=== PATIENT | female | born 1955 | race Caucasian/White ===

== ENCOUNTER 2021-06-18 16:42 | Emergency (ER) | payer OTHER, SELFPAY ==
[2021-06-18] VITALS (9 sets, daily range): BP systolic 155–164; BP diastolic 77–87; PULSE 72–147; RESP 16–24; TEMP 36.7; O2SAT 92–100
--- NOTE | ~2021-06-18 | CT_ITS ---
EXAMINATION: CTA chest PE protocol EXAM DATE: 06/18/2021 18:23 INDICATION: SOB, elevated dimer, covid patient under investigation. TECHNIQUE: Spiral CTA of the chest (pulmonary arteries) was performed with 100 cc Omnipaque 350 intr avenous contrast injection. Images were acquired during the pulmonary arterial phase. Coronal maxi mum intensity projection 3D-reconstructions were created by the technologist on dedicated workstation . Axial, coronal and sagittal reformatted images were reviewed. The dose-length product (DLP) for t his examination was 351.81 mGy-cm. The exposure was tailored according to patient size (auto mA exp osure control), and iterative reconstruction (ASIR) was used as additional dose reduction technique. There is no prior study for comparison. FINDINGS: Pulmonary arteries are well opacified and without intraluminal filling defects. No thora cic aortic dissection. There are sternotomy wires. There is anterior mediastinal fluid density region , some adjacent surgical clips. Probably chronic postoperative seroma. There is 5 mm left lower lobe nodule, image 66. There are no pleural or pericardial effusions. Tracheobronchial tree is patent. There is no mediastinal, hilar or axillary lymphadenopathy. There is no pneumothorax. Heart norm al in size. There is mild coronary arterial calcification, arterial sclerosis. There are cholecyst ectomy clips. There is thoracic spondylosis without osteoblastic or osteolytic lesions identified. IMPRESSION: 1. Left lower lobe 5 mm nodule; consider 6-12 month follow-up chest CT. 2. No pulmonary emboli or acute findings. Reviewed, dictated and finalized at location A. ICULTURIST
--- NOTE | ~2021-06-18 | XR_ITS ---
EXAMINATION: XR lumbar spine 2-3V EXAM DATE: 06/18/2021 18:34 INDICATION: Pulled Muscle In Back Thurs, Pain When Moving/Laying Back . TECHNIQUE: Lumber spine frontal, lateral, lateral L5-S1 projections for interpretation. There is no prior study for comparison. FINDINGS: There is L1 mild acute compression fracture at the superior endplate. Mild lumbar disc dise ase and up to moderate facet arthropathy. Contrast within the collecting system. There are cholecyste ctomy clips. IMPRESSION: 1. Mild acute compression fracture L1. 2. Mild disc disease, moderate arthropathy. Reviewed, dictated and finalized at location A. ANICAL PRODUCT ENGINEER
--- NOTE | ~2021-06-18 | XR_ITS ---
EXAMINATION: XR chest 1V portable EXAM DATE: 06/18/2021 17:34 INDICATION: Pt Has A Hard Time Breathing, exposed To COVID +. TECHNIQUE: Portable AP frontal chest x-ray was obtained. There is no prior study for comparison. FINDINGS: Pacemaker/AICD device. Sternotomy wires. No confluent consolidation, pneumothorax or pleura l effusion suspected. The cardiomediastinal silhouette is prominent but magnified on this AP techniqu e. IMPRESSION: No acute cardiopulmonary findings. Follow-up can be obtained if symptoms persist. Reviewed, dictated and finalized at location A. MENTAL METAL ERECTOR APPRENTICE IMPRESSION: No acute cardiopulmonary findings. Follow-up can be obtained if sym ptoms persist.
--- NOTE | 2021-06-18 16:55 | ECG_ITS ---
Measurements Intervals [place] Rate: 72 P: 48 MD: 139 QRS: -13 QRSD: 134 T: 115 QT: 458 QTc: 502 Interpretive Statements ATRIAL SENSE- ELECTRONIC VENTRICULAR PACEMAKER BASELINE ARTIFACT- II, III, AVR, AVF, V1, V3-V6 NO FURTHER INTERPRETATION IS POSSIBLE ATYPICAL ECG Electronically Signed On 06-18-2021 17:05:44 NEIGHBORHOOD WORKER by Stoney Ziegler D.O.
[2021-06-18 17:37] LABS: Basophils Absolute Auto 0.1 K/mm3 (0.0-0.1); Basophils Percent Auto 0.9 % (0.2-1.2); Eosinophils Absolute Auto 0.1 K/mm3 (0-0.3); Eosinophils Percent Auto 2.6 % (0-4.4); Hematocrit 32.2 % (37.0-47.0); Hemoglobin 10.2 g/dL (12.0-15.0); Immature Granulocyte Absolute 0.02 K/mm3 (0.00-0.031); Immature Granulocyte Percent A 0.4 % (0-0.5); Lymphocytes Absolute Auto 1.27 K/mm3 (0.9-3.2); Lymphocytes Percent Auto 23.3 % (18.3-44.2); Mean Corpuscular HGB Conc 31.7 g/dl (32-36); Mean Corpuscular Hemoglobin 27.3 pg (26-34); Mean Corpuscular Volume 86.1 fl (80-100); Mean Platelet Volume 11.1 fl (7.4-10.4); Monocytes Absolute Auto 0.5 K/mm3 (0.1-0.6); Neutrophils Absolute Auto 3.5 K/mm3 (1.3-6.7); Neutrophils Percent Auto 63.8 % (45.5-73.1); Platelet Count Result 207 k/mm3 (150-375); Red Blood Count 3.74 M/mm3 (4.2-5.4); Red Cell Distribution Width 14.8 % (11.5-14.5); White Blood Count 5.5 K/mm3 (4.5-10.0)
--- NOTE | 2021-06-18 17:39 | ED.SOB ---
HPI - SOB/Dyspnea General Chief Complaint: Shortness of Breath/Dyspnea Stated Complaint: wheezing and back pain Time Seen by Provider: 06/18/21 16:54 Source: patient Mode of arrival: ambulatory Limitations: no limitations History of Present Illness HPI Narrative: This is a 66-year-old female that presents to the emergency department for cold symptoms present over the last couple of days. Reports fever, cough and congestion. Reports her son recently tested positive for Covid. She is Covid vaccinated. Also reports she has been feeling short of breath and wheezing. Reports low back pain ongoing over the last week. No known recent trauma. Reports it started after lifting something. Worse with movement and relieved with rest. She has been taking Tylenol with some relief. Denies fever, chest pain, lower extremity edema, numbness, or weakness. Related Data Allergies Allergy/AdvReac Type Severity Reaction Status Date / Time acetaminophen [From Vicodin] Allergy Itching Verified 06/18/21 17:11 hydrocodone [From Vicodin] Allergy Itching Verified 06/18/21 17:11 atropine AdvReac Dizziness Verified 06/18/21 17:11 Sulfa (Sulfonamide AdvReac Vomiting Verified 06/18/21 17:11 Antibiotics) Review of Systems Review of Systems: CONSTITUTIONAL: Denies fever CARDIOVASCULAR: Denies chest pain, or edema. RESPIRATORY: Reports cough and dyspnea. MUSCULOSKELETAL: Reports back pain, joint pain, and myalgia. NEUROLOGIC: Denies numbness, or weakness. All systems reviewed & are unremarkable except as noted in HPI and below PMFSH Past Medical History Medical History (Updated 06/18/21 @ 20:44 by Abigail Hernandez PA-C) History of cardiac pacemaker Social History Social History (Updated 06/18/21 @ 20:34 by Abigail Hernandez PA-C) Smoking status: Current every day smoker Exam Narrative: GENERAL: Well-appearing, well-nourished, and in no acute distress. HEAD: Normocephalic, atraumatic. EYES: EOMI. ENT: Nares clear, no rhinorrhea or epistaxis. Mucous membranes moist. Oropharynx without tonsillar hypertrophy exudate or other lesions. Bilateral TMs pearly lieberman non-bulging NECK: Supple. No adenopathy or masses. CHEST: Clear to auscultation. No respiratory distress. No wheezes rales or rhonchi HEART: Regular rate and rhythm. No murmur heard. Normal peripheral pulses. EXTREMITIES: Normal range of motion. No edema. Strength equal in bilateral lower extremities (5/5) SKIN: Warm, dry, no rash. NEURO: No focal deficits. Alert and oriented x3. PSYCH: Normal mood and affect Course Vital Signs Vital signs: Vital Signs Temperature 98.1 F 06/18/21 16:48 Pulse Rate 72 06/18/21 16:48 Respiratory Rate 16 06/18/21 16:48 Blood Pressure 155/87 H 06/18/21 16:48 Pulse Oximetry 100 06/18/21 16:48 Temperature 98.1 F 06/18/21 16:48 Pulse Rate 105 H 06/18/21 19:47 Respiratory Rate 24 H 06/18/21 20:01 Blood Pressure 160/84 H 06/18/21 19:31 Pulse Oximetry 96 06/18/21 20:01 MDM - SOB/Dyspnea MDM Narrative Medical decision making narrative: This is a 66-year-old female that presents to the emergency department for cold symptoms present over the last couple of days. Also reporting low back pain. No recent trauma. She is neurovascularly intact. She is afebrile and nontoxic-appearing. Vitals are stable. Oxygen saturation is remained normal on room air. CBC shows normocytic anemia with hemoglobin of 10.2. Metabolic panel without concerning findings. Influenza screen was negative. SARS-CoV-2 was sent. D-dimer was elevated, so CTA of the chest was obtained. This was without evidence of PE or acute cardiopulmonary abnormality. Does show a 5 mm left lower lobe nodule. Recommend 6 to 12-month follow-up with CT chest. Lumbar spine x-ray shows a mild acute compression fracture of L1. Patient was updated on case findings. She was instructed on continued care of viral infection. Will be given pain management for follow-up of c
[2021-06-18] MEDS: ALBUTEROL SULFATE (*SP) AEROSOL 1 PUFF 2 PUFF INHALATION (17:44)
[2021-06-18 17:48] LABS: INR 1.2; Prothrombin Time 14.6 Seconds (11.1-14.7)
[2021-06-18 17:50] LABS: Lactic Acid Reflex 0.9 mmol/L (0.7-2.1)
[2021-06-18 17:51] LABS: D Dimer 0.82 ug/mL (<0.48)
[2021-06-18 17:53] LABS: Alanine Aminotransferase 35 U/L (4-35); Albumin Level 4.1 g/dL (3.5-5.1); Alkaline Phosphatase 112 U/L (38-126); Anion Gap 11 mmol/L (8-16); Aspartate Amino Transferase 32 U/L (14-36); Bilirubin,Total 0.2 mg/dL (0.2-1.3); Blood Urea Nitrogen 11 mg/dL (7-17); CRP 2.6 mg/dL (<1.0); Calcium 9.1 mg/dL (8.4-10.2); Carbon Dioxide 21 mmol/L (22-30); Chloride 106 mmol/L (98-107); Estimated CRCL calculation 57 ml/min; Estimated Glomerular Filt Rate > 60; Glucose 103 mg/dL (65-110); Lactate Dehydrogenase 579 U/L (313-618); Potassium 3.7 mmol/L (3.4-5.0); Sodium 138 mmol/L (137-145)
[2021-06-18] MEDS: CYCLOBENZAPRINE HCL 10 MG TABLET PO (18:49)
--- NOTE | 2021-06-18 19:11 | PC.NURSE ---
Report to MARIA DE JESUS Fried, to continue care.
--- NOTE | 2021-06-18 20:22 | PC.NURSE ---
per Abigail RESENDIZ pts heart rate of 147 that was charted prior to my shift was inaccurate.
[2021-06-18] MEDS: HYDROcodone/acetaminophen (*CRX) 5-325 MG TABLET 1 TAB PO (20:59)
[2021-06-20 14:20] LABS: SARS-CoV-2 RNA PCR Positive
== END 2021-06-18 21:27 | disposition home or self-care (01) ==
PROVIDERS: Physician Assistant; Emergency Provider Emergency Medicine
DX: U07.1 COVID-19 (principal); S32.010A Wedge compression fracture of first lumbar vertebra, initial encounter for closed fracture; R91.1 Solitary pulmonary nodule; Z95.0 Presence of cardiac pacemaker; X50.0XXA Overexertion from strenuous movement or load, initial encounter
CPT/HCPCS: 36415; 71045; 71275; 72100; 80053; 82728; 83605; 83615; 85025; 85380; 85610; 85730; 86140; 87804; 93005; 99284; A9270; C9803; Q9967; U0003; U0005

== ENCOUNTER → 2021-07-07 13:18 | Outpatient (CLI) | payer OTHER, SELFPAY ==
--- NOTE | ~2021-07-07 | CT_ITS ---
EXAMINATION: CT lumbar spine wo narayan EXAM DATE: 07/07/2021 13:36 INDICATION: Closed fracture of first lumbar vertebra, other low back pain. TECHNIQUE: Spiral CT lumbar spine was performed without contrast. Axial, coronal and sagittal images of the lumbar spine were reviewed. The dose-length product (DLP) for this examination was 817.10 mGy- cm. The exposure was tailored according to patient size (auto mA exposure control), and iterative re construction (ASIR) was used as additional dose reduction technique. There is no prior study for cherie richards. FINDINGS: There is mild to moderate burst fracture of the L1 vertebral body at the superior endplate, appears to have lost a few more millimeters of height anteriorly compared to previous exam, and evid ence of posterior cortex involvement, but only about 2 mm of retropulsion along the right side. There is sclerosis of the fracture site indicating some reparative response. No other fractures identified . The vertebral bodies are aligned in the AP dimension. Moderate lumbar facet arthropathy at L4-5 and L5-S1, mild at the upper lumbar levels. L5-S1 has moderate bilateral neural foraminal stenosis, no m ore than mild stenosis at the other lumbar levels and the central canal. Mild disc bulges. Sacrum is intact. IMPRESSION: 1. Mild progression in mild to moderate loss of L1 vertebral body height anteriorly, and minimal retr opulsion making this burst type fracture. Development of mild sclerosis, some reparative healing resp onse. 2. L5-S1 moderate bilateral neural foraminal stenosis. Reviewed, dictated and finalized at location A. ICAL RESOURCE MANAGER IMPRESSION: 1. Mild progression in mild to moderate loss of L1 vertebral body height anteri lawrence, and minimal retropulsion making this burst type fracture. Development of mild sclerosis, some reparative healing response. 2. L5-S1 moderate bilateral neural foraminal stenosis.
== END ==
PROVIDERS: Visit Provider Nurse Practitioner Family
DX: S32.019A Unspecified fracture of first lumbar vertebra, initial encounter for closed fracture (principal); X58.XXXA Exposure to other specified factors, initial encounter
CPT/HCPCS: 72131

== ENCOUNTER 2021-09-14 00:17 | Day surgery (SDC) | payer OTHER, SELFPAY ==
[2021-09-13 14:03] VITALS: BMI 28.4
[2021-09-14 07:35] VITALS: BP 149/72; PULSE 60; RESP 16; TEMP 36.4; O2SAT 97; BMI 29.0
--- NOTE | 2021-09-14 08:37 | WPDANESEPPF ---
Anes - Initial Pre Proc Eval Procedure: Operation Date: 09/14/21 08:30 Proposed Procedures p Trans Esophageal Echo - Vic Sal MD Date/Time: 09/14/21 08:37 Surgeon: Vic Sal MD Pre Op Diagnosis: severe prosthetic av stenosis Patient Data Age: 66 Gender: F Height: 1.57 m Weight: 71.9 kg Last Vital Signs Temp 36.4 C L 09/14/21 07:35 Pulse 60 09/14/21 07:35 Resp 16 09/14/21 07:35 BP 149/72 H 09/14/21 07:35 Pulse Ox 97 09/14/21 07:35 Allergies Allergy/AdvReac Type Severity Reaction Status Date / Time hydrocodone [From Vicodin] Allergy Itching Verified 09/14/21 07:25 atropine AdvReac Dizziness Verified 09/14/21 07:25 Sulfa (Sulfonamide AdvReac Vomiting Verified 09/14/21 07:25 Antibiotics) Home Medications Medication Instructions Recorded Confirmed Type apixaban [Eliquis] 5 mg PO DAILY 09/13/21 09/14/21 History carvedilol 12.5 mg PO DAILY 09/13/21 09/14/21 History cyclobenzaprine 10 mg PO PRN PRN 09/13/21 09/13/21 History fluticasone propionate [Flonase] 50 mcg INTRANASAL DAILY 09/13/21 09/14/21 History furosemide 20 mg PO DAILY 09/13/21 09/14/21 History lisinopril 5 mg PO DAILY 09/13/21 09/14/21 History pantoprazole 40 mg PO DAILY 09/13/21 09/14/21 History rosuvastatin 40 mg PO DAILY 09/13/21 09/14/21 History fluoxetine 30 mg PO DAILY 09/14/21 09/14/21 History Patient hx anesthesia problems: none Family hx anesthesia problems: none Results Review: All pre-operative results and documents have been reviewed as part of the pre-operative evaluation. COUNTS INCLUDE 234 BEDS AT THE [facility] Past Medical History Medical History (Updated 09/14/21 @ 08:40 by Star Stone MD) Atrial fibrillation Cardiomyopathy History of cardiac pacemaker HTN (hypertension) Hyperlipidemia Overweight (BMI 25.0-29.9) Pacemaker Surgical History Surgical History (Updated 09/14/21 @ 08:40 by Star Stone MD) AICD (automatic cardioverter/defibrillator) present S/P AVR (aortic valve replacement) Social History Social History (Updated 06/18/21 @ 20:34 by Abigail Hernandez PA-C) Smoking status: Current every day smoker Anes - Eval Final PreProcedure Day of Procedure 09/14/21 08:37 Patient weight: overweight Heart: regular rate and rhythm Lungs: clear to auscultation and normal air movement Airway: Mallampati scale class II Neurological: alert and oriented Last oral intake: >/= 8 hours ASA classification: IV Emergent: no Anesthetic plan: proceed Anesthesia type and monitoring: general GIVS Results Review: All pre-operative results and documents have been reviewed as part of the pre-operative evaluation. Informed Consent: The patient's anesthetic plan and its attendant risks and benefits were discussed with the patient/family/POA. Questions were solicited and answers provided to the satisfaction of the patient/family/POA.
--- NOTE | 2021-09-14 09:09 | SUR.OPER ---
bubble study performed during NEVAEH
--- NOTE | 2021-09-14 09:16 | SUR.OPER ---
NEVAEH probe out at [id number], procedure continued with surface echocardiogram. Anesthesia remains at bedside providing monitoring and assistance with respirations.
[2021-09-14 09:32] VITALS: BP 105/51; PULSE 74; RESP 18; O2SAT 98
[2021-09-14 09:42] VITALS: BP 92/43; PULSE 90; RESP 14; O2SAT 96
--- NOTE | 2021-09-14 09:46 | WPDHPUPDATE1 ---
History and Physical Update Update Date/Time: 09/14/21 08:30 History and Physical has been reviewed, including an updated exam of the patient. There are NO changes in the patient's condition. Risks, benefits, and alternatives have been discussed and questions answered. Patient agrees to proceed with procedure.
--- NOTE | 2021-09-14 09:47 | WPDTEECHO ---
NEVAEH TransEsophageal Echocardiogram Date of procedure: 09/14/21 Procedure Type: Transesophageal echocardiogram Diagnosis: Shortness of breath, prosthetic aortic valve stenosis Indications: Shortness of breath, prosthetic aortic valve stenosis Image Quality: Acceptable Findings: Brief history present illness: Patient is a pleasant 66-year-old female with a past medical history significant for bicuspid aortic valve stenosis status post 21 mm Inspiris Resilia bioprosthetic aortic valve in 2019, LBBB, nonischemic cardiomyopathy status post biventricular pacemaker, history of tobacco abuse, hypertension, hyperlipidemia who recently established care with complaints of shortness of breath found to have an abnormal murmur on exam for which a 2D echocardiogram was obtained. Abnormal velocities were appreciated with 4.9 m/sec mean gradient 54 mm Hg calculated valve area 0.8 centimeters squared. Upon return to the office she complained of worsening shortness of breath, fatigue decreased activity tolerance for which she was referred for transesophageal echocardiogram for further evaluation. Procedure in detail: After verbal and written informed consent was obtained the patient risks, benefits, and alternatives explained in detail the patient agreed to proceed with the plan of care as outlined above. The patient was evaluated at bedside in the gastroenterology procedure room. The posterior oropharynx, neck, and jaw angle all within normal limits on examination. Lungs were clear to auscultation. See pre-sedation note for further details The patient was then placed in the appropriate 30 to 45 degree angle supine position at a slight left lateral decubitus position. Patient was monitored throughout the study with telemetry, oxygen saturation, end-tidal CO2 monitoring, blood pressure, heart rate, and respirations. The posterior hypopharynx was then locally anesthetized using a single administration of Hurricaine spray. After the oral bite block placed and adequate sedation administered by Anesthesiology, the transesophageal echocardiogram probe was advanced through the oral bite block into the posterior hypopharynx and into the esophagus easily and without complication. Multiple, multiplanar echocardiographic images were obtained in multiple standard re- projections. Pulsed wave, continuous-wave, and color-flow Doppler were utilized in conjunction with this study. At the conclusion of the study, the transesophageal echocardiogram probe was removed easily and without complication. Patient was in ventricular paced rhythm with intermittent AV paced. Please see Anesthesiology documentation for further details. Moderate Sedation/Anesthesia administration: Patient reports no prior problems with sedation/anesthesia. Please see Anesthesiology documentation for details and protocols. There were no other issues or complications and patient tolerated the procedure well. See post-anesthesia documentation. FINDINGS: LEFT VENTRICLE: Size was within normal limits without significant wall motion abnormalities. Hyperdynamic LV systolic function with visually estimated ejection fraction of 75%. Mild to moderate concentric left ventricular hypertrophy. RIGHT VENTRICLE: Size and systolic function within normal limits. Linear artifact in right ventricle consistent with pacemaker lead. LEFT ATRIUM: Mild enlargement. RIGHT ATRIUM: Normal size. Linear artifact consistent with pacemaker lead. Remnant eustachian valve noted, normal variant. INTERATRIAL SEPTUM: Interatrial septum is anatomically normal without evidence of shunt with color-flow Doppler nor with injection of agitated saline with and without Valsalva. Late crossing of bubbles consistent with extracardiac shunt. MITRAL VALVE: Mitral valve is anatomically normal with preserved leaflet excursion, mild thickening, [id number] mitral annular calcification, and moderate regurgitation. AORTIC VALVE: Bioprosthetic va
[2021-09-14 09:52] VITALS: BP 105/52; PULSE 90; RESP 16; O2SAT 98
[2021-09-14 10:02] VITALS: BP 134/66; PULSE 60; RESP 19; O2SAT 96
[2021-09-14 10:12] VITALS: BP 135/76; PULSE 60; RESP 20; O2SAT 96
== END 2021-09-14 11:12 | disposition home or self-care (01) ==
PROVIDERS: Visit Provider Internal Medicine Cardiovascular Disease
PROC: (CPT 93312; principal; 2021-09-14 08:30)
DX: I35.0 Nonrheumatic aortic (valve) stenosis (principal); R06.02 Shortness of breath; I34.0 Nonrheumatic mitral (valve) insufficiency; I36.1 Nonrheumatic tricuspid (valve) insufficiency; I48.0 Paroxysmal atrial fibrillation; I27.20 Pulmonary hypertension, unspecified; E78.2 Mixed hyperlipidemia; I25.10 Atherosclerotic heart disease of native coronary artery without angina pectoris; I11.0 Hypertensive heart disease with heart failure; I50.20 Unspecified systolic (congestive) heart failure; Z95.0 Presence of cardiac pacemaker; Z95.2 Presence of prosthetic heart valve; Z79.01 Long term (current) use of anticoagulants; F17.210 Nicotine dependence, cigarettes, uncomplicated
CPT/HCPCS: 93312; 93320; 93325; J2704

== ENCOUNTER 2022-01-18 13:27 | Inpatient (IN) | payer MEDICARE, OTHER, SELFPAY ==
--- NOTE | ~2022-01-18 | CT_ITS ---
EXAMINATION: CT abdomen pelvis wo con DATE: 01/24/2022 08:23 INDICATION: Nausea and vomiting. TECHNIQUE: Computed tomography (CT) of the abdomen and pelvis was performed without intravenous contr ast. Automated exposure control and iterative reconstruction technique were employed. The dose-length product was 505.47 mGy-cm. COMPARISON: Chest CT 06/18/2021 FINDINGS: There is mild emphysema. There are trace right and small left pleural effusions. There is d ependent atelectasis bilaterally. The heart size is normal. There are pacer wires in right atrium, ri ght ventricle, and coronary sinus. There is a small pericardial effusion. There are changes of median sternotomy. The liver is normal. There are changes of cholecystectomy. There is a gastrostomy tube i n expected position. The spleen, pancreas, adrenal glands, and kidneys are normal. There is no urolit hiasis. No dilated loops of bowel. There is diverticulosis of the colon without evidence of diverticu litis. The appendix is normal. There are no pathologically enlarged lymph nodes. There is trace pelvi c ascites. There is a 7.3 x 5.8 cm hematoma superficial to left common femoral artery. There is a sma ll hematoma superficial to right common femoral artery. There is a 12 mm subcutaneous mass in left an terior abdomen, likely an injection site. There is a chronic burst fracture of L1 with changes of carline tebroplasty. IMPRESSION: 1. Small left pleural effusion. 2. Small pericardial effusion. 3. Hematomas superficial to the common femoral arteries, left larger than right. Reviewed, dictated and finalized at location A. IMPRESSION: 1. Small left pleural effusion. 2. Small pericardial effusion. 3. Hematomas superficial to the common femoral arteries, left larger than right .
[2022-01-18 13:30] VITALS: BP 160/91; PULSE 85; RESP 18; TEMP 36.6; O2SAT 97
--- NOTE | 2022-01-18 13:30 | ADMGEN ---
This patient, Kendal Junior, was admitted to 2nd Floor Room 207-2. Patient/family oriented to hospital policies and general routines including ID bracelet, bed and alarms, visiting hours, pain management, procedures, bathroom and other care routines, personal items, smoking policy, room service/diet, and visiting hours. Information on how to activate the Rapid Response Team has been discussed. Patient/Family are encouraged to report perceived risks to care and to ask questions if they do not understand what they are told or what they should do.
[2022-01-18 14:33] VITALS: BMI 28.6
--- NOTE | 2022-01-18 15:13 | ECG_ITS ---
Measurements Intervals [place] Rate: 85 P: 150 ME: 204 QRS: -25 QRSD: 114 T: 128 QT: 397 QTc: 473 Interpretive Statements ELECTRONIC ATRIAL PACEMAKER ELECTRONIC VENTRICULAR PACEMAKER BASELINE ARTIFACT- I, II, NO FURTHER INTERPRETATION IS POSSIBLE ATYPICAL ECG Electronically Signed On 01-18-2022 19:49:22 CDT by Stoney Ziegler D.O.
--- NOTE | 2022-01-18 17:24 | PC.NURSE ---
Pt arrived from transferring facility with two IV's. One in left hand dated 12/19 and one in left wrist dated 12/17. Both were removed at admission.
[2022-01-18] MEDS: SENNOSIDES 8.6 MG TABLET PO (17:37)
[2022-01-18] MEDS: WARFARIN (*PBKC) 2.5 MG TABLET PO (17:38)
[2022-01-18 20:46] VITALS: PULSE 78
[2022-01-18] MEDS: carvediloL 3.125 MG TABLET PO (20:46)
[2022-01-18] MEDS: traZODone HCL 50 MG TABLET PO (20:46)
[2022-01-18] MEDS: guaiFENesin 12 HR 600 MG TABCR PO (20:47)
[2022-01-18] MEDS: MIRTAZAPINE 7.5 MG TABLET PO (20:47)
[2022-01-18 23:37] VITALS: BP 141/65; PULSE 84; RESP 16; TEMP 36.7; O2SAT 98
[2022-01-19] VITALS (7 sets, daily range): BP systolic 151–165; BP diastolic 78–84; PULSE 85–86; RESP 16; TEMP 36.6–37; O2SAT 96–99
[2022-01-19 05:10] LABS: Hematocrit 31.3 % (35.0-42.0); Hemoglobin 9.7 g/dL (11.7-13.8); Mean Corpuscular Hemoglobin 30.9 pg (27.0-31.0); Mean Corpuscular Volume 99.7 fL (78.0-102.0); Mean Platelet Volume 9.7 fl (9.2-11.8); Platelet Count Result 208 K/mm3 (150-420); Red Blood Count 3.14 M/mm3 (4.20-5.40); Red Cell Distribution Width 15.7 % (11.6-14.4); White Blood Count 5.9 K/mm3 (4.8-10.8)
[2022-01-19 05:23] LABS: INR 2.1; Prothrombin Time 21.3 Seconds (9.50-12.10)
[2022-01-19 05:46] LABS: Alanine Aminotransferase 24 U/L (14-59); Albumin Level 2.6 g/dL (3.4-5.0); Alkaline Phosphatase 91 U/L (46-116); Anion Gap 4 mmol/L (8-16); Aspartate Amino Transferase 14 U/L (15-37); Bilirubin,Total 0.3 mg/dL (0.00-1.00); Blood Urea Nitrogen 10 mg/dL (7-18); Calcium 8.9 mg/dL (8.5-10.1); Carbon Dioxide 33 mmol/L (21-32); Chloride 104 mmol/L (98-108); Estimated CRCL calculation 67 ml/min; Estimated Glomerular Filt Rate > 60; Glucose 82 mg/dL (70-99); Magnesium 1.9 mg/dL (1.8-2.4); Osmolality Calculated 290 mOsm/kg (285-295); Potassium 3.8 mmol/L (3.5-5.1); Sodium 141 mmol/L (136-145); Total Protein 6.5 g/dL (6.4-8.2)
[2022-01-19] MEDS: SERTRALINE HCL 50 MG TABLET 100 MG PO (08:24)
[2022-01-19] MEDS: SENNOSIDES 8.6 MG TABLET PO ×2 (08:25→17:09)
[2022-01-19] MEDS: AMIODARONE HCL 200 MG TABLET PO (08:25)
[2022-01-19] MEDS: PANTOPRAZOLE 40 MG TABLET PO (08:26)
[2022-01-19] MEDS: SPIRONOLACTONE 25 MG TABLET PO (08:26)
[2022-01-19] MEDS: carvediloL 3.125 MG TABLET PO (08:27)
[2022-01-19] MEDS: guaiFENesin 12 HR 600 MG TABCR PO ×2 (08:27→21:25)
--- NOTE | 2022-01-19 09:59 | PM.IMHP ---
H&P: HPI History of Present Illness Date/Time: 01/19/22 09:59 Chief Complaint: Rehab Narrative: This is a 67-year-old female that presented to [facility] for surgical evaluation of aortic stenosis. Patient has a past medical history of previous aortic valve replacement done in 2019,, A. fib, left bundle block branch, dyslipidemia, and tobacco abuse. Dr. Moore completed a redo sternotomy, mechanical composite root replacement w/ IABP insertion. Patient was later intubated and placed on vasopressors. Afterwards she had V. fib arrest which required 3 defibrillations. A bedside NEVAEH demonstrated severe right ventricle dysfunction. At that time she was taken to the cardiac cath she was cannulated on VA ECMO in the Editorial Project Manager. PCI was unsuccessful. She was then taken back to the OR for CABG x1, SVG to RCA. Postoperative she developed complications by hemorrhagic shock requiring multiple transfusion and chest washouts. She also developed severe mitral regurgitation postoperatively VA ECMO was converted toR-ECMO. Most recent NEVAEH on 12/11/2021 demonstrated normal biventricular systolic function with grade 3/4 diastolic dysfunction. She was also treated for Moraxella pneumonia with a 14-day course of Rocephin which was completed on 12/16/2021 she also underwent a washout in the right groin due to fluid collection on 12/12/2021.. During her hospital stay patient was pegged and trached. Her trach site has closed off she continues to have the PEG which is not being used. Labs from the outside hospital WBC 7.4 hemoglobin 9.8, hematocrit 31.1, platelets 219, INR 2.4, sodium 137, potassium 4.1, BUN 10, creatinine 0.56, glucose 100 [facility] Past Medical History Medical History (Updated 01/19/22 @ 10:39 by DEBBI North-C) Atrial fibrillation Cardiomyopathy History of cardiac pacemaker HTN (hypertension) Hyperlipidemia Overweight (BMI 25.0-29.9) Pacemaker Surgical History Surgical History (Updated 09/14/21 @ 08:40 by Star Stone MD) AICD (automatic cardioverter/defibrillator) present S/P AVR (aortic valve replacement) Social History Social History (Updated 06/18/21 @ 20:34 by Abigail Hernandez PA-C) Smoking status: Former smoker Alcohol intake: current Substance use: current Substance use type: marijuana Spiritual care concerns: No Meds Home Medications and Allergies Home Medications Medication Instructions Recorded Confirmed Type pantoprazole 40 mg tablet,delayed 40 mg PO DAILY 09/13/21 01/18/22 History release acetaminophen 325 mg tablet 650 mg Q6-8H PRN Pain, Mild 01/18/22 01/18/22 History amiodarone 200 mg tablet 200 mg PO DAILY 01/18/22 01/18/22 History benzonatate 100 mg capsule 100 mg PO TID PRN Cough 01/18/22 01/18/22 History calcium carbonate 500 mg calcium 500 mg PO TID PRN Heartburn 01/18/22 01/18/22 History (1,250 mg) chewable tablet carvedilol 3.125 mg tablet (Coreg) 3.125 mg PO Q12H 01/18/22 01/18/22 History guaifenesin 600 mg tablet, 600 mg PO Q12H 01/18/22 01/18/22 History extended release 12 hr hydroxyzine HCl 50 mg tablet 50 mg PO TID PRN Anxiety 01/18/22 01/18/22 History mirtazapine 7.5 mg tablet 7.5 mg PO HS 01/18/22 01/18/22 History ondansetron 4 mg disintegrating 4 mg PO Q6H PRN Nausea 01/18/22 01/18/22 History tablet oxycodone 5 mg tablet 5 mg PO Q6H PRN Pain (Scale Score 01/18/22 01/18/22 History 4-6) sennosides 8.6 mg tablet (Senokot) 8.6 mg QAM AND QHS 01/18/22 01/18/22 History sertraline 100 mg tablet 100 mg PO DAILY 01/18/22 01/18/22 History spironolactone 25 mg tablet 25 mg PO DAILY 01/18/22 01/18/22 History (Aldactone) warfarin 2.5 mg tablet 2.5 mg PO DAILY 01/18/22 01/18/22 History Allergies Allergy/AdvReac Type Severity Reaction Status Date / Time atorvastatin Allergy Unknown Verified 01/18/22 15:13 hydrocodone [From Vicodin] Allergy Itching Verified 09/14/21 07:25 atropine AdvReac Dizziness Verified 09/14/21 07:25 Sulfa (Sulfonamide AdvReac Vo
[2022-01-19] MEDS: WARFARIN (*PBKC) 2.5 MG TABLET PO (17:08)
[2022-01-19] MEDS: ACETAMINOPHEN 500 MG TABLET 1000 MG PO (19:24)
[2022-01-19] MEDS: MIRTAZAPINE 7.5 MG TABLET PO (21:25)
[2022-01-19] MEDS: carvediloL 6.25 MG TABLET PO (21:26)
[2022-01-19] MEDS: traZODone HCL 50 MG TABLET PO (21:31)
--- NOTE | 2022-01-19 22:23 | PC.NURSE ---
Wound care orders indicated dressing changes are to be completed every day. Dates on dressing indicated that last dressing change was completed on the . Wounds included peg tube sight, bilateral groin, and right upper thigh. Peg tube sight had small amount of drainage, was cleaned, and dressing change completed. Groin wound on right side appeared to be mostly healed, and a telfa pad was placed and taped in place over this site. Groin wound on left side had a small pinpoint area in the center of the wound covered with white eschar. A wet to dry dressing was placed over that area, covered by a 2X2 dry gauze pad, with a telfa pad over that, and a tegaderm dressing placed over the whole thing. The area around the wound was very hard. The right thigh wound was healed. A telfa pad was taped in place over the area, for protection.
[2022-01-20] VITALS (7 sets, daily range): BP systolic 136–154; BP diastolic 72–86; PULSE 85–86; RESP 16–18; TEMP 36.4–37.1; O2SAT 98–99
[2022-01-20 05:39] LABS: INR 1.9; Prothrombin Time 19.3 Seconds (9.50-12.10)
--- NOTE | 2022-01-20 07:26 | PM.EVENT ---
Event Note Event Note Event Note: Patient INR 1.2. Gave an additional dose of 2.5 one-time we will monitor INR. Will not increase warfarin at this time patient was supratherapeutic at previous hospital. Patient recently admitted to our swing bed. Possible cause could be due to missed dose.
[2022-01-20] MEDS: WARFARIN (*PBKC) 2.5 MG TABLET PO ×2 (08:03→16:51)
[2022-01-20] MEDS: SPIRONOLACTONE 25 MG TABLET PO (08:04)
[2022-01-20] MEDS: SENNOSIDES 8.6 MG TABLET PO ×2 (08:04→16:51)
[2022-01-20] MEDS: SERTRALINE HCL 50 MG TABLET 100 MG PO (08:04)
[2022-01-20] MEDS: PANTOPRAZOLE 40 MG TABLET PO (08:04)
[2022-01-20] MEDS: guaiFENesin 12 HR 600 MG TABCR PO ×2 (08:05→20:38)
[2022-01-20] MEDS: AMIODARONE HCL 200 MG TABLET PO (08:05)
[2022-01-20] MEDS: carvediloL 6.25 MG TABLET PO ×2 (08:05→20:33)
--- NOTE | 2022-01-20 10:22 | PC.NURSE ---
Hospitalist contacted regarding passenger conductor recommendation
[2022-01-20] MEDS: MIRTAZAPINE 7.5 MG TABLET PO (20:38)
[2022-01-21 05:21] LABS: INR 1.7; Prothrombin Time 17.7 Seconds (9.50-12.10)
[2022-01-21 06:35] VITALS: O2SAT 98
[2022-01-21 08:00] VITALS: BP 147/68; PULSE 87; RESP 24; TEMP 36.2; O2SAT 98
[2022-01-21] MEDS: SERTRALINE HCL 50 MG TABLET 100 MG PO (08:54)
[2022-01-21 08:55] VITALS: PULSE 87
[2022-01-21] MEDS: AMIODARONE HCL 200 MG TABLET PO (08:55)
[2022-01-21] MEDS: SPIRONOLACTONE 25 MG TABLET PO (08:55)
[2022-01-21] MEDS: carvediloL 6.25 MG TABLET PO ×2 (08:55→21:07)
[2022-01-21] MEDS: SENNOSIDES 8.6 MG TABLET PO (08:55)
[2022-01-21] MEDS: PANTOPRAZOLE 40 MG TABLET PO (08:55)
[2022-01-21] MEDS: guaiFENesin 12 HR 600 MG TABCR PO ×2 (08:55→21:07)
[2022-01-21 16:00] VITALS: BP 145/64; PULSE 88; RESP 18; TEMP 36.6; O2SAT 96
--- NOTE | 2022-01-21 18:07 | PC.NURSE ---
[id number] Grey, PICKLING SOLUTION MAKER/Hospitalist, notified that patient has had emisis. New order received.
[2022-01-21] MEDS: WARFARIN (*PBKC) 5 MG TABLET PO (18:19)
[2022-01-21 20:00] VITALS: O2SAT 98
[2022-01-21] MEDS: MIRTAZAPINE 7.5 MG TABLET PO (21:07)
[2022-01-21 23:29] VITALS: BP 129/77; PULSE 86; RESP 16; TEMP 36.4; O2SAT 99
[2022-01-22] VITALS (8 sets, daily range): BP systolic 138–143; BP diastolic 70–74; PULSE 82–87; RESP 18–20; TEMP 36.4; O2SAT 94–97
[2022-01-22 05:19] LABS: INR 1.8; Prothrombin Time 18.8 Seconds (9.50-12.10)
[2022-01-22] MEDS: guaiFENesin 12 HR 600 MG TABCR PO ×2 (09:15→21:08)
[2022-01-22] MEDS: AMIODARONE HCL 200 MG TABLET PO (09:15)
[2022-01-22] MEDS: SPIRONOLACTONE 25 MG TABLET PO (09:15)
[2022-01-22] MEDS: PANTOPRAZOLE 40 MG TABLET PO (09:15)
[2022-01-22] MEDS: SERTRALINE HCL 50 MG TABLET 100 MG PO (09:16)
[2022-01-22] MEDS: carvediloL 6.25 MG TABLET PO ×2 (09:16→21:08)
[2022-01-22] MEDS: SENNOSIDES 8.6 MG TABLET PO (17:35)
[2022-01-22] MEDS: WARFARIN (*PBKC) 5 MG TABLET PO (17:35)
[2022-01-22] MEDS: MIRTAZAPINE 7.5 MG TABLET PO (21:08)
[2022-01-22] MEDS: traZODone HCL 50 MG TABLET PO (22:10)
[2022-01-23] VITALS (9 sets, daily range): BP systolic 129–150; BP diastolic 70–90; PULSE 80–88; RESP 16–18; TEMP 36.1–36.4; O2SAT 93–100
[2022-01-23 06:03] LABS: INR 1.9; Prothrombin Time 19.8 Seconds (9.50-12.10)
--- NOTE | 2022-01-23 08:36 | PM.EVENT ---
Event Note Event Note Event Note: Patient concerned about lower extremity swelling bilaterally. Will start Lasix 40 mg daily. Instructed patient to elevate legs while in a chair and also at nighttime. Also will monitor patient's renal function which is within normal limits now.
[2022-01-23 08:38] LABS: Hematocrit 32.4 % (35.0-42.0); Hemoglobin 10.1 g/dL (11.7-13.8); Mean Corpuscular HGB Conc 31.2 g/dL (32.0-36.0); Mean Corpuscular Hemoglobin 31.1 pg (27.0-31.0); Mean Corpuscular Volume 99.7 fL (78.0-102.0); Mean Platelet Volume 10.4 fl (9.2-11.8); Platelet Count Result 200 K/mm3 (150-420); Red Blood Count 3.25 M/mm3 (4.20-5.40); Red Cell Distribution Width 15.4 % (11.6-14.4); White Blood Count 5.3 K/mm3 (4.8-10.8)
[2022-01-23] MEDS: carvediloL 6.25 MG TABLET PO ×2 (08:45→21:14)
[2022-01-23] MEDS: PANTOPRAZOLE 40 MG TABLET PO (08:46)
[2022-01-23] MEDS: AMIODARONE HCL 200 MG TABLET PO (08:46)
[2022-01-23] MEDS: guaiFENesin 12 HR 600 MG TABCR PO ×2 (08:46→21:14)
[2022-01-23] MEDS: ACETAMINOPHEN 500 MG TABLET 1000 MG PO (08:46)
[2022-01-23] MEDS: SPIRONOLACTONE 25 MG TABLET PO (08:46)
[2022-01-23] MEDS: SERTRALINE HCL 50 MG TABLET 100 MG PO (08:46)
[2022-01-23 08:49] LABS: Alanine Aminotransferase 20 U/L (14-59); Albumin Level 2.6 g/dL (3.4-5.0); Alkaline Phosphatase 80 U/L (46-116); Anion Gap 5 mmol/L (8-16); Aspartate Amino Transferase 13 U/L (15-37); Bilirubin,Total 0.3 mg/dL (0.00-1.00); Blood Urea Nitrogen 12 mg/dL (7-18); Calcium 8.8 mg/dL (8.5-10.1); Carbon Dioxide 30 mmol/L (21-32); Chloride 103 mmol/L (98-108); Estimated CRCL calculation 68 ml/min; Estimated Glomerular Filt Rate > 60; Glucose 88 mg/dL (70-99); Osmolality Calculated 284 mOsm/kg (285-295); Potassium 3.7 mmol/L (3.5-5.1); Sodium 138 mmol/L (136-145); Total Protein 6.4 g/dL (6.4-8.2)
[2022-01-23] MEDS: WARFARIN (*PBKC) 5 MG TABLET PO ×2 (08:50→16:44)
[2022-01-23] MEDS: FUROSEMIDE 40 MG TABLET PO (09:17)
[2022-01-23] MEDS: SENNOSIDES 8.6 MG TABLET PO ×2 (09:17→16:46)
[2022-01-23] MEDS: POTASSIUM CHLORIDE 10 MEQ TABLET PO (09:17)
[2022-01-23] MEDS: ONDANSETRON HCL ODT 4 MG TABLET PO (16:05)
[2022-01-23] MEDS: traZODone HCL 50 MG TABLET PO (21:14)
[2022-01-23] MEDS: MIRTAZAPINE 7.5 MG TABLET PO (21:14)
[2022-01-24 05:52] VITALS: O2SAT 91
[2022-01-24 06:23] LABS: INR 2.9; Prothrombin Time 29.3 Seconds (9.50-12.10)
[2022-01-24 06:26] LABS: Alanine Aminotransferase 20 U/L (14-59); Albumin Level 2.5 g/dL (3.4-5.0); Alkaline Phosphatase 81 U/L (46-116); Anion Gap 4 mmol/L (8-16); Aspartate Amino Transferase 11 U/L (15-37); Bilirubin,Total 0.2 mg/dL (0.00-1.00); Blood Urea Nitrogen 13 mg/dL (7-18); Calcium 8.8 mg/dL (8.5-10.1); Carbon Dioxide 32 mmol/L (21-32); Chloride 106 mmol/L (98-108); Estimated CRCL calculation 72 ml/min; Estimated Glomerular Filt Rate > 60; Glucose 91 mg/dL (70-99); Osmolality Calculated 294 mOsm/kg (285-295); Potassium 3.7 mmol/L (3.5-5.1); Sodium 142 mmol/L (136-145); Total Protein 6.1 g/dL (6.4-8.2)
[2022-01-24] MEDS: ONDANSETRON HCL ODT 4 MG TABLET PO ×2 (06:31→11:49)
--- NOTE | 2022-01-24 06:49 | P.PNCROSS_ITS ---
Event Note Event Note Event Note: Patient INR currently 2.9 yesterday 1.9. Will closely monitor to make sure pat ient is not supratherapeutic as she was in the previous hospital.
--- NOTE | 2022-01-24 06:49 | PM.EVENT ---
Event Note Event Note Event Note: Patient INR currently 2.9 yesterday 1.9. Will closely monitor to make sure patient is not supratherapeutic as she was in the previous hospital.
--- NOTE | 2022-01-24 06:52 | PM.EVENT ---
Event Note Event Note Event Note: Patient bilateral lower extremities have decreased with the use of Lasix and ROMERO hose. We will continue to monitor
--- NOTE | 2022-01-24 07:19 | PM.EVENT ---
Event Note Event Note Event Note: Received report that patient has had nausea and vomiting yesterday she was given Zofran along with Pepcid. Today she is still experiencing nausea we will order a COVID test and start Reglan.
[2022-01-24 07:57] VITALS: BP 127/82; PULSE 86; RESP 16; TEMP 36.1; O2SAT 99
[2022-01-24 08:11] LABS: SARS-CoV-2 RNA PCR Negative (Negative)
[2022-01-24] MEDS: SENNOSIDES 8.6 MG TABLET PO ×2 (08:25→16:42)
[2022-01-24] MEDS: FUROSEMIDE 40 MG TABLET PO (08:26)
[2022-01-24] MEDS: SERTRALINE HCL 50 MG TABLET 100 MG PO (08:26)
[2022-01-24] MEDS: POTASSIUM CHLORIDE 10 MEQ TABLET PO (08:26)
[2022-01-24 08:56] VITALS: PULSE 86
[2022-01-24] MEDS: guaiFENesin 12 HR 600 MG TABCR PO ×2 (08:56→20:52)
[2022-01-24] MEDS: AMIODARONE HCL 200 MG TABLET PO (08:56)
[2022-01-24] MEDS: SPIRONOLACTONE 25 MG TABLET PO (08:56)
[2022-01-24] MEDS: carvediloL 6.25 MG TABLET PO ×2 (08:56→20:51)
[2022-01-24] MEDS: PANTOPRAZOLE 40 MG TABLET PO (08:57)
[2022-01-24] MEDS: METOCLOPRAMIDE HCL 2.5 MG TABLET PO ×3 (11:49→20:46)
--- NOTE | 2022-01-24 14:03 | PC.NURSE ---
OT in to work with patient
[2022-01-24 16:00] VITALS: BP 147/78; PULSE 85; RESP 16; TEMP 36.5; O2SAT 99
[2022-01-24] MEDS: MIRTAZAPINE 7.5 MG TABLET PO (20:46)
[2022-01-24 20:51] VITALS: PULSE 86
[2022-01-25] VITALS (8 sets, daily range): BP systolic 119–140; BP diastolic 68–90; PULSE 85–90; RESP 16–20; TEMP 36–36.8; O2SAT 91–99
[2022-01-25] MEDS: METOCLOPRAMIDE HCL 2.5 MG TABLET PO ×4 (06:01→20:55)
[2022-01-25 06:16] LABS: Prothrombin Time 30.3 Seconds (9.50-12.10)
[2022-01-25 06:18] LABS: Alanine Aminotransferase 18 U/L (14-59); Albumin Level 2.6 g/dL (3.4-5.0); Alkaline Phosphatase 79 U/L (46-116); Anion Gap 7 mmol/L (8-16); Aspartate Amino Transferase 15 U/L (15-37); Bilirubin,Total 0.2 mg/dL (0.00-1.00); Blood Urea Nitrogen 12 mg/dL (7-18); Calcium 8.9 mg/dL (8.5-10.1); Carbon Dioxide 31 mmol/L (21-32); Chloride 104 mmol/L (98-108); Estimated CRCL calculation 62 ml/min; Estimated Glomerular Filt Rate > 60; Glucose 93 mg/dL (70-99); Osmolality Calculated 293 mOsm/kg (285-295); Potassium 3.9 mmol/L (3.5-5.1); Sodium 142 mmol/L (136-145); Total Protein 6.2 g/dL (6.4-8.2)
[2022-01-25] MEDS: ONDANSETRON HCL ODT 4 MG TABLET PO (06:32)
[2022-01-25] MEDS: POTASSIUM CHLORIDE 10 MEQ TABLET PO (08:01)
[2022-01-25] MEDS: guaiFENesin 12 HR 600 MG TABCR PO ×2 (08:01→20:53)
[2022-01-25] MEDS: carvediloL 6.25 MG TABLET PO ×2 (08:36→20:52)
[2022-01-25] MEDS: SERTRALINE HCL 50 MG TABLET 100 MG PO (08:36)
[2022-01-25] MEDS: PANTOPRAZOLE 40 MG TABLET PO (08:36)
[2022-01-25] MEDS: AMIODARONE HCL 200 MG TABLET PO (08:36)
[2022-01-25] MEDS: SPIRONOLACTONE 25 MG TABLET PO (08:37)
[2022-01-25] MEDS: FUROSEMIDE 40 MG TABLET PO (08:38)
--- NOTE | 2022-01-25 09:45 | PM.EVENT ---
Event Note Event Note Event Note: Changed Lasix from 40 mg to 20 mg oral daily. Patient INr went up to 3.0 we will continue to hold coumadin and recheck levels in the am
[2022-01-25] MEDS: FLUTICASONE PROPIONATE 0.05% NA SPR 16 GM BTL (*BKC) 2 SPRAY NASAL (11:55)
[2022-01-25] MEDS: LORATADINE 10 MG TABLET PO (11:56)
[2022-01-25] MEDS: SENNOSIDES 8.6 MG TABLET PO (16:23)
--- NOTE | 2022-01-25 18:30 | PC.NURSE ---
area on right medial thigh healed
[2022-01-25] MEDS: traZODone HCL 50 MG TABLET PO (20:53)
[2022-01-25] MEDS: MIRTAZAPINE 7.5 MG TABLET PO (20:53)
[2022-01-26] VITALS (7 sets, daily range): BP systolic 136–143; BP diastolic 65–78; PULSE 82–86; RESP 16–18; TEMP 36.7–36.8; O2SAT 97–99
[2022-01-26 05:36] LABS: INR 1.8; Prothrombin Time 18.9 Seconds (9.50-12.10)
[2022-01-26 05:39] LABS: Alanine Aminotransferase 19 U/L (14-59); Albumin Level 2.6 g/dL (3.4-5.0); Alkaline Phosphatase 79 U/L (46-116); Anion Gap 4 mmol/L (8-16); Aspartate Amino Transferase 11 U/L (15-37); Bilirubin,Total 0.3 mg/dL (0.00-1.00); Blood Urea Nitrogen 14 mg/dL (7-18); Calcium 8.7 mg/dL (8.5-10.1); Carbon Dioxide 33 mmol/L (21-32); Chloride 103 mmol/L (98-108); Estimated CRCL calculation 58 ml/min; Estimated Glomerular Filt Rate > 60; Glucose 92 mg/dL (70-99); Osmolality Calculated 290 mOsm/kg (285-295); Potassium 3.8 mmol/L (3.5-5.1); Sodium 140 mmol/L (136-145); Total Protein 6.2 g/dL (6.4-8.2)
[2022-01-26] MEDS: METOCLOPRAMIDE HCL 2.5 MG TABLET PO ×4 (06:07→20:47)
[2022-01-26] MEDS: ONDANSETRON HCL ODT 4 MG TABLET PO (06:07)
[2022-01-26] MEDS: POTASSIUM CHLORIDE 10 MEQ TABLET PO (08:15)
[2022-01-26] MEDS: FLUTICASONE PROPIONATE 0.05% NA SPR 16 GM BTL (*BKC) 2 SPRAY NASAL (09:21)
[2022-01-26] MEDS: guaiFENesin 12 HR 600 MG TABCR PO ×2 (09:22→20:47)
[2022-01-26] MEDS: SERTRALINE HCL 50 MG TABLET 100 MG PO (09:22)
[2022-01-26] MEDS: LORATADINE 10 MG TABLET PO (09:22)
[2022-01-26] MEDS: FUROSEMIDE 20 MG TABLET PO (09:22)
[2022-01-26] MEDS: SENNOSIDES 8.6 MG TABLET PO ×2 (09:22→16:33)
[2022-01-26] MEDS: SPIRONOLACTONE 25 MG TABLET PO (09:23)
[2022-01-26] MEDS: PANTOPRAZOLE 40 MG TABLET PO (09:23)
[2022-01-26] MEDS: AMIODARONE HCL 200 MG TABLET PO (09:23)
[2022-01-26] MEDS: carvediloL 6.25 MG TABLET PO ×2 (09:23→20:46)
--- NOTE | 2022-01-26 10:00 | PM.EVENT ---
Event Note Event Note Event Note: Patient INR today is 1.8 I will restart her on Coumadin 5 mg and daily protime and INR
[2022-01-26] MEDS: WARFARIN (*PBKC) 5 MG TABLET PO (16:33)
[2022-01-26] MEDS: traZODone HCL 50 MG TABLET PO (20:46)
[2022-01-26] MEDS: ACETAMINOPHEN 500 MG TABLET 1000 MG PO (20:48)
[2022-01-26] MEDS: MIRTAZAPINE 7.5 MG TABLET PO (20:50)
[2022-01-27] VITALS (8 sets, daily range): BP systolic 132; BP diastolic 73; PULSE 68–85; RESP 16–17; TEMP 36.4–36.6; O2SAT 96–100
[2022-01-27 05:31] LABS: INR 1.5; Prothrombin Time 15.6 Seconds (9.50-12.10)
[2022-01-27] MEDS: METOCLOPRAMIDE HCL 2.5 MG TABLET PO ×4 (06:09→21:23)
[2022-01-27] MEDS: ACETAMINOPHEN 500 MG TABLET 1000 MG PO (08:01)
[2022-01-27] MEDS: POTASSIUM CHLORIDE 10 MEQ TABLET PO (08:20)
[2022-01-27] MEDS: SERTRALINE HCL 50 MG TABLET 100 MG PO (09:15)
[2022-01-27] MEDS: LORATADINE 10 MG TABLET PO (09:16)
[2022-01-27] MEDS: SENNOSIDES 8.6 MG TABLET PO ×2 (09:16→16:34)
[2022-01-27] MEDS: PANTOPRAZOLE 40 MG TABLET PO (09:16)
[2022-01-27] MEDS: carvediloL 6.25 MG TABLET PO ×2 (09:17→21:23)
[2022-01-27] MEDS: guaiFENesin 12 HR 600 MG TABCR PO ×2 (09:18→21:23)
[2022-01-27] MEDS: AMIODARONE HCL 200 MG TABLET PO (09:18)
[2022-01-27] MEDS: FUROSEMIDE 20 MG TABLET PO (09:18)
[2022-01-27] MEDS: SPIRONOLACTONE 25 MG TABLET PO (09:18)
[2022-01-27] MEDS: FLUTICASONE PROPIONATE 0.05% NA SPR 16 GM BTL (*BKC) 2 SPRAY NASAL (09:24)
[2022-01-27] MEDS: ONDANSETRON HCL ODT 4 MG TABLET PO (14:41)
[2022-01-27] MEDS: WARFARIN (*PBKC) 5 MG TABLET PO (16:34)
[2022-01-27] MEDS: MIRTAZAPINE 7.5 MG TABLET PO (21:23)
[2022-01-27] MEDS: traZODone HCL 50 MG TABLET PO (21:24)
[2022-01-28] VITALS (10 sets, daily range): BP systolic 102–132; BP diastolic 56–71; PULSE 85–88; RESP 16–18; TEMP 35.5–36.9; O2SAT 98–100
[2022-01-28] MEDS: METOCLOPRAMIDE HCL 2.5 MG TABLET PO ×4 (06:04→20:32)
[2022-01-28 07:17] LABS: INR 1.7; Prothrombin Time 17.5 Seconds (9.50-12.10)
[2022-01-28] MEDS: FUROSEMIDE 20 MG TABLET PO (08:53)
[2022-01-28] MEDS: PANTOPRAZOLE 40 MG TABLET PO (08:53)
[2022-01-28] MEDS: carvediloL 6.25 MG TABLET PO ×2 (08:54→20:32)
[2022-01-28] MEDS: POTASSIUM CHLORIDE 10 MEQ TABLET PO (08:54)
[2022-01-28] MEDS: AMIODARONE HCL 200 MG TABLET PO (08:55)
[2022-01-28] MEDS: FLUTICASONE PROPIONATE 0.05% NA SPR 16 GM BTL (*BKC) 2 SPRAY NASAL (08:55)
[2022-01-28] MEDS: SPIRONOLACTONE 25 MG TABLET PO (08:56)
[2022-01-28] MEDS: SERTRALINE HCL 50 MG TABLET 100 MG PO (08:56)
[2022-01-28] MEDS: LORATADINE 10 MG TABLET PO (08:56)
[2022-01-28] MEDS: guaiFENesin 12 HR 600 MG TABCR PO ×2 (08:57→20:32)
--- NOTE | 2022-01-28 09:15 | PM.EVENT ---
Event Note Event Note Event Note: 1.7 INR I will give a additional dosage of 2mg which will equal in total 7 mg today. we will continue to monitor daily INR levels.
[2022-01-28] MEDS: WARFARIN (*PBKC) 2 MG TABLET PO (10:04)
[2022-01-28] MEDS: WARFARIN (*PBKC) 5 MG TABLET PO (16:19)
[2022-01-28] MEDS: traZODone HCL 50 MG TABLET PO (20:31)
[2022-01-28] MEDS: MIRTAZAPINE 7.5 MG TABLET PO (20:31)
[2022-01-29] VITALS (7 sets, daily range): BP systolic 111–140; BP diastolic 66–69; PULSE 66–86; RESP 16–18; TEMP 36.3–36.8; O2SAT 97–99
[2022-01-29] MEDS: METOCLOPRAMIDE HCL 2.5 MG TABLET PO ×4 (06:11→20:35)
[2022-01-29 08:30] LABS: INR 1.9; Prothrombin Time 19.3 Seconds (9.50-12.10)
[2022-01-29] MEDS: POTASSIUM CHLORIDE 10 MEQ TABLET PO (08:45)
[2022-01-29] MEDS: AMIODARONE HCL 200 MG TABLET PO (08:45)
[2022-01-29] MEDS: carvediloL 6.25 MG TABLET PO ×2 (08:46→20:35)
[2022-01-29] MEDS: FLUTICASONE PROPIONATE 0.05% NA SPR 16 GM BTL (*BKC) 2 SPRAY NASAL (08:46)
[2022-01-29] MEDS: FUROSEMIDE 20 MG TABLET PO (08:46)
[2022-01-29] MEDS: LORATADINE 10 MG TABLET PO (08:47)
[2022-01-29] MEDS: guaiFENesin 12 HR 600 MG TABCR PO ×2 (08:47→20:35)
[2022-01-29] MEDS: PANTOPRAZOLE 40 MG TABLET PO (08:47)
[2022-01-29] MEDS: SPIRONOLACTONE 25 MG TABLET PO (08:48)
[2022-01-29] MEDS: SERTRALINE HCL 50 MG TABLET 100 MG PO (08:48)
--- NOTE | 2022-01-29 10:19 | P.PNCROSS_ITS ---
Event Note Event Note Event Note: WE will continue with 5mg of coumadin today patient INr 1.9 we will repeat joe rrbetsy
[2022-01-29] MEDS: WARFARIN (*PBKC) 5 MG TABLET PO (16:40)
[2022-01-29] MEDS: traZODone HCL 50 MG TABLET PO (20:34)
[2022-01-29] MEDS: MIRTAZAPINE 7.5 MG TABLET PO (20:35)
[2022-01-30] VITALS (7 sets, daily range): BP systolic 129–138; BP diastolic 63; PULSE 68–86; RESP 16; TEMP 36.2–36.6; O2SAT 88–99
[2022-01-30 05:52] LABS: INR 1.8
[2022-01-30] MEDS: METOCLOPRAMIDE HCL 2.5 MG TABLET PO ×4 (06:36→20:25)
[2022-01-30] MEDS: SPIRONOLACTONE 25 MG TABLET PO (08:48)
[2022-01-30] MEDS: PANTOPRAZOLE 40 MG TABLET PO (08:48)
[2022-01-30] MEDS: SENNOSIDES 8.6 MG TABLET PO ×2 (08:48→17:37)
[2022-01-30] MEDS: SERTRALINE HCL 50 MG TABLET 100 MG PO (08:48)
[2022-01-30] MEDS: FUROSEMIDE 20 MG TABLET PO (08:48)
[2022-01-30] MEDS: guaiFENesin 12 HR 600 MG TABCR PO ×2 (08:48→20:24)
[2022-01-30] MEDS: AMIODARONE HCL 200 MG TABLET PO (08:49)
[2022-01-30] MEDS: carvediloL 6.25 MG TABLET PO ×2 (08:49→20:23)
[2022-01-30] MEDS: POTASSIUM CHLORIDE 10 MEQ TABLET PO (08:49)
[2022-01-30] MEDS: FLUTICASONE PROPIONATE 0.05% NA SPR 16 GM BTL (*BKC) 2 SPRAY NASAL (08:49)
[2022-01-30] MEDS: LORATADINE 10 MG TABLET PO (08:49)
--- NOTE | 2022-01-30 09:50 | PC.NURSE ---
Patient had small emesis, states it is from mucus. Emesis 75ml.
--- NOTE | 2022-01-30 11:41 | PM.EVENT ---
Event Note Event Note Event Note: Patient INR remain suboptimal I will give a additional dose on 10 mg of coumadin and follow INr in the am
[2022-01-30] MEDS: WARFARIN (*PBKC) 5 MG TABLET PO ×2 (17:37→17:42)
[2022-01-30] MEDS: MIRTAZAPINE 7.5 MG TABLET PO (20:23)
[2022-01-31] VITALS (8 sets, daily range): BP systolic 117–140; BP diastolic 68–73; PULSE 80–87; RESP 14–18; TEMP 35.9–37.1; O2SAT 97–98
[2022-01-31 05:42] LABS: INR 1.9; Prothrombin Time 19.3 Seconds (9.50-12.10)
[2022-01-31] MEDS: METOCLOPRAMIDE HCL 2.5 MG TABLET PO ×4 (06:31→21:00)
[2022-01-31] MEDS: FLUTICASONE PROPIONATE 0.05% NA SPR 16 GM BTL (*BKC) 2 SPRAY NASAL (09:08)
[2022-01-31] MEDS: guaiFENesin 12 HR 600 MG TABCR PO ×2 (09:09→20:59)
[2022-01-31] MEDS: SENNOSIDES 8.6 MG TABLET PO ×2 (09:09→16:40)
[2022-01-31] MEDS: PANTOPRAZOLE 40 MG TABLET PO (09:10)
[2022-01-31] MEDS: carvediloL 6.25 MG TABLET PO ×2 (09:10→20:59)
[2022-01-31] MEDS: SERTRALINE HCL 50 MG TABLET 100 MG PO (09:10)
[2022-01-31] MEDS: LORATADINE 10 MG TABLET PO (09:10)
[2022-01-31] MEDS: AMIODARONE HCL 200 MG TABLET PO (09:10)
[2022-01-31] MEDS: POTASSIUM CHLORIDE 10 MEQ TABLET PO (09:10)
[2022-01-31] MEDS: SPIRONOLACTONE 25 MG TABLET PO (09:10)
[2022-01-31] MEDS: FUROSEMIDE 20 MG TABLET PO (09:10)
[2022-01-31] MEDS: WARFARIN (*PBKC) 5 MG TABLET PO (16:40)
[2022-01-31] MEDS: MIRTAZAPINE 7.5 MG TABLET PO (20:59)
[2022-01-31] MEDS: traZODone HCL 50 MG TABLET PO (21:00)
[2022-02-01] VITALS (10 sets, daily range): BP systolic 136–151; BP diastolic 72–76; PULSE 82–92; RESP 18–19; TEMP 36.2–36.7; O2SAT 93–98
[2022-02-01] MEDS: METOCLOPRAMIDE HCL 2.5 MG TABLET PO ×4 (06:20→20:31)
--- NOTE | 2022-02-01 08:22 | WPDPN ---
Progress Note: A&P Assessment and Plan (1) S/P AVR (aortic valve replacement): Code(s): Z95.2 - Presence of prosthetic heart valve Status: Acute Assessment and Plan: Aortic stenosis History of aortic valve replacement done in December 2018 in [place] Redo? bioprosthetic valve Received transfusion and chest washout (2) HTN (hypertension): Code(s): I10 - Essential (primary) hypertension Status: Acute Assessment and Plan: stable Coreg 6.25, heart rate in the 90 s closely monitor and adjust medication as needed Vital signs as ordered Continue spironolactone (3) Hyperlipidemia: Code(s): E78.5 - Hyperlipidemia, unspecified Status: Acute (4) Atrial fibrillation: Code(s): I48.91 - Unspecified atrial fibrillation Status: Acute Assessment and Plan: EKG paced with a heart rate of 85 on admission (5) Weakness: Code(s): R53.1 - Weakness Status: Acute Assessment and Plan: ? ?Patient will be? ability to perform required activities of daily living. ? Provide appropriate nutrition for healing and strength. ? ?Use appropriate to prevent falls. ? Continue physical therapy/occupational therapy. (6) AICD (automatic cardioverter/defibrillator) present: Code(s): Z95.810 - Presence of automatic (implantable) cardiac defibrillator Status: Acute Subjective Date/time seen: 02/01/22 08:22 Interval history: Patient has no complaints today. Patient notes that she is eating sleeping well and she rates her pain at a 0. She also notes that physical/occupational therapy is going well. In her lower extremities swelling has much improved. The patient denies SOB, CP, palpitation, extremity numbness, lightheadedness, dizziness, constipation, diarrhea, chills, or fever. Review of Systems Review of Systems: A 14 organ system Review of Systems was performed and pertinent positives included in the HPI, otherwise remaining ROS is negative. Exam Narrative: GENERAL: This is a well-nourished, well-developed patient, in no apparent distress. HEAD: normocephalic, atraumatic. EYES: PERRL. Sclera clear/white. Vision is grossly intact. EARS: External ears normal, auditory canals clear and without drainage, TMs normal without perforation. Hearing grossly intact. NOSE: External nose normal with no obvious nasal discharge, nares without redness, no rhinorrhea. THROAT: Mucous membranes moist, posterior pharynx clear. NECK: Neck supple, non-tender without lymphadenopathy, masses or thyromegaly. CARDIOVASCULAR: Regular rate and rhythm without murmurs, gallops, or rubs. RESPIRATORY: Clear to auscultation. Breath sounds equal bilaterally. No wheezes, rales, or rhonchi. GASTROINTESTINAL: Abdomen soft, non-tender, nondistended. Bowel sounds are active. No hepato-splenomegaly, or palpable masses. No guarding. SKIN: Bilateral surgical incisions to groin area, surgical site to left thigh. NEURO: awake, alert, and oriented to person, place and time. There were no obvious focal neurologic abnormalities. Steady gait EXTREMITIES: Normal range of motion. No edema. No calf tenderness. Negative Homans sign bilaterally. BACK: Nontender without deformity or crepitance. No flank tenderness. Objective Data Vital Signs Vital Signs: Vital Signs - 24 hr 01/31/22 09:10 01/31/22 09:10 01/31/22 08:45 Temperature Pulse Rate 86 86 Respiratory Rate Blood Pressure Pulse Oximetry 97 Oxygen Delivery Nasal Cannula Oxygen Flow Rate 1 01/31/22 16:30 01/31/22 19:48 01/31/22 20:59 Temperature 98.8 F Pulse Rate 87 80 Respiratory Rate 16 Blood Pressure 127/69 Pulse Oximetry 98 98 Oxygen Delivery Nasal Cannula Nasal Cannula Oxygen Flow Rate 1 1 01/31/22 23:50 Temperature 97.8 F Pulse Rate 86 Respiratory Rate 18 Blood Pressure 139/73 Pulse Oximetry 98 Oxygen Delivery Nasal Cannula Oxygen Flow Rate 1 Intake/Output Intake/Output: In
[2022-02-01] MEDS: SENNOSIDES 8.6 MG TABLET PO ×2 (08:32→16:37)
[2022-02-01] MEDS: AMIODARONE HCL 200 MG TABLET PO (08:32)
[2022-02-01] MEDS: FLUTICASONE PROPIONATE 0.05% NA SPR 16 GM BTL (*BKC) 2 SPRAY NASAL (08:32)
[2022-02-01] MEDS: guaiFENesin 12 HR 600 MG TABCR PO ×2 (08:32→20:31)
[2022-02-01] MEDS: PANTOPRAZOLE 40 MG TABLET PO (08:33)
[2022-02-01] MEDS: FUROSEMIDE 20 MG TABLET PO (08:33)
[2022-02-01] MEDS: SERTRALINE HCL 50 MG TABLET 100 MG PO (08:33)
[2022-02-01] MEDS: LORATADINE 10 MG TABLET PO (08:33)
[2022-02-01] MEDS: POTASSIUM CHLORIDE 10 MEQ TABLET PO (08:33)
[2022-02-01] MEDS: SPIRONOLACTONE 25 MG TABLET PO (08:33)
[2022-02-01] MEDS: carvediloL 6.25 MG TABLET PO ×2 (08:33→20:31)
[2022-02-01 10:34] LABS: INR 2.5; Prothrombin Time 25.6 Seconds (9.50-12.10)
[2022-02-01] MEDS: WARFARIN (*PBKC) 5 MG TABLET PO (16:37)
[2022-02-01] MEDS: traZODone HCL 50 MG TABLET PO (20:31)
[2022-02-01] MEDS: MIRTAZAPINE 7.5 MG TABLET PO (20:31)
[2022-02-02 05:23] LABS: INR 2.2
[2022-02-02] MEDS: METOCLOPRAMIDE HCL 2.5 MG TABLET PO ×4 (05:47→20:36)
[2022-02-02 06:52] VITALS: O2SAT 94
[2022-02-02 08:00] VITALS: BP 128/74; PULSE 74; RESP 22; TEMP 36.8; O2SAT 94
[2022-02-02] MEDS: ONDANSETRON HCL ODT 4 MG TABLET PO (08:33)
[2022-02-02 08:36] VITALS: PULSE 74
[2022-02-02] MEDS: SERTRALINE HCL 50 MG TABLET 100 MG PO (08:36)
[2022-02-02] MEDS: carvediloL 6.25 MG TABLET PO ×2 (08:36→20:31)
[2022-02-02] MEDS: SENNOSIDES 8.6 MG TABLET PO (08:36)
[2022-02-02 08:37] VITALS: PULSE 74
[2022-02-02] MEDS: PANTOPRAZOLE 40 MG TABLET PO (08:37)
[2022-02-02] MEDS: AMIODARONE HCL 200 MG TABLET PO (08:37)
[2022-02-02] MEDS: POTASSIUM CHLORIDE 10 MEQ TABLET PO (08:37)
[2022-02-02] MEDS: SPIRONOLACTONE 25 MG TABLET PO (08:37)
[2022-02-02] MEDS: LORATADINE 10 MG TABLET PO (08:37)
[2022-02-02] MEDS: guaiFENesin 12 HR 600 MG TABCR PO ×2 (08:37→20:31)
[2022-02-02] MEDS: FUROSEMIDE 20 MG TABLET PO (08:38)
[2022-02-02] MEDS: FLUTICASONE PROPIONATE 0.05% NA SPR 16 GM BTL (*BKC) 2 SPRAY NASAL (08:38)
--- NOTE | 2022-02-02 10:16 | PC.NURSE ---
emesis after breakfast. phlegmy with undigested food. prn zofran given. emergency worker aware and at this time has no further c/o.
[2022-02-02 16:00] VITALS: BP 128/70; PULSE 84; RESP 19; TEMP 36.8; O2SAT 93
[2022-02-02] MEDS: WARFARIN (*PBKC) 5 MG TABLET PO (16:55)
[2022-02-02 20:31] VITALS: PULSE 85
[2022-02-02] MEDS: MIRTAZAPINE 7.5 MG TABLET PO (20:36)
[2022-02-03] VITALS: BP 127/72; PULSE 85; RESP 20; TEMP 36.4; O2SAT 94
[2022-02-03 06:00] LABS: INR 2.2
[2022-02-03] MEDS: METOCLOPRAMIDE HCL 2.5 MG TABLET PO ×4 (06:08→20:18)
[2022-02-03 08:00] VITALS: BP 124/74; PULSE 84; RESP 18; TEMP 36.6; O2SAT 90
[2022-02-03] MEDS: PANTOPRAZOLE 40 MG TABLET PO (08:50)
[2022-02-03] MEDS: FLUTICASONE PROPIONATE 0.05% NA SPR 16 GM BTL (*BKC) 2 SPRAY NASAL (08:50)
[2022-02-03 08:51] VITALS: PULSE 82
[2022-02-03] MEDS: guaiFENesin 12 HR 600 MG TABCR PO ×2 (08:51→20:19)
[2022-02-03] MEDS: AMIODARONE HCL 200 MG TABLET PO (08:51)
[2022-02-03 08:52] VITALS: PULSE 82
[2022-02-03] MEDS: carvediloL 6.25 MG TABLET PO ×2 (08:52→20:19)
[2022-02-03] MEDS: POTASSIUM CHLORIDE 10 MEQ TABLET PO (08:52)
[2022-02-03] MEDS: LORATADINE 10 MG TABLET PO (08:52)
[2022-02-03] MEDS: SERTRALINE HCL 50 MG TABLET 100 MG PO (08:52)
[2022-02-03] MEDS: FUROSEMIDE 20 MG TABLET PO (08:53)
[2022-02-03] MEDS: SPIRONOLACTONE 25 MG TABLET PO (11:08)
[2022-02-03 16:00] VITALS: BP 128/68; PULSE 86; RESP 18; TEMP 36.5; O2SAT 96
[2022-02-03] MEDS: WARFARIN (*PBKC) 5 MG TABLET PO (16:37)
--- NOTE | 2022-02-03 16:45 | PC.NURSE ---
Patient and personal belongings moved to room 226 to provide quieter environment. Family notified per patient's request.
[2022-02-03 20:19] VITALS: PULSE 85
[2022-02-03] MEDS: MIRTAZAPINE 7.5 MG TABLET PO (20:19)
[2022-02-04] VITALS (7 sets, daily range): BP systolic 122–132; BP diastolic 68–80; PULSE 68–86; RESP 16–20; TEMP 36.1–37.2; O2SAT 92–98
[2022-02-04 05:23] LABS: INR 2.5; Prothrombin Time 25.5 Seconds (9.50-12.10)
[2022-02-04] MEDS: METOCLOPRAMIDE HCL 2.5 MG TABLET PO ×4 (06:06→20:22)
[2022-02-04] MEDS: FLUTICASONE PROPIONATE 0.05% NA SPR 16 GM BTL (*BKC) 2 SPRAY NASAL (08:52)
[2022-02-04] MEDS: SENNOSIDES 8.6 MG TABLET PO ×2 (08:53→16:37)
[2022-02-04] MEDS: guaiFENesin 12 HR 600 MG TABCR PO ×2 (08:53→20:22)
[2022-02-04] MEDS: SPIRONOLACTONE 25 MG TABLET PO (08:53)
[2022-02-04] MEDS: carvediloL 6.25 MG TABLET PO ×2 (08:53→20:21)
[2022-02-04] MEDS: FUROSEMIDE 20 MG TABLET PO (08:54)
[2022-02-04] MEDS: PANTOPRAZOLE 40 MG TABLET PO (08:54)
[2022-02-04] MEDS: LORATADINE 10 MG TABLET PO (08:54)
[2022-02-04] MEDS: AMIODARONE HCL 200 MG TABLET PO (08:54)
[2022-02-04] MEDS: SERTRALINE HCL 50 MG TABLET 100 MG PO (08:54)
[2022-02-04] MEDS: POTASSIUM CHLORIDE 10 MEQ TABLET PO (08:55)
[2022-02-04] MEDS: WARFARIN (*PBKC) 5 MG TABLET PO (16:37)
--- NOTE | 2022-02-04 18:22 | PC.NURSE ---
Pt had run of SVT lasting about one minute. Pt was sleeping at the time. No distress noted. Pt now back to sinus rhythm at 98bpm. George RENDON notified.
[2022-02-04] MEDS: MIRTAZAPINE 7.5 MG TABLET PO (20:21)
[2022-02-04] MEDS: traZODone HCL 50 MG TABLET PO (20:22)
[2022-02-05 05:16] LABS: INR 2.8; Prothrombin Time 28.7 Seconds (9.50-12.10)
[2022-02-05] MEDS: METOCLOPRAMIDE HCL 2.5 MG TABLET PO ×4 (06:28→20:14)
[2022-02-05] MEDS: FLUTICASONE PROPIONATE 0.05% NA SPR 16 GM BTL (*BKC) 2 SPRAY NASAL (08:35)
[2022-02-05] MEDS: SPIRONOLACTONE 25 MG TABLET PO (08:36)
[2022-02-05] MEDS: SERTRALINE HCL 50 MG TABLET 100 MG PO (08:36)
[2022-02-05 08:37] VITALS: PULSE 68; PULSE 70
[2022-02-05] MEDS: PANTOPRAZOLE 40 MG TABLET PO (08:37)
[2022-02-05] MEDS: POTASSIUM CHLORIDE 10 MEQ TABLET PO (08:37)
[2022-02-05] MEDS: guaiFENesin 12 HR 600 MG TABCR PO ×2 (08:37→20:15)
[2022-02-05] MEDS: carvediloL 6.25 MG TABLET PO ×2 (08:37→20:12)
[2022-02-05] MEDS: LORATADINE 10 MG TABLET PO (08:37)
[2022-02-05] MEDS: FUROSEMIDE 20 MG TABLET PO (08:37)
[2022-02-05] MEDS: AMIODARONE HCL 200 MG TABLET PO (08:37)
[2022-02-05] MEDS: SENNOSIDES 8.6 MG TABLET PO ×2 (08:37→16:21)
[2022-02-05 16:00] VITALS: BP 112/75; PULSE 85; RESP 18; TEMP 36.7; O2SAT 95
[2022-02-05] MEDS: WARFARIN (*PBKC) 5 MG TABLET PO (16:21)
[2022-02-05 20:12] VITALS: PULSE 85
[2022-02-05] MEDS: MIRTAZAPINE 7.5 MG TABLET PO (20:13)
[2022-02-05] MEDS: traZODone HCL 50 MG TABLET PO (20:14)
[2022-02-05 23:01] VITALS: BP 122/72; PULSE 85; RESP 17; TEMP 37.1; O2SAT 93
[2022-02-06 05:42] LABS: INR 2.9; Prothrombin Time 28.8 Seconds (9.50-12.10)
[2022-02-06] MEDS: METOCLOPRAMIDE HCL 2.5 MG TABLET PO ×4 (06:38→20:48)
[2022-02-06 07:50] VITALS: BP 112/87; PULSE 86; RESP 16; TEMP 36; O2SAT 94
[2022-02-06] MEDS: FLUTICASONE PROPIONATE 0.05% NA SPR 16 GM BTL (*BKC) 2 SPRAY NASAL (08:02)
[2022-02-06] MEDS: guaiFENesin 12 HR 600 MG TABCR PO ×2 (08:03→20:48)
[2022-02-06] MEDS: POTASSIUM CHLORIDE 10 MEQ TABLET PO (08:03)
[2022-02-06] MEDS: SERTRALINE HCL 50 MG TABLET 100 MG PO (08:03)
[2022-02-06 08:04] VITALS: PULSE 86
[2022-02-06] MEDS: carvediloL 6.25 MG TABLET PO ×2 (08:04→20:48)
[2022-02-06] MEDS: AMIODARONE HCL 200 MG TABLET PO (08:04)
[2022-02-06] MEDS: LORATADINE 10 MG TABLET PO (08:05)
[2022-02-06] MEDS: SPIRONOLACTONE 25 MG TABLET PO (08:05)
[2022-02-06] MEDS: FUROSEMIDE 20 MG TABLET PO (08:05)
[2022-02-06] MEDS: PANTOPRAZOLE 40 MG TABLET PO (08:05)
[2022-02-06] MEDS: ONDANSETRON HCL ODT 4 MG TABLET PO (08:27)
[2022-02-06 16:00] VITALS: BP 122/69; PULSE 85; RESP 16; TEMP 36.4; O2SAT 95
[2022-02-06] MEDS: WARFARIN (*PBKC) 5 MG TABLET PO (16:42)
[2022-02-06] MEDS: SENNOSIDES 8.6 MG TABLET PO (16:42)
[2022-02-06 20:48] VITALS: PULSE 82
[2022-02-06] MEDS: MIRTAZAPINE 7.5 MG TABLET PO (20:48)
[2022-02-06] MEDS: traZODone HCL 50 MG TABLET PO (20:48)
[2022-02-06 23:47] VITALS: BP 128/70; PULSE 84; RESP 18; TEMP 36.7; O2SAT 93
[2022-02-07 05:39] LABS: INR 3.1; Prothrombin Time 30.8 Seconds (9.50-12.10)
[2022-02-07] MEDS: METOCLOPRAMIDE HCL 2.5 MG TABLET PO ×4 (06:00→20:34)
[2022-02-07 08:00] VITALS: BP 120/71; PULSE 85; RESP 16; TEMP 36.6; O2SAT 95
[2022-02-07] MEDS: FLUTICASONE PROPIONATE 0.05% NA SPR 16 GM BTL (*BKC) 2 SPRAY NASAL (08:31)
[2022-02-07 08:32] VITALS: PULSE 85
[2022-02-07] MEDS: SPIRONOLACTONE 25 MG TABLET PO (08:32)
[2022-02-07] MEDS: carvediloL 6.25 MG TABLET PO ×2 (08:32→20:31)
[2022-02-07] MEDS: FUROSEMIDE 20 MG TABLET PO (08:32)
[2022-02-07] MEDS: POTASSIUM CHLORIDE 10 MEQ TABLET PO (08:33)
[2022-02-07] MEDS: guaiFENesin 12 HR 600 MG TABCR PO ×2 (08:33→20:31)
[2022-02-07] MEDS: PANTOPRAZOLE 40 MG TABLET PO (08:33)
[2022-02-07 08:34] VITALS: PULSE 85
[2022-02-07] MEDS: SERTRALINE HCL 50 MG TABLET 100 MG PO (08:34)
[2022-02-07] MEDS: LORATADINE 10 MG TABLET PO (08:34)
[2022-02-07] MEDS: AMIODARONE HCL 200 MG TABLET PO (08:34)
--- NOTE | 2022-02-07 09:13 | PM.EVENT ---
Event Note Event Note Event Note: INR 3.1 warfarin on hold. Checking to see if insurance will pay for Eliquis. Pharmacy recommends warfarin 5 mg on Sunday and Sunday and 2.5 on Wednesdays and Fridays.
--- NOTE | 2022-02-07 12:39 | PC.NURSE ---
Patient drank a dietary supplement shake between meals.
[2022-02-07 15:15] VITALS: BP 115/63; PULSE 76; RESP 16; TEMP 36.3; O2SAT 96
[2022-02-07 16:00] VITALS: BP 133/72; PULSE 16; RESP 85; TEMP 35.6; O2SAT 95
[2022-02-07] MEDS: SENNOSIDES 8.6 MG TABLET PO (16:40)
[2022-02-07 20:31] VITALS: PULSE 86
[2022-02-07] MEDS: traZODone HCL 50 MG TABLET PO (20:31)
[2022-02-07] MEDS: MIRTAZAPINE 7.5 MG TABLET PO (20:31)
[2022-02-08] VITALS: BP 111/69; PULSE 86; RESP 18; TEMP 36.4; O2SAT 96
[2022-02-08 05:43] LABS: INR 2.5; Prothrombin Time 25.1 Seconds (9.50-12.10)
[2022-02-08] MEDS: METOCLOPRAMIDE HCL 2.5 MG TABLET PO ×4 (05:44→20:10)
[2022-02-08 08:00] VITALS: BP 119/79; PULSE 85; RESP 14; TEMP 36.2; O2SAT 97
[2022-02-08] MEDS: FUROSEMIDE 20 MG TABLET PO (08:30)
[2022-02-08] MEDS: LORATADINE 10 MG TABLET PO (08:44)
[2022-02-08] MEDS: SPIRONOLACTONE 25 MG TABLET PO (08:44)
[2022-02-08] MEDS: PANTOPRAZOLE 40 MG TABLET PO (08:44)
[2022-02-08] MEDS: POTASSIUM CHLORIDE 10 MEQ TABLET PO (08:44)
[2022-02-08] MEDS: SERTRALINE HCL 50 MG TABLET 100 MG PO (08:44)
[2022-02-08] MEDS: guaiFENesin 12 HR 600 MG TABCR PO ×2 (08:44→20:10)
[2022-02-08 08:45] VITALS: PULSE 75; PULSE 76
[2022-02-08] MEDS: AMIODARONE HCL 200 MG TABLET PO (08:45)
[2022-02-08] MEDS: carvediloL 6.25 MG TABLET PO ×2 (08:45→20:10)
[2022-02-08] MEDS: FLUTICASONE PROPIONATE 0.05% NA SPR 16 GM BTL (*BKC) 2 SPRAY NASAL (08:45)
[2022-02-08 16:00] VITALS: BP 129/76; PULSE 85; RESP 16; TEMP 36.2; O2SAT 95
[2022-02-08] MEDS: WARFARIN (*PBKC) 5 MG TABLET PO (16:23)
[2022-02-08 20:10] VITALS: PULSE 86
[2022-02-08] MEDS: MIRTAZAPINE 7.5 MG TABLET PO (20:11)
[2022-02-08 23:53] VITALS: BP 128/72; PULSE 86; RESP 18; TEMP 36.4; O2SAT 91
[2022-02-09 05:28] LABS: INR 1.9; Prothrombin Time 19.4 Seconds (9.50-12.10)
[2022-02-09] MEDS: METOCLOPRAMIDE HCL 2.5 MG TABLET PO ×2 (06:15→11:29)
--- NOTE | 2022-02-09 07:02 | PM.DS ---
DS: Admitting Diagnosis Discharge Date 02/09/2022 Admitting Diagnosis Atrial Fib, Weakness Rehab, DS: Discharge Diagnosis Discharge Diagnosis (1) Weakness: Code(s): R53.1 - Weakness Status: Acute Assessment and Plan: ? ?Patient will be? ability to perform required activities of daily living. ? Provide appropriate nutrition for healing and strength. ? ?Use appropriate to prevent falls. ? Continue physical therapy/occupational therapy. (2) HTN (hypertension): Code(s): I10 - Essential (primary) hypertension Status: Acute Assessment and Plan: stable Coreg 6.25, heart rate in the 90 s closely monitor and adjust medication as needed Vital signs as ordered Continue spironolactone (3) Atrial fibrillation: Code(s): I48.91 - Unspecified atrial fibrillation Status: Acute Assessment and Plan: EKG paced with a heart rate of 85 on admission Eliquis she will not go home she will go home on Coumadin at the recommendation of Astronomy Instructor and follow 2.5 mg alternating with 5mg see direction follow up with Cardiology call and schedule appointment Call your Primary care provider and schedule appointment in 5-7 days DS: Summary Hospital Course Reason for hospitalization: htn, Atrial Fib, Weakness Hospital Course: This is a 67-year-old female that has been a swing bed who came from [facility]. Patient has a past medical history of previous aortic valve replacement done in 2019,, A. fib, left bundle block branch, dyslipidemia, and tobacco abuse.? Dr. Moore completed a redo sternotomy, mechanical composite root replacement w/ IABP insertion.? Patient was later intubated and placed on vasopressors.? Afterwards she had V. fib arrest which required 3 defibrillations.? A bedside NEVAEH demonstrated severe right ventricle dysfunction.? At that time she was taken to the cardiac cath she was cannulated on VA ECMO in the [employer].? PCI was unsuccessful.? She was then taken back to the OR for CABG x1, SVG to RCA.? Postoperative she developed complications by hemorrhagic shock requiring multiple transfusion and chest washouts.? She also developed severe mitral regurgitation postoperatively VA ECMO was converted toR-ECMO.? Most recent NEVAEH on 12/11/2021 demonstrated normal biventricular systolic function with grade 3/4 diastolic dysfunction.? She was also treated for Moraxella pneumonia, Mrs Junior required a washout in the right groin due to fluid collection on 12/12/2021. Patient was pegged and trached.? Her trach site has closed off she continues to have the PEG which is not being used.? During her stay with us she is greatly improved and is doing well patient will go home with home health. Per recommendations of mold shifter patient will go home on Coumadin instead of Eliquis with rotating dosage. Patient also will follow up with cardiology and her primary care provider as well as home health will continue to evaluate and draw her labs. Sunday she will have a PT/INR drawn and her primary care provider or mold shifter will determine when the next ones are due. Ms. Lin has been cleared by physical therapy all her goals have been met. She will continue to follow plan of care set by cardiology and her primary care provider. Time Spent with Patient Time attestation: Total time spent providing and/or coordinating discharge services: Exam Narrative: GENERAL: This is a well-nourished, well-developed patient, in no apparent distress. HEAD: normocephalic, atraumatic. EYES: PERRL. Sclera clear/white. Vision is grossly intact. EARS: External ears normal, auditory canals clear and without drainage, TMs normal without perforation. Hearing grossly intact. NOSE: External nose normal with no obvious nasal discharge, nares without redness, no rhinorrhea. THROAT: Mucous membranes moist, posterior pharynx clear. NECK: Neck supple, non-tender without lymphadenopathy, masses or thyromegaly. CARDIOVASCULAR: Regula
[2022-02-09 08:00] VITALS: BP 120/82; PULSE 68; RESP 17; TEMP 36.4; O2SAT 95
[2022-02-09 08:51] VITALS: PULSE 68
[2022-02-09] MEDS: guaiFENesin 12 HR 600 MG TABCR PO (08:51)
[2022-02-09] MEDS: PANTOPRAZOLE 40 MG TABLET PO (08:51)
[2022-02-09] MEDS: carvediloL 6.25 MG TABLET PO (08:51)
[2022-02-09] MEDS: AMIODARONE HCL 200 MG TABLET PO (08:51)
[2022-02-09] MEDS: FUROSEMIDE 20 MG TABLET PO (08:51)
[2022-02-09] MEDS: LORATADINE 10 MG TABLET PO (08:51)
[2022-02-09] MEDS: SENNOSIDES 8.6 MG TABLET PO (08:51)
[2022-02-09] MEDS: SERTRALINE HCL 50 MG TABLET 100 MG PO (08:52)
[2022-02-09] MEDS: FLUTICASONE PROPIONATE 0.05% NA SPR 16 GM BTL (*BKC) 2 SPRAY NASAL (08:52)
[2022-02-09] MEDS: POTASSIUM CHLORIDE 10 MEQ TABLET PO (08:52)
[2022-02-09] MEDS: SPIRONOLACTONE 25 MG TABLET PO (08:52)
--- NOTE | 2022-02-13 14:24 | PC.NURSE ---
Pt states she received and understood her discharge instructions. Pt also states the whole crew was awesome, they restored my charmaine .
== END 2022-02-09 13:00 | disposition home or self-care (01) | DRG 948 ==
PROVIDERS: Nurse Practitioner; Nurse Practitioner Family; Admitting Provider Internal Medicine; PCP Family Medicine; Visit Provider Internal Medicine
DX: R53.1 Weakness (principal); I48.20 Chronic atrial fibrillation, unspecified; I42.9 Cardiomyopathy, unspecified; E78.5 Hyperlipidemia, unspecified; I44.7 Left bundle-branch block, unspecified; R11.2 Nausea with vomiting, unspecified; Z20.822 Contact with and (suspected) exposure to COVID-19; Z87.891 Personal history of nicotine dependence; Z95.810 Presence of automatic (implantable) cardiac defibrillator; Z79.01 Long term (current) use of anticoagulants; Z95.2 Presence of prosthetic heart valve; Z95.1 Presence of aortocoronary bypass graft; Z48.01 Encounter for change or removal of surgical wound dressing
CPT/HCPCS: 36415; 74176; 80053; 83735; 85027; 85610; 93005; 97110; 97116; 97161; 97165; 97530; 97535; A9270; C9803; U0003; U0005

== ENCOUNTER 2022-02-13 12:28 | Outpatient (NON) | payer MEDICARE, SELFPAY ==
[2022-02-13 12:53] LABS: INR 1.9; Prothrombin Time 20.7 Seconds (11.1-14.7)
== END 2022-02-13 12:29 | disposition home or self-care (01) ==
LOC: ANHLAB 12:32
PROVIDERS: PCP Family Medicine; Visit Provider Family Medicine
DX: I48.91 Unspecified atrial fibrillation (principal); I25.10 Atherosclerotic heart disease of native coronary artery without angina pectoris; I11.0 Hypertensive heart disease with heart failure; Z48.812 Encounter for surgical aftercare following surgery on the circulatory system
CPT/HCPCS: 36415; 85610

== ENCOUNTER 2022-02-24 12:58 | Outpatient (NON) | payer MEDICARE, SELFPAY ==
[2022-02-24 13:22] LABS: INR 2.6; Prothrombin Time 27.3 Seconds (11.1-14.7)
== END 2022-02-24 12:59 | disposition home or self-care (01) ==
LOC: ANHLAB 13:03
PROVIDERS: PCP Family Medicine; Visit Provider Family Medicine
DX: I48.91 Unspecified atrial fibrillation (principal); I25.10 Atherosclerotic heart disease of native coronary artery without angina pectoris; I11.0 Hypertensive heart disease with heart failure; Z48.812 Encounter for surgical aftercare following surgery on the circulatory system
CPT/HCPCS: 36415; 85610

== ENCOUNTER 2022-03-10 10:12 | Outpatient (NON) | payer MEDICARE, SELFPAY ==
[2022-03-10 10:31] LABS: INR 2.3; Prothrombin Time 24.6 Seconds (11.1-14.7)
== END 2022-03-10 10:13 | disposition home or self-care (01) ==
LOC: HOME HLTH 10:16
PROVIDERS: PCP Family Medicine; Visit Provider Internal Medicine Cardiovascular Disease
DX: I11.0 Hypertensive heart disease with heart failure (principal); I25.10 Atherosclerotic heart disease of native coronary artery without angina pectoris; I48.91 Unspecified atrial fibrillation; Z48.812 Encounter for surgical aftercare following surgery on the circulatory system
CPT/HCPCS: 85610

== ENCOUNTER 2022-03-16 10:29 | Outpatient (CLI) | payer MEDICARE, SELFPAY ==
[2022-03-16 12:06] LABS: INR 2.3; Prothrombin Time 24.5 Seconds (11.1-14.7)
== END 2022-03-16 10:30 | disposition home or self-care (01) ==
LOC: ANHLAB 10:38
PROVIDERS: PCP Family Medicine; Visit Provider Internal Medicine Cardiovascular Disease
DX: Z79.01 Long term (current) use of anticoagulants (principal); Z95.0 Presence of cardiac pacemaker
CPT/HCPCS: 36415; 85610

== ENCOUNTER 2022-06-07 16:30 | Outpatient (RCR) | payer MEDICARE, OTHER, SELFPAY | END 2022-06-28 17:03 | disposition home or self-care (01) | LOC: ANHCPREHAB 16:30 | PROVIDERS: PCP Family Medicine; Visit Provider Internal Medicine Cardiovascular Disease | DX: Z95.2 Presence of prosthetic heart valve (principal); Z95.1 Presence of aortocoronary bypass graft | CPT/HCPCS: 93798 ==

== ENCOUNTER 2022-07-05 09:13 | Outpatient (RCR) | payer MEDICARE, SELFPAY ==
[2022-04-11 11:08] LABS: INR 1.6; Prothrombin Time 18.2 Seconds (11.1-14.7)
[2022-05-26 11:01] LABS: INR 3.4; Prothrombin Time 33.5 Seconds (11.1-14.7)
[2022-07-05 09:56] LABS: INR 2.1
== END 2022-07-10 23:59 | disposition home or self-care (01) ==
LOC: ANHLAB 09:13
PROVIDERS: PCP Family Medicine; Visit Provider Internal Medicine Cardiovascular Disease
DX: Z51.81 Encounter for therapeutic drug level monitoring (principal); Z95.0 Presence of cardiac pacemaker; Z79.01 Long term (current) use of anticoagulants
CPT/HCPCS: 36415; 85610

== ENCOUNTER 2022-10-05 13:27 | Outpatient (RCR) | payer MEDICARE, OTHER, SELFPAY ==
[2022-07-21 10:28] LABS: INR 2.2; Prothrombin Time 23.2 Seconds (11.1-14.7)
[2022-09-07 10:54] LABS: INR 1.1
[2022-09-14 12:22] LABS: INR 1.3; Prothrombin Time 15.4 Seconds (11.1-14.7)
[2022-09-21 12:00] LABS: INR 1.8; Prothrombin Time 20.3 Seconds (11.1-14.7)
[2022-10-05 14:02] LABS: INR 1.9; Prothrombin Time 21.1 Seconds (11.1-14.7)
== END 2022-10-19 23:59 | disposition home or self-care (01) ==
LOC: ANHLAB 13:27
PROVIDERS: PCP Family Medicine; Visit Provider Internal Medicine Cardiovascular Disease
DX: Z51.81 Encounter for therapeutic drug level monitoring (principal); Z95.0 Presence of cardiac pacemaker; Z79.01 Long term (current) use of anticoagulants
CPT/HCPCS: 36415; 85610

== ENCOUNTER 2023-01-18 11:08 | Outpatient (RCR) | payer MEDICARE, OTHER, SELFPAY ==
[2022-11-09 12:59] LABS: INR 2.4; Prothrombin Time 27.6 Seconds (11.1-14.7)
[2022-12-22 12:42] LABS: INR 2.7; Prothrombin Time 30.5 Seconds (11.1-14.7)
[2023-01-18 12:05] LABS: Prothrombin Time 24.2 Seconds (11.1-14.7)
== END 2023-02-07 23:59 | disposition home or self-care (01) ==
LOC: ANHLAB 11:08
PROVIDERS: PCP Family Medicine; Visit Provider Internal Medicine Cardiovascular Disease
DX: Z51.81 Encounter for therapeutic drug level monitoring (principal); Z95.0 Presence of cardiac pacemaker; Z79.01 Long term (current) use of anticoagulants
CPT/HCPCS: 36415; 85610

== ENCOUNTER 2023-04-23 13:21 | Outpatient (CLI) | payer MEDICARE, OTHER, SELFPAY ==
[2023-04-23 14:34] LABS: Anion Gap 6 mmol/L (8-16); Blood Urea Nitrogen 12 mg/dL (7-17); Calcium 9.8 mg/dL (8.4-10.2); Carbon Dioxide 29 mmol/L (22-30); Chloride 102 mmol/L (98-107); Estimated Glomerular Filt Rate 41; Glucose 88 mg/dL (65-110); Potassium 4.7 mmol/L (3.4-5.0); Sodium 137 mmol/L (137-145)
== END 2023-04-23 13:22 | disposition home or self-care (01) ==
PROVIDERS: PCP Family Medicine; Visit Provider Internal Medicine Cardiovascular Disease
DX: I50.33 Acute on chronic diastolic (congestive) heart failure (principal)
CPT/HCPCS: 36415; 80048

== ENCOUNTER 2023-05-24 13:54 | Outpatient (CLI) | payer MEDICARE, OTHER, SELFPAY ==
--- NOTE | 2023-05-24 17:03 | WPDPFTINT ---
PFT Procedure Performed PFT Procedure Performed Plethysmography (Lung Vol) Diffusing Cap (DLCO) Flow Vol Loop Spirometry w/o Bronchodil PFT Interpretation This is a pulmonary function test with spirometry, plethysmography and diffusing capacity. The test was performed and results interpreted in accordance with the 2019 and 2005 ATS/ERS Task Force guidelines respectively using the Global Lung Function Initiative-2012 reference equations. Patient demonstrated good effort and cooperation. Reproducibility criteria were met. The quality of the spirometry maneuver was Grade A. Findings: Spirometry: The contour the inspiratory and expiratory flow tracing are normal. The FVC is 1.59 L, 58% predicted. The FEV1 is 1.13 L, 52% predicted. The FEV1: FVC ratio 71%. Plethysmography: The total lung capacity is 2.72 L, 58% predicted. The functional residual capacity is 1.52 L, 57% predicted. The residual volume is 1.08 L, 54% predicted. Diffusing capacity: The diffusing capacity unadjusted for hemoglobin and carboxyhemoglobin is 7.0, 35% predicted. The diffusing capacity adjusted for alveolar volume is 3.26, 73% predicted. Impression: There is a moderately severe restrictive ventilatory abnormality. The spirometry is normal without evidence of an obstructive abnormality. The diffusing capacity unadjusted for hemoglobin and carboxyhemoglobin is severely decreased and normalizes when adjusted for alveolar volume. There are no prior studies for comparison
== END 2023-05-24 13:55 | disposition home or self-care (01) ==
PROVIDERS: PCP Family Medicine; Visit Provider Internal Medicine Cardiovascular Disease
DX: R06.02 Shortness of breath (principal); Z87.891 Personal history of nicotine dependence; R94.2 Abnormal results of pulmonary function studies
CPT/HCPCS: 36415; 85610; 94375; 94726; 94729

== ENCOUNTER 2023-05-24 14:02 | Outpatient (RCR) | payer MEDICARE, OTHER, SELFPAY ==
[2023-02-24 11:15] LABS: INR 1.7
[2023-03-10 12:25] LABS: INR 2.1; Prothrombin Time 25.1 Seconds (11.1-14.7)
[2023-04-23 14:36] LABS: INR 1.9; Prothrombin Time 22.8 Seconds (11.1-14.7)
[2023-05-24 14:38] LABS: INR 2.2; Prothrombin Time 25.7 Seconds (11.1-14.7)
== END 2023-05-25 23:59 | disposition home or self-care (01) ==
LOC: ANHLAB 14:02
PROVIDERS: PCP Family Medicine; Visit Provider Internal Medicine Cardiovascular Disease
DX: Z51.81 Encounter for therapeutic drug level monitoring (principal); Z95.0 Presence of cardiac pacemaker; Z79.01 Long term (current) use of anticoagulants
CPT/HCPCS: 36415; 80048; 85610

== ENCOUNTER 2023-08-17 08:05 | Outpatient (CLI) | payer MEDICARE, OTHER, SELFPAY ==
--- NOTE | ~2023-08-17 | XR_ITS ---
Clinical Indication: Emphysema PA and lateral views of the chest: Comparison: 06/18/2021 Findings: There is elevation of left hemidiaphragm with left basilar atelectasis or scarring. Right l alfredo clear.. Cardiomediastinal silhouette is stable, status post median sternotomy with pacemaker dev ice. Bones and soft tissues are unremarkable. Impression: Elevated left hemidiaphragm with left basilar atelectasis or scarring. Prior cardiac surgery with pacemaker device. Reviewed, dictated and finalized at location M. PAD KNOCKOUT WORKER Impression: Elevated left hemidiaphragm with left basilar atelectasis or scarring. Prior cardiac surgery with pacemaker device.
--- NOTE | ~2023-08-17 | NM_ITS ---
EXAMINATION: NM lung vent and perfusion DATE: 08/17/2023 09:43 INDICATION: Emphysema. TECHNIQUE: 25 mCi xenon-133 by inhalation and 5.34 mCi Tc-99m MAA by intravenous route. Scintigraphi c images of the chest were obtained. COMPARISON chest radiograph dated 08/27/2023 FINDINGS: Comminuted for elevation of left hemidiaphragm there is homogeneous radiotracer activity throughout t he lungs initially on the single breath ventilation sequence. There is retention of radiotracer activ ity left lung provided history of emphysema. There is relatively homogeneous perfusion throughout the lungs also account for the elevation the left hemidiaphragm. No discrete ventilation and perfusion mismatch is identified. IMPRESSION: 1. Low probability for pulmonary embolism. 2. Elevation the left hemidiaphragm with some delayed washout left lung consistent with obstructive p ulmonary disease. Reviewed, dictated and finalized at location A. WARE VALIDATION ENGINEER IMPRESSION: 1. Low probability for pulmonary embolism. 2. Elevation the left hemidiaphragm with some delayed washout left lung consist ent with obstructive pulmonary disease.
== END 2023-08-17 08:06 | disposition home or self-care (01) ==
LOC: ANHIMG 08:06
PROVIDERS: PCP Family Medicine; Visit Provider Internal Medicine Pulmonary Disease
DX: J43.9 Emphysema, unspecified (principal)
CPT/HCPCS: 36415; 71046; 78582; 85610; A9540; A9558

== ENCOUNTER 2023-08-23 08:02 | Outpatient (CLI) | payer MEDICARE, OTHER, SELFPAY ==
[2023-08-23 08:28] LABS: Alveolar/Arterial O2 Gradient 19.7 mmHg; Base Excess ABG -4.3 mEq/l (+/-2.0); Carboxyhemoglobin 0.3 % THb (0-2.0); Fractional Inspired Oxygen 21 %; HCO3 ABG 20.8 mEq/l (22.0-26.0); Methemoglobin ABG 0.2 %THb (0-1.5); Oxygen Content ABG 16.5 %vol (16.0-22.0); Oxygen Saturation ABG 95.9 % (95.0-100.0); PCO2 ABG 38.4 mmHg (35.0-45.0); Reduced Hemoglobin 4.5 %THb (0-5.0); Total Hemoglobin 12.3 g/dL (12.0-18.0); pH ABG 7.352 (7.350-7.450)
[2023-08-23 08:33] LABS: Device ROOM AIR; Modified Allen's Test Pass; Site Drawn RIGHT BRACHIAL
--- NOTE | 2023-08-23 14:47 | WPDSIXMINUTE ---
Six Minute Walk Procedure Procedure Performed Pulmonary Stress Test (6 min walk) Six Minute Walk Six Minute Walk: This 6 minute walk test was conducted with the patient breathing ambient air. The pre-walk baseline oxyhemoglobin saturation was 96%. The patient walked 320 m with no stops during testing. During the walk the oxyhemoglobin saturation remained in the range of 92% to 97%. Impression: No evidence of oxyhemoglobin desaturation on this testing.
== END 2023-08-23 08:03 | disposition home or self-care (01) ==
LOC: ANHPFT 08:03
PROVIDERS: PCP Family Medicine; Visit Provider Internal Medicine Pulmonary Disease
DX: J43.9 Emphysema, unspecified (principal)
CPT/HCPCS: 36600; 82375; 82805; 83050; 94618

== ENCOUNTER 2023-08-29 08:23 | Outpatient (CLI) | payer MEDICARE, OTHER, SELFPAY ==
--- NOTE | ~2023-08-29 | XR_ITS ---
EXAMINATION: SNIFF TEST W/O CXR +FLUORO<1HR DATE: 06/07/11 11:13:00 INDICATION: Prior heart surgery. Evaluate diaphragm. TECHNIQUE: Fluoroscopy was utilized for evaluation of diaphragmatic excursion with rapid inspiration. Fluorosco py exposure time 0.2 minutes minutes. 23 fluoroscopic images] COMPARISON: Chest x-ray dated 08/17/2023 FINDINGS: There is paradoxical upward motion of the left diaphragm during inspiration, consistent with phrenic nerve paralysis. The left diaphragm is elevated. Visualized portions of lung are clear. Heart size i s normal. IMPRESSION: 1. Paradoxical motion of the left diaphragm, consistent with phrenic nerve paralysis. Reviewed, dictated and finalized at location A. OYMENT PROGRAM REPRESENTATIVE IMPRESSION: 1. Paradoxical motion of the left diaphragm, consistent with phrenic nerve para lysis.
== END 2023-08-29 08:24 | disposition home or self-care (01) ==
LOC: ANHIMG 08:26
PROVIDERS: PCP Family Medicine; Visit Provider Internal Medicine Pulmonary Disease
DX: R06.09 Other forms of dyspnea (principal); Z95.2 Presence of prosthetic heart valve
CPT/HCPCS: 71046; 76000

== ENCOUNTER 2023-09-14 14:38 | Outpatient (RCR) | payer MEDICARE, OTHER, SELFPAY ==
[2023-07-11 11:58] LABS: INR 2.2
[2023-08-17 09:37] LABS: INR 2.5; Prothrombin Time 29.4 Seconds (11.1-14.7)
[2023-09-14 15:30] LABS: Prothrombin Time 33.7 Seconds (11.1-14.7)
== END 2023-10-09 23:59 | disposition home or self-care (01) ==
LOC: ANHLAB 14:38
PROVIDERS: PCP Family Medicine; Visit Provider Internal Medicine Cardiovascular Disease
DX: Z51.81 Encounter for therapeutic drug level monitoring (principal); Z79.01 Long term (current) use of anticoagulants
CPT/HCPCS: 36415; 85610

== ENCOUNTER 2023-09-26 02:57 | Day surgery (SDC) | payer MEDICARE, OTHER, SELFPAY ==
[2023-09-25 13:53] VITALS: BMI 28.0
[2023-09-26] VITALS (7 sets, daily range): BP systolic 103–127; BP diastolic 54–78; PULSE 68–75; RESP 11–20; TEMP 36.4–36.6; O2SAT 92–100; BMI 28.0
[2023-09-26 10:39] LABS: Basophils Absolute Auto 0.1 K/mm3 (0.0-0.1); Basophils Percent Auto 0.8 % (0.2-1.2); Eosinophils Absolute Auto 0.2 K/mm3 (0-0.3); Eosinophils Percent Auto 2.7 % (0-4.4); Hemoglobin 11.1 g/dL (12.0-15.0); Immature Granulocyte Absolute 0.01 K/mm3 (0.00-0.031); Immature Granulocyte Percent A 0.2 % (0-0.5); Lymphocytes Absolute Auto 1.15 K/mm3 (0.9-3.2); Lymphocytes Percent Auto 18.5 % (18.3-44.2); Mean Corpuscular HGB Conc 31.7 g/dl (32-36); Mean Corpuscular Hemoglobin 29.8 pg (26-34); Mean Corpuscular Volume 93.8 fl (80-100); Mean Platelet Volume 11.2 fl (7.4-10.4); Monocytes Absolute Auto 0.4 K/mm3 (0.1-0.6); Monocytes Percent Auto 6.6 % (2.6-8.5); Neutrophils Absolute Auto 4.4 K/mm3 (1.3-6.7); Neutrophils Percent Auto 71.2 % (45.5-73.1); Platelet Count Result 153 k/mm3 (150-375); Red Blood Count 3.73 M/mm3 (4.2-5.4); Red Cell Distribution Width 13.1 % (11.5-14.5); White Blood Count 6.2 K/mm3 (4.5-10.0)
--- NOTE | 2023-09-26 10:54 | PM.IMHP ---
H&P: HPI History of Present Illness Date/Time: 09/26/23 10:54 Chief Complaint: BiV pacemaker at replacement interval, here for generator change Narrative: Kendal Junior is a 68-year-old female followed by Dr. Sal. She has history of coronary artery disease, persistent AFib, chronic diastolic CHF, CABG, mitral valve repair, aortic valve replacement (On-X mechanical valve) on chronic anticoagulation with warfarin, and history of cardiomyopathy EF was 69% in 2021.. In she has a Biotronik biventricular pacemaker implanted in 2016 which has reached elective replacement interval. She is not pacemaker dependent in the leads are good. She was told to hold her warfarin for 5 days, and she took her last dose on 09/20/2023. INR is 1.1. She is NPO. Review of Systems Constitutional: Constitutional: Denies fever(s) Eyes: Eyes: Reports no additional eye complaints ENT: Denies epistaxis Cardiovascular: Cardiovascular: Denies chest pain, Denies pedal edema, Denies lightheadedness and Denies dyspnea Respiratory: Respiratory: Denies chest congestion and Denies dyspnea Gastrointestinal: Gastrointestinal: Denies abdominal pain and Denies hematochezia Genitourinary: Genitourinary: Reports no additional female genitourinary complaints Musculoskeletal: Musculoskeletal: Reports no additional musculoskeletal complaints Integumentary/Breasts: Skin/Breast: Reports system reviewed and no additional complaints, except as docu Neurologic: Reports system reviewed and no additional complaints, except as documented and Denies behavioral changes Psychiatric: Psychiatric: Denies behavioral changes Comments: Anxious about the procedure [facility] Past Medical History Medical History (Updated 09/26/23 @ 11:21 by Dorothy Agrawal MD) Atrial fibrillation Cardiomyopathy Chronic anticoagulation History of cardiac pacemaker HTN (hypertension) Hyperlipidemia Overweight (BMI 25.0-29.9) Pacemaker Biotronik BiV pacemaker, gen change 09/2023 Surgical History Surgical History (Updated 09/26/23 @ 11:21 by Dorothy Agrawal MD) H/O mechanical aortic valve replacement H/O mitral valve repair S/P AVR (aortic valve replacement) Family History Family History Father High cholesterol Heart disease Heart attack CABG Mother Heart disease Pacemaker Social History Social History Smoking packs per day: 1 Smoking cigarettes per day: 20.0 Years smoked: 40 Smoking pack-years: 40.00 Smoking status: Former smoker Tobacco type: cigarettes Smoking end date: 11/22/21 Alcohol intake: never Substance use: never Substance use type: does not use Living arrangements: with family Spiritual care concerns: No Meds Home Medications and Allergies Home Medications Medication Instructions Recorded Confirmed Type sertraline 100 mg tablet 100 mg PO DAILY #30 tabs 02/09/22 09/26/23 Rx spironolactone 25 mg tablet 25 mg PO DAILY #30 tabs 02/09/22 09/25/23 Rx (Aldactone) trazodone 50 mg tablet 50 mg PO HS 05/26/22 09/25/23 History albuterol sulfate 90 mcg/actuation 1 puff inhalation Q4H PRN 06/13/23 09/25/23 History aerosol inhaler Shortness Of Breath carvedilol 12.5 mg tablet 12.5 mg PO Q12H 06/13/23 09/26/23 History diphenhydramine HCl 50 mg capsule 50 mg PO QHS PRN Insomnia 06/13/23 09/25/23 History ergocalciferol (vitamin D2) 1,250 1,250 mcg PO WEEKLY 06/13/23 09/25/23 History mcg (50,000 unit) capsule famotidine 40 mg tablet 40 mg PO DAILY 06/13/23 09/26/23 History furosemide 20 mg tablet 20 mg PO DAILY 06/13/23 09/25/23 History rosuvastatin 40 mg tablet 40 mg PO DAILY 06/13/23 09/25/23 History warfarin 3 mg tablet 3 mg PO DIRECTED 06/13/23 09/25/23 History Allergies Allergy/AdvReac Type Severity Reaction Status Date / Time atorvastatin Allergy Unknown Verified 09/26/23 10:26 hyd
[2023-09-26 10:59] LABS: INR 1.1; Prothrombin Time 15.3 Seconds (11.1-14.7)
[2023-09-26 11:13] LABS: Anion Gap 7 mmol/L (8-16); Blood Urea Nitrogen 14 mg/dL (7-17); Calcium 9.8 mg/dL (8.4-10.2); Carbon Dioxide 24 mmol/L (22-30); Chloride 108 mmol/L (98-107); Estimated CRCL calculation 29 ml/min; Estimated Glomerular Filt Rate 32; Glucose 103 mg/dL (65-110); Potassium 4.5 mmol/L (3.4-5.0); Sodium 139 mmol/L (137-145)
--- NOTE | 2023-09-26 11:23 | WPDMODSED ---
Moderate Sedation Note-Pt Data Patient Data Diagnosis: Biotronik Bi V pacemaker at [facility] Present Complaint: Kendal Junior is a? 68-year-old female followed by Dr. Sal.? She has history of coronary artery disease, persistent AFib, chronic diastolic CHF, CABG, mitral valve repair, aortic valve replacement (On-X mechanical valve) on chronic anticoagulation with warfarin, and history of cardiomyopathy EF was 69% in 2021..? In she has a Biotronik biventricular pacemaker implanted in 2015 which has reached elective replacement interval.? She is not pacemaker dependent in the leads are good.? She was told to hold her warfarin for 5 days, and she took her last dose on 09/20/2023.? INR is 1.1.? ? She is NPO. Procedure to be performed/Plan: Conscious sedation Generator change Allergies Allergy/AdvReac Type Severity Reaction Status Date / Time atorvastatin Allergy Unknown Verified 09/26/23 10:26 hydrocodone [From Vicodin] Allergy Itching Verified 09/26/23 10:26 atropine AdvReac Dizziness Verified 09/26/23 10:26 Sulfa (Sulfonamide AdvReac Vomiting Verified 09/26/23 10:26 Antibiotics) Home Medications Medication Instructions Recorded Confirmed Type sertraline 100 mg tablet 100 mg PO DAILY #30 tabs 02/09/22 09/26/23 Rx spironolactone 25 mg tablet 25 mg PO DAILY #30 tabs 02/09/22 09/25/23 Rx (Aldactone) trazodone 50 mg tablet 50 mg PO HS 05/26/22 09/25/23 History albuterol sulfate 90 mcg/actuation 1 puff inhalation Q4H PRN 06/13/23 09/25/23 History aerosol inhaler Shortness Of Breath carvedilol 12.5 mg tablet 12.5 mg PO Q12H 06/13/23 09/26/23 History diphenhydramine HCl 50 mg capsule 50 mg PO QHS PRN Insomnia 06/13/23 09/25/23 History ergocalciferol (vitamin D2) 1,250 1,250 mcg PO WEEKLY 06/13/23 09/25/23 History mcg (50,000 unit) capsule famotidine 40 mg tablet 40 mg PO DAILY 06/13/23 09/26/23 History furosemide 20 mg tablet 20 mg PO DAILY 06/13/23 09/25/23 History rosuvastatin 40 mg tablet 40 mg PO DAILY 06/13/23 09/25/23 History warfarin 3 mg tablet 3 mg PO DIRECTED 06/13/23 09/25/23 History Sedation/Anesthesia: No previous sedation/anesthesia problems (including family history). [facility] Past Medical History Medical History (Updated 09/26/23 @ 11:21 by Dorothy Agrawal MD) Atrial fibrillation Cardiomyopathy Chronic anticoagulation History of cardiac pacemaker HTN (hypertension) Hyperlipidemia Overweight (BMI 25.0-29.9) Pacemaker Biotronik BiV pacemaker, gen change 09/2023 Surgical History Surgical History (Updated 09/26/23 @ 11:21 by Dorothy Agrawal MD) H/O mechanical aortic valve replacement H/O mitral valve repair S/P AVR (aortic valve replacement) Family History Family History Father High cholesterol Heart disease Heart attack CABG Mother Heart disease Pacemaker Social History Social History Smoking packs per day: 1 Smoking cigarettes per day: 20.0 Years smoked: 40 Smoking pack-years: 40.00 Smoking status: Former smoker Tobacco type: cigarettes Smoking end date: 11/22/21 Alcohol intake: never Substance use: never Substance use type: does not use Living arrangements: with family Spiritual care concerns: No Mod Sed Physical Exam Physical Exam Pre Procedural Exam: Normal: Appearance, Eyes, Ears, Nose, Neck, Throat, Airway, Lungs, Heart Size, Heart Rate (Falls valve click), Heart Rhythm, Neuro Exam, Abdomen, Extremities and Skin (Skin over pacemaker incision is well healed) Hours since solid foods: 12 (hr) Hours since liquid intake: 12 (hr) Mallampati Classification: class II Internal Medicine - PN: Obj Da Vital Signs Vital Signs: Vital Signs - 24 hr 09/26/23 10:28 Temperature 97.8 F Pulse Rate 68 Respiratory Rate 17 Blood Pressure 126/78 Pulse Oximetry 100 Oxygen Delivery Room Air Labs 09/26/23 10:24
--- NOTE | 2023-09-26 12:44 | PM.OP ---
Procedure Note - Brief Procedure Note - Brief Date of procedure: 09/26/23 [facility] Post-op diagnosis: Other (s/p generator change) Procedure performed: Sedation Biotronik biventricular pacemaker generator change Surgeon: Dorothy Agrawal MD Anesthesia: local ( with conscious sedation) Findings: underlying sinus rhythm Description of procedure: uneventful generator change Complications: No immediate complications Condition: Stable Disposition: Observation
--- NOTE | 2023-09-26 12:45 | W.PM.PROC2 ---
Procedure Note - Detailed Date of Procedure 09/26/23 Pre-op Diagnosis [facility] Post-op Diagnosis Other ( status post generator change) Procedure Performed PROCEDURE: Conscious sedation Generator change Surgeon Dorothy Agrawal MD Anesthesia Local ( with conscious sedation) Indications Kendal Junior is a? 68-year-old female followed by Dr. Sal.? She has history of coronary artery disease, persistent AFib, chronic diastolic CHF, CABG, mitral valve repair, aortic valve replacement (On-X mechanical valve) on chronic anticoagulation with warfarin, and history of cardiomyopathy EF was 69% in 2021..? In she has a Biotronik biventricular pacemaker implanted in 2015 which has reached elective replacement interval.? She is not pacemaker dependent in the leads are good.? She was told to hold her warfarin for 5 days, and she took her last dose on 09/20/2023.? INR is 1.1.? ? She is NPO. Findings not pacemaker dependent Description of Procedure CONSCIOUS SEDATION: Assessment: The patient has no history of anesthesia problems. The oropharynx is clear. The patient was deemed to be a good candidate for conscious sedation. The patient had continuous hemodynamic and oximetric monitoring during the procedure. Start time: 11:57 a.m. Completion time: 12:41 p.m. Total conscious sedation time: 44 minutes Medications: Versed 2 mg, fentanyl 100 mcg IV push Trained observer: Ratna Back RN Outcome: The patient tolerated the procedure well with no complications. PROCEDURE: After informed consent, the patient is brought to the lab analyst and the left prepectoral area was prepped and draped in usual fashion. The patient was given a prophylactic antibiotic intravenously with Ancef 1 g push. After conscious sedation as described above, the area was anesthetized with 1% lidocaine. A skin incision is made with the Plasma Blade and carried down to the pacing capsule which was also incised. Hemostasis is obtained using the Plasma Blade. The lead/s was/were freed from the underlying capsule and inspected and were found to be intact. The pulse generator was delivered from the pocket. The lead/s was/were disconnected from the existing device and reconnected to the new device. A gentle tug could not remove it/them. The device and lead/s was/were interrogated and found to be functioning appropriately. The area was copiously irrigated with antibiotic-containing solution. [facility], thanreplaced in the pocket. The subcutaneous tissues were closed in a two-layer fashion with interrupted 2 0 Vicryl sutures and the skin was closed in a continuous fashion using 4 0 Vicryl. The area was cleansed, an Aquacel dressing applied. The patient tolerated the procedure well with no complications. Estimated blood loss was negligible. THRESHOLD INFORMATION: Atrial lead: Sensing 0.5 mV, impedance 400 Ohms, threshold 1.25 volts at 0.5 milliseconds Right ventricular lead: Sensing greater than 12 mV, impedance 430 Ohms, threshold 0.875 volts at 0.5 milliseconds Left ventricular lead: Impedance 1150 Ohms, threshold 1.0 volts at 0.5 milliseconds PROGRAMMED PARAMETERS: DDDR 70-130 Implants DEVICE INFORMATION: new pulse generator: [employer] Quadra Allure 3562, serial [id number] Existing atrial lead: [employer] model 2088 TC/ 46 cm, serial [id number] implanted 08/16/2015 existing RV lead: [employer] model 2088 TC/ 52cm, serial [id number], implanted 08/16/2015 Existing LV lead: [employer] model 1458Q/86 cm, serial [id number], implanted 08/16/2015 Explanted device: [employer] model 3242, serial [id number] Estimated Blood Loss 5 (cc) Complications No immediate complications Condition Stable Disposition Observation
== END 2023-09-26 14:35 | disposition home or self-care (01) ==
PROVIDERS: PCP Family Medicine; Visit Provider Internal Medicine Cardiovascular Disease
DX: Z45.010 Encounter for checking and testing of cardiac pacemaker pulse generator [battery] (principal); I48.19 Other persistent atrial fibrillation; I25.10 Atherosclerotic heart disease of native coronary artery without angina pectoris; I11.0 Hypertensive heart disease with heart failure; I50.32 Chronic diastolic (congestive) heart failure; I42.9 Cardiomyopathy, unspecified; E78.5 Hyperlipidemia, unspecified; Z95.1 Presence of aortocoronary bypass graft; Z95.2 Presence of prosthetic heart valve; Z79.01 Long term (current) use of anticoagulants; Z79.51 Long term (current) use of inhaled steroids; Z87.891 Personal history of nicotine dependence
CPT/HCPCS: 33229; 36415; 80048; 85025; 85610; C2621; J0690; J2250; J3010; J7040

== ENCOUNTER 2023-10-19 14:40 | Outpatient (CLI) | payer MEDICARE, OTHER, SELFPAY ==
--- NOTE | ~2023-10-19 | CT_ITS ---
EXAMINATION: CT lung screening DATE: 10/19/2023 15:14 INDICATION: Z87.891 - Personal history of nicotine dependence TECHNIQUE: Computed tomography (CT) of the chest was performed without intravenous contrast. Addition al 3D reconstructions utilizing coronal maximum intensity projection (MIP) were performed. Automated exposure control and iterative reconstruction technique were employed. The dose-length product was 12 1.87 mGy-cm. COMPARISON: Chest CT dated 10/18/23 FINDINGS: Mild emphysema. Unchanged elevation of the left hemidiaphragm with horizontal band of discoid atelect asis/scarring in the left lower lobe. Additional discoid atelectasis in the lingula. 12 x 7 mm nodule in additional linear band of discoid atelectasis in the apical segment of the left upper lobe. Mild cardiomegaly. Atherosclerotic coronary artery calcification. Median sternotomy wires and multiple juan gical clips consistent coronary arterial bypass grafting. There is also been prior aortic valve repai r. Dual lead pacemaker seen with leads projecting over the expected locations of the right atrium and right ventricle. Thoracic aorta is normal in caliber. No pathologically enlarged thoracic lymphadeno jose. Cholecystectomy clips the gallbladder fossa. IMPRESSION: 1. Lung RADS 0 (Incomplete) based upon a 12 x 7 mm nodular opacity in the left upper lobe along a fabby ear band of discoid atelectasis/scarring which is a newly identified nodule at baseline be considered category 4A. Per report from the prior outside imaging performed on 10/18/2023 this nodule was presen t on an outside study dated 12/07/2021 which is unavailable for comparison. Recommend correlation with any prior outside imaging. If stability of the nodule since 12/07/2021 could be confirmed, the nodule w ould be considered Lung-RADS category 2: Benign appearance or behavior. Continue annual screening wit h noncontrast low-dose chest CT in 12 months. Reviewed, dictated and finalized at location B. IMPRESSION: 1. Lung RADS 0 (Incomplete) based upon a 12 x 7 mm nodular opacity in the left upper lobe along a linear band of discoid atelectasis/scarring which is a newly identified nodule at baseline be considered category 4A. Per report from the [facility] outside imaging performed on 10/18/2023 this nodule was present on an outsi de study dated 12/07/2021 which is unavailable for comparison. Recommend correlat ion with any prior outside imaging. If stability of the nodule since 12/07/2021 c ould be confirmed, the nodule would be considered Lung-RADS category 2: Benign appearance or behavior. Continue annual screening with noncontrast low-dose loraine st CT in 12 months.
[2023-10-19 15:18] LABS: INR 1.9; Prothrombin Time 22.9 Seconds (11.1-14.7)
== END 2023-10-19 14:41 | disposition home or self-care (01) ==
LOC: ANHIMG 14:42
PROVIDERS: PCP Family Medicine; Visit Provider Internal Medicine Pulmonary Disease
DX: Z12.2 Encounter for screening for malignant neoplasm of respiratory organs (principal); Z87.891 Personal history of nicotine dependence
CPT/HCPCS: 36415; 71271; 85610

== ENCOUNTER 2023-11-12 17:20 | Emergency (ER) | payer MEDICARE, OTHER, SELFPAY ==
--- NOTE | 2023-11-12 17:30 | ECG_ITS ---
SEE SCANNED COPY FOR CONFIRMED REPORT. MTDD
[2023-11-12 17:31] VITALS: BP 121/83; PULSE 94; RESP 20; TEMP 36.6; O2SAT 97
== END 2023-11-12 19:19 | disposition left against medical advice (07) ==
LOC: ANHED 19:00
PROVIDERS: Emergency Provider Emergency Medicine; PCP Family Medicine
DX: R42 Dizziness and giddiness (principal)
CPT/HCPCS: 93005; 99199

== ENCOUNTER 2023-11-23 13:30 | Outpatient (RCR) | payer MEDICARE, OTHER, SELFPAY | END 2023-11-23 23:59 | disposition home or self-care (01) | LOC: ANHCPREHAB 13:30 | PROVIDERS: PCP Family Medicine; Visit Provider Internal Medicine Pulmonary Disease | DX: J44.9 Chronic obstructive pulmonary disease, unspecified (principal) | CPT/HCPCS: 36415; 71271; 85610; 94625 ==

== ENCOUNTER 2023-12-17 10:55 | Outpatient (CLI) | payer MEDICARE, OTHER, SELFPAY ==
[2023-12-17 11:52] LABS: NT Pro B Type Natriuretic Pept 1790 pg/mL (19.9-100)
== END 2023-12-17 10:56 | disposition home or self-care (01) ==
LOC: ANHLAB 10:58
PROVIDERS: PCP Family Medicine; Visit Provider Nurse Practitioner Adult Health
DX: R06.02 Shortness of breath (principal)
CPT/HCPCS: 36415; 83880; 85610

== ENCOUNTER 2024-01-16 14:09 | Outpatient (CLI) | payer MEDICARE, OTHER, SELFPAY ==
--- NOTE | ~2024-01-16 | CT_ITS ---
EXAMINATION: CT diagnostic chest wo con DATE: 01/16/2024 14:27 INDICATION: SOB, S/P MITRAL VALVE REPAIR TECHNIQUE: Computed tomography (CT) of the chest was performed without intravenous contrast. Addition al 3D reconstructions utilizing coronal maximum intensity projection (MIP) were performed. Automated exposure control and iterative reconstruction technique were employed. The dose-length product was 21 9.08 mGy-cm. COMPARISON: 10/19/2023 FINDINGS: Mild emphysema. Chronic elevation of left hemidiaphragm with unchanged compressive atelectasis at the basilar left lower lobe. Additional unchanged discoid atelectasis in the left upper lobe and lingula . No significant interval change in a chronic 11 x 7 mm nodular opacity along the medial aspect of th e head of discoid atelectasis at the left upper lobe which previously measured 12 x [address] dated 07/12/2022. No new pulmonary nodules, pneumonia, pulmonary edema or pleural effusion. Mild cardiomegaly . No pericardial effusion. Postoperative change of prior median sternotomy, coronary artery bypass gr afting and aortic valve repair. Cardiac pacemaker leads with tips at the right atrium and at the apex of the right ventricle. Thoracic aorta is normal in caliber. No pathologically enlarged thoracic lym phadenopathy. Cholecystectomy clips at the gallbladder fossa. Chronic L1 compression fracture with ch nereyda of prior vertebroplasty. IMPRESSION: 1. Chronic elevation of left hemidiaphragm with partial collapse of the basilar segments of the left lower lobe and additional discoid atelectasis at the lingula and left upper lobe. No acute cardiopulm onary disease. 2. Mild cardiomegaly. 3. 11 x 7 mm nodular opacity along a band of discoid atelectasis in the left upper lobe unchanged sin ce 07/12/2022. Recommend continued annual low-dose noncontrast chest CT follow-up. Reviewed, dictated and finalized at location A. IMPRESSION: 1. Chronic elevation of left hemidiaphragm with partial collapse of the basilar segments of the left lower lobe and additional discoid atelectasis at the ling chela and left upper lobe. No acute cardiopulmonary disease. 2. Mild cardiomegaly. 3. 11 x 7 mm nodular opacity along a band of discoid atelectasis in the left up per lobe unchanged since 07/12/2022. Recommend continued annual low-dose noncontr ast chest CT follow-up.
== END 2024-01-16 14:10 | disposition home or self-care (01) ==
LOC: ANHIMG 14:11
PROVIDERS: PCP Family Medicine; Visit Provider Nurse Practitioner Adult Health
DX: R06.02 Shortness of breath (principal); Z95.2 Presence of prosthetic heart valve; I51.7 Cardiomegaly; R91.8 Other nonspecific abnormal finding of lung field
CPT/HCPCS: 71250

== ENCOUNTER 2024-04-04 13:30 | Outpatient (RCR) | payer MEDICARE, OTHER, SELFPAY | END 2024-04-29 08:28 | disposition home or self-care (01) | LOC: ANHCPREHAB 13:30 | PROVIDERS: PCP Family Medicine; Visit Provider Internal Medicine Pulmonary Disease | DX: J43.9 Emphysema, unspecified (principal) | CPT/HCPCS: 94625; G0239 ==

== ENCOUNTER 2024-04-21 11:57 | Outpatient (CLI) | payer MEDICARE, OTHER, SELFPAY ==
--- NOTE | 2024-04-22 12:36 | WPDSIXMINUTE ---
Six Minute Walk Procedure Procedure Performed Pulmonary Stress Test (6 min walk) Six Minute Walk Six Minute Walk: This 6 minute walk test was carried out with the patient breathing ambient air. The baseline pre walk oxyhemoglobin saturation was 96%. The patient walked 305 m with no stops during testing. During the walk the oxyhemoglobin saturation remained in the range of 90% to 94%. Impression: No evidence of oxyhemoglobin desaturation on this testing.
== END 2024-04-21 11:58 | disposition home or self-care (01) ==
LOC: ANHPFT 12:00
PROVIDERS: PCP Family Medicine; Visit Provider Internal Medicine Cardiovascular Disease
DX: J44.9 Chronic obstructive pulmonary disease, unspecified (principal)
CPT/HCPCS: 94618

== ENCOUNTER 2024-09-01 12:40 | Emergency (ER) | payer MEDICARE, OTHER, SELFPAY ==
--- NOTE | ~2024-09-01 | CT_ITS ---
EXAMINATION: CT abdomen pelvis wo con DATE: 09/01/2024 15:13 INDICATION: Left flank pain TECHNIQUE: Computed tomography (CT) of the abdomen and pelvis was performed without intravenous contr ast. Automated exposure control and iterative reconstruction technique were employed. The dose-length product was 460.68 mGy-cm. COMPARISON: 01/24/2022 FINDINGS: Bibasilar atelectasis, more prominent on the left where there is unchanged elevation the left hemidia phragm. Mild emphysema. No pleural effusion. Cardiomegaly. Postoperative change of prior median akhtar otomy and coronary artery bypass grafting. There are also mitral and aortic valve repairs. 3-lead car diac pacemaker with lead tips at the right atrium, right ventricle and in a coronary vein overlying t he lateral wall the left ventricle having traversed the coronary sinus. No pericardial effusion. The previously seen projecting scattered gastrostomy tube is been removed with linear tract of abdomi nal wall scarring along its former course. Cholecystectomy clips the gallbladder fossa. Liver, spleen , pancreas, bilateral adrenal glands and kidneys are normal. Sigmoid diverticula without adjacent fro m trace stranding to suggest diverticulitis. Remainder the bowels including the appendix are normal. Bladder is normal. The uterus is not identified and has likely been surgically resected. No free intr aperitoneal gas or fluid. No pathologically enlarged abdominal or pelvic lymphadenopathy. Chronic L1 compression fracture with change of prior vertebroplasty. IMPRESSION: 1. No urolithiasis or acute intra-abdominal/pelvic process. 2. Mild emphysema with bibasilar atelectasis, more prominent on the left where there is unchanged shady vation the left hemidiaphragm. 3. Cardiomegaly. Reviewed, dictated and finalized at location B. HEALTH NURSE EDUCATOR IMPRESSION: 1. No urolithiasis or acute intra-abdominal/pelvic process. 2. Mild emphysema with bibasilar atelectasis, more prominent on the left where there is unchanged elevation the left hemidiaphragm. 3. Cardiomegaly.
[2024-09-01 12:48] VITALS: BP 114/68; PULSE 89; RESP 16; TEMP 36.6; O2SAT 98
--- OUTSIDE RECORDS SUMMARY | 2024-09-01 14:18 | XMS_ITS | Clinical Summary ---
Author Organization [facility] Address [address] [place] [phone] Care Team Providers Care Microbiology Director Name Role Phone Quirino Berger MD Primary Care Provider Sameer Lewis RN Unavailable [phone] Blake Dee MD Unavailable [phone] Allergies Active Allergy Reactions Criticality Noted Date Comments Atropine Hypotension High 10/26/2011 SEVERE hypotension Hydrocodone-Acetamino phen Itching Medium 09/12/2013 Sulfa (Sulfonamide Antibiotics) Nausea only Low 06/21/2022 Sulfites Nausea And Vomiting High 10/26/2011 Medications diphenhydrAMINE 25 mg capsule Take 2 tablet/capsule (50 mg total) by mouth nightly as needed for sleep Active albuterol HFA (Proventil HFA) 90 mcg/actuation inhalerIndications :Centrilobular emphysema (HCC) Inhale 2 puffs every 4 (four) hours as needed for wheezing or shortness of breath 6.73 each 4 10/24/19 23 025 Active Breztri Aerosphere 160-9-4.8 mcg/actuation inhalerIndications :Bronchospasm Prevention with COPD Inhale 2 puffs 2 (two) times a day 10/25/19 24 Active fluticasone propionate (FLONASE) 50 mcg/actuation nasal spray Administer 2 sprays into each nostril daily 3 each 4 11/13/19 24 Active carvediloL (COREG) 12.5 mg tablet TAKE 1 TABLET BY MOUTH TWICE A DAY WITH FOOD 180 tablet 3 11/23/19 24 Active famotidine (PEPCID) 40 mg tabletIndications: Gastroesophageal reflux disease without esophagitis Take 1 tablet (40 mg total) by mouth daily 90 tablet 2 02/27/20 24 Active traZODone (DESYREL) 50 mg tabletIndications: Insomnia due to medical condition Take 2 tablets (100 mg total) by mouth nightly 180 tablet 1 05/06/20 24 Active dapagliflozin propanediol (Farxiga) 5 mg tabletIndications: Chronic Kidney Disease Take 1 tablet (5 mg total) by mouth daily 30 tablet 3 05/28/20 24 Active rosuvastatin (CRESTOR) 40 mg tabletIndications: Mixed hyperlipidemia Take 1 tablet (40 mg total) by mouth daily 90 tablet 3 06/13/20 24 025 Active aspirin 81 mg enteric coated tabletIndications: S/P CABG x 1 Take 1 tablet (81 mg total) by mouth daily 90 tablet 3 06/13/20 24 025 Active Additional Information Patient not taking.Reported on 08/21/2024 furosemide (LASIX) 20 mg tabletIndications: Chronic heart failure with preserved ejection fraction (CMS/HCC) ([facility]) Take 1 tablet (20 mg total) by mouth daily 90 tablet 3 06/13/20 24 025 Active warfarin (COUMADIN) 3 mg tablet TAKE 1.5 TABS BY MOUTH 4 DAYS A WEEK AND TAKE 1 TABLET 3 DAYS A WEEK OR DIRECTED BY PHYSICIAN 108 tablet 07/07/20 24 Active spironolactone (ALDACTONE) 25 mg tablet TAKE 1 TABLET (25 MG TOTAL) BY MOUTH DAILY. 90 tablet 1 07/17/19 25 Active sertraline (ZOLOFT) 100 mg tablet TAKE 1 TABLET BY MOUTH EVERY DAY 90 tablet 1 07/17/19 25 Active tamsulosin (FLOMAX) 0.4 mg extended release capsuleIndications :Urolithiasis Take 1 capsule (0.4 mg total) by mouth daily 30 capsule 08/21/19 25 Active ondansetron ODT (ZOFRAN-ODT) 4 mg disintegrating tablet Take 1 tablet (4 mg total) by mouth every 8 (eight) hours as needed for nausea or vomiting 20 tablet 08/24/19 25 Active ciprofloxacin (CIPRO) 500 mg tablet Take 1 tablet (500 mg total) by mouth daily 6 tablet 08/25/19 25 Active ciprofloxacin (CIPRO) 500 mg tabletIndications: Urinary Tract/Genitourinar y Infection Take 1 tablet (500 mg total) by mouth daily for 7 days 7 tablet 08/21/19 25 025 Active Problems Problem Noted Date Diagnosed Date Acute on chronic heart failu re with preserved ejection fraction ([facility]/HCC) 05/28/2024 Chronic renal disease, stage IV ([facility]) 2023 Atrial fibrillation ([facility]) 10/23/2023 Abnormal PFTs (pulmonary function tests) 024 Depression, recurrent ([facility]) 05/21/2023 Encounter for Medicare annual wellness exam 05/09 Assessment & Plan (05/28/2024 1:10 PM PATIENT FINANCIAL COUNSELOR): A(n) initial well visit to establish care has been performed today. Kendal Junior is not up to date on screening tests. She is in need of DEXA. She is up to date on needed preventative vaccinations. We discussed healthy lifestyle habits, educational material has been given. Medications reviewed, changes documented as per the medical record and discussed with patient along with risks vs benefits. Specific topics reviewed: drugs, ETOH, and tobacco, importance of regular dental care, importance of regular exercise, importance of varied diet, limit TV, media violence, minimize junk food, and seat belts. Return in 1 year Assessment & Plan (05/21/2023 3:45 PM PATIENT FINANCIAL COUNSELOR): A(n) yearly Medicare Annual Wellness Visit has been performed today. Kendal Junior is not up to date on screening tests. She is in need of Breast cancer screening, Lung cancer screening, and Cholesterol screening. She is not up to date on needed preventative vaccinations; She is in need of Influenza and Covid-19 (booster). We discussed healthy lifestyle habits, educational material has been given. Medications reviewed, changes documented as per the medical record and discussed with patient along with risks vs benefits. Return in 6 months Stage 3a chronic kidney disease 12/24/2022 Assessment & Plan (12/24/2022 11:45 AM CDT): Will decrease furosemide to [id number] dosing given the downward drift on the renal function Replacing pantoprazole with famotidine for the same reason Monitor BP, the amlodipine has bene stopped, carvedilol recently increase Continuing current regimen overall Discussed improving hydration Referral to kidney doctor ordered Nausea and vomiting 07/25/2022 Assessment & Plan (07/25/2022 1:31 PM PATIENT FINANCIAL COUNSELOR): Try stop cannabis HS Also try benadryl HS Report back by phone At risk for amiodarone toxicity with shelter u se 07/21/2022 Insomnia due to medical condition 03/24/2022 Assessment & Plan (03/24/2022 5:17 PM CDT): Cross-taper to trazodone Week 1: remeron 1/2 tab qhs x 2 weeks plus trazodone 1/2 tab qhs x 2 weeks Week 3: trazodone 1 tab qhs and stop remeron Chronic heart failure with p reserved ejection fraction (CMS/HCC) 03/16/2022 S/P CABG x 1 03/16/2022 S/P mitral valve repair 03/03/2022 halfway (current) use of anticoagulants 2021 Aftercare following surgery 03/02/2022 Hospital discharge follow-up 02/22/2022 Assessment & Plan (02/22/2022 8:06 PM CDT): I have reviewed the hospital record, medications, and relevant testing from Kendal Junior's recent admission. Complications and discharge plan have been noted, reviewed. Post-discharge testing has been ordered. Will increase remeron to 15 mg qhs Continuing current regimen otherwise, updated Will look into options for removal of G-button; likely Dr. Gomes or Katerine at [facility] May add meal supplement 1 daily between meals (Boost, Ensure, for example) Correction: doesn't appear defibrillator was placed, still bi-valve pacemaker Mobility impaired 02/22/2022 Assessment & Plan (02/22/2022 8:06 PM CDT): Kendal J Vernon has a mobility limitation that significantly impairs ability to participate in one or more mobility-related activities of daily living (MRADLs) such as toileting, feeding, dressing, grooming, and bathing in customary locations in the home. Patient's mobility limitation cannot be sufficiently resolved by the use of an appropriately fitted cane or walker. Use of a manual wheelchair will significantly improve the patient's ability to participate in MRADLs and the patient will use it on a regular basis in the home. Patient has a caregiver who is available, willing, and able to provide assistance with the wheelchair. Open wound of lateral abdominal wall with compli cation 12/24/2021 Overview (06/21/2022): Last Assessment & Plan: Wound vac Wound care as needed Critical illness myopathy 12/20/2021 Status post mechanical aortic valve replacement 11/22/2021 Assessment & Plan (12/03/2021 7:58 AM CDT): Back on IV UFH Follow PTT and signs of bleeding Age-related osteoporosis wit hout current pathological fracture 09/01/2021 H/O cardiomyopathy 08/08/2021 History of tobacco abuse 08/08/2021 Shortness of breath 08/08/2021 Coronary artery disease invo lving klamath coronary artery of klamath heart without angina pectoris 08/08/2021 Chronic anticoagulation 08/08/2021 Ankle swelling 02/16/2021 Acute urinary tract infection 12/16/2020 Dehydration 12/15/2020 Incomplete emptying of bladder 12/15/2020 Cardiac pacemaker in situ 08/04/2020 Smoker 08/03/2020 Smokers' cough 07/30/2020 Osteoarthritis of right knee 06/11/2019 Overview (08/01/2021): Dr. River at [facility], ortho Dr. Parks ortho 2017 Arthritis of knee 06/10/2019 Anxiety 01/24/2019 Overview (08/01/2021): Buspar she didn't like. Paroxysmal atrial fibrillation (CMS/HCC) 019 Overview (06/21/2022): Last Assessment & Plan: On Eliquis Aortic valve replaced 11/14/2018 Overview (08/01/2021): 12/[address] surgeon at [facility]. Spondylosis of lumbar region without myelopathy or radiculopathy 11/30/2015 Overview (08/01/2021): X-ray 11/2015 Essential hypertension 10/20/2015 Status post biventricular pacemaker 10/20/2015 Overview (10/04/2023): [employer] BIV Pacemaker. Dx; CM, CHF, LBBB, PAF. DOI 09/26/2023- [facility]. Chronic leads 08/16/2015-[place]. [place] remote transfer requested. Device is NOT MRI compatible-confirmed 09/15/21. Dr. Nelly VELÁSQUEZ at [facility]. Aug 2015. Osteopenia 01/29/2015 Overview (08/01/2021): DEXA 01/2015 CHF (congestive heart failure), NYHA class III ( [facility]) 12/25/2012 Overview (08/01/2021): ECHO 05/2014 EF about 40% EF about 65% 2016 [address] Dr. Wahl at [facility]. Last Assessment & Plan: Status: Stable Interim History: No weight gain or any other symptoms. Continue present treatment. Pulmonary HTN 11/18/2012 Overview (08/01/2021): [place] documentation seen on ECHO. Pulmonary nodule, left 11/18/2012 Overview (08/01/2021): Left lower per [place] documentation. S/P cholecystectomy 11/18/2012 S/P hysterectomy with oophorectomy 11/18/2012 Overview (08/01/2021): Per [place]. Chronic pain 12/06/2011 GERD (gastroesophageal reflux disease) 2 Depression 10/26/2011 Overview (08/01/2021): Last Assessment & Plan: Status: Stable Interim History: Mood 5-6. Not suicidal or homicidal. Will adjust med's today. Discussed grieving counseling in detail. Patient will call [facility] and get it. Recheck in 2 weeks. Mixed hyperlipidemia 10/26/2011 Overview (08/01/2021): [place] wants her on Lipitor 40mg qhs Last Assessment & Plan: Status: Stable Interim History: No myalgias. Patient on Lipitor 40 mg qd. Recheck in 3 months labs. Resolved Problems Problem Noted Date Diagnosed Date Resolved Date Other pneumothorax 12/10/2021 2 Assessment & Plan (12/11/2021 8:32 AM CDT): Todays chest x-ray suggests enlarging a right pneumothorax. Defer to CVR. May require replacement of chest tube. 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 Sodium corrected Nonrheumatic mitral valve regurgitation 11/28/2021 12/20/2021 Assessment & Plan (12/14/2021 8:05 AM CDT): MV repair, RVAD / ECMO 5/23 RVAD explant on 12/07 Follow clinically Acute respiratory failure 11/24/2021 Overview (06/21/2022): Last Assessment & Plan: decannulated Wean Down FiO2. Stoma care Assessment & Plan (12/14/2021 8:05 AM CDT): Vent support as needed, but weaning well Off ECMO (oxygenator removed 12/01) Pulmonary hygiene BD's as needed Hemorrhagic shock (CMS/HCC) 11/24/2021 12/14/2021 Assessment & Plan (12/09/2021 8:41 AM CDT): Transfuse as necessary. Support hemoglobin to 7 grams/deciliter. CT/ ICU managing Acute mediastinitis 11/24/2021 12/09/19 Assessment & Plan (11/24/2021 7:17 AM CDT): Abx Await culture data Continue other care Nonrheumatic aortic valve stenosis 11/10/2021 12/20/2021 Overview (11/10/2021): Added automatically from request for surgery [id number] Prosthetic aortic valve stenosis 09/05/2021 12/20/2021 Statin myopathy 08/08/2021 12/20/2021 Systolic murmur 08/08/2021 12/20/2021 Encounter for medical examin teetee to establish care 08/01/2021 12/20/2021 Assessment & Plan (08/03/2021 10:25 AM PATIENT FINANCIAL COUNSELOR): A initial well visit to establish care has been performed today. Kendal Junior is not up to date on screening tests. She is in need of Breast cancer screening, Lung cancer screening, Colon cancer screening, Cholesterol screening and Cervical cancer screening- these have been ordered. She is not up to date on needed preventative vaccinations; She is in need of Influenza, Zoster and Covid-19 (booster). These have been ordered/arranged unless otherwise indicated. BP is controlled Retail Sales Associate appointment next week. Symptom-guerra, controlled Continuing current regimen Baseline labs ordered DEXA ordered Referral to GI for colonoscopy and GERD ordered Mammogram ordered as well I strongly recommend you get the Shingrix vaccine; you may first call your insurance and see if the coverage is there first (as well as where they would prefer you get it done), as it is expensive; alternatively, your pharmacy may be able to look up the coverage for you as well. Insulin resistance 12/18/2014 2 LBBB (left bundle branch block) 11/18/2012 12/20/2021 Overview (08/01/2021): Raz Villegas at [facility] plate driller. Nonrheumatic mitral valve regurgitation 11/18/2012 12/20/2021 Overview (08/01/2021): Emilie at [facility] plate driller. Message from [place] sent at 11/15/2018 4:29 PM [facility] ----- Co Dr. Farnsworth. Just FY regarding my hospital visit, I have an appointment with Dr. Luke rodriguez at [facility] on This Sunday for my TAVR work up. Last Assessment & Plan: Status: Stable Interim History: Positive murmur but no symptoms at present. Continue with present treatment. Biventricular heart failure (CMS/HCC) 11/18/2012 12/20/2021 Assessment & Plan (12/14/2021 8:07 AM CDT): S/p CABG, MVR Encounters Date Type Department Care Team Description 08/24/2024 Results Follow-Up [facility] Primary Care at [address] [phone] Quirino Berger MD 08/22/2024 3:37 PM PATIENT FINANCIAL COUNSELOR - 08/22/2024 11:59 PM PATIENT FINANCIAL COUNSELOR Hospital Encounter [facility] [address] [place] [phone] Left flank pain Discharge Disposition: Discharge to home or self care 08/21/2024 3:58 PM PATIENT FINANCIAL COUNSELOR - 08/21/2024 11:59 PM PATIENT FINANCIAL COUNSELOR Hospital Encounter [address] [address] Left flank pain Discharge Disposition: Discharge to home or self care 08/21/2024 3:30 PM PATIENT FINANCIAL COUNSELOR Office Visit [facility] Primary Care at [address] [phone] Quirino Berger MD Left flank pain (Primary Dx); Encounter for screening mammogram for malignant neoplasm of breast 08/21/2024 Nurse Triage [facility] Primary Care at [address] [phone] Quirino Berger MD 08/15/2024 1:30 PM PATIENT FINANCIAL COUNSELOR Office Visit [facility] at [address] [place] [phone] Blake Dee MD Coronary artery disease involving klamath coronary artery of klamath heart without angina pectoris (Primary Dx); Chronic heart failure with preserved ejection fraction (CMS/HCC) (HCC); Essential hypertension; Mixed hyperlipidemia; Paroxysmal atrial fibrillation (CMS/HCC) (HCC); Chronic anticoagulation 08/14/2024 12:15 PM PATIENT FINANCIAL COUNSELOR Lab [facility] Outpatient Lab at [address] [phone] Mixed hyperlipidemia (Primary Dx) 08/14/2024 12:10 PM PATIENT FINANCIAL COUNSELOR - 08/14/2024 11:59 PM PATIENT FINANCIAL COUNSELOR Hospital Encounter [address] [address] Status post mechanical aortic valve replacement; Paroxysmal atrial fibrillation (CMS/HCC) (HCC); Chronic anticoagulation Discharge Disposition: Discharge to home or self care 08/14/2024 Anticoagulation Visit [facility] [address] [place] [phone] Shraddha Hebert RN termite technician (current) use of anticoagulants (Primary Dx); Atrial fibrillation, unspecified type (HCC) 08/07/2024 Anticoagulation Visit [facility] [address] [place] [phone] Melanie Callejas RN termite technician (current) use of anticoagulants (Primary Dx); Atrial fibrillation, unspecified type (HCC) 08/06/2024 12:00 PM PATIENT FINANCIAL COUNSELOR Lab [facility] Outpatient Lab at [address] [phone] Essential hypertension (Primary Dx) 08/06/2024 11:12 AM PATIENT FINANCIAL COUNSELOR - 08/06/2024 11:59 PM PATIENT FINANCIAL COUNSELOR Hospital Encounter [address] [address] Status post mechanical aortic valve replacement; Paroxysmal atrial fibrillation (CMS/HCC) (HCC); Chronic anticoagulation Discharge Disposition: Discharge to home or self care 07/17/2024 Orders Only [facility] [address] [place] [address] [place] [phone] Blake Dee MD H/O cardiomyopathy (Primary Dx); LBBB (left bundle branch block); Atrial fibrillation, unspecified type (HCC); Chronic heart failure with preserved ejection fraction (CMS/HCC) (HCC); Status post biventricular pacemaker 07/08/2024 7:30 AM PATIENT FINANCIAL COUNSELOR Ancillary Procedure [facility] [address] [place] [address] [place] [phone] Chronic diastolic congestive heart failure, NYHA class 3 (CMS/HCC) (HCC) (Primary Dx); H/O cardiomyopathy; LBBB (left bundle branch block); Atrial fibrillation, unspecified type (HCC); Status post biventricular pacemaker 06/27/2024 Anticoagulation Visit [facility] [address] [place] [phone] Blake Flowers RN termite technician (current) use of anticoagulants (Primary Dx); Atrial fibrillation, unspecified type (HCC) 06/26/2024 1:45 PM PATIENT FINANCIAL COUNSELOR Lab [facility] Outpatient Lab at [address] [phone] Atrial fibrillation (CMS/HCC) (HCC) (Primary Dx) 06/26/2024 11:12 AM PATIENT FINANCIAL COUNSELOR - 06/26/2024 11:59 PM PATIENT FINANCIAL COUNSELOR Hospital Encounter [facility] [address] [place] [address] Status post mechanical aortic valve replacement; Paroxysmal atrial fibrillation (CMS/HCC) (HCC); Chronic anticoagulation Discharge Disposition: Discharge to home or self care 06/13/2024 Telephone [facility] [address] [place] [phone] Blake Dee MD from Last 3 Months Immunizations Immunization Administration Dates Next Due Influenza LAIV (Nasal) 08/01/2021 Influenza, Quadrivalent, Hig h Dose, Preservative Free, Intrr 05/21/2023 Influenza, Quadrivalent, Spl it, Intramuscular 05/09/2020 Influenza, Quadrivalent, Spl it, Preservative Free, Intramuscular 08/01/2021,06/11/2019 Influenza, Trivalent, High D ose, Split, Preservative Free, Intramuscular 04/14/2024 Influenza, Unspecified 05/12/2022,2021(Deferred: Patient Refused),04/26/2021,08/01/2020(Deferre d: Patient Refused) Naked SARS-CoV-2 Monovalent Vaccination (12+ Yrs) TUCKER-READY TO USE 10/19/2021 Tdap 12/16/2014 Surgical History Surgery Date Site/Laterality Comments CHOLECYSTECTOMY 07/09/2017 - 07/08/2018 ANTERIOR CRUCIATE LIGAMENT REPAIR 07/09/2002 - 07/08/2003 Right KYPHOPLASTY 07/09/2021 - 07/08/2022 AORTIC VALVULOPLASTY 07/09/2018 - 07/08/2019 HYSTERECTOMY 07/09/1985 - 07/08/1986 SKIN CANCER EXCISION INSERT / REPLACE / REMOVE PACEMAKER 07/09/2015 - 07/08/2016 original 2013 AORTIC VALVE REPLACEMENT 07/09/2018 - 07/08/2019 21mm Inspiris CARDIAC VALVE REPLACEMENT 2018 Medical History Medical History Date Comments Depression Hypertension Broken heart syndrome Hyperlipidemia 10/26/2011 Formatting of th is note might be different from the original. [place] wants her on Lipitor 40mg qhs Last Assessment & Plan: Status: Stable Interim History: No myalgias. Patient on Lipitor 40 mg qd. Recheck in 3 months labs. LBBB (left bundle branch block) 11/18/2012 Raz Villegas at [facility] plate driller. Paroxysmal atrial fibrillati on ([facility]) ([facility]) 05/27/2019 Last Assessment & Plan: Form atting of this note might be different from the original. On Eliquis Severe mitral regurgitation 11/18/2012 Form atting of this note is different from the original. Emilie at [facility] plate driller. Message from [place] sent at 11/15/2018 4:29 PM [facility] ----- Co Dr. Farnsworth. Just FY regarding my hospital visit, I have an appointment with Dr. Luke rodriguez at [facility] on This Sunday for my TAVR work up. Last Assessment & Plan: Formatting of this note might be different from the mars Systolic heart failure ([facility]) ([facility]) 3 [place] stage III Coreg Lasix and Lisinopril started in hospital in November. Dr. Phan plate driller. Last Assessment & Plan: Status: Stable Interim History: No cp's, sob, PTE or calf pains. No weight gains. Continue with Cardiology. GERD (gastroesophageal reflux disease) 2 Osteopenia 01/29/2015 Formatting of th is note might be different from the original. DEXA 01/2015 Pulmonary HTN ([facility]) 11/18/2012 Formatting o f this note might be different from the original. [place] documentation seen on ECHO. Age-related osteoporosis wit hout current pathological fracture 09/01/2021 Osteoarthritis Osteoporosis Fatigue Shortness of breath Anemia Cancer ([facility]) ([facility]) skin canc er Arthritis Depression Nausea and vomiting 07/25/2022 Heart disease Family History Medical History Relation Name Comments Heart disease Father Saad Heart failure Father Saad Hypertension Father Saad heart surgery Father Saad Heart attack Maternal Grandfather Gramps Alzheimer's disease Maternal Grandmother Eryn Heart disease Mother Betty Heart failure Mother Betty Hypertension Mother Betty No Known Problems Paternal Grandfather No Known Problems Paternal Grandmother Breast cancer Neg Hx Ovarian cancer Neg Hx Thyroid cancer Neg Hx Relation Name Status Comments Father Saad Maternal Grandfather Bryan Maternal Grandmother Eryn Mother Betty Paternal Grandfather Paternal Grandmother Social History Tobacco Use Types Packs/Day Years Used Date Smoking Tobacco: Former Cigarettes 1 974 - 11/22/2021 Smokeless Tobacco: Never Tobacco Cessation:Counseling Given: Not Answered Comments:now down to 5 cigs/day Social Connection and Isolat ion Panel [NHANES] Answer Date Recorded In a typical week, how many times do you talk on the phone with family, friends, or neighbors? More than three times a week 11/28/2021 How often do you get togethe r with friends or relatives? More than three times a week 11/28/2021 How often do you attend chur ch or congregational services? More than 4 times per year 11/28/2021 Do you belong to any clubs o r organizations such as pentecostalism groups, unions, fraternal or athletic groups, or school groups? Yes 11/28/2021 How often do you attend meet ings of the clubs or organizations you belong to? More than 4 times per year 11/28/2021 Are you , , di vorced, , never , or living with a partner? 11/28/2021 AUDIT-C Answer Date Recorded Q1: How often do you have a drink containing alcohol? Never 11/27/2021 Q2: How many drinks containi ng alcohol do you have on a typical day when you are drinking? Patient does not drink Q3: How often do you have si x or more drinks on one occasion? Never 11/27/2021 Overall Financial Resource Strain (CARDIA) Answe r Date Recorded How hard is it for you to pa y for the very basics like food, housing, medical care, and heating? Not very hard 11/28/2021 PHQ-2 Answer Date Recorded PHQ-2 Total Score (If total score is 3 or more points, staff should administer the PHQ-9) 0 08/21/2024 [facility] - Occupational Stress Questionnaire Answer Date Recorded Do you feel stress - tense, restless, nervous, or anxious, or unable to sleep at night because your mind is troubled all the time - these days? Only a little 08/01/2021 Exercise Vital Sign Answer Date Recorde d On average, how many days pe r week do you engage in moderate to strenuous exercise (like a brisk walk)? 3 days 08/01/2021 On average, how many minutes do you engage in exercise at this level? 30 min 08/01/2021 PRAPARE - Transportation Answer Date Re corded In the past 12 months, has l ack of transportation kept you from medical appointments or from getting medications? No 11/07 In the past 12 months, has l ack of transportation kept you from meetings, work, or from getting things needed for daily living? 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 Not on file Not on f ile Not on file Obstetrics History Para Term AB IAB SAB Ectopic Multiple Livin g Live Births 3 2 2 Date Outcome GA Total Labor Labor/2nd/3rd Weight Sex Type Anes PTL Lisa A1 A5 Name Clin Term Term Last Filed Vital Signs Vital Sign Reading Time Taken Comments Blood Pressure 130/80 08/21/2024 3:25 PM PATIENT FINANCIAL COUNSELOR Pulse 77 08/21/2024 3:25 PM PATIENT FINANCIAL COUNSELOR Temperature 36.1 C (96.9 F) 08/21/2024 3:25 PM PATIENT FINANCIAL COUNSELOR Respiratory Rate 18 08/21/2024 3:25 PM PATIENT FINANCIAL COUNSELOR Oxygen Saturation 96% 08/21/2024 3:25 PM PATIENT FINANCIAL COUNSELOR Inhaled Oxygen Concentration - - Weight 63 kg (139 lb) 08/21/2024 3:25 PM PATIENT FINANCIAL COUNSELOR Height 157.5 cm (5' 2 ) 08/21/2024 3:25 PM PATIENT FINANCIAL COUNSELOR Body Mass Index 25.42 08/21/2024 3:25 PM PATIENT FINANCIAL COUNSELOR Plan of Treatment Health Maintenance Due Date Last Done Comments Osteoporosis Screening-Bone Density Scan 08/30/2023 08/30/2021, 01/29/2015, 01/29/2015, Additional history exists Covid-19 Vaccine ( season) 2024 10/19/2021, 10/19/2021 Breast Cancer Screening-Mammogram 07/17/2024 07/17/2023, 08/30/2021, 06/09/2019, Additional history exists Zoster Vaccine (1 of 2) 11/18/2024 Post poned from 2007 (Insurance / Financial) DTaP/Tdap/Td Vaccine (2 - Td or Tdap) 12/16/2024 12/16/2014 Fall Risk Assessment 05/28/2025 05/28/2024, 04/22/2024, 05/21/2023, Additional history exists Well Visit 65+ 05/28/2025 05/28/2024, 05/09, 08/01/2021 Depression Screening 08/21/2025 08/21/2024, 05/28/2024, 04/22/2024, Additional history exists Hepatitis C Screening Completed 08/17/2021 Influenza Vaccine Completed 04/14/2024, , 05/12/2022, Additional history exists Hepatitis B Screening Completed 05/28/2024 Colon Cancer Screening-Colonoscopy Discontinued Pneumococcal vaccine 65+ Discontinued Medical Devices Implanted Type Area Directional Driller Device Identifier Shelf Expiration Date Model / Serial / Lot Photofix Bovine 6x8 Pericardium Pfp 6x8 - [id number] - [id number] Implanted:Qty: 1 on 11/23/2021 by Adal Moore MD at [facility] Graft N/A: Heart [employer]ife Inc 08/20/2023 PFP 6X8 / 000 / [id number] [employer] Sensation Plus 7.5fr 6in 2 Statlock Device Fiber Optic Insertion [id number] - [id number] - [id number] Implanted:Qty: 1 on 11/22/2021 by Adal Moore MD at [facility] Other - see comments Left: Groin [employer] 03/12/2023 0684-00- [id number] / 000 / [id number] Description:IABP Pacemaker- 6 Implanted: 016 by Unknown, Notinfile (Quantity not on file) Pacemaker Chest [employer] [id number] / [id number] / Description:Did not get lead information - office did not schedule MRI exam, device is not conditional for MRI and provider is looking into other options 09/28/21 On-X Intrnl Gelweave Valsalva 22mm 19.4mm 30mm 11cm Mechanical Conduit Sew Onxaap-21 - [id number] - [id number] Implanted:Qty: 1 on 11/22/2021 by Adal Moore MD at [facility] Prosthetic Valve N/A: Aorta On-X Intrnl 04/08/2023 ONXAAP-2 / [id number] / 000 Photofix Bovine 6x8 Pericardium Pfp 6x8 - S000 - [id number] Implanted:Qty: 1 on 11/22/2021 by Adal Moore MD at [facility] N/A: Heart [employer] 08/06/2023 PFP 6X8 / 000 / [id number] Description:Given to sterile field for PRN use on surgical site Photofix Bovine 6x8 Pericardium Pfp 6x8 - [id number] Implanted:Qty: 1 on 11/28/2021 by Adal Moore MD at [facility] N/A: Heart [employer] 08/06/2023 PFP 6X8 / / [id number] Medtronic Inc Simulus 24mm Semirigid Band Annuloplasty 800sc-24 - [id number] - [id number] Implanted:Qty: 1 on 11/28/2021 by Adal Moore MD at [facility] N/A: Heart Medtronic Inc 03/15/2023 800SC-24 / [id number] / Terumo Cardio Vascular Gelweave Od6 Mm L30 Cm Suture Retention Unique Hydrolyzable Abdomen Thorax Straight Graft Cardiovascular Gelatin Polyester Woven [id number] - [id number] - [id number] Implanted:Qty: 1 on 11/28/2021 by Adal Moore MD at [facility] N/A: Chest Ter[employer]o Cardio Vascular 08/08/2024 [id number] / [id number] / [id number] Procedures Procedure Name Priority Date/Time Associated Diagnosis Comments CT ABDOMEN PELVIS WO CONTRAST Schedule SABA, Read Routine (Patient lives out of area) 08/22/2024 3:55 PM PATIENT FINANCIAL COUNSELOR Left flank pain URINE CULTURE Routine 08/21/2024 8:48 PM PATIENT FINANCIAL COUNSELOR Left flank pain POCT URINALYSIS DIPSTICK Routine 08/21/2024 3:52 PM PATIENT FINANCIAL COUNSELOR Left flank pain PROTIME-INR Routine 08/14/2024 12:10 PM PATIENT FINANCIAL COUNSELOR Status post mechanical aortic valve replacement Paroxysmal atrial fibrillation (CMS/HCC) (HCC) Chronic anticoagulation PROTIME-INR Routine 08/06/2024 12:00 PM PATIENT FINANCIAL COUNSELOR Status post mechanical aortic valve replacement Paroxysmal atrial fibrillation (CMS/HCC) (HCC) Chronic anticoagulation DEVICE CHECK - REMOTE Routine 07/17/2024 1:26 PM PATIENT FINANCIAL COUNSELOR H/O cardiomyopathy LBBB (left bundle branch block) Atrial fibrillation, unspecified type (HCC) PROTIME-INR Routine 06/26/2024 1:37 PM PATIENT FINANCIAL COUNSELOR Status post mechanical aortic valve replacement Paroxysmal atrial fibrillation (CMS/HCC) (HCC) Chronic anticoagulation SCREENING MAMMOGRAM BILATERAL W JAMEL Schedule Routine, Read Routine (OP Routine) 07/17/2023 12:59 PM PATIENT FINANCIAL COUNSELOR Encounter for screening mammogram for malignant neoplasm of breast DEXA AXIAL SKELETON BONE DENSITY 1 OR MORE SITES Schedule Routine, Read Routine (OP Routine) 08/30/2021 10:30 AM PATIENT FINANCIAL COUNSELOR Osteopenia of spine HEPATITIS C ANTIBODY Routine 08/17/2021 3:29 PM PATIENT FINANCIAL COUNSELOR Encounter for hepatitis C screening test for low risk patient from Last 3 Months or Most Recently Relevant to Health Maintenance Results * CT Abdomen Pelvis WO Contrast (08/22/2024 3:55 PM PATIENT FINANCIAL COUNSELOR) Anatomical Region Laterality Modality Body N/A Computed Tomogra phy 08/22/2024 4:06 PM PATIENT FINANCIAL COUNSELOR Narrative 08/22/2024 4:18 PM PATIENT FINANCIAL COUNSELOR EXAM DESCRIPTION: CT ABDOMEN PELVIS WO CONTRAST REASON FOR STUDY: Abdominal/flank pain, stone suspected L flank pain, microscopic hematuria, and vomiting x 5 days TECHNIQUE: CT scan of the abdomen and pelvis performed without intravenous and without oral contrast using helical scanning technique. Reconstructed coronal and sagittal MPR images reviewed. All images stored on PACS. Automated exposure control was used as a dose optimization technique for this examination. COMPARISON: CT abdomen pelvis 12/27/2021 FINDINGS: The sensitivity for detection of visceral lesions is diminished without the use of intravenous contrast. LOWER CHEST: There is elevation of the left hemidiaphragm and there is bibasilar subsegmental atelectasis, worse on the left. Prosthetic aortic valve is present. There also partially imaged cardiac pacing leads. Coronary artery calcifications are present. LIVER: Normal size. No identified cystic or solid masses. GALLBLADDER: Surgically absent BILE DUCTS: No intrahepatic or extrahepatic ductal dilatation. SPLEEN: There is borderline splenomegaly. PANCREAS: No identified cystic or solid masses. No significant calcifications. No adjacent inflammation or peripancreatic fluid collections. Pancreatic duct not dilated. ADRENALS: Normal. KIDNEYS/URINARY TRACT: No identified significant cystic or solid masses. No stones. No hydronephrosis or hydroureter. Urinary bladder is unremarkable. GI: Stomach is mostly decompressed. No dilated or thick-walled loops of bowel appreciated. No sign of appendicitis. There is colonic diverticulosis without definite evidence of diverticulitis. PERITONEUM: No ascites or free air. RETROPERITONEUM: No mass or adenopathy. REPRODUCTIVE: Uterus is absent. VASCULATURE: There is a large amount of atherosclerotic plaque in the aorta and iliac vessels without aneurysm. MUSCULOSKELETAL: No significant abnormality. OTHER: There is no suspicious osseous lesion. There is similar appearance of compression fracture of the L1 vertebral body with kyphoplasty change. IMPRESSION: 1. No signs of obstructive uropathy. No acute finding in the abdomen or pelvis. 2. Colonic diverticulosis without evidence of diverticulitis. 3. Chronic findings as above. 4. Borderline splenomegaly. 5. Marked elevation of the left hemidiaphragm. THIS IS AN ELECTRONICALLY VERIFIED FINAL REPORT 08/22/2024 4:18 PM - Electronically signed by Sidney Garcia M.D. AM: AM Report ID: [id number] Reading Location: [id number] Procedure Note Sidney Garcia MD - 08/22/2024 EXAM DESCRIPTION: CT ABDOMEN PELVIS WO CONTRAST REASON FOR STUDY: Abdominal/flank pain, stone suspected L flank pain, microscopic hematuria, and vomiting x 5 days TECHNIQUE: CT scan of the abdomen and pelvis performed without intravenousand without oral contrast using helical scanning technique. Reconstructed coronal and sagittal MPR images reviewed. All images stored on PACS.Automated exposure control was used as a dose optimization technique for this examination. COMPARISON: CT abdomen pelvis 12/27/2021 FINDINGS: The sensitivity for detection of visceral lesions is diminished withoutthe use of intravenous contrast. LOWER CHEST: There is elevation of the left hemidiaphragm and there is bibasilar subsegmental atelectasis, worse on the left. Prosthetic aortic valve is present. There also partially imaged cardiac pacing leads.Coronary artery calcifications are present. LIVER: Normal size. No identified cystic or solid masses. GALLBLADDER: Surgically absent BILE DUCTS: No intrahepatic or extrahepatic ductal dilatation. SPLEEN: There is borderline splenomegaly. PANCREAS: No identified cystic or solid masses. No significant calcifications. No adjacent inflammation or peripancreatic fluidcollections. Pancreatic duct not dilated. ADRENALS: Normal. KIDNEYS/URINARY TRACT: No identified significant cystic or solid masses.No stones. No hydronephrosis or hydroureter. Urinary bladder isunremarkable. GI: Stomach is mostly decompressed. No dilated or thick-walled loops of bowel appreciated. No sign of appendicitis. There is colonicdiverticulosis without definite evidence of diverticulitis. PERITONEUM: No ascites or free air. RETROPERITONEUM: No mass or adenopathy. REPRODUCTIVE: Uterus is absent. VASCULATURE: There is a large amount of atherosclerotic plaque in theaorta and iliac vessels without aneurysm. MUSCULOSKELETAL: No significant abnormality. OTHER: There is no suspicious osseous lesion. There is similarappearance of compression fracture of the L1 vertebral body with kyphoplasty change. IMPRESSION: 1. No signs of obstructive uropathy. No acute finding in the abdomen or pelvis. 2. Colonic diverticulosis without evidence of diverticulitis. 3. Chronic findings as above. 4. Borderline splenomegaly. 5. Marked elevation of the left hemidiaphragm. THIS IS AN ELECTRONICALLY VERIFIED FINAL REPORT 08/22/2024 4:18 PM - Electronically signed by Sidney Garcia M.D. AM: AM Report ID: [id number] Reading Location: [id number] Quirino Berger MD IMG CT PROCEDURES Final Res ult * (ABNORMAL) Urine culture Urine, clean voided (08/21/2024 8:48 PM PATIENT FINANCIAL COUNSELOR) Report Final Report: Greater than or equal to 100,000 colonies/mL of Klebsiella pneumoniae (.) Comment:Testing performed by : [facility], [address] [place]., [address] Organism KLEBSIELLA PNEUMONIAE JULIANA Urine, clean voided 08/21/2024 8:48 PM PATIENT FINANCIAL COUNSELOR 08/21/2024 10:19 PM PATIENT FINANCIAL COUNSELOR Narrative JULIANA - 08/23/2024 3:04 PM PATIENT FINANCIAL COUNSELOR Testing performed by [facility] ([phone]) Organism Antibiotic Method Susceptibility Klebsiella pneumoniae Ampicillin INTERPRETATION Resistant Klebsiella pneumoniae Cefazolin INTERPRETATION Susceptible Klebsiella pneumoniae Nitrofurantoin INTERPRETATION Susceptible Klebsiella pneumoniae Gentamicin INTERPRETATION Susceptible Klebsiella pneumoniae Trimethoprim with Sulfamethoxazole INTERPRETATION Susceptible Klebsiella pneumoniae Meropenem INTERPRETATION Susceptible Klebsiella pneumoniae Cefepime INTERPRETATION Susceptible Klebsiella pneumoniae Ciprofloxacin INTERPRETATION Susceptible Klebsiella pneumoniae Ceftazidime INTERPRETATION Susceptible Klebsiella pneumoniae Ceftriaxone INTERPRETATION Susceptible Klebsiella pneumoniae Piperacillin/Tazobactam INTERPRE TATION Susceptible Klebsiella pneumoniae Cephalexin INTERPRETATION Susceptible Klebsiella pneumoniae Cefuroxime-axetil INTERPRETATION Susceptible Klebsiella pneumoniae Cefdinir INTERPRETATION Susceptible Quirino Berger MD LAB MICROBIOLOGY - GENERAL ORDERABLES Final Result JULIANA [id number] [facility] Department [place] [address] * (ABNORMAL) POCT urinalysis dipstick (08/21/2024 3:52 PM PATIENT FINANCIAL COUNSELOR) Glucose, ur, POC 250.(A) Negative MG/DL Bilirubin, ur, POC Negative Negative, Small, Moderate, Large Ketones, ur, POC Negative Negative Specific Victor, POC 1.025 1.003 - 1.030 Blood, ur, POC Moderate(A) Negative pH, ur, POC 6.0 5.0 - 8.0 Protein, ur, POC 300.(A) Negative Urobilinogen, urine, POC 1.0 0.2 - 1.0 mg/dL Nitrite, ur, POC Positive(A) Negative Leukocytes, ur, POC Small(A) Negative Lot Number [id number] Urine 08/21/2024 3:52 PM PATIENT FINANCIAL COUNSELOR Quirino Berger MD POINT OF CARE TEST ORDERABL ES Final Result * (ABNORMAL) Protime-INR (08/14/2024 12:10 PM PATIENT FINANCIAL COUNSELOR) PT 23.6(H) 9.7 - 13.0 sec INR 2.15(H) 0.90 - 1.20 JULIANA Comment: Interpretive data Oral anticoagulant therapeutic ranges: Venous thromboembolism prophylaxis or treatment: 2.0-3.0 CARDIOLOGY Standard range: 2.0-3.0 High-intensity range: 2.5-3.5 Refer to indication-specific guidelines for appropriate target ranges for prosthetic heart valve replacement. Current interpretive data was last revised on 2019. Blood 08/14/2024 12:1 0 PM PATIENT FINANCIAL COUNSELOR 08/14/2024 3:19 PM PATIENT FINANCIAL COUNSELOR Blake Dee MD LAB BLOOD ORDERABLES Mirtha l Result JULIANA RODRIGUEZ [id number] Department [place] [address] * (ABNORMAL) Protime-INR (08/06/2024 12:00 PM PATIENT FINANCIAL COUNSELOR) PT 15.6(H) 9.7 - 13.0 sec INR 1.43(H) 0.90 - 1.20 JULIANA RODRIGUEZ Comment: Interpretive data Oral anticoagulant therapeutic ranges: Venous thromboembolism prophylaxis or treatment: 2.0-3.0 CARDIOLOGY Standard range: 2.0-3.0 High-intensity range: 2.5-3.5 Refer to indication-specific guidelines for appropriate target ranges for prosthetic heart valve replacement. Current interpretive data was last revised on 2019. Blood 08/06/2024 12:0 0 PM PATIENT FINANCIAL COUNSELOR 08/06/2024 11:28 PM PATIENT FINANCIAL COUNSELOR Blake Dee MD LAB BLOOD ORDERABLES Mirtha aquino Result JULIANA RODRIGUEZ [id number] Department [place] [address] * DEVICE CHECK - REMOTE (07/17/2024 1:26 PM PATIENT FINANCIAL COUNSELOR) Anatomical Region Laterality Modality Other Narrative 08/14/2024 8:46 AM PATIENT FINANCIAL COUNSELOR Castrejon Quadra Allure BIV Pacemaker. Dx; CM, CHF, LBBB, PAF. DOI 09/26/2023-[facility]. Chronic leads 08/16/2015-[place]. [place] remote transfer requested. Device is NOT MRI compatible-confirmed 09/15/21. Dr. Nelly VELÁSQUEZ at [facility]. Aug 2015. Routine DDDR Pacemaker Remote. Transmission attached. Battery status: 2.98 V, 5.7-6.1 years remaining battery life to LETIC[place]. Stable lead impedances, pacing and sensing thresholds. Presenting rhythm: AP/BP AP-85%, BIVP- >99%. 2 AT/AF episodes noted, longest episode was 20 minutes and 46 seconds in duration, IEGM demonstrates AT/AF. AF [place] < 1%. 46 Ventricular high rate episodes detected, IEGM demonstrates NSVT classified as consecutive PVCs by device. Medications: Warfarin, ASA 81 mg, carvedilol 12.5 mg See scanned report. Office pacemaker follow up: Letter sent to patient to call and schedule office check [place] remote f/u 10/07/24. Vitaliy Hogue, RN Blake Dee MD CV [facility] Final Result * (ABNORMAL) Protime-INR (06/26/2024 1:37 PM PATIENT FINANCIAL COUNSELOR) PT 46.9(H) 9.7 - 13.0 sec INR 4.22(H) 0.90 - 1.20 JULIANA RODRIGUEZ Comment: Interpretive data Oral anticoagulant therapeutic ranges: Venous thromboembolism prophylaxis or treatment: 2.0-3.0 CARDIOLOGY Standard range: 2.0-3.0 High-intensity range: 2.5-3.5 Refer to indication-specific guidelines for appropriate target ranges for prosthetic heart valve replacement. Current interpretive data was last revised on 2019. Blood 06/26/2024 1:37 PM PATIENT FINANCIAL COUNSELOR 06/26/2024 10:06 PM PATIENT FINANCIAL COUNSELOR us Blake Dee MD LAB BLOOD ORDERABLES Mirtha l Result JULIANA RODRIGUEZ [id number] Department [place] [address] * SCREENING MAMMOGRAM BILATERAL W JAMEL (07/17/2023 12:59 PM PATIENT FINANCIAL COUNSELOR) Anatomical Region Laterality Modality Breast Bilateral Mammography 07/17/2023 1:17 PM PATIENT FINANCIAL COUNSELOR Impressions 07/17/2023 1:17 PM PATIENT FINANCIAL COUNSELOR There is no mammographic evidence of malignancy. A 1 year screening mammogram is recommended. BI-RADS: 2 - Benign. The patient has been or will be contacted. The patient will be entered into a reminder system with a target due date of 1 year for her next mammogram. Electronically signed by: TREVA FIGUEROA Narrative 07/17/2023 1:17 PM PATIENT FINANCIAL COUNSELOR EXAMINATION: SCREENING MAMMOGRAM BILATERAL W JAMEL ORDERING HEALTHCARE PROVIDER: QUIRINO BERGER HISTORY: Routine screening mammography. COMPARISON: 08/28/2021, 06/09/2000, 01/29/2015. TECHNIQUE: CC and MLO views of both breasts were obtained with digital technique using digital breast tomosynthesis with C view. Computer aided detection was utilized. FINDINGS: DENSITY: The breasts have scattered areas of fibroglandular density. BREASTS: A pacer generator is partially seen in the upper left breast at posterior depth on MLO view. There are benign vascular calcifications in both breasts. There is also an unchanged benign appearing mass in the upper inner right breast at middle depth. There is no new suspicious finding in either breast on mammogram. us Quirino Berger MD IMG MAMMO PROCEDURES Final Result * Dexa Axial Skeleton Bone Density 1 Or 2 Site (08/30/2021 10:30 AM PATIENT FINANCIAL COUNSELOR) Anatomical Region Laterality Modality Body N/A Other 08/30/2021 10:5 2 AM PATIENT FINANCIAL COUNSELOR Narrative 08/30/2021 10:53 AM PATIENT FINANCIAL COUNSELOR EXAM DESCRIPTION: DEXA AXIAL SKELETON BONE DENSITY 1 OR MORE SITES REASON FOR STUDY: 66 y/o year old F with given history of screening. Directional Driller/Model: Follica ([id number]/N [id number]) CLINICAL INFORMATION: Current height: 62 inches Maximum height: 62 inches Weight: 155 pounds Risk factors: None COMPARISON: None available. FINDINGS: AP LUMBAR SPINE L1-L4: Total BMD is 0.782 g/cm2 T-score is -2.7 LEFT HIP: Total BMD is 0.838 g/cm2 T-score is -0.9 Femoral neck BMD is 0.700 g/cm2 T-score is -1.3 IMPRESSION: Osteoporosis. FRAX not reported due to T-score at or below -2.5. REFERENCE: Bone mineral density: Normal (T-score above or = -1.0) Low bone mass (T-score between -1.0 and -2.5) replaces the previously used term osteopenia Osteoporosis (T-score = or below -2.5) Medical evaluation for secondary causes of low bone mineral density may be appropriate. FRAX is a World Health Organization validated fracture risk assessment tool that calculates a person's 10 year probability of a major osteoporosis related fracture and hip fracture. According to the National Osteoporosis Foundation guidelines, postmenopausal women and men age 50 or older with low bone mass and a 10 year probability of a major osteoporosis related fracture = or greater than 20% or a 10 year probability of a hip fracture = or greater than 3% should be considered for treatment. For further information, including treatment recommendations, please refer to the 2013 ISCD Official Positions (http://www.iscd.org) and the NOF's Clinician's Guide to Prevention and Treatment of Osteoporosis (http://www.nof.org/professionals/clinical-guidelines) THIS IS AN ELECTRONICALLY VERIFIED FINAL REPORT 08/30/2021 10:53 AM - Electronically signed by Lisa Vann M.D. TB: TB Report ID: [id number] Reading Location: [facility] Procedure Note Lisa Vann MD - 08/30/2021 EXAM DESCRIPTION: DEXA AXIAL SKELETON BONE DENSITY 1 OR MORE SITES REASON FOR STUDY: 66 y/o year old F with given history ofscreening. Directional Driller/Model: [employer] ([id number]/N [id number]) CLINICAL INFORMATION: Current height: 62 inches Maximum height: 62 inches Weight: 155 pounds Risk factors: None COMPARISON: None available. FINDINGS: AP LUMBAR SPINE L1-L4: Total BMD is 0.782 g/cm2 T-score is -2.7 LEFT HIP: Total BMD is 0.838 g/cm2 T-score is -0.9 Femoral neck BMD is 0.700 g/cm2 T-score is -1.3 IMPRESSION: Osteoporosis. FRAX not reported due to T-score at or below -2.5. REFERENCE: Bone mineral density: Normal (T-score above or = -1.0) Low bone mass (T-score between -1.0 and -2.5) replaces thepreviously used term osteopenia Osteoporosis (T-score = or below -2.5) Medical evaluation for secondary causes of low bone mineral density may be appropriate. FRAX is a World Health Organization validated fracture risk assessmenttool that calculates a person's 10 year probability of a major osteoporosisrelated fracture and hip fracture. According to the National OsteoporosisFoundation guidelines, postmenopausal women and men age 50 or older with low bonemass and a 10 year probability of a major osteoporosis related fracture = or greater than 20% or a 10 year probability of a hip fracture = or greaterthan 3% should be considered for treatment. For further information, including treatment recommendations, please referto the 2013 ISCD Official Positions (http://www.iscd.org) and the NOF's Clinician's Guide to Prevention and Treatment of Osteoporosis (http://www.nof.org/professionals/clinical-guidelines) THIS IS AN ELECTRONICALLY VERIFIED FINAL REPORT 08/30/2021 10:53 AM - Electronically signed by Lisa Vann M.D. TB: TB Report ID: [id number] Reading Location: [facility] Quirino Berger MD IMG DXA PROCEDURES Final Re sult * Hepatitis C antibody (08/17/2021 3:29 PM PATIENT FINANCIAL COUNSELOR) Hep C Ab Nonreactive Nonreactive JULIANA Comment: Interpretive Data Nonreactive: Antibodies to HCV not detected. Does NOT exclude the possibility of recent exposure to HCV. Equivocal: Equivocal for HCV antibodies. Supplemental molecular testing will be automatically performed to determine infection status in accordance with current CDC screening recommendations. Reactive: Positive for HCV antibodies. This may represent current or past HCV infection. Supplemental molecular testing will be automatically performed to determine current infection status in accordance with current CDC screening recommendations. Interpretive data was last revised on 2019. Blood 08/17/2021 3:29 PM PATIENT FINANCIAL COUNSELOR 08/17/2021 3:29 PM PATIENT FINANCIAL COUNSELOR Quirino Berger MD LAB MICROBIOLOGY - GENERAL ORDERABLES Final Result Performing Organization Address City/State/ZIP Co ri Phone Number [facility] [address] [facility] [place] [address] from Last 3 Months or Most Recently Relevant to Health Maintenance Insurance [facility] MEDICARE MEDICARE [place] [address] MEDICARE Advance Directives For more information, please contact: [phone] Documents on File 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 Advance Directives and Livin g Will 11/26/2021 11:49 AM * LIMITED - No CPR (Latest Code Status on File) Date Activated Date Inactivated Comments 12/07/2021 5:09 PM 12/22/2021 1:47 PM * LIMITED - PEDIATRICS Date Activated Date Inactivated Comments 12/07/2021 3:31 PM 12/07/2021 5:09 PM Question Answer Comments Restrictions: No chest compression sNo cardioversion / defibrillation Discussed with the following attending physician: Jorge Luis * Full Code Date Activated Date Inactivated Comments 11/22/2021 11:00 PM 12/07/2021 3:31 PM Care Teams Microbiology Director Relationship Specialty Start Date End Date Quirino Berger MD [address] [place] [address] PCP - General Family Medicine 08/01/21 Sameer Lewis RN [address] [place] [address] [address] [place] [address] Trauma Coordinator 08/24/23 Blake Dee MD [address] [place] [address] Consulting Physician Cardiology 05/28/24
--- OUTSIDE RECORDS SUMMARY | 2024-09-01 14:18 | XMS_ITS | Encounter Summary ---
Author Organization [facility] Healthcare Address [address] [place] [address] Care Team Providers Care Laboratory Equipment Cleaner Name Role Phone Quirino Berger MD Primary Care Provider Vic Sal MD Unavailable Vic Sal MD Unavailable Sameer Lewis RN Unavailable Blake Dee MD Unavailable Encounter Details Date Type Department Care Team (Late st Contact Info) Description 09/14/2023 Orders Only [facility] Health Information Management [address] [place] [address] Scanning, Provider Social History Tobacco Use Types Packs/Day Years Used Date Smoking Tobacco: Former Cigarettes 1 974 - 11/22/2021 Smokeless Tobacco: Never Comments:now down to 5 cigs/ day Social Connection and Isolat ion Panel [NHANES] Answer Date Recorded In a typical week, how many times do you talk on the phone with family, friends, or neighbors? More than three times a week 11/28/2021 How often do you get togethe r with friends or relatives? More than three times a week 11/28/2021 How often do you attend chur or roman catholic services? 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 Not on file Not on f ile Not on file documented as of this encounter Plan of Treatment Not on file documented as of this encounter Procedures Procedure Name Priority Date/Time Associated Diagnosis Comments SCAN - LABS 09/14/2023 documented in this encounter Results * SCAN - LABS (09/14/2023) us Provider Scanning Final Result documented in this encounter Visit Diagnoses Not on filedocumented in this encounter Additional Health Concerns Infection Onset Date Last Indicated Resolved Time COVID: Suspected 11/13/2023 11/13/2023 11/13/2023 1:38 PM CDT documented as of this encounter Care Teams Laboratory Equipment Cleaner Relationship Specialty Start Date End Date Quirino Berger MD [address] [place] [address] PCP - General Family Medicine 08/01/21 Vic Sal MD [address] [place] [address] Consulting Physician Cardiology 08/01/21 05/27/24 Vic Sal MD [address] [place] [address] Referring Physician Cardiology 11/08/21 05/27/24 Sameer Lewis, MARIA DE JESUS [address] [place] [address] [address] [place] [address] Incinerator Operator 08/24/23 Blake Dee MD [address] [facility] [address] [place] [address] Consulting Physician Cardiology 05/28/24 documented as of this encounter
--- OUTSIDE RECORDS SUMMARY | 2024-09-01 14:18 | XMS_ITS | Clinical Summary ---
Author Organization [facility] Address [address] [place] [address] Care Team Providers Care Print Line Inspector Name Role Phone Unavailable Primary Care Provider Unavailabl e Social History Tobacco Use Types Packs/Day Years Used Date Smoking Tobacco: Never Assessed Comments Unknown Sex and Gender Information Value Date Recorded Sex Assigned at Not on file Legal Sex Female 8:43 PM PST Gender Identity Not on file Sexual Orientation Not on file Plan of Treatment Health Maintenance Due Date Last Done Comments Meningococcal B Vaccine Aged Out No l onger eligible based on patient's age to complete this topic
--- OUTSIDE RECORDS SUMMARY | 2024-09-01 14:18 | XMS_ITS | Encounter Summary ---
Author Organization [facility] Healthcare Address [facility] [place] [address] Care Team Providers Care Senior Financial Accountant Name Role Phone Quirino Berger MD Primary Care Provider [phone] Vic Sal MD Unavailable Anupam Cabrera MD Unavailable [phone] Vic Sal MD Unavailable [phone] Sameer Lewis RN Unavailable Blake Dee MD Unavailable Reason for Visit * Reason Onset Date Comments Scheduling Appointments 08/29/2021 Reminder call for DEXA and Mammogram. Encounter Details Date Type Department Care Team (Late st Contact Info) Description 08/29/2021 Telephone [facility] [address] [place] [id number] [address] Scheduling Appointments (Reminder call for DEXA and Mammogram. ) Social History Tobacco Use Types Packs/Day Years Used Date Smoking Tobacco: Every Day Cigarettes 1 51.1 Started: 1971 Smokeless Tobacco: Never Comments:now down to 5 cigs/ day AUDIT-C Answer Date Recorded Q1: How often do you have a drink containing alc ohol? Monthly or less 08/01/2021 Q2: How many drinks containi ng alcohol do you have on a typical day when you are drinking? 1 or 2 08/01/2021 Q3: How often do you have si x or more drinks on one occasion? Never 08/01/2021 PHQ-2 Answer Date Recorded PHQ-2 Total Score (If total score is 3 or more points, staff should administer the PHQ-9) 0 08/01/2021 [facility] - Occupational Stress Questionnaire Answer Date Recorded [...] exercise at this level? 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 Not on f ile Not on file documented as of this encounter Plan of Treatment Not on file documented as of this encounter Visit Diagnoses Not on filedocumented in this encounter Additional Health Concerns Infection Onset Date Last Indicated Resolved Time COVID: Suspected 11/13/2023 11/13/2023 11/13/2023 1:38 PM CDT documented as of this encounter Care Teams Senior Financial Accountant Relationship Specialty Start Date End Date Quirino Berger MD [address] [place] [address] PCP - General Family Medicine 08/01/21 Vic Sal MD [address] [place] [address] Consulting Physician Cardiology 08/01/21 05/27/24 Anupam Cabrera MD [address] [place] [address] Surgeon Anesthesiology 08/01/21 08/21/22 Vic Sal MD [address] [place] [address] Referring Physician Cardiology 11/08/21 05/27/24 Sameer Lewis RN [address] [place] [address] [address] [place] [address] Gear Hobber 08/24/23 Blake Dee MD [address] [facility] [address] [place] [address] Consulting Physician Cardiology 05/28/24 documented as of this encounter
--- OUTSIDE RECORDS SUMMARY | 2024-09-01 14:18 | XMS_ITS | Clinical Summary ---
Author Organization [facility] Facility Address [address] [address] Care Team Providers Care Janitor Head Name Role Phone Quirino Berger MD Primary Care Provider [phone] Medications ergocalciferol 1.25 MG (62436 UT) capsule Take 1 capsule (50,000 Units total) by mouth 1 (one) time per week 12 capsule 1 04/05/2023 Active Social History Tobacco Use Types Packs/Day Years Used Date Smoking Tobacco: Never Assessed Comments Unknown Sex and Gender Information Value Date Recorded Sex Assigned at Not on file Legal Sex Female 2:55 PM EDT Gender Identity Not on file Sexual Orientation Not on file Last Filed Vital Signs Vital Sign Reading Time Taken Comments Blood Pressure 100/58 04/05/2023 4:15 PM CDT Pulse 59 04/05/2023 4:15 PM CDT Temperature 36.1 C (97 F) 04/05/2023 4:15 PM CDT Respiratory Rate 18 04/05/2023 4:15 PM CDT Oxygen Saturation 97% 04/05/2023 4:15 PM CDT Inhaled Oxygen Concentration - - Weight 65.8 kg (145 lb) 04/05/2023 4:15 PM CDT Height - - Body Mass Index - - Plan of Treatment Health Maintenance Due Date Last Done Comments Breast Cancer Screening 1957 Pneumococcal Vaccine: 65+ Years (1 of 2 - PCV) 1963 Colorectal Cancer Screening: Annual FOBT 2006 Colorectal Cancer Screening: Colonoscopy 2006 Colorectal Cancer Screening: Sigmoidoscopy 2006 Influenza Vaccine (#1) 2024 2, 08/01/2021, 04/26/2021, Additional history exists Hepatitis B Vaccine Aged Out No longe r eligible based on patient's age to complete this topic Insurance MEDICARE [facility] Advance Directives Documents on File Type Date Recorded Patient Architectural Wood Model Maker Expl anation Advance Care Planning 03/20/2023 1:50 PM Care Teams Janitor Head Relationship Specialty Start Date End Date Quirino Berger MD [address] [place] [address] PCP - General Family Medicine 12/29/22
--- OUTSIDE RECORDS SUMMARY | 2024-09-01 14:18 | XMS_ITS | Clinical Summary ---
Author Organization [facility] Address [address] [place] [address] Care Team Providers Care Steward Racetrack Name Role Phone Unavailable Primary Care Provider Unavailabl e Allergies Active Allergy Reactions Criticality Noted Date Comments Atorvastatin 12/22/2021 Atropine 12/22/2021 Hydrocodone-Acetaminophen Itching Medium 09/12/2013 Sulfa Antibiotics Rash Medium 01/06/2014 Nausea and vomiting Nausea and vomiting Sulfites 12/22/2021 Medications acetaminophen (TYLENOL) 325 MG tablet Take 2 tablets (650 mg total) by mouth every 6 (six) hours as needed for mild pain. 0 01/18/2022 Active amiodarone (PACERONE) 200 MG tablet 1 tablet (200 mg total) by Enteral route in the morning. 0 01/18/2022 Active benzonatate (TESSALON) 100 MG capsule Take 1 capsule (100 mg total) by mouth as needed in the morning and 1 capsule (100 mg total) as needed at noon and 1 capsule (100 mg total) as needed in the evening for cough. 0 01/18/2022 Active calcium carbonate (OS-KELLI) 1250 (500 Ca) MG chewable tablet Chew 1 tablet (500 mg total) as needed in the morning and 1 tablet (500 mg total) as needed at noon and 1 tablet (500 mg total) as needed in the evening for heartburn. 0 01/18/2022 Active carvedilol (COREG) 3.125 MG tablet 1 tablet (3.125 mg total) by Enteral route in the morning and 1 tablet (3.125 mg total) before bedtime. 0 01/18/2022 Active guaiFENesin (MUCINEX) 600 MG 12 hr tablet Take 1 tablet (600 mg total) by mouth in the morning and 1 tablet (600 mg total) before bedtime. 0 01/18/2022 Active hydrOXYzine (ATARAX) 50 MG tablet Take 1 tablet (50 mg total) by mouth every 8 (eight) hours as needed for anxiety. 0 01/18/2022 Active mirtazapine (REMERON) 7.5 MG tablet Take 1 tablet (7.5 mg total) by mouth nightly. 0 01/18/2022 Active ondansetron (ZOFRAN) 4 MG/2ML injection Infuse 2 mL (4 mg total) into a venous catheter every 6 (six) hours as needed for nausea or vomiting. 0 01/18/2022 Active pantoprazole (PROTONIX) 40 MG EC/DR tablet Take 1 tablet (40 mg total) by mouth Daily at 6am. 0 01/19/2022 Active senna (SENOKOT) 8.6 MG tablet Take 1 tablet (8.6 mg total) by mouth in the morning and 1 tablet (8.6 mg total) before bedtime. 0 01/18/2022 Active sertraline (ZOLOFT) 100 MG tablet Take 1 tablet (100 mg total) by mouth in the morning. 0 01/18/2022 Active spironolactone (ALDACTONE) 25 MG tablet 1 tablet (25 mg total) by PO/Per Tube route in the morning. 0 01/18/2022 Active warfarin 2.5 MG tablet 1 tablet (2.5 mg total) by PO/Per Tube route in the evening. Take as directed per After Visit Summary.. 0 01/18/2022 Active Active Problems Problem Noted Date Diagnosed Date Mitral valve regurgitation 12/24/2021 Assessment & Plan (01/16/2022 8:35 AM CDT): MV repair, RVAD / ECMO 11/28 Aortic valve stenosis 12/24/2021 Assessment & Plan (12/25/2021 10:22 AM CDT): Composite root replacement on 11/22 On Iovenox Transitioning to warfarin Complicated open wound of groin 12/24/2021 Assessment & Plan (12/24/2021 9:22 AM CDT): Wound vac Wound care as needed Acute respiratory failure 12/22/2021 Assessment & Plan (01/10/2022 8:17 AM CDT): decannulated Wean Down FiO2. Stoma care Immunizations Immunization Administration Dates Next Due Influenza, Quadrivalent 08/01/2021 Influenza, Unspecified 04/26/2021 Pfizer SARS-CoV-2 Vaccination 10/19/2021 Tdap 12/16/2014 Social History Tobacco Use Types Packs/Day Years Used Date Smoking Tobacco: Never Comments Unknown Sex and Gender Information Value Date Recorded Sex Assigned at Not on file Legal Sex Female 2:55 PM EDT Gender Identity Not on file Sexual Orientation Not on file Last Filed Vital Signs Vital Sign Reading Time Taken Comments Blood Pressure 157/84 01/18/2022 11:13 AM CDT Pulse 84 01/18/2022 11:13 AM CDT Temperature 37.2 C (99 F) 01/18/2022 11:13 AM CDT Respiratory Rate 18 01/18/2022 11:13 AM CDT Oxygen Saturation 98% 01/18/2022 11:13 AM CDT Inhaled Oxygen Concentration - - Weight 72.1 kg (159 lb) 01/17/2022 3:08 PM CDT Height 157.5 cm (5' 2 ) 12/22/2021 7:39 PM CDT Body Mass Index 29.08 12/22/2021 7:39 PM CDT Plan of Treatment Health Maintenance Due Date Last Done Comments CT Colonography 1957 Colonoscopy 1957 Colorectal Cancer Screening 1957 FIT-DNA (Cologuard) 1957 FIT 1957 FOBT 1957 Sigmoidoscopy 1957 Annual Visit Topic 1958 Hepatitis C Screening 1975 Pneumococcal Vaccine: 65+ Ye ars (1 of 4 - PCV) 2007 DTaP/Tdap/Td Vaccines (2 - T d or Tdap) 01/13/2015 12/16/2014 HIB Vaccines Aged Out No longer eligi ble based on patient's age to complete this topic HPV Vaccines Aged Out No longer eligi ble based on patient's age to complete this topic Hepatitis A Vaccines Aged Out No long er eligible based on patient's age to complete this topic Hepatitis B Vaccines Aged Out No long er eligible based on patient's age to complete this topic IPV Vaccines Aged Out No longer eligi ble based on patient's age to complete this topic Meningococcal Vaccine Aged Out No cassidy kapil eligible based on patient's age to complete this topic Advance Directives * Limited Resuscitation (Latest Code Status on File) Date Activated Date Inactivated Comments 12/22/2021 9:20 PM 01/18/2022 3:32 PM No CPR, No I ntubation. Question Answer Comments Resuscitation Technique: Ventilation wit h Ambu-Bag Intravenous Medications as IndicatedDefibrillation or CardioversionTransvenous or Transthoracic PacemakerExternal Pacemaker I have discussed this order with the patient or his/her surrogate and have received informed consent. Yes * Full Resuscitation Date Activated Date Inactivated Comments 12/22/2021 1:32 PM 12/22/2021 9:20 PM
--- OUTSIDE RECORDS SUMMARY | 2024-09-01 14:18 | XMS_ITS | Patient Health Summary ---
Author Organization [facility] Address [address] [facility] [place] [address] Care Team Providers Care Patient Relations Specialist Name Role Phone Unknown, Provider Primary Care Provider Unavaila ble Note from [facility],non-owned Affiliates and Associated Physician Practices is amultiple site organization consisting of ambulatory clinics and hospital sitesin [place], [place], [place] and [place]. This disclosure is being madepursuant to the Care Everywhere program and may not contain all information available regarding this patient. Last updated 18.[facility] Allergies * Atorvastatin(Other) * Atropine(Other) -High Criticality * Hydrocodone-Acetaminophen(Itching) -Medium Criticality * Sulfa Drugs(Rash) -Medium Criticality Medications * Be aware that medications may not be up to date on this document. Alwaysverify current medications with the patient. * apixaban (ELIQUIS) 5 MG tablet Take by mouth 2 times daily * carvedilol (COREG) 6.25 MG tablet Take 6.25 mg by mouth 2 times daily * FLUoxetine (PROZAC) 20 MG capsule Take 30 mg by mouth once daily * lisinopril (PRINIVIL;ZESTRIL) 5 MG tablet Take 5 mg by mouth once daily * albuterol HFA (PROVENTIL; VENTOLIN; PROAIR) 108 (90 Base) MCG/ACT inhaler (Started 05/28/2021) Inhale 2 (two) puffs by mouth every 6 hours as needed for Wheezing or Cough 1 refill by 05/28/2022 Social History Tobacco Use Types Packs/Day Years Used Date Smoking Tobacco: Every Day Smokeless Tobacco: Never Sex and Gender Information Value Date Recorded Sex Assigned at Not on file Gender Identity Not on file Sexual Orientation Not on file Last Filed Vital Signs Vital Sign Reading Time Taken Comments Blood Pressure 120/80 05/28/2021 10:41 AM BI DEVELOPER Pulse 78 05/28/2021 10:41 AM BI DEVELOPER Temperature 37 C (98.6 F) 05/28/2021 10:41 AM BI DEVELOPER Respiratory Rate 12 05/28/2021 10:41 AM BI DEVELOPER Oxygen Saturation 99% 05/28/2021 10:41 AM BI DEVELOPER Inhaled Oxygen Concentration - - Weight 70.3 kg (155 lb) 05/28/2021 10:41 AM BI DEVELOPER Height 157.5 cm (5' 2 ) 05/28/2021 10:41 AM BI DEVELOPER Body Mass Index 28.35 05/28/2021 10:41 AM BI DEVELOPER Care Teams Patient Relations Specialist Relationship Specialty Start Date End Date Unknown, Provider PCP - General 05/27/21
--- OUTSIDE RECORDS SUMMARY | 2024-09-01 14:18 | XMS_ITS | Referral Summary ---
Author Organization [facility] Address [address] [place] [address] Care Team Providers Care Lot Associate Name Role Phone Quirino Berger MD Primary Care Provider Sameer Lewis RN Unavailable [phone] Blake Dee MD Unavailable Encounters Date Type Department Care Team Description 08/24/2024 Results Follow-Up [facility] Primary Care at [address] [phone] Quirino Berger MD 08/22/2024 3:37 PM DIRECTOR PRODUCT SAFETY - 08/22/2024 11:59 PM DIRECTOR PRODUCT SAFETY Hospital Encounter [facility] [address] [place] [address] Left flank pain Discharge Disposition: Discharge to home or self care 08/21/2024 3:58 PM DIRECTOR PRODUCT SAFETY - 08/21/2024 11:59 PM DIRECTOR PRODUCT SAFETY Hospital Encounter [address] [address] Left flank pain Discharge Disposition: Discharge to home or self care 08/21/2024 3:30 PM DIRECTOR PRODUCT SAFETY Office Visit [facility] Primary Care at [address] [phone] Quirino Berger MD Left flank pain (Primary Dx); Encounter for screening mammogram for malignant neoplasm of breast 08/21/2024 Nurse Triage [facility] Primary Care at [address] [phone] Quirino Berger MD 08/15/2024 1:30 PM DIRECTOR PRODUCT SAFETY Office Visit [facility] Cardiology at [address] [place] [phone] Blake Dee MD Coronary artery disease involving cabazon coronary artery of cabazon heart without angina pectoris (Primary Dx); Chronic heart failure with preserved ejection fraction (CMS/HCC) (HCC); Essential hypertension; Mixed hyperlipidemia; Paroxysmal atrial fibrillation (CMS/HCC) (HCC); Chronic anticoagulation 08/14/2024 Anticoagulation Visit [facility] [address] [place] [address] [address] [place] [phone] Shraddha Hebert RN 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 Outpatient Lab at [address] [phone] Essential hypertension (Primary Dx) 07/17/2024 Orders Only [facility] [address] [place] [address] [place] [phone] Blake Dee MD H/O cardiomyopathy (Primary Dx); LBBB (left bundle branch block); Atrial fibrillation, unspecified type (HCC); Chronic heart failure with preserved ejection fraction (CMS/HCC) (HCC); Status post biventricular pacemaker 07/08/2024 7:30 AM DIRECTOR PRODUCT SAFETY Ancillary Procedure [facility] [address] [place] [address] [place] [phone] Chronic diastolic congestive heart failure, NYHA class 3 (CMS/HCC) (HCC) (Primary Dx); H/O cardiomyopathy; LBBB (left bundle branch block); Atrial fibrillation, unspecified type (HCC); Status post biventricular pacemaker 06/27/2024 Anticoagulation Visit [facility] [address] [place] [address] [address] [place] [phone] Blake Flowers RN shelter (current) use of anticoagulants (Primary Dx); Atrial fibrillation, unspecified type (HCC) 06/26/2024 11:12 AM DIRECTOR PRODUCT SAFETY - 06/26/2024 11:59 PM DIRECTOR PRODUCT SAFETY Hospital Encounter [address] [address] Status post mechanical aortic valve replacement; Paroxysmal atrial fibrillation (CMS/HCC) (HCC); Chronic anticoagulation Discharge Disposition: Discharge to home or self care 06/26/2024 1:45 PM DIRECTOR PRODUCT SAFETY Lab [facility] Outpatient Lab at [address] [phone] Atrial fibrillation (CMS/HCC) (HCC) (Primary Dx) 06/13/2024 Telephone [facility] [address] [place] [address] [address] [place] [phone] Blake Dee MD from Last 3 Months Allergies Active Allergy Reactions Criticality Noted Date [...] heart failure with preserved ejection fraction (CMS/HCC) (HCC) Take 1 tablet (20 mg total) by [...] heart failu re with preserved ejection fraction (CMS/HCC) 05/28/2024 Chronic renal disease, stage IV ([facility]/HCC) 2023 Atrial fibrillation ([facility]/HCC) 10/23/2023 Abnormal PFTs (pulmonary function tests) 024 Depression, recurrent (CMS/HCC) 05/21/2023 Encounter for Medicare annual wellness exam 05/09 Assessment & Plan (05/28/2024 1:10 PM DIRECTOR PRODUCT SAFETY): A(n) initial well visit to establish care [...] year Assessment & Plan (05/21/2023 3:45 PM DIRECTOR PRODUCT SAFETY): A(n) yearly Medicare Annual Wellness Visit has [...] 11:45 AM CDT): Will decrease furosemide to [id number] dosing given the downward drift on the renal function Replacing pantoprazole with famotidine for the same reason Monitor BP, the amlodipine has bene stopped, carvedilol recently increase Continuing current regimen overall Discussed improving hydration Referral to kidney doctor ordered Nausea and vomiting 07/25/2022 Assessment & Plan (07/25/2022 1:31 PM DIRECTOR PRODUCT SAFETY): Try stop cannabis HS Also try benadryl HS Report back by phone At risk for amiodarone toxicity with fpc u se 07/21/2022 Insomnia due to medical [...] 1 03/16/2022 S/P mitral valve repair 03/03/2022 shelter (current) use of anticoagulants 2021 Aftercare following [...] G-button; likely Dr. Gomes or Katerine at [facility] May add meal supplement 1 daily between meals (Boost, Ensure, for example) Correction: doesn't appear defibrillator was placed, still bi-valve pacemaker Mobility impaired 02/22/2022 Assessment & Plan (02/22/2022 8:06 PM CDT): Kendal Junior has a mobility limitation that significantly impairs [...] breath 08/08/2021 Coronary artery disease invo lving cabazon coronary artery of cabazon heart without angina pectoris 08/08/2021 Chronic anticoagulation 08/08/2021 Ankle swelling 02/16/2021 Acute urinary tract infection 12/16/2020 Dehydration 12/15/2020 Incomplete emptying of bladder 12/15/2020 Cardiac pacemaker in situ 08/04/2020 Smoker 08/03/2020 Smokers' cough 07/30/2020 Osteoarthritis of right knee 06/11/2019 Overview (08/01/2021): Dr. River at [facility], ortho Dr. Parks ortho 2017 Arthritis of knee 06/10/2019 Anxiety 01/24/2019 Overview (08/01/2021): Buspar she didn't like. Paroxysmal atrial fibrillation (CMS/HCC) 019 Overview (06/21/2022): Last Assessment & Plan: On Eliquis Aortic valve replaced 11/14/2018 Overview (08/01/2021): 12/[address] surgeon at [facility]. Spondylosis of lumbar region without myelopathy or radiculopathy 11/30/2015 Overview (08/01/2021): X-ray 11/2015 Essential hypertension 10/20/2015 Status post biventricular pacemaker 10/20/2015 Overview (10/04/2023): Castrejon Quadra Allure BIV Pacemaker. Dx; CM, CHF, LBBB, PAF. DOI 09/26/2023- [facility]. Chronic leads 08/16/2015-[place]. [place] remote transfer requested. Device is NOT MRI compatible-confirmed 09/15/21. Dr. Nelly VELÁSQUEZ at [facility]. Aug 2015. Osteopenia 01/29/2015 Overview (08/01/2021): DEXA 01/2015 CHF (congestive heart failure), NYHA class III ( [facility]/HCC) 12/25/2012 Overview (08/01/2021): ECHO 05/2014 EF about 40% EF about 65% 2016 [address] Dr. Wahl at [facility]. Last Assessment & Plan: Status: Stable Interim History: No weight gain or any other symptoms. Continue present treatment. Pulmonary HTN 11/18/2012 Overview (08/01/2021): [place] documentation seen on ECHO. Pulmonary nodule, left 11/18/2012 Overview (08/01/2021): Left lower per [place] documentation. S/P cholecystectomy 11/18/2012 S/P hysterectomy with oophorectomy 11/18/2012 Overview (08/01/2021): Per [place]. Chronic pain 12/06/2011 GERD (gastroesophageal reflux disease) 2 Depression 10/26/2011 Overview (08/01/2021): Last Assessment & Plan: Status: Stable Interim History: Mood 5-6/10. Not suicidal or homicidal. Will adjust med's today. Discussed grieving counseling in detail. Patient will call [facility] and get it. Recheck in 2 weeks. Mixed hyperlipidemia 10/26/2011 Overview (08/01/2021): [place] wants her on Lipitor 40mg qhs Last Assessment & Plan: Status: Stable Interim History: No myalgias. Patient on Lipitor 40 mg qd. Recheck in 3 months labs. Resolved Problems Problem Noted Date Diagnosed Date Resolved Date Other pneumothorax 12/10/2021 Assessment & Plan (12/11/2021 8:32 AM CDT): Todays chest x-ray suggests enlarging a right pneumothorax. Defer to CVR. May require replacement of chest tube. 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 Sodium corrected Nonrheumatic mitral valve regurgitation 11/28/2021 12/20/2021 Assessment & Plan (12/14/2021 8:05 AM CDT): MV repair, RVAD / ECMO 11/28 RVAD explant on 12/07 Follow clinically Acute [...] (11/10/2021): Added automatically from request for surgery [id number] Prosthetic aortic valve stenosis 09/05/2021 12/20/2021 Statin myopathy 08/08/2021 12/20/2021 Systolic murmur 08/08/2021 12/20/2021 Encounter [facility] to establish care 08/01/2021 12/20/2021 Assessment & Plan (08/03/2021 10:25 AM DIRECTOR PRODUCT SAFETY): A initial well visit to establish care [...] ordered/arranged unless otherwise indicated. BP is controlled Serger appointment next week. 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 Message from [employer] sent at 11/15/2018 4:29 PM [facility] ----- Tn Dr. Farnsworth. Just FY regarding my hospital visit, I have an appointment with Dr. Luke rodriguez at [facility] on This Sunday for my TAVR work up. Last Assessment & Plan: Status: Stable Interim History: Positive murmur but no symptoms at present. Continue with present treatment. Biventricular heart failure ([facility]/HCC) 11/18/2012 12/20/2021 Assessment & Plan (12/14/2021 8:07 AM CDT): S/p CABG, MVR Immunizations Immunization Administration Dates Next Due Influenza LAIV (Nasal) 08/01/2021 Influenza, Quadrivalent, Hig h Dose, Preservative Free, Intrr 05/21/2023 Influenza, Quadrivalent, Spl it, Intramuscular 05/09/2020 Influenza, Quadrivalent, Spl it, Preservative Free, Intramuscular 08/01/2021,06/11/2019 Influenza, Trivalent, High D ose, Split, Preservative Free, Intramuscular 04/14/2024 Influenza, Unspecified 05/12/2022,2021(Deferred: Patient Refused),04/26/2021,08/01/2020(Deferre d: Patient Refused) Pfizer SARS-CoV-2 Monovalent Vaccination (12+ Yrs) TUCKER-READY TO USE 10/19/2021 Tdap 12/16/2014 Social History Tobacco Use [...] often do you attend chur ch or mosque services? 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42 08/21/2024 3:25 PM DIRECTOR PRODUCT SAFETY Plan of Treatment Not on file Medical Devices Implanted Type Area Silverware Supervisor Device Identifier Shelf Expiration Date Model / Serial / Lot Photofix Bovine 6x8 Pericardium Pfp 6x8 - S000 - [id number] Implanted:Qty: 1 on 11/23/2021 by Adal Moore MD at [facility] Graft N/A: Heart Cryolife Inc 08/20/2023 PFP 6X8 / 000 / [id number] [employer] [place] [employer] Sensation Plus 7.5fr 6in 2 Statlock Device Fiber Optic Insertion [id number] - S000 - [id number] Implanted:Qty: 1 on 11/22/2021 by Adal Moore MD at [facility] Other - see comments Left: Groin [employer]E [employer] 03/12/2023 0684-00- [id number] / 000 / [id number] Description:IABP Pacemaker- 6 Implanted: 016 by Unknown, Alfredo (Quantity not on file) Pacemaker Chest [facility] [employer] [id number] / [id number] / Description:Did not get lead information - office did not schedule MRI exam, device is not conditional for MRI and provider is looking into other options JL 09/28/21 On-X Intrnl Gelweave Valsalva 22mm 19.4mm 30mm 11cm Mechanical Conduit Sew Onxaap-21 - [id number] - [id number] Implanted:Qty: 1 on 11/22/2021 by Adal Moore MD at [facility] Prosthetic Valve N/A: Aorta On-X Intrnl 04/08/2023 ONXAAP-2 1 / [id number] / 000 Photofix Bovine 6x8 Pericardium Pfp 6x8 - S000 - [id number] Implanted:Qty: 1 on 11/22/2021 by Adal Moore MD at [facility] N/A: Heart [employer]ife Inc 08/06/2023 PFP 6X8 / 000 / [id number] Description:Given to sterile field for PRN use on surgical site Photofix Bovine 6x8 Pericardium Pfp 6x8 - [id number] Implanted:Qty: 1 on 11/28/2021 by Adal Moore MD at [facility] N/A: Heart [employer]ife Inc 08/06/2023 PFP 6X8 / / [id number] Medtronic Inc Simulus 24mm Semirigid Band Annuloplasty 800sc-24 - [id number] - [id number] Implanted:Qty: 1 on 11/28/2021 by Adal Moore MD at [facility] N/A: Heart Medtronic Inc 03/15/2023 800SC-24 / [id number] / Terumo Cardio Vascular Gelweave Od6 Mm L30 Cm Suture Retention Unique Hydrolyzable Abdomen Thorax Straight Graft Cardiovascular Gelatin Polyester Woven [id number] - [id number] - [id number] Implanted:Qty: 1 on 11/28/2021 by Adal Moore MD at [facility] N/A: Chest [employer]umo Cardio Vascular 08/08/2024 [id number] / [id number] / [id number] Procedures Procedure Name Priority Date/Time Associated Diagnosis Comments CT ABDOMEN PELVIS WO CONTRAST Schedule SABA, Read Routine (Patient lives out of area) 08/22/2024 3:55 PM DIRECTOR PRODUCT SAFETY Left flank pain URINE CULTURE Routine 08/21/2024 8:48 PM DIRECTOR PRODUCT SAFETY Left flank pain POCT URINALYSIS DIPSTICK Routine 08/21/2024 3:52 PM DIRECTOR PRODUCT SAFETY Left flank pain PROTIME-INR Routine 08/14/2024 12:10 PM DIRECTOR PRODUCT SAFETY Status post mechanical aortic valve replacement Paroxysmal atrial fibrillation (CMS/HCC) (HCC) Chronic anticoagulation PROTIME-INR Routine 08/06/2024 12:00 PM DIRECTOR PRODUCT SAFETY Status post mechanical aortic valve replacement Paroxysmal atrial fibrillation (CMS/HCC) (HCC) Chronic anticoagulation DEVICE CHECK - REMOTE Routine 07/17/2024 1:26 PM DIRECTOR PRODUCT SAFETY H/O cardiomyopathy LBBB (left bundle branch block) Atrial fibrillation, unspecified type (HCC) PROTIME-INR Routine 06/26/2024 1:37 PM DIRECTOR PRODUCT SAFETY Status post mechanical aortic valve replacement Paroxysmal atrial fibrillation (CMS/HCC) (HCC) Chronic anticoagulation SCREENING MAMMOGRAM BILATERAL W JAMEL Schedule Routine, Read Routine (OP Routine) 07/17/2023 12:59 PM DIRECTOR PRODUCT SAFETY Encounter for screening mammogram for malignant neoplasm of breast DEXA AXIAL SKELETON BONE DENSITY 1 OR MORE SITES Schedule Routine, Read Routine (OP Routine) 08/30/2021 10:30 AM DIRECTOR PRODUCT SAFETY Osteopenia of spine HEPATITIS C ANTIBODY Routine 08/17/2021 3:29 PM DIRECTOR PRODUCT SAFETY Encounter for hepatitis C screening test for low risk patient from Last 3 Months or Most Recently Relevant to Health Maintenance Results * CT Abdomen Pelvis WO Contrast (08/22/2024 3:55 PM DIRECTOR PRODUCT SAFETY) Anatomical Region Laterality Modality Body N/A Computed Tomogra phy 08/22/2024 4:06 PM DIRECTOR PRODUCT SAFETY Narrative 08/22/2024 4:18 PM DIRECTOR PRODUCT SAFETY EXAM DESCRIPTION: CT ABDOMEN PELVIS WO CONTRAST [...] Sidney Garcia M.D. AM: AM Report ID: [id number] Reading Location: [id number] Procedure Note Sidney Garcia MD - 08/22/2024 [...] Sidney Garcia M.D. AM: AM Report ID: [id number] Reading Location: [place] [address] us Quirino Berger MD IM CT PROCEDURES Final Res ult * (ABNORMAL) Urine culture Urine, clean voided (08/21/2024 8:48 PM DIRECTOR PRODUCT SAFETY) Report Final Report: Greater than or equal to 100,000 colonies/mL of Klebsiella pneumoniae (.) Comment:Testing performed by : [facility], [address] [place]., [address] Organism KLEBSIELLA PNEUMONIAE JULIANA Urine, clean voided 08/21/2024 8:48 PM DIRECTOR PRODUCT SAFETY 08/21/2024 10:19 PM DIRECTOR PRODUCT SAFETY Narrative [facility] - 08/23/2024 3:04 PM DIRECTOR PRODUCT SAFETY Testing performed by [facility] ([phone]) Organism Antibiotic Method Susceptibility Klebsiella pneumoniae Ampicillin [...] INTERPRETATION Susceptible Klebsiella pneumoniae Cefdinir INTERPRETATION Susceptible us Quirino Berger MD LAB MICROBIOLOGY - GENERAL ORDERABLES Final Result JULIANA [address] Department [place] [address] * (ABNORMAL) POCT urinalysis dipstick (08/21/2024 3:52 PM DIRECTOR PRODUCT SAFETY) Glucose, ur, POC 250.(A) Negative MG/DL Bilirubin, ur, POC Negative Negative, Small, Moderate, Large Ketones, ur, POC Negative Negative Specific [place], POC 1.025 1.003 - 1.030 Blood, ur, POC Moderate(A) Negative pH, ur, POC 6.0 5.0 - 8.0 Protein, ur, POC 300.(A) Negative Urobilinogen, urine, POC 1.0 0.2 - 1.0 mg/dL Nitrite, ur, POC Positive(A) Negative Leukocytes, ur, POC Small(A) Negative Lot Number [id number] Urine 08/21/2024 3:52 PM DIRECTOR PRODUCT SAFETY Quirino Berger MD POINT OF CARE TEST ORDERABL ES Final Result * (ABNORMAL) Protime-INR (08/14/2024 12:10 PM DIRECTOR PRODUCT SAFETY) PT 23.6(H) 9.7 - 13.0 sec INR 2.15(H) 0.90 - 1.20 JULIANA Comment: Interpretive data Oral anticoagulant therapeutic ranges: Venous thromboembolism prophylaxis or treatment: 2.0-3.0 CARDIOLOGY Standard range: 2.0-3.0 High-intensity range: 2.5-3.5 Refer to indication-specific guidelines for appropriate target ranges for prosthetic heart valve replacement. Current interpretive data was last revised on 2019. Blood 08/14/2024 12:1 0 PM DIRECTOR PRODUCT SAFETY 08/14/2024 3:19 PM DIRECTOR PRODUCT SAFETY Blake Dee MD LAB BLOOD ORDERABLES Mirtha l Result JULIANA [address] [facility] Department [place] [address] * (ABNORMAL) Protime-INR (08/06/2024 12:00 PM DIRECTOR PRODUCT SAFETY) PT 15.6(H) 9.7 - 13.0 sec INR 1.43(H) 0.90 - 1.20 JULIANA Comment: Interpretive data Oral anticoagulant therapeutic ranges: Venous thromboembolism prophylaxis or treatment: 2.0-3.0 CARDIOLOGY Standard range: 2.0-3.0 High-intensity range: 2.5-3.5 Refer to indication-specific guidelines for appropriate target ranges for prosthetic heart valve replacement. Current interpretive data was last revised on 2019. Blood 08/06/2024 12:0 0 PM DIRECTOR PRODUCT SAFETY 08/06/2024 11:28 PM DIRECTOR PRODUCT SAFETY Blake Dee MD LAB BLOOD ORDERABLES Mirtha l Result JULIANA [address] Department [place] [address] * DEVICE CHECK - REMOTE (07/17/2024 1:26 PM DIRECTOR PRODUCT SAFETY) Anatomical Region Laterality Modality Other Narrative 08/14/2024 8:46 AM DIRECTOR PRODUCT SAFETY Castre[employer] Quadra Allure BIV Pacemaker. Dx; CM, CHF, LBBB, PAF. DOI 09/26/2023-[facility]. Chronic leads 08/16/2015-[place]. [place] remote transfer requested. Device is NOT MRI compatible-confirmed 09/15/21. Dr. Nelly VELÁSQUEZ at [facility]. Aug 2015. Routine DDDR Pacemaker Remote. Transmission attached. Battery status: 2.98 V, 5.7-6.1 years remaining battery life to LETICIA. Stable lead impedances, pacing and sensing thresholds. Presenting rhythm: AP/BP AP-85%, BIVP- >99%. 2 AT/AF episodes noted, longest episode was 20 minutes and 46 seconds in duration, IEGM demonstrates AT/AF. AF [place] < 1%. 46 Ventricular high rate episodes detected, IEGM demonstrates NSVT classified as consecutive PVCs by device. Medications: Warfarin, ASA 81 mg, carvedilol 12.5 mg See scanned report. Office pacemaker follow up: Letter sent to patient to call and schedule office check [place] remote f/u 10/07/24. Vitaliy Hogue, RN Blake Dee MD CV [facility] Final Result * (ABNORMAL) Protime-INR (06/26/2024 1:37 PM DIRECTOR PRODUCT SAFETY) PT 46.9(H) 9.7 - 13.0 sec INR 4.22(H) 0.90 - 1.20 JULIANA RODRIGUEZ Comment: Interpretive data Oral anticoagulant therapeutic ranges: Venous thromboembolism prophylaxis or treatment: 2.0-3.0 CARDIOLOGY Standard range: 2.0-3.0 High-intensity range: 2.5-3.5 Refer to indication-specific guidelines for appropriate target ranges for prosthetic heart valve replacement. Current interpretive data was last revised on 2019. Blood 06/26/2024 1:37 PM DIRECTOR PRODUCT SAFETY 06/26/2024 10:06 PM DIRECTOR PRODUCT SAFETY Blake Dee MD LAB BLOOD ORDERABLES Mirtha aquino Result JULIANA RODRIGUEZ [address] [facility] Department [place] [address] * SCREENING MAMMOGRAM BILATERAL W JAMEL (07/17/2023 12:59 PM DIRECTOR PRODUCT SAFETY) Anatomical Region Laterality Modality Breast Bilateral Mammography 07/17/2023 1:17 PM DIRECTOR PRODUCT SAFETY Impressions 07/17/2023 1:17 PM DIRECTOR PRODUCT SAFETY There is no mammographic evidence of malignancy. A 1 year screening mammogram is recommended. BI-RADS: 2 - Benign. The patient has been or will be contacted. The patient will be entered into a reminder system with a target due date of 1 year for her next mammogram. Electronically signed by: TREVA FIGUEROA Narrative 07/17/2023 1:17 PM DIRECTOR PRODUCT SAFETY EXAMINATION: SCREENING MAMMOGRAM BILATERAL W JAMEL ORDERING [...] 1 Or 2 Site (08/30/2021 10:30 AM DIRECTOR PRODUCT SAFETY) Anatomical Region Laterality Modality Body N/A Other 08/30/2021 10:5 2 AM DIRECTOR PRODUCT SAFETY Narrative 08/30/2021 10:53 AM DIRECTOR PRODUCT SAFETY EXAM DESCRIPTION: DEXA AXIAL SKELETON BONE DENSITY 1 OR MORE SITES REASON FOR STUDY: 66 y/o year old F with given history of screening. 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 TB: TB Report ID: [id number] Reading Location: [facility] Procedure Note Lisa Vann MD - 08/30/2021 EXAM DESCRIPTION: DEXA AXIAL SKELETON BONE DENSITY 1 OR MORE SITES REASON FOR STUDY: 66 y/o year old F with given history ofscreening. 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 TB: TB Report ID: [id number] Reading Location: [facility] Quirino Berger MD IMG DXA PROCEDURES Final Re sult * Hepatitis C antibody (08/17/2021 3:29 PM DIRECTOR PRODUCT SAFETY) Hep C Ab Nonreactive Nonreactive JULIANA RODRIGUEZ Comment: Interpretive Data Nonreactive: Antibodies to HCV [...] revised on 2019. Blood 08/17/2021 3:29 PM DIRECTOR PRODUCT SAFETY 08/17/2021 3:29 PM DIRECTOR PRODUCT SAFETY Quirino Berger MD LAB MICROBIOLOGY - GENERAL ORDERABLES Final Result Performing Organization Address City/State/[facility] Co al Phone Number JULIANA [phone] [address] Department [place] [address] from Last 3 Months or Most Recently Relevant to Health Maintenance Insurance [facility] MEDICARE MEDICARE [facility] MEDICARE Advance Directives For more information, please contact: [phone] Documents on File Type Date Recorded Patient 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
--- OUTSIDE RECORDS SUMMARY | 2024-09-01 14:18 | XMS_ITS | Encounter Summary ---
Author Organization [facility] Healthcare Address [address] [place] [address] Care Team Providers Care Physical Chemistry Professor Name Role Phone Quirino Berger MD Primary Care Provider Vic Sal MD Unavailable Vic Sal MD Unavailable Sameer Lewis RN Unavailable Blake Dee MD Unavailable [phone] Encounter Details Date Type Department Care Team (Late st Contact Info) Description 11/06/2023 Orders Only [facility] Information Management [address] [place] [id number] Scanning, Provider Social History Tobacco Use [...] How often do you attend chur or mu-ism services? 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 Not on file Not on f ile Not on file documented as of this encounter Plan of Treatment Not on file documented as of this encounter Procedures Procedure Name Priority Date/Time Associated Diagnosis Comments SCAN - LABS 11/06/2023 documented in this encounter Results * SCAN - LABS (11/06/2023) us Provider Scanning Final Result documented in this encounter Visit Diagnoses Not on filedocumented in this encounter Additional Health Concerns Infection Onset Date Last Indicated Resolved Time COVID: Suspected 11/13/2023 11/13/2023 11/13/2023 1:38 PM CDT documented as of this encounter Care Teams Physical Chemistry Professor Relationship Specialty Start Date End Date Quirino Berger MD [address] [place] [address] PCP - General Family Medicine 08/01/21 Vic Sal MD [address] [place] [address] Consulting Physician Cardiology 08/01/21 05/27/24 Vic Sal MD [address] [place] [address] Referring Physician Cardiology 11/08/21 05/27/24 Sameer Lewis, MARIA DE JESUS [address] [place] [address] [address] [place] [address] Rip/Mould Operator 08/24/23 Blake Dee MD [address] [facility] [address] [place] [address] Consulting Physician Cardiology 05/28/24 documented as of this encounter
--- OUTSIDE RECORDS SUMMARY | 2024-09-01 14:18 | XMS_ITS | Clinical Summary ---
Author Organization [facility] [employer] Address [address] [place] [address] Care Team Providers Care Viscosity Tester Name Role Phone Unknown, Provider Primary Care Provider Unavaila ble Source Comments [facility],non-owned Affiliates and Associated Physician Practices is amultiple site organization consisting of ambulatory clinics and hospital sitesin [place], [place], [place] and [place]. This disclosure is being madepursuant to the Care Everywhere program and may not contain all information available regarding this patient. Last updated 18.[facility] [employer] Allergies Active Allergy Reactions Criticality Noted Date Comments Atorvastatin Other 06/21/2017 Atropine Other High 10/26/2011 SEVERE hypotension Other reaction(s): Decreased Blood Pressure Hydrocodone-Acetaminophen Itching Medium 09/12/2013 Sulfa Drugs Rash Medium 01/06/2014 Nausea and vomiting Medications * Be aware that medications may not be up to date on this document. Alwaysverify current medications with the patient. Medication Sig Dispensed Refills Start Date End Date Status apixaban (ELIQUIS) 5 MG tablet Take by mouth 2 times daily Active carvedilol (COREG) 6.25 MG tablet Take 6.25 mg by mouth 2 times daily Active FLUoxetine (PROZAC) 20 MG capsule Take 30 mg by mouth once daily Active lisinopril (PRINIVIL;ZESTRIL) 5 MG tablet Take 5 mg by mouth once daily Active albuterol HFA (PROVENTIL; VENTOLIN; PROAIR) 108 (90 Base) MCG/ACT inhalerIndications:Acu te bronchitis, unspecified organism Inhale 2 (two) puffs by mouth every 6 hours as needed for Wheezing or Cough 1 g 1 05/28/2021 Active Social History Tobacco Use Types Packs/Day Years Used Date Smoking Tobacco: Every Day Smokeless Tobacco: Never Sex and Gender Information Value Date Recorded Sex Assigned at Not on file Gender Identity Not on file Sexual Orientation Not on file Last Filed Vital Signs Vital Sign Reading Time Taken Comments Blood Pressure 120/80 05/28/2021 10:41 AM MEDICAL OFFICE COORDINATOR Pulse 78 05/28/2021 10:41 AM MEDICAL OFFICE COORDINATOR Temperature 37 C (98.6 F) 05/28/2021 10:41 AM MEDICAL OFFICE COORDINATOR Respiratory Rate 12 05/28/2021 10:41 AM MEDICAL OFFICE COORDINATOR Oxygen Saturation 99% 05/28/2021 10:41 AM MEDICAL OFFICE COORDINATOR Inhaled Oxygen Concentration - - Weight 70.3 kg (155 lb) 05/28/2021 10:41 AM MEDICAL OFFICE COORDINATOR Height 157.5 cm (5' 2 ) 05/28/2021 10:41 AM MEDICAL OFFICE COORDINATOR Body Mass Index 28.35 05/28/2021 10:41 AM MEDICAL OFFICE COORDINATOR Plan of Treatment Health Maintenance Due Date Last Done Comments BONE DENSITY TESTING 1957 COLOGUARD (AGES 45-75) - COL ON CA SCREENING 1957 COLON MONITORING 1957 COLONOSCOPY - COLON CA SCREENING 1957 CT COLONOGRAPHY - COLON CA SCREENING 1957 Colorectal Cancer Screening 1957 FIT - COLON CA SCREENING 1957 FLEX SIG - COLON CA SCREENING 1957 LIPID TESTING 1957 MAMMOGRAM 1957 HEPATITIS C SCREENING 01/07/1975 DTAP/TDAP/TD VACCINES (1 - Tdap) 01/12/1976 PNEUMOCOCCAL VACCINE 50+ (1 of 2 - PCV) 01/12/1976 ZOSTER VACCINE (1 of 2) 2007 SCREENING FOR DIABETES 05/28/2021 COVID-19 VACCINE ( - 2023-2 5 season) 2024 INFLUENZA VACCINE (#1) 2024 DEPRESSION SCREENING 07/09/2024 Respiratory Syncytial Virus (RSV) Vaccine Pt: or over 60 yrs (1 - 1-dose 75+ series) 01/12/2032 HEPATITIS B VACCINE Aged Out No longe r eligible based on patient's age to complete this topic HIB VACCINE Aged Out No longer eligi ble based on patient's age to complete this topic HPV VACCINE Aged Out No longer eligi ble based on patient's age to complete this topic MENINGOCOCCAL (Group B) VACCINE Aged Out No longer eligible based on patient's age to complete this topic MENINGOCOCCAL VACCINE Aged Out No cassidy kapil eligible based on patient's age to complete this topic Care Teams Viscosity Tester Relationship Specialty Start Date End Date Unknown, Provider PCP - General 05/27/21
--- OUTSIDE RECORDS SUMMARY | 2024-09-01 14:18 | XMS_ITS | Encounter Summary ---
Author Organization [facility] Address [address] [place] [address] Care Team Providers Care Construction Trades Contractor Name Role Phone Unavailable Primary Care Provider Unavailabl e Prior Encounters Date Type Department Care Team Description 07/28/2019 Converted 13x Documents [facility] [address] [place] [address] [place] [phone] <No scans attached> 07/28/2019 Converted CPS Chart Documents [facility] [address] [place] [address] [place] [phone] <No scans attached> Plan of Treatment Not on file Procedures Procedure Name Priority Date/Time Associated Diagnosis Comments 31 LIMITED ORAL EVALUATION - PROBLEM FOCUSED Routine 01/05/2020 12:00 AM MST 26 DFL COMPOSITE FILLING Routine 020 12:00 AM MST 27 MF COMPOSITE FILLING Routine 01/05/20 20 12:00 AM MST MISSED APPOINTMENT Routine 08/29/2019 1: 00 AM MST 2 TREATMENT OF ROOT CANAL OBSTRUCTION; NON-SURGICAL ACCESS Routine 08/19/2019 1:00 AM MST LIMITED ORAL EVALUATION - PROBLEM FOCUSED Routine 08/19/2019 1:00 AM MST 2 ENDODONTIC THERAPY, MOLAR TOOTH (EXCLUDING FINAL CHRISTIANITY) Routine 08/19/2019 1:00 AM MST 2 CORE BUILDUP, INCLUDING ANY PINS WHEN REQUIRED Routine 08/19/2019 1:00 AM MST 3 GUIDED TISSUE REGENERATION, NATURAL TEETH - RESORBABLE BARRIER, PER SITE Routine 08/19/2019 1:00 AM MST 3 BONE REPLACEMENT GRAFT FOR RIDGE PRESERVATION - PER SITE Routine 08/19/2019 1:00 AM MST 3 EXTRACTION, ERUPTED TOOTH REQUIRING REMOVAL OF BONE AND/OR SECTIONING OF TOOTH Routine 08/19/2019 1:00 AM MST DENTAL PLAN ENROLL 1 Routine 08/19/2019 1:00 AM MST OFFICE VISIT FOR OBSERVATION (DURING REGULARLY SCHEDULED HOURS) - NO OTHER SERVICES PERFORMED Routine 08/15/2019 1:00 AM MST 3 LIMITED ORAL EVALUATION - PROBLEM FOCUSED Routine 08/06/2019 1:00 AM MST CANCELLED APPOINTMENT Routine 10/15/2018 12:00 AM MST PERIO MAINTENANCE Routine 07/30/2018 1:0 0 AM MST ORAL HYGIENE INSTRUCTIONS Routine 2018 1:00 AM MST MISSED APPOINTMENT Routine 06/11/2018 1: 00 AM MST TREATMENT OF COMPLICATIONS (POST-SURGICAL) - UNUSUAL CIRCUMSTANCES, BY REPORT Routine 05/23/2018 1:00 AM MST TREATMENT OF COMPLICATIONS (POST-SURGICAL) - UNUSUAL CIRCUMSTANCES, BY REPORT Routine 05/16/2018 1:00 AM MST 18 CORE BUILDUP, INCLUDING ANY PINS WHEN REQUIRED Routine 05/14/2018 1:00 AM MST 18 RECEMENT CROWN Routine 05/14/2018 1:0 0 AM MST 20 GUIDED TISSUE REGENERATION, NATURAL TEETH - RESORBABLE BARRIER, PER SITE Routine 05/14/2018 1:00 AM MST 20 BONE REPLACEMENT GRAFT FOR RIDGE PRESERVATION - PER SITE Routine 05/14/2018 1:00 AM MST 20 EXTRACTION, ERUPTED TOOTH REQUIRING REMOVAL OF BONE AND/OR SECTIONING OF TOOTH Routine 05/14/2018 1:00 AM MST NC X-RAY Routine 05/14/2018 1:00 AM MST 18 CROWN Routine 05/14/2018 1:00 AM MST 30 CORE BUILDUP, INCLUDING ANY PINS WHEN REQUIRED Routine 05/02/2018 12:00 AM MST 2 CORE BUILDUP, INCLUDING ANY PINS WHEN REQUIRED Routine 05/02/2018 12:00 AM MST 30 RECEMENT CROWN Routine 05/02/2018 12: 00 AM MST 2 RECEMENT CROWN Routine 05/02/2018 12:0 0 AM MST NC X-RAY Routine 05/02/2018 12:00 AM MST 30 CROWN Routine 05/02/2018 12:00 AM MST 2 CROWN Routine 05/02/2018 12:00 AM [facility] PERIODIC ORAL EVALUATION - ESTABLISHED PATIENT Routine 04/23/2018 12:00 AM MST UR PERIODONTAL SCALING AND ROOT PLANING - FOUR OR MORE TEETH PER QUADRANT Routine 04/23/2018 12:00 AM MST UL PERIODONTAL SCALING AND ROOT PLANING - FOUR OR MORE TEETH PER QUADRANT Routine 04/23/2018 12:00 AM MST LR PERIODONTAL SCALING AND ROOT PLANING - FOUR OR MORE TEETH PER QUADRANT Routine 04/23/2018 12:00 AM MST LL PERIODONTAL SCALING AND ROOT PLANING - FOUR OR MORE TEETH PER QUADRANT Routine 04/23/2018 12:00 AM MST ORAL HYGIENE INSTRUCTIONS Routine 2017 12:00 AM MST LR JASMYNE DECON/QD Routine 04/23/2018 12:00 AM MST LL JASMYNE DECON/QD Routine 04/23/2018 12:00 AM MST UL JASMYNE DECON/QD Routine 04/23/2018 12:00 AM MST UR JASMYNE DECON/QD Routine 04/23/2018 12:00 AM MST UR ANTIBACT IRR/QUAD Routine 04/23/2018 12:00 AM MST UL ANTIBACT IRR/QUAD Routine 04/23/2018 12:00 AM MST LR ANTIBACT IRR/QUAD Routine 04/23/2018 12:00 AM MST LL ANTIBACT IRR/QUAD Routine 04/23/2018 12:00 AM MST TOPICAL APPLICATION OF FLUORIDE VARNISH Routine 04/23/2018 12:00 AM MST LOCAL ANESTHESIA IN CONJUNCTION WITH OPERATIVE OR SURGICAL PROCEDURES Routine 04/23/2018 12:00 AM MST 12 CORE BUILDUP, INCLUDING ANY PINS WHEN REQUIRED Routine 08/28/2017 1:00 AM MST 12 RECEMENT CROWN Routine 08/28/2017 1:0 0 AM [facility] 12 LIMITED ORAL EVALUATION - PROBLEM FOCUSED Routine 08/28/2017 1:00 AM MST NC X-RAY Routine 08/28/2017 1:00 AM MST ADDITIONAL X-RAY Routine 08/28/2017 1:00 AM MST SINGLE X-RAY Routine 08/28/2017 1:00 AM [facility] 12 CROWN Routine 08/28/2017 1:00 AM [facility] 20 TREATMENT OF ROOT CANAL OBSTRUCTION; NON-SURGICAL ACCESS Routine 04/12/2016 12:00 AM MST 19 TREATMENT OF ROOT CANAL OBSTRUCTION; NON-SURGICAL ACCESS Routine 04/12/2016 12:00 AM MST LIMITED ORAL EVALUATION - PROBLEM FOCUSED Routine 04/12/2016 12:00 AM MST 19 ENDODONTIC THERAPY, MOLAR TOOTH (EXCLUDING FINAL CHRISTIANITY) Routine 04/12/2016 12:00 AM MST 20 ENDODONTIC THERAPY, PREMOLAR TOOTH (EXCLUDING FINAL CHRISTIANITY) Routine 04/12/2016 12:00 AM MST 20 CORE BUILDUP, INCLUDING ANY PINS WHEN REQUIRED Routine 04/12/2016 12:00 AM MST 19 CORE BUILDUP, INCLUDING ANY PINS WHEN REQUIRED Routine 04/12/2016 12:00 AM MST 20 RECEMENT CROWN Routine 04/12/2016 12: 00 AM MST 19 RECEMENT CROWN Routine 04/12/2016 12: 00 AM MST 20 CEREC CROWN POST Routine 04/12/2016 1 2:00 AM MST 19 CEREC CROWN POST Routine 04/12/2016 1 2:00 AM MST ADDITIONAL X-RAY Routine 04/12/2016 12:0 0 AM MST SINGLE X-RAY Routine 04/12/2016 12:00 AM MST 20 LIMITED ORAL EVALUATION - PROBLEM FOCUSED Routine 04/11/2016 12:00 AM MST ADDITIONAL X-RAY Routine 04/11/2016 12:0 0 AM MST SINGLE X-RAY Routine 04/11/2016 12:00 AM MST CANCELLED APPOINTMENT Routine 06/14/2015 1:00 AM MST 5 CORE BUILDUP, INCLUDING ANY PINS WHEN REQUIRED Routine 01/28/2015 12:00 AM MST 4 CORE BUILDUP, INCLUDING ANY PINS WHEN REQUIRED Routine 01/28/2015 12:00 AM MST 5 RECEMENT CROWN Routine 01/28/2015 12:0 0 AM MST 4 RECEMENT CROWN Routine 01/28/2015 12:0 0 AM MST 5 CEREC CROWN POST Routine 01/28/2015 12 :00 AM MST 4 CEREC CROWN POST Routine 01/28/2015 12 :00 AM MST ADDITIONAL X-RAY Routine 01/28/2015 12:0 0 AM MST SINGLE X-RAY Routine 01/28/2015 12:00 AM MST SINGLE X-RAY Routine 01/28/2015 12:00 AM MST CANCELLED APPOINTMENT Routine 01/01/2015 12:00 AM MST 15 CORE BUILDUP, INCLUDING ANY PINS WHEN REQUIRED Routine 12/15/2014 12:00 AM MST 15 RECEMENT CROWN Routine 12/15/2014 12: 00 AM MST 15 CEREC CROWN POST Routine 12/15/2014 1 2:00 AM MST ORAL HYGIENE INSTRUCTIONS Routine 2014 12:00 AM MST 1 JASMYNE DECON Routine 12/11/2014 12:00 AM MST TOPICAL APPLICATION OF FLUORIDE VARNISH Routine 12/11/2014 12:00 AM MST PROPHYLAXIS - ADULT Routine 12/11/2014 1 2:00 AM MST 8 PORCELAIN VENEER Routine 12/04/2014 12 :00 AM MST 14 MOD AMALGAM 3 SURFACE Routine 015 12:00 AM MST 12 DO AMALGAM 2 SURFACE Routine 12/05/19 15 12:00 AM MST 2 MO AMALGAM 2 SURFACE Routine 5 12:00 AM MST 20 O AMALGAM 1 SURFACE Routine 5 12:00 AM MST 15 O AMALGAM 1 SURFACE Routine 5 12:00 AM MST 3 ENDODONTIC THERAPY, MOLAR TOOTH (EXCLUDING FINAL CHRISTIANITY) Routine 12/04/2014 12:00 AM MST 31 ENDODONTIC THERAPY, PREMOLAR TOOTH (EXCLUDING FINAL CHRISTIANITY) Routine 12/04/2014 12:00 AM MST 30 ENDODONTIC THERAPY, PREMOLAR TOOTH (EXCLUDING FINAL CHRISTIANITY) Routine 12/04/2014 12:00 AM MST 29 ENDODONTIC THERAPY, PREMOLAR TOOTH (EXCLUDING FINAL CHRISTIANITY) Routine 12/04/2014 12:00 AM MST 28 ENDODONTIC THERAPY, PREMOLAR TOOTH (EXCLUDING FINAL CHRISTIANITY) Routine 12/04/2014 12:00 AM MST 9 IMPLANT CROWN UNIT Routine 12/04/2014 12:00 AM MST 9 IMPLANT Routine 12/04/2014 12:00 AM MST 31 CROWN PFM POST Routine 12/04/2014 12: 00 AM MST 30 CROWN PFM POST Routine 12/04/2014 12: 00 AM MST 29 CROWN PFM POST Routine 12/04/2014 12: 00 AM MST 28 CROWN PFM POST Routine 12/04/2014 12: 00 AM MST 13 CROWN PFM POST Routine 12/04/2014 12: 00 AM MST 3 CROWN PFM POST Routine 12/04/2014 12:0 0 AM MST 19 CROWN PFM POST Routine 12/04/2014 12: 00 AM MST 9 CROWN PFM ANT Routine 12/04/2014 12:00 AM MST COMPREHENSIVE ORAL EVALUATION - NEW OR ESTABLISHED PATIENT Routine 12/04/2014 12:00 AM MST PANORAMIC RADIOGRAPHIC IMAGE Routine 12/04/2014 12:00 AM MST INTRAORAL - COMPREHENSIVE SERIES OF RADIOGRAPHIC IMAGES Routine 12/04/2014 12:00 AM MST INTRAORAL PHOTO Routine 12/04/2014 12:00 AM MST INTRAORAL PHOTO Routine 12/04/2014 12:00 AM MST INTRAORAL PHOTO Routine 12/04/2014 12:00 AM MST INTRAORAL PHOTO Routine 12/04/2014 12:00 AM MST 4 MOD COMPOSITE FILLING Routine 12/05/19 15 12:00 AM MST 18 MO COMPOSITE FILLING Routine 12/05/19 15 12:00 AM MST 5 DO COMPOSITE FILLING Routine 5 12:00 AM [facility] Visit Diagnoses Not on file
--- OUTSIDE RECORDS SUMMARY | 2024-09-01 14:18 | XMS_ITS | Referral Summary ---
Author Organization [facility] [employer] Address [address] [place] [address] Care Team Providers Care Developer Analyst Name Role Phone Unknown, Provider Primary Care Provider Unavaila ble Source Comments [facility],non-owned Affiliates and Associated Physician Practices is amultiple site organization consisting of ambulatory clinics and hospital sitesin [place], [place], [place] and [place]. This disclosure is being madepursuant to the Care Everywhere program and may not contain all information available regarding this patient. Last updated 18.[facility] [employer] Allergies Active Allergy Reactions Criticality Noted Date [...] Comments Blood Pressure 120/80 05/28/2021 10:41 AM [employer] Pulse 78 05/28/2021 10:41 AM [employer] Temperature 37 C (98.6 F) 05/28/2021 10:41 AM [employer] Respiratory Rate 12 05/28/2021 10:41 AM [employer] Oxygen Saturation 99% 05/28/2021 10:41 AM [employer] Inhaled Oxygen Concentration - - Weight 70.3 kg (155 lb) 05/28/2021 10:41 AM [employer] Height 157.5 cm (5' 2 ) 05/28/2021 10:41 AM [employer] Body Mass Index 28.35 05/28/2021 10:41 AM [employer] Plan of Treatment Not on file Care Teams Developer Analyst Relationship Specialty Start Date End Date Unknown, Provider PCP - General 05/27/21
--- NOTE | 2024-09-01 14:40 | ED_ITS ---
HPI - General Adult General Chief complaint: Urogenital-Female <Precious Schafer PA-C - Last Filed: 09/01/24 14:45> Stated complaint: left flank pain <Precious Schafer PA-C - Last Filed: 09/01/24 14:45> Time Seen by Provider: 09/01/24 15:41 <Precious Schafer PA-C - Last Filed: 09/01/24 14:45> Focused HPI: 69-year-old female presents with son at bedside for left flank pain for 3 weeks. Patient states she was diagnosed with pyelonephritis by her PCP 2 weeks ago. She was started on Cipro which she took for 13 days. States she finished Cipro 2 days ago, however symptoms have persisted and worsened over the past week and she was advised to come to the ER for further evaluation. She denies dysuria, hematuria, urinary frequency urgency, abdominal pain, vomiting or fever. Is endorsing some nausea. She did have urine culture for by her PCP that was positive. She has outpatient CT performed at [facility] which showed no acute findings. Denies injury trauma to her back. GENERAL: Well-appearing, well-nourished, and in no acute distress. HEAD: Normocephalic, atraumatic. CHEST: Clear to auscultation. ?No respiratory distress. ABD: Abdomen soft, nontender, no rebound, guarding rigidity. Left-sided CVA tenderness HEART: Regular rate and rhythm.? NEURO: ?Alert and oriented x3. Patient screened in triage and initial orders placed.? ?Additional care and disposition to be based upon?diagnostic testing and treatment. <Precious Schafer PA-C - Last Filed: 09/01/24 14:45> History of Present Illness HPI narrative: I agree of the above HPI <Varinder Rodriguez MD - Last Filed: 09/01/24 18:36> Related Data Home medications: Home Medications ?Medication ?Instructions ?Recorded ?Confirmed ?Last Taken ?Type trazodone 50 mg tablet 50 mg PO HS 05/26/22 11/06/23 09/24/23 History carvedilol 12.5 mg tablet 12.5 mg PO Q12H 06/13/23 11/06/23 09/26/23 History diphenhydramine HCl 50 mg capsule 50 mg PO QHS PRN Insomnia 06/13/23 11/06/23 09/24/23 History famotidine 40 mg tablet 40 mg PO DAILY 06/13/23 11/06/23 09/26/23 History furosemide 20 mg tablet 20 mg PO DAILY 06/13/23 11/06/23 09/24/23 History rosuvastatin 40 mg tablet 40 mg PO DAILY 06/13/23 11/06/23 09/25/23 History warfarin 3 mg tablet 3 mg PO DIRECTED 06/13/23 11/06/23 09/19/23 History <Precious Schafer PA-C - Last Filed: 09/01/24 14:45> Allergies/adverse reactions: Allergies Allergy/AdvReac Type Severity Reaction Status Date / Time atorvastatin Allergy Unknown Verified 05/06/24 11:41 hydrocodone (From Vicodin) Allergy Itching Verified 05/06/24 11:41 atropine AdvReac Dizziness Verified 05/06/24 11:41 Sulfa (Sulfonamide AdvReac Vomiting Verified 05/06/24 11:41 Antibiotics) <Precious Schafer PA-C - Last Filed: 09/01/24 14:45> Review of Systems 2 Review of Systems: All systems reviewed & are unremarkable except as noted in HPI and below <Varinder Rodriguez MD - Last Filed: 09/01/24 18:36> [facility] Past Medical History Medical History: Medical History Atrial fibrillation Cardiomyopathy Chronic anticoagulation History of cardiac pacemaker HTN (hypertension) Hyperlipidemia Overweight (BMI 25.0-29.9) Pacemaker Biotronik BiV pacemaker, gen change 09/2023 <Precious Schafer PA-C - Last Filed: 09/01/24 14:45> Surgical History Surgical History: Surgical History H/O mechanical aortic valve replacement H/O mitral valve repair S/P AVR (aortic valve replacement) <Precious Schafer PA-C - Last Filed: 09/01/24 14:45> Family History Family History: Family History Father High cholesterol Heart disease Heart attack CABG Mother Heart disease Pacemaker <Precious Schafer PA-C - Last Filed: 09/01/24 14:45> Social History Social History: Social History Smoking packs per day: 1 Smoking cigarettes per day: 20.0 Years smoked: 40 Smoking pack-years: 40.00 Smoking status: Former smoker Tobacco type: cigarettes Smoking end date: 11/22/21 Alcohol intake: never Substance use: never Substance use type: does not use Living arrangements: with family Spiritual care concerns: No <Precious Schafer PA-C - Last Filed: 09/01/24 14:45> Exam 2 Narrative: APPEARANCE: Well appearing, no pain, no distress, well-nourished. HEAD: normocephalic, atraumatic. EYES: PERRLA/EOMI, conjunctivae clear. NOSE: Normal no drainage EARS:TMS clear with good light reflex. THROAT: Pharynx clear, no exudate. NECK: Supple. No adenopathy, no masses. RESPIRATORY: Airway patent, respirations nonlabored. Clear to auscultation bilaterally, no rales, rhonchi, wheezing. CARDIOVASCULAR: Regular rate and rhythm without murmurs rubs or gallops. ABDOMINAL: Soft, nontender, nondistended, normal bowel sounds MUSCULOSKELETAL: Paraspinal muscular tenderness to palpation on the left NEURO: Alert. Cranial nerves II through XII intact. Good gait. Good coordination SKIN: Warm, dry. Normal Color <Varinder Rodriguez MD - Last Filed: 09/01/24 18:36> Course Vital Signs Vital signs: Vital Signs Temperature 97.9 F 09/01/24 12:48 Pulse Rate 89 09/01/24 12:48 Respiratory Rate 16 09/01/24 12:48 Blood Pressure 114/68 09/01/24 12:48 Pulse Oximetry 98 09/01/24 12:48 Temperature 97.7 F 09/01/24 17:02 Pulse Rate 75 09/01/24 17:31 Respiratory Rate 18 09/01/24 17:31 Blood Pressure 108/84 09/01/24 17:31 Pulse Oximetry 97 09/01/24 17:31 <Precious Schafer PA-C - Last Filed: 09/01/24 14:45> Vital Signs Temperature 97.9 F 09/01/24 12:48 Pulse Rate 89 09/01/24 12:48 Respiratory Rate 16 09/01/24 12:48 Blood Pressure 114/68 09/01/24 12:48 Pulse Oximetry 98 09/01/24 12:48 Temperature 97.7 F 09/01/24 17:02 Pulse Rate 75 09/01/24 17:31 Respiratory Rate 18 09/01/24 17:31 Blood Pressure 108/84 09/01/24 17:31 Pulse Oximetry 97 09/01/24 17:31 <Varinder Rodriguez MD - Last Filed: 09/01/24 18:36> Medical Decision Making MDM Narrative Medical decision making narrative: 69-year-old female presents emergency department for evaluation for back pain. Patient was recently treated with Cipro for a suspected urinary tract infection. Patient denies any urinary symptoms but is having back pain. Patient is currently afebrile with no leukocytosis and hemoglobin of 9.8. Which is similar to baseline patient does have a creatinine of 1.5 which is also similar to her previous baseline. UA did have 3 5 red blood cells many squamous cells and +3 bacteria but it was nitrite negative and leukocyte esterase negative. Urine culture was ordered. CT scan showed no etiology for the patient's pain. Patient's pain is very reproducible to the paraspinal muscles. Patient will not be started on any antibiotics for infection. Patient will be provided medications for pain control focused at back pain. Patient was informed that a urine culture was ordered and patient was encouraged to have close follow-up with Urology for persistent hematuria. <Varinder Rodriguez MD - Last Filed: 09/01/24 18:36> Differential Diagnosis Differential Diagnosis: Colitis, diverticulitis, UTI, ureteral calculi, muscular back strain having <Varinder Rodriguez MD - Last Filed: 09/01/24 18:36> Vital Signs Vital Signs: Vital Signs Temperature 97.9 F 09/01/24 12:48 Pulse Rate 89 09/01/24 12:48 Respiratory Rate 16 09/01/24 12:48 Blood Pressure 114/68 09/01/24 12:48 Pulse Oximetry 98 09/01/24 12:48 Temperature 97.7 F 09/01/24 17:02 Pulse Rate 75 09/01/24 17:31 Respiratory Rate 18 09/01/24 17:31 Blood Pressure 108/84 09/01/24 17:31 Pulse Oximetry 97 09/01/24 17:31 <Precious Schafer PA-C - Last Filed: 09/01/24 14:45> Vital Signs Temperature 97.9 F 09/01/24 12:48 Pulse Rate 89 09/01/24 12:48 Respiratory Rate 16 09/01/24 12:48 Blood Pressure 114/68 09/01/24 12:48 Pulse Oximetry 98 09/01/24 12:48 Temperature 97.7 F 09/01/24 17:02 Pulse Rate 75 09/01/24 17:31 Respiratory Rate 18 09/01/24 17:31 Blood Pressure 108/84 09/01/24 17:31 Pulse Oximetry 97 09/01/24 17:31 <Varinder Rodriguez MD - Last Filed: 09/01/24 18:36> Lab Data Lab results reviewed: Yes I reviewed the patient's lab results. <Varinder Rodriguez MD - Last Filed: 09/01/24 18:36> Result diagrams: 09/01/24 14:52 09/01/24 14:52 <Precious Schafer PA-C - Last Filed: 09/01/24 14:45> Labs: Lab Results 09/01/24 09/01/24 Range/Units 14:52 15:31 WBC 7.6 (4.5-10.0) K/mm3 RBC 3.62 L (4.2-5.4) M/mm3 Hgb 9.8 L (12.0-15.0) g/dL Hct 32.7 L (37.0-47.0) % MCV 90.3 (80-100) fl MCH 27.1 (26-34) pg MCHC 30.0 L (32-36) g/dl RDW 14.2 (11.5-14.5) % Plt Count 221 (150-375) k/mm3 MPV 10.1 (7.4-10.4) fl Immature Gran % (Auto) 0.3 (0-0.5) % Neut % (Auto) 76.0 H (45.5-73.1) % Lymph % (Auto) 15.5 L (18.3-44.2) % [place] % (Auto) 4.7 (2.6-8.5) % Eos % (Auto) 2.8 (0-4.4) % Baso % (Auto) 0.7 (0.2-1.2) % Lymph # (Auto) 1.18 (0.9-3.2) K/mm3 Hod[place]eman # (Auto) 0.4 (0.1-0.6) K/mm3 Eos # (Auto) 0.2 (0-0.3) K/mm3 Baso # (Auto) 0.1 (0.0-0.1) K/mm3 Abs Immat Gran (auto) 0.02 (0.00-0.031) K/mm3 Absolute Neuts (auto) 5.8 (1.3-6.7) K/mm3 Absolute Nucleated RBC 0.000 (0.0-0.012) K/mm3 Nucleated RBC % 0.0 (0.0-0.2) % Sodium 141 (137-145) mmol/L Potassium 4.6 (3.4-5.0) mmol/L Chloride 102 (98-107) mmol/L Carbon Dioxide 29 (22-30) mmol/L Anion Gap 10 (4-12) mmol/L BUN 17 (7-17) mg/dL Creatinine 1.52 H (0.7-1.0) mg/dL Estim Creat Clear Calc 26 ml/min Estimated GFR 34 L (59 - ) Glucose 92 (65-110) mg/dL Calcium 9.8 (8.4-10.2) mg/dL Total Bilirubin 0.4 (0.2-1.3) mg/dL AST 23 (14-36) U/L ALT 14 (6-35) U/L Alkaline Phosphatase 91 (38-126) U/L Total Protein 8.0 (6.3-8.2) g/dL Albumin 4.2 (3.5-5.1) g/dL Urine Color Yellow (Yellow) Urine Appearance Cloudy H (Clear) Urine pH 6.0 (5.0-9.0) Ur Specific [place] 1.025 (1.001-1.035) Urine Protein 1+ H (Negative) mg/dL Urine Glucose (UA) Negative (Negative) mg/dL Urine Ketones Trace H (Negative) mg/dL Ur Blood (Man) Negative (Negative) Urine Nitrate Negative (Negative) Urine Bilirubin Negative (Negative) Urine Urobilinogen 0.2 (<2.0) mg/dL Leukocyte Esterase Rfl Negative (Negative) YANG/UL Urine RBC 3-5 H (0-2) /hpf Urine WBC 0-5 (0-3) /hpf Ur Squamous Epith Cells Many H (Few) /hpf Urine Bacteria 3+ H /hpf Urine Casts 3-5 <Precious Schafer PA-C - Last Filed: 09/01/24 14:45> Lab Results 09/01/24 09/01/24 Range/Units 14:52 15:31 WBC 7.6 (4.5-10.0) K/mm3 RBC 3.62 L (4.2-5.4) M/mm3 Hgb 9.8 L (12.0-15.0) g/dL Hct 32.7 L (37.0-47.0) % MCV 90.3 (80-100) fl MCH 27.1 (26-34) pg MCHC 30.0 L (32-36) g/dl RDW 14.2 (11.5-14.5) % Plt Count 221 (150-375) k/mm3 MPV 10.1 (7.4-10.4) fl Immature Gran % (Auto) 0.3 (0-0.5) % Neut % (Auto) 76.0 H (45.5-73.1) % Lymph % (Auto) 15.5 L (18.3-44.2) % Hodgeman % (Auto) 4.7 (2.6-8.5) % Eos % (Auto) 2.8 (0-4.4) % Baso % (Auto) 0.7 (0.2-1.2) % Lymph # (Auto) 1.18 (0.9-3.2) K/mm3 [place]eman # (Auto) 0.4 (0.1-0.6) K/mm3 Eos # (Auto) 0.2 (0-0.3) K/mm3 Baso # (Auto) 0.1 (0.0-0.1) K/mm3 Abs Immat Gran (auto) 0.02 (0.00-0.031) K/mm3 Absolute Neuts (auto) 5.8 (1.3-6.7) K/mm3 Absolute Nucleated RBC 0.000 (0.0-0.012) K/mm3 Nucleated RBC % 0.0 (0.0-0.2) % Sodium 141 (137-145) mmol/L Potassium 4.6 (3.4-5.0) mmol/L Chloride 102 (98-107) mmol/L Carbon Dioxide 29 (22-30) mmol/L Anion Gap 10 (4-12) mmol/L BUN 17 (7-17) mg/dL Creatinine 1.52 H (0.7-1.0) mg/dL Estim Creat Clear Calc 26 ml/min Estimated GFR 34 L (59 - ) Glucose 92 (65-110) mg/dL Calcium 9.8 (8.4-10.2) mg/dL Total Bilirubin 0.4 (0.2-1.3) mg/dL AST 23 (14-36) U/L ALT 14 (6-35) U/L Alkaline Phosphatase 91 (38-126) U/L Total Protein 8.0 (6.3-8.2) g/dL Albumin 4.2 (3.5-5.1) g/dL Urine Color Yellow (Yellow) Urine Appearance Cloudy H (Clear) Urine pH 6.0 (5.0-9.0) Ur Specific [place] 1.025 (1.001-1.035) Urine Protein 1+ H (Negative) mg/dL Urine Glucose (UA) Negative (Negative) mg/dL Urine Ketones Trace H (Negative) mg/dL Ur Blood (Man) Negative (Negative) Urine Nitrate Negative (Negative) Urine Bilirubin Negative (Negative) Urine Urobilinogen 0.2 (<2.0) mg/dL Leukocyte Esterase Rfl Negative (Negative) YANG/UL Urine RBC 3-5 H (0-2) /hpf Urine WBC 0-5 (0-3) /hpf Ur Squamous Epith Cells Many H (Few) /hpf Urine Bacteria 3+ H /hpf Urine Casts 3-5 <Varinder Rodriguez MD - Last Filed: 09/01/24 18:36> Imaging Data Radiologist's impression: Impressions Abdomen/Pelvis CT 09/01/24 15:23 IMPRESSION: 1. No urolithiasis or acute intra-abdominal/pelvic process. 2. Mild emphysema with bibasilar atelectasis, more prominent on the left where there is unchanged elevation the left hemidiaphragm. 3. Cardiomegaly. <Varinder Rodriguez MD - Last Filed: 09/01/24 18:36> Discharge Plan Discharge Clinical Impression: Back pain, Hematuria <Precious Schafer PA-C - Last Filed: 09/01/24 14:45> Patient Disposition: Home, Self-Care <Precious Schafer PA-C - Last Filed: 09/01/24 14:45> Condition: Stable <Precious Schafer PA-C - Last Filed: 09/01/24 14:45> Instructions: Antibiotic Form, Hematuria (ED), Back Pain (ED) <Precious Schafer PA-C - Last Filed: 09/01/24 14:45> Additional Instructions: Your urine did have some blood but no significant evidence for infection, urine culture was ordered. CT scan showed no acute abnormalities. Being provided medications for muscular back pain. You need to have close follow-up with Urology for the hematuria. If you have any worsening symptoms please call or return to the emergency department. <Precious Schafer PA-C - Last Filed: 09/01/24 14:45> Patient Language: Hungarian <Precious Schafer PA-C - Last Filed: 09/01/24 14:45> Prescriptions: New oxycodone 5 mg tablet 5 mg PO Q8H PRN (Reason: pain) Qty: 10 0RF cyclobenzaprine 10 mg tablet 10 mg PO BID PRN (Reason: muscle spasm) Qty: 14 0RF No Action spironolactone [Aldactone] 25 mg Tablet 25 mg PO DAILY Qty: 30 0RF sertraline 100 mg Tablet 100 mg PO DAILY Qty: 30 0RF famotidine 40 mg tablet 40 mg PO DAILY furosemide 20 mg tablet 20 mg PO DAILY warfarin 3 mg tablet 3 mg PO DIRECTED Rx Instructions: 3mg Tues+Th; 4.5mg Mon,Wed,Fri,Sat,Sun rosuvastatin 40 mg tablet 40 mg PO DAILY carvedilol 12.5 mg tablet 12.5 mg PO Q12H Rx Instructions: must administer with a meal/food diphenhydramine HCl 50 mg capsule 50 mg PO QHS PRN (Reason: Insomnia) trazodone 50 mg Tablet 50 mg PO HS zckxetkfcq-iroachvq-zcjmpnlfrx 160-9-4.8 mcg/actuation HFA aerosol inhaler 2 inh inhalation BID Qty: 10.7 6RF xowwxmelhn-gaucsuex-fensooejhg 160-9-4.8 mcg/actuation HFA aerosol inhaler 2 inh inhalation BID Qty: 10.7 3RF ycveaalsbt-vjfomogb-rfkapxwywg 160-9-4.8 mcg/actuation HFA aerosol inhaler 2 inh inhalation BID Qty: 10.7 3RF albuterol sulfate 90 mcg/actuation HFA aerosol inhaler 1 puff inhalation Q4H PRN (Reason: Shortness Of Breath) Qty: 8.5 6RF <Precious Schafer PA-C - Last Filed: 09/01/24 14:45> Follow-up/Referrals: Martinez Davis MD [Physician] - Ab,Quirino Chávez MD [Primary Care Provider] - <Precious Schafer PA-C - Last Filed: 09/01/24 14:45>
[2024-09-01 14:59] LABS: Basophils Absolute Auto 0.1 K/mm3 (0.0-0.1); Basophils Percent Auto 0.7 % (0.2-1.2); Eosinophils Absolute Auto 0.2 K/mm3 (0-0.3); Eosinophils Percent Auto 2.8 % (0-4.4); Hematocrit 32.7 % (37.0-47.0); Hemoglobin 9.8 g/dL (12.0-15.0); Immature Granulocyte Absolute 0.02 K/mm3 (0.00-0.031); Immature Granulocyte Percent A 0.3 % (0-0.5); Lymphocytes Absolute Auto 1.18 K/mm3 (0.9-3.2); Lymphocytes Percent Auto 15.5 % (18.3-44.2); Mean Corpuscular Hemoglobin 27.1 pg (26-34); Mean Corpuscular Volume 90.3 fl (80-100); Mean Platelet Volume 10.1 fl (7.4-10.4); Monocytes Absolute Auto 0.4 K/mm3 (0.1-0.6); Monocytes Percent Auto 4.7 % (2.6-8.5); Neutrophils Absolute Auto 5.8 K/mm3 (1.3-6.7); Platelet Count Result 221 k/mm3 (150-375); Red Blood Count 3.62 M/mm3 (4.2-5.4); Red Cell Distribution Width 14.2 % (11.5-14.5); White Blood Count 7.6 K/mm3 (4.5-10.0)
[2024-09-01 15:16] LABS: Alanine Aminotransferase 14 U/L (6-35); Albumin Level 4.2 g/dL (3.5-5.1); Alkaline Phosphatase 91 U/L (38-126); Anion Gap 10 mmol/L (4-12); Aspartate Amino Transferase 23 U/L (14-36); Bilirubin,Total 0.4 mg/dL (0.2-1.3); Blood Urea Nitrogen 17 mg/dL (7-17); Calcium 9.8 mg/dL (8.4-10.2); Carbon Dioxide 29 mmol/L (22-30); Chloride 102 mmol/L (98-107); Estimated CRCL calculation 26 ml/min; Estimated Glomerular Filt Rate 34; Glucose 92 mg/dL (65-110); Potassium 4.6 mmol/L (3.4-5.0); Sodium 141 mmol/L (137-145)
[2024-09-01 15:32] VITALS: BP 107/61; PULSE 70; RESP 20; TEMP 36.6; O2SAT 97
[2024-09-01 16:02] VITALS: BP 106/57; PULSE 72; RESP 18; TEMP 36.5; O2SAT 95
[2024-09-01 16:32] VITALS: BP 103/53; PULSE 74; RESP 20; O2SAT 92
[2024-09-01 16:52] LABS: Add Urine Microscopic? YES; Appearance Urine Cloudy (Clear); Bacteria Urine 3+ /hpf; Bilirubin Urine Negative (Negative); Blood Urine Negative (Negative); Color Urine Yellow (Yellow); Glucose Urine UA Negative (Negative); Ketones Urine Trace mg/dL (Negative); Leukocyte Esterase Ur Negative LEU/UL (Negative); Nitrate Urine Negative (Negative); Protein Urine 1+ mg/dL (Negative); Specific Grav Ur 1.025 (1.001-1.035); Squamous Epithelial Cell Urine Many /hpf (Few); Urobilinogen Urine 0.2 mg/dL (<2.0); WBC Urine 0-5 /hpf (0-3)
[2024-09-01] MEDS: KETOROLAC 15 MG/ML VIAL (*BKC) IV PUSH (17:01)
[2024-09-01] MEDS: CYCLOBENZAPRINE HCL 10 MG TABLET PO (17:01)
[2024-09-01 17:02] VITALS: BP 104/58; PULSE 74; RESP 20; TEMP 36.5; O2SAT 96
[2024-09-01 17:31] VITALS: BP 108/84; PULSE 75; RESP 18; O2SAT 97
--- OUTSIDE RECORDS SUMMARY | 2024-09-01 18:21 | XMS_ITS | Clinical Summary ---
Author Organization [facility] Address [address] [place] [address] Care Team Providers Care Production Weigher Name Role Phone Unavailable Primary Care Provider [...]
--- OUTSIDE RECORDS SUMMARY | 2024-09-01 18:21 | XMS_ITS | Referral Summary ---
Author Organization [facility] [employer] Address [address] [place] [address] Care Team Providers Care Investor Relations Specialist Name Role Phone Unknown, Provider Primary Care Provider Unavaila ble Source Comments [facility],non-owned Affiliates and Associated Physician Practices is amultiple site organization consisting of ambulatory clinics and hospital sitesin [place], [place], [place] and [place]. This disclosure is being madepursuant to the Care Everywhere program and may not contain all information available regarding this patient. Last updated 18.[facility] [employer] Allergies Active Allergy Reactions Criticality Noted Date [...] Comments Blood Pressure 120/80 05/28/2021 10:41 AM BIOLOGY RESEARCH ASSISTANT Pulse 78 05/28/2021 10:41 AM BIOLOGY RESEARCH ASSISTANT Temperature 37 C (98.6 F) 05/28/2021 10:41 AM BIOLOGY RESEARCH ASSISTANT Respiratory Rate 12 05/28/2021 10:41 AM BIOLOGY RESEARCH ASSISTANT Oxygen Saturation 99% 05/28/2021 10:41 AM BIOLOGY RESEARCH ASSISTANT Inhaled Oxygen Concentration - - Weight 70.3 kg (155 lb) 05/28/2021 10:41 AM BIOLOGY RESEARCH ASSISTANT Height 157.5 cm (5' 2 ) 05/28/2021 10:41 AM BIOLOGY RESEARCH ASSISTANT Body Mass Index 28.35 05/28/2021 10:41 AM BIOLOGY RESEARCH ASSISTANT Plan of Treatment Not on file Care Teams Investor Relations Specialist Relationship Specialty Start Date End Date Unknown, Provider PCP - General 05/27/21
--- OUTSIDE RECORDS SUMMARY | 2024-09-01 18:21 | XMS_ITS | Clinical Summary ---
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
--- OUTSIDE RECORDS SUMMARY | 2024-09-01 18:21 | XMS_ITS | Clinical Summary ---
Author Organization [facility] [employer] Address [address] [place] [address] Care Team Providers Care Weatherization Crew Leader Name Role Phone Unknown, Provider Primary Care Provider Unavaila ble Source Comments [facility],non-owned Affiliates and Associated Physician Practices is amultiple site organization consisting of ambulatory clinics and hospital sitesin [place], [place], [place] and [place]. This disclosure is being madepursuant to the Care Everywhere program and may not contain all information available regarding this patient. Last updated 18.[facility] [employer] Allergies Active Allergy Reactions Criticality Noted Date [...] Comments Blood Pressure 120/80 05/28/2021 10:41 AM HANDY WORKER Pulse 78 05/28/2021 10:41 AM HANDY WORKER Temperature 37 C (98.6 F) 05/28/2021 10:41 AM HANDY WORKER Respiratory Rate 12 05/28/2021 10:41 AM HANDY WORKER Oxygen Saturation 99% 05/28/2021 10:41 AM HANDY WORKER Inhaled Oxygen Concentration - - Weight 70.3 kg (155 lb) 05/28/2021 10:41 AM HANDY WORKER Height 157.5 cm (5' 2 ) 05/28/2021 10:41 AM HANDY WORKER Body Mass Index 28.35 05/28/2021 10:41 AM HANDY WORKER Plan of Treatment Health Maintenance Due Date [...] age to complete this topic Care Teams Weatherization Crew Leader Relationship Specialty Start Date End Date Unknown, Provider PCP - General 05/27/21
--- OUTSIDE RECORDS SUMMARY | 2024-09-01 18:21 | XMS_ITS | Encounter Summary ---
Author Organization [facility] [place] [address] [place] [address] Care Team Providers Care Clinical Data Programmer Name Role Phone Unavailable Primary Care Provider Unavailabl e Prior Encounters Date Type Department Care Team Description 07/28/2019 Converted 13x Documents [facility] [address] [place] [phone] <No scans attached> 07/28/2019 Converted CPS Chart Documents [facility] [address] [place] [phone] <No scans attached> Plan of Treatment Not [...] 2 ENDODONTIC THERAPY, MOLAR TOOTH (EXCLUDING FINAL ORTHODOX) Routine 08/19/2019 1:00 AM MST 2 CORE [...] MST 2 CROWN Routine 05/02/2018 12:00 AM [facility] PERIODIC ORAL EVALUATION - ESTABLISHED PATIENT Routine [...] RECEMENT CROWN Routine 08/28/2017 1:0 0 AM [facility] 12 LIMITED ORAL EVALUATION - PROBLEM FOCUSED Routine 08/28/2017 1:00 AM MST NC X-RAY Routine 08/28/2017 1:00 AM MST ADDITIONAL X-RAY Routine 08/28/2017 1:00 AM MST SINGLE X-RAY Routine 08/28/2017 1:00 AM [facility] 12 CROWN Routine 08/28/2017 1:00 AM [facility] 20 TREATMENT OF ROOT CANAL OBSTRUCTION; NON-SURGICAL ACCESS Routine 04/12/2016 12:00 AM MST 19 TREATMENT OF ROOT CANAL OBSTRUCTION; NON-SURGICAL ACCESS Routine 04/12/2016 12:00 AM MST LIMITED ORAL EVALUATION - PROBLEM FOCUSED Routine 04/12/2016 12:00 AM MST 19 ENDODONTIC THERAPY, MOLAR TOOTH (EXCLUDING FINAL ORTHODOX) Routine 04/12/2016 12:00 AM MST 20 ENDODONTIC THERAPY, PREMOLAR TOOTH (EXCLUDING FINAL ORTHODOX) Routine 04/12/2016 12:00 AM MST 20 CORE [...] 3 ENDODONTIC THERAPY, MOLAR TOOTH (EXCLUDING FINAL ORTHODOX) Routine 12/04/2014 12:00 AM MST 31 ENDODONTIC THERAPY, PREMOLAR TOOTH (EXCLUDING FINAL ORTHODOX) Routine 12/04/2014 12:00 AM MST 30 ENDODONTIC THERAPY, PREMOLAR TOOTH (EXCLUDING FINAL ORTHODOX) Routine 12/04/2014 12:00 AM MST 29 ENDODONTIC THERAPY, PREMOLAR TOOTH (EXCLUDING FINAL ORTHODOX) Routine 12/04/2014 12:00 AM MST 28 ENDODONTIC THERAPY, PREMOLAR TOOTH (EXCLUDING FINAL ORTHODOX) Routine 12/04/2014 12:00 AM MST 9 IMPLANT [...] DO COMPOSITE FILLING Routine 5 12:00 AM [facility] Visit Diagnoses Not on file
--- OUTSIDE RECORDS SUMMARY | 2024-09-01 18:21 | XMS_ITS | Clinical Summary ---
Author Organization [facility] [place] [address] [place] [address] Care Team Providers Care Photo Technologist Name Role Phone Unavailable Primary Care Provider [...]
--- OUTSIDE RECORDS SUMMARY | 2024-09-01 18:21 | XMS_ITS | Patient Health Summary ---
Author Organization [facility] Address [address] [place] [address] Care Team Providers Care Residential Life Director Name Role Phone Unknown, Provider Primary Care Provider Unavaila ble Note from [facility],non-owned Affiliates and Associated Physician Practices is amultiple site organization consisting of ambulatory clinics and hospital sitesin [place], [place], [place] and [place]. This disclosure is being madepursuant to the Care Everywhere program and may not contain all information available regarding this patient. Last updated 18.[facility] Allergies * Atorvastatin(Other) * Atropine(Other) -High Criticality [...] Comments Blood Pressure 120/80 05/28/2021 10:41 AM TONE ARTIST APPRENTICE Pulse 78 05/28/2021 10:41 AM TONE ARTIST APPRENTICE Temperature 37 C (98.6 F) 05/28/2021 10:41 AM TONE ARTIST APPRENTICE Respiratory Rate 12 05/28/2021 10:41 AM TONE ARTIST APPRENTICE Oxygen Saturation 99% 05/28/2021 10:41 AM TONE ARTIST APPRENTICE Inhaled Oxygen Concentration - - Weight 70.3 kg (155 lb) 05/28/2021 10:41 AM TONE ARTIST APPRENTICE Height 157.5 cm (5' 2 ) 05/28/2021 10:41 AM TONE ARTIST APPRENTICE Body Mass Index 28.35 05/28/2021 10:41 AM TONE ARTIST APPRENTICE Care Teams Residential Life Director Relationship Specialty Start Date End Date Unknown, Provider PCP - General 05/27/21
== END 2024-09-01 18:03 | disposition home or self-care (01) ==
PROVIDERS: Emergency Provider Emergency Medicine; PCP Family Medicine
DX: M54.9 Dorsalgia, unspecified (principal); R31.9 Hematuria, unspecified; I42.9 Cardiomyopathy, unspecified; I48.91 Unspecified atrial fibrillation; I10 Essential (primary) hypertension; E78.5 Hyperlipidemia, unspecified; E66.3 Overweight; Z68.26 Body mass index [BMI] 26.0-26.9, adult; Z95.2 Presence of prosthetic heart valve; Z95.0 Presence of cardiac pacemaker; Z87.891 Personal history of nicotine dependence; Z79.899 Other long term (current) drug therapy; Z79.01 Long term (current) use of anticoagulants; I51.7 Cardiomegaly; J43.9 Emphysema, unspecified
CPT/HCPCS: 36415; 74176; 80053; 81001; 85025; 87086; 96374; 99284; A9270; J1885

== ENCOUNTER 2024-11-10 12:47 | Outpatient (CLI) | payer MEDICARE, OTHER, SELFPAY ==
--- NOTE | ~2024-11-10 | CT_ITS ---
Noncontrast CT scan of the thoracic spine CLINICAL HISTORY: Back pain TECHNIQUE: Axial noncontrast imaging of the thoracic spine was performed. Sagittal and coronal reform atted images were constructed. Dose reduction technique was used on this scan by utilizing automated exposure control and iterative reconstruction technique. The dose-length product (DLP) was 504.43 mGy -cm. COMPARISON: Abdominopelvic CT dated 09/01/2024 FINDINGS: Stable compression fracture deformity of L1 with vertebroplasty cement. There is new marked erosive change about the T10-T11 disc space, involving the inferior aspect of the T10 vertebral body and superior aspect of the T11 vertebral body. Findings raise the possibility of osteomyelitis/discitis versus acute Schmorl's nodes. Otherwise, the remaining osseous structures appe ar intact. There is multilevel minimal degenerative disc change in the thoracic spine. No definite disc bulge or herniation seen in the thoracic spine. No definite canal stenosis or cord c ompression. Neural foramen appear intact. Impression: Prominent new erosive change centered about the T10-T11 disc space since August 2024. Diagnostic co nsiderations include discitis/osteomyelitis versus acute Schmorl's nodes. Correlate clinically (fever , leukocytosis). Pre and postcontrast MR should be strongly considered to further evaluate. Case discussed with Vesna Russ at the time of this reading. Reviewed, dictated and finalized at [facility]. Impression: Prominent new erosive change centered about the T10-T11 disc space since 2024. Diagnostic considerations include discitis/osteomyelitis versus acute Schmorl's nodes. Correlate clinically (fever, leukocytosis). Pre and postcontra st MR should be strongly considered to further evaluate. Case discussed with Vesna Russ at the time of this reading.
== END 2024-11-10 12:48 | disposition home or self-care (01) ==
LOC: MICIMG 12:48
PROVIDERS: PCP Family Medicine; Visit Provider Nurse Practitioner Family
DX: M48.8X4 Other specified spondylopathies, thoracic region (principal)
CPT/HCPCS: 72128

== ENCOUNTER 2024-11-11 13:24 | Outpatient (CLI) | payer MEDICARE, OTHER, SELFPAY ==
--- OUTSIDE RECORDS SUMMARY | 2024-11-11 13:31 | XMS_ITS | Clinical Summary ---
Author Organization [facility] [place] Address [address] [place] [address] Care Team Providers Care Casting Carrier Name Role Phone Unknown, Provider Primary Care Provider Unavaila ble Source Comments [facility],non-owned Affiliates and Associated Physician Practices is amultiple site organization consisting of ambulatory clinics and hospital sitesin [place], [place], [place] and [place]. This disclosure is being madepursuant to the Care Everywhere program and may not contain all information available regarding this patient. Last updated 18.[facility] [place] Allergies Active Allergy Reactions Criticality Noted Date Comments Atorvastatin Other 06/21/2017 Atropine Other High 10/26/2011 SEVERE hypotension Other reaction(s): Decreased Blood Pressure Hydrocodone-Acetaminophen Itching Medium 09/12/2013 Sulfa Drugs Rash Medium 01/06/2014 Nausea and vomiting Medications * Be aware that medications may not be up to date on this document. Alwaysverify current medications with the patient. apixaban (ELIQUIS) 5 MG tablet Take by mouth 2 times daily Active carvedilol (COREG) 6.25 MG tablet Take 6.25 mg by mouth 2 times daily Active FLUoxetine (PROZAC) 20 MG capsule Take 30 mg by mouth once daily Active lisinopril (PRINIVIL;ZESTRI L) 5 MG tablet Take 5 mg by mouth once daily Active albuterol HFA (PROVENTIL; VENTOLIN; PROAIR) 108 (90 Base) MCG/ACT inhalerIndicatio ns:Acute bronchitis, unspecified organism Inhale 2 (two) puffs by mouth every 6 hours as needed for Wheezing or Cough 1 g 1 1 Active Social History Tobacco Use Types Packs/Day Years Used Date Smoking Tobacco: Every Day Smokeless Tobacco: Never Comments Unknown Sex and Gender Information Value Date Recorded Sex Assigned at Not on file Legal Sex Female 10:20 AM MANAGER RELOCATION Gender Identity Not on file Sexual Orientation Not on file Last Filed Vital Signs Vital Sign Reading Time Taken Comments Blood Pressure 120/80 05/28/2021 10:41 AM MANAGER RELOCATION Pulse 78 05/28/2021 10:41 AM MANAGER RELOCATION Temperature 37 C (98.6 F) 05/28/2021 10:41 AM MANAGER RELOCATION Respiratory Rate 12 05/28/2021 10:41 AM MANAGER RELOCATION Oxygen Saturation 99% 05/28/2021 10:41 AM MANAGER RELOCATION Inhaled Oxygen Concentration - - Weight 70.3 kg (155 lb) 05/28/2021 10:41 AM MANAGER RELOCATION Height 157.5 cm (5' 2 ) 05/28/2021 10:41 AM MANAGER RELOCATION Body Mass Index 28.35 05/28/2021 10:41 AM MANAGER RELOCATION Plan of Treatment Health Maintenance Due Date [...] 2007 SCREENING FOR DIABETES 05/28/2021 COVID-19 VACCINE (1 - 2023-2 5 season) 2024 DEPRESSION SCREENING 07/09/2024 INFLUENZA VACCINE (Season Ended) 2025 Respiratory Syncytial Virus (RSV) Vaccine Pt: or [...] to complete this topic MENINGOCOCCAL (Group B) VACC INE SHARED DECISION-MAKING Aged Out No longer eligibl e based on patient's age to complete this topic MENINGOCOCCAL GROUPS A/C/Y/W VACCINE Aged Out No longer eligible b ased on patient's age to complete [place] [id number] [employer] Care Teams Casting Carrier Relationship Specialty Start Date End Date Unknown, Provider PCP - General 05/27/21
--- OUTSIDE RECORDS SUMMARY | 2024-11-11 13:31 | XMS_ITS | Clinical Summary ---
Author Organization [facility] Address [address] [place] [address] Care Team Providers Care Evaluation Engineer Name Role Phone Unavailable Primary Care Provider [...]
--- OUTSIDE RECORDS SUMMARY | 2024-11-11 13:31 | XMS_ITS | Encounter Summary ---
Author Organization [facility] Address [address] [place] [address] Care Team Providers Care Pulmonologist Name Role Phone Unavailable Primary Care Provider Unavailabl e Prior Encounters Date Type Department Care Team Description 07/28/2019 Converted 13x Documents [facility] [address] [place] [address] [place] [phone] <No scans attached> 07/28/2019 Converted CPS Chart Documents [facility] [address] [place] [address] [place] [phone] <No scans attached> Plan of Treatment Not [...] MST 2 CROWN Routine 05/02/2018 12:00 AM [facility] PERIODIC ORAL EVALUATION - ESTABLISHED PATIENT [...] RECEMENT CROWN Routine 08/28/2017 1:0 0 AM [facility] 12 LIMITED ORAL EVALUATION - PROBLEM FOCUSED Routine 08/28/2017 1:00 AM MST NC X-RAY Routine 08/28/2017 1:00 AM MST ADDITIONAL X-RAY Routine 08/28/2017 1:00 AM MST SINGLE X-RAY Routine 08/28/2017 1:00 AM [facility] 12 CROWN Routine 08/28/2017 1:00 AM [facility] 20 TREATMENT OF ROOT CANAL OBSTRUCTION; [...] DO COMPOSITE FILLING Routine 5 12:00 AM [facility] Visit Diagnoses Not on file
--- OUTSIDE RECORDS SUMMARY | 2024-11-11 13:31 | XMS_ITS | Clinical Summary ---
Author Organization [facility] Address [address] [place] [address] Care Team Providers Care Radar Technician Name Role Phone Unavailable Primary Care Provider [...]
--- OUTSIDE RECORDS SUMMARY | 2024-11-11 13:31 | XMS_ITS | Clinical Summary ---
Author Organization [facility] Address [address] [address] Care Team Providers Care Doubling Machine Operator Name Role Phone Quirino Berger MD Primary Care Provider [phone] Medications ergocalciferol 1.25 MG (25962 UT) capsule Take 1 capsule (50,000 Units [...] Comments Breast Cancer Screening 1957 Pneumococcal Vaccine: 50+ Years (1 of 2 - PCV) 01/12/1976 Colorectal Cancer Screening: Annual FOBT 2006 Colorectal Cancer Screening: Colonoscopy 2006 Colorectal Cancer Screening: Sigmoidoscopy 2006 Influenza Vaccine (Season Ended) 2025 05/12/2022, 08/01/2021, 04/26/2021, Additional history exists Hepatitis B Vaccine Aged Out No longe r eligible based on patient's age to complete this topic Insurance Medicare [facility] Advance Directives Documents on File Type Date Recorded Patient Talent Buyer Expl anation Advance Care Planning 03/20/2023 1:50 PM Care Teams Doubling Machine Operator Relationship Specialty Start Date End Date Quirino Berger MD [address] [place] [address] PCP - General Family Medicine 12/29/22
[2024-11-11 14:30] LABS: Basophils Absolute Auto 0.1 K/mm3 (0.0-0.1); Basophils Percent Auto 0.8 % (0.2-1.2); Eosinophils Absolute Auto 0.1 K/mm3 (0-0.3); Eosinophils Percent Auto 1.9 % (0-4.4); Hematocrit 30.6 % (37.0-47.0); Hemoglobin 9.2 g/dL (12.0-15.0); Immature Granulocyte Absolute 0.02 K/mm3 (0.00-0.031); Immature Granulocyte Percent A 0.3 % (0-0.5); Lymphocytes Absolute Auto 0.91 K/mm3 (0.9-3.2); Lymphocytes Percent Auto 14.2 % (18.3-44.2); Mean Corpuscular HGB Conc 30.1 g/dl (32-36); Mean Corpuscular Hemoglobin 26.8 pg (26-34); Mean Corpuscular Volume 89.2 fl (80-100); Mean Platelet Volume 11.1 fl (7.4-10.4); Monocytes Absolute Auto 0.4 K/mm3 (0.1-0.6); Monocytes Percent Auto 6.5 % (2.6-8.5); Neutrophils Absolute Auto 4.9 K/mm3 (1.3-6.7); Neutrophils Percent Auto 76.3 % (45.5-73.1); Platelet Count Result 217 k/mm3 (150-375); Red Blood Count 3.43 M/mm3 (4.2-5.4); Red Cell Distribution Width 14.5 % (11.5-14.5); White Blood Count 6.4 K/mm3 (4.5-10.0)
[2024-11-11 14:48] LABS: CRP 1.2 mg/dL (<1.0)
[2024-11-11 15:01] LABS: Erythrocyte Sedimentation Rate 107 mm/hr (0-20)
== END 2024-11-11 13:25 | disposition home or self-care (01) ==
PROVIDERS: PCP Family Medicine; Visit Provider Nurse Practitioner Family
DX: Z11.9 Encounter for screening for infectious and parasitic diseases, unspecified (principal); Z79.899 Other long term (current) drug therapy
CPT/HCPCS: 36415; 85025; 85652; 86140

== ENCOUNTER 2024-12-03 20:44 | Inpatient (IN) | payer MEDICARE, OTHER, SELFPAY ==
--- NOTE | ~2024-12-03 | XR_ITS ---
Aorta XR chest 2V Ordering provider: Alessandro Leonard MD History: 69 years Female with . sob . Comparison: August 17, 2023 FINDINGS: MEDIASTINUM: The cardiac silhouette is moderately enlarged. Postoperative changes in the mediastinum. Removal of the left pacemaker in the interval. LUNGS: No pneumothorax. Opacification the left lung base seen suggestive of atelectasis versus pneumo sarah with possible effusion. Elevation of the right hemidiaphragm is highly suggestive. Prominent davion ings in the right lung base. OTHER: No free air under the diaphragm. IMPRESSION: Left basilar atelectasis versus pneumonia with possible Effusion Reviewed, dictated and finalized at location A.
--- NOTE | ~2024-12-03 | CT_ITS ---
Clinical Indication: Dyspnea CT Scan of the Chest with Contrast: Technique: Contiguous sections were acquired throughout the chest after intravenous administration of 100 cc of Omnipaque 350. Dose reduction technique was used on this scan by utilizing automated expos ure control and iterative reconstruction technique. The dose-length product (DLP) was 448.14 mGy-cm. COMPARISON: 01/16/2024 Findings: There is no evidence of any significant mediastinal, hilar or axillary lymphadenopathy. There is no f illing defect in the pulmonary arterial tree to suggest pulmonary embolus. There is no evidence of ao rtic dissection or aneurysm. No pericardial effusion. Small left pleural effusion and minimal right pleural effusion are present. There is left lower lobe atelectatic change. There is probable minimal groundglass pulmonary edema in the lungs. There is disc oid probable scarring or atelectasis at the anterior left upper lobe.. Images through the upper abdomen reveal no abnormalities. There is 4.5 x 2.4 x 4.5 cm hypodense presumed hematoma just superficial to left upper pectoralis hossein or muscle, with small bubble of air within the hematoma (axial image 38 for example). Prior L1 vertebroplasty present. Additional mild compression fracture of T10 present, age-indetermina te, but new since prior exam. Large Schmorl's node present at the superior endplate of T11. Impression: No evidence of pulmonary embolus, aortic dissection, or aortic aneurysm. Small left pleural effusion and minimal right pleural effusion, with left lower lobe atelectasis and probable minimal pulmonary edema. Correlate clinically for left lower lobe pneumonia. 4.5 x 2.4 x 4.5 cm hematoma just superficial to the left pectoralis major muscle with small bubble of air within it. Correlate for recent trauma or procedure in this region. T10 compression fracture is new from prior exam. Large Schmorl's node at the superior plate of T11 an d mild erosive change at the inferior endplate of T10 are also new. These are likely degenerative/rel ated to fracture, however osteomyelitis/discitis is a potential alternative consideration. If this la tter diagnosis is of clinical concern, then MRI with and without contrast recommended for further hilda luation. Reviewed, dictated and finalized at location . Impression: No evidence of pulmonary embolus, aortic dissection, or aortic aneurysm. Small left pleural effusion and minimal right pleural effusion, with left lower lobe atelectasis and probable minimal pulmonary edema. Correlate clinically fo r left lower lobe pneumonia. 4.5 x 2.4 x 4.5 cm hematoma just superficial to the left pectoralis major muscl e with small bubble of air within it. Correlate for recent trauma or procedure in this region. T10 compression fracture is new from prior exam. Large Schmorl's node at the mendez perior plate of T11 and mild erosive change at the inferior endplate of T10 are also new. These are likely degenerative/related to fracture, however osteomyel itis/discitis is a potential alternative consideration. If this latter diagnosi s is of clinical concern, then MRI with and without contrast recommended for fu rther evaluation.
--- NOTE | ~2024-12-03 | US_ITS ---
US abdomen limited INDICATION: Right upper quadrant pain. Transaminitis PROCEDURE: Realtime right upper abdominal ultrasound. COMPARISON: No prior studies for comparison. FINDINGS: The pancreas is normal without focal mass or pancreatic ductal dilation. Liver echotexture is normal without focal mass or intrahepatic biliary dilatation. There is normal directional flow i n the portal vein. Gallbladder is surgically absent Common bile duct measures 10 mm. No sonographic Kearney's sign. Tra ce free fluid in the right upper quadrant. IMPRESSION: 1: Status post cholecystectomy with expected prominence of the common bile duct. If there is concern for obstructing stone or mass in the duct, consider MRCP study. Reviewed, dictated and finalized at location A. IMPRESSION: 1: Status post cholecystectomy with expected prominence of the common bile duct . If there is concern for obstructing stone or mass in the duct, consider MRCP study.
--- NOTE | ~2024-12-03 | XR_ITS ---
XR chest 1V portable 12/06/2024 09:14 Indication: Shortness of breath Procedure: AP portable chest Comparison: 12/03/2024 Findings: Status post median sternotomy for CABG. Cardiomegaly. Mild interstitial edema. Focal consol idation in the left mid and lower lung are present which may represent superimposed pneumonia. Small left pleural effusion. No pneumothorax. PICC line tip in SVC. Impression: 1: Cardiomegaly with mild interstitial edema. 2: Possible superimposed pneumonia left mid and lower thorax. 3: Small left pleural effusion. Reviewed, dictated and finalized at location A. Impression: 1: Cardiomegaly with mild interstitial edema. 2: Possible superimposed pneumonia left mid and lower thorax. 3: Small left pleural effusion.
--- NOTE | ~2024-12-03 | XR_ITS ---
EXAMINATION: XR chest 1V portable DATE: 12/13/2024 13:02 INDICATION: Congestive heart failure TECHNIQUE: frontal view of the chest was obtained. COMPARISON: Chest radiograph dated 12/10/[address] dated 12/04/2024 FINDINGS: Chronic elevation the left hemidiaphragm. Persistent opacities in the left mid to lower lung zone. Ri ght lung remains clear. No pneumothorax or right pleural effusion. Small left pleural effusion cannot be excluded. Cardiomegaly. Median sternotomy wires and mediastinal surgical clips are seen, likely from prior coronary artery bypass grafting. Mitral and aortic valve repairs. Right upper extremity pe ripherally inserted central venous catheter (PICC) tip at the caudal superior vena cava. Upper lumba r vertebroplasty. IMPRESSION: 1. Unchanged elevation of left hemidiaphragm with opacity left mid to lower lung zone consistent with associated atelectasis and/or pneumonia. 2. Cardiomegaly. Reviewed, dictated and finalized at location A. IMPRESSION: 1. Unchanged elevation of left hemidiaphragm with opacity left mid to lower nitin g zone consistent with associated atelectasis and/or pneumonia. 2. Cardiomegaly.
--- NOTE | ~2024-12-03 | XR_ITS ---
XR chest 1V portable 12/10/2024 11:05 Indication: Pneumonia. Pleural effusion. Procedure: AP portable chest Comparison: Comparison to multiple prior studies sequentially, with oldest reviewed study dated 03/2024. Findings: Status post median sternotomy for CABG. Cardiomegaly. Small left effusion. There is mild in terstitial edema. There is consolidation in the left lower lobe. Elevated left diaphragm. PICC line t ip in the SVC. No pneumothorax. Impression: 1: Cardiomegaly with mild interstitial edema. 2: Left basilar airspace consolidation a represent atelectasis and/or superimposed pneumonia. Reviewed, dictated and finalized at location A. Impression: 1: Cardiomegaly with mild interstitial edema. 2: Left basilar airspace consolidation a represent atelectasis and/or superimpo sed pneumonia.
[2024-12-03 20:46] VITALS: BP 131/45; PULSE 68; RESP 18; TEMP 37.2; O2SAT 100
--- OUTSIDE RECORDS SUMMARY | 2024-12-03 20:46 | XMS_ITS | Clinical Summary ---
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
--- OUTSIDE RECORDS SUMMARY | 2024-12-03 20:46 | XMS_ITS | Clinical Summary ---
Author Organization [facility] Address [address] [place] [address] Care Team Providers Care Internet Designer Name Role Phone Unavailable Primary Care Provider [...]
--- OUTSIDE RECORDS SUMMARY | 2024-12-03 20:46 | XMS_ITS | Encounter Summary ---
Author Organization [facility] Address [address] [place] [address] Care Team Providers Care Enrobing Machine Operator Name Role Phone Unavailable Primary Care Provider Unavailabl e Prior Encounters Date Type Department Care Team Description 07/28/2019 Converted 13x Documents [facility] [address] [place] [place] [phone] <No scans attached> 07/28/2019 Converted CPS Chart Documents [facility] [address] [place] [phone] <No scans attached> Plan of Treatment Not [...] 2 ENDODONTIC THERAPY, MOLAR TOOTH (EXCLUDING FINAL YAZDANISM) Routine 08/19/2019 1:00 AM MST 2 CORE [...] MST 2 CROWN Routine 05/02/2018 12:00 AM [facility] PERIODIC ORAL EVALUATION - ESTABLISHED PATIENT Routine [...] RECEMENT CROWN Routine 08/28/2017 1:0 0 AM [facility] 12 LIMITED ORAL EVALUATION - PROBLEM FOCUSED Routine 08/28/2017 1:00 AM MST NC X-RAY Routine 08/28/2017 1:00 AM MST ADDITIONAL X-RAY Routine 08/28/2017 1:00 AM MST SINGLE X-RAY Routine 08/28/2017 1:00 AM [facility] 12 CROWN Routine 08/28/2017 1:00 AM [facility] 20 TREATMENT OF ROOT CANAL OBSTRUCTION; NON-SURGICAL ACCESS Routine 04/12/2016 12:00 AM MST 19 TREATMENT OF ROOT CANAL OBSTRUCTION; NON-SURGICAL ACCESS Routine 04/12/2016 12:00 AM MST LIMITED ORAL EVALUATION - PROBLEM FOCUSED Routine 04/12/2016 12:00 AM MST 19 ENDODONTIC THERAPY, MOLAR TOOTH (EXCLUDING FINAL YAZDANISM) Routine 04/12/2016 12:00 AM MST 20 ENDODONTIC THERAPY, PREMOLAR TOOTH (EXCLUDING FINAL YAZDANISM) Routine 04/12/2016 12:00 AM MST 20 CORE [...] 3 ENDODONTIC THERAPY, MOLAR TOOTH (EXCLUDING FINAL YAZDANISM) Routine 12/04/2014 12:00 AM MST 31 ENDODONTIC THERAPY, PREMOLAR TOOTH (EXCLUDING FINAL YAZDANISM) Routine 12/04/2014 12:00 AM MST 30 ENDODONTIC THERAPY, PREMOLAR TOOTH (EXCLUDING FINAL YAZDANISM) Routine 12/04/2014 12:00 AM MST 29 ENDODONTIC THERAPY, PREMOLAR TOOTH (EXCLUDING FINAL YAZDANISM) Routine 12/04/2014 12:00 AM MST 28 ENDODONTIC THERAPY, PREMOLAR TOOTH (EXCLUDING FINAL YAZDANISM) Routine 12/04/2014 12:00 AM MST 9 IMPLANT [...] DO COMPOSITE FILLING Routine 5 12:00 AM [facility] Visit Diagnoses Not on file
--- OUTSIDE RECORDS SUMMARY | 2024-12-03 20:46 | XMS_ITS | Clinical Summary ---
Author Organization [facility] Address [address] [place] [address] Care Team Providers Care Gripper Attacher Name Role Phone Unavailable Primary Care Provider [...] 3:08 PM CDT Height 157.5 cm (5' 2) 12/22/2021 7:39 PM CDT Body Mass Index 29.08 12/22/2021 7:39 PM CDT Plan of Treatment Health Maintenance Due Date Last Done Comments CT Colonography 1957 Colonoscopy 1957 Colorectal Cancer Screening 1957 FIT-DNA (Cologuard) 1957 FIT 1957 FOBT 1957 Sigmoidoscopy 1957 Annual Visit Topic 1958 Hepatitis C Screening 1975 Mammogram 1997 Pneumococcal Vaccine: 65+ Ye ars (1 of 4 - PCV) 2007 DTaP/Tdap/Td Vaccines (2 - T d or Tdap) 12/16/2024 12/16/2014 HIB Vaccines Aged Out No longer [...] Answer Comments Resuscitation Technique: Ventilation wit h Ambu-BagIntravenous Medications as IndicatedDefibrillation or CardioversionTransvenous or Transthoracic PacemakerExternal Pacemaker I have discussed this order with the patient or his/her surrogate and have received informed consent. Yes * Full Resuscitation Date Activated Date Inactivated Comments 12/22/2021 1:32 PM 12/22/2021 9:20 PM
--- OUTSIDE RECORDS SUMMARY | 2024-12-03 20:46 | XMS_ITS | Clinical Summary ---
Author Organization [facility] Address [address] [place] [address] Care Team Providers Care Liability Claims Manager Name Role Phone Unknown, Provider Primary Care Provider Unavaila ble Source Comments [facility],non-owned Affiliates and Associated Physician Practices is amultiple site organization consisting of ambulatory clinics and hospital sitesin [place], [place], [place] and [place]. This disclosure is being madepursuant to the Care Everywhere program and may not contain all information available regarding this patient. Last updated 18.[facility] Allergies Active Allergy Reactions Criticality Noted Date [...] on file Legal Sex Female 10:20 AM CARD CUTTER HELPER Gender Identity Not on file Sexual Orientation Not on file Last Filed Vital Signs Vital Sign Reading Time Taken Comments Blood Pressure 120/80 05/28/2021 10:41 AM CARD CUTTER HELPER Pulse 78 05/28/2021 10:41 AM CARD CUTTER HELPER Temperature 37 C (98.6 F) 05/28/2021 10:41 AM CARD CUTTER HELPER Respiratory Rate 12 05/28/2021 10:41 AM CARD CUTTER HELPER Oxygen Saturation 99% 05/28/2021 10:41 AM CARD CUTTER HELPER Inhaled Oxygen Concentration - - Weight 70.3 kg (155 lb) 05/28/2021 10:41 AM CARD CUTTER HELPER Height 157.5 cm (5' 2) 05/28/2021 10:41 AM CARD CUTTER HELPER Body Mass Index 28.35 05/28/2021 10:41 AM CARD CUTTER HELPER Plan of Treatment Health Maintenance Due Date [...] patient's age to complete [place] [address] [employer] Care Teams Liability Claims Manager Relationship Specialty Start Date End Date Unknown, Provider PCP - General 05/27/21
[2024-12-03 21:00] VITALS: O2SAT 100
--- NOTE | 2024-12-03 21:08 | ECG_ITS ---
Test Date: 2024-12-03 21:14:01 Measurements Intervals Bivins Rate: 66 P: 0 ND: 0 QRS: -35 QRSD: 130 T: 87 QT: 472 QTc: 495 Interpretive Statements ATRIAL FIBRILLATION INFERIOR MYOCARDIAL INFARCTION , PROBABLY OLD [40+ ms Q WAVE AND/OR ST/T ABNORMALITY IN II/aVF] ANTEROLATERAL MYOCARDIAL INFARCTION , OF INDETERMINATE AGE [40+ ms Q WAVE IN I/aVL/V3-V6] No previous ECG available for comparison Electronically Signed On 12-04-2024 15:20:58 CDT by Lyle Sanchez M.D.
--- NOTE | 2024-12-03 21:24 | PC.NURSE ---
Triage tech attempted to draw pt blood at this time. pt has a PICC line due to being a hard stick and tech was unsuccessful with butterfly. Pt states she is receiving antibiotics through PICC line for her blood infection.
[2024-12-03 23:52] VITALS: BP 127/68; PULSE 60; RESP 13; O2SAT 96; O2SAT 98
[2024-12-04] VITALS (53 sets, daily range): BP systolic 112–157; BP diastolic 54–87; PULSE 53–90; RESP 13–30; TEMP 36.6; O2SAT 86–100
--- OUTSIDE RECORDS SUMMARY | 2024-12-04 | XMS_ITS | Clinical Summary ---
Author Organization [facility] Address [address] [place] [address] Care Team Providers Care Pipe Stem Aligner Name Role Phone Unavailable Primary Care Provider [...]
--- OUTSIDE RECORDS SUMMARY | 2024-12-04 | XMS_ITS | Clinical Summary ---
Author Organization [facility] Facility Address [address] [address] Care Team Providers Care Cso Name Role Phone Quirino Berger MD Primary Care Provider [phone] Medications ergocalciferol 1.25 MG (59111 UT) capsule Take 1 capsule (50,000 Units [...] age to complete this topic Insurance Medicare [facility] Advance Directives Documents on File Type Date Recorded Patient Central Melt Specialist Expl anation Advance Care Planning 03/20/2023 1:50 PM Care Teams Cso Relationship Specialty Start Date End Date Quirino Berger MD [address] [place] [address] PCP - General Family Medicine 12/29/22
--- OUTSIDE RECORDS SUMMARY | 2024-12-04 | XMS_ITS | Encounter Summary ---
Author Organization [facility] Address [address] [place] [address] Care Team Providers Care Attending Ambulatory Care Name Role Phone Unavailable Primary Care Provider Unavailabl e Prior Encounters Date Type Department Care Team Description 07/28/2019 Converted 13x Documents [facility] [address] [place] [place] [phone] <No scans attached> 07/28/2019 Converted CPS Chart Documents [facility] [address] [place] [phone] <No scans attached> Plan of Treatment Not [...] 2 ENDODONTIC THERAPY, MOLAR TOOTH (EXCLUDING FINAL EVANGELICAL) Routine 08/19/2019 1:00 AM MST 2 CORE [...] MST 2 CROWN Routine 05/02/2018 12:00 AM [facility] PERIODIC ORAL EVALUATION - ESTABLISHED PATIENT Routine [...] RECEMENT CROWN Routine 08/28/2017 1:0 0 AM [facility] 12 LIMITED ORAL EVALUATION - PROBLEM FOCUSED Routine 08/28/2017 1:00 AM MST NC X-RAY Routine 08/28/2017 1:00 AM MST ADDITIONAL X-RAY Routine 08/28/2017 1:00 AM MST SINGLE X-RAY Routine 08/28/2017 1:00 AM [facility] 12 CROWN Routine 08/28/2017 1:00 AM [facility] 20 TREATMENT OF ROOT CANAL OBSTRUCTION; NON-SURGICAL ACCESS Routine 04/12/2016 12:00 AM MST 19 TREATMENT OF ROOT CANAL OBSTRUCTION; NON-SURGICAL ACCESS Routine 04/12/2016 12:00 AM MST LIMITED ORAL EVALUATION - PROBLEM FOCUSED Routine 04/12/2016 12:00 AM MST 19 ENDODONTIC THERAPY, MOLAR TOOTH (EXCLUDING FINAL EVANGELICAL) Routine 04/12/2016 12:00 AM MST 20 ENDODONTIC THERAPY, PREMOLAR TOOTH (EXCLUDING FINAL EVANGELICAL) Routine 04/12/2016 12:00 AM MST 20 CORE [...] 3 ENDODONTIC THERAPY, MOLAR TOOTH (EXCLUDING FINAL EVANGELICAL) Routine 12/04/2014 12:00 AM MST 31 ENDODONTIC THERAPY, PREMOLAR TOOTH (EXCLUDING FINAL EVANGELICAL) Routine 12/04/2014 12:00 AM MST 30 ENDODONTIC THERAPY, PREMOLAR TOOTH (EXCLUDING FINAL EVANGELICAL) Routine 12/04/2014 12:00 AM MST 29 ENDODONTIC THERAPY, PREMOLAR TOOTH (EXCLUDING FINAL EVANGELICAL) Routine 12/04/2014 12:00 AM MST 28 ENDODONTIC THERAPY, PREMOLAR TOOTH (EXCLUDING FINAL EVANGELICAL) Routine 12/04/2014 12:00 AM MST 9 IMPLANT [...] DO COMPOSITE FILLING Routine 5 12:00 AM [facility] Visit Diagnoses Not on file
--- OUTSIDE RECORDS SUMMARY | 2024-12-04 | XMS_ITS | Encounter Summary ---
Author Organization [facility] Healthcare Address [address] [place] [address] Care Team Providers Care Loader Magazine Grinder Name Role Phone Quirino Berger MD Primary Care Provider Frantz Lewis RN Unavailable [phone] Blake Dee MD Unavailable Encounter Details Date Type Department Care Team (Late st Contact Info) Description 10/22/2024 Results Follow-Up [facility] Medical Group Nephrology at [address] [place] [address] Sukhwinder Bruner MD [address] [facility] [address] [address] Basic metabolic panel, Haptoglobin, Hemoglobin and hematocrit, Additional followed-up results: 3 Social History Tobacco Use Types Packs/Day Years [...] week 11/28/2021 How often do you attend [facility] or uatsdin services? More than 4 times per year 11/28/2021 Do you belong to any clubs o r organizations such as anglican groups, unions, fraternal or athletic groups, or school groups? Yes 11/28/2021 How often do you attend meet ings of the clubs or organizations you belong to? More than 4 times per year 11/28/2021 Are you , , di vorced, , never , or living with a partner? 11/28/2021 AUDIT-C Answer Date Recorded Q1: How often do you have a drink containing alc ohol? Never 09/15/2024 Average Number of Drinks Not on file 025 Frequency of Binge Drinking Not on file 09/06 Overall Financial Resource Strain (CARDIA) Answe r Date Recorded How hard is it for you to pa y for the very basics like food, housing, medical care, and heating? Not very hard 11/28/2021 PHQ-2 Answer Date Recorded PHQ-2 Total Score (If total score is 3 or more points, staff should administer the PHQ-9) 0 08/21/2024 [facility] - Occupational [...] things needed for daily living? 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 Not on f ile Not on file documented as of this encounter Ordered Prescriptions Prescription Sig Dispense Quantity Refills Last Filled Start Date End Date ferrous sulfate 325 mg (65 mg of elemental iron) tabletIndications: Stage 3b chronic kidney disease (HCC),Anemia in stage 3b chronic kidney disease (HCC) Take 1 tablet (325 mg total) by mouth daily with breakfast 10/23/2024 documented in this encounter Plan of Treatment Not on file documented as of this encounter Results * (ABNORMAL) CBC with auto differential (11/10/2024 2:46 PM CDT) [facility] WBC 5.85 3.80 - 9.90 K/cumm Hgb 9.1(L) 11.9 - 15.5 g/dL [facility] Hct 30.9(L) 35.6 - 45.5 % [facility] Plt 225 150 - 400 K/cumm [facility] MPV 10.9 9.1 - 12.3 fL [facility] RBC 3.41(L) 3.90 - 5.20 M/cumm [facility] MCV 90.6 81.3 - 96.4 fL [facility] MCH 26.7(L) 27.1 - 33.3 pg [facility] MCHC 29.4(L) 32.3 - 35.7 g/dL [facility] RDW CV 14.5 11.1 - 14.9 % [facility] RDW SD 47.8 35.7 - 48.1 fL [facility] NRBC abs 0.00 0.00 - 0.01 K/cumm [facility] Blood 11/10/2024 2:46 PM CDT 11/10/2024 9:09 PM CDT Sukhwinder Bruner MD LAB BLOOD ORDERABLES Final Result JULIANA RODRIGUEZ [address] Department [place] [address] * (ABNORMAL) Iron profile w/ IBC (11/10/2024 2:46 PM CDT) Iron 28(L) 35 - 145 mcg/dl TIBC 300 250 - 400 mcg/dL [facility] Transferrin saturation 9(L) 20 - 50 % [facility] Blood 11/10/2024 2:46 PM CDT 11/10/2024 9:09 PM CDT Sukhwinder Bruner MD LAB BLOOD ORDERABLES Final Result Performing Organization Address City/[facility] Co de Phone Number [facility] [address] [place] [address] * Ferritin (11/10/2024 2:46 PM CDT) Ferritin 113 15 - 150 ng/mL Blood 11/10/2024 2:46 PM CDT 11/10/2024 9:09 PM CDT Sukhwinder Bruner MD LAB BLOOD ORDERABLES Final Result Performing Organization Address [facility] de Phone Number [facility] [address] [place] [address] documented in this encounter Visit Diagnoses Diagnosis Anemia in stage 3b chronic kidney disease (HCC)- Primary Stage 3b chronic kidney disease (HCC) documented in this encounter Care Teams Loader Magazine Grinder Relationship Specialty Start Date End Date Quirino Berger MD [address] [place] [address] PCP - General Family Medicine 08/01/21 Frantz Lewis RN [address] [place] [address] [address] [place] [address] Pediatric Hospitalist 08/24/23 Blake Dee MD [address] [facility] [address] [place] [address] Consulting Physician Cardiology 05/28/24 documented as of this encounter
--- OUTSIDE RECORDS SUMMARY | 2024-12-04 | XMS_ITS | Clinical Summary ---
Author Organization [facility] Address [address] [place] [address] Care Team Providers Care Glass Grinder Name Role Phone Unavailable Primary Care Provider [...]
--- OUTSIDE RECORDS SUMMARY | 2024-12-04 | XMS_ITS | Encounter Summary ---
Author Organization [facility] Healthcare Address [address] [place] [address] Care Team Providers Care Policy Manager Name Role Phone Quirino Berger MD Primary Care Provider Frantz Lewis RN Unavailable [phone] Blake Dee MD Unavailable Encounter Details Date Type Department Care Team (Late st Contact Info) Description 11/11/2024 Results Follow-Up [facility] Medical Group Primary Care at [address] [address] Quirino Berger MD [address] [place] [address] [address] [place] [address] Thyroid Function [place], Vitamin D 25 hydroxy, Lipid panel, Additional followed-up results: 4 Social History Tobacco Use Types Packs/Day Years [...] week 11/28/2021 How often do you attend [facility] or hinduism services? More than 4 times per year 11/28/2021 Do you belong to any clubs o r organizations such as worship groups, unions, fraternal or athletic groups, or [...] points, staff should administer the PHQ-9) 0 11/14/2024 [facility] - [...] PHQ-9 Answer Date Recorded PHQ-9 Total Score 6 11/14/2024 Personal Safety Answer Date Recorded Have you ever been in or are you currently in a harmful physical or emotional relationship or is someone making you feel afraid or unsafe? 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
--- OUTSIDE RECORDS SUMMARY | 2024-12-04 | XMS_ITS | Encounter Summary ---
Author Organization [facility] Healthcare Address [address] [place] [address] Care Team Providers Care Racehorse Trainer Name Role Phone Quirino Berger MD Primary Care Provider Frantz Lewis RN Unavailable [phone] Blake Dee MD Unavailable Encounter Details Date Type Department Care Team (Late st Contact Info) Description 12/03/2024 Documentation [facility] [address] [place] [id number] Abigail Rodriguez arden Social History Tobacco Use Types Packs/Day Years Used Date Smoking Tobacco: Former Cigarettes 1 48.4 1 974 - 11/22/2021 Passive Smoke Exposure: Past Smokeless Tobacco: Never Comments:now down to 5 cigs/ day [facility] Utilities Answer Date Recorded In the past 12 months has [employer], gas, oil, or water [employer] threatened to shut off services in your home? No 11/27/2024 Social Connection and Isolat ion Panel [NHANES] Answer Date Recorded In a typical week, how many times do you talk on the phone with family, friends, or neighbors? More than three times a week 11/27/2024 How often do you get togethe r with friends or relatives? More than three times a week 11/27/2024 How often do you attend [facility] or anglican services? Never 11/27/2024 Do you belong to any clubs o r organizations such as bahai groups, unions, fraternal or athletic groups, or school groups? No 11/27/2024 How often do you attend meet ings of the clubs or organizations you belong to? Never 11/27/2024 Are you , , di vorced, , never , or living with a partner? 11/27/2024 AUDIT-C Answer Date Recorded Q1: How often do you have a drink containing alcohol? Never 11/25/2024 Q2: How many drinks containi ng alcohol do you have on a typical day when you are drinking? Patient does not drink Q3: How often do you have si x or more drinks on one occasion? Never 11/25/2024 Overall Financial Resource Strain (CARDIA) Answe r Date Recorded How hard is it for you to pa y for the very basics like food, housing, medical care, and heating? Not hard at all 11/27/2024 PHQ-2 Answer Date Recorded PHQ-2 Total Score 0 11/27/2024 [facility]at ional [facility] - Occupational Stress Questionnaire Answer [...] exercise at this level? 30 min 08/01/2021 Hunger Vital Sign Answer Date Recorded Within the past 12 months, y ou worried that your food would run out before you got the money to buy more. Never true 11/28/19 25 Within the past 12 months, t he food you bought just didn't last and you didn't have money to get more. Never true 11/27/2024 PRAPARE - Transportation Answer Date Re corded In the past 12 months, has l ack of transportation kept you from medical appointments or from getting medications? No 11/07 In the past 12 months, has l ack of transportation kept you from meetings, work, or from getting things needed for daily living? No 11/27/2024 PHQ-9 Answer Date Recorded PHQ-9 Total Score 6 11/14/2024 Housing Stability Vital Sign Answer Suresh e Recorded In the last 12 months, was t here a time when you were not able to pay the mortgage or rent on time? No 11/27/2024 In the past 12 months, how m any times have you moved where you were living? 0 11/27/2024 At any time in the past 12 m [facility], were you homeless or living in a chcf (including now)? No 11/27/2024 Personal Safety Answer Date Recorded Have you ever been in or are you currently in a harmful physical or emotional relationship or is someone making you feel afraid or unsafe? 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 Infectious Diseases ID OPAT Progress/Monitoring Note General Info General Information OPAT Program: Non HAIR ID Team: Gen ID 4 Responsible ID Provider: Aguila Antibiotic Indication: Bloodstream infection (BSI), Device infection (ie CIED, port, SODA TESTER shunt), Vertebral OM/Epidural abscess Antibiotics start date: 11/25/24 Antibiotics start date reason: Date of pacer removal Firm stop: No Antibiotics anticipated stop date: 01/06/25 Pathogens: enterococcus faecalis Retained Infected Hardware : yes Infected Hardware Details: mechanical heart valve, graft Fax Labs To: [facility] ([phone]) Call For a Change in Clinical Status, Critical/Abnormal Results, or Order Verification: [facility] ([phone]) Imaging Recommended Before Follow-up: No imaging Antimicrobials Antimicrobials Antimicrobials A-L: Ceftriaxone, Ampicillin Antimicrobial Routes Ampicillin Route: Infusion Ceftriaxone Route: Infusion Parenteral Antimicrobials Ampicillin Dose: 2 g Ampicillin Frequency: Every 6 hours Ampicillin Start Date: 11/25/24 Ampicillin More Info: 2g IV q6h for CrCl 10-50 Ceftriaxone Dose: 2 g Ceftriaxone Frequency: Every 12 hours Ceftriaxone Start Date: 11/25/24 Care Coordination Care Coordination OPAT Start Date: 12/02/24 Discharge Location: SNF/Rehab SNF/Rehab Location: [facility] ([phone]) Access: PICC Internal Labs OPAT Internal Labs (Last 10 results in 3 years) Date/Time WBC ANC EOS CBC CREATININE AST ALT VANCOMYCIN SED RATE CRP 12/01/242123 -- -- -- -- 1.70 -- -- -- -- -- 12/01/242123 5.09 -- -- -- -- -- -- -- -- -- 12/01/242123 -- -- -- -- -- 53 40 -- -- -- 11/30/242115 -- -- -- -- 1.59 -- -- -- -- -- 11/29/24 2218 -- -- -- -- 1.63 -- -- -- -- -- 11/29/24 221 5.79 -- -- -- -- -- -- -- -- -- 11/29/24 0925 7.02 -- -- -- -- -- -- -- -- -- 11/29/24 0925 -- -- -- -- 1.61 -- -- -- -- -- 11/28/247 -- -- -- -- 1.52 -- -- -- -- -- 11/27/242030 -- -- -- -- 1.70 -- -- -- -- -- External Labs Monitoring/Events Comments OPAT Comments Patient was discharged yesterday. Labs stable. Time Spent Time Spent Time Spent: 10 Time Spent Role : Pharmacist * Research Note - Abigail Rodriguez RPh - 12/03/2024 11:36 AM CDT . documented in this encounter Plan of Treatment Not on file documented as of this encounter Visit Diagnoses Not on filedocumented in this encounter Care Teams Racehorse Trainer Relationship Specialty Start Date End Date Quirino Berger MD [address] [place] [address] PCP - General Family Medicine 08/01/21 Frantz Lewis RN [address] [place] [address] [address] [place] [address] Education Adviser 08/24/23 Blake Dee MD [address] [facility] [address] [place] [address] Consulting Physician Cardiology 05/28/24 documented as of this encounter
--- OUTSIDE RECORDS SUMMARY | 2024-12-04 | XMS_ITS | Encounter Summary ---
Author Organization [facility] Healthcare Address [address] [place] [address] Care Team Providers Care Building Rental Superintendent Name Role Phone Quirino Berger MD Primary Care Provider [phone] Vic Sal MD Unavailable Anupam Cabrera MD Unavailable [phone] Vic Sal MD Unavailable Frantz Lewis RN Unavailable [phone] Blake Dee MD Unavailable Reason for Visit * Reason Onset Date Comments Scheduling Appointments 08/29/2021 Reminder call for DEXA and Mammogram. Encounter Details Date Type Department Care Team (Late st Contact Info) Description 08/29/2021 Telephone [facility] [address] [place] [address] [address] Scheduling Appointments (Reminder call for DEXA and Mammogram. 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 Not on f ile Not on file documented as of this encounter Plan of Treatment Not on file documented as of this encounter Visit Diagnoses Not on filedocumented in this encounter Additional Health Concerns Infection Onset Date Last Indicated Resolved Time COVID: Suspected 11/13/2023 11/13/2023 11/13/2023 1:38 PM CDT documented as of this encounter Care Teams Building Rental Superintendent Relationship Specialty Start Date End Date Quirino Berger MD [address] [place] [address] PCP - General Family Medicine 08/01/21 Vic Sal MD [address] [place] [address] Consulting Physician Cardiology 08/01/21 05/27/24 Anupam Cabrera MD [address] [place] [address] Surgeon Anesthesiology 08/01/21 08/21/22 Vic Sal MD [address] [place] [address] Referring Physician Cardiology 11/08/21 05/27/24 Frantz Lewis, RN [address] [place] [address] [address] [place] [address] Capacity Manager 08/24/23 Blake Dee MD [address] [facility] [address] [place] [address] Consulting Physician Cardiology 05/28/24 documented as of this encounter
--- OUTSIDE RECORDS SUMMARY | 2024-12-04 | XMS_ITS | Encounter Summary ---
Author Organization [facility] Healthcare Address [address] [place] [address] Care Team Providers Care Order Taker Name Role Phone Quirino Berger MD Primary Care Provider Frantz Lewis RN Unavailable [phone] Blake Dee MD Unavailable Reason for Visit * Reason Onset Date Comments LINDA Questions 11/25/2024 Encounter Details Date Type Department Care Team (Late st Contact Info) Description 11/25/2024 Telephone [facility] Medical Group Primary Care at [address] [address] Quirino Berger MD [address] [place] [address] [address] [place] [address] LINDA Questions Social History Tobacco Use Types Packs/Day Years Used Date Smoking Tobacco: Former Cigarettes 1 48.4 1 974 - 11/22/2021 Passive Smoke Exposure: Past Smokeless Tobacco: Never Comments:now down to 5 cigs/ day [facility] Utilities Answer Date Recorded In the past 12 months has [employer], gas, oil, or water company threatened to shut off services in your [...] week 11/27/2024 How often do you attend chur ch or synagogue services? Never 11/27/2024 Do you belong to any clubs o r organizations such as moravian groups, unions, fraternal or athletic groups, or [...] Date Recorded PHQ-2 Total Score 0 11/27/2024 [facility] - Occupational Stress [...] any time in the past 12 m [facility], were you homeless or living in a halfway (including now)? No 11/27/2024 Personal Safety Answer Date Recorded Have you ever been in or are you currently in a harmful physical or emotional relationship or is someone making you feel afraid or unsafe? 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 Never 11/25/2024 2:39 PM Leeroy Allison, R N Q2: How many drinks containing alcohol do you have on a typical day when you are drinking? Patient does not drink 11/25/2024 2:39 PM Leeroy Allison, RN Q3: How often do you have six or more drinks on one occasion? Never 11/25/2024 2:39 PM Leeroy Allison, R N documented as of this encounter Miscellaneous Notes * Telephone Encounter - Preston Brargt Riddle - 11/25/2024 1:50 PM CDT LINDA Questions (Message from [facility] Has patient been discharged at time of call? No Will patient be transferred to another inpatient facility (e.g. senior living, inpatient rehab, etc.)? No The patient was not discharged at the time of the call. Patient will need to be contacted after discharge to complete remaining questions. Date Admitted: 11/13/24 Tentative Discharge Date: 11/26/24 Facility Admitted To: [facility] Date of LINDA Appointment: 12/02/24 Additional Comments: Patient was treated for bacteremia, will likely be discharged with IV antibiotics. Does message need to be routed? Yes-Action Needed documented in this encounter Plan of Treatment Not on file documented as of this encounter Visit Diagnoses Not on filedocumented in this encounter Care Teams Order Taker Relationship Specialty Start Date End Date Quirino Berger MD [address] [place] [address] PCP - General Family Medicine 08/01/21 Frantz Lewis, MARIA DE JESUS [address] [place] [address] [address] [place] [address] Hris Administrator 08/24/23 Blake Dee MD [address] [facility] [address] [place] [address] Consulting Physician Cardiology 05/28/24 documented as of this encounter
--- OUTSIDE RECORDS SUMMARY | 2024-12-04 | XMS_ITS | Encounter Summary ---
Author Organization [facility] Address [address] [place] [address] Phone Care Team Providers Care Baton Twirler Name Role Phone Quirino Berger MD Primary Care Provider Frantz Lewis RN Unavailable [phone] Blake Dee MD Unavailable Encounter Details Date Type Department Care Team (Late st Contact Info) Description 11/27/2024 Telephone [facility] Cardiology [address] [facility] [address]th [place] [address] [place] [address] Sameer La MD PhD [address] [facility] [address] [place] [address] Social History Tobacco Use Types Packs/Day Years Used Date Smoking Tobacco: Former Cigarettes 1 48.4 1 974 - 11/22/2021 Passive Smoke Exposure: Past Smokeless Tobacco: Never Comments:now down to 5 cigs/ day [facility] Utilities Answer Date Recorded In the past 12 months has [employer], gas, oil, or water company threatened to [...] often do you attend chur ch or hoahaoism services? Never 11/27/2024 Do you belong to any clubs o r organizations such as amish groups, unions, fraternal or athletic groups, or [...] Date Recorded PHQ-2 Total Score 0 11/27/2024 [facility] - [...] any time in the past 12 m [facility], were you homeless or living in a senior living (including now)? No 11/27/2024 Personal Safety Answer Date Recorded Have you ever been in or are you currently in a harmful physical or emotional relationship or is someone making you feel afraid or unsafe? 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 * Telephone Encounter - Kael Jeri Darlin - 11/27/2024 8:03 AM CDT ----- Message from Devin Day MD sent at 11/26/2024 9:42 AM CDT ----- Hi, I am the liquid loader on the inpatient EP service. This patient was seen by Dr. Frantz La as a consult. Would you be able to help schedule a TTE in 3 months followed by a clinic appointment with Dr. La? At this appointment, he will determine if he would like to pursue THREE DIMENSIONAL ART INSTRUCTOR-P reimplantation (removed during this admission due to infection). Thanks! documented in this encounter Plan of Treatment Not on file documented as of this encounter Visit Diagnoses Not on filedocumented in this encounter Care Teams Baton Twirler Relationship Specialty Start Date End Date Quirino Berger MD [address] [place] [address] PCP - General Family Medicine 08/01/21 Frantz Lewis, MARIA DE JESUS [address] [place] [address] [address] [place] [address] Stain Wiper 08/24/23 Blake Dee MD [address] [facility] [address] [place] [address] Consulting Physician Cardiology 05/28/24 documented as of this encounter
--- OUTSIDE RECORDS SUMMARY | 2024-12-04 00:01 | XMS_ITS | Encounter Summary ---
Author Organization [facility] Healthcare Address [address] [place] [address] Care Team Providers Care Apparel Sales Leader Name Role Phone Quirino Berger MD Primary Care Provider [phone] Frantz Lewis RN Unavailable [phone] Blake Dee MD Unavailable Reason for Referral * Consultation (Routine) - Authorized Specialty Diagnoses / Procedures Referred By Contac t Referred To Contact Infectious Diseases Diagnoses Bacteremia due to Enterococcus Cielo Soler NP [address] [place] [address] Phone: tel: fax: [facility] (All Locations) Referral ID Status Reason Start Date Expiration Date Visits Requested Visits Authorized [id number] Authorized Specialty Services Required HAIR IP to OP Coverage Verification Completed 5 12/17/2025 1 1 Question Answer Please select the performing region: [facility] (All Locations) [167] # of visits: 1 Reason for Visit * Reason Comments Back Pain * Auth/Cert (Routine) Specialty Diagnoses / Procedures Referred By Contac t Referred To Contact Diagnoses Chronic midline thoracic back pain Procedures NA Referral ID Status Reason Start Date Expiration Date Visits Re quested Visits Authorized [id number] 1 1 Encounter Details Date Type Department Care Team (Latest Contact Info) Description 11/13/2024 12:47 PM CDT - 12/02/2024 1:42 PM CDT Hospital Encounter [facility] [address] [place] [address] Javier Bryant MD [address] [place] [address] Ranulfo Gentile MD [address] [place] [address] Kandis Spencer MD [address] [place] [address] Baltazar Manzano MD [address] [place] [address] Brittney Martinez MD [address] [place] [address] Chronic midline thoracic back pain (Primary Dx); Bacteremia due to Enterococcus Discharge Disposition: Discharge to SNF Social History Tobacco Use Types Packs/Day Years Used Date Smoking Tobacco: Former Cigarettes 1 48.4 1 974 - 11/22/2021 Passive Smoke Exposure: Past Smokeless Tobacco: Never Tobacco Cessation:Counseling Given: Not Answered Comments:now down to 5 cigs/day [employer] Utilities Answer Date Recorded In the past 12 months has [employer], [employer], or water [email or web address] threatened to shut off services in your [...] 11/27/2024 How often do you attend chur or amish services? Never 11/27/2024 Do you belong to any clubs o r organizations such as evangelical groups, unions, fraternal or athletic groups, or [...] Date Recorded PHQ-2 Total Score 0 11/27/2024 [facility] of Occupat ional [facility] - Occupational Stress Questionnaire Answer Date Recorded [...] any time in the past 12 m onths, were you homeless or living in a senior care (including now)? No 11/27/2024 Personal Safety Answer Date Recorded Have you ever been in or are you currently in a harmful physical or emotional relationship or is someone making you feel afraid or unsafe? 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 Not on file Not on f ile Not on file documented as of this encounter Last Filed Vital Signs Vital Sign Reading Time Taken Comments Blood Pressure 146/96 12/02/2024 7:40 AM CDT Pulse 81 12/02/2024 7:40 AM CDT Temperature 36.7 C (98.1 F) 12/02/2024 7:40 AM CDT Respiratory Rate 16 12/02/2024 7:40 AM CDT Oxygen Saturation 94% 12/02/2024 7:40 AM CDT Inhaled Oxygen Concentration - - Weight 63.1 kg (139 lb 1.8 oz) 11/13/2024 6:45 P M CDT Height 157.5 cm (5' 2) 11/13/2024 6:45 PM CDT Body Mass Index 25.44 11/13/2024 6:45 PM CDT documented in this encounter Functional Status * Audit-C Score Answer Date of Assessment Author 0 11/25/2024 2:39 PM CDT Roderick Patel, RN * Question Answer Date of Assessment Author Q1: How often do you have a drink containing alcohol? Never 11/25/2024 2:39 PM CDT Leeroy Patel, R N Q2: How many drinks containing alcohol do you have on a typical day when you are drinking? Patient does not drink 11/25/2024 2:39 PM CDT Leeroy Patel, RN Q3: How often do you have six or more drinks on one occasion? 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 woman with PMH of CAD s/p 1V CABG (SVG to RCA 2021), AVR (inspiris resilia, 2018), pacemaker ([employer] BiV, 2016), LBBB, pHTN, pAF on warfarin (goal 2-3), mitral regurgitation, CHF, CKD3, HLD, and TUD who presented to ED per request of neurosurgery w/ c/f thoracic diskitis /osteomyelitis. Hospital Course: #Enterococci Bacteremia 1/ BCx returned positive for Enterococci fecaelis within 16 hrs on 11/13/24. Pt did not had any fevers but c/f possible osteomyelitis as described below. ID was consulted, and began Ampicillin and ceftriaxone (11/14-). Patient had x2 negative blood cultures on 11/15 and 11/16, after which daily blood cultures were stopped. - 11/13 TTE for source evaluation was unremarkable, 11/19 NEVAEH notable for tiny mobile linear echodensity on device lead in the right atrium c/f lead-related infective endocarditis. - CT surgery removed pacemaker on 11/25 with no complications, replacement pacemaker not needed per IP. - Patient will continue with IV antibiotics at SNF for 6 weeks (starting day to be counted from theday of pacemaker removal - 11/25 until 01/06). ESR and CRP should be measured 3 and 6 weeks into treatment outpatient, or 12/05 and 12/26. - Antibiotic regimen: Ceftriaxone 2g q 12 for 6 weeks (until 12/26) and Ampicillin 8g/24h (until 12/26) - patient has PICC line on right arm #Thoracic back pain c/f osteomyelitis Pt has had worsening thoracic back pain since Aug 2024, worsening with movement. Most recent CT thoracic spine showed new osteolysis, cortical irregularities, subcortical sclerosis and distention ofthe intervertebral disc at T10-T11, concerning for diskitis of the osteophyte complex. Total spineMRI on 11/17 was compatible with pacemaker, and showed cortical erosion and paraspinal soft tissue edema c/w osteomyelitis. - Biopsy results showed no growth, path report with osteomyelitis and possible degenerative lesions. 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 - ID continued to follow the patient throughout their course, neurosurgery consulted and recommended nonsurgical treatment. - Pain managed with Tylenol and Robaxin scheduled, oxycodone 7.5 mg oral Q4 PRN for breakthrough pain. Lidocaine patch added 11/20 for mild L sided MSK back pain. Gabapentin was added 11/22 and oxy wasupped from 5 to 7.5 as patient's pain worsened, pain was better managed on new regiment. #AVR, MR #pAF on Warfarin at home - Pt switched to heparin ggt from Warfarin for biopsy and pacemaker removal from 11/11 to 11/25. 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 F/u serotonin assay negative - Transitioned to warfarin on 11/26 with INR on discharge 2.09 (coumadin dose 4mg/day, lovenox discontinued on 12/02) - Patient warfarin home dose before admission: 3mg 4 times a week and 1.5 mg three times a week. Required higher dose during this admission due to interaction between warfarin and Ceftriaxone, followed by pharmacy that oriented progressive increase on coumadin dose up to 4mg d/ay (dose she is receiving today) - Recommended INR at arrival and repeat every 3 days due to recent increase in warfarin dose. #HFpEF - Home use of coreg 12.5 BID and spironolactone 25mg/day - At admission due to infection home coreg and lyle were held as patient's blood pressures were low to 90s, and she presented worsening of renal function - On 12/01 coreg was resumed as she presented higher levels of BP - To date spironolactone is on hold due to her creat increase (Baseline around 1.2 to 1.4, 11/21: 1.70) This medicaiton will need to resumed as soon as kidney function improves. #CAD s/p RCA CABG #HLD - Home crestor 40 daily, continue #Mood disorder - Home sertraline 100 daily, trazodone 50 nightly, continue #GERD - Home famotidine, continue #COPD Home regimen: albuterol, breztri, flonase - Flonase, trelegy ellipta - PRN albuterol #Fall on 12/01 Patient had a fall on 12/01 while taking a shower at 9:20. On coumadin 4mg/daily and full dose of lovenox. Presence of hematoma em right forehead.No loss of consciousness, nausea or vomit after event. Patient reports she lost her balance - STAT CT head and total spine - without any acute intracranial findings of changes in her spine - Neurocheck q6 for 24h, patient stable - Repeated CT on 12/01 at 19:33 due to nausea and vomit, with no acute intracranial hemorrhage, large territory infarct, or midline shift. - To note: patient has history of prior episodes of vomit before the fall requiring zofran. - On 12/02: new episode of nausea and vomit, repeated EKG (no changes when compared to baseline after pacemaker removal), patient stable after emesis episode - Discussed with team and patient can be discharged to complete therapy at SNF. Active Issues Requiring Follow-up: - Continue with IV antibiotics at SNF for 6 weeks (starting day to be counted from the day of pacemaker removal - 11/25 until 01/06). ESR and CRP should be measured 3 and 6 weeks into treatment outpatient, or 12/05 and 12/26. Antibiotic regimen: Ceftriaxone 2g q 12 for 6 weeks (until 12/26) and Ampicillin 8g/24h (until 12/26) - Warfarin increased to 4mg on 11/30/24, goal or INR 2-3, needs following up at arrival and every 3days due to recent increase in dose - Resume spironolactone when renal function improves. Test Results Pending at Discharge: Pending Labs Order Current Status CRP (acute phase) In process Erythrocyte sedimentation rate In process Hepatic function panel In process Hepatic function panel In process Hepatic function panel In process Mycobacteriology (AFB) culture and acid-fast stain Tissue Heart In process Mycobacteriology (AFB) culture and acid-fast stain Tissue Heart In process Mycobacteriology (AFB) culture and acid-fast stain Tissue Heart In process Mycobacteriology (AFB) culture and acid-fast stain Tissue Heart In process Mycology (fungal) culture Tissue Heart In process Mycology (fungal) culture Tissue Heart In process Mycology (fungal) culture Tissue Heart In process Protime-INR In process Protime-INR In process Protime-INR In process Protime-INR In process Protime-INR In process Protime-INR In process Protime-INR In process aPTT In process aPTT In process aPTT In process aPTT In process aPTT In process Mycobacteriology (AFB) culture Aspirate Thoracic spine Preliminary result Mycobacteriology (AFB) culture Bone Thoracic spine Preliminary result Mycology (fungal) culture Bone Thoracic spine Preliminary result Mycology (fungal) culture and stain Aspirate Thoracic spine Preliminary result Operative Procedures Performed: Procedure(s): REMOVAL PACEMAKER GENERATOR/LEADS Other Procedures: Intervention radiology for bone biopsy on 11/17 PICC line on right arm on 11/26 Pertinent Test Results: Lab Results Component Value Date WBC 5.09 12/01/2024 HGB 7.8 (L) 12/01/2024 HCT 26.0 (L) 12/01/2024 MCV 89.7 12/01/2024 LABPLAT 176 12/01/2024 Lab Results Component Value Date GLUCOSE 98 12/01/2024 CALCIUM 8.5 12/01/2024 SODIUM 142 12/01/2024 POTASSIUM 4.6 12/01/2024 CO2 24 12/01/2024 CHLORIDE 108 12/01/2024 BUNSER 10 12/01/2024 CREATININE 1.70 (H) 12/01/2024 Lab Results Component Value Date INR 2.09 (H) 12/01/2024 INR 1.54 (H) 11/30/2024 INR 1.39 (H) 11/29/2024 Susceptibility data from last 90 days. Collected Specimen Info Organism Ampicillin Doxycycline High-Level Gentamicin Linezolid Vancomycin 11/13/24 Blood from Peripheral Enterococcus faecalis 11/13/24 Blood from Peripheral Enterococcus faecalis S R S S S CT-scan of the brain and total spine 12/01/24: 1. No acute intracranial hemorrhage, mass effect or midline shift. New age-indeterminate hypodense right basal ganglia lacunar infarct compared to 2021. Favor chronic. MRI can be obtained if there is clinical concern for acute ischemia. 2. No acute cervical spine fracture. Multilevel degenerative disc disease most pronounced at C6-C7, without CT evidence of discitis osteomyelitis. 3. Unchanged endplate centered erosion and sclerosis centered at T10-T11, remaining suspicious for discitis osteomyelitis. No definite epidural extension. No acute thoracic spine fracture. 4. No acute lumbar spine fracture. Mild multilevel degenerative changes throughout the lumbar spine without CT evidence of discitis osteomyelitis. 5. Small left chest wall hematoma at the site of recently explanted cardiac pacemaker. 6. Cardiomegaly with mild pulmonary edema and small bilateral pleural effusions. Ct head 12/01/26 - repeat: 1. No acute intracranial hemorrhage, large territory infarct, or midline shift. 2. Right and left basal ganglia lacunar infarcts, likely chronic, although the right basal ganglia infarct is new from 2021. If clinically indicated, this could be further evaluated with MRI of the brain. Discharge Details Physical Exam at Discharge: Discharge Condition: stable Pulse: 81 Resp: 16 BP: 146/96 Temp: 36.7 ??C (98.1 ??F) Weight: 63.1 kg (139 lb 1.8 oz) Pertinent Exam Findings at Discharge: General: in distress, worried about fall, pain scale 8/10 in head, progressive worsening of pain onback during transport to CT HEENT: Normocephalic, no conjunctival pallor, no scleral icterus. Presence of hematoma in right forehead. Pupils reactive to light and symmetrical. Cardiac: Normal rate; regular rhythm; audible S1 and S2 metallic click on aoritc area , rubs, or gallops; 2+ radial pulses; no LE edema; no JVD nor hepato- jugular reflux. Pulm: clear to auscultation bilaterally; no wheezes, rales, or rhonchi. Surgical site clean, local bruising, no active bleeding GI/Abd: Soft, nontender, non-distended MSK: Normal bulk and tone, no joint effusions or major deformities, chronic pain on spine.Pain in T10-T11 levels worse after fall. Skin: bruises on left side of chest after pacemaker removal, dressing in place, forehead, and rightforearm. Extremities: Warm and well perfused Neuro: AAO x 4, CN II-XII grossly intact, moves all extremities spontaneously. Discharge Disposition: Patient will be discharged to:SNF (skilled care) Code Status at Discharge: FULL Discharge Instructions: Dear Kendal Cisneros, You were hospitalized for back pain, which we thought was due to osteomyelitis, requiring further investigation and found with vegetation in your pacemaker that needed to be removed. You were started on antibiotic therapy with ceftriaxone and ampicillin intravenous infusion that you will need to complete as outpatient for 6 weeks starting date (11/25 until 12/26). New medications: While you were here, we started you on several new medications. Please take the following medications: Ceftriaxone 2g IV TWICE a day for 6 weeks (starting date 11/25 until 12/23) Ampicillin 8g IV every 24 hours for 6 weeks (starting date 11/25 until 12/23) Oxycodone 7.5 mg in case of pain every FOUR hours Robaxin 750mg in case of pain every EIGHT hours Gabapentin 300mg every EIGHT hours for pain Tylenol 1g every SIX hours for pain Changes to old medication: Coreg 12.5 mg BID was on hold due to your infection and risk for lower blood pressures, and was resumed on 12/01 Spironolactone 25mg a day is on hold due to low blood pressures initially and now due to worsening of her renal function, this medication will be resumed as indicated by your PCP and 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 Please follow up with your primary care provider (PCP) within the next two weeks so that they can check in with you and make sure you are still doing well after you are discharged. If you do not have a PCP, we would be happy to see you at the Primary Care Medicine Clinic in the [facility] at the following address: [facility] [address] [place] [address]. [address], [address] [place] [address] The following appointments were made for you to follow up, keep these appointments and reschedule if necessary: Future Appointments Date Time Provider Department Center 12/25/2024 3:20 PM Marisol Quezada, JULIETA ID TABEX 100 HAIR Inf Dis 01/19/2025 11:30 AM Sukhwinder Bruner MD MG NEPH 280 MH Specialty 02/19/2025 11:30 AM Blake Dee MD [facility] CAR 130 MG Decent 03/04/2025 12:30 PM [facility] N ECHO 2 BJN CardDiag [facility] N [place] 03/04/2025 2:15 PM Sameer La MD PhD CAR CAM 8B Cardiology 11/18/2025 2:00 PM [facility] [place] DEVICE CHECK [facility] 102 [facility] Specialty The following patient is being discharged from [facility] or [facility] to [facility] on IV antibiotics. Please see below for recommendations from the Infectious Diseases inpatient consult team regarding management. Routine monitoring labs and dose adjustments are the responsibility of your facility's clinical providers and are NOT being followed by [facility] ID while the patient is receiving antibiotics at your facility. IF PATIENT IS DISCHARGED FROM LTACH, SNF OR REHAB FACILITY TO HOME WITH HOME INFUSION AND HOME HEALTH PRIOR TO THE END OF ANTIBIOTICS, please call [facility] Infectious Diseases Clinic at [phone] at least 48 hours prior to discharge so the OPAT Program can assume responsibility of the patient's antimicrobial care. If the patient's follow-up appointment needs to be rescheduled or there are questions/concerns, please call the [facility] Infectious Diseases Clinic at [phone]. General Information OPAT Program: Non HAIR ID Team: Gen ID 4 Responsible ID Provider: Aguila Antibiotic Indication: Bloodstream infection (BSI), Device infection (ie CIED, port, GRANITE POLISHER MACHINE shunt), Vertebral OM/Epidural abscess Antibiotics start date: 11/25/24 Antibiotics start date reason: Date of pacer removal Firm stop: No Antibiotics anticipated stop date: 01/06/25 Pathogens: enterococcus faecalis Retained Infected Hardware : yes Infected Hardware Details: mechanical heart valve, graft Recommended Clinic Follow-up: (Follow up with Dr. Powell in 3-4 weeks) Imaging Recommended Before Follow-up: No imaging Antimicrobials Antimicrobials A-L: Ceftriaxone, Ampicillin Antimicrobial Routes Ampicillin Route: Infusion Ceftriaxone Route: Infusion Parenteral Antimicrobials Ampicillin Dose: 2 g Ampicillin Frequency: Every 6 hours Ampicillin More Info: 2g IV Q6H for CrCL 10-50 Ceftriaxone Dose: 2 g Ceftriaxone Frequency: Every 12 hours Labs Labs - Weekly Labs: CBC with diff and platelet, CMP Labs - At 3 Weeks and 6 Weeks Labs: ESR/CRP Fax Labs To: [facility] ID [facility] ([phone]) Call For a Change in Clinical Status, Critical/Abnormal Results, or Order Verification: [facility] ([phone]) Other Instructions [facility] Home Infusion will supply IV medication and supplies, if any questions [phone] [facility] will provide shelter. If you are not contacted by your nurse within 24 Hours from your hospital discharge, please call [phone] Discharge Medications: Current Medications TAKE these medications albuterol HFA 90 mcg/actuation inhaler Inhale 2 puffs every 4 (four) hours as needed for wheezing or shortness of breath Commonly known as: Proventil HFA ampicillin (100 mg/mL) injection Infuse 20 mL (2,000 mg total) IV every 6 (six) hours for 5 minutes at 240 mL/hr Commonly known as: OMNIPEN Breztri Aerosphere 160-9-4.8 mcg/actuation inhaler Inhale 2 puffs 2 (two) times a day Generic drug: fmjmzauvip-pjlzspsi-ypzntgduws carvediloL 12.5 mg tablet TAKE 1 TABLET BY MOUTH TWICE A DAY WITH FOOD Commonly known as: COREG cefTRIAXone syringe Infuse 20 mL (2,000 mg total) IV every 12 (twelve) hours for 5 minutes for 69 doses at 240 mL/hr For: Bone/Joint Infection Commonly known as: ROCEPHIN cholecalciferol 2000 unit tablet Take 1 tablet (2,000 Units total) by mouth daily Commonly known as: VITAMIN D-3 famotidine 40 mg tablet Take 1 tablet (40 mg total) by mouth daily Commonly known as: PEPCID ferrous sulfate 325 mg (65 mg of elemental iron) tablet Take 1 tablet (325 mg total) by mouth daily with breakfast fluticasone propionate 50 mcg/actuation nasal spray Administer 2 sprays into each nostril daily Commonly known as: FLONASE gabapentin 300 mg capsule Take 1 capsule (300 mg total) by mouth 3 (three) times a day Commonly known as: NEURONTIN hydrocortisone 1 % cream with perineal applicator APPLY TO AFFECTED AREA TWICE A DAY Commonly known as: ANUSOL-HC hydrOXYzine 10 mg tablet Take 1 tablet (10 mg total) by mouth every 4 (four) hours as needed for anxiety (1st line for anxiety) Commonly known as: ATARAX lidocaine 5 % Place 1 patch on the skin daily for 12 hours Remove & discard patch within 12 hours or as directed by MD. Commonly known as: LIDODERM LORazepam 0.5 mg tablet Take 0.5 tablets (0.25 mg total) by mouth every 6 (six) hours as needed for anxiety (2nd line for anxiety) Commonly known as: ATIVAN methocarbamoL 750 mg tablet Take 1 tablet (750 mg total) by mouth 3 (three) times a day Commonly known as: ROBAXIN ondansetron 4 mg/2 mL injection Infuse 2 mL (4 mg total) IV every 6 (six) hours as needed for nausea or vomiting (if not tolerating PO) for 2 minutes For: Nausea and Vomiting Commonly known as: ZOFRAN ondansetron ODT 4 mg disintegrating tablet Take 1 tablet (4 mg total) by mouth every 8 (eight) hours as needed for nausea or vomiting Commonly known as: ZOFRAN-ODT oxyCODONE 15 mg immediate release tablet Take 0.5 tablets (7.5 mg total) by mouth every 4 (four) hours as needed for pain for up to 5 days For: pain Commonly known as: ROXICODONE polyethylene glycol 17 gram/dose bulk powder Take 17 g by mouth once for 1 dose For: constipation Commonly known as: MIRALAX rosuvastatin 40 mg tablet Take 1 tablet (40 mg total) by mouth daily Commonly known as: CRESTOR sertraline 100 mg tablet TAKE 1 TABLET BY MOUTH EVERY DAY Commonly known as: ZOLOFT traZODone 50 mg tablet TAKE 2 TABLETS BY MOUTH NIGHTLY Commonly known as: DESYREL warfarin 4 mg tablet Take 1 tablet (4 mg total) by mouth daily For: Mechanical Valve Thromboembolism Prophylaxis Commonly known as: COUMADIN Outpatient Follow-Up: Future Appointments Date Time Provider Department Center 12/25/2024 3:20 PM Marisol Quezada NP ID TABEX 100 HAIR Inf Dis 01/19/2025 11:30 AM Sukhwinder Bruner MD MG NEPH 280 MH Specialty 02/19/2025 11:30 AM Blake Dee MD [facility] CAR 130 MG Decent 03/04/2025 12:30 PM BJ N ECHO 2 B[facility]N CardDiag [facility] [place] 03/04/2025 2:15 PM Sameer La MD PhD CAR CAM 8B Cardiology 11/18/2025 2:00 PM [facility] [place] DEVICE CHECK [facility] [address] [facility] Specialty Contact Information for Follow-ups [facility] (All Locations) Next Steps: Follow up Questions: Please select the performing region: [facility] (All Locations) # of visits: 1 Referral Status: All Visits Scheduled documented in this encounter Discharge Instructions * Discharge Instructions* Lia Hernandez MD - 11/17/2024 5:18 PM CDT Dear Ms. Kendal Cisneros, You were hospitalized for back pain, which we thought was due to osteomyelitis, requiring further investigation and found with vegetation in your pacemaker that needed to be removed. You were started on antibiotic therapy with ceftriaxone and ampicillin intravenous infusion that you will need to complete as outpatient for 6 weeks starting date (11/25 until 12/26). New medications: While you were here, we started you on several new medications. Please take the following medications: Ceftriaxone 2g IV TWICE a day for 6 weeks (starting date 11/25 until 12/23) Ampicillin 8g IV every 24 hours for 6 weeks (starting date 11/25 until 12/23) Oxycodone 7.5 mg in case of pain every FOUR hours Robaxin 750mg in case of pain every EIGHT hours Gabapentin 300mg every EIGHT hours for pain Tylenol 1g every SIX hours for pain Changes to old medication: Coreg 12.5 mg BID was on hold due to your infection and risk for lower blood pressures, and was resumed on 12/01 Spironolactone 25mg a day is on hold due to low blood pressures initially and now due to worsening of her renal function, this medication will be resumed as indicated by your PCP and 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 Please follow up with your primary care provider (PCP) within the next two weeks so that they can check in with you and make sure you are still doing well after you are discharged. If you do not have a PCP, we would be happy to see you at the [facility] in the [place] [facility] at the following address: [facility] [address] [place] [address] [address] 2, [address] [place] [address] The following appointments were made for you to follow up, keep these appointments and reschedule if necessary: Future Appointments Date Time Provider Department Center 12/25/2024 3:20 PM Marisol Quezada NP ID TABEX 100 HAIR Inf Dis 01/19/2025 11:30 AM Sukhwinder Bruner MD MG NEPH 280 Specialty 02/19/2025 11:30 AM Blake Dee MD [facility] CAR 130 MG Decent 03/04/2025 12:30 PM [facility] N ECHO 2 BJN CardDiag [facility] N Convent Station 03/04/2025 2:15 PM Sameer La MD PhD CAR CAM 8B Cardiology 11/18/2025 2:00 PM [facility] DEVICE CHECK [facility] Specialty * Discharge Instr - Other Orders* Renita Back, MARIA DE JESUS - 11/17/2024 4:07 PM CDT [facility] Home Infusion will supply IV medication and supplies, if any questions [phone] [facility] will provide shelter. If you are not contacted by your nurse within 24 Hours from your hospital discharge, please call [phone] documented in this encounter Medications at Time of Discharge albuterol HFA (Proventil HFA) 90 mcg/actuation inhalerIndications:C entrilobular emphysema (HCC) Inhale 2 puffs every 4 (four) hours as needed for wheezing or shortness of breath 6.73 each 4 10/23/2022 04/08/20 25 ampicillin (OMNIPEN) (100 mg/mL) injection Infuse 20 mL (2,000 mg total) IV every 6 (six) hours for 5 minutes at 240 mL/hr 12/02/2024 Breztri Aerosphere 160-9-4.8 mcg/actuation inhaler Inhale 2 puffs 2 (two) times a day 10/25/2023 carvediloL (COREG) 12.5 mg tablet TAKE 1 TABLET BY MOUTH TWICE A DAY WITH FOOD 180 tablet 3 11/23/2023 cefTRIAXone (ROCEPHIN) syringeIndications:B one/Joint Infection Infuse 20 mL (2,000 mg total) IV every 12 (twelve) hours for 5 minutes for 69 doses at 240 mL/hr 12/02/2024 01/07/20 25 cholecalciferol (VITAMIN D-3) 2000 unit tablet Take 1 tablet (2,000 Units total) by mouth daily famotidine (PEPCID) 40 mg tabletIndications:Ga stroesophageal reflux disease without esophagitis Take 1 tablet (40 mg total) by mouth daily 90 tablet 2 02/27/2024 ferrous sulfate 325 mg (65 mg of elemental iron) tabletIndications:St age 3b chronic kidney disease (HCC),Anemia in stage 3b chronic kidney disease (HCC) Take 1 tablet (325 mg total) by mouth daily with breakfast 10/23/2024 10/24/19 26 fluticasone propionate (FLONASE) 50 mcg/actuation nasal spray Administer 2 sprays into each nostril daily 3 each 4 11/13/2023 gabapentin (NEURONTIN) 300 mg capsule Take 1 capsule (300 mg total) by mouth 3 (three) times a day 90 capsule 11 12/02/2024 12/03/19 26 hydrocortisone (ANUSOL-HC) 1 % cream with perineal applicator APPLY TO AFFECTED AREA TWICE A DAY 28.4 g 1 11/07/2024 hydrOXYzine (ATARAX) 10 mg tablet Take 1 tablet (10 mg total) by mouth every 4 (four) hours as needed for anxiety (1st line for anxiety) 12/02/2024 lidocaine (LIDODERM) 5 % Place 1 patch on the skin daily for 12 hours Remove & discard patch within 12 hours or as directed by . 12/02/2024 01/02/20 25 LORazepam (ATIVAN) 0.5 mg tablet Take 0.5 tablets (0.25 mg total) by mouth every 6 (six) hours as needed for anxiety (2nd line for anxiety) 12/02/2024 methocarbamoL (ROBAXIN) 750 mg tablet Take 1 tablet (750 mg total) by mouth 3 (three) times a day 12/02/2024 ondansetron (ZOFRAN) 4 mg/2 mL injectionIndications :Nausea and Vomiting Infuse 2 mL (4 mg total) IV every 6 (six) hours as needed for nausea or vomiting (if not tolerating PO) for 2 minutes 12/02/2024 ondansetron ODT (ZOFRAN-ODT) 4 mg disintegrating tablet Take 1 tablet (4 mg total) by mouth every 8 (eight) hours as needed for nausea or vomiting 20 tablet 08/24/2024 oxyCODONE (ROXICODONE) 15 mg immediate release tabletIndications:Pa in Take 0.5 tablets (7.5 mg total) by mouth every 4 (four) hours as needed for pain for up to 5 days 10 tablet 12/02/2024 12/08/19 25 polyethylene glycol (MIRALAX) 17 gram/dose bulk powderIndications:co nstipation Take 17 g by mouth once for 1 dose 12/02/2024 rosuvastatin (CRESTOR) 40 mg tabletIndications:Mi xed hyperlipidemia Take 1 tablet (40 mg total) by mouth daily 90 tablet 3 06/13/2024 06/13/20 25 sertraline (ZOLOFT) 100 mg tablet TAKE 1 TABLET BY MOUTH EVERY DAY 90 tablet 1 07/17/2024 traZODone (DESYREL) 50 mg tabletIndications:In somnia due to medical condition TAKE 2 TABLETS BY MOUTH NIGHTLY 180 tablet 1 10/30/2024 warfarin (COUMADIN) 4 mg tabletIndications:Me chanical Valve Thromboembolism Prophylaxis Take 1 tablet (4 mg total) by mouth daily 12/02/2024 documented as of this encounter Ordered Prescriptions Prescription Sig Dispense Quantity Refills Last Filled Start Date End Date ondansetron (ZOFRAN) 4 mg/2 mL injectionIndications :Nausea and Vomiting Infuse 2 mL (4 mg total) IV every 6 (six) hours as needed for nausea or vomiting (if not tolerating PO) for 2 minutes 12/02/2024 ampicillin (OMNIPEN) (100 mg/mL) injection Infuse 20 mL (2,000 mg total) IV every 6 (six) hours for 5 minutes at 240 mL/hr 12/02/2024 cefTRIAXone (ROCEPHIN) syringeIndications:B one/Joint Infection Infuse 20 mL (2,000 mg total) IV every 12 (twelve) hours for 5 minutes for 69 doses at 240 mL/hr 12/02/2024 01/07/20 25 warfarin (COUMADIN) 4 mg tabletIndications:Me chanical Valve Thromboembolism Prophylaxis Take 1 tablet (4 mg total) by mouth daily 12/02/2024 polyethylene glycol (MIRALAX) 17 gram/dose bulk powderIndications:co nstipation Take 17 g by mouth once for 1 dose 12/02/2024 oxyCODONE (ROXICODONE) 15 mg immediate release tabletIndications:Pa in Take 0.5 tablets (7.5 mg total) by mouth every 4 (four) hours as needed for pain for up to 5 days 10 tablet 12/02/2024 12/08/19 25 methocarbamoL (ROBAXIN) 750 mg tablet Take 1 tablet (750 mg total) by mouth 3 (three) times a day 12/02/2024 LORazepam (ATIVAN) 0.5 mg tablet Take 0.5 tablets (0.25 mg total) by mouth every 6 (six) hours as needed for anxiety (2nd line for anxiety) 12/02/2024 lidocaine (LIDODERM) 5 % Place 1 patch on the skin daily for 12 hours Remove & discard patch within 12 hours or as directed by MD. 12/02/2024 01/02/20 25 hydrOXYzine (ATARAX) 10 mg tablet Take 1 tablet (10 mg total) by mouth every 4 (four) hours as needed for anxiety (1st line for anxiety) 12/02/2024 gabapentin (NEURONTIN) 300 mg capsule Take 1 capsule (300 mg total) by mouth 3 (three) times a day 90 capsule 11 12/02/2024 12/03/19 26 documented in this encounter Discharge Disposition Disposition Code Departure Means Destination Comment s Discharge to SNF Ambulance/EMS documented in this encounter Progress Notes * Tung Avitia RN - 12/02/2024 1:42 PM CDT 12/02/24 1401 Discharge Summary Discharge Disposition correction facility (short term care) Specify Facility [facility] Facility Contact Number [phone] Recommended Discharge Level of Care correction facility (short term care) Actual Discharge Level of Care correction facility (short term care) Does Actual Level of Care Match Care Team Recommendation? Yes Post Acute Care Plan Post Acute Care Needs Identified Yes Home Care Services N/A OP Services N/A DME N/A Post Acute Care Facility N/A Discharge Additional Assistance Does the patient need discharge transport arranged? Yes Type of Transportation Ambulance/EMS Has discharge transport been arranged? Yes Details of Transportation [facility] D/C Transport Anticipated Date 12/02/24 D/C Transport Anticipated Time 1330 Per medical team, patient is medically stable for discharge at this time. Patient has been [facility] [phone]. CM spoke with the patient, admissions, medical team, and RN regarding discharge planning, and all are agreeable to discharge. Post-acute care transfer packet completed and will be sent with the patient. RN provided with report number to nurses station. Room #[phone] provided by facility. CM obtained IMM letter. Mode of transport has been discussed with the patient/family, MD, nursing staff. All are agreeable to plan and understand their responsibilities to ensure the safe transfer. [facility] Trip #[id number]. * Lia Hernandez MD - 12/02/2024 12:41 PM CDT Daily Progress Note Firm Service Name: Kendal Cisneros : 1955 Today's Date: December 02, 2024 Age: 69 y.o. female Admit Date: 11/13/2024 Bed: [id number] LOS: 19 days Subjective Interval History - Patient stable, pain controlled, sleeping well. - Has some nausea after her fall yesterday, repeat CT was normal. - INR 1.66 -> 1.44->1.39-> 1.54 -> 2.09, Cr 1.70 still up from baseline. - Lovenox 60mg q24 discontinued after INR is at goal. - Neurocheck >24h did not show any additional mental status changes. Plan: - Discharged today to SNF to continue antibiotic un til 12/26 - Coumadin is at 4mg/daily, will need follow up at arrival at SNF and every 3 days (higher dose from her baseline prior this admission that was 3mg 4x/week and 1.5mg 3x/week) - Informed son about plan and explained the next steps for her treatment - Should resume spironolactone 25mg daily when renal function more stable. Objective Scheduled Meds PRN Meds Infusions acetaminophen, 1,000 mg, oral, Q6H GLORY ampicillin, 2,000 mg, intravenous, Q6H GLORY carvediloL, 12.5 mg, oral, BID with meals (bkfst, dinner) cefTRIAXone, 2,000 mg, intravenous, Q12H GLORY famotidine, 40 mg, oral, Daily fluticasone propionate, 2 spray, each nostril, Daily hxasrggteot-ugwmtcdos-bcsnopyc, 1 puff, inhalation, Daily gabapentin, 300 mg, oral, TID lidocaine, 1 patch, transdermal, Q24H methocarbamoL, 750 mg, oral, TID rosuvastatin, 40 mg, oral, Daily sertraline, 100 mg, oral, Daily sodium chloride 0.9%, 0.5-20 mL, intra-catheter, Q8H GLORY sodium chloride 0.9%, 10-40 mL, intra-catheter, Q12H GLORY [Held by Provider] spironolactone, 25 mg, oral, Daily traZODone, 100 mg, oral, Nightly warfarin, 4 mg, oral, Daily-1800 albuterol HFA, 2 puff, inhalation, Q4H PRN (RT) sodium chloride 0.9%, 30 mL, intravenous, PRN hydrOXYzine, 10 mg, oral, Q4H PRN LORazepam, 0.25 mg, oral, Q6H PRN ondansetron ODT, 4 mg, oral, Q6H PRN OR ondansetron, 4 mg, intravenous, Q6H PRN oxyCODONE, 7.5 mg, oral, Q4H PRN perflutren lipid (DEFINITY) 1.5 mL in sodium chloride 0.9% 10 mL syringe, 1-10 mL, intravenous, Once in imaging polyethylene glycol, 17 g, oral, Daily PRN prochlorperazine, 5 mg, intravenous, Q6H PRN sodium chloride 0.9%, 0.5-20 mL, intra-catheter, PRN sodium chloride 0.9%, 10-20 mL, intra-catheter, PRN Vitals Most Recent Vitals: T 36.7 ??C (98.1 ??F), HR 81, BP 146/96, RR 16, SpO2 94 %. 24hr Min/Max: Temp Min: 36.6 ??C (97.9 ??F) Max: 36.7 ??C (98.1 ??F) Pulse Min: 68 Max: 81 BP Min: 125/57 Max: 148/72 Resp Min: 16 Max: 18 SpO2 Min: 94 % Max: 97 % Intake/Output Summary (Last 24 hours) at 12/02/2024 1305 Last data filed at 12/02/2024 1005 Gross per 24 hour Intake 120 ml Output -- Net 120 ml Net IO Since Admission: 2,675 mL [12/02/24 1305] Last Weight: 63.1 kg (139 lb 1.8 oz) (11/13/24 184). Admit Weight: 61.2 kg (135 lb). Last BM: Stool Occurrence Amount: Medium (12/02/24 1005) Physical Exam General: Not in distress, appears comfortable, pain scale 2/10 on her forehead HEENT: Normocephalic, no conjunctival pallor, no scleral icterus , hematoma in right forehead, stable when compared to 12/01. Cardiac: Normal rate; regular rhythm; audible S1 and S2 metallic click on aoritc area , rubs, or gallops; 2+ radial pulses; no LE edema; no JVD nor hepato- jugular reflux. Pulm: clear to auscultation bilaterally; no wheezes, rales, or rhonchi. Surgical site clean, local bruising, no active bleeding. Left with no dressing today. GI/Abd: Soft, nontender, non-distended MSK: Normal bulk and tone, no joint effusions or major deformities, chronic pain on spine. Bx site on T10 level without local bruising or hematoma. Bruising in both arms. PICC line on right arm. Skin: bruises on left side of chest after pacemaker removal, dressing in place. Extremities: Warm and well perfused Neuro: AAO x 4, CN II-XII grossly intact, moves all extremities spontaneously Lines, Drains, Airways PICC Double Lumen 11/26/24 Non-tunneled Power #1 Red, #2 Purple, Right Basilic;Upper arm (Active) Labs/Diagnostic Review Na 142 (140) Cl 108 BUN 10 (10) K 4.6 (4.4) CO2 24 (25) Cr 1.70 (1.59) Mg - ( ), G (123) AST 53 ( ) ALT 40 ( ) Alk Phos 105 ( ) Ca 8.5 (8.5) TP 7.0 Alb 3.4 Total Bili: <0.2 ( ) Direct Bili: <0.2 ( ) \ Hgb 7.8 (7.3) / WBC 5.09 (5.79) -------- Plt 176 (162) / MCV 89.7 (89.6)\ INR 2.09 (Labs above are the most recent result obtained in the last 24 hours, followed by the 2nd to last lab in the past 3 days, if applicable. For additional labs/trends, see Epic.) Imaging Review CT Head WO Contrast Result Date: 12/01/2024 1. No acute intracranial hemorrhage, large territory infarct, or midline shift. 2. Right and left basal ganglia lacunar infarcts, likely chronic, although the right basal ganglia infarct is new from 2021. If clinically indicated, this could be further evaluated with MRI of the brain. Dictated by: Diogenes Hayes MD The radiology attending physician has personally reviewed this study, and had reviewed and/or edited this written report and agrees with it. Electronically signed by: Shilo Miller M.D. CT Head Total Spine WO Contrast Result Date: 12/01/2024 1. No acute intracranial hemorrhage, mass effect or midline shift. New age- indeterminate hypodense right basal ganglia lacunar infarct compared to 2021. Favor chronic. MRI can be obtained if there isclinical concern for acute ischemia. 2. No acute cervical spine fracture. Multilevel degenerative disc disease most pronounced at C6-C7, without CT evidence of discitis osteomyelitis. 3. Unchanged endplate centered erosion and sclerosis centered at T10-T11, remaining suspicious for discitis osteomyelitis. No definite epidural extension. No acute thoracic spine fracture. 4. No acute lumbar spine fracture. Mild multilevel degenerative changes throughout the lumbar spine without CT evidence of discitis osteomyelitis. 5. Small left chest wall hematoma at the site of recently explanted cardiac pacemaker. 6. Cardiomegaly with mild pulmonary edema and small bilateral pleural effusions. Dictated by: Wali Adams MD The radiology attending physician has personally reviewed this study, and had revi ewed and/or edited this written report and agrees with it. Electronically signed by: Aiden Macias MD Assessment & Plan Chronic midline thoracic back pain # C/f thoracic discitis / osteomyelitis Chronic back pain since 08/2024. Has had multiple CT scans for workup. Most recent CT thoracic spineshowed c/f discitis osteophyte complex at T10-11, saw NSGY as o/p, told to come to ED for further workup. Endorsing night sweats, 20 lb weight loss, intermittent BUE tingling. No incontinence. No IVDU. Hx of kyphoplasty few years ago to d/t L compression fracture. Hx of OM in foot / leg many years ago iso trauma. ESR/CRP high here. MRI total spine done and MSK IR bx on 11/17 with negative cultures. 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 Transitioned to Lovenox on 11/29 with NEGATIVE MELODY. Warfarin restarted on 11/26 with bridging ongoing. Lovenox d/c on 11/22, IRN at goal 2.09 (goal 2-3) - Pain management with GLORY: tylenol 1g q6, robaxin 750mg q8, gabapentin 300mg TID (added on 11/22),Lidocaine patch; PRN: oxy 7.5mg q4 and dilaudid 0.2 IV q2 to breakthrough pain. 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 faecalis on 11/13. Unclear source. 20lb weight loss over the last few months.Cardiac surgeon that follow patient was contacted (Dr. Adal Moore) and agree with the plan. TTE on 11/14 lVEF 67% no thrombus, mechanical mitral valve w/o dysfunction. NEVAEH completed on 11/19, possible vegetation on pacemaker leads. Consulted CTS and pacemaker removal on 11/25 at 14:50 without complications. 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 HI T Ab positive but MELODY negative, Ruled out HIT. - Heparin (11/11 - 11/25) -> Bival (11/25-) -> Lovenox (11/29-12/02) - Started bridge to coumadin on 11/26, completed on 12/02. Pacemaker infection See above - Removal of pacemaker on 11/25 - Continue antibiotic, followed by ID - Plan discharge considering antibiotic therapy for 6 weeks and suppression for a year - EKG repeated more Fall Patient had a fall on 12/01 while taking a shower at 9:20. On coumadin 4mg/daily and full dose of lovenox. Presence of hematoma em right forehead.No loss of consciousness, nausea or vomit after event. Patient reports she lost her balance - 12/01 CT head and total spine - no acute intracranial processes - Repeat CT at 12/01 night no acute intracranial processes Code status : Full Code Diet : Adult Diet Regular, Restricted; Vitamin K Consistent PT/OT recs : Lia Ye MD PGY1 Anesthesia 12/02/2024 1:05 PM Cosigned by Brittney Martinez MD at 12/02/2024 1:12 PM CDT Associated attestation - Brittney Martinez MD - 12/02/2024 1:12 PM CDT Attending Documentation I have seen and examined the patient on 12/02/24. I agree with the findings and plan of care as documented in the resident's/fellow's note. Brittney Martinez MD * Lia Hernandez MD - 12/01/2024 10:14 AM CDT Daily Progress Note Firm Service Name: Kendal Cisneros : 1955 Today's Date: December 01, 2024 Age: 69 y.o. female Admit Date: 11/13/2024 Bed: [id number] LOS: 18 days Subjective Interval History - Patient stable, pain controlled, sleeping well. - At 9:20 she went to the bathroom to take a shower and felt, hitting her head. Denies loss of consciousness, nausea and vomit before or after event, Patient reports she lost her balance. Physical exam with hematoma in right forehead. Reported increasing back pain after fall. - INR 1.66 -> 1.44->1.39-> 1.54, Cr 1.59 still up from baseline. - On lovenox 60mg q24 for coumadin bridge (4mg/daily) Plan: - CT head and total spine without contrast STAT - Neurocheck q6 - Continue coumadin 4mg - Monitor Renal function - resume coreg 12,5mg BID Objective Scheduled Meds PRN Meds Infusions acetaminophen, 1,000 mg, oral, Q6H GLORY ampicillin, 2,000 mg, intravenous, Q6H GLORY [Held by Provider] carvediloL, 12.5 mg, oral, BID with meals (bkfst, dinner) cefTRIAXone, 2,000 mg, intravenous, Q12H GLORY enoxaparin, 1 mg/kg, subcutaneous, Daily famotidine, 40 mg, oral, Daily fluticasone propionate, 2 spray, each nostril, Daily lztpkzbbntd-sjpuaofjw-akulifmv, 1 puff, inhalation, Daily gabapentin, 300 mg, oral, TID lidocaine, 1 patch, transdermal, Q24H methocarbamoL, 750 mg, oral, TID rosuvastatin, 40 mg, oral, Daily sertraline, 100 mg, oral, Daily sodium chloride 0.9%, 0.5-20 mL, intra-catheter, Q8H GLORY sodium chloride 0.9%, 10-40 mL, intra-catheter, Q12H GLORY [Held by Provider] spironolactone, 25 mg, oral, Daily traZODone, 100 mg, oral, Nightly warfarin, 4 mg, oral, Daily-1800 albuterol HFA, 2 puff, inhalation, Q4H PRN (RT) sodium chloride 0.9%, 30 mL, intravenous, PRN HYDROmorphone, 0.2 mg, intravenous, Q2H PRN hydrOXYzine, 10 mg, oral, Q4H PRN LORazepam, 0.25 mg, oral, Q6H PRN ondansetron ODT, 4 mg, oral, Q6H PRN OR ondansetron, 4 mg, intravenous, Q6H PRN oxyCODONE, 7.5 mg, oral, Q4H PRN perflutren lipid (DEFINITY) 1.5 mL in sodium chloride 0.9% 10 mL syringe, 1-10 mL, intravenous, Once in imaging polyethylene glycol, 17 g, oral, Daily PRN prochlorperazine, 5 mg, intravenous, Q6H PRN sodium chloride 0.9%, 0.5-20 mL, intra-catheter, PRN sodium chloride 0.9%, 10-20 mL, intra-catheter, PRN Vitals Most Recent Vitals: T 36.8 ??C (98.2 ??F), HR 91, BP 157/97, RR 18, SpO2 95 %. 24hr Min/Max: Temp Min: 36.7 ??C (98.1 ??F) Max: 36.8 ??C (98.2 ??F) Pulse Min: 80 Max: 110 BP Min: 131/73 Max: 157/97 Resp Min: 18 Max: 18 SpO2 Min: 95 % Max: 100 % No intake or output data in the 24 hours ending 12/01/24 1024 Net IO Since Admission: 2,555 mL [12/01/24 1024] Last Weight: 63.1 kg (139 lb 1.8 oz) (11/13/24 1845). Admit Weight: 61.2 kg (135 lb). Last BM: Stool Occurrence Amount: Medium (11/26/24 0835) Physical Exam Physical exam before fall: General: Not in distress, appears comfortable, pain scale 0/10 while resting and 3/10 (spine, around T 10 level when moving) HEENT: Normocephalic, no conjunctival pallor, no scleral icterus Cardiac: Normal rate; regular rhythm; audible S1 and S2 metallic click on aoritc area , rubs, or gallops; 2+ radial pulses; no LE edema; no JVD nor hepato- jugular reflux. Pulm: clear to auscultation bilaterally; no wheezes, rales, or rhonchi. Surgical site clean, local bruising, no active bleeding. Left with no dressing today. GI/Abd: Soft, nontender, non-distended MSK: Normal bulk and tone, no joint effusions or major deformities, chronic pain on spine. Bx site on T10 level without local bruising or hematoma. Skin: bruises on left side of chest after pacemaker removal, dressing in place. Extremities: Warm and well perfused Neuro: AAO x 4, CN II-XII grossly intact, moves all extremities spontaneously Physical exam after fall: General: in distress, worried about fall, pain scale 8/10 in head, progressive worsening of pain onback during transport to CT HEENT: Normocephalic, no conjunctival pallor, no scleral icterus. Presence of hematoma in right forehead. Pupils reactive to light and symmetrical. Cardiac: Normal rate; regular rhythm; audible S1 and S2 metallic click on aoritc area , rubs, or gallops; 2+ radial pulses; no LE edema; no JVD nor hepato- jugular reflux. Pulm: clear to auscultation bilaterally; no wheezes, rales, or rhonchi. Surgical site clean, local bruising, no active bleeding GI/Abd: Soft, nontender, non-distended MSK: Normal bulk and tone, no joint effusions or major deformities, chronic pain on spine.Pain in T10-T11 levels worse after fall. Skin: bruises on left side of chest after pacemaker removal, dressing in place, forehead, and rightforearm. Extremities: Warm and well perfused Neuro: AAO x 4, CN II-XII grossly intact, moves all extremities spontaneously. Lines, Drains, Airways PICC Double Lumen 11/26/24 Non-tunneled Power #1 Red, #2 Purple, Right Basilic;Upper arm (Active) Peripheral IV 11/20/24 20 G Anterior;Right Forearm (Active) Labs/Diagnostic Review Na 140 (145) Cl 110 BUN 10 (12) K 4.4 (4.2) CO2 25 (24) Cr 1.59 (1.63) Mg - ( ), G (99) AST - ( ) ALT - ( ) Alk Phos - ( ) Ca 8.5 (8.5) TP - Alb - Total Bili: - ( ) Direct Bili: - ( ) \ Hgb 7.3 (8.2) / WBC 5.79 (7.02) -------- Plt 162 (187) / MCV 89.6 (89.3)\ INR 1.54 (Labs above are the most recent result obtained in the last 24 hours, followed by the 2nd to last lab in the past 3 days, if applicable. For additional labs/trends, see Epic.) Imaging Review No results found. Assessment & Plan Chronic midline thoracic back pain # C/f thoracic discitis / osteomyelitis Chronic back pain since 08/2024. Has had multiple CT scans for workup. Most recent CT thoracic spineshowed c/f discitis osteophyte complex at T10-11, saw NSGY as o/p, told to come to ED for further workup. Endorsing night sweats, 20 lb weight loss, intermittent BUE tingling. No incontinence. No IVDU. Hx of kyphoplasty few years ago to d/t L compression fracture. Hx of OM in foot / leg many years ago iso trauma. ESR/CRP high here. MRI total spine done and MSK IR bx on 11/17 with negative cultures. 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 Transitioned to Lovenox on 11/29 with NEGATIVE MELODY. Warfarin restarted on 11/26 with bridging ongoing. - Pain management with GLORY: tylenol 1g q6, robaxin 750mg q8, gabapentin 300mg TID (added on 11/22),Lidocaine patch; PRN: oxy 7.5mg q4 and dilaudid 0.2 IV q2 to breakthrough pain. 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 faecalis on 11/13. Unclear source. 20lb weight loss over the last few months.Cardiac surgeon that follow patient was contacted (Dr. Adal Moore) and agree with the plan. TTE on 11/14 lVEF 67% no thrombus, mechanical mitral valve w/o dysfunction. NEVAEH completed on 11/19, possible vegetation on pacemaker leads. Consulted CTS and pacemaker removal on 11/25 at 14:50 without complications. 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 - Heparin (11/11 - 11/25) -> Bival (11/25-) -> Lovenox (11/29-) - Started bridge to coumadin on 11/26 Pacemaker infection See above - Removal of pacemaker on 11/25 - Continue antibiotic, followed by ID - Plan discharge considering antibiotic therapy for 6 weeks and suppression for a year Fall Patient had a fall on 12/01 while taking a shower at 9:20. On coumadin 4mg/daily and full dose of lovenox. Presence of hematoma em right forehead.No loss of consciousness, nausea or vomit after event. Patient reports she lost her balance - STAT CT head and total spine - pending reading - Neurocheck q6 Code status : Full Code Diet : Adult Diet Regular, Restricted; Vitamin K Consistent PT/OT recs : Lia Ye MD PGY1 Anesthesia 12/01/2024 10:24 AM Cosigned by Brittney Martinez MD at 12/02/2024 1:12 PM CDT Associated attestation - Brittney Martinez MD - 12/02/2024 1:12 PM CDT Attending Documentation I have seen and examined the patient on 12/01/2024. I agree with the findings and plan of care as documented in the resident's/fellow's note. Pt with fall today and sustained head trauma. Head imaging unremarkable and pt neurologically intact. She was otherwise medically ready for discharge, which can't happen until tomorrow due to the holiday. Brittney Martinez MD * Lia Hernandez MD - 11/30/2024 9:10 AM CDT Daily Progress Note Firm Service Name: Kendal Cisneros : 1955 Today's Date: November 30, 2024 Age: 69 y.o. female Admit Date: 11/13/2024 Bed: [id number] LOS: 17 days Subjective Interval History - Patient stable, pain controlled, sleeping well. - INR 1.66 -> 1.44->1.39 , aPTT persistently subtherapeutic. Cr 1.63 still up from baseline. - On lovenox 60mg q24 for coumadin bridge Plan: - Dc Bival. Start Lovenox 60mg q24h. If CrCl improve to >30, will increase to Lovenox 60 BID. - Increase Warfarin to 4mg daily, potential effect of ceftriaxone on reduction of effect of coumadin - Give 500cc LR bolus to facilitate renal recovery - Anticipate discharge to SNF on 12/02 for continued IV Abx therapy Objective Scheduled Meds PRN Meds Infusions acetaminophen, 1,000 mg, oral, Q6H GLORY ampicillin, 2,000 mg, intravenous, Q6H GLORY [Held by Provider] carvediloL, 12.5 mg, oral, BID with meals (bkfst, dinner) cefTRIAXone, 2,000 mg, intravenous, Q12H GLORY enoxaparin, 1 mg/kg, subcutaneous, Daily famotidine, 40 mg, oral, Daily fluticasone propionate, 2 spray, each nostril, Daily cptgdgoedmo-ayubkemdq-gmmjkove, 1 puff, inhalation, Daily gabapentin, 300 mg, oral, TID lidocaine, 1 patch, transdermal, Q24H methocarbamoL, 750 mg, oral, TID rosuvastatin, 40 mg, oral, Daily sertraline, 100 mg, oral, Daily sodium chloride 0.9%, 0.5-20 mL, intra-catheter, Q8H GLORY sodium chloride 0.9%, 10-40 mL, intra-catheter, Q12H GLORY [Held by Provider] spironolactone, 25 mg, oral, Daily traZODone, 100 mg, oral, Nightly warfarin, 5 mg, oral, Daily-1800 albuterol HFA, 2 puff, inhalation, Q4H PRN (RT) sodium chloride 0.9%, 30 mL, intravenous, PRN HYDROmorphone, 0.2 mg, intravenous, Q2H PRN hydrOXYzine, 10 mg, oral, Q4H PRN LORazepam, 0.25 mg, oral, Q6H PRN ondansetron ODT, 4 mg, oral, Q6H PRN OR ondansetron, 4 mg, intravenous, Q6H PRN oxyCODONE, 7.5 mg, oral, Q4H PRN perflutren lipid (DEFINITY) 1.5 mL in sodium chloride 0.9% 10 mL syringe, 1-10 mL, intravenous, Once in imaging polyethylene glycol, 17 g, oral, Daily PRN prochlorperazine, 5 mg, intravenous, Q6H PRN sodium chloride 0.9%, 0.5-20 mL, intra-catheter, PRN sodium chloride 0.9%, 10-20 mL, intra-catheter, PRN Vitals Most Recent Vitals: T 36.4 ??C (97.5 ??F), HR 88, BP 149/78, RR 17, SpO2 98 %. 24hr Min/Max: Temp Min: 36.4 ??C (97.5 ??F) Max: 36.7 ??C (98.1 ??F) Pulse Min: 66 Max: 88 BP Min: 100/80 Max: 149/78 Resp Min: 16 Max: 17 SpO2 Min: 95 % Max: 98 % Intake/Output Summary (Last 24 hours) at 11/30/2024910 Last data filed at 11/29/2024 2249 Gross per 24 hour Intake 50 ml Output -- Net 50 ml Net IO Since Admission: 2,555 mL [11/30/24 0911] Last Weight: 63.1 kg (139 lb 1.8 oz) (11/13/24 1845). Admit Weight: 61.2 kg (135 lb). Last BM: Stool Occurrence Amount: Medium (11/26/24 0835) Physical Exam General: Not in distress, appears comfortable, pain scale 0/10 while resting and 3/10 (spine, around T 10 level when moving) HEENT: Normocephalic, no conjunctival pallor, no scleral icterus Cardiac: Normal rate; regular rhythm; audible S1 and S2 metallic click on aoritc area , rubs, or gallops; 2+ radial pulses; no LE edema; no JVD nor hepato- jugular reflux. Pulm: clear to auscultation bilaterally; no wheezes, rales, or rhonchi. Surgical site clean, local bruising, no active bleeding. Left with no dressing today. GI/Abd: Soft, nontender, non-distended MSK: Normal bulk and tone, no joint effusions or major deformities, chronic pain on spine. Bx site on T10 level without local bruising or hematoma. Presence of improvement of muscle strain on paravertebral area on T10-T12 levels worse on left side. Skin: bruises on left side of chest after pacemaker removal, dressing in place. Extremities: Warm and well perfused Neuro: AAO x 4, CN II-XII grossly intact, moves all extremities spontaneously Lines, Drains, Airways PICC Double Lumen 11/26/24 Non-tunneled Power #1 Red, #2 Purple, Right Basilic;Upper arm (Active) Peripheral IV 11/20/24 20 G Anterior;Right Forearm (Active) Labs/Diagnostic Review Na 145 (139) Cl 111 BUN 12 (13) K 4.2 (3.7) CO2 24 (25) Cr 1.63 (1.61) Mg - ( ), G (131) AST - ( ) ALT - ( ) Alk Phos - ( ) Ca 8.5 (8.1) TP - Alb - Total Bili: - ( ) Direct Bili: - ( ) \ Hgb 7.3 (8.2) / WBC 5.79 (7.02) -------- Plt 162 (187) / MCV 89.6 (89.3)\ INR 1.39 (Labs above are the most recent result obtained in the last 24 hours, followed by the 2nd to last lab in the past 3 days, if applicable. For additional labs/trends, see Epic.) Imaging Review No results found. Assessment & Plan Chronic midline thoracic back pain # C/f thoracic discitis / osteomyelitis Chronic back pain since 08/2024. Has had multiple CT scans for workup. Most recent CT thoracic spineshowed c/f discitis osteophyte complex at T10-11, saw NSGY as o/p, told to come to ED for further workup. Endorsing night sweats, 20 lb weight loss, intermittent BUE tingling. No incontinence. No IVDU. Hx of kyphoplasty few years ago to d/t L compression fracture. Hx of OM in foot / leg many years ago iso trauma. ESR/CRP high here. MRI total spine done and MSK IR bx on 11/17 with negative cultures. 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 Transitioned to Lovenox on 11/29 with NEGATIVE MELODY. Warfarin restarted on 11/26 with bridging ongoing. - Pain management with GLORY: tylenol 1g q6, robaxin 750mg q8, gabapentin 300mg TID (added on 11/22),Lidocaine patch; PRN: oxy 7.5mg q4 and dilaudid 0.2 IV q2 to breakthrough pain. 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 faecalis on 11/13. Unclear source. 20lb weight loss over the last few months.Cardiac surgeon that follow patient was contacted (Dr. Adal Moore) and agree with the plan. TTE on 11/14 lVEF 67% no thrombus, mechanical mitral valve w/o dysfunction. NEVAEH completed on 11/19, possible vegetation on pacemaker leads. Consulted CTS and pacemaker removal on 11/25 at 14:50 without complications. 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 - Heparin (11/11 - 11/25) -> Bival (11/25-) -> Lovenox (11/29-) - Started bridge to coumadin on 11/26 Pacemaker infection See above - Removal of pacemaker on 11/25 - Continue antibiotic, followed by ID - Plan discharge considering antibiotic therapy for 6 weeks and suppression for a year Code status : Full Code Diet : Adult Diet Regular, Restricted; Vitamin K Consistent PT/OT recs : Lia Ye MD PGY1 Anesthesia 11/30/2024 9:11 AM Cosigned by Baltazar Manzano MD at 11/30/2024 2:52 PM CDT Associated attestation - Baltazar Manzano MD - 11/30/2024 2:52 PM CDT Attending Documentation I have seen and examined the patient on 11/30/24. I agree with the findings and plan of care as documented in the resident's/fellow's note. Supplementary Attestation My total encounter time on this service date was 30 minutes which was spent performing a bjbg-aa-wrry encounter and personally completing the provider-level activities documented in the note. This includes time spent prior to the visit and after the visit in direct care of the patient. This time does not include time spent in any separately reportable services. Baltazar Manzano MD * Ann Bangura MD - 11/29/2024 12:23 PM CDT Daily Progress Note Firm Service Name: Kendal Cisneros : 1955 Today's Date: November 29, 2024 Age: 69 y.o. female Admit Date: 11/13/2024 Bed: [id number] LOS: 16 days Subjective Interval History - HDS, pain controlled. No complaints this am - MELODY negative, ruling out HIT. - INR 1.66 -> 1.44, aPTT persistently subtherapeutic. Cr improving to 1.52 but still up from baseline. Plan: - Dc Bival. Start Lovenox 60mg q24h. If CrCl improve to >30, will increase to Lovenox 60 BID. - Continue Warfarin 3mg daily - Give 500cc LR bolus to facilitate renal recovery - Anticipate discharge to SNF on 12/02 for continued IV Abx therapy Objective Scheduled Meds PRN Meds Infusions acetaminophen, 1,000 mg, oral, Q6H GLORY ampicillin, 2,000 mg, intravenous, Q6H GLORY [Held by Provider] carvediloL, 12.5 mg, oral, BID with meals (bkfst, dinner) cefTRIAXone, 2,000 mg, intravenous, Q12H GLORY enoxaparin, 1 mg/kg, subcutaneous, Daily famotidine, 40 mg, oral, Daily fluticasone propionate, 2 spray, each nostril, Daily klcyhnwrvwg-cocjifqyg-xpcocmta, 1 puff, inhalation, Daily gabapentin, 300 mg, oral, TID lidocaine, 1 patch, transdermal, Q24H methocarbamoL, 750 mg, oral, TID rosuvastatin, 40 mg, oral, Daily sertraline, 100 mg, oral, Daily sodium chloride 0.9%, 0.5-20 mL, intra-catheter, Q8H GLORY sodium chloride 0.9%, 10-40 mL, intra-catheter, Q12H GLORY [Held by Provider] spironolactone, 25 mg, oral, Daily traZODone, 100 mg, oral, Nightly warfarin, 3 mg, oral, Daily-1800 albuterol HFA, 2 puff, inhalation, Q4H PRN (RT) sodium chloride 0.9%, 30 mL, intravenous, PRN HYDROmorphone, 0.2 mg, intravenous, Q2H PRN hydrOXYzine, 10 mg, oral, Q4H PRN LORazepam, 0.25 mg, oral, Q6H PRN ondansetron ODT, 4 mg, oral, Q6H PRN OR ondansetron, 4 mg, intravenous, Q6H PRN oxyCODONE, 7.5 mg, oral, Q4H PRN perflutren lipid (DEFINITY) 1.5 mL in sodium chloride 0.9% 10 mL syringe, 1-10 mL, intravenous, Once in imaging polyethylene glycol, 17 g, oral, Daily PRN prochlorperazine, 5 mg, intravenous, Q6H PRN sodium chloride 0.9%, 0.5-20 mL, intra-catheter, PRN sodium chloride 0.9%, 10-20 mL, intra-catheter, PRN sodium chloride 0.9%, 30 mL/hr, Last Rate: 30 mL/hr (11/25/24 1454) sodium chloride 0.9%, 30 mL/hr Vitals Most Recent Vitals: T 36.6 ??C (97.9 ??F), HR 88, BP 150/72, RR 18, SpO2 97 %. 24hr Min/Max: Temp Min: 36.5 ??C (97.7 ??F) Max: 36.6 ??C (97.9 ??F) Pulse Min: 70 Max: 88 BP Min: 134/74 Max: 150/72 Resp Min: 16 Max: 18 SpO2 Min: 96 % Max: 97 % No intake or output data in the 24 hours ending 11/29/24 1223 Net IO Since Admission: 2,505 mL [11/29/24 1223] Last Weight: 63.1 kg (139 lb 1.8 oz) (11/13/24 184). Admit Weight: 61.2 kg (135 lb). Last BM: Stool Occurrence Amount: Medium (11/26/24 0835) Physical Exam General: Not in distress, appears comfortable, pain scale 7/10 (spine, around T 10 level) HEENT: Normocephalic, no conjunctival pallor, no scleral icterus Cardiac: Normal rate; regular rhythm; audible S1 and S2 metallic click on aoritc area , rubs, or gallops; 2+ radial pulses; no LE edema; no JVD nor hepato- jugular reflux. Pulm: clear to auscultation bilaterally; no wheezes, rales, or rhonchi. Surgical site clean, local bruising, no active bleeding. Left with no dressing today. GI/Abd: Soft, nontender, non-distended MSK: Normal bulk and tone, no joint effusions or major deformities, chronic pain on spine. Bx site on T10 level without local bruising or hematoma. Presence of improvement of muscle strain on paravertebral area on T10-T12 levels worse on left side. Skin: bruises on left side of chest after pacemaker removal, dressing in place. Extremities: Warm and well perfused Neuro: AAO x 4, CN II-XII grossly intact, moves all extremities spontaneously Lines, Drains, Airways PICC Double Lumen 11/26/24 Non-tunneled Power #1 Red, #2 Purple, Right Basilic;Upper arm (Active) Peripheral IV 11/20/24 20 G Anterior;Right Forearm (Active) Labs/Diagnostic Review Na 139 (140) Cl 104 BUN 13 (14) K 3.7 (4.3) CO2 25 (25) Cr 1.61 (1.52) Mg - ( ), G (102) AST - ( ) ALT - ( ) Alk Phos - ( ) Ca 8.1 (8.5) TP - Alb - Total Bili: - ( ) Direct Bili: - ( ) \ Hgb 8.2 (7.8) / WBC 7.02 (6.11) -------- Plt 187 (168) / MCV 89.3 (88.9)\ INR 1.44 (Labs above are the most recent result obtained in the last 24 hours, followed by the 2nd to last lab in the past 3 days, if applicable. For additional labs/trends, see Epic.) Imaging Review No results found. Assessment & Plan Chronic midline thoracic back pain # C/f thoracic discitis / osteomyelitis Chronic back pain since 08/2024. Has had multiple CT scans for workup. Most recent CT thoracic spineshowed c/f discitis osteophyte complex at T10-11, saw NSGY as o/p, told to come to ED for further workup. Endorsing night sweats, 20 lb weight loss, intermittent BUE tingling. No incontinence. No IVDU. Hx of kyphoplasty few years ago to d/t L compression fracture. Hx of OM in foot / leg many years ago iso trauma. ESR/CRP high here. MRI total spine done and MSK IR bx on 11/17 with negative cultures. 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 Transitioned to Lovenox on 11/29 with NEGATIVE MELODY. Warfarin restarted on 11/26 with bridging ongoing. - Pain management with GLORY: tylenol 1g q6, robaxin 750mg q8, gabapentin 300mg TID (added on 11/22),Lidocaine patch; PRN: oxy 7.5mg q4 and dilaudid 0.2 IV q2 to breakthrough pain. - Bone pathology (11/17): positive for possible osteomyelitis or degenerative disease, ID recommended 6 weeks of Cef and Amp and further PO suppressive therapy for a year - Pending SNF placement - anticipate 12/02 - ESR/CRP 3 weeks (12/05) and 6 weeks(12/26) into treatment Bacteremia due to Enterococcus #Vegetation on pacemaker leads 1/2 BCx + E. faecalis on 11/13. Unclear source. 20lb weight loss over the last few months.Cardiac surgeon that follow patient was contacted (Dr. Adal Moore) and agree with the plan. TTE on 11/14 lVEF 67% no thrombus, mechanical mitral valve w/o dysfunction. NEVAEH completed on 11/19, possible vegetation on pacemaker leads. Consulted CTS and pacemaker removal on 11/25 at 14:50 without complications. 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 - Heparin (11/11 - 11/25) -> Bival (11/25-) -> Lovenox (11/29-) - Started bridge to coumadin on 11/26 Pacemaker infection See above - Removal of pacemaker on 11/25 - Continue antibiotic, followed by ID - Plan discharge considering antibiotic therapy for 6 weeks and suppression for a year Code status : Full Code Diet : Adult Diet Regular, Restricted; Vitamin K Consistent PT/OT recs : Ann Bangura MD PhD Internal Medicine PGY-2 11/29/2024 12:38 PM Cosigned by Baltazar Manzano MD at 11/30/2024 7:51 AM CDT Associated attestation - Baltazar Manzano MD - 11/30/2024 7:51 AM CDT Attending Documentation I have seen and examined the patient on 11/29/2024. I agree with the findings and plan of care as documented in the resident's/fellow's note. Supplementary Attestation My total encounter time on this service date was 30 minutes which was spent performing a dtbm-gr-rwly encounter and personally completing the provider-level activities documented in the note. This includes time spent prior to the visit and after the visit in direct care of the patient. This time does not include time spent in any separately reportable services. Baltazar Manzano MD * Lia Hernandez MD - 11/28/2024 10:12 AM CDT Daily Progress Note Firm Service Name: Kendal Cisneros : 1955 Today's Date: November 28, 2024 Age: 69 y.o. female Admit Date: 11/13/2024 Bed: [id number] LOS: 15 days Subjective Interval History - Patient stable, pain controled, surgical site clean. - On coumadin bridge since 11/26 with Bival IV until INR is at goal 2-3 - ID following recommended 6 weeks of ampicillin and ceftriaxone, and antibiotic suppression therapy after that for a year - SNF accepted patient, pending coumadin bridge Plan: - Continue Bival until INR is at goal 2-3 after coumadin was resumed - Pending coumadin bridge to discharge. Objective Scheduled Meds PRN Meds Infusions acetaminophen, 1,000 mg, oral, Q6H GLORY ampicillin, 2,000 mg, intravenous, Q6H GLORY [Held by Provider] carvediloL, 12.5 mg, oral, BID with meals (bkfst, dinner) cefTRIAXone, 2,000 mg, intravenous, Q12H GLORY famotidine, 40 mg, oral, Daily fluticasone propionate, 2 spray, each nostril, Daily akancapmpcg-atgurgxia-bodxkfyp, 1 puff, inhalation, Daily gabapentin, 300 mg, oral, TID lidocaine, 1 patch, transdermal, Q24H methocarbamoL, 750 mg, oral, TID rosuvastatin, 40 mg, oral, Daily sertraline, 100 mg, oral, Daily sodium chloride 0.9%, 0.5-20 mL, intra-catheter, Q8H GLORY sodium chloride 0.9%, 10-40 mL, intra-catheter, Q12H GLORY [Held by Provider] spironolactone, 25 mg, oral, Daily traZODone, 100 mg, oral, Nightly [START ON 12/01/2024] warfarin, 1.5 mg, oral, Once per day on Sunday [START ON 11/29/2024] warfarin, 3 mg, oral, Once per day on Sunday albuterol HFA, 2 puff, inhalation, Q4H PRN (RT) sodium chloride 0.9%, 30 mL, intravenous, PRN HYDROmorphone, 0.2 mg, intravenous, Q2H PRN hydrOXYzine, 10 mg, oral, Q4H PRN LORazepam, 0.25 mg, oral, Q6H PRN ondansetron ODT, 4 mg, oral, Q6H PRN OR ondansetron, 4 mg, intravenous, Q6H PRN oxyCODONE, 7.5 mg, oral, Q4H PRN perflutren lipid (DEFINITY) 1.5 mL in sodium chloride 0.9% 10 mL syringe, 1-10 mL, intravenous, Once in imaging polyethylene glycol, 17 g, oral, Daily PRN prochlorperazine, 5 mg, intravenous, Q6H PRN sodium chloride 0.9%, 0.5-20 mL, intra-catheter, PRN sodium chloride 0.9%, 10-20 mL, intra-catheter, PRN bivalirudin, 0-3 mg/kg/hr, Last Rate: 0.09 mg/kg/hr (11/28/24 0558) sodium chloride 0.9%, 30 mL/hr, Last Rate: 30 mL/hr (11/25/24 1459) sodium chloride 0.9%, 30 mL/hr Vitals Most Recent Vitals: T 36.5 ??C (97.7 ??F), HR 62, BP 127/66, RR 16, SpO2 95 %. 24hr Min/Max: Temp Min: 36.5 ??C (97.7 ??F) Max: 37.5 ??C (99.5 ??F) Pulse Min: 62 Max: 75 BP Min: 127/66 Max: 140/73 Resp Min: 16 Max: 17 SpO2 Min: 94 % Max: 95 % No intake or output data in the 24 hours ending 11/28/24 1017 Net IO Since Admission: 2,505 mL [11/28/24 1017] Last Weight: 63.1 kg (139 lb 1.8 oz) (11/13/24 1845). Admit Weight: 61.2 kg (135 lb). Last BM: Stool Occurrence Amount: Medium (11/26/24 0835) Physical Exam General: Not in distress, appears comfortable, pain scale 7/10 (spine, around T 10 level) HEENT: Normocephalic, no conjunctival pallor, no scleral icterus Cardiac: Normal rate; regular rhythm; audible S1 and S2 metallic click on aoritc area , rubs, or gallops; 2+ radial pulses; no LE edema; no JVD nor hepato- jugular reflux. Pulm: clear to auscultation bilaterally; no wheezes, rales, or rhonchi. Surgical site clean, local bruising, no active bleeding. Left with no dressing today. GI/Abd: Soft, nontender, non-distended MSK: Normal bulk and tone, no joint effusions or major deformities, chronic pain on spine. Bx site on T10 level without local bruising or hematoma. Presence of improvement of muscle strain on paravertebral area on T10-T12 levels worse on left side. Skin: bruises on left side of chest after pacemaker removal, dressing in place. Extremities: Warm and well perfused Neuro: AAO x 4, CN II-XII grossly intact, moves all extremities spontaneously Lines, Drains, Airways PICC Double Lumen 11/26/24 Non-tunneled Power #1 Red, #2 Purple, Right Basilic;Upper arm (Active) Peripheral IV 11/20/24 20 G Anterior;Right Forearm (Active) Labs/Diagnostic Review Na 140 (141) Cl 108 BUN 14 (14) K 4.3 (4.3) CO2 25 (25) Cr 1.70 (1.75) Mg - ( ), G (108) AST - ( ) ALT - ( ) Alk Phos - ( ) Ca 8.5 (8.4) TP - Alb - Total Bili: - ( ) Direct Bili: - ( ) \ Hgb 7.8 (7.7) / WBC 6.11 (6.4) -------- Plt 168 (173) / MCV 88.9 (88)\ INR 1.52 (Labs above are the most recent result obtained in the last 24 hours, followed by the 2nd to last lab in the past 3 days, if applicable. For additional labs/trends, see Epic.) Imaging Review No results found. Assessment & Plan Chronic midline thoracic back pain # C/f thoracic discitis / osteomyelitis Chronic back pain since 08/2024. Has had multiple CT scans for workup. Most recent CT thoracic spineshowed c/f discitis osteophyte complex at T10-11, saw NSGY as o/p, told to come to ED for further workup. Endorsing night sweats, 20 lb weight loss, intermittent BUE tingling. No incontinence. No IVDU. Hx of kyphoplasty few years ago to d/t L compression fracture. Hx of OM in foot / leg many years ago iso trauma. ESR/CRP high here. MRI total spine done and MSK IR bx on 11/17.Pending pathology and final cultures. 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 Discuss bridge to coumadin - Pain management with GLORY: tylenol 1g q6, robaxin 750mg q8, gabapentin 300mg TID (added on 11/22),Lidocaine patch; PRN: oxy 7.5mg q4 and dilaudid 0.2 IV q2 to breakthrough pain. - Bone pathology (11/17): positive for possible osteomyelitis or degenerative disease, ID recommended 6 weeks of Cef and Amp and further suppressive therapy for a year - Pending SNF placement after coumadin bridge is finalized. Bacteremia due to Enterococcus #Vegetation on pacemaker leads 07/10 BCx + E. faecalis on 11/13. Unclear source. 20lb weight loss over the last few months.Cardiac surgeon that follow patient was contacted (Dr. Adal Moore) and agree with the plan. TTE on 11/14 lVEF 67% no thrombus, mechanical mitral valve w/o dysfunction. NEVAEH completed on 11/19, possible vegetation on pacemaker leads. Consulted CTS and pacemaker removal on 11/25 at 14:50 without complications. - Bcx negative on 11/15 and 11/16 - Started Amp (11/14-) and Ceftriaxone (11/14 -) - MSK Bx with IR on 11/17, culture partial negative, Bx: osteomyelitis - Pacemaker removed on 11/25, pending cultures - ID recommended 6 weeks of Cef and Amp and further suppressive therapy for a year - Pending SNF placement after coumadin bridge is finalized. Osteomyelitis of thoracic spine (HCC) See above Pacemaker infection See above - Removal of pacemaker on 11/25 - Continue antibiotic, followed by ID - Plan discharge considering antibiotic therapy for 6 weeks and suppression for a year - Pending SNF placement after coumadin bridge is finalized. HIT (heparin-induced thrombocytopenia) Patinet found with decrease of > 30% in her baseline platelets (204 from admission to 140 last lab) and down trending HB with no apparent bleeding (8.8 from adcmission to 6.6 last lab) - HIT antibodies on 11/15 came back positive - Heparin (11/11 - 11/25) -> Bival started on 11/25 - Started bridge to coumadin on 11/26 - Peding final results Code status : Full Code Diet : Adult Diet Regular, Restricted; Vitamin K Consistent PT/OT recs : Lia Ye MD PGY1 Anesthesia 11/28/2024 10:17 AM Cosigned by Baltazar Manzano MD at 11/28/2024 12:53 PM CDT Associated attestation - Baltazar Manzano MD - 11/28/2024 12:53 PM CDT Attending Documentation I have seen and examined the patient on 11/28/24. I agree with the findings and plan of care as documented in the resident's/fellow's note. Supplementary Attestation My total encounter time on this service date was 30 minutes which was spent performing a [id number] encounter and personally completing the provider-level activities documented in the note. This includes time spent prior to the visit and after the visit in direct care of the patient. This time does not include time spent in any separately reportable services. Baltazar Manzano MD * Lia Hernandez MD - 11/27/2024 8:46 AM CDT Daily Progress Note Firm Service Name: Kendal Cisneros : 1955 Today's Date: November 27, 2024 Age: 69 y.o. female Admit Date: 11/13/2024 Bed: [id number] LOS: 14 days Subjective Interval History - Patient stable, pain controled, surgical site clean and no bleeding. - Started coumadin bridge on 11/26 with Bival IV until INR is at goal 2-3 - ID following recommended 6 weeks of ampicillin and ceftriaxone, and antibiotic suppression therapy after that for a year - health policy manager following for SNF - PICC line placed on 11/26 - Bone pathology compatible with possible osteomyelitis/ bone degenerative disease. Plan: - Continue Bival until INR is at goal 2-3 after coumadin was resumed - Pending cultures after pacemaker removal (11/25) - Discuss SNF Objective Scheduled Meds PRN Meds Infusions acetaminophen, 1,000 mg, oral, Q6H GLORY ampicillin, 2,000 mg, intravenous, Q6H GLORY [Held by Provider] carvediloL, 12.5 mg, oral, BID with meals (bkfst, dinner) cefTRIAXone, 2,000 mg, intravenous, Q12H GLORY famotidine, 40 mg, oral, Daily fluticasone propionate, 2 spray, each nostril, Daily bboxmrdivlk-rgxwkbktw-msmvsfax, 1 puff, inhalation, Daily gabapentin, 300 mg, oral, TID Lactated Ringer's, 500 mL, intravenous, Once lidocaine, 1 patch, transdermal, Q24H lidocaine, 1-2 mL, subcutaneous, Once methocarbamoL, 750 mg, oral, TID rosuvastatin, 40 mg, oral, Daily sertraline, 100 mg, oral, Daily sodium chloride 0.9%, 0.5-20 mL, intra-catheter, Q8H GLORY sodium chloride 0.9%, 10-40 mL, intra-catheter, Q12H GLORY [Held by Provider] spironolactone, 25 mg, oral, Daily traZODone, 100 mg, oral, Nightly warfarin, 1.5 mg, oral, Once per day on Sunday warfarin, 3 mg, oral, Once per day on Sunday albuterol HFA, 2 puff, inhalation, Q4H PRN (RT) sodium chloride 0.9%, 30 mL, intravenous, PRN HYDROmorphone, 0.2 mg, intravenous, Q2H PRN hydrOXYzine, 10 mg, oral, Q4H PRN LORazepam, 0.25 mg, oral, Q6H PRN ondansetron ODT, 4 mg, oral, Q6H PRN OR ondansetron, 4 mg, intravenous, Q6H PRN oxyCODONE, 7.5 mg, oral, Q4H PRN perflutren lipid (DEFINITY) 1.5 mL in sodium chloride 0.9% 10 mL syringe, 1-10 mL, intravenous, Once in imaging polyethylene glycol, 17 g, oral, Daily PRN prochlorperazine, 5 mg, intravenous, Q6H PRN sodium chloride 0.9%, 0.5-20 mL, intra-catheter, PRN sodium chloride 0.9%, 10-20 mL, intra-catheter, PRN bivalirudin, 0-3 mg/kg/hr, Last Rate: 0.08 mg/kg/hr (11/26/24 1717) sodium chloride 0.9%, 30 mL/hr, Last Rate: 30 mL/hr (11/25/24 1459) sodium chloride 0.9%, 30 mL/hr Vitals Most Recent Vitals: T 36.6 ??C (97.9 ??F), HR 76, BP 106/72, RR 18, SpO2 93 %. 24hr Min/Max: Temp Min: 36.6 ??C (97.9 ??F) Max: 37.1 ??C (98.8 ??F) Pulse Min: 72 Max: 76 BP Min: 106/72 Max: 108/66 Resp Min: 18 Max: 18 SpO2 Min: 93 % Max: 94 % Intake/Output Summary (Last 24 hours) at 11/27/2024 08 Last data filed at 11/27/2024 0533 Gross per 24 hour Intake 50 ml Output -- Net 50 ml Net IO Since Admission: 2,505 mL [11/27/24 0847] Last Weight: 63.1 kg (139 lb 1.8 oz) (11/13/24 184). Admit Weight: 61.2 kg (135 lb). Last BM: Stool Occurrence Amount: Medium (11/26/24 0835) Physical Exam General: Not in distress, appears comfortable, pain scale 7/10 (spine, around T 10 level) HEENT: Normocephalic, no conjunctival pallor, no scleral icterus Cardiac: Normal rate; regular rhythm; audible S1 and S2 metallic click on aoritc area , rubs, or gallops; 2+ radial pulses; no LE edema; no JVD nor hepato- jugular reflux. Pulm: clear to auscultation bilaterally; no wheezes, rales, or rhonchi. Surgical site clean, local bruising, no active bleeding. GI/Abd: Soft, nontender, non-distended MSK: Normal bulk and tone, no joint effusions or major deformities, chronic pain on spine. Bx site on T10 level without local bruising or hematoma. Presence of improvement of muscle strain on paravertebral area on T10-T12 levels worse on left side. Skin: bruises on left side of chest after pacemaker removal, dressing in place. Extremities: Warm and well perfused Neuro: AAO x 4, CN II-XII grossly intact, moves all extremities spontaneously Lines, Drains, Airways PICC Double Lumen 11/26/24 Non-tunneled Power #1 Red, #2 Purple, Right Basilic;Upper arm (Active) Peripheral IV 11/20/24 20 G Anterior;Right Forearm (Active) Labs/Diagnostic Review Na 141 (142) Cl 107 BUN 14 (10) K 4.3 (4.3) CO2 25 (23) Cr 1.75 (1.43) Mg 2.0 (2.1), G (70) AST 30 ( ) ALT 16 ( ) Alk Phos 91 ( ) Ca 8.4 (8.6) TP 6.7 Alb 3.3 Total Bili: <0.2 ( ) Direct Bili: <0.2 ( ) \ Hgb 7.7 (8.2) / WBC 6.40 (7.76) -------- Plt 173 (162) / MCV 88.0 (87.8)\ INR 1.65 (Labs above are the most recent result obtained in the last 24 hours, followed by the 2nd to last lab in the past 3 days, if applicable. For additional labs/trends, see Epic.) Imaging Review No results found. Assessment & Plan Chronic midline thoracic back pain # C/f thoracic discitis / osteomyelitis Chronic back pain since 08/2024. Has had multiple CT scans for workup. Most recent CT thoracic spineshowed c/f discitis osteophyte complex at T10-11, saw NSGY as o/p, told to come to ED for further workup. Endorsing night sweats, 20 lb weight loss, intermittent BUE tingling. No incontinence. No IVDU. Hx of kyphoplasty few years ago to d/t L compression fracture. Hx of OM in foot / leg many years ago iso trauma. ESR/CRP high here. MRI total spine done and MSK IR bx on 11/17.Pending pathology and final cultures. 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 Discuss bridge to coumadin - Pain management with GLORY: tylenol 1g q6, robaxin 750mg q8, gabapentin 300mg TID (added on 11/22),Lidocaine patch; PRN: oxy 7.5mg q4 and dilaudid 0.2 IV q2 to breakthrough pain. - Bone pathology (11/17): positive for possible osteomyelitis or degenerative disease, ID recommended 6 weeks of Cef and Amp and further suppressive therapy for a year Bacteremia due to Enterococcus #Vegetation on pacemaker leads / BCx + E. faecalis on 11/13. Unclear source. 20lb weight loss over the last few months.Cardiac surgeon that follow patient was contacted (Dr. Adal Moore) and agree with the plan. TTE on 11/14 lVEF 67% no thrombus, mechanical mitral valve w/o dysfunction. NEVAEH completed on 11/19, possible vegetation on pacemaker leads. Consulted CTS and pacemaker removal on 11/25 at 14:50 without complications. - Bcx negative on 11/15 and 11/16 - Started Amp (11/14-) and Ceftriaxone (11/14 -) - MSK Bx with IR on 11/17, culture partial negative, Bx: osteomyelitis - Pacemaker removed on 11/25, pending cultures - ID recommended 6 weeks of Cef and Amp and further suppressive therapy for a year Pacemaker (Resolved: 11/27/2024) #AVR (inspiris resilia, 2019) #Pacemaker ([employer] 2015) - REMOVED on 11/25 #pAF on Coumadin, now on heparin drip until pacemaker removal #LVEF 67% (11/14/24) Hx severe s/p AVR placement in and replacement of mechanical AV in 2021. Previously on ECMO reuqiring Mitral valve repair. 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, bridge to coumadin started on 11/26 - GDMT: on hold coreg (hypotension) and spironolactone (worsening of kidney function and hypotension) Osteomyelitis of thoracic spine (HCC) See above Pacemaker infection See above - Removal of pacemaker on 11/25 - Continue antibiotic, followed by ID - Plan discharge considering antibiotic therapy for 6 weeks and suppression for a year HIT (heparin-induced thrombocytopenia) Patinet found with decrease of > 30% in her baseline platelets (204 from admission to 140 last lab) and down trending HB with no apparent bleeding (8.8 from adcmission to 6.6 last lab) - HIT antibodies on 11/15 came back positive - Heparin (11/11 - 11/25) -> Bival started on 11/25 - Started bridge to coumadin on 11/26 Code status : Full Code Diet : Adult Diet Regular, Restricted; Vitamin K Consistent PT/OT recs : Lia Ye MD PGY1 Anesthesia 11/27/2024 8:47 AM Cosigned by Baltazar Manzano MD at 11/27/2024 12:58 PM CDT Associated attestation - Baltazar Manzano MD - 11/27/2024 12:58 PM CDT Attending Documentation I have seen and examined the patient on 11/27/24. I agree with the findings and plan of care as documented in the resident's/fellow's note. Supplementary Attestation My total encounter time on this service date was 30 minutes which was spent performing a [id number] encounter and personally completing the provider-level activities documented in the note. This includes time spent prior to the visit and after the visit in direct care of the patient. This time does not include time spent in any separately reportable services. Baltazar Manzano MD * Lia Hernandez MD - 11/26/2024 8:30 AM CDT Daily Progress Note Firm Service Name: Kendal Cisneros : 1955 Today's Date: November 26, 2024 Age: 69 y.o. female Admit Date: 11/13/2024 Bed: [id number] LOS: 13 days Subjective Interval History - Patient had pacemaker removed on 11/25 without complications, report controlled pain in the site of surgery. - Resume diet. - Pending PICC line and bridge to coumadin Plan: - On bival due to suspected HIT - Transition to coumadin after PICC line placement - Consult vascular team for PICC line - Discuss antibiotic through Home infusion and plan discharge as soon as coumadin bridge is completed - Pending cultures after pacemaker removal (11/25) Objective Scheduled Meds PRN Meds Infusions acetaminophen, 1,000 mg, oral, Q6H GLORY ampicillin, 2,000 mg, intravenous, Q6H GLORY [Held by Provider] carvediloL, 12.5 mg, oral, BID with meals (bkfst, dinner) cefTRIAXone, 2,000 mg, intravenous, Q12H GLORY famotidine, 40 mg, oral, Daily fluticasone propionate, 2 spray, each nostril, Daily urcmbztibqr-qhttmwcgx-ithzgefo, 1 puff, inhalation, Daily gabapentin, 300 mg, oral, TID lidocaine, 1 patch, transdermal, Q24H lidocaine, 1-2 mL, subcutaneous, Once methocarbamoL, 750 mg, oral, TID rosuvastatin, 40 mg, oral, Daily sertraline, 100 mg, oral, Daily sodium chloride 0.9%, 0.5-20 mL, intra-catheter, Q8H GLORY sodium chloride 0.9%, 10-40 mL, intra-catheter, Q12H GLORY [Held by Provider] spironolactone, 25 mg, oral, Daily traZODone, 100 mg, oral, Nightly albuterol HFA, 2 puff, inhalation, Q4H PRN (RT) sodium chloride 0.9%, 30 mL, intravenous, PRN heparin, 2,000 Units, intravenous, Q6H PRN OR heparin, 3,000 Units, intravenous, Q6H PRN HYDROmorphone, 0.2 mg, intravenous, Q2H PRN hydrOXYzine, 10 mg, oral, Q4H PRN hydrOXYzine, 25 mg, oral, Once PRN LORazepam, 0.25 mg, oral, Q6H PRN ondansetron ODT, 4 mg, oral, Q6H PRN OR ondansetron, 4 mg, intravenous, Q6H PRN oxyCODONE, 7.5 mg, oral, Q4H PRN perflutren lipid (DEFINITY) 1.5 mL in sodium chloride 0.9% 10 mL syringe, 1-10 mL, intravenous, Once in imaging polyethylene glycol, 17 g, oral, Daily PRN prochlorperazine, 5 mg, intravenous, Q6H PRN sodium chloride 0.9%, 0.5-20 mL, intra-catheter, PRN sodium chloride 0.9%, 10-20 mL, intra-catheter, PRN bivalirudin, 0-3 mg/kg/hr, Last Rate: 0.08 mg/kg/hr (11/26/24 0720) sodium chloride 0.9%, 30 mL/hr, Last Rate: 30 mL/hr (11/25/24 1459) sodium chloride 0.9%, 30 mL/hr Vitals Most Recent Vitals: T 36.5 ??C (97.7 ??F), HR 72, BP 121/70, RR 18, SpO2 93 %. 24hr Min/Max: Temp Min: 36 ??C (96.8 ??F) Max: 37 ??C (98.6 ??F) Pulse Min: 67 Max: 102 BP Min: 108/65 Max: 161/100 Resp Min: 5 Max: 27 SpO2 Min: 87 % Max: 100 % Intake/Output Summary (Last 24 hours) at 11/26/2024 08 Last data filed at 11/26/2024 0415 Gross per 24 hour Intake 1510 ml Output 355 ml Net 1155 ml Net IO Since Admission: 2,455 mL [11/26/24835] Last Weight: 63.1 kg (139 lb 1.8 oz) (11/13/241844). Admit Weight: 61.2 kg (135 lb). Last BM: Stool Occurrence Amount: Medium (11/20/24 0533) Physical Exam General: Not in distress, appears comfortable, pain scale 7/10 (spine, around T 10 level) HEENT: Normocephalic, no conjunctival pallor, no scleral icterus Cardiac: Normal rate; regular rhythm; audible S1 and S2 metallic click on mitral area , rubs, or gallops; 2+ radial pulses; no LE edema; no JVD nor hepato- jugular reflux. Pulm: clear to auscultation bilaterally; no wheezes, rales, or rhonchi. Surgical site with dressing, local bruising and no active bleeding. GI/Abd: Soft, nontender, non-distended MSK: Normal bulk and tone, no joint effusions or major deformities, chronic pain on spine. Bx site on T10 level without local bruising or hematoma. Presence of improvement of muscle strain on paravertebral area on T10-T12 levels worse on left side. Skin: bruises on left side of chest after pacemaker removal, dressing in place. Extremities: Warm and well perfused Neuro: AAO x 4, CN II-XII grossly intact, moves all extremities spontaneously Lines, Drains, Airways Peripheral IV 11/13/24 20 G Left;Posterior Hand (Active) Peripheral IV 11/20/24 20 G Anterior;Right Forearm (Active) Peripheral IV 11/25/24 16 G Right Hand (Active) Labs/Diagnostic Review Na 142 (145) Cl 110 BUN 10 (9) K 4.3 (3.9) CO2 23 (21) Cr 1.43 (1.22) Mg 2.0 (2.1), G (74) AST 30 ( ) ALT 16 ( ) Alk Phos 91 ( ) Ca 8.6 (8) TP 6.7 Alb 3.3 Total Bili: <0.2 ( ) Direct Bili: <0.2 ( ) \ Hgb 8.2 (8.5) / WBC 7.76 (4.03) -------- Plt 162 (136) / MCV 87.8 (86.4)\ INR 1.21 (Labs above are the most recent result obtained in the last 24 hours, followed by the 2nd to last lab in the past 3 days, if applicable. For additional labs/trends, see Epic.) Imaging Review No results found. Assessment & Plan Chronic midline thoracic back pain # C/f thoracic discitis / osteomyelitis Chronic back pain since 08/2024. Has had multiple CT scans for workup. Most recent CT thoracic spineshowed c/f discitis osteophyte complex at T10-11, saw NSGY as o/p, told to come to ED for further workup. Endorsing night sweats, 20 lb weight loss, intermittent BUE tingling. No incontinence. No IVDU. Hx of kyphoplasty few years ago to d/t L compression fracture. Hx of OM in foot / leg many years ago iso trauma. ESR/CRP high here. MRI total spine done and MSK IR bx on 11/17.Pending pathology and final cultures. 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 Discuss bridge to coumadin - Pain management with GLORY: tylenol 1g q6, robaxin 750mg q8, gabapentin 300mg TID (added on 11/22),Lidocaine patch; PRN: oxy 7.5mg q4 and dilaudid 0.2 IV q2 to breakthrough pain. Bacteremia due to Enterococcus #Vegetation on pacemaker leads 1/2 BCx + E. faecalis on 11/13. Unclear source. 20lb weight loss over the last few months. - Bcx negative on 11/15 and pending 11/16 - Started Amp (11/14-) and Ceftriaxone (11/14 -) - TTE on 11/14 lVEF 67% no thrombus, mechanical mitral valve w/o dysfunction - NEVAEH completed on 11/19, possible vegetation on pacemaker leads - MSK Bx with IR on 11/17, pending culture and pathology - ID consult appreciate recs, last blood culture on 11/16. After NEVAEH indicated pacemaker removal - Consulted CTS for pacemaker removal on 11/25 at 14:50 - Cardiac surgeon that follow patient was contacted (Dr. Adal Moore) and agree with the plan - Consult IPAP on 11/21 for pre-op evaluation no additional testing, cleared for procedure - Pacemaker removed on 11/25, pending cultures Pacemaker #AVR (inspiris resilia, 2019) #Pacemaker ([employer] 2015) #pAF on Coumadin, now on heparin drip until pacemaker removal #LVEF 67% (11/14/24) Hx severe s/p AVR placement in and replacement of mechanical AV in 2021. Previously on ECMO reuqiring Mitral valve repair. - Warfarin -> hep gtt in preparation for IR bx on 11/17 - GDMT: on hold coreg (hypotension) and spironolactone (worsening of kidney function and hypotension) Osteomyelitis of thoracic spine (HCC) See above Pacemaker infection See above - Planning pacemaker removal for next week by CTS - Continue antibiotic, followed by ID - Consult vascular team on 11/26 for PICC line - Plan home infusion for antibiotics HIT (heparin-induced thrombocytopenia) Patinet found with decrease of > 30% in her baseline platelets (204 from admission to 140 last lab) and down trending HB with no apparent bleeding (8.8 from adcmission to 6.6 last lab) - HIT antibodies on 11/15 came back positive - Heparin (11/11 - 11/25) -> Bival started on 11/25 - Discuss bridge to coumadin Code status : Full Code Diet : Adult Diet Regular PT/OT recs : Lia Ye MD PGY1 Anesthesia 11/26/2024 8:36 AM Cosigned by Baltazar Manzano MD at 11/26/2024 9:21 PM CDT Associated attestation - Baltazar Manzano MD - 11/26/2024 9:21 PM CDT Attending Documentation I have seen and examined the patient on 11/26/24. I agree with the findings and plan of care as documented in the resident's/fellow's note. Supplementary Attestation Today, I am treating the patient for bacteremia, device infection, vertebral osteomyelitis which isin severe exacerbation, progression, or experiencing treatment side effects as evidenced by need for pacemaker removal, IV antibiotics, as described in the note. Reviewed records from the following unique sources (external institutions or providers from different services): ID c/s 11/26 who recommended ampicillin & ceftriaxone with anticipated stop date of01/06/25. The patient is being intensively monitored for drug toxicity from ceftriaxone and ampicillin by checking CBC, CMP. Baltazar Manzano MD * Lia Hernandez MD - 11/25/2024 10:14 AM CDT Daily Progress Note Firm Service Name: Kendal Cisneros : 1955 Today's Date: November 25, 2024 Age: 69 y.o. female Admit Date: 11/13/2024 Bed: [id number] LOS: 12 days Subjective Interval History - Patient reports no pian today, good sleep and is NPO for procedure this afternoon. - Noticed new drop in Platelets and Hb, last one 6.6, there is a concern for HIT - Patient consented for blood transfusion today, will receive 1 pRBC - HIT antibodies ordered today and came back [positive Plan: - On hepatin gtt that was discontinued today at 10am due to HIT - Surgical team communicated about HIT and asked to d/c heparin this morning, after procedure we will start bival. - Pacemaker removal 11/25 at 14:50 - Continue pain management - Transfuse 1 pRBC this morning, check CBC at 13:00 and ordered to prepared another unit of RBC in case it is needed Objective Scheduled Meds PRN Meds Infusions acetaminophen, 1,000 mg, oral, Q6H GLORY ampicillin, 2,000 mg, intravenous, Q6H GLORY [Held by Provider] carvediloL, 12.5 mg, oral, BID with meals (bkfst, dinner) cefTRIAXone, 2,000 mg, intravenous, Q12H GLORY famotidine, 40 mg, oral, Daily fluticasone propionate, 2 spray, each nostril, Daily qsmhmsfchjb-ggaapzijp-rfgoervu, 1 puff, inhalation, Daily gabapentin, 300 mg, oral, TID lidocaine, 1 patch, transdermal, Q24H methocarbamoL, 750 mg, oral, TID rosuvastatin, 40 mg, oral, Daily sertraline, 100 mg, oral, Daily sodium chloride 0.9%, 0.5-20 mL, intra-catheter, Q8H GLORY [Held by Provider] spironolactone, 25 mg, oral, Daily traZODone, 100 mg, oral, Nightly albuterol HFA, 2 puff, inhalation, Q4H PRN (RT) sodium chloride 0.9%, 30 mL, intravenous, PRN heparin, 2,000 Units, intravenous, Q6H PRN OR heparin, 3,000 Units, intravenous, Q6H PRN HYDROmorphone, 0.2 mg, intravenous, Q2H PRN hydrOXYzine, 10 mg, oral, Q4H PRN LORazepam, 0.25 mg, oral, Q6H PRN ondansetron ODT, 4 mg, oral, Q6H PRN OR ondansetron, 4 mg, intravenous, Q6H PRN oxyCODONE, 7.5 mg, oral, Q4H PRN perflutren lipid (DEFINITY) 1.5 mL in sodium chloride 0.9% 10 mL syringe, 1-10 mL, intravenous, Once in imaging polyethylene glycol, 17 g, oral, Daily PRN prochlorperazine, 5 mg, intravenous, Q6H PRN sodium chloride 0.9%, 0.5-20 mL, intra-catheter, PRN [Held by Provider] heparin, 0-33 Units/kg/hr, Last Rate: Stopped (11/25/24 6155) sodium chloride 0.9%, 30 mL/hr, Last Rate: 30 mL/hr (11/19/24 1216) Vitals Most Recent Vitals: T 36.5 ??C (97.7 ??F), HR 74, BP 144/75, RR 16, SpO2 100 %. 24hr Min/Max: Temp Min: 36.5 ??C (97.7 ??F) Max: 36.6 ??C (97.9 ??F) Pulse Min: 55 Max: 79 BP Min: 91/60 Max: 144/75 Resp Min: 16 Max: 16 SpO2 Min: 96 % Max: 100 % No intake or output data in the 24 hours ending 11/25/24 1014 Net IO Since Admission: 1,300 mL [11/25/24 1014] Last Weight: 63.1 kg (139 lb 1.8 oz) (11/13/24 184). Admit Weight: 61.2 kg (135 lb). Last BM: Stool Occurrence Amount: Medium (11/20/24 0533) Physical Exam General: Not in distress, appears comfortable, pain scale 7/10 (spine, around T 10 level) HEENT: Normocephalic, no conjunctival pallor, no scleral icterus Cardiac: Normal rate; regular rhythm; audible S1 and S2 metallic click on mitral area , rubs, or gallops; 2+ radial pulses; no LE edema; no JVD nor hepato- jugular reflux Pulm: clear to auscultation bilaterally; no wheezes, rales, or rhonchi. Pacemaker on the left side of chest. GI/Abd: Soft, nontender, non-distended MSK: Normal bulk and tone, no joint effusions or major deformities, chronic pain on spine. Bx site on T10 level without local bruising or hematoma. Presence of improvement of muscle strain on paravertebral area on T10-T12 levels worse on left side. Skin: No rash or bruises Extremities: Warm and well perfused Neuro: AAO x 4, CN II-XII grossly intact, moves all extremities spontaneously Lines, Drains, Airways Peripheral IV 11/13/24 20 G Left;Posterior Hand (Active) Peripheral IV 11/20/24 20 G Anterior;Right Forearm (Active) Labs/Diagnostic Review Na 141 (141) Cl 106 BUN 13 (13) K 3.6 (4) CO2 26 (25) Cr 1.38 (1.56) Mg 2.1 (2.2), G (98) AST - ( ) ALT - ( ) Alk Phos - ( ) Ca 8.5 (8.9) TP - Alb - Total Bili: - ( ) Direct Bili: - ( ) \ Hgb 6.6 (7.2) / WBC 4.38 (5.5) -------- Plt 142 (170) / MCV 88.2 (88)\ INR 1.24 (Labs above are the most recent result obtained in the last 24 hours, followed by the 2nd to last lab in the past 3 days, if applicable. For additional labs/trends, see Epic.) Imaging Review No results found. Assessment & Plan Chronic midline thoracic back pain # C/f thoracic discitis / osteomyelitis Chronic back pain since 08/2024. Has had multiple CT scans for workup. Most recent CT thoracic spineshowed c/f discitis osteophyte complex at T10-11, saw NSGY as o/p, told to come to ED for further workup. Endorsing night sweats, 20 lb weight loss, intermittent BUE tingling. No incontinence. No IVDU. Hx of kyphoplasty few years ago to d/t L compression fracture. Hx of OM in foot / leg many years ago iso trauma. ESR/CRP high here. MRI total spine done and MSK IR bx on 11/17.Pending pathology and final cultures. - NSGY signed off on 11/18 as there is no epidural extension or cor compression (MRI report) - Hold warfarin (11/11-) -> heparin gtt for 11/17 IR bx, resumed after - Pain management with GLORY: tylenol 1g q6, robaxin 750mg q8, gabapentin 300mg TID (added on 11/22),Lidocaine patch; PRN: oxy 7.5mg q4 and dilaudid 0.2 IV q2 to breakthrough pain. Bacteremia due to Enterococcus #Vegetation on pacemaker leads 07/10 BCx + E. faecalis on 11/13. Unclear source. 20lb weight loss over the last few months. - Bcx negative on 11/15 and pending 11/16 - Started Amp (11/14-) and Ceftriaxone (11/14 -) - TTE on 11/14 lVEF 67% no thrombus, mechanical mitral valve w/o dysfunction - NEVAEH completed on 11/19, possible vegetation on pacemaker leads - MSK Bx with IR on 11/17, pending culture and pathology - ID consult appreciate recs, last blood culture on 11/16. After NEVAEH indicated pacemaker removal - Consulted CTS for pacemaker removal on 11/25 at 14:50 - Cardiac surgeon that follow patient was contacted (Dr. Adal Moore) and agree with the plan - Consult IPAP on 11/21 for pre-op evaluation no additional testing, cleared for procedure Pacemaker #AVR (inspiris resilia, 2019) #Pacemaker ([employer] 2015) #pAF on Coumadin, now on heparin drip until pacemaker removal #LVEF 67% (11/14/24) Hx severe s/p AVR placement in and replacement of mechanical AV in 2021. Previously on ECMO reuqiring Mitral valve repair. - Warfarin -> hep gtt in preparation for IR bx on 11/17 - GDMT: on hold coreg (hypotension) and spironolactone (worsening of kidney function and hypotension) Osteomyelitis of thoracic spine (HCC) See above Pacemaker infection See above - Planning pacemaker removal for next week by CTS - Continue antibiotic, followed by ID HIT (heparin-induced thrombocytopenia) Patinet found with decrease of > 30% in her baseline platelets (204 from admission to 140 last lab) and down trending HB with no apparent bleeding (8.8 from adcmission to 6.6 last lab) - HIT antibodies on 11/15 came back positive - Contacted surgical team and heparin will be d/c now and after procedure we will start bival. Code status : Full Code Diet : NPO Diet NPO Diet PT/OT recs : Lia Ye MD PGY1 Anesthesia 11/25/2024 10:14 AM Cosigned by Baltazar Manzano MD at 11/25/2024 7:14 PM CDT Associated attestation - Baltazar Manzano MD - 11/25/2024 7:14 PM CDT Attending Documentation I have seen and examined the patient on 11/25/24. I agree with the findings and plan of care as documented in the resident's/fellow's note. Supplementary Attestation Today, I am treating the patient for bacteremia, thoracic discitis and osteomyelitis which is in severe exacerbation, progression, or experiencing treatment side effects as evidenced by need for pacemaker removal, ID consult, IV antibtioics, as described in the note. Reviewed records from the following unique sources (external institutions or providers from different services): CT surgery consult 11/24. The patient is being intensively monitored for drug toxicity from ceftriaxone and ampicillin by checking CBC and BMP. Baltazar Manzano MD * Shelly Molina NP - 11/24/2024 3:27 PM CDT Cardiac Surgery Daily Progress * No surgery found * SUBJECTIVE Chief complaint of back pain. Interval History: Still c/o intermittent back pain. Denies cardiac symptoms. NEVAEH last week with mobile linear echodensity attached to the device lead in the RA, mech AVR with normal motion, no e/o AVveg, mod-severe TR, no e/o TV veg, s/p MV repair with annuloplasty ring-no e/o MV veg, mod MR, normal LV function, dilated RV with normal RV function. From EP note: Device Interrogation Generator: [employer] Quadra Allure MP [id number] ICT CUSTOMER SUPPORT OFFICER-P implanted 09.26.2023 Right atrial lead: [employer] Tendril STS [id number] implanted 08.16.2015; pacing 91% Right ventricular:[employer] Tendril STS [id number]-52 implanted 08.16.2015; pacing >99% Left ventricular: [employer] Quartet [id number] implanted 08.16.2015; pacing >99% Lead impedance, sensing and pacing capture thresholds are stable Battery longevity: 5.4-5.9 years High Rate Episodes: none Underlying rhythm: NSR 60s OBJECTIVE Current Facility-Administered Medications: acetaminophen (TYLENOL) tablet 1,000 mg, 1,000 mg, oral, Q6H [facility], Lia Hernandez MD, 1,000 mg at 11/24/24 1222 albuterol HFA (PROVENTIL HFA,VENTOLIN HFA,PROAIR HFA) 90 mcg/actuation inhaler 2 puff, 2 puff, inhalation, Q4H PRN (RT), Eliane Feng NP ampicillin 2,000 mg/60 mL in sterile water IVPB (premix) 2,000 mg, 2,000 mg, intravenous, Q6H GLORY, Lia Hernandez MD, Last Rate: 120 mL/hr at 11/24/24 1127, 2,000 mg at 11/24/24 1127 Carrier Fluids for Secondary Infusion - 0.9% Sodium Chloride, 30 mL, intravenous, PRN, HollyM. Feng NP [Held by Provider] carvediloL (COREG) tablet 12.5 mg, 12.5 mg, oral, BID with meals (bkfst, dinner), Eliane Feng NP, 12.5 mg at 11/13/24 1711 cefTRIAXone (ROCEPHIN) 2,000 mg/20 mL in sterile water (premix) 2,000 mg, 2,000 mg, intravenous, Q12H GLORY, Kandis Spencer MD, 2,000 mg at 11/24/24 0915 famotidine (PEPCID) tablet 40 mg, 40 mg, oral, Daily, Eliane Feng NP, 40 mg at 11/24/24 0915 fluticasone propionate (FLONASE) 50 mcg/actuation nasal spray 2 spray, 2 spray, each nostril, Daily, Eliane Feng, JULIETA, 2 spray at 11/23/24 0800 ujlbswkowca-rcyughhgf-ayyesfmh (TRELEGY ELLIPTA) 200-62.5-25 mcg inhaler 1 puff, 1 puff, inhalation, Daily, Kandis Spencer MD, 1 puff at 11/21/24 0827 gabapentin (NEURONTIN) capsule 300 mg, 300 mg, oral, TID, Lia Hernandez MD, 300 mg at 11/24/24 0915 heparin 1,000 unit/mL injection 2,000 Units, 2,000 Units, intravenous, Q6H PRN OR heparin 1,000unit/mL injection 3,000 Units, 3,000 Units, intravenous, Q6H PRN, Sher Adams MD heparin in 0.45% sodium chloride 25,000 units/250 mL (100 units/mL) infusion (premix), 0-33 Units/kg/hr, intravenous, Titrated, Layla Nava MD, Last Rate: 10.73 mL/hr at 11/23/24 2210, 17 Units/kg/hr at 11/23/24 2210 HYDROmorphone (DILAUDID) injection 0.2 mg, 0.2 mg, intravenous, Q2H PRN, Lia Hernandez MD hydrOXYzine (ATARAX) tablet 10 mg, 10 mg, oral, Q4H PRN, Ann Bangura MD, 10 mg at 11/24/24 1333 lidocaine (LIDODERM) 5 % patch 1 patch, 1 patch, transdermal, Q24H, Layla Nava MD, 1 patchat 11/23/24 2142 LORazepam (ATIVAN) tablet 0.25 mg, 0.25 mg, oral, Q6H PRN, Ann Bangura MD methocarbamoL (ROBAXIN) tablet 750 mg, 750 mg, oral, TID, Lia Hernandez MD, 750 mg at 11/24/24 0915 ondansetron ODT (ZOFRAN-ODT) disintegrating tablet 4 mg, 4 mg, oral, Q6H PRN, 4 mg at 11/17/24 0607OR ondansetron (ZOFRAN) injection 4 mg, 4 mg, intravenous, Q6H PRN, Lia Hernandez MD, 4 mg at 11/20/24 1122 oxyCODONE (ROXICODONE) tablet 7.5 mg, 7.5 mg, oral, Q4H PRN, Lia Hernandez MD, 7.5 mg at 11/23/24 1926 perflutren lipid (DEFINITY) 1.5 mL in sodium chloride 0.9% 10 mL syringe, 1-10 mL, intravenous, Once in imaging, Kandis Spencer MD polyethylene glycol (MIRALAX) packet 17 g, 17 g, oral, Daily PRN, Eliane Feng, BOX PRINTER prochlorperazine (COMPAZINE) injection 5 mg, 5 mg, intravenous, Q6H PRN, Lia Hernandez MD rosuvastatin (CRESTOR) tablet 40 mg, 40 mg, oral, Daily, Eliane Feng, BOX PRINTER, 40 mg at 11/24/24 0915 sertraline (ZOLOFT) tablet 100 mg, 100 mg, oral, Daily, Eliane Feng, BOX PRINTER, 100 mg at 11/24/24 0915 sodium chloride 0.9% flush 0.5-20 mL, 0.5-20 mL, intra-catheter, Q8H GLORY, Eliane Feng, JULIETA, 10 mL at 11/23/24 2148 sodium chloride 0.9% flush 0.5-20 mL, 0.5-20 mL, intra-catheter, PRN, Eliane Feng, JULIETA sodium chloride 0.9% infusion, 30 mL/hr, intravenous, Continuous, Calvin Benjamin MD, Last Rate: 30 mL/hr at 11/19/24 1216, 30 mL/hr at 11/19/24 1216 [Held by Provider] spironolactone (ALDACTONE) tablet 25 mg, 25 mg, oral, Daily, Eliane Feng NP traZODone (DESYREL) tablet 100 mg, 100 mg, oral, Nightly, Eliane Feng, BOX PRINTER, 100 mg at 11/23/24 2140 Vitals: 24hr Min/Max: Temp Min: 36.4 ??C (97.5 ??F) Max: 36.7 ??C (98.1 ??F) Pulse Min: 89 Max: 90 BP Min: 112/53 Max: 120/56 Resp Min: 16 Max: 16 SpO2 Min: 94 % Max: 96 % Most Recent : Vitals: 11/24/24 0835 BP: 120/56 Pulse: 89 Resp: 16 Temp: 36.4 ??C (97.5 ??F) SpO2: 96% No intake/output data recorded. No intake/output data recorded. Physical Exam: Physical Exam Vitals reviewed. Constitutional: General: She is not in acute distress. Appearance: She is well-developed. HENT: Head: Normocephalic and atraumatic. Nose: Nose normal. Mouth/Throat: Mouth: Mucous membranes are moist. Eyes: Conjunctiva/sclera: Conjunctivae normal. Pupils: Pupils are equal, round, and reactive to light. Cardiovascular: Rate and Rhythm: Normal rate and regular rhythm. Heart sounds: Murmur heard. No friction rub. No gallop. Comments: II/ systolic murmur AV mech click Sternotomy incision well-healed CARLITA chest pacemaker site well-healed. Pulmonary: Effort: Pulmonary effort is normal. Breath sounds: Normal breath sounds. Abdominal: General: Bowel sounds are normal. There is no distension. Palpations: Abdomen is soft. Tenderness: There is no abdominal tenderness. Musculoskeletal: General: No swelling. Normal range of motion. Cervical back: Neck supple. Skin: General: Skin is warm and dry. Neurological: General: No focal deficit present. Mental Status: She is alert and oriented to person, place, and time. Psychiatric: Mood and Affect: Mood normal. Behavior: Behavior normal. Thought Content: Thought content normal. Lab/Radiology/Diagnostic Review: Laboratory review: Lab results in the last 24 hours: Recent Results (from the past 24 hours) Heparin anti factor Xa activity Collection Time: 11/23/24 9:58 PM Result Value Ref Range Anti Factor Xa 0.50 IUnits/mL Basic metabolic panel Collection Time: 11/23/24 9:58 PM Result Value Ref Range Sodium 141 135 - 145 mmol/L Potassium, pl 4.0 3.3 - 4.9 mmol/L Chloride 106 97 - 110 mmol/L CO2 25 22 - 32 mmol/L Anion gap 10 2 - 15 mmol/L BUN 13 6 - 25 mg/dL Creatinine 1.56 (H) 0.60 - 1.10 mg/dL Glucose 98 70 - 199 mg/dL Calcium 8.9 8.5 - 10.3 mg/dL CBC with auto differential Collection Time: 11/23/24 9:58 PM Result Value Ref Range WBC 5.50 3.80 - 9.90 K/cumm Hgb 7.2 (L) 11.9 - 15.5 g/dL Hct 23.5 (L) 35.6 - 45.5 % Plt 170 150 - 400 K/cumm MPV 11.6 9.1 - 12.3 fL RBC 2.67 (L) 3.90 - 5.20 M/cumm MCV 88.0 81.3 - 96.4 fL MCH 27.0 (L) 27.1 - 33.3 pg MCHC 30.6 (L) 32.3 - 35.7 g/dL RDW CV 16.1 (H) 11.1 - 14.9 % RDW SD 50.2 (H) 35.7 - 48.1 fL NRBC abs 0.00 0.00 - 0.01 K/cumm Magnesium Collection Time: 11/23/24 9:58 PM Result Value Ref Range Magnesium 2.2 1.4 - 2.5 mg/dL Differential, auto Collection Time: 11/23/24 9:58 PM Result Value Ref Range Neutrophil abs 3.71 1.50 - 6.50 K/cumm Imm gran abs 0.01 0.00 - 0.10 K/cumm Lymphocyte abs 1.20 0.80 - 3.30 K/cumm Monocyte abs 0.35 0.20 - 0.80 K/cumm Eosinophil abs 0.19 0.00 - 0.50 K/cumm Basophil abs 0.04 0.00 - 0.10 K/cumm Neutrophil pct 67.4 % Imm gran pct 0.2 % Lymphocyte pct 21.8 % Monocyte pct 6.4 % Eosinophil pct 3.5 % Basophil pct 0.7 % aPTT Collection Time: 11/23/24 9:58 PM Result Value Ref Range aPTT 73 (H) 28 - 38 sec Protime-INR Collection Time: 11/23/24 9:58 PM Result Value Ref Range PT 13.5 (H) 9.7 - 13.0 sec INR 1.24 (H) 0.90 - 1.20 eGFR Collection Time: 11/23/24 9:58 PM Result Value Ref Range eGFR 36 (L) >=60 mL/min/1.73 m2 Type and screen Collection Time: 11/24/24 10:53 AM Result Value Ref Range ABO Rh A Positive Man, indirect Negative Check Sample Collection Time: 11/24/24 12:21 PM Result Value Ref Range ABO Rh A Positive ECHO: CONCLUSIONS: 1. Concentric LV remodeling. Normal left ventricular systolic function. The Ejection Fraction (Garsia's) is measured at 67 %. Left ventricular diastolic function is indeterminate due to mitral valve repair or replacement. The average global longitudinal strain is abnormal. The LV global strain is: -14.9 %. No left ventricular thrombus visualized. 2. There are no regional wall motion abnormalities. 3. Right ventricular dilatation. Mild right ventricular hypokinesis. Wire noted in the right heart. 4. Status post mitral valve repair with annuloplasty ring. Mild residual mitral insufficiency. 5. 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 No paravalvular aortic regurgitation. The aortic prosthesis demonstrates normal transvalvular gradient for valve type and size. 6. Mild tricuspid regurgitation with normal estimated pulmonary artery systolic pressure. 7. Normal aortic root and ascending aorta size when indexed to body surface area. 8. No pericardial effusion. NEVAEH: Conclusions: 1. Tiny mobile linear echodensity attach to device lead in the right atrium (DDx includes thrombus vs. vegetation). Cannot rule out lead-related infective endocarditis. 2. Bileaflet tilting disk mechanical prosthetic valve is present in the aortic position. The aortic valve prosthesis appears well seated. The aortic prosthesis demonstrates normal leaflet motion. There is no evidence of aortic valve vegetation. Mild aortic valve regurgitation. No perivalvular regurgitation. No aortic valve stenosis. 3. Moderate to severe tricuspid regurgitation. Mechanism of TR is unclear. There is no evidence of tricuspid valve vegetation. 4. Status post mitral valve repair with annuloplasty ring. No mitral valve vegetations seen. Mitral valve leaflets appear mildly thickened. Moderate mitral regurgitation - eccentric and directed posteriorly jet. No mitral valve vegetations detected. 5. The left ventricle appears normal in size. Left ventricular systolic function appears normal. 6. The right ventricle appears dilated. Right ventricular systolic function appears normal. 7. Normal right atrial size. Device leads seen in the RA. 8. The left atrium is normal in size. Device Interrogation Generator: [employer] Quadra Allure MP [id number] ICT CUSTOMER SUPPORT OFFICER-P implanted 09.26.2023 Right atrial lead: [employer] Tendril STS [id number] implanted 08.16.2015; pacing 91% Right ventricular:[employer] Tendril STS [id number] implanted 08.16.2015; pacing >99% Left ventricular: [employer]rejon Quartet [id number] implanted 08.16.2015; pacing >99% Lead impedance, sensing and pacing capture thresholds are stable Battery longevity: 5.4-5.9 years High Rate Episodes: none Underlying rhythm: NSR 60s CTS operations in 2021: 11/22/21: mechanical composite root replacement (On-X valve 21mm/22mm Gelweave Valsalva graft) via modified Bentall, posterior LVOT/root enlargement with pericardial patch, redo sternotomy, ascending aortic replacement 22mm gelweave, IABP insertion 11/23/21: emergent central VA ECMO 11/23/21: emergent CABG x1 (RSVG graft to prox RCA), RVAD placement 11/23/21: mediastinal exploration for bleeding 11/24/21: extensive mediastinal washout and repacking 11/25/21: mediastinal washout and L VATS 11/28/21: complex MV repair (24mm simulus band), chest closure, temporary RVAD/ECMO, central VA ECMOremoval 12/07/21: localized washout and closure, weaning and removal of RVAD 12/12/21: exploration of R groin and thigh wounds, excisional debridement, washout and wound VAC placement. ASSESSMENT/PLAN #E.faecalis bacteremia #infected pacemaker lead #CAD-h/o CABG, AVR (2018) #h/o redo sternotomy, ascending and mechanical composite root replacement with LVOT patch in 2021 (at [facility]) #AF #PPM 2015 Kendal Cisneros is 69 y.o. White female with history of CAD s/p CABG, AVR 2018 and redo sternotomy, ascending and mechanical composite root replacement with LVOT patch augmentation 2021, PPM 2015, Afib, HTN, CHF with infected PPM lead. -Pacemaker interrogated, patient not dependent -Planning for OR tomorrow for pacemaker extraction. -Per EP, will not need temp perm pacer at time of extraction. -Please hold heparin electronic tech to the OR tomorrow. -NPO at [place] -preop labs: CBC, CMP, type and screen, coags, antithrombin level. -IPAP has seen. Device Interrogation from EP note Generator: [employer] Allure MP [id number] ICT CUSTOMER SUPPORT OFFICER-P implanted 09.26.2023 Right atrial lead: [employer]rejon Tendril STS [id number] implanted 08.16.2015; pacing 91% Right ventricular:[employer] Tendril STS [id number]-52 implanted 08.16.2015; pacing >99% Left ventricular: Castrejon Quartet [id number] implanted 2.8.2016; pacing >99% Lead impedance, sensing and pacing capture thresholds are stable Battery longevity: 5.4-5.9 years High Rate Episodes: none Underlying rhythm: NSR 60s No new Assessment & Plan notes have been filed under this hospital service since the last note was generated. Service: Cardiothoracic Surgery Shelly Molina NP 11/24/2024 Cosigned by Milad Rg MD at 11/28/2024 8:12 AM CDT * Lia Hernandez MD - 11/24/2024 11:16 AM CDT Daily Progress Note Firm Service Name: Kendal Cisneros : 1955 Today's Date: November 24, 2024 Age: 69 y.o. female Admit Date: 11/13/2024 Bed: [id number] LOS: 11 days Subjective Interval History - Patient reports improvement of back pain after association of gabapentin and increase of oxy yesterday - CTS will shedule pacemaker removal on at 14:50. IPAP cleared patient for procedure. - Pending spine Bx pathology - Type and screen today, prepare blood in case needed as patient has Hb 7.2 and is on heparin drip. Plan: - On hepatin gtt until clinically stable and all results are back, and pacemaker removal, aPTT at goal - Pacemaker removal 11/25 at 14:50, ADAPTIVE PHYSICAL EDUCATOR and IPAP cleared patinet - Pain management Objective Scheduled Meds PRN Meds Infusions acetaminophen, 1,000 mg, oral, Q6H GLORY ampicillin, 2,000 mg, intravenous, Q6H GLORY [Held by Provider] carvediloL, 12.5 mg, oral, BID with meals (bkfst, dinner) cefTRIAXone, 2,000 mg, intravenous, Q12H GLORY famotidine, 40 mg, oral, Daily fluticasone propionate, 2 spray, each nostril, Daily srrywmiprew-ozwezvkqc-mgkuulwo, 1 puff, inhalation, Daily gabapentin, 300 mg, oral, TID lidocaine, 1 patch, transdermal, Q24H methocarbamoL, 750 mg, oral, TID rosuvastatin, 40 mg, oral, Daily sertraline, 100 mg, oral, Daily sodium chloride 0.9%, 0.5-20 mL, intra-catheter, Q8H GLORY [Held by Provider] spironolactone, 25 mg, oral, Daily traZODone, 100 mg, oral, Nightly albuterol HFA, 2 puff, inhalation, Q4H PRN (RT) sodium chloride 0.9%, 30 mL, intravenous, PRN heparin, 2,000 Units, intravenous, Q6H PRN OR heparin, 3,000 Units, intravenous, Q6H PRN HYDROmorphone, 0.2 mg, intravenous, Q2H PRN ondansetron ODT, 4 mg, oral, Q6H PRN OR ondansetron, 4 mg, intravenous, Q6H PRN oxyCODONE, 7.5 mg, oral, Q4H PRN perflutren lipid (DEFINITY) 1.5 mL in sodium chloride 0.9% 10 mL syringe, 1-10 mL, intravenous, Once in imaging polyethylene glycol, 17 g, oral, Daily PRN prochlorperazine, 5 mg, intravenous, Q6H PRN sodium chloride 0.9%, 0.5-20 mL, intra-catheter, PRN heparin, 0-33 Units/kg/hr, Last Rate: 17 Units/kg/hr (11/23/24 2210) sodium chloride 0.9%, 30 mL/hr, Last Rate: 30 mL/hr (11/19/24 1216) Vitals Most Recent Vitals: T 36.4 ??C (97.5 ??F), HR 89, BP 120/56, RR 16, SpO2 96 %. 24hr Min/Max: Temp Min: 36.4 ??C (97.5 ??F) Max: 36.7 ??C (98.1 ??F) Pulse Min: 89 Max: 90 BP Min: 112/53 Max: 120/56 Resp Min: 16 Max: 16 SpO2 Min: 94 % Max: 96 % No intake or output data in the 24 hours ending 11/24/24 1116 Net IO Since Admission: 1,300 mL [11/24/24 1116] Last Weight: 63.1 kg (139 lb 1.8 oz) (11/13/24 1845). Admit Weight: 61.2 kg (135 lb). Last BM: Stool Occurrence Amount: Medium (11/20/24 0533) Physical Exam General: Not in distress, appears comfortable, pain scale 7/10 (spine, around T 10 level) HEENT: Normocephalic, no conjunctival pallor, no scleral icterus Cardiac: Normal rate; regular rhythm; audible S1 and S2 metallic click on mitral area , rubs, or gallops; 2+ radial pulses; no LE edema; no JVD nor hepato- jugular reflux Pulm: clear to auscultation bilaterally; no wheezes, rales, or rhonchi. Pacemaker on the left side of chest. GI/Abd: Soft, nontender, non-distended MSK: Normal bulk and tone, no joint effusions or major deformities, chronic pain on spine. Bx site on T10 level without local bruising or hematoma. Presence of improvement of muscle strain on paravertebral area on T10-T12 levels worse on left side. Skin: No rash or bruises Extremities: Warm and well perfused Neuro: AAO x 4, CN II-XII grossly intact, moves all extremities spontaneously Lines, Drains, Airways Peripheral IV 11/13/24 20 G Left;Posterior Hand (Active) Peripheral IV 11/20/24 20 G Anterior;Right Forearm (Active) Labs/Diagnostic Review Na 141 ( ) Cl 106 BUN 13 ( ) K 4.0 ( ) CO2 25 ( ) Cr 1.56 ( ) Mg 2.2 ( ), G ( ) AST - ( ) ALT - ( ) Alk Phos - ( ) Ca 8.9 ( ) TP - Alb - Total Bili: - ( ) Direct Bili: - ( ) \ Hgb 7.2 ( ) / WBC 5.50 ( ) -------- Plt 170 ( ) / MCV 88.0 ( )\ INR 1.24 (Labs above are the most recent result obtained in the last 24 hours, followed by the 2nd to last lab in the past 3 days, if applicable. For additional labs/trends, see Epic.) Imaging Review No results found. Assessment & Plan Chronic midline thoracic back pain # C/f thoracic discitis / osteomyelitis Chronic back pain since 08/2024. Has had multiple CT scans for workup. Most recent CT thoracic spineshowed c/f discitis osteophyte complex at T10-11, saw NSGY as o/p, told to come to ED for further workup. Endorsing night sweats, 20 lb weight loss, intermittent BUE tingling. No incontinence. No IVDU. Hx of kyphoplasty few years ago to d/t L compression fracture. Hx of OM in foot / leg many years ago iso trauma. ESR/CRP high here. MRI total spine done and MSK IR bx on 11/17.Pending pathology and final cultures. - NSGY signed off on 11/18 as there is no epidural extension or cor compression (MRI report) - Hold warfarin (11/11-) -> heparin gtt for 11/17 IR bx, resumed after - Pain management with GLORY: tylenol 1g q6, robaxin 750mg q8, gabapentin 300mg TID (added on 11/22),Lidocaine patch; PRN: oxy 7.5mg q4 and dilaudid 0.2 IV q2 to breakthrough pain. Bacteremia due to Enterococcus #Vegetation on pacemaker leads 07/10 BCx + E. faecalis on 11/13. Unclear source. 20lb weight loss over the last few months. - Bcx negative on 11/15 and pending 11/16 - Started Amp (11/14-) and Ceftriaxone (11/14 -) - TTE on 11/14 lVEF 67% no thrombus, mechanical mitral valve w/o dysfunction - NEVAEH completed on 11/19, possible vegetation on pacemaker leads - MSK Bx with IR on 11/17, pending culture and pathology - ID consult appreciate recs, last blood culture on 11/16. After NEVAEH indicated pacemaker removal - Consulted CTS for pacemaker removal on 11/25 at 14:50 - Cardiac surgeon that follow patient was contacted (Dr. Adal Moore) and agree with the plan - Consult IPAP on 11/21 for pre-op evaluation no additional testing, cleared for procedure Pacemaker #AVR (inspiris resilia, 2019) #Pacemaker ([employer] 2015) #pAF on Coumadin, now on heparin drip until pacemaker removal #LVEF 67% (11/14/24) Hx severe s/p AVR placement in and replacement of mechanical AV in 2021. Previously on ECMO reuqiring Mitral valve repair. - Warfarin -> hep gtt in preparation for IR bx on 11/17 - GDMT: on hold coreg (hypotension) and spironolactone (worsening of kidney function and hypotension) Osteomyelitis of thoracic spine (HCC) See above Pacemaker infection See above - Planning pacemaker removal for next week by CTS - Continue antibiotic, followed by ID Code status : Full Code Diet : Adult Diet Regular PT/OT recs : Lia Ye MD PGY1 Anesthesia 11/24/2024 11:16 AM Cosigned by Baltazar Manzano MD at 11/24/2024 6:35 PM CDT Associated attestation - Baltazar Manzano MD - 11/24/2024 6:35 PM CDT Attending Documentation I have seen and examined the patient on 11/24/24. I agree with the findings and plan of care as documented in the resident's/fellow's note. Supplementary Attestation Today, I am treating the patient for bacteremia, thoracic discitis and osteomyelitis which is in severe exacerbation, progression, or experiencing treatment side effects as evidenced by need for pacemaker removal, ID consult, IV antibiotics, as described in the note. Reviewed records from the following unique sources (external institutions or providers from different services): ID consult 11/24 who recommended to continue current antibiotics. The patient is being intensively monitored for drug toxicity from ceftriaxone and ampicillin by checking CBC and BMP. Baltazar Manzano MD * Lia Hernandez MD - 11/23/2024 7:28 AM CDT Daily Progress Note Firm Service Name: Kendal Cisneros : 1955 Today's Date: November 23, 2024 Age: 69 y.o. female Admit Date: 11/13/2024 Bed: [id number] LOS: 10 days Subjective Interval History - Patient reports improvement of back pain after association of gabapentin and increase of oxy yesterday - CTS will shedule pacemaker removal for next week. IPAP cleared patient for procedure. - Pending spine Bx pathology Plan: - On hepatin gtt until clinically stable and all results are back, and pacemaker removal, aPTT at goal - Waiting for pacemaker removal to be scheduled, ADAPTIVE PHYSICAL EDUCATOR to schedule it, and IPAP cleared patinet - CBC/ BMP on Sunday. INR daily. - Pain management Objective Scheduled Meds PRN Meds Infusions acetaminophen, 1,000 mg, oral, Q6H GLORY ampicillin, 2,000 mg, intravenous, Q6H GLORY [Held by Provider] carvediloL, 12.5 mg, oral, BID with meals (bkfst, dinner) cefTRIAXone, 2,000 mg, intravenous, Q12H GLORY famotidine, 40 mg, oral, Daily fluticasone propionate, 2 spray, each nostril, Daily gbskosnzfes-ntqrabnuh-uanhqrca, 1 puff, inhalation, Daily gabapentin, 300 mg, oral, TID lidocaine, 1 patch, transdermal, Q24H methocarbamoL, 750 mg, oral, TID rosuvastatin, 40 mg, oral, Daily sertraline, 100 mg, oral, Daily sodium chloride 0.9%, 0.5-20 mL, intra-catheter, Q8H GLORY [Held by Provider] spironolactone, 25 mg, oral, Daily traZODone, 100 mg, oral, Nightly albuterol HFA, 2 puff, inhalation, Q4H PRN (RT) sodium chloride 0.9%, 30 mL, intravenous, PRN heparin, 2,000 Units, intravenous, Q6H PRN OR heparin, 3,000 Units, intravenous, Q6H PRN HYDROmorphone, 0.2 mg, intravenous, Q2H PRN ondansetron ODT, 4 mg, oral, Q6H PRN OR ondansetron, 4 mg, intravenous, Q6H PRN oxyCODONE, 7.5 mg, oral, Q4H PRN perflutren lipid (DEFINITY) 1.5 mL in sodium chloride 0.9% 10 mL syringe, 1-10 mL, intravenous, Once in imaging polyethylene glycol, 17 g, oral, Daily PRN prochlorperazine, 5 mg, intravenous, Q6H PRN sodium chloride 0.9%, 0.5-20 mL, intra-catheter, PRN heparin, 0-33 Units/kg/hr, Last Rate: 17 Units/kg/hr (11/22/24 2207) sodium chloride 0.9%, 30 mL/hr, Last Rate: 30 mL/hr (11/19/24 1216) Vitals Most Recent Vitals: T 36.7 ??C (98.1 ??F), HR 76, BP 115/57, RR 18, SpO2 92 %. 24hr Min/Max: Temp Min: 36.7 ??C (98.1 ??F) Max: 36.8 ??C (98.2 ??F) Pulse Min: 76 Max: 87 BP Min: 115/57 Max: 118/59 Resp Min: 18 Max: 18 SpO2 Min: 92 % Max: 93 % No intake or output data in the 24 hours ending 11/23/24 07 Net IO Since Admission: 1,300 mL [11/23/24 0728] Last Weight: 63.1 kg (139 lb 1.8 oz) (11/13/24 1845). Admit Weight: 61.2 kg (135 lb). Last BM: Stool Occurrence Amount: Medium (11/20/24 0533) Physical Exam General: Not in distress, appears comfortable, pain scale 7/10 (spine, around T 10 level) HEENT: Normocephalic, no conjunctival pallor, no scleral icterus Cardiac: Normal rate; regular rhythm; audible S1 and S2 metallic click on mitral area , rubs, or gallops; 2+ radial pulses; no LE edema; no JVD nor hepato- jugular reflux Pulm: clear to auscultation bilaterally; no wheezes, rales, or rhonchi. Pacemaker on the left side of chest. GI/Abd: Soft, nontender, non-distended MSK: Normal bulk and tone, no joint effusions or major deformities, chronic pain on spine. Bx site on T10 level without local bruising or hematoma. Presence of improvement of muscle strain on paravertebral area on T10-T12 levels worse on left side. Skin: No rash or bruises Extremities: Warm and well perfused Neuro: AAO x 4, CN II-XII grossly intact, moves all extremities spontaneously Lines, Drains, Airways Peripheral IV 11/13/24 20 G Left;Posterior Hand (Active) Peripheral IV 11/20/24 20 G Anterior;Right Forearm (Active) Labs/Diagnostic Review Na - ( ) Cl - BUN - ( ) K - ( ) CO2 - ( ) Cr - ( ) Mg - ( ), Glc: - ( ) AST - ( ) ALT - ( ) Alk Phos - ( ) Ca - ( ) TP - Alb - Total Bili: - ( ) Direct Bili: - ( ) \ Hgb - ( ) / WBC - ( ) -------- Plt - ( ) / MCV - ( )\ INR 1.19 (Labs above are the most recent result obtained in the last 24 hours, followed by the 2nd to last lab in the past 3 days, if applicable. For additional labs/trends, see Epic.) Imaging Review No results found. Assessment & Plan Chronic midline thoracic back pain # C/f thoracic discitis / osteomyelitis Chronic back pain since 08/2024. Has had multiple CT scans for workup. Most recent CT thoracic spineshowed c/f discitis osteophyte complex at T10-11, saw NSGY as o/p, told to come to ED for further workup. Endorsing night sweats, 20 lb weight loss, intermittent BUE tingling. No incontinence. No IVDU. Hx of kyphoplasty few years ago to d/t L compression fracture. Hx of OM in foot / leg many years ago iso trauma. ESR/CRP high here. MRI total spine done and MSK IR bx on 11/17.Pending pathology and final cultures. - NSGY signed off on 11/18 as there is no epidural extension or cor compression (MRI report) - Hold warfarin (11/11-) -> heparin gtt for 11/17 IR bx, resumed after - Pain management with GLORY: tylenol 1g q6, robaxin 750mg q8, gabapentin 300mg TID (added on 11/22),Lidocaine patch; PRN: oxy 7.5mg q4 and dilaudid 0.2 IV q2 to breakthrough pain. Bacteremia due to Enterococcus #Vegetation on pacemaker leads 07/10 BCx + E. faecalis on 11/13. Unclear source. 20lb weight loss over the last few months. - Bcx negative on 11/15 and pending 11/16 - Started Amp (11/14-) and Ceftriaxone (11/14 -) - TTE on 11/14 lVEF 67% no thrombus, mechanical mitral valve w/o dysfunction - NEVAEH completed on 11/19, possible vegetation on pacemaker leads - MSK Bx with IR on 11/17, pending culture and pathology - ID consult appreciate recs, last blood culture on 11/16. After NEVAEH indicated pacemaker removal - Consulted CTS for pacemaker removal next week, TBD - Cardiac surgeon that follow patient was contacted (Dr. Adal Moore) and agree with the plan - Consult IPAP on 11/21 for pre-op evaluation no additional testing, cleared for procedure Pacemaker #AVR (inspiris resilia, 2018) #Pacemaker ([employer] 2015) #pAF on Coumadin, now on heparin drip until pacemaker removal #LVEF 67% (11/14/24) Hx severe s/p AVR placement in and replacement of mechanical AV in 2021. Previously on ECMO reuqiring Mitral valve repair. - Warfarin -> hep gtt in preparation for IR bx on 11/17 - GDMT: on hold coreg (hypotension) and spironolactone (worsening of kidney function and hypotension) Osteomyelitis of thoracic spine (HCC) See above Pacemaker infection See above - Planning pacemaker removal for next week by CTS - Continue antibiotic, followed by ID Code status : Full Code Diet : Adult Diet Regular PT/OT recs : Lia Ye MD PGY1 Anesthesia 11/23/2024 7:28 AM Cosigned by Baltazar Manzano MD at 11/23/2024 8:39 PM CDT Associated attestation - Baltazar Manzano MD - 11/23/2024 8:39 PM CDT Attending Documentation I have seen and examined the patient on 11/23/24. I agree with the findings and plan of care as documented in the resident's/fellow's note. Supplementary Attestation My total encounter time on this service date was 25 minutes which was spent performing a iidc-te-oect encounter and personally completing the provider-level activities documented in the note. This includes time spent prior to the visit and after the visit in direct care of the patient. This time does not include time spent in any separately reportable services. Baltazar Manzano MD * Lia Hernandez MD - 11/22/2024 9:47 AM CDT Daily Progress Note Firm Service Name: Kendal Cisneros : 1955 Today's Date: November 22, 2024 Age: 69 y.o. female Admit Date: 11/13/2024 Bed: [id number] LOS: 9 days Subjective Interval History - Patient reports worsening back pain while on any activity, resumed lidocaine patch - Pain management with tylenol 1g q6, robaxin 750mg TID, PRN: oxy 5mg q4, dilaudid 0.2 mg - CTS will schedule pacemaker removal for next week. IPAP cleared patient for procedure. - Final report of Bx culture: negative, pending pathology Plan: - On hepatin gtt until clinically stable and all results are back, and pacemaker removal, aPTT on goal - Waiting for pacemaker removal to be scheduled, ADAPTIVE PHYSICAL EDUCATOR and IPAP following. - CBC/ BMP on Sunday. INR daily. - Included gabapentin 300mg TID and increased dose of oxy to 7.5 q4 PRN Objective Scheduled Meds PRN Meds Infusions acetaminophen, 1,000 mg, oral, Q6H GLORY ampicillin, 2,000 mg, intravenous, Q6H GLORY [Held by Provider] carvediloL, 12.5 mg, oral, BID with meals (bkfst, dinner) cefTRIAXone, 2,000 mg, intravenous, Q12H GLORY famotidine, 40 mg, oral, Daily fluticasone propionate, 2 spray, each nostril, Daily ezujbmzjmga-wouzsbajr-lbejrvyb, 1 puff, inhalation, Daily lidocaine, 1 patch, transdermal, Q24H methocarbamoL, 750 mg, oral, TID rosuvastatin, 40 mg, oral, Daily sertraline, 100 mg, oral, Daily sodium chloride 0.9%, 0.5-20 mL, intra-catheter, Q8H GLORY [Held by Provider] spironolactone, 25 mg, oral, Daily traZODone, 100 mg, oral, Nightly albuterol HFA, 2 puff, inhalation, Q4H PRN (RT) sodium chloride 0.9%, 30 mL, intravenous, PRN heparin, 2,000 Units, intravenous, Q6H PRN OR heparin, 3,000 Units, intravenous, Q6H PRN HYDROmorphone, 0.2 mg, intravenous, Q2H PRN ondansetron ODT, 4 mg, oral, Q6H PRN OR ondansetron, 4 mg, intravenous, Q6H PRN oxyCODONE, 5 mg, oral, Q4H PRN perflutren lipid (DEFINITY) 1.5 mL in sodium chloride 0.9% 10 mL syringe, 1-10 mL, intravenous, Once in imaging polyethylene glycol, 17 g, oral, Daily PRN prochlorperazine, 5 mg, intravenous, Q6H PRN sodium chloride 0.9%, 0.5-20 mL, intra-catheter, PRN heparin, 0-33 Units/kg/hr, Last Rate: 17 Units/kg/hr (11/21/242233) sodium chloride 0.9%, 30 mL/hr, Last Rate: 30 mL/hr (11/19/24 1216) Vitals Most Recent Vitals: T 36.7 ??C (98.1 ??F), HR 68, BP 115/54, RR 18, SpO2 98 %. 24hr Min/Max: Temp Min: 36.6 ??C (97.9 ??F) Max: 36.8 ??C (98.2 ??F) Pulse Min: 68 Max: 76 BP Min: 115/54 Max: 136/67 Resp Min: 16 Max: 18 SpO2 Min: 96 % Max: 98 % No intake or output data in the 24 hours ending 11/22/24 09 Net IO Since Admission: 1,300 mL [11/22/24 09] Last Weight: 63.1 kg (139 lb 1.8 oz) (11/13/24 1845). Admit Weight: 61.2 kg (135 lb). Last BM: Stool Occurrence Amount: Medium (11/20/24 0533) Physical Exam General: Not in distress, appears comfortable, pain scale 7/10 (spine, around T 10 level) HEENT: Normocephalic, no conjunctival pallor, no scleral icterus Cardiac: Normal rate; regular rhythm; audible S1 and S2 metallic click on mitral area , rubs, or gallops; 2+ radial pulses; no LE edema; no JVD nor hepato- jugular reflux Pulm: clear to auscultation bilaterally; no wheezes, rales, or rhonchi. Pacemaker on the left side of chest. GI/Abd: Soft, nontender, non-distended MSK: Normal bulk and tone, no joint effusions or major deformities, chronic pain on spine. Bx site on T10 level without local bruising or hematoma. Presence of muscle strain on paravertebral area on T10-T12 levels worse on left side. Skin: No rash or bruises Extremities: Warm and well perfused Neuro: AAO x 4, CN II-XII grossly intact, moves all extremities spontaneously Lines, Drains, Airways Peripheral IV 11/13/24 20 G Left;Posterior Hand (Active) Peripheral IV 11/20/24 20 G Anterior;Right Forearm (Active) Labs/Diagnostic Review Na 139 ( ) Cl 106 BUN 9 (12) K 3.8 (3.8) CO2 26 (26) Cr 1.31 (1.27) Mg 2.1 (2.3), G (89) AST - ( ) ALT - ( ) Alk Phos - ( ) Ca 8.8 (9.1) TP - Alb - Total Bili: - ( ) Direct Bili: - ( ) \ Hgb 7.5 (7.7) / WBC 4.56 (5.84) -------- Plt 151 (170) / MCV 87.8 (86.5)\ INR 1.24 (Labs above are the most recent result obtained in the last 24 hours, followed by the 2nd to last lab in the past 3 days, if applicable. For additional labs/trends, see Epic.) Imaging Review No results found. Assessment & Plan Chronic midline thoracic back pain # C/f thoracic discitis / osteomyelitis Chronic back pain since 08/2024. Has had multiple CT scans for workup. Most recent CT thoracic spineshowed c/f discitis osteophyte complex at T10-11, saw NSGY as o/p, told to come to ED for further workup. Endorsing night sweats, 20 lb weight loss, intermittent BUE tingling. No incontinence. No IVDU. Hx of kyphoplasty few years ago to d/t L compression fracture. Hx of OM in foot / leg many years ago iso trauma. ESR/CRP high here. MRI total spine done and MSK IR bx on 11/17.Pending pathology and final cultures. - NSGY signed off on 11/18 as there is no epidural extension or cor compression (MRI report) - Hold warfarin (11/11-) -> heparin gtt for 11/17 IR bx, resumed after - Pain management with GLORY: tylenol 1g q6, robaxin 750mg q8, gabapentin 300mg TID (added on 11/22),Lidocaine patch; PRN: oxy 7.5mg q4 and dilaudid 0.2 IV q2 to breakthrough pain. Bacteremia due to Enterococcus #Vegetation on pacemaker leads / BCx + E. faecalis on 11/13. Unclear source. 20lb weight loss over the last few months. - Bcx negative on 11/15 and pending 11/16 - Started Amp (11/14-) and Ceftriaxone (11/14 -) - TTE on 11/14 lVEF 67% no thrombus, mechanical mitral valve w/o dysfunction - NEVAEH completed on 11/19, possible vegetation on pacemaker leads - MSK Bx with IR on 11/17, pending culture and pathology - ID consult appreciate recs, last blood culture on 11/16. After NEVAEH indicated pacemaker removal - Consulted CTS for pacemaker removal next week - Cardiac surgeon that follow patient was contacted (Dr. Adal Moore) and agree with the plan - Consult IPAP on 11/21 for pre-op evaluation no additional testing, cleared for procedure Pacemaker #AVR (inspiris resilia, 2018) #Pacemaker ([employer] 2015) #pAF on Coumadin, now on heparin drip until pacemaker removal #LVEF 67% (11/14/24) Hx severe s/p AVR placement in and replacement of mechanical AV in 2021. Previously on ECMO reuqiring Mitral valve repair. - Warfarin -> hep gtt in preparation for IR bx on 11/17 - GDMT: on hold coreg (hypotension) and spironolactone (worsening of kidney function and hypotension) Osteomyelitis of thoracic spine (HCC) See above Pacemaker infection See above - Planning pacemaker removal for next week by CTS - Continue antibiotic, followed by ID Code status : Full Code Diet : Adult Diet Regular PT/OT recs : Lia Ye MD PGY1 Anesthesia 11/22/2024 9:47 AM Cosigned by Baltazar Manzano MD at 11/23/2024 6:54 AM CDT Associated attestation - Baltazar Manzano MD - 11/23/2024 6:54 AM CDT Attending Documentation I have seen and examined the patient on 11/22/2024. I agree with the findings and plan of care as documented in the resident's/fellow's note. Supplementary Attestation My total encounter time on this service date was 25 minutes which was spent performing a [id number]-[id number] encounter and personally completing the provider-level activities documented in the note. This includes time spent prior to the visit and after the visit in direct care of the patient. This time does not include time spent in any separately reportable services. Baltazar Manzano MD * Shelly Molina NP - 11/21/2024 1:33 PM CDT Cardiac Surgery Daily Progress * No surgery found * SUBJECTIVE Chief complaint of back pain. Interval History: Patient without acute complaints-still with some back pain, lack of appetite. Denies cardiac symptoms. NEVAEH this week with mobile linear echodensity attached to the device lead in the RA, mech AVR with normal motion, no e/o AV veg, mod-severe TR, no e/o TV veg, s/p MV repair with annuloplasty ring-no e/o MV veg, mod MR, normal LV function, dilated RV with normal RV function. From EP note: Device Interrogation Generator: [employer]ure MP [id number] ICT CUSTOMER SUPPORT OFFICER-P implanted 09.26.2023 Right atrial lead: [employer] Tendril STS [id number] implanted 08.16.2015; pacing 91% Right ventricular:[employer] Tendril STS [id number] implanted 08.16.2015; pacing >99% Left ventricular: [employer] Quartet [id number] implanted 08.16.2015; pacing >99% Lead impedance, sensing and pacing capture thresholds are stable Battery longevity: 5.4-5.9 years High Rate Episodes: none Underlying rhythm: NSR 60s OBJECTIVE Current Facility-Administered Medications: acetaminophen (TYLENOL) tablet 1,000 mg, 1,000 mg, oral, Q6H [facility], MD, 1,000 mg at 11/21/24 05 albuterol HFA (PROVENTIL HFA,VENTOLIN HFA,PROAIR HFA) 90 mcg/actuation inhaler 2 puff, 2 puff, inhalation, Q4H PRN (RT), Eliane Feng NP ampicillin 2,000 mg/60 mL in sterile water IVPB (premix) 2,000 mg, 2,000 mg, intravenous, Q6H [facility] HOLDER Roberta, MD, Last Rate: 120 mL/hr at 11/21/2421, 2,000 mg at 11/21/24820 Carrier Fluids for Secondary Infusion - 0.9% Sodium Chloride, 30 mL, intravenous, PRN, HollyM. Feng NP [Held by Provider] carvediloL (COREG) tablet 12.5 mg, 12.5 mg, oral, BID with meals (bkfst, dinner), Eliane Feng NP, 12.5 mg at 11/13/24 171 cefTRIAXone (ROCEPHIN) 2,000 mg/20 mL in sterile water (premix) 2,000 mg, 2,000 mg, intravenous, Q12H [facility] Lyndon K., MD, 2,000 mg at 11/21/24 0821 famotidine (PEPCID) tablet 40 mg, 40 mg, oral, Daily, Eliane Feng NP, 40 mg at 11/21/24 0821 fluticasone propionate (FLONASE) 50 mcg/actuation nasal spray 2 spray, 2 spray, each nostril, Daily, Eliane Feng, BOX PRINTER, 2 spray at 11/21/24 0827 eldufployxc-msbxocypb-nwrbwwrz (TRELEGY ELLIPTA) 200-62.5-25 mcg inhaler 1 puff, 1 puff, inhalation, Daily, Kandis Spencer MD, 1 puff at 11/21/24 0827 heparin 1,000 unit/mL injection 2,000 Units, 2,000 Units, intravenous, Q6H PRN OR heparin 1,000unit/mL injection 3,000 Units, 3,000 Units, intravenous, Q6H PRN, Sher Adams MD heparin in 0.45% sodium chloride 25,000 units/250 mL (100 units/mL) infusion (premix), 0-33 Units/kg/hr, intravenous, Titrated, Layla Nava MD, Last Rate: 10.73 mL/hr at 11/20/24 2308, 17 Units/kg/hr at 11/20/24 2308 HYDROmorphone (DILAUDID) injection 0.2 mg, 0.2 mg, intravenous, Q2H PRN, Lia Hernandez MD methocarbamoL (ROBAXIN) tablet 750 mg, 750 mg, oral, TID, Lia Hernandez MD, 750 mg at 11/21/24 0821 ondansetron ODT (ZOFRAN-ODT) disintegrating tablet 4 mg, 4 mg, oral, Q6H PRN, 4 mg at 11/17/24 0607OR ondansetron (ZOFRAN) injection 4 mg, 4 mg, intravenous, Q6H PRN, Lia Hernandez MD, 4 mg at 11/20/24 1122 oxyCODONE (ROXICODONE) tablet 5 mg, 5 mg, oral, Q4H PRN, Lia Hernandez MD, 5 mg at 11/20/24 2048 perflutren lipid (DEFINITY) 1.5 mL in sodium chloride 0.9% 10 mL syringe, 1-10 mL, intravenous, Once in imaging, Kandis Spencer MD polyethylene glycol (MIRALAX) packet 17 g, 17 g, oral, Daily PRN, Eliane Feng, JULIETA prochlorperazine (COMPAZINE) injection 5 mg, 5 mg, intravenous, Q6H PRN, Lia Hernandez MD rosuvastatin (CRESTOR) tablet 40 mg, 40 mg, oral, Daily, Eliane Feng, BOX PRINTER, 40 mg at 11/21/24 0821 sertraline (ZOLOFT) tablet 100 mg, 100 mg, oral, Daily, Eliane Feng, BOX PRINTER, 100 mg at 11/21/24 0821 sodium chloride 0.9% flush 0.5-20 mL, 0.5-20 mL, intra-catheter, Q8H GLORY, Eliane Feng, JULIETA, 10 mL at 11/21/24 0511 sodium chloride 0.9% flush 0.5-20 mL, 0.5-20 mL, intra-catheter, PRN, Eliane Feng NP sodium chloride 0.9% infusion, 30 mL/hr, intravenous, Continuous, Calvin Benjamin MD, Last Rate: 30 mL/hr at 11/19/24 1216, 30 mL/hr at 11/19/24 1216 [Held by Provider] spironolactone (ALDACTONE) tablet 25 mg, 25 mg, oral, Daily, Eliane Feng NP traZODone (DESYREL) tablet 100 mg, 100 mg, oral, Nightly, Eliane Feng, BOX PRINTER, 100 mg at 11/20/242005 Vitals: 24hr Min/Max: Temp Min: 36.4 ??C (97.5 ??F) Max: 36.8 ??C (98.2 ??F) Pulse Min: 72 Max: 82 BP Min: 109/47 Max: 126/64 Resp Min: 16 Max: 18 SpO2 Min: 94 % Max: 98 % Most Recent : Vitals: 11/21/24 0718 BP: 126/64 Pulse: 72 Resp: 16 Temp: 36.5 ??C (97.7 ??F) SpO2: 94% No intake/output data recorded. No intake/output data recorded. Physical Exam: Physical Exam Vitals reviewed. Constitutional: General: She is not in acute distress. Appearance: She is well-developed. HENT: Head: Normocephalic and atraumatic. Nose: Nose normal. Mouth/Throat: Mouth: Mucous membranes are moist. Eyes: Conjunctiva/sclera: Conjunctivae normal. Pupils: Pupils are equal, round, and reactive to light. Cardiovascular: Rate and Rhythm: Normal rate and regular rhythm. Heart sounds: Murmur heard. No friction rub. No gallop. Comments: II/ systolic murmur Sternotomy incision well-healed CARLITA chest pacemaker site well-healed. Pulmonary: Effort: Pulmonary effort is normal. Breath sounds: Normal breath sounds. Abdominal: General: Bowel sounds are normal. There is no distension. Palpations: Abdomen is soft. Tenderness: There is no abdominal tenderness. Musculoskeletal: General: No swelling. Normal range of motion. Cervical back: Neck supple. Skin: General: Skin is warm and dry. Neurological: General: No focal deficit present. Mental Status: She is alert and oriented to person, place, and time. Psychiatric: Mood and Affect: Mood normal. Behavior: Behavior normal. Thought Content: Thought content normal. Lab/Radiology/Diagnostic Review: Laboratory review: Lab results in the last 24 hours: Recent Results (from the past 24 hours) Magnesium Collection Time: 11/20/24 8:45 PM Result Value Ref Range Magnesium 2.1 1.4 - 2.5 mg/dL CBC with auto differential Collection Time: 11/20/24 8:45 PM Result Value Ref Range WBC 4.56 3.80 - 9.90 K/cumm Hgb 7.5 (L) 11.9 - 15.5 g/dL Hct 24.4 (L) 35.6 - 45.5 % Plt 151 150 - 400 K/cumm MPV 11.1 9.1 - 12.3 fL RBC 2.78 (L) 3.90 - 5.20 M/cumm MCV 87.8 81.3 - 96.4 fL MCH 27.0 (L) 27.1 - 33.3 pg MCHC 30.7 (L) 32.3 - 35.7 g/dL RDW CV 15.5 (H) 11.1 - 14.9 % RDW SD 48.6 (H) 35.7 - 48.1 fL NRBC abs 0.00 0.00 - 0.01 K/cumm Basic metabolic panel Collection Time: 11/20/24 8:45 PM Result Value Ref Range Sodium 139 135 - 145 mmol/L Potassium, pl 3.8 3.3 - 4.9 mmol/L Chloride 106 97 - 110 mmol/L CO2 26 22 - 32 mmol/L Anion gap 7 2 - 15 mmol/L BUN 9 6 - 25 mg/dL Creatinine 1.31 (H) 0.60 - 1.10 mg/dL Glucose 96 70 - 199 mg/dL Calcium 8.8 8.5 - 10.3 mg/dL aPTT Collection Time: 11/20/24 8:45 PM Result Value Ref Range aPTT 76 (H) 28 - 38 sec Differential, auto Collection Time: 11/20/24 8:45 PM Result Value Ref Range Neutrophil abs 2.97 1.50 - 6.50 K/cumm Imm gran abs 0.04 0.00 - 0.10 K/cumm Lymphocyte abs 1.02 0.80 - 3.30 K/cumm Monocyte abs 0.33 0.20 - 0.80 K/cumm Eosinophil abs 0.17 0.00 - 0.50 K/cumm Basophil abs 0.03 0.00 - 0.10 K/cumm Neutrophil pct 65.1 % Imm gran pct 0.9 % Lymphocyte pct 22.4 % Monocyte pct 7.2 % Eosinophil pct 3.7 % Basophil pct 0.7 % Protime-INR Collection Time: 11/20/24 8:45 PM Result Value Ref Range PT 14.0 (H) 9.7 - 13.0 sec INR 1.29 (H) 0.90 - 1.20 eGFR Collection Time: 11/20/24 8:45 PM Result Value Ref Range eGFR 45 (L) >=60 mL/min/1.73 m2 ECHO: CONCLUSIONS: 1. Concentric LV remodeling. Normal left ventricular systolic function. The Ejection Fraction (Garsia's) is measured at 67 %. Left ventricular diastolic function is indeterminate due to mitral valve repair or replacement. The average global longitudinal strain is abnormal. The LV global strain is: -14.9 %. No left ventricular thrombus visualized. 2. There are no regional wall motion abnormalities. 3. Right ventricular dilatation. Mild right ventricular hypokinesis. Wire noted in the right heart. 4. Status post mitral valve repair with annuloplasty ring. Mild residual mitral insufficiency. 5. 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 No paravalvular aortic regurgitation. The aortic prosthesis demonstrates normal transvalvular gradient for valve type and size. 6. Mild tricuspid regurgitation with normal estimated pulmonary artery systolic pressure. 7. Normal aortic root and ascending aorta size when indexed to body surface area. 8. No pericardial effusion. NEVAEH: Conclusions: 1. Tiny mobile linear echodensity attach to device lead in the right atrium (DDx includes thrombus vs. vegetation). Cannot rule out lead-related infective endocarditis. 2. Bileaflet tilting disk mechanical prosthetic valve is present in the aortic position. The aortic valve prosthesis appears well seated. The aortic prosthesis demonstrates normal leaflet motion. There is no evidence of aortic valve vegetation. Mild aortic valve regurgitation. No perivalvular regurgitation. No aortic valve stenosis. 3. Moderate to severe tricuspid regurgitation. Mechanism of TR is unclear. There is no evidence of tricuspid valve vegetation. 4. Status post mitral valve repair with annuloplasty ring. No mitral valve vegetations seen. Mitral valve leaflets appear mildly thickened. Moderate mitral regurgitation - eccentric and directed posteriorly jet. No mitral valve vegetations detected. 5. The left ventricle appears normal in size. Left ventricular systolic function appears normal. 6. The right ventricle appears dilated. Right ventricular systolic function appears normal. 7. Normal right atrial size. Device leads seen in the RA. 8. The left atrium is normal in size. Device Interrogation Generator: Castrejon Quadra Allure MP [id number] ICT CUSTOMER SUPPORT OFFICER-P implanted 09.26.2023 Right atrial lead: Castrejon Tendril STS [id number] implanted 08.16.2015; pacing 91% Right ventricular:Castrejon Tendril STS [id number] implanted 08.16.2015; pacing >99% Left ventricular: Castrejon Quartet [id number] implanted 08.16.2015; pacing >99% Lead impedance, sensing and pacing capture thresholds are stable Battery longevity: 5.4-5.9 years High Rate Episodes: none Underlying rhythm: NSR 60s CTS operations in 2021: 11/22/21: mechanical composite root replacement (On-X valve 21mm/22mm Gelweave Valsalva graft) via modified Bentall, posterior LVOT/root enlargement with pericardial patch, redo sternotomy, ascending aortic replacement 22mm gelweave, IABP insertion 5/18/22: emergent central VA ECMO 11/23/21: emergent CABG x1 (RSVG graft to prox RCA), RVAD placement 11/23/21: mediastinal exploration for bleeding 11/24/21: extensive mediastinal washout and repacking 11/25/21: mediastinal washout and L VATS 11/28/21: complex MV repair (24mm simulus band), chest closure, temporary RVAD/ECMO, central VA ECMOremoval 12/07/21: localized washout and closure, weaning and removal of RVAD 12/12/21: exploration of R groin and thigh wounds, excisional debridement, washout and wound VAC placement. ASSESSMENT/PLAN #E.faecalis bacteremia #infected pacemaker lead #CAD-h/o CABG, AVR (2018) #h/o redo sternotomy, ascending and mechanical composite root replacement with LVOT patch in 2021 (at [facility]) #AF #PPM 2015 Kendal Cisneros is 69 y.o. White female with history of CAD s/p CABG, AVR 2018 and redo sternotomy, ascending and mechanical composite root replacement with LVOT patch augmentation 2021, PPM 2015, Afib, HTN, CHF with infected PPM lead. -Pacemaker interrogated, patient not dependent -Planning for device extraction next week. -IPAP to see No new Assessment & Plan notes have been filed under this hospital service since the last note was generated. Service: Cardiothoracic Surgery Shelly Molina NP 11/21/2024 Cosigned by Milad Rg MD at 11/28/2024 8:12 AM CDT * Lia Hernandez MD - 11/21/2024 7:55 AM CDT Daily Progress Note Firm Service Name: Kendal Cisneros : 1955 Today's Date: November 21, 2024 Age: 69 y.o. female Admit Date: 11/13/2024 Bed: [id number] LOS: 8 days Subjective Interval History - Patient reports improvement of back pain after increase on robaxin to 750mg TID - CTS contacted yesterday for pacemaker removal, will plan for possible Sunday - Final report of BC are negative (11/15 and 11/16) - IPAP evaluation today Plan: - On hepatin gtt until clinically stable and all results are back, and pacemaker removal, aPTT on goal - Waiting for pacemaker removal to be scheduled, ADAPTIVE PHYSICAL EDUCATOR and IPAP following. - CBC/ BMP on Sunday. INR daily. Objective Scheduled Meds PRN Meds Infusions acetaminophen, 1,000 mg, oral, Q6H GLORY ampicillin, 2,000 mg, intravenous, Q6H GLORY [Held by Provider] carvediloL, 12.5 mg, oral, BID with meals (bkfst, dinner) cefTRIAXone, 2,000 mg, intravenous, Q12H GLORY famotidine, 40 mg, oral, Daily fluticasone propionate, 2 spray, each nostril, Daily nngnxlsxfov-jyttubcpn-alegqkgd, 1 puff, inhalation, Daily lidocaine, 1 patch, transdermal, Q24H methocarbamoL, 750 mg, oral, TID rosuvastatin, 40 mg, oral, Daily sertraline, 100 mg, oral, Daily sodium chloride 0.9%, 0.5-20 mL, intra-catheter, Q8H GLORY [Held by Provider] spironolactone, 25 mg, oral, Daily traZODone, 100 mg, oral, Nightly albuterol HFA, 2 puff, inhalation, Q4H PRN (RT) sodium chloride 0.9%, 30 mL, intravenous, PRN heparin, 2,000 Units, intravenous, Q6H PRN OR heparin, 3,000 Units, intravenous, Q6H PRN HYDROmorphone, 0.2 mg, intravenous, Q2H PRN ondansetron ODT, 4 mg, oral, Q6H PRN OR ondansetron, 4 mg, intravenous, Q6H PRN oxyCODONE, 5 mg, oral, Q4H PRN perflutren lipid (DEFINITY) 1.5 mL in sodium chloride 0.9% 10 mL syringe, 1-10 mL, intravenous, Once in imaging polyethylene glycol, 17 g, oral, Daily PRN prochlorperazine, 5 mg, intravenous, Q6H PRN sodium chloride 0.9%, 0.5-20 mL, intra-catheter, PRN heparin, 0-33 Units/kg/hr, Last Rate: 17 Units/kg/hr (11/20/24 2308) sodium chloride 0.9%, 30 mL/hr, Last Rate: 30 mL/hr (11/19/24 1216) Vitals Most Recent Vitals: T 36.5 ??C (97.7 ??F), HR 72, BP 126/64, RR 16, SpO2 94 %. 24hr Min/Max: Temp Min: 36.4 ??C (97.5 ??F) Max: 36.8 ??C (98.2 ??F) Pulse Min: 72 Max: 82 BP Min: 109/47 Max: 126/64 Resp Min: 16 Max: 18 SpO2 Min: 94 % Max: 98 % No intake or output data in the 24 hours ending 11/21/24 0808 Net IO Since Admission: 1,300 mL [11/21/24 0808] Last Weight: 63.1 kg (139 lb 1.8 oz) (11/13/24 1845). Admit Weight: 61.2 kg (135 lb). Last BM: Stool Occurrence Amount: Medium (11/20/24 0533) Physical Exam General: Not in distress, appears comfortable, pain scale 7/10 (spine, around T 10 level) HEENT: Normocephalic, no conjunctival pallor, no scleral icterus Cardiac: Normal rate; regular rhythm; audible S1 and S2 metallic click on mitral area , rubs, or gallops; 2+ radial pulses; no LE edema; no JVD nor hepato- jugular reflux Pulm: clear to auscultation bilaterally; no wheezes, rales, or rhonchi. Pacemaker on the left side of chest. GI/Abd: Soft, nontender, non-distended MSK: Normal bulk and tone, no joint effusions or major deformities, chronic pain on spine. Bx site on T10 level without local bruising or hematoma. Presence of muscle strain on paravertebral area on T10-T12 levels Skin: No rash or bruises Extremities: Warm and well perfused Neuro: AAO x 4, CN II-XII grossly intact, moves all extremities spontaneously Lines, Drains, Airways Peripheral IV 11/13/24 20 G Left;Posterior Hand (Active) Peripheral IV 11/20/24 20 G Anterior;Right Forearm (Active) Labs/Diagnostic Review Na 139 (140) Cl 106 BUN 9 (12) K 3.8 (3.8) CO2 26 (26) Cr 1.31 (1.27) Mg 2.1 (2.3), G (89) AST 34 ( ) ALT 23 ( ) Alk Phos 88 ( ) Ca 8.8 (9.1) TP 7.3 Alb 2.9 Total Bili: <0.2 ( ) Direct Bili: <0.2 ( ) \ Hgb 7.5 (7.7) / WBC 4.56 (5.84) -------- Plt 151 (170) / MCV 87.8 (86.5)\ INR 1.29 (Labs above are the most recent result obtained in the last 24 hours, followed by the 2nd to last lab in the past 3 days, if applicable. For additional labs/trends, see Epic.) Imaging Review No results found. Assessment & Plan Chronic midline thoracic back pain # C/f thoracic discitis / osteomyelitis Chronic back pain since 08/2024. Has had multiple CT scans for workup. Most recent CT thoracic spineshowed c/f discitis osteophyte complex at T10-11, saw NSGY as o/p, told to come to ED for further workup. Endorsing night sweats, 20 lb weight loss, intermittent BUE tingling. No incontinence. No IVDU. Hx of kyphoplasty few years ago to d/t L compression fracture. Hx of OM in foot / leg many years ago iso trauma. ESR/CRP high here. MRI total spine done and MSK IR bx on 11/17.Pending pathology and final cultures. - NSGY signed off on 11/18 as there is no epidural extension or cor compression (MRI report) - Hold warfarin (11/11-) -> heparin gtt for 11/17 IR bx, resumed after - Pain management with GLORY: tylenol 1g q6, robaxin 750mg q8; PRN: oxy 5mg q4 and dilaudid 0.2 IV q2to breakthrough pain. Bacteremia due to Enterococcus #Vegetation on pacemaker leads 1/2 BCx + E. faecalis on 11/13. Unclear source. 20lb weight loss over the last few months. - Bcx negative on 11/15 and pending 11/16 - Started Amp (11/14-) and Ceftriaxone (11/14 -) - TTE on 11/14 lVEF 67% no thrombus, mechanical mitral valve w/o dysfunction - NEVAEH completed on 11/19, possible vegetation on pacemaker leads - MSK Bx with IR on 11/17, pending culture and pathology - ID consult appreciate recs, last blood culture on 11/16. After NEVAEH indicated pacemaker removal - Consult CTS, cardiac surgeon that follow patient was contacted as well (Dr. Adal Moore) - Consult IPAP on 11/21 for pre-op evaluation Pacemaker #AVR (inspiris resilia, 2018) #Pacemaker ([employer] Biv 2015) #pAF on Coumadin, now on heparin drip until pacemaker removal #LVEF 67% (11/14/24) Hx severe s/p AVR placement in and replacement of mechanical AV in 2021. Previously on ECMO reuqiring Mitral valve repair. - Warfarin -> hep gtt in preparation for IR bx on 11/17 - GDMT: on hold coreg (hypotension) and spironolactone (worsening of kidney function and hypotension) Osteomyelitis of thoracic spine (HCC) See above Code status : Full Code Diet : Adult Diet Regular PT/OT recs : Lia Ye MD PGY1 Anesthesia 11/21/2024 8:08 AM Cosigned by Baltazar Manzano MD at 11/22/2024 7:33 AM CDT Associated attestation - Baltazar Manzano MD - 11/22/2024 7:33 AM CDT Attending Documentation I have seen and examined the patient on 11/21/2024. I agree with the findings and plan of care as documented in the resident's/fellow's note. Planning pacemaker removal, earliest Sunday. Biopsy and blood cultures with NGTD. Supplementary Attestation Today, I am treating the patient for osteomyelitis, endocarditis, bacteremia which is in severe exacerbation, progression, or experiencing treatment side effects as evidenced by 11/20 NEVAEH results, need for cardiac surgery consult, need for IV antibiotics, as described in the note. Reviewed records from the following unique sources (external institutions or providers from different services): Cardiac surgery consult note on 11/21, likely removal on Sunday at the earliest. The patient is being intensively monitored for drug toxicity from ampicillin and ceftriaxone by checking CBC and CMP. Baltazar Manzano MD * Cinthya Serrano, RD - 11/20/2024 12:13 PM CDT Nutrition Screen Note Pt. Screened for nutritional assessment secondary to LOS Past Medical History: Diagnosis Date Age-related osteoporosis without current pathological fracture 09/01/2021 Anemia Arthritis Broken heart syndrome Cancer (HCC) skin cancer Depression Depression Fatigue GERD (gastroesophageal reflux disease) 12/06/2011 Heart disease Hyperlipidemia 10/26/2011 Mckenna wants her on Lipitor 40mg qhs Last Assessment & Plan: Status: Stable Interim History: No myalgias. Patient on Lipitor 40 mg qd. Recheck in 3 months labs. Hypertension LBBB (left bundle branch block) 11/18/[address] Villegas at [facility] paper twister tender. Nausea and vomiting 07/25/2022 Osteoarthritis Osteopenia 01/29/2015 DEXA 01/2015 Osteoporosis Paroxysmal atrial fibrillation (HCC) 05/27/2019 Last Assessment & Plan: On Eliquis Pulmonary HTN ([facility]) 11/18/2012 [facility] documentation seen on ECHO. Severe mitral regurgitation 11/18/2012 Emilie at [facility] paper twister tender. Message from daysoft sent at 11/15/2018 4:29 PM [facility] ----- De Dr. Farnsworth. Just FYI regarding my hospital visit, I have an appointment with Dr. Butler???s at [facility] on This Sunday for my TAVR work up. Last Assessment & Plan: Formatting of this note might be different from the mars Shortness of breath Systolic heart failure (HCC) 11/18/2012 [facility] stage III Coreg Lasix and Lisinopril started in hospital in November. Dr. Phan paper twister tender. Last Assessment & Plan: Status: Stable Interim History: No cp's, sob, PTE or calf pains. No weight gains. Continue with Cardiology. Past Surgical History: Procedure Laterality Date ANTERIOR CRUCIATE LIGAMENT REPAIR Right 2003 AORTIC VALVE REPLACEMENT 2019 21mm Inspiris AORTIC VALVULOPLASTY 2019 BIOPSY DEEP BONE N/A 11/17/2024 CARDIAC VALVE REPLACEMENT 2019 CHOLECYSTECTOMY 2018 HYSTERECTOMY 1986 INSERT / REPLACE / REMOVE PACEMAKER 2016 original 2012 KYPHOPLASTY 2021 SKIN CANCER EXCISION Anthropometrics Weight: 63.1 kg (139 lb 1.8 oz) Admission Weight : 63.1 kg Weight Change: 1.86 kg (4.11 lbs) IBW/kg (Calculated) : 49.9 kg Height: 157.5 cm (5' 2) Weight in (lb) to have BMI = 25: 136.4 BMI (Calculated): 25.4 Adult Malnutrition Scoring Tool (MST) Have You Recently Lost Weight Without Trying?: No Have you been eating poorly because of a decreased appetite?: No Malnutrition Screening Tool (MST) Score: 0 Dietary Orders (From admission, onward) Start Ordered 11/19/24 1636 Adult Diet Regular Diet effective now Question: ([facility]) Diet type Answer: Regular 11/19/24 1635 Assessment / Impression: Pt reports that she is eating about 75% of her meals. She denies any nausea, vomiting, diarrhea, or constipation. She has no questions at nutrition at this time. Pt's last BMwas yesterday. Appears per owner manager that the pt had a small episode of emesis this morning.Will continue to monitor. Cinthya Serrano * Lia Hernandez MD - 11/20/2024 8:42 AM CDT Daily Progress Note Firm Service Name: Kendal Cinseros : 1955 Today's Date: November 20, 2024 Age: 69 y.o. female Admit Date: 11/13/2024 Bed: [id number] LOS: 7 days Subjective Interval History - Patient reports increase in back pain last night, started on lidocaine patch, exam this morning compatible with muscle strain. - NEVAEH results with possible vegetation on pacemaker leads, consult cardiothoracic surgery for removal - BC from 11/15 negative - final report. Waiting for culture from 11/16 and pathology from 11/17 Plan: - Increased dose of robaxin to 750mg TID - ID after NEVAEH results indicated removal of pacemaker by CTS - Waiting for BC from 11/16 and pathology 11/17 results - On hepatin gtt until clinically stable and all results are back, and pacemaker removal, aPTT on goal - Discussed with patient next steps after NEVAEH results and ID recommendations. Objective Scheduled Meds PRN Meds Infusions acetaminophen, 1,000 mg, oral, Q6H GLORY ampicillin, 2,000 mg, intravenous, Q6H GLORY [Held by Provider] carvediloL, 12.5 mg, oral, BID with meals (bkfst, dinner) cefTRIAXone, 2,000 mg, intravenous, Q12H GLORY famotidine, 40 mg, oral, Daily fluticasone propionate, 2 spray, each nostril, Daily yarqeextbox-ofdzvpjvw-zugguddm, 1 puff, inhalation, Daily lidocaine, 1 patch, transdermal, Q24H methocarbamoL, 750 mg, oral, TID rosuvastatin, 40 mg, oral, Daily sertraline, 100 mg, oral, Daily sodium chloride 0.9%, 0.5-20 mL, intra-catheter, Q8H GLORY [Held by Provider] spironolactone, 25 mg, oral, Daily traZODone, 100 mg, oral, Nightly albuterol HFA, 2 puff, inhalation, Q4H PRN (RT) sodium chloride 0.9%, 30 mL, intravenous, PRN heparin, 2,000 Units, intravenous, Q6H PRN OR heparin, 3,000 Units, intravenous, Q6H PRN HYDROmorphone, 0.2 mg, intravenous, Q2H PRN ondansetron ODT, 4 mg, oral, Q6H PRN OR ondansetron, 4 mg, intravenous, Q6H PRN oxyCODONE, 5 mg, oral, Q4H PRN perflutren lipid (DEFINITY) 1.5 mL in sodium chloride 0.9% 10 mL syringe, 1-10 mL, intravenous, Once in imaging polyethylene glycol, 17 g, oral, Daily PRN prochlorperazine, 5 mg, intravenous, Q6H PRN sodium chloride 0.9%, 0.5-20 mL, intra-catheter, PRN heparin, 0-33 Units/kg/hr, Last Rate: 17 Units/kg/hr (11/20/24 0003) sodium chloride 0.9%, 30 mL/hr, Last Rate: 30 mL/hr (11/19/24 1216) Vitals Most Recent Vitals: T 36.4 ??C (97.5 ??F), HR 60, BP 128/60, RR 18, SpO2 91 %. 24hr Min/Max: Temp Min: 36.4 ??C (97.5 ??F) Max: 37 ??C (98.6 ??F) Pulse Min: 60 Max: 87 BP Min: 104/51 Max: 152/81 Resp Min: 15 Max: 24 SpO2 Min: 90 % Max: 100 % Intake/Output Summary (Last 24 hours) at 11/20/2024 1357 Last data filed at 11/19/2024 1520 Gross per 24 hour Intake 600 ml Output -- Net 600 ml Net IO Since Admission: 1,300 mL [11/20/24 1357] Last Weight: 63.1 kg (139 lb 1.8 oz) (11/13/24 1845). Admit Weight: 61.2 kg (135 lb). Last BM: Stool Occurrence Amount: Medium (11/20/24 0533) Physical Exam General: Not in distress, appears comfortable, pain scale 7/10 (spine, around T 10 level) HEENT: Normocephalic, no conjunctival pallor, no scleral icterus Cardiac: Normal rate; regular rhythm; audible S1 and S2 metallic click on mitral area , rubs, or gallops; 2+ radial pulses; no LE edema; no JVD nor hepato- jugular reflux Pulm: clear to auscultation bilaterally; no wheezes, rales, or rhonchi. Pacemaker on the left side of chest. GI/Abd: Soft, nontender, non-distended MSK: Normal bulk and tone, no joint effusions or major deformities, chronic pain on spine. Bx site on T10 level without local bruising or hematoma. Presence of muscle strain on paravertebral area on T10-T12 levels Skin: No rash or bruises Extremities: Warm and well perfused Neuro: AAO x 4, CN II-XII grossly intact, moves all extremities spontaneously Lines, Drains, Airways Peripheral IV 11/13/24 20 G Left;Posterior Hand (Active) Peripheral IV 11/14/24 22 G Anterior;Right Hand (Active) Labs/Diagnostic Review Na 140 (139) Cl 105 BUN 12 (14) K 3.8 (3.8) CO2 26 (26) Cr 1.27 (1.4) Mg 2.3 (2.2), G (99) AST 34 ( ) ALT 23 ( ) Alk Phos 88 ( ) Ca 9.1 (9.4) TP 7.3 Alb 2.9 Total Bili: <0.2 ( ) Direct Bili: <0.2 ( ) \ Hgb 7.7 (7.8) / WBC 5.84 (4.71) -------- Plt 170 (166) / MCV 86.5 (86.6)\ INR 1.30 (Labs above are the most recent result obtained in the last 24 hours, followed by the 2nd to last lab in the past 3 days, if applicable. For additional labs/trends, see Epic.) Imaging Review No results found. Assessment & Plan Chronic midline thoracic back pain # C/f thoracic discitis / osteomyelitis Chronic back pain since 08/2024. Has had multiple CT scans for workup. Most recent CT thoracic spineshowed c/f discitis osteophyte complex at T10-11, saw NSGY as o/p, told to come to ED for further workup. Endorsing night sweats, 20 lb weight loss, intermittent BUE tingling. No incontinence. No IVDU. Hx of kyphoplasty few years ago to d/t L compression fracture. Hx of OM in foot / leg many years ago iso trauma. ESR/CRP high here. MRI total spine done and MSK IR bx on 11/17.Pending pathology and final cultures. - NSGY signed off on 11/18 as there is no epidural extension or cor compression (MRI report) - Hold warfarin (11/11-) -> heparin gtt for 11/17 IR bx, resumed after - Pain management with GLORY: tylenol 1g q6, robaxin 750mg q8; PRN: oxy 5mg q4 and dilaudid 0.2 IV q2to breakthrough pain, lidocaine patch Bacteremia due to Enterococcus 1/2 BCx + E. faecalis on 11/13. Unclear source. 20lb weight loss over the last few months. - Bcx negative on 11/15 and pending 11/16 - Started Amp (11/14-) and Ceftriaxone (11/14 -) - TTE on 11/14 lVEF 67% no thrombus, mechanical mitral valve w/o dysfunction - NEVAEH completed on 11/19, possible vegetation on pacemaker leads, - MSK Bx with IR on 11/17, pending culture and pathology - ID consult appreciate recs, last blood culture on 11/16. After NEVAEH indicated pacemaker removal - Consult CTS, cardiac surgeon that follow patient was contacted as well (Dr. Adal Moore) Pacemaker #AVR (inspiris resilia, 2019) #Pacemaker ([employer] Biv 2015) #pAF on Coumadin, now on heparin drip until pacemaker removal #LVEF 67% (11/14/24) Hx severe s/p AVR placement in and replacement of mechanical AV in 2021. Previously on ECMO reuqiring Mitral valve repair. - Warfarin -> hep gtt in preparation for IR bx on 11/17 - GDMT: on hold coreg (hypotension) and spironolactone (worsening of kidney function and hypotension) Osteomyelitis of thoracic spine (HCC) See above Code status : Full Code Diet : Adult Diet Regular PT/OT recs : Lia Ye MD PGY1 Anesthesia 11/20/2024 1:57 PM Cosigned by Baltazar Manzano MD at 11/20/2024 8:41 PM CDT Associated attestation - Baltazar Manzano MD - 11/20/2024 8:41 PM CDT Attending Documentation I have seen and examined the patient on 11/20/24. I agree with the findings and plan of care as documented in the resident's/fellow's note. NEVAEH with possible vegetation, ID recommended removal of pacemaker. Consult cardiac surgery. Continue ceftriaxone and ampicillin. Supplementary Attestation Today, I am treating the patient for endocarditis, osteomyelitis, bacteremia which is in severe exacerbation, progression, or experiencing treatment side effects as evidenced by 11/20 NEVAEH results suspicious for vegetation, need for cardiac surgery consult, as described in the note. Reviewed records from the following unique sources (external institutions or providers from different services): ID c/s 11/20 which recommended to remove pacemaker leads. The patient is being intensively monitored for drug toxicity from ampicillin and ceftriaxone by checking CBC and CMP. Baltazar Manzano MD * Lia Hernandez MD - 11/19/2024 12:26 PM CDT Daily Progress Note Firm Service Name: Kendal Cisneros : 1955 Today's Date: November 19, 2024 Age: 69 y.o. female Admit Date: 11/13/2024 Bed: [id number] LOS: 6 days Subjective Interval History - Patient stable, no complaints today. Pain well controlled - NPO for NEVAEH today in the afternoon - Waiting for culture and pathology from 11/17 Plan: - Pending NEVAEH, later today - Waiting for BC and pathology results - On hepatin gtt until clinically stable and all results are back - Discussed with patient next steps. Objective Scheduled Meds PRN Meds Infusions acetaminophen, 1,000 mg, oral, Q6H GLORY ampicillin, 2,000 mg, intravenous, Q6H GLORY [Held by Provider] carvediloL, 12.5 mg, oral, BID with meals (bkfst, dinner) cefTRIAXone, 2,000 mg, intravenous, Q12H GLORY famotidine, 40 mg, oral, Daily fluticasone propionate, 2 spray, each nostril, Daily swcwkwgdyaf-uecsqicwu-yhapwfxj, 1 puff, inhalation, Daily methocarbamoL, 500 mg, oral, TID rosuvastatin, 40 mg, oral, Daily sertraline, 100 mg, oral, Daily sodium chloride 0.9%, 0.5-20 mL, intra-catheter, Q8H GLORY [Held by Provider] spironolactone, 25 mg, oral, Daily traZODone, 100 mg, oral, Nightly albuterol HFA, 2 puff, inhalation, Q4H PRN (RT) sodium chloride 0.9%, 30 mL, intravenous, PRN heparin, 2,000 Units, intravenous, Q6H PRN OR heparin, 3,000 Units, intravenous, Q6H PRN HYDROmorphone, 0.2 mg, intravenous, Q2H PRN ondansetron ODT, 4 mg, oral, Q6H PRN OR ondansetron, 4 mg, intravenous, Q6H PRN oxyCODONE, 5 mg, oral, Q4H PRN perflutren lipid (DEFINITY) 1.5 mL in sodium chloride 0.9% 10 mL syringe, 1-10 mL, intravenous, Once in imaging polyethylene glycol, 17 g, oral, Daily PRN prochlorperazine, 5 mg, intravenous, Q6H PRN sodium chloride 0.9%, 0.5-20 mL, intra-catheter, PRN heparin, 0-33 Units/kg/hr, Last Rate: 17 Units/kg/hr (11/19/24 0902) sodium chloride 0.9%, 30 mL/hr, Last Rate: 30 mL/hr (11/19/24 1216) Vitals Most Recent Vitals: T 36.8 ??C (98.2 ??F), HR 75, BP 144/68, RR 13, SpO2 98 %. 24hr Min/Max: Temp Min: 36.5 ??C (97.7 ??F) Max: 36.8 ??C (98.2 ??F) Pulse Min: 73 Max: 86 BP Min: 90/68 Max: 144/68 Resp Min: 13 Max: 18 SpO2 Min: 94 % Max: 99 % Intake/Output Summary (Last 24 hours) at 11/19/2024 1227 Last data filed at 11/19/2024 0820 Gross per 24 hour Intake 60 ml Output -- Net 60 ml Net IO Since Admission: 700 mL [11/19/241226] Last Weight: 63.1 kg (139 lb 1.8 oz) (11/13/241844). Admit Weight: 61.2 kg (135 lb). Last BM: Stool Occurrence Amount: Small (11/17/242028) Physical Exam General: Not in distress, appears comfortable HEENT: Normocephalic, no conjunctival pallor, no scleral icterus Cardiac: Normal rate; regular rhythm; audible S1 and S2 metallic click on mitral area , rubs, or gallops; 2+ radial pulses; no LE edema; no JVD nor hepato- jugular reflux Pulm: clear to auscultation bilaterally; no wheezes, rales, or rhonchi. Pacemaker on the left side of chest. GI/Abd: Soft, nontender, non-distended MSK: Normal bulk and tone, no joint effusions or major deformities, chronic pain on spine. Bx site on T10 level without local bruising or hematoma. Skin: No rash or bruises Extremities: Warm and well perfused Neuro: AAO x 4, CN II-XII grossly intact, moves all extremities spontaneously Lines, Drains, Airways Peripheral IV 11/13/24 20 G Left;Posterior Hand (Active) Peripheral IV 11/14/24 22 G Anterior;Right Hand (Active) Labs/Diagnostic Review Na 139 (141) Cl 106 BUN 14 (13) K 3.8 (3.9) CO2 26 (26) Cr 1.40 (1.41) Mg 2.2 (2.4), G (98) AST - ( ) ALT - ( ) Alk Phos - ( ) Ca 9.4 (9.7) TP - Alb - Total Bili: - ( ) Direct Bili: - ( ) \ Hgb 7.8 (8.7) / WBC 4.71 (4.84) -------- Plt 166 (183) / MCV 86.6 (88)\ INR 1.43 (Labs above are the most recent result obtained in the last 24 hours, followed by the 2nd to last lab in the past 3 days, if applicable. For additional labs/trends, see Epic.) Imaging Review MRI Spine Total Complete W WO Contrast Result Date: 11/17/2024 1. Abnormal signal within the T10-T11 vertebral bodies and disc space with cortical erosion and paraspinal soft tissue edema, concerning for osteomyelitis discitis at this level. 2. Redemonstrated J4hwinnzsuc body compression fracture with postoperative changes of augmentation. 3. Nonspecific hyperintense signal within the david, incompletely evaluated. Recommend dedicated brain MRI if clinicallyindicated. 4. Mild to moderate degenerative changes of the cervical, thoracic, and lumbar spine as above. Dictated by: Ariel Babb M.D. The radiology attending physician has personally reviewed this study, and had reviewed and/or edited this written report and agrees with it. Electronically signed by: Jessica Pagan M.D. IR Biopsy Deep Bone Result Date: 11/17/2024 1. T10-T11 bone/disc biopsy under fluoroscopic guidance. The core specimens and aspirate were sent to surgical pathology and microbiology. Electronically signed by: Riley Joya MD Assessment & Plan Chronic midline thoracic back pain # C/f thoracic discitis / osteomyelitis Chronic back pain since 08/2024. Has had multiple CT scans for workup. Most recent CT thoracic spineshowed c/f discitis osteophyte complex at T10-11, saw NSGY as o/p, told to come to ED for further workup. Endorsing night sweats, 20 lb weight loss, intermittent BUE tingling. No incontinence. No IVDU. Hx of kyphoplasty few years ago to d/t L compression fracture. Hx of OM in foot / leg many years ago iso trauma. ESR/CRP high here. Pending MRI total spine and MSK IR bx on 11/17. - NSGY signed off on 11/18 as there is no epidural extension or cor compression (MRI report) - Hold warfarin (11/11-) -> heparin gtt for 11/17 IR bx, resumed after - Pain management with GLORY: tylenol 1g q6, robaxin 50mg q8; PRN: oxy 5mg q4 and dilaudid 0.2 IV q2 to breakthrough pain Bacteremia due to Enterococcus /2 BCx + E. faecalis on 11/13. Unclear source. 20lb weight loss over the last few months. - Bcx NGTD since 11/15 - Start Amp (11/14-) and Ceftriaxone (11/14 -) - TTE on 11/14 lVEF 67% no thrombus, mechanical mitral valve w/o dysfunction - NEVAEH planned for 11/17 to assess indication for PPM lead extraction - MSK Bx with IR on 11/17, pending culture and pathology - ID consult appreciate recs, repeat daily blood cultures until negative for 48h. Pacemaker #AVR (inspiris resilia, 2019) #Pacemaker ([employer] 2015) #pAF on Coumadin #LVEF 67% (11/14/24) Hx severe s/p AVR placement in and replacement of mechanical AV in 2021. Previously on ECMO reuqiring Mitral valve repair. - Warfarin -> hep gtt in preparation for IR bx on 11/17 - GDMT: on hold coreg (hypotension) and spironolactone (worsening of kidney function and hypotension) Osteomyelitis of thoracic spine (HCC) See above Code status : Full Code Diet : NPO Diet PT/OT recs : Lia Ye MD PGY1 Anesthesia 11/19/2024 12:27 PM Cosigned by Baltazar Manzano MD at 11/19/2024 12:44 PM CDT Associated attestation - Baltazar Manzano MD - 11/19/2024 12:44 PM CDT Attending Documentation I have seen and examined the patient on 11/19/24. I agree with the findings and plan of care as documented in the resident's/fellow's note. MRI total spine showed abnormal signal within T10-T11. Biopsy cultures with NGTD. Continue antibiotics. NEVAEH today. Supplementary Attestation Today, I am treating the patient for osteomyelitis which is in severe exacerbation, progression, orexperiencing treatment side effects as evidenced by MRI spine results, as described in the note. Reviewed records from the following unique sources (external institutions or providers from different services): 11/18 ID consult note which recommended to continue current regimen. The patient is being intensively monitored for drug toxicity from ampicillin and ceftriaxone by checking CBC and CMP. Baltazar Manzano MD * Lia Hernandez MD - 11/18/2024 10:44 AM CDT Daily Progress Note Firm Service Name: Kendal Cisneros : 1955 Today's Date: November 18, 2024 Age: 69 y.o. female Admit Date: 11/13/2024 Bed: [id number] LOS: 5 days Subjective Interval History - HDS, AF, no infectious symptoms. Reports improvement of nausea, and discrete [pain no bx site - Bx on 11/17 without complications, no bleeding noted. - BCx NGTD on 11/15 and 11/16 while on Ampicillin/CTX - MRI on 11/17 see reports below - Neurosurgery signed off as there s no signs f cor compression nor epidural extension. Plan: - Pending NEVAEH, possible tomorrow - Waiting for BC and pathology results - On hepatin gtt - discuss resume coumadin after NEVAEH Objective Scheduled Meds PRN Meds Infusions acetaminophen, 1,000 mg, oral, Q6H GLORY ampicillin, 2,000 mg, intravenous, Q6H GLORY [Held by Provider] carvediloL, 12.5 mg, oral, BID with meals (bkfst, dinner) cefTRIAXone, 2,000 mg, intravenous, Q12H GLORY famotidine, 40 mg, oral, Daily fluticasone propionate, 2 spray, each nostril, Daily mneqbcwcosh-hlfnweyff-twhjwnnh, 1 puff, inhalation, Daily methocarbamoL, 500 mg, oral, TID rosuvastatin, 40 mg, oral, Daily sertraline, 100 mg, oral, Daily sodium chloride 0.9%, 0.5-20 mL, intra-catheter, Q8H GLORY [Held by Provider] spironolactone, 25 mg, oral, Daily traZODone, 100 mg, oral, Nightly albuterol HFA, 2 puff, inhalation, Q4H PRN (RT) sodium chloride 0.9%, 30 mL, intravenous, PRN heparin, 2,000 Units, intravenous, Q6H PRN OR heparin, 3,000 Units, intravenous, Q6H PRN HYDROmorphone, 0.2 mg, intravenous, Q2H PRN ondansetron ODT, 4 mg, oral, Q6H PRN OR ondansetron, 4 mg, intravenous, Q6H PRN oxyCODONE, 5 mg, oral, Q4H PRN perflutren lipid (DEFINITY) 1.5 mL in sodium chloride 0.9% 10 mL syringe, 1-10 mL, intravenous, Once in imaging polyethylene glycol, 17 g, oral, Daily PRN prochlorperazine, 5 mg, intravenous, Q6H PRN sodium chloride 0.9%, 0.5-20 mL, intra-catheter, PRN heparin, 0-33 Units/kg/hr, Last Rate: 17 Units/kg/hr (11/18/24 05) Vitals Most Recent Vitals: T 36.6 ??C (97.9 ??F), HR 72, BP 124/57, RR 17, SpO2 96 %. 24hr Min/Max: Temp Min: 36.5 ??C (97.7 ??F) Max: 36.7 ??C (98.1 ??F) Pulse Min: 68 Max: 88 BP Min: 87/61 Max: 143/61 Resp Min: 8 Max: 20 SpO2 Min: 89 % Max: 100 % Intake/Output Summary (Last 24 hours) at 11/18/2024 1049 Last data filed at 11/18/2024 0410 Gross per 24 hour Intake 370 ml Output -- Net 370 ml Net IO Since Admission: 640 mL [11/18/24 1049] Last Weight: 63.1 kg (139 lb 1.8 oz) (11/13/24 184). Admit Weight: 61.2 kg (135 lb). Last BM: Stool Occurrence Amount: Small (11/17/242028) Physical Exam General: Not in distress, appears comfortable HEENT: Normocephalic, no conjunctival pallor, no scleral icterus Cardiac: Normal rate; regular rhythm; audible S1 and S2 metallic click on mitral area , rubs, or gallops; 2+ radial pulses; no LE edema; no JVD nor hepato- jugular reflux Pulm: clear to auscultation bilaterally; no wheezes, rales, or rhonchi. Pacemaker on the left side of chest. GI/Abd: Soft, nontender, non-distended MSK: Normal bulk and tone, no joint effusions or major deformities, chronic pain on spine. Bx site on T10 level without local bruising or hematoma. Skin: No rash or bruises Extremities: Warm and well perfused Neuro: AAO x 4, CN II-XII grossly intact, moves all extremities spontaneously Lines, Drains, Airways Peripheral IV 11/13/24 20 G Left;Posterior Hand (Active) Peripheral IV 11/14/24 22 G Anterior;Right Hand (Active) Labs/Diagnostic Review Na 141 (142) Cl 106 BUN 13 (16) K 3.9 (4) CO2 26 (26) Cr 1.41 (1.4) Mg 2.4 (1.8), G (120) AST - ( ) ALT - ( ) Alk Phos - ( ) Ca 9.7 (9.1) TP - Alb - Total Bili: - ( ) Direct Bili: - ( ) \ Hgb 8.7 (7.4) / WBC 4.84 (5.26) -------- Plt 183 (175) / MCV 88.0 (85.7)\ INR 1.48 (Labs above are the most recent result obtained in the last 24 hours, followed by the 2nd to last lab in the past 3 days, if applicable. For additional labs/trends, see Epic.) Imaging Review MRI Spine Total Complete W WO Contrast Result Date: 11/17/2024 1. Abnormal signal within the T10-T11 vertebral bodies and disc space with cortical erosion and paraspinal soft tissue edema, concerning for osteomyelitis discitis at this level. 2. Redemonstrated M4luffrosbv body compression fracture with postoperative changes of augmentation. 3. Nonspecific hyperintense signal within the david, incompletely evaluated. Recommend dedicated brain MRI if clinicallyindicated. 4. Mild to moderate degenerative changes of the cervical, thoracic, and lumbar spine as above. Dictated by: Ariel Babb M.D. The radiology attending physician has personally reviewed this study, and had reviewed and/or edited this written report and agrees with it. Electronically signed by: Jessica Pagan M.D. IR Biopsy Deep Bone Result Date: 11/17/2024 1. T10-T11 bone/disc biopsy under fluoroscopic guidance. The core specimens and aspirate were sent to surgical pathology and microbiology. Electronically signed by: Riley Joya MD Assessment & Plan Chronic midline thoracic back pain # C/f thoracic discitis / osteomyelitis Chronic back pain since 08/2024. Has had multiple CT scans for workup. Most recent CT thoracic spineshowed c/f discitis osteophyte complex at T10-11, saw NSGY as o/p, told to come to ED for further workup. Endorsing night sweats, 20 lb weight loss, intermittent BUE tingling. No incontinence. No IVDU. Hx of kyphoplasty few years ago to d/t L compression fracture. Hx of OM in foot / leg many years ago iso trauma. ESR/CRP high here. Pending MRI total spine and MSK IR bx on 11/17. - NSGY signed off on 11/18 as there is no epidural extension or cor compression (MRI report) - Hold warfarin (11/11-) -> heparin gtt for 11/17 IR bx, resumed after - Pain management with GLORY: tylenol 1g q6, robaxin 50mg q8; PRN: oxy 5mg q4 and dilaudid 0.2 IV q2 to breakthrough pain Bacteremia due to Enterococcus 1/2 BCx + E. faecalis on 11/13. Unclear source. 20lb weight loss over the last few months. - Bcx NGTD since 11/15 - Start Amp (11/14-) and Ceftriaxone (11/14 -) - TTE on 11/14 lVEF 67% no thrombus, mechanical mitral valve w/o dysfunction - NEVAEH planned for 11/17 to assess indication for PPM lead extraction - MSK Bx with IR on 11/17 - ID consult appreciate recs, repeat daily blood cultures until negative for 48h. Pacemaker #AVR (inspiris resilia, 2019) #Pacemaker ([employer] 2015) #pAF on Coumadin #LVEF 67% (11/14/24) Hx severe s/p AVR placement in and replacement of mechanical AV in 2021. Previously on ECMO reuqiring Mitral valve repair. - Warfarin -> hep gtt in preparation for IR bx on 11/17 - GDMT: on hold coreg (hypotension) and spironolactone (worsening of kidney function and hypotension) Code status : Full Code Diet : Adult Diet Regular PT/OT recs : Lia Ye MD PGY1 Anesthesia 11/18/2024 10:49 AM Cosigned by Baltazar Manzano MD at 11/18/2024 3:17 PM CDT Associated attestation - Baltazar Manzano MD - 11/18/2024 3:17 PM CDT Attending Documentation I have seen and examined the patient on 11/18/24. I agree with the findings and plan of care as documented in the resident's/fellow's note. 11/17/24 MRI total spine showed T10-11 abnormality concerning for osteomyelitis. MSK IR biopsy with NGTD. Blood cultures after 11/13 remain negative. Continue antibiotics. NEVAEH tomorrow morning. Supplementary Attestation Today, I am treating the patient for osteomyelitis which is in severe exacerbation, progression, orexperiencing treatment side effects as evidenced by MRI spine results, as described in the note. Reviewed records from the following unique sources (external institutions or providers from different services): Neurosurgery note from 11/18 in which they did not recommend surgical treatment. The patient is being intensively monitored for drug toxicity from ceftriaxone and ampicillin by checking CBC and CMP. Baltazar Manzano MD * Carmita Grey MD - 11/18/2024 7:13 AM CDT Neurosurgery Sign-Off Note This patient was seen by the Neurosurgery team for T10-11 OM/diskitis without epidural extension orcord compression, which was managed non-operatively with observation. This patient was staffed withDr. Sarabia, who reviewed the patient's history and imaging. No neurosurgical intervention indicated at this time. Recommend conservative management with antibiotics per ID. Follow-up plan The patient does not require outpatient follow-up with our team. If there are further questions or concerns regarding this patient, please page the Neurosurgery call pager at [phone], and request the resident caring for Dr. Sarabia's patients. Carmita Grey MD * Ann Bangura MD - 11/17/2024 1:04 PM CDT Daily Progress Note Firm Service Name: Kendal Cisneros : 1955 Today's Date: November 17, 2024 Age: 69 y.o. female Admit Date: 11/13/2024 Bed: [id number] LOS: 4 days Subjective Interval History - HDS, AF, no infectious symptoms. Still endorses some nausea that improves with eating grahm crackers. - BCx NGTD since 11/15 while on Ampicillin/CTX Plan: - Pending NEVAEH, MRI total spine and IR bx today Objective Scheduled Meds PRN Meds Infusions acetaminophen, 1,000 mg, oral, Q6H GLORY ampicillin, 2,000 mg, intravenous, Q6H GLORY [Held by Provider] carvediloL, 12.5 mg, oral, BID with meals (bkfst, dinner) cefTRIAXone, 2,000 mg, intravenous, Q12H GLORY famotidine, 40 mg, oral, Daily fluticasone propionate, 2 spray, each nostril, Daily mgsgccyqenz-gquxeltug-ajbveqaf, 1 puff, inhalation, Daily methocarbamoL, 500 mg, oral, TID rosuvastatin, 40 mg, oral, Daily sertraline, 100 mg, oral, Daily sodium chloride 0.9%, 0.5-20 mL, intra-catheter, Q8H GLORY [Held by Provider] spironolactone, 25 mg, oral, Daily traZODone, 100 mg, oral, Nightly albuterol HFA, 2 puff, inhalation, Q4H PRN (RT) sodium chloride 0.9%, 30 mL, intravenous, PRN heparin, 2,000 Units, intravenous, Q6H PRN OR heparin, 3,000 Units, intravenous, Q6H PRN HYDROmorphone, 0.2 mg, intravenous, Q2H PRN ondansetron ODT, 4 mg, oral, Q6H PRN OR ondansetron, 4 mg, intravenous, Q6H PRN oxyCODONE, 5 mg, oral, Q4H PRN perflutren lipid (DEFINITY) 1.5 mL in sodium chloride 0.9% 10 mL syringe, 1-10 mL, intravenous, Once in imaging polyethylene glycol, 17 g, oral, Daily PRN prochlorperazine, 5 mg, intravenous, Q6H PRN sodium chloride 0.9%, 0.5-20 mL, intra-catheter, PRN [Held by Provider] heparin, 0-33 Units/kg/hr, Last Rate: Stopped (11/17/24 0957) Vitals Most Recent Vitals: T 36.5 ??C (97.7 ??F), HR 85, BP 143/61, RR 18, SpO2 91 %. 24hr Min/Max: Temp Min: 36.3 ??C (97.3 ??F) Max: 36.6 ??C (97.9 ??F) Pulse Min: 70 Max: 87 BP Min: 87/61 Max: 143/61 Resp Min: 18 Max: 18 SpO2 Min: 89 % Max: 98 % Intake/Output Summary (Last 24 hours) at 11/17/2024 1304 Last data filed at 11/17/2024 0535 Gross per 24 hour Intake 40 ml Output -- Net 40 ml Net IO Since Admission: 270 mL [11/17/24 1304] Last Weight: 63.1 kg (139 lb 1.8 oz) (11/13/24 184). Admit Weight: 61.2 kg (135 lb). Last BM: Stool Occurrence Amount: Small (11/16/241924) Physical Exam General: Not in distress, appears comfortable HEENT: Normocephalic, no conjunctival pallor, no scleral icterus Cardiac: Normal rate; regular rhythm; audible S1 and S2 metallic click on mitral area , rubs, or gallops; 2+ radial pulses; no LE edema; no JVD nor hepato- jugular reflux Pulm: clear to auscultation bilaterally; no wheezes, rales, or rhonchi. Pacemaker on the left side of chest GI/Abd: Soft, nontender, non-distended MSK: Normal bulk and tone, no joint effusions or major deformities, chronic pain on spine Skin: No rash or bruises Extremities: Warm and well perfused Neuro: AAO x 4, CN II-XII grossly intact, moves all extremities spontaneously Lines, Drains, Airways Peripheral IV 11/13/24 20 G Left;Posterior Hand (Active) Peripheral IV 11/14/24 22 G Anterior;Right Hand (Active) Labs/Diagnostic Review Na 142 (137) Cl 107 BUN 16 (14) K 4.0 (3.3) CO2 26 (22) Cr 1.40 (1.2) Mg 1.8 (2.4), G (125) AST - ( ) ALT - ( ) Alk Phos - ( ) Ca 9.1 (7.7) TP - Alb - Total Bili: - ( ) Direct Bili: - ( ) \ Hgb 7.4 (7.1) / WBC 5.26 (4.2) -------- Plt 175 (160) / MCV 85.7 (85.4)\ INR 1.51 (Labs above are the most recent result obtained in the last 24 hours, followed by the 2nd to last lab in the past 3 days, if applicable. For additional labs/trends, see Epic.) Imaging Review No results found. Assessment & Plan Chronic midline thoracic back pain # C/f thoracic discitis / osteomyelitis Chronic back pain since 08/2024. Has had multiple CT scans for workup. Most recent CT thoracic spineshowed c/f discitis osteophyte complex at T10-11, saw NSGY as o/p, told to come to ED for further workup. Endorsing night sweats, 20 lb weight loss, intermittent BUE tingling. No incontinence. No IVDU. Hx of kyphoplasty few years ago to d/t L compression fracture. Hx of OM in foot / leg many years ago iso trauma. ESR/CRP high here. Pending MRI total spine and MSK IR bx on 11/17. - NSGY following - Hold warfarin (11/11-) -> heparin gtt for 11/17 IR bx - Pain management with GLORY: tylenol 1g q6, robaxin 50mg q8; PRN: oxy 5mg q4 and dilaudid 0.2 IV q2 to breakthrough pain Bacteremia due to Enterococcus 1/2 BCx + E. faecalis on 11/13. Unclear source. 20lb weight loss over the last few months. - Bcx NGTD since 11/15 - Start Amp (11/14-) and Ceftriaxone (11/14 -) - TTE on 11/14 lVEF 67% no thrombus, mechanical mitral valve w/o dysfunction - NEVAEH planned for 11/17 to assess indication for PPM lead extraction - MSK Bx with IR on 11/17 - ID consult appreciate recs, repeat daily blood cultures until negative for 48h Pacemaker #AVR (inspiris resilia, 2018) #Pacemaker ([employer] 2015) #pAF on Coumadin #LVEF 67% (11/14/24) Hx severe s/p AVR placement in and replacement of mechanical AV in 2021. Previously on ECMO reuqiring Mitral valve repair. - Warfarin -> hep gtt in preparation for IR bx on 11/17 - GDMT: on hold coreg (hypotension) and spironolactone (worsening of kidney function and hypotension) Code status : Full Code Diet : NPO Diet PT/OT recs : Ann Bangura MD PhD Internal Medicine PGY-2 11/17/2024 1:10 PM Cosigned by Baltazar Manzano MD at 11/17/2024 6:33 PM CDT Associated attestation - Baltazar Manzano MD - 11/17/2024 6:33 PM CDT Attending Documentation Patient was off the floor for the majority of the day for MRI total spine, MSK biopsy, and NEVAEH. I did not personally see or examine the patient. I agree with the findings and plan of care as discussed with the resident/fellow. Supplementary Attestation Baltazar Manzano MD * Lia Hernandez MD - 11/16/2024 7:12 AM CDT Daily Progress Note Firm Service Name: Kendal Cisneros : 1955 Today's Date: November 16, 2024 Age: 69 y.o. female Admit Date: 11/13/2024 Bed: [id number] LOS: 3 days Subjective Interval History - Patient reports improvement of back pain /, pain increases during mobilization, had no difficult to sleep - NEVAEH and Bx with IR scheduled for tomorrow, will be NPO at midnight - Pacemaker interrogated patient not dependent, waiting for MRI to be scheduled - Blood cultures positive for E. Faecalis, waiting of susceptibility test, needs BC daily continue ceftriaxone and ampicillin Plan: - NPO at midnight for for NEVAEH on Sunday and Bx with IR - Waiting for blood cultures susceptibility test, per ID: repeat daily blood cultures until negative for 48h - Pain management Objective Scheduled Meds PRN Meds Infusions acetaminophen, 1,000 mg, oral, Q6H GLORY ampicillin, 2,000 mg, intravenous, Q6H GLORY [Held by Provider] carvediloL, 12.5 mg, oral, BID with meals (bkfst, dinner) cefTRIAXone, 2,000 mg, intravenous, Q12H GLORY famotidine, 40 mg, oral, Daily fluticasone propionate, 2 spray, each nostril, Daily slotbxktvhs-dbrctozvy-oqdexmqx, 1 puff, inhalation, Daily methocarbamoL, 500 mg, oral, TID rosuvastatin, 40 mg, oral, Daily sertraline, 100 mg, oral, Daily sodium chloride 0.9%, 0.5-20 mL, intra-catheter, Q8H GLORY [Held by Provider] spironolactone, 25 mg, oral, Daily traZODone, 100 mg, oral, Nightly albuterol HFA, 2 puff, inhalation, Q4H PRN (RT) sodium chloride 0.9%, 30 mL, intravenous, PRN heparin, 2,000 Units, intravenous, Q6H PRN OR heparin, 3,000 Units, intravenous, Q6H PRN HYDROmorphone, 0.2 mg, intravenous, Q2H PRN ondansetron ODT, 4 mg, oral, Q6H PRN OR ondansetron, 4 mg, intravenous, Q6H PRN oxyCODONE, 5 mg, oral, Q4H PRN perflutren lipid (DEFINITY) 1.5 mL in sodium chloride 0.9% 10 mL syringe, 1-10 mL, intravenous, Once in imaging polyethylene glycol, 17 g, oral, Daily PRN prochlorperazine, 5 mg, intravenous, Q6H PRN sodium chloride 0.9%, 0.5-20 mL, intra-catheter, PRN heparin, 0-33 Units/kg/hr, Last Rate: 15 Units/kg/hr (11/16/24227) Vitals Most Recent Vitals: T 36.4 ??C (97.5 ??F), HR 72, BP 106/52, RR 16, SpO2 94 %. 24hr Min/Max: Temp Min: 36.4 ??C (97.5 ??F) Max: 36.9 ??C (98.4 ??F) Pulse Min: 71 Max: 90 BP Min: 101/57 Max: 118/79 Resp Min: 16 Max: 16 SpO2 Min: 92 % Max: 96 % Intake/Output Summary (Last 24 hours) at 11/16/2024915 Last data filed at 11/15/2024 2321 Gross per 24 hour Intake 210 ml Output -- Net 210 ml Net IO Since Admission: 230 mL [11/16/24915] Last Weight: 63.1 kg (139 lb 1.8 oz) (11/13/241844). Admit Weight: 61.2 kg (135 lb). Last BM: Physical Exam General: Not in distress, appears comfortable HEENT: Normocephalic, no conjunctival pallor, no scleral icterus Cardiac: Normal rate; regular rhythm; audible S1 and S2 metallic click on mitral area , rubs, or gallops; 2+ radial pulses; no LE edema; no JVD nor hepato- jugular reflux Pulm: clear to auscultation bilaterally; no wheezes, rales, or rhonchi. Pacemaker on the left side of chest GI/Abd: Soft, nontender, non-distended MSK: Normal bulk and tone, no joint effusions or major deformities, chronic pain on spine Skin: No rash or bruises Extremities: Warm and well perfused Neuro: AAO x 4, CN II-XII grossly intact, moves all extremities spontaneously Lines, Drains, Airways Peripheral IV 11/13/24 20 G Left;Posterior Hand (Active) Peripheral IV 11/14/24 22 G Anterior;Right Hand (Active) Labs/Diagnostic Review Na 140 (141) Cl 106 BUN 16 (18) K 4.2 (4) CO2 26 (26) Cr 1.38 (1.6) Mg 2.4 (2.3), G (108) AST - ( ) ALT - ( ) Alk Phos - ( ) Ca 9.2 (9.2) TP - Alb - Total Bili: - ( ) Direct Bili: - ( ) \ Hgb 8.6 (7.9) / WBC 4.47 (4.52) -------- Plt 172 (153) / MCV 85.7 (86.1)\ INR 1.49 (Labs above are the most recent result obtained in the last 24 hours, followed by the 2nd to last lab in the past 3 days, if applicable. For additional labs/trends, see Epic.) Imaging Review No results found. Assessment & Plan Chronic midline thoracic back pain # C/f thoracic discitis / osteomyelitis Chronic back pain since 08/2024. Has had multiple CT scans for workup. Most recent CT thoracic spineshowed c/f discitis osteophyte complex at T10-11, saw NSGY as o/p, told to come to ED for further workup. Endorsing night sweats, 20 lb weight loss, intermittent BUE tingling. No incontinence. No IVDU. Hx of kyphoplasty few years ago to d/t L compression fracture. Hx of OM in foot / leg many years ago iso trauma. - NSGY following - ESR/CRPhigh - MRI spine, EP consulted on 11/14, pacemaker interrogation showed non dependence and MRI was contacted, waiting for MRI to be scheduled - [facility] IR c/s for c/o biopsy - HOLD warfarin x 5 day before procedure, possible procedure on Sunday - Hold warfarin (11/11-) -> heparin gtt until procedures are done - Repeated TTE to rule out valvular vegetation/ICD infection, ordered NEVAEH on 11/15 as TTE was unremarkable and patinet has mechanical valve and pacemaker - NEVAEH programed for 11/17 - Pain management with GLORY: tylenol 1g q6, robaxin 50mg q8; PRN: oxy 5mg q4 and dilaudid 0.2 IV q2 to breakthrough pain Bacteremia due to Enterococcus 1/2 BCx + E. faecalis on 11/13. Unclear source. 20lb weight loss over the last few months. - Daily BCx - repeat daily blood cultures until negative for 48h - Start Amp (11/14-) and Ceftriaxone (11/14 -) - TTE on 11/14 lVEF 67% no thrombus, mechanical mitral valve w/o dysfunction - Waiting for NEVAEH - probably on 11/17 - [facility] Bx with IR on 11/17 - ID consult appreciate recs, repeat daily blood cultures until negative for 48h Pacemaker #AVR ([facility], 2019) #pAF on Coumadin #LVEF 67% (11/14/24) Hx severe s/p AVR placement in and replacement of mechanical AV in 2021. Previously on ECMO reuqiring Mitral valve repair. - Warfarin -> hep gtt in preparation for IR bx on Sunday - GDMT: on hold coreg (hypotension) and spironolactone (worsening of kidney function and hypotension) Code status : Full Code Diet : Adult Diet Regular NPO Diet PT/OT recs : Lia Mott MD PGY1 Anesthesia Cosigned by Kandis Spencer MD at 11/16/2024 12:53 PM CDT Associated attestation - Kandis Spencer MD - 11/16/2024 12:53 PM CDT I have seen and examined the patient on 11/16/24. I agree with the findings and plan of care as documented in the resident's/fellow's note. Cont abx. MRI and NEVAEH this week. Today, I am treating the patient for E faecalis bacteremia which is in severe exacerbation, progression, or experiencing treatment side effects as evidenced by concern for endocarditis, PPM lead infection, vertebral osteomyelitis, as described in the note. The patient is being intensively monitored for drug toxicity from ceftriaxone and ampicillin by checking CBC, BMP. * Lia Hernandez MD - 11/15/2024 9:53 AM CDT Daily Progress Note Firm Service Name: Kendal Cisneros : 1955 Today's Date: November 15, 2024 Age: 69 y.o. female Admit Date: 11/13/2024 Bed: [id number] LOS: 2 days Subjective Interval History - Patient reports improvement of back pain 10/16, had no difficult to sleep - ID and IP consulted, appreciate recs, contact cardiology to order NEVAEH today - Pacemaker interrogated patient not dependent, waiting for MRI - Blood cultures positive after 16h for E. Faecalis, strated ceftriaxone and ampicillin Plan: - Waiting for NEVAEH - Waiting for blood cultures - Pain management - Discussed next steps with family. Objective Scheduled Meds PRN Meds Infusions acetaminophen, 1,000 mg, oral, Q6H GLORY ampicillin, 2,000 mg, intravenous, Q6H GLORY [Held by Provider] carvediloL, 12.5 mg, oral, BID with meals (bkfst, dinner) cefTRIAXone, 2,000 mg, intravenous, Q12H GLORY famotidine, 40 mg, oral, Daily fluticasone propionate, 2 spray, each nostril, Daily msuhmbyrnor-zjdhvcyib-pawbhunh, 1 puff, inhalation, Daily methocarbamoL, 500 mg, oral, TID rosuvastatin, 40 mg, oral, Daily sertraline, 100 mg, oral, Daily sodium chloride 0.9%, 0.5-20 mL, intra-catheter, Q8H GLORY [Held by Provider] spironolactone, 25 mg, oral, Daily traZODone, 100 mg, oral, Nightly albuterol HFA, 2 puff, inhalation, Q4H PRN (RT) sodium chloride 0.9%, 30 mL, intravenous, PRN heparin, 2,000 Units, intravenous, Q6H PRN OR heparin, 3,000 Units, intravenous, Q6H PRN HYDROmorphone, 0.2 mg, intravenous, Q2H PRN ondansetron ODT, 4 mg, oral, Q6H PRN OR ondansetron, 4 mg, intravenous, Q6H PRN oxyCODONE, 5 mg, oral, Q4H PRN perflutren lipid (DEFINITY) 1.5 mL in sodium chloride 0.9% 10 mL syringe, 1-10 mL, intravenous, Once in imaging polyethylene glycol, 17 g, oral, Daily PRN sodium chloride 0.9%, 0.5-20 mL, intra-catheter, PRN heparin, 0-33 Units/kg/hr, Last Rate: 15 Units/kg/hr (11/15/24 003) Vitals Most Recent Vitals: T 36.7 ??C (98.1 ??F), HR 78, BP 106/54, RR 16, SpO2 96 %. 24hr Min/Max: Temp Min: 36.5 ??C (97.7 ??F) Max: 36.7 ??C (98.1 ??F) Pulse Min: 72 Max: 78 BP Min: 90/52 Max: 106/54 Resp Min: 16 Max: 18 SpO2 Min: 95 % Max: 96 % Intake/Output Summary (Last 24 hours) at 11/15/2024952 Last data filed at 11/14/20242000 Gross per 24 hour Intake 20 ml Output -- Net 20 ml Net IO Since Admission: 20 mL [11/15/24952] Last Weight: 63.1 kg (139 lb 1.8 oz) (11/13/24 184). Admit Weight: 61.2 kg (135 lb). Last BM: Physical Exam General: Not in distress, appears comfortable HEENT: Normocephalic, no conjunctival pallor, no scleral icterus Cardiac: Normal rate; regular rhythm; audible S1 and S2 metallic click on mitral area , rubs, or gallops; 2+ radial pulses; no LE edema; no JVD nor hepato- jugular reflux Pulm: clear to auscultation bilaterally; no wheezes, rales, or rhonchi. Pacemaker on the left side of chest GI/Abd: Soft, nontender, non-distended MSK: Normal bulk and tone, no joint effusions or major deformities, chronic pain on spine Skin: No rash or bruises Extremities: Warm and well perfused Neuro: AAO x 4, CN II-XII grossly intact, moves all extremities spontaneously Lines, Drains, Airways Peripheral IV 11/13/24 20 G Left;Posterior Hand (Active) Peripheral IV 11/14/24 22 G Anterior;Right Hand (Active) Labs/Diagnostic Review Na 141 (139) Cl 105 BUN 18 (14) K 4.0 (3.9) CO2 26 (29) Cr 1.60 (1.4) Mg 2.3 (2.3), G (98) AST 18 ( ) ALT 10 ( ) Alk Phos 104 ( ) Ca 9.2 (9.6) TP 8.3 Alb 4.0 Total Bili: 0.2 ( ) Direct Bili: - ( ) \ Hgb 7.9 (8.1) / WBC 4.52 (5.87) -------- Plt 153 (192) / MCV 86.1 (85.7)\ INR 2.30 (Labs above are the most recent result obtained in the last 24 hours, followed by the 2nd to last lab in the past 3 days, if applicable. For additional labs/trends, see Epic.) Imaging Review XR Chest PA Lateral 2 Views Result Date: 11/13/2024 Comparison 11/13/2023. Unchanged median sternotomy wires, mitral valve repair, aortic valve, and left pectoral pacemaker device with lead tips terminating over right atrium, coronary vein, and right ventricular apex. Right upper quadrant surgical clips and upper lumbar spine vertebral augmentation also noted. There is persistent moderate elevation of the left hemidiaphragm with associated subsegmental atelectasis. Infiltration of the right hemidiaphragm is also present. No pneumothorax, pleuraleffusion, or focal pneumonic consolidation. Cardiomediastinal contours are unchanged. Compression deformity of the lower thoracic spine is better evaluated on recent outside CT examination, but new fr om CT 10/17/2022. Electronically signed by: Gilmer Loyd M.D. Neuro CT Outside Consult Result Date: 11/13/2024 New osteolysis, cortical irregularities, subcortical sclerosis and distention of the intervertebraldisc at T10-T11 with mild prominent prevertebral soft tissues, concerning of discitis osteophyte complex. MRI evaluation is recommended as clinically indicated. The findings, conclusions and recommendations within this report do not replace the initial findings, conclusions and recommendations made at the facility where the study was performed based upon the imaging and clinical condition at thattime. Comparison with the prior report and clinical history is necessary. The provided images may or may not represent the [place] source data set and thus may contain changes that may lower the accuracy of this second-opinion interpretation. Electronically signed by: Valdemar Mcdowell MD Neuro CT Outside Reference Result Date: 11/13/2024 These images are for Reference purposes only and have not been reviewed by [facility]. There will be no report generated by a [facility]iologist. Assessment & Plan Chronic midline thoracic back pain # C/f thoracic discitis / osteomyelitis Chronic back pain since 08/2024. Has had multiple CT scans for workup. Most recent CT thoracic spineshowed c/f discitis osteophyte complex at T10-11, saw NSGY as o/p, told to come to ED for further workup. Endorsing night sweats, 20 lb weight loss, intermittent BUE tingling. No incontinence. No IVDU. Hx of kyphoplasty few years ago to d/t L compression fracture. Hx of OM in foot / leg many years ago iso trauma. - NSGY following - ESR/CRPhigh - MRI spine, EP consulted on 11/14, pacemaker interrogation showed non dependence and MRI was contacted, waiting for MRI - [facility] IR c/s for c/o biopsy - HOLD warfarin x 5 day before procedure, possible procedure on Sunday - Hold warfarin (11/11-) -> heparin gtt - Repeated TTE to rule out valvular vegetation/ICD infection, ordered NEVAEH on 11/15 as TTE was unremarkable and patinet has mechanical valve lpacemaker - Pain management with GLORY: tylenol 1g q6, robaxin 50mg q8; PRN: oxy 5mg q4 and dilaudid 0.2 IV q2 to breakthrough pain Bacteremia due to Enterococcus 1/2 BCx + Efaecalis (16.0hr) on 11/13. Unclear source. 20lb weight loss over the last few months. - Daily BCx - Start Amp (11/14-) and Ceftriaxone (11/14 -) - TTE on 11/14 lVEF 67% no thrombus, mechanical mitral valve w/o dysfunction - Waiting for NEVAEH - ID consult appreciate recs Pacemaker #AVR ([facility], 2019) #pAF on Coumadin #LVEF 67% (11/14/24) Hx severe s/p AVR placement in and replacement of mechanical AV in 2021. Previously on ECMO reuqiring Mitral valve repair. - Warfarin -> hep gtt in preparation for IR bx on Sunday - GDMT: on hold coreg (hypotension) and spironolactone (worsening of kidney function and hypotension) Code status : Full Code Diet : Adult Diet Regular PT/OT recs : Lia Mott MD PGY1 Anesthesia Cosigned by Kandis Spencer MD at 11/15/2024 6:16 PM CDT Associated attestation - Kandis Spencer MD - 11/15/2024 6:16 PM CDT I have seen and examined the patient on 11/15/24. I agree with the findings and plan of care as documented in the resident's/fellow's note. NAEON. Still with night sweats, but no fevers. Continuing ampicillin+ceftriaxone. ID following. Awaiting MRI spine w/EP (hx PPM). On heparin bridge prior to bone biopsy with [facility] IR (trend INR daily).TTE negative for vegetations; will need a NEVAEH to evaluate for endocarditis in the setting of mechanical valve + pacemaker. Follow repeat blood cultures. She previously expressed significant reluctance to undergo repeat valve surgery. Today, she acknowledges that it may be necessary to preserve her life, but she is still unhappy at the prospect. In the meantime, she is agreeable to undergoing NEVAEH and MRI spine for further diagnostic workup. Today, I am treating the patient for E faecalis bacteremia which is in severe exacerbation, progression, or experiencing treatment side effects as evidenced by concern for endocarditis, possible vertebral osteomyelitis, need for IV antibiotics and consideration of repeat valve surgery and/or pacemaker lead extraction, as described in the note. Reviewed records from the following unique sources (external institutions or providers from different services): ID. The patient is being intensively monitored for drug toxicity from ampicillin and ceftriaxone by checking BMP, CBC. * Lia Hernandez MD - 11/14/2024 9:54 AM CDT Daily Progress Note Firm Service Name: Kendal Cisneros : 1955 Today's Date: November 14, 2024 Age: 69 y.o. female Admit Date: 11/13/2024 Bed: [id number] LOS: 1 days Subjective Interval History - Patient reports back pain 01/15, had no difficult to sleep - NEVAEH this morning - Pacemaker will be interrogated by IP today and evaluated to possible MRI - Blood cultures positive after 16h for E. Faecalis, strated ceftriaxone and ampicillin Plan: - IP following to define parameters for MRI - Waiting for blood cultures - pain management with scheduled tylenol 1g q6 , robaxin 500mg q8, PRN: oxy 5mg q4 and dilaudid 0.2mg q2 Objective Scheduled Meds PRN Meds Infusions acetaminophen, 1,000 mg, oral, Q6H GLORY ampicillin, 2,000 mg, intravenous, Q6H GLORY [Held by Provider] carvediloL, 12.5 mg, oral, BID with meals (bkfst, dinner) cefTRIAXone, 2,000 mg, intravenous, Q24H GLORY famotidine, 40 mg, oral, Daily fluticasone propionate, 2 spray, each nostril, Daily eppdykajxpp-fqeqleatu-spcjraos, 1 puff, inhalation, Daily methocarbamoL, 500 mg, oral, TID rosuvastatin, 40 mg, oral, Daily sertraline, 100 mg, oral, Daily sodium chloride 0.9%, 0.5-20 mL, intra-catheter, Q8H GLORY [Held by Provider] spironolactone, 25 mg, oral, Daily traZODone, 100 mg, oral, Nightly albuterol HFA, 2 puff, inhalation, Q4H PRN (RT) sodium chloride 0.9%, 30 mL, intravenous, PRN heparin, 2,000 Units, intravenous, Q6H PRN OR heparin, 3,000 Units, intravenous, Q6H PRN HYDROmorphone, 0.2 mg, intravenous, Q2H PRN ondansetron ODT, 4 mg, oral, Q6H PRN OR ondansetron, 4 mg, intravenous, Q6H PRN oxyCODONE, 5 mg, oral, Q4H PRN perflutren lipid (DEFINITY) 1.5 mL in sodium chloride 0.9% 10 mL syringe, 1-10 mL, intravenous, Once in imaging polyethylene glycol, 17 g, oral, Daily PRN sodium chloride 0.9%, 0.5-20 mL, intra-catheter, PRN heparin, 0-33 Units/kg/hr, Last Rate: 15 Units/kg/hr (11/14/24 0538) Vitals Most Recent Vitals: T 36.5 ??C (97.7 ??F), HR 102, BP 112/60, RR 16, SpO2 97 %. 24hr Min/Max: Temp Min: 36.5 ??C (97.7 ??F) Max: 37.2 ??C (99 ??F) Pulse Min: 74 Max: 102 BP Min: 102/62 Max: 116/74 Resp Min: 16 Max: 18 SpO2 Min: 96 % Max: 97 % Intake/Output Summary (Last 24 hours) at 11/14/2024 1322 Last data filed at 11/14/2024 1318 Gross per 24 hour Intake 10 ml Output -- Net 10 ml Net IO Since Admission: 10 mL [11/14/24 1322] Last Weight: 63.1 kg (139 lb 1.8 oz) (11/13/24 184). Admit Weight: 61.2 kg (135 lb). Last BM: Physical Exam General: Not in distress, appears comfortable HEENT: Normocephalic, no conjunctival pallor, no scleral icterus Cardiac: Normal rate; regular rhythm; audible S1 and S2 metallic click on mitral area , rubs, or gallops; 2+ radial pulses; no LE edema; no JVD nor hepato- jugular reflux Pulm: clear to auscultation bilaterally; no wheezes, rales, or rhonchi. Pacemaker on the left side of chest GI/Abd: Soft, nontender, non-distended MSK: Normal bulk and tone, no joint effusions or major deformities, chronic pain on spine Skin: No rash or bruises Extremities: Warm and well perfused Neuro: AAO x 4, CN II-XII grossly intact, moves all extremities spontaneously Lines, Drains, Airways Peripheral IV 11/13/24 20 G Left;Posterior Hand (Active) Peripheral IV 11/14/24 22 G Anterior;Right Hand (Active) Labs/Diagnostic Review Na 139 (139) Cl 105 BUN 14 (13) K 3.9 (3.9) CO2 29 (27) Cr 1.40 (1.42) Mg 2.3 ( ), G (93) AST 18 ( ) ALT 10 ( ) Alk Phos 104 ( ) Ca 9.6 (9.5) TP 8.3 Alb 4.0 Total Bili: 0.2 ( ) Direct Bili: - ( ) \ Hgb 8.1 (8.5) / WBC 5.87 (6.04) -------- Plt 192 (184) / MCV 85.7 (84.2)\ INR 2.30 (Labs above are the most recent result obtained in the last 24 hours, followed by the 2nd to last lab in the past 3 days, if applicable. For additional labs/trends, see Epic.) Imaging Review XR Chest PA Lateral 2 Views Result Date: 11/13/2024 Comparison 11/13/2023. Unchanged median sternotomy wires, mitral valve repair, aortic valve, and left pectoral pacemaker device with lead tips terminating over right atrium, coronary vein, and right ventricular apex. Right upper quadrant surgical clips and upper lumbar spine vertebral augmentation also noted. There is persistent moderate elevation of the left hemidiaphragm with associated subsegmental atelectasis. Infiltration of the right hemidiaphragm is also present. No pneumothorax, pleuraleffusion, or focal pneumonic consolidation. Cardiomediastinal contours are unchanged. Compression deformity of the lower thoracic spine is better evaluated on recent outside CT examination, but new fr om CT 10/17/2022. Electronically signed by: Gilmer Loyd M.D. Neuro CT Outside Consult Result Date: 11/13/2024 New osteolysis, cortical irregularities, subcortical sclerosis and distention of the intervertebraldisc at T10-T11 with mild prominent prevertebral soft tissues, concerning of discitis osteophyte complex. MRI evaluation is recommended as clinically indicated. The findings, conclusions and recommendations within this report do not replace the initial findings, conclusions and recommendations made at the facility where the study was performed based upon the imaging and clinical condition at thattime. Comparison with the prior report and clinical history is necessary. The provided images may or may not represent the [place] source data set and thus may contain changes that may lower the accuracy of this second-opinion interpretation. Electronically signed by: Valdemar Mcdowell MD Neuro CT Outside Reference Result Date: 11/13/2024 These images are for Reference purposes only and have not been reviewed by [facility]. There will be no report generated by a [facility]iologist. Assessment & Plan Chronic midline thoracic back pain # C/f thoracic discitis / osteomyelitis Chronic back pain since 08/2024. Has had multiple CT scans for workup. Most recent CT thoracic spineshowed c/f discitis osteophyte complex at T10-11, saw NSGY as o/p, told to come to ED for further workup. Endorsing night sweats, 20 lb weight loss, intermittent BUE tingling. No incontinence. No IVDU. Hx of kyphoplasty few years ago to d/t L compression fracture. Hx of OM in foot / leg many years ago iso trauma. - NSGY following - ESR/CRPhigh - MRI spine, however cardiac device is not compatible. EP consult. For pacemaker interrogation - [facility] IR c/s for c/o biopsy - HOLD warfarin x 5 day before procedure - Hold warfarin (11/11-) -> heparin gtt - Repeat TTE to rule out valvular vegetation/ICD infection - Pain management with GLORY: tylenol 1g q6, robaxin 50mg q8; PRN: oxy 5mg q4 and dilaudid 0.2 IV q2 to breakthrough pain Bacteremia due to Enterococcus 1/2 BCx + Efaecalis (16.0hr) on 11/13. Unclear source. 20lb weight loss over the last few months. - Daily BCx - Start Amp (11/14-) and Ceftriaxone (11/14 -) - TTE on 11/14 lVEF 67% no thrombus, mechanical mitral valve w/o dysfuction - ID consult Pacemaker #AVR ([facility], 2019) #pAF on Coumadin #LVEF 67% (11/14/24) Hx severe s/p AVR placement in and replacement of mechanical AV in 2021. Previously on ECMO reuqiring Mitral valve repair. - Warfarin -> hep gtt in preparation for IR bx - GDMT: on hold coreg (hypotension) and spironolactone (worsening of kidney function and hypotension) Code status : Full Code Diet : Adult Diet Regular PT/OT recs : Lia Mott MD PGY1 Anesthesia Cosigned by Kandis Spencer MD at 11/14/2024 6:00 PM CDT Associated attestation - Kandis Spencer MD - 11/14/2024 6:00 PM CDT I have seen and examined the patient on 11/14/24. I agree with the findings and plan of care as documented in the resident's/fellow's note. Presented to NSGY with back pain, found to have imaging findings concerning for vertebral OM. Bacteremic with E faecalis. Significant cardiac history including mitral valve repair, bioAVR c/b graft failure -> mechanical AVR on warfarin (last dose reportedly 11/11), PPM. Heparin gtt bridge (can do Lovenox too, but already close to therapeutic on heparin). Proceed with ampicillin+ceftriaxone for presumed endocarditis + osteomyelitis. No vegetations on TTE, may need NEVAEH. Follow cultures to assessfor polymicrobial infection. Awaiting MRI (needs EP clearance since she has a pacemaker). May need a bone biopsy - anticoagulation bridge started. Appreciate input from [facility] EP. Appreciate [facility]-IR assistance with bone biopsy when safe from anticoagulation standpoint. Today, I am treating the patient for E faecalis bacteremia which is in severe exacerbation, progression, or experiencing treatment side effects as evidenced by concern for cardiac and osseous involvement, as described in the note. Reviewed records from the following unique sources (external institutions or providers from different services): nsgy. The patient is being intensively monitored for drug toxicity from ampicillin and ceftriaxone by checking CBC, BMP. documented in this encounter H&P Notes * Calvin Benjamin MD - 11/19/2024 12:14 PM CDT I have reviewed the H&P, examined the patient, and endorse the findings as written. Plan of Care : Based on the above findings, I consider Kendal Cisneros to be an acceptable risk for :NEVAEH Cosigned by Palmer Deluca MD at 11/19/2024 12:40 PM CDT Source Note - Sher Adams MD - 11/13/2024 7:05 PM CDT MEDICINE ADMISSION HISTORY & PHYSICAL Patient: Kendal Cisneros, 1955, 11/13/24 Subjective SUBJECTIVE HISTORY OF PRESENT ILLNESS Kendal Cisneros is a 69 y.o. woman with PMH of CAD s/p 1V CABG (SVG to RCA 2021), AVR ([facility], 2019), pacemaker ([employer], 2016), LBBB, pHTN, pAF on warfarin (goal 2-3), mitral regurgitation, CHF, CKD3, HLD, and TUD who presented to ED per request of neurosurgery w/ c/f thoracic diskitis/osteomyelitis. Patient reports having chronic intermittent back pain before acute worsening in pain around mid-back starting August 2024. States the pain initially started on left side of back before migrating across to both sides. Pain characterized as sharp burning pain, exacerbated by movement, does not radiate anteriorly to chest, and does not radiate to groin, legs, or upper extremities. Notes some numbness/tingling in isolated bilateral hands but states it does not radiate up/down arms and denies numbness/tingling in legs. Further notes generalized weakness, progressive SOB, night sweats and 20 lb weight loss over past 2-3 months. Denies saddle anesthesia, urinary incontinence, inability to void, or other urinary changes. No changes in BM. Further denies chest pain, abdominal pain, n/v/d. Was initially evaluated at OSH and PCP, who suspected kidney stone and was treated for possible UTI without resolution in pain. CT AP performed at the time was unremarkable. Further seen by grey roll man (09/15/24 Dr. Bruner) who did not suspect any renal etiology for the pain. Pain continued to worsen over last two months. Patient was seen by neurosurgery Dr. Flower today. Review of OSH thoracic/lumbar CT (11/10/24 from [place]) showed new osteolysis, cortical irregularities, subcortical sclerosis and distention of the intervertebral disc at T10-T11 with mild prominent prevertebral soft tissues, concerning of discitis osteophyte complex. Patient was recommended topresent to [facility] ER for MRI. 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 Also had L1 compression fracture a few years ago treated with kyphoplasty. Patient has pacemaker device, complicating MRI eval. Patient has hx of multiple cardiac surgeries, denies other back surgeries. Denies hx of recent traumas. Former smoker. Denies alcohol, IVDU, or other substance use. In ED, patient afebrile, HDS, satting well on RA. Labs notable for Cr 1.4 (near baseline), WBC 6, Hgb 8.8, plt 204, INR 2.3. Lytes stable. Past Medical History: Diagnosis Date Age-related osteoporosis without current pathological fracture 09/01/2021 Anemia Arthritis Broken heart syndrome Cancer (HCC) skin cancer Depression Depression Fatigue GERD (gastroesophageal reflux disease) 12/06/2011 Heart disease Hyperlipidemia 10/26/2011 M[facility]enna wants her on Lipitor 40mg qhs Last Assessment & Plan: Status: Stable Interim History: No myalgias. Patient on Lipitor 40 mg qd. Recheck in 3 months labs. Hypertension LBBB (left bundle branch block) 11/18/2012 Raz Villegas at [facility] paper twister tender. Nausea and vomiting 07/25/2022 Osteoarthritis Osteopenia 01/29/2015 DEXA 01/2015 Osteoporosis Paroxysmal atrial fibrillation (HCC) 05/27/2019 Last Assessment & Plan: On Eliquis Pulmonary HTN (HCC) 11/18/2012 [facility] documentation seen on ECHO. Severe mitral regurgitation 11/18/2012 Emilie at [facility] paper twister tender. Message from [employer]soft sent at 11/15/2018 4:29 PM [facility] ----- De Dr. Farnsworth. Dieter CHOW regarding my hospital visit, I have an appointment with Dr. Butler???s at [facility] on This Sunday for my TAVR work up. Last Assessment & Plan: Formatting of this [place] be different [place] the [place] Shortness of breath Systolic heart failure (HCC) 11/18/2012 Mckenna stage III Coreg Lasix and Lisinopril started in hospital in November. Dr. Pahn paper twister tender. Last Assessment & Plan: Status: Stable Interim History: No cp's, sob, PTE or calf pains. No weight gains. Continue with Cardiology. Past Surgical History: Procedure Laterality Date ANTERIOR CRUCIATE LIGAMENT REPAIR Right 2003 AORTIC VALVE REPLACEMENT 2019 21mm Inspiris AORTIC VALVULOPLASTY 2019 CARDIAC VALVE REPLACEMENT 2019 CHOLECYSTECTOMY 2018 HYSTERECTOMY 1986 INSERT / REPLACE / REMOVE PACEMAKER 2016 original 2012 KYPHOPLASTY 2021 SKIN CANCER EXCISION Allergies Allergen Reactions Atropine Hypotension SEVERE hypotension Sulfites Nausea And Vomiting Hydrocodone-Acetaminophen Itching Sulfa (Sulfonamide Antibiotics) Nausea only Social History Tobacco Use Smoking status: Former Current packs/day: 0.00 Types: Cigarettes Start date: 1973 Quit date: 11/22/2021 Years since quittin.9 Smokeless tobacco: Never Tobacco comments: now down to 5 cigs/day Substance and Sexual Activity Drug use: Yes Types: Medical marijuana Sexual activity: Not Currently Partners: Male control/protection: Post-menopausal Alcohol Use: Not At Risk (09/15/2024) AUDIT-C Frequency of Alcohol Consumption: Never Average Number of Drinks: Not on file Frequency of Binge Drinking: Not on file Family History Problem Relation Age of Onset Heart disease Mother Heart failure Mother Hypertension Mother Alzheimer's disease Maternal Grandmother 65 No Known Problems Paternal Grandmother Heart disease Father Heart failure Father Hypertension Father Other (heart surgery) Father Heart attack Maternal Grandfather No Known Problems Paternal Grandfather Ovarian cancer Neg Hx Breast cancer Neg Hx Thyroid cancer Neg Hx Home Medications: HOME MEDICATIONS : albuterol HFA (Proventil HFA) 90 mcg/actuation inhaler Breztri Aerosphere 160-9-4.8 mcg/actuation inhaler carvediloL (COREG) 12.5 mg tablet cholecalciferol (VITAMIN D-3) 2000 unit tablet cyclobenzaprine (FLEXERIL) 5 mg tablet famotidine (PEPCID) 40 mg tablet ferrous sulfate 325 mg (65 mg of elemental iron) tablet fluticasone propionate (FLONASE) 50 mcg/actuation nasal spray furosemide (LASIX) 20 mg tablet hydrocortisone (ANUSOL-HC) 1 % cream with perineal applicator ondansetron ODT (ZOFRAN-ODT) 4 mg disintegrating tablet rosuvastatin (CRESTOR) 40 mg tablet sertraline (ZOLOFT) 100 mg tablet spironolactone (ALDACTONE) 25 mg tablet traZODone (DESYREL) 50 mg tablet warfarin (COUMADIN) 3 mg tablet aspirin 81 mg enteric coated tablet diphenhydrAMINE 25 mg capsule tamsulosin (FLOMAX) 0.4 mg extended release capsule Scheduled Medications: Scheduled Medications Medication Dose Route Frequency carvediloL (COREG) tablet 12.5 mg 12.5 mg oral BID with meals (bkfst, dinner) famotidine (PEPCID) tablet 40 mg 40 mg oral Daily fluticasone propionate (FLONASE) 50 mcg/actuation nasal spray 2 spray 2 spray each nostril Daily hbbywiloixv-rscpjggnb-pjqkajzk (TRELEGY ELLIPTA) 200-62.5-25 mcg inhaler 1 puff 1 puff inhalation Daily (RT) rosuvastatin (CRESTOR) tablet 40 mg 40 mg oral Daily sertraline (ZOLOFT) tablet 100 mg 100 mg oral Daily sodium chloride 0.9% flush 0.5-20 mL 0.5-20 mL intra-catheter Q8H GLORY spironolactone (ALDACTONE) tablet 25 mg 25 mg oral Daily traZODone (DESYREL) tablet 100 mg 100 mg oral Nightly Continuous Medications: Current Facility-Administered Medications Medication Dose Route Frequency Last Admin PRN Medications: acetaminophen, 1,000 mg albuterol HFA, 2 puff sodium chloride 0.9%, 30 mL ondansetron ODT, 4 mg OR ondansetron, 4 mg polyethylene glycol, 17 g sodium chloride 0.9%, 0.5-20 mL Review of Systems: Review of Systems per HPI and otherwise all other systems are negative. Objective OBJECTIVE VITALS / I&O Most Recent: Vitals: 11/13/24 1845 BP: 106/46 Pulse: 74 Resp: 16 Temp: 36.6 ??C (97.9 ??F) SpO2: 97% 24hr Min/Max: Temp Min: 36.1 ??C (96.9 ??F) Max: 37.3 ??C (99.2 ??F) Pulse Min: 73 Max: 78 BP Min: 106/46 Max: 117/69 Resp Min: 16 Max: 18 SpO2 Min: 94 % Max: 97 % O2 Therapy for the past 12 hrs: O2 Therapy 11/13/24 1845 None (Room air) 11/13/24 1244 None (Room air) 63.1 kg (139 lb 1.8 oz) Body mass index is 25.44 kg/m??. No intake or output data in the 24 hours ending 11/13/24 190 No intake/output data recorded. No intake/output data recorded. PHYSICAL EXAM Constitutional: Well-developed, well-nourished, in no acute distress HEENT: EOMI, no conjunctival icterus, moist mucous membranes, no oral lesions, normal voice, hearing grossly intact Cardiovascular: Regular rate and rhythm, normal S1/S2, no murmurs/rubs/gallops, no JVD Pulmonary: Clear to auscultation bilaterally, normal work of breathing Abdominal: Soft, non-tender, non-distended, no masses, normal bowel sounds, no guarding or rebound Extremities: Warm, well-perfused, equal pulses, no cyanosis or clubbing, no peripheral edema, briskcapillary refill Skin: Warm and dry, no rashes or lesions noted GI/: no flank pain Neurological: A&Ox4. Spinal tenderness along thoracic spine without radiation to UE/LE. No saddle anesthesia. Numbness/tingling in bilateral hands without radiation. No numbness/tingling in LE. Strength 5/5 in bilateral UE/LE. Psychiatric: Appropriate mood and affect LABS Recent Labs Lab Units 11/13/24 1726 11/13/24 1419 11/10/24 1446 11/10/24 1338 HEMOGLOBIN g/dL 8.5* 8.8* 9.1* 9.0* WBC K/cumm 6.04 6.88 5.85 5.74 PLATELETS K/cumm 184 204 225 227 Recent Labs Lab Units 11/13/24 1419 SODIUM mmol/L 139 POTASSIUM PLASMA mmol/L 3.9 CHLORIDE mmol/L 102 CO2 mmol/L 27 ANIONGAP mmol/L 10 BUN SERUM mg/dL 13 CREATININE mg/dL 1.42* CALCIUM mg/dL 9.5 Recent Labs Lab Units 11/13/24 1419 ALBUMIN g/dL 4.0 ALK PHOS Units/L 104 AST Units/L 18 ALT Units/L 10 BILIRUBIN TOTAL mg/dL 0.2 Recent Labs Lab Units 11/13/24 1726 11/10/24 1446 11/10/24 1342 APTT sec 31 -- -- INR 2.30* 2.22* 2.25* Recent Labs Lab Units 11/10/24 1338 TSH mcIUnit/mL 3.39 Cultures: Lab Results Component Value Date MICROBIOLOGY (.) 08/21/2024 Final Report: Greater than or equal to 100,000 colonies/mL of Klebsiella pneumoniae MICROBIOLOGY Final Report: No growth of pathogens. 03/26/2023 MICROBIOLOGY Final Report: No growth 12/12/2021 MICROBIOLOGY Final Report: No growth 12/07/2021 MICROBIOLOGY Final Report: No growth 12/07/2021 IMAGING XR Chest PA Lateral 2 Views Result Date: 11/13/2024 Comparison 11/13/2023. Unchanged median sternotomy wires, mitral valve repair, aortic valve, and left pectoral pacemaker device with lead tips terminating over right atrium, coronary vein, and right ventricular apex. Right upper quadrant surgical clips and upper lumbar spine vertebral augmentation also noted. There is persistent moderate elevation of the left hemidiaphragm with associated subsegmental atelectasis. Infiltration of the right hemidiaphragm is also present. No pneumothorax, pleuraleffusion, or focal pneumonic consolidation. Cardiomediastinal contours are unchanged. Compression deformity of the lower thoracic spine is better evaluated on recent outside CT examination, but new fr om CT 10/17/2022. Electronically signed by: Gilmer Loyd M.D. Neuro CT Outside Consult Result Date: 11/13/2024 New osteolysis, cortical irregularities, subcortical sclerosis and distention of the intervertebraldisc at T10-T11 with mild prominent prevertebral soft tissues, concerning of discitis osteophyte complex. MRI evaluation is recommended as clinically indicated. The findings, conclusions and recommendations within this report do not replace the initial findings, conclusions and recommendations made at the facility where the study was performed based upon the imaging and clinical condition at thattime. Comparison with the prior report and clinical history is necessary. The provided images may or may not represent the [place] source data set and thus may contain changes that may lower the accuracy of this second-opinion interpretation. Electronically signed by: Valdemar Mcdowell MD Neuro CT Outside Reference Result Date: 11/13/2024 These images are for Reference purposes only and have not been reviewed by [facility]. There will be no report generated by a [facility]iologist. OTHER STUDIES Assessment/Plan ASSESSMENT & PLAN Kendal Cisneros is a 69 y.o. woman with PMH of CAD s/p 1V CABG (SVG to RCA 2021), AVR (inspiris resilia, 2019), pacemaker ([employer] BiV, 2016), LBBB, pHTN, pAF on warfarin (goal 2-3), mitral regurgitation, CHF, CKD3, HLD, and TUD who presented to ED per request of neurosurgery w/ c/f thoracic diskitis/osteomyelitis. #Thoracic back pain #C/f Thoracic discitis/osteomyelitis Patient presents with acute worsening in thoracic back around August 2024. 11/10 CTAP w/ new osteolysis, cortical irregularities, subcortical sclerosis and distention of the intervertebral disc at T10-T11 with mild prominent prevertebral soft tissues, concerning of discitis osteophyte complex. Seen by outpatient neurosurgery (Dr. Flower) who recommended admission for total spine MRI. Patientwith spinal tenderness around thoracic region on exam. Afebrile, HDS. WBC 6. - NSGY consulted, appreciate recs - Consider ID consult or Oncology consult pending labs and biopsy/aspiration results - F/u BCx, ESR, CRP - MRI Total Spine W WO - PPM not MRI compatible per OP paper twister tender - MRI safety team reviewing - 2v CXR completed - EP consult placed (call in AM) - Hold warfarin, start bridge heparin gtt - [facility] IR consulted for biopsy - Given therapeutic INR 2.2 from warfarin, IR states that there needs to be a 5 day hold for biopsy. Need to repeat INR prior to procedure. - Repeat TTE for source eval #Pacemaker ([employer] BiV, 2016) #AVR (inspiris resilia, 2019) #Paroxysmal AF Hx severe aortic stenosis. Bioprosthetic AVR placed in 2018 subsequently stenosed, necessitating replacement with mechanical aortic valve in 2021. Previously on ECMO in ICU at [facility]. Further required mitral valve repair. - Warfarin held as above, started heprin bridge #CAD s/p 1V CABG #HLD - Home crestor 40 daily #HTN - Home coreg, spironolactone #CHF 04/02/24 TTE: EF 65-70%, RVSP 28, moderate TR, diastolic dysfunction, normal LV systolic function. Euvolemic on exam. - Repeat TTE as above #Mood disorder - Home sertraline 100 daily, trazodone 50 nightly #GERD - Home famotidine #COPD Home regimen: albuterol, breztri, flonase - Flonase, trelegy ellipta - PRN albuterol DVT prophylaxis: heparin Diet: Adult Diet Regular Code Status: Full Code Dispo: pending Sher Adams MD Ophthalmology Preliminary PGY1 Internal medicine teams are signed in from 7AM-4:30PM on weekdays or 7AM-8PM electronic tech days. On weekends, the primary team may not be available. Before attempting to contact the provider for this patient, please check who is signed into the chart. After 4:30PM, the cross cover resident OR the night float resident should be contacted for concerns about this patient. Cosigned by Kandis Spencer MD at 11/14/2024 6:03 PM CDT * Sher Adams MD - 11/13/2024 7:05 PM CDT MEDICINE ADMISSION HISTORY & PHYSICAL Patient: Kendal Cisneros, 1955, 11/13/24 Subjective SUBJECTIVE HISTORY OF PRESENT ILLNESS Kendal Cisneros is a 69 y.o. woman with PMH of CAD s/p 1V CABG (SVG to RCA 2021), AVR (inspiris resilia, 2019), pacemaker ([employer] BiV, 2016), LBBB, pHTN, pAF on warfarin (goal 2-3), mitral regurgitation, CHF, CKD3, HLD, and TUD who presented to ED per request of neurosurgery w/ c/f thoracic diskitis/osteomyelitis. Patient reports having chronic intermittent back pain before acute worsening in pain around mid-back starting August 2024. States the pain initially started on left side of back before migrating across to both sides. Pain characterized as sharp burning pain, exacerbated by movement, does not radiate anteriorly to chest, and does not radiate to groin, legs, or upper extremities. Notes some numbness/tingling in isolated bilateral hands but states it does not radiate up/down arms and denies numbness/tingling in legs. Further notes generalized weakness, progressive SOB, night sweats and 20 lb weight loss over past 2-3 months. Denies saddle anesthesia, urinary incontinence, inability to void, or other urinary changes. No changes in BM. Further denies chest pain, abdominal pain, n/v/d. Was initially evaluated at OSH and PCP, who suspected kidney stone and was treated for possible UTI without resolution in pain. CT AP performed at the time was unremarkable. Further seen by grey roll man (09/15/24 Dr. Bruner) who did not suspect any renal etiology for the pain. Pain continued to worsen over last two months. Patient was seen by neurosurgery Dr. Flower today. Review of OSH thoracic/lumbar CT (11/10/24 from [place]) showed new osteolysis, cortical irregularities, subcortical sclerosis and distention of the intervertebral disc at T10-T11 with mild prominent prevertebral soft tissues, concerning of discitis osteophyte complex. Patient was recommended topresent to [facility] ER for MRI. 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 Also had L1 compression fracture a few years ago treated with kyphoplasty. Patient has pacemaker device, complicating MRI eval. Patient has hx of multiple cardiac surgeries, denies other back surgeries. Denies hx of recent traumas. Former smoker. Denies alcohol, IVDU, or other substance use. In ED, patient afebrile, HDS, satting well on RA. Labs notable for Cr 1.4 (near baseline), WBC 6, Hgb 8.8, plt 204, INR 2.3. Lytes stable. Past Medical History: Diagnosis Date Age-related osteoporosis without current pathological fracture 09/01/2021 Anemia Arthritis Broken heart syndrome Cancer (HCC) skin cancer Depression Depression Fatigue GERD (gastroesophageal reflux disease) 12/06/2011 Heart disease Hyperlipidemia 10/26/2011 M[facility]enna wants her on Lipitor 40mg qhs Last Assessment & Plan: Status: Stable Interim History: No myalgias. Patient on Lipitor 40 mg qd. Recheck in 3 months labs. Hypertension LBBB (left bundle branch block) 11/18/[address] Villegas at [facility] paper twister tender. Nausea and vomiting 07/25/2022 Osteoarthritis Osteopenia 01/29/2015 DEXA 01/2015 Osteoporosis Paroxysmal atrial fibrillation ([facility]) 05/27/2019 Last Assessment & Plan: On Eliquis Pulmonary HTN ([facility]) 11/18/2012 [facility] documentation seen on ECHO. Severe mitral regurgitation 11/18/2012 Emilie at [facility] paper twister tender. Message from [employer]soft sent at 11/15/2018 4:29 PM [facility] ----- De Dr. Farnsworth. Just FYI regarding my hospital visit, I have an appointment with Dr. Butler???s at [facility] on This Sunday for my TAVR work up. Last Assessment & Plan: Formatting of this note might be different from the [place] Shortness of breath Systolic heart failure ([facility]) 11/18/2012 Mckenna stage III Coreg Lasix and Lisinopril started in hospital in November. Dr. Phan paper twister tender. Last Assessment & Plan: Status: Stable Interim History: No cp's, sob, PTE or calf pains. No weight gains. Continue with Cardiology. Past Surgical History: Procedure Laterality Date ANTERIOR CRUCIATE LIGAMENT REPAIR Right 2003 AORTIC VALVE REPLACEMENT 2019 21mm Inspiris AORTIC VALVULOPLASTY 2019 CARDIAC VALVE REPLACEMENT 2019 CHOLECYSTECTOMY 2018 HYSTERECTOMY 1986 INSERT / REPLACE / REMOVE PACEMAKER 2016 original 2013 KYPHOPLASTY 2021 SKIN CANCER EXCISION Allergies Allergen Reactions Atropine Hypotension SEVERE hypotension Sulfites Nausea And Vomiting Hydrocodone-Acetaminophen Itching Sulfa (Sulfonamide Antibiotics) Nausea only Social History Tobacco Use Smoking status: Former Current packs/day: 0.00 Types: Cigarettes Start date: 1973 Quit date: 11/22/2021 Years since quittin.9 Smokeless tobacco: Never Tobacco comments: now down to 5 cigs/day Substance and Sexual Activity Drug use: Yes Types: Medical marijuana Sexual activity: Not Currently Partners: Male control/protection: Post-menopausal Alcohol Use: Not At Risk (09/15/2024) AUDIT-C Frequency of Alcohol Consumption: Never Average Number of Drinks: Not on file Frequency of Binge Drinking: Not on file Family History Problem Relation Age of Onset Heart disease Mother Heart failure Mother Hypertension Mother Alzheimer's disease Maternal Grandmother 65 No Known Problems Paternal Grandmother Heart disease Father Heart failure Father Hypertension Father Other (heart surgery) Father Heart attack Maternal Grandfather No Known Problems Paternal Grandfather Ovarian cancer Neg Hx Breast cancer Neg Hx Thyroid cancer Neg Hx Home Medications: HOME MEDICATIONS : albuterol HFA (Proventil HFA) 90 mcg/actuation inhaler Breztri Aerosphere 160-9-4.8 mcg/actuation inhaler carvediloL (COREG) 12.5 mg tablet cholecalciferol (VITAMIN D-3) 2000 unit tablet cyclobenzaprine (FLEXERIL) 5 mg tablet famotidine (PEPCID) 40 mg tablet ferrous sulfate 325 mg (65 mg of elemental iron) tablet fluticasone propionate (FLONASE) 50 mcg/actuation nasal spray furosemide (LASIX) 20 mg tablet hydrocortisone (ANUSOL-HC) 1 % cream with perineal applicator ondansetron ODT (ZOFRAN-ODT) 4 mg disintegrating tablet rosuvastatin (CRESTOR) 40 mg tablet sertraline (ZOLOFT) 100 mg tablet spironolactone (ALDACTONE) 25 mg tablet traZODone (DESYREL) 50 mg tablet warfarin (COUMADIN) 3 mg tablet aspirin 81 mg enteric coated tablet diphenhydrAMINE 25 mg capsule tamsulosin (FLOMAX) 0.4 mg extended release capsule Scheduled Medications: Scheduled Medications Medication Dose Route Frequency carvediloL (COREG) tablet 12.5 mg 12.5 mg oral BID with meals (bkfst, dinner) famotidine (PEPCID) tablet 40 mg 40 mg oral Daily fluticasone propionate (FLONASE) 50 mcg/actuation nasal spray 2 spray 2 spray each nostril Daily dxvzcoverro-ohfngkeun-nxzyspas (TRELEGY ELLIPTA) 200-62.5-25 mcg inhaler 1 puff 1 puff inhalation Daily (RT) rosuvastatin (CRESTOR) tablet 40 mg 40 mg oral Daily sertraline (ZOLOFT) tablet 100 mg 100 mg oral Daily sodium chloride 0.9% flush 0.5-20 mL 0.5-20 mL intra-catheter Q8H GLORY spironolactone (ALDACTONE) tablet 25 mg 25 mg oral Daily traZODone (DESYREL) tablet 100 mg 100 mg oral Nightly Continuous Medications: Current Facility-Administered Medications Medication Dose Route Frequency Last Admin PRN Medications: acetaminophen, 1,000 mg albuterol HFA, 2 puff sodium chloride 0.9%, 30 mL ondansetron ODT, 4 mg OR ondansetron, 4 mg polyethylene glycol, 17 g sodium chloride 0.9%, 0.5-20 mL Review of Systems: Review of Systems per HPI and otherwise all other systems are negative. Objective OBJECTIVE VITALS / I&O Most Recent: Vitals: 11/13/241844 BP: 106/46 Pulse: 74 Resp: 16 Temp: 36.6 ??C (97.9 ??F) SpO2: 97% 24hr Min/Max: Temp Min: 36.1 ??C (96.9 ??F) Max: 37.3 ??C (99.2 ??F) Pulse Min: 73 Max: 78 BP Min: 106/46 Max: 117/69 Resp Min: 16 Max: 18 SpO2 Min: 94 % Max: 97 % O2 Therapy for the past 12 hrs: O2 Therapy 11/13/241844 None (Room air) 11/13/24 1244 None (Room air) 63.1 kg (139 lb 1.8 oz) Body mass index is 25.44 kg/m??. No intake or output data in the 24 hours ending 11/13/241904 No intake/output data recorded. No intake/output data recorded. PHYSICAL EXAM Constitutional: Well-developed, well-nourished, in no acute distress HEENT: EOMI, no conjunctival icterus, moist mucous membranes, no oral lesions, normal voice, hearing grossly intact Cardiovascular: Regular rate and rhythm, normal S1/S2, no murmurs/rubs/gallops, no JVD Pulmonary: Clear to auscultation bilaterally, normal work of breathing Abdominal: Soft, non-tender, non-distended, no masses, normal bowel sounds, no guarding or rebound Extremities: Warm, well-perfused, equal pulses, no cyanosis or clubbing, no peripheral edema, briskcapillary refill Skin: Warm and dry, no rashes or lesions noted GI/: no flank pain Neurological: A&Ox4. Spinal tenderness along thoracic spine without radiation to UE/LE. No saddle anesthesia. Numbness/tingling in bilateral hands without radiation. No numbness/tingling in LE. Strength 5/5 in bilateral UE/LE. Psychiatric: Appropriate mood and affect LABS Recent Labs Lab Units 11/13/24 1726 11/13/24 1419 11/10/24 1446 11/10/24 1338 HEMOGLOBIN g/dL 8.5* 8.8* 9.1* 9.0* WBC K/cumm 6.04 6.88 5.85 5.74 PLATELETS K/cumm 184 204 225 227 Recent Labs Lab Units 11/13/24 1419 SODIUM mmol/L 139 POTASSIUM PLASMA mmol/L 3.9 CHLORIDE mmol/L 102 CO2 mmol/L 27 ANIONGAP mmol/L 10 BUN SERUM mg/dL 13 CREATININE mg/dL 1.42* CALCIUM mg/dL 9.5 Recent Labs Lab Units 11/13/24 1419 ALBUMIN g/dL 4.0 ALK PHOS Units/L 104 AST Units/L 18 ALT Units/L 10 BILIRUBIN TOTAL mg/dL 0.2 Recent Labs Lab Units 11/13/24 1726 11/10/24 1446 11/10/24 1342 APTT sec 31 -- -- INR 2.30* 2.22* 2.25* Recent Labs Lab Units 11/10/24 1338 TSH mcIUnit/mL 3.39 Cultures: Lab Results Component Value Date MICROBIOLOGY (.) 08/21/2024 Final Report: Greater than or equal to 100,000 colonies/mL of Klebsiella pneumoniae MICROBIOLOGY Final Report: No growth of pathogens. 03/26/2023 MICROBIOLOGY Final Report: No growth 12/12/2021 MICROBIOLOGY Final Report: No growth 12/07/2021 MICROBIOLOGY Final Report: No growth 12/07/2021 IMAGING XR Chest PA Lateral 2 Views Result Date: 11/13/2024 Comparison 11/13/2023. Unchanged median sternotomy wires, mitral valve repair, aortic valve, and left pectoral pacemaker device with lead tips terminating over right atrium, coronary vein, and right ventricular apex. Right upper quadrant surgical clips and upper lumbar spine vertebral augmentation also noted. There is persistent moderate elevation of the left hemidiaphragm with associated subsegmental atelectasis. Infiltration of the right hemidiaphragm is also present. No pneumothorax, pleuraleffusion, or focal pneumonic consolidation. Cardiomediastinal contours are unchanged. Compression deformity of the lower thoracic spine is better evaluated on recent outside CT examination, but new fr om CT 10/17/2022. Electronically signed by: Gilmer Loyd M.D. Neuro CT Outside Consult Result Date: 11/13/2024 New osteolysis, cortical irregularities, subcortical sclerosis and distention of the intervertebraldisc at T10-T11 with mild prominent prevertebral soft tissues, concerning of discitis osteophyte complex. MRI evaluation is recommended as clinically indicated. The findings, conclusions and recommendations within this report do not replace the initial findings, conclusions and recommendations made at the facility where the study was performed based upon the imaging and clinical condition at thattime. Comparison with the prior report and clinical history is necessary. The provided images may or may not represent the [place] source data set and thus may contain changes that may lower the accuracy of this second-opinion interpretation. Electronically signed by: Valdemar Mcdowell MD Neuro CT Outside Reference Result Date: 11/13/2024 These images are for Reference purposes only and have not been reviewed by [facility]. There will be no report generated by a [facility]iologist. OTHER STUDIES Assessment/Plan ASSESSMENT & PLAN Kendal Cisneros is a 69 y.o. woman with PMH of CAD s/p 1V CABG (SVG to RCA 2021), AVR (inspPsonars resilia, 2019), pacemaker ([employer] Bi[employer], 2016), LBBB, pHTN, pAF on warfarin (goal 2-3), mitral regurgitation, CHF, CKD3, HLD, and TUD who presented to ED per request of neurosurgery w/ c/f thoracic diskitis/osteomyelitis. #Thoracic back pain #C/f Thoracic discitis/osteomyelitis Patient presents with acute worsening in thoracic back around August 2024. 11/10 CTAP w/ new osteolysis, cortical irregularities, subcortical sclerosis and distention of the intervertebral disc at T10-T11 with mild prominent prevertebral soft tissues, concerning of discitis osteophyte complex. Seen by outpatient neurosurgery (Dr. Flower) who recommended admission for total spine MRI. Patientwith spinal tenderness around thoracic region on exam. Afebrile, HDS. WBC 6. - NSGY consulted, appreciate recs - Consider ID consult or Oncology consult pending labs and biopsy/aspiration results - F/u BCx, ESR, CRP - MRI Total Spine W WO - PPM not MRI compatible per OP paper twister tender - MRI safety team reviewing - 2v CXR completed - EP consult placed (call in AM) - Hold warfarin, start bridge heparin gtt - [facility] IR consulted for biopsy - Given therapeutic INR 2.2 from warfarin, IR states that there needs to be a 5 day hold for biopsy. Need to repeat INR prior to procedure. - Repeat TTE for source eval #Pacemaker ([employer] BiV, 2016) #AVR (inspiris resilia, 2019) #Paroxysmal AF Hx severe aortic stenosis. Bioprosthetic AVR placed in 2018 subsequently stenosed, necessitating replacement with mechanical aortic valve in 2021. Previously on ECMO in ICU at [facility]. Further required mitral valve repair. - Warfarin held as above, started heprin bridge #CAD s/p 1V CABG #HLD - Home crestor 40 daily #HTN - Home coreg, spironolactone #CHF 04/02/24 TTE: EF 65-70%, RVSP 28, moderate TR, diastolic dysfunction, normal LV systolic function. Euvolemic on exam. - Repeat TTE as above #Mood disorder - Home sertraline 100 daily, trazodone 50 nightly #GERD - Home famotidine #COPD Home regimen: albuterol, breztri, flonase - Flonase, trelegy ellipta - PRN albuterol DVT prophylaxis: heparin Diet: Adult Diet Regular Code Status: Full Code Dispo: pending Sher Adams MD Ophthalmology Preliminary PGY1 Internal medicine teams are signed in from 7AM-4:30PM on weekdays or 7AM-8PM electronic tech days. On weekends, the primary team may not be available. Before attempting to contact the provider for this patient, please check who is signed into the chart. After 4:30PM, the cross cover resident OR the night float resident should be contacted for concerns about this patient. Cosigned by Kandis Spencer MD at 11/14/2024 6:03 PM CDT Associated attestation - Kandis Spencer MD - 11/14/2024 6:03 PM CDT I have seen and examined the patient on 11/14/24. I agree with the findings and plan of care as documented in the resident's/fellow's note. Presented to NSGY with back pain, found to have imaging findings concerning for vertebral OM. Bacteremic with E faecalis. Significant cardiac history including mitral valve repair, bioAVR c/b graft failure -> mechanical AVR on warfarin (last dose reportedly 11/11), PPM. Heparin gtt bridge (can do Lovenox too, but already close to therapeutic on heparin). Proceed with ampicillin+ceftriaxone for presumed endocarditis + osteomyelitis. No vegetations on TTE, may need NEVAEH. Follow cultures to assessfor polymicrobial infection. Awaiting MRI (needs EP clearance since she has a pacemaker). May need a bone biopsy - anticoagulation bridge started. Appreciate input from ID, EP. Appreciate [facility]-IR assistance with bone biopsy when safe from anticoagulation standpoint. Today, I am treating the patient for E faecalis bacteremia which is in severe exacerbation, progression, or experiencing treatment side effects as evidenced by concern for cardiac and osseous involvement, as described in the note. Reviewed records from the following unique sources (external institutions or providers from different services): nsgy. The patient is being intensively monitored for drug toxicity from ampicillin and ceftriaxone by checking CBC, BMP. documented in this encounter Procedure Notes * Felicia Smallwood RN - 11/26/2024 4:38 PM CDT Vascular Access Nurse: Procedure Note Summary of treatment provided to patient today is as follows : . Bedside Procedure Time out/Checklist (Last 4 Hours) Pre-Op Checklist Row Name 11/26/24 1628 11/26/24 1609 Patient/Chart Verification Patient ID Verified Verbal - Verbal;Armband - Allergies Verified -- Yes - Arm Bands On ID - ID;Fall;Allergies - Consents Confirmed -- Informed - Pre-op Lab/Test Results Available -- Not applicable - Blood Products Needed -- No - Blood Products Available -- Not applicable - Procedure Verification Correct Patient Yes -MF -- Correct Procedure Yes -MF -- Correct Laterality Yes - -- Correct Site Yes -MF -- Site Marked Not applicable -MF Not applicable - Pre Procedure Bedside Setup (ICU's) Correct Patient Position -- Yes - User Jackson (r) = Recorded By, (t) = Taken By, (c) = Cosigned By Initials Name Kei Malone RN Felicia Smallwood RN Vascular Access Documentation (Last 4 Hours) [facility] Additional Procedures Row Name 11/26/24 1628 PICC Screening Questionnaire Order written on the chart for PICC insertion or placement? Y - Information form/Consent Obtained from POA/ Family N - Are there any location restrictions? N -MF Does the patient have history of DVT or SVC syndrome? N -MF Does the patient currently have blood clots in chest / arms? N - Review of all IV meds/drips completed Yes -MF Patient allergies reviewed? Y - Labs Reviewed if applicable INR;Blood Cultures;Platelet count;Creatinine;GFR - Procedures Line Type PICC double - Time in 1609 - Time out 1654 - Time Calculation (min) 45 min - Vascular Access Procedures PICC line assessment;PICC line placement;PICC dressing change;Education PICC/Midline -MF Patient Response Tolerated (no change in status) -MF [REMOVED] Peripheral IV 11/13/24 20 G Left;Posterior Hand IV Properties Placement Date: 11/13/24 -CL Size (Gauge): 20 G -CL Location Orientation: Left;Posterior -CL Location: Hand -CL Technique: Anatomical landmarks -CL Insertion attempts: 1 -CL Patient Tolerance: Tolerated well -CL Removal Date: 11/26/24 -AH Removal Time: 161 -AH Removal Reason : Removed by patient -AH, Accidental Peripheral IV 11/20/24 20 G Anterior;Right Forearm IV Properties Placement Date: 11/20/24 -DP Placement Time: 2029 -DP Size (Gauge): 20 G -DP LocationOrientation: Anterior;Right -DP Location: Forearm -DP Site Prep: Chlorhexidine -DP Inserted by: Beck PRETTY -DP Insertion attempts: 1 -DP Patient Tolerance: Tolerated well -DP [REMOVED] Peripheral IV 11/25/24 16 G Right Hand IV Properties Placement Date: 11/25/24 -CLA Placement Time: 1935 -CLA, created via procedure documentation Size (Gauge): 16 G -CLA Location Orientation: Right -CLA Location: Hand -CLA Site Prep: Chlorhexidine -CLA Insertion attempts: 1 - CLA Removal Date: 11/26/24 -RM Removal Time: 140 -RM Removal Reason : Not present on admission -RM PICC Double Lumen 11/26/24 Non-tunneled Power #1 Red, #2 Purple, Right Basilic;Upper arm Line Properties Placement Date: 11/26/24 -MF Placement Time: 162 -MF Catheter Time Out Checklist Completed: Yes -MF Hand Hygiene Performed: Yes -MF Site Prep: Alcohol;Chlorhexidine -MF Site Prep Agent has Completely Dried Before Insertion: Yes -MF All 5 Sterile Barriers or Appropriate Barriers Used (Gloves, Gown, Cap, Mask, Large Sterile Drape): Yes -MF Local Anesthetic: Injectable -MF, 2ml of lidocain 1% CVC Type: Non-tunneled -MF Power injectable: Power -MF Lumen # 1: #1 Red, -MF Lumen # 2: #2 Purple, -MF Size (Fr): 4 -MF Orientation: Right -MF Location: Basilic;Upper arm -MF Technique: Modified seldinger;Internal stiffener stylet removed easily;Ultrasound used to locate and cannulate vei n;Standard insertion technique with peel away sheath - Lot #: [id number] - Expiration Date: 10/06/25 -MF Trimmed Length (cm) : 36 cm -MF Line Tip Location : Central -MF Initial Extremity Circumference (cm): 32 cm -MF Circumference Reference Point: 5 -MF Initial External Length Catheter (cm): 1 cm-MF Placement Verification: Blood return;3CG;Ultrasound - Line Secured by : Securement device -MFInserted by: Zach Scott RN - Assisted By: Janessa smallwood RN - Insertion attempts: 1 -MF Patient Tolerance: Tolerated well - Description (optional): DL power PICC - Site Assessment Clean and dry - External Length ryan (cm) 1 cm -MF Extremity Circumference (cm) 32 cm -MF Dressing Type CHG Dressing -MF Dressing Status New;Clean, dry, intact;Occlusive -MF Dressing Change Due 12/03/24 -MF Lumen #1 Status Blood return brisk; end in place;Disinfectant cap in place;Flushes easily;Saline locked - Lumen #2 Status Blood return brisk;Flushes easily;Saline locked;Disinfectant cap in place; end in place - Line Necessity Reason Reviewed With Care Team Receiving high risk meds that could damage tissue if infiltrated (e.g. vasopressors, vesicants, TPN, high destrose concentration, chemotherapy, osmolality therapy) - User Jackson (r) = Recorded By, (t) = Taken By, (c) = Cosigned By Initials Name Kei Malone RN [facility], MARIA DE JESUS Hemphill CLA, Christopher Allen, MD DP [place], [place] Bebe Salomon RN Felicia Smallwood RN Plan: Follow up: Felicia Smallwodo RN * Felicia Smallwood RN - 11/14/2024 11:37 AM CDT Vascular Access Nurse: Procedure Note Summary of treatment provided to patient today is as follows : . Bedside Procedure Time out/Checklist (Last 4 Hours) Pre-Op Checklist Row Name 11/14/24 0900 Patient Preparation Temp 36.5 ??C (97.7 ??F) - User Jackson (r) = Recorded By, (t) = Taken By, (c) = Cosigned By Initials Name Aleta Solis RN Vascular Access Documentation (Last 4 Hours) [facility] Additional Procedures Row Name 11/14/24 1133 11/14/24 1030 Procedures Line Type Peripheral - -- Time in 1130 -MF -- Time out 1140 -MF -- Time Calculation (min) 10 min - -- Vascular Access Procedures Difficult IV start - -- Patient Response Tolerated (no change in status) - -- Peripheral IV 11/13/24 20 G Left;Posterior Hand IV Properties Placement Date: 11/13/24 -CL Size (Gauge): 20 G -CL Location Orientation: Left;Posterior -CL Location: Hand -CL Technique: Anatomical landmarks -CL Insertion attempts: 1 -CL Patient Tolerance: Tolerated well -CL Site Assessment -- Clean and dry - IV Line Status Single -- Infusing - Dressing Type -- Transparent - Dressing Status -- Clean, dry, intact - Dressing Intervention -- Site care - Dressing Change Due -- 11/20/24 - Peripheral IV 11/14/24 22 G Anterior;Right Hand IV Properties Placement Date: 11/14/24 -MF Placement Time: 1135 -MF Length of Catheter: 1 in -MF Size (Gauge): 22 G -MF Location Orientation: Anterior;Right - MF Location: Hand -MF Site Prep: Alcohol;Chlorhexidine - Technique: Anatomical landmarks - Verification: Able to advance catheter;Irrigates easily with normal saline;Able to cannulate vein;Blood Return - Inserted by: Mary Mclean RN - Insertion attempts: 1 -MF Patient Tolerance: Tolerated well - Site Assessment Clean and dry - -- IV Line Status Single Blood return noted;Capped;Capped Disinfectant;Flushes easily;Saline locked - -- Dressing Status New;Clean, dry, intact;Occlusive - -- Dressing Change Due 11/21/24 - -- User Jackson (r) = Recorded By, (t) = Taken By, (c) = Cosigned By Initials Name Aleta Solis, MARIA DE JESUS CL Bebe Mike RN Felicia Smallwood RN Plan: Follow up: Felicia Smallwood RN documented in this encounter Consult Notes * Dru Scott MD - 11/20/2024 5:04 PM CDT Cardiothoracic Surgery Consult Kendal Cisneros 1955 Reason for Consult: PPM vegetation Physician Referring: Baltazar Manzano,* Chief Complaint: Chief Complaint Patient presents with Back Pain HPI: Kendal Cisneros is 69 y.o. White female with history of CAD s/p CABG, AVR 2018 and redo sternotomy, ascending and mechanical composite root replacement with LVOT patch augmentation 2021, PPM 2015,Afib, HTN, CHF admitted for thoracic osteomyelitis. The patient reports pain that worsened in August. Seen by neurosurgery earlier this month and found to have discitis osteophyte complex and was recommended to present for admission. Blood cultures positive for E faecalis. NEVAEH with linear echodensity in right atrium. ID recommending removal of PPM. Past Medical History: Diagnosis Date Age-related osteoporosis without current pathological fracture 09/01/2021 Anemia Arthritis Broken heart syndrome Cancer (HCC) skin cancer Depression Depression Fatigue GERD (gastroesophageal reflux disease) 12/06/2011 Heart disease Hyperlipidemia 10/26/2011 [facility] wants her on Lipitor 40mg qhs Last Assessment & Plan: Status: Stable Interim History: No myalgias. Patient on Lipitor 40 mg qd. Recheck in 3 months labs. Hypertension LBBB (left bundle branch block) 11/18/2012 Raz Villegas at [facility] paper twister tender. Nausea and vomiting 07/25/2022 Osteoarthritis Osteopenia 01/29/2015 DEXA 01/2015 Osteoporosis Paroxysmal atrial fibrillation (HCC) 05/27/2019 Last Assessment & Plan: On Eliquis Pulmonary HTN (HCC) 11/18/2012 [facility] documentation seen on ECHO. Severe mitral regurgitation 11/18/2012 mEilie at [facility] paper twister tender. Message from Mike Haji sent at 11/15/2018 4:29 PM [facility] ----- De Dr. Farnsworth. Just GERALDO regarding my hospital visit, I have an appointment with Dr. Butler???s at [facility] on This Sunday for my TAVR work up. Last Assessment & Plan: Formatting of this note might be different from the [place] Shortness of breath Systolic heart failure (HCC) 11/18/2012 [facility] stage III Coreg Lasix and Lisinopril started in hospital in November. Dr. Phan paper twister tender. Last Assessment & Plan: Status: Stable Interim History: No cp's, sob, PTE or calf pains. No weight gains. Continue with Cardiology. Past Surgical History: Procedure Laterality Date ANTERIOR CRUCIATE LIGAMENT REPAIR Right 2003 AORTIC VALVE REPLACEMENT 2019 21mm Inspiris AORTIC VALVULOPLASTY 2019 BIOPSY DEEP BONE N/A 11/17/2024 CARDIAC VALVE REPLACEMENT 2019 CHOLECYSTECTOMY 2018 HYSTERECTOMY 1986 INSERT / REPLACE / REMOVE PACEMAKER 2016 original 2012 KYPHOPLASTY 2021 SKIN CANCER EXCISION HOME MEDICATIONS : albuterol HFA (Proventil HFA) 90 mcg/actuation inhaler Breztri Aerosphere 160-9-4.8 mcg/actuation inhaler carvediloL (COREG) 12.5 mg tablet cholecalciferol (VITAMIN D-3) 2000 unit tablet cyclobenzaprine (FLEXERIL) 5 mg tablet famotidine (PEPCID) 40 mg tablet ferrous sulfate 325 mg (65 mg of elemental iron) tablet fluticasone propionate (FLONASE) 50 mcg/actuation nasal spray furosemide (LASIX) 20 mg tablet hydrocortisone (ANUSOL-HC) 1 % cream with perineal applicator ondansetron ODT (ZOFRAN-ODT) 4 mg disintegrating tablet rosuvastatin (CRESTOR) 40 mg tablet sertraline (ZOLOFT) 100 mg tablet spironolactone (ALDACTONE) 25 mg tablet traZODone (DESYREL) 50 mg tablet warfarin (COUMADIN) 3 mg tablet Current Facility-Administered Medications: acetaminophen (TYLENOL) tablet 1,000 mg, 1,000 mg, oral, Q6H GLORY, 1,000 mg at 11/20/24 0503 albuterol HFA (PROVENTIL HFA,VENTOLIN HFA,PROAIR HFA) 90 mcg/actuation inhaler 2 puff, 2 puff, inhalation, Q4H PRN (RT) ampicillin 2,000 mg/60 mL in sterile water IVPB (premix) 2,000 mg, 2,000 mg, intravenous, Q6H GLORY, Last Rate: 120 mL/hr at 11/20/24 1023, 2,000 mg at 11/20/24 1023 Carrier Fluids for Secondary Infusion - 0.9% Sodium Chloride, 30 mL, intravenous, PRN [Held by Provider] carvediloL (COREG) tablet 12.5 mg, 12.5 mg, oral, BID with meals (bkfst, dinner), 12.5 mg at 11/13/24 1711 cefTRIAXone (ROCEPHIN) 2,000 mg/20 mL in sterile water (premix) 2,000 mg, 2,000 mg, intravenous, Q12H GLORY, 2,000 mg at 11/20/24 0844 famotidine (PEPCID) tablet 40 mg, 40 mg, oral, Daily, 40 mg at 11/20/24 0844 fluticasone propionate (FLONASE) 50 mcg/actuation nasal spray 2 spray, 2 spray, each nostril, Daily, 2 spray at 11/15/24 0842 avkhbkpbboi-fokqbiphw-jzyhnxgr (TRELEGY ELLIPTA) 200-62.5-25 mcg inhaler 1 puff, 1 puff, inhalation, Daily, 1 puff at 11/19/24 0813 heparin 1,000 unit/mL injection 2,000 Units, 2,000 Units, intravenous, Q6H PRN OR heparin 1,000unit/mL injection 3,000 Units, 3,000 Units, intravenous, Q6H PRN heparin in 0.45% sodium chloride 25,000 units/250 mL (100 units/mL) infusion (premix), 0-33 Units/kg/hr, intravenous, Titrated, Last Rate: 10.73 mL/hr at 11/20/24 0003, 17 Units/kg/hr at 11/20/24 0003 HYDROmorphone (DILAUDID) injection 0.2 mg, 0.2 mg, intravenous, Q2H PRN lidocaine (LIDODERM) 5 % patch 1 patch, 1 patch, transdermal, Q24H, 1 patch at 11/19/241950 methocarbamoL (ROBAXIN) tablet 750 mg, 750 mg, oral, TID, 750 mg at 11/20/24 1023 ondansetron ODT (ZOFRAN-ODT) disintegrating tablet 4 mg, 4 mg, oral, Q6H PRN, 4 mg at 11/17/24 0607OR ondansetron (ZOFRAN) injection 4 mg, 4 mg, intravenous, Q6H PRN, 4 mg at 11/20/24 1122 oxyCODONE (ROXICODONE) tablet 5 mg, 5 mg, oral, Q4H PRN, 5 mg at 11/19/24 2122 perflutren lipid (DEFINITY) 1.5 mL in sodium chloride 0.9% 10 mL syringe, 1-10 mL, intravenous, Once in imaging polyethylene glycol (MIRALAX) packet 17 g, 17 g, oral, Daily PRN prochlorperazine (COMPAZINE) injection 5 mg, 5 mg, intravenous, Q6H PRN rosuvastatin (CRESTOR) tablet 40 mg, 40 mg, oral, Daily, 40 mg at 11/20/24 0843 sertraline (ZOLOFT) tablet 100 mg, 100 mg, oral, Daily, 100 mg at 11/20/24 0844 sodium chloride 0.9% flush 0.5-20 mL, 0.5-20 mL, intra-catheter, Q8H GLORY, 10 mL at 11/18/242015 sodium chloride 0.9% flush 0.5-20 mL, 0.5-20 mL, intra-catheter, PRN sodium chloride 0.9% infusion, 30 mL/hr, intravenous, Continuous, Last Rate: 30 mL/hr at 11/19/24 1216, 30 mL/hr at 11/19/24 1216 [Held by Provider] spironolactone (ALDACTONE) tablet 25 mg, 25 mg, oral, Daily traZODone (DESYREL) tablet 100 mg, 100 mg, oral, Nightly, 100 mg at 11/19/242003 Allergies Allergen Reactions Atropine Hypotension SEVERE hypotension Sulfites Nausea And Vomiting Hydrocodone-Acetaminophen Itching Sulfa (Sulfonamide Antibiotics) Nausea only Family History Problem Relation Age of Onset Heart disease Mother Heart failure Mother Hypertension Mother Alzheimer's disease Maternal Grandmother 65 No Known Problems Paternal Grandmother Heart disease Father Heart failure Father Hypertension Father Other (heart surgery) Father Heart attack Maternal Grandfather No Known Problems Paternal Grandfather Ovarian cancer Neg Hx Breast cancer Neg Hx Thyroid cancer Neg Hx Social History Tobacco Use Smoking status: Former Current packs/day: 0.00 Types: Cigarettes Start date: 1973 Quit date: 11/22/2021 Years since quittin.9 Smokeless tobacco: Never Tobacco comments: now down to 5 cigs/day Substance and Sexual Activity Drug use: Yes Types: Medical marijuana Sexual activity: Not Currently Partners: Male control/protection: Post-menopausal Alcohol Use: Not At Risk (09/15/2024) AUDIT-C Frequency of Alcohol Consumption: Never Average Number of Drinks: Not on file Frequency of Binge Drinking: Not on file Review of Systems - Review of Systems negative except those described in HPI and below: Review of Systems Vital Signs: Vitals: 11/20/24 1443 BP: 110/51 Pulse: 82 Resp: 18 Temp: 36.5 ??C (97.7 ??F) SpO2: 94% Cardiac Rhythm: Normal sinus rhythm, Sinus tachycardia (11/14/24 1710) Body surface area is 1.66 meters squared. I/O last 2 completed shifts: In: 660 [P.O.:660] Out: 0 Physical Exam Labs: Reviewed. Recent Labs Lab Units 11/19/24 2049 WBC K/cumm 5.84 HEMOGLOBIN g/dL 7.7* HEMATOCRIT % 24.9* PLATELETS K/cumm 170 Recent Labs Lab Units 11/19/24 2049 SODIUM mmol/L 140 POTASSIUM PLASMA mmol/L 3.8 CHLORIDE mmol/L 105 CO2 mmol/L 26 ANIONGAP mmol/L 9 GLUCOSE mg/dL 89 BUN SERUM mg/dL 12 CREATININE mg/dL 1.27* CALCIUM mg/dL 9.1 ALBUMIN g/dL 2.9* ALK PHOS Units/L 88 ALT Units/L 23 AST Units/L 34 BILIRUBIN TOTAL mg/dL <0.2 Imaging: Transesophageal Echo (NEVAEH) W Doppler/CF Final Result IR Biopsy Deep Bone Final Result 1. T10-T11 bone/disc biopsy under fluoroscopic guidance. The core specimens and aspirate were sent to surgical pathology and microbiology. Electronically signed by: Riley Joya MD MRI Spine Total Complete W WO Contrast Final Result 1. Abnormal signal within the T10-T11 vertebral bodies and disc space with cortical erosion and paraspinal soft tissue edema, concerning for osteomyelitis discitis at this level. 2. Redemonstrated L1 vertebral body compression fracture with postoperative changes of augmentation. 3. Nonspecific hyperintense signal within the david, incompletely evaluated. Recommend dedicated brain MRI if clinically indicated. 4. Mild to moderate degenerative changes of the cervical, thoracic, and lumbar spine as above. Dictated by: Ariel Babb M.D. The radiology attending physician has personally reviewed this study, and had reviewed and/or edited this written report and agrees with it. Electronically signed by: Jessica Pagan M.D. Transthoracic Echo (TTE) Complete W Doppler/CF Final Result XR Chest PA Lateral 2 Views Final Result Comparison 11/13/2023. Unchanged median sternotomy wires, mitral valve repair, aortic valve, and left pectoral pacemaker device with lead tips terminating over right atrium, coronary vein, and right ventricular apex. Right upper quadrant surgical clips and upper lumbar spine vertebral augmentation also noted. There is persistent moderate elevation of the left hemidiaphragm with associated subsegmental atelectasis. Infiltration of the right hemidiaphragm is also present. No pneumothorax, pleural effusion, or focal pneumonic consolidation. Cardiomediastinal contours are unchanged. Compression deformity of the lower thoracic spine is better evaluated on recent outside CT examination, but new from CT 10/17/2022. Electronically signed by: Gilmer Loyd M.D. Neuro CT Outside Consult Final Result New osteolysis, cortical irregularities, subcortical sclerosis and distention of the intervertebral disc at T10-T11 with mild prominent prevertebral soft tissues, concerning of discitis osteophyte complex. MRI evaluation is recommended as clinically indicated. The findings, conclusions and recommendations within this report do not replace the initial findings, conclusions and recommendations made at the facility where the study was performed based upon the imaging and clinical condition at that time. Comparison with the prior report and clinical history is necessary. The provided images may or may not represent the [place] source data set and thus may contain changes that may lower the accuracy of this second-opinion interpretation. Electronically signed by: Valdemar Mcdowell MD Neuro CT Outside Reference Final Result STS Risk: NA Assessment and Plan: Kendal Cisneros is 69 y.o. White female with history of CAD s/p CABG, AVR 2018 and redo sternotomy, ascending and mechanical composite root replacement with LVOT patch augmentation 2021, PPM 2015, Afib, HTN, CHF with infected PPM lead. -Pacemaker interrogated, patient not dependent -Will plan for device removal in OR, likely Sunday at earliest This patient has been discussed with Dr. Rg, who agrees with the assessment and plan above. Thank you for allowing us to participate in the care of this patient. We will continue to follow. Dru Scott MD Fellow, Cardiothoracic Surgery [facility] [employer] [facility] Cosigned by Milad Rg MD at 11/23/2024 10:57 PM CDT Associated attestation - Milad Rg MD - 11/23/2024 10:57 PM CDT I have seen and examined the patient on 11/20/2024. I agree with the findings and plan of care as documented in the resident's/fellow's note.. * Jennifer Pate MD - 11/14/2024 10:47 AM CDTAssociated Order(s): CONSULT TO GENERAL INFECTIOUS DISEASE Infectious Disease Initial Consult Note Infectious Disease Team: General 4 Contact Information: Please see EPIC Treatment Team listing for up-to-date contact information. Requesting Physician: Kandis Spencer MD Reason for Consult: Diagnostic and treatment recommendations, as well as assistance with follow up care. Subjective Chief Complaint: Lumbar OM and E faecalis BSI HPI: The patient is a 69 y.o. female with PMH of CAD s/p CABG, AVR 2018, PPM 2016, HTN, Afib, mitral regurg, CHF, CKD, HLD, L1 compression fracture s/p kyphoplasty, who presented with concern for thoracicOM. Patient has chronic intermittent mid thoracic back pain that worsened in Aug 2024, associated with generalized weakness, night sweats, weight loss. She is unaware of fevers but has not been taking temp at home. No abdominal pain, GI or urinary symptoms. She was initially evaluated at OSH and PCP who suspected kidney stone. Ucx 08/21 grew Klebsiella pneumoniae and was treated for possible UTI with cipro for 7 days although she never had UTI symptoms and back pain did not improve. CT AP 08/22 was performed which was unremarkable. Given persistent and worsening pain she was then seen by NSGY on 11/13 and review of OSH CT T/L spine wo contrast 11/10 showed new osteolysis, cortical irregularities,subcortical sclerosis and distension of the intervertebral disc at T10-11 with mild prominent prevertebral soft tissues, concerning for discitis osteophyte complex. She was recommended to present to the ED. In the ED she was afebrile and HDS. Labs without leukocytosis, ESR 82 and CRP 17. Bcx on 11/13 growing E faecalis. She was started on ampicillin and ceftriaxone. NSGY consulted and recommended MRI spine and IR biopsy. Pending MRI spine. TTE today showed MV repair with annuloplasty ring, mechanical AV, wire noted in R heart. She denies any issue with PPM since placed, no other retained foreign bodies/hardware besides mechanical valve. Denies pain at other joints or open wounds. She reports she has dental cleanings/procedures every 3 months with last in Jul 25, did take pre procedural amoxicillin. Past Medical History: 09/01/2021: Age-related osteoporosis without current pathological fracture No date: Anemia No date: Arthritis No date: Broken heart syndrome No date: Cancer (HCC) Comment: skin cancer No date: Depression No date: Depression No date: Fatigue 12/06/2011: GERD (gastroesophageal reflux disease) No date: Heart disease 10/26/2011: Hyperlipidemia Comment: Mckenna wants her on Lipitor 40mg qhs Last Assessment & Plan: Status: Stable Interim History: No myalgias. Patient on Lipitor 40 mg qd. Recheck in 3 months labs. No date: Hypertension 11/18/2012: LBBB (left bundle branch block) Comment: Raz Villegas at [facility] paper twister tender. 07/25/2022: Nausea and vomiting No date: Osteoarthritis 01/29/2015: Osteopenia Comment: DEXA 01/2015 No date: Osteoporosis 05/27/2019: Paroxysmal atrial fibrillation (HCC) Comment: Last Assessment & Plan: On Eliquis 11/18/2012: Pulmonary HTN (HCC) Comment: Raz documentation seen on ECHO. 11/18/2012: Severe mitral regurgitation Comment: Emilie at [facility] paper twister tender. Message from [employer]soft sent at 11/15/2018 4:29 PM [facility] ----- Hi Dr. Farnsworth. Just GERALDO regarding my hospital visit, I have an appointment with Dr. Butler???s at [facility] on This Sunday for my TAVR work up. Last Assessment & Plan: Formatting of this note might be different from the mars No date: Shortness of breath 11/18/2012: Systolic heart failure (HCC) Comment: Mckenna stage III Coreg Lasix and Lisinopril started in hospital in November. Dr. Phan paper twister tender. Last Assessment & Plan: Status: Stable Interim History: No cp's, sob, PTE or calf pains. No weight gains. Continue with Cardiology. Past Surgical History: 2003: ANTERIOR CRUCIATE LIGAMENT REPAIR; Right 2019: AORTIC VALVE REPLACEMENT Comment: 21mm Inspiris 2019: AORTIC VALVULOPLASTY 2019: CARDIAC VALVE REPLACEMENT 2018: CHOLECYSTECTOMY 1986: HYSTERECTOMY 2016: INSERT / REPLACE / REMOVE PACEMAKER Comment: original 2012 2021: KYPHOPLASTY No date: SKIN CANCER EXCISION HOME MEDICATIONS : albuterol HFA (Proventil HFA) 90 mcg/actuation inhaler Breztri Aerosphere 160-9-4.8 mcg/actuation inhaler carvediloL (COREG) 12.5 mg tablet cholecalciferol (VITAMIN D-3) 2000 unit tablet cyclobenzaprine (FLEXERIL) 5 mg tablet famotidine (PEPCID) 40 mg tablet ferrous sulfate 325 mg (65 mg of elemental iron) tablet fluticasone propionate (FLONASE) 50 mcg/actuation nasal spray furosemide (LASIX) 20 mg tablet hydrocortisone (ANUSOL-HC) 1 % cream with perineal applicator ondansetron ODT (ZOFRAN-ODT) 4 mg disintegrating tablet rosuvastatin (CRESTOR) 40 mg tablet sertraline (ZOLOFT) 100 mg tablet spironolactone (ALDACTONE) 25 mg tablet traZODone (DESYREL) 50 mg tablet warfarin (COUMADIN) 3 mg tablet Current Facility-Administered Medications Ordered in Epic Medication Dose Route Frequency Provider Last Rate Last Admin acetaminophen (TYLENOL) tablet 1,000 mg 1,000 mg oral Q6H Lia Dunn MD albuterol HFA (PROVENTIL HFA,VENTOLIN HFA,PROAIR HFA) 90 mcg/actuation inhaler 2 puff 2 puff inhalation Q4H PRN (RT) Eliane Feng NP ampicillin 2,000 mg/60 mL in sterile water IVPB (premix) 2,000 mg 2,000 mg intravenous Q6H Lia Dunn MD Carrier Fluids for Secondary Infusion - 0.9% Sodium Chloride 30 mL intravenous PRN Eliane Feng NP [Held by Provider] carvediloL (COREG) tablet 12.5 mg 12.5 mg oral BID with meals (bkfst, dinner) Eliane Feng BOX PRINTER 12.5 mg at 11/13/24 1711 cefTRIAXone (ROCEPHIN) 2,000 mg/20 mL in sterile water (premix) 2,000 mg 2,000 mg intravenous Q24H Lia Dunn MD famotidine (PEPCID) tablet 40 mg 40 mg oral Daily Eliane Feng BOX PRINTER 40 mg at 11/14/24 0933 fluticasone propionate (FLONASE) 50 mcg/actuation nasal spray 2 spray 2 spray each nostril Daily Jung, Eliane M., BOX PRINTER zawpppmhgvf-jubjxfayu-czaiwffq (TRELEGY ELLIPTA) 200-62.5-25 mcg inhaler 1 puff 1 puff inhalation Daily Kandis Spencer MD heparin 1,000 unit/mL injection 2,000 Units 2,000 Units intravenous Q6H PRN Sher Adams MD Or heparin 1,000 unit/mL injection 3,000 Units 3,000 Units intravenous Q6H PRN Sher Adams MD heparin in 0.45% sodium chloride 25,000 units/250 mL (100 units/mL) infusion (premix) 0-33 Units/kg/hr intravenous Titrated Sher Adams MD 9.47 mL/hr at 11/14/24 0538 15 Units/kg/hr at 11/14/24 0538 HYDROmorphone (DILAUDID) injection 0.2 mg 0.2 mg intravenous Q2H PRN Lia Hernandez MD methocarbamoL (ROBAXIN) tablet 500 mg 500 mg oral TID Lia Hernandez MD 500 mg at 11/14/24 0934 ondansetron ODT (ZOFRAN-ODT) disintegrating tablet 4 mg 4 mg oral Q6H PRN Eliane Feng NP Or ondansetron (ZOFRAN) injection 4 mg 4 mg intravenous Q6H PRN Eliane Feng, JULIETA oxyCODONE (ROXICODONE) tablet 5 mg 5 mg oral Q4H PRN Lia Hernandez MD 5 mg at 11/14/24 0934 perflutren lipid (DEFINITY) 1.5 mL in sodium chloride 0.9% 10 mL syringe 1-10 mL intravenous Once in imaging Kandis Spencer MD polyethylene glycol (MIRALAX) packet 17 g 17 g oral Daily PRN Eliane Feng, BOX PRINTER rosuvastatin (CRESTOR) tablet 40 mg 40 mg oral Daily Eliane Feng, BOX PRINTER 40 mg at 11/14/24 0933 sertraline (ZOLOFT) tablet 100 mg 100 mg oral Daily Eliane Feng, BOX PRINTER 100 mg at 11/14/24 0934 sodium chloride 0.9% flush 0.5-20 mL 0.5-20 mL intra-catheter Q8H GLORY Eliane Feng, BOX PRINTER 10 mL at 11/13/242031 sodium chloride 0.9% flush 0.5-20 mL 0.5-20 mL intra-catheter PRN Eliane Feng, JULIETA [Held by Provider] spironolactone (ALDACTONE) tablet 25 mg 25 mg oral Daily Eliane Feng, BOX PRINTER traZODone (DESYREL) tablet 100 mg 100 mg oral Nightly Eliane Feng, BOX PRINTER 100 mg at 11/13/242031 No current Epic-ordered outpatient medications on file. Anti-infectives (From admission, onward) Start Dose/Rate Route Frequency Ordered Stop 11/14/24 1000 cefTRIAXone (ROCEPHIN) 2,000 mg/20 mL in sterile water (premix) 2,000 mg 2,000 mg 240 mL/hr over 5 Minutes intravenous Every 24 hours scheduled 11/14/24 0927 11/14/24 0915 ampicillin 2,000 mg/60 mL in sterile water IVPB (premix) 2,000 mg 2,000 mg 120 mL/hr over 30 Minutes intravenous Every 6 hours scheduled 11/14/24 0910 Active Lines/Ports/Devices: Peripheral IV 11/13/24 20 G Left;Posterior Hand (Active) Number of days: 1 Patient Allergies: Allergies Allergen Reactions Atropine Hypotension SEVERE hypotension Sulfites Nausea And Vomiting Hydrocodone-Acetaminophen Itching Sulfa (Sulfonamide Antibiotics) Nausea only Social History Social History Narrative Not on file reports that she quit smoking about 2 years ago. Her smoking use included cigarettes. She started smoking about 51 years ago. She has never used smokeless tobacco. She reports current drug use. Drug:Medical marijuana. Patient denies consuming alcoholic drinks. Family history reviewed and non-contributory Family History Problem Relation Age of Onset Heart disease Mother Heart failure Mother Hypertension Mother Alzheimer's disease Maternal Grandmother 65 No Known Problems Paternal Grandmother Heart disease Father Heart failure Father Hypertension Father Other (heart surgery) Father Heart attack Maternal Grandfather No Known Problems Paternal Grandfather Ovarian cancer Neg Hx Breast cancer Neg Hx Thyroid cancer Neg Hx Review of Systems: Constitutional: No fevers, chills HEENT: No headache, visual loss or yellow sclerae, no congestion, rhinorrhea or odynophagia. Respiratory: No shortness of breath, cough or sputum. Cardiovascular: No chest pain. Gastrointestinal: No abdominal pain, anorexia, nausea, vomiting or diarrhea. Genitourinary: No dysuria. Musculoskeletal:+back pain. Skin: No rashes or skin lesions. Neurological: No weakness, numbness or tingling. Hematological: No enlarged lymph nodes. All other systems reviewed and are negative. Objective Vitals: 24hr Min/Max: Temp Min: 36.5 ??C (97.7 ??F) Max: 37.3 ??C (99.2 ??F) Pulse Min: 73 Max: 102 BP Min: 102/62 Max: 117/69 Resp Min: 16 Max: 18 SpO2 Min: 94 % Max: 97 % Most Recent : Vitals: 11/14/24 0900 BP: 112/60 Pulse: 102 Resp: 16 Temp: 36.5 ??C (97.7 ??F) SpO2: 97% Vitals: 11/13/24 1845 11/13/24 1933 11/14/24 0338 11/14/24 0900 BP: 106/46 114/67 102/62 112/60 BP Location: Right arm Left arm Left arm Right arm Patient Position: Sitting Lying;HOB 30 degrees Lying;HOB 30 degrees Sitting Pulse: 74 74 74 102 Resp: 16 16 16 16 Temp: 36.6 ??C (97.9 ??F) 36.6 ??C (97.9 ??F) 36.8 ??C (98.2 ??F) 36.5 ??C (97.7 ??F) TempSrc: Oral Oral Oral Oral SpO2: 97% 97% 97% 97% Weight: 63.1 kg (139 lb 1.8 oz) Height: 157.5 cm (5' 2) No intake/output data recorded. Physical Exam: GENERAL: Awake, not in cardiorespiratory distress HEENT: Anicteric sclerae, pink conjunctivae, moist mucosae, no pharyngeal erythema, no neck masses LUNGS: Normal breath sounds, no crackles, no wheezes HEART: + click, no murmurs ABDOMEN: Nondistended, nontender, and soft abdomen EXTREMITY: No edema, no clubbing BACK: Difficulty with movement due to pain, severe tenderness to palpation over mid thoracic spine DERM: No exanthems or enanthems LYMPH: No cervical or inguinal lymphadenopathy NEURO: Oriented to time, place, person; pupils equally reactive to light, cranial nerves intact, nomotor or sensory deficits Lab/Radiology/Diagnostic Review: I reviewed the following laboratory and imaging result(s). Micro: Lab Results Component Value Date MICROBIOLOGY Preliminary Report: Culture results pending. (.) 11/13/2024 MICROBIOLOGY Preliminary Report: Culture results pending. (.) 11/13/2024 MICROBIOLOGY (.) 08/21/2024 Final Report: Greater than or equal to 100,000 colonies/mL of Klebsiella pneumoniae MICROBIOLOGY Final Report: No growth of pathogens. 03/26/2023 MICROBIOLOGY Final Report: No growth 12/12/2021 MICROBIOLOGY Final Report: No growth 12/07/2021 MICROBIOLOGY Final Report: No growth 12/07/2021 MICROBIOLOGY (.) 12/03/2021 Amended Report: Light growth of: Moraxella catarrhalis Beta lactamase Positive Susceptibility not performed on this isolate Very light growth normal jose MICROBIOLOGY Final Report: No growth 12/03/2021 MICROBIOLOGY Final Report: No growth 12/03/2021 MICROBIOLOGY (.) 12/03/2021 Final Report: 50,000 to 100,000 colonies/ml of Yeast Susceptibility not performed on this isolate Urinalysis: Resulted in the Past 12 Months 09/23/24 1313 COLORU Yellow CLARITYU Clear SPECGRAVU 1.026 PHURINE 5.5 PROTURQL Trace GLUCOSEUR Negative KETONESU Negative BLOODUR Negative NITRITEU Negative LEUKESTUR Negative Hematology/Chemistry: CBC: Lab Results Component Value Date WBC 5.87 11/13/2024 HGB 8.1 (L) 11/13/2024 HCT 26.3 (L) 11/13/2024 LABPLAT 192 11/13/2024 NEUTOPHILPCT 76.2 11/13/2024 LYMPHOPCT 14.2 11/13/2024 MONOPCT 7.1 11/13/2024 EOSPCT 1.5 11/13/2024 CMP: Lab Results Component Value Date SODIUM 139 11/13/2024 POTASSIUM 3.9 11/13/2024 CHLORIDE 105 11/13/2024 CO2 29 11/13/2024 ANIONGAP 5 11/13/2024 GLUCOSE 98 11/13/2024 BUNSER 14 11/13/2024 CREATININE 1.40 (H) 11/13/2024 CALCIUM 9.6 11/13/2024 ALBUMIN 4.0 11/13/2024 ALKPHOS 104 11/13/2024 ALT 10 11/13/2024 AST 18 11/13/2024 BILITOT 0.2 11/13/2024 Creatinine:Estimated Creatinine Clearance: 30.8 mL/min (A) (by C-G 65 yr and older- minimum SCr 0.8based on SCr of 1.4 mg/dL (H)). Resulted in the Past 12 Months 11/13/24 2235 11/13/24 1419 11/10/24 1338 CREATININE 1.40* 1.42* 1.24* Inflammatory Markers: Resulted in the Past 12 Months 11/13/242234 SEDRATE 82* CRP 17.0* Screening Results RPR:No results found for: LABRPR GC: No results found for: CTRACHOMATIS, NGONORRHOEAE Hepatitis Serologies: Lab Results Component Value Date HEPBSAG Nonreactive 05/28/2024 HEPBSAB Nonreactive 05/28/2024 HEPBCAB Nonreactive 05/28/2024 HEPCAB Nonreactive 08/17/2021 Virologic Testing: HIV Screen:No results found for: [id number] CD4:No results found for: CD4ABS, CD4PCT Common Virologic Results: No results found for: ZSA0TPZ, CD4ABS, CD4PCT, NUCLEOSRT, NONNUCRTMUT, PROTEASEMUT, INTEGRASEMUT, PPD, TOXOIGG Diagnostics: EKG:No results found for: VR, AR, PRIMSEC, QRSIMSEC, QTIMSEC, QT, PA, RA, TA, DIAG Echo:Results for orders placed in visit on 04/02/24 Transthoracic Echo (TTE) Complete W Doppler/CF Narrative [facility] [address], [place] [address] [address] [facility] [address], [place] [address] P:[phone] P:[phone] Echocardiographic Report Patient Name: KENDAL CISNEROS J : 1955 Study Date: 04/02/2024 11:40:57 AM Gender: F Tech: MICHELLE Location: [place] Ref Provider: ARIE,BEBE Height(Cm): 157 BSA: 1.75 Weight(Kg): 70.3 Heart Rate: 75 BP: 87 / 71 Quality: Good Order Provider: BEBE SARGENT PROCEDURES: Echocardiographic Report: Transthoracic echocardiogram with complete 2D, M-Mode, color Doppler examination and Definity contrast. With Strain Analysis. INDICATIONS: Z98.890 Other specified postprocedural states, Z95.2 Presence of prosthetic heart valve, and R06.02 Shortness of breath. Measurements: 2D/M Mode Doppler Measurement Value Normal Range Measurement Value Normal Range LVIDd 2D 3.44 [ 3.80 - 5.20 ] cm ONEL Vmax 2.22 [ 2.00 - 4.00 ] cm2 LVIDs 2D 2.43 [ 2.20 - 3.50 ] cm AV Mean PG 6 mmHg LVPWd 2D 1.17 [ 0.60 - 0.90 ] cm AV Peak Jenaro 1.79 [ 1.00 - 1.70 ] m/s IVSd 2D 1.13 [ 0.60 - 0.90 ] cm AV Peak PG 13 mmHg LA Volume Index 28 [ 16 - 34 ] cc/m2 AV VTI 30.82 cm LVOT Diam 2.04 [ 1.70 - 2.10 ] cm LVOT Peak Jenaro 1.01 [ 0.70 - 1.10 ] m/s LVOT VTI 19.19 cm MV E Peak Jenaro 1.22 [ 0.60 - 1.30 ] m/s MV A Peak Jenaro 1.31 [ 1.00 - 1.20 ] m/s MVA PHT 2.64 [ 2.00 - 4.00 ] cm2 MV Decel Time 259 [ 104 - 258 ] msec TR Peak Jenaro 2.26 [ 1.00 - 2.80 ] m/s TR Peak PG 20 mmHg Lateral E` 0.07 [ 0.10 - 0.15 ] m/s E` 0.07 m/s E/E` 17 Measurement Value Normal Range Measurement Value Normal Range 2D/M Mode Doppler - FINDINGS: Interpretation Site: Exam was interpreted at [facility]. Left Ventricle: Normal left ventricular size. Definity contrast agent used to visually enhance endocardial wall motion and contractility. Lot Number: [id number]. Mild concentric left ventricular hypertrophy. Normal global left ventricular systolic function. Diastolic dysfunction is present. Increased left heart filling pressures based on elevated E/E`. Ejection fraction is visually estimated at 65-70 %. Right Ventricle: Normal right ventricular size. Normal right ventricular systolic function. Left Atrium: Left atrial size is within upper limits of normal. Right Atrium: The right atrium is normal in size. Atrial Septum: The atrial septum is not well visualized. Mitral Valve: Annular region thickened with prior annuloplasty. Aortic Valve: Aortic valve not well visualized. Peak Velocity of 1.80 m/s. Mean gradient of 6.0 mmHg. Gradients normal for valve type and size. Tricuspid Valve: Normal appearance of the tricuspid valve. Estimated peak RVSP is 28 mmHg. Moderate tricuspid regurgitation. Pulmonic Valve: Pulmonic valve not well visualized. Pericardium: Trivial pericardial effusion. Aorta: Normal aortic root. IVC: Normal size and normal respiratory collapse consistent with normal right atrial pressure (<5 mmHg). CONCLUSIONS: Suboptimal image quality, echo contrast was used. Normal left ventricular size. Mild concentric left ventricular hypertrophy. Normal global left ventricular systolic function. Diastolic dysfunction is present. Increased left heart filling pressures based on elevated E/E`. Ejection fraction about 65-70 %. Normal RV size and systolic function. Pacemaker lead noted in RV/RA. Annular region thickened with prior annuloplasty. No significant residual MR. Aortic valve prosthesis not well visualized. Peak Velocity of 1.80 m/s. Mean gradient of 6.0 mmHg. DVI 0.56. Gradients normal for valve type and size. RVSP 28 mmHg. Moderate tricuspid regurgitation. Electronically Signed By: Eric Rivera MD, [facility] 2024-04-02 15:51:24 CDT Imaging: XR Chest PA Lateral 2 Views Result Date: 11/13/2024 Comparison 11/13/2023. Unchanged median sternotomy wires, mitral valve repair, aortic valve, and left pectoral pacemaker device with lead tips terminating over right atrium, coronary vein, and right ventricular apex. Right upper quadrant surgical clips and upper lumbar spine vertebral augmentation also noted. There is persistent moderate elevation of the left hemidiaphragm with associated subsegmental atelectasis. Infiltration of the right hemidiaphragm is also present. No pneumothorax, pleuraleffusion, or focal pneumonic consolidation. Cardiomediastinal contours are unchanged. Compression deformity of the lower thoracic spine is better evaluated on recent outside CT examination, but new [facility] CT 10/17/2022. Electronically signed by: Gilmer Loyd M.D. Neuro CT Outside Consult Result Date: 11/13/2024 New osteolysis, cortical irregularities, subcortical sclerosis and distention of the intervertebraldisc at T10-T11 with mild prominent prevertebral soft tissues, concerning of discitis osteophyte complex. MRI evaluation is recommended as clinically indicated. The findings, conclusions and recommendations within this report do not replace the initial findings, conclusions and recommendations made at the facility where the study was performed based upon the imaging and clinical condition at thattime. Comparison with the prior report and clinical history is necessary. The provided images may or may not represent the [place] source data set and thus may contain changes that may lower the accuracy of this second-opinion interpretation. Electronically signed by: Valdemar Mcdowell MD Neuro CT Outside Reference Result Date: 11/13/2024 These images are for Reference purposes only and have not been reviewed by [facility]. There will be no report generated by a [facility]iologist. XR Chest PA Lateral 2 Views Result Date: 11/13/2024 Comparison 11/13/2023. Unchanged median sternotomy wires, mitral valve repair, aortic valve, and left pectoral pacemaker device with lead tips terminating over right atrium, coronary vein, and right ventricular apex. Right upper quadrant surgical clips and upper lumbar spine vertebral augmentation also noted. There is persistent moderate elevation of the left hemidiaphragm with associated subsegmental atelectasis. Infiltration of the right hemidiaphragm is also present. No pneumothorax, pleuraleffusion, or focal pneumonic consolidation. Cardiomediastinal contours are unchanged. Compression deformity of the lower thoracic spine is better evaluated on recent outside CT examination, but new fr om CT 10/17/2022. Electronically signed by: Gilmer Loyd M.D. Neuro CT Outside Consult Result Date: 11/13/2024 New osteolysis, cortical irregularities, subcortical sclerosis and distention of the intervertebraldisc at T10-T11 with mild prominent prevertebral soft tissues, concerning of discitis osteophyte complex. MRI evaluation is recommended as clinically indicated. The findings, conclusions and recommendations within this report do not replace the initial findings, conclusions and recommendations made at the facility where the study was performed based upon the imaging and clinical condition at thattime. Comparison with the prior report and clinical history is necessary. The provided images may or may not represent the [place] source data set and thus may contain changes that may lower the accuracy of this second-opinion interpretation. Electronically signed by: Valdemar Mcdowell MD Neuro CT Outside Reference Result Date: 11/13/2024 These images are for Reference purposes only and have not been reviewed by [facility]. There will be no report generated by a [facility]iologist. Assessment/Plan Bacteremia due to Enterococcus Assessment & Plan The patient is a 69 y.o. female with PMH of CAD s/p CABG, AVR 2018, PPM 2015, HTN, Afib, mitral regurg, CHF, CKD, HLD, L1 compression fracture s/p kyphoplasty, who presented with concern for thoracicOM. Patient has chronic intermittent mid thoracic back pain that worsened in Aug 2024, associated with generalized weakness, night sweats, weight loss. No abdominal pain, GI or urinary symptoms. She was initially evaluated at OSH and PCP who suspected kidney stone. Ucx 08/21 grew Klebsiella pneumoniae and was treated for possible UTI with cipro for 7 days without improvement of pain. CT AP 08/22 was performed which was unremarkable. Given persistent and worsening pain she was then seen by NSGY on11/13 and review of OSH CT T/L spine wo contrast 11/10 showed new osteolysis, cortical irregularities,subcortical sclerosis and distension of the intervertebral disc at T10-11 with mild prominent prevertebral soft tissues, concerning for discitis osteophyte complex. She was recommended to present to the ED. In the ED she was afebrile and HDS. Labs without leukocytosis, ESR 82 and CRP 17. Bcx on 11/13 growing E faecalis. She was started on ampicillin and ceftriaxone. NSGY consulted and recommended MRIspine and IR biopsy. Pending MRI spine. TTE 11/13 showed MV repair with annuloplasty ring, mechanicalAV, wire noted in R heart. Patient with E faecalis BSI and concern for metastatic site of infection with possible thoracic spine OM. No evidence of intraabdominal infection due to lack of symptoms and prior negative imaging. Given AVR and PPM there is concern for associated endocarditis and PPM infection that would need to be further evaluated. Recommendations: - continue ampicillin 2g q6h - increase ceftriaxone 2g q12h for synergy - repeat daily blood cultures until negative for 48h - please obtain NEVAEH to further evaluate PPM leads and MVR/AVR - will follow MRI spine results - ID to follow Today, I am treating the patient for bacteremia and spine osteomyelitis which can cause endocarditis, sepsis, in the short-term future in the absence of appropriate treatment, as described in the note., Reviewed notes by medicine, NSGY, EP to determine appropriate plan of care as in the note., Estimated Creatinine Clearance: 30.8 mL/min (A) (by C-G 65 yr and older- minimum SCr 0.8 based on SCr of 1.4 mg/dL (H)). - reviewed; antibiotics recommended above are dosed accordingly., and The patient is being intensively monitored for antimicrobial toxicity from ampicillin and ceftriaxone with the following tests: CBC and CMP. * Emma Crouch, BOX PRINTER - 11/14/2024 9:45 AM CDTAssociated Order(s): IP CONSULT TO ELECTROPHYSIOLOGY Electrophysiology Consult Service Requesting Consult: Medicine Reason for Consult: Possible ppm removal in s/o bacteremia; MRI risk stratification of implanted cardiac device Primary Device Clinician: Dr. Dee History of Present Illness: Kendal Cisneros is a 69 y.o. female with history of CAD s/p 1v CABG 2021, redo mechanical AVR 2021, bioMVR 2021 ICM, HFrecEF s/p biventricular pacemaker, pulmonary HTN, afib on warfarin, CKD, HLD, and tobacco use that presents with acute worsening of back pain since August 2024. She was seen by outpatient neurosurgery. CT imaging with new osteolysis, cortical irregularities, subcortical sclerosis and distention of the intervertebral disc at T10-T11 with mild prominent prevertebral soft tissues, concerning of discitis osteophyte complex. She was advised by NSGY to go to the ED for admission given concern for discitis/osteomyelitis. Blood cultures growing E. Faecalis. MSK IR consulted for bone biopsy. Neurosurgery recommended total spine MRI. Her device is MRI conditional. PMHx: She has a past medical history of Age-related osteoporosis without current pathological fracture (09/01/2021), Anemia, Arthritis, Broken heart syndrome, Cancer (HCC), Depression, Depression, Fatigue, GERD (gastroesophageal reflux disease) (12/06/2011), Heart disease, Hyperlipidemia (10/26/2011), Hypertension, LBBB (left bundle branch block) (11/18/2012), Nausea and vomiting (07/25/2022), Osteoarthritis, Osteopenia (01/29/2015), Osteoporosis, Paroxysmal atrial fibrillation (HCC) (05/27/2019), Pulmonary HTN (HCC) (11/18/2012), Severe mitral regurgitation (11/18/2012), Shortness of breath,and Systolic heart failure (HCC) (11/18/2012). She has no past medical history of Malignant hyperthermia, Motion sickness, or Sleep apnea. PSHx: She has a past surgical history that includes Cholecystectomy (2017); Anterior cruciate ligament repair (Right, 2002); Kyphoplasty (2021); Aortic valvuloplasty (2018); Hysterectomy (1985); Skincancer excision; Insert / replace / remove pacemaker (2015); Aortic valve replacement (2018); and Cardiac valve replacement (2018). PFHx: She family history includes Alzheimer's disease (age of onset: 65) in her maternal grandmother; Heart attack in her maternal grandfather; Heart disease in her father and mother; Heart failure in her father and mother; Hypertension in her father and mother; No Known Problems in her paternal grandfather and paternal grandmother; heart surgery in her father. SH: She reports that she quit smoking about 2 years ago. Her smoking use included cigarettes. She started smoking about 51 years ago. She has never used smokeless tobacco. She reports current drug use. Drug: Medical marijuana. Patient denies consuming alcoholic drinks. Allergies: She is allergic to atropine, sulfites, hydrocodone-acetaminophen, and sulfa (sulfonamideantibiotics). Review of Systems Review of Systems Respiratory: Positive for shortness of breath. Negative for cough. Cardiovascular: Negative for chest pain, palpitations and leg swelling. Gastrointestinal: Positive for nausea. Negative for vomiting. Neurological: Negative for dizziness and loss of consciousness. Psychiatric/Behavioral: + claustrophobia All other systems reviewed and are negative. Physical Examination General: comfortable, NAD Chest: Clear to auscultation bilaterally CV: normal S1 and S2, regular, + click Abd: soft NT, ND, bowel sounds present Extremity: no edema, warm Derm: Lt chest device site well healed Labs Recent Labs Lab Units 11/13/24 2235 11/13/24 1726 11/13/24 1419 11/10/24 1446 11/10/24 1342 11/10/24 1338 WBC K/cumm 5.87 6.04 6.88 5.85 -- 5.74 HEMOGLOBIN g/dL 8.1* 8.5* 8.8* 9.1* -- 9.0* PLATELETS K/cumm 192 184 204 225 -- 227 SODIUM mmol/L 139 -- 139 -- -- 138 POTASSIUM PLASMA mmol/L 3.9 -- 3.9 -- -- 4.3 CHLORIDE mmol/L 105 -- 102 -- -- 101 CO2 mmol/L 29 -- 27 -- -- 27 CREATININE mg/dL 1.40* -- 1.42* -- -- 1.24* GLUCOSE mg/dL 98 -- 93 -- -- 84 AST Units/L -- -- 18 -- -- 25 ALT Units/L -- -- 10 -- -- 7 INR -- 2.30* -- 2.22* 2.25* -- CALCIUM mg/dL 9.6 -- 9.5 -- -- 9.6 Medications Scheduled Meds:acetaminophen, 1,000 mg, oral, Q6H GLORY ampicillin, 2,000 mg, intravenous, Q6H GLORY [Held by Provider] carvediloL, 12.5 mg, oral, BID with meals (bkfst, dinner) cefTRIAXone, 2,000 mg, intravenous, Q24H GLORY famotidine, 40 mg, oral, Daily fluticasone propionate, 2 spray, each nostril, Daily mofsjqstojw-socbpeuna-ladtlgjp, 1 puff, inhalation, Daily methocarbamoL, 500 mg, oral, TID rosuvastatin, 40 mg, oral, Daily sertraline, 100 mg, oral, Daily sodium chloride 0.9%, 0.5-20 mL, intra-catheter, Q8H GLORY [Held by Provider] spironolactone, 25 mg, oral, Daily traZODone, 100 mg, oral, Nightly Continuous Infusions:heparin, 0-33 Units/kg/hr, Last Rate: 15 Units/kg/hr (11/14/24 0538) PRN Meds:. albuterol HFA sodium chloride 0.9% heparin OR heparin HYDROmorphone ondansetron ODT OR ondansetron oxyCODONE perflutren lipid (DEFINITY) 1.5 mL in sodium chloride 0.9% 10 mL syringe polyethylene glycol sodium chloride 0.9% Cardiac Studies Last TTE 04/02/2024 Suboptimal image quality, echo contrast was used. Normal left ventricular size. Mild concentric left ventricular hypertrophy. Normal global left ventricular systolic function. Diastolic dysfunction is present. Increased left heart filling pressures based on elevated E/E`. Ejection fraction about 65-70 %.Normal RV size and systolic function. Pacemaker lead noted in RV/RA. Annular region thickened with prior annuloplasty. No significant residual MR. Aortic valve prosthesis not well visualized. Peak Velocity of 1.80 m/s. Mean gradient of 6.0 mmHg. DVI 0.56. Gradients normal for valve type and size. RVSP 28 mmHg. Moderate tricuspid regurgitation. Device Interrogation Generator: [employer] Quadra Allure MP [id number] ICT CUSTOMER SUPPORT OFFICER-P implanted 09.26.2023 Right atrial lead: Castrejon Tendril STS [id number] implanted 08.16.2015; pacing 91% Right ventricular:[employer] Tendril STS [id number] implanted 08.16.2015; pacing >99% Left ventricular: Castrejon Quartet [id number] implanted 08.16.2015; pacing >99% Lead impedance, sensing and pacing capture thresholds are stable Battery longevity: 5.4-5.9 years High Rate Episodes: none Underlying rhythm: NSR 60s Imaging Results for orders placed during the hospital encounter of 11/13/24 XR Chest PA Lateral 2 Views Narrative EXAMINATION: 2 view chest radiograph Impression Comparison 11/13/2023. Unchanged median sternotomy wires, mitral valve repair, aortic valve, and left pectoral pacemaker device with lead tips terminating over right atrium, coronary vein, and right ventricular apex. Right upper quadrant surgical clips and upper lumbar spine vertebral augmentation also noted. There is persistent moderate elevation of the left hemidiaphragm with associated subsegmental atelectasis. Infiltration of the right hemidiaphragm is also present. No pneumothorax, pleural effusion, or focal pneumonic consolidation. Cardiomediastinal contours are unchanged. Compression deformity of the lower thoracic spine is better evaluated on recent outside CT examination, but new from CT 10/17/2022. Electronically signed by: Gilmer Loyd M.D. Assessment/Plan Ms. Cisneros is a 69y/o F with history of CAD s/p 1v CABG 2021, redo mechanical AVR 2021, bioMVR 2021 ICM, HFrecEF s/p biventricular pacemaker, pulmonary HTN, afib on warfarin, CKD, HLD, and tobacco usethat presents with acute worsening of back pain since August 2024. She was admitted for a total spine MRI, and also found to have E. Faecalis bacteremia. # Bacteremia/PPM extraction -device interrogation performed -not dependent, underlying rhythm NSR 60s -please consult ID for device infection management -if ID recommends extraction, please consult CTS -we will follow for reimplant planning following extraction. # Presence of Implanted Cardiac Device -Device interrogation performed (see interrogation in chart) -CXR performed and reviewed with no evidence of epicardial leads, abandoned leads, damaged leads, or leads with incompatible extenders or adaptors -Leads are > 6 weeks old -Device battery is not at [place] -Device is an MRI conditional system and patient is assessed at STANDARD RISK -Will notify MRI of risk stratification and timing of scan will be determined by the radiology department; EP will be available by phone at [phone]. -pt is claustrophobic and will require premedication prior to MRI Emma Crouch NP on 11/14/2024 at 9:46 AM Emma Crouch MSN, RN, G[employer] PROCESSING PLANT OPERATOR- Nurse Practitioner, [facility] Cosigned by Sameer La MD PhD at 11/15/2024 1:50 PM CDT Associated attestation - Sameer La MD PhD - 11/15/2024 1:50 PM CDT Attending Documentation I personally interviewed and examined the patient on 14 Nov 2024 and reviewed the case with the non-physician provider. I agree with the assessment and plan as outlined in the note. History: 69 year old with CAD, CABG, ICT CUSTOMER SUPPORT OFFICER-P, admitted with back pain. Found to be bacteremic in addition to possibly discitis/osteomyelitis Physical Exam: Vital signs reviewed. No apparent distress. Lungs: clear. Cardiac: Regular rhythm without S3 or murmur. JVP not elevated. Abd: soft, NT. Ext: edema. Data: I have reviewed the pertinent laboratory and imaging test results. Castrejon Device interrogation. Standard risk for MRI Assessment and Plan: Bacteremia Anticipate device extraction will be necessary. Supplementary Attestation Today, I am treating the patient for rhythm device infection which is in severe exacerbation, progression, or experiencing treatment side effects as evidenced by bacteremia, as described in the note. Independently interpreted test device interrogation which shows the Castrejon device is MRI conditional. Most recent creatinine was 1.4 which was used to continue or change medication dosing Discussed the risk/benefit of device extraction procedure/surgery with the patient as described in the note. Sameer La MD PhD 11/15/2024 1:44 PM * Dennys Cummings MD - 11/13/2024 1:54 PM CDTAssociated Order(s): IP CONSULT TO NEUROSURGERY Neurosurgery Consultation Patient: Kendal Cisneros CSN: [id number] : 1955 Admission date: 11/13/2024 Length of stay (days): 0 Consulting: Dr. Sarabia Requesting provider: ED provider Reason for consultation: Concern for T10-T11 osteomyelitis diskitis History of present illness: Patient has a history of CAD status post CABG, status post mitral valve repair, pacemaker placement, prior smoking history, ischemic cardiomyopathy, atrial fibrillation on Coumadin, presents for evaluation of possible T10-11 osteomyelitis diskitis. Patient was recently evaluated by our service [facility]. Briefly, patient reported that she has had a history of mild back pain off and on which suddenly got worse at the end of August or September. She reported pain in the mid part of the thoracic spine without radiation into the upper or lower extremities or anteriorly into the chest. Hurts with any kind of changing positions, relieved somewhat by lying flat but when changing positions while sleeping she will have continued back pain. Pain is 5-6/10 typically, 10/10 at worst. She describes 100% back pain with no leg pain. She has no numbness or tingling in the legs, but will occasionally feel like her bilateral hands are going to sl eep. This has been happening over the course of the last year. She does have some difficulty with gait and balance and has to use a cane when walking up and downstairs. She also states she has a history of osteomyelitis most recently in the left foot. When this pain started, she was evaluated by her primary care physician who suspected she may have a kidney stone, subsequent workup showed the possibility of urinary tract infection, she received antibiotics she believes ciprofloxacin for about 7 days. She does not recall whether or not she was onantibiotics for previous episodes of osteomyelitis. Notably, has a history of a L1 compression fracture status post kyphoplasty with good relief of pain postprocedurally. Given the concern for infection of the thoracic spine in the site where patient complain of tenderness to palpation, a thoracic spine CT was obtained that revealed a new osteolysis, cortical irregularities, subcortical sclerosisand distention of the intervertebral disc at T10-T11, concerning for diskitis of the osteophyte complex. We recommended to the patient to present in ED at [facility] for further workup and management. Review of systems: A full review of systems was completed and was negative unless otherwise stated in the HPI. Past medical/surgical history: Past Medical History: Diagnosis Date Age-related osteoporosis without current pathological fracture 09/01/2021 Anemia Arthritis Broken heart syndrome Cancer (HCC) skin cancer Depression Depression Fatigue GERD (gastroesophageal reflux disease) 12/06/2011 Heart disease Hyperlipidemia 10/26/2011 Raz wants her on Lipitor 40mg qhs Last Assessment & Plan: Status: Stable Interim History: No myalgias. Patient on Lipitor 40 mg qd. Recheck in 3 months labs. Hypertension LBBB (left bundle branch block) 11/18/2012 Raz Villegas at [facility] paper twister tender. Nausea and vomiting 07/25/2022 Osteoarthritis Osteopenia 01/29/2015 DEXA 01/2015 Osteoporosis Paroxysmal atrial fibrillation (HCC) 05/27/2019 Last Assessment & Plan: On Eliquis Pulmonary HTN ([facility]) 11/18/2012 Mckenna documentation seen on ECHO. Severe mitral regurgitation 11/18/2012 Emilie at [facility] paper twister tender. Message from [employer] sent at 11/15/2018 4:29 PM [facility] ----- De Dr. Farnsworth. Dieter CHOW regarding my hospital visit, I have an appointment with Dr. Butler???s at [facility] on This Sunday for my TAVR work up. Last Assessment & Plan: Formatting of this note might be different from the [place] Shortness of breath Systolic heart failure ([facility]) 11/18/2012 Mckenna stage III Coreg Lasix and Lisinopril started in hospital in November. Dr. Phan paper twister tender. Last Assessment & Plan: Status: Stable Interim History: No cp's, sob, PTE or calf pains. No weight gains. Continue with Cardiology. Allergies: Allergies Allergen Reactions Atropine Hypotension SEVERE hypotension Sulfites Nausea And Vomiting Hydrocodone-Acetaminophen Itching Sulfa (Sulfonamide Antibiotics) Nausea only Medications: HOME MEDICATIONS : albuterol HFA (Proventil HFA) 90 mcg/actuation inhaler aspirin 81 mg enteric coated tablet Breztri Aerosphere 160-9-4.8 mcg/actuation inhaler carvediloL (COREG) 12.5 mg tablet cholecalciferol (VITAMIN D-3) 2000 unit tablet cyclobenzaprine (FLEXERIL) 5 mg tablet diphenhydrAMINE 25 mg capsule famotidine (PEPCID) 40 mg tablet ferrous sulfate 325 mg (65 mg of elemental iron) tablet fluticasone propionate (FLONASE) 50 mcg/actuation nasal spray furosemide (LASIX) 20 mg tablet hydrocortisone (ANUSOL-HC) 1 % cream with perineal applicator ondansetron ODT (ZOFRAN-ODT) 4 mg disintegrating tablet rosuvastatin (CRESTOR) 40 mg tablet sertraline (ZOLOFT) 100 mg tablet spironolactone (ALDACTONE) 25 mg tablet tamsulosin (FLOMAX) 0.4 mg extended release capsule traZODone (DESYREL) 50 mg tablet warfarin (COUMADIN) 3 mg tablet Social history: Patient's sales person is David Cisneros, . Family history: Reviewed and noncontributory. Physical Examination: Neuro: Opens eyes spont Oriented x3, Regards, Follows Commands PERRL, EOMI, Face Symmetric, Tongue Midline RUE 11/10 D/B/WE/T/HG/IH LUE 11/10 D/B/WE/T/HG/IH No pronator drift RLE 11/10 IP/Q/HS/TA/EHL/GN LLE 11/10 IP/Q/HS/TA/EHL/GN Sensation intact and symmetric in all extremities to light touch Manzanares's Sign Negative, no ankle clonus Stands without assistance, steady ambulation, able to tandem Tenderness to palpation of the midline mid-T spine Psych: normal mood Constitutional: in acute pain HENT: normocephalic Cardiovascular: normal rate Pulmonary: normal respiratory effort Abdominal: soft Musculoskeletal: normal range of motion Imaging and Labs: Lumbar spine CT wo 11/13/24: New osteolysis, cortical irregularities, subcortical sclerosis and distention of the intervertebral disc at T10-T11 with mild prominent prevertebral soft tissues, concerning of discitis osteophyte complex. Assessment and Plan Kendal Cisneros is a 69 y.o. female who presents with concern for T10-T11 osteomyelitis diskitis. Given clinical presentation, neurological examination findings, we recommend further workup as follows: Total spine spine MRI wwo if pacemaker is MRI compatible MSK consult for biopsy/aspiration for cultures/pathology Consider ID consult or Oncology consult pending labs and biopsy/aspiration results Blood cultures CRP and ESR This plan was discussed with the chief resident and attending electronic tech. For any questions regarding care of this patient, please page Neurosurgery at [phone]. Dennys Galeas MD Neurosurgery Resident, PGY3 Cosigned by Lindsey Sarabia MD at 11/14/2024 6:45 PM CDT Associated attestation - Lindsey Sarabia MD - 11/14/2024 6:45 PM CDT I have seen and examined the patient on 11/14/24. I agree with the findings and plan of care as documented in the resident's/fellow's note.. Pending IR biopsy and MRI but unlikely to be surgical. Lindsey Sarabia MD documented in this encounter Nursing Notes * Colin Noel RN - 12/02/2024 1:42 PM CDT Patient discharge orders placed. Discharge instructions verbally discussed with patient. Patient verbally stated understanding, all questions/concerns addressed. One copy signed and placed in chart, another copy sent with patient. PIV removed.Pt leaving with PICC R upper arm to complete her abx at [facility]). All belongings went through with patient and returned. No home medications to return. Patient sent to [facility] via EMS. Report given to MARIA DE JESUS Dunbar over the phone * Madhuri Acosta RN - 12/01/2024 9:20 AM CDT linn Capellan came into room after patient pulled bathroom emergency cord. Patient found on all 4s attempting to stand. Patient endorses hitting right side of head and left knee on floor. Patient states she did not loose consciousness and that she fell when she was trying to open her soap. Patient able to stand and walked back to bed with Cyndi and MARIA DE JESUS Govea. Provider Karen called and came to bedside. Urgent CT ordered for head and total spine and patient taken to CT scanner with MD Karen Beth and MARIA DE JESUS Dhaliwal. No X ray ordered at time for left leg. Patient able to move leg and does not endorse pain. Say checks q 6 ordered for patient. Patient alert and awake at this time. Bed alarm added to patient's bed and pt understands she will have to wear non- skid socks anytime she is up. * Emma Smallwood RN - 11/28/2024 3:22 PM CDT Assumed care of patient at 1500. Agree with previously charted assessment unless otherwise noted. * Barbi Avitia RN - 11/27/2024 5:59 AM CDT aPTT 52 (therapeutic). No changes made to Bivalrudin rate, per SEP orders. aPTT to be drawn in AM. * Su Almeida RN - 11/26/2024 1:16 PM CDT aPTT 53. No changes made per MAR orders. 2 consecutive therapeutic aPTT's. aPTT to be drawn in AM. * Su Almeida RN - 11/26/2024 10:05 AM CDT aPTT 50, no changes made to hep gtt per MAR orders. * Su Almeida RN - 11/25/2024 8:58 AM CDT aPTT 92, no changes made per MAR orders * Elieser Zafar RN - 11/19/2024 4:00 PM CDT Patient is returning to [id number] by stretcher. Patient is alert and oriented to person, place, time, and situation. Vitals are stable. Patient is able to eat and drink with no complications. Report given to Colin PRETTY and chart was taken by transporter. documented in this encounter ED Notes * Tiffanie Grey MD - 11/13/2024 1:26 PM CDT HPI Chief Complaint Patient presents with Back Pain 69 year old female with PMHx of aortic stenosis s/p TAVR, CHF, a-fib on warfarin, CKD, presenting with mid back pain. This has caused her to have difficulty walking. Seen by NSGY today with concern for osteomyelitis so she was sent her for further imaging and evaluation. Denies fever, numbness, tingling, weakness, bowel/bladder incontinence. History provided by: Patient Patient History: Patient Active Problem List Diagnosis Date Noted Chronic midline thoracic back pain 11/13/2024 Acute on chronic heart failure with preserved ejection fraction (HCC) 05/28/2024 Chronic renal disease, stage IV (HCC) 04/22/2024 Atrial fibrillation (HCC) 10/23/2023 Abnormal PFTs (pulmonary function tests) 07/12/2023 Depression, recurrent 05/21/2023 Encounter for Medicare annual wellness exam 05/21/2023 Stage 3a chronic kidney disease (HCC) 12/24/2022 Nausea and vomiting 07/25/2022 At risk for amiodarone toxicity 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 07/21/2022 Insomnia due to medical condition 03/24/2022 Chronic heart failure with preserved ejection fraction (HCC) 03/16/2022 S/P CABG x 1 03/16/2022 S/P mitral valve repair 03/03/2022 buttermaker (current) use of anticoagulants 03/03/2022 Aftercare following surgery 03/02/2022 Hospital discharge follow-up 02/22/2022 Mobility impaired 02/22/2022 Open wound of lateral abdominal wall with complication 12/24/2021 Critical illness myopathy 12/20/2021 Status post mechanical aortic valve replacement 11/22/2021 Age-related osteoporosis without current pathological fracture 09/01/2021 H/O cardiomyopathy 08/08/2021 History of tobacco abuse 08/08/2021 Shortness of breath 08/08/2021 Coronary artery disease involving [place] coronary artery of [place] heart without angina pectoris 08/08/2021 Chronic anticoagulation 08/08/2021 Ankle swelling 02/16/2021 Acute urinary tract infection 12/16/2020 Dehydration 12/15/2020 Incomplete emptying of bladder 12/15/2020 Cardiac pacemaker in situ 08/04/2020 Smoker 08/03/2020 Smokers' cough (HCC) 07/30/2020 Osteoarthritis of right knee 06/11/2019 Arthritis of knee 06/10/2019 Anxiety 01/24/2019 Paroxysmal atrial fibrillation (HCC) 01/15/2019 Aortic valve replaced 11/14/2018 Spondylosis of lumbar region without myelopathy or radiculopathy 11/30/2015 Essential hypertension 10/20/2015 Status post biventricular pacemaker 10/20/2015 Osteopenia 01/29/2015 CHF (congestive heart failure), NYHA class III ([facility]) 12/25/2012 Pulmonary HTN ([facility]) 11/18/2012 Pulmonary nodule, left 11/18/2012 S/P cholecystectomy 11/18/2012 S/P hysterectomy with oophorectomy 11/18/2012 Chronic pain 12/06/2011 GERD (gastroesophageal reflux disease) 12/06/2011 Depression 10/26/2011 Mixed hyperlipidemia 10/26/2011 Past Medical History: Diagnosis Date Age-related osteoporosis without current pathological fracture 09/01/2021 Anemia Arthritis Broken heart syndrome Cancer ([facility]) skin cancer Depression Depression Fatigue GERD (gastroesophageal reflux disease) 12/06/2011 Heart disease Hyperlipidemia 10/26/2011 M[facility]enna wants her on Lipitor 40mg qhs Last Assessment & Plan: Status: Stable Interim History: No myalgias. Patient on Lipitor 40 mg qd. Recheck in 3 months labs. Hypertension LBBB (left bundle branch block) 11/18/2012 Raz Villegas at [facility] paper twister tender. Nausea and vomiting 07/25/2022 Osteoarthritis Osteopenia 01/29/2015 DEXA 01/2015 Osteoporosis Paroxysmal atrial fibrillation (HCC) 05/27/2019 Last Assessment & Plan: On Eliquis Pulmonary HTN (HCC) 11/18/2012 [facility] documentation seen on ECHO. Severe mitral regurgitation 11/18/2012 Emilie at [facility] paper twister tender. Message from [employer] sent at 11/15/2018 4:29 PM [facility] ----- De Dr. Farnsworth. Just YARITZA regarding my hospital visit, I have an appointment with Dr. Butler???s at [facility] on This Sunday for my TAVR work up. Last Assessment & Plan: Formatting of this note might be different from the [place] Shortness of breath Systolic heart failure (HCC) 11/18/2012 [facility] stage III Coreg Lasix and Lisinopril started in hospital in November. Dr. Phan paper twister tender. Last Assessment & Plan: Status: Stable Interim History: No cp's, sob, PTE or calf pains. No weight gains. Continue with Cardiology. Past Surgical History: Procedure Laterality Date ANTERIOR CRUCIATE LIGAMENT REPAIR Right 2003 AORTIC VALVE REPLACEMENT 2019 21mm Inspiris AORTIC VALVULOPLASTY 2019 CARDIAC VALVE REPLACEMENT 2019 CHOLECYSTECTOMY 2018 HYSTERECTOMY 1986 INSERT / REPLACE / REMOVE PACEMAKER 2016 original 2012 KYPHOPLASTY 2021 SKIN CANCER EXCISION Family History Problem Relation Age of Onset Heart disease Mother Heart failure Mother Hypertension Mother Alzheimer's disease Maternal Grandmother 65 No Known Problems Paternal Grandmother Heart disease Father Heart failure Father Hypertension Father Other (heart surgery) Father Heart attack Maternal Grandfather No Known Problems Paternal Grandfather Ovarian cancer Neg Hx Breast cancer Neg Hx Thyroid cancer Neg Hx Social History Tobacco Use Smoking status: Former Current packs/day: 0.00 Types: Cigarettes Start date: 1973 Quit date: 11/22/2021 Years since quittin.9 Smokeless tobacco: Never Tobacco comments: now down to 5 cigs/day Vaping Use Vaping status: Never Used Substance and Sexual Activity Alcohol use: Not on file Drug use: Yes Types: Medical marijuana Sexual activity: Not Currently Partners: Male control/protection: Post-menopausal Social History Social History Narrative Not on file Review of Systems Review of Systems All other systems reviewed and are negative. Physical Exam ED Triage Vitals Temp Pulse Resp BP SpO2 11/13/24 1244 11/13/24 1244 11/13/24 1244 11/13/24 1244 11/13/24 1244 37.3 ??C (99.2 ??F) 73 18 110/71 94 % Temp src Heart Rate Source Patient Position BP Location FiO2 (%) 11/13/24 1244 11/13/24 1845 11/13/24 1845 11/13/24 1845 -- Oral Pulse Oximetry Sitting Right arm Height Height Method Weight Weight Method 11/13/24 1244 11/13/24 1244 11/13/24 1244 11/13/24 1244 1.575 m (5' 2) Stated 61.2 kg (135 lb) Stated Physical Exam Vitals reviewed. Constitutional: Appearance: Normal appearance. HENT: Head: Normocephalic and atraumatic. Eyes: Extraocular Movements: Extraocular movements intact. Conjunctiva/sclera: Conjunctivae normal. Cardiovascular: Rate and Rhythm: Normal rate and regular rhythm. Heart sounds: Normal heart sounds. Pulmonary: Effort: Pulmonary effort is normal. No respiratory distress. Breath sounds: Normal breath sounds. Abdominal: General: Abdomen is flat. Bowel sounds are normal. There is no distension. Palpations: Abdomen is soft. Tenderness: There is no abdominal tenderness. Musculoskeletal: General: Tenderness (thoracic spine) present. Normal range of motion. Cervical back: Normal range of motion. Skin: General: Skin is warm and dry. Neurological: General: No focal deficit present. Mental Status: She is alert and oriented to person, place, and time. Comments: 5/5 strength in all extremities, sensation intact Psychiatric: Mood and Affect: Mood normal. Behavior: Behavior normal. MDM Medical Decision Making 69 year old female with PMHx of aortic stenosis s/p TAVR, CHF, a-fib on warfarin, CKD, presenting with mid back pain. Seen by NSGY today with concern for osteomyelitis so she was sent her for furtherimaging and evaluation.On exam, pt has TTP of the thoracic spine. No neurologic deficits. Will order MRI and consult NSGY for abx recs. Anticipate admission as pt will need to be evaluated by EP for MRI. DDx: osteomyelitis, fracture, muscle strain Plan: CBC, CMP, blood cultures, NSGY consult Dispo: Admission Amount and/or Complexity of Data Reviewed Labs: ordered. Radiology: ordered. Risk Prescription drug management. Decision regarding hospitalization. Attending Summary of Care ED Course as of 11/13/241917 Time: 11/13 1334 Comment: IMPRESSION: New osteolysis, cortical irregularities, subcortical sclerosis and distention of the intervertebral disc at T10-T11 with mild prominent prevertebral soft tissues, concerning of discitis osteophyte complex. MRI evaluation is recommended as clinically indicated. The findings, conclusions and recommendations within this report do not replace the initial findings, conclusions and recommendations made at the facility where the study was performed based upon the imaging and clinical condition at that time. Comparison with the prior report and clinical history is necessary. The provided images may or may not represent the [place] source data set and thus may contain changes that may lower the accuracy of this second-opinion interpretation. By: Tiffanie Grey MD Time: 11/13 1340 Comment: Consult to NSGY placed By: Tiffanie Grey MD Time: 11/13 1347 Comment: 69yof with h/o AoStenosis p TAVR, Mstenosis p valve replacement, on warfarin for A-fib, sent by NSGY office as was there for T10-11 injury, c/f possible osteo on OSH imaging, sent for MRI ashas pacemaker. Some difficulty walking due to pain but no focal weakness. D/w NSGY. Plan for admission. By: Javier Bryant MD Time: 11/13 1401 Comment: Spoke with NSGY who advises to get MRI of the total spine. Hold off on abx at this time, pending cultures. Admission to medicine By: Tiffanie Grey MD Time: 11/13 1428 Comment: Pt care has been assumed by hospitalist BOX PRINTER Eliane Feng By: Tiffanie Grey MD Chronic midline thoracic back pain Tiffanie Grey MD Resident 11/13/241917 Cosigned by Javier Bryant MD at 11/18/2024 12:38 AM CDT Associated attestation - Javier Bryant MD - 11/18/2024 12:38 AM CDT I evaluated the patient on 11/13/2024 and agree with the history, exam, and plan as documented unlessotherwise noted. * Williams Matthew RN - 11/13/2024 12:40 PM CDT Pt to ED for 5/10 back pain at T10 & T11 x2 months, positional pain increases to 10/10. Came inat request of her neurosurgeon MD Flower with c/f osteo. Neurosurgery requesting MRI of C and T spine w/wo contrast. A&O x4, ambulatory with some difficulty 2/2 pain, VSS. Significant PMHx. documented in this encounter Miscellaneous Notes * Assessment & Plan Note - Lia Hernandez MD - 12/02/2024 1:05 PM CDTAssociated Problem(s): Chronic midline thoracic back pain # C/f thoracic discitis / osteomyelitis Chronic back pain since 08/2024. Has had multiple CT scans for workup. Most recent CT thoracic spineshowed c/f discitis osteophyte complex at T10-11, saw NSGY as o/p, told to come to ED for further workup. Endorsing night sweats, 20 lb weight loss, intermittent BUE tingling. No incontinence. No IVDU. Hx of kyphoplasty few years ago to d/t L compression fracture. Hx of OM in foot / leg many years ago iso trauma. ESR/CRP high here. MRI total spine done and [facility] IR bx on 11/17 with negative cultures. 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 Transitioned to Lovenox on 11/29 with NEGATIVE MELODY. Warfarin restarted on 11/26 with bridging ongoing. Lovenox d/c on 11/22, IRN at goal 2.09 (goal 2-3) - Pain management with GLORY: tylenol 1g q6, robaxin 750mg q8, gabapentin 300mg TID (added on 11/22),Lidocaine patch; PRN: oxy 7.5mg q4 and dilaudid 0.2 IV q2 to breakthrough pain. - Bone pathology (11/17): positive for possible osteomyelitis or degenerative disease, ID recommended 6 weeks of Cef and Amp and further PO suppressive therapy for a year - Pending SNF placement - anticipate 12/02, EMS at 13:30 - ESR/CRP 3 weeks (12/05) and 6 weeks(12/26) into treatment * Assessment & Plan Note - Lia Hernandez MD - 12/02/2024 1:05 PM CDTAssociated Problem(s): Bacteremia due to Enterococcus #Vegetation on pacemaker leads 1/2 BCx + E. faecalis on 11/13. Unclear source. 20lb weight loss over the last few months.Cardiac surgeon that follow patient was contacted (Dr. Adal Moore) and agree with the plan. TTE on 11/14 lVEF 67% no thrombus, mechanical mitral valve w/o dysfunction. NEVAEH completed on 11/19, possible vegetation on pacemaker leads. Consulted CTS and pacemaker removal on 11/25 at 14:50 without complications. - Bcx negative on 11/15 and 11/16 - Started Amp (11/14- until 11/25) and Ceftriaxone (11/14 - until 12/26) - [facility] Bx with IR on 11/17, culture partial negative, Bx: osteomyelitis - Pacemaker removed on 11/25, pending cultures - ID recommended 6 weeks of Cef and Amp and further suppressive therapy for a year - Able to resume coreg on 12/01, monitor for hypotension * Assessment & Plan Note - Lia Hernandez MD - 12/02/2024 1:05 PM CDTAssociated Problem(s): Osteomyelitis of thoracic spine (HCC) See above * Assessment & Plan Note - Lia Hernandez MD - 12/02/2024 1:05 PM CDTAssociated Problem(s): HIT suspected - tested NEGATIVE Matias found with decrease of > 30% in her baseline platelets (204 from admission to 140 last lab) and down trending HB with no apparent bleeding (8.8 from adcmission to 6.6 last lab). HI T Ab positive but MELODY negative, Ruled out HIT. - Heparin (11/11 - 11/25) -> Bival (11/25-) -> Lovenox (11/29-12/02) - Started bridge to coumadin on 11/26, completed on 12/02. * Assessment & Plan Note - Lia Hernandez MD - 12/02/2024 1:05 PM CDTAssociated Problem(s): Pacemaker infection See above - Removal of pacemaker on 11/25 - Continue antibiotic, followed by ID - Plan discharge considering antibiotic therapy for 6 weeks and suppression for a year - EKG repeated more * Assessment & Plan Note - Lia Hernandez MD - 12/02/2024 1:05 PM CDTAssociated Problem(s): Fall Patient had a fall on 12/01 while taking a shower at 9:20. On coumadin 4mg/daily and full dose of lovenox. Presence of hematoma em right forehead.No loss of consciousness, nausea or vomit after event. Patient reports she lost her balance - 12/01 CT head and total spine - no acute intracranial processes - Repeat CT at 12/01 night no acute intracranial processes * Plan of Care - Tara Briones RN - 12/02/2024 3:10 AM CDT Goals: Clinical Goals for the Shift: VSS; monitor neuro checks & pain; pt remains free from falls/injuries; promote comfort and rest Long-Term Patient Centered Goal for Treatment: dc safely Summary: No acute events throughout my shift. - VSS throughout the night. - AO4 however pt seems off than previous nights, more confused and slurs her words or say incomprehensible things at times when answering questions. Pt seems to need more time to respond than before. was notified and aware, will continue to monitor pt and continue Q6 neuro assessments. - Patient denies any pain at this time. No complaints of nausea, headaches, vision changes, etc. - Continues to rest well on RA. - Patient was off the floor for CT. Returned vitally stable. Problem: Lack of Knowledge Goal: Ability to develop a pain control plan will improve Outcome: Progressing Problem: Medication Goal: Satisfaction with pain management medication regimen will improve Outcome: Progressing Problem: Sensory Goal: Ability to identify factors that increase pain levels will improve while working to decrease the patient's pain levels Outcome: Progressing Problem: Coping Goal: Ability to cope will improve Outcome: Progressing Problem: Health Behavior Goal: Identification of resources available to assist in meeting health care needs will improve Outcome: Progressing Problem: Discharge Planning Goal: Understanding discharge needs will improve Outcome: Progressing Problem: Fall Risk Goal: Ability to state ways to decrease the risk of falls will improve Outcome: Progressing Goal: Will remain free from falls Outcome: Progressing Goal: Will remain free from injury from falls Outcome: Progressing * Plan of Care - Jeferson Langley RN - 12/01/2024 3:49 PM CDT Goals: Clinical Goals for the Shift: VSS, manage pain, maintain safety and comfort Material Combiner Patient Centered Goal for Treatment: dc safely Problem: Lack of Knowledge Goal: Ability to develop a pain control plan will improve Outcome: Progressing Problem: Medication Goal: Satisfaction with pain management medication regimen will improve Outcome: Progressing Problem: Sensory Goal: Ability to identify factors that increase pain levels will improve while working to decrease the patient's pain levels Outcome: Progressing Problem: Coping Goal: Ability to cope will improve Outcome: Progressing Problem: Health Behavior Goal: Identification of resources available to assist in meeting health care needs will improve Outcome: Progressing Problem: Discharge Planning Goal: Understanding discharge needs will improve Outcome: Progressing Problem: Fall Risk Goal: Ability to state ways to decrease the risk of falls will improve Outcome: Progressing Goal: Will remain free from falls Outcome: Progressing Goal: Will remain free from injury from falls Outcome: Progressing Summary: VSS, patient had a fall in the shower, CT completed with no acute changes. Q6H neurochecks. Patient resting in bed with no questions or concerns at this time. * Assessment & Plan Note - Lia Hernandez MD - 12/01/2024 2:03 PM CDTAssociated Problem(s): Bacteremia due to Enterococcus #Vegetation on pacemaker leads 1/2 BCx + E. faecalis on 11/13. Unclear source. 20lb weight loss over the last few months.Cardiac surgeon that follow patient was contacted (Dr. Adal Moore) and agree with the plan. TTE on 11/14 lVEF 67% no thrombus, mechanical mitral valve w/o dysfunction. NEVAEH completed on 11/19, possible vegetation on pacemaker leads. Consulted CTS and pacemaker removal on 11/25 at 14:50 without complications. - Bcx negative on 11/15 and 11/16 - Started Amp (11/14-) and Ceftriaxone (11/14 -) - [facility] Bx with IR on 11/17, culture partial negative, Bx: osteomyelitis - Pacemaker removed on 11/25, pending cultures - ID recommended 6 weeks of Cef and Amp and further suppressive therapy for a year - Able to resume coreg on 12/01, monitor for hypotension * Assessment & Plan Note - Lia Hernandez MD - 12/01/2024 10:24 AM CDTAssociated Problem(s): Chronic midline thoracic back pain # C/f thoracic discitis / osteomyelitis Chronic back pain since 08/2024. Has had multiple CT scans for workup. Most recent CT thoracic spineshowed c/f discitis osteophyte complex at T10-11, saw NSGY as o/p, told to come to ED for further workup. Endorsing night sweats, 20 lb weight loss, intermittent BUE tingling. No incontinence. No IVDU. Hx of kyphoplasty few years ago to d/t L compression fracture. Hx of OM in foot / leg many years ago iso trauma. ESR/CRP high here. MRI total spine done and [facility] IR bx on 11/17 with negative cultures. 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 Transitioned to Lovenox on 11/29 with NEGATIVE MELODY. Warfarin restarted on 11/26 with bridging ongoing. - Pain management with GLORY: tylenol 1g q6, robaxin 750mg q8, gabapentin 300mg TID (added on 11/22),Lidocaine patch; PRN: oxy 7.5mg q4 and dilaudid 0.2 IV q2 to breakthrough pain. - Bone pathology (11/17): positive for possible osteomyelitis or degenerative disease, ID recommended 6 weeks of Cef and Amp and further PO suppressive therapy for a year - Pending SNF placement - anticipate 12/02 - ESR/CRP 3 weeks (12/05) and 6 weeks(12/26) into treatment * Assessment & Plan Note - Lia Hernandez MD - 12/01/2024 10:24 AM CDTAssociated Problem(s): Osteomyelitis of thoracic spine (HCC) See above * Assessment & Plan Note - Lia Hernandez MD - 12/01/2024 10:24 AM CDTAssociated Problem(s): HIT suspected - tested NEGATIVE Matias found with decrease of > 30% in her baseline platelets (204 from admission to 140 last lab) and down trending HB with no apparent bleeding (8.8 from adcmission to 6.6 last lab). 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 - Heparin (11/11 - 11/25) -> Bival (11/25-) -> Lovenox (11/29-) - Started bridge to coumadin on 11/26 * Assessment & Plan Note - Lia Hernandez MD - 12/01/2024 10:24 AM CDTAssociated Problem(s): Pacemaker infection See above - Removal of pacemaker on 11/25 - Continue antibiotic, followed by ID - Plan discharge considering antibiotic therapy for 6 weeks and suppression for a year * Assessment & Plan Note - Lia Hernandez MD - 12/01/2024 10:24 AM CDTAssociated Problem(s): Fall Patient had a fall on 12/01 while taking a shower at 9:20. On coumadin 4mg/daily and full dose of lovenox. Presence of hematoma em right forehead.No loss of consciousness, nausea or vomit after event. Patient reports she lost her balance - STAT CT head and total spine - pending reading - Neurocheck q6 * Plan of Care - Tara Briones RN - 12/01/2024 6:18 AM CDT Goals: Clinical Goals for the Shift: VSS; monitor pain; promote comfort and rest; pt remains free from falls/injuries Material Combiner Patient Centered Goal for Treatment: dc safely Summary: No acute events throughout my shift. - VSS throughout the night. - Patient endorses pain to back, rated at 3/10. - Continues to rest well on RA. - Patient ambulates independently in room. - No BM during my shift today. - Patient voids independently. - No concerns for fall/injury event. Problem: Lack of Knowledge Goal: Ability to develop a pain control plan will improve Outcome: Progressing Problem: Medication Goal: Satisfaction with pain management medication regimen will improve Outcome: Progressing Problem: Sensory Goal: Ability to identify factors that increase pain levels will improve while working to decrease the patient's pain levels Outcome: Progressing Problem: Coping Goal: Ability to cope will improve Outcome: Progressing Problem: Health Behavior Goal: Identification of resources available to assist in meeting health care needs will improve Outcome: Progressing Problem: Discharge Planning Goal: Understanding discharge needs will improve Outcome: Progressing Problem: Fall Risk Goal: Ability to state ways to decrease the risk of falls will improve Outcome: Progressing Goal: Will remain free from falls Outcome: Progressing Goal: Will remain free from injury from falls Outcome: Progressing * Plan of Care - Jeferson Langley RN - 11/30/2024 3:51 PM CDT Goals: Clinical Goals for the Shift: VSS, manage pain, maintain safety and comfort Long-Term Patient Centered Goal for Treatment: dc safely Problem: Lack of Knowledge Goal: Ability to develop a pain control plan will improve Outcome: Progressing Problem: Sensory Goal: Ability to identify factors that increase pain levels will improve while working to decrease the patient's pain levels Outcome: Progressing Problem: Medication Goal: Satisfaction with pain management medication regimen will improve Outcome: Progressing Problem: Coping Goal: Ability to cope will improve Outcome: Progressing Problem: Health Behavior Goal: Identification of resources available to assist in meeting health care needs will improve Outcome: Progressing Problem: Fall Risk Goal: Ability to state ways to decrease the risk of falls will improve Outcome: Progressing Goal: Will remain free from falls Outcome: Progressing Goal: Will remain free from injury from falls Outcome: Progressing Problem: Discharge Planning Goal: Understanding discharge needs will improve Outcome: Progressing Summary: VSS, no acute changes during shift. Patient resting in bed with no questions or concerns at this time. * Medical Student - Annalise Rankin - 11/30/2024 11:16 AM CDT Medicine Firm Daily Progress Subjective SUBJECTIVE Kendal Cisneros is a 69 y.o. 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 Interval History: - Pain PRNs as below -2 oxy Subjective: - Back pain and surgical site pain managed on pain PRNs - No palpitations, shortness of breath Objective OBJECTIVE Scheduled Medications: acetaminophen, 1,000 mg, oral, Q6H GLORY ampicillin, 2,000 mg, intravenous, Q6H GLORY [Held by Provider] carvediloL, 12.5 mg, oral, BID with meals (bkfst, dinner) cefTRIAXone, 2,000 mg, intravenous, Q12H GLORY enoxaparin, 1 mg/kg, subcutaneous, Daily famotidine, 40 mg, oral, Daily fluticasone propionate, 2 spray, each nostril, Daily ssitvpkqcls-[id number]-nddybahh, 1 puff, inhalation, Daily gabapentin, 300 mg, oral, TID lidocaine, 1 patch, transdermal, Q24H methocarbamoL, 750 mg, oral, TID rosuvastatin, 40 mg, oral, Daily sertraline, 100 mg, oral, Daily sodium chloride 0.9%, 0.5-20 mL, intra-catheter, Q8H GLORY sodium chloride 0.9%, 10-40 mL, intra-catheter, Q12H GLORY [Held by Provider] spironolactone, 25 mg, oral, Daily traZODone, 100 mg, oral, Nightly warfarin, 4 mg, oral, Daily-1800 Continuous Medications: PRN Medications: albuterol HFA sodium chloride 0.9% HYDROmorphone hydrOXYzine LORazepam ondansetron ODT OR ondansetron oxyCODONE perflutren lipid (DEFINITY) 1.5 mL in sodium chloride 0.9% 10 mL syringe polyethylene glycol prochlorperazine sodium chloride 0.9% sodium chloride 0.9% Vitals: Most Recent : Vitals: 11/30/24 0800 BP: 149/78 Pulse: 88 Resp: 17 Temp: 36.4 ??C (97.5 ??F) SpO2: 98% 24hr Min/Max: Temp Min: 36.4 ??C (97.5 ??F) Max: 36.7 ??C (98.1 ??F) Pulse Min: 66 Max: 88 BP Min: 100/80 Max: 149/78 Resp Min: 16 Max: 17 SpO2 Min: 95 % Max: 98 % I/O: I/O last 2 completed shifts: In: 50 [I.V.:50] Out: - No intake/output data recorded. Physical Exam: General: Well-developed, well-nourished, appears stated age, NAD HENT: NCAT. Conjunctivae are normal. No scleral icterus. Cardiovascular: RRR. S2 systolic click. Noperipheral edema Pulmonary/Chest: no respiratory distress. CTAB. No w/r/r Abdomen: soft, +BS. NTND. No rebound tenderness, no guarding Back: Tender over lower thoracic processes. Skin: warm and dry, no observable rashes. R chest pacemaker removal site dry, dried blood over skinincision. Bruising on superior and posterior aspect. No erythema, significant swelling, or drainage. Extremities: 2+ radial, DP pulses. PICC line in place in RUE. Neuro: A&Ox4, no focal neurologic deficits Psych: Normal mood and affect Lab/Radiology/Diagnostic Review: Recent Results (from the past 24 hours) Protime-INR Collection Time: 11/29/24 10:18 PM Result Value Ref Range PT 15.1 (H) 9.7 - 13.0 sec INR 1.39 (H) 0.90 - 1.20 Basic metabolic panel Collection Time: 11/29/24 10:18 PM Result Value Ref Range Sodium 145 135 - 145 mmol/L Potassium, pl 4.2 3.3 - 4.9 mmol/L Chloride 111 (H) 97 - 110 mmol/L CO2 24 22 - 32 mmol/L Anion gap 10 2 - 15 mmol/L BUN 12 6 - 25 mg/dL Creatinine 1.63 (H) 0.60 - 1.10 mg/dL Glucose 99 70 - 199 mg/dL Calcium 8.5 8.5 - 10.3 mg/dL CBC with auto differential Collection Time: 11/29/24 10:18 PM Result Value Ref Range WBC 5.79 3.80 - 9.90 K/cumm Hgb 7.3 (L) 11.9 - 15.5 g/dL Hct 24.1 (L) 35.6 - 45.5 % Plt 162 150 - 400 K/cumm MPV 11.8 9.1 - 12.3 fL RBC 2.69 (L) 3.90 - 5.20 M/cumm MCV 89.6 81.3 - 96.4 fL MCH 27.1 27.1 - 33.3 pg MCHC 30.3 (L) 32.3 - 35.7 g/dL RDW CV 17.1 (H) 11.1 - 14.9 % RDW SD 55.2 (H) 35.7 - 48.1 fL NRBC abs 0.00 0.00 - 0.01 K/cumm Differential, auto Collection Time: 11/29/24 10:18 PM Result Value Ref Range Neutrophil abs 4.10 1.50 - 6.50 K/cumm Imm gran abs 0.03 0.00 - 0.10 K/cumm Lymphocyte abs 0.70 (L) 0.80 - 3.30 K/cumm Monocyte abs 0.44 0.20 - 0.80 K/cumm Eosinophil abs 0.45 0.00 - 0.50 K/cumm Basophil abs 0.07 0.00 - 0.10 K/cumm Neutrophil pct 70.8 % Imm gran pct 0.5 % Lymphocyte pct 12.1 % Monocyte pct 7.6 % Eosinophil pct 7.8 % Basophil pct 1.2 % eGFR Collection Time: 11/29/24 10:18 PM Result Value Ref Range eGFR 34 (L) >=60 mL/min/1.73 m2 I have reviewed the above laboratory results. Imaging Results: No results found. Assessment/Plan ASSESSMENT & PLAN Kendal Cisneros is a 69 y.o. 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 #Enterococci Bacteremia 1/2 BCx returned positive for Enterococci fecaelis within 16 hrs on 11/13/24. Pt did have any fevers but c/f osteomyelitis. Bacteremia was of unknown source, with subsequent 11/13 TTE unremarkable for a source. 11/15 and 11/16 repeat blood cultures were negative for growth. ID following, and per their recs, stopped repeat blood cultures. NEVAEH 11/19 for further evaluation of source identification showed mobile linear echodensity attach to device lead in the right atrium (DDx includes thrombus vs. vegetation). Cannot rule out lead-related infective endocarditis. Pacemaker removal uncomplicated on 11/25, patient given 1 unit of RBCs before for Hgb 6.8. Outpatient antibiotic plan for 6 weeks of antibiotics post pacemaker removal (11/25-01/06), with discussion of suppression for a year. PICC line placed. Pt will be discharged to facility given that patient's insurance does not cover home infusion (outpatient clinic antibiotics not possible as patient needs Q6 ampicillin.) -[facility] will accept pt on 12/02. Continuous infusion antibiotics at [facility] -Continuing Ampicillin 2g Q6 and ceftriaxone 2g Q12 (11/14-12/26). -ESR and CRP 3 (12/05) and 6 weeks after antibiotics started #Thoracic back pain c/f osteomyelitis Pt has had worsening thoracic back pain since Aug 2024, worsening with movement. Most recent CT thoracic spine showed new osteolysis, cortical irregularities, subcortical sclerosis and distention ofthe intervertebral disc at T10-T11, concerning for diskitis of the osteophyte complex. BUE tingling, but no incontinence, numbness, or lower extremity paresthesia. History notable for kyphoplasty [id number] secondary to L compression fracture and osteomyelitis in foot. Neurosurgery recommended no surgical intervention. CRP and ESR elevated on admission to 17 and 82 respectively. Total spine MRI 11/17 (EP c/s confirm pacemaker compatibility): abnormal signal within the T10-T11 vertebral bodies and disc space with cortical erosion and paraspinal soft tissue edema, concerning for osteomyelitis discitis at this level. Biopsy on 11/17 negative for growth, path notable for medullary fibrosis, hemosiderin deposition, and woven bone formation, nonspecific for osteomyelitis vs reactive/degenerative process. New L sided back pain on 11/20 likely MSK; reproducible with movement and mild. -Pain management regiment: Tylenol 1000 mg Q6, Gabapentin 300 mg TID, Robaxin 750 mg TID scheduled;Dilaudid 0.2 g IV Q2 and oxycodone 7.5 mg oral Q4 PRN for breakthrough pain. -Lidocaine patch PRN for MSK pain. #AVR, MR #pAF on Warfarin at home #HFpEF Pt switched to heparin ggt from Warfarin for upcoming biopsy. Platelets 142 on 11/25 from 170, HIT antibodies positive. Discontinued heparin given positive HIT antibodies and transitioned to bival post-procedure 11/25. However, MELODY negative. Restarted on Lovenox 11/29 while bridging to warfarin. -Bridging from bival to warfarin with pt's prior home regiment (1.5 mg/3 mg alternating days) with serial INRs. Goal INR 2-3. -INR 1.52 --> 1.65 -->1.37. Warfarin increased from 3 mg to 4 mg. Per pharmacy, ceftriaxone can potentiate the anticoagulant effects of warfarin -Holding home coreg and lyle as patient's blood pressures have been low on floor #Thromboyctopenia #Suspected BVL-mizuckhp-BHM negative Plts 200s on admission, 142 prior to pacemaker removal on 11/25. 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 MELODY antibodies returned negative, switched to bival prior to result,and switched back to Lovenox on 11/28. -Monitor platelets #CAD s/p RCA CABG #HLD - Home crestor 40 daily #Mood disorder - Home sertraline 100 daily, trazodone 50 nightly #GERD - Home famotidine #COPD Home regimen: albuterol, breztri, flonase - Flonase, trelegy ellipta - PRN albuterol Code Status: Full Code Diet: Adult Diet Regular, Restricted; Vitamin K Consistent DVT Prophylaxis: Lovenox bridging to heparin Dispo: [facility] Annalise Rankin, medical student Cosigned by Ann Bangura MD at 12/01/2024 1:03 PM CDT * Assessment & Plan Note - Lia Hernandez MD - 11/30/2024 9:21 AM CDTAssociated Problem(s): Chronic midline thoracic back pain # C/f thoracic discitis / osteomyelitis Chronic back pain since 08/2024. Has had multiple CT scans for workup. Most recent CT thoracic spineshowed c/f discitis osteophyte complex at T10-11, saw NSGY as o/p, told to come to ED for further workup. Endorsing night sweats, 20 lb weight loss, intermittent BUE tingling. No incontinence. No IVDU. Hx of kyphoplasty few years ago to d/t L compression fracture. Hx of OM in foot / leg many years ago iso trauma. ESR/CRP high here. MRI total spine done and MSK IR bx on 11/17 with negative cultures. 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 Transitioned to Lovenox on 11/29 with NEGATIVE MELODY. Warfarin restarted on 11/26 with bridging ongoing. - Pain management with GLORY: tylenol 1g q6, robaxin 750mg q8, gabapentin 300mg TID (added on 11/22),Lidocaine patch; PRN: oxy 7.5mg q4 and dilaudid 0.2 IV q2 to breakthrough pain. - Bone pathology (11/17): positive for possible osteomyelitis or degenerative disease, ID recommended 6 weeks of Cef and Amp and further PO suppressive therapy for a year - Pending SNF placement - anticipate 12/02 - ESR/CRP 3 weeks (12/05) and 6 weeks(12/26) into treatment * Assessment & Plan Note - Lia Hernandez MD - 11/30/2024 9:21 AM CDTAssociated Problem(s): Bacteremia due to Enterococcus #Vegetation on pacemaker leads / BCx + E. faecalis on 11/13. Unclear source. 20lb weight loss over the last few months.Cardiac surgeon that follow patient was contacted (Dr. Adal Moore) and agree with the plan. TTE on 11/14 lVEF 67% no thrombus, mechanical mitral valve w/o dysfunction. NEVAEH completed on 11/19, possible vegetation on pacemaker leads. Consulted CTS and pacemaker removal on 11/25 at 14:50 without complications. - Bcx negative on 11/15 and 11/16 - Started Amp (11/14-) and Ceftriaxone (11/14 -) - MSK Bx with IR on 11/17, culture partial negative, Bx: osteomyelitis - Pacemaker removed on 11/25, pending cultures - ID recommended 6 weeks of Cef and Amp and further suppressive therapy for a year * Assessment & Plan Note - Lia Hernandez MD - 11/30/2024 9:21 AM CDTAssociated Problem(s): Osteomyelitis of thoracic spine (HCC) See above * Assessment & Plan Note - Lia Hernandez MD - 11/30/2024 9:21 AM CDTAssociated Problem(s): HIT suspected - tested NEGATIVE Matias found with decrease of > 30% in her baseline platelets (204 from admission to 140 last lab) and down trending HB with no apparent bleeding (8.8 from adcmission to 6.6 last lab). 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 - Heparin (11/11 - 11/25) -> Bival (11/25-) -> Lovenox (11/29-) - Started bridge to coumadin on 11/26 * Assessment & Plan Note - Lia Hernandez MD - 11/30/2024 9:21 AM CDTAssociated Problem(s): Pacemaker infection See above - Removal of pacemaker on 11/25 - Continue antibiotic, followed by ID - Plan discharge considering antibiotic therapy for 6 weeks and suppression for a year * Plan of Care - Bettina Mcintosh RN - 11/30/2024 3:13 AM CDT Goals: Clinical Goals for the Shift: remain free from falls and injury Material Combiner Patient Centered Goal for Treatment: dc safely Summary: -A&Ox4 -VSS -d/c continuous LR -CHG shower Problem: Lack of Knowledge Goal: Ability to develop a pain control plan will improve Outcome: Ongoing Problem: Medication Goal: Satisfaction with pain management medication regimen will improve Outcome: Ongoing Problem: Sensory Goal: Ability to identify factors that increase pain levels will improve while working to decrease the patient's pain levels Outcome: Ongoing Problem: Coping Goal: Ability to cope will improve Outcome: Ongoing Problem: Health Behavior Goal: Identification of resources available to assist in meeting health care needs will improve Outcome: Ongoing Problem: Discharge Planning Goal: Understanding discharge needs will improve Outcome: Ongoing Problem: Fall Risk Goal: Ability to state ways to decrease the risk of falls will improve Outcome: Ongoing Goal: Will remain free from falls Outcome: Ongoing Goal: Will remain free from injury from falls Outcome: Ongoing * Plan of Care - Jeferson Langley RN - 11/29/2024 4:33 PM CDT Goals: Clinical Goals for the Shift: VSS, manage pain, maintain safety and comfort Long-Term Patient Centered Goal for Treatment: dc safely Problem: Lack of Knowledge Goal: Ability to develop a pain control plan will improve Outcome: Progressing Problem: Medication Goal: Satisfaction with pain management medication regimen will improve Outcome: Progressing Problem: Sensory Goal: Ability to identify factors that increase pain levels will improve while working to decrease the patient's pain levels Outcome: Progressing Problem: Coping Goal: Ability to cope will improve Outcome: Progressing Problem: Health Behavior Goal: Identification of resources available to assist in meeting health care needs will improve Outcome: Progressing Problem: Fall Risk Goal: Ability to state ways to decrease the risk of falls will improve Outcome: Progressing Goal: Will remain free from falls Outcome: Progressing Goal: Will remain free from injury from falls Outcome: Progressing Problem: Discharge Planning Goal: Understanding discharge needs will improve Outcome: Progressing Summary: VSS, no acute changes during shift. Patient resting in bed with no questions or concerns at this time. * Assessment & Plan Note - Ann Bangura MD - 11/29/2024 12:38 PM CDTAssociated Problem(s): Chronic midline thoracic back pain # C/f thoracic discitis / osteomyelitis Chronic back pain since 08/2024. Has had multiple CT scans for workup. Most recent CT thoracic spineshowed c/f discitis osteophyte complex at T10-11, saw NSGY as o/p, told to come to ED for further workup. Endorsing night sweats, 20 lb weight loss, intermittent BUE tingling. No incontinence. No IVDU. Hx of kyphoplasty few years ago to d/t L compression fracture. Hx of OM in foot / leg many years ago iso trauma. ESR/CRP high here. MRI total spine done and MSK IR bx on 11/17 with negative cultures. 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 Transitioned to Lovenox on 11/29 with NEGATIVE MELODY. Warfarin restarted on 11/26 with bridging ongoing. - Pain management with GLORY: tylenol 1g q6, robaxin 750mg q8, gabapentin 300mg TID (added on 11/22),Lidocaine patch; PRN: oxy 7.5mg q4 and dilaudid 0.2 IV q2 to breakthrough pain. - Bone pathology (11/17): positive for possible osteomyelitis or degenerative disease, ID recommended 6 weeks of Cef and Amp and further PO suppressive therapy for a year - Pending SNF placement - anticipate 12/02 - ESR/CRP 3 weeks (12/05) and 6 weeks(12/26) into treatment * Assessment & Plan Note - Ann Bangura MD - 11/29/2024 12:38 PM CDTAssociated Problem(s): Bacteremia due to Enterococcus #Vegetation on pacemaker leads 1/2 BCx + E. faecalis on 11/13. Unclear source. 20lb weight loss over the last few months.Cardiac surgeon that follow patient was contacted (Dr. Adal Moore) and agree with the plan. TTE on 11/14 lVEF 67% no thrombus, mechanical mitral valve w/o dysfunction. NEVAEH completed on 11/19, possible vegetation on pacemaker leads. Consulted CTS and pacemaker removal on 11/25 at 14:50 without complications. - Bcx negative on 11/15 and 11/16 - Started Amp (11/14-) and Ceftriaxone (11/14 -) - MSK Bx with IR on 11/17, culture partial negative, Bx: osteomyelitis - Pacemaker removed on 11/25, pending cultures - ID recommended 6 weeks of Cef and Amp and further suppressive therapy for a year * Assessment & Plan Note - Ann Bangura MD - 11/29/2024 12:38 PM CDTAssociated Problem(s): Osteomyelitis of thoracic spine (HCC) See above * Assessment & Plan Note - Ann Bangura MD - 11/29/2024 12:38 PM CDTAssociated Problem(s): Pacemaker infection See above - Removal of pacemaker on 11/25 - Continue antibiotic, followed by ID - Plan discharge considering antibiotic therapy for 6 weeks and suppression for a year * Assessment & Plan Note - Ann Bangura MD - 11/29/2024 12:38 PM CDTAssociated Problem(s): HIT suspected - tested NEGATIVE Matias found with decrease of > 30% in her baseline platelets (204 from admission to 140 last lab) and down trending HB with no apparent bleeding (8.8 from adcmission to 6.6 last lab). 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 - Heparin (11/11 - 11/25) -> Bival (11/25-) -> Lovenox (11/29-) - Started bridge to coumadin on 11/26 * Plan of Care - Joel Howard - 11/29/2024 3:11 AM CDT Problem: Lack of Knowledge Goal: Ability to develop a pain control plan will improve Outcome: Progressing Flowsheets (Taken 11/29/2024308) Ability to develop a pain control plan will improve: Educate pain scale for assessing level of pain Problem: Medication Goal: Satisfaction with pain management medication regimen will improve Outcome: Progressing Flowsheets (Taken 11/29/2024308) Satisfaction with pain management medication regimen will improve: Provide administration of medications prior to painful activities Monitor patient controlled analgesia or anesthesia Evaluate medication effects Problem: Sensory Goal: Ability to identify factors that increase pain levels will improve while working to decrease the patient's pain levels Outcome: Progressing Flowsheets (Taken 11/29/2024308) Ability to identify factors that increase pain levels will improve while working to decrease patients pain levels: Assess pain status Assess effects of pain control measures Problem: Coping Goal: Ability to cope will improve Outcome: Progressing Flowsheets (Taken 11/29/2024308) Ability to cope will Improve: Encourage vebalization of feelings surrounding pain Problem: Health Behavior Goal: Identification of resources available to assist in meeting health care needs will improve Outcome: Progressing Flowsheets (Taken 11/24/2024 2014 by Serenity Gonzalez RN) Identification of resources available to assist in meeting health care needs will improve: Collaborate with pain management Problem: Discharge Planning Goal: Understanding discharge needs will improve Outcome: Progressing Flowsheets (Taken 11/29/2024308) Understanding of discharge needs will improve: Collaborate with case management interdisciplinary team Problem: Fall Risk Goal: Ability to state ways to decrease the risk of falls will improve Outcome: Progressing Flowsheets (Taken 11/29/2024 0309) Ability to state ways to decrease the risk of falls will improve: Teach fall prevention measures Goal: Will remain free from falls Outcome: Progressing Flowsheets (Taken 11/29/2024 030) Will remain free from falls: Assess risk factors for falls Goal: Will remain free from injury from falls Outcome: Progressing Flowsheets (Taken 11/29/2024 030) Will remain free from injury from falls: Provide safe environment for conduction of activities of daily living in hospital environment Goals: Clinical Goals for the Shift: VSS, remains free from falls/injuries, pain management, aPTT in AM, restful night Long-Term Patient Centered Goal for Treatment: dc safely Summary: Vital Signs Stable, Pt. Ambulatory independent, remains free from falls/injuries. Pain is constant,oxycodone 7.5 x 1. Patient sleeping well at this time. * Medical Student - Annalise Rankin - 11/28/2024 1:47 PM CDT [employer] Daily Progress Subjective SUBJECTIVE Kendal Cisneros is a 69 y.o. 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 Interval History: -INR 1.52, 1.65 yesterday. 3 mg warfarin dose given today -PTT 49 from 52 yesterday, bival increased to .09 mg/kg/hr from .08 -Pain PRNs: 1 oxy -[place] [facility] will accept pt on 12/02 Subjective: -Pt's pain is at a 5/10 over R chest surgical site and lower back -No nausea, vomiting, palpitations Objective OBJECTIVE Scheduled Medications: acetaminophen, 1,000 mg, oral, Q6H GLORY ampicillin, 2,000 mg, intravenous, Q6H GLORY [Held by Provider] carvediloL, 12.5 mg, oral, BID with meals (bkfst, dinner) cefTRIAXone, 2,000 mg, intravenous, Q12H GLORY famotidine, 40 mg, oral, Daily fluticasone propionate, 2 spray, each nostril, Daily gndwwtdzbkx-shqwemgcu-dpucvgpx, 1 puff, inhalation, Daily gabapentin, 300 mg, oral, TID lidocaine, 1 patch, transdermal, Q24H methocarbamoL, 750 mg, oral, TID rosuvastatin, 40 mg, oral, Daily sertraline, 100 mg, oral, Daily sodium chloride 0.9%, 0.5-20 mL, intra-catheter, Q8H GLORY sodium chloride 0.9%, 10-40 mL, intra-catheter, Q12H GLORY [Held by Provider] spironolactone, 25 mg, oral, Daily traZODone, 100 mg, oral, Nightly warfarin, 1.5 mg, oral, Once - 1800 [START ON 11/29/2024] warfarin, 3 mg, oral, Daily-1800 Continuous Medications: bivalirudin, 0-3 mg/kg/hr, Last Rate: 0.09 mg/kg/hr (11/28/24 1038) sodium chloride 0.9%, 30 mL/hr, Last Rate: 30 mL/hr (11/25/24 1459) sodium chloride 0.9%, 30 mL/hr PRN Medications: albuterol HFA sodium chloride 0.9% HYDROmorphone hydrOXYzine LORazepam ondansetron ODT OR ondansetron oxyCODONE perflutren lipid (DEFINITY) 1.5 mL in sodium chloride 0.9% 10 mL syringe polyethylene glycol prochlorperazine sodium chloride 0.9% sodium chloride 0.9% Vitals: Most Recent : Vitals: 11/28/24 0815 BP: 127/66 Pulse: 62 Resp: 16 Temp: 36.5 ??C (97.7 ??F) SpO2: 95% 24hr Min/Max: Temp Min: 36.5 ??C (97.7 ??F) Max: 37.5 ??C (99.5 ??F) Pulse Min: 62 Max: 75 BP Min: 127/66 Max: 140/73 Resp Min: 16 Max: 17 SpO2 Min: 94 % Max: 95 % I/O: No intake/output data recorded. No intake/output data recorded. Physical Exam: General: Well-developed, well-nourished, appears stated age, NAD HENT: NCAT. Conjunctivae are normal. No scleral icterus. Cardiovascular: RRR. S2 systolic click. Noperipheral edema Pulmonary/Chest: no respiratory distress. CTAB. No w/r/r Abdomen: soft, +BS. NTND. No rebound tenderness, no guarding Back: Tender over lower thoracic processes. Skin: warm and dry, no observable rashes. R chest pacemaker removal site dry, dried blood over skinincision. Bruising on superior aspect, no drainage, erythema, or swelling. Extremities: 2+ radial, DP pulses. PICC line in place in RUE. Neuro: A&Ox4, no focal neurologic deficits Psych: Normal mood and affect Lab/Radiology/Diagnostic Review: Recent Results (from the past 24 hours) Type and screen Collection Time: 11/27/24 8:31 PM Result Value Ref Range ABO Rh A Positive Man, indirect Negative Protime-INR Collection Time: 11/27/24 8:31 PM Result Value Ref Range PT 16.6 (H) 9.7 - 13.0 sec INR 1.52 (H) 0.90 - 1.20 Basic metabolic panel Collection Time: 11/27/24 8:31 PM Result Value Ref Range Sodium 140 135 - 145 mmol/L Potassium, pl 4.3 3.3 - 4.9 mmol/L Chloride 108 97 - 110 mmol/L CO2 25 22 - 32 mmol/L Anion gap 7 2 - 15 mmol/L BUN 14 6 - 25 mg/dL Creatinine 1.70 (H) 0.60 - 1.10 mg/dL Glucose 102 70 - 199 mg/dL Calcium 8.5 8.5 - 10.3 mg/dL CBC with auto differential Collection Time: 11/27/24 8:31 PM Result Value Ref Range WBC 6.11 3.80 - 9.90 K/cumm Hgb 7.8 (L) 11.9 - 15.5 g/dL Hct 25.6 (L) 35.6 - 45.5 % Plt 168 150 - 400 K/cumm MPV 11.6 9.1 - 12.3 fL RBC 2.88 (L) 3.90 - 5.20 M/cumm MCV 88.9 81.3 - 96.4 fL MCH 27.1 27.1 - 33.3 pg MCHC 30.5 (L) 32.3 - 35.7 g/dL RDW CV 17.0 (H) 11.1 - 14.9 % RDW SD 54.6 (H) 35.7 - 48.1 fL NRBC abs 0.00 0.00 - 0.01 K/cumm Differential, auto Collection Time: 11/27/24 8:31 PM Result Value Ref Range Neutrophil abs 4.46 1.50 - 6.50 K/cumm Imm gran abs 0.01 0.00 - 0.10 K/cumm Lymphocyte abs 0.80 0.80 - 3.30 K/cumm Monocyte abs 0.47 0.20 - 0.80 K/cumm Eosinophil abs 0.30 0.00 - 0.50 K/cumm Basophil abs 0.07 0.00 - 0.10 K/cumm Neutrophil pct 73.0 % Imm gran pct 0.2 % Lymphocyte pct 13.1 % Monocyte pct 7.7 % Eosinophil pct 4.9 % Basophil pct 1.1 % eGFR Collection Time: 11/27/24 8:31 PM Result Value Ref Range eGFR 33 (L) >=60 mL/min/1.73 m2 aPTT Collection Time: 11/28/24 4:19 AM Result Value Ref Range aPTT 49 (H) 28 - 38 sec aPTT Collection Time: 11/28/24 8:22 AM Result Value Ref Range aPTT 50 (H) 28 - 38 sec aPTT Collection Time: 11/28/24 10:37 AM Result Value Ref Range aPTT 53 (H) 28 - 38 sec aPTT Collection Time: 11/28/24 12:40 PM Result Value Ref Range aPTT 52 (H) 28 - 38 sec I have reviewed the above laboratory results. Imaging Results: No results found. Assessment/Plan ASSESSMENT & PLAN Kendal Cisneros is a 69 y.o. 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 #Enterococci Bacteremia 1/2 BCx returned positive for Enterococci fecaelis within 16 hrs on 11/13/24. Pt did have any fevers but c/f osteomyelitis. Bacteremia was of unknown source, with subsequent 11/13 TTE unremarkable for a source. 11/15 and 11/16 repeat blood cultures were negative for growth. ID following, and per their recs, stopped repeat blood cultures. NEVAEH 11/19 for further evaluation of source identification showed mobile linear echodensity attach to device lead in the right atrium (DDx includes thrombus vs. vegetation). Cannot rule out lead-related infective endocarditis. Pacemaker removal uncomplicated on 11/25, patient given 1 unit of RBCs before for Hgb 6.8. Outpatient antibiotic plan for 6 weeks of antibiotics post pacemaker removal (11/25-01/06), with discussion of suppression for a year. PICC line placed. Pt will be discharged to facility given that patient's insurance does not cover home infusion (outpatient clinic antibiotics not possible as patient needs Q6 ampicillin.) -[facility] will accept pt on 12/02. Continuous infusion -Continuing Ampicillin 2g Q6 and ceftriaxone 2g Q12 (11/14-12/26). -ESR and CRP 3 (12/05) and 6 weeks after antibiotics started #Thoracic back pain c/f osteomyelitis Pt has had worsening thoracic back pain since Aug 2024, worsening with movement. Most recent CT thoracic spine showed new osteolysis, cortical irregularities, subcortical sclerosis and distention ofthe intervertebral disc at T10-T11, concerning for diskitis of the osteophyte complex. BUE tingling, but no incontinence, numbness, or lower extremity paresthesia. History notable for kyphoplasty [id number] secondary to L compression fracture and osteomyelitis in foot. Neurosurgery recommended no surgical intervention. CRP and ESR elevated on admission to 17 and 82 respectively. Total spine MRI 11/17 (EP c/s stated that pt's pacemaker is compatible) read abnormal signal within the T10-T11 vertebral bodies and disc space with cortical erosion and paraspinal soft tissue edema, concerning for osteomyelitis discitis at this level. Biopsy on 11/17 negative for growth, path notable for medullary fibrosis, hemosiderin deposition, and woven bone formation, nonspecific for osteomyelitis vs reactive/degenerative process. New L sided back pain on 11/20 likely MSK; reproducible with movement and mild. -Pain management regiment: Tylenol 1000 mg Q6, Gabapentin 400 mg TID, Robaxin 750 mg TID scheduled;Dilaudid 0.2 g IV Q2 and oxycodone 7.5 mg oral Q4 PRN for breakthrough pain. -Lidocaine patch PRN for MSK pain. #AVR, MR #pAF on Warfarin at home #HFpEF Pt switched to heparin ggt from Warfarin for upcoming biopsy. Platelets 142 on 11/25 from 170, HIT antibodies positive. PTT therapeutic at 63 before pacemaker removal. Discontinued heparin given positive HIT antibodies and transitioned to bival post-procedure 11/25. -Bridging from bival to warfarin with pt's prior home regiment (1.5 mg/3 mg alternating days) with serial INRs. Goal INR 2-3. -INR 1.52, 1.65 yesterday. Warfarin increased to 3 mg QD -PTT 49 from 52 yesterday, bival increased to .09 mg/kg/hr from .08 -Holding home coreg and lyle as patient's blood pressures have been low on admission #Thromboyctopenia Plts 200s on admission, 142 prior to pacemaker removal on 11/25. 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 -F/u serotonin assay #CAD s/p RCA CABG #HLD - Home crestor 40 daily #Mood disorder - Home sertraline 100 daily, trazodone 50 nightly #GERD - Home famotidine #COPD Home regimen: albuterol, breztri, flonase - Flonase, trelegy ellipta - PRN albuterol Code Status: Full Code Diet: Adult Diet Regular, Restricted; Vitamin K Consistent DVT Prophylaxis: Bival transitioning to warfarin Access: PICC line Dispo: [facility] will accept pt on 12/02. Pending INR 2-3 Annalise Rankin, medical student Cosigned by Ann Bangura MD at 11/28/2024 4:26 PM CDT * Plan of Care - Waleska Cedeño RN - 11/28/2024 12:35 PM CDT CM Progression of Care Update Per Medical Chart/Rounds/IDR: Patient is not medically ready to discharge from the hospital ADD: 12/02 Plan/Barriers: waiting on INR to be therapeutic Referrals: accepted to [facility] (admissions) is aware patient will discharge possibly on Sunday. Abby will tell her pharmacy not to deliver the CAD pump. Son is updated on discharge plan Transportation: EMS F/U Appointments: will discharge to SNF Patient's Identified Problem/Goal Problem:?Ensure acute medical needs are met and that patient has a safe discharge plan. Goal:?Secure a discharge plan that patient/family are agreeable with?and ensure patient has continuum of care. Patient and/or family are agreeable with plan. health policy manager will continue to follow and assist with discharge planning as needed. If any further discharge needs arise, please contact the covering classification case manager. * Assessment & Plan Note - Lia Hernandez MD - 11/28/2024 10:18 AM CDTAssociated Problem(s): Bacteremia due to Enterococcus #Vegetation on pacemaker leads 1/2 BCx + E. faecalis on 11/13. Unclear source. 20lb weight loss over the last few months.Cardiac surgeon that follow patient was contacted (Dr. Adal Moore) and agree with the plan. TTE on 11/14 lVEF 67% no thrombus, mechanical mitral valve w/o dysfunction. NEVAEH completed on 11/19, possible vegetation on pacemaker leads. Consulted CTS and pacemaker removal on 11/25 at 14:50 without complications. - Bcx negative on 11/15 and 11/16 - Started Amp (11/14-) and Ceftriaxone (11/14 -) - MSK Bx with IR on 11/17, culture partial negative, Bx: osteomyelitis - Pacemaker removed on 11/25, pending cultures - ID recommended 6 weeks of Cef and Amp and further suppressive therapy for a year - Pending SNF placement after coumadin bridge is finalized. * Assessment & Plan Note - Lia Hernandez MD - 11/28/2024 10:18 AM CDTAssociated Problem(s): Osteomyelitis of thoracic spine (HCC) See above * Assessment & Plan Note - Lia Hernandez MD - 11/28/2024 10:18 AM CDTAssociated Problem(s): Pacemaker infection See above - Removal of pacemaker on 11/25 - Continue antibiotic, followed by ID - Plan discharge considering antibiotic therapy for 6 weeks and suppression for a year - Pending SNF placement after coumadin bridge is finalized. 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 Has had multiple CT scans for workup. Most recent CT thoracic spineshowed c/f discitis osteophyte complex at T10-11, saw NSGY as o/p, told to come to ED for further workup. Endorsing night sweats, 20 lb weight loss, intermittent BUE tingling. No incontinence. No IVDU. Hx of kyphoplasty few years ago to d/t L compression fracture. Hx of OM in foot / leg many years ago iso trauma. ESR/CRP high here. MRI total spine done and MSK IR bx on 11/17.Pending pathology and final cultures. 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 Discuss bridge to coumadin - Pain management with GLORY: tylenol 1g q6, robaxin 750mg q8, gabapentin 300mg TID (added on 11/22),Lidocaine patch; PRN: oxy 7.5mg q4 and dilaudid 0.2 IV q2 to breakthrough pain. - Bone pathology (11/17): positive for possible osteomyelitis or degenerative disease, ID recommended 6 weeks of Cef and Amp and further suppressive therapy for a year - Pending SNF placement after coumadin bridge is finalized. * Plan of Care - Fatmata Hoang RN - 11/28/2024 10:16 AM CDT Goals: Clinical Goals for the Shift: VSS, remains free from falls/injuries, pain management, aPTT in AM, restful night Long-Term Patient Centered Goal for Treatment: dc safely Summary: Problem: Lack of Knowledge Goal: Ability to develop a pain control plan will improve Outcome: Progressing Problem: Medication Goal: Satisfaction with pain management medication regimen will improve Outcome: Progressing Problem: Sensory Goal: Ability to identify factors that increase pain levels will improve while working to decrease the patient's pain levels Outcome: Progressing Problem: Coping Goal: Ability to cope will improve Outcome: Progressing Problem: Health Behavior Goal: Identification of resources available to assist in meeting health care needs will improve Outcome: Progressing Problem: Discharge Planning Goal: Understanding discharge needs will improve Outcome: Progressing Problem: Fall Risk Goal: Ability to state ways to decrease the risk of falls will improve Outcome: Progressing Goal: Will remain free from falls Outcome: Progressing Goal: Will remain free from injury from falls Outcome: Progressing * Plan of Care - Waleska Cedeño RN - 11/27/2024 1:48 PM CDT Patient's son (number on contact list) and patient are agreeable to discharge to [place], [place]. Patient can discharge to [facility] once they get the CAD pump delivered.CM will continue to follow * ECIN Note - Waleska Cedeño RN - 11/27/2024 1:44 PM CDT Images from the original note were not included. Cielo Soler NP Nurse Practitioner Infectious Disease Significant Event Signed Date of Service: 11/27/2024 1:35 PM Signed Primary team reached out to clarify if continuous infusion of ampicillin would be acceptable. We support utilizing a continuous infusion device to to equal ampicillin 8g/24H. Cielo Soler, Team 4 Infectious Diseases BOX PRINTER Please contact the Team 4 ID BOX PRINTER M-F, 7-3; or the Attending at the phone numbers in care team with any questions or concerns. After hours, please contact the ID fellow electronic tech. * Significant Event - Cielo Soler NP - 11/27/2024 1:35 PM CDT Primary team reached out to clarify if continuous infusion of ampicillin would be acceptable. We support utilizing a continuous infusion device to to equal ampicillin 8g/24H. Cielo Soler, Team 4 Infectious Diseases BOX PRINTER Please contact the Team 4 ID BOX PRINTER M-F, 7-3; or the Attending at the phone numbers in care team with any questions or concerns. After hours, please contact the ID fellow electronic tech. * Plan of Care - Waleska Cedeño RN - 11/27/2024 12:57 PM CDT [facility] in [place], [place] has accepted as long as a continuous abx device can be used to her q6h abx. Updated notes sent to Carole (funding coordinator [phone]) via [employer]. Team is aware * ECIN Note - Waleska Cedeño RN - 11/27/2024 12:54 PM CDT Images from the original note were not included. Felicia Smallwood, MARIA DE JESUS Registered Nurse Vascular Access Procedures Signed Date of Service: 11/26/2024 4:38 PM Signed Vascular Access Nurse: Procedure Note Summary of treatment provided to patient today is as follows : . Bedside Procedure Time out/Checklist (Last 4 Hours) Pre-Op Checklist Row Name 11/26/24 1628 11/26/24 1609 Patient/Chart Verification Patient ID Verified Verbal - Verbal;Armband - Allergies Verified -- Yes - Arm Bands On ID - ID;Fall;Allergies - Consents Confirmed -- Informed - Pre-op Lab/Test Results Available -- Not applicable - Blood Products Needed -- No - Blood Products Available -- Not applicable - Procedure Verification Correct Patient Yes -MF -- Correct Procedure Yes -MF -- Correct Laterality Yes - -- Correct Site Yes - -- Site Marked Not applicable - Not applicable - Pre Procedure Bedside Setup (ICU's) Correct Patient Position -- Yes - User Jackson (r) = Recorded By, (t) = Taken By, (c) = Cosigned By Initials Name Kei Scruggs RN Felicia Smallwood RN Vascular Access Documentation (Last 4 Hours) [facility] Additional Procedures Row Name 11/26/24 1628 PICC Screening Questionnaire Order written on the chart for PICC insertion or placement? Y - Information form/Consent Obtained from POA/ Family N - Are there any location restrictions? N -MF Does the patient have history of DVT or SVC syndrome? N - Does the patient currently have blood clots in chest / arms? N - Review of all IV meds/drips completed Yes - Patient allergies reviewed? Y - Labs Reviewed if applicable INR;Blood Cultures;Platelet count;Creatinine;GFR - Procedures Line Type PICC double -MF Time in 1609 -MF Time out 1654 -MF Time Calculation (min) 45 min - Vascular Access Procedures PICC line assessment;PICC line placement;PICC dressing change;Education PICC/Midline -MF Patient Response Tolerated (no change in status) -MF [REMOVED] Peripheral IV 11/13/24 20 G Left;Posterior Hand IV Properties Placement Date: 11/13/24 -CL Size (Gauge): 20 G -CL Location Orientation: Left;Posterior -CL Location: Hand -CL Technique: Anatomical landmarks -CL Insertion attempts: 1 -CL Patient Tolerance: Tolerated well -CL Removal Date: 11/26/24 -AH Removal Time: 1614AH Removal Reason : Removed by patient -AH, Accidental Peripheral IV 11/20/24 20 G Anterior;Right Forearm IV Properties Placement Date: 11/20/24 -DP Placement Time: 2029 -DP Size (Gauge): 20 G -DP LocationOrientation: Anterior;Right -DP Location: Forearm -DP Site Prep: Chlorhexidine -DP Inserted by: Beck PRETTY -DP Insertion attempts: 1 -DP Patient Tolerance: Tolerated well -DP [REMOVED] Peripheral IV 11/25/24 16 G Right Hand IV Properties Placement Date: 11/25/24 -CLA Placement Time: 1935 -CLA, created via procedure documentation Size (Gauge): 16 G -CLA Location Orientation: Right -CLA Location: Hand -CLA Site Prep: Chlorhexidine -CLA Insertion attempts: 1 - CLA Removal Date: 11/26/24 -RM Removal Time: 1409 -RM Removal Reason : Not present on admission - PICC Double Lumen 11/26/24 Non-tunneled Power #1 Red, #2 Purple, Right Basilic;Upper arm Line Properties Placement Date: 11/26/24 -MF Placement Time: 162 -MF Catheter Time Out Checklist Completed: Yes -MF Hand Hygiene Performed: Yes -MF Site Prep: Alcohol;Chlorhexidine -MF Site Prep Agent has Completely Dried Before Insertion: Yes -MF All 5 Sterile Barriers or Appropriate Barriers Used (Gloves, Gown, Cap, Mask, Large Sterile Drape): Yes -MF Local Anesthetic: Injectable -MF, 2ml of lidocain 1% CVC Type: Non-tunneled -MF Power injectable: Power -MF Lumen # 1: #1 Red, -MF Lumen # 2: #2 Purple, -MF Size (Fr): 4 -MF Orientation: Right -MF Location: Basilic;Upper arm -MF Technique: Modified seldinger;Internal stiffener stylet removed easily;Ultrasound used to locate and cannulate vei n;Standard insertion technique with peel away sheath -MF Lot #: [id number] - Expiration Date: 10/06/25 -MF Trimmed Length (cm) : 36 cm -MF Line Tip Location : Central -MF Initial Extremity Circumference (cm): 32 cm -MF Circumference Reference Point: 5 -MF Initial External Length Catheter (cm): 1 cm-MF Placement Verification: Blood return;3CG;Ultrasound -MF Line Secured by : Securement device -MFInserted by: Zach Scott RN - Assisted By: Janessa smallwood RN -HENNA Insertion attempts: 1 -MF Patient Tolerance: Tolerated well -MF Description (optional): DL power PICC -MF Site Assessment Clean and dry -MF External Length ryan (cm) 1 cm -MF Extremity Circumference (cm) 32 cm -MF Dressing Type CHG Dressing -MF Dressing Status New;Clean, dry, intact;Occlusive -MF Dressing Change Due 12/03/24 -MF Lumen #1 Status Blood return brisk; end in place;Disinfectant cap in place;Flushes easily;Saline locked -MF Lumen #2 Status Blood return brisk;Flushes easily;Saline locked;Disinfectant cap in place; end in place -MF Line Necessity Reason Reviewed With Care Team Receiving high risk meds that could damage tissue if infiltrated (e.g. vasopressors, vesicants, TPN, high destrose concentration, chemotherapy, osmolality therapy) - User Jackson (r) = Recorded By, (t) = Taken By, (c) = Cosigned By Initials Name Kei Malone RN RM Mbugua, MARIA DE JESUS Hemphill CLA, Christopher Allen, MD DP [place], [place] Bebe Salomon RN Felicia Smallwood RN Plan: Follow up: Felicia Smallwood RN * ECIN Note - Waleska Cedeño RN - 11/27/2024 12:53 PM CDT Images from the original note were not included. Cielo Soler NP Nurse Practitioner Specialty: Infectious Diseases Summary of Treatment Recommendations Non-Billable Signed Encounter Date: 11/26/2024 Related encounter: Documentation from 11/26/[address] [facility] Infectious Diseases with Cielo Soler NP Signed Infectious Diseases Infectious Diseases OPAT Sign Off Note Facility (LTAC/SNF/Rehab), Dialysis & Non-[facility] (NON-WASH U ID OPAT) Primary Team: 1) Please let us know AT LEAST 72hrs prior to discharge if disposition has changed and they will befollowed by [facility] 2) Please include this information in the discharge summary to the SNF/Rehab facility or HD unit: The following patient is being discharged from [facility] or [facility] to [facility] on IV antibiotics. Please see below for recommendations from the Infectious Diseases inpatient consult team regarding management. Routine monitoring labs and dose adjustments are the responsibility of your facility's clinical providers and are NOT being followed by [facility] ID while the patient is receiving antibiotics at your facility. IF PATIENT IS DISCHARGED FROM LTACH, SNF OR REHAB FACILITY TO HOME WITH HOME INFUSION AND HOME HEALTH PRIOR TO THE END OF ANTIBIOTICS, please call [facility] Infectious Diseases Clinic at [phone] at least 48 hours prior to discharge so the OPAT Program can assume responsibility of the patient's antimicrobial care. If the patient's follow-up appointment needs to be rescheduled or there are questions/concerns, please call the [facility] Infectious Diseases Clinic at [phone]. General Information OPAT Program: Non HAIR ID Team: Gen ID 4 Responsible ID Provider: [place] Antibiotic Indication: Bloodstream infection (BSI), Device infection (ie CIED, port, [employer]ACH[employer] shunt), Vertebral OM/Epidural abscess Antibiotics start date: 11/25/24 Antibiotics start date reason: Date of pacer removal Firm stop: No Antibiotics anticipated stop date: 01/06/25 Pathogens: enterococcus faecalis Retained Infected Hardware : yes Infected Hardware Details: mechanical heart valve, graft Recommended Clinic Follow-up: (Follow up with Dr. Powell in 3-4 weeks) Imaging Recommended Before Follow-up: No imaging Antimicrobials Antimicrobials A-L: Ceftriaxone, Ampicillin Antimicrobial Routes Ampicillin Route: Infusion Ceftriaxone Route: Infusion Parenteral Antimicrobials Ampicillin Dose: 2 g Ampicillin Frequency: Every 6 hours Ampicillin More Info: 2g IV Q6H for CrCL 10-50 Ceftriaxone Dose: 2 g Ceftriaxone Frequency: Every 12 hours Labs Labs - Weekly Labs: CBC with diff and platelet, CMP Labs - At 3 Weeks and 6 Weeks Labs: ESR/CRP Fax Labs To: [facility] ID Clinic ([phone]) Call For a Change in Clinical Status, Critical/Abnormal Results, or Order Verification: [facility] ID Clinic ([phone]) OPAT Summary of Consult Summary of Consult: The patient is a 69 y.o. female with PMH of CAD s/p CABG, AVR 2018, PPM 2015, HTN, Afib, mitral regurg, CHF, CKD, HLD, L1 compression fracture s/p kyphoplasty, who presented with concern for thoracic OM. Patient has chronic intermittent mid thoracic back pain that worsened in Aug 2024, associated with generalized weakness, night sweats, weight loss. No abdominal pain, GI or urinary symptoms. She was initially evaluated at OSH and PCP who suspected kidney stone. Ucx 08/21 grewKlebsiella pneumoniae and was treated for possible UTI with cipro for 7 days without improvement ofpain. CT AP 08/22 was performed which was unremarkable. Given persistent and worsening pain she was t hen seen by NSGY on 11/13 and review of OSH CT T/L spine wo contrast 11/10 showed new osteolysis, cortical irregularities,subcortical sclerosis and distension of the intervertebral disc at T10-11 with mild prominent prevertebral soft tissues, concerning for discitis osteophyte complex. She was recommended to present to the ED. ID was consulted on 11/14 for antibiotic recommendations. Son reports that when she had her surgery on 2021, she had a big pus ball. Did further investigation and found on 11/22/2021 patient had a redo sternotomy, ascending aortic replacement, mechanical composite root replacement, LVOT/Root enlargement with photofix pericardial patch, and IABP insertionto L fem arteyr. Operative note comments on thick fluid that appeared purulent but gram stain was negative. Surgery performed with Dr. Moore. Operative cultures labeled aortic wound, mediastinum wound, valve panus, and transverse sinus all finalized with NG and no organisms seen. Post operative blood cultures on 11/25 with NG. BAL 11/29 and urine cultures 12/03 with yeast. Tracheal aspirate 12/03 with moraxella catarrhalis. Post operative course was complicated by hemorrhagic shock requiring multiple transfusions and chest washouts on 11/23, 11/24, and 11/25. She developed new, severe MR post-operatively and subsequently underwent MVr on 11/28 and VA-ECMO was converted to R-ECMO. The oxygenator was weaned and removed on 12/01 and the RVAD was removed 12/07. Patient completed a 14 days of ceftriaxone during the hospitalization. Results: -Blood cultures 11/13: enterococcus faecalis -ERS 11/13: 82 -CRP 11/13: 17 -Tte 11/14: Wire noted in R heart. MV repair with annuloplasty rind and mid residual MV insufficiency. Mechanical AV, mild TV regurgitation -Blood cultures 11/15: NG -MRI 11/17: T10-T11 vertebral bodies and disc space with cortical erosion and paraspinal soft tissueedema, concerning for osteomyelitis discitis at this level -T10-T11 aspirate 11/17: NG -T10-T11 bone bx 11/17: NG -Pathology 11/17: histologic findings are not entirely specific. The differential diagnosis includesprior or ongoing osteomyelitis versus a reactive/degenerative process -Generator device 11/25: NGTD -Atrial lead 11/25: NGTD -Ventricular lead right 11/25: NGTD -LV lead 11/25: NGTD In the ED she was afebrile and HDS. Labs without leukocytosis, ESR 82 and CRP 17. Bcx on 11/13 growing E faecalis. She was started on ampicillin and ceftriaxone. NSGY consulted and recommended MRI spine and IR biopsy. MRI obtained 11/17 reporting T10-T11 vertebral bodies and disc space with cortical er osion and paraspinal soft tissue edema, concerning for osteomyelitis discitis at this level. Patient went to IR with aspiration and bone bx obtained. Cultures finalized with NG. Pathology reporting histologic findings are not entirely specific. The differential diagnosis includes prior or ongoing osteomyelitis versus a reactive/degenerative process . TTE 11/13 showed MV repair with annuloplasty ring, mechanical AV, wire noted in R heart. Patient underwent pacer removal on 11/25. 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 Given patient has retained prosthetic heart valves and graft, she would benefit from discussion of suppression for a year. Cosigned by: Peter Sheehan MD at 11/26/2024 5:58 PM Revision History Routing History * Plan of Care - Renita Back RN - 11/27/2024 9:54 AM CDT With change in dc plan due to IV Abx cost, will remove from [facility]. Renita/Nova Back RN [employer] Driver, [facility] home care [phone] * Initial Assessments - Nae Cerda MSW - 11/27/2024 9:08 AM CDT Social Work Assessment Clinical Dx: Chronic midline thoracic back pain Past Medical History: Date of last inpatient admission: Previous admit date: 11/22/2021 Number of inpatient admissions in past year: 1 Reason for Current Hospitalization (Pt/Caregiver Stated): Back pain (11/27/24854) Patient Information: Information Obtained From: Patient Marital Status: Does Pt have Legal Guardian, Surrogate Decision Maker or Healthcare Agent? : Yes-DPOA DPOA Name/Phone: tesha Multani- [phone] Employment Status: Retired Payor Source: Medicare, Supplemental Race: White/ Ethnicity: Non- Sexual Orientation : Not assessed Gender Identity: Female Service : None (11/27/24854) Current Situation: Current Situation Living Arrangements: Family members Type of Residence: Private residence Income: SSD/SSI Education Level : College Courses How do you Pay for Medication: Insurance Current Transportation: Own vehicle, Family/friends (11/27/24854) Legal History: Legal History Legal Information : No legal issues (11/27/24854) Support Systems and Spirituality: Support Systems and Spirituality Support System: Children Children Name/Contact Information: tesha Multani- [phone]; Marisabel Cisneros, [id number]- [phone]; Laura Jay- daughter, Participation from Patient's Support System: Patient lives with son and [id number]. Family Perspective: RAYA Do you have a Mu-Ism Preference or Affiliation?: No Are there any Mu-Ism Practices that are important to maintain while admitted?: No Do you have Cultural Factors that are important to you?: No Description of Childhood: Not assessed History of physical abuse? : No History of physically abusing others? : No History of sexual abuse?: No History of sexually abusing others? : No History of Mental/Emotional Abuse? : No (11/27/24854) Strengths, Assets, Liabilities and Stressors: Strengths, Assets, Liabilities, and Stressors Strengths (Must Choose Two): Knowledge of medications, Access to housing/residential stability, Interpersonal relationships and supports,i.e., family, friends, peers, Managing surrounding demands andopportunities Hope and Strength during Difficult Times: I'm a big believer in 'it is what it is'. Does Pt have access to Employee Assistance Program: No Patient Barriers : Poor physical health Current Stressors: Chronic illness (11/27/24854) SDOH Transportation Needs: No Transportation Needs (11/27/2024) PRAPARE - Transportation Lack of Transportation (Medical): No Lack of Transportation (Non-Medical): No Financial Resource Strain: Low Risk (11/27/2024) Overall Financial Resource Strain (CARDIA) Difficulty of Paying Living Expenses: Not hard at all Housing Stability: Low Risk (11/27/2024) Housing Stability Vital Sign Unable to Pay for Housing in the Last Year: No Number of Times Moved in the Last Year: 0 Homeless in the Last Year: No Social Connections: Socially Isolated (11/27/2024) Social Connection and Isolation Panel [NHANES] Frequency of Communication with Friends and Family: More than three times a week Frequency of Social Gatherings with Friends and Family: More than three times a week Attends [employer]-Is[employer] Services: Never Active Member of Clubs or Organizations: No Attends Club or Organization Meetings: Never Marital Status: Food Insecurity: No Food Insecurity (11/27/2024) Hunger Vital Sign Worried About Running Out of Food in the Last Year: Never true Ran Out of Food in the Last Year: Never true Tobacco Use: Medium Risk (11/25/2024) Patient History Smoking Tobacco Use: Former Smokeless Tobacco Use: Never Passive Exposure: Past Alcohol Use: Not At Risk (11/25/2024) AUDIT-C Frequency of Alcohol Consumption: Never Average Number of Drinks: Patient does not drink Frequency of Binge Drinking: Never PHQ Screening Over the last 2 weeks, how often have you been bothered by any of the following problems? Little Interest or Pleasure in Doing Things: Not at all Feeling Down, Depressed, or Hopeless: Not at all PHQ-2 Total Score (If total score is 3 or more points, staff should administer the PHQ-9): 0 Over the past 2 weeks, how often have you been bothered by any of the following problems? Little Interest or Pleasure in Doing Things: Not at all Feeling Down, Depressed, or Hopeless: Not at all PHQ-2 Total Score (If total score is 3 or more points, staff should administer the PHQ-9): 0 Trouble Falling or Staying Asleep, or Sleeping too Much: Nearly every day Feeling Tired or Having Little Energy: Nearly every day Poor Appetite or Overeating: Not at all Feeling Bad About Yourself - or That You are a Failure or Have Let Yourself or Your Family Down: Not at all Trouble Concentrating on Things, Such as Reading the Newspaper or Watching Television: Not at all Moving or Speaking so Slowly That Other People Could Have Noticed, or the Opposite - Being so Fidgety or Restless That You Have Been Moving Around a lot More Than Usual: Not at all Thoughts That You Would be Better off , or of Hurting Yourself in Some Way: Not at all PHQ-9 Total Score: 6 If you checked off any problems, how difficult have these problems made it for you to do your work,take care of things at home, or get along with other people?: Not difficult at all Substance Delivery Method Questions Responses Method of Use Ingestion Current/Former Smokers - Passive Exposure Questions Responses Current/Former Smoker - passive exposure (e.g., household member smoking)? Yes E-Cigarette/Vaping Questions Responses E-cigarette/Vaping Use Never User Vaping counseling given No Passive Exposure No E-Cigarette/Vaping Substances Questions Responses Nicotine No THC No CBD No Flavoring No Unknown substances No E-Cigarette/Vaping Devices Questions Responses Disposable No Pre-filled or Refillable Cartridge No Refillable Tank No Pre-filled Pod No Substance Abuse, Mental Health, and Trauma History: Chemical Dependency, Mental Health & Trauma History Chemical Dependency: Patient reports no alcohol or drug use. Mental Health: Patient is diagnosed with depression, for which she is prescribed psychotropic medication. She assesses the medication as very effective in managing symptoms. (11/27/24854) Risk to Self and Others: Risk to Self and Others Violence risk to self in past 6 months? : No Self Harm/Suicidal Ideation Plan: No Previous Self Harm/Suicidal Attempts: No Violence risk to others in past 6 months? : No Any lifetime risk of violence to others? : No Current Plans to Harm Another: No (11/27/24854) Impressions and Recommendations: Social Work consulted for high risk readmission (26%). Social Work met with patient at bedside. Social Work discussed SDOH (finances, food, transportation, housing, utilities, social supports, and mental health), and the patient does not have any concerns with SDOH resources at this time. The patient lives at [address] [place] [address] and has support from David Vernon, son- [phone]; Marisabel Cisneros, mjaisqeo-dp-rjo- [phone]; Laura Jay- daughter, . Advance Directive: Yes On file: Yes Power of Pressing Machine Operator Name: David Cisneros Relationship: Son 1st alternate- Marisabel Cisneros, [id number]-uz-vth- [phone] There are no further social work needs identified at this time. Social Work to remain available should additional needs arise. Campus Receptionist to follow for discharge planning needs. ADELINA Steen * Assessment & Plan Note - Lia Hernandez MD - 11/27/2024 9:07 AM CDTAssociated Problem(s): Chronic midline thoracic back pain # C/f thoracic discitis / osteomyelitis Chronic back pain since 08/2024. Has had multiple CT scans for workup. Most recent CT thoracic spineshowed c/f discitis osteophyte complex at T10-11, saw NSGY as o/p, told to come to ED for further workup. Endorsing night sweats, 20 lb weight loss, intermittent BUE tingling. No incontinence. No IVDU. Hx of kyphoplasty few years ago to d/t L compression fracture. Hx of OM in foot / leg many years ago iso trauma. ESR/CRP high here. MRI total spine done and MSK IR bx on 11/17.Pending pathology and final cultures. 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 Discuss bridge to coumadin - Pain management with GLORY: tylenol 1g q6, robaxin 750mg q8, gabapentin 300mg TID (added on 11/22),Lidocaine patch; PRN: oxy 7.5mg q4 and dilaudid 0.2 IV q2 to breakthrough pain. - Bone pathology (11/17): positive for possible osteomyelitis or degenerative disease, ID recommended 6 weeks of Cef and Amp and further suppressive therapy for a year * Assessment & Plan Note - Lia Hernandez MD - 11/27/2024 9:07 AM CDTAssociated Problem(s): Bacteremia due to Enterococcus #Vegetation on pacemaker leads 1/2 BCx + E. faecalis on 11/13. Unclear source. 20lb weight loss over the last few months.Cardiac surgeon that follow patient was contacted (Dr. Adal Moore) and agree with the plan. TTE on 11/14 lVEF 67% no thrombus, mechanical mitral valve w/o dysfunction. NEVAEH completed on 11/19, possible vegetation on pacemaker leads. Consulted CTS and pacemaker removal on 11/25 at 14:50 without complications. - Bcx negative on 11/15 and 11/16 - Started Amp (11/14-) and Ceftriaxone (11/14 -) - MSK Bx with IR on 11/17, culture partial negative, Bx: osteomyelitis - Pacemaker removed on 11/25, pending cultures - ID recommended 6 weeks of Cef and Amp and further suppressive therapy for a year * Assessment & Plan Note - Lia Hernandez MD - 11/27/2024 9:07 AM CDTAssociated Problem(s): Pacemaker (Resolved 11/27/2024) #AVR (inspiris resilia, 2019) #Pacemaker ([employer] 2015) - REMOVED on 11/25 #pAF on Coumadin, now on heparin drip until pacemaker removal #LVEF 67% (11/14/24) Hx severe s/p AVR placement in and replacement of mechanical AV in 2021. Previously on ECMO reuqiring Mitral valve repair. 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, bridge to coumadin started on 11/26 - GDMT: on hold coreg (hypotension) and spironolactone (worsening of kidney function and hypotension) * Assessment & Plan Note - Lia Hernandez MD - 11/27/2024 9:07 AM CDTAssociated Problem(s): Osteomyelitis of thoracic spine (HCC) See above * Assessment & Plan Note - Lia Hernandez MD - 11/27/2024 9:07 AM CDTAssociated Problem(s): Pacemaker infection See above - Removal of pacemaker on 11/25 - Continue antibiotic, followed by ID - Plan discharge considering antibiotic therapy for 6 weeks and suppression for a year * Assessment & Plan Note - Lia Hernandez MD - 11/27/2024 9:07 AM CDTAssociated Problem(s): HIT suspected - tested NEGATIVE Matias found with decrease of > 30% in her baseline platelets (204 from admission to 140 last lab) and down trending HB with no apparent bleeding (8.8 from adcmission to 6.6 last lab) - HIT antibodies on 11/15 came back positive - Heparin (11/11 - 11/25) -> Bival started on 11/25 - Started bridge to coumadin on 11/26 * Medical Student - Annalise Rankin - 11/27/2024 8:37 AM CDT Medicine Firm Daily Progress Subjective SUBJECTIVE Kendal Cisneros is a 69 y.o. female with a history of CAD s/p CABG (2021), AVR (s/p mechanical valve), MR (s/p repair), pAF on warfarin, pacemaker placement, HFpEF, pHTN, CKD3, HLD, and TUD admitted for thoracic diskitis/osteomyelitis and Enterococci bacteremia. Interval History: -PICC line placed in RUE -Bival to warfarin bridge started yesterday PM. Patient started on home regiment of 1.5/3 mg alternating days -Pain PRNs as below -2 oxy Subjective: -Patient reports increased L chest pain over surgical site. Denies pressure-like pain, palpitations, shortness of breath. -Further notes mid back pain unchanged from previous days Objective OBJECTIVE Scheduled Medications: acetaminophen, 1,000 mg, oral, Q6H GLORY ampicillin, 2,000 mg, intravenous, Q6H GLORY [Held by Provider] carvediloL, 12.5 mg, oral, BID with meals (bkfst, dinner) cefTRIAXone, 2,000 mg, intravenous, Q12H GLORY famotidine, 40 mg, oral, Daily fluticasone propionate, 2 spray, each nostril, Daily xvxkypkegjq-wmspjobpa-dalnhqwn, 1 puff, inhalation, Daily gabapentin, 300 mg, oral, TID Lactated Ringer's, 500 mL, intravenous, Once lidocaine, 1 patch, transdermal, Q24H lidocaine, 1-2 mL, subcutaneous, Once methocarbamoL, 750 mg, oral, TID rosuvastatin, 40 mg, oral, Daily sertraline, 100 mg, oral, Daily sodium chloride 0.9%, 0.5-20 mL, intra-catheter, Q8H GLORY sodium chloride 0.9%, 10-40 mL, intra-catheter, Q12H GLORY [Held by Provider] spironolactone, 25 mg, oral, Daily traZODone, 100 mg, oral, Nightly warfarin, 1.5 mg, oral, Once per day on Sunday warfarin, 3 mg, oral, Once per day on Sunday Continuous Medications: bivalirudin, 0-3 mg/kg/hr, Last Rate: 0.08 mg/kg/hr (11/26/24 1717) sodium chloride 0.9%, 30 mL/hr, Last Rate: 30 mL/hr (11/25/24 1459) sodium chloride 0.9%, 30 mL/hr PRN Medications: albuterol HFA sodium chloride 0.9% HYDROmorphone hydrOXYzine LORazepam ondansetron ODT OR ondansetron oxyCODONE perflutren lipid (DEFINITY) 1.5 mL in sodium chloride 0.9% 10 mL syringe polyethylene glycol prochlorperazine sodium chloride 0.9% sodium chloride 0.9% Vitals: Most Recent : Vitals: 11/27/24 0810 BP: 106/72 Pulse: 76 Resp: 18 Temp: 36.6 ??C (97.9 ??F) SpO2: 93% 24hr Min/Max: Temp Min: 36.6 ??C (97.9 ??F) Max: 37.1 ??C (98.8 ??F) Pulse Min: 72 Max: 76 BP Min: 106/72 Max: 108/66 Resp Min: 18 Max: 18 SpO2 Min: 93 % Max: 94 % I/O: I/O last 2 completed shifts: In: 50 [I.V.:50] Out: - No intake/output data recorded. Physical Exam: General: Well-developed, well-nourished, appears stated age, NAD HENT: NCAT. Conjunctivae are normal. No scleral icterus. Cardiovascular: RRR. S2 systolic click. Noperipheral edema Pulmonary/Chest: no respiratory distress. CTAB. No w/r/r Abdomen: soft, +BS. NTND. No rebound tenderness, no guarding Back: Tender over lower thoracic processes. Skin: warm and dry, no observable rashes. R chest pacemaker removal site dry, dried blood over skinincision. Bruising on superior aspect, no drainage, erythema, or swelling. Extremities: 2+ radial, DP pulses. PICC line in place in RUE. Neuro: A&Ox4, no focal neurologic deficits Psych: Normal mood and affect Lab/Radiology/Diagnostic Review: Recent Results (from the past 24 hours) aPTT Collection Time: 11/26/24 9:28 AM Result Value Ref Range aPTT 50 (H) 28 - 38 sec aPTT Collection Time: 11/26/24 12:02 PM Result Value Ref Range aPTT 53 (H) 28 - 38 sec Protime-INR Collection Time: 11/26/24 7:52 PM Result Value Ref Range PT 18.0 (H) 9.7 - 13.0 sec INR 1.65 (H) 0.90 - 1.20 Basic metabolic panel Collection Time: 11/26/24 7:52 PM Result Value Ref Range Sodium 141 135 - 145 mmol/L Potassium, pl 4.3 3.3 - 4.9 mmol/L Chloride 107 97 - 110 mmol/L CO2 25 22 - 32 mmol/L Anion gap 9 2 - 15 mmol/L BUN 14 6 - 25 mg/dL Creatinine 1.75 (H) 0.60 - 1.10 mg/dL Glucose 108 70 - 199 mg/dL Calcium 8.4 (L) 8.5 - 10.3 mg/dL CBC with auto differential Collection Time: 11/26/24 7:52 PM Result Value Ref Range WBC 6.40 3.80 - 9.90 K/cumm Hgb 7.7 (L) 11.9 - 15.5 g/dL Hct 25.0 (L) 35.6 - 45.5 % Plt 173 150 - 400 K/cumm MPV 11.0 9.1 - 12.3 fL RBC 2.84 (L) 3.90 - 5.20 M/cumm MCV 88.0 81.3 - 96.4 fL MCH 27.1 27.1 - 33.3 pg MCHC 30.8 (L) 32.3 - 35.7 g/dL RDW CV 17.0 (H) 11.1 - 14.9 % RDW SD 53.6 (H) 35.7 - 48.1 fL NRBC abs 0.00 0.00 - 0.01 K/cumm Differential, auto Collection Time: 11/26/24 7:52 PM Result Value Ref Range Neutrophil abs 4.75 1.50 - 6.50 K/cumm Imm gran abs 0.03 0.00 - 0.10 K/cumm Lymphocyte abs 0.82 0.80 - 3.30 K/cumm Monocyte abs 0.50 0.20 - 0.80 K/cumm Eosinophil abs 0.24 0.00 - 0.50 K/cumm Basophil abs 0.06 0.00 - 0.10 K/cumm Neutrophil pct 74.2 % Imm gran pct 0.5 % Lymphocyte pct 12.8 % Monocyte pct 7.8 % Eosinophil pct 3.8 % Basophil pct 0.9 % eGFR Collection Time: 11/26/24 7:52 PM Result Value Ref Range eGFR 32 (L) >=60 mL/min/1.73 m2 aPTT Collection Time: 11/27/24 5:13 AM Result Value Ref Range aPTT 52 (H) 28 - 38 sec I have reviewed the above laboratory results. Imaging Results: No results found. Assessment/Plan ASSESSMENT & PLAN Kendal Cisneros is a 69 y.o. female with a history of CAD s/p CABG (2021), AVR (s/p mechanical valve), MR (s/p repair), pAF on warfarin, pacemaker placement, HFpEF, pHTN, CKD3, HLD, and TUD admitted for thoracic diskitis/osteomyelitis and Enterococci bacteremia. #Enterococci Bacteremia 1/ BCx returned positive for Enterococci fecaelis within 16 hrs on 11/13/24. Pt did have any fevers but c/f osteomyelitis. Bacteremia was of unknown source, with subsequent 11/13 TTE unremarkable for a source. 11/15 and 11/16 repeat blood cultures were negative for growth. ID following, and per their recs, stopped repeat blood cultures. NEVAEH 11/19 for further evaluation of source identification showed mobile linear echodensity attach to device lead in the right atrium (DDx includes thrombus vs. vegetation). Cannot rule out lead-related infective endocarditis. Pacemaker removal uncomplicated on 11/25, patient given 1 unit of RBCs before for Hgb 6.8. Outpatient antibiotic plan for 6 weeks of antibiotics post pacemaker removal (11/25-01/06), with discussion of suppression for a year. PICC line placed. Pt will be discharged to facility given that patient's insurance does not cover home infusion (outpatient clinic antibiotics not possible as patient needs Q6 ampicillin.) -Pending SNF placement referrals from . -Continuing Ampicillin 2g Q6 and ceftriaxone 2g Q12 (11/14-12/26). -ESR and CRP 3 (12/05) and 6 weeks after antibiotics started #Thoracic back pain c/f osteomyelitis Pt has had worsening thoracic back pain since Aug 2024, worsening with movement. Most recent CT thoracic spine showed new osteolysis, cortical irregularities, subcortical sclerosis and distention ofthe intervertebral disc at T10-T11, concerning for diskitis of the osteophyte complex. BUE tingling, but no incontinence, numbness, or lower extremity paresthesia. History notable for kyphoplasty [id number] secondary to L compression fracture and osteomyelitis in foot. Neurosurgery recommended no surgical intervention. CRP and ESR elevated on admission to 17 and 82 respectively. Total spine MRI 11/17 (EP c/s stated that pt's pacemaker is compatible) read abnormal signal within the T10-T11 vertebral bodies and disc space with cortical erosion and paraspinal soft tissue edema, concerning for osteomyelitis discitis at this level. Biopsy on 11/17 negative for growth, path notable for medullary fibrosis, hemosiderin deposition, and woven bone formation, nonspecific for osteomyelitis vs reactive/degenerative process. New L sided back pain on 11/20 likely MSK; reproducible with movement and mild. -Pain management regiment: Tylenol 1000 mg Q6, Gabapentin 400 mg TID, Robaxin 750 mg TID scheduled;Dilaudid 0.2 g IV Q2 and oxycodone 7.5 mg oral Q4 PRN for breakthrough pain. -Lidocaine patch PRN for MSK pain. #AVR, MR #pAF on Warfarin at home #HFpEF Pt switched to heparin ggt from Warfarin for upcoming biopsy. Platelets 142 on 11/25 from 170, HIT antibodies positive. PTT therapeutic at 63 before pacemaker removal. Discontinued heparin given positive HIT antibodies and transitioned to bival post-procedure 11/25. -Bridging from bival to warfarin with pt's prior home regiment (1.5 mg/3 mg alternating days) with serial INRs. Goal 2-3 per pharmacy. -Holding home coreg and lyle as patient's blood pressures have been low on admission #Thromboyctopenia Plts 200s on admission, 142 prior to pacemaker removal on 11/25. 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 -F/u serotonin assay #CAD s/p RCA CABG #HLD - Home crestor 40 daily #Mood disorder - Home sertraline 100 daily, trazodone 50 nightly #GERD - Home famotidine #COPD Home regimen: albuterol, breztri, flonase - Flonase, trelegy ellipta - PRN albuterol Code Status: Full Code Diet: Adult Diet Regular, Restricted; Vitamin K Consistent DVT Prophylaxis: Bival (transitioning to warfarin) Access: PICC line Dispo: LTAC pending warfarin bridge Annalise Rankin, medical student Cosigned by Ann Bangura MD at 11/27/2024 4:36 PM CDT * Plan of Care - Barbi Avitia RN - 11/27/2024 6:01 AM CDT Problem: Lack of Knowledge Goal: Ability to develop a pain control plan will improve Outcome: Progressing Problem: Medication Goal: Satisfaction with pain management medication regimen will improve Outcome: Progressing Problem: Sensory Goal: Ability to identify factors that increase pain levels will improve while working to decrease the patient's pain levels Outcome: Progressing Problem: Coping Goal: Ability to cope will improve Outcome: Progressing Problem: Health Behavior Goal: Identification of resources available to assist in meeting health care needs will improve Outcome: Progressing Problem: Discharge Planning Goal: Understanding discharge needs will improve Outcome: Progressing Problem: Fall Risk Goal: Ability to state ways to decrease the risk of falls will improve Outcome: Progressing Goal: Will remain free from falls Outcome: Progressing Goal: Will remain free from injury from falls Outcome: Progressing Goals: Clinical Goals for the Shift: VSS, remains free from falls/injuries, pain management, aPTT q 6 hours, restful night Material Combiner Patient Centered Goal for Treatment: dc safely Summary: VSS Remains free from falls/injuries AOx4 Pain managed with scheduled dose regimen, refer to MAR aPTT drawn at 0500 per Bivalrudin orders. aPTT therapeutic and rate remains no change (per orders). Patient resting in bed, call light within reach * Medical Student - Annalise Rankin - 11/26/2024 3:18 PM CDT Medicine Firm Daily Progress Subjective SUBJECTIVE Kendal Cisneros is a 69 y.o. female with a history of CAD s/p CABG (2021), AVR (s/p mechanical valve), MR (s/p repair), pAF on warfarin, pacemaker placement, HFpEF, pHTN, CKD3, HLD, and TUD who presented with c/f thoracic diskitis/osteomyelitis and found Enterococci bacteremia . Interval History: -Pt had pacemaker removal with Ct surgery without acute complications overnight -Pain PRNs as below -1 Tylenol overnight Subjective: -5/10 back pain and 5/10 pain over R chest surgical site -no fevers, chills, palpitations, edema, nausea, vomiting Objective OBJECTIVE Scheduled Medications: acetaminophen, 1,000 mg, oral, Q6H GLORY ampicillin, 2,000 mg, intravenous, Q6H GLORY [Held by Provider] carvediloL, 12.5 mg, oral, BID with meals (bkfst, dinner) cefTRIAXone, 2,000 mg, intravenous, Q12H GLORY famotidine, 40 mg, oral, Daily fluticasone propionate, 2 spray, each nostril, Daily vpwismzhdsq-nbuvzmfmb-bazprebw, 1 puff, inhalation, Daily gabapentin, 300 mg, oral, TID lidocaine, 1 patch, transdermal, Q24H lidocaine, 1-2 mL, subcutaneous, Once methocarbamoL, 750 mg, oral, TID rosuvastatin, 40 mg, oral, Daily sertraline, 100 mg, oral, Daily sodium chloride 0.9%, 0.5-20 mL, intra-catheter, Q8H GLORY sodium chloride 0.9%, 10-40 mL, intra-catheter, Q12H GLORY [Held by Provider] spironolactone, 25 mg, oral, Daily traZODone, 100 mg, oral, Nightly Continuous Medications: bivalirudin, 0-3 mg/kg/hr, Last Rate: 0.08 mg/kg/hr (11/26/24 0720) sodium chloride 0.9%, 30 mL/hr, Last Rate: 30 mL/hr (11/25/24 1459) sodium chloride 0.9%, 30 mL/hr PRN Medications: albuterol HFA sodium chloride 0.9% heparin OR heparin HYDROmorphone hydrOXYzine hydrOXYzine LORazepam ondansetron ODT OR ondansetron oxyCODONE perflutren lipid (DEFINITY) 1.5 mL in sodium chloride 0.9% 10 mL syringe polyethylene glycol prochlorperazine sodium chloride 0.9% sodium chloride 0.9% Vitals: Most Recent : Vitals: 11/26/24 0811 BP: 121/70 Pulse: 72 Resp: 18 Temp: 36.5 ??C (97.7 ??F) SpO2: 93% 24hr Min/Max: Temp Min: 36 ??C (96.8 ??F) Max: 37 ??C (98.6 ??F) Pulse Min: 67 Max: 102 BP Min: 114/78 Max: 161/100 Resp Min: 5 Max: 27 SpO2 Min: 87 % Max: 100 % I/O: I/O last 2 completed shifts: In: 1510 [I.V.:10; Blood:350; IV Piggyback:1150] Out: 355 [Urine:325; Blood:30] No intake/output data recorded. Physical Exam: General: Well-developed, well-nourished, appears stated age, NAD HENT: NCAT. Conjunctivae are normal. No scleral icterus. Neck: Neck supple. No thyromegaly. No JVD Cardiovascular: RRR. Midsystolic click. No peripheral edema Pulmonary/Chest: no respiratory distress. No w/r/r. L chest surgical site bandaged. Abdomen: soft, +BS. NTND. No rebound tenderness, no guarding Back: Tenderness along lower thoracic spinous processes; and L lower back. Skin: warm and dry, no observable rashes. Bruising on BLE. Neuro: A&Ox4, no gross neurologic deficits Psych: Normal mood and affect Lab/Radiology/Diagnostic Review: Recent Results (from the past 24 hours) NEVAEH Add-On For OR Collection Time: 11/25/24 6:37 PM Result Value Ref Range BSA 1.66 m2 Aerobic culture and gram stain Hardware Heart Collection Time: 11/25/24 8:09 PM Specimen: Heart; Hardware Result Value Ref Range Direct Specimen Exam Stain: No polymorphonuclear leukocytes seen. No organisms seen. Report Preliminary Report: No growth to date. Aerobic culture and gram stain Hardware Heart Collection Time: 11/25/24 8:13 PM Specimen: Heart; Hardware Result Value Ref Range Direct Specimen Exam Stain: Rare polymorphonuclear leukocytes seen. No organisms seen. Report Preliminary Report: No growth to date. Aerobic culture and gram stain Hardware Heart Collection Time: 11/25/24 8:17 PM Specimen: Heart; Hardware Result Value Ref Range Direct Specimen Exam Stain: Rare polymorphonuclear leukocytes seen. No organisms seen. Report Preliminary Report: No growth to date. POC Blood Gas and Chemistries, Arterial - Collection Time: 11/25/24 8:27 PM Result Value Ref Range pH, Art POC 7.33 (L) 7.35 - 7.45 pCO2, Art POC 40 35 - 45 mmHg pO2, Art POC 168 (H) 83 - 108 mmHg Na, POC 141 135 - 145 mmol/L K POC 4.0 3.3 - 4.9 mmol/L Cl, POC 114 (H) 97 - 110 mmol/L Ionized Ca, POC 4.78 4.50 - 5.10 mg/dL Glucose, POC 83 70 - 199 mg/dL Lactate, POC 0.7 0.7 - 2.0 mmol/L SO2 (satya) arterial 100 (H) 90 - 95 % Base excess, POC -4.5 mmol/L HCO3, Art POC 21 20 - 30 mmol/L Hct, POC 26.0 (L) 36.3 - 45.3 % Total Hb, POC 8.5 (L) 11.9 - 15.5 g/dL Aerobic culture and gram stain Hardware Heart Collection Time: 11/25/24 8:28 PM Specimen: Heart; Hardware Result Value Ref Range Direct Specimen Exam Stain: No polymorphonuclear leukocytes seen. No organisms seen. Report Preliminary Report: No growth to date. Basic metabolic panel Collection Time: 11/25/24 9:52 PM Result Value Ref Range Sodium 145 135 - 145 mmol/L Potassium, pl 3.9 3.3 - 4.9 mmol/L Chloride 114 (H) 97 - 110 mmol/L CO2 21 (L) 22 - 32 mmol/L Anion gap 10 2 - 15 mmol/L BUN 9 6 - 25 mg/dL Creatinine 1.22 (H) 0.60 - 1.10 mg/dL Glucose 74 70 - 199 mg/dL Calcium 8.0 (L) 8.5 - 10.3 mg/dL Magnesium Collection Time: 11/25/24 9:52 PM Result Value Ref Range Magnesium 2.0 1.4 - 2.5 mg/dL Phosphorus Collection Time: 11/25/24 9:52 PM Result Value Ref Range Phosphorus, pl 3.2 2.3 - 4.5 mg/dL eGFR Collection Time: 11/25/24 9:52 PM Result Value Ref Range eGFR 49 (L) >=60 mL/min/1.73 m2 Basic metabolic panel Collection Time: 11/26/24 12:42 AM Result Value Ref Range Sodium 142 135 - 145 mmol/L Potassium, pl 4.3 3.3 - 4.9 mmol/L Chloride 110 97 - 110 mmol/L CO2 23 22 - 32 mmol/L Anion gap 9 2 - 15 mmol/L BUN 10 6 - 25 mg/dL Creatinine 1.43 (H) 0.60 - 1.10 mg/dL Glucose 70 70 - 199 mg/dL Calcium 8.6 8.5 - 10.3 mg/dL CBC with auto differential Collection Time: 11/26/24 12:42 AM Result Value Ref Range WBC 7.76 3.80 - 9.90 K/cumm Hgb 8.2 (L) 11.9 - 15.5 g/dL Hct 26.7 (L) 35.6 - 45.5 % Plt 162 150 - 400 K/cumm MPV 11.2 9.1 - 12.3 fL RBC 3.04 (L) 3.90 - 5.20 M/cumm MCV 87.8 81.3 - 96.4 fL MCH 27.0 (L) 27.1 - 33.3 pg MCHC 30.7 (L) 32.3 - 35.7 g/dL RDW CV 16.7 (H) 11.1 - 14.9 % RDW SD 53.0 (H) 35.7 - 48.1 fL NRBC abs 0.00 0.00 - 0.01 K/cumm Protime-INR Collection Time: 11/26/24 12:42 AM Result Value Ref Range PT 13.1 (H) 9.7 - 13.0 sec INR 1.21 (H) 0.90 - 1.20 aPTT Collection Time: 11/26/24 12:42 AM Result Value Ref Range aPTT 25 (L) 28 - 38 sec Differential, auto Collection Time: 11/26/24 12:42 AM Result Value Ref Range Neutrophil abs 6.36 1.50 - 6.50 K/cumm Imm gran abs 0.03 0.00 - 0.10 K/cumm Lymphocyte abs 0.72 (L) 0.80 - 3.30 K/cumm Monocyte abs 0.45 0.20 - 0.80 K/cumm Eosinophil abs 0.14 0.00 - 0.50 K/cumm Basophil abs 0.06 0.00 - 0.10 K/cumm Neutrophil pct 81.9 % Imm gran pct 0.4 % Lymphocyte pct 9.3 % Monocyte pct 5.8 % Eosinophil pct 1.8 % Basophil pct 0.8 % eGFR Collection Time: 11/26/24 12:42 AM Result Value Ref Range eGFR 40 (L) >=60 mL/min/1.73 m2 Hepatic function panel Collection Time: 11/26/24 12:42 AM Result Value Ref Range Bilirubin, total <0.2 0.1 - 1.2 mg/dL Bilirubin, direct <0.2 0.1 - 0.3 mg/dL Protein, pl 6.7 6.5 - 8.5 g/dL Albumin 3.3 (L) 3.5 - 5.0 g/dL Alk phos 91 40 - 130 Units/L ALT 16 7 - 45 Units/L AST 30 10 - 45 Units/L aPTT Collection Time: 11/26/24 4:03 AM Result Value Ref Range aPTT 42 (H) 28 - 38 sec aPTT Collection Time: 11/26/24 6:47 AM Result Value Ref Range aPTT 43 (H) 28 - 38 sec aPTT Collection Time: 11/26/24 9:28 AM Result Value Ref Range aPTT 50 (H) 28 - 38 sec aPTT Collection Time: 11/26/24 12:02 PM Result Value Ref Range aPTT 53 (H) 28 - 38 sec I have reviewed the above laboratory results. Imaging Results: No results found. Assessment/Plan ASSESSMENT & PLAN Kendal Cisneros is a 69 y.o. female with a history of CAD s/p CABG (2021), AVR (s/p mechanical valve), MR (s/p repair), pAF on warfarin, pacemaker placement, HFpEF, pHTN, CKD3, HLD, and TUD who presented with c/f thoracic diskitis/osteomyelitis and found Enterococci bacteremia . #Enterococci Bacteremia 07/10 BCx returned positive for Enterococci fecaelis within 16 hrs on 11/13/24. Pt did have any fevers but c/f osteomyelitis. Bacteremia was of unknown source, with subsequent 11/13 TTE unremarkable for a source. 11/15 and 11/16 repeat blood cultures were negative for growth. ID following, and per their recs, stopped repeat blood cultures. NEVAEH 11/19 for further evaluation of source identification showed mobile linear echodensity attach to device lead in the right atrium (DDx includes thrombus vs. vegetation). Cannot rule out lead-related infective endocarditis. Pacemaker removal uncomplicated on 11/25, patient given 1 unit of RBCs before for Hgb 6.8. Pt will be discharged on outpatient IV antibiotics via home health or placement per ID. Likely placement given that patient's insurance does not cover home infusion. Outpatient clinic antibiotics notpossible as patient needs Q6 ampicillin. -Continuing Ampicillin 2g Q6 and ceftriaxone 2g Q12 (11/14-) -Pending placement referrals from -Pending PICC line placement. Nephro ok with PICC placement given CKD3. -ESR and CRP 3 (12/05) and 6 weeks after antibiotics started #Thoracic back pain c/f osteomyelitis Pt has had worsening thoracic back pain since Aug 2024, worsening with movement. Most recent CT thoracic spine showed new osteolysis, cortical irregularities, subcortical sclerosis and distention ofthe intervertebral disc at T10-T11, concerning for diskitis of the osteophyte complex. BUE tingling, but no incontinence, numbness, or lower extremity paresthesia. History notable for kyphoplasty [id number] secondary to L compression fracture and osteomyelitis in foot. Neurosurgery recommended no surgical intervention. CRP and ESR elevated on admission to 17 and 82 respectively. Total spine MRI 11/17 (EP c/s stated that pt's pacemaker is compatible) read abnormal signal within the T10-T11 vertebral bodies and disc space with cortical erosion and paraspinal soft tissue edema, concerning for osteomyelitis discitis at this level. [facility] IR consulted for biopsy, planned for 11/17. Held warfarin for >5 days (11/11-) before procedure, PT/INR before procedure was appropriate; Hepari n ggt started 11/11, therapeutic PTT before procedure at 72. Biopsy results negative for growth. New L sided back pain on 11/20 likely MSK; reproducible with movement and mild. -Pain management regiment: Tylenol 1000 mg Q6, Gabapentin 400 mg TID, Robaxin 750 mg TID scheduled;Dilaudid 0.2 g IV Q2 and oxycodone 7.5 mg oral Q4 PRN for breakthrough pain. -Lidocaine patch PRN for MSK pain. #AVR, MR #pAF on Warfarin at home #HFpEF Pt switched to heparin ggt from Warfarin for upcoming biopsy. Platelets 142 on 11/25 from 170, HIT antibodies positive. PTT therapeutic at 63 before pacemaker removal. Discontinued heparin given positive HIT antibodies and transitioned to bival post-procedure 11/25. -Will bridge to warfarin with starting dose per pharm recs and monitor INR -Holding home coreg and lyle as patient's blood pressures have been low on admission #Thromboyctopenia Plts 200s on admission, 142 prior to pacemaker removal on 11/25. 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 -F/u serotonin assay #CAD s/p RCA CABG #HLD - Home crestor 40 daily #Mood disorder - Home sertraline 100 daily, trazodone 50 nightly #GERD - Home famotidine #COPD Home regimen: albuterol, breztri, flonase - Flonase, trelegy ellipta - PRN albuterol Code Status: Full Code Diet: Adult Diet Regular DVT Prophylaxis: bival Access: pending PICC Dispo: short-term SNF placement for abx infusion, pending warfarin bridge and placement Annalise Rankin, medical student Cosigned by Baltazar Manzano MD at 11/26/2024 9:18 PM CDT * [facility] Note - Waleska Cedeño RN - 11/26/2024 3:14 PM CDT Images from the original note were not included. Cielo Soler NP Nurse Practitioner Specialty: Infectious Diseases Summary of Treatment Recommendations Non-Billable Cosign Needed Encounter Date: 11/26/2024 Related encounter: Documentation from 11/26/[address] [facility] Infectious Diseases with Cielo Soler NP Cosign Needed Infectious Diseases Infectious Diseases OPAT Sign Off Note Facility (LTAC/SNF/Rehab), Dialysis & Non-[facility] (NON-[facility] ID OPAT) Primary Team: 1) Please let us know AT LEAST 72hrs prior to discharge if disposition has changed and they will befollowed by [facility] 2) Please include this information in the discharge summary to the SNF/Rehab facility or HD unit: The following patient is being discharged from [facility] or [facility] to [facility] on IV antibiotics. Please see below for recommendations from the Infectious Diseases inpatient consult team regarding management. Routine monitoring labs and dose adjustments are the responsibility of your facility's clinical providers and are NOT being followed by [facility] while the patient is receiving antibiotics at your facility. IF PATIENT IS DISCHARGED FROM LTACH, SNF OR REHAB FACILITY TO HOME WITH HOME INFUSION AND HOME HEALTH PRIOR TO THE END OF ANTIBIOTICS, please call [facility] Infectious Diseases Clinic at [phone] at least 48 hours prior to discharge so the OPAT Program can assume responsibility of the patient's antimicrobial care. If the patient's follow-up appointment needs to be rescheduled or there are questions/concerns, please call the [facility] Infectious Diseases Clinic at [phone]. General Information OPAT Program: Non HAIR ID Team: Gen SMITH 4 Responsible ID Provider: [place] Antibiotic Indication: Bloodstream infection (BSI), Device infection (ie CIED, port, GRANITE POLISHER MACHINE shunt), Vertebral OM/Epidural abscess Antibiotics start date: 11/25/24 Antibiotics start date reason: Date of pacer removal Firm stop: No Antibiotics anticipated stop date: 01/06/25 Pathogens: enterococcus faecalis Retained Infected Hardware : yes Infected Hardware Details: mechanical heart valve, graft Recommended Clinic Follow-up: (Follow up with Dr. Powell in 3-4 weeks) Imaging Recommended Before Follow-up: No imaging Antimicrobials Antimicrobials A-L: Ceftriaxone, Ampicillin Antimicrobial Routes Ampicillin Route: Infusion Ceftriaxone Route: Infusion Parenteral Antimicrobials Ampicillin Dose: 2 g Ampicillin Frequency: Every 6 hours Ampicillin More Info: 2g IV Q6H for CrCL 10-50 Ceftriaxone Dose: 2 g Ceftriaxone Frequency: Every 12 hours Labs Labs - Weekly Labs: CBC with diff and platelet, CMP Labs - At 3 Weeks and 6 Weeks Labs: ESR/CRP Fax Labs To: [facility] Clinic ([phone]) Call For a Change in Clinical Status, Critical/Abnormal Results, or Order Verification: [facility] ([phone]) OPAT Summary of Consult Summary of Consult: The patient is a 69 y.o. female with PMH of CAD s/p CABG, AVR 2018, PPM 2015, HTN, Afib, mitral regurg, CHF, CKD, HLD, L1 compression fracture s/p kyphoplasty, who presented with concern for thoracic OM. Patient has chronic intermittent mid thoracic back pain that worsened in Aug 2024, associated with generalized weakness, night sweats, weight loss. No abdominal pain, GI or urinary symptoms. She was initially evaluated at OSH and PCP who suspected kidney stone. Ucx 08/21 grewKlebsiella pneumoniae and was treated for possible UTI with cipro for 7 days without improvement ofpain. CT AP 08/22 was performed which was unremarkable. Given persistent and worsening pain she was t hen seen by NSGY on 11/13 and review of OSH CT T/L spine wo contrast 11/10 showed new osteolysis, cortical irregularities,subcortical sclerosis and distension of the intervertebral disc at T10-11 with mild prominent prevertebral soft tissues, concerning for discitis osteophyte complex. She was recommended to present to the ED. ID was consulted on 11/14 for antibiotic recommendations. Son reports that when she had her surgery on 2021, she had a big pus ball. Did further investigation and found on 11/22/2021 patient had a redo sternotomy, ascending aortic replacement, mechanical composite root replacement, LVOT/Root enlargement with photofix pericardial patch, and IABP insertionto L fem arteyr. Operative note comments on thick fluid that appeared purulent but gram stain was negative. Surgery performed with Dr. Moore. Operative cultures labeled aortic wound, mediastinum wound, valve panus, and transverse sinus all finalized with NG and no organisms seen. Post operative blood cultures on 11/25 with NG. BAL 11/29 and urine cultures 12/03 with yeast. Tracheal aspirate 12/03 with moraxella catarrhalis. Post operative course was complicated by hemorrhagic shock requiring multiple transfusions and chest washouts on 11/23, 11/24, and 11/25. She developed new, severe MR post-operatively and subsequently underwent MVr on 11/28 and VA-ECMO was converted to R-ECMO. The oxygenator was weaned and removed on 12/01 and the RVAD was removed 12/07. Patient completed a 14 days of ceftriaxone during the hospitalization. Results: -Blood cultures 11/13: enterococcus faecalis -ERS 11/13: 82 -CRP 11/13: 17 -Tte 11/14: Wire noted in R heart. MV repair with annuloplasty rind and mid residual MV insufficiency. Mechanical AV, mild TV regurgitation -Blood cultures 11/15: NG -MRI 11/17: T10-T11 vertebral bodies and disc space with cortical erosion and paraspinal soft tissueedema, concerning for osteomyelitis discitis at this level -T10-T11 aspirate 11/17: NG -T10-T11 bone bx 11/17: NG -Pathology 11/17: histologic findings are not entirely specific. The differential diagnosis includesprior or ongoing osteomyelitis versus a reactive/degenerative process -Generator device 11/25: NGTD -Atrial lead 11/25: NGTD -Ventricular lead right 11/25: NGTD -LV lead 11/25: NGTD In the ED she was afebrile and HDS. Labs without leukocytosis, ESR 82 and CRP 17. Bcx on 11/13 growing E faecalis. She was started on ampicillin and ceftriaxone. NSGY consulted and recommended MRI spine and IR biopsy. MRI obtained 11/17 reporting T10-T11 vertebral bodies and disc space with cortical er osion and paraspinal soft tissue edema, concerning for osteomyelitis discitis at this level. Patient went to IR with aspiration and bone bx obtained. Cultures finalized with NG. Pathology reporting histologic findings are not entirely specific. The differential diagnosis includes prior or ongoing osteomyelitis versus a reactive/degenerative process . TTE 11/13 showed MV repair with annuloplasty ring, mechanical AV, wire noted in R heart. Patient underwent pacer removal on 11/25. 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 Given patient has retained prosthetic heart valves and graft, she would benefit from discussion of suppression for a year. Routing History * Plan of Care - Waleska Cedeño RN - 11/26/2024 3:11 PM CDT Patient and son, David ([phone]) are agreeable to SNF placement for IV abx. Referrals sent. * Incidental Note - Brie Chavez MD - 11/26/2024 3:02 PM CDT Reviewed renal function. eGFR since 2024 has been mostly in the 40s. Renal function has been overall stable. No objection for PICC line placement from renal standpoint. * Assessment & Plan Note - Cielo Soler NP - 11/26/2024 10:21 AM CDT Associated Problem(s): Bacteremia due to Enterococcus Patient with E faecalis BSI and concern for metastatic site of infection with possible thoracic spine OM. No evidence of intraabdominal infection due to lack of symptoms and prior negative imaging. Given AVR and PPM there is concern for associated endocarditis and PPM infection that would need to be further evaluated. TTE without overt findings of endocarditis. Patient has vocalized she would notbe open to heart surgery at this time if a valve is found to have endocarditis. She is less sure onher thoughts regarding pacer removal. Briefly discussed a prolonged course of IV antibiotics with the possibility of suppression pending results. NEVAEH performed 11/19 with findings of echodensity on pacer wire. Patient underwent pacer generator and wires removal on 11/25. Operative cultures obtained with results pending. She has continued on recommended antibiotics. We will plan on 6 weeks of IV antibiotics for device removal. Recommendations: - continue ampicillin 2g q6h and ceftriaxone 2g q12h -While on the IV antibiotics, please obtain at least a weekly cbc with diff and CMP for antibiotic toxicity monitoring -Will follow up on culture results -Planning on 6 weeks of IV antibiotics from device removal. * Assessment & Plan Note - Cielo Soler NP - 11/26/2024 10:21 AM CDT Associated Problem(s): Osteomyelitis of thoracic spine (HCC) MRI obtained 11/17 reporting T10-T11 vertebral bodies and disc space with cortical erosion and paraspinal soft tissue edema, concerning for osteomyelitis discitis at this level. Patient went to IR with aspiration and bone bx obtained. Cultures finalized with NG. Pathology reporting histologic findings are not entirely specific. The differential diagnosis includes prior or ongoing osteomyelitis versus a reactive/degenerative process Patient will need 6 weeks of antibiotics for management of osteomyelitis. Likely organism is the previously recovered enterococcus faecalis. Continue with current antibiotics. Recommendations: -Continue Ampicillin and Ceftriaxone -Planning on 6 weeks of antibiotics. -Please obtain an ESR and CRP 3 and 6 weeks into treatment * Assessment & Plan Note - Cielo Soler NP - 11/26/2024 10:21 AM CDT Associated Problem(s): Pacemaker (Resolved 11/27/2024) TTE noted wire in right heart. NEVAEH commenting on tiny mobile linear echodensity attached to lead inright atrium. Given patient was bacteremic with an organism known to cause endocarditis, we favor this echodensity to be a vegetation and would advocate for removal. Patient underwent pacer generator and leads removal on 11/25. 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 Patient was found to not be pacemaker dependent on device interrogation. Patient is now s/p ppm and lead extraction by CTS. Patient had a recovered EF on ICT CUSTOMER SUPPORT OFFICER-P. We will not plan for reimplantation during this admission. Rather, we would recommend repeating a TTE in 3 months. If this shows worsening of LV systolic function, we will consider ICT CUSTOMER SUPPORT OFFICER-P reimplantation in the outpatient setting. We will arrange outpatient EP follow up with Dr. La. EP will sign off. Please reach out if questions arise. Devin Day MD Appliances Sample Maker * Assessment & Plan Note - Lia Hernandez MD - 11/26/2024 8:39 AM CDTAssociated Problem(s): Chronic midline thoracic back pain # C/f thoracic discitis / osteomyelitis Chronic back pain since 08/2024. Has had multiple CT scans for workup. Most recent CT thoracic spineshowed c/f discitis osteophyte complex at T10-11, saw NSGY as o/p, told to come to ED for further workup. Endorsing night sweats, 20 lb weight loss, intermittent BUE tingling. No incontinence. No IVDU. Hx of kyphoplasty few years ago to d/t L compression fracture. Hx of OM in foot / leg many years ago iso trauma. ESR/CRP high here. MRI total spine done and MSK IR bx on 11/17.Pending pathology and final cultures. 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 Discuss bridge to coumadin - Pain management with GLORY: tylenol 1g q6, robaxin 750mg q8, gabapentin 300mg TID (added on 11/22),Lidocaine patch; PRN: oxy 7.5mg q4 and dilaudid 0.2 IV q2 to breakthrough pain. * Assessment & Plan Note - Lia Hernandez MD - 11/26/2024 8:39 AM CDTAssociated Problem(s): Bacteremia due to Enterococcus #Vegetation on pacemaker leads 1/2 BCx + E. faecalis on 11/13. Unclear source. 20lb weight loss over the last few months. - Bcx negative on 11/15 and pending 11/16 - Started Amp (11/14-) and Ceftriaxone (11/14 -) - TTE on 11/14 lVEF 67% no thrombus, mechanical mitral valve w/o dysfunction - NEVAEH completed on 11/19, possible vegetation on pacemaker leads - [facility] Bx with IR on 11/17, pending culture and pathology - ID consult appreciate recs, last blood culture on 11/16. After NEVAEH indicated pacemaker removal - Consulted CTS for pacemaker removal on 11/25 at 14:50 - Cardiac surgeon that follow patient was contacted (Dr. Adal Moore) and agree with the plan - Consult IPAP on 11/21 for pre-op evaluation no additional testing, cleared for procedure - Pacemaker removed on 11/25, pending cultures * Assessment & Plan Note - Lia Hernandez MD - 11/26/2024 8:39 AM CDTAssociated Problem(s): Pacemaker (Resolved 11/27/2024) #AVR (inspiris resilia, 2019) #Pacemaker ([employer] 2016) #pAF on Coumadin, now on heparin drip until pacemaker removal #LVEF 67% (11/14/24) Hx severe s/p AVR placement in and replacement of mechanical AV in 2021. Previously on ECMO reuqiring Mitral valve repair. - Warfarin -> hep gtt in preparation for IR bx on 11/17 - GDMT: on hold coreg (hypotension) and spironolactone (worsening of kidney function and hypotension) * Assessment & Plan Note - Lia Hernandez MD - 11/26/2024 8:39 AM CDTAssociated Problem(s): Osteomyelitis of thoracic spine (HCC) See above * Assessment & Plan Note - Lia Hernandez MD - 11/26/2024 8:39 AM CDTAssociated Problem(s): Pacemaker infection See above - Planning pacemaker removal for next week by CTS - Continue antibiotic, followed by ID - Consult vascular team on 11/26 for PICC line - Plan home infusion for antibiotics * Assessment & Plan Note - Lia Hernandez MD - 11/26/2024 8:39 AM CDTAssociated Problem(s): HIT suspected - tested NEGATIVE Matias found with decrease of > 30% in her baseline platelets (204 from admission to 140 last lab) and down trending HB with no apparent bleeding (8.8 from adcmission to 6.6 last lab) - HIT antibodies on 11/15 came back positive - Heparin (11/11 - 11/25) -> Bival started on 11/25 - Discuss bridge to coumadin * Plan of Care - Barbi Avitia RN - 11/26/2024 6:53 AM CDT Problem: Lack of Knowledge Goal: Ability to develop a pain control plan will improve Outcome: Progressing Problem: Medication Goal: Satisfaction with pain management medication regimen will improve Outcome: Progressing Problem: Sensory Goal: Ability to identify factors that increase pain levels will improve while working to decrease the patient's pain levels Outcome: Progressing Problem: Coping Goal: Ability to cope will improve Outcome: Progressing Problem: Health Behavior Goal: Identification of resources available to assist in meeting health care needs will improve Outcome: Progressing Problem: Discharge Planning Goal: Understanding discharge needs will improve Outcome: Progressing Problem: Fall Risk Goal: Ability to state ways to decrease the risk of falls will improve Outcome: Progressing Goal: Will remain free from falls Outcome: Progressing Goal: Will remain free from injury from falls Outcome: Progressing Goals: Clinical Goals for the Shift: VSS, remains free from falls/injuries, post op management, void within 6 hours, pain management, restful night Material Combiner Patient Centered Goal for Treatment: dc safely Summary: VSS Remains free from falls/injuries AOx4 Pain managed with scheduled dose regimen, refer to MAR Patient voided 200mL post surgery aPTT drawn 2 hours after starting Bivalrudin, dose adjusted per orders Patient resting in bed, call light within reach * Consults, Subsequent - Cielo Soler NP - 11/26/2024 5:35 AM CDT Infectious Disease Subsequent Consult Note Infectious Disease Team: General 4 Contact Information: Please see Amion/EPIC Treatment Team listing for up-to-date contact information. Assessment/Plan The patient is a 69 y.o. female with PMH of CAD s/p CABG, AVR 2018, PPM 2016, HTN, Afib, mitral regurg, CHF, CKD, HLD, L1 compression fracture s/p kyphoplasty, who presented with concern for thoracicOM. Patient has chronic intermittent mid thoracic back pain that worsened in Aug 2024, associated with generalized weakness, night sweats, weight loss. No abdominal pain, GI or urinary symptoms. She was initially evaluated at OSH and PCP who suspected kidney stone. Ucx 08/21 grew Klebsiella pneumoniae and was treated for possible UTI with cipro for 7 days without improvement of pain. CT AP 08/22 was performed which was unremarkable. Given persistent and worsening pain she was then seen by NSGY on11/13 and review of OSH CT T/L spine wo contrast 11/10 showed new osteolysis, cortical irregularities,subcortical sclerosis and distension of the intervertebral disc at T10-11 with mild prominent prevertebral soft tissues, concerning for discitis osteophyte complex. She was recommended to present to the ED. ID was consulted on 11/14 for antibiotic recommendations. Son reports that when she had her surgery on 2021, she had a big pus ball. Did further investigation and found on 11/22/2021 patient had a redo sternotomy, ascending aortic replacement, mechanical composite root replacement, LVOT/Root enlargement with photofix pericardial patch, and IABP insertionto L fem arteyr. Operative note comments on thick fluid that appeared purulent but gram stain was negative. Surgery performed with Dr. Moore. Operative cultures labeled aortic wound, mediastinum wound, valve panus, and transverse sinus all finalized with NG and no organisms seen. Post operative blood cultures on 11/25 with NG. BAL 11/29 and urine cultures 12/03 with yeast. Tracheal aspirate 12/03 with moraxella catarrhalis. Post operative course was complicated by hemorrhagic shock requiring multiple transfusions and chest washouts on 11/23, 11/24, and 11/25. She developed new, severe MR post-operatively and subsequently underwent MVr on 11/28 and VA-ECMO was converted to R-ECMO. The oxygenator was weaned and removed on 12/01 and the RVAD was removed 12/07. Patient completed a 14 days of ceftriaxone during the hospitalization. In the ED she was afebrile and HDS. Labs without leukocytosis, ESR 82 and CRP 17. Bcx on 11/13 growing E faecalis. She was started on ampicillin and ceftriaxone. NSGY consulted and recommended MRI spine and IR biopsy. Pending MRI spine. TTE 11/13 showed MV repair with annuloplasty ring, mechanical AV, wire noted in R heart. Patient underwent pacer removal on 11/25. Results: -Blood cultures 11/13: enterococcus faecalis -ERS 11/13: 82 -CRP 11/13: 17 -Tte 11/14: Wire noted in R heart. MV repair with annuloplasty rind and mid residual MV insufficiency. Mechanical AV, mild TV regurgitation -Blood cultures 11/15: NG -MRI 11/17: T10-T11 vertebral bodies and disc space with cortical erosion and paraspinal soft tissueedema, concerning for osteomyelitis discitis at this level -T10-T11 aspirate 11/17: NG -T10-T11 bone bx 11/17: NG -Pathology 11/17: histologic findings are not entirely specific. The differential diagnosis includesprior or ongoing osteomyelitis versus a reactive/degenerative process -Generator device 11/25: NGTD -Atrial lead 11/25: NGTD -Ventricular lead right 11/25: NGTD -LV lead 11/25: NGTD Assessment & Plan Pacemaker TTE noted wire in right heart. NEVAEH commenting on tiny mobile linear echodensity attached to lead inright atrium. Given patient was bacteremic with an organism known to cause endocarditis, we favor this echodensity to be a vegetation and would advocate for removal. Patient underwent pacer generator and leads removal on 11/25. Bacteremia due to Enterococcus Patient with E faecalis BSI and concern for metastatic site of infection with possible thoracic spine OM. No evidence of intraabdominal infection due to lack of symptoms and prior negative imaging. Given AVR and PPM there is concern for associated endocarditis and PPM infection that would need to be further evaluated. TTE without overt findings of endocarditis. Patient has vocalized she would notbe open to heart surgery at this time if a valve is found to have endocarditis. She is less sure onher thoughts regarding pacer removal. Briefly discussed a prolonged course of IV antibiotics with the possibility of suppression pending results. NEVAEH performed 11/19 with findings of echodensity on pacer wire. Patient underwent pacer generator and wires removal on 11/25. Operative cultures obtained with results pending. She has continued on recommended antibiotics. We will plan on 6 weeks of IV antibiotics for device removal. Recommendations: - continue ampicillin 2g q6h and ceftriaxone 2g q12h -While on the IV antibiotics, please obtain at least a weekly cbc with diff and CMP for antibiotic toxicity monitoring -Will follow up on culture results -Planning on 6 weeks of IV antibiotics from device removal. Osteomyelitis of thoracic spine (HCC) MRI obtained 11/17 reporting T10-T11 vertebral bodies and disc space with cortical erosion and paraspinal soft tissue edema, concerning for osteomyelitis discitis at this level. Patient went to IR with aspiration and bone bx obtained. Cultures finalized with NG. Pathology reporting histologic findings are not entirely specific. The differential diagnosis includes prior or ongoing osteomyelitis versus a reactive/degenerative process Patient will need 6 weeks of antibiotics for management of osteomyelitis. Likely organism is the previously recovered enterococcus faecalis. Continue with current antibiotics. Recommendations: -Continue Ampicillin and Ceftriaxone -Planning on 6 weeks of antibiotics. -Please obtain an ESR and CRP 3 and 6 weeks into treatment HIT (heparin-induced thrombocytopenia) Screening for bloodborne pathogens not appropriate at this time/already performed. Patient's insurance is contracted by [facility] and will be referred to ID clinic. I have discussed benefits of antimicrobial stewardship, risks of development of antimicrobial resistant jose with continued antimicrobial use, and standard precautions for prevention of transmissionof infection with patient/family. Additionally, No active isolations precautions recommended. Subjective Chief complaint of enterococcus facialis bacteremia, spinal OM, infected PPM Interval History: -Patient underwent pacer removal yesterday. Cultures obtained with results pending -Recommend 6 weeks of IV antibiotics Objective Physical Exam: Physical Exam Constitutional: General: She is not in acute distress. HENT: Head: Normocephalic and atraumatic. Nose: Nose normal. Mouth/Throat: Mouth: Mucous membranes are moist. Eyes: Pupils: Pupils are equal, round, and reactive to light. Cardiovascular: Rate and Rhythm: Normal rate and regular rhythm. Pulmonary: Effort: Pulmonary effort is normal. No respiratory distress. Breath sounds: Normal breath sounds. Abdominal: General: Bowel sounds are normal. Palpations: Abdomen is soft. Tenderness: There is no abdominal tenderness. Musculoskeletal: General: Normal range of motion. Right lower leg: No edema. Left lower leg: No edema. Skin: General: Skin is warm. Findings: Bruising present. Neurological: General: No focal deficit present. Mental Status: She is alert and oriented to person, place, and time. Mental status is at baseline. Psychiatric: Mood and Affect: Mood normal. Behavior: Behavior normal. Thought Content: Thought content normal. Judgment: Judgment normal. Anti-infectives (From admission, onward) Start Dose/Rate Route Frequency Ordered Stop 11/14/242099 cefTRIAXone (ROCEPHIN) 2,000 mg/20 mL in sterile water (premix) 2,000 mg 2,000 mg 240 mL/hr over 5 Minutes intravenous Every 12 hours scheduled 11/14/24 1950 11/14/24 0915 ampicillin 2,000 mg/60 mL in sterile water IVPB (premix) 2,000 mg 2,000 mg 120 mL/hr over 30 Minutes intravenous Every 6 hours scheduled 11/14/24 0910 Vitals: 24hr Min/Max: Temp Min: 36 ??C (96.8 ??F) Max: 37 ??C (98.6 ??F) Pulse Min: 67 Max: 102 BP Min: 91/60 Max: 161/100 Resp Min: 5 Max: 27 SpO2 Min: 87 % Max: 100 % I/O last 2 completed shifts: In: 360 [I.V.:10; Blood:350] Out: - Active LDAs: Peripheral IV 11/13/24 20 G Left;Posterior Hand (Active) Number of days: 13 Peripheral IV 11/20/24 20 G Anterior;Right Forearm (Active) Number of days: 6 Peripheral IV 11/25/24 16 G Right Hand (Active) Number of days: 1 Lab/Radiology/Diagnostic Review: I reviewed the following laboratory and imaging result(s). Micro: Susceptibility data from last 14 days. Collected Order Specimen Source Organism Ampicillin Doxycycline High-Level Gentamicin Linezolid Vancomycin 11/13/24 Blood culture Blood Peripheral Peripheral Enterococcus faecalis 11/13/24 Blood culture Blood Peripheral Peripheral Enterococcus faecalis S R S S S Hematology/Chemistry: \ Hgb: 8.2 / WBC: 7.76 Plt: 162 / MCV: 87.8 \ Na: 142 Cl: 110 BUN: 10 /Gluc: 70 K: 4.3 CO2: 23 Cr: 1.43 \M.0 AST: - ALT: - Alk Phos: - Ca: 8.6 TP: - Alb: - TBili: -, DBili: - Imaging:. No results found. Patient seen and plan formulated with Dr. Sheehan. Cielo Soler, Team 4 Infectious Diseases BOX PRINTER Please contact the Team 4 ID BOX PRINTER M-F, 7-3; or the Attending at the phone numbers in care team with any questions or concerns. After hours, please contact the ID fellow electronic tech. Cosigned by Peter Sheehan MD at 11/26/2024 5:45 PM CDT Associated attestation - Peter Sheehan MD - 11/26/2024 5:45 PM CDT I have seen and examined the patient on 11/26/2024 in conjunction with the non- physician provider. History: PPM explanted yesterday. Otherwise no acute events. Physical Exam: NAD, EOMI, hearing grossly intact. Tenderness present over explanted PPM site. Breathing comfortably. Lab/Radiology/Diagnostics Review: Cultures from PPM explant pending, NGTD thus far. Assessment/Plan: -Planning on 6 weeks of amp/ceftriaxone -will need post-treatment suppression given her prosthetic valves. * Op Note - Milad Rg MD - 11/25/2024 7:42 PM CDT Op Note Patient: Kendal Cisneros Service Date: 11/25/2024 : 1955 Admit Date: 11/13/2024 SURGEON Milad Rg MD DIRECTOR OF FIELD SERVICE Dru Lawton MD PREOPERATIVE DIAGNOSIS Infected pacemaker leads. POSTOPERATIVE DIAGNOSIS Same as above PROCEDURE PERFORMED Pacemaker device and lead extraction performed using [employer] laser. ANESTHESIA General INDICATIONS This is a 69 y.o. female with infected pacemaker leads. We plan to take her to the operating room today for pacemaker device and lead extraction. Risks and benefits of the procedure has been discussed with the patient and family. They understand the risks and are willing to proceed. OPERATIVE FINDINGS Pacemaker device and lead extraction performed without any complications EBL: 30 mL OPERATIVE REPORT Patient was brought to the operating room and placed on the operating room table in supine position. Patient was intubated and general anesthesia was initiated by the anesthesia team. Preoperative antibiotic was administered. Patient was prepped and draped in routine fashion. Surgical time-out was conducted. Incision was taken over the left infraclavicular region overlying the device pocket. The incision was deepened in a device pocket was entered. The device was unscrewed from the leads and passed off the field for culture and sensitivity. Using [employer] laser under C-arm and transesophageal echocardiographic guidance all the leads were removed without any complication. The excised lead was sent for culture and sensitivity. Hemostasis was achieved. The pocket was closed in layers using 1-0 and 2-0 Vicryl and 4-0 Vicryl and the skin. Dressing was applied. Patient was extubated in the operating room and shifted to the post anesthesia care unit in a stable condition. Milad Bob, scrubbed and performed all the procedures for the entire time. Dr. Lawton scrubbed and assisted the case for the entire time or performed some procedures under my complete supervision. I was always available throughout the case. * Brief Op Note - Dru Scott MD - 11/25/2024 7:42 PM CDT Operative Progress Note Surgical Team: Surgeons and Role: * Milad Rg MD - Primary * Dru Scott MD - Fellow Anesthesiologist: Shai Mercado MD PhD Production Line Worker: Shai Spencer MD Outpatient Receptionist: Donya Griffith CCP Local Operator: Alissa Pereira RN Local Operator Relief: Lou Hirsch RN; Elieser Kowalski RN Scrub Relief: Kristen Lazcano RN; Fanny Gonzalez RN Scrub: Molly Rivas ST RNFA: Pat Barros NP DATE OF SURGERY : 11/25/2024 Preoperative Diagnosis: Pre-op Diagnosis * Pacemaker infection, initial encounter [T82.7XXA] Postoperative Diagnosis: Post-op Diagnosis * Pacemaker infection, initial encounter [T82.7XXA] Procedure(s): Procedure(s) (LRB): REMOVAL PACEMAKER GENERATOR/LEADS (N/A) Operative Findings: Pacemaker and leads removed and sent for culture Estimated Blood Loss: No blood loss documented. Intraoperative Fluids: See anesthesia mls Specimens: No specimen collected in procedure Implants: Nothing was implanted during the procedure Blood/Blood Products Transfused: 0 mls Complications: None Condition on Discharge from the operating room was stable Dru Scott MD Date: 11/25/2024 Time: 8:40 PM TEACHING ATTESTATION : I was present and directly participated in the entire procedure (including opening and closing). Cosigned by Milad Rg MD at 11/28/2024 8:10 AM CDT Associated attestation - Milad Rg MD - 11/28/2024 8:10 AM CDT I was present for the entire procedure. * Plan of Care - Su Almeida RN - 11/25/2024 6:16 PM CDT Goals: Clinical Goals for the Shift: VSS, remain free from falls/injuries Material Combiner Patient Centered Goal for Treatment: dc safely Summary: -Vital signs stable. A&O X4 -No acute events -1 unit of blood transfused this AM. Hgb 8.3 on recheck -Hep gtt held per orders -Pt left unit around 1420 for scheduled procedure and is yet to return. * Plan of Care - Lilian Batres RN - 11/25/2024 1:37 PM CDT 11/25/24 1335 Discharge Planning Support System Children Medication Assistance NONE Anticipated discharge level of care Private residence Does the patient need discharge transport arranged? No CM Progression of Care Update Per Medical Chart/Rounds/IDR: Medically stable for discharge tomorrow ADD: 11/27 Plan/Barriers: Plan discharge to home likely 11/27 with [facility] for IV antibiotics Referrals: Accepted by [facility] Transportation: Son will provide F/U Appointments: Quirino Faustin - 12/02/24 @ 1030 Patient's Identified Problem/Goal Problem:?Ensure acute medical needs are met and that patient has a safe discharge plan. Goal:?Secure a discharge plan that patient/family are agreeable with?and ensure patient has continuum of care. Patient and/or family are agreeable with plan. health policy manager will continue to follow and assist with discharge planning as needed. If any further discharge needs arise, please contact the covering classification case manager. * Assessment & Plan Note - Lia Hernandez MD - 11/25/2024 10:23 AM CDTAssociated Problem(s): Osteomyelitis of thoracic spine (HCC) See above * Assessment & Plan Note - Lia Hernandez MD - 11/25/2024 10:23 AM CDTAssociated Problem(s): Pacemaker infection See above - Planning pacemaker removal for next week by CTS - Continue antibiotic, followed by ID * Assessment & Plan Note - Lia Hernandez MD - 11/25/2024 10:23 AM CDTAssociated Problem(s): HIT suspected - tested NEGATIVE Matias found with decrease of > 30% in her baseline platelets (204 from admission to 140 last lab) and down trending HB with no apparent bleeding (8.8 from adcmission to 6.6 last lab) - HIT antibodies on 11/15 came back positive - Contacted surgical team and heparin will be d/c now and after procedure we will start bival. * Assessment & Plan Note - Lia Hernandez MD - 11/25/2024 10:23 AM CDTAssociated Problem(s): Chronic midline thoracic back pain # C/f thoracic discitis / osteomyelitis Chronic back pain since 08/2024. Has had multiple CT scans for workup. Most recent CT thoracic spineshowed c/f discitis osteophyte complex at T10-11, saw NSGY as o/p, told to come to ED for further workup. Endorsing night sweats, 20 lb weight loss, intermittent BUE tingling. No incontinence. No IVDU. Hx of kyphoplasty few years ago to d/t L compression fracture. Hx of OM in foot / leg many years ago iso trauma. ESR/CRP high here. MRI total spine done and [facility]K IR bx on 11/17.Pending pathology and final cultures. - NSGY signed off on 11/18 as there is no epidural extension or cor compression (MRI report) - Hold warfarin (11/11-) -> heparin gtt for 11/17 IR bx, resumed after - Pain management with GLORY: tylenol 1g q6, robaxin 750mg q8, gabapentin 300mg TID (added on 11/22),Lidocaine patch; PRN: oxy 7.5mg q4 and dilaudid 0.2 IV q2 to breakthrough pain. * Assessment & Plan Note - Lia Hernandez MD - 11/25/2024 10:23 AM CDTAssociated Problem(s): Bacteremia due to Enterococcus #Vegetation on pacemaker leads 1/2 BCx + E. faecalis on 11/13. Unclear source. 20lb weight loss over the last few months. - Bcx negative on 11/15 and pending 11/16 - Started Amp (11/14-) and Ceftriaxone (11/14 -) - TTE on 11/14 lVEF 67% no thrombus, mechanical mitral valve w/o dysfunction - NEVAEH completed on 11/19, possible vegetation on pacemaker leads - MSK Bx with IR on 11/17, pending culture and pathology - ID consult appreciate recs, last blood culture on 11/16. After NEVAEH indicated pacemaker removal - Consulted CTS for pacemaker removal on 11/25 at 14:50 - Cardiac surgeon that follow patient was contacted (Dr. Adal Moore) and agree with the plan - Consult IPAP on 11/21 for pre-op evaluation no additional testing, cleared for procedure * Assessment & Plan Note - Lia Hernandez MD - 11/25/2024 10:23 AM CDTAssociated Problem(s): Pacemaker (Resolved 11/27/2024) #AVR (inspiris resilia, 2018) #Pacemaker ([employer] 2015) #pAF on Coumadin, now on heparin drip until pacemaker removal #LVEF 67% (11/14/24) Hx severe s/p AVR placement in and replacement of mechanical AV in 2021. Previously on ECMO reuqiring Mitral valve repair. - Warfarin -> hep gtt in preparation for IR bx on 11/17 - GDMT: on hold coreg (hypotension) and spironolactone (worsening of kidney function and hypotension) * Medical Student - Annalise Rankin - 11/25/2024 8:59 AM CDT Medicine Firm Daily Progress Subjective SUBJECTIVE Kendal Cisneros is a 69 y.o. female with a history of CAD s/p CABG (2021), AVR (s/p mechanical valve), MR (s/p repair), pAF on warfarin, pacemaker placement, HFpEF, pHTN, CKD3, HLD, and TUD who presented with c/f thoracic diskitis/osteomyelitis and found Enterococci bacteremia . Interval History: -Pain PRNs as below -4 Tylenol -4 gabapentin 300 mg -Lidocaine patch -1 oxy -NPO at midnight for pacemaker removal today -Given 1 unit of blood for Hgb 6.6 -Thrombocytopenia from 204 on admission to 142 today. HIT antibodies positive, 4Ts score 3. Heparinstopped for surgery and CT surgery team informed. Subjective: -Back pain is well managed with pain PRNS, worsens with movement but at 5/10. -No fevers, chills, nausea, vomiting, abdominal pain Objective OBJECTIVE Scheduled Medications: acetaminophen, 1,000 mg, oral, Q6H GLORY ampicillin, 2,000 mg, intravenous, Q6H GLORY [Held by Provider] carvediloL, 12.5 mg, oral, BID with meals (bkfst, dinner) cefTRIAXone, 2,000 mg, intravenous, Q12H GLORY famotidine, 40 mg, oral, Daily fluticasone propionate, 2 spray, each nostril, Daily oiqcebvppzf-wbatyvdpw-igkvarqz, 1 puff, inhalation, Daily gabapentin, 300 mg, oral, TID lidocaine, 1 patch, transdermal, Q24H methocarbamoL, 750 mg, oral, TID rosuvastatin, 40 mg, oral, Daily sertraline, 100 mg, oral, Daily sodium chloride 0.9%, 0.5-20 mL, intra-catheter, Q8H GLORY sodium chloride 0.9%, 0-250 mL, intravenous, Once [Held by Provider] spironolactone, 25 mg, oral, Daily traZODone, 100 mg, oral, Nightly Continuous Medications: heparin, 0-33 Units/kg/hr, Last Rate: 18 Units/kg/hr (11/25/24 0857) sodium chloride 0.9%, 30 mL/hr, Last Rate: 30 mL/hr (11/19/24 1216) PRN Medications: albuterol HFA sodium chloride 0.9% heparin OR heparin HYDROmorphone hydrOXYzine LORazepam ondansetron ODT OR ondansetron oxyCODONE perflutren lipid (DEFINITY) 1.5 mL in sodium chloride 0.9% 10 mL syringe polyethylene glycol prochlorperazine sodium chloride 0.9% Vitals: Most Recent : Vitals: 11/25/24 0700 BP: 91/60 Pulse: 79 Resp: 16 Temp: 36.6 ??C (97.9 ??F) SpO2: 98% 24hr Min/Max: Temp Min: 36.6 ??C (97.9 ??F) Max: 36.6 ??C (97.9 ??F) Pulse Min: 55 Max: 79 BP Min: 91/60 Max: 103/53 Resp Min: 16 Max: 16 SpO2 Min: 96 % Max: 98 % I/O: No intake/output data recorded. No intake/output data recorded. Physical Exam: General: Well-developed, well-nourished, appears stated age, NAD HENT: NCAT. Conjunctivae are normal. No scleral icterus. Cardiovascular: RRR.Midsystolic click. No peripheral edema Pulmonary/Chest: no respiratory distress. CTAB. No w/r/r Abdomen: soft, +BS. NTND. No rebound tenderness, no guarding Back: Tenderness along lower thoracic spinous processes; and L lower back. Skin: warm and dry, no observable rashes, pallor, or cyanosis Neuro: A&Ox4, no gross neurologic deficits Psych: Normal mood and affect Lab/Radiology/Diagnostic Review: Recent Results (from the past 24 hours) Type and screen Collection Time: 11/24/24 10:53 AM Result Value Ref Range ABO Rh A Positive Man, indirect Negative Check Sample Collection Time: 11/24/24 12:21 PM Result Value Ref Range ABO Rh A Positive Protime-INR Collection Time: 11/24/24 9:19 PM Result Value Ref Range PT 13.5 (H) 9.7 - 13.0 sec INR 1.24 (H) 0.90 - 1.20 Basic metabolic panel Collection Time: 11/24/24 9:19 PM Result Value Ref Range Sodium 141 135 - 145 mmol/L Potassium, pl 3.6 3.3 - 4.9 mmol/L Chloride 106 97 - 110 mmol/L CO2 26 22 - 32 mmol/L Anion gap 9 2 - 15 mmol/L BUN 13 6 - 25 mg/dL Creatinine 1.38 (H) 0.60 - 1.10 mg/dL Glucose 112 70 - 199 mg/dL Calcium 8.5 8.5 - 10.3 mg/dL CBC with auto differential Collection Time: 11/24/24 9:19 PM Result Value Ref Range WBC 4.38 3.80 - 9.90 K/cumm Hgb 6.6 (L) 11.9 - 15.5 g/dL Hct 21.7 (L) 35.6 - 45.5 % Plt 142 (L) 150 - 400 K/cumm MPV 11.4 9.1 - 12.3 fL RBC 2.46 (L) 3.90 - 5.20 M/cumm MCV 88.2 81.3 - 96.4 fL MCH 26.8 (L) 27.1 - 33.3 pg MCHC 30.4 (L) 32.3 - 35.7 g/dL RDW CV 16.4 (H) 11.1 - 14.9 % RDW SD 52.0 (H) 35.7 - 48.1 fL NRBC abs 0.00 0.00 - 0.01 K/cumm Magnesium Collection Time: 11/24/24 9:19 PM Result Value Ref Range Magnesium 2.1 1.4 - 2.5 mg/dL Differential, auto Collection Time: 11/24/24 9:19 PM Result Value Ref Range Neutrophil abs 2.81 1.50 - 6.50 K/cumm Imm gran abs 0.01 0.00 - 0.10 K/cumm Lymphocyte abs 1.04 0.80 - 3.30 K/cumm Monocyte abs 0.34 0.20 - 0.80 K/cumm Eosinophil abs 0.14 0.00 - 0.50 K/cumm Basophil abs 0.04 0.00 - 0.10 K/cumm Neutrophil pct 64.2 % Imm gran pct 0.2 % Lymphocyte pct 23.7 % Monocyte pct 7.8 % Eosinophil pct 3.2 % Basophil pct 0.9 % eGFR Collection Time: 11/24/24 9:19 PM Result Value Ref Range eGFR 42 (L) >=60 mL/min/1.73 m2 aPTT Collection Time: 11/24/24 9:19 PM Result Value Ref Range aPTT 63 (H) 28 - 38 sec HIT Antibodies with Reflex to Serotonin Release Assay (MELODY) Collection Time: 11/25/24 8:09 AM Result Value Ref Range HIT antibodies Positive HIT Ab EDNA Units 2.85 (H) 0.00 - 0.99 units/mL aPTT Collection Time: 11/25/24 8:09 AM Result Value Ref Range aPTT 92 (H) 28 - 38 sec I have reviewed the above laboratory results. Imaging Results: No results found. Assessment/Plan ASSESSMENT & PLAN Kendal Cisneros is a 69 y.o. female with a history of CAD s/p CABG (2021), AVR (s/p mechanical valve), MR (s/p repair), pAF on warfarin, pacemaker placement, HFpEF, pHTN, CKD3, HLD, and TUD who presented with c/f thoracic diskitis/osteomyelitis and found Enterococci bacteremia . #Enterococci Bacteremia / BCx returned positive for Enterococci fecaelis within 16 hrs on 11/13/24. Pt did have any fevers but c/f osteomyelitis. Bacteremia was of unknown source, with subsequent 11/13 TTE unremarkable for a source. 11/15 and 11/16 repeat blood cultures were negative for growth. ID following, and per their recs, stopped repeat blood cultures. NEVAEH 11/19 for further evaluation of source identification showed mobile linear echodensity attach to device lead in the right atrium (DDx includes thrombus vs. vegetation). Cannot rule out lead-related infective endocarditis. Pacemaker removal 11/25, patient given 1 unit of RBCs before for Hgb 6.8. -Continuing Ampicillin 2g Q6 and ceftriaxone 2g Q12 (11/14-) -cardiothoracic surgery for pacemaker removal today, 11/25 -Goals of care/APC conversation documented -Outpatient IV antibiotics via home health and home infusion per ID. Inserted PICC line and will set up infusions. Final abx plan pending procedure. -ESR and CRP 3 (12/05) and 6 weeks after antibiotics started #Thoracic back pain c/f osteomyelitis Pt has had worsening thoracic back pain since Aug 2024, worsening with movement. Most recent CT thoracic spine showed new osteolysis, cortical irregularities, subcortical sclerosis and distention ofthe intervertebral disc at T10-T11, concerning for diskitis of the osteophyte complex. BUE tingling, but no incontinence, numbness, or lower extremity paresthesia. History notable for kyphoplasty [id number] secondary to L compression fracture and osteomyelitis in foot. Neurosurgery recommended no surgical intervention. CRP and ESR elevated on admission to 17 and 82 respectively. Total spine MRI 11/17 (EP c/s stated that pt's pacemaker is compatible) read abnormal signal within the T10-T11 vertebral bodies and disc space with cortical erosion and paraspinal soft tissue edema, concerning for osteomyelitis discitis at this level. [facility] IR consulted for biopsy, planned for 11/17. Held warfarin for >5 days (11/11-) before procedure, PT/INR before procedure was appropriate; Hepari n ggt started 11/11, therapeutic PTT before procedure at 72. Biopsy results negative for growth. New L sided back pain on 11/20 likely MSK; reproducible with movement and mild. -Pain management regiment: Tylenol 1000 mg Q6, Gabapentin 400 mg TID, Robaxin 750 mg TID scheduled;Dilaudid 0.2 g IV Q2 and oxycodone 7.5 mg oral Q4 PRN for breakthrough pain. -Lidocaine patch PRN for MSK pain. #AVR, MR #pAF on Warfarin at home #HFpEF Pt switched to heparin ggt from Warfarin for upcoming biopsy. Platelets 142 on 11/25 from 170, HIT antibodies positive. PTT therapeutic at 63 before pacemaker removal. -Discontinued heparin for upcoming procedure and given positive HIT antibodies. -Holding home coreg and lyle as patient's blood pressures have been low on admission #Thromboyctopenia Plts 200s on admission, 142 prior to pacemaker removal on 11/25. 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 -Discontinued heparin, bival with repeat CBC once back on floor -F/u serotonin assay #CAD s/p RCA CABG #HLD - Home crestor 40 daily #Mood disorder - Home sertraline 100 daily, trazodone 50 nightly #GERD - Home famotidine #COPD Home regimen: albuterol, breztri, flonase - Flonase, trelegy ellipta - PRN albuterol Code Status: Full Code Diet: NPO Diet NPO Diet DVT Prophylaxis: dc heparin, bival post procedure Dispo: assistance with home abx set up Annalise Rankin, medical student Cosigned by Baltazar Manzano MD at 11/25/2024 7:12 PM CDT * Plan of Care - Serenity Gonzalez RN - 11/25/2024 4:47 AM CDT Goals: Clinical Goals for the Shift: vss, pain managment, free from falls, monitor heparin Material Combiner Patient Centered Goal for Treatment: dc safely Summary: Problem: Lack of Knowledge Goal: Ability to develop a pain control plan will improve Outcome: Progressing Flowsheets (Taken 11/24/20242013) Ability to develop a pain control plan will improve: Explain causes of pain and how long pain can be expected to last Problem: Medication Goal: Satisfaction with pain management medication regimen will improve Outcome: Progressing Flowsheets (Taken 11/24/20242013) Satisfaction with pain management medication regimen will improve: Assess satisfaction with pain management regimen Problem: Sensory Goal: Ability to identify factors that increase pain levels will improve while working to decrease the patient's pain levels Outcome: Progressing Flowsheets (Taken 11/24/20242013) Ability to identify factors that increase pain levels will improve while working to decrease patients pain levels: Assess pain status Problem: Coping Goal: Ability to cope will improve Outcome: Progressing Flowsheets (Taken 11/24/20242013) Ability to cope will Improve: Encourage vebalization of feelings surrounding pain Problem: Health Behavior Goal: Identification of resources available to assist in meeting health care needs will improve Outcome: Progressing Flowsheets (Taken 11/24/20242013) Identification of resources available to assist in meeting health care needs will improve: Collaborate with pain management Problem: Discharge Planning Goal: Understanding discharge needs will improve Outcome: Progressing Problem: Fall Risk Goal: Ability to state ways to decrease the risk of falls will improve Outcome: Progressing Goal: Will remain free from falls Outcome: Progressing Goal: Will remain free from injury from falls Outcome: Progressing * Plan of Care - August Garcia - 11/24/2024 6:06 PM CDT Problem: Lack of Knowledge Goal: Ability to develop a pain control plan will improve Outcome: Progressing Problem: Medication Goal: Satisfaction with pain management medication regimen will improve Outcome: Progressing Problem: Sensory Goal: Ability to identify factors that increase pain levels will improve while working to decrease the patient's pain levels Outcome: Progressing Problem: Coping Goal: Ability to cope will improve Outcome: Progressing Problem: Health Behavior Goal: Identification of resources available to assist in meeting health care needs will improve Outcome: Progressing Problem: Discharge Planning Goal: Understanding discharge needs will improve Outcome: Progressing Problem: Fall Risk Goal: Ability to state ways to decrease the risk of falls will improve Outcome: Progressing Goal: Will remain free from falls Outcome: Progressing Goal: Will remain free from injury from falls Outcome: Progressing Goals: Clinical Goals for the Shift: VSS, pain management, free from falls/injuries, monitor heparin, compliant with nursing cares Summary: - No acute events throughout my shift - VSS - Patient endorses pain to back, managed with scheduled Tylenol - No BM during my shift today. - No concerns for fall/injury event. - Heparin gtt continued per protocol. Patient remains therapeutic - Compliant with nursing cares * Assessment & Plan Note - Cielo Soler NP - 11/24/2024 12:33 PM CDT Associated Problem(s): Osteomyelitis of thoracic spine (HCC) MRI obtained 11/17 reporting T10-T11 vertebral bodies and disc space with cortical erosion and paraspinal soft tissue edema, concerning for osteomyelitis discitis at this level. Patient went to IR with aspiration and bone bx obtained. Cultures finalized with NG. Pathology pending. Patient will need 6 weeks of antibiotics for management of osteomyelitis. Likely organism is the previously recovered enterococcus faecalis. Continue with current antibiotics.She continues to endorseback pain at rest and with movement but states it is worse with movement. Explained that symptoms should continue to get better with time as inflammation improves. Discussed that it is a slow process. Recommendations: -Continue Ampicillin and Ceftriaxone -Planning on 6 weeks of antibiotics. Final plan pending other results -Please obtain an ESR and CRP 3 and 6 weeks into treatment * Assessment & Plan Note - Cielo Soler NP - 11/24/2024 12:33 PM CDT Associated Problem(s): Pacemaker (Resolved 11/27/2024) TTE noted wire in right heart. NEVAEH commenting on tiny mobile linear echodensity attached to lead inright atrium. Given patient was bacteremic with an organism known to cause endocarditis, we favor this echodensity to be a vegetation and would advocate for removal. Recommendations: -Consult EP and/or CTS for removal of PPM * Assessment & Plan Note - Cielo Soler NP - 11/24/2024 12:33 PM CDT Associated Problem(s): Bacteremia due to Enterococcus Patient with E faecalis BSI and concern for metastatic site of infection with possible thoracic spine OM. No evidence of intraabdominal infection due to lack of symptoms and prior negative imaging. Given AVR and PPM there is concern for associated endocarditis and PPM infection that would need to be further evaluated. TTE without overt findings of endocarditis. Patient has vocalized she would notbe open to heart surgery at this time if a valve is found to have endocarditis. She is less sure onher thoughts regarding pacer removal. Briefly discussed a prolonged course of IV antibiotics with the possibility of suppression pending results. ENVAEH performed 11/19 with findings of echodensity on pacer wire. Discussed recommendations for pacer to be removed and patient scheduled for intervention tomorrow. Recommendations: - continue ampicillin 2g q6h and ceftriaxone 2g q12h -While on the IV antibiotics, please obtain at least a weekly cbc with diff and CMP for antibiotic toxicity monitoring -Will follow up on operative outcomes -Planning on a prolonged treatment course of IV antibiotics -Patient will need PICC line and home health/home infusion * ACP (Advance Care Planning) - Ann Bangura MD - 11/24/2024 11:50 AM CDT She understands risks associated with pacemaker lead extraction that might convert to open heart surgery and is okay for that, as long as intervention is not drastic (such as only for bleeding control). Given significant trauma asoscaited with prior open-heart surgeries (redo sternotomy, ascending aortic replacement, mechanical composite root replacement, LVOT/Root enlargement with photofix pericardial patch, and IABP insertion to L fem artery and ultimately VA-ECMO and R-ECMO), pt clearly expresses wishes against dramatic intervention similar to prior. Pt expressed clear desire AGAINST CRP and intubation after PPM pacemaker extraction. * Assessment & Plan Note - Lia Hernandez MD - 11/24/2024 11:21 AM CDTAssociated Problem(s): Chronic midline thoracic back pain # C/f thoracic discitis / osteomyelitis Chronic back pain since 08/2024. Has had multiple CT scans for workup. Most recent CT thoracic spineshowed c/f discitis osteophyte complex at T10-11, saw NSGY as o/p, told to come to ED for further workup. Endorsing night sweats, 20 lb weight loss, intermittent BUE tingling. No incontinence. No IVDU. Hx of kyphoplasty few years ago to d/t L compression fracture. Hx of OM in foot / leg many years ago iso trauma. ESR/CRP high here. MRI total spine done and MSK IR bx on 11/17.Pending pathology andfinal cultures. - NSGY signed off on 11/18 as there is no epidural extension or cor compression (MRI report) - Hold warfarin (11/11-) -> heparin gtt for 11/17 IR bx, resumed after - Pain management with GLORY: tylenol 1g q6, robaxin 750mg q8, gabapentin 300mg TID (added on 11/22),Lidocaine patch; PRN: oxy 7.5mg q4 and dilaudid 0.2 IV q2 to breakthrough pain. * Assessment & Plan Note - Lia Hernandez MD - 11/24/2024 11:21 AM CDTAssociated Problem(s): Bacteremia due to Enterococcus #Vegetation on pacemaker leads 1/2 BCx + E. faecalis on 11/13. Unclear source. 20lb weight loss over the last few months. - Bcx negative on 11/15 and pending 11/16 - Started Amp (11/14-) and Ceftriaxone (11/14 -) - TTE on 11/14 lVEF 67% no thrombus, mechanical mitral valve w/o dysfunction - NEVAEH completed on 11/19, possible vegetation on pacemaker leads - [facility]K Bx with IR on 11/17, pending culture and pathology - ID consult appreciate recs, last blood culture on 11/16. After NEVAEH indicated pacemaker removal - Consulted CTS for pacemaker removal on 11/25 at 14:50 - Cardiac surgeon that follow patient was contacted (Dr. Adal Moore) and agree with the plan - Consult IPAP on 11/21 for pre-op evaluation no additional testing, cleared for procedure * Assessment & Plan Note - Lia Hernandez MD - 11/24/2024 11:21 AM CDTAssociated Problem(s): Pacemaker (Resolved 11/27/2024) #AVR (inspiris resilia, 2019) #Pacemaker ([employer] 2015) #pAF on Coumadin, now on heparin drip until pacemaker removal #LVEF 67% (11/14/24) Hx severe s/p AVR placement in and replacement of mechanical AV in 2021. Previously on ECMO reuqiring Mitral valve repair. - Warfarin -> hep gtt in preparation for IR bx on 11/17 - GDMT: on hold coreg (hypotension) and spironolactone (worsening of kidney function and hypotension) * Assessment & Plan Note - Lia Hernandez MD - 11/24/2024 11:21 AM CDTAssociated Problem(s): Osteomyelitis of thoracic spine (HCC) See above * Assessment & Plan Note - Lia Hernandez MD - 11/24/2024 11:21 AM CDTAssociated Problem(s): Pacemaker infection See above - Planning pacemaker removal for next week by CTS - Continue antibiotic, followed by ID * Plan of Care - Waleska Cedeño RN - 11/24/2024 10:59 AM CDT CM Progression of Care Update Per Medical Chart/Rounds/IDR: Patient is not medically ready to discharge from the hospital ADD: 11/27 Plan/Barriers: [facility] home infusion following, ID following, Pacemaker to be removed Referrals: [facility] Transportation: family F/U Appointments: will schedule prior to discharge Patient's Identified Problem/Goal Problem:?Ensure acute medical needs are met and that patient has a safe discharge plan. Goal:?Secure a discharge plan that patient/family are agreeable with?and ensure patient has continuum of care. Patient and/or family are agreeable with plan. health policy manager will continue to follow and assist with discharge planning as needed. If any further discharge needs arise, please contact the covering classification case manager. * Consults, Subsequent - Cielo Soler NP - 11/24/2024 10:35 AM CDT Infectious Disease Subsequent Consult Note Infectious Disease Team: General 4 Contact Information: Please see [facility] Treatment Team listing for up-to-date contact information. Assessment/Plan The patient is a 69 y.o. female with PMH of CAD s/p CABG, AVR 2018, PPM 2015, HTN, Afib, mitral regurg, CHF, CKD, HLD, L1 compression fracture s/p kyphoplasty, who presented with concern for thoracicOM. Patient has chronic intermittent mid thoracic back pain that worsened in Aug 2024, associated with generalized weakness, night sweats, weight loss. No abdominal pain, GI or urinary symptoms. She was initially evaluated at OSH and PCP who suspected kidney stone. Ucx 08/21 grew Klebsiella pneumoniae and was treated for possible UTI with cipro for 7 days without improvement of pain. CT AP 08/22 was performed which was unremarkable. Given persistent and worsening pain she was then seen by NSGY on11/13 and review of OSH CT T/L spine wo contrast 11/10 showed new osteolysis, cortical irregularities,subcortical sclerosis and distension of the intervertebral disc at T10-11 with mild prominent prevertebral soft tissues, concerning for discitis osteophyte complex. She was recommended to present to the ED. ID was consulted on 11/14 for antibiotic recommendations. Son reports that when she had her surgery on 2021, she had a big pus ball. Did further investigation and found on 11/22/2021 patient had a redo sternotomy, ascending aortic replacement, mechanical composite root replacement, LVOT/Root enlargement with photofix pericardial patch, and IABP insertionto L fem arteyr. Operative note comments on thick fluid that appeared purulent but gram stain was negative. Surgery performed with Dr. Moore. Operative cultures labeled aortic wound, mediastinum wound, valve panus, and transverse sinus all finalized with NG and no organisms seen. Post operative blood cultures on 11/25 with NG. BAL 11/29 and urine cultures 12/03 with yeast. Tracheal aspirate 12/03 with moraxella catarrhalis. Post operative course was complicated by hemorrhagic shock requiring multiple transfusions and chest washouts on 11/23, 11/24, and 11/25. She developed new, severe MR post-operatively and subsequently underwent MVr on 11/28 and VA-ECMO was converted to R-ECMO. The oxygenator was weaned and removed on 12/01 and the RVAD was removed 12/07. Patient completed a 14 days of ceftriaxone during the hospitalization. In the ED she was afebrile and HDS. Labs without leukocytosis, ESR 82 and CRP 17. Bcx on 11/13 growing E faecalis. She was started on ampicillin and ceftriaxone. NSGY consulted and recommended MRI spine and IR biopsy. Pending MRI spine. TTE 11/13 showed MV repair with annuloplasty ring, mechanical AV, wire noted in R heart. Results: -Blood cultures 11/13: enterococcus faecalis -ERS 11/13: 82 -CRP 11/13: 17 -Tte 11/14: Wire noted in R heart. MV repair with annuloplasty rind and mid residual MV insufficiency. Mechanical AV, mild TV regurgitation -Blood cultures 11/15: NG -MRI 11/17: T10-T11 vertebral bodies and disc space with cortical erosion and paraspinal soft tissueedema, concerning for osteomyelitis discitis at this level -T10-T11 aspirate 11/17: NG -T10-T11 bone bx 11/17: NG -Pathology 11/17: In process Assessment & Plan Pacemaker TTE noted wire in right heart. NEVAEH commenting on tiny mobile linear echodensity attached to lead inright atrium. Given patient was bacteremic with an organism known to cause endocarditis, we favor this echodensity to be a vegetation and would advocate for removal. Recommendations: -Consult EP and/or CTS for removal of PPM Bacteremia due to Enterococcus Patient with E faecalis BSI and concern for metastatic site of infection with possible thoracic spine OM. No evidence of intraabdominal infection due to lack of symptoms and prior negative imaging. Given AVR and PPM there is concern for associated endocarditis and PPM infection that would need to be further evaluated. TTE without overt findings of endocarditis. Patient has vocalized she would notbe open to heart surgery at this time if a valve is found to have endocarditis. She is less sure onher thoughts regarding pacer removal. Briefly discussed a prolonged course of IV antibiotics with the possibility of suppression pending results. NEVAEH performed 11/19 with findings of echodensity on pacer wire. Discussed recommendations for pacer to be removed and patient scheduled for intervention tomorrow. Recommendations: - continue ampicillin 2g q6h and ceftriaxone 2g q12h -While on the IV antibiotics, please obtain at least a weekly cbc with diff and CMP for antibiotic toxicity monitoring -Will follow up on operative outcomes -Planning on a prolonged treatment course of IV antibiotics -Patient will need PICC line and home health/home infusion Osteomyelitis of thoracic spine (HCC) MRI obtained 11/17 reporting T10-T11 vertebral bodies and disc space with cortical erosion and paraspinal soft tissue edema, concerning for osteomyelitis discitis at this level. Patient went to IR with aspiration and bone bx obtained. Cultures finalized with DICK. Pathology pending. Patient will need 6 weeks of antibiotics for management of osteomyelitis. Likely organism is the previously recovered enterococcus faecalis. Continue with current antibiotics.She continues to endorseback pain at rest and with movement but states it is worse with movement. Explained that symptoms should continue to get better with time as inflammation improves. Discussed that it is a slow process. Recommendations: -Continue Ampicillin and Ceftriaxone -Planning on 6 weeks of antibiotics. Final plan pending other results -Please obtain an ESR and CRP 3 and 6 weeks into treatment Screening for bloodborne pathogens not appropriate at this time/already performed. Patient's insurance is contracted by [facility] and will be referred to [facility] clinic. I have discussed benefits of antimicrobial stewardship and standard precautions for prevention of transmission of infection with patient/family. Additionally, No active isolations precautions recommended. Subjective Chief complaint of enterococcus facialis bacteremia, spinal OM, infected PPM Interval History: -Patent has continued on recommended antibiotics -plan for pacer removal tomorrow Objective Physical Exam: Physical Exam Constitutional: General: She is not in acute distress. HENT: Head: Normocephalic and atraumatic. Nose: Nose normal. Mouth/Throat: Mouth: Mucous membranes are moist. Cardiovascular: Rate and Rhythm: Normal rate and regular rhythm. Pulmonary: Effort: Pulmonary effort is normal. No respiratory distress. Breath sounds: Normal breath sounds. Abdominal: General: Bowel sounds are normal. Palpations: Abdomen is soft. Tenderness: There is no abdominal tenderness. Musculoskeletal: General: Normal range of motion. Right lower leg: No edema. Left lower leg: No edema. Skin: General: Skin is warm and dry. Findings: No rash. Neurological: General: No focal deficit present. Mental Status: She is alert and oriented to person, place, and time. Mental status is at baseline. Psychiatric: Mood and Affect: Mood normal. Behavior: Behavior normal. Thought Content: Thought content normal. Judgment: Judgment normal. Anti-infectives (From admission, onward) Start Dose/Rate Route Frequency Ordered Stop 11/14/24 2100 cefTRIAXone (ROCEPHIN) 2,000 mg/20 mL in sterile water (premix) 2,000 mg 2,000 mg 240 mL/hr over 5 Minutes intravenous Every 12 hours scheduled 11/14/24 1950 11/14/24 0915 ampicillin 2,000 mg/60 mL in sterile water IVPB (premix) 2,000 mg 2,000 mg 120 mL/hr over 30 Minutes intravenous Every 6 hours scheduled 11/14/24 0910 Vitals: 24hr Min/Max: Temp Min: 36.4 ??C (97.5 ??F) Max: 36.7 ??C (98.1 ??F) Pulse Min: 89 Max: 90 BP Min: 112/53 Max: 120/56 Resp Min: 16 Max: 16 SpO2 Min: 94 % Max: 96 % No intake/output data recorded. Active LDAs: Peripheral IV 11/13/24 20 G Left;Posterior Hand (Active) Number of days: 11 Peripheral IV 11/20/24 20 G Anterior;Right Forearm (Active) Number of days: 4 Lab/Radiology/Diagnostic Review: I reviewed the following laboratory and imaging result(s). Micro: Susceptibility data from last 14 days. Collected Order Specimen Source Organism Ampicillin Doxycycline High-Level Gentamicin Linezolid Vancomycin 11/13/24 Blood culture Blood Peripheral Peripheral Enterococcus faecalis 11/13/24 Blood culture Blood Peripheral Peripheral Enterococcus faecalis S R S S S Hematology/Chemistry: \ Hgb: 7.2 / WBC: 5.50 Plt: 170 / MCV: 88.0 \ Na: 141 Cl: 106 BUN: 13 /Gluc: 98 K: 4.0 CO2: 25 Cr: 1.56 \M.2 AST: - ALT: - Alk Phos: - Ca: 8.9 TP: - Alb: - TBili: -, DBili: - Imaging:. No results found. Patient seen and plan formulated with Dr. Sheehan. Cielo Soler, Team 4 Infectious Diseases BOX PRINTER Please contact the Team 4 ID BOX PRINTER M-F, 7-3; or the Attending at the phone numbers in care team with any questions or concerns. After hours, please contact the ID fellow electronic tech. Cosigned by Peter Sheehan MD at 11/24/2024 2:53 PM CDT Associated attestation - Peter Sheehan MD - 11/24/2024 2:53 PM CDT I have seen and examined the patient on 11/24/2024 in conjunction with the non- physician provider. History: no acute events. Planning for OR for PPM removal tomorrow. Physical Exam: awake and alert. Resting in bed. Conversational with staff. Moves all extremities. Well perfused. Breathing comfortably. Lab/Radiology/Diagnostics Review: 11/13 BCx isolated E faecalis (doxy resistant). NEVAEH on 11/19 with concern for vegetation on pacer lead. Assessment/Plan: Continue on ceftriaxone and ampicillin. Please send cultures of any concerning tissue from the OR tomorrow. Will follow up Sunday. * Medical Student - Anselom Rankinvya - 11/24/2024 7:51 AM CDT Medicine Firm Daily Progress Subjective SUBJECTIVE Kendal Cisneros is a 69 y.o. female with a history of CAD s/p CABG (2021), AVR (s/p mechanical valve), MR (s/p repair), pAF on warfarin, pacemaker placement, HFpEF, pHTN, CKD3, HLD, and TUD who presented with c/f thoracic diskitis/osteomyelitis and found Enterococci bacteremia . Interval History: -Pain PRNs from last 24 hrs below -1 lido patch -1 oxy -CTS scheduled pacemaker removal for 11/25 tentatively -Goals of care conversation completed and documented in chart Subjective: -Pain has been slightly worse than day prior but managed on pain medications -Denies nausea, vomiting, chest pain, fevers Objective OBJECTIVE Scheduled Medications: acetaminophen, 1,000 mg, oral, Q6H GLORY ampicillin, 2,000 mg, intravenous, Q6H GLORY [Held by Provider] carvediloL, 12.5 mg, oral, BID with meals (bkfst, dinner) cefTRIAXone, 2,000 mg, intravenous, Q12H GLORY famotidine, 40 mg, oral, Daily fluticasone propionate, 2 spray, each nostril, Daily flbknmkzawr-[id number]-[id number], 1 puff, inhalation, Daily gabapentin, 300 mg, oral, TID lidocaine, 1 patch, transdermal, Q24H methocarbamoL, 750 mg, oral, TID rosuvastatin, 40 mg, oral, Daily sertraline, 100 mg, oral, Daily sodium chloride 0.9%, 0.5-20 mL, intra-catheter, Q8H GLORY [Held by Provider] spironolactone, 25 mg, oral, Daily traZODone, 100 mg, oral, Nightly Continuous Medications: heparin, 0-33 Units/kg/hr, Last Rate: 17 Units/kg/hr (11/23/24 2210) sodium chloride 0.9%, 30 mL/hr, Last Rate: 30 mL/hr (11/19/24 1216) PRN Medications: albuterol HFA sodium chloride 0.9% heparin OR heparin HYDROmorphone ondansetron ODT OR ondansetron oxyCODONE perflutren lipid (DEFINITY) 1.5 mL in sodium chloride 0.9% 10 mL syringe polyethylene glycol prochlorperazine sodium chloride 0.9% Vitals: Most Recent : Vitals: 11/23/241921 BP: 112/53 Pulse: 90 Resp: 16 Temp: 36.7 ??C (98.1 ??F) SpO2: 94% 24hr Min/Max: Temp Min: 36.7 ??C (98.1 ??F) Max: 36.7 ??C (98.1 ??F) Pulse Min: 90 Max: 90 BP Min: 112/53 Max: 112/53 Resp Min: 16 Max: 16 SpO2 Min: 94 % Max: 94 % I/O: No intake/output data recorded. No intake/output data recorded. Physical Exam: General: Well-developed, well-nourished, appears stated age. Ambulating without distress HENT: NCAT. Conjunctivae are normal. No scleral icterus. Neck: Neck supple. No thyromegaly. No JVD Cardiovascular: RRR. S2 midsystolic click. No peripheral edema Pulmonary/Chest: no respiratory distress. CTAB. No w/r/r Abdomen: soft, +BS. NTND. No rebound tenderness, no guarding Back: Tenderness along lower thoracic spinous processes. Skin: warm and dry, no observable rashes. Extremities: 2+ radial, DP pulses Neuro: A&Ox4, no focal neurologic deficits, 5/5 strength in all extremities Psych: Normal mood and affect Lab/Radiology/Diagnostic Review: Recent Results (from the past 24 hours) Heparin anti factor Xa activity Collection Time: 11/23/24 9:58 PM Result Value Ref Range Anti Factor Xa 0.50 IUnits/mL Basic metabolic panel Collection Time: 11/23/24 9:58 PM Result Value Ref Range Sodium 141 135 - 145 mmol/L Potassium, pl 4.0 3.3 - 4.9 mmol/L Chloride 106 97 - 110 mmol/L CO2 25 22 - 32 mmol/L Anion gap 10 2 - 15 mmol/L BUN 13 6 - 25 mg/dL Creatinine 1.56 (H) 0.60 - 1.10 mg/dL Glucose 98 70 - 199 mg/dL Calcium 8.9 8.5 - 10.3 mg/dL CBC with auto differential Collection Time: 11/23/24 9:58 PM Result Value Ref Range WBC 5.50 3.80 - 9.90 K/cumm Hgb 7.2 (L) 11.9 - 15.5 g/dL Hct 23.5 (L) 35.6 - 45.5 % Plt 170 150 - 400 K/cumm MPV 11.6 9.1 - 12.3 fL RBC 2.67 (L) 3.90 - 5.20 M/cumm MCV 88.0 81.3 - 96.4 fL MCH 27.0 (L) 27.1 - 33.3 pg MCHC 30.6 (L) 32.3 - 35.7 g/dL RDW CV 16.1 (H) 11.1 - 14.9 % RDW SD 50.2 (H) 35.7 - 48.1 fL NRBC abs 0.00 0.00 - 0.01 K/cumm Magnesium Collection Time: 11/23/24 9:58 PM Result Value Ref Range Magnesium 2.2 1.4 - 2.5 mg/dL Differential, auto Collection Time: 11/23/24 9:58 PM Result Value Ref Range Neutrophil abs 3.71 1.50 - 6.50 K/cumm Imm gran abs 0.01 0.00 - 0.10 K/cumm Lymphocyte abs 1.20 0.80 - 3.30 K/cumm Monocyte abs 0.35 0.20 - 0.80 K/cumm Eosinophil abs 0.19 0.00 - 0.50 K/cumm Basophil abs 0.04 0.00 - 0.10 K/cumm Neutrophil pct 67.4 % Imm gran pct 0.2 % Lymphocyte pct 21.8 % Monocyte pct 6.4 % Eosinophil pct 3.5 % Basophil pct 0.7 % aPTT Collection Time: 11/23/24 9:58 PM Result Value Ref Range aPTT 73 (H) 28 - 38 sec Protime-INR Collection Time: 11/23/24 9:58 PM Result Value Ref Range PT 13.5 (H) 9.7 - 13.0 sec INR 1.24 (H) 0.90 - 1.20 eGFR Collection Time: 11/23/24 9:58 PM Result Value Ref Range eGFR 36 (L) >=60 mL/min/1.73 m2 I have reviewed the above laboratory results. Imaging Results: No results found. Assessment/Plan ASSESSMENT & PLAN Kendal Cisneros is a 69 y.o. female with a history of CAD s/p CABG (2021), AVR (s/p mechanical valve), MR (s/p repair), pAF on warfarin, pacemaker placement, HFpEF, pHTN, CKD3, HLD, and TUD who presented with c/f thoracic diskitis/osteomyelitis and found Enterococci bacteremia. #Enterococci Bacteremia 07/10 BCx returned positive for Enterococci fecaelis within 16 hrs on 11/13/24. Pt did have any fevers but c/f osteomyelitis. Bacteremia was of unknown source, with subsequent 11/13 TTE unremarkable for a source. 11/15 and 11/16 repeat blood cultures were negative for growth. ID following, and per their recs, stopped repeat blood cultures. NEVAEH 11/19 for further evaluation of source identification showed mobile linear echodensity attach to device lead in the right atrium (DDx includes thrombus vs. vegetation). Cannot rule out lead-related infective endocarditis. -Continuing Ampicillin 2g Q6 and ceftriaxone 2g Q12 (11/14-) -cardiothoracic surgery for pacemaker removal tentatively 11/25 -Goals of care/APC conversation documented -Outpatient IV antibiotics via home health and home infusion per ID. Will insert PICC line and willset up infusions. Final abx plan pending procedure. -ESR and CRP 3 (12/05) and 6 weeks after antibiotics started #Thoracic back pain c/f osteomyelitis Pt has had worsening thoracic back pain since Aug 2024, worsening with movement. Most recent CT thoracic spine showed new osteolysis, cortical irregularities, subcortical sclerosis and distention ofthe intervertebral disc at T10-T11, concerning for diskitis of the osteophyte complex. BUE tingling, but no incontinence, numbness, or lower extremity paresthesia. History notable for kyphoplasty [id number] secondary to L compression fracture and osteomyelitis in foot. Neurosurgery recommended no surgical intervention. CRP and ESR elevated on admission to 17 and 82 respectively. Total spine MRI 11/17 (EP c/s stated that pt's pacemaker is compatible) read abnormal signal within the T10-T11 vertebral bodies and disc space with cortical erosion and paraspinal soft tissue edema, concerning for osteomyelitis discitis at this level. [facility] IR consulted for biopsy, planned for 11/17. Held warfarin for >5 days (11/11-) before procedure, PT/INR before procedure was appropriate; Hepari n ggt started 11/11, therapeutic PTT before procedure at 72. Biopsy results negative for growth. New L sided back pain on 11/20 likely MSK; reproducible with movement and mild. -F/u biopsy path report -Pain management regiment: Tylenol 1000 mg Q6, Gabapentin 400 mg TID, Robaxin 750 mg TID scheduled;Dilaudid 0.2 g IV Q2 and oxycodone 7.5 mg oral Q4 PRN for breakthrough pain. -Lidocaine patch PRN for MSK pain. #AVR, MR #pAF on Warfarin at home #HFpEF Pt switched to heparin ggt from Warfarin for upcoming biopsy, PTT therapeutic at 76 on 11/18. -Continuing to hold Warfarin with heparin in place for pacemaker removal -Holding home coreg and lyle as patient's blood pressures have been low on admission #CAD s/p RCA CABG #HLD - Home crestor 40 daily #Mood disorder - Home sertraline 100 daily, trazodone 50 nightly #GERD - Home famotidine #COPD Home regimen: albuterol, breztri, flonase - Flonase, trelegy ellipta - PRN albuterol Code Status: Full Code Diet: Adult Diet Regular DVT Prophylaxis: heparin ggt Dispo: IV outpatient antibiotics with home discharge Annalise Rankin, medical student Cosigned by Ann Bangura MD at 11/27/2024 7:03 AM CDT * Plan of Care - Tara Briones RN - 11/24/2024 5:40 AM CDT Goals: Clinical Goals for the Shift: VSS; monitor hep gtt; pain management; promote comfort and rest; pt will remain free from falls/injuries Summary: No acute events throughout my shift. - VSS throughout the night. - Patient endorses pain to back, rated at 5/10. - Continues to rest well on RA. - No BM during my shift today. - No concerns for fall/injury event. - Heparin gtt continued per protocol. Patient remains therapeutic at 2158. Problem: Lack of Knowledge Goal: Ability to develop a pain control plan will improve Outcome: Progressing Problem: Medication Goal: Satisfaction with pain management medication regimen will improve Outcome: Progressing Problem: Sensory Goal: Ability to identify factors that increase pain levels will improve while working to decrease the patient's pain levels Outcome: Progressing Problem: Coping Goal: Ability to cope will improve Outcome: Progressing Problem: Health Behavior Goal: Identification of resources available to assist in meeting health care needs will improve Outcome: Progressing Problem: Discharge Planning Goal: Understanding discharge needs will improve Outcome: Progressing Problem: Fall Risk Goal: Ability to state ways to decrease the risk of falls will improve Outcome: Progressing Goal: Will remain free from falls Outcome: Progressing Goal: Will remain free from injury from falls Outcome: Progressing * Plan of Care - Vera Campos RN - 11/23/2024 4:59 PM CDT Goals: Clinical Goals for the Shift: vss; pain management Summary: - VSS on ra - pain managed with scheduled and prn medications - A&Ox 4 - heparin gtt continued per orders; remains therapeutic - IV abx given per orders - remained free from fall/injury - pt resting in bed w call light in reach Problem: Lack of Knowledge Goal: Ability to develop a pain control plan will improve Outcome: Progressing Problem: Medication Goal: Satisfaction with pain management medication regimen will improve Outcome: Progressing Problem: Sensory Goal: Ability to identify factors that increase pain levels will improve while working to decrease the patient's pain levels Outcome: Progressing Problem: Coping Goal: Ability to cope will improve Outcome: Progressing Problem: Health Behavior Goal: Identification of resources available to assist in meeting health care needs will improve Outcome: Progressing * Medical Student - Annalise Rankin - 11/23/2024 11:10 AM CDT [employer] Daily Progress Subjective SUBJECTIVE Kendal Cisneros is a 69 y.o. female with a history of CAD s/p CABG (2021), AVR (s/p mechanical valve), MR (s/p repair), pAF on warfarin, pacemaker placement, HFpEF, pHTN, CKD3, HLD, and TUD who presented with c/f thoracic diskitis/osteomyelitis and found Enterococci bacteremia . Interval History: -No pain PRNs needed in last 24 hrs -CTS scheduled pacemaker removal for 11/25 tentatively, IPAS cleared patient yesterday Subjective: -Feels like her spine pain at rest is managed well on new gabapentin and robaxin schedule. Lidocaine patch has improved her MSK pain as well. -Last bowel movement yesterday -no nausea or vomiting Objective OBJECTIVE Scheduled Medications: acetaminophen, 1,000 mg, oral, Q6H GLORY ampicillin, 2,000 mg, intravenous, Q6H GLORY [Held by Provider] carvediloL, 12.5 mg, oral, BID with meals (bkfst, dinner) cefTRIAXone, 2,000 mg, intravenous, Q12H GLORY famotidine, 40 mg, oral, Daily fluticasone propionate, 2 spray, each nostril, Daily ekcmscsinkz-neeszbjck-pfzvkkso, 1 puff, inhalation, Daily gabapentin, 300 mg, oral, TID lidocaine, 1 patch, transdermal, Q24H methocarbamoL, 750 mg, oral, TID rosuvastatin, 40 mg, oral, Daily sertraline, 100 mg, oral, Daily sodium chloride 0.9%, 0.5-20 mL, intra-catheter, Q8H GLORY [Held by Provider] spironolactone, 25 mg, oral, Daily traZODone, 100 mg, oral, Nightly Continuous Medications: heparin, 0-33 Units/kg/hr, Last Rate: 17 Units/kg/hr (11/22/242206) sodium chloride 0.9%, 30 mL/hr, Last Rate: 30 mL/hr (11/19/24 1216) PRN Medications: albuterol HFA sodium chloride 0.9% heparin OR heparin HYDROmorphone ondansetron ODT OR ondansetron oxyCODONE perflutren lipid (DEFINITY) 1.5 mL in sodium chloride 0.9% 10 mL syringe polyethylene glycol prochlorperazine sodium chloride 0.9% Vitals: Most Recent : Vitals: 11/23/24 0714 BP: 115/57 Pulse: 76 Resp: 18 Temp: 36.7 ??C (98.1 ??F) SpO2: 92% 24hr Min/Max: Temp Min: 36.7 ??C (98.1 ??F) Max: 36.8 ??C (98.2 ??F) Pulse Min: 76 Max: 87 BP Min: 115/57 Max: 118/59 Resp Min: 18 Max: 18 SpO2 Min: 92 % Max: 93 % I/O: No intake/output data recorded. No intake/output data recorded. Physical Exam: General: Well-developed, well-nourished, appears stated age. In distress when moving for exam. HENT: NCAT. Conjunctivae are normal. No scleral icterus. Cardiovascular: S2 midsystolic click. No peripheral edema Pulmonary/Chest: no respiratory distress. CTAB. No w/r/r Abdomen: soft, +BS. NTND. No rebound tenderness, no guarding Back: Tenderness along lower thoracic spinous processes; no CVA tenderness Skin: warm and dry, no observable rashes. Biopsy site non erythematosus, no shadowing, edema Neuro: A&Ox4, no gross neurologic deficits Psych: Normal mood and affect Lab/Radiology/Diagnostic Review: Recent Results (from the past 24 hours) aPTT Collection Time: 11/22/24 11:04 PM Result Value Ref Range aPTT 80 (H) 28 - 38 sec Protime-INR Collection Time: 11/22/24 11:04 PM Result Value Ref Range PT 12.9 9.7 - 13.0 sec INR 1.19 0.90 - 1.20 I have reviewed the above laboratory results. Imaging Results: No results found. Assessment/Plan ASSESSMENT & PLAN Kendal Cisneros is a 69 y.o. female with a history of CAD s/p CABG (2021), AVR (s/p mechanical valve), MR (s/p repair), pAF on warfarin, pacemaker placement, HFpEF, pHTN, CKD3, HLD, and TUD who presented with c/f thoracic diskitis/osteomyelitis and found Enterococci bacteremia . #Enterococci Bacteremia 07/10 BCx returned positive for Enterococci fecaelis within 16 hrs on 11/13/24. Pt did have any fevers but c/f osteomyelitis. Bacteremia was of unknown source, with subsequent 11/13 TTE unremarkable for a source. 11/15 and 11/16 repeat blood cultures were negative for growth. ID following, and per their recs, stopped repeat blood cultures. NEVAEH 11/19 for further evaluation of source identification showed mobile linear echodensity attach to device lead in the right atrium (DDx includes thrombus vs. vegetation). Cannot rule out lead-related infective endocarditis. CT surgery planning pacemaker removal. -Continuing Ampicillin 2g Q6 and ceftriaxone 2g Q12 (11/14-) -cardiothoracic surgery for pacemaker removal tentatively 11/25 -Goals of care/APC conversation tomorrow, 11/24, before tentative surgery date. -Set up outpatient IV antibiotics -ESR and CRP 3 (12/05) and 6 weeks after antibiotics started #Thoracic back pain c/f osteomyelitis Pt has had worsening thoracic back pain since Aug 2024, worsening with movement. Most recent CT thoracic spine showed new osteolysis, cortical irregularities, subcortical sclerosis and distention ofthe intervertebral disc at T10-T11, concerning for diskitis of the osteophyte complex. BUE tingling, but no incontinence, numbness, or lower extremity paresthesia. History notable for kyphoplasty [id number] secondary to L compression fracture and osteomyelitis in foot. Neurosurgery recommended no surgical intervention. CRP and ESR elevated on admission to 17 and 82 respectively. Total spine MRI 11/17 (EP c/s stated that pt's pacemaker is compatible) read abnormal signal within the T10-T11 vertebral bodies and disc space with cortical erosion and paraspinal soft tissue edema, concerning for osteomyelitis discitis at this level. MSK IR consulted for biopsy, planned for 11/17. Held warfarin for >5 days (11/11-) before procedure, PT/INR before procedure was appropriate; Hepari n ggt started 11/11, therapeutic PTT before procedure at 72. Biopsy results negative for growth. New L sided back pain on 11/20 likely MSK; reproducible with movement and mild. -F/u biopsy path report -Pain management regiment: Tylenol 1000 mg Q6, Gabapentin 400 mg TID, Robaxin 750 mg TID scheduled;Dilaudid 0.2 g IV Q2 and oxycodone 7.5 mg oral Q4 PRN for breakthrough pain. -Lidocaine patch PRN for MSK pain. #AVR, MR #pAF on Warfarin at home #HFpEF Pt switched to heparin ggt from Warfarin for upcoming biopsy, PTT therapeutic at 76 on 11/18. -Continuing to hold Warfarin with heparin in place for pacemaker removal -Holding home coreg and lyle as patient's blood pressures have been low on admission #CAD s/p RCA CABG #HLD - Home crestor 40 daily #Mood disorder - Home sertraline 100 daily, trazodone 50 nightly #GERD - Home famotidine #COPD Home regimen: albuterol, breztri, flonase - Flonase, trelegy ellipta - PRN albuterol Code Status: Full Code Diet: Adult Diet Regular DVT Prophylaxis: heparin ggt Dispo: pending pacemaker removal Annalise Rankin, medical student Cosigned by Ann Bangura MD at 11/24/2024 4:43 PM CDT * Assessment & Plan Note - Lia Hernandez MD - 11/23/2024 10:06 AM CDTAssociated Problem(s): Bacteremia due to Enterococcus #Vegetation on pacemaker leads 1/2 BCx + E. faecalis on 11/13. Unclear source. 20lb weight loss over the last few months. - Bcx negative on 11/15 and pending 11/16 - Started Amp (11/14-) and Ceftriaxone (11/14 -) - TTE on 11/14 lVEF 67% no thrombus, mechanical mitral valve w/o dysfunction - NEVAEH completed on 11/19, possible vegetation on pacemaker leads - MSK Bx with IR on 11/17, pending culture and pathology - ID consult appreciate recs, last blood culture on 11/16. After NEVAEH indicated pacemaker removal - Consulted CTS for pacemaker removal next week, TBD - Cardiac surgeon that follow patient was contacted (Dr. Adal Moore) and agree with the plan - Consult IPAP on 11/21 for pre-op evaluation no additional testing, cleared for procedure * Assessment & Plan Note - Lia Hernandez MD - 11/23/2024 8:00 AM CDTAssociated Problem(s): Chronic midline thoracic back pain # C/f thoracic discitis / osteomyelitis Chronic back pain since 08/2024. Has had multiple CT scans for workup. Most recent CT thoracic spineshowed c/f discitis osteophyte complex at T10-11, saw NSGY as o/p, told to come to ED for further workup. Endorsing night sweats, 20 lb weight loss, intermittent BUE tingling. No incontinence. No IVDU. Hx of kyphoplasty few years ago to d/t L compression fracture. Hx of OM in foot / leg many years ago iso trauma. ESR/CRP high here. MRI total spine done and MSK IR bx on 11/17.Pending pathology and final cultures. - NSGY signed off on 11/18 as there is no epidural extension or cor compression (MRI report) - Hold warfarin (11/11-) -> heparin gtt for 11/17 IR bx, resumed after - Pain management with GLORY: tylenol 1g q6, robaxin 750mg q8, gabapentin 300mg TID (added on 11/22),Lidocaine patch; PRN: oxy 7.5mg q4 and dilaudid 0.2 IV q2 to breakthrough pain. * Assessment & Plan Note - Lia Hernandez MD - 11/23/2024 8:00 AM CDTAssociated Problem(s): Pacemaker (Resolved 11/27/2024) #AVR (inspiris resilia, 2019) #Pacemaker ([employer] 2016) #pAF on Coumadin, now on heparin drip until pacemaker removal #LVEF 67% (11/14/24) Hx severe s/p AVR placement in and replacement of mechanical AV in 2021. Previously on ECMO reuqiring Mitral valve repair. - Warfarin -> hep gtt in preparation for IR bx on 11/17 - GDMT: on hold coreg (hypotension) and spironolactone (worsening of kidney function and hypotension) * Assessment & Plan Note - Lia Hernandez MD - 11/23/2024 8:00 AM CDTAssociated Problem(s): Osteomyelitis of thoracic spine (HCC) See above * Assessment & Plan Note - Lia Hernandez MD - 11/23/2024 8:00 AM CDTAssociated Problem(s): Pacemaker infection See above - Planning pacemaker removal for next week by CTS - Continue antibiotic, followed by ID * Plan of Care - Tara Briones RN - 11/23/2024 3:58 AM CDT Goals: Clinical Goals for the Shift: VSS; pain management; monitor heparin gtt; promote comfort and rest; pt will remain free from falls/injuries Summary: No acute events throughout my shift. - VSS throughout the night. - Patient denies any pain at this time. - Continues to rest well on RA. - No BM during my shift today. - No concerns for fall/injury event. - Continues with regular diet. - Heparin gtt continued per protocol. Patient remains therapeutic at 2304. Problem: Lack of Knowledge Goal: Ability to develop a pain control plan will improve Outcome: Progressing Problem: Medication Goal: Satisfaction with pain management medication regimen will improve Outcome: Progressing Problem: Sensory Goal: Ability to identify factors that increase pain levels will improve while working to decrease the patient's pain levels Outcome: Progressing Problem: Coping Goal: Ability to cope will improve Outcome: Progressing Problem: Health Behavior Goal: Identification of resources available to assist in meeting health care needs will improve Outcome: Progressing Problem: Discharge Planning Goal: Understanding discharge needs will improve Outcome: Progressing Problem: Fall Risk Goal: Ability to state ways to decrease the risk of falls will improve Outcome: Progressing Goal: Will remain free from falls Outcome: Progressing Goal: Will remain free from injury from falls Outcome: Progressing * Plan of Care - Vera Campos RN - 11/22/2024 6:02 PM CDT Goals: Clinical Goals for the Shift: vss; pain management Summary: - VSS on ra - pain managed with scheduled and prn medications - A&Ox 4 - IV abx given per orders - heparin gtt continued per orders - remained free from fall/injury - pt resting in bed w call light in reach Problem: Lack of Knowledge Goal: Ability to develop a pain control plan will improve Outcome: Progressing Problem: Medication Goal: Satisfaction with pain management medication regimen will improve Outcome: Progressing Problem: Sensory Goal: Ability to identify factors that increase pain levels will improve while working to decrease the patient's pain levels Outcome: Progressing Problem: Coping Goal: Ability to cope will improve Outcome: Progressing Problem: Health Behavior Goal: Identification of resources available to assist in meeting health care needs will improve Outcome: Progressing * Medical Student - Annalise Rankin - 11/22/2024 12:12 PM CDT [employer] Daily Progress Subjective SUBJECTIVE Interval History: -Pain PRNs as below -2 Tylenol -3 oxycodone - Lidocaine patch - 4 Robaxin -CTS scheduled pacemaker removal for 11/25 tentatively, IPAS cleared patient yesterday -Final biopsy culture read negative for growth Subjective: -Ms. Cisneros's midline lower back pain pain has worsened with any movement from baseline. Endorses 02/15 pain. -Left lower muscle pain has improved -Some nausea, no vomiting in last 24 hrs Objective OBJECTIVE Scheduled Medications: acetaminophen, 1,000 mg, oral, Q6H GLORY ampicillin, 2,000 mg, intravenous, Q6H GLORY [Held by Provider] carvediloL, 12.5 mg, oral, BID with meals (bkfst, dinner) cefTRIAXone, 2,000 mg, intravenous, Q12H GLORY famotidine, 40 mg, oral, Daily fluticasone propionate, 2 spray, each nostril, Daily jsefrhkgbih-kzrzdelfh-uvknlhlx, 1 puff, inhalation, Daily gabapentin, 300 mg, oral, TID lidocaine, 1 patch, transdermal, Q24H methocarbamoL, 750 mg, oral, TID rosuvastatin, 40 mg, oral, Daily sertraline, 100 mg, oral, Daily sodium chloride 0.9%, 0.5-20 mL, intra-catheter, Q8H GLORY [Held by Provider] spironolactone, 25 mg, oral, Daily traZODone, 100 mg, oral, Nightly Continuous Medications: heparin, 0-33 Units/kg/hr, Last Rate: 17 Units/kg/hr (11/21/24 2234) sodium chloride 0.9%, 30 mL/hr, Last Rate: 30 mL/hr (11/19/24 1216) PRN Medications: albuterol HFA sodium chloride 0.9% heparin OR heparin HYDROmorphone ondansetron ODT OR ondansetron oxyCODONE perflutren lipid (DEFINITY) 1.5 mL in sodium chloride 0.9% 10 mL syringe polyethylene glycol prochlorperazine sodium chloride 0.9% Vitals: Most Recent : Vitals: 11/22/24 0714 BP: 115/54 Pulse: 68 Resp: 18 Temp: 36.7 ??C (98.1 ??F) SpO2: 98% 24hr Min/Max: Temp Min: 36.6 ??C (97.9 ??F) Max: 36.8 ??C (98.2 ??F) Pulse Min: 68 Max: 76 BP Min: 115/54 Max: 136/67 Resp Min: 16 Max: 18 SpO2 Min: 96 % Max: 98 % I/O: No intake/output data recorded. No intake/output data recorded. Physical Exam: General: Well-developed, well-nourished, appears stated age. In distress when moving for exam. HENT: NCAT. Conjunctivae are normal. No scleral icterus. Cardiovascular: S2 midsystolic click. No peripheral edema Pulmonary/Chest: no respiratory distress. CTAB. No w/r/r Abdomen: soft, +BS. NTND. No rebound tenderness, no guarding Back: Tenderness along lower thoracic spinous processes; no CVA tenderness Skin: warm and dry, no observable rashes. Biopsy site non erythematosus, no shadowing, edema Neuro: A&Ox4, no gross neurologic deficits Psych: Normal mood and affect Lab/Radiology/Diagnostic Review: Recent Results (from the past 24 hours) Protime-INR Collection Time: 11/21/24 10:51 PM Result Value Ref Range PT 13.5 (H) 9.7 - 13.0 sec INR 1.24 (H) 0.90 - 1.20 aPTT Collection Time: 11/21/24 10:51 PM Result Value Ref Range aPTT 78 (H) 28 - 38 sec I have reviewed the above laboratory results. Imaging Results: No results found. Assessment/Plan ASSESSMENT & PLAN Kendal Cisneros is a 69 y.o. female with a history of CAD s/p CABG (2021), AVR (s/p mechanical valve), MR (s/p repair), pAF on warfarin, pacemaker placement, HFpEF, pHTN, CKD3, HLD, and TUD who presented to ED per request of neurosurgery with c/f thoracic diskitis/osteomyelitis. #Enterococci Bacteremia / BCx returned positive for Enterococci fecaelis within 16 hrs on 11/13/24. Pt did have any fevers but c/f osteomyelitis. Bacteremia was of unknown source, with subsequent 11/13 TTE unremarkable for a source. 11/15 and 11/16 repeat blood cultures were negative for growth. ID following, and per their recs, stopped repeat blood cultures. NEVAEH 11/19 for further evaluation of source identification showed mobile linear echodensity attach to device lead in the right atrium (DDx includes thrombus vs. vegetation). Cannot rule out lead-related infective endocarditis. -Continuing Ampicillin 2g Q6 and ceftriaxone 2g Q12 (11/14-) -cardiothoracic surgery for pacemaker removal tentatively 11/25 -Set up outpatient IV antibiotics -ESR and CRP 3 and 6 weeks after procedure #Thoracic back pain c/f osteomyelitis Pt has had worsening thoracic back pain since Aug 2024, worsening with movement. Most recent CT thoracic spine showed new osteolysis, cortical irregularities, subcortical sclerosis and distention ofthe intervertebral disc at T10-T11, concerning for diskitis of the osteophyte complex. BUE tingling, but no incontinence, numbness, or lower extremity paresthesia. History notable for kyphoplasty [id number] secondary to L compression fracture and osteomyelitis in foot. Neurosurgery following. CRP andESR elevated on admission to 17 and 82 respectively. Total spine MRI 11/17 (EP c/s stated that pt's pacemaker is compatible) read abnormal signal within the T10-T11 vertebral bodies and disc space with cortical erosion and paraspinal soft tissue edema, concerning for osteomyelitis discitis at this level. [facility] IR consulted for biopsy, planned for 11/17. Held warfarin for >5 days (11/11-) before procedure, PT/INR before procedure was appropriate; Hepari n ggt started 11/11, therapeutic PTT before procedure at 72. Biopsy results negative for growth. New L sided back pain on 11/20 likely MSK; reproducible with movement and mild. -F/u biopsy path report -Pain management regiment: Tylenol 1000 mg Q6 and Robaxin 750 mg TID scheduled; Dilaudid 0.2 g IV Q2 and oxycodone 7.5 mg oral Q4 PRN for breakthrough pain. Upped oxy from 5 to 7.5 mg. -Lidocaine patch PRN for MSK pain. -Gabapentin 300 mg TID added #AVR, MR #pAF on Warfarin at home #HFpEF Pt switched to heparin ggt from Warfarin for upcoming biopsy, PTT therapeutic at 76 on 11/18. -Continuing to hold Warfarin with heparin in place in case further procedures are indicated after NEVAEH. -Holding home coreg and lyle as patient's blood pressures have been low on admission #CAD s/p RCA CABG #HLD - Home crestor 40 daily #Mood disorder - Home sertraline 100 daily, trazodone 50 nightly #GERD - Home famotidine #COPD Home regimen: albuterol, breztri, flonase - Flonase, trelegy ellipta - PRN albuterol Code Status: Full Code Diet: Adult Diet Regular DVT Prophylaxis: heparin ggt Dispo: pending Annalise Rankin, medical student Cosigned by Ann Bangura MD at 11/22/2024 5:07 PM CDT * Assessment & Plan Note - Lia Hernandez MD - 11/22/2024 10:35 AM CDTAssociated Problem(s): Chronic midline thoracic back pain # C/f thoracic discitis / osteomyelitis Chronic back pain since 08/2024. Has had multiple CT scans for workup. Most recent CT thoracic spineshowed c/f discitis osteophyte complex at T10-11, saw NSGY as o/p, told to come to ED for further workup. Endorsing night sweats, 20 lb weight loss, intermittent BUE tingling. No incontinence. No IVDU. Hx of kyphoplasty few years ago to d/t L compression fracture. Hx of OM in foot / leg many years ago iso trauma. ESR/CRP high here. MRI total spine done and [facility] IR bx on 11/17.Pending pathology and final cultures. - NSGY signed off on 11/18 as there is no epidural extension or cor compression (MRI report) - Hold warfarin (11/11-) -> heparin gtt for 11/17 IR bx, resumed after - Pain management with GLORY: tylenol 1g q6, robaxin 750mg q8, gabapentin 300mg TID (added on 11/22),Lidocaine patch; PRN: oxy 7.5mg q4 and dilaudid 0.2 IV q2 to breakthrough pain. 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 faecalis on 11/13. Unclear source. 20lb weight loss over the last few months. - Bcx negative on 11/15 and pending 11/16 - Started Amp (11/14-) and Ceftriaxone (11/14 -) - TTE on 11/14 lVEF 67% no thrombus, mechanical mitral valve w/o dysfunction - NEVAEH completed on 11/19, possible vegetation on pacemaker leads - [facility] Bx with IR on 11/17, pending culture and pathology - ID consult appreciate recs, last blood culture on 11/16. After NEVAEH indicated pacemaker removal - Consulted CTS for pacemaker removal next week - Cardiac surgeon that follow patient was contacted (Dr. Adal Moore) and agree with the plan - Consult IPAP on 11/21 for pre-op evaluation no additional testing, cleared for procedure * Assessment & Plan Note - Lia Hernandez MD - 11/22/2024 10:35 AM CDTAssociated Problem(s): Pacemaker (Resolved 11/27/2024) #AVR (inspiris resilia, 2019) #Pacemaker ([employer] 2015) #pAF on Coumadin, now on heparin drip until pacemaker removal #LVEF 67% (11/14/24) Hx severe s/p AVR placement in and replacement of mechanical AV in 2021. Previously on ECMO reuqiring Mitral valve repair. - Warfarin -> hep gtt in preparation for IR bx on 11/17 - GDMT: on hold coreg (hypotension) and spironolactone (worsening of kidney function and hypotension) * Assessment & Plan Note - Lia Hernandez MD - 11/22/2024 10:35 AM CDTAssociated Problem(s): Osteomyelitis of thoracic spine (HCC) See above * Assessment & Plan Note - Lia Hernandez MD - 11/22/2024 10:35 AM CDTAssociated Problem(s): Pacemaker infection See above - Planning pacemaker removal for next week by CTS - Continue antibiotic, followed by ID * Plan of Care - Tara Briones RN - 11/22/2024 6:50 AM CDT Goals: Clinical Goals for the Shift: VSS; pain management; monitor heparin gtt; promote comfort and rest; pt will remain free from falls/injuries Summary: No acute events throughout my shift. - Patient endorses pain to back, rated at 5/10. - Continues to rest well on RA. - Pt up SBA to bathroom toilet, mostly help with IV pole, ambulates well. - No BM during my shift today. Pt remains continent. - Patient voids independently. - No concerns for fall/injury event. - Heparin gtt continued per protocol. Patient remains therapeutic at 2251. Problem: Lack of Knowledge Goal: Ability to develop a pain control plan will improve Outcome: Progressing Problem: Medication Goal: Satisfaction with pain management medication regimen will improve Outcome: Progressing Problem: Sensory Goal: Ability to identify factors that increase pain levels will improve while working to decrease the patient's pain levels Outcome: Progressing Problem: Coping Goal: Ability to cope will improve Outcome: Progressing Problem: Health Behavior Goal: Identification of resources available to assist in meeting health care needs will improve Outcome: Progressing Problem: Discharge Planning Goal: Understanding discharge needs will improve Outcome: Progressing Problem: Fall Risk Goal: Ability to state ways to decrease the risk of falls will improve Outcome: Progressing Goal: Will remain free from falls Outcome: Progressing Goal: Will remain free from injury from falls Outcome: Progressing * Plan of Care - Vera Campos RN - 11/21/2024 6:00 PM CDT Goals: Clinical Goals for the Shift: vss; pain management; heparin gtt Summary: - VSS on ra - pain managed with scheduled and prn medications - A&Ox 4 - heparin gtt continued per orders - remained free from fall/injury - pt resting in bed w call light in reach Problem: Lack of Knowledge Goal: Ability to develop a pain control plan will improve Outcome: Progressing Problem: Medication Goal: Satisfaction with pain management medication regimen will improve Outcome: Progressing Problem: Sensory Goal: Ability to identify factors that increase pain levels will improve while working to decrease the patient's pain levels Outcome: Progressing Problem: Coping Goal: Ability to cope will improve Outcome: Progressing Problem: Health Behavior Goal: Identification of resources available to assist in meeting health care needs will improve Outcome: Progressing * Plan of Care - Waleska Cedeño RN - 11/21/2024 10:52 AM CDT CM Progression of Care Update Per Medical Chart/Rounds/IDR: Patient is not medically ready to discharge from the hospital ADD: 11/21 Plan/Barriers: NEVAEH showed vegation, CT surgery following, will need to take pacemaker out Referrals: no referrals at this time Transportation: family F/U Appointments: will discharge prior to discharge Patient's Identified Problem/Goal Problem:?Ensure acute medical needs are met and that patient has a safe discharge plan. Goal:?Secure a discharge plan that patient/family are agreeable with?and ensure patient has continuum of care. Patient and/or family are agreeable with plan. health policy manager will continue to follow and assist with discharge planning as needed. If any further discharge needs arise, please contact the covering classification case manager. * Assessment & Plan Note - Lia Hernandez MD - 11/21/2024 9:32 AM CDTAssociated Problem(s): Chronic midline thoracic back pain # C/f thoracic discitis / osteomyelitis Chronic back pain since 08/2024. Has had multiple CT scans for workup. Most recent CT thoracic spineshowed c/f discitis osteophyte complex at T10-11, saw NSGY as o/p, told to come to ED for further workup. Endorsing night sweats, 20 lb weight loss, intermittent BUE tingling. No incontinence. No IVDU. Hx of kyphoplasty few years ago to d/t L compression fracture. Hx of OM in foot / leg many years ago iso trauma. ESR/CRP high here. MRI total spine done and MSK IR bx on 11/17.Pending pathology and final cultures. - NSGY signed off on 11/18 as there is no epidural extension or cor compression (MRI report) - Hold warfarin (11/11-) -> heparin gtt for 11/17 IR bx, resumed after - Pain management with GLORY: tylenol 1g q6, robaxin 750mg q8; PRN: oxy 5mg q4 and dilaudid 0.2 IV q2to breakthrough pain. 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 faecalis on 11/13. Unclear source. 20lb weight loss over the last few months. - Bcx negative on 11/15 and pending 11/16 - Started Amp (11/14-) and Ceftriaxone (11/14 -) - TTE on 11/14 lVEF 67% no thrombus, mechanical mitral valve w/o dysfunction - NEVAEH completed on 11/19, possible vegetation on pacemaker leads - [facility]K Bx with IR on 11/17, pending culture and pathology - ID consult appreciate recs, last blood culture on 11/16. After NEVAEH indicated pacemaker removal - Consult CTS, cardiac surgeon that follow patient was contacted as well (Dr. Adal Moore) - Consult IPAP on 11/21 for pre-op evaluation * Assessment & Plan Note - Lia Hernandez MD - 11/21/2024 8:37 AM CDTAssociated Problem(s): Pacemaker (Resolved 11/27/2024) #AVR (inspiris resilia, 2019) #Pacemaker ([employer] 2015) #pAF on Coumadin, now on heparin drip until pacemaker removal #LVEF 67% (11/14/24) Hx severe s/p AVR placement in and replacement of mechanical AV in 2021. Previously on ECMO reuqiring Mitral valve repair. - Warfarin -> hep gtt in preparation for IR bx on 11/17 - GDMT: on hold coreg (hypotension) and spironolactone (worsening of kidney function and hypotension) * Assessment & Plan Note - Lia Hernandez MD - 11/21/2024 8:37 AM CDTAssociated Problem(s): Osteomyelitis of thoracic spine (HCC) See above * Plan of Care - Beck Mota - 11/21/2024 5:42 AM CDT Problem: Lack of Knowledge Goal: Ability to develop a pain control plan will improve Outcome: Ongoing Problem: Medication Goal: Satisfaction with pain management medication regimen will improve Outcome: Ongoing Problem: Sensory Goal: Ability to identify factors that increase pain levels will improve while working to decrease the patient's pain levels Outcome: Ongoing Problem: Coping Goal: Ability to cope will improve Outcome: Ongoing Problem: Health Behavior Goal: Identification of resources available to assist in meeting health care needs will improve Outcome: Ongoing Problem: Discharge Planning Goal: Understanding discharge needs will improve Outcome: Ongoing Problem: Fall Risk Goal: Ability to state ways to decrease the risk of falls will improve Outcome: Ongoing Goal: Will remain free from falls Outcome: Ongoing Goal: Will remain free from injury from falls Outcome: Ongoing Goals: Clinical Goals for the Shift: , Summary: -VSS on RA -Remained free from falls & injury -Pt remains A&Ox4 throughout shift -Pt compliant with medications -IV remains intact -Pt denies any pain at this time -aPTT WNL -Pt had adequate UOP -Pt currently resting in bed with call light in reach * Plan of Care - Colin Noel RN - 11/20/2024 6:22 PM CDT Problem: Lack of Knowledge Goal: Ability to develop a pain control plan will improve Outcome: Progressing Problem: Medication Goal: Satisfaction with pain management medication regimen will improve Outcome: Progressing Problem: Sensory Goal: Ability to identify factors that increase pain levels will improve while working to decrease the patient's pain levels Outcome: Progressing Problem: Coping Goal: Ability to cope will improve Outcome: Progressing Problem: Health Behavior Goal: Identification of resources available to assist in meeting health care needs will improve Outcome: Progressing Problem: Discharge Planning Goal: Understanding discharge needs will improve Outcome: Progressing Problem: Fall Risk Goal: Ability to state ways to decrease the risk of falls will improve Outcome: Progressing Goal: Will remain free from falls Outcome: Progressing Goal: Will remain free from injury from falls Outcome: Progressing Goals: VSS, free from falls,abx, manage pain Summary: VSS, free from falls, abx given , continue to manage pain , IV dressing changed, bath given . * Provider Query - Lia Hernandez MD - 11/20/2024 3:21 PM CDT Specify a diagnosis that reflects the patient???s level of strength and mobility on admission, and document in the medical record and on the form below. Select all that apply: _x__Reduced Mobility ___Chronic fatigue _x__Other post infection and related fatigue syndromes ___Other, specify below Additional Provider Response: Spine osteomyelitis Clinical Indicators/Treatments: 11/13 triage; Pt to ED for 5/10 back pain at T10 & T11 x2 months, positional pain increases to 10/10. 11/13 H&P: reports having chronic intermittent back pain before acute worsening in pain around mid-back starting August 2024. States the pain initially started on left side of back before migrating across to both sides. Pain characterized as sharp burning pain, exacerbated by movement Treatment: MRI total spine Neurosurg consult Fall Precautions Hydromorphone Oxycodone Trazodone nightly ID consult ampicillin cefTRIAXone (ROCEPHIN) References: General Debility and Chronic Fatigue Documentation Practices To accurately represent patient acuity under CMS risk-adjustment methodology, please consider and document the following diagnoses, when applicable. Age-related physical debility Postviral fatigue syndrome Consider in patients with excessive and persistent fatigue following a viral illness, such as COVID-19 Myalgic encephalopmyelitis/chronic fatigue syndrome Other post-infection and related fatigue syndromes Neoplastic related fatigue The only diagnostic criteria is if the patient reports fatigue. May also report weariness, malaise,apathy, lassitude, or burnout. Characterized by excessive and persistent exhaustion that is disproportionate to the task done, often interfering with daily activity. Exhibited in 70-100% of patients with cancer. Often begins prior to diagnosis, worsens during treatment, and may persist for months or years after treatment ends Functional Quadriplegia Chronic fatigue Limitation of activities due to disability Bed confinement status Other reduced mobility Applicable to those with impaired mobility, requiring dependence on care providers. May require extensive PT/OT, keith lifts, mobility devices/aids, etc. Debility References Functional Quadriplegia. ICD-9-CM Coding Clinic, 2007 Page: 143 Effective with discharges: [facility]: Cancer Fatigue From the ICD-10-CM Coding Guidelines, use of terms such as likely, suspected, possible, or probable(associated with a specific diagnosis that is being evaluated, monitored, or treated as if it exists) are acceptable and can be coded in the inpatient setting when documented at the time of discharge. This documentation will become part of the patient???s medical record. Thank you, Lucita Galloway RN,BSN Clinical Cafeteria Aide [phone] [email or web address] * Assessment & Plan Note - Cielo Soler NP - 11/20/2024 2:07 PM CDT Associated Problem(s): Pacemaker (Resolved 11/27/2024) TTE noted wire in right heart. NEVAEH commenting on tiny mobile linear echodensity attached to lead inright atrium. Given patient was bacteremic with an organism known to cause endocarditis, we favor this echodensity to be a vegetation and would advocate for removal. Recommendations: -Consult EP and/or CTS for removal of PPM * Assessment & Plan Note - Cielo Soler NP - 11/20/2024 2:07 PM CDT Associated Problem(s): Bacteremia due to Enterococcus Patient with E faecalis BSI and concern for metastatic site of infection with possible thoracic spine OM. No evidence of intraabdominal infection due to lack of symptoms and prior negative imaging. Given AVR and PPM there is concern for associated endocarditis and PPM infection that would need to be further evaluated. TTE without overt findings of endocarditis. Patient has vocalized she would notbe open to heart surgery at this time if a valve is found to have endocarditis. She is less sure onher thoughts regarding pacer removal. Briefly discussed a prolonged course of IV antibiotics with the possibility of suppression pending results. NEVAEH performed yesterday with findings of echodensity on pacer wire. Discussed recommendations for pacer to be removed. Patient called son to include him in the conversation. Son reports that when she had her surgery [id number], she had a big pus ball. Did further investigation and found on 11/22/2021 patient had a redosternotomy, ascending aortic replacement, mechanical composite root replacement, LVOT/Root enlargement with photofix pericardial patch, and IABP insertion to L fem arteyr. Operative note comments on thick fluid that appeared purulent but gram stain was negative. Surgery performed with Dr. Moore. Operative cultures labeled aortic wound, mediastinum wound, valve panus, and transverse sinus all finalized with NG and no organisms seen. Post operative blood cultures on 11/25 with NG. BAL 11/29 and urine cultures 12/03 with yeast. Tracheal aspirate 12/03 with moraxella catarrhalis. Post operative course was complicated by hemorrhagic shock requiring multiple transfusions and chest washouts on 11/23,11/24, and 11/25. She developed new, severe MR post-operatively and subsequently underwent MVr on 11/28 and VA-ECMO was converted to R-ECMO. The oxygenator was weaned and removed on 12/01 and the RVAD was removed 12/07. Patient completed a 14 days of ceftriaxone. Recommendations: - continue ampicillin 2g q6h and ceftriaxone 2g q12h -While on the IV antibiotics, please obtain at least a weekly cbc with diff and CMP for antibiotic toxicity monitoring -OK to stop daily blood cultures -Planning on a prolonged treatment course. Final plan pending plans for PPM * Assessment & Plan Note - Cielo Soler NP - 11/20/2024 2:07 PM CDT Associated Problem(s): Osteomyelitis of thoracic spine (HCC) MRI obtained 11/17 reporting T10-T11 vertebral bodies and disc space with cortical erosion and paraspinal soft tissue edema, concerning for osteomyelitis discitis at this level. Patient went to IR with aspiration and bone bx obtained. Culture results pending. Patient will need 6 weeks of antibiotics for management of osteomyelitis. Likely organism is the previously recovered enterococcus faecalis. Continue with current antibiotics. Will adjust treatment pending culture results as needed. Recommendations: -Continue Ampicillin and Ceftriaxone -Planning on 6 weeks of antibiotics. Final plan pending other results -Please obtain an ESR and CRP 3 and 6 weeks into treatment * Assessment & Plan Note - Lia Hernandez MD - 11/20/2024 2:00 PM CDTAssociated Problem(s): Bacteremia due to Enterococcus /2 BCx + E. faecalis on 11/13. Unclear source. 20lb weight loss over the last few months. - Bcx negative on 11/15 and pending 11/16 - Started Amp (11/14-) and Ceftriaxone (11/14 -) - TTE on 11/14 lVEF 67% no thrombus, mechanical mitral valve w/o dysfunction - NEVAEH completed on 11/19, possible vegetation on pacemaker leads, - MSK Bx with IR on 11/17, pending culture and pathology - ID consult appreciate recs, last blood culture on 11/16. After NEVAEH indicated pacemaker removal - Consult CTS, cardiac surgeon that follow patient was contacted as well (Dr. Adal Moore) * Assessment & Plan Note - Lia Hernandez MD - 11/20/2024 2:00 PM CDTAssociated Problem(s): Pacemaker (Resolved 11/27/2024) #AVR (inspiris resilia, 2019) #Pacemaker ([employer] 2015) #pAF on Coumadin, now on heparin drip until pacemaker removal #LVEF 67% (11/14/24) Hx severe s/p AVR placement in and replacement of mechanical AV in 2021. Previously on ECMO reuqiring Mitral valve repair. - Warfarin -> hep gtt in preparation for IR bx on 11/17 - GDMT: on hold coreg (hypotension) and spironolactone (worsening of kidney function and hypotension) * Assessment & Plan Note - Lia Hernandez MD - 11/20/2024 2:00 PM CDTAssociated Problem(s): Osteomyelitis of thoracic spine (HCC) See above * Medical Student - Annalise Rankin - 11/20/2024 11:04 AM CDT [employer] Daily Progress Subjective SUBJECTIVE Kendal Cisneros is a 69 y.o. female with a history of CAD s/p CABG (2021), AVR (s/p mechanical valve), MR (s/p repair), pAF on warfarin, pacemaker placement, HFpEF, pHTN, CKD3, HLD, and TUD who presented to ED per request of neurosurgery with c/f thoracic diskitis/osteomyelitis. Interval History: -11/19 NEVAEH notable for Tiny mobile linear echodensity attach to device lead in the right atrium (DDx includes thrombus vs. vegetation). Cannot rule out lead- related infective endocarditis. -Pain PRNs as below - 2 Tylenol - 3 oxy - 1 Robaxin 750 mg <-- 500 mg previously - Lido patch Subjective: - New mild L sided back pain reproducible with movement - Mid back pain at biopsy site has been constant, had one episode of 9/10 pain with movement inbetween sleep last night. - No nausea, vomiting, fever, chills, diarrhea, constipation, abdominal pain Objective OBJECTIVE Scheduled Medications: acetaminophen, 1,000 mg, oral, Q6H GLORY ampicillin, 2,000 mg, intravenous, Q6H GLORY [Held by Provider] carvediloL, 12.5 mg, oral, BID with meals (bkfst, dinner) cefTRIAXone, 2,000 mg, intravenous, Q12H GLORY famotidine, 40 mg, oral, Daily fluticasone propionate, 2 spray, each nostril, Daily cqwjbonmpfo-bkwnrdhhh-erqvbgdj, 1 puff, inhalation, Daily lidocaine, 1 patch, transdermal, Q24H methocarbamoL, 750 mg, oral, TID rosuvastatin, 40 mg, oral, Daily sertraline, 100 mg, oral, Daily sodium chloride 0.9%, 0.5-20 mL, intra-catheter, Q8H GLORY [Held by Provider] spironolactone, 25 mg, oral, Daily traZODone, 100 mg, oral, Nightly Continuous Medications: heparin, 0-33 Units/kg/hr, Last Rate: 17 Units/kg/hr (11/20/24 0003) sodium chloride 0.9%, 30 mL/hr, Last Rate: 30 mL/hr (11/19/24 1216) PRN Medications: albuterol HFA sodium chloride 0.9% heparin OR heparin HYDROmorphone ondansetron ODT OR ondansetron oxyCODONE perflutren lipid (DEFINITY) 1.5 mL in sodium chloride 0.9% 10 mL syringe polyethylene glycol prochlorperazine sodium chloride 0.9% Vitals: Most Recent : Vitals: 11/20/24 0723 BP: 128/60 Pulse: 60 Resp: 18 Temp: 36.7 ??C (98.1 ??F) SpO2: 91% 24hr Min/Max: Temp Min: 36.5 ??C (97.7 ??F) Max: 37 ??C (98.6 ??F) Pulse Min: 60 Max: 87 BP Min: 104/51 Max: 152/81 Resp Min: 13 Max: 24 SpO2 Min: 90 % Max: 100 % I/O: I/O last 2 completed shifts: In: 660 [P.O.:660] Out: 0 No intake/output data recorded. Physical Exam: General: Well-developed, well-nourished, appears stated age. In distress when attempting to move positions on bed. HENT: NCAT. Conjunctivae are normal. No scleral icterus. Cardiovascular: Midsystolic S2 click. No peripheral edema Pulmonary/Chest: no respiratory distress. CTAB. No w/r/r Abdomen: soft, +BS. NTND. No rebound tenderness, no guarding Back: Tenderness along lower thoracic spinal processes, and on lateral mid back; no CVA tenderness Skin: warm and dry, no observable rashes. Lower thoracic biopsy site clean, without erythema, edema, shadowing. Extremities: No pitting edema. Neuro: A&Ox4, no gross neurologic deficits Psych: Normal mood and affect Lab/Radiology/Diagnostic Review: Recent Results (from the past 24 hours) Magnesium Collection Time: 11/19/24 8:49 PM Result Value Ref Range Magnesium 2.3 1.4 - 2.5 mg/dL CBC with auto differential Collection Time: 11/19/24 8:49 PM Result Value Ref Range WBC 5.84 3.80 - 9.90 K/cumm Hgb 7.7 (L) 11.9 - 15.5 g/dL Hct 24.9 (L) 35.6 - 45.5 % Plt 170 150 - 400 K/cumm MPV 11.3 9.1 - 12.3 fL RBC 2.88 (L) 3.90 - 5.20 M/cumm MCV 86.5 81.3 - 96.4 fL MCH 26.7 (L) 27.1 - 33.3 pg MCHC 30.9 (L) 32.3 - 35.7 g/dL RDW CV 15.1 (H) 11.1 - 14.9 % RDW SD 47.3 35.7 - 48.1 fL NRBC abs 0.00 0.00 - 0.01 K/cumm Protime-INR Collection Time: 11/19/24 8:49 PM Result Value Ref Range PT 14.1 (H) 9.7 - 13.0 sec INR 1.30 (H) 0.90 - 1.20 Basic metabolic panel Collection Time: 11/19/24 8:49 PM Result Value Ref Range Sodium 140 135 - 145 mmol/L Potassium, pl 3.8 3.3 - 4.9 mmol/L Chloride 105 97 - 110 mmol/L CO2 26 22 - 32 mmol/L Anion gap 9 2 - 15 mmol/L BUN 12 6 - 25 mg/dL Creatinine 1.27 (H) 0.60 - 1.10 mg/dL Glucose 89 70 - 199 mg/dL Calcium 9.1 8.5 - 10.3 mg/dL aPTT Collection Time: 11/19/24 8:49 PM Result Value Ref Range aPTT 72 (H) 28 - 38 sec Differential, auto Collection Time: 11/19/24 8:49 PM Result Value Ref Range Neutrophil abs 4.17 1.50 - 6.50 K/cumm Imm gran abs 0.02 0.00 - 0.10 K/cumm Lymphocyte abs 1.03 0.80 - 3.30 K/cumm Monocyte abs 0.41 0.20 - 0.80 K/cumm Eosinophil abs 0.17 0.00 - 0.50 K/cumm Basophil abs 0.04 0.00 - 0.10 K/cumm Neutrophil pct 71.5 % Imm gran pct 0.3 % Lymphocyte pct 17.6 % Monocyte pct 7.0 % Eosinophil pct 2.9 % Basophil pct 0.7 % eGFR Collection Time: 11/19/24 8:49 PM Result Value Ref Range eGFR 46 (L) >=60 mL/min/1.73 m2 Hepatic function panel Collection Time: 11/19/24 8:49 PM Result Value Ref Range Bilirubin, total <0.2 0.1 - 1.2 mg/dL Bilirubin, direct <0.2 0.1 - 0.3 mg/dL Protein, pl 7.3 6.5 - 8.5 g/dL Albumin 2.9 (L) 3.5 - 5.0 g/dL Alk phos 88 40 - 130 Units/L ALT 23 7 - 45 Units/L AST 34 10 - 45 Units/L I have reviewed the above laboratory results. Imaging Results: No results found. Assessment/Plan ASSESSMENT & PLAN Kendal Cisneros is a 69 y.o. female with a history of CAD s/p CABG (2021), AVR (s/p mechanical valve), MR (s/p repair), pAF on warfarin, pacemaker placement, HFpEF, pHTN, CKD3, HLD, and TUD who presented to ED per request of neurosurgery with c/f thoracic diskitis/osteomyelitis. #Enterococci Bacteremia 07/10 BCx returned positive for Enterococci fecaelis within 16 hrs on 11/13/24. Pt did have any fevers but c/f osteomyelitis. Bacteremia was of unknown source, with subsequent 11/13 TTE unremarkable for a source. 11/15 and 11/16 repeat blood cultures were negative for growth. ID following, and per their recs, stopped repeat blood cultures. NEVAEH 11/19 for further evaluation of source identification showed mobile linear echodensity attach to device lead in the right atrium (DDx includes thrombus vs. vegetation). Cannot rule out lead-related infective endocarditis. -Continuing Ampicillin 2g Q6 and ceftriaxone 2g Q12 (11/14-) -c/s cardiothoracic surgery for potential pacemaker removal #Thoracic back pain c/f osteomyelitis Pt has had worsening thoracic back pain since Aug 2024, worsening with movement. Most recent CT thoracic spine showed new osteolysis, cortical irregularities, subcortical sclerosis and distention ofthe intervertebral disc at T10-T11, concerning for diskitis of the osteophyte complex. BUE tingling, but no incontinence, numbness, or lower extremity paresthesia. History notable for kyphoplasty [id number] secondary to L compression fracture and osteomyelitis in foot. Neurosurgery following. CRP andESR elevated on admission to 17 and 82 respectively. Total spine MRI 11/17 (EP c/s stated that pt's pacemaker is compatible) read abnormal signal within the T10-T11 vertebral bodies and disc space with cortical erosion and paraspinal soft tissue edema, concerning for osteomyelitis discitis at this level. MSK IR consulted for biopsy, planned for 11/17. Held warfarin for >5 days (11/11-) before procedure, PT/INR before procedure was appropriate; Heparin ggt started 11/11, therapeutic PTT before procedure at 72. New L sided back pain on 11/20 likely MSK; reproducible with movement and mild. -F/u biopsy results, NGTD -Pain management regiment: Tylenol 1000 mg Q6 and Robaxin 750 mg TID scheduled (Robaxin increased from 500 for MSK pain); Dilaudid 0.2 g IV Q2 and oxycodone 5 mg oral Q4 PRN for breakthrough pain. -Lidocaine patch added for MSK pain. #AVR, MR #pAF on Warfarin at home #HFpEF Pt switched to heparin ggt from Warfarin for upcoming biopsy, PTT therapeutic at 76 on 11/18. -Continuing to hold Warfarin with heparin in place in case further procedures are indicated after NEVAEH. -Holding home coreg and lyle as patient's blood pressures have been low on admission #CAD s/p RCA CABG #HLD - Home crestor 40 daily #Mood disorder - Home sertraline 100 daily, trazodone 50 nightly #GERD - Home famotidine #COPD Home regimen: albuterol, breztri, flonase - Flonase, trelegy ellipta - PRN albuterol Code Status: Full Code Diet: Adult Diet Regular DVT Prophylaxis: heparin ggt Dispo: pending Annalise Rankin, medical student Cosigned by Ann Bangura MD at 11/22/2024 5:07 PM CDT * Consults, Subsequent - Cielo Soler NP - 11/20/2024 10:36 AM CDT Infectious Disease Subsequent Consult Note Infectious Disease Team: General 4 Contact Information: Please see [facility] Treatment Team listing for up-to-date contact information. Assessment/Plan The patient is a 69 y.o. female with PMH of CAD s/p CABG, AVR 2018, PPM 2015, HTN, Afib, mitral regurg, CHF, CKD, HLD, L1 compression fracture s/p kyphoplasty, who presented with concern for thoracicOM. Patient has chronic intermittent mid thoracic back pain that worsened in Aug 2024, associated with generalized weakness, night sweats, weight loss. No abdominal pain, GI or urinary symptoms. She was initially evaluated at OSH and PCP who suspected kidney stone. Ucx 08/21 grew Klebsiella pneumoniae and was treated for possible UTI with cipro for 7 days without improvement of pain. CT AP 08/22 was performed which was unremarkable. Given persistent and worsening pain she was then seen by NSGY on11/13 and review of OSH CT T/L spine wo contrast 11/10 showed new osteolysis, cortical irregularities,subcortical sclerosis and distension of the intervertebral disc at T10-11 with mild prominent prevertebral soft tissues, concerning for discitis osteophyte complex. She was recommended to present to the ED. ID was consulted on 11/14 for antibiotic recommendations. In the ED she was afebrile and HDS. Labs without leukocytosis, ESR 82 and CRP 17. Bcx on 11/13 growing E faecalis. She was started on ampicillin and ceftriaxone. NSGY consulted and recommended MRI spine and IR biopsy. Pending MRI spine. TTE 11/13 showed MV repair with annuloplasty ring, mechanical AV, wire noted in R heart. Results: -Blood cultures 11/13: enterococcus faecalis -ERS 11/13: 82 -CRP 11/13: 17 -Tte 11/14: Wire noted in R heart. MV repair with annuloplasty rind and mid residual MV insufficiency. Mechanical AV, mild TV regurgitation -Blood cultures 11/15: NGTD -MRI 11/17: T10-T11 vertebral bodies and disc space with cortical erosion and paraspinal soft tissueedema, concerning for osteomyelitis discitis at this level -T10-T11 aspirate 11/17: NGTD -T10-T11 bone bx 11/17: NGTD Assessment & Plan Pacemaker TTE noted wire in right heart. NEVAEH commenting on tiny mobile linear echodensity attached to lead inright atrium. Given patient was bacteremic with an organism known to cause endocarditis, we favor this echodensity to be a vegetation and would advocate for removal. Recommendations: -Consult EP and/or CTS for removal of PPM Bacteremia due to Enterococcus Patient with E faecalis BSI and concern for metastatic site of infection with possible thoracic spine OM. No evidence of intraabdominal infection due to lack of symptoms and prior negative imaging. Given AVR and PPM there is concern for associated endocarditis and PPM infection that would need to be further evaluated. TTE without overt findings of endocarditis. Patient has vocalized she would notbe open to heart surgery at this time if a valve is found to have endocarditis. She is less sure onher thoughts regarding pacer removal. Briefly discussed a prolonged course of IV antibiotics with the possibility of suppression pending results. NEVAEH performed yesterday with findings of echodensity on pacer wire. Discussed recommendations for pacer to be removed. Patient called son to include him in the conversation. Son reports that when she had her surgery [id number], she had a big pus ball. Did further investigation and found on 11/22/2021 patient had a redosternotomy, ascending aortic replacement, mechanical composite root replacement, LVOT/Root enlargement with photofix pericardial patch, and IABP insertion to L fem arteyr. Operative note comments on thick fluid that appeared purulent but gram stain was negative. Surgery performed with Dr. Moore. Operative cultures labeled aortic wound, mediastinum wound, valve panus, and transverse sinus all finalized with NG and no organisms seen. Post operative blood cultures on 11/25 with NG. BAL 11/29 and urine cultures 12/03 with yeast. Tracheal aspirate 12/03 with moraxella catarrhalis. Post operative course was complicated by hemorrhagic shock requiring multiple transfusions and chest washouts on 11/23,11/24, and 11/25. She developed new, severe MR post-operatively and subsequently underwent MVr on 11/28 and VA-ECMO was converted to R-ECMO. The oxygenator was weaned and removed on 12/01 and the RVAD was removed 12/07. Patient completed a 14 days of ceftriaxone. Recommendations: - continue ampicillin 2g q6h and ceftriaxone 2g q12h -While on the IV antibiotics, please obtain at least a weekly cbc with diff and CMP for antibiotic toxicity monitoring -OK to stop daily blood cultures -Planning on a prolonged treatment course. Final plan pending plans for PPM Osteomyelitis of thoracic spine (HCC) MRI obtained 11/17 reporting T10-T11 vertebral bodies and disc space with cortical erosion and paraspinal soft tissue edema, concerning for osteomyelitis discitis at this level. Patient went to IR with aspiration and bone bx obtained. Culture results pending. Patient will need 6 weeks of antibiotics for management of osteomyelitis. Likely organism is the previously recovered enterococcus faecalis. Continue with current antibiotics. Will adjust treatment pending culture results as needed. Recommendations: -Continue Ampicillin and Ceftriaxone -Planning on 6 weeks of antibiotics. Final plan pending other results -Please obtain an ESR and CRP 3 and 6 weeks into treatment Screening for bloodborne pathogens not appropriate at this time/already performed. Patient's insurance is contracted by [facility] and will be referred to [facility] clinic. I have discussed benefits of antimicrobial stewardship with patient/family. Additionally, No activeisolations precautions recommended. Subjective Chief complaint of enterococcus facialis bacteremia, spinal OM, infected PPM Interval History: -NEVAEH with echodensity on the pacer wire -recommend pacer removal -continue ampicillin and ceftriaxone. Objective Physical Exam: Physical Exam Constitutional: General: She is not in acute distress. HENT: Head: Normocephalic and atraumatic. Nose: Nose normal. Mouth/Throat: Mouth: Mucous membranes are moist. Cardiovascular: Rate and Rhythm: Normal rate and regular rhythm. Pulmonary: Effort: Pulmonary effort is normal. No respiratory distress. Breath sounds: Normal breath sounds. Abdominal: General: Bowel sounds are normal. Palpations: Abdomen is soft. Tenderness: There is no abdominal tenderness. Musculoskeletal: General: Normal range of motion. Skin: General: Skin is warm and dry. Findings: No rash. Neurological: General: No focal deficit present. Mental Status: She is alert and oriented to person, place, and time. Mental status is at baseline. Psychiatric: Mood and Affect: Mood normal. Behavior: Behavior normal. Thought Content: Thought content normal. Judgment: Judgment normal. Anti-infectives (From admission, onward) Start Dose/Rate Route Frequency Ordered Stop 11/14/24 2100 cefTRIAXone (ROCEPHIN) 2,000 mg/20 mL in sterile water (premix) 2,000 mg 2,000 mg 240 mL/hr over 5 Minutes intravenous Every 12 hours scheduled 11/14/24 1950 11/14/24 0915 ampicillin 2,000 mg/60 mL in sterile water IVPB (premix) 2,000 mg 2,000 mg 120 mL/hr over 30 Minutes intravenous Every 6 hours scheduled 11/14/24 0910 Vitals: 24hr Min/Max: Temp Min: 36.4 ??C (97.5 ??F) Max: 37 ??C (98.6 ??F) Pulse Min: 60 Max: 87 BP Min: 104/51 Max: 152/81 Resp Min: 15 Max: 24 SpO2 Min: 90 % Max: 100 % I/O last 2 completed shifts: In: 660 [P.O.:660] Out: 0 Active LDAs: Peripheral IV 11/13/24 20 G Left;Posterior Hand (Active) Number of days: 7 Peripheral IV 11/14/24 22 G Anterior;Right Hand (Active) Number of days: 6 Lab/Radiology/Diagnostic Review: I reviewed the following laboratory and imaging result(s). Micro: Susceptibility data from last 14 days. Collected Order Specimen Source Organism Ampicillin Doxycycline High-Level Gentamicin Linezolid Vancomycin 11/13/24 Blood culture Blood Peripheral Peripheral Enterococcus faecalis 11/13/24 Blood culture Blood Peripheral Peripheral Enterococcus faecalis S R S S S Hematology/Chemistry: \ Hgb: 7.7 / WBC: 5.84 Plt: 170 / MCV: 86.5 \ Na: 140 Cl: 105 BUN: 12 /Gluc: 89 K: 3.8 CO2: 26 Cr: 1.27 \M.3 AST: 34 ALT: 23 Alk Phos: 88 Ca: 9.1 TP: - Alb: 2.9 TBili: <0.2, DBili: <0.2 Imaging:. No results found. Patient seen and plan formulated with Dr. Powell. Cielo Soler, Team 4 Infectious Diseases BOX PRINTER Please contact the Team 4 ID BOX PRINTER M-F, 7-3; or the Attending at the phone numbers in care team with any questions or concerns. After hours, please contact the ID fellow electronic tech. Cosigned by Jennifer Pate MD at 11/20/2024 3:00 PM CDT Associated attestation - Jennifer Pate MD - 11/20/2024 3:00 PM CDT I have seen and examined the patient on 11/20/24 in conjunction with the non- physician provider. History: Patient reports ongoing back pain, tolerating abx. Discussed NEVAEH findings and recommendations. Physical Exam: Lungs CTAB, RRR +click. Lab/Radiology/Diagnostics Review: NEVAEH with mobile echodensity of lead concerning for vegetation. Noevidence of valvular vegetations. Assessment/Plan Recommend CTS evaluation for PPM removal. Continue ceftriaxone and ampicillin. Today, I am treating the patient for bloodstream infection and endovascular infection which can cause sepsis, septic shock, multiorgan dysfunction and acute heart failure in the short-term future in the absence of appropriate treatment, as described in the note. Reviewed notes by medicine, EP, NSGY to determine appropriate plan of care as in the note. Estimated Creatinine Clearance: 34 mL/min (A) (by C-G 65 yr and older- minimum SCr 0.8 based on SCrof 1.27 mg/dL (H)). - reviewed; antibiotics recommended above are dosed accordingly. The patient is being intensively monitored for antimicrobial toxicity from ampicillin and ceftriaxone with the following tests: CBC with diff and CMP. * Assessment & Plan Note - Lia Hernandez MD - 11/20/2024 10:13 AM CDTAssociated Problem(s): Chronic midline thoracic back pain # C/f thoracic discitis / osteomyelitis Chronic back pain since 08/2024. Has had multiple CT scans for workup. Most recent CT thoracic spineshowed c/f discitis osteophyte complex at T10-11, saw NSGY as o/p, told to come to ED for further workup. Endorsing night sweats, 20 lb weight loss, intermittent BUE tingling. No incontinence. No IVDU. Hx of kyphoplasty few years ago to d/t L compression fracture. Hx of OM in foot / leg many years ago iso trauma. ESR/CRP high here. MRI total spine done and MSK IR bx on 11/17.Pending pathology and final cultures. - NSGY signed off on 11/18 as there is no epidural extension or cor compression (MRI report) - Hold warfarin (11/11-) -> heparin gtt for 11/17 IR bx, resumed after - Pain management with GLORY: tylenol 1g q6, robaxin 750mg q8; PRN: oxy 5mg q4 and dilaudid 0.2 IV q2to breakthrough pain, lidocaine patch * Plan of Care - Colin Noel RN - 11/19/2024 3:03 PM CDT Problem: Lack of Knowledge Goal: Ability to develop a pain control plan will improve Outcome: Progressing Problem: Medication Goal: Satisfaction with pain management medication regimen will improve Outcome: Progressing Problem: Sensory Goal: Ability to identify factors that increase pain levels will improve while working to decrease the patient's pain levels Outcome: Progressing Problem: Coping Goal: Ability to cope will improve Outcome: Progressing Problem: Health Behavior Goal: Identification of resources available to assist in meeting health care needs will improve Outcome: Progressing Problem: Discharge Planning Goal: Understanding discharge needs will improve Outcome: Progressing Problem: Fall Risk Goal: Ability to state ways to decrease the risk of falls will improve Outcome: Progressing Goal: Will remain free from falls Outcome: Progressing Goal: Will remain free from injury from falls Outcome: Progressing Goals: Clinical Goals for the Shift: VSS, free from falls,NPO for NEVAEH, manage pain Summary: VSS, free from falls, pt was NPO for NEVAEH, pain managed with oxy and tylenol ,no BM * Assessment & Plan Note - Lia Hernandez MD - 11/19/2024 12:30 PM CDTAssociated Problem(s): Chronic midline thoracic back pain # C/f thoracic discitis / osteomyelitis Chronic back pain since 08/2024. Has had multiple CT scans for workup. Most recent CT thoracic spineshowed c/f discitis osteophyte complex at T10-11, saw NSGY as o/p, told to come to ED for further workup. Endorsing night sweats, 20 lb weight loss, intermittent BUE tingling. No incontinence. No IVDU. Hx of kyphoplasty few years ago to d/t L compression fracture. Hx of OM in foot / leg many years ago iso trauma. ESR/CRP high here. Pending MRI total spine and MSK IR bx on 11/17. - NSGY signed off on 11/18 as there is no epidural extension or cor compression (MRI report) - Hold warfarin (11/11-) -> heparin gtt for 11/17 IR bx, resumed after - Pain management with GLORY: tylenol 1g q6, robaxin 50mg q8; PRN: oxy 5mg q4 and dilaudid 0.2 IV q2 to breakthrough pain * Assessment & Plan Note - Lia Hernandez MD - 11/19/2024 12:30 PM CDTAssociated Problem(s): Bacteremia due to Enterococcus 1/2 BCx + E. faecalis on 11/13. Unclear source. 20lb weight loss over the last few months. - Bcx NGTD since 11/15 - Start Amp (11/14-) and Ceftriaxone (11/14 -) - TTE on 11/14 lVEF 67% no thrombus, mechanical mitral valve w/o dysfunction - NEVAEH planned for 11/17 to assess indication for PPM lead extraction - MSK Bx with IR on 11/17, pending culture and pathology - ID consult appreciate recs, repeat daily blood cultures until negative for 48h. * Assessment & Plan Note - Lia Hernandez MD - 11/19/2024 12:30 PM CDTAssociated Problem(s): Pacemaker (Resolved 11/27/2024) #AVR (inspiris resilia, 2019) #Pacemaker ([employer] 2016) #pAF on Coumadin #LVEF 67% (11/14/24) Hx severe s/p AVR placement in and replacement of mechanical AV in 2021. Previously on ECMO reuqiring Mitral valve repair. - Warfarin -> hep gtt in preparation for IR bx on 11/17 - GDMT: on hold coreg (hypotension) and spironolactone (worsening of kidney function and hypotension) * Assessment & Plan Note - Lia Hernandez MD - 11/19/2024 12:30 PM CDTAssociated Problem(s): Osteomyelitis of thoracic spine (HCC) See above * Plan of Care - Waleska Cedeño RN - 11/19/2024 11:49 AM CDT CM Progression of Care Update Per Medical Chart/Rounds/IDR: Patient is not medically ready to discharge from the hospital ADD: 11/24 Plan/Barriers: bacteremia, NEVAEH pending Referrals: no referrals placed at this time Transportation: Family F/U Appointments: will schedule prior to discharge Patient's Identified Problem/Goal Problem:?Ensure acute medical needs are met and that patient has a safe discharge plan. Goal:?Secure a discharge plan that patient/family are agreeable with?and ensure patient has continuum of care. Patient and/or family are agreeable with plan. health policy manager will continue to follow and assist with discharge planning as needed. If any further discharge needs arise, please contact the covering classification case manager. * Medical Student - Annalise Rankin - 11/19/2024 11:02 AM CDT Medicine Firm Daily Progress Subjective SUBJECTIVE Kendal Cisneros is a 69 y.o. female with a history of CAD s/p CABG (2021), AVR (s/p mechanical valve), MR (s/p repair), pAF on warfarin, pacemaker placement, HFpEF, pHTN, CKD3, HLD, and TUD who presented to ED per request of neurosurgery with c/f thoracic diskitis/osteomyelitis. Interval History: -NPO at midnight for NEVAEH planned this afternoon -BP down to 90s systolic, 42 diastolic. Without tachycardia, recovers to 110s. -PRN Pain regiment as below -x2 Tylenol -x2 oxycodone -Neurosurgery signed off, recommends nonsurgical tx, continuing with abx Subjective: -Pain is a 6/10 at rest, up to a 9/10 with movement. -Pt endorses night sweats -No nausea or vomiting overnight. No fevers, chills, abdominal pain, diarrhea, dysuria Objective OBJECTIVE Scheduled Medications: acetaminophen, 1,000 mg, oral, Q6H GLORY ampicillin, 2,000 mg, intravenous, Q6H GLORY [Held by Provider] carvediloL, 12.5 mg, oral, BID with meals (bkfst, dinner) cefTRIAXone, 2,000 mg, intravenous, Q12H GLORY famotidine, 40 mg, oral, Daily fluticasone propionate, 2 spray, each nostril, Daily yhuugdgrwdy-ukfmcwflb-bnyivucy, 1 puff, inhalation, Daily methocarbamoL, 500 mg, oral, TID rosuvastatin, 40 mg, oral, Daily sertraline, 100 mg, oral, Daily sodium chloride 0.9%, 0.5-20 mL, intra-catheter, Q8H GLORY [Held by Provider] spironolactone, 25 mg, oral, Daily traZODone, 100 mg, oral, Nightly Continuous Medications: heparin, 0-33 Units/kg/hr, Last Rate: 17 Units/kg/hr (11/19/24 0902) PRN Medications: albuterol HFA sodium chloride 0.9% heparin OR heparin HYDROmorphone ondansetron ODT OR ondansetron oxyCODONE perflutren lipid (DEFINITY) 1.5 mL in sodium chloride 0.9% 10 mL syringe polyethylene glycol prochlorperazine sodium chloride 0.9% Vitals: Most Recent : Vitals: 11/19/24 0719 BP: 116/61 Pulse: 73 Resp: 16 Temp: 36.5 ??C (97.7 ??F) SpO2: 96% 24hr Min/Max: Temp Min: 36.5 ??C (97.7 ??F) Max: 36.6 ??C (97.9 ??F) Pulse Min: 73 Max: 86 BP Min: 90/68 Max: 117/42 Resp Min: 16 Max: 18 SpO2 Min: 94 % Max: 99 % I/O: No intake/output data recorded. I/O this shift: In: 60 [P.O.:60] Out: - Physical Exam: General: Well-developed, well-nourished, appears stated age, NAD HENT: NCAT. Conjunctivae are normal. No scleral icterus. Cardiovascular: S2 midsystolic click. No r/m/g. No peripheral edema Pulmonary/Chest: no respiratory distress. CTAB. No w/r/r Abdomen: soft, +BS. NTND. No rebound tenderness, no guarding Back: Tenderness along T10-11 spinous processes Skin: warm and dry, no observable rashes. Shadowing around lower thoracic biopsy site, no swelling,erythema. Extremities: No pitting edema. Neuro: A&Ox4, no gross neurologic deficits Psych: Normal mood and affect Lab/Radiology/Diagnostic Review: Recent Results (from the past 24 hours) aPTT Collection Time: 11/18/24 11:45 AM Result Value Ref Range aPTT 74 (H) 28 - 38 sec Magnesium Collection Time: 11/18/24 6:01 PM Result Value Ref Range Magnesium 2.2 1.4 - 2.5 mg/dL CBC with auto differential Collection Time: 11/18/24 6:01 PM Result Value Ref Range WBC 4.71 3.80 - 9.90 K/cumm Hgb 7.8 (L) 11.9 - 15.5 g/dL Hct 25.1 (L) 35.6 - 45.5 % Plt 166 150 - 400 K/cumm MPV 11.1 9.1 - 12.3 fL RBC 2.90 (L) 3.90 - 5.20 M/cumm MCV 86.6 81.3 - 96.4 fL MCH 26.9 (L) 27.1 - 33.3 pg MCHC 31.1 (L) 32.3 - 35.7 g/dL RDW CV 14.9 11.1 - 14.9 % RDW SD 47.3 35.7 - 48.1 fL NRBC abs 0.00 0.00 - 0.01 K/cumm Basic metabolic panel Collection Time: 11/18/24 6:01 PM Result Value Ref Range Sodium 139 135 - 145 mmol/L Potassium, pl 3.8 3.3 - 4.9 mmol/L Chloride 106 97 - 110 mmol/L CO2 26 22 - 32 mmol/L Anion gap 7 2 - 15 mmol/L BUN 14 6 - 25 mg/dL Creatinine 1.40 (H) 0.60 - 1.10 mg/dL Glucose 99 70 - 199 mg/dL Calcium 9.4 8.5 - 10.3 mg/dL aPTT Collection Time: 11/18/24 6:01 PM Result Value Ref Range aPTT 76 (H) 28 - 38 sec Differential, auto Collection Time: 11/18/24 6:01 PM Result Value Ref Range Neutrophil abs 3.19 1.50 - 6.50 K/cumm Imm gran abs 0.02 0.00 - 0.10 K/cumm Lymphocyte abs 0.96 0.80 - 3.30 K/cumm Monocyte abs 0.33 0.20 - 0.80 K/cumm Eosinophil abs 0.17 0.00 - 0.50 K/cumm Basophil abs 0.04 0.00 - 0.10 K/cumm Neutrophil pct 67.8 % Imm gran pct 0.4 % Lymphocyte pct 20.4 % Monocyte pct 7.0 % Eosinophil pct 3.6 % Basophil pct 0.8 % Protime-INR Collection Time: 11/18/24 6:01 PM Result Value Ref Range PT 15.6 (H) 9.7 - 13.0 sec INR 1.43 (H) 0.90 - 1.20 eGFR Collection Time: 11/18/24 6:01 PM Result Value Ref Range eGFR 41 (L) >=60 mL/min/1.73 m2 I have reviewed the above laboratory results. Imaging Results: MRI Spine Total Complete W WO Contrast Result Date: 11/17/2024 1. Abnormal signal within the T10-T11 vertebral bodies and disc space with cortical erosion and paraspinal soft tissue edema, concerning for osteomyelitis discitis at this level. 2. Redemonstrated [id number] body compression fracture with postoperative changes of augmentation. 3. Nonspecific hyperintense signal within the david, incompletely evaluated. Recommend dedicated brain MRI if clinicallyindicated. 4. Mild to moderate degenerative changes of the cervical, thoracic, and lumbar spine as above. Dictated by: Ariel Babb M.D. The radiology attending physician has personally reviewed this study, and had reviewed and/or edited this written report and agrees with it. Electronically signed by: Jessica Pagan M.D. IR Biopsy Deep Bone Result Date: 11/17/2024 1. T10-T11 bone/disc biopsy under fluoroscopic guidance. The core specimens and aspirate were sent to surgical pathology and microbiology. Electronically signed by: Riley Joya MD Assessment/Plan ASSESSMENT & PLAN Kendal Cisneros is a 69 y.o. female with a history of CAD s/p CABG (2021), AVR (s/p mechanical valve), MR (s/p repair), pAF on warfarin, pacemaker placement, HFpEF, pHTN, CKD3, HLD, and TUD who presented to ED per request of neurosurgery with c/f thoracic diskitis/osteomyelitis. #Enterococci Bacteremia 07/10 BCx returned positive for Enterococci fecaelis within 16 hrs on 11/13/24. Pt did have any fevers but c/f osteomyelitis. Bacteremia was of unknown source, with subsequent 11/13 TTE showing MV repair with annuloplasty ring, mechanical AV, wire noted in R heart. 11/15 and 11/16 repeat blood cultures were negative for growth. ID following, and per their recs, stopped repeat blood cultures. -Continuing Ampicillin 2g Q6 and ceftriaxone 2g Q12 (11/14-) -NEVAEH 11/19 for further evaluation of PPM leads and MVR/AVR for source identification. #Thoracic back pain c/f osteomyelitis Pt has had worsening thoracic back pain since Aug 2024, worsening with movement. Most recent CT thoracic spine showed new osteolysis, cortical irregularities, subcortical sclerosis and distention ofthe intervertebral disc at T10-T11, concerning for diskitis of the osteophyte complex. BUE tingling, but no incontinence, numbness, or lower extremity paresthesia. History notable for kyphoplasty [id number] secondary to L compression fracture and osteomyelitis in foot. Neurosurgery following. CRP andESR elevated on admission to 17 and 82 respectively. Total spine MRI 11/17 (EP c/s stated that pt's pacemaker is compatible) read abnormal signal within the T10-T11 vertebral bodies and disc space with cortical erosion and paraspinal soft tissue edema, concerning for osteomyelitis discitis at this level. [facility] IR consulted for biopsy, planned for 11/17. Held warfarin for >5 days (11/11-) before procedure, PT/INR before procedure was appropriate; Heparin ggt started 11/11, therapeutic PTT before procedure at 72. -F/u biopsy results, NGTD -Pain management regiment: Tylenol 1000 mg Q6 and Robaxin 500 mg TID scheduled; Dilaudid 0.2 g IV Q2 and oxycodone 5 mg oral Q4 PRN for breakthrough pain. #AVR, MR #pAF on Warfarin at home #HFpEF Pt switched to heparin ggt from Warfarin for upcoming biopsy, PTT therapeutic at 76 on 11/18. -Continuing to hold Warfarin with heparin in place in case further procedures are indicated after NEVAEH. -Holding home coreg and lyle as patient's blood pressures have been low on admission #CAD s/p RCA CABG #HLD - Home crestor 40 daily #Mood disorder - Home sertraline 100 daily, trazodone 50 nightly #GERD - Home famotidine #COPD Home regimen: albuterol, breztri, flonase - Flonase, trelegy ellipta - PRN albuterol Code Status: Full Code Diet: NPO Diet DVT Prophylaxis: Heparin ggt Dispo: pending Annalise Rankin, Medical student Cosigned by Ann Bangura MD at 11/19/2024 1:34 PM CDT * Plan of Care - Beck Mota - 11/19/2024 5:41 AM CDT Problem: Lack of Knowledge Goal: Ability to develop a pain control plan will improve Outcome: Ongoing Problem: Medication Goal: Satisfaction with pain management medication regimen will improve Outcome: Ongoing Problem: Sensory Goal: Ability to identify factors that increase pain levels will improve while working to decrease the patient's pain levels Outcome: Ongoing Problem: Coping Goal: Ability to cope will improve Outcome: Ongoing Problem: Health Behavior Goal: Identification of resources available to assist in meeting health care needs will improve Outcome: Ongoing Problem: Discharge Planning Goal: Understanding discharge needs will improve Outcome: Ongoing Problem: Fall Risk Goal: Ability to state ways to decrease the risk of falls will improve Outcome: Ongoing Goal: Will remain free from falls Outcome: Ongoing Goal: Will remain free from injury from falls Outcome: Ongoing Goals: Clinical Goals for the Shift: VSS, pt free from injuries/falls, no c/o pain, aptt therapeutic Summary: -VSS on RA -Remained free from falls & injury -Pt remains A&Ox4 throughout shift -Pt compliant with medications -IV remains intact -Heparin dttp therapeutic and bag changed -Pt given scheduled tylenol and oxycodone x1 for pain -Pt had adequate UOP -No BMs this shift -Pt NPO for NEVAEH in AM -Pt currently resting in bed with call light in reach * Plan of Care - Emma Smallwood RN - 11/18/2024 3:12 PM CDT Problem: Lack of Knowledge Goal: Ability to develop a pain control plan will improve Outcome: Progressing Problem: Medication Goal: Satisfaction with pain management medication regimen will improve Outcome: Progressing Problem: Sensory Goal: Ability to identify factors that increase pain levels will improve while working to decrease the patient's pain levels Outcome: Progressing Problem: Coping Goal: Ability to cope will improve Outcome: Progressing Problem: Health Behavior Goal: Identification of resources available to assist in meeting health care needs will improve Outcome: Progressing Problem: Discharge Planning Goal: Understanding discharge needs will improve Outcome: Progressing Problem: Fall Risk Goal: Ability to state ways to decrease the risk of falls will improve Outcome: Progressing Goal: Will remain free from falls Outcome: Progressing Goal: Will remain free from injury from falls Outcome: Progressing Goals: Clinical Goals for the Shift: VSS; pain management; montor aPTT/heparin drip Summary: -Vital signs stable -free from falls -aPTT monitored and no change needed to heparin drip so far this shift -IV abx given as ordered -pain managed with scheduled and prn pain meds and relaxation -patient currently resting in bed with call light in reach * Assessment & Plan Note - Cielo Soler NP - 11/18/2024 12:37 PM CDT Associated Problem(s): Osteomyelitis of thoracic spine (HCC) MRI obtained 11/17 reporting T10-T11 vertebral bodies and disc space with cortical erosion and paraspinal soft tissue edema, concerning for osteomyelitis discitis at this level. Patient went to IR with aspiration and bone bx obtained. Culture results pending. Patient will need 6 weeks of antibiotics for management of osteomyelitis. Likely organism is the previously recovered enterococcus faecalis. Continue with current antibiotics. Will adjust treatment pending culture results as needed. Recommendations: -Continue Ampicillin and Ceftriaxone -Planning on 6 weeks of antibiotics. Final plan pending other results -Please obtain an ESR and CRP 3 and 6 weeks into treatment * Assessment & Plan Note - Wali Hampton MD - 11/18/2024 12:37 PM CDT Associated Problem(s): Bacteremia due to Enterococcus Patient with E faecalis BSI and concern for metastatic site of infection with possible thoracic spine OM. No evidence of intraabdominal infection due to lack of symptoms and prior negative imaging. Given AVR and PPM there is concern for associated endocarditis and PPM infection that would need to be further evaluated. TTE without overt findings of endocarditis. Patient has vocalized she would notbe open to heart surgery at this time if a valve is found to have endocarditis. She is less sure onher thoughts regarding pacer removal. Briefly discussed a prolonged course of IV antibiotics with the possibility of suppression pending results. Recommendations: - continue ampicillin 2g q6h and ceftriaxone 2g q12h -While on the IV antibiotics, please obtain at least a weekly cbc with diff and CMP for antibiotic toxicity monitoring -OK to stop daily blood cultures -Will follow up on NEVAEH results once obtained * Assessment & Plan Note - Cielo Soler NP - 11/18/2024 12:37 PM CDT Associated Problem(s): Pacemaker (Resolved 11/27/2024) TTE noted wire in right heart. Will await NEVAEH results to assess for vegetation prior to making recommendations on removal. * Assessment & Plan Note - Lia Hernandez MD - 11/18/2024 10:54 AM CDTAssociated Problem(s): Chronic midline thoracic back pain # C/f thoracic discitis / osteomyelitis Chronic back pain since 08/2024. Has had multiple CT scans for workup. Most recent CT thoracic spineshowed c/f discitis osteophyte complex at T10-11, saw NSGY as o/p, told to come to ED for further workup. Endorsing night sweats, 20 lb weight loss, intermittent BUE tingling. No incontinence. No IVDU. Hx of kyphoplasty few years ago to d/t L compression fracture. Hx of OM in foot / leg many years ago iso trauma. ESR/CRP high here. Pending MRI total spine and [facility] IR bx on 11/17. - NSGY signed off on 11/18 as there is no epidural extension or cor compression (MRI report) - Hold warfarin (11/11-) -> heparin gtt for 11/17 IR bx, resumed after - Pain management with GLORY: tylenol 1g q6, robaxin 50mg q8; PRN: oxy 5mg q4 and dilaudid 0.2 IV q2 to breakthrough pain * Assessment & Plan Note - Lia Hernandez MD - 11/18/2024 10:54 AM CDTAssociated Problem(s): Bacteremia due to Enterococcus / BCx + E. faecalis on 11/13. Unclear source. 20lb weight loss over the last few months. - Bcx NGTD since 11/15 - Start Amp (11/14-) and Ceftriaxone (11/14 -) - TTE on 11/14 lVEF 67% no thrombus, mechanical mitral valve w/o dysfunction - NEVAEH planned for 11/17 to assess indication for PPM lead extraction - [facility] Bx with IR on 11/17 - ID consult appreciate recs, repeat daily blood cultures until negative for 48h. * Assessment & Plan Note - Lia Hernandez MD - 11/18/2024 10:54 AM CDTAssociated Problem(s): Pacemaker (Resolved 11/27/2024) #AVR (inspiris resilia, 2019) #Pacemaker ([employer] 2015) #pAF on Coumadin #LVEF 67% (11/14/24) Hx severe s/p AVR placement in and replacement of mechanical AV in 2021. Previously on ECMO reuqiring Mitral valve repair. - Warfarin -> hep gtt in preparation for IR bx on 11/17 - GDMT: on hold coreg (hypotension) and spironolactone (worsening of kidney function and hypotension) * Medical Student - Annalise Rankin - 11/18/2024 9:16 AM CDT [employer] Daily Progress Subjective SUBJECTIVE Kendal Cisneros is a 69 y.o. female with history of CAD s/p CABG (2021), AVR (s/p mechanical valve), MR (s/p repair), pAF on warfarin, pacemaker placement, HFpEF, pHTN, CKD3, HLD, and TUD who presentedto ED per request of neurosurgery with c/f thoracic diskitis/osteomyelitis. Interval History: -Total spine MRI yesterday, read abnormal signal within the T10-T11 vertebral bodies concerning forosteomyelitis discitis -Bone biopsy yesterday, pending cultures -NEVAEH pushed to tomorrow, 11/19 -Pain PRNs: -2x oxycodone Subjective: -2 episodes of nonbloody nonbilious vomiting yesterday evening -Continues to endorse mild baseline pain mid back pain that acutely worsens with movement. -No night sweats, dysuria, diarrhea, dysuria, abdominal pain Objective OBJECTIVE Scheduled Medications: acetaminophen, 1,000 mg, oral, Q6H GLORY ampicillin, 2,000 mg, intravenous, Q6H GLORY [Held by Provider] carvediloL, 12.5 mg, oral, BID with meals (bkfst, dinner) cefTRIAXone, 2,000 mg, intravenous, Q12H GLORY famotidine, 40 mg, oral, Daily fluticasone propionate, 2 spray, each nostril, Daily ojmdtwapcdd-japxsqunp-netlfpjp, 1 puff, inhalation, Daily methocarbamoL, 500 mg, oral, TID rosuvastatin, 40 mg, oral, Daily sertraline, 100 mg, oral, Daily sodium chloride 0.9%, 0.5-20 mL, intra-catheter, Q8H GLORY [Held by Provider] spironolactone, 25 mg, oral, Daily traZODone, 100 mg, oral, Nightly Continuous Medications: heparin, 0-33 Units/kg/hr, Last Rate: 17 Units/kg/hr (11/18/24 0525) PRN Medications: albuterol HFA sodium chloride 0.9% heparin OR heparin HYDROmorphone ondansetron ODT OR ondansetron oxyCODONE perflutren lipid (DEFINITY) 1.5 mL in sodium chloride 0.9% 10 mL syringe polyethylene glycol prochlorperazine sodium chloride 0.9% Vitals: Most Recent : Vitals: 11/18/24 0812 BP: 124/57 Pulse: 72 Resp: 17 Temp: 36.6 ??C (97.9 ??F) SpO2: 96% 24hr Min/Max: Temp Min: 36.5 ??C (97.7 ??F) Max: 36.7 ??C (98.1 ??F) Pulse Min: 68 Max: 88 BP Min: 87/61 Max: 143/61 Resp Min: 8 Max: 20 SpO2 Min: 89 % Max: 100 % I/O: I/O last 2 completed shifts: In: 370 [P.O.:350; I.V.:20] Out: - No intake/output data recorded. Physical Exam: General: Well-developed, well-nourished, appears stated age, NAD HENT: NCAT. Conjunctivae are normal. No scleral icterus. Cardiovascular: S2 midsystolic click. No r/m/g. No peripheral edema Pulmonary/Chest: no respiratory distress. CTAB. No w/r/r Abdomen: soft, +BS. NTND. No rebound tenderness, no guarding Back: Tender along lower thoracic back; no CVA tenderness Skin: warm and dry. Lower thoracic biopsy site is clean, without swelling, hematoma, erythema. Extremities: No pitting edema. Neuro: A&Ox4, no gross neurologic deficits, Psych: Normal mood and affect Lab/Radiology/Diagnostic Review: Recent Results (from the past 24 hours) Protime-INR Collection Time: 11/17/24 2:05 PM Result Value Ref Range PT 15.2 (H) 9.7 - 13.0 sec INR 1.40 (H) 0.90 - 1.20 aPTT Collection Time: 11/17/24 2:05 PM Result Value Ref Range aPTT 27 (L) 28 - 38 sec Mycology (fungal) culture and stain Aspirate Thoracic spine Collection Time: 11/17/24 5:15 PM Specimen: Thoracic spine; Aspirate Result Value Ref Range Report Preliminary Report: No growth of fungus to date Aerobic and anaerobic culture and gram stain Aspirate Thoracic spine Collection Time: 11/17/24 5:15 PM Specimen: Thoracic spine; Aspirate Result Value Ref Range Direct Specimen Exam Stain: No polymorphonuclear leukocytes seen. No organisms seen. Report Preliminary Report: No growth to date. Tissue aerobic and anaerobic culture and gram stain Bone Thoracic spine Collection Time: 11/17/24 5:15 PM Specimen: Thoracic spine; Bone Result Value Ref Range Direct Specimen Exam Stain: No polymorphonuclear leukocytes seen. No organisms seen. Report Preliminary Report: No growth to date. Mycology (fungal) culture Bone Thoracic spine Collection Time: 11/17/24 5:15 PM Specimen: Thoracic spine; Bone Result Value Ref Range Report Preliminary Report: No growth of fungus to date Magnesium Collection Time: 11/18/24 4:25 AM Result Value Ref Range Magnesium 2.4 1.4 - 2.5 mg/dL CBC with auto differential Collection Time: 11/18/24 4:25 AM Result Value Ref Range WBC 4.84 3.80 - 9.90 K/cumm Hgb 8.7 (L) 11.9 - 15.5 g/dL Hct 28.6 (L) 35.6 - 45.5 % Plt 183 150 - 400 K/cumm MPV 11.3 9.1 - 12.3 fL RBC 3.25 (L) 3.90 - 5.20 M/cumm MCV 88.0 81.3 - 96.4 fL MCH 26.8 (L) 27.1 - 33.3 pg MCHC 30.4 (L) 32.3 - 35.7 g/dL RDW CV 14.8 11.1 - 14.9 % RDW SD 47.4 35.7 - 48.1 fL NRBC abs 0.00 0.00 - 0.01 K/cumm Protime-INR Collection Time: 11/18/24 4:25 AM Result Value Ref Range PT 16.1 (H) 9.7 - 13.0 sec INR 1.48 (H) 0.90 - 1.20 Basic metabolic panel Collection Time: 11/18/24 4:25 AM Result Value Ref Range Sodium 141 135 - 145 mmol/L Potassium, pl 3.9 3.3 - 4.9 mmol/L Chloride 106 97 - 110 mmol/L CO2 26 22 - 32 mmol/L Anion gap 9 2 - 15 mmol/L BUN 13 6 - 25 mg/dL Creatinine 1.41 (H) 0.60 - 1.10 mg/dL Glucose 98 70 - 199 mg/dL Calcium 9.7 8.5 - 10.3 mg/dL Differential, auto Collection Time: 11/18/24 4:25 AM Result Value Ref Range Neutrophil abs 2.93 1.50 - 6.50 K/cumm Imm gran abs 0.02 0.00 - 0.10 K/cumm Lymphocyte abs 1.32 0.80 - 3.30 K/cumm Monocyte abs 0.36 0.20 - 0.80 K/cumm Eosinophil abs 0.17 0.00 - 0.50 K/cumm Basophil abs 0.04 0.00 - 0.10 K/cumm Neutrophil pct 60.6 % Imm gran pct 0.4 % Lymphocyte pct 27.3 % Monocyte pct 7.4 % Eosinophil pct 3.5 % Basophil pct 0.8 % aPTT Collection Time: 11/18/24 4:25 AM Result Value Ref Range aPTT 60 (H) 28 - 38 sec eGFR Collection Time: 11/18/24 4:25 AM Result Value Ref Range eGFR 41 (L) >=60 mL/min/1.73 m2 I have reviewed the above laboratory results. Imaging Results: MRI Spine Total Complete W WO Contrast Result Date: 11/17/2024 1. Abnormal signal within the T10-T11 vertebral bodies and disc space with cortical erosion and paraspinal soft tissue edema, concerning for osteomyelitis discitis at this level. 2. Redemonstrated [id number] body compression fracture with postoperative changes of augmentation. 3. Nonspecific hyperintense signal within the david, incompletely evaluated. Recommend dedicated brain MRI if clinicallyindicated. 4. Mild to moderate degenerative changes of the cervical, thoracic, and lumbar spine as above. Dictated by: Ariel Babb M.D. The radiology attending physician has personally reviewed this study, and had reviewed and/or edited this written report and agrees with it. Electronically signed by: Jessica Pagan M.D. IR Biopsy Deep Bone Result Date: 11/17/2024 1. T10-T11 bone/disc biopsy under fluoroscopic guidance. The core specimens and aspirate were sent to surgical pathology and microbiology. Electronically signed by: Riley Joya MD Assessment/Plan ASSESSMENT & PLAN Kendal J Vernon is a 69 y.o. female with history of CAD s/p CABG (2021), AVR (s/p mechanical valve), MR (s/p repair), pAF on warfarin, pacemaker placement, HFpEF, pHTN, CKD3, HLD, and TUD who presentedto ED per request of neurosurgery with c/f thoracic diskitis/osteomyelitis. #Enterococci Bacteremia 07/10 BCx returned positive for Enterococci fecaelis within 16 hrs on 11/13/24. Pt did have any fevers but c/f osteomyelitis. Bacteremia was of unknown source, with subsequent 11/13 TTE showing MV repair with annuloplasty ring, mechanical AV, wire noted in R heart. 11/15 and 11/16 repeat blood cultures were negative for growth. ID following, and per their recs, stopped repeat blood cultures. -Continuing Ampicillin 2g Q6 and ceftriaxone 2g Q12 (11/14-) -NEVAEH 11/19 for further evaluation of PPM leads and MVR/AVR for source identification. #Thoracic back pain c/f osteomyelitis Pt has had worsening thoracic back pain since Aug 2024, worsening with movement. Most recent CT thoracic spine showed new osteolysis, cortical irregularities, subcortical sclerosis and distention ofthe intervertebral disc at T10-T11, concerning for diskitis of the osteophyte complex. BUE tingling, but no incontinence, numbness, or lower extremity paresthesia. History notable for kyphoplasty [id number] secondary to L compression fracture and osteomyelitis in foot. Neurosurgery following. CRP andESR elevated on admission to 17 and 82 respectively. Total spine MRI 11/17 (EP c/s stated that pt's pacemaker is compatible) read abnormal signal within the T10-T11 vertebral bodies and disc space with cortical erosion and paraspinal soft tissue edema, concerning for osteomyelitis discitis at this level. [facility] IR consulted for biopsy, planned for 11/17. Held warfarin for >5 days (11/11-) before procedure, PT/INR before procedure was appropriate; Hepari n ggt started 11/11, therapeutic PTT before procedure at 72. -F/u biopsy results -Pain management regiment: Tylenol 1000 mg Q6 and Robaxin 500 mg TID scheduled; Dilaudid 0.2 g IV Q2 and oxycodone 5 mg oral Q4 PRN for breakthrough pain. #AVR, MR #pAF on Warfarin at home #HFpEF -Pt switched to heparin ggt from Warfarin for upcoming biopsy, PTT therapeutic at 72 on 11/17 -Holding home coreg and lyle as patient's blood pressures have been low on admission #CAD s/p RCA CABG #HLD - Home crestor 40 daily #Mood disorder - Home sertraline 100 daily, trazodone 50 nightly #GERD - Home famotidine #COPD Home regimen: albuterol, breztri, flonase - Flonase, trelegy ellipta - PRN albuterol Code Status: Full Code Diet: Adult Diet Regular DVT Prophylaxis: heparin ggt Dispo: pending Annalise Rankin, medical student Cosigned by Ann Bangura MD at 11/19/2024 1:34 PM CDT * Plan of Care - Cleo Parada RN - 11/18/2024 6:28 AM CDT Problem: Lack of Knowledge Goal: Ability to develop a pain control plan will improve Outcome: Progressing Problem: Medication Goal: Satisfaction with pain management medication regimen will improve Outcome: Progressing Problem: Sensory Goal: Ability to identify factors that increase pain levels will improve while working to decrease the patient's pain levels Outcome: Progressing Problem: Coping Goal: Ability to cope will improve Outcome: Progressing Problem: Health Behavior Goal: Identification of resources available to assist in meeting health care needs will improve Outcome: Progressing Problem: Discharge Planning Goal: Understanding discharge needs will improve Outcome: Progressing Problem: Fall Risk Goal: Ability to state ways to decrease the risk of falls will improve Outcome: Progressing Goal: Will remain free from falls Outcome: Progressing Goal: Will remain free from injury from falls Outcome: Progressing Goals: Clinical Goals for the Shift: Free from falls;VSS;Pain control;Restful night Summary: Pt remained free from falls VSS IV abx given per MAR orders Pain not adequately controled aPTT not therapeutic-heparin running at 17 units;Next aPTT due at 11:25 am No BM/Good urine output CHG bath given Pt had restful night * Consults, Subsequent - Cielo Soler NP - 11/18/2024 5:17 AM CDT Infectious Disease Subsequent Consult Note Infectious Disease Team: General 4 Contact Information: Please see [facility] Treatment Team listing for up-to-date contact information. ID Summary: The patient is a 69 y.o. female with PMH of CAD s/p CABG, AVR 2018, PPM 2015, HTN, Afib, mitral regurg, CHF, CKD, HLD, L1 compression fracture s/p kyphoplasty, who presented with concern for thoracicOM. Patient has chronic intermittent mid thoracic back pain that worsened in Aug 2024, associated with generalized weakness, night sweats, weight loss. No abdominal pain, GI or urinary symptoms. She was initially evaluated at OSH and PCP who suspected kidney stone. Ucx 08/21 grew Klebsiella pneumoniae and was treated for possible UTI with cipro for 7 days without improvement of pain. CT AP 08/22 was performed which was unremarkable. Given persistent and worsening pain she was then seen by NSGY on11/13 and review of OSH CT T/L spine wo contrast 11/10 showed new osteolysis, cortical irregularities,subcortical sclerosis and distension of the intervertebral disc at T10-11 with mild prominent prevertebral soft tissues, concerning for discitis osteophyte complex. She was recommended to present to the ED. ID was consulted on 11/14 for antibiotic recommendations. In the ED she was afebrile and HDS. Labs without leukocytosis, ESR 82 and CRP 17. Bcx on 11/13 growing E faecalis. She was started on ampicillin and ceftriaxone. NSGY consulted and recommended MRI spine and IR biopsy. Pending MRI spine. TTE 11/13 showed MV repair with annuloplasty ring, mechanical AV, wire noted in R heart. Results: -Blood cultures 11/13: enterococcus faecalis -ERS 11/13: 82 -CRP 11/13: 17 -Tte 11/14: Wire noted in R heart. MV repair with annuloplasty rind and mid residual MV insufficiency. Mechanical AV, mild TV regurgitation -Blood cultures 11/15: NGTD -MRI 11/17: T10-T11 vertebral bodies and disc space with cortical erosion and paraspinal soft tissueedema, concerning for osteomyelitis discitis at this level -T10-T11 aspirate 11/17: NGTD -T10-T11 bone bx 11/17: NGTD Assessment/Plan Assessment & Plan Pacemaker TTE noted wire in right heart. Will await NEVAEH results to assess for vegetation prior to making recommendations on removal. Bacteremia due to Enterococcus Patient with E faecalis BSI and concern for metastatic site of infection with possible thoracic spine OM. No evidence of intraabdominal infection due to lack of symptoms and prior negative imaging. Given AVR and PPM there is concern for associated endocarditis and PPM infection that would need to be further evaluated. TTE without overt findings of endocarditis. Patient has vocalized she would notbe open to heart surgery at this time if a valve is found to have endocarditis. She is less sure onher thoughts regarding pacer removal. Briefly discussed a prolonged course of IV antibiotics with the possibility of suppression pending results. Recommendations: - continue ampicillin 2g q6h and ceftriaxone 2g q12h -While on the IV antibiotics, please obtain at least a weekly cbc with diff and CMP for antibiotic toxicity monitoring -OK to stop daily blood cultures -Will follow up on NEVAEH results once obtained Osteomyelitis of thoracic spine (HCC) MRI obtained 11/17 reporting T10-T11 vertebral bodies and disc space with cortical erosion and paraspinal soft tissue edema, concerning for osteomyelitis discitis at this level. Patient went to IR with aspiration and bone bx obtained. Culture results pending. Patient will need 6 weeks of antibiotics for management of osteomyelitis. Likely organism is the previously recovered enterococcus faecalis. Continue with current antibiotics. Will adjust treatment pending culture results as needed. Recommendations: -Continue Ampicillin and Ceftriaxone -Planning on 6 weeks of antibiotics. Final plan pending other results -Please obtain an ESR and CRP 3 and 6 weeks into treatment Perform routine adult screening for HIV and hepatitis B/C with HIV-1/2 Ab/p24 Ag, HBs Ag, Anti-HBs Ab, Anti-HBc Ab total, Anti-HCV Ab. Patient's insurance is contracted by [facility] and will be referred to ID clinic. I have discussed benefits of antimicrobial stewardship with patient/family. Additionally, No activeisolations precautions recommended. Subjective Chief complaint of enterococcus faecalis bacteremia with spinal OM, mechanical valve and pacer in place Interval History: -repeat blood cultures have remained NGTD -MRI with thoracic OM. Bx obtained yesterday -Awaiting NEVAEH Objective Physical Exam: Physical Exam HENT: Head: Normocephalic and atraumatic. Nose: Nose normal. Mouth/Throat: Mouth: Mucous membranes are moist. Cardiovascular: Rate and Rhythm: Normal rate and regular rhythm. Pulmonary: Effort: Pulmonary effort is normal. No respiratory distress. Breath sounds: Normal breath sounds. Abdominal: General: Bowel sounds are normal. Palpations: Abdomen is soft. Tenderness: There is no abdominal tenderness. Musculoskeletal: General: Normal range of motion. Skin: General: Skin is warm and dry. Findings: No rash. Neurological: General: No focal deficit present. Mental Status: She is alert and oriented to person, place, and time. Mental status is at baseline. Psychiatric: Mood and Affect: Mood normal. Behavior: Behavior normal. Thought Content: Thought content normal. Judgment: Judgment normal. Anti-infectives (From admission, onward) Start Dose/Rate Route Frequency Ordered Stop 11/14/24 2100 cefTRIAXone (ROCEPHIN) 2,000 mg/20 mL in sterile water (premix) 2,000 mg 2,000 mg 240 mL/hr over 5 Minutes intravenous Every 12 hours scheduled 11/14/24 1950 11/14/24 0915 ampicillin 2,000 mg/60 mL in sterile water IVPB (premix) 2,000 mg 2,000 mg 120 mL/hr over 30 Minutes intravenous Every 6 hours scheduled 11/14/24 0910 Vitals: 24hr Min/Max: Temp Min: 36.5 ??C (97.7 ??F) Max: 36.7 ??C (98.1 ??F) Pulse Min: 68 Max: 88 BP Min: 87/61 Max: 143/61 Resp Min: 8 Max: 20 SpO2 Min: 90 % Max: 100 % I/O last 2 completed shifts: In: 370 [P.O.:350; I.V.:20] Out: - Active LDAs: Peripheral IV 11/13/24 20 G Left;Posterior Hand (Active) Number of days: 5 Peripheral IV 11/14/24 22 G Anterior;Right Hand (Active) Number of days: 4 Lab/Radiology/Diagnostic Review: I reviewed the following laboratory and imaging result(s). Micro: Susceptibility data from last 14 days. Collected Order Specimen Source Organism Ampicillin Doxycycline High-Level Gentamicin Linezolid Vancomycin 11/13/24 Blood culture Blood Peripheral Peripheral Enterococcus faecalis 11/13/24 Blood culture Blood Peripheral Peripheral Enterococcus faecalis S R S S S Hematology/Chemistry: \ Hgb: 8.7 / WBC: 4.84 Plt: 183 / MCV: 88.0 \ Na: 141 Cl: 106 BUN: 13 /Gluc: 98 K: 3.9 CO2: 26 Cr: 1.41 \M.4 AST: - ALT: - Alk Phos: - Ca: 9.7 TP: - Alb: - TBili: -, DBili: - Imaging:. MRI Spine Total Complete W WO Contrast Result Date: 11/17/2024 1. Abnormal signal within the T10-T11 vertebral bodies and disc space with cortical erosion and paraspinal soft tissue edema, concerning for osteomyelitis discitis at this level. 2. Redemonstrated M0xoosythae body compression fracture with postoperative changes of augmentation. 3. Nonspecific hyperintense signal within the david, incompletely evaluated. Recommend dedicated brain MRI if clinicallyindicated. 4. Mild to moderate degenerative changes of the cervical, thoracic, and lumbar spine as above. Dictated by: Ariel Babb M.D. The radiology attending physician has personally reviewed this study, and had reviewed and/or edited this written report and agrees with it. Electronically signed by: Jessica Pagan M.D. IR Biopsy Deep Bone Result Date: 11/17/2024 1. T10-T11 bone/disc biopsy under fluoroscopic guidance. The core specimens and aspirate were sent to surgical pathology and microbiology. Electronically signed by: Riley Joya MD Patient seen and plan formulated with Dr. Powell. Cielo Soler, Team 4 Infectious Diseases BOX PRINTER Please contact the Team 4 ID BOX PRINTER M-F, 7-3; or the Attending at the phone numbers in care team with any questions or concerns. After hours, please contact the ID fellow electronic tech. Cosigned by Jennifer Pate MD at 11/18/2024 1:24 PM CDT Associated attestation - Jennifer Pate MD - 11/18/2024 1:24 PM CDT I have seen and examined the patient on 11/18/24 in conjunction with the non- physician provider. History: Patient reports ongoing back pain, tolerating abx. Physical Exam: Lungs CTAB, RRR +click. Lab/Radiology/Diagnostics Review: Repeat BCX NGTD. MRI with T10-11 OM and discitis. Assessment/Plan Continue current antibiotic regimen, pending NEVAEH tomorrow to assess AV/MV and PPM leads. Patient isapprehensive about the possibility of having repeat open heart surgery. Today, I am treating the patient for bloodstream infection and endovascular infection which can cause sepsis, septic shock, multiorgan dysfunction and acute heart failure in the short-term future in the absence of appropriate treatment, as described in the note. Reviewed notes by medicine, EP, NSGY to determine appropriate plan of care as in the note. Estimated Creatinine Clearance: 30.6 mL/min (A) (by C-G 65 yr and older- minimum SCr 0.8 based on SCr of 1.41 mg/dL (H)). - reviewed; antibiotics recommended above are dosed accordingly. The patient is being intensively monitored for antimicrobial toxicity from ampicillin and ceftriaxone with the following tests: CBC with diff and CMP. * Post-Procedure Note - Hillary Wu NP - 11/17/2024 5:14 PM CDT Radiology Brief Post Procedure Note Attending: Riley Joya MD Construction Project Mgr: Hillary Wu NP Sedation/Anesthesia: Min Sedation Pre-Op/Pre-Procedure Diagnosis: T10-T11 discitis/osteomyelitis Post-Op/Post-Procedure Diagnosis: Same Procedure Performed: Image guided T10-T11 lesion biopsy and aspiration Procedure Findings: See dictation Complications: None Estimated Blood Loss: < 30 ml Specimens: 4 ml aspirate from disc, 3 cm bone core Condition: Stable Full report to follow. * Pre-Procedure Note - Hillary Wu NP - 11/17/2024 4:27 PM CDT PRE-SEDATION ASSESSMENT/H&P Patient is a 69 y.o. female with PMH of [employer] BiV Pacemaker placed 2015 (not MRI compatible), Lance Mcgratha AVR #21 implanted 12/31/18, h/o LBBB, PHTN, pAF on warfarin (goal 2-3), mitral regurgitation, CHF, 1V CABG SVG to RCA (11/2021) tobacco abuse, CKDIII, hyperlipidemia presents for image guided T10-T11 lesion bone biopsy. Patient is currently admitted with concern for thoracic discitis/osteomyelitis. Warfarin held, INR 1.40 Creatinine 1.40 Allergy to sulfites, atropine, sulfa, hydrocodone NPO since [place] Procedure: Image guided thoracic lesion bone biopsy PMH: Patient Active Problem List Diagnosis Date Noted Bacteremia due to Enterococcus 11/14/2024 Chronic midline thoracic back pain 11/13/2024 Acute on chronic heart failure with preserved ejection fraction (HCC) 05/28/2024 Chronic renal disease, stage IV (HCC) 04/22/2024 Atrial fibrillation (HCC) 10/23/2023 Abnormal PFTs (pulmonary function tests) 07/12/2023 Depression, recurrent 05/21/2023 Encounter for Medicare annual wellness exam 05/21/2023 Stage 3a chronic kidney disease (HCC) 12/24/2022 Nausea and vomiting 07/25/2022 At risk for amiodarone toxicity 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 07/21/2022 Insomnia due to medical condition 03/24/2022 Chronic heart failure with preserved ejection fraction (HCC) 03/16/2022 S/P CABG x 1 03/16/2022 S/P mitral valve repair 03/03/2022 prison (current) use of anticoagulants 03/03/2022 Aftercare following surgery 03/02/2022 Hospital discharge follow-up 02/22/2022 Mobility impaired 02/22/2022 Open wound of lateral abdominal wall with complication 12/24/2021 Critical illness myopathy 12/20/2021 Status post mechanical aortic valve replacement 11/22/2021 Age-related osteoporosis without current pathological fracture 09/01/2021 H/O cardiomyopathy 08/08/2021 History of tobacco abuse 08/08/2021 Shortness of breath 08/08/2021 Coronary artery disease involving [place] coronary artery of [place] heart without angina pectoris 08/08/2021 Chronic anticoagulation 08/08/2021 Ankle swelling 02/16/2021 Acute urinary tract infection 12/16/2020 Dehydration 12/15/2020 Incomplete emptying of bladder 12/15/2020 Pacemaker 08/04/2020 Smoker 08/03/2020 Smokers' cough (HCC) 07/30/2020 Osteoarthritis of right knee 06/11/2019 Arthritis of knee 06/10/2019 Anxiety 01/24/2019 Paroxysmal atrial fibrillation (HCC) 01/15/2019 Aortic valve replaced 11/14/2018 Spondylosis of lumbar region without myelopathy or radiculopathy 11/30/2015 Essential hypertension 10/20/2015 Status post biventricular pacemaker 10/20/2015 Osteopenia 01/29/2015 CHF (congestive heart failure), NYHA class III (HCC) 12/25/2012 Pulmonary HTN (HCC) 11/18/2012 Pulmonary nodule, left 11/18/2012 S/P cholecystectomy 11/18/2012 S/P hysterectomy with oophorectomy 11/18/2012 Chronic pain 12/06/2011 GERD (gastroesophageal reflux disease) 12/06/2011 Depression 10/26/2011 Mixed hyperlipidemia 10/26/2011 History of Sedation/Anesthesia Complications: No History of Difficult Airway: No HISTORY PSH Past Surgical History: Procedure Laterality Date ANTERIOR CRUCIATE LIGAMENT REPAIR Right 2003 AORTIC VALVE REPLACEMENT 2019 21mm Inspiris AORTIC VALVULOPLASTY 2019 CARDIAC VALVE REPLACEMENT 2019 CHOLECYSTECTOMY 2018 HYSTERECTOMY 1986 INSERT / REPLACE / REMOVE PACEMAKER 2015 original 2012 KYPHOPLASTY 2021 SKIN CANCER EXCISION Social History: Social History Tobacco Use Smoking status: Former Current packs/day: 0.00 Types: Cigarettes Start date: 1973 Quit date: 11/22/2021 Years since quittin.9 Smokeless tobacco: Never Tobacco comments: now down to 5 cigs/day Substance and Sexual Activity Drug use: Yes Types: Medical marijuana Sexual activity: Not Currently Partners: Male control/protection: Post-menopausal Alcohol Use: Not At Risk (09/15/2024) AUDIT-C Frequency of Alcohol Consumption: Never Average Number of Drinks: Not on file Frequency of Binge Drinking: Not on file Family History: Family History Problem Relation Age of Onset Heart disease Mother Heart failure Mother Hypertension Mother Alzheimer's disease Maternal Grandmother 65 No Known Problems Paternal Grandmother Heart disease Father Heart failure Father Hypertension Father Other (heart surgery) Father Heart attack Maternal Grandfather No Known Problems Paternal Grandfather Ovarian cancer Neg Hx Breast cancer Neg Hx Thyroid cancer Neg Hx REVIEW OF SYSTEMS: Review of systems per HPI and otherwise all other systems are negative MEDICATIONS Current Meds: Current Facility-Administered Medications: acetaminophen (TYLENOL) tablet 1,000 mg, 1,000 mg, oral, Q6H Pantera HOLDER Roberta, MD, 1,000 mg at 11/17/24 0532 albuterol HFA (PROVENTIL HFA,VENTOLIN HFA,PROAIR HFA) 90 mcg/actuation inhaler 2 puff, 2 puff, inhalation, Q4H PRN (RT), Eliane Feng NP ampicillin 2,000 mg/60 mL in sterile water IVPB (premix) 2,000 mg, 2,000 mg, intravenous, Q6H [facility], MD, Last Rate: 120 mL/hr at 11/17/24 1359, 2,000 mg at 11/17/24 1359 Carrier Fluids for Secondary Infusion - 0.9% Sodium Chloride, 30 mL, intravenous, PRN, HollyM. Feng NP [Held by Provider] carvediloL (COREG) tablet 12.5 mg, 12.5 mg, oral, BID with meals (bkfst, dinner), Eliane Feng NP, 12.5 mg at 11/13/24 1711 cefTRIAXone (ROCEPHIN) 2,000 mg/20 mL in sterile water (premix) 2,000 mg, 2,000 mg, intravenous, Q12H [facility], Kandis Spencer MD, 2,000 mg at 11/17/24 0828 famotidine (PEPCID) tablet 40 mg, 40 mg, oral, Daily, Eliane Feng NP, 40 mg at 11/17/24 0828 fluticasone propionate (FLONASE) 50 mcg/actuation nasal spray 2 spray, 2 spray, each nostril, Daily, Eliane Feng NP, 2 spray at 11/15/24 0842 jjokgmghufk-qrvbxwbcz-cuktowui (TRELEGY ELLIPTA) 200-62.5-25 mcg inhaler 1 puff, 1 puff, inhalation, Daily, Kandis Spencer MD, 1 puff at 11/15/24 0842 heparin 1,000 unit/mL injection 2,000 Units, 2,000 Units, intravenous, Q6H PRN OR heparin 1,000unit/mL injection 3,000 Units, 3,000 Units, intravenous, Q6H PRN, Sher Adams MD [Held by Provider] heparin in 0.45% sodium chloride 25,000 units/250 mL (100 units/mL) infusion (premix), 0-33 Units/kg/hr, intravenous, Titrated, Sher Adams MD, Stopped at 11/17/24 0957 HYDROmorphone (DILAUDID) injection 0.2 mg, 0.2 mg, intravenous, Q2H PRN, Lia Hernandez MD methocarbamoL (ROBAXIN) tablet 500 mg, 500 mg, oral, TID, Lia Hernandez MD, 500 mg at 11/16/242005 ondansetron ODT (ZOFRAN-ODT) disintegrating tablet 4 mg, 4 mg, oral, Q6H PRN, 4 mg at 11/17/24 0607OR ondansetron (ZOFRAN) injection 4 mg, 4 mg, intravenous, Q6H PRN, Lia Hernandez MD oxyCODONE (ROXICODONE) tablet 5 mg, 5 mg, oral, Q4H PRN, Lia Hernandez MD, 5 mg at 11/16/24 2246 perflutren lipid (DEFINITY) 1.5 mL in sodium chloride 0.9% 10 mL syringe, 1-10 mL, intravenous, Once in imaging, Kandis Spencer MD polyethylene glycol (MIRALAX) packet 17 g, 17 g, oral, Daily PRN, Eliane Feng, JULIETA prochlorperazine (COMPAZINE) injection 5 mg, 5 mg, intravenous, Q6H PRN, Lia Hernandez MD rosuvastatin (CRESTOR) tablet 40 mg, 40 mg, oral, Daily, Eliane Feng, BOX PRINTER, 40 mg at 11/17/24 0828 sertraline (ZOLOFT) tablet 100 mg, 100 mg, oral, Daily, Eliane Feng, BOX PRINTER, 100 mg at 11/17/24 0828 sodium chloride 0.9% flush 0.5-20 mL, 0.5-20 mL, intra-catheter, Q8H GLORY, Eliane Feng, BOX PRINTER, 10 mL at 11/17/24 0535 sodium chloride 0.9% flush 0.5-20 mL, 0.5-20 mL, intra-catheter, PRN, Eliane Feng, JULIETA [Held by Provider] spironolactone (ALDACTONE) tablet 25 mg, 25 mg, oral, Daily, Eliane Feng, BOX PRINTER traZODone (DESYREL) tablet 100 mg, 100 mg, oral, Nightly, Eliane Feng, BOX PRINTER, 100 mg at 11/16/242005 Home Meds: HOME MEDICATIONS : albuterol HFA (Proventil HFA) 90 mcg/actuation inhaler Breztri Aerosphere 160-9-4.8 mcg/actuation inhaler carvediloL (COREG) 12.5 mg tablet cholecalciferol (VITAMIN D-3) 2000 unit tablet cyclobenzaprine (FLEXERIL) 5 mg tablet famotidine (PEPCID) 40 mg tablet ferrous sulfate 325 mg (65 mg of elemental iron) tablet fluticasone propionate (FLONASE) 50 mcg/actuation nasal spray furosemide (LASIX) 20 mg tablet hydrocortisone (ANUSOL-HC) 1 % cream with perineal applicator ondansetron ODT (ZOFRAN-ODT) 4 mg disintegrating tablet rosuvastatin (CRESTOR) 40 mg tablet sertraline (ZOLOFT) 100 mg tablet spironolactone (ALDACTONE) 25 mg tablet traZODone (DESYREL) 50 mg tablet warfarin (COUMADIN) 3 mg tablet Allergies: Allergies Allergen Reactions Atropine Hypotension SEVERE hypotension Sulfites Nausea And Vomiting Hydrocodone-Acetaminophen Itching Sulfa (Sulfonamide Antibiotics) Nausea only Vitals: Vitals: 11/17/24 1313 11/17/24 1318 11/17/24 1323 11/17/24 1529 BP: 119/64 110/60 124/52 121/65 BP Location: Left arm Patient Position: Lying;HOB 30 degrees Pulse: 85 79 68 74 Resp: 20 Temp: 36.7 ??C (98.1 ??F) TempSrc: Oral SpO2: 92% 91% 90% 91% Weight: Height: LABS Pertinent Labs: Recent Labs Lab Units 11/17/24 0133 11/16/24 2302 11/15/24 2346 WBC K/cumm 5.26 4.20 4.47 HEMOGLOBIN g/dL 7.4* 7.1* 8.6* HEMATOCRIT % 24.0* 22.8* 27.5* PLATELETS K/cumm 175 160 172 Recent Labs Lab Units 11/17/24 0133 11/16/24 2302 11/15/24 1308 11/13/24 2235 11/13/24 1419 SODIUM mmol/L 142 137 140 < > 139 POTASSIUM PLASMA mmol/L 4.0 3.3 4.2 < > 3.9 CHLORIDE mmol/L 107 88* 106 < > 102 CO2 mmol/L 26 22 26 < > 27 BUN SERUM mg/dL 16 14 16 < > 13 CREATININE mg/dL 1.40* 1.20* 1.38* < > 1.42* CALCIUM mg/dL 9.1 7.7* 9.2 < > 9.5 AST Units/L -- -- -- -- 18 ALT Units/L -- -- -- -- 10 < > = values in this interval not displayed. Recent Labs Lab Units 11/17/24 1405 11/17/24 0540 11/16/24 2302 PROTIME (PT) sec 15.2* 16.4* 18.7* INR 1.40* 1.51* 1.71* APTT sec 27* 72* 62* IMAGING Reviewed PERTINENT PHYSICAL EXAM Constitutional: alert and oriented x3 and no acute distress Lungs: Normal expansion. Clear to auscultation. No rales, rhonchi, or wheezing., No chest wall tenderness. Heart: Heart sounds are normal. Regular rate and rhythm without murmur, gallop or rub. Heart regular rate and rhythm Assessment: Patient is a 69 y.o. female with PMH of [employer] BiV Pacemaker placed 2015 (not MRI compatible), Inspiris Resilia AVR #21 implanted 12/31/18, h/o LBBB, PHTN, pAF on warfarin (goal 2-3), mitral regurgitation, CHF, 1V CABG SVG to RCA (11/2021) tobacco abuse, CKDIII, hyperlipidemia presents for image guided T10-T11 lesion bone biopsy. Patient is currently admitted with concern for thoracic d iscitis/osteomyelitis. Warfarin held, INR 1.40 Creatinine 1.40 Allergy to sulfites, atropine, sulfa, hydrocodone NPO since [place] Airway Exam: normal ASA Classification:Class 3: Patient with severe systemic disease Sedation Plan: Min Sedation Adjunctive Procedures: None NONE PO status: Last PO: NPO since midnight * Plan of Care - Emma Smallwood RN - 11/17/2024 3:29 PM CDT Problem: Lack of Knowledge Goal: Ability to develop a pain control plan will improve Outcome: Progressing Problem: Medication Goal: Satisfaction with pain management medication regimen will improve Outcome: Progressing Problem: Sensory Goal: Ability to identify factors that increase pain levels will improve while working to decrease the patient's pain levels Outcome: Progressing Problem: Coping Goal: Ability to cope will improve Outcome: Progressing Problem: Health Behavior Goal: Identification of resources available to assist in meeting health care needs will improve Outcome: Progressing Problem: Discharge Planning Goal: Understanding discharge needs will improve Outcome: Progressing Problem: Fall Risk Goal: Ability to state ways to decrease the risk of falls will improve Outcome: Progressing Goal: Will remain free from falls Outcome: Progressing Goal: Will remain free from injury from falls Outcome: Progressing Goals: Clinical Goals for the Shift: VSS; free from falls; pain managment Summary: -Vital signs stable -free from falls -pain managed with scheduled tylenol -MRI done this AM -plan for IR this evening; hep drip held at 1000 for procedure -patient currently resting in bed with call light in reach * Assessment & Plan Note - Ann Bangura MD - 11/17/2024 1:11 PM CDTAssociated Problem(s): Chronic midline thoracic back pain # C/f thoracic discitis / osteomyelitis Chronic back pain since 08/2024. Has had multiple CT scans for workup. Most recent CT thoracic spineshowed c/f discitis osteophyte complex at T10-11, saw NSGY as o/p, told to come to ED for further workup. Endorsing night sweats, 20 lb weight loss, intermittent BUE tingling. No incontinence. No IVDU. Hx of kyphoplasty few years ago to d/t L compression fracture. Hx of OM in foot / leg many years ago iso trauma. ESR/CRP high here. Pending MRI total spine and MS[facility] IR bx on 11/17. - NSGY following - Hold warfarin (11/11-) -> heparin gtt for 11/17 IR bx - Pain management with GLORY: tylenol 1g q6, robaxin 50mg q8; PRN: oxy 5mg q4 and dilaudid 0.2 IV q2 to breakthrough pain * Assessment & Plan Note - Ann Bangura MD - 11/17/2024 1:11 PM CDTAssociated Problem(s): Bacteremia due to Enterococcus 07/10 BCx + E. faecalis on 11/13. Unclear source. 20lb weight loss over the last few months. - Bcx NGTD since 11/15 - Start Amp (11/14-) and Ceftriaxone (11/14 -) - TTE on 11/14 lVEF 67% no thrombus, mechanical mitral valve w/o dysfunction - NEVAEH planned for 11/17 to assess indication for PPM lead extraction - MSK Bx with IR on 11/17 - ID consult appreciate recs, repeat daily blood cultures until negative for 48h * Assessment & Plan Note - Ann Bangura MD - 11/17/2024 1:11 PM CDTAssociated Problem(s): Pacemaker (Resolved 11/27/2024) #AVR (inspiris resilia, 2019) #Pacemaker ([employer] Biv 2015) #pAF on Coumadin #LVEF 67% (11/14/24) Hx severe s/p AVR placement in and replacement of mechanical AV in 2021. Previously on ECMO reuqiring Mitral valve repair. - Warfarin -> hep gtt in preparation for IR bx on 11/17 - GDMT: on hold coreg (hypotension) and spironolactone (worsening of kidney function and hypotension) * Medical Student - Annalise Rankin - 11/17/2024 11:15 AM CDT Medicine [employer] Daily Progress Subjective SUBJECTIVE Kendal Cisneros is a 69 y.o. female with history of CAD s/p 1V CABG (SVG to RCA 2021), AVR (inspiris resilia placed 2018, mechanical valve placed 2021), MR (s/p repair 03/03/22), pAF on warfarin (goal 2-3), pacemaker placement ([employer] BiV, 2015, replaced 2020 with MRI compatible), HFpEF (EF 65-70% 2023), LBBB, pHTN, CKD3, HLD, and TUD who presented to ED per request of neurosurgery with c/f thoracic diskitis/osteomyelitis. Interval History: -NPO at midnight for NEVAEH today -Pain management PRN: -2x Tylenol -2x oxycodone Subjective: -2 episodes of nonbloody, non bilious vomiting this AM. 1 similar episode last night. Patient reports it was clear, phlegmy, and attributes her nausea to anxiety for the upcoming procedures. -Pain is at a 4-5/10 at rest. -With movement, pain increases acutely to a 9/10. -Patient has had night sweats. -Denies fever, chills, abdominal pain, dysuria, constipation, or diarrhea. Objective OBJECTIVE Scheduled Medications: acetaminophen, 1,000 mg, oral, Q6H GLORY ampicillin, 2,000 mg, intravenous, Q6H GLORY [Held by Provider] carvediloL, 12.5 mg, oral, BID with meals (bkfst, dinner) cefTRIAXone, 2,000 mg, intravenous, Q12H GLORY famotidine, 40 mg, oral, Daily fluticasone propionate, 2 spray, each nostril, Daily kvuvputcigm-oobcxmwtt-ntujqnvg, 1 puff, inhalation, Daily methocarbamoL, 500 mg, oral, TID rosuvastatin, 40 mg, oral, Daily sertraline, 100 mg, oral, Daily sodium chloride 0.9%, 0.5-20 mL, intra-catheter, Q8H GLORY [Held by Provider] spironolactone, 25 mg, oral, Daily traZODone, 100 mg, oral, Nightly Continuous Medications: [Held by Provider] heparin, 0-33 Units/kg/hr, Last Rate: Stopped (11/17/24 0957) PRN Medications: albuterol HFA sodium chloride 0.9% heparin OR heparin HYDROmorphone ondansetron ODT OR ondansetron oxyCODONE perflutren lipid (DEFINITY) 1.5 mL in sodium chloride 0.9% 10 mL syringe polyethylene glycol prochlorperazine sodium chloride 0.9% Vitals: Most Recent : Vitals: 11/17/24 1108 BP: 105/53 Pulse: 73 Resp: Temp: SpO2: 92% 24hr Min/Max: Temp Min: 36.3 ??C (97.3 ??F) Max: 36.6 ??C (97.9 ??F) Pulse Min: 70 Max: 87 BP Min: 95/55 Max: 124/74 Resp Min: 18 Max: 18 SpO2 Min: 89 % Max: 98 % I/O: I/O last 2 completed shifts: In: 40 [I.V.:40] Out: - No intake/output data recorded. Physical Exam: General: Well-developed, well-nourished, appears stated age, NAD HENT: NCAT. Conjunctivae are normal. No scleral icterus. Neck: Neck supple. No thyromegaly. No JVD Cardiovascular: S2 systolic click best heard over R upper sternal border. No r/m/g. No peripheral edema Pulmonary/Chest: no respiratory distress. CTAB. No w/r/r Abdomen: soft, +BS. NTND. No rebound tenderness, no guarding Back: Tenderness to palpation on midthoracic spinous processes; no CVA tenderness Skin: warm and dry. Ecchymoses on BUE at blood draw sites. Extremities: 2+ radial, DP pulses Neuro: A&Ox4, no focal neurologic deficits, 5/5 strength in all extremities Psych: Patient is anxious for upcoming procedures. Normal affect Lab/Radiology/Diagnostic Review: Recent Results (from the past 24 hours) Blood culture Blood Collection Time: 11/16/24 11:31 AM Specimen: Blood Result Value Ref Range Report Preliminary Report: No growth to date. Blood culture Blood Collection Time: 11/16/24 11:31 AM Specimen: Blood Result Value Ref Range Report Preliminary Report: No growth to date. Magnesium Collection Time: 11/16/24 11:02 PM Result Value Ref Range Magnesium 1.8 1.4 - 2.5 mg/dL CBC with auto differential Collection Time: 11/16/24 11:02 PM Result Value Ref Range WBC 4.20 3.80 - 9.90 K/cumm Hgb 7.1 (L) 11.9 - 15.5 g/dL Hct 22.8 (L) 35.6 - 45.5 % Plt 160 150 - 400 K/cumm MPV 11.1 9.1 - 12.3 fL RBC 2.67 (L) 3.90 - 5.20 M/cumm MCV 85.4 81.3 - 96.4 fL MCH 26.6 (L) 27.1 - 33.3 pg MCHC 31.1 (L) 32.3 - 35.7 g/dL RDW CV 14.6 11.1 - 14.9 % RDW SD 45.5 35.7 - 48.1 fL NRBC abs 0.00 0.00 - 0.01 K/cumm Protime-INR Collection Time: 11/16/24 11:02 PM Result Value Ref Range PT 18.7 (H) 9.7 - 13.0 sec INR 1.71 (H) 0.90 - 1.20 Basic metabolic panel Collection Time: 11/16/24 11:02 PM Result Value Ref Range Sodium 137 135 - 145 mmol/L Potassium, pl 3.3 3.3 - 4.9 mmol/L Chloride 88 (L) 97 - 110 mmol/L CO2 22 22 - 32 mmol/L Anion gap 27 (Critical) 2 - 15 mmol/L BUN 14 6 - 25 mg/dL Creatinine 1.20 (H) 0.60 - 1.10 mg/dL Glucose 69 (L) 70 - 199 mg/dL Calcium 7.7 (L) 8.5 - 10.3 mg/dL aPTT Collection Time: 11/16/24 11:02 PM Result Value Ref Range aPTT 62 (H) 28 - 38 sec Differential, auto Collection Time: 11/16/24 11:02 PM Result Value Ref Range Neutrophil abs 2.84 1.50 - 6.50 K/cumm Imm gran abs 0.03 0.00 - 0.10 K/cumm Lymphocyte abs 0.87 0.80 - 3.30 K/cumm Monocyte abs 0.31 0.20 - 0.80 K/cumm Eosinophil abs 0.12 0.00 - 0.50 K/cumm Basophil abs 0.03 0.00 - 0.10 K/cumm Neutrophil pct 67.6 % Imm gran pct 0.7 % Lymphocyte pct 20.7 % Monocyte pct 7.4 % Eosinophil pct 2.9 % Basophil pct 0.7 % Critical Result Callback Chemistry Collection Time: 11/16/24 11:02 PM Result Value Ref Range Date Notified [id number] Time Notified 111 TestName Anion Gap Called/Read Back Cleo Luna Credentials RN Called By [facility] [place] Collection Time: 11/16/24 11:02 PM Result Value Ref Range eGFR 50 (L) >=60 mL/min/1.73 m2 POCT glucose Collection Time: 11/17/24 1:32 AM Result Value Ref Range Glucose, POC 125 70 - 199 mg/dL Basic metabolic panel Collection Time: 11/17/24 1:33 AM Result Value Ref Range Sodium 142 135 - 145 mmol/L Potassium, pl 4.0 3.3 - 4.9 mmol/L Chloride 107 97 - 110 mmol/L CO2 26 22 - 32 mmol/L Anion gap 9 2 - 15 mmol/L BUN 16 6 - 25 mg/dL Creatinine 1.40 (H) 0.60 - 1.10 mg/dL Glucose 120 70 - 199 mg/dL Calcium 9.1 8.5 - 10.3 mg/dL CBC with auto differential Collection Time: 11/17/24 1:33 AM Result Value Ref Range WBC 5.26 3.80 - 9.90 K/cumm Hgb 7.4 (L) 11.9 - 15.5 g/dL Hct 24.0 (L) 35.6 - 45.5 % Plt 175 150 - 400 K/cumm MPV 11.1 9.1 - 12.3 fL RBC 2.80 (L) 3.90 - 5.20 M/cumm MCV 85.7 81.3 - 96.4 fL MCH 26.4 (L) 27.1 - 33.3 pg MCHC 30.8 (L) 32.3 - 35.7 g/dL RDW CV 14.6 11.1 - 14.9 % RDW SD 46.0 35.7 - 48.1 fL NRBC abs 0.00 0.00 - 0.01 K/cumm Differential, auto Collection Time: 11/17/24 1:33 AM Result Value Ref Range Neutrophil abs 3.50 1.50 - 6.50 K/cumm Imm gran abs 0.02 0.00 - 0.10 K/cumm Lymphocyte abs 1.11 0.80 - 3.30 K/cumm Monocyte abs 0.41 0.20 - 0.80 K/cumm Eosinophil abs 0.19 0.00 - 0.50 K/cumm Basophil abs 0.03 0.00 - 0.10 K/cumm Neutrophil pct 66.5 % Imm gran pct 0.4 % Lymphocyte pct 21.1 % Monocyte pct 7.8 % Eosinophil pct 3.6 % Basophil pct 0.6 % eGFR Collection Time: 11/17/24 1:33 AM Result Value Ref Range eGFR 41 (L) >=60 mL/min/1.73 m2 aPTT Collection Time: 11/17/24 5:40 AM Result Value Ref Range aPTT 72 (H) 28 - 38 sec Protime-INR Collection Time: 11/17/24 5:40 AM Result Value Ref Range PT 16.4 (H) 9.7 - 13.0 sec INR 1.51 (H) 0.90 - 1.20 I have reviewed the above laboratory results. Imaging Results: No results found. Assessment/Plan ASSESSMENT & PLAN Kendal Cisneros is a 69 y.o. female with history of CAD s/p 1V CABG (SVG to RCA 2021), AVR (inspiris resilia placed 2018, mechanical valve placed 2021), MR (s/p repair 03/03/22), pAF on warfarin (goal 2-3), pacemaker placement ([employer] BiV, 2015, replaced 2020 with MRI compatible), HFpEF (EF 65-70% 2023), LBBB, pHTN, CKD3, HLD, and TUD who [resented to ED per request of neurosurgery with c/f thoracic diskitis/osteomyelitis. #Enterococci Bacteremia 07/10 BCx returned positive for Enterococci fecaelis within 16 hrs. Pt has not had any fevers but haspossible osteomyelitis, pending MRI spine. Unknown source, 11/13 TTE showed MV repair with annuloplasty ring, mechanical AV, wire noted in R heart. -Cont Ampicillin 2g Q6 and ceftriaxone 2g Q12 (11/14-) -ID consulted, requested NEVAEH for further evaluation of PPM leads and MVR/AVR. -11/15 and 11/16 x2 blooc cultures negative for growth. Per ID recs, stopping repeat blood cultures. #Thoracic back pain c/f osteomyelitis Pt has had worsening thoracic back pain since Aug 2024, worsening with movement. Most recent CT thoracic spine showed new osteolysis, cortical irregularities, subcortical sclerosis and distention ofthe intervertebral disc at T10-T11, concerning for diskitis of the osteophyte complex. BUE tingling, but no incontinence, numbness, or lower extremity paresthesia. History notable for kyphoplasty [id number] secondary to L compression fracture and osteomyelitis in foot. -Neurosurgery following -CRP and ESR elevated to 17 and 82 respectively -ID following, treating bacteremia and NEVAEH for source evaluation and infection control as describedabove -Total spine MRI 11/17, EP c/s stated that pt's pacemaker is compatible. -[facility] IR consulted for biopsy, planned for 11/17. Held warfarin for >5 days (11/11-) before procedure, f/I PT/INR before procedure. Heparin ggt started 11/11, therapeutic PTT before procedure at 72 on 11/17. -Pain management regiment: Tylenol 1000 mg Q6 and Robaxin 500 mg TID scheduled; Dilaudid 0.2 g IV Q2 and oxycodone 5 mg oral Q4 PRN for breakthrough pain. #AVR, MR #pAF on Warfarin at home #HFpEF -Pt switched to heparin ggt from Warfarin for upcoming biopsy, PTT therapeutic at 72 on 11/17 -Holding home coreg and lyle as patient's blood pressures have been low on admission #CAD s/p RCA CABG #HLD - Home crestor 40 daily #Mood disorder - Home sertraline 100 daily, trazodone 50 nightly #GERD - Home famotidine #COPD Home regimen: albuterol, breztri, flonase - Flonase, trelegy ellipta - PRN albuterol Code Status: Full Code Diet: NPO Diet DVT Prophylaxis: Heparin Dispo: Pending Annalise Rankin, Medical student Cosigned by Ann Bangura MD at 11/19/2024 1:39 PM CDT * Plan of Care - Waleska Cedeño RN - 11/17/2024 11:03 AM CDT CM Progression of Care Update Per Medical Chart/Rounds/IDR: Patient is not medically ready to discharge from the hospital ADD: 11/19 Plan/Barriers: Biopsy and NEVAEH pending, ABX Referrals: [facility] Transportation: family F/U Appointments: will schedule prior to discharge Patient's Identified Problem/Goal Problem:?Ensure acute medical needs are met and that patient has a safe discharge plan. Goal:?Secure a discharge plan that patient/family are agreeable with?and ensure patient has continuum of care. Patient and/or family are agreeable with plan. health policy manager will continue to follow and assist with discharge planning as needed. If any further discharge needs arise, please contact the covering classification case manager. * Plan of Care - Cleo Parada RN - 11/17/2024 4:40 AM CDT Problem: Lack of Knowledge Goal: Ability to develop a pain control plan will improve Outcome: Progressing Problem: Medication Goal: Satisfaction with pain management medication regimen will improve Outcome: Progressing Problem: Sensory Goal: Ability to identify factors that increase pain levels will improve while working to decrease the patient's pain levels Outcome: Progressing Problem: Coping Goal: Ability to cope will improve Outcome: Progressing Problem: Health Behavior Goal: Identification of resources available to assist in meeting health care needs will improve Outcome: Progressing Problem: Discharge Planning Goal: Understanding discharge needs will improve Outcome: Progressing Problem: Fall Risk Goal: Ability to state ways to decrease the risk of falls will improve Outcome: Progressing Goal: Will remain free from falls Outcome: Progressing Goal: Will remain free from injury from falls Outcome: Progressing Goals: Clinical Goals for the Shift: Free from falls;VSS;Pain control; Theraputic aPTT;Restful night Summary: Pt remained free from falls VSS IV abx given per MAR orders Pain partially controled aPTT not therapeutic-heparin running at 16 units One BM/Good urine output CHG bath given NPO for a procedure today Pt had restful night * Plan of Care - August Garcia - 11/16/2024 6:10 PM CDT Problem: Lack of Knowledge Goal: Ability to develop a pain control plan will improve Outcome: Progressing Problem: Medication Goal: Satisfaction with pain management medication regimen will improve Outcome: Progressing Problem: Sensory Goal: Ability to identify factors that increase pain levels will improve while working to decrease the patient's pain levels Outcome: Progressing Problem: Coping Goal: Ability to cope will improve Outcome: Progressing Problem: Health Behavior Goal: Identification of resources available to assist in meeting health care needs will improve Outcome: Progressing Problem: Discharge Planning Goal: Understanding discharge needs will improve Outcome: Progressing Problem: Fall Risk Goal: Ability to state ways to decrease the risk of falls will improve Outcome: Progressing Goal: Will remain free from falls Outcome: Progressing Goal: Will remain free from injury from falls Outcome: Progressing Goals: Clinical Goals for the Shift: VSS, pain management, heparin management, free from falls/injuries, compliant with nursing cares Summary: Pt remained free from falls VSS IV abx given per MAR orders PRN oxy given per pt request aPTT therapeutic-heparin running at 15 units Compliant with nursing cares * Assessment & Plan Note - Lia Hernandez MD - 11/16/2024 10:06 AM CDTAssociated Problem(s): Chronic midline thoracic back pain # C/f thoracic discitis / osteomyelitis Chronic back pain since 08/2024. Has had multiple CT scans for workup. Most recent CT thoracic spineshowed c/f discitis osteophyte complex at T10-11, saw NSGY as o/p, told to come to ED for further workup. Endorsing night sweats, 20 lb weight loss, intermittent BUE tingling. No incontinence. No IVDU. Hx of kyphoplasty few years ago to d/t L compression fracture. Hx of OM in foot / leg many years ago iso trauma. - NSGY following - ESR/CRPhigh - MRI spine, EP consulted on 11/14, pacemaker interrogation showed non dependence and MRI was contacted, waiting for MRI to be scheduled - [facility] IR c/s for c/o biopsy - HOLD warfarin x 5 day before procedure, possible procedure on Sunday - Hold warfarin () -> heparin gtt until procedures are done - Repeated TTE to rule out valvular vegetation/ICD infection, ordered NEVAEH on 11/15 as TTE was unremarkable and patinet has mechanical valve and pacemaker - NEVAEH programed for 11/17 - Pain management with GLORY: tylenol 1g q6, robaxin 50mg q8; PRN: oxy 5mg q4 and dilaudid 0.2 IV q2 to breakthrough pain * Assessment & Plan Note - Lia Hernandez MD - 11/16/2024 10:06 AM CDTAssociated Problem(s): Bacteremia due to Enterococcus 1/2 BCx + E. faecalis on 11/13. Unclear source. 20lb weight loss over the last few months. - Daily BCx - repeat daily blood cultures until negative for 48h - Start Amp (11/14-) and Ceftriaxone (11/14 -) - TTE on 11/14 lVEF 67% no thrombus, mechanical mitral valve w/o dysfunction - Waiting for NEVAEH - probably on 11/17 - [facility] Bx with IR on 11/17 - ID consult appreciate recs, repeat daily blood cultures until negative for 48h * Assessment & Plan Note - Lia Hernandez MD - 11/16/2024 10:06 AM CDTAssociated Problem(s): Pacemaker (Resolved 11/27/2024) #AVR (inspiris resilia, 2019) #pAF on Coumadin #LVEF 67% (11/14/24) Hx severe s/p AVR placement in and replacement of mechanical AV in 2021. Previously on ECMO reuqiring Mitral valve repair. - Warfarin -> hep gtt in preparation for IR bx on Sunday - GDMT: on hold coreg (hypotension) and spironolactone (worsening of kidney function and hypotension) * Plan of Care - Cleo Parada RN - 11/16/2024 5:28 AM CDT Problem: Lack of Knowledge Goal: Ability to develop a pain control plan will improve Outcome: Progressing Problem: Medication Goal: Satisfaction with pain management medication regimen will improve Outcome: Progressing Problem: Sensory Goal: Ability to identify factors that increase pain levels will improve while working to decrease the patient's pain levels Outcome: Progressing Problem: Coping Goal: Ability to cope will improve Outcome: Progressing Problem: Health Behavior Goal: Identification of resources available to assist in meeting health care needs will improve Outcome: Progressing Problem: Discharge Planning Goal: Understanding discharge needs will improve Outcome: Progressing Problem: Fall Risk Goal: Ability to state ways to decrease the risk of falls will improve Outcome: Progressing Goal: Will remain free from falls Outcome: Progressing Goal: Will remain free from injury from falls Outcome: Progressing Goals: Clinical Goals for the Shift: Free from falls;VSS;Pain control; Theraputic aPTT;Restful night Summary: Pt remained free from falls VSS IV abx given per SEP orders Pain partially controled aPTT therapeutic-heparin running at 15 units No BM/Good urine output CHG bath given Pt had restful night * Plan of Care - August Garcia - 11/15/2024 6:13 PM CDT Problem: Lack of Knowledge Goal: Ability to develop a pain control plan will improve Outcome: Progressing Problem: Medication Goal: Satisfaction with pain management medication regimen will improve Outcome: Progressing Problem: Sensory Goal: Ability to identify factors that increase pain levels will improve while working to decrease the patient's pain levels Outcome: Progressing Problem: Coping Goal: Ability to cope will improve Outcome: Progressing Problem: Health Behavior Goal: Identification of resources available to assist in meeting health care needs will improve Outcome: Progressing Problem: Discharge Planning Goal: Understanding discharge needs will improve Outcome: Progressing Problem: Fall Risk Goal: Ability to state ways to decrease the risk of falls will improve Outcome: Progressing Goal: Will remain free from falls Outcome: Progressing Goal: Will remain free from injury from falls Outcome: Progressing Goals: Clinical Goals for the Shift: VSS, free from falls/injuries, pain management, n/v management, heparin management, compliant with nursing cares Summary: Pt A&O x4 Pt remained free from falls VSS IV abx given per SEP orders No complains of pain aPTT therapeutic-heparin running at 15 units Compliant with nursing cares * Consults, Subsequent - Wali Hampton MD - 11/15/2024 12:03 PM CDT Infectious Disease Subsequent Consult Note Infectious Disease Team: General 4 Contact Information: Please see EPIC Treatment Team listing for up-to-date contact information. Subjective Chief complaint of bacteremia Interval History: Patient reports continued night sweats and one episode of vomiting this AM. Back pain stable. Objective Anti-infectives (From admission, onward) Start Dose/Rate Route Frequency Ordered Stop 11/14/242099 cefTRIAXone (ROCEPHIN) 2,000 mg/20 mL in sterile water (premix) 2,000 mg 2,000 mg 240 mL/hr over 5 Minutes intravenous Every 12 hours scheduled 11/14/24 1950 11/14/24 0915 ampicillin 2,000 mg/60 mL in sterile water IVPB (premix) 2,000 mg 2,000 mg 120 mL/hr over 30 Minutes intravenous Every 6 hours scheduled 11/14/24 0910 Vitals: 24hr Min/Max: Temp Min: 36.5 ??C (97.7 ??F) Max: 36.7 ??C (98.1 ??F) Pulse Min: 72 Max: 78 BP Min: 90/52 Max: 106/54 Resp Min: 16 Max: 18 SpO2 Min: 95 % Max: 96 % Most Recent : Vitals: 11/15/24 0726 BP: 106/54 Pulse: 78 Resp: 16 Temp: 36.7 ??C (98.1 ??F) SpO2: 96% I/O last 2 completed shifts: In: 20 [I.V.:20] Out: - Active LDAs: Peripheral IV 11/13/24 20 G Left;Posterior Hand (Active) Number of days: 2 Peripheral IV 11/14/24 22 G Anterior;Right Hand (Active) Number of days: 1 Physical Exam: Physical Exam Vitals reviewed. Constitutional: General: She is not in acute distress. HENT: Head: Normocephalic and atraumatic. Eyes: General: No scleral icterus. Right eye: No discharge. Left eye: No discharge. Conjunctiva/sclera: Conjunctivae normal. Cardiovascular: Rate and Rhythm: Normal rate and regular rhythm. Heart sounds: Murmur heard. No friction rub. No gallop. Pulmonary: Effort: Pulmonary effort is normal. No respiratory distress. Breath sounds: Normal breath sounds. No wheezing or rales. Abdominal: General: Bowel sounds are normal. There is no distension. Palpations: Abdomen is soft. Tenderness: There is no abdominal tenderness. There is no guarding. Musculoskeletal: General: No deformity. Skin: General: Skin is warm. Findings: No rash. Neurological: General: No focal deficit present. Mental Status: She is alert and oriented to person, place, and time. Psychiatric: Thought Content: Thought content normal. Lab/Radiology/Diagnostic Review: Lab Results Component Value Date MICROBIOLOGY Preliminary Report: Culture results pending. (.) 11/13/2024 MICROBIOLOGY Preliminary Report: Culture results pending. (.) 11/13/2024 MICROBIOLOGY (.) 08/21/2024 Final Report: Greater than or equal to 100,000 colonies/mL of Klebsiella pneumoniae MICROBIOLOGY Final Report: No growth of pathogens. 03/26/2023 MICROBIOLOGY Final Report: No growth 12/12/2021 Radiology results were reviewed. XR Chest PA Lateral 2 Views Result Date: 11/13/2024 Comparison 11/13/2023. Unchanged median sternotomy wires, mitral valve repair, aortic valve, and left pectoral pacemaker device with lead tips terminating over right atrium, coronary vein, and right ventricular apex. Right upper quadrant surgical clips and upper lumbar spine vertebral augmentation also noted. There is persistent moderate elevation of the left hemidiaphragm with associated subsegmental atelectasis. Infiltration of the right hemidiaphragm is also present. No pneumothorax, pleuraleffusion, or focal pneumonic consolidation. Cardiomediastinal contours are unchanged. Compression deformity of the lower thoracic spine is better evaluated on recent outside CT examination, but new fr om CT 10/17/2022. Electronically signed by: Gilmer Loyd M.D. Neuro CT Outside Consult Result Date: 11/13/2024 New osteolysis, cortical irregularities, subcortical sclerosis and distention of the intervertebraldisc at T10-T11 with mild prominent prevertebral soft tissues, concerning of discitis osteophyte complex. MRI evaluation is recommended as clinically indicated. The findings, conclusions and recommend ations within this report do not replace the initial findings, conclusions and recommendations madeat the facility where the study was performed based upon the imaging and clinical condition at thattime. Comparison with the prior report and clinical history is necessary. The provided images may or may not represent the [place] source data set and thus may contain changes that may lower the accuracy of this second-opinion interpretation. Electronically signed by: Valdemar Mcdowell MD Neuro CT Outside Reference Result Date: 11/13/2024 These images are for Reference purposes only and have not been reviewed by [facility]. There will be no report generated by a [facility] Radiologist. XR Chest PA Lateral 2 Views Result Date: 11/13/2024 Comparison 11/13/2023. Unchanged median sternotomy wires, mitral valve repair, aortic valve, and left pectoral pacemaker device with lead tips terminating over right atrium, coronary vein, and right ventricular apex. Right upper quadrant surgical clips and upper lumbar spine vertebral augmentation also noted. There is persistent moderate elevation of the left hemidiaphragm with associated subsegmental atelectasis. Infiltration of the right hemidiaphragm is also present. No pneumothorax, pleuraleffusion, or focal pneumonic consolidation. Cardiomediastinal contours are unchanged. Compression deformity of the lower thoracic spine is better evaluated on recent outside CT examination, but new fr om CT 10/17/2022. Electronically signed by: Gilmer Loyd M.D. Assessment/Plan Bacteremia due to Enterococcus Assessment & Plan The patient is a 69 y.o. female with PMH of CAD s/p CABG, AVR 2018, PPM 2015, HTN, Afib, mitral regurg, CHF, CKD, HLD, L1 compression fracture s/p kyphoplasty, who presented with concern for thoracicOM. Patient has chronic intermittent mid thoracic back pain that worsened in Aug 2024, associated with generalized weakness, night sweats, weight loss. No abdominal pain, GI or urinary symptoms. She was initially evaluated at OSH and PCP who suspected kidney stone. Ucx 08/21 grew Klebsiella pneumoniae and was treated for possible UTI with cipro for 7 days without improvement of pain. CT AP 08/22 was performed which was unremarkable. Given persistent and worsening pain she was then seen by NSGY on11/13 and review of OSH CT T/L spine wo contrast 11/10 showed new osteolysis, cortical irregularities,subcortical sclerosis and distension of the intervertebral disc at T10-11 with mild prominent prevertebral soft tissues, concerning for discitis osteophyte complex. She was recommended to present to the ED. In the ED she was afebrile and HDS. Labs without leukocytosis, ESR 82 and CRP 17. Bcx on 11/13 growing E faecalis. She was started on ampicillin and ceftriaxone. NSGY consulted and recommended MRIspine and IR biopsy. Pending MRI spine. TTE 11/13 showed MV repair with annuloplasty ring, mechanicalAV, wire noted in R heart. Patient with E faecalis BSI and concern for metastatic site of infection with possible thoracic spine OM. No evidence of intraabdominal infection due to lack of symptoms and prior negative imaging. Given AVR and PPM there is concern for associated endocarditis and PPM infection that would need to be further evaluated. Recommendations: - continue ampicillin 2g q6h and ceftriaxone 2g q12h - repeat daily blood cultures until negative for 48h --blood cultures not done on 11/14. Please make sure repeat sets are drawn 11/15 - will follow MRI spine and TTE results, will likely need NEVAEH to further evaluate PPM leads - ID to follow Today, I am treating the patient for bacteremia which can cause endocarditis and cardiac device infection in the short-term future in the absence of appropriate treatment, as described in the note., Discussed management of bacteremia with medicine ClearView™ Audio., Reviewed notes by Pinocular to determineappropriate plan of care as in the note., Estimated Creatinine Clearance: 27 mL/min (A) (by C-G 65 y r and older- minimum SCr 0.8 based on SCr of 1.6 mg/dL (H)). - reviewed; antibiotics recommended above are dosed accordingly., and The patient is being intensively monitored for antimicrobial toxicity from ampicillin and ceftriaxone with the following tests: cmp, cbc. * Assessment & Plan Note - Lia Hernandez MD - 11/15/2024 10:08 AM CDTAssociated Problem(s): Chronic midline thoracic back pain # C/f thoracic discitis / osteomyelitis Chronic back pain since 08/2024. Has had multiple CT scans for workup. Most recent CT thoracic spineshowed c/f discitis osteophyte complex at T10-11, saw NSGY as o/p, told to come to ED for further workup. Endorsing night sweats, 20 lb weight loss, intermittent BUE tingling. No incontinence. No IVDU. Hx of kyphoplasty few years ago to d/t L compression fracture. Hx of OM in foot / leg many years ago iso trauma. - NSGY following - ESR/CRPhigh - MRI spine, EP consulted on 11/14, pacemaker interrogation showed non dependence and MRI was contacted, waiting for MRI - [facility] IR c/s for c/o biopsy - HOLD warfarin x 5 day before procedure, possible procedure on Sunday - Hold warfarin (11/11-) -> heparin gtt - Repeated TTE to rule out valvular vegetation/ICD infection, ordered NEVAEH on 11/15 as TTE was unremarkable and patipaty has mechanical valve lpacemaker - Pain management with GLORY: tylenol 1g q6, robaxin 50mg q8; PRN: oxy 5mg q4 and dilaudid 0.2 IV q2 to breakthrough pain * Assessment & Plan Note - Lia Hernandez MD - 11/15/2024 10:08 AM CDTAssociated Problem(s): Bacteremia due to Enterococcus 1/2 BCx + Efaecalis (16.0hr) on 11/13. Unclear source. 20lb weight loss over the last few months. - Daily BCx - Start Amp (11/14-) and Ceftriaxone (11/14 -) - TTE on 11/14 lVEF 67% no thrombus, mechanical mitral valve w/o dysfunction - Waiting for NEVAEH - ID consult appreciate recs * Assessment & Plan Note - Lia Hernandez MD - 11/15/2024 10:08 AM CDTAssociated Problem(s): Pacemaker (Resolved 11/27/2024) #AVR (inspiris resilia, 2019) #pAF on Coumadin #LVEF 67% (11/14/24) Hx severe s/p AVR placement in and replacement of mechanical AV in 2021. Previously on ECMO reuqiring Mitral valve repair. - Warfarin -> hep gtt in preparation for IR bx on Sunday - GDMT: on hold coreg (hypotension) and spironolactone (worsening of kidney function and hypotension) * Medical Student - Annalise Rankin - 11/15/2024 8:56 AM CDT Medicine [employer] Daily Progress Subjective SUBJECTIVE Interval History: - 5/10 pain at baseline, 7/10 pain with movement. Requested oxycodone last at 1325 yesterday, no oxy or hydromorphone requested since. - Nausea and vomiting. Patient had one episode of watery, orange emesis this morning with a nosebleed. Objective OBJECTIVE Scheduled Medications: acetaminophen, 1,000 mg, oral, Q6H GLORY ampicillin, 2,000 mg, intravenous, Q6H GLORY [Held by Provider] carvediloL, 12.5 mg, oral, BID with meals (bkfst, dinner) cefTRIAXone, 2,000 mg, intravenous, Q12H GLORY famotidine, 40 mg, oral, Daily fluticasone propionate, 2 spray, each nostril, Daily harpswdagkx-zqinvogkm-srepqaas, 1 puff, inhalation, Daily methocarbamoL, 500 mg, oral, TID rosuvastatin, 40 mg, oral, Daily sertraline, 100 mg, oral, Daily sodium chloride 0.9%, 0.5-20 mL, intra-catheter, Q8H GLORY [Held by Provider] spironolactone, 25 mg, oral, Daily traZODone, 100 mg, oral, Nightly Continuous Medications: heparin, 0-33 Units/kg/hr, Last Rate: 15 Units/kg/hr (11/15/24 0032) PRN Medications: albuterol HFA sodium chloride 0.9% heparin OR heparin HYDROmorphone ondansetron ODT OR ondansetron oxyCODONE perflutren lipid (DEFINITY) 1.5 mL in sodium chloride 0.9% 10 mL syringe polyethylene glycol sodium chloride 0.9% Vitals: Most Recent : Vitals: 11/15/24 0726 BP: 106/54 Pulse: 78 Resp: 16 Temp: 36.7 ??C (98.1 ??F) SpO2: 96% 24hr Min/Max: Temp Min: 36.5 ??C (97.7 ??F) Max: 36.7 ??C (98.1 ??F) Pulse Min: 72 Max: 102 BP Min: 90/52 Max: 112/60 Resp Min: 16 Max: 18 SpO2 Min: 95 % Max: 97 % I/O: I/O last 2 completed shifts: In: 20 [I.V.:20] Out: - No intake/output data recorded. Physical Exam: General: Well-developed, well-nourished, appears stated age, NAD HENT: NCAT. Conjunctivae are normal. No scleral icterus. Cardiovascular: S2 systolic click best heard over R upper sternal border. No r/m/g. No peripheral edema Pulmonary/Chest: no respiratory distress. CTAB. No w/r/r Abdomen: soft, +BS. NTND. No rebound tenderness, no guarding Back: Tenderness along mid thoracic spinous processes; Skin: warm and dry, no observable rashes Extremities: 2+ radial, DP pulses Neuro: A&Ox4, no focal neurologic deficits, 5/5 strength in all extremities Psych: Normal mood and affect Lab/Radiology/Diagnostic Review: Recent Results (from the past 24 hours) aPTT Collection Time: 11/14/24 12:12 PM Result Value Ref Range aPTT 77 (H) 28 - 38 sec aPTT Collection Time: 11/14/24 6:53 PM Result Value Ref Range aPTT 98 (H) 28 - 38 sec Basic metabolic panel Collection Time: 11/14/24 10:03 PM Result Value Ref Range Sodium 141 135 - 145 mmol/L Potassium, pl 4.0 3.3 - 4.9 mmol/L Chloride 105 97 - 110 mmol/L CO2 26 22 - 32 mmol/L Anion gap 10 2 - 15 mmol/L BUN 18 6 - 25 mg/dL Creatinine 1.60 (H) 0.60 - 1.10 mg/dL Glucose 108 70 - 199 mg/dL Calcium 9.2 8.5 - 10.3 mg/dL CBC without differential Collection Time: 11/14/24 10:03 PM Result Value Ref Range WBC 4.52 3.80 - 9.90 K/cumm Hgb 7.9 (L) 11.9 - 15.5 g/dL Hct 24.8 (L) 35.6 - 45.5 % Plt 153 150 - 400 K/cumm MPV 11.7 9.1 - 12.3 fL RBC 2.88 (L) 3.90 - 5.20 M/cumm MCV 86.1 81.3 - 96.4 fL MCH 27.4 27.1 - 33.3 pg MCHC 31.9 (L) 32.3 - 35.7 g/dL RDW CV 14.6 11.1 - 14.9 % RDW SD 45.8 35.7 - 48.1 fL NRBC abs 0.00 0.00 - 0.01 K/cumm Magnesium Collection Time: 11/14/24 10:03 PM Result Value Ref Range Magnesium 2.3 1.4 - 2.5 mg/dL Phosphorus Collection Time: 11/14/24 10:03 PM Result Value Ref Range Phosphorus, pl 3.8 2.3 - 4.5 mg/dL eGFR Collection Time: 11/14/24 10:03 PM Result Value Ref Range eGFR 35 (L) >=60 mL/min/1.73 m2 Protime-INR Collection Time: 11/15/24 10:11 AM Result Value Ref Range PT 18.3 (H) 9.7 - 13.0 sec INR 1.68 (H) 0.90 - 1.20 I have reviewed the above laboratory results. Imaging Results: XR Chest PA Lateral 2 Views Result Date: 11/13/2024 Comparison 11/13/2023. Unchanged median sternotomy wires, mitral valve repair, aortic valve, and left pectoral pacemaker device with lead tips terminating over right atrium, coronary vein, and right ventricular apex. Right upper quadrant surgical clips and upper lumbar spine vertebral augmentation also noted. There is persistent moderate elevation of the left hemidiaphragm with associated subsegmental atelectasis. Infiltration of the right hemidiaphragm is also present. No pneumothorax, pleuraleffusion, or focal pneumonic consolidation. Cardiomediastinal contours are unchanged. Compression deformity of the lower thoracic spine is better evaluated on recent outside CT examination, but new fr om CT 10/17/2022. Electronically signed by: Gilmer Loyd M.D. Neuro CT Outside Consult Result Date: 11/13/2024 New osteolysis, cortical irregularities, subcortical sclerosis and distention of the intervertebraldisc at T10-T11 with mild prominent prevertebral soft tissues, concerning of discitis osteophyte complex. MRI evaluation is recommended as clinically indicated. The findings, conclusions and recommend ations within this report do not replace the initial findings, conclusions and recommendations madeat the facility where the study was performed based upon the imaging and clinical condition at thattime. Comparison with the prior report and clinical history is necessary. The provided images may or may not represent the [place] source data set and thus may contain changes that may lower the accuracy of this second-opinion interpretation. Electronically signed by: Valdemar Mcdowell MD Neuro CT Outside Reference Result Date: 11/13/2024 These images are for Reference purposes only and have not been reviewed by [facility]. There will be no report generated by a [facility]iologist. Assessment/Plan ASSESSMENT & PLAN Kendal Cisneros is a 69 y.o. female with a history of CAD s/p 1V CABG (SVG to RCA 2021), AVR (inspiris resilia placed 2018, mechanical valve placed 2021), pacemaker ([employer] BiV, 2015, replaced 2020 with MRI compatible), MR (s/p repair 03/03/22), LBBB, pHTN, pAF on warfarin (goal 2-3), HFpEF (EF 65-70% 2023), CKD3, HLD, and TUD who presented to ED per request of neurosurgery w/ c/f thoracic diskitis/osteomyelitis. #Enterococci Bacteremia 07/10 BCx returned positive for Enterococci fecaelis within 16 hrs. Pt has not had any fevers but haspossible osteomyelitis, pending MRI spine. Unknown source, 11/13 showed MV repair with annuloplasty ring, mechanical AV, wire noted in R heart. -Cont Ampicillin 2g Q6 and ceftriaxone 2g Q12 (11/14-) -ID consulted, requested NEVAEH for further evaluation of PPM leads and MVR/AVR. Cards subsequently consulted. -Will continue to follow cultures. -Daily blood cultures until two subsequent negative cultures. #Thoracic back pain c/f osteomyelitis Pt has had worsening thoracic back pain since Aug 2024, worsening with movement. Most recent CT thoracic spine showed new osteolysis, cortical irregularities, subcortical sclerosis and distention ofthe intervertebral disc at T10-T11, concerning for diskitis of the osteophyte complex. BUE tingling, but no incontinence, numbness, or lower extremity paresthesia. History notable for kyphoplasty [id number] secondary to L compression fracture and osteomyelitis in foot. -Neurosurgery following -Total spine MRI if pacemaker compatible. EP consulted and notes this pacemaker is compatible with MRI. Patient is severely claustrophobic and will be given meds for anxiety before MRI. -[facility] IR consulted for biopsy, planned for 11/17. Holding warfarin for 5 days (11/11-) before procedure. Heparin ggt started, therapeutic PTT. -CRP and ESR elevated to 17 and 82 respectively -ID following, following repeat blood cultures and NEVAEH for source evaluation and infection control as described above -Pain management regiment: Tylenol 1000 mg Q6 and Robaxin 500 mg TID scheduled; Dilaudid 0.2 g IV Q2 and oxycodone 5 mg oral Q4 PRN for breakthrough pain. #AVR, MR #pAF on Warfarin at home #HFpEF -Pt switched to heparin ggt from Warfarin for upcoming biopsy, PTT therapeutic at 77 and 98 on 11/15/23 -Holding home coreg and lyle as patient's blood pressures have been low in admission (102/46 lowest) #CAD s/p RCA CABG #HLD - Home crestor 40 daily #Mood disorder - Home sertraline 100 daily, trazodone 50 nightly #GERD - Home famotidine #COPD Home regimen: albuterol, breztri, flonase - Flonase, trelegy ellipta - PRN albuterol Code Status: Full Code Diet: Adult Diet Regular DVT Prophylaxis: Heparin Annalise Rankin, medical student Cosigned by Kandis Spencer MD at 11/25/2024 10:59 AM CDT * Plan of Care - Cleo Parada RN - 11/15/2024 3:14 AM CDT Problem: Lack of Knowledge Goal: Ability to develop a pain control plan will improve Outcome: Progressing Problem: Medication Goal: Satisfaction with pain management medication regimen will improve Outcome: Progressing Problem: Sensory Goal: Ability to identify factors that increase pain levels will improve while working to decrease the patient's pain levels Outcome: Progressing Problem: Coping Goal: Ability to cope will improve Outcome: Progressing Problem: Health Behavior Goal: Identification of resources available to assist in meeting health care needs will improve Outcome: Progressing Problem: Discharge Planning Goal: Understanding discharge needs will improve Outcome: Progressing Problem: Fall Risk Goal: Ability to state ways to decrease the risk of falls will improve Outcome: Progressing Goal: Will remain free from falls Outcome: Progressing Goal: Will remain free from injury from falls Outcome: Progressing Goals: Clinical Goals for the Shift: Free from falls;VSS;Pain control; Theraputic aPTT;Restful night Summary: Pt remained free from falls VSS IV abx given per MAR orders No complains of pain aPTT therapeutic-heparin running at 15 units No BM/Good urine output Pt had restful night * Plan of Care - Anita Elise RN - 11/14/2024 6:07 PM CDT Problem: Lack of Knowledge Goal: Ability to develop a pain control plan will improve Outcome: Progressing Problem: Medication Goal: Satisfaction with pain management medication regimen will improve Outcome: Progressing Problem: Sensory Goal: Ability to identify factors that increase pain levels will improve while working to decrease the patient's pain levels Outcome: Progressing Problem: Coping Goal: Ability to cope will improve Outcome: Progressing Problem: Health Behavior Goal: Identification of resources available to assist in meeting health care needs will improve Outcome: Progressing Problem: Discharge Planning Goal: Understanding discharge needs will improve Outcome: Progressing Problem: Fall Risk Goal: Ability to state ways to decrease the risk of falls will improve Outcome: Progressing Goal: Will remain free from falls Outcome: Progressing Goal: Will remain free from injury from falls Outcome: Progressing Goals: Clinical Goals for the Shift: VSS, pain control, free from injuries/falls Assumed care of pt around 1530 * Plan of Care - Estela Castillo RN - 11/14/2024 3:32 PM CDT Case management following for discharge planning. CM sent early referral to [facility] for likely iv abx. HARISH has notified [facility] coordinatorNova of referral. * Initial Assessments - Lsia Chavez RN - 11/14/2024 3:25 PM CDT CM Initial Assessment Interview Note Information Obtained From: Patient (at bedside) (11/14/24 1266) Admission Source: neurosurgery clinic/ED Impression: 69 year old female patient who presents w/ c/f thoracic diskitis/osteomyelitis. Pt lives with son and dtr-in-law. Prior to hospitalization pt was mostly independent with activities of daily living and care, requiring a cane when ambulating up and down stairs. Patient has adequate support which includes son and dtr-in-law. Pt does not have home health or other sales support worker services. Pt has DME as listed below. Pt manages her own meds. Plan Includes: CM anticipates that patient will discharge to home vs rehab when medically stable. Campus Receptionist to continue collaboration with patient/family and clinical team to identify discharge needs to assure interventions completed for safe discharge. CM to follow for further discharge planning. Additional Information: Address, phone number, pharmacy, emergency contacts, and insurance verifiedwith patient. Pt's son to provide transportation at discharge. Role of CM explained. No further needs at this time. Primary Source of Transportation: Does the patient need discharge transport arranged?: No (11/14/24 6108) Health Insurance Coverage: Medicare and [facility] Prescription Coverage: yes Pharmacy: [facility]/pharmacy [address] [place] [id number] Primary Care Provider: Quirino Berger MD Prior to Admission: Functional Status: Independent with ADLs Primary Caregiver: Self Support System: Children When was the last time you have seen your PCP?: Within last 6 months Home Care Services: No Outpatient Services: No Durable Medical Equipment: Walker (wheeled), Bedside commode, Toilet riser, Cane (single prong), Home Modification Assessment (railes in bathroom), Oxygen Oxygen Detail: 2 L at night DME Name and Contact Number: Valerie Living Arrangements: Family members Type of Residence: Private residence Does patient wish to return to care facility?: Yes, wishes to return Will the care facility allow the patient to return?: Yes, patient can return Facility contact name and number:: Na Steps in home?: Yes, Outside of home, Yes, Inside home Number of steps inside: 24 steps Number of steps outside: 8 steps Medication management: Independent (11/14/24 0500) Potential discharge needs include: Home Health: Physical therapy, Occupational therapy (11/14/24 1508) OP Services: n/a Behavioral Health Services: Behavioral Health Services: No (11/14/24 1508) Anticipated Level of Care: Anticipated discharge level of care: Private residence Pt/Family agrees with Anticipated Level of Care: Yes (11/14/24 1508) Patient expects to be Discharged to: Private residence, (11/14/24 1508) Patient's Identified Problem/Goal Problem: Ensure acute medical needs are met and that patient has a safe discharge plan. Goal: Secure a discharge plan that patient/family are agreeable with and ensure patient has continuum of care. Case management will follow for discharge planning and send referrals as needed. Lisa Chavez RN * Plan of Care - Renita Back RN - 11/14/2024 3:17 PM CDT Infusion referral received. Will need to assess patient and/or family for home infusion appropriateness, verify benefits for home infusion, and educate patient/family on home infusion process. Referrals are processed between 8am - 4:30pm Sunday - Sunday. For after hour emergencies please call [phone]. Any referrals received after 4pm will be processed the next day. For discharge planning purposes please keep in mind that referrals can take 24 or more hours to process. Thank You Renita/Nova Back RN [employer], [facility] home care [phone] * Hospital Course - Lia Hernandez MD - 11/14/2024 2:02 PM CDT #Enterococci Bacteremia 1/2 BCx returned positive for Enterococci fecaelis within 16 hrs on 11/13/24. Pt did not had any fevers but c/f possible osteomyelitis as described below. ID was consulted, and began Ampicillin and ceftriaxone (11/14-). Patient had x2 negative blood cultures on 11/15 and 11/16, after which daily blood cultures were stopped. - 11/13 TTE for source evaluation was unremarkable, 11/19 NEVAEH notable for tiny mobile linear echodensity on device lead in the right atrium c/f lead-related infective endocarditis. - CT surgery removed pacemaker on 11/25 with no complications, replacement pacemaker not needed per IP. - Patient will continue with IV antibiotics at SNF for 6 weeks (starting day to be counted from theday of pacemaker removal - 11/25 until 01/06). ESR and CRP should be measured 3 and 6 weeks into treatment outpatient, or 12/05 and 12/26. - Antibiotic regimen: Ceftriaxone 2g q 12 for 6 weeks (until 12/26) and Ampicillin 8g/24h (until 12/26) - patient has PICC line on right arm #Thoracic back pain c/f osteomyelitis Pt has had worsening thoracic back pain since Aug 2024, worsening with movement. Most recent CT thoracic spine showed new osteolysis, cortical irregularities, subcortical sclerosis and distention ofthe intervertebral disc at T10-T11, concerning for diskitis of the osteophyte complex. Total spineMRI on 11/17 was compatible with pacemaker, and showed cortical erosion and paraspinal soft tissue edema c/w osteomyelitis. - Biopsy results showed no growth, path report with osteomyelitis and possible degenerative lesions. 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 - ID continued to follow the patient throughout their course, neurosurgery consulted and recommended nonsurgical treatment. - Pain managed with Tylenol and Robaxin scheduled, oxycodone 7.5 mg oral Q4 PRN for breakthrough pain. Lidocaine patch added 11/20 for mild L sided [facility] back pain. Gabapentin was added 11/22 and oxy wasupped from 5 to 7.5 as patient's pain worsened, pain was better managed on new regiment. #AVR, MR #pAF on Warfarin at home - Pt switched to heparin ggt from Warfarin for biopsy and pacemaker removal from 11/11 to 11/25. 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 F/u serotonin assay negative - Transitioned to warfarin on 11/26 with INR on discharge 2.09 (coumadin dose 4mg/day, lovenox discontinued on 12/02) - Patient warfarin home dose before admission: 3mg 4 times a week and 1.5 mg three times a week. Required higher dose during this admission due to interaction between warfarin and Ceftriaxone, followed by pharmacy that oriented progressive increase on coumadin dose up to 4mg d/ay (dose she is receiving today) - Recommended INR at arrival and repeat every 3 days due to recent increase in warfarin dose. #HFpEF - Home use of coreg 12.5 BID and spironolactone 25mg/day - At admission due to infection home coreg and lyle were held as patient's blood pressures were low to 90s, and she presented worsening of renal function - On 12/01 coreg was resumed as she presented higher levels of BP - To date spironolactone is on hold due to her creat increase (Baseline around 1.2 to 1.4, 11/21: 1.70) This medicaiton will need to resumed as soon as kidney function improves. #CAD s/p RCA CABG #HLD - Home crestor 40 daily, continue #Mood disorder - Home sertraline 100 daily, trazodone 50 nightly, continue #GERD - Home famotidine, continue #COPD Home regimen: albuterol, breztri, flonase - Flonase, trelegy ellipta - PRN albuterol #Fall on 12/01 Patient had a fall on 12/01 while taking a shower at 9:20. On coumadin 4mg/daily and full dose of lovenox. Presence of hematoma em right forehead.No loss of consciousness, nausea or vomit after event. Patient reports she lost her balance - STAT CT head and total spine - without any acute intracranial findings of changes in her spine - Neurocheck q6 for 24h, patient stable - Repeated CT on 12/01 at 19:33 due to nausea and vomit, with no acute intracranial hemorrhage, large territory infarct, or midline shift. - To note: patient has history of prior episodes of vomit before the fall requiring zofran. - On 12/02: new episode of nausea and vomit, repeated EKG (no changes when compared to baseline after pacemaker removal), patient stable after emesis episode - Discussed with team and patient can be discharged to complete therapy at SNF. * Assessment & Plan Note - Lia Hernandez MD - 11/14/2024 1:24 PM CDTAssociated Problem(s): Chronic midline thoracic back pain # C/f thoracic discitis / osteomyelitis Chronic back pain since 08/2024. Has had multiple CT scans for workup. Most recent CT thoracic spineshowed c/f discitis osteophyte complex at T10-11, saw NSGY as o/p, told to come to ED for further workup. Endorsing night sweats, 20 lb weight loss, intermittent BUE tingling. No incontinence. No IVDU. Hx of kyphoplasty few years ago to d/t L compression fracture. Hx of OM in foot / leg many years ago iso trauma. - NSGY following - ESR/CRPhigh - MRI spine, however cardiac device is not compatible. EP consult. For pacemaker interrogation - [facility] IR c/s for c/o biopsy - HOLD warfarin x 5 day before procedure - Hold warfarin (11/11-) -> heparin gtt - Repeat TTE to rule out valvular vegetation/ICD infection - Pain management with GLORY: tylenol 1g q6, robaxin 50mg q8; PRN: oxy 5mg q4 and dilaudid 0.2 IV q2 to breakthrough pain * Assessment & Plan Note - Lia Hernandez MD - 11/14/2024 1:24 PM CDTAssociated Problem(s): Bacteremia due to Enterococcus 1/2 BCx + Efaecalis (16.0hr) on 11/13. Unclear source. 20lb weight loss over the last few months. - Daily BCx - Start Amp (11/14-) and Ceftriaxone (11/14 -) - TTE on 11/14 lVEF 67% no thrombus, mechanical mitral valve w/o dysfuction - ID consult * Assessment & Plan Note - Lia Hernandez MD - 11/14/2024 1:24 PM CDTAssociated Problem(s): Pacemaker (Resolved 11/27/2024) #AVR (inspiris resilia, 2019) #pAF on Coumadin #LVEF 67% (11/14/24) Hx severe s/p AVR placement in and replacement of mechanical AV in 2021. Previously on ECMO reuqiring Mitral valve repair. - Warfarin -> hep gtt in preparation for IR bx - GDMT: on hold coreg (hypotension) and spironolactone (worsening of kidney function and hypotension) * Medical Student - Annalise Rankin - 11/14/2024 11:53 AM CDT Medicine Firm Daily Progress Subjective SUBJECTIVE Interval History: -Pain only occurs if she moves, currently feeling no pain in bed -Patient has some BUE tingling that comes and goes -Endorses baseline dyspnea on exertion -Denies fever, chills, chest pain, dysuria, urinary frequency, urinary/bowel incontinence, limb paresthesias, or weakness. -TTE conducted this morning Objective OBJECTIVE Scheduled Medications: acetaminophen, 1,000 mg, oral, Q6H GLORY ampicillin, 2,000 mg, intravenous, Q6H GLORY [Held by Provider] carvediloL, 12.5 mg, oral, BID with meals (bkfst, dinner) cefTRIAXone, 2,000 mg, intravenous, Q24H GLORY famotidine, 40 mg, oral, Daily fluticasone propionate, 2 spray, each nostril, Daily mmmwiygrjfy-pwcjsbirg-ufwdzuzp, 1 puff, inhalation, Daily methocarbamoL, 500 mg, oral, TID rosuvastatin, 40 mg, oral, Daily sertraline, 100 mg, oral, Daily sodium chloride 0.9%, 0.5-20 mL, intra-catheter, Q8H GLORY [Held by Provider] spironolactone, 25 mg, oral, Daily traZODone, 100 mg, oral, Nightly Continuous Medications: heparin, 0-33 Units/kg/hr, Last Rate: 15 Units/kg/hr (11/14/24 0538) PRN Medications: albuterol HFA sodium chloride 0.9% heparin OR heparin HYDROmorphone ondansetron ODT OR ondansetron oxyCODONE perflutren lipid (DEFINITY) 1.5 mL in sodium chloride 0.9% 10 mL syringe polyethylene glycol sodium chloride 0.9% Vitals: Most Recent : Vitals: 11/14/24 0900 BP: 112/60 Pulse: 102 Resp: 16 Temp: 36.5 ??C (97.7 ??F) SpO2: 97% 24hr Min/Max: Temp Min: 36.5 ??C (97.7 ??F) Max: 37.3 ??C (99.2 ??F) Pulse Min: 73 Max: 102 BP Min: 102/62 Max: 117/69 Resp Min: 16 Max: 18 SpO2 Min: 94 % Max: 97 % I/O: No intake/output data recorded. No intake/output data recorded. Physical Exam: General: Well-developed, well-nourished, appears stated age, NAD HENT: NCAT. Conjunctivae are normal. No scleral icterus. Cardiovascular: RRR. S2 click heard best over R upper sternal border. No peripheral edema Pulmonary/Chest: no respiratory distress. CTAB. No w/r/r Abdomen: soft, +BS. NTND. No rebound tenderness, no guarding Skin: warm and dry, no observable rashes Extremities: 2+ radial, DP pulses Neuro: A&Ox4, no focal neurologic deficits, 5/5 strength in all extremities Psych: Normal mood and affect Lab/Radiology/Diagnostic Review: Recent Results (from the past 24 hours) CBC with auto differential Collection Time: 11/13/24 2:19 PM Result Value Ref Range WBC 6.88 3.80 - 9.90 K/cumm Hgb 8.8 (L) 11.9 - 15.5 g/dL Hct 27.9 (L) 35.6 - 45.5 % Plt 204 150 - 400 K/cumm MPV 11.0 9.1 - 12.3 fL RBC 3.28 (L) 3.90 - 5.20 M/cumm MCV 85.1 81.3 - 96.4 fL MCH 26.8 (L) 27.1 - 33.3 pg MCHC 31.5 (L) 32.3 - 35.7 g/dL RDW CV 14.5 11.1 - 14.9 % RDW SD 44.4 35.7 - 48.1 fL NRBC abs 0.00 0.00 - 0.01 K/cumm Comprehensive metabolic panel Collection Time: 11/13/24 2:19 PM Result Value Ref Range Sodium 139 135 - 145 mmol/L Potassium, pl 3.9 3.3 - 4.9 mmol/L Chloride 102 97 - 110 mmol/L CO2 27 22 - 32 mmol/L Anion gap 10 2 - 15 mmol/L BUN 13 6 - 25 mg/dL Creatinine 1.42 (H) 0.60 - 1.10 mg/dL Glucose 93 70 - 199 mg/dL Calcium 9.5 8.5 - 10.3 mg/dL Bilirubin, total 0.2 0.1 - 1.2 mg/dL Protein, pl 8.3 6.5 - 8.5 g/dL Albumin 4.0 3.5 - 5.0 g/dL Alk phos 104 40 - 130 Units/L ALT 10 7 - 45 Units/L AST 18 10 - 45 Units/L Blood culture Blood Peripheral Collection Time: 11/13/24 2:19 PM Specimen: Peripheral; Blood Result Value Ref Range Direct Specimen Exam Stain: Gram Positive Cocci in pairs and chains Time to culture positivity (aerobic media): 18.2 hours Time to culture positivity (anaerobic media): 18.2 hours Report Preliminary Report: Culture results pending. (.) Blood culture Blood Peripheral Collection Time: 11/13/24 2:19 PM Specimen: Peripheral; Blood Result Value Ref Range Direct Specimen Exam Molecular Analysis: Enterococcus faecalis detected by j[facility] BCID-G panel. Enterococcus faecalis is routinely susceptible to ampicillin. Genes conferring Vancomycin resistance were not detected. This test does not exclude the possibility of a mixed bacterial infection. Notification of: Enterococcus faicalis called to and read back by: Colin Blair MD [phone] on 11/14/2024 08:50:27 by: Blake Garcia MLT Direct Specimen Exam Stain: Gram Positive Cocci in pairs and chains Time to culture positivity (aerobic media): 16.0 hours Time to culture positivity (anaerobic media): 16.0 hours Notification of: Gram Positive Cocci in pairs and chains called to and read back by: Colin Blair MD [phone] on 11/14/2024 06:51:41 by: Olesya Barrera MT Report Preliminary Report: Culture results pending. (.) Differential, auto Collection Time: 11/13/24 2:19 PM Result Value Ref Range Neutrophil abs 5.24 1.50 - 6.50 K/cumm Imm gran abs 0.03 0.00 - 0.10 K/cumm Lymphocyte abs 0.98 0.80 - 3.30 K/cumm Monocyte abs 0.49 0.20 - 0.80 K/cumm Eosinophil abs 0.10 0.00 - 0.50 K/cumm Basophil abs 0.04 0.00 - 0.10 K/cumm Neutrophil pct 76.2 % Imm gran pct 0.4 % Lymphocyte pct 14.2 % Monocyte pct 7.1 % Eosinophil pct 1.5 % Basophil pct 0.6 % eGFR Collection Time: 11/13/24 2:19 PM Result Value Ref Range eGFR 41 (L) >=60 mL/min/1.73 m2 Protime-INR Collection Time: 11/13/24 5:26 PM Result Value Ref Range PT 25.3 (H) 9.7 - 13.0 sec INR 2.30 (H) 0.90 - 1.20 CBC without differential Collection Time: 11/13/24 5:26 PM Result Value Ref Range WBC 6.04 3.80 - 9.90 K/cumm Hgb 8.5 (L) 11.9 - 15.5 g/dL Hct 26.6 (L) 35.6 - 45.5 % Plt 184 150 - 400 K/cumm MPV 11.3 9.1 - 12.3 fL RBC 3.16 (L) 3.90 - 5.20 M/cumm MCV 84.2 81.3 - 96.4 fL MCH 26.9 (L) 27.1 - 33.3 pg MCHC 32.0 (L) 32.3 - 35.7 g/dL RDW CV 14.4 11.1 - 14.9 % RDW SD 44.5 35.7 - 48.1 fL NRBC abs 0.00 0.00 - 0.01 K/cumm aPTT Collection Time: 11/13/24 5:26 PM Result Value Ref Range aPTT 31 28 - 38 sec Basic metabolic panel Collection Time: 11/13/24 10:35 PM Result Value Ref Range Sodium 139 135 - 145 mmol/L Potassium, pl 3.9 3.3 - 4.9 mmol/L Chloride 105 97 - 110 mmol/L CO2 29 22 - 32 mmol/L Anion gap 5 2 - 15 mmol/L BUN 14 6 - 25 mg/dL Creatinine 1.40 (H) 0.60 - 1.10 mg/dL Glucose 98 70 - 199 mg/dL Calcium 9.6 8.5 - 10.3 mg/dL CBC without differential Collection Time: 11/13/24 10:35 PM Result Value Ref Range WBC 5.87 3.80 - 9.90 K/cumm Hgb 8.1 (L) 11.9 - 15.5 g/dL Hct 26.3 (L) 35.6 - 45.5 % Plt 192 150 - 400 K/cumm MPV 11.1 9.1 - 12.3 fL RBC 3.07 (L) 3.90 - 5.20 M/cumm MCV 85.7 81.3 - 96.4 fL MCH 26.4 (L) 27.1 - 33.3 pg MCHC 30.8 (L) 32.3 - 35.7 g/dL RDW CV 14.4 11.1 - 14.9 % RDW SD 45.2 35.7 - 48.1 fL NRBC abs 0.00 0.00 - 0.01 K/cumm Magnesium Collection Time: 11/13/24 10:35 PM Result Value Ref Range Magnesium 2.3 1.4 - 2.5 mg/dL eGFR Collection Time: 11/13/24 10:35 PM Result Value Ref Range eGFR 41 (L) >=60 mL/min/1.73 m2 CRP (acute phase) Collection Time: 11/13/24 10:35 PM Result Value Ref Range CRP 17.0 (H) <=10.0 mg/L Erythrocyte sedimentation rate Collection Time: 11/13/24 10:35 PM Result Value Ref Range Erythrocyte sedimentation rate 82 (H) 1 - 30 mm/hr aPTT Collection Time: 11/14/24 4:31 AM Result Value Ref Range aPTT 58 (H) 28 - 38 sec I have reviewed the above laboratory results. Imaging Results: XR Chest PA Lateral 2 Views Result Date: 11/13/2024 Comparison 11/13/2023. Unchanged median sternotomy wires, mitral valve repair, aortic valve, and left pectoral pacemaker device with lead tips terminating over right atrium, coronary vein, and right ventricular apex. Right upper quadrant surgical clips and upper lumbar spine vertebral augmentation also noted. There is persistent moderate elevation of the left hemidiaphragm with associated subsegmental atelectasis. Infiltration of the right hemidiaphragm is also present. No pneumothorax, pleuraleffusion, or focal pneumonic consolidation. Cardiomediastinal contours are unchanged. Compression deformity of the lower thoracic spine is better evaluated on recent outside CT examination, but new fr om CT 10/17/2022. Electronically signed by: Gilmer Loyd M.D. Neuro CT Outside Consult Result Date: 11/13/2024 New osteolysis, cortical irregularities, subcortical sclerosis and distention of the intervertebraldisc at T10-T11 with mild prominent prevertebral soft tissues, concerning of discitis osteophyte complex. MRI evaluation is recommended as clinically indicated. The findings, conclusions and recommendations within this report do not replace the initial findings, conclusions and recommendations made at the facility where the study was performed based upon the imaging and clinical condition at thattime. Comparison with the prior report and clinical history is necessary. The provided images may or may not represent the [place] source data set and thus may contain changes that may lower the accuracy of this second-opinion interpretation. Electronically signed by: Valdemar Mcdowell MD Neuro CT Outside Reference Result Date: 11/13/2024 These images are for Reference purposes only and have not been reviewed by [facility]. There will be no report generated by a [facility]iologist. Assessment/Plan ASSESSMENT & PLAN Kendal Cisneros is a 69 y.o. female with history of CAD s/p 1V CABG (SVG to RCA 2021), AVR (inspiris resilia placed 2018, mechanical valve placed 2021), pacemaker ([employer] BiV, 2015, replaced 2020 with MRI compatible), MR (s/p repair 03/03/22), LBBB, pHTN, pAF on warfarin (goal 2-3), HFpEF (EF 65-70%2023), CKD3, HLD, and TUD who presented to ED per request of neurosurgery w/ c/f thoracic diskitis/osteomyelitis. #Enterococci Bacteremia 1/2 BCx returned positive for Enterococci fecaelis within 16 hrs. Pt has not had any fevers but haspossible osteomyelitis. Unknown source. -Began Ampicillin and ceftriaxone (11/14-) -TTE for source evaluation -ID consulted -Will continue to follow cultures #Thoracic back pain c/f osteomyelitis Pt has had worsening thoracic back pain since Aug 2024, worsening with movement. Most recent CT thoracic spine showed new osteolysis, cortical irregularities, subcortical sclerosis and distention ofthe intervertebral disc at T10-T11, concerning for diskitis of the osteophyte complex. BUE tingling, but no incontinence, numbness, or lower extremity paresthesia. History notable for kyphoplasty [id number] secondary to L compression fracture and osteomyelitis in foot. -Neurosurgery following -Total spine MRI if pacemaker compatible. EP consulted and notes this pacemaker is compatible with MRI -[facility] IR consulted for biopsy. Holding warfarin for 5 days (5/-) before procedure. Heparin ggt started, will continue serial PTT. -CRP and ESR elevated to 17 and 82 respectively -ID following, TTE, and Bcx for source and bacterial identification as described above -Pain management regiment: Tylenol 1000 mg Q6 and Robaxin 500 mg TID scheduled; Dilaudid 0.2 g IV Q2 and oxycodone 5 mg oral Q4 PRN for breakthrough pain. #AVR, MR #pAF on Warfarin at home #HFpEF -Pt switched to heparin ggt from Warfarin for upcoming biopsy -TTE -Holding home coreg and lyle as patient's blood pressures have been low in admission (102/46 lowest) #CAD s/p RCA CABG #HLD - Home crestor 40 daily #Mood disorder - Home sertraline 100 daily, trazodone 50 nightly #GERD - Home famotidine #COPD Home regimen: albuterol, breztri, flonase - Flonase, trelegy ellipta - PRN albuterol Code Status: Full Code Diet: Adult Diet Regular DVT Prophylaxis: Heparin Annalise Rankin, medical student Cosigned by Kandis Spencer MD at 11/25/2024 10:58 AM CDT * Plan of Care - Joel Howard - 11/14/2024 5:13 AM CDT Problem: Lack of Knowledge Goal: Ability to develop a pain control plan will improve Outcome: Progressing Problem: Medication Goal: Satisfaction with pain management medication regimen will improve Outcome: Progressing Flowsheets (Taken 11/14/2024511) Satisfaction with pain management medication regimen will improve: Assess satisfaction with pain management regimen Problem: Sensory Goal: Ability to identify factors that increase pain levels will improve while working to decrease the patient's pain levels Outcome: Progressing Flowsheets (Taken 11/14/2024511) Ability to identify factors that increase pain levels will improve while working to decrease patients pain levels: Assess pain status Problem: Coping Goal: Ability to cope will improve Outcome: Progressing Flowsheets (Taken 11/14/2024511) Ability to cope will Improve: Encourage vebalization of feelings surrounding pain Problem: Health Behavior Goal: Identification of resources available to assist in meeting health care needs will improve Outcome: Progressing Flowsheets (Taken 11/14/2024511) Identification of resources available to assist in meeting health care needs will improve: Collaborate with pain management Problem: Discharge Planning Goal: Understanding discharge needs will improve Outcome: Progressing Flowsheets (Taken 11/14/2024511) Understanding of discharge needs will improve: Discuss information regarding discharge instructions Goals: Summary: VSS, no falls or injuries. Pain medication given once at the beginning of shift. Heparin drip at 14 units/kg/hr. * Significant Event - Eliane Feng NP - 11/13/2024 2:13 PM CDT ED Hospitalist Event Note In my role as the ED hospitalist, I have seen and examined this patient and reviewed the chart. I have discussed with the ED team and will assume care of this patient until an inpatient bed and team is assigned. Kendal Cisneros is a 69 y.o. patient with a PMHx of [employer] BiV Pacemaker placed 2015 (not MRI compatible), Inspiris Resilia AVR #21 implanted 12/31/18, h/o LBBB, PHTN, pAF on warfarin (goal 2-3), mitral regurgitation, CHF, 1V CABG SVG to RCA (11/2021) tobacco abuse, CKDIII, hyperlipidemia. Patient reports chronic back pain beginning in 08/2023. She reports that she initially diagnosed with a urinary tract infection in early August and was treated empirically with oral antibiotics withno improvement in symptoms. CT AP was obtained for evaluation of kidney infection or kidney stone and was negative for both. Patient then presented to [place] and a repeat CT was obtained and UA,which were both negative for acute process. She was prescribed oxycodone and flexeril for pain management. Patient reports pain was persistent and an additional CT was ordered of the thoracic spine which showed concern for new osteolysis, cortical irregularities, subcortical sclerosis and distension of the intervertebral disc at T10-T11 with mild prominent prevertebral soft tissues, concerning for discitis osteophyte complex, MRI recommended for further evaluation. Patient denies chest pain, abdominal pain, nausea, vomiting, fever, or chills. She endorses night sweats and intermittent bilateral upper extremity numbness and tingling. She denies incontinence of urine or stool, reports some issues with constipation. She also endorses issues with balance, but family report this is not new. Patient was seen by NSGY, Dr Flower, for further evaluation and advised to present to the emergency department for further evaluation with MRI for possible OM. Of note, patient reports history of OM in left foot and history of kyphoplasty 2/2 L1 compression fracture. In ED, patient afebrile, VSS on RA. Work up significant for Cr 1.42 (at baseline), otherwise unremarkable CMP, hgb 8.8 ( baseline ranging from ~9-10), blood cultures in process. Exam: No alarming neurological deficits, strength intact bilateral upper and lower extremities, no decreased sensation bilaterally, point tenderness over thoracic spine. Exam otherwise benign #Thoracic back pain, chronic #Thoracic discitis/osteomyelitis Patient presenting with acute, worsening back pain with image findings concerning for discitis/OM of thoracic spine. - NSGY consulted and recommending total spine MRI. - PPM not MRI compatible per OP paper twister tender. - 2v CXR obtained - Radiology recommending EP consult - MRI safety team to discuss - hold abx given clinic stability - [facility] IR consulted for consideration of biopsy, however patient will need to hold warfarin 5 days (last day taking was 11/11). Will need to discuss further with radiology - Pain management with prn tylenol at this time, can titrate as needed #History of TAVR Patient currently on warfarin s/p TAVR, last dose 11/11. Continue to hold - heparin gtt ordered Eliane Feng NP * ED Pre-Arrival Note - Fatmata Fry RN - 11/13/2024 11:09 AM CDT Pre-Arrival Note Called in by MD Flower with neurosurgery. Pt with back pain, c/f osteo. Pt being sent to ED for further eval and admission. Neurosurgery requesting MRI of C and T spine w/wo contrast. Fatmata Fry RN documented in this encounter Plan of Treatment Pending Results Name Type Priority Associated Diagnoses Date/Time Erythrocyte sedimentation rate Lab Routine 11/13/2024 10:35 PM CDT CRP (acute phase) Lab Routine 025 10:35 PM CDT Protime-INR Lab STAT 11/15/2024 11 :46 PM CDT Protime-INR Lab STAT 11/17/2024 5: 40 AM CDT aPTT Lab Timed 11/17/2024 2:0 5 PM CDT Mycobacteriology (AFB) culture Bone Thoracic spine Microbiology Routine 11/17/2024 5:15 PM CDT Mycobacteriology (AFB) culture Aspirate Thoracic spine Microbiology Routine 11/17/2024 5:15 PM CDT Mycology (fungal) culture and stain Aspirate Thoracic spine Microbiology Routine 11/17/2024 5:15 PM CDT Mycology (fungal) culture Bone Thoracic spine Microbiology Routine 11/17/2024 5 :15 PM CDT aPTT Lab Timed 11/18/2024 4:2 5 AM CDT Protime-INR Lab STAT 11/18/2024 6: 01 PM CDT Hepatic function panel Lab Routine 8:49 PM CDT Protime-INR Lab STAT 11/20/2024 8: 45 PM CDT aPTT Lab Timed 11/21/2024 10: 51 PM CDT Protime-INR Lab STAT 11/22/2024 11 :04 PM CDT Protime-INR Lab Routine 11/23/2024 9: 58 PM CDT aPTT Lab Routine 11/23/2024 9:5 8 PM CDT aPTT Lab Timed 11/24/2024 9:1 9 PM CDT Protime-INR Lab Timed 11/26/2024 12 :42 AM CDT Mycobacteriology (AFB) culture and acid-fast stain Tissue Heart Microbiology Routine 11/25/2024 8: 09 PM CDT Mycobacteriology (AFB) culture and acid-fast stain Tissue Heart Microbiology Routine 11/25/2024 8: 13 PM CDT Mycology (fungal) culture Tissue Heart Microbiology Routine 11/25/2024 8:13 PM CDT Mycobacteriology (AFB) culture and acid-fast stain Tissue Heart Microbiology Routine 11/25/2024 8: 17 PM CDT Mycology (fungal) culture Tissue Heart Microbiology Routine 11/25/2024 8:17 PM CDT Mycology (fungal) culture Tissue Heart Microbiology Routine 11/25/2024 8:28 PM CDT Mycobacteriology (AFB) culture and acid-fast stain Tissue Heart Microbiology Routine 11/25/2024 8: 28 PM CDT Hepatic function panel Lab Routine 12:42 AM CDT Hepatic function panel Lab Routine 9:24 PM CDT Scheduled Orders Name Type Priority Associated Diagnoses Order Schedule Erythrocyte sedimentation rate Lab Routine Once for 1 Occurrences starting 11/13/2024 until 11/13/2024 CRP (acute phase) Lab Routine Once fo r 1 Occurrences starting 11/13/2024 until 11/13/2024 Protime-INR Lab STAT Once for 1 Occurrences starting 11/15/2024 until 11/15/2024 Protime-INR Lab STAT Once for 1 Occurrences starting 11/17/2024 until 11/17/2024 aPTT Lab Timed Once for 1 Occurrences starting 11/17/2024 until 11/17/2024 aPTT Lab Timed Once for 1 Occurrences starting 11/18/2024 until 11/18/2024 Protime-INR Lab STAT Once for 1 Occurrences starting 11/18/2024 until 11/18/2024 Hepatic function panel Lab Routine On ce for 1 Occurrences starting 11/19/2024 until 11/19/2024 Protime-INR Lab STAT Once for 1 Occurrences starting 11/20/2024 until 11/20/2024 aPTT Lab Timed Once for 1 Occurrences starting 11/21/2024 until 11/21/2024 Protime-INR Lab STAT Once for 1 Occurrences starting 11/22/2024 until 11/22/2024 Protime-INR Lab Routine Once for 1 Occurrences starting 11/23/2024 until 11/23/2024 aPTT Lab Routine Once for 1 Occurrences starting 11/23/2024 until 11/23/2024 aPTT Lab Timed Once for 1 Occurrences starting 11/24/2024 until 11/24/2024 Mycobacteriology (AFB) culture and acid-fast stain Tissue Heart Microbiology Routine Once for 1 Occurrences starting 11/25/2024 until 11/25/2024 Mycobacteriology (AFB) culture and acid-fast stain Tissue Heart Microbiology Routine Once for 1 Occurrences starting 11/25/2024 until 11/25/2024 Mycology (fungal) culture Tissue Heart Microbiology Routine Once for 1 Occurrences starting 11/25/2024 until 11/25/2024 Mycobacteriology (AFB) culture and acid-fast stain Tissue Heart Microbiology Routine Once for 1 Occurrences starting 11/25/2024 until 11/25/2024 Mycology (fungal) culture Tissue Heart Microbiology Routine Once for 1 Occurrences starting 11/25/2024 until 11/25/2024 Mycology (fungal) culture Tissue Heart Microbiology Routine Once for 1 Occurrences starting 11/25/2024 until 11/25/2024 Mycobacteriology (AFB) culture and acid-fast stain Tissue Heart Microbiology Routine Once for 1 Occurrences starting 11/25/2024 until 11/25/2024 Hepatic function panel Lab Routine On ce for 1 Occurrences starting 11/26/2024 until 11/26/2024 Hepatic function panel Lab Routine On ce for 1 Occurrences starting 12/01/2024 until 12/01/2024 Scheduled Referrals Name Type Priority Associated Diagnoses Orde r Schedule Ambulatory referral to Infectious Disease Outpatient Referral Routine Bacteremia due to Enterococcus 1 Occurrences starting 11/17/2024 until 11/17/2025 documented as of this encounter Procedures Procedure Name Priority Date/Time Associated Diagnosis Comments ECG 12-LEAD STAT 12/02/2024 7:15 AM CDT EGFR Routine 12/01/2024 9:24 PM CDT DIFFERENTIAL AUTO Routine 12/01/2024 9:2 4 PM CDT CBC WITH AUTO DIFFERENTIAL Routine 12/01/2024 9:24 PM CDT PROTIME-INR Timed 12/01/2024 9:24 PM CDT HEPATIC FUNCTION PANEL Routine 9:24 PM CDT BASIC METABOLIC PANEL Routine 12/01/2024 9:[address] HEAD WO CONTRAST ED Urgent/IP Urgent 12/01/2024 7:[address] HEAD TOTAL SPINE WO CONTRAST Critical/Life- Threatening 12/01/2024 10:11 AM CDT EGFR Routine 11/30/2024 9:16 PM CDT PROTIME-INR Timed 11/30/2024 9:16 PM CDT TYPE AND SCREEN Timed 11/30/2024 9:16 PM CDT BASIC METABOLIC PANEL Routine 11/30/2024 9:16 PM CDT EGFR Routine 11/29/2024 10:18 PM CDT DIFFERENTIAL AUTO Timed 11/29/2024 10:18 PM CDT CBC WITH AUTO DIFFERENTIAL Timed 11/29/2024 10:18 PM CDT PROTIME-INR Timed 11/29/2024 10:18 PM CDT BASIC METABOLIC PANEL Routine 11/29/2024 10:18 PM CDT EGFR STAT 11/29/2024 9:25 AM CDT HEPARIN ANTI FACTOR XA ACTIVITY Routine 11/29/2024 9:25 AM CDT APTT STAT 11/29/2024 9:25 AM CDT PROTIME-INR STAT 11/29/2024 9:25 AM CDT CBC WITHOUT DIFFERENTIAL STAT 11/29/2024 9:25 AM CDT CREATININE STAT 11/29/2024 9:25 AM CDT EGFR Routine 11/28/2024 10:47 PM CDT PROTIME-INR Timed 11/28/2024 10:47 PM CDT BASIC METABOLIC PANEL Routine 11/28/2024 10:47 PM CDT APTT STAT 11/28/2024 2:32 PM CDT APTT STAT 11/28/2024 12:40 PM CDT APTT STAT 11/28/2024 10:37 AM CDT APTT STAT 11/28/2024 8:22 AM CDT APTT STAT 11/28/2024 4:19 AM CDT EGFR Routine 11/27/2024 8:31 PM CDT DIFFERENTIAL AUTO Routine 11/27/2024 8:3 1 PM CDT CBC WITH AUTO DIFFERENTIAL Routine 11/27/2024 8:31 PM CDT PROTIME-INR Timed 11/27/2024 8:31 PM CDT TYPE AND SCREEN Timed 11/27/2024 8:31 PM CDT BASIC METABOLIC PANEL Routine 11/27/2024 8:31 PM CDT APTT STAT 11/27/2024 5:13 AM CDT EGFR Routine 11/26/2024 7:52 PM CDT DIFFERENTIAL AUTO Routine 11/26/2024 7:5 2 PM CDT CBC WITH AUTO DIFFERENTIAL Routine 11/26/2024 7:52 PM CDT PROTIME-INR Timed 11/26/2024 7:52 PM CDT BASIC METABOLIC PANEL Routine 11/26/2024 7:52 PM CDT APTT STAT 11/26/2024 12:02 PM CDT APTT STAT 11/26/2024 9:28 AM CDT ECG 12-LEAD STAT 11/26/2024 8:42 AM CDT APTT STAT 11/26/2024 6:47 AM CDT APTT STAT 11/26/2024 4:03 AM CDT EGFR Routine 11/26/2024 12:42 AM CDT DIFFERENTIAL AUTO Routine 11/26/2024 12:42 AM CDT CBC WITH AUTO DIFFERENTIAL Routine 11/26/2024 12:42 AM CDT APTT STAT 11/26/2024 12:42 AM CDT PROTIME-INR STAT 11/26/2024 12:42 AM CDT HEPATIC FUNCTION PANEL Routine 12:42 AM CDT BASIC METABOLIC PANEL Routine 11/26/2024 12:42 AM CDT EGFR Routine 11/25/2024 9:52 PM CDT PHOSPHORUS Routine 11/25/2024 9:52 PM CDT MAGNESIUM Routine 11/25/2024 9:52 PM CDT BASIC METABOLIC PANEL Routine 11/25/2024 9:52 PM CDT ECG 12-LEAD Routine 11/25/2024 8:58 PM CDT FL FLUOROSCOPY < 1 HOUR IP Routine 11/25/2024 8:47 PM CDT AEROBIC CULTURE AND GRAM STAIN Routine 11/25/2024 8:28 PM CDT POC BLOOD GAS AND CHEMISTRIES, ARTERIAL Routine 11/25/2024 8:27 PM CDT AEROBIC CULTURE AND GRAM STAIN Routine 11/25/2024 8:17 PM CDT AEROBIC CULTURE AND GRAM STAIN Routine 11/25/2024 8:13 PM CDT AEROBIC CULTURE AND GRAM STAIN Routine 11/25/2024 8:09 PM CDT REMOVAL PACEMAKER GENERATOR/LEADS 11/25/2024 6:47 PM CDT Pacemaker infection, initial encounter NEVAEH ADD-ON FOR OR Routine 11/25/2024 6:3 7 PM CDT DIFFERENTIAL AUTO Timed 11/25/2024 12:46 PM CDT CBC WITH AUTO DIFFERENTIAL Timed 11/25/2024 12:46 PM CDT TRANSFUSE RED BLOOD CELLS Timed 11/25/2024 10:00 AM CDT HIT ANTIBODIES W/REFLEX TO SEROTONIN RELEASE ASSAY (MELODY) Timed 11/25/2024 8:09 AM CDT SEROTONIN RELEASE ASSAY Timed 11/25/2024 8:09 AM CDT APTT STAT 11/25/2024 8:09 AM CDT EGFR Routine 11/24/2024 9:19 PM CDT DIFFERENTIAL AUTO Routine 11/24/2024 9:1 9 PM CDT CBC WITH AUTO DIFFERENTIAL Routine 11/24/2024 9:19 PM CDT APTT Timed 11/24/2024 9:19 PM CDT PROTIME-INR Timed 11/24/2024 9:19 PM CDT MAGNESIUM Routine 11/24/2024 9:19 PM CDT BASIC METABOLIC PANEL Routine 11/24/2024 9:19 PM CDT B CHECK SAMPLE STAT 11/24/2024 12:21 PM CDT TYPE AND SCREEN Timed 11/24/2024 10:53 AM CDT PREPARE RBC Timed 11/24/2024 10:20 AM CDT EGFR Routine 11/23/2024 9:58 PM CDT DIFFERENTIAL AUTO Routine 11/23/2024 9:5 8 PM CDT HEPARIN ANTI FACTOR XA ACTIVITY Routine 11/23/2024 9:58 PM CDT CBC WITH AUTO DIFFERENTIAL Routine 11/23/2024 9:58 PM CDT APTT Routine 11/23/2024 9:58 PM CDT PROTIME-INR Routine 11/23/2024 9:58 PM CDT MAGNESIUM Routine 11/23/2024 9:58 PM CDT BASIC METABOLIC PANEL Routine 11/23/2024 9:58 PM CDT APTT STAT 11/22/2024 11:04 PM CDT PROTIME-INR STAT 11/22/2024 11:04 PM CDT APTT Timed 11/21/2024 10:51 PM CDT PROTIME-INR Timed 11/21/2024 10:51 PM CDT EGFR Routine 11/20/2024 8:45 PM CDT DIFFERENTIAL AUTO Routine 11/20/2024 8:4 5 PM CDT CBC WITH AUTO DIFFERENTIAL Routine 11/20/2024 8:45 PM CDT APTT STAT 11/20/2024 8:45 PM CDT PROTIME-INR STAT 11/20/2024 8:45 PM CDT MAGNESIUM Routine 11/20/2024 8:45 PM CDT BASIC METABOLIC PANEL Routine 11/20/2024 8:45 PM CDT EGFR Routine 11/19/2024 8:49 PM CDT DIFFERENTIAL AUTO Routine 11/19/2024 8:4 9 PM CDT CBC WITH AUTO DIFFERENTIAL Routine 11/19/2024 8:49 PM CDT APTT Routine 11/19/2024 8:49 PM CDT PROTIME-INR Timed 11/19/2024 8:49 PM CDT MAGNESIUM Routine 11/19/2024 8:49 PM CDT HEPATIC FUNCTION PANEL Routine 8:49 PM CDT BASIC METABOLIC PANEL Routine 11/19/2024 8:49 PM CDT TRANSESOPHAGEAL ECHO (NEVAEH) W DOPPLER/CF WO CONTRAST Routine 11/19/2024 1:42 PM CDT EGFR Routine 11/18/2024 6:01 PM CDT DIFFERENTIAL AUTO Routine 11/18/2024 6:0 1 PM CDT CBC WITH AUTO DIFFERENTIAL Routine 11/18/2024 6:01 PM CDT APTT STAT 11/18/2024 6:01 PM CDT PROTIME-INR STAT 11/18/2024 6:01 PM CDT MAGNESIUM Routine 11/18/2024 6:01 PM CDT BASIC METABOLIC PANEL Routine 11/18/2024 6:01 PM CDT APTT STAT 11/18/2024 11:45 AM CDT EGFR Routine 11/18/2024 4:25 AM CDT DIFFERENTIAL AUTO Routine 11/18/2024 4:2 5 AM CDT CBC WITH AUTO DIFFERENTIAL Routine 11/18/2024 4:25 AM CDT APTT Timed 11/18/2024 4:25 AM CDT PROTIME-INR Timed 11/18/2024 4:25 AM CDT MAGNESIUM Routine 11/18/2024 4:25 AM CDT BASIC METABOLIC PANEL Routine 11/18/2024 4:25 AM CDT TISSUE AEROBIC AND ANAEROBIC CULTURE AND GRAM STAIN Routine 11/17/2024 5:15 PM CDT BIOPSY DEEP BONE ED 11/17/2024 5:15 PM CDT MYCOLOGY (FUNGAL) CULTURE AND STAIN Routine 11/17/2024 5:15 PM CDT MYCOLOGY (FUNGAL) CULTURE Routine 11/17/2024 5:15 PM CDT AEROBIC AND ANAEROBIC CULTURE AND GRAM STAIN Routine 11/17/2024 5:15 PM CDT MYCOBACTERIOLOGY AFB CULTURE Routine 11/17/2024 5:15 PM CDT MYCOBACTERIOLOGY AFB CULTURE Routine 11/17/2024 5:15 PM CDT SURGICAL PATHOLOGY Routine 11/17/2024 5: 10 PM CDT Chronic midline thoracic back pain Bacteremia due to Enterococcus APTT Timed 11/17/2024 2:05 PM CDT PROTIME-INR Timed 11/17/2024 2:05 PM CDT MRI SPINE TOTAL COMPLETE W WO CONTRAST IP Routine 11/17/2024 1:04 PM CDT APTT STAT 11/17/2024 5:40 AM CDT PROTIME-INR STAT 11/17/2024 5:40 AM CDT EGFR Timed 11/17/2024 1:33 AM CDT DIFFERENTIAL AUTO Timed 11/17/2024 1:3 3 AM CDT CBC WITH AUTO DIFFERENTIAL Timed 11/17/2024 1:33 AM CDT BASIC METABOLIC PANEL Timed 11/17/2024 1:33 AM CDT POCT GLUCOSE DEVICE Routine 11/17/2024 1 :32 AM CDT EGFR Routine 11/16/2024 11:02 PM CDT DIFFERENTIAL AUTO Routine 11/16/2024 11:02 PM CDT CRITICAL RESULT CALLBACK CHEMISTRY Routine 11/16/2024 11:02 PM CDT CBC WITH AUTO DIFFERENTIAL Routine 11/16/2024 11:02 PM CDT APTT STAT 11/16/2024 11:02 PM CDT PROTIME-INR Timed 11/16/2024 11:02 PM CDT MAGNESIUM Routine 11/16/2024 11:02 PM CDT BASIC METABOLIC PANEL Routine 11/16/2024 11:02 PM CDT BLOOD CULTURE STAT 11/16/2024 11:31 AM CDT BLOOD CULTURE STAT 11/16/2024 11:31 AM CDT DIFFERENTIAL AUTO Routine 11/15/2024 11:46 PM CDT CBC WITH AUTO DIFFERENTIAL Routine 11/15/2024 11:46 PM CDT APTT STAT 11/15/2024 11:46 PM CDT PROTIME-INR STAT 11/15/2024 11:46 PM CDT MAGNESIUM Routine 11/15/2024 11:46 PM CDT BLOOD CULTURE STAT 11/15/2024 1:14 PM CDT EGFR STAT 11/15/2024 1:08 PM CDT BLOOD CULTURE STAT 11/15/2024 1:08 PM CDT BASIC METABOLIC PANEL STAT 11/15/2024 1:08 PM CDT PROTIME-INR Timed 11/15/2024 10:11 AM CDT EGFR Routine 11/14/2024 10:03 PM CDT CBC WITHOUT DIFFERENTIAL Routine 11/14/2024 10:03 PM CDT PHOSPHORUS Routine 11/14/2024 10:03 PM CDT MAGNESIUM Routine 11/14/2024 10:03 PM CDT BASIC METABOLIC PANEL Routine 11/14/2024 10:03 PM CDT APTT Timed 11/14/2024 6:53 PM CDT APTT STAT 11/14/2024 12:12 PM CDT ECG 12-LEAD STAT 11/14/2024 10:29 AM CDT TRANSTHORACIC ECHO (TTE) COMPLETE W DOPPLER/CF W CONTRAST Routine 11/14/2024 8:41 AM CDT APTT Timed 11/14/2024 4:31 AM CDT EGFR Routine 11/13/2024 10:35 PM CDT ERYTHROCYTE SEDIMENTATION RATE Routine 11/13/2024 10:35 PM CDT CBC WITHOUT DIFFERENTIAL Routine 11/13/2024 10:35 PM CDT CRP (ACUTE PHASE) Routine 11/13/2024 10:35 PM CDT MAGNESIUM Routine 11/13/2024 10:35 PM CDT BASIC METABOLIC PANEL Routine 11/13/2024 10:35 PM CDT APTT STAT 11/13/2024 5:26 PM CDT PROTIME-INR STAT 11/13/2024 5:26 PM CDT CBC WITHOUT DIFFERENTIAL STAT 11/13/2024 5:26 PM CDT EGFR STAT 11/13/2024 2:19 PM CDT DIFFERENTIAL AUTO STAT 11/13/2024 2:1 9 PM CDT CBC WITH AUTO DIFFERENTIAL STAT 11/13/2024 2:19 PM CDT BLOOD CULTURE STAT 11/13/2024 2:19 PM CDT BLOOD CULTURE STAT 11/13/2024 2:19 PM CDT COMPREHENSIVE METABOLIC PANEL STAT 11/13/2024 2:19 PM CDT XR CHEST PA LATERAL 2 VIEWS ED 11/13/2024 1:[address] OUTSIDE CONSULT Routine 11/13/2024 12:[address] OUTSIDE REFERENCE Routine 11/13/2024 12:13 PM CDT documented in this encounter Results * ECG 12 lead (12/02/2024 7:15 AM CDT) Ventricular Rate EKG/Min 78 BPM [facility] Atrial Rate 78 BPM [facility] UT-Interval (MSEC) 152 ms [facility] QRS-Interval (MSEC) 130 ms [facility] QT-Interval (MSEC) 466 ms [facility] QTc 531 ms [facility] P Lutz 105 degrees [facility] R Lutz -29 degrees [facility] T Lutz 127 degrees [facility] Diagnosis Sinus rhythm with Premature ventricular complexes or Fusion complexes Left bundle branch block Abnormal ECG When compared with ECG of 26-NOV-2024 08:42, Fusion complexes are now Present Premature ventricular complexes are now Present Left bundle branch block has replaced Non-specific intra-ventricula r conduction block Criteria for Anterior infarct are no longer Present Criteria for Anterolateral infarct are no longer Present Criteria for Inferior infarct are no longer Present Confirmed by RONNIE MENDEZ M.D ([id number]) on 12/02/2024 10:39:18 AM [facility] 12/02/2024 7:15 AM CDT 12/02/2024 10:39 AM CDT Brittney Martinez MD ECG ORDERABLES Final Res ult Performing Organization Address [facility] Co de Phone Number [facility] [employer] [facility] * (ABNORMAL) Hepatic function panel (12/01/2024 9:24 PM CDT) Bilirubin, total <0.2 0.1 - 1.2 mg/dL Bilirubin, direct <0.2 0.1 - 0.3 mg/dL [facility] Protein, pl 7.0 6.5 - 8.5 g/dL [facility] Albumin 3.4(L) 3.5 - 5.0 g/dL [facility] Alk phos 105 40 - 130 Units/L [facility] ALT 40 7 - 45 Units/L [facility] AST 53(H) 10 - 45 Units/L [facility] Blood 12/01/2024 9:24 PM CDT 12/01/2024 9:44 PM CDT us Brittney Martinez MD LAB BLOOD ORDERABLES Mirtha l Result Performing Organization Address [facility] Co de Phone Number [facility] Department [place] [address] * (ABNORMAL) eGFR (12/01/2024 9:24 PM CDT) eGFR 33(L) >=60 mL/min/1. 73 m2 Comment: Interpretive Data Reference Interval Normal >/= 90 mL/min/1.73m2 Mildly decreased* 60 - 89 mL/min/1.73m2 Mildly to moderately decreased 45 - 59 mL/min/1.73m2 Moderately to severely decreased 30 - 44 mL/min/1.73m2 Severely decreased 15 - 29 mL/min/1.73m2 Kidney Failure < 15 mL/min/1.73m2 *Relative to young adult level Estimated glomerular filtration rate is determined by the 2020 CKD-EPI equation recommended by the National Kid[employer] (A Unifying Approach to GFR Estimation: Recommendations of the NKF-ASK Task Force on Reassessing the Inclusion of Race in Diagnosing Kidney Disease, JASN 202). The CKD-EPI equation should not be used for patients with unstable renal function and has not been validated in children and those over 70. Current interpretive data was last reviewed 2021. Blood 12/01/2024 9:24 PM CDT 12/01/2024 9:44 PM CDT us Baltazar Manzano MD LAB BLOOD ORDERABLES F inal Result [facility] Department [place] [address] * (ABNORMAL) Differential, auto (12/01/2024 9:24 PM CDT) Neutrophil abs 3.75 1.50 - 6.50 K/cumm Imm gran abs 0.01 0.00 - 0.10 K/cumm [facility] Lymphocyte abs 0.52(L) 0.80 - 3.30 K/cumm [facility] Monocyte abs 0.36 0.20 - 0.80 K/cumm [facility] Eosinophil abs 0.37 0.00 - 0.50 K/cumm [facility] Basophil abs 0.08 0.00 - 0.10 K/cumm [facility] Neutrophil pct 73.6 % [facility] Comment: Interpretive Data Percent cell count reference ranges are not reported, since discordance with absolute values may lead to misinterpretation of CBC data. Current Interpretive Data was last revised on 2017. Imm gran pct 0.2 % [facility] Comment: Interpretive Data Percent cell count reference ranges are not reported, since discordance with absolute values may lead to misinterpretation of CBC data. Current Interpretive Data was last revised on 2017. Lymphocyte pct 10.2 % [facility] Comment: Interpretive Data Percent cell count reference ranges are not reported, since discordance with absolute values may lead to misinterpretation of CBC data. Current Interpretive Data was last revised on 2017. Monocyte pct 7.1 % [facility] Comment: Interpretive Data Percent cell count reference ranges are not reported, since discordance with absolute values may lead to misinterpretation of CBC data. Current Interpretive Data was last revised on 2017. Eosinophil pct 7.3 % [facility] Comment: Interpretive Data Percent cell count reference ranges are not reported, since discordance with absolute values may lead to misinterpretation of CBC data. Current Interpretive Data was last revised on 2017. Basophil pct 1.6 % [facility] Comment: Interpretive Data Percent cell count reference ranges are not reported, since discordance with absolute values may lead to misinterpretation of CBC data. Current Interpretive Data was last revised on 2017. Blood 12/01/2024 9:24 PM CDT 12/01/2024 9:44 PM CDT us Baltazar Manzano MD LAB BLOOD ORDERABLES F inal Result [facility] Department [place] [address] * (ABNORMAL) Protime-INR (12/01/2024 9:24 PM CDT) PT 22.9(H) 9.7 - 13.0 sec INR 2.09(H) 0.90 - 1.20 [facility] Comment: Interpretive data Oral anticoagulant therapeutic ranges: Venous thromboembolism prophylaxis or treatment: 2.0-3.0 CARDIOLOGY Standard range: 2.0-3.0 High-intensity range: 2.5-3.5 Refer to indication-specific guidelines for appropriate target ranges for prosthetic heart valve replacement. Current interpretive data was last revised on 2019. Blood 12/01/2024 9:24 PM CDT 12/01/2024 9:45 PM CDT Baltazar Manzano MD LAB BLOOD ORDERABLES F inal Result Performing Organization Address [facility]/ZIP Co de Phone Number [facility] Department [place] [address] * (ABNORMAL) CBC with auto differential (12/01/2024 9:24 PM CDT) Pathologist [facility] WBC 5.09 3.80 - 9.90 K/cumm Hgb 7.8(L) 11.9 - 15.5 g/dL [facility] Hct 26.0(L) 35.6 - 45.5 % [facility] Plt 176 150 - 400 K/cumm [facility] MPV 11.5 9.1 - 12.3 fL [facility] RBC 2.90(L) 3.90 - 5.20 M/cumm [facility] MCV 89.7 81.3 - 96.4 fL [facility] MCH 26.9(L) 27.1 - 33.3 pg [facility] MCHC 30.0(L) 32.3 - 35.7 g/dL [facility] RDW CV 17.2(H) 11.1 - 14.9 % [facility] RDW SD 55.6(H) 35.7 - 48.1 fL [facility] NRBC abs 0.00 0.00 - 0.01 K/cumm [facility] Blood 12/01/2024 9:24 PM CDT 12/01/2024 9:44 PM CDT Baltazar Manzano MD LAB BLOOD ORDERABLES F inal Result Performing Organization Address City/[facility]/ZIP Co de Phone Number [facility] [place] [address] * (ABNORMAL) Basic metabolic panel (12/01/2024 9:24 PM CDT) Pathologist [facility] Sodium 142 135 - 145 mmol/L Potassium, pl 4.6 3.3 - 4.9 mmol/L [facility] Chloride 108 97 - 110 mmol/L [facility] CO2 24 22 - 32 mmol/L [facility] Anion gap 10 2 - 15 mmol/L [facility] BUN 10 6 - 25 mg/dL [facility] Creatinine 1.70(H) 0.60 - 1.10 mg/dL [facility] Glucose 98 70 - 199 mg/dL [facility] Comment: Interpretive Data Fasting glucose >/= 126 mg/dl is diagnostic for diabetes. Fasting is defined as no caloric intake for at least 8 hours. Fasting glucose between 100 mg/dl to 125 mg/dl is diagnostic of prediabetes. In a patient with classic symptoms of hyperglycemia or hyperglycemic crisis, a random glucose >/= 200 mg/dl is diagnostic for diabetes. In the absence of unequivocal hyperglycemia, results should be confirmed by repeat testing. The classification and Diagnosis of Diabetes Diabetes Care 202; 46: S19-S40. Current interpretive data was last revised 2022. Calcium 8.5 8.5 - 10.3 mg/dL [facility] Blood 12/01/2024 9:24 PM CDT 12/01/2024 9:44 PM CDT us Baltazar Manzano MD LAB BLOOD ORDERABLES F inal Result [facility] Department [place] [address] * CT Head WO Contrast (12/01/2024 7:33 PM CDT) Anatomical Region Laterality Modality Head and Neck N/A Computed Tomogra phy 12/01/2024 7:50 PM CDT Impressions 12/01/2024 8:05 PM CDT 1. No acute intracranial hemorrhage, large territory infarct, or midline shift. 2. Right and left basal ganglia lacunar infarcts, likely chronic, although the right basal ganglia infarct is new from 2021. If clinically indicated, this could be further evaluated with MRI of the brain. Dictated by: Diogenes Hayes MD The radiology attending physician has personally reviewed this study, and had reviewed and/or edited this written report and agrees with it. Electronically signed by: Shilo Miller M.D. Narrative 12/01/2024 8:05 PM CDT EXAMINATION: CT head without contrast HISTORY: Nausea and vomiting after fall. TECHNIQUE: CT of the head was performed with images acquired from skull base to vertex without intravenous contrast. COMPARISON: CT head 12/01/2024 at 9:59 AM. FINDINGS: Again seen are right and left basal ganglia lacunar infarcts. The right basal ganglia infarct is new from 12/07/2021. Ill-defined periventricular white matter hypodensities, likely sequelae of chronic small vessel disease. There is no acute intracranial hemorrhage. Unchanged global parenchymal volume loss with mild dilation of the ventricular system. No mass effect or midline shift is present. The lieberman-white matter differentiation is normal. The visualized portions of the orbits are normal. The visualized portions of the mastoids are normal. Mild paranasal sinus mucosal thickening. No fractures are identified. Nasal septum is deviated to the right. Partially empty sella. Intracranial atherosclerotic calcifications. Procedure Note Shilo Miller III, MD PhD - 12/01/2024 EXAMINATION: CT head without contrast HISTORY: Nausea and vomiting after fall. TECHNIQUE: CT of the head was performed with images acquired from skull base to vertex without intravenous contrast. COMPARISON: CT head 12/01/2024 at 9:59 AM. FINDINGS: Again seen are right and left basal ganglia lacunar infarcts. The right basal ganglia infarct is new from 12/07/2021. Ill-defined periventricular white matter hypodensities, likely sequelae of chronic small vessel disease. There is no acute intracranial hemorrhage. Unchanged global parenchymal volume loss with mild dilation of the ventricular system. No mass effect or midline shift is present. The lieberman-white matter differentiation is normal. The visualized portions of the orbits are normal. The visualized portions of the mastoids are normal. Mild paranasal sinus mucosal thickening. No fractures are identified. Nasal septum is deviated to the right. Partially empty sella. Intracranial atherosclerotic calcifications. IMPRESSION: 1. No acute intracranial hemorrhage, large territory infarct, or midline shift. 2. Right and left basal ganglia lacunar infarcts, likely chronic, although the right basal ganglia infarct is new from 2021. If clinically indicated, this could be further evaluated with MRI of the brain. Dictated by: Diogenes Hayes MD The radiology attending physician has personally reviewed this study, and had reviewed and/or edited this written report and agrees with it. Electronically signed by: Shilo Miller M.D. us Brittney Martinez MD IMG CT PROCEDURES Final R esult * CT Head Total Spine WO Contrast (12/01/2024 10:11 AM CDT) Anatomical Region Laterality Modality Head and Neck N/A Computed Tomogra phy 12/01/2024 10:5 0 AM CDT Impressions 12/01/2024 11:17 AM CDT 1. No acute intracranial hemorrhage, mass effect or midline shift. New age-indeterminate hypodense right basal ganglia lacunar infarct compared to 2021. Favor chronic. MRI can be obtained if there is clinical concern for acute ischemia. 2. No acute cervical spine fracture. Multilevel degenerative disc disease most pronounced at C6-C7, without CT evidence of discitis osteomyelitis. 3. Unchanged endplate centered erosion and sclerosis centered at T10-T11, remaining suspicious for discitis osteomyelitis. No definite epidural extension. No acute thoracic spine fracture. 4. No acute lumbar spine fracture. Mild multilevel degenerative changes throughout the lumbar spine without CT evidence of discitis osteomyelitis. 5. Small left chest wall hematoma at the site of recently explanted cardiac pacemaker. 6. Cardiomegaly with mild pulmonary edema and small bilateral pleural effusions. Dictated by: Wali Adams MD The radiology attending physician has personally reviewed this study, and had reviewed and/or edited this written report and agrees with it. Electronically signed by: Aiden Macias MD Narrative 12/01/2024 11:17 AM CDT EXAMINATION: 1. CT HEAD WITHOUT CONTRAST 2. CT CERVICAL SPINE WITHOUT CONTRAST 3. CT THORACIC SPINE WITHOUT CONTRAST 4. CT LUMBAR SPINE WITHOUT CONTRAST HISTORY: Discitis osteomyelitis. Trauma on therapeutic anticoagulation TECHNIQUE: Computed tomography of the head was performed without contrast. Computed tomography of the cervical spine was performed without contrast. Computed tomography of the thoracic spine was performed without contrast. Computed tomography of the lumbar spine was performed without contrast. COMPARISON: MRI total spine 11/17/2024. CT head 12/07/2021. FINDINGS: HEAD: A chronic left basal ganglia lacunar infarct versus dilated perivascular space is unchanged. There is no additional, chronic appearing right basal ganglia lacunar infarct, new from prior. There is generalized parenchymal volume loss. Periventricular and subcortical white matter hypoattenuation is nonspecific but can be seen with chronic microvascular ischemic disease. There are atherosclerotic calcifications of the intracranial arteries. No acute intracranial hemorrhage. The ventricles are unchanged in size and morphology. No mass effect or midline shift. Normal lieberman-white matter differentiation. Imaged portions of the orbits are normal. Imaged portions of the paranasal sinuses are normal. Imaged portions of the mastoids are normal. No acute fracture identified. CERVICAL SPINE: The cervical spine is straightened. There is trace stepwise mild anterolisthesis from C3 through C6 associated with advanced chronic facet arthropathy. Straightening of the normal lordotic curvature. No acute fracture identified. Vertebral bodies are normal in height without compression fractures. The craniocervical junction intervals are normal with moderate anterior atlantoaxial degenerative joint disease. No soft tissue abnormality identified. There is multilevel degenerative disc and joint disease with varying levels of spinal canal and neuroforaminal stenosis. There is moderate degenerative disc disease most pronounced at at C6-C7 where endplate sclerosis, spurring and subchondral cysts are seen. Moderate bilateral C6-C7 neural foraminal stenosis results from uncovertebral hypertrophy. No large disc herniation, high grade spinal canal or neuroforaminal stenosis. THORACIC SPINE: There are 12 rib-bearing thoracic vertebra. Multiple intraosseous hemangiomas, most prominently within the T5 vertebral body, are again seen. No thoracic spondylolisthesis. The thoracic spine is straightened. Endplate centered erosion and sclerosis at T10-T11 is again seen. Associated moderate height loss of the T10 vertebral body is unchanged. No definite epidural phlegmon. No acute fracture identified. There is multilevel degenerative disc and joint disease with varying levels of spinal canal and neuroforaminal stenosis. No high grade spinal canal or neuroforaminal stenosis. LUMBAR SPINE: Alignment of the lumbar spine is normal. No acute fracture identified. A chronic moderate L1 compression fracture managed by kyphoplasty is unchanged. No soft tissue abnormality identified. There is multilevel degenerative disc and joint disease with varying levels of spinal canal and neuroforaminal stenosis. There is mild multilevel degenerative disc disease. There is moderate bilateral L5-S1 facet arthropathy and neural foraminal stenosis resulting from loss of foraminal height and endplate spurs. No high grade spinal canal or neuroforaminal stenosis. NON-NEUROLOGICAL FINDINGS: Limited views of the chest, abdomen, and pelvis demonstrate a hyperdense collection containing locules of gas with surrounding fat stranding within the left chest wall, measuring approximately 5 x 2.8 cm (series 17, image 99). Per chart review, a left chest wall pacemaker was explanted on 11/25/2024. There are postsurgical changes of median sternotomy, and composite ascending aortic repair with aortic valve replacement. A right upper extremity peripherally inserted central catheter terminates at the superior cavoatrial junction. A mitral valve prosthetic is present. The heart is enlarged. There is mild pulmonary edema and small bilateral pleural effusions. There is partial left lower lobe atelectasis. A medial right lung pneumatocele is unchanged. There are postsurgical changes of cholecystectomy. There are atherosclerotic calcifications of the aorta. Procedure Note Aiden Macias MD PhD - 12/01/2024 EXAMINATION: 1. CT HEAD WITHOUT CONTRAST 2. CT CERVICAL SPINE WITHOUT CONTRAST 3. CT THORACIC SPINE WITHOUT CONTRAST 4. CT LUMBAR SPINE WITHOUT CONTRAST HISTORY: Discitis osteomyelitis. Trauma on therapeutic anticoagulation TECHNIQUE: Computed tomography of the head was performed without contrast. Computed tomography of the cervical spine was performed without contrast. Computed tomography of the thoracic spine was performed without contrast. Computed tomography of the lumbar spine was performed without contrast. COMPARISON: MRI total spine 11/17/2024. CT head 12/07/2021. FINDINGS: HEAD: A chronic left basal ganglia lacunar infarct versus dilated perivascular space is unchanged. There is no additional, chronic appearing right basal ganglia lacunar infarct, new from prior. There is generalized parenchymal volume loss. Periventricular and subcortical white matter hypoattenuation is nonspecific but can be seen with chronic microvascular ischemic disease. There are atherosclerotic calcifications of the intracranial arteries. No acute intracranial hemorrhage. The ventricles are unchanged in size and morphology. No mass effect or midline shift. Normal lieberman-white matter differentiation. Imaged portions of the orbits are normal. Imaged portions of the paranasal sinuses are normal. Imaged portions of the mastoids are normal. No acute fracture identified. CERVICAL SPINE: The cervical spine is straightened. There is trace stepwise mild anterolisthesis from C3 through C6 associated with advanced chronic facet arthropathy. Straightening of the normal lordotic curvature. No acute fracture identified. Vertebral bodies are normal in height without compression fractures. The craniocervical junction intervals are normal with moderate anterior atlantoaxial degenerative joint disease. No soft tissue abnormality identified. There is multilevel degenerative disc and joint disease with varying levels of spinal canal and neuroforaminal stenosis. There is moderate degenerative disc disease most pronounced at at C6-C7 where endplate sclerosis, spurring and subchondral cysts are seen. Moderate bilateral C6-C7 neural foraminal stenosis results from uncovertebral hypertrophy. No large disc herniation, high grade spinal canal or neuroforaminal stenosis. THORACIC SPINE: There are 12 rib-bearing thoracic vertebra. Multiple intraosseous hemangiomas, most prominently within the T5 vertebral body, are again seen. No thoracic spondylolisthesis. The thoracic spine is straightened. Endplate centered erosion and sclerosis at T10-T11 is again seen. Associated moderate height loss of the T10 vertebral body is unchanged. No definite epidural phlegmon. No acute fracture identified. There is multilevel degenerative disc and joint disease with varying levels of spinal canal and neuroforaminal stenosis. No high grade spinal canal or neuroforaminal stenosis. LUMBAR SPINE: Alignment of the lumbar spine is normal. No acute fracture identified. A chronic moderate L1 compression fracture managed by kyphoplasty is unchanged. No soft tissue abnormality identified. There is multilevel degenerative disc and joint disease with varying levels of spinal canal and neuroforaminal stenosis. There is mild multilevel degenerative disc disease. There is moderate bilateral L5-S1 facet arthropathy and neural foraminal stenosis resulting from loss of foraminal height and endplate spurs. No high grade spinal canal or neuroforaminal stenosis. NON-NEUROLOGICAL FINDINGS: Limited views of the chest, abdomen, and pelvis demonstrate a hyperdense collection containing locules of gas with surrounding fat stranding within the left chest wall, measuring approximately 5 x 2.8 cm (series 17, image 99). Per chart review, a left chest wall pacemaker was explanted on 11/25/2024. There are postsurgical changes of median sternotomy, and composite ascending aortic repair with aortic valve replacement. A right upper extremity peripherally inserted central catheter terminates at the superior cavoatrial junction. A mitral valve prosthetic is present. The heart is enlarged. There is mild pulmonary edema and small bilateral pleural effusions. There is partial left lower lobe atelectasis. A medial right lung pneumatocele is unchanged. There are postsurgical changes of cholecystectomy. There are atherosclerotic calcifications of the aorta. IMPRESSION: 1. No acute intracranial hemorrhage, mass effect or midline shift. New age-indeterminate hypodense right basal ganglia lacunar infarct compared to 2021. Favor chronic. MRI can be obtained if there is clinical concern for acute ischemia. 2. No acute cervical spine fracture. Multilevel degenerative disc disease most pronounced at C6-C7, without CT evidence of discitis osteomyelitis. 3. Unchanged endplate centered erosion and sclerosis centered at T10-T11, remaining suspicious for discitis osteomyelitis. No definite epidural extension. No acute thoracic spine fracture. 4. No acute lumbar spine fracture. Mild multilevel degenerative changes throughout the lumbar spine without CT evidence of discitis osteomyelitis. 5. Small left chest wall hematoma at the site of recently explanted cardiac pacemaker. 6. Cardiomegaly with mild pulmonary edema and small bilateral pleural effusions. Dictated by: Wali Adams MD The radiology attending physician has personally reviewed this study, and had reviewed and/or edited this written report and agrees with it. Electronically signed by: Aiden Macias MD Brittney Martinez MD IMG CT PROCEDURES Final R esult * (ABNORMAL) eGFR (11/30/2024 9:16 PM CDT) eGFR 35(L) >=60 mL/min/1. 73 m2 Comment: Interpretive Data Reference Interval Normal >/= 90 mL/min/1.73m2 Mildly decreased* 60 - 89 mL/min/1.73m2 Mildly to moderately decreased 45 - 59 mL/min/1.73m2 Moderately to severely decreased 30 - 44 mL/min/1.73m2 Severely decreased 15 - 29 mL/min/1.73m2 Kidney Failure < 15 mL/min/1.73m2 *Relative to young adult level Estimated glomerular filtration rate is determined by the 2020 CKD-EPI equation recommended by the National Kidney Foundation (A Unifying Approach to GFR Estimation: Recommendations of the NKF-ASK Task Force on Reassessing the Inclusion of Race in Diagnosing Kidney Disease, JASN 2020). The CKD-EPI equation should not be used for patients with unstable renal function and has not been validated in children and those over 70. Current interpretive data was last reviewed 2021. Blood 11/30/2024 9:16 PM CDT 11/30/2024 9:40 PM CDT Baltazar Manzano MD LAB BLOOD ORDERABLES F inal Result Performing Organization Address City/[facility]/ZIP Co de Phone Number [facility] [place] [address] * (ABNORMAL) Basic metabolic panel (11/30/2024 9:16 PM CDT) [facility] Sodium 140 135 - 145 mmol/L Potassium, pl 4.4 3.3 - 4.9 mmol/L [facility] Chloride 110 97 - 110 mmol/L [facility] CO2 25 22 - 32 mmol/L [facility] Anion gap 5 2 - 15 mmol/L [facility] BUN 10 6 - 25 mg/dL [facility] Creatinine 1.59(H) 0.60 - 1.10 mg/dL [facility] Glucose 123 70 - 199 mg/dL [facility] Comment: Interpretive Data Fasting glucose >/= 126 mg/dl is diagnostic for diabetes. Fasting is defined as no caloric intake for at least 8 hours. Fasting glucose between 100 mg/dl to 125 mg/dl is diagnostic of prediabetes. In a patient with classic symptoms of hyperglycemia or hyperglycemic crisis, a random glucose >/= 200 mg/dl is diagnostic for diabetes. In the absence of unequivocal hyperglycemia, results should be confirmed by repeat testing. The classification and Diagnosis of Diabetes Diabetes Care 2021; 46: S19-S40. Current interpretive data was last revised 2022. Calcium 8.5 8.5 - 10.3 mg/dL [facility] Blood 11/30/2024 9:16 PM CDT 11/30/2024 9:40 PM CDT Baltazar Manzano MD LAB BLOOD ORDERABLES F inal Result Performing Organization Address [facility] Co de Phone Number [facility] [place] [address] * (ABNORMAL) Protime-INR (11/30/2024 9:16 PM CDT) Pathologist [facility] PT 16.8(H) 9.7 - 13.0 sec INR 1.54(H) 0.90 - 1.20 [facility] Comment: Interpretive data Oral anticoagulant therapeutic ranges: Venous thromboembolism prophylaxis or treatment: 2.0-3.0 CARDIOLOGY Standard range: 2.0-3.0 High-intensity range: 2.5-3.5 Refer to indication-specific guidelines for appropriate target ranges for prosthetic heart valve replacement. Current interpretive data was last revised on 2019. Blood 11/30/2024 9:16 PM CDT 11/30/2024 9:43 PM CDT Kandis Spencer MD LAB BLOOD ORDERABLES Final Resu lt Performing Organization Address [facility] Co de Phone Number [facility] [place] [address] * Type and screen (11/30/2024 9:16 PM CDT) Pathologist [facility] Man, indirect Negative ABO Rh A Positive [facility] Blood 11/30/2024 9:16 PM CDT 11/30/2024 9:49 PM CDT Narrative [facility] - 11/30/2024 10:42 PM CDT Has the patient had Daratumumab or Isatuximab in the past 6 months?->Unknown Baltazar Manzano MD LAB BLOOD BANK TEST OR DERABLES Final Result Performing Organization Address City/[facility]/ZIP Co de Phone Number [facility] [place] [address] * (ABNORMAL) eGFR (11/29/2024 10:18 PM CDT) Pathologist [facility] eGFR 34(L) >=60 mL/min/1. 73 m2 Comment: Interpretive Data Reference Interval Normal >/= 90 mL/min/1.73m2 Mildly decreased* 60 - 89 mL/min/1.73m2 Mildly to moderately decreased 45 - 59 mL/min/1.73m2 Moderately to severely decreased 30 - 44 mL/min/1.73m2 Severely decreased 15 - 29 mL/min/1.73m2 Kidney Failure < 15 mL/min/1.73m2 *Relative to young adult level Estimated glomerular filtration rate is determined by the 2020 CKD-EPI equation recommended by the National Kidney Foundation (A Unifying Approach to GFR Estimation: Recommendations of the NKF-ASK Task Force on Reassessing the Inclusion of Race in Diagnosing Kidney Disease, JASN 202). The CKD-EPI equation should not be used for patients with unstable renal function and has not been validated in children and those over 70. Current interpretive data was last reviewed 2021. Blood 11/29/2024 10:1 8 PM CDT 11/29/2024 11:31 PM CDT us Baltazar Manzano MD LAB BLOOD ORDERABLES F inal Result [facility] Department [place] [address] * (ABNORMAL) Differential, auto (11/29/2024 10:18 PM CDT) Neutrophil abs 4.10 1.50 - 6.50 K/cumm Imm gran abs 0.03 0.00 - 0.10 K/cumm [facility] Lymphocyte abs 0.70(L) 0.80 - 3.30 K/cumm [facility] Monocyte abs 0.44 0.20 - 0.80 K/cumm [facility] Eosinophil abs 0.45 0.00 - 0.50 K/cumm [facility] Basophil abs 0.07 0.00 - 0.10 K/cumm [facility] Neutrophil pct 70.8 % [facility] Comment: Interpretive Data Percent cell count reference ranges are not reported, since discordance with absolute values may lead to misinterpretation of CBC data. Current Interpretive Data was last revised on 2017. Imm gran pct 0.5 % [facility] Comment: Interpretive Data Percent cell count reference ranges are not reported, since discordance with absolute values may lead to misinterpretation of CBC data. Current Interpretive Data was last revised on 2017. Lymphocyte pct 12.1 % [facility] Comment: Interpretive Data Percent cell count reference ranges are not reported, since discordance with absolute values may lead to misinterpretation of CBC data. Current Interpretive Data was last revised on 2017. Monocyte pct 7.6 % [facility] Comment: Interpretive Data Percent cell count reference ranges are not reported, since discordance with absolute values may lead to misinterpretation of CBC data. Current Interpretive Data was last revised on 2017. Eosinophil pct 7.8 % [facility] Comment: Interpretive Data Percent cell count reference ranges are not reported, since discordance with absolute values may lead to misinterpretation of CBC data. Current Interpretive Data was last revised on 2017. Basophil pct 1.2 % [facility] Comment: Interpretive Data Percent cell count reference ranges are not reported, since discordance with absolute values may lead to misinterpretation of CBC data. Current Interpretive Data was last revised on 2017. Blood 11/29/2024 10:1 8 PM CDT 11/29/2024 11:31 PM CDT us Baltazar Manzano MD LAB BLOOD ORDERABLES F inal Result [facility] Department [place] [address] * (ABNORMAL) CBC with auto differential (11/29/2024 10:18 PM CDT) WBC 5.79 3.80 - 9.90 K/cumm Hgb 7.3(L) 11.9 - 15.5 g/dL [facility] Hct 24.1(L) 35.6 - 45.5 % [facility] Plt 162 150 - 400 K/cumm [facility] MPV 11.8 9.1 - 12.3 fL [facility] RBC 2.69(L) 3.90 - 5.20 M/cumm [facility] MCV 89.6 81.3 - 96.4 fL [facility] MCH 27.1 27.1 - 33.3 pg [facility] MCHC 30.3(L) 32.3 - 35.7 g/dL [facility] RDW CV 17.1(H) 11.1 - 14.9 % [facility] RDW SD 55.2(H) 35.7 - 48.1 fL [facility] NRBC abs 0.00 0.00 - 0.01 K/cumm [facility] Blood 11/29/2024 10:1 8 PM CDT 11/29/2024 11:31 PM CDT us Baltazar Manzano MD LAB BLOOD ORDERABLES F inal Result [facility] Department [place] [address] * (ABNORMAL) Basic metabolic panel (11/29/2024 10:18 PM CDT) Pathologist [facility] Sodium 145 135 - 145 mmol/L Potassium, pl 4.2 3.3 - 4.9 mmol/L [facility] Chloride 111(H) 97 - 110 mmol/L [facility] CO2 24 22 - 32 mmol/L [facility] Anion gap 10 2 - 15 mmol/L [facility] BUN 12 6 - 25 mg/dL [facility] Creatinine 1.63(H) 0.60 - 1.10 mg/dL [facility] Glucose 99 70 - 199 mg/dL [facility] Comment: Interpretive Data Fasting glucose >/= 126 mg/dl is diagnostic for diabetes. Fasting is defined as no caloric intake for at least 8 hours. Fasting glucose between 100 mg/dl to 125 mg/dl is diagnostic of prediabetes. In a patient with classic symptoms of hyperglycemia or hyperglycemic crisis, a random glucose >/= 200 mg/dl is diagnostic for diabetes. In the absence of unequivocal hyperglycemia, results should be confirmed by repeat testing. The classification and Diagnosis of Diabetes Diabetes Care 202; 46: S19-S40. Current interpretive data was last revised 2022. Calcium 8.5 8.5 - 10.3 mg/dL [facility] Blood 11/29/2024 10:1 8 PM CDT 11/29/2024 11:31 PM CDT Baltazar Manzano MD LAB BLOOD ORDERABLES F inal Result Performing Organization Address [facility] de Phone Number [facility] [place] [address] * (ABNORMAL) Protime-INR (11/29/2024 10:18 PM CDT) PT 15.1(H) 9.7 - 13.0 sec INR 1.39(H) 0.90 - 1.20 [facility] Comment: Interpretive data Oral anticoagulant therapeutic ranges: Venous thromboembolism prophylaxis or treatment: 2.0-3.0 CARDIOLOGY Standard range: 2.0-3.0 High-intensity range: 2.5-3.5 Refer to indication-specific guidelines for appropriate target ranges for prosthetic heart valve replacement. Current interpretive data was last revised on 2019. Blood 11/29/2024 10:1 8 PM CDT 11/29/2024 11:26 PM CDT us Kandis Spencer MD LAB BLOOD ORDERABLES Final Resu lt Performing Organization Address [facility] de Phone Number [facility] [place] [address] * (ABNORMAL) eGFR (11/29/2024 9:25 AM CDT) eGFR 35(L) >=60 mL/min/1. 73 m2 Comment: Interpretive Data Reference Interval Normal >/= 90 mL/min/1.73m2 Mildly decreased* 60 - 89 mL/min/1.73m2 Mildly to moderately decreased 45 - 59 mL/min/1.73m2 Moderately to severely decreased 30 - 44 mL/min/1.73m2 Severely decreased 15 - 29 mL/min/1.73m2 Kidney Failure < 15 mL/min/1.73m2 *Relative to young adult level Estimated glomerular filtration rate is determined by the 2020 CKD-EPI equation recommended by the National Kidney Foundation (A Unifying Approach to GFR Estimation: Recommendations of the NKF-ASK Task Force on Reassessing the Inclusion of Race in Diagnosing Kidney Disease, JASN 2020). The CKD-EPI equation should not be used for patients with unstable renal function and has not been validated in children and those over 70. Current interpretive data was last reviewed 2021. Blood 11/29/2024 9:25 AM CDT 11/29/2024 9:37 AM CDT Baltazar Manzano MD LAB BLOOD ORDERABLES F inal Result Performing Organization Address City/[facility]/ZIP Co de Phone Number [facility] [place] [address] * (ABNORMAL) Creatinine (11/29/2024 9:25 AM CDT) Creatinine 1.61(H) 0.60 - 1.10 mg/dL Blood 11/29/2024 9:25 AM CDT 11/29/2024 9:37 AM CDT Narrative [facility] - 11/29/2024 10:03 AM CDT Baseline prior to enoxaparin initiation. Baltazar Manzano MD LAB BLOOD ORDERABLES F inal Result Performing Organization Address City/[facility]/ZIP Co de Phone Number [facility] [place] [address] * (ABNORMAL) aPTT (11/29/2024 9:25 AM CDT) aPTT 40(H) 28 - 38 sec Comment: Interpretive Data Heparin therapeutic range: 66.0 - 100.0 seconds. Range based on correlation with therapeutic heparin activity range of 0.3 - 0.7 Units/mL. Current interpretive data was last revised on 2023. Blood 11/29/2024 9:25 AM CDT 11/29/2024 9:37 AM CDT Narrative [facility] - 11/29/2024 10:00 AM CDT Baseline prior to enoxaparin initiation. Baltazar Manzano MD LAB BLOOD ORDERABLES F inal Result Performing Organization Address [facility]/ZIP Co de Phone Number [facility] [place] [address] * (ABNORMAL) CBC without differential (11/29/2024 9:25 AM CDT) [facility] WBC 7.02 3.80 - 9.90 K/cumm Hgb 8.2(L) 11.9 - 15.5 g/dL [facility] Hct 27.4(L) 35.6 - 45.5 % [facility] Plt 187 150 - 400 K/cumm [facility] MPV 11.1 9.1 - 12.3 fL [facility] RBC 3.07(L) 3.90 - 5.20 M/cumm [facility] MCV 89.3 81.3 - 96.4 fL [facility] MCH 26.7(L) 27.1 - 33.3 pg [facility] MCHC 29.9(L) 32.3 - 35.7 g/dL [facility] RDW CV 17.1(H) 11.1 - 14.9 % [facility] RDW SD 54.7(H) 35.7 - 48.1 fL [facility] NRBC abs 0.00 0.00 - 0.01 K/cumm [facility] Blood 11/29/2024 9:25 AM CDT 11/29/2024 9:37 AM CDT Narrative [facility] - 11/29/2024 9:45 AM CDT Baseline prior to enoxaparin initiation. Baltazar Manzano MD LAB BLOOD ORDERABLES F inal Result Performing Organization Address [facility] Co de Phone Number [facility] [place] [address] * (ABNORMAL) Protime-INR (11/29/2024 9:25 AM CDT) PT 15.7(H) 9.7 - 13.0 sec INR 1.44(H) 0.90 - 1.20 [facility] Comment: Interpretive data Oral anticoagulant therapeutic ranges: Venous thromboembolism prophylaxis or treatment: 2.0-3.0 CARDIOLOGY Standard range: 2.0-3.0 High-intensity range: 2.5-3.5 Refer to indication-specific guidelines for appropriate target ranges for prosthetic heart valve replacement. Current interpretive data was last revised on 2019. Blood 11/29/2024 9:25 AM CDT 11/29/2024 9:37 AM CDT Narrative [facility] - 11/29/2024 10:00 AM CDT Baseline prior to enoxaparin initiation. Baltazar Manzano MD LAB BLOOD ORDERABLES F inal Result [facility] [place] [address] * Heparin anti factor Xa activity (11/29/2024 9:25 AM CDT) Anti Factor Xa <0.10 IUnits/mL Comment: Interpretive Data Enoxaparin therapeutic range (peak): VTE treatment, Q12hr dosin.60-1.00 IUnits/mL VTE treatment, Q24hr dosin.00-2.00 IUnits/mL Q24hr dosing for renal impairment (CrCl <30 mL/min): 0.60-1.00 IUnits/mL VTE prevention: 0.10-0.40 IUnits/mL - Anti-Xa therapeutic ranges apply to blood samples drawn 4 hours after last dose (peak). - Unfractionated heparin (UFH) therapeutic range: 0.30-0.70 IUnits/mL - Direct factor Xa inhibitors (rivaroxaban, apixaban): Results must be interpreted qualitatively. No activity detected suggests little anticoagulant activity. - In severe antithrombin deficiency, anti-Xa measurement may be inaccurate. - Interpretive guidelines developed in adult populations. Interpretive guidelines for pediatric patients have not been rigorously defined. - Current interpretive data was last revised on 2019. Blood 11/29/2024 9:25 AM CDT 11/29/2024 9:37 AM CDT Baltazar Manzano MD LAB BLOOD ORDERABLES F inal Result Performing Organization Address [facility] de Phone Number [facility] [place] [address] * (ABNORMAL) eGFR (11/28/2024 10:47 PM CDT) eGFR 37(L) >=60 mL/min/1. 73 m2 Comment: Interpretive Data Reference Interval Normal >/= 90 mL/min/1.73m2 Mildly decreased* 60 - 89 mL/min/1.73m2 Mildly to moderately decreased 45 - 59 mL/min/1.73m2 Moderately to severely decreased 30 - 44 mL/min/1.73m2 Severely decreased 15 - 29 mL/min/1.73m2 Kidney Failure < 15 mL/min/1.73m2 *Relative to young adult level Estimated glomerular filtration rate is determined by the 2020 CKD-EPI equation recommended by the National Kidney Foundation (A Unifying Approach to GFR Estimation: Recommendations of the NKF-ASK Task Force on Reassessing the Inclusion of Race in Diagnosing Kidney Disease, JASN 202). The CKD-EPI equation should not be used for patients with unstable renal function and has not been validated in children and those over 70. Current interpretive data was last reviewed 2021. Blood 11/28/2024 10:4 7 PM CDT 11/28/2024 11:38 PM CDT Baltazar Manzano MD LAB BLOOD ORDERABLES F inal Result Performing Organization Address [facility] Co de Phone Number [facility] [place] [address] * (ABNORMAL) Basic metabolic panel (11/28/2024 10:47 PM CDT) Sodium 139 135 - 145 mmol/L Potassium, pl 3.7 3.3 - 4.9 mmol/L [facility] Chloride 104 97 - 110 mmol/L [facility] CO2 25 22 - 32 mmol/L [facility] Anion gap 10 2 - 15 mmol/L [facility] BUN 13 6 - 25 mg/dL [facility] Creatinine 1.52(H) 0.60 - 1.10 mg/dL [facility] Glucose 131 70 - 199 mg/dL [facility] Comment: Interpretive Data Fasting glucose >/= 126 mg/dl is diagnostic for diabetes. Fasting is defined as no caloric intake for at least 8 hours. Fasting glucose between 100 mg/dl to 125 mg/dl is diagnostic of prediabetes. In a patient with classic symptoms of hyperglycemia or hyperglycemic crisis, a random glucose >/= 200 mg/dl is diagnostic for diabetes. In the absence of unequivocal hyperglycemia, results should be confirmed by repeat testing. The classification and Diagnosis of Diabetes Diabetes Care 2021; 46: S19-S40. Current interpretive data was last revised 2022. Calcium 8.1(L) 8.5 - 10.3 mg/dL [facility] Blood 11/28/2024 10:4 7 PM CDT 11/28/2024 11:38 PM CDT us Baltazar Manzano MD LAB BLOOD ORDERABLES F inal Result [facility] Department [place] [address] * (ABNORMAL) Protime-INR (11/28/2024 10:47 PM CDT) Pathologist [facility] PT 18.1(H) 9.7 - 13.0 sec INR 1.66(H) 0.90 - 1.20 [facility] Comment: Interpretive data Oral anticoagulant therapeutic ranges: Venous thromboembolism prophylaxis or treatment: 2.0-3.0 CARDIOLOGY Standard range: 2.0-3.0 High-intensity range: 2.5-3.5 Refer to indication-specific guidelines for appropriate target ranges for prosthetic heart valve replacement. Current interpretive data was last revised on 2019. Blood 11/28/2024 10:4 7 PM CDT 11/29/2024 12:14 AM CDT us Kandis Spencer MD LAB BLOOD ORDERABLES Final Resu lt Performing Organization Address [facility] Co de Phone Number [facility] [place] [address] * (ABNORMAL) aPTT (11/28/2024 2:32 PM CDT) aPTT 50(H) 28 - 38 sec Comment: Interpretive Data Heparin therapeutic range: 66.0 - 100.0 seconds. Range based on correlation with therapeutic heparin activity range of 0.3 - 0.7 Units/mL. Current interpretive data was last revised on 2023. Blood 11/28/2024 2:32 PM CDT 11/28/2024 2:47 PM CDT Narrative [facility] - 11/28/2024 3:10 PM CDT STAT PTT timing: - Draw 6 hours after heparin infusion initiation - Draw 6 hours after every dose change until 2 consecutive PTTs are therapeutic - Once 2 consecutive PTTs are therapeutic, obtain with daily labs until infusion is discontinued - - Restart every 6 hour lab draws and follow instructions accordingly if PTT is outside of therapeutic range Do not draw lab from IV line that is actively infusing heparin. Use the opposite arm. If arm with actively infusing heparin must be used, pause the infusion for at least 2 minutes, and draw specimen below the IV site. For patients with a central venous catheter (CVC), lab must be drawn peripherally (not from CVC). us Ranulfo Gentile MD LAB BLOOD ORDERABLES Final R esult Performing Organization Address [facility]/ZIP Co de Phone Number [facility] [place] [address] * (ABNORMAL) aPTT (11/28/2024 12:40 PM CDT) aPTT 52(H) 28 - 38 sec Comment: Interpretive Data Heparin therapeutic range: 66.0 - 100.0 seconds. Range based on correlation with therapeutic heparin activity range of 0.3 - 0.7 Units/mL. Current interpretive data was last revised on 2023. Blood 11/28/2024 12:4 0 PM CDT 11/28/2024 1:02 PM CDT Patsy [facility] - 11/28/2024 1:23 PM CDT STAT PTT timing: - Draw 6 hours after heparin infusion initiation - Draw 6 hours after every dose change until 2 consecutive PTTs are therapeutic - Once 2 consecutive PTTs are therapeutic, obtain with daily labs until infusion is discontinued - - Restart every 6 hour lab draws and follow instructions accordingly if PTT is outside of therapeutic range Do not draw lab from IV line that is actively infusing heparin. Use the opposite arm. If arm with actively infusing heparin must be used, pause the infusion for at least 2 minutes, and draw specimen below the IV site. For patients with a central venous catheter (CVC), lab must be drawn peripherally (not from CVC). us Ranulfo Gentile MD LAB BLOOD ORDERABLES Final R esult [facility] Department [place] [address] * (ABNORMAL) aPTT (11/28/2024 10:37 AM CDT) Pathologist [facility] aPTT 53(H) 28 - 38 sec Comment: Interpretive Data Heparin therapeutic range: 66.0 - 100.0 seconds. Range based on correlation with therapeutic heparin activity range of 0.3 - 0.7 Units/mL. Current interpretive data was last revised on 2023. Blood 11/28/2024 10:3 7 AM CDT 11/28/2024 10:48 AM CDT Narrative [facility] - 11/28/2024 11:15 AM CDT STAT PTT timing: - Draw 6 hours after heparin infusion initiation - Draw 6 hours after every dose change until 2 consecutive PTTs are therapeutic - Once 2 consecutive PTTs are therapeutic, obtain with daily labs until infusion is discontinued - - Restart every 6 hour lab draws and follow instructions accordingly if PTT is outside of therapeutic range Do not draw lab from IV line that is actively infusing heparin. Use the opposite arm. If arm with actively infusing heparin must be used, pause the infusion for at least 2 minutes, and draw specimen below the IV site. For patients with a central venous catheter (CVC), lab must be drawn peripherally (not from CVC). us Ranulfo Gentile MD LAB BLOOD ORDERABLES Final R esult [facility] Department [place] [address] * (ABNORMAL) aPTT (11/28/2024 8:22 AM CDT) [facility] Signature aPTT 50(H) 28 - 38 sec Comment: Interpretive Data Heparin therapeutic range: 66.0 - 100.0 seconds. Range based on correlation with therapeutic heparin activity range of 0.3 - 0.7 Units/mL. Current interpretive data was last revised on 2023. Blood 11/28/2024 8:22 AM CDT 11/28/2024 8:34 AM CDT Narrative [facility] - 11/28/2024 8:56 AM CDT STAT PTT timing: - Draw 6 hours after heparin infusion initiation - Draw 6 hours after every dose change until 2 consecutive PTTs are therapeutic - Once 2 consecutive PTTs are therapeutic, obtain with daily labs until infusion is discontinued - - Restart every 6 hour lab draws and follow instructions accordingly if PTT is outside of therapeutic range Do not draw lab from IV line that is actively infusing heparin. Use the opposite arm. If arm with actively infusing heparin must be used, pause the infusion for at least 2 minutes, and draw specimen below the IV site. For patients with a central venous catheter (CVC), lab must be drawn peripherally (not from CVC). us Ranulfo Gentile MD LAB BLOOD ORDERABLES Final R esult Performing Organization Address City/[facility]/ZIP Co de Phone Number [facility] [place] [address] * (ABNORMAL) aPTT (11/28/2024 4:19 AM CDT) aPTT 49(H) 28 - 38 sec Comment: Interpretive Data Heparin therapeutic range: 66.0 - 100.0 seconds. Range based on correlation with therapeutic heparin activity range of 0.3 - 0.7 Units/mL. Current interpretive data was last revised on 2023. Blood 11/28/2024 4:19 AM CDT 11/28/2024 4:43 AM CDT Baltazar Manzano MD LAB BLOOD ORDERABLES F inal Result Performing Organization Address [facility] Co de Phone Number [facility] Department [place] [address] * (ABNORMAL) eGFR (11/27/2024 8:31 PM CDT) eGFR 33(L) >=60 mL/min/1. 73 m2 Comment: Interpretive Data Reference Interval Normal >/= 90 mL/min/1.73m2 Mildly decreased* 60 - 89 mL/min/1.73m2 Mildly to moderately decreased 45 - 59 mL/min/1.73m2 Moderately to severely decreased 30 - 44 mL/min/1.73m2 Severely decreased 15 - 29 mL/min/1.73m2 Kidney Failure < 15 mL/min/1.73m2 *Relative to young adult level Estimated glomerular filtration rate is determined by the 2020 CKD-EPI equation recommended by the National Kid[employer] (A Unifying Approach to GFR Estimation: Recommendations of the NKF-ASK Task Force on Reassessing the Inclusion of Race in Diagnosing Kidney Disease, JASN 2020). The CKD-EPI equation should not be used for patients with unstable renal function and has not been validated in children and those over 70. Current interpretive data was last reviewed 2021. Blood 11/27/2024 8:31 PM CDT 11/27/2024 9:03 PM CDT us Baltazar Manzano MD LAB BLOOD ORDERABLES F inal Result [facility] Department [place] [address] * Differential, auto (11/27/2024 8:31 PM CDT) Neutrophil abs 4.46 1.50 - 6.50 K/cumm Imm gran abs 0.01 0.00 - 0.10 K/cumm [facility] Lymphocyte abs 0.80 0.80 - 3.30 K/cumm [facility] Monocyte abs 0.47 0.20 - 0.80 K/cumm [facility] Eosinophil abs 0.30 0.00 - 0.50 K/cumm [facility] Basophil abs 0.07 0.00 - 0.10 K/cumm [facility] Neutrophil pct 73.0 % [facility] Comment: Interpretive Data Percent cell count reference ranges are not reported, since discordance with absolute values may lead to misinterpretation of CBC data. Current Interpretive Data was last revised on 2017. Imm gran pct 0.2 % [facility] Comment: Interpretive Data Percent cell count reference ranges are not reported, since discordance with absolute values may lead to misinterpretation of CBC data. Current Interpretive Data was last revised on 2017. Lymphocyte pct 13.1 % [facility] Comment: Interpretive Data Percent cell count reference ranges are not reported, since discordance with absolute values may lead to misinterpretation of CBC data. Current Interpretive Data was last revised on 2017. Monocyte pct 7.7 % [facility] Comment: Interpretive Data Percent cell count reference ranges are not reported, since discordance with absolute values may lead to misinterpretation of CBC data. Current Interpretive Data was last revised on 2017. Eosinophil pct 4.9 % [facility] Comment: Interpretive Data Percent cell count reference ranges are not reported, since discordance with absolute values may lead to misinterpretation of CBC data. Current Interpretive Data was last revised on 2017. Basophil pct 1.1 % [facility] Comment: Interpretive Data Percent cell count reference ranges are not reported, since discordance with absolute values may lead to misinterpretation of CBC data. Current Interpretive Data was last revised on 2017. Blood 11/27/2024 8:31 PM CDT 11/27/2024 9:03 PM CDT Baltazar Manzano MD LAB BLOOD ORDERABLES F inal Result [facility] Department [place] [address] * (ABNORMAL) CBC with auto differential (11/27/2024 8:31 PM CDT) Pathologist [facility] WBC 6.11 3.80 - 9.90 K/cumm Hgb 7.8(L) 11.9 - 15.5 g/dL [facility] Hct 25.6(L) 35.6 - 45.5 % [facility] Plt 168 150 - 400 K/cumm [facility] MPV 11.6 9.1 - 12.3 fL [facility] RBC 2.88(L) 3.90 - 5.20 M/cumm [facility] MCV 88.9 81.3 - 96.4 fL [facility] MCH 27.1 27.1 - 33.3 pg [facility] MCHC 30.5(L) 32.3 - 35.7 g/dL [facility] RDW CV 17.0(H) 11.1 - 14.9 % [facility] RDW SD 54.6(H) 35.7 - 48.1 fL [facility] NRBC abs 0.00 0.00 - 0.01 K/cumm [facility] Blood 11/27/2024 8:31 PM CDT 11/27/2024 9:03 PM CDT Baltazar Manzano MD LAB BLOOD ORDERABLES F inal Result Performing Organization Address City/[facility]/ZIP Co de Phone Number [facility] Department [place] [address] * (ABNORMAL) Basic metabolic panel (11/27/2024 8:31 PM CDT) Sodium 140 135 - 145 mmol/L Potassium, pl 4.3 3.3 - 4.9 mmol/L [facility] Chloride 108 97 - 110 mmol/L [facility] CO2 25 22 - 32 mmol/L [facility] Anion gap 7 2 - 15 mmol/L [facility] BUN 14 6 - 25 mg/dL [facility] Creatinine 1.70(H) 0.60 - 1.10 mg/dL [facility] Glucose 102 70 - 199 mg/dL [facility] Comment: Interpretive Data Fasting glucose >/= 126 mg/dl is diagnostic for diabetes. Fasting is defined as no caloric intake for at least 8 hours. Fasting glucose between 100 mg/dl to 125 mg/dl is diagnostic of prediabetes. In a patient with classic symptoms of hyperglycemia or hyperglycemic crisis, a random glucose >/= 200 mg/dl is diagnostic for diabetes. In the absence of unequivocal hyperglycemia, results should be confirmed by repeat testing. The classification and Diagnosis of Diabetes Diabetes Care 2021; 46: S19-S40. Current interpretive data was last revised 2022. Calcium 8.5 8.5 - 10.3 mg/dL [facility] Blood 11/27/2024 8:31 PM CDT 11/27/2024 9:03 PM CDT Baltazar Manzano MD LAB BLOOD ORDERABLES F inal Result [facility] Department [place] [address] * (ABNORMAL) Protime-INR (11/27/2024 8:31 PM CDT) PT 16.6(H) 9.7 - 13.0 sec INR 1.52(H) 0.90 - 1.20 [facility] Comment: Interpretive data Oral anticoagulant therapeutic ranges: Venous thromboembolism prophylaxis or treatment: 2.0-3.0 CARDIOLOGY Standard range: 2.0-3.0 High-intensity range: 2.5-3.5 Refer to indication-specific guidelines for appropriate target ranges for prosthetic heart valve replacement. Current interpretive data was last revised on 2019. Blood 11/27/2024 8:31 PM CDT 11/27/2024 9:03 PM CDT Kandis Spencer MD LAB BLOOD ORDERABLES Final Resu lt Performing Organization Address City/[facility]/ZIP Co de Phone Number [facility] Department [place] [address] * Type and screen (11/27/2024 8:31 PM CDT) ABO Rh A Positive Man, indirect Negative [facility] Blood 11/27/2024 8:31 PM CDT 11/27/2024 9:15 PM CDT Narrative [facility] - 11/27/2024 10:20 PM CDT Has the patient had Daratumumab or Isatuximab in the past 6 months?->Unknown Baltazar Manzano MD LAB BLOOD BANK TEST OR DERABLES Final Result Performing Organization Address [facility] Co de Phone Number [facility] [place] [address] * (ABNORMAL) aPTT (11/27/2024 5:13 AM CDT) aPTT 52(H) 28 - 38 sec Comment: Interpretive Data Heparin therapeutic range: 66.0 - 100.0 seconds. Range based on correlation with therapeutic heparin activity range of 0.3 - 0.7 Units/mL. Current interpretive data was last revised on 2023. Blood 11/27/2024 5:13 AM CDT 11/27/2024 5:32 AM CDT Baltazar Manzano MD LAB BLOOD ORDERABLES F inal Result Performing Organization Address [facility] Co de Phone Number [facility] [place] [address] * (ABNORMAL) eGFR (11/26/2024 7:52 PM CDT) Pathologist [facility] eGFR 32(L) >=60 mL/min/1. 73 m2 Comment: Interpretive Data Reference Interval Normal >/= 90 mL/min/1.73m2 Mildly decreased* 60 - 89 mL/min/1.73m2 Mildly to moderately decreased 45 - 59 mL/min/1.73m2 Moderately to severely decreased 30 - 44 mL/min/1.73m2 Severely decreased 15 - 29 mL/min/1.73m2 Kidney Failure < 15 mL/min/1.73m2 *Relative to young adult level Estimated glomerular filtration rate is determined by the 2020 CKD-EPI equation recommended by the National Kidney Foundation (A Unifying Approach to GFR Estimation: Recommendations of the NKF-ASK Task Force on Reassessing the Inclusion of Race in Diagnosing Kidney Disease, JASN 2020). The CKD-EPI equation should not be used for patients with unstable renal function and has not been validated in children and those over 70. Current interpretive data was last reviewed 2021. Blood 11/26/2024 7:52 PM CDT 11/26/2024 8:02 PM CDT Baltazar Manzano MD LAB BLOOD ORDERABLES F inal Result Performing Organization Address [facility] Co de Phone Number [facility] [place] [address] * Differential, auto (11/26/2024 7:52 PM CDT) Neutrophil abs 4.75 1.50 - 6.50 K/cumm Imm gran abs 0.03 0.00 - 0.10 K/cumm [facility] Lymphocyte abs 0.82 0.80 - 3.30 K/cumm [facility] Monocyte abs 0.50 0.20 - 0.80 K/cumm [facility] Eosinophil abs 0.24 0.00 - 0.50 K/cumm [facility] Basophil abs 0.06 0.00 - 0.10 K/cumm [facility] Neutrophil pct 74.2 % [facility] Comment: Interpretive Data Percent cell count reference ranges are not reported, since discordance with absolute values may lead to misinterpretation of CBC data. Current Interpretive Data was last revised on 2017. Imm gran pct 0.5 % [facility] Comment: Interpretive Data Percent cell count reference ranges are not reported, since discordance with absolute values may lead to misinterpretation of CBC data. Current Interpretive Data was last revised on 2017. Lymphocyte pct 12.8 % [facility] Comment: Interpretive Data Percent cell count reference ranges are not reported, since discordance with absolute values may lead to misinterpretation of CBC data. Current Interpretive Data was last revised on 2017. Monocyte pct 7.8 % [facility] Comment: Interpretive Data Percent cell count reference ranges are not reported, since discordance with absolute values may lead to misinterpretation of CBC data. Current Interpretive Data was last revised on 2017. Eosinophil pct 3.8 % [facility] Comment: Interpretive Data Percent cell count reference ranges are not reported, since discordance with absolute values may lead to misinterpretation of CBC data. Current Interpretive Data was last revised on 2017. Basophil pct 0.9 % [facility] Comment: Interpretive Data Percent cell count reference ranges are not reported, since discordance with absolute values may lead to misinterpretation of CBC data. Current Interpretive Data was last revised on 2017. Blood 11/26/2024 7:52 PM CDT 11/26/2024 8:01 PM CDT us Baltazar Manzano MD LAB BLOOD ORDERABLES F inal Result [facility] Department [place] [address] * (ABNORMAL) CBC with auto differential (11/26/2024 7:52 PM CDT) WBC 6.40 3.80 - 9.90 K/cumm Hgb 7.7(L) 11.9 - 15.5 g/dL [facility] Hct 25.0(L) 35.6 - 45.5 % [facility] Plt 173 150 - 400 K/cumm [facility] MPV 11.0 9.1 - 12.3 fL [facility] RBC 2.84(L) 3.90 - 5.20 M/cumm [facility] MCV 88.0 81.3 - 96.4 fL [facility] MCH 27.1 27.1 - 33.3 pg [facility] MCHC 30.8(L) 32.3 - 35.7 g/dL [facility] RDW CV 17.0(H) 11.1 - 14.9 % [facility] RDW SD 53.6(H) 35.7 - 48.1 fL [facility] NRBC abs 0.00 0.00 - 0.01 K/cumm [facility] Blood 11/26/2024 7:52 PM CDT 11/26/2024 8:01 PM CDT us Baltazar Manzano MD LAB BLOOD ORDERABLES F inal Result [facility] Department [place] [address] * (ABNORMAL) Basic metabolic panel (11/26/2024 7:52 PM CDT) [facility] Sodium 141 135 - 145 mmol/L Potassium, pl 4.3 3.3 - 4.9 mmol/L [facility] Chloride 107 97 - 110 mmol/L [facility] CO2 25 22 - 32 mmol/L [facility] Anion gap 9 2 - 15 mmol/L [facility] BUN 14 6 - 25 mg/dL [facility] Creatinine 1.75(H) 0.60 - 1.10 mg/dL [facility] Glucose 108 70 - 199 mg/dL [facility] Comment: Interpretive Data Fasting glucose >/= 126 mg/dl is diagnostic for diabetes. Fasting is defined as no caloric intake for at least 8 hours. Fasting glucose between 100 mg/dl to 125 mg/dl is diagnostic of prediabetes. In a patient with classic symptoms of hyperglycemia or hyperglycemic crisis, a random glucose >/= 200 mg/dl is diagnostic for diabetes. In the absence of unequivocal hyperglycemia, results should be confirmed by repeat testing. The classification and Diagnosis of Diabetes Diabetes Care 2021; 46: S19-S40. Current interpretive data was last revised 2022. Calcium 8.4(L) 8.5 - 10.3 mg/dL [facility] Blood 11/26/2024 7:52 PM CDT 11/26/2024 8:02 PM CDT us Baltazar Manzano MD LAB BLOOD ORDERABLES F inal Result Performing Organization Address [facility] de Phone Number [facility] [place] [address] * (ABNORMAL) Protime-INR (11/26/2024 7:52 PM CDT) PT 18.0(H) 9.7 - 13.0 sec INR 1.65(H) 0.90 - 1.20 [facility] Comment: Interpretive data Oral anticoagulant therapeutic ranges: Venous thromboembolism prophylaxis or treatment: 2.0-3.0 CARDIOLOGY Standard range: 2.0-3.0 High-intensity range: 2.5-3.5 Refer to indication-specific guidelines for appropriate target ranges for prosthetic heart valve replacement. Current interpretive data was last revised on 2019. Blood 11/26/2024 7:52 PM CDT 11/26/2024 8:08 PM CDT Kandis Spencer MD LAB BLOOD ORDERABLES Final Resu lt Performing Organization Address [facility] Co de Phone Number [facility] [place] [address] * (ABNORMAL) aPTT (11/26/2024 12:02 PM CDT) aPTT 53(H) 28 - 38 sec Comment: Interpretive Data Heparin therapeutic range: 66.0 - 100.0 seconds. Range based on correlation with therapeutic heparin activity range of 0.3 - 0.7 Units/mL. Current interpretive data was last revised on 2023. Blood 11/26/2024 12:0 2 PM CDT 11/26/2024 12:34 PM CDT Narrative [facility] - 11/26/2024 1:05 PM CDT STAT PTT timing: - Draw 6 hours after heparin infusion initiation - Draw 6 hours after every dose change until 2 consecutive PTTs are therapeutic - Once 2 consecutive PTTs are therapeutic, obtain with daily labs until infusion is discontinued - - Restart every 6 hour lab draws and follow instructions accordingly if PTT is outside of therapeutic range Do not draw lab from IV line that is actively infusing heparin. Use the opposite arm. If arm with actively infusing heparin must be used, pause the infusion for at least 2 minutes, and draw specimen below the IV site. For patients with a central venous catheter (CVC), lab must be drawn peripherally (not from CVC). us Ranulfo Gentile MD LAB BLOOD ORDERABLES Final R esult [facility] [place] [address] * (ABNORMAL) aPTT (11/26/2024 9:28 AM CDT) [facility] aPTT 50(H) 28 - 38 sec Comment: Interpretive Data Heparin therapeutic range: 66.0 - 100.0 seconds. Range based on correlation with therapeutic heparin activity range of 0.3 - 0.7 Units/mL. Current interpretive data was last revised on 2023. Blood 11/26/2024 9:28 AM CDT 11/26/2024 9:52 AM CDT Narrative [facility] - 11/26/2024 10:01 AM CDT STAT PTT timing: - Draw 6 hours after heparin infusion initiation - Draw 6 hours after every dose change until 2 consecutive PTTs are therapeutic - Once 2 consecutive PTTs are therapeutic, obtain with daily labs until infusion is discontinued - - Restart every 6 hour lab draws and follow instructions accordingly if PTT is outside of therapeutic range Do not draw lab from IV line that is actively infusing heparin. Use the opposite arm. If arm with actively infusing heparin must be used, pause the infusion for at least 2 minutes, and draw specimen below the IV site. For patients with a central venous catheter (CVC), lab must be drawn peripherally (not from CVC). us Ranulfo Gentile MD LAB BLOOD ORDERABLES Final R esult [facility] Department [place] [address] * ECG 12 lead (11/26/2024 8:42 AM CDT) Ventricular Rate EKG/Min 69 BPM [facility] Atrial Rate 234 BPM [facility] QRS-Interval (MSEC) 126 ms [facility] QT-Interval (MSEC) 476 ms [facility] QTc 510 ms [facility] R Lutz -36 degrees [facility] T Lutz 138 degrees [facility] Diagnosis Normal sinus rhythm Left axis deviation Non-specific intra-ventricul ar conduction block Inferior infarct , age undetermined Anterolateral infarct , age undetermined Abnormal ECG When compared with ECG of 25-NOV-2024 20:58, (unconfirmed) Non-specific intra-ventricul ar conduction delay has replaced Sinus rhythm Confirmed by MARVIN POMPA M.D ([id number]) on 11/27/2024 1:25:53 PM [facility] 11/26/2024 8:42 AM CDT 11/27/2024 1:25 PM CDT us Baltazar Manzano MD ECG ORDERABLES Final Result [facility] * (ABNORMAL) aPTT (11/26/2024 6:47 AM CDT) aPTT 43(H) 28 - 38 sec Comment: Interpretive Data Heparin therapeutic range: 66.0 - 100.0 seconds. Range based on correlation with therapeutic heparin activity range of 0.3 - 0.7 Units/mL. Current interpretive data was last revised on 2023. Blood 11/26/2024 6:47 AM CDT 11/26/2024 7:03 AM CDT Baltazar Manzano MD LAB BLOOD ORDERABLES F inal Result Performing Organization Address [facility] de Phone Number [facility] [place] [address] * (ABNORMAL) aPTT (11/26/2024 4:03 AM CDT) aPTT 42(H) 28 - 38 sec Comment: Interpretive Data Heparin therapeutic range: 66.0 - 100.0 seconds. Range based on correlation with therapeutic heparin activity range of 0.3 - 0.7 Units/mL. Current interpretive data was last revised on 2023. Blood 11/26/2024 4:03 AM CDT 11/26/2024 4:13 AM CDT Baltazar Manzano MD LAB BLOOD ORDERABLES F inal Result Performing Organization Address [facility] de Phone Number [facility] [place] [address] * (ABNORMAL) Hepatic function panel (11/26/2024 12:42 AM CDT) Bilirubin, total <0.2 0.1 - 1.2 mg/dL Bilirubin, direct <0.2 0.1 - 0.3 mg/dL [facility] Protein, pl 6.7 6.5 - 8.5 g/dL [facility] Albumin 3.3(L) 3.5 - 5.0 g/dL [facility] Alk phos 91 40 - 130 Units/L [facility] ALT 16 7 - 45 Units/L [facility] AST 30 10 - 45 Units/L [facility] Blood 11/26/2024 12:4 2 AM CDT 11/26/2024 12:58 AM CDT Cielo Peg Soler NP LAB BLOOD ORDERABLES F inal Result Performing Organization Address City/[facility]/ZIP Co de Phone Number [facility] [place] [address] * (ABNORMAL) eGFR (11/26/2024 12:42 AM CDT) eGFR 40(L) >=60 mL/min/1. 73 m2 Comment: Interpretive Data Reference Interval Normal >/= 90 mL/min/1.73m2 Mildly decreased* 60 - 89 mL/min/1.73m2 Mildly to moderately decreased 45 - 59 mL/min/1.73m2 Moderately to severely decreased 30 - 44 mL/min/1.73m2 Severely decreased 15 - 29 mL/min/1.73m2 Kidney Failure < 15 mL/min/1.73m2 *Relative to young adult level Estimated glomerular filtration rate is determined by the 2020 CKD-EPI equation recommended by the National Kidney Foundation (A Unifying Approach to GFR Estimation: Recommendations of the NKF-ASK Task Force on Reassessing the Inclusion of Race in Diagnosing Kidney Disease, JASN 2020). The CKD-EPI equation should not be used for patients with unstable renal function and has not been validated in children and those over 70. Current interpretive data was last reviewed 2021. Blood 11/26/2024 12:4 2 AM CDT 11/26/2024 12:58 AM CDT Baltazar Manzano MD LAB BLOOD ORDERABLES F inal Result [facility] Department [place] [address] * (ABNORMAL) Differential, auto (11/26/2024 12:42 AM CDT) Neutrophil abs 6.36 1.50 - 6.50 K/cumm Imm gran abs 0.03 0.00 - 0.10 K/cumm [facility] Lymphocyte abs 0.72(L) 0.80 - 3.30 K/cumm [facility] Monocyte abs 0.45 0.20 - 0.80 K/cumm [facility] Eosinophil abs 0.14 0.00 - 0.50 K/cumm [facility] Basophil abs 0.06 0.00 - 0.10 K/cumm [facility] Neutrophil pct 81.9 % [facility] Comment: Interpretive Data Percent cell count reference ranges are not reported, since discordance with absolute values may lead to misinterpretation of CBC data. Current Interpretive Data was last revised on 2017. Imm gran pct 0.4 % [facility] Comment: Interpretive Data Percent cell count reference ranges are not reported, since discordance with absolute values may lead to misinterpretation of CBC data. Current Interpretive Data was last revised on 2017. Lymphocyte pct 9.3 % [facility] Comment: Interpretive Data Percent cell count reference ranges are not reported, since discordance with absolute values may lead to misinterpretation of CBC data. Current Interpretive Data was last revised on 2017. Monocyte pct 5.8 % [facility] Comment: Interpretive Data Percent cell count reference ranges are not reported, since discordance with absolute values may lead to misinterpretation of CBC data. Current Interpretive Data was last revised on 2017. Eosinophil pct 1.8 % [facility] Comment: Interpretive Data Percent cell count reference ranges are not reported, since discordance with absolute values may lead to misinterpretation of CBC data. Current Interpretive Data was last revised on 2017. Basophil pct 0.8 % [facility] Comment: Interpretive Data Percent cell count reference ranges are not reported, since discordance with absolute values may lead to misinterpretation of CBC data. Current Interpretive Data was last revised on 2017. Blood 11/26/2024 12:4 2 AM CDT 11/26/2024 12:58 AM CDT Baltazar Manzano MD LAB BLOOD ORDERABLES F inal Result [facility] [place] [address] * (ABNORMAL) aPTT (11/26/2024 12:42 AM CDT) aPTT 25(L) 28 - 38 sec Comment: Interpretive Data Heparin therapeutic range: 66.0 - 100.0 seconds. Range based on correlation with therapeutic heparin activity range of 0.3 - 0.7 Units/mL. Current interpretive data was last revised on 2023. Blood 11/26/2024 12:4 2 AM CDT 11/26/2024 1:09 AM CDT Narrative [facility] - 11/26/2024 1:19 AM CDT Baseline prior to bivalirudin initiation. Baltazar Manzano MD LAB BLOOD ORDERABLES F inal Result Performing Organization Address [facility] de Phone Number [facility] [place] [address] * (ABNORMAL) Protime-INR (11/26/2024 12:42 AM CDT) PT 13.1(H) 9.7 - 13.0 sec INR 1.21(H) 0.90 - 1.20 [facility] Comment: Interpretive data Oral anticoagulant therapeutic ranges: Venous thromboembolism prophylaxis or treatment: 2.0-3.0 CARDIOLOGY Standard range: 2.0-3.0 High-intensity range: 2.5-3.5 Refer to indication-specific guidelines for appropriate target ranges for prosthetic heart valve replacement. Current interpretive data was last revised on 2019. Blood 11/26/2024 12:4 2 AM CDT 11/26/2024 1:09 AM CDT [facility] 11/26/2024 1:19 AM CDT Baseline prior to bivalirudin initiation. Baltazar Manzano MD LAB BLOOD ORDERABLES F inal Result Performing Organization Address [facility] de Phone Number [facility] Department [place] [address] * (ABNORMAL) CBC with auto differential (11/26/2024 12:42 AM CDT) [facility] WBC 7.76 3.80 - 9.90 K/cumm Hgb 8.2(L) 11.9 - 15.5 g/dL [facility] Hct 26.7(L) 35.6 - 45.5 % [facility] Plt 162 150 - 400 K/cumm [facility] MPV 11.2 9.1 - 12.3 fL [facility] RBC 3.04(L) 3.90 - 5.20 M/cumm [facility] MCV 87.8 81.3 - 96.4 fL [facility] MCH 27.0(L) 27.1 - 33.3 pg [facility] MCHC 30.7(L) 32.3 - 35.7 g/dL [facility] RDW CV 16.7(H) 11.1 - 14.9 % [facility] RDW SD 53.0(H) 35.7 - 48.1 fL [facility] NRBC abs 0.00 0.00 - 0.01 K/cumm [facility] Blood 11/26/2024 12:4 2 AM CDT 11/26/2024 12:58 AM CDT Baltazar Manzano MD LAB BLOOD ORDERABLES F inal Result [facility] Department [place] [address] * (ABNORMAL) Basic metabolic panel (11/26/2024 12:42 AM CDT) [facility] Sodium 142 135 - 145 mmol/L Potassium, pl 4.3 3.3 - 4.9 mmol/L [facility] Chloride 110 97 - 110 mmol/L [facility] CO2 23 22 - 32 mmol/L [facility] Anion gap 9 2 - 15 mmol/L [facility] BUN 10 6 - 25 mg/dL [facility] Creatinine 1.43(H) 0.60 - 1.10 mg/dL [facility] Glucose 70 70 - 199 mg/dL [facility] Comment: Interpretive Data Fasting glucose >/= 126 mg/dl is diagnostic for diabetes. Fasting is defined as no caloric intake for at least 8 hours. Fasting glucose between 100 mg/dl to 125 mg/dl is diagnostic of prediabetes. In a patient with classic symptoms of hyperglycemia or hyperglycemic crisis, a random glucose >/= 200 mg/dl is diagnostic for diabetes. In the absence of unequivocal hyperglycemia, results should be confirmed by repeat testing. The classification and Diagnosis of Diabetes Diabetes Care 2021; 46: S19-S40. Current interpretive data was last revised 2022. Calcium 8.6 8.5 - 10.3 mg/dL [facility] Blood 11/26/2024 12:4 2 AM CDT 11/26/2024 12:58 AM CDT Baltazar Manzano MD LAB BLOOD ORDERABLES F inal Result [facility] Department [place] [address] * (ABNORMAL) eGFR (11/25/2024 9:52 PM CDT) eGFR 49(L) >=60 mL/min/1. 73 m2 Comment: Interpretive Data Reference Interval Normal >/= 90 mL/min/1.73m2 Mildly decreased* 60 - 89 mL/min/1.73m2 Mildly to moderately decreased 45 - 59 mL/min/1.73m2 Moderately to severely decreased 30 - 44 mL/min/1.73m2 Severely decreased 15 - 29 mL/min/1.73m2 Kidney Failure < 15 mL/min/1.73m2 *Relative to young adult level Estimated glomerular filtration rate is determined by the 2020 CKD-EPI equation recommended by the National Kidney Foundation (A Unifying Approach to GFR Estimation: Recommendations of the NKF-ASK Task Force on Reassessing the Inclusion of Race in Diagnosing Kidney Disease, JASN 2020). The CKD-EPI equation should not be used for patients with unstable renal function and has not been validated in children and those over 70. Current interpretive data was last reviewed 2021. Blood 11/25/2024 9:52 PM CDT 11/25/2024 10:09 PM CDT Topher Andrade MD LAB BLOOD ORDERABL ES Final Result Performing Organization Address City/[facility]/ZIP Co de Phone Number [facility] [place] [address] * Phosphorus (11/25/2024 9:52 PM CDT) Phosphorus, pl 3.2 2.3 - 4.5 mg/dL Blood 11/25/2024 9:52 PM CDT 11/25/2024 10:09 PM CDT Topher Andrade MD LAB BLOOD ORDERABL ES Final Result Performing Organization Address [facility] Co de Phone Number [facility] [address] * Magnesium (11/25/2024 9:52 PM CDT) Magnesium 2.0 1.4 - 2.5 mg/dL Blood 11/25/2024 9:52 PM CDT 11/25/2024 10:09 PM CDT Topher Andrade MD LAB BLOOD ORDERABL ES Final Result Performing Organization Address City/[facility] [place] [address] * (ABNORMAL) Basic metabolic panel (11/25/2024 9:52 PM CDT) Sodium 145 135 - 145 mmol/L Potassium, pl 3.9 3.3 - 4.9 mmol/L [facility] Chloride 114(H) 97 - 110 mmol/L [facility] CO2 21(L) 22 - 32 mmol/L [facility] Anion gap 10 2 - 15 mmol/L [facility] BUN 9 6 - 25 mg/dL [facility] Creatinine 1.22(H) 0.60 - 1.10 mg/dL [facility] Glucose 74 70 - 199 mg/dL [facility] Comment: Interpretive Data Fasting glucose >/= 126 mg/dl is diagnostic for diabetes. Fasting is defined as no caloric intake for at least 8 hours. Fasting glucose between 100 mg/dl to 125 mg/dl is diagnostic of prediabetes. In a patient with classic symptoms of hyperglycemia or hyperglycemic crisis, a random glucose >/= 200 mg/dl is diagnostic for diabetes. In the absence of unequivocal hyperglycemia, results should be confirmed by repeat testing. The classification and Diagnosis of Diabetes Diabetes Care 2021; 46: S19-S40. Current interpretive data was last revised 2022. Calcium 8.0(L) 8.5 - 10.3 mg/dL [facility] Blood 11/25/2024 9:52 PM CDT 11/25/2024 10:09 PM CDT us Topher Andrade MD LAB BLOOD ORDERABL ES Final Result [facility] Department [place] [address] * ECG 12 lead (11/25/2024 8:58 PM CDT) Ventricular Rate EKG/Min 92 BPM [facility] Atrial Rate 92 BPM [facility] UT-Interval (MSEC) 176 ms [facility] QRS-Interval (MSEC) 130 ms [facility] QT-Interval (MSEC) 428 ms [facility] QTc 529 ms [facility] P Lutz 35 degrees [facility] R Lutz -37 degrees [facility] T Lutz 136 degrees [facility] Diagnosis Sinus rhythm with occasional Premature ventricular complexes Left axis deviation Non-specific intra-ventricula r conduction block Inferior infarct , age undetermined Anterolateral infarct (cited on or before 14-NOV-2024) Abnormal ECG When compared with ECG of 14-NOV-2024 11:12, (unconfirmed) Sinus rhythm has replaced Electronic atrial pacemaker Questionable change in QRS duration Inferior infarct is now Present Questionable change in initial forces of Anterolateral leads Confirmed by MARVIN POMPA M.D ([id number]) on 11/27/2024 1:24:41 PM [facility] 11/25/2024 8:58 PM CDT 11/27/2024 1:24 PM CDT us Topher Andrade MD ECG ORDERABLES Fi nal Result [facility] * [place] Fluoroscopy < 1 Hour (11/25/2024 8:47 PM CDT) Narrative [facility] - 11/25/2024 8:48 PM CDT The images from this study are not interpreted by Radiology. Please refer to the physician's procedure / OR operative note. us Milad Rg MD IMG FLUOROSCOPY PROCEDURES Fi nal Result Performing Organization Address [facility]/ZIP Co de Phone Number [email or web address] * Aerobic culture and gram stain Hardware Heart (11/25/2024 8:28 PM CDT) Direct Specimen Exam Stain: No polymorphonuclear leukocytes seen. No organisms seen. Report Final Report: No growth [facility] Hardware (Heart) 11/25/2024 8:28 PM CDT 11/25/2024 9:40 PM CDT Narrative [facility] - 12/01/2024 12:14 PM CDT LV lead Specimen collected in the operating room. Testing performed by [facility] ([phone]) Specimens submitted from normally sterile body sites will have all bacterial morphotypes identified. Specimens that contain grossly mixed jose and/or are from body sites that are not normally sterile will be examined for Staphylococcus aureus, Pseudomonas aeruginosa, beta-hemolytic strep, vancomycin-resistant Enterococcus and fungus. If any of these are isolated, the organism will be reported. Current interpretive data was last revised on 2016. Baltazar Manzano MD LAB MICROBIOLOGY - GEN ERAL ORDERABLES Final Result Performing Organization Address City/[facility]/ZIP Co de Phone Number [facility] [place] [address] * (ABNORMAL) POC Blood Gas and Chemistries, Arterial - (11/25/2024 8:27 PM CDT) pH, Art POC 7.33(L) 7.35 - 7.45 pCO2, Art POC 40 35 - 45 mmHg [facility] pO2, Art POC 168(H) 83 - 108 mmHg [facility] Na, POC 141 135 - 145 mmol/L [facility] K POC 4.0 3.3 - 4.9 mmol/L [facility] Comment: Interpretive Data Not all point of care methods assess for hemolysis. Confirm with instrument and retest K+ if not consistent with clinical signs and symptoms. Current Interpretive Data was last revised on 2023. Cl, POC 114(H) 97 - 110 mmol/L [facility] Ionized Ca, POC 4.78 4.50 - 5.10 mg/dL [facility] Glucose, POC 83 70 - 199 mg/dL [facility] Lactate POC 0.7 0.7 - 2.0 mmol/L [facility] SO2 (satya) arterial 100(H) 90 - 95 % [facility] Base excess, POC -4.5 mmol/L [facility] HCO3, Art POC 21 20 - 30 mmol/L [facility] Hct, POC 26.0(L) 36.3 - 45.3 % [facility] Total Hb, POC 8.5(L) 11.9 - 15.5 g/dL [facility] Blood 11/25/2024 8:27 PM CDT 11/25/2024 8:27 PM CDT Baltazar Manzano MD LAB POCT ORDERABLES - DEVICE Final Result Performing Organization Address City/[facility]/ZIP Co de Phone Number [facility]NA RIB[facility] [address] * Aerobic culture and gram stain Hardware Heart (11/25/2024 8:17 PM CDT) Direct Specimen Exam Stain: Rare polymorphonuclear leukocytes seen. No organisms seen. Report Final Report: No growth [facility] Hardware (Heart) 11/25/2024 8:17 PM CDT 11/25/2024 9:50 PM CDT Narrative [facility] - 12/01/2024 12:13 PM CDT Ventricular lead right Specimen collected in the operating room. Testing performed by [facility] ([phone]) Specimens submitted from normally sterile body sites will have all bacterial morphotypes identified. Specimens that contain grossly mixed jose and/or are from body sites that are not normally sterile will be examined for Staphylococcus aureus, Pseudomonas aeruginosa, beta-hemolytic strep, vancomycin-resistant Enterococcus and fungus. If any of these are isolated, the organism will be reported. Current interpretive data was last revised on 2016. Milad Rg MD LAB MICROBIOLOGY - GENERAL OR DERABLES Final Result [facility] [place] [address] * Aerobic culture and gram stain Hardware Heart (11/25/2024 8:13 PM CDT) Direct Specimen Exam Stain: Rare polymorphonuclear leukocytes seen. No organisms seen. Report Final Report: No growth [facility] Hardware (Heart) 11/25/2024 8:13 PM CDT 11/25/2024 9:45 PM CDT Narrative [facility] - 12/01/2024 12:14 PM CDT Atrial lead Specimen collected in the operating room. Testing performed by [facility] ([phone]) Specimens submitted from normally sterile body sites will have all bacterial morphotypes identified. Specimens that contain grossly mixed jose and/or are from body sites that are not normally sterile will be examined for Staphylococcus aureus, Pseudomonas aeruginosa, beta-hemolytic strep, vancomycin-resistant Enterococcus and fungus. If any of these are isolated, the organism will be reported. Current interpretive data was last revised on 2016. Milad Rg MD LAB MICROBIOLOGY - GENERAL OR DERABLES Final Result Performing Organization Address [facility] de Phone Number [facility] [place] [address] * Aerobic culture and gram stain Hardware Heart (11/25/2024 8:09 PM CDT) Direct Specimen Exam Stain: No polymorphonuclear leukocytes seen. No organisms seen. Report Final Report: No growth [facility] Hardware (Heart) 11/25/2024 8:09 PM CDT 11/25/2024 9:48 PM CDT Narrative [facility] - 12/01/2024 12:13 PM CDT Generator device Specimen collected in the operating room. Testing performed by [facility] ([phone]) Specimens submitted from normally sterile body sites will have all bacterial morphotypes identified. Specimens that contain grossly mixed jose and/or are from body sites that are not normally sterile will be examined for Staphylococcus aureus, Pseudomonas aeruginosa, beta-hemolytic strep, vancomycin-resistant Enterococcus and fungus. If any of these are isolated, the organism will be reported. Current interpretive data was last revised on 2016. Milad Rg MD LAB MICROBIOLOGY - GENERAL OR DERABLES Final Result Performing Organization Address [facility] de Phone Number [facility] [place] [address] * NEVAEH Add-On For OR (11/25/2024 6:37 PM CDT) BSA 1.66 m2 [facility] PROSOLV_CARDIORE PORT_CONS SCIMAGE Narrative [facility] PROSOLV_CARDIOREPORT_CONS SCIMAGE - 11/25/2024 6:37 PM CDT Procedure Auto Finalized by Rule: BW CV NEVAEH DURING CASE OR Please see the Anesthesiologist's Procedure Note for the results. us Shai Spencer MD CV ECHO PROCEDURES Mirtha aquino Result [facility] PROSOLV_CARDIOREPORT_CONS SCIMAGE * Differential, auto (11/25/2024 12:46 PM CDT) Neutrophil abs 2.66 1.50 - 6.50 K/cumm Imm gran abs 0.02 0.00 - 0.10 K/cumm [facility] Lymphocyte abs 0.87 0.80 - 3.30 K/cumm [facility] Monocyte abs 0.27 0.20 - 0.80 K/cumm [facility] Eosinophil abs 0.16 0.00 - 0.50 K/cumm [facility] Basophil abs 0.05 0.00 - 0.10 K/cumm [facility] Neutrophil pct 66.0 % [facility] Comment: Interpretive Data Percent cell count reference ranges are not reported, since discordance with absolute values may lead to misinterpretation of CBC data. Current Interpretive Data was last revised on 2017. Imm gran pct 0.5 % [facility] Comment: Interpretive Data Percent cell count reference ranges are not reported, since discordance with absolute values may lead to misinterpretation of CBC data. Current Interpretive Data was last revised on 2017. Lymphocyte pct 21.6 % [facility] Comment: Interpretive Data Percent cell count reference ranges are not reported, since discordance with absolute values may lead to misinterpretation of CBC data. Current Interpretive Data was last revised on 2017. Monocyte pct 6.7 % [facility] Comment: Interpretive Data Percent cell count reference ranges are not reported, since discordance with absolute values may lead to misinterpretation of CBC data. Current Interpretive Data was last revised on 2017. Eosinophil pct 4.0 % [facility] Comment: Interpretive Data Percent cell count reference ranges are not reported, since discordance with absolute values may lead to misinterpretation of CBC data. Current Interpretive Data was last revised on 2017. Basophil pct 1.2 % [facility] Comment: Interpretive Data Percent cell count reference ranges are not reported, since discordance with absolute values may lead to misinterpretation of CBC data. Current Interpretive Data was last revised on 2017. Blood 11/25/2024 12:4 6 PM CDT 11/25/2024 1:15 PM CDT Baltazar Manzano MD LAB BLOOD ORDERABLES F inal Result Performing Organization Address [facility] Co de Phone Number [facility] Department [place] [address] * (ABNORMAL) CBC with auto differential (11/25/2024 12:46 PM CDT) WBC 4.03 3.80 - 9.90 K/cumm Hgb 8.3(L) 11.9 - 15.5 g/dL [facility] Hct 26.0(L) 35.6 - 45.5 % [facility] Plt 136(L) 150 - 400 K/cumm [facility] MPV 11.0 9.1 - 12.3 fL [facility] RBC 3.01(L) 3.90 - 5.20 M/cumm [facility] MCV 86.4 81.3 - 96.4 fL [facility] MCH 27.6 27.1 - 33.3 pg [facility] MCHC 31.9(L) 32.3 - 35.7 g/dL [facility] RDW CV 16.4(H) 11.1 - 14.9 % [facility] RDW SD 50.4(H) 35.7 - 48.1 fL [facility] NRBC abs 0.00 0.00 - 0.01 K/cumm [facility] Blood 11/25/2024 12:4 6 PM CDT 11/25/2024 1:15 PM CDT Baltazar Manzano MD LAB BLOOD ORDERABLES F inal Result Performing Organization Address [facility]/ZIP Co de Phone Number [facility] [place] [address] * Transfuse RBC (11/25/2024 12:15 PM CDT) Blood Baltazar Manzano MD BLOOD TRANSFUSION ORDE RABMERLY Final Result JULIANA RIBERA [facility] Department [place] [address] * Transfuse RBC: 1 Units (11/25/2024 12:15 PM CDT) Blood Baltazar Manzano MD BLOOD TRANSFUSION ORDE EULA Final Result * Serotonin release assay (11/25/2024 8:09 AM CDT) MELODY low dose heparin 2 % MELODY high dose heparin 2 % JULIANA RIBERA MELODY Negative JULIANA RIBERA MELODY interpretation A positive result requires release of serotonin from target platelets in the presence of patient serum and low dose (0.1 U/ml) heparin of > 20%, together with inhibition of release (< 20%) with high dose (100 U/ml) heparin. Results obtained with this patient's serum were negative. These results argue against, but do not completely rule out a diagnosis of Heparin-Induced Thrombocytopenia (HIT). If not already performed, repeat testing of a fresh serum sample collected 24-48 hours after collection of the current sample should be considered. This test was developed and its performance characteristics determined by [employer]. It has not been cleared or approved by the [place] Food and Drug Administration. This test is used for clinical purposes. It should not be regarded as investigational or for research. This laboratory is certified under the Clinical Laboratory Improvement Amendments (CLIA) as qualified to perform high complexity clinical laboratory testing. JULIANA MCCALL Comment:Performed by: [employer]. [address] [place] [id number] Blood 11/25/2024 8:09 AM CDT 11/25/2024 8:22 AM CDT Narrative JULIANA MCCALL - 11/28/2024 3:40 PM CDT HIT antibody screen positive. Confirmatory testing by Serotonin Release sent to Blood [facility]. Baltazar Manzano MD LAB BLOOD ORDERABLES F inal Result Performing Organization Address City/[facility]/ZIP Co de Phone Number JULIANA [facility] Department [place] [address] * (ABNORMAL) aPTT (11/25/2024 8:09 AM CDT) [facility] aPTT 92(H) 28 - 38 sec Comment: Interpretive Data Heparin therapeutic range: 66.0 - 100.0 seconds. Range based on correlation with therapeutic heparin activity range of 0.3 - 0.7 Units/mL. Current interpretive data was last revised on 2023. Blood 11/25/2024 8:09 AM CDT 11/25/2024 8:23 AM CDT Narrative JULIANA [facility] - 11/25/2024 8:52 AM CDT STAT PTT timing: - Draw 6 hours after heparin infusion initiation - Draw 6 hours after every dose change until 2 consecutive PTTs are therapeutic - Once 2 consecutive PTTs are therapeutic, obtain with daily labs until infusion is discontinued - - Restart every 6 hour lab draws and follow instructions accordingly if PTT is outside of therapeutic range Do not draw lab from IV line that is actively infusing heparin. Use the opposite arm. If arm with actively infusing heparin must be used, pause the infusion for at least 2 minutes, and draw specimen below the IV site. For patients with a central venous catheter (CVC), lab must be drawn peripherally (not from CVC). us Ranulfo Gentile MD LAB BLOOD ORDERABLES Final R esult Performing Organization Address City/[facility]/ZIP Co de Phone Number [facility] [place] [address] * (ABNORMAL) HIT Antibodies with Reflex to Serotonin Release Assay (MELODY) (11/25/2024 8:09 AM CDT) [facility] HIT antibodies Positive HIT Ab EDNA Units 2.85(H) 0.00 - 0.99 units/mL [facility] Comment: A positive HIT Ab (heparin PF4 antibody EDNA test) is extremely sensitive for heparin-induced thrombocytopenia (HIT), but not specific, since many patients exposed to heparin have positive antibody tests without developing HIT. Higher HIT Ab EDNA Units are associated with a higher likelihood of a positive serotonin release assay (MELODY) and a clinical course consistent with HIT. The 4T scoring system is a useful tool for pretest probability of HIT (Cuker et al, Blood 2012;120:4160). Both laboratory testing and clinical risk evaluation should be considered in determining an individual patient s risk of HIT. Blood 11/25/2024 8:09 AM CDT 11/25/2024 8:22 AM CDT Baltazar Manzano MD LAB BLOOD ORDERABLES F inal Result Performing Organization Address [facility] de Phone Number [facility] [place] [address] * (ABNORMAL) aPTT (11/24/2024 9:19 PM CDT) aPTT 63(H) 28 - 38 sec Comment: Interpretive Data Heparin therapeutic range: 66.0 - 100.0 seconds. Range based on correlation with therapeutic heparin activity range of 0.3 - 0.7 Units/mL. Current interpretive data was last revised on 2023. Blood 11/24/2024 9:19 PM CDT 11/24/2024 10:43 PM CDT Baltazar Manzano MD LAB BLOOD ORDERABLES F inal Result Performing Organization Address [facility] de Phone Number [facility] [address] * (ABNORMAL) eGFR (11/24/2024 9:19 PM CDT) Pathologist [facility] eGFR 42(L) >=60 mL/min/1. 73 m2 Comment: Interpretive Data Reference Interval Normal >/= 90 mL/min/1.73m2 Mildly decreased* 60 - 89 mL/min/1.73m2 Mildly to moderately decreased 45 - 59 mL/min/1.73m2 Moderately to severely decreased 30 - 44 mL/min/1.73m2 Severely decreased 15 - 29 mL/min/1.73m2 Kidney Failure < 15 mL/min/1.73m2 *Relative to young adult level Estimated glomerular filtration rate is determined by the 2020 CKD-EPI equation recommended by the National Kidney Foundation (A Unifying Approach to GFR Estimation: Recommendations of the NKF-ASK Task Force on Reassessing the Inclusion of Race in Diagnosing Kidney Disease, JASN 2020). The CKD-EPI equation should not be used for patients with unstable renal function and has not been validated in children and those over 70. Current interpretive data was last reviewed 2021. Blood 11/24/2024 9:19 PM CDT 11/24/2024 10:40 PM CDT Baltazar Manzano MD LAB BLOOD ORDERABLES F inal Result [facility] Department [place] [address] * Differential, auto (11/24/2024 9:19 PM CDT) Neutrophil abs 2.81 1.50 - 6.50 K/cumm Imm gran abs 0.01 0.00 - 0.10 K/cumm [facility] Lymphocyte abs 1.04 0.80 - 3.30 K/cumm [facility] Monocyte abs 0.34 0.20 - 0.80 K/cumm [facility] Eosinophil abs 0.14 0.00 - 0.50 K/cumm [facility] Basophil abs 0.04 0.00 - 0.10 K/cumm [facility] Neutrophil pct 64.2 % [facility] Comment: Interpretive Data Percent cell count reference ranges are not reported, since discordance with absolute values may lead to misinterpretation of CBC data. Current Interpretive Data was last revised on 2017. Imm gran pct 0.2 % [facility] Comment: Interpretive Data Percent cell count reference ranges are not reported, since discordance with absolute values may lead to misinterpretation of CBC data. Current Interpretive Data was last revised on 2017. Lymphocyte pct 23.7 % [facility] Comment: Interpretive Data Percent cell count reference ranges are not reported, since discordance with absolute values may lead to misinterpretation of CBC data. Current Interpretive Data was last revised on 2017. Monocyte pct 7.8 % [facility] Comment: Interpretive Data Percent cell count reference ranges are not reported, since discordance with absolute values may lead to misinterpretation of CBC data. Current Interpretive Data was last revised on 2017. Eosinophil pct 3.2 % [facility] Comment: Interpretive Data Percent cell count reference ranges are not reported, since discordance with absolute values may lead to misinterpretation of CBC data. Current Interpretive Data was last revised on 2017. Basophil pct 0.9 % [facility] Comment: Interpretive Data Percent cell count reference ranges are not reported, since discordance with absolute values may lead to misinterpretation of CBC data. Current Interpretive Data was last revised on 2017. Blood 11/24/2024 9:19 PM CDT 11/24/2024 10:42 PM CDT Baltazar Manzano MD LAB BLOOD ORDERABLES F inal Result Performing Organization Address [facility] Co de Phone Number [facility] [place] [address] * Magnesium (11/24/2024 9:19 PM CDT) Magnesium 2.1 1.4 - 2.5 mg/dL Blood 11/24/2024 9:19 PM CDT 11/24/2024 10:40 PM CDT Baltazar Manzano MD LAB BLOOD ORDERABLES F inal Result Performing Organization Address [facility]/ZIP Co de Phone Number [facility] [place] [address] * (ABNORMAL) CBC with auto differential (11/24/2024 9:19 PM CDT) [facility] WBC 4.38 3.80 - 9.90 K/cumm Hgb 6.6(L) 11.9 - 15.5 g/dL [facility] Hct 21.7(L) 35.6 - 45.5 % [facility] Plt 142(L) 150 - 400 K/cumm [facility] MPV 11.4 9.1 - 12.3 fL [facility] RBC 2.46(L) 3.90 - 5.20 M/cumm [facility] MCV 88.2 81.3 - 96.4 fL [facility] MCH 26.8(L) 27.1 - 33.3 pg [facility] MCHC 30.4(L) 32.3 - 35.7 g/dL [facility] RDW CV 16.4(H) 11.1 - 14.9 % [facility] RDW SD 52.0(H) 35.7 - 48.1 fL [facility] NRBC abs 0.00 0.00 - 0.01 K/cumm [facility] Blood 11/24/2024 9:19 PM CDT 11/24/2024 10:42 PM CDT us Baltazar Manzano MD LAB BLOOD ORDERABLES F inal Result [facility] Department [place] [address] * (ABNORMAL) Basic metabolic panel (11/24/2024 9:19 PM CDT) [facility] Sodium 141 135 - 145 mmol/L Potassium, pl 3.6 3.3 - 4.9 mmol/L [facility] Chloride 106 97 - 110 mmol/L [facility] CO2 26 22 - 32 mmol/L [facility] Anion gap 9 2 - 15 mmol/L [facility] BUN 13 6 - 25 mg/dL [facility] Creatinine 1.38(H) 0.60 - 1.10 mg/dL [facility] Glucose 112 70 - 199 mg/dL [facility] Comment: Interpretive Data Fasting glucose >/= 126 mg/dl is diagnostic for diabetes. Fasting is defined as no caloric intake for at least 8 hours. Fasting glucose between 100 mg/dl to 125 mg/dl is diagnostic of prediabetes. In a patient with classic symptoms of hyperglycemia or hyperglycemic crisis, a random glucose >/= 200 mg/dl is diagnostic for diabetes. In the absence of unequivocal hyperglycemia, results should be confirmed by repeat testing. The classification and Diagnosis of Diabetes Diabetes Care 202; 46: S19-S40. Current interpretive data was last revised 2022. Calcium 8.5 8.5 - 10.3 mg/dL [facility] Blood 11/24/2024 9:19 PM CDT 11/24/2024 10:40 PM CDT Baltazar Manzano MD LAB BLOOD ORDERABLES F inal Result Performing Organization Address [facility] de Phone Number [facility] [employer] [address] * (ABNORMAL) Protime-INR (11/24/2024 9:19 PM CDT) PT 13.5(H) 9.7 - 13.0 sec INR 1.24(H) 0.90 - 1.20 [facility] Comment: Interpretive data Oral anticoagulant therapeutic ranges: Venous thromboembolism prophylaxis or treatment: 2.0-3.0 CARDIOLOGY Standard range: 2.0-3.0 High-intensity range: 2.5-3.5 Refer to indication-specific guidelines for appropriate target ranges for prosthetic heart valve replacement. Current interpretive data was last revised on 2019. Blood 11/24/2024 9:19 PM CDT 11/24/2024 10:43 PM CDT Kandis Spencer MD LAB BLOOD ORDERABLES Final Resu lt Performing Organization Address [facility] Co de Phone Number [facility] [place] [address] * Check Sample (11/24/2024 12:21 PM CDT) ABO Rh A Positive [facility] HCLL OTHER 11/24/2024 12:2 1 PM CDT 11/24/2024 12:58 PM CDT Baltazar Manzano MD LAB BLOOD ORDERABLES F inal Result Performing Organization Address [facility] de Phone Number [facility] [place] [address] [facility] * Type and screen (11/24/2024 10:53 AM CDT) ABO Rh A Positive Man, indirect Negative [facility] Blood 11/24/2024 10:5 3 AM CDT 11/24/2024 11:05 AM CDT Narrative [facility] - 11/24/2024 11:55 AM CDT Has the patient had Daratumumab or Isatuximab in the past 6 months?->Unknown Baltazar Manzano MD LAB BLOOD BANK TEST OR DERABLES Final Result Performing Organization Address [facility] de Phone Number [facility] [place] [address] * Prepare RBC: 1 Units (11/24/2024 10:20 AM CDT) Product code [id number] Unit Number [id number] [facility] Product Blood Type ANEG [facility] Dispense Status PRESUMED TRANSFUSED [facility] Blood 11/24/2024 10:2 0 AM CDT 11/24/2024 10:19 AM CDT Narrative [facility] - 11/26/2024 12:56 AM CDT Specify Procedure:->pacemaker removal and HB 7.2, patinet on heparin drip Are special requirements needed? (All products are leukoreduced and CMV- safe)- >No Date required:-[id number] [facility] # of [id number] Reasons:-Hold for procedure (specify procedure)} Baltazar Manzano MD BLOOD BANK PRODUCT ORD ERABLES Final Result Performing Organization Address [facility] Co de Phone Number [facility] [place] [address] * (ABNORMAL) eGFR (11/23/2024 9:58 PM CDT) eGFR 36(L) >=60 mL/min/1. 73 m2 Comment: Interpretive Data Reference Interval Normal >/= 90 mL/min/1.73m2 Mildly decreased* 60 - 89 mL/min/1.73m2 Mildly to moderately decreased 45 - 59 mL/min/1.73m2 Moderately to severely decreased 30 - 44 mL/min/1.73m2 Severely decreased 15 - 29 mL/min/1.73m2 Kidney Failure < 15 mL/min/1.73m2 *Relative to young adult level Estimated glomerular filtration rate is determined by the 2020 CKD-EPI equation recommended by the National Kidney Foundation (A Unifying Approach to GFR Estimation: Recommendations of the NKF-ASK Task Force on Reassessing the Inclusion of Race in Diagnosing Kidney Disease, JASN 2020). The CKD-EPI equation should not be used for patients with unstable renal function and has not been validated in children and those over 70. Current interpretive data was last reviewed 2021. Blood 11/23/2024 9:58 PM CDT 11/23/2024 10:26 PM CDT Baltazar Manzano MD LAB BLOOD ORDERABLES F inal Result Performing Organization Address City/[facility]/ZIP Co de Phone Number [facility] [place] [address] * (ABNORMAL) Protime-INR (11/23/2024 9:58 PM CDT) PT 13.5(H) 9.7 - 13.0 sec INR 1.24(H) 0.90 - 1.20 [facility] Comment: Interpretive data Oral anticoagulant therapeutic ranges: Venous thromboembolism prophylaxis or treatment: 2.0-3.0 CARDIOLOGY Standard range: 2.0-3.0 High-intensity range: 2.5-3.5 Refer to indication-specific guidelines for appropriate target ranges for prosthetic heart valve replacement. Current interpretive data was last revised on 2019. Blood 11/23/2024 9:58 PM CDT 11/23/2024 10:20 PM CDT Baltazar Manzano MD LAB BLOOD ORDERABLES F inal Result Performing Organization Address [facility] Co de Phone Number [facility] [address] * (ABNORMAL) aPTT (11/23/2024 9:58 PM CDT) Pathologist [facility] aPTT 73(H) 28 - 38 sec Comment: Interpretive Data Heparin therapeutic range: 66.0 - 100.0 seconds. Range based on correlation with therapeutic heparin activity range of 0.3 - 0.7 Units/mL. Current interpretive data was last revised on 2023. Blood 11/23/2024 9:58 PM CDT 11/23/2024 10:20 PM CDT Baltazar Manzano MD LAB BLOOD ORDERABLES F inal Result Performing Organization Address [facility] Co de Phone Number [facility] [place] [address] * Differential, auto (11/23/2024 9:58 PM CDT) Neutrophil abs 3.71 1.50 - 6.50 K/cumm Imm gran abs 0.01 0.00 - 0.10 K/cumm [facility] Lymphocyte abs 1.20 0.80 - 3.30 K/cumm [facility] Monocyte abs 0.35 0.20 - 0.80 K/cumm [facility] Eosinophil abs 0.19 0.00 - 0.50 K/cumm [facility] Basophil abs 0.04 0.00 - 0.10 K/cumm [facility] Neutrophil pct 67.4 % [facility] Comment: Interpretive Data Percent cell count reference ranges are not reported, since discordance with absolute values may lead to misinterpretation of CBC data. Current Interpretive Data was last revised on 2017. Imm gran pct 0.2 % [facility] Comment: Interpretive Data Percent cell count reference ranges are not reported, since discordance with absolute values may lead to misinterpretation of CBC data. Current Interpretive Data was last revised on 2017. Lymphocyte pct 21.8 % [facility] Comment: Interpretive Data Percent cell count reference ranges are not reported, since discordance with absolute values may lead to misinterpretation of CBC data. Current Interpretive Data was last revised on 2017. Monocyte pct 6.4 % [facility] Comment: Interpretive Data Percent cell count reference ranges are not reported, since discordance with absolute values may lead to misinterpretation of CBC data. Current Interpretive Data was last revised on 2017. Eosinophil pct 3.5 % [facility] Comment: Interpretive Data Percent cell count reference ranges are not reported, since discordance with absolute values may lead to misinterpretation of CBC data. Current Interpretive Data was last revised on 2017. Basophil pct 0.7 % [facility] Comment: Interpretive Data Percent cell count reference ranges are not reported, since discordance with absolute values may lead to misinterpretation of CBC data. Current Interpretive Data was last revised on 2017. Blood 11/23/2024 9:58 PM CDT 11/23/2024 10:25 PM CDT us Baltazar Manzano MD LAB BLOOD ORDERABLES F inal Result JUL[facility]NA [facility] Department [place] [address] * Magnesium (11/23/2024 9:58 PM CDT) Magnesium 2.2 1.4 - 2.5 mg/dL Blood 11/23/2024 9:58 PM CDT 11/23/2024 10:26 PM CDT Baltazar Manzano MD LAB BLOOD ORDERABLES F inal Result Performing Organization Address [facility] de Phone Number [facility] [place] [address] * (ABNORMAL) CBC with auto differential (11/23/2024 9:58 PM CDT) Pathologist [facility] WBC 5.50 3.80 - 9.90 K/cumm Hgb 7.2(L) 11.9 - 15.5 g/dL [facility] Hct 23.5(L) 35.6 - 45.5 % [facility] Plt 170 150 - 400 K/cumm [facility] MPV 11.6 9.1 - 12.3 fL [facility] RBC 2.67(L) 3.90 - 5.20 M/cumm [facility] MCV 88.0 81.3 - 96.4 fL [facility] MCH 27.0(L) 27.1 - 33.3 pg [facility] MCHC 30.6(L) 32.3 - 35.7 g/dL [facility] RDW CV 16.1(H) 11.1 - 14.9 % [facility] RDW SD 50.2(H) 35.7 - 48.1 fL [facility] NRBC abs 0.00 0.00 - 0.01 K/cumm [facility] Blood 11/23/2024 9:58 PM CDT 11/23/2024 10:25 PM CDT Baltazar Manzano MD LAB BLOOD ORDERABLES F inal Result Performing Organization Address City/[facility] Co de Phone Number [facility] [place], [place] [id number] * (ABNORMAL) Basic metabolic panel (11/23/2024 9:58 PM CDT) Pathologist [facility] Sodium 141 135 - 145 mmol/L Potassium, pl 4.0 3.3 - 4.9 mmol/L [facility] Chloride 106 97 - 110 mmol/L [facility] CO2 25 22 - 32 mmol/L [facility] Anion gap 10 2 - 15 mmol/L [facility] BUN 13 6 - 25 mg/dL [facility] Creatinine 1.56(H) 0.60 - 1.10 mg/dL [facility] Glucose 98 70 - 199 mg/dL [facility] Comment: Interpretive Data Fasting glucose >/= 126 mg/dl is diagnostic for diabetes. Fasting is defined as no caloric intake for at least 8 hours. Fasting glucose between 100 mg/dl to 125 mg/dl is diagnostic of prediabetes. In a patient with classic symptoms of hyperglycemia or hyperglycemic crisis, a random glucose >/= 200 mg/dl is diagnostic for diabetes. In the absence of unequivocal hyperglycemia, results should be confirmed by repeat testing. The classification and Diagnosis of Diabetes Diabetes Care 2021; 46: S19-S40. Current interpretive data was last revised 2022. Calcium 8.9 8.5 - 10.3 mg/dL [facility] Blood 11/23/2024 9:58 PM CDT 11/23/2024 10:26 PM CDT Baltazar Manzano MD LAB BLOOD ORDERABLES F inal Result [facility] Department [place] [address] * Heparin anti factor Xa activity (11/23/2024 9:58 PM CDT) [facility] Anti Factor Xa 0.50 IUnits/mL Comment: Interpretive Data Enoxaparin therapeutic range (peak): VTE treatment, Q12hr dosin.60-1.00 IUnits/mL VTE treatment, Q24hr dosin.00-2.00 IUnits/mL Q24hr dosing for renal impairment (CrCl <30 mL/min): 0.60-1.00 IUnits/mL VTE prevention: 0.10-0.40 IUnits/mL - Anti-Xa therapeutic ranges apply to blood samples drawn 4 hours after last dose (peak). - Unfractionated heparin (UFH) therapeutic range: 0.30-0.70 IUnits/mL - Direct factor Xa inhibitors (rivaroxaban, apixaban): Results must be interpreted qualitatively. No activity detected suggests little anticoagulant activity. - In severe antithrombin deficiency, anti-Xa measurement may be inaccurate. - Interpretive guidelines developed in adult populations. Interpretive guidelines for pediatric patients have not been rigorously defined. - Current interpretive data was last revised on 2019. Blood 11/23/2024 9:58 PM CDT 11/23/2024 10:20 PM CDT Marilu Kirkland NP LAB BLOOD ORDERABL ES Final Result Performing Organization Address [facility] de Phone Number [facility] [place] [address] * Protime-INR (11/22/2024 11:04 PM CDT) [facility] PT 12.9 9.7 - 13.0 sec INR 1.19 0.90 - 1.20 [facility] Comment: Interpretive data Oral anticoagulant therapeutic ranges: Venous thromboembolism prophylaxis or treatment: 2.0-3.0 CARDIOLOGY Standard range: 2.0-3.0 High-intensity range: 2.5-3.5 Refer to indication-specific guidelines for appropriate target ranges for prosthetic heart valve replacement. Current interpretive data was last revised on 2019. Blood 11/22/2024 11:0 4 PM CDT 11/22/2024 11:14 PM CDT Baltazar Manzano MD LAB BLOOD ORDERABLES F inal Result Performing Organization Address [facility] Co de Phone Number [facility] [place] [address] * (ABNORMAL) aPTT (11/22/2024 11:04 PM CDT) aPTT 80(H) 28 - 38 sec Comment: Interpretive Data Heparin therapeutic range: 66.0 - 100.0 seconds. Range based on correlation with therapeutic heparin activity range of 0.3 - 0.7 Units/mL. Current interpretive data was last revised on 2023. Blood 11/22/2024 11:0 4 PM CDT 11/22/2024 11:14 PM CDT Narrative [facility] - 11/23/2024 12:02 AM CDT STAT PTT timing: - Draw 6 hours after heparin infusion initiation - Draw 6 hours after every dose change until 2 consecutive PTTs are therapeutic - Once 2 consecutive PTTs are therapeutic, obtain with daily labs until infusion is discontinued - - Restart every 6 hour lab draws and follow instructions accordingly if PTT is outside of therapeutic range Do not draw lab from IV line that is actively infusing heparin. Use the opposite arm. If arm with actively infusing heparin must be used, pause the infusion for at least 2 minutes, and draw specimen below the IV site. For patients with a central venous catheter (CVC), lab must be drawn peripherally (not from CVC). us Ranulfo Gentile MD LAB BLOOD ORDERABLES Final R esult Performing Organization Address City/[facility] Co de Phone Number [facility] Department [place] [address] * (ABNORMAL) aPTT (11/21/2024 10:51 PM CDT) Pathologist [facility] aPTT 78(H) 28 - 38 sec Comment: Interpretive Data Heparin therapeutic range: 66.0 - 100.0 seconds. Range based on correlation with therapeutic heparin activity range of 0.3 - 0.7 Units/mL. Current interpretive data was last revised on 2023. Blood 11/21/2024 10:5 1 PM CDT 11/21/2024 11:46 PM CDT us Kandis Spencer MD LAB BLOOD ORDERABLES Final Resu lt [facility] Department [place] [address] * (ABNORMAL) Protime-INR (11/21/2024 10:51 PM CDT) PT 13.5(H) 9.7 - 13.0 sec INR 1.24(H) 0.90 - 1.20 [facility] Comment: Interpretive data Oral anticoagulant therapeutic ranges: Venous thromboembolism prophylaxis or treatment: 2.0-3.0 CARDIOLOGY Standard range: 2.0-3.0 High-intensity range: 2.5-3.5 Refer to indication-specific guidelines for appropriate target ranges for prosthetic heart valve replacement. Current interpretive data was last revised on 2019. Blood 11/21/2024 10:5 1 PM CDT 11/21/2024 11:29 PM CDT us Kandis Spencer MD LAB BLOOD ORDERABLES Final Resu lt Performing Organization Address [facility] de Phone Number [facility] Department [place] [address] * (ABNORMAL) eGFR (11/20/2024 8:45 PM CDT) eGFR 45(L) >=60 mL/min/1. 73 m2 Comment: Interpretive Data Reference Interval Normal >/= 90 mL/min/1.73m2 Mildly decreased* 60 - 89 mL/min/1.73m2 Mildly to moderately decreased 45 - 59 mL/min/1.73m2 Moderately to severely decreased 30 - 44 mL/min/1.73m2 Severely decreased 15 - 29 mL/min/1.73m2 Kidney Failure < 15 mL/min/1.73m2 *Relative to young adult level Estimated glomerular filtration rate is determined by the 2020 CKD-EPI equation recommended by the National Kidney [employer] (A Unifying Approach to GFR Estimation: Recommendations of the NKF-ASK Task Force on Reassessing the Inclusion of Race in Diagnosing Kidney Disease, JASN 2020). The CKD-EPI equation should not be used for patients with unstable renal function and has not been validated in children and those over 70. Current interpretive data was last reviewed 2021. Blood 11/20/2024 8:45 PM CDT 11/20/2024 9:11 PM CDT us Kandis Spencer MD LAB BLOOD ORDERABLES Final Resu lt Performing Organization Address [facility] de Phone Number [facility] [place] [address] * (ABNORMAL) Protime-INR (11/20/2024 8:45 PM CDT) PT 14.0(H) 9.7 - 13.0 sec INR 1.29(H) 0.90 - 1.20 [facility] Comment: Interpretive data Oral anticoagulant therapeutic ranges: Venous thromboembolism prophylaxis or treatment: 2.0-3.0 CARDIOLOGY Standard range: 2.0-3.0 High-intensity range: 2.5-3.5 Refer to indication-specific guidelines for appropriate target ranges for prosthetic heart valve replacement. Current interpretive data was last revised on 2019. Blood 11/20/2024 8:45 PM CDT 11/20/2024 9:08 PM CDT us Baltazar Manzano MD LAB BLOOD ORDERABLES F inal Result Performing Organization Address [facility] de Phone Number [facility] Department [place] [address] * Differential, auto (11/20/2024 8:45 PM CDT) Neutrophil abs 2.97 1.50 - 6.50 K/cumm Imm gran abs 0.04 0.00 - 0.10 K/cumm [facility] Lymphocyte abs 1.02 0.80 - 3.30 K/cumm [facility] Monocyte abs 0.33 0.20 - 0.80 K/cumm [facility] Eosinophil abs 0.17 0.00 - 0.50 K/cumm [facility] Basophil abs 0.03 0.00 - 0.10 K/cumm [facility] Neutrophil pct 65.1 % [facility] Comment: Interpretive Data Percent cell count reference ranges are not reported, since discordance with absolute values may lead to misinterpretation of CBC data. Current Interpretive Data was last revised on 2017. Imm gran pct 0.9 % [facility] Comment: Interpretive Data Percent cell count reference ranges are not reported, since discordance with absolute values may lead to misinterpretation of CBC data. Current Interpretive Data was last revised on 2017. Lymphocyte pct 22.4 % [facility] Comment: Interpretive Data Percent cell count reference ranges are not reported, since discordance with absolute values may lead to misinterpretation of CBC data. Current Interpretive Data was last revised on 2017. Monocyte pct 7.2 % [facility] Comment: Interpretive Data Percent cell count reference ranges are not reported, since discordance with absolute values may lead to misinterpretation of CBC data. Current Interpretive Data was last revised on 2017. Eosinophil pct 3.7 % [facility] Comment: Interpretive Data Percent cell count reference ranges are not reported, since discordance with absolute values may lead to misinterpretation of CBC data. Current Interpretive Data was last revised on 2017. Basophil pct 0.7 % [facility] Comment: Interpretive Data Percent cell count reference ranges are not reported, since discordance with absolute values may lead to misinterpretation of CBC data. Current Interpretive Data was last revised on 2017. Blood 11/20/2024 8:45 PM CDT 11/20/2024 9:11 PM CDT us Kandis Spencer MD LAB BLOOD ORDERABLES Final Resu lt [facility] Department [place] [address] * (ABNORMAL) aPTT (11/20/2024 8:45 PM CDT) aPTT 76(H) 28 - 38 sec Comment: Interpretive Data Heparin therapeutic range: 66.0 - 100.0 seconds. Range based on correlation with therapeutic heparin activity range of 0.3 - 0.7 Units/mL. Current interpretive data was last revised on 2023. Blood 11/20/2024 8:45 PM CDT 11/20/2024 9:08 PM CDT Narrative [facility] - 11/20/2024 9:25 PM CDT STAT PTT timing: - Draw 6 hours after heparin infusion initiation - Draw 6 hours after every dose change until 2 consecutive PTTs are therapeutic - Once 2 consecutive PTTs are therapeutic, obtain with daily labs until infusion is discontinued - - Restart every 6 hour lab draws and follow instructions accordingly if PTT is outside of therapeutic range Do not draw lab from IV line that is actively infusing heparin. Use the opposite arm. If arm with actively infusing heparin must be used, pause the infusion for at least 2 minutes, and draw specimen below the IV site. For patients with a central venous catheter (CVC), lab must be drawn peripherally (not from CVC). us Ranulfo Gentile MD LAB BLOOD ORDERABLES Final R esult [facility] Department [place] [address] * (ABNORMAL) Basic metabolic panel (11/20/2024 8:45 PM CDT) [facility] Signature Sodium 139 135 - 145 mmol/L Potassium, pl 3.8 3.3 - 4.9 mmol/L [facility] Chloride 106 97 - 110 mmol/L [facility] CO2 26 22 - 32 mmol/L [facility] Anion gap 7 2 - 15 mmol/L [facility] BUN 9 6 - 25 mg/dL [facility] Creatinine 1.31(H) 0.60 - 1.10 mg/dL [facility] Glucose 96 70 - 199 mg/dL [facility] Comment: Interpretive Data Fasting glucose >/= 126 mg/dl is diagnostic for diabetes. Fasting is defined as no caloric intake for at least 8 hours. Fasting glucose between 100 mg/dl to 125 mg/dl is diagnostic of prediabetes. In a patient with classic symptoms of hyperglycemia or hyperglycemic crisis, a random glucose >/= 200 mg/dl is diagnostic for diabetes. In the absence of unequivocal hyperglycemia, results should be confirmed by repeat testing. The classification and Diagnosis of Diabetes Diabetes Care 202; 46: S19-S40. Current interpretive data was last revised 2022. Calcium 8.8 8.5 - 10.3 mg/dL [facility] Blood 11/20/2024 8:45 PM CDT 11/20/2024 9:11 PM CDT us Kandis Spencer MD LAB BLOOD ORDERABLES Final Resu lt [facility] Department [place] [address] * (ABNORMAL) CBC with auto differential (11/20/2024 8:45 PM CDT) WBC 4.56 3.80 - 9.90 K/cumm Hgb 7.5(L) 11.9 - 15.5 g/dL [facility] Hct 24.4(L) 35.6 - 45.5 % [facility] Plt 151 150 - 400 K/cumm [facility] MPV 11.1 9.1 - 12.3 fL [facility] RBC 2.78(L) 3.90 - 5.20 M/cumm [facility] MCV 87.8 81.3 - 96.4 fL [facility] MCH 27.0(L) 27.1 - 33.3 pg [facility] MCHC 30.7(L) 32.3 - 35.7 g/dL [facility] RDW CV 15.5(H) 11.1 - 14.9 % [facility] RDW SD 48.6(H) 35.7 - 48.1 fL [facility] NRBC abs 0.00 0.00 - 0.01 K/cumm [facility] Blood 11/20/2024 8:45 PM CDT 11/20/2024 9:11 PM CDT us Kandis Sepncer MD LAB BLOOD ORDERABLES Final Resu lt [facility] [place] [address] * Magnesium (11/20/2024 8:45 PM CDT) [facility] Magnesium 2.1 1.4 - 2.5 mg/dL Blood 11/20/2024 8:45 PM CDT 11/20/2024 9:11 PM CDT us Ranulfo Gentile MD LAB BLOOD ORDERABLES Final R esult Performing Organization Address City/[facility]/ZIP Co de Phone Number [facility] [place] [address] * (ABNORMAL) Hepatic function panel (11/19/2024 8:49 PM CDT) [facility] Bilirubin, total <0.2 0.1 - 1.2 mg/dL Comment:Reviewed Bilirubin, direct <0.2 0.1 - 0.3 mg/dL [facility] Protein, pl 7.3 6.5 - 8.5 g/dL [facility] Albumin 2.9(L) 3.5 - 5.0 g/dL [facility] Alk phos 88 40 - 130 Units/L [facility] ALT 23 7 - 45 Units/L [facility] AST 34 10 - 45 Units/L [facility] Blood 11/19/2024 8:49 PM CDT 11/19/2024 9:44 PM CDT Baltazar Manzano MD LAB BLOOD ORDERABLES F inal Result [facility] [place] [address] * (ABNORMAL) eGFR (11/19/2024 8:49 PM CDT) [facility] eGFR 46(L) >=60 mL/min/1. 73 m2 Comment: Interpretive Data Reference Interval Normal >/= 90 mL/min/1.73m2 Mildly decreased* 60 - 89 mL/min/1.73m2 Mildly to moderately decreased 45 - 59 mL/min/1.73m2 Moderately to severely decreased 30 - 44 mL/min/1.73m2 Severely decreased 15 - 29 mL/min/1.73m2 Kidney Failure < 15 mL/min/1.73m2 *Relative to young adult level Estimated glomerular filtration rate is determined by the 2020 CKD-EPI equation recommended by the National Kidney Foundation (A Unifying Approach to GFR Estimation: Recommendations of the NKF-ASK Task Force on Reassessing the Inclusion of Race in Diagnosing Kidney Disease, JASN 2020). The CKD-EPI equation should not be used for patients with unstable renal function and has not been validated in children and those over 70. Current interpretive data was last reviewed 2021. Blood 11/19/2024 8:49 PM CDT 11/19/2024 9:44 PM CDT us Kandis Spencer MD LAB BLOOD ORDERABLES Final Resu lt [facility] Department [place] [address] * Differential, auto (11/19/2024 8:49 PM CDT) Pathologist [facility] Neutrophil abs 4.17 1.50 - 6.50 K/cumm Imm gran abs 0.02 0.00 - 0.10 K/cumm [facility] Lymphocyte abs 1.03 0.80 - 3.30 K/cumm [facility] Monocyte abs 0.41 0.20 - 0.80 K/cumm [facility] Eosinophil abs 0.17 0.00 - 0.50 K/cumm [facility] Basophil abs 0.04 0.00 - 0.10 K/cumm [facility] Neutrophil pct 71.5 % [facility] Comment: Interpretive Data Percent cell count reference ranges are not reported, since discordance with absolute values may lead to misinterpretation of CBC data. Current Interpretive Data was last revised on 2017. Imm gran pct 0.3 % [facility] Comment: Interpretive Data Percent cell count reference ranges are not reported, since discordance with absolute values may lead to misinterpretation of CBC data. Current Interpretive Data was last revised on 2017. Lymphocyte pct 17.6 % [facility] Comment: Interpretive Data Percent cell count reference ranges are not reported, since discordance with absolute values may lead to misinterpretation of CBC data. Current Interpretive Data was last revised on 2017. Monocyte pct 7.0 % [facility] Comment: Interpretive Data Percent cell count reference ranges are not reported, since discordance with absolute values may lead to misinterpretation of CBC data. Current Interpretive Data was last revised on 2017. Eosinophil pct 2.9 % [facility] Comment: Interpretive Data Percent cell count reference ranges are not reported, since discordance with absolute values may lead to misinterpretation of CBC data. Current Interpretive Data was last revised on 2017. Basophil pct 0.7 % [facility] Comment: Interpretive Data Percent cell count reference ranges are not reported, since discordance with absolute values may lead to misinterpretation of CBC data. Current Interpretive Data was last revised on 2017. Blood 11/19/2024 8:49 PM CDT 11/19/2024 9:44 PM CDT us Kandis Spencer MD LAB BLOOD ORDERABLES Final [facility] lt [facility] [place] [address] * (ABNORMAL) aPTT (11/19/2024 8:49 PM CDT) aPTT 72(H) 28 - 38 sec Comment: Interpretive Data Heparin therapeutic range: 66.0 - 100.0 seconds. Range based on correlation with therapeutic heparin activity range of 0.3 - 0.7 Units/mL. Current interpretive data was last revised on 2023. Blood 11/19/2024 8:49 PM CDT 11/19/2024 9:47 PM CDT us Baltazar Manzano MD LAB BLOOD ORDERABLES F inal Result Performing Organization Address City/[facility]/ZIP Co de Phone Number [facility] [place] [address] * (ABNORMAL) Basic metabolic panel (11/19/2024 8:49 PM CDT) [facility] Sodium 140 135 - 145 mmol/L Potassium, pl 3.8 3.3 - 4.9 mmol/L [facility] Chloride 105 97 - 110 mmol/L [facility] CO2 26 22 - 32 mmol/L [facility] Anion gap 9 2 - 15 mmol/L [facility] BUN 12 6 - 25 mg/dL [facility] Creatinine 1.27(H) 0.60 - 1.10 mg/dL [facility] Glucose 89 70 - 199 mg/dL [facility] Comment: Interpretive Data Fasting glucose >/= 126 mg/dl is diagnostic for diabetes. Fasting is defined as no caloric intake for at least 8 hours. Fasting glucose between 100 mg/dl to 125 mg/dl is diagnostic of prediabetes. In a patient with classic symptoms of hyperglycemia or hyperglycemic crisis, a random glucose >/= 200 mg/dl is diagnostic for diabetes. In the absence of unequivocal hyperglycemia, results should be confirmed by repeat testing. The classification and Diagnosis of Diabetes Diabetes Care 2021; 46: S19-S40. Current interpretive data was last revised 2022. Calcium 9.1 8.5 - 10.3 mg/dL [facility] Blood 11/19/2024 8:49 PM CDT 11/19/2024 9:44 PM CDT us Kandis Spencer MD LAB BLOOD ORDERABLES Final Resu lt Performing Organization Address [facility]/ZIP Co de Phone Number [facility] [place] [address] * (ABNORMAL) Protime-INR (11/19/2024 8:49 PM CDT) Pathologist [facility] PT 14.1(H) 9.7 - 13.0 sec INR 1.30(H) 0.90 - 1.20 [facility] Comment: Interpretive data Oral anticoagulant therapeutic ranges: Venous thromboembolism prophylaxis or treatment: 2.0-3.0 CARDIOLOGY Standard range: 2.0-3.0 High-intensity range: 2.5-3.5 Refer to indication-specific guidelines for appropriate target ranges for prosthetic heart valve replacement. Current interpretive data was last revised on 2019. Blood 11/19/2024 8:49 PM CDT 11/19/2024 9:47 PM CDT us Kandis Spencer MD LAB BLOOD ORDERABLES Final Resu lt [facility] [place] [address] * (ABNORMAL) CBC with auto differential (11/19/2024 8:49 PM CDT) [facility] WBC 5.84 3.80 - 9.90 K/cumm Hgb 7.7(L) 11.9 - 15.5 g/dL [facility] Hct 24.9(L) 35.6 - 45.5 % [facility] Plt 170 150 - 400 K/cumm [facility] MPV 11.3 9.1 - 12.3 fL [facility] RBC 2.88(L) 3.90 - 5.20 M/cumm [facility] MCV 86.5 81.3 - 96.4 fL [facility] MCH 26.7(L) 27.1 - 33.3 pg [facility] MCHC 30.9(L) 32.3 - 35.7 g/dL [facility] RDW CV 15.1(H) 11.1 - 14.9 % [facility] RDW SD 47.3 35.7 - 48.1 fL [facility] NRBC abs 0.00 0.00 - 0.01 K/cumm [facility] Blood 11/19/2024 8:49 PM CDT 11/19/2024 9:44 PM CDT us Kandis Spencer MD LAB BLOOD ORDERABLES Final Resu lt Performing Organization Address City/[facility]/ZIP Co de Phone Number [facility] [place] [address] * Magnesium (11/19/2024 8:49 PM CDT) Magnesium 2.3 1.4 - 2.5 mg/dL Blood 11/19/2024 8:49 PM CDT 11/19/2024 9:44 PM CDT us Ranulfo Gentile MD LAB BLOOD ORDERABLES Final R esult Performing Organization Address [facility] Co de Phone Number [facility] [place] [address] * TRANSESOPHAGEAL ECHO (NEVAEH) W DOPPLER/CF WO CONTRAST (11/19/2024 1:42 PM CDT) Anatomical Region Laterality Modality Echocardiography 11/19/2024 12:5 0 PM CDT Narrative 11/20/2024 9:56 AM CDT [facility] [place] [address] Transesophageal Echocardiographic Report Patient Name: KENDAL CISNEROS J : 1955 (69y 10m) Gender: F Study Date: 11/19/2024 12:50:50 PM Ht(Inch): Wt(LB): BSA: Veneer Drier: Location: [id number] Order Provider: KANDIS SPENCER BMI: Ref.Provider: KANDIS SPENCER Procedures: Transesophageal Echo Report: Echocardiography, transesophageal, real-time with image documentation (2D) including probe placement, image acquisition, interpretation, and report; Doppler echocardiography, limited pulsed wave and/or continuous wave with spectral display; Doppler echocardiography color flow velocity mapping. Performing Physician: Performed by [facility] [employer] Cal[employer] Benjamin NEVAEH probe placed by Calvin Benjamin Consent: Informed consent was obtained from the patient in writing. The risks and benefits of the procedure were explained in detail to the patient, including but not limited to the risk of aspiration, dysphagia, and esophageal perforation. After a thorough discussion of these risks and benefits, the patient agreed to proceed. Medications: Medication(s) given during the procedure: Propofol 340mg Pre Vitals: HR: 78 bpm RR: 18 BP: 131/79 mmHg Sp02: 100 % Post Vitals: HR: 76 bpm RR: 18 BP: 118/75 mmHg Sp02: 92 % Indications: Endocarditis. Findings: Left Ventricle: The left ventricle appears normal in size. Left ventricular systolic function appears normal. Right Ventricle: The right ventricle appears dilated. Right ventricular systolic function appears normal. Left Atrium: The left atrium is normal in size. The left atrial appendage is normal in appearance with no evidence of thrombus (limited visualization). Right Atrium: Normal right atrial size and morphology. Device leads seen in the RA. Atrial Septum: Normal interatrial septum. Mitral Valve: Mitral valve leaflets appear mildly thickened. The mitral regurgitation jet is eccentric and directed posteriorly. Specific MV Structure Abnormalities: Status post mitral valve repair with annuloplasty ring. No mitral valve vegetations seen. Aortic Valve: Mild aortic valve regurgitation. No perivalvular regurgitation. No aortic valve stenosis. 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 The aortic valve prosthesis appears well seated. The aortic prosthesis demonstrates normal leaflet motion. There is no evidence of aortic valve vegetation. Tricuspid Valve: There is moderate to severe tricuspid regurgitation. Mechanism of TR is unclear. There is no evidence of tricuspid valve vegetation. Pulmonic Valve: Normal pulmonic valve structure. Normal pulmonic valve function with trace physiologic regurgitation. Aorta: Normal aortic root. Conclusions: 1. Tiny mobile linear echodensity attach to device lead in the right atrium (DDx includes thrombus vs. vegetation). Cannot rule out lead-related infective endocarditis. 2. Bileaflet tilting disk mechanical prosthetic valve is present in the aortic position. The aortic valve prosthesis appears well seated. The aortic prosthesis demonstrates normal leaflet motion. There is no evidence of aortic valve vegetation. Mild aortic valve regurgitation. No perivalvular regurgitation. No aortic valve stenosis. 3. Moderate to severe tricuspid regurgitation. Mechanism of TR is unclear. There is no evidence of tricuspid valve vegetation. 4. Status post mitral valve repair with annuloplasty ring. No mitral valve vegetations seen. Mitral valve leaflets appear mildly thickened. Moderate mitral regurgitation - eccentric and directed posteriorly jet. No mitral valve vegetations detected. 5. The left ventricle appears normal in size. Left ventricular systolic function appears normal. 6. The right ventricle appears dilated. Right ventricular systolic function appears normal. 7. Normal right atrial size. Device leads seen in the RA. 8. The left atrium is normal in size. Comparisons: Recommendations: Attestation: I have personally reviewed this study with a fellow in a teaching setting and attest to the findings and conclusions. Disclaimer: The study images and the final report will be retained in the patient chart by the Echo Laboratory for the legally required time period. This chart constitutes the legal record of any testing performed. Measurements: 2D/MM Value Range Doppler Value Range Electronically Signed By: Palmer Deluca MD 2024-11-20 09:55:38 CDT Procedure Note Palmer Deluca MD - 11/20/2024 [facility] [place]iac [place] [address] Transesophageal Echocardiographic Report Patient Name: KENDAL CISNEROS J : 1955 (69y 10m) Gender: F Study Date: 11/19/2024 12:50:50 PM Ht(Inch): Wt(LB): BSA: Veneer Drier: Location: [id number] Order Provider: KANDIS SPENCER BMI: Ref.Provider: KANDIS SPENCER Procedures: Transesophageal Echo Report: Echocardiography, transesophageal, real-timewith image documentation (2D) including probe placement, image acquisition,interpretation, and report; Doppler echocardiography, limited pulsed wave and/or continuouswave with spectral display; Doppler echocardiography color flow velocity mapping. Performing Physician: Performed by Palmer Deluca & Calvin Benjamin TEEprobe placed by Calvin Benjamin Consent: Informed consent was obtained from the patient in writing. Therisks and benefits of the procedure were explained in detail to the patient,including but not limited to the risk of aspiration, dysphagia, and esophageal perforation.After a thorough discussion of these risks and benefits, the patient agreed toproceed. Medications: Medication(s) given during the procedure: Propofol 340mg Pre Vitals: HR: 78 bpm RR: 18 BP: 131/79 mmHg Sp02: 100 % Post Vitals: HR: 76 bpm RR: 18 BP: 118/75 mmHg Sp02: 92 % Indications: Endocarditis. Findings: Left Ventricle: The left ventricle appears normal in size. Leftventricular systolic function appears normal. Right Ventricle: The right ventricle appears dilated. Right ventricularsystolic function appears normal. Left Atrium: The left atrium is normal in size. The left atrial appendageis normal in appearance with no evidence of thrombus (limited visualization). Right Atrium: Normal right atrial size and morphology. Device leads seenin the RA. Atrial Septum: Normal interatrial septum. Mitral Valve: Mitral valve leaflets appear mildly thickened. The mitralregurgitation jet is eccentric and directed posteriorly. Specific MV StructureAbnormalities: Status post mitral valve repair with annuloplasty ring. No mitral valve vegetationsseen. Aortic Valve: Mild aortic valve regurgitation. No perivalvularregurgitation. No aortic valve stenosis. A bileaflet tilting disk mechanical prosthetic valve ispresent in the aortic position. The aortic valve prosthesis appears well seated. Theaortic prosthesis demonstrates normal leaflet motion. There is no evidence of aortic valvevegetation. Tricuspid Valve: There is moderate to severe tricuspid regurgitation.Mechanism of TR is unclear. There is no evidence of tricuspid valve vegetation. Pulmonic Valve: Normal pulmonic valve structure. Normal pulmonic valvefunction with trace physiologic regurgitation. Aorta: Normal aortic root. Conclusions: 1. Tiny mobile linear echodensity attach to device lead in the rightatrium (DDx includes thrombus vs. vegetation). Cannot rule out lead-related infectiveendocarditis. 2. Bileaflet tilting disk mechanical prosthetic valve is present in theaortic position. The aortic valve prosthesis appears well seated. The aortic prosthesisdemonstrates normal leaflet motion. There is no evidence of aortic valve vegetation.Mild aortic valve regurgitation. No perivalvular regurgitation. No aortic valve stenosis. 3. Moderate to severe tricuspid regurgitation. Mechanism of TR is unclear.There is no evidence of tricuspid valve vegetation. 4. Status post mitral valve repair with annuloplasty ring. No mitral valvevegetations seen. Mitral valve leaflets appear mildly thickened. Moderate mitralregurgitation - eccentric and directed posteriorly jet. No mitral valve vegetationsdetected. 5. The left ventricle appears normal in size. Left ventricular systolicfunction appears normal. 6. The right ventricle appears dilated. Right ventricular systolicfunction appears normal. 7. Normal right atrial size. Device leads seen in the RA. 8. The left atrium is normal in size. Comparisons: Recommendations: Attestation: I have personally reviewed this study with a fellow in ateaching setting and attest to the findings and conclusions. Disclaimer: The study images and the final report will be retained in thepatient chart by the Echo Laboratory for the legally required time period. This chartconstitutes the legal record of any testing performed. Measurements: 2D/MM Value Range Doppler Value Range Electronically Signed By: Palmer Deluca MD 2024-11-20 09:55:38 CDT Kandis Spencer MD CV ECHO PROCEDURES Final Result * (ABNORMAL) eGFR (11/18/2024 6:01 PM CDT) eGFR 41(L) >=60 mL/min/1. 73 m2 Comment: Interpretive Data Reference Interval Normal >/= 90 mL/min/1.73m2 Mildly decreased* 60 - 89 mL/min/1.73m2 Mildly to moderately decreased 45 - 59 mL/min/1.73m2 Moderately to severely decreased 30 - 44 mL/min/1.73m2 Severely decreased 15 - 29 mL/min/1.73m2 Kidney Failure < 15 mL/min/1.73m2 *Relative to young adult level Estimated glomerular filtration rate is determined by the 2020 CKD-EPI equation recommended by the National Kidney [employer] (A Unifying Approach to GFR Estimation: Recommendations of the NKF-ASK Task Force on Reassessing the Inclusion of Race in Diagnosing Kidney Disease, JASN 202). The CKD-EPI equation should not be used for patients with unstable renal function and has not been validated in children and those over 70. Current interpretive data was last reviewed 2021. Blood 11/18/2024 6:01 PM CDT 11/18/2024 6:24 PM CDT Kandis Spencer MD LAB BLOOD ORDERABLES Final Resu lt Performing Organization Address [facility]/ZIP Co de Phone Number [facility] [place] [address] * (ABNORMAL) Protime-INR (11/18/2024 6:01 PM CDT) Pathologist [facility] PT 15.6(H) 9.7 - 13.0 sec INR 1.43(H) 0.90 - 1.20 [facility] Comment: Interpretive data Oral anticoagulant therapeutic ranges: Venous thromboembolism prophylaxis or treatment: 2.0-3.0 CARDIOLOGY Standard range: 2.0-3.0 High-intensity range: 2.5-3.5 Refer to indication-specific guidelines for appropriate target ranges for prosthetic heart valve replacement. Current interpretive data was last revised on 2019. Blood 11/18/2024 6:01 PM CDT 11/18/2024 6:18 PM CDT Baltazar Manzano MD LAB BLOOD ORDERABLES F inal Result Performing Organization Address City/[facility]/ZIP Co de Phone Number [facility] [place] [address] * Differential, auto (11/18/2024 6:01 PM CDT) Pathologist [facility] Neutrophil abs 3.19 1.50 - 6.50 K/cumm Imm gran abs 0.02 0.00 - 0.10 K/cumm [facility] Lymphocyte abs 0.96 0.80 - 3.30 K/cumm [facility] Monocyte abs 0.33 0.20 - 0.80 K/cumm [facility] Eosinophil abs 0.17 0.00 - 0.50 K/cumm [facility] Basophil abs 0.04 0.00 - 0.10 K/cumm [facility] Neutrophil pct 67.8 % [facility] Comment: Interpretive Data Percent cell count reference ranges are not reported, since discordance with absolute values may lead to misinterpretation of CBC data. Current Interpretive Data was last revised on 2017. Imm gran pct 0.4 % [facility] Comment: Interpretive Data Percent cell count reference ranges are not reported, since discordance with absolute values may lead to misinterpretation of CBC data. Current Interpretive Data was last revised on 2017. Lymphocyte pct 20.4 % [facility] Comment: Interpretive Data Percent cell count reference ranges are not reported, since discordance with absolute values may lead to misinterpretation of CBC data. Current Interpretive Data was last revised on 2017. Monocyte pct 7.0 % [facility] Comment: Interpretive Data Percent cell count reference ranges are not reported, since discordance with absolute values may lead to misinterpretation of CBC data. Current Interpretive Data was last revised on 2017. Eosinophil pct 3.6 % [facility] Comment: Interpretive Data Percent cell count reference ranges are not reported, since discordance with absolute values may lead to misinterpretation of CBC data. Current Interpretive Data was last revised on 2017. Basophil pct 0.8 % [facility] Comment: Interpretive Data Percent cell count reference ranges are not reported, since discordance with absolute values may lead to misinterpretation of CBC data. Current Interpretive Data was last revised on 2017. Blood 11/18/2024 6:01 PM CDT 11/18/2024 6:24 PM CDT us Kandis Spencer MD LAB BLOOD ORDERABLES Final Resu lt [facility] Department [place] [address] * (ABNORMAL) aPTT (11/18/2024 6:01 PM CDT) aPTT 76(H) 28 - 38 sec Comment: Interpretive Data Heparin therapeutic range: 66.0 - 100.0 seconds. Range based on correlation with therapeutic heparin activity range of 0.3 - 0.7 Units/mL. Current interpretive data was last revised on 2023. Blood 11/18/2024 6:01 PM CDT 11/18/2024 6:18 PM CDT Narrative [facility] - 11/18/2024 6:43 PM CDT STAT PTT timing: - Draw 6 hours after heparin infusion initiation - Draw 6 hours after every dose change until 2 consecutive PTTs are therapeutic - Once 2 consecutive PTTs are therapeutic, obtain with daily labs until infusion is discontinued - - Restart every 6 hour lab draws and follow instructions accordingly if PTT is outside of therapeutic range Do not draw lab from IV line that is actively infusing heparin. Use the opposite arm. If arm with actively infusing heparin must be used, pause the infusion for at least 2 minutes, and draw specimen below the IV site. For patients with a central venous catheter (CVC), lab must be drawn peripherally (not from CVC). us Ranulfo Gentile MD LAB BLOOD ORDERABLES Final R esult [facility] Department [place] [address] * (ABNORMAL) Basic metabolic panel (11/18/2024 6:01 PM CDT) Sodium 139 135 - 145 mmol/L Potassium, pl 3.8 3.3 - 4.9 mmol/L [facility] Chloride 106 97 - 110 mmol/L [facility] CO2 26 22 - 32 mmol/L [facility] Anion gap 7 2 - 15 mmol/L [facility] BUN 14 6 - 25 mg/dL [facility] Creatinine 1.40(H) 0.60 - 1.10 mg/dL [facility] Glucose 99 70 - 199 mg/dL [facility] Comment: Interpretive Data Fasting glucose >/= 126 mg/dl is diagnostic for diabetes. Fasting is defined as no caloric intake for at least 8 hours. Fasting glucose between 100 mg/dl to 125 mg/dl is diagnostic of prediabetes. In a patient with classic symptoms of hyperglycemia or hyperglycemic crisis, a random glucose >/= 200 mg/dl is diagnostic for diabetes. In the absence of unequivocal hyperglycemia, results should be confirmed by repeat testing. The classification and Diagnosis of Diabetes Diabetes Care 202; 46: S19-S40. Current interpretive data was last revised 2022. Calcium 9.4 8.5 - 10.3 mg/dL [facility] Blood 11/18/2024 6:01 PM CDT 11/18/2024 6:24 PM CDT Kandis Spencer MD LAB BLOOD ORDERABLES Final Resu lt [facility] Department [place] [address] * (ABNORMAL) CBC with auto differential (11/18/2024 6:01 PM CDT) WBC 4.71 3.80 - 9.90 K/cumm Hgb 7.8(L) 11.9 - 15.5 g/dL [facility] Hct 25.1(L) 35.6 - 45.5 % [facility] Plt 166 150 - 400 K/cumm [facility] MPV 11.1 9.1 - 12.3 fL [facility] RBC 2.90(L) 3.90 - 5.20 M/cumm [facility] MCV 86.6 81.3 - 96.4 fL [facility] MCH 26.9(L) 27.1 - 33.3 pg [facility] MCHC 31.1(L) 32.3 - 35.7 g/dL [facility] RDW CV 14.9 11.1 - 14.9 % [facility] RDW SD 47.3 35.7 - 48.1 fL [facility] NRBC abs 0.00 0.00 - 0.01 K/cumm [facility] Blood 11/18/2024 6:01 PM CDT 11/18/2024 6:24 PM CDT Kandis Spencer MD LAB BLOOD ORDERABLES Final Resu lt [facility] [place] [address] * Magnesium (11/18/2024 6:01 PM CDT) Pathologist [facility] Magnesium 2.2 1.4 - 2.5 mg/dL Blood 11/18/2024 6:01 PM CDT 11/18/2024 6:24 PM CDT Ranulfo Gentile MD LAB BLOOD ORDERABLES Final R esult Performing Organization Address [facility] Co de Phone Number [facility] [place] [address] * (ABNORMAL) aPTT (11/18/2024 11:45 AM CDT) [facility] aPTT 74(H) 28 - 38 sec Comment: Interpretive Data Heparin therapeutic range: 66.0 - 100.0 seconds. Range based on correlation with therapeutic heparin activity range of 0.3 - 0.7 Units/mL. Current interpretive data was last revised on 2023. Blood 11/18/2024 11:4 5 AM CDT 11/18/2024 12:02 PM CDT Narrative [facility] - 11/18/2024 12:33 PM CDT STAT PTT timing: - Draw 6 hours after heparin infusion initiation - Draw 6 hours after every dose change until 2 consecutive PTTs are therapeutic - Once 2 consecutive PTTs are therapeutic, obtain with daily labs until infusion is discontinued - - Restart every 6 hour lab draws and follow instructions accordingly if PTT is outside of therapeutic range Do not draw lab from IV line that is actively infusing heparin. Use the opposite arm. If arm with actively infusing heparin must be used, pause the infusion for at least 2 minutes, and draw specimen below the IV site. For patients with a central venous catheter (CVC), lab must be drawn peripherally (not from CVC). us Ranulfo Gentile MD LAB BLOOD ORDERABLES Final R esult Performing Organization Address [facility] Co de Phone Number JULIANA [facility] [place] [address] * (ABNORMAL) eGFR (11/18/2024 4:25 AM CDT) eGFR 41(L) >=60 mL/min/1. 73 m2 Comment: Interpretive Data Reference Interval Normal >/= 90 mL/min/1.73m2 Mildly decreased* 60 - 89 mL/min/1.73m2 Mildly to moderately decreased 45 - 59 mL/min/1.73m2 Moderately to severely decreased 30 - 44 mL/min/1.73m2 Severely decreased 15 - 29 mL/min/1.73m2 Kidney Failure < 15 mL/min/1.73m2 *Relative to young adult level Estimated glomerular filtration rate is determined by the 2020 CKD-EPI equation recommended by the National Kidney Foundation (A Unifying Approach to GFR Estimation: Recommendations of the NKF-ASK Task Force on Reassessing the Inclusion of Race in Diagnosing Kidney Disease, JASN 2020). The CKD-EPI equation should not be used for patients with unstable renal function and has not been validated in children and those over 70. Current interpretive data was last reviewed 2021. Blood 11/18/2024 4:25 AM CDT 11/18/2024 4:47 AM CDT us Kandis Spencer MD LAB BLOOD ORDERABLES Final Resu lt Performing Organization Address City/[facility] Co de Phone Number [facility] Department [place] [address] * (ABNORMAL) aPTT (11/18/2024 4:25 AM CDT) aPTT 60(H) 28 - 38 sec Comment: Interpretive Data Heparin therapeutic range: 66.0 - 100.0 seconds. Range based on correlation with therapeutic heparin activity range of 0.3 - 0.7 Units/mL. Current interpretive data was last revised on 2023. Blood 11/18/2024 4:25 AM CDT 11/18/2024 4:39 AM CDT us Baltazar Manzano MD LAB BLOOD ORDERABLES F inal Result [facility] Department [place] [address] * Differential, auto (11/18/2024 4:25 AM CDT) Neutrophil abs 2.93 1.50 - 6.50 K/cumm Imm gran abs 0.02 0.00 - 0.10 K/cumm [facility] Lymphocyte abs 1.32 0.80 - 3.30 K/cumm [facility] Monocyte abs 0.36 0.20 - 0.80 K/cumm [facility] Eosinophil abs 0.17 0.00 - 0.50 K/cumm [facility] Basophil abs 0.04 0.00 - 0.10 [facility] Neutrophil pct 60.6 % [facility] Comment: Interpretive Data Percent cell count reference ranges are not reported, since discordance with absolute values may lead to misinterpretation of CBC data. Current Interpretive Data was last revised on 2017. Imm gran pct 0.4 % [facility] Comment: Interpretive Data Percent cell count reference ranges are not reported, since discordance with absolute values may lead to misinterpretation of CBC data. Current Interpretive Data was last revised on 2017. Lymphocyte pct 27.3 % [facility] Comment: Interpretive Data Percent cell count reference ranges are not reported, since discordance with absolute values may lead to misinterpretation of CBC data. Current Interpretive Data was last revised on 2017. Monocyte pct 7.4 % [facility] Comment: Interpretive Data Percent cell count reference ranges are not reported, since discordance with absolute values may lead to misinterpretation of CBC data. Current Interpretive Data was last revised on 2017. Eosinophil pct 3.5 % [facility] Comment: Interpretive Data Percent cell count reference ranges are not reported, since discordance with absolute values may lead to misinterpretation of CBC data. Current Interpretive Data was last revised on 2017. Basophil pct 0.8 % [facility] Comment: Interpretive Data Percent cell count reference ranges are not reported, since discordance with absolute values may lead to misinterpretation of CBC data. Current Interpretive Data was last revised on 2017. Blood 11/18/2024 4:25 AM CDT 11/18/2024 4:47 AM CDT Kandis Spencer MD LAB BLOOD ORDERABLES Final Resu lt Performing Organization Address [facility]/ZIP Co de Phone Number [facility] Department [place] [address] * (ABNORMAL) Basic metabolic panel (11/18/2024 4:25 AM CDT) [facility] Sodium 141 135 - 145 mmol/L Potassium, pl 3.9 3.3 - 4.9 mmol/L [facility] Chloride 106 97 - 110 mmol/L [facility] CO2 26 22 - 32 mmol/L [facility] Anion gap 9 2 - 15 mmol/L [facility] BUN 13 6 - 25 mg/dL [facility] Creatinine 1.41(H) 0.60 - 1.10 mg/dL [facility] Glucose 98 70 - 199 mg/dL [facility] Comment: Interpretive Data Fasting glucose >/= 126 mg/dl is diagnostic for diabetes. Fasting is defined as no caloric intake for at least 8 hours. Fasting glucose between 100 mg/dl to 125 mg/dl is diagnostic of prediabetes. In a patient with classic symptoms of hyperglycemia or hyperglycemic crisis, a random glucose >/= 200 mg/dl is diagnostic for diabetes. In the absence of unequivocal hyperglycemia, results should be confirmed by repeat testing. The classification and Diagnosis of Diabetes Diabetes Care 202; 46: S19-S40. Current interpretive data was last revised 2022. Calcium 9.7 8.5 - 10.3 mg/dL [facility] Blood 11/18/2024 4:25 AM CDT 11/18/2024 4:47 AM CDT Kandis Spencer MD LAB BLOOD ORDERABLES Final Resu lt Performing Organization Address [facility]/ZIP Co de Phone Number [facility] [place] [address] * (ABNORMAL) Protime-INR (11/18/2024 4:25 AM CDT) Pathologist [facility] PT 16.1(H) 9.7 - 13.0 sec INR 1.48(H) 0.90 - 1.20 [facility] Comment: Interpretive data Oral anticoagulant therapeutic ranges: Venous thromboembolism prophylaxis or treatment: 2.0-3.0 CARDIOLOGY Standard range: 2.0-3.0 High-intensity range: 2.5-3.5 Refer to indication-specific guidelines for appropriate target ranges for prosthetic heart valve replacement. Current interpretive data was last revised on 2019. Blood 11/18/2024 4:25 AM CDT 11/18/2024 4:39 AM CDT us Kandis Spencer MD LAB BLOOD ORDERABLES Final Resu lt [facility] [place] [address] * (ABNORMAL) CBC with auto differential (11/18/2024 4:25 AM CDT) [facility] WBC 4.84 3.80 - 9.90 K/cumm Hgb 8.7(L) 11.9 - 15.5 g/dL [facility] Hct 28.6(L) 35.6 - 45.5 % [facility] Plt 183 150 - 400 K/cumm [facility] MPV 11.3 9.1 - 12.3 fL [facility] RBC 3.25(L) 3.90 - 5.20 M/cumm [facility] MCV 88.0 81.3 - 96.4 fL [facility] MCH 26.8(L) 27.1 - 33.3 pg [facility] MCHC 30.4(L) 32.3 - 35.7 g/dL [facility] RDW CV 14.8 11.1 - 14.9 % [facility] RDW SD 47.4 35.7 - 48.1 fL [facility] NRBC abs 0.00 0.00 - 0.01 K/cumm [facility] Blood 11/18/2024 4:25 AM CDT 11/18/2024 4:47 AM CDT us Kandis Spencer MD LAB BLOOD ORDERABLES Final Resu lt Performing Organization Address City/[facility]/ZIP Co de Phone Number [facility] [place] [address] * Magnesium (11/18/2024 4:25 AM CDT) Magnesium 2.4 1.4 - 2.5 mg/dL Blood 11/18/2024 4:25 AM CDT 11/18/2024 4:47 AM CDT us Ranulfo Gentile MD LAB BLOOD ORDERABLES Final R esult Performing Organization Address [facility] Co de Phone Number [facility] Department [place] [address] * Tissue aerobic and anaerobic culture and gram stain Bone Thoracic spine (11/17/2024 5:15 PM CDT) Direct Specimen Exam Stain: No polymorphonuclear leukocytes seen. No organisms seen. Report Final Report: No growth [facility] Bone (Thoracic spine) 11/17/2024 5:15 PM CDT 11/17/2024 8:56 PM CDT Narrative [facility] - 11/21/2024 10:18 AM CDT T10-T11 BONE/DISC BIOPSY Testing performed by [facility] ([phone]) Specimens submitted from normally sterile body sites will have all bacterial morphotypes identified. Specimens that contain grossly mixed jose and/or are from body sites that are not normally sterile will be examined for Staphylococcus aureus, Pseudomonas aeruginosa, beta-hemolytic strep, vancomycin-resistant Enterococcus, Bacteroides, Parabacteroides, Clostridium perfringens and fungus. If any of these are isolated, the organism will be reported. Current interpretive data was last revised on 2019. Baltazar Manzano MD LAB MICROBIOLOGY - GEN ERAL ORDERABLES Final Result Performing Organization Address [facility] Co de Phone Number [facility] [place] [address] * Aerobic and anaerobic culture and gram stain Aspirate Thoracic spine (11/17/2024 5:15 PM CDT) Direct Specimen Exam Stain: No polymorphonuclear leukocytes seen. No organisms seen. Report Final Report: No growth [facility] Aspirate (Thoracic spine) 11/17/2024 5:15 PM CDT 11/17/2024 9:02 PM CDT Narrative [facility] - 11/21/2024 10:18 AM CDT T10-T11 ASPIRATE Testing performed by [facility] ([phone]) Specimens submitted from normally sterile body sites will have all bacterial morphotypes identified. Specimens that contain grossly mixed jose and/or are from body sites that are not normally sterile will be examined for Staphylococcus aureus, Pseudomonas aeruginosa, beta-hemolytic strep, vancomycin-resistant Enterococcus, Bacteroides, Parabacteroides, Clostridium perfringens and fungus. If any of these are isolated, the organism will be reported. Current interpretive data was last revised on 2019. Eliane Feng NP LAB MICROBIOLOGY - GENERAL ORD ERABLES Final Result Performing Organization Address [facility] Co de Phone Number [facility] [place] [address] * IR Biopsy Deep Bone (11/17/2024 5:15 PM CDT) Anatomical Region Laterality Modality Body N/A Radio Fluoroscop y 11/17/2024 5:27 PM CDT Impressions 11/17/2024 5:27 PM CDT 1. T10-T11 bone/disc biopsy under fluoroscopic guidance. The core specimens and aspirate were sent to surgical pathology and microbiology. Electronically signed by: MD Patsy Triplett 11/17/2024 5:27 PM CDT EXAMINATION: T10-T11 bone/disc biopsy under fluoroscopic guidance HISTORY: Concern for discitis ostial myelitis ATTENDING PRESENCE: Dr. Riley Joya MD, the attending radiologist, was present from the beginning to the end of the procedure. SEDATION: Conscious sedation was administered under the attending physician's direction and continuous monitoring by a trained nurse specialist who was independent from those actually performing the procedure. Total monitored sedation time was 21 minutes. During the course of the procedure, the patient received Fentanyl 150 mcg and Versed 3 mg IV. TECHNIQUE: The risks, benefits and alternatives were discussed and informed consent was obtained. Prior to beginning the procedure, [place] Protocol was performed to confirm the patient's identity and the planned procedure. Sterile barriers used during the procedure included cap, mask, hand hygiene, sterile gloves, sterile gown and a sterile drape. Chloraprep was used for cutaneous antisepsis. The patient was placed prone on the fluoroscopic. The biopsy site was localized with fluoroscopy. 10 mL of a 1:1 mixture of 0.25% bupivacaine and 1% lidocaine was injected for subcutaneous and deep anesthesia. A 10 cm 11-gauge 13-gauge on control biopsy needle was inserted into the biopsy site utilizing fluoroscopic guidance. Appropriate needle position was confirmed with fluoroscopy. Multiple core specimens totaling approximately 3 in length were obtained. 4 mL of blood-tinged aspirate was also obtained from the T10/T11 disc space and adjacent marrow The needle was removed and the skin was cleansed with hydrogen peroxide. Dermabond was placed at the needle entry site. Complication: None Type: None ESTIMATED BLOOD LOSS: <30mL CONDITION: Stable condition. DISCHARGED TO: Home FINDINGS: Fluoroscopic images redemonstrate destructive changes at the T10-T11 disc as well as prior augmentation at L1. Subsequent images demonstrate appropriate position of the biopsy needle. Procedure Note iRley Joya MD - 11/17/2024 EXAMINATION: T10-T11 bone/disc biopsy under fluoroscopic guidance HISTORY: Concern for discitis ostial myelitis ATTENDING PRESENCE: Dr. Riley Joya MD, the attending radiologist, was present from the beginning to the end of the procedure. SEDATION: Conscious sedation was administered under the attending physician's direction and continuous monitoring by a trained nurse specialist who was independent from those actually performing the procedure. Total monitored sedation time was 21 minutes. During the course of the procedure, the patient received Fentanyl 150 mcg and Versed 3 mg IV. TECHNIQUE: The risks, benefits and alternatives were discussed and informed consent was obtained. Prior to beginning the procedure, [place] Protocol was performed to confirm the patient's identity and the planned procedure. Sterile barriers used during the procedure included cap, mask, hand hygiene, sterile gloves, sterile gown and a sterile drape. Chloraprep was used for cutaneous antisepsis. The patient was placed prone on the fluoroscopic. The biopsy site was localized with fluoroscopy. 10 mL of a 1:1 mixture of 0.25% bupivacaine and 1% lidocaine was injected for subcutaneous and deep anesthesia. A 10 cm 11-gauge 13-gauge on control biopsy needle was inserted into the biopsy site utilizing fluoroscopic guidance. Appropriate needle position was confirmed with fluoroscopy. Multiple core specimens totaling approximately 3 in length were obtained. 4 mL of blood-tinged aspirate was also obtained from the T10/T11 disc space and adjacent marrow The needle was removed and the skin was cleansed with hydrogen peroxide. Dermabond was placed at the needle entry site. Complication: None Type: None ESTIMATED BLOOD LOSS: <30mL CONDITION: Stable condition. DISCHARGED TO: Home FINDINGS: Fluoroscopic images redemonstrate destructive changes at the T10-T11 disc as well as prior augmentation at L1. Subsequent images demonstrate appropriate position of the biopsy needle. IMPRESSION: 1. T10-T11 bone/disc biopsy under fluoroscopic guidance. The core specimens and aspirate were sent to surgical pathology and microbiology. Electronically signed by: Riley Joya MD Eliane Feng NP IM IR PROCEDURES Final Result * Surgical pathology (11/17/2024 5:10 PM CDT) Tissue (Bone - Biopsy / Curettings) 11/17/2024 5:10 PM CDT Comment:T10-T11 BONE/DISC BI OPSY Narrative PATHOLOGY [facility] - 11/26/2024 9:45 AM CDT EPIC results best viewed via link to PDF [facility] [place] [address] Note to Patients: This report may contain a detailed description of human tissue sent by a health care provider to the laboratory for pathologic evaluation. The content of this report is essential for diagnosis and may provide important critical findings. This information may be unfamiliar to patients to review without a medical professional present. It is advised that the patient review this report in the presence of a health care provider who can answer questions and explain the details. SURGICAL PATHOLOGY REPORT FINAL Patient Name: KENDAL CISNEROS Gender: F : 1955 (Age: 69) Address: [address] [place], [place] [id number] Hospital #: [id number] Taken:11/17/2024 Received:11/17/2024 Reported: 11/26/2024 Patient Type: [facility] Inpatient Service: Medical Location: [place] [address] Physician(s): Eliane Feng, MICHAEL Berger M.D. Diagnosis: Bone, T10-T11, biopsy - Bone with medullary fibrosis, hemosiderin deposition and woven bone formation (see comment) ma/11/25/2024 12:55 By this signature, I attest that the above diagnosis is based upon my personal examination of the slides(and/or other material indicated in the diagnosis). Erasto Ma M.D. Report Electronically Reviewed and Signed Out By Erasto Ma M.D. 11/26/2024 09:45:53 Microscopic Description and Comment: The histologic findings are not entirely specific. The differential diagnosis includes prior or ongoing osteomyelitis versus a reactive/degenerative process. Clinical, imaging and microbiological correlation is recommended. Multiple deeper recuts were obtained and examined. Tatiana Calix M.D., PhD History: The patient is a 69-year-old woman presenting for chronic midline thoracic back pain and bacteremia due to Enterococcus. Operative procedure: T10-T11 bone/disc biopsy. Specimen(s) Received: A: T-10-T11 bone/disc biopsy Gross Description: Received in formalin, labeled with the patient s identifiers and T10-T11 bone/disc biopsy and consists of one de luna core(s) of bone (measuring 0.6 cm in length by 0.3 cm in diameter). Labeled A1 with Acid 1 decalcification. Jar 0. elsw/11/18/2024 11:30 PA(s): Cinthya Crooks By this signature, I attest that the above diagnosis is based upon my personal examination of the slides(and/or other material). Addenda/Procedures The performance characteristics of some immunohistochemical stains, fluorescence in-situ hybridization tests and immunophenotyping by flow cytometry cited in this report (if any) were determined by the Surgical Pathology and Flow Cytometry Departments at [facility] as part of an ongoing fiberglass quality technician program and in compliance with federally mandated regulations drawn from the Clinical Laboratory Improvement Act of 1988 (CLIA '88). Some of these tests rely on the use of analyte specific reagents and are subject to specific labeling requirements by the US Food and Drug Administration. Such diagnostic tests may only be performed in a facility that is certified by the Department of Health and Human Services as a high complexity laboratory under CLIA '88. The FDA has determined that such clearance or approval is not necessary. This test is used for clinical purposes. It should not be regarded as investigational or for research. Nevertheless, federal rules concerning the medical use of analyte specific reagents require that the following disclaimer be attached to the report: This test was developed and its performance characteristics determined by the Surgical Pathology and Flow Cytometry Departments of [facility]. It has not been cleared or approved by the U. S. Food and Drug Administration. IMAGES AND SCANNED DOCUMENTS, IF INCLUDED, ONLY VIEWABLE IN PDF VERSION OF REPORT Eliane Feng NP LAB PATHOLOGY ORDERABLES Final Result PATHOLOGY [facility] 3rd Floor [place], [place] [phone] * (ABNORMAL) aPTT (11/17/2024 2:05 PM CDT) aPTT 27(L) 28 - 38 sec Comment: Interpretive Data Heparin therapeutic range: 66.0 - 100.0 seconds. Range based on correlation with therapeutic heparin activity range of 0.3 - 0.7 Units/mL. Current interpretive data was last revised on 2023. Blood 11/17/2024 2:05 PM CDT 11/17/2024 2:14 PM CDT Baltazar Manzano MD LAB BLOOD ORDERABLES F inal Result Performing Organization Address City/State/[facility] Co de Phone Number [facility] [place] [address] * (ABNORMAL) Protime-INR (11/17/2024 2:05 PM CDT) PT 15.2(H) 9.7 - 13.0 sec INR 1.40(H) 0.90 - 1.20 [facility] Comment: Interpretive data Oral anticoagulant therapeutic ranges: Venous thromboembolism prophylaxis or treatment: 2.0-3.0 CARDIOLOGY Standard range: 2.0-3.0 High-intensity range: 2.5-3.5 Refer to indication-specific guidelines for appropriate target ranges for prosthetic heart valve replacement. Current interpretive data was last revised on 2019. Blood 11/17/2024 2:05 PM CDT 11/17/2024 2:14 PM CDT Baltazar Manzano MD LAB BLOOD ORDERABLES F inal Result Performing Organization Address [facility] Co de Phone Number [facility] [place] [address] * MRI Spine Total Complete W WO Contrast (11/17/2024 1:04 PM CDT) Anatomical Region Laterality Modality Spine N/A Magnetic Resonan ce 11/17/2024 2:43 PM CDT Impressions 11/17/2024 5:27 PM CDT 1. Abnormal signal within the T10-T11 vertebral bodies and disc space with cortical erosion and paraspinal soft tissue edema, concerning for osteomyelitis discitis at this level. 2. Redemonstrated L1 vertebral body compression fracture with postoperative changes of augmentation. 3. Nonspecific hyperintense signal within the david, incompletely evaluated. Recommend dedicated brain MRI if clinically indicated. 4. Mild to moderate degenerative changes of the cervical, thoracic, and lumbar spine as above. Dictated by: Ariel Babb M.D. The radiology attending physician has personally reviewed this study, and had reviewed and/or edited this written report and agrees with it. Electronically signed by: Jessica Pagan M.D. Narrative 11/17/2024 5:27 PM CDT EXAMINATION: 1. Magnetic resonance imaging (MRI) of the cervical spine without and with contrast 2. Magnetic resonance imaging (MRI) of the thoracic spine without and with contrast 3. Magnetic resonance imaging (MRI) of the lumbar spine without and with contrast HISTORY: Concern for thoracic discitis/osteomyelitis TECHNIQUE: Multiplanar multi-weighted MRI of the cervical spine was performed without and with intravenous contrast using the standard protocol. Multiplanar multi-weighted MRI of the thoracic was performed without and with intravenous contrast using the standard protocol. Multiplanar multi-weighted MRI of the lumbar spine was performed without and with intravenous contrast using the standard protocol. Contrast information: 12 mL Gadoterate Meglumine IV COMPARISON: 11/10/[address] FINDINGS: Nonspecific hyperintense signal within the david, incompletely evaluated. CERVICAL SPINE: There is mild straightening of the normal curvature the cervical spine. Vertebral bodies demonstrate normal signal intensity on all sequences. No acute fracture is identified. Degenerative changes of the craniocervical junction are noted. The visualized portions of the skull base and the posterior fossa are normal. The spinal cord demonstrates normal signal intensity on all sequences. There is mild to moderate multilevel disc disease worst at C4-5 and C6-C7. No high grade canal stenosis. Nonspecific hyperintense signal within the david, incompletely evaluated. Varying degrees of neuroforaminal stenosis, difficult to evaluate due to motion. There are no annular fissures identified. Dilated fluid filled esophagus, incompletely evaluated. Normal signal voids are present in the vertebral arteries. There is no abnormal contrast enhancement. THORACIC SPINE: T4 right pedical, T5, and T8 vertebral body hemangiomas are noted. Mild straightening of the normal curvature of the thoracic spine. There is cortical irregularity and increased STIR signal in the inferior aspect of T10 and superior aspect of T11 with cortical erosion and soft tissue swelling anteriorly and enhancement. The T10-11 disc space T2 signal is increased. The spinal cord demonstrates normal signal intensity on all sequences. Limited views of the chest demonstrate left lower lobe atelectasis. The aorta is normal. There is mild to moderate multilevel facet arthropathy in the lower thoracic spine. There is no high-grade neuroforaminal stenosis. There is no high-grade spinal canal stenosis. LUMBAR SPINE: Redemonstrated chronic L1 compression fracture with postoperative changes of augmentation. There are no acute fractures. L5 hemangioma is noted. The conus medullaris terminates at the level of T12-L1. The distal spinal cord signal intensity is normal. Mild multilevel degenerative changes of the lumbar spine. There are no annular fissures identified. Limited views of the abdomen and pelvis show no soft tissue abnormality. The aorta is normal. There is no abnormal contrast enhancement. There is mild to moderate multilevel facet arthropathy. There is no high-grade neuroforaminal stenosis. There is no high-grade spinal canal stenosis. Procedure Note VoJessica MD - 11/17/2024 EXAMINATION: 1. Magnetic resonance imaging (MRI) of the cervical spine without and with contrast 2. Magnetic resonance imaging (MRI) of the thoracic spine without and with contrast 3. Magnetic resonance imaging (MRI) of the lumbar spine without and with contrast HISTORY: Concern for thoracic discitis/osteomyelitis TECHNIQUE: Multiplanar multi-weighted MRI of the cervical spine was performed without and with intravenous contrast using the standard protocol. Multiplanar multi-weighted MRI of the thoracic was performed without and with intravenous contrast using the standard protocol. Multiplanar multi-weighted MRI of the lumbar spine was performed without and with intravenous contrast using the standard protocol. Contrast information: 12 mL Gadoterate Meglumine IV COMPARISON: 11/10/[address] FINDINGS: Nonspecific hyperintense signal within the david, incompletely evaluated. CERVICAL SPINE: There is mild straightening of the normal curvature the cervical spine. Vertebral bodies demonstrate normal signal intensity on all sequences. No acute fracture is identified. Degenerative changes of the craniocervical junction are noted. The visualized portions of the skull base and the posterior fossa are normal. The spinal cord demonstrates normal signal intensity on all sequences. There is mild to moderate multilevel disc disease worst at C4-5 and C6-C7. No high grade canal stenosis. Nonspecific hyperintense signal within the david, incompletely evaluated. Varying degrees of neuroforaminal stenosis, difficult to evaluate due to motion. There are no annular fissures identified. Dilated fluid filled esophagus, incompletely evaluated. Normal signal voids are present in the vertebral arteries. There is no abnormal contrast enhancement. THORACIC SPINE: T4 right pedical, T5, and T8 vertebral body hemangiomas are noted. Mild straightening of the normal curvature of the thoracic spine. There is cortical irregularity and increased STIR signal in the inferior aspect of T10 and superior aspect of T11 with cortical erosion and soft tissue swelling anteriorly and enhancement. The T10-11 disc space T2 signal is increased. The spinal cord demonstrates normal signal intensity on all sequences. Limited views of the chest demonstrate left lower lobe atelectasis. The aorta is normal. There is mild to moderate multilevel facet arthropathy in the lower thoracic spine. There is no high-grade neuroforaminal stenosis. There is no high-grade spinal canal stenosis. LUMBAR SPINE: Redemonstrated chronic L1 compression fracture with postoperative changes of augmentation. There are no acute fractures. L5 hemangioma is noted. The conus medullaris terminates at the level of T12-L1. The distal spinal cord signal intensity is normal. Mild multilevel degenerative changes of the lumbar spine. There are no annular fissures identified. Limited views of the abdomen and pelvis show no soft tissue abnormality. The aorta is normal. There is no abnormal contrast enhancement. There is mild to moderate multilevel facet arthropathy. There is no high-grade neuroforaminal stenosis. There is no high-grade spinal canal stenosis. IMPRESSION: 1. Abnormal signal within the T10-T11 vertebral bodies and disc space with cortical erosion and paraspinal soft tissue edema, concerning for osteomyelitis discitis at this level. 2. Redemonstrated L1 vertebral body compression fracture with postoperative changes of augmentation. 3. Nonspecific hyperintense signal within the david, incompletely evaluated. Recommend dedicated brain MRI if clinically indicated. 4. Mild to moderate degenerative changes of the cervical, thoracic, and lumbar spine as above. Dictated by: Ariel Babb M.D. The radiology attending physician has personally reviewed this study, and had reviewed and/or edited this written report and agrees with it. Electronically signed by: Jessica Pagan M.D. Eliane Feng NP IMG MRI PROCEDURES Final Resul t * (ABNORMAL) Protime-INR (11/17/2024 5:40 AM CDT) PT 16.4(H) 9.7 - 13.0 sec INR 1.51(H) 0.90 - 1.20 [facility] Comment: Interpretive data Oral anticoagulant therapeutic ranges: Venous thromboembolism prophylaxis or treatment: 2.0-3.0 CARDIOLOGY Standard range: 2.0-3.0 High-intensity range: 2.5-3.5 Refer to indication-specific guidelines for appropriate target ranges for prosthetic heart valve replacement. Current interpretive data was last revised on 2019. Blood 11/17/2024 5:40 AM CDT 11/17/2024 6:01 AM CDT us Baltazar Manzano MD LAB BLOOD ORDERABLES F inal Result [facility] [place] [address] * (ABNORMAL) aPTT (11/17/2024 5:40 AM CDT) aPTT 72(H) 28 - 38 sec Comment: Interpretive Data Heparin therapeutic range: 66.0 - 100.0 seconds. Range based on correlation with therapeutic heparin activity range of 0.3 - 0.7 Units/mL. Current interpretive data was last revised on 2023. Blood 11/17/2024 5:40 AM CDT 11/17/2024 6:01 AM CDT Narrative [facility] - 11/17/2024 6:11 AM CDT STAT PTT timing: - Draw 6 hours after heparin infusion initiation - Draw 6 hours after every dose change until 2 consecutive PTTs are therapeutic - Once 2 consecutive PTTs are therapeutic, obtain with daily labs until infusion is discontinued - - Restart every 6 hour lab draws and follow instructions accordingly if PTT is outside of therapeutic range Do not draw lab from IV line that is actively infusing heparin. Use the opposite arm. If arm with actively infusing heparin must be used, pause the infusion for at least 2 minutes, and draw specimen below the IV site. For patients with a central venous catheter (CVC), lab must be drawn peripherally (not from CVC). us Ranulfo Gentile MD LAB BLOOD ORDERABLES Final R esult Performing Organization Address City/[facility]/ZIP Co de Phone Number [facility] [place] [address] * (ABNORMAL) eGFR (11/17/2024 1:33 AM CDT) Pathologist [facility] eGFR 41(L) >=60 mL/min/1. 73 m2 Comment: Interpretive Data Reference Interval Normal >/= 90 mL/min/1.73m2 Mildly decreased* 60 - 89 mL/min/1.73m2 Mildly to moderately decreased 45 - 59 mL/min/1.73m2 Moderately to severely decreased 30 - 44 mL/min/1.73m2 Severely decreased 15 - 29 mL/min/1.73m2 Kidney Failure < 15 mL/min/1.73m2 *Relative to young adult level Estimated glomerular filtration rate is determined by the 2020 CKD-EPI equation recommended by the [employer] (A Unifying Approach to GFR Estimation: Recommendations of the NKF-ASK Task Force on Reassessing the Inclusion of Race in Diagnosing Kidney Disease, JASN 2020). The CKD-EPI equation should not be used for patients with unstable renal function and has not been validated in children and those over 70. Current interpretive data was last reviewed 2021. Blood 11/17/2024 1:33 AM CDT 11/17/2024 1:46 AM CDT us Mariela Nagy MD LAB BLOOD ORDERABLES Final Result Performing Organization Address City/[facility]/ZIP Co de Phone Number [facility] Department [place] [address] * Differential, auto (11/17/2024 1:33 AM CDT) Pathologist [facility] Neutrophil abs 3.50 1.50 - 6.50 K/cumm Imm gran abs 0.02 0.00 - 0.10 K/cumm [facility] Lymphocyte abs 1.11 0.80 - 3.30 K/cumm [facility] Monocyte abs 0.41 0.20 - 0.80 K/cumm [facility] Eosinophil abs 0.19 0.00 - 0.50 K/cumm [facility] Basophil abs 0.03 0.00 - 0.10 K/cumm [facility] Neutrophil pct 66.5 % [facility] Comment: Interpretive Data Percent cell count reference ranges are not reported, since discordance with absolute values may lead to misinterpretation of CBC data. Current Interpretive Data was last revised on 2017. Imm gran pct 0.4 % [facility] Comment: Interpretive Data Percent cell count reference ranges are not reported, since discordance with absolute values may lead to misinterpretation of CBC data. Current Interpretive Data was last revised on 2017. Lymphocyte pct 21.1 % [facility] Comment: Interpretive Data Percent cell count reference ranges are not reported, since discordance with absolute values may lead to misinterpretation of CBC data. Current Interpretive Data was last revised on 2017. Monocyte pct 7.8 % [facility] Comment: Interpretive Data Percent cell count reference ranges are not reported, since discordance with absolute values may lead to misinterpretation of CBC data. Current Interpretive Data was last revised on 2017. Eosinophil pct 3.6 % [facility] Comment: Interpretive Data Percent cell count reference ranges are not reported, since discordance with absolute values may lead to misinterpretation of CBC data. Current Interpretive Data was last revised on 2017. Basophil pct 0.6 % [facility] Comment: Interpretive Data Percent cell count reference ranges are not reported, since discordance with absolute values may lead to misinterpretation of CBC data. Current Interpretive Data was last revised on 2017. Blood 11/17/2024 1:33 AM CDT 11/17/2024 1:47 AM CDT us Mariela Nagy MD LAB BLOOD ORDERABLES Final Result [facility] Department [place] [address] * (ABNORMAL) CBC with auto differential (11/17/2024 1:33 AM CDT) [facility] WBC 5.26 3.80 - 9.90 K/cumm Hgb 7.4(L) 11.9 - 15.5 g/dL [facility] Hct 24.0(L) 35.6 - 45.5 % [facility] Plt 175 150 - 400 K/cumm [facility] MPV 11.1 9.1 - 12.3 fL [facility] RBC 2.80(L) 3.90 - 5.20 M/cumm [facility] MCV 85.7 81.3 - 96.4 fL [facility] MCH 26.4(L) 27.1 - 33.3 pg [facility] MCHC 30.8(L) 32.3 - 35.7 g/dL [facility] RDW CV 14.6 11.1 - 14.9 % [facility] RDW SD 46.0 35.7 - 48.1 fL [facility] NRBC abs 0.00 0.00 - 0.01 K/cumm [facility] Blood 11/17/2024 1:33 AM CDT 11/17/2024 1:47 AM CDT us Mariela Nagy MD LAB BLOOD ORDERABLES Final Result [facility] Department [place] [address] * (ABNORMAL) Basic metabolic panel (11/17/2024 1:33 AM CDT) [facility] Sodium 142 135 - 145 mmol/L Potassium, pl 4.0 3.3 - 4.9 mmol/L [facility] Chloride 107 97 - 110 mmol/L [facility] Comment:Repeated and Verifie d CO2 26 22 - 32 mmol/L [facility] Anion gap 9 2 - 15 mmol/L [facility] Comment:Repeated and Verifie d BUN 16 6 - 25 mg/dL [facility] Creatinine 1.40(H) 0.60 - 1.10 mg/dL [facility] Glucose 120 70 - 199 mg/dL [facility] Comment: Interpretive Data Fasting glucose >/= 126 mg/dl is diagnostic for diabetes. Fasting is defined as no caloric intake for at least 8 hours. Fasting glucose between 100 mg/dl to 125 mg/dl is diagnostic of prediabetes. In a patient with classic symptoms of hyperglycemia or hyperglycemic crisis, a random glucose >/= 200 mg/dl is diagnostic for diabetes. In the absence of unequivocal hyperglycemia, results should be confirmed by repeat testing. The classification and Diagnosis of Diabetes Diabetes Care 2021; 46: S19-S40. Current interpretive data was last revised 2022. Calcium 9.1 8.5 - 10.3 mg/dL [facility] Blood 11/17/2024 1:33 AM CDT 11/17/2024 1:46 AM CDT Mariela Nagy MD LAB BLOOD ORDERABLES Final Result Performing Organization Address [facility]/ZIP Co de Phone Number [facility] [place] [address] * POCT glucose (11/17/2024 1:32 AM CDT) Pathologist [facility] Glucose, POC 125 70 - 199 mg/dL Blood 11/17/2024 1:32 AM CDT 11/17/2024 1:32 AM CDT Kandis Spencer MD LAB POCT ORDERABLES - DEVICE Fi nal Result Performing Organization Address City/[facility]/ZIP Co de Phone Number [facility] [place] [address] * (ABNORMAL) eGFR (11/16/2024 11:02 PM CDT) Pathologist [facility] eGFR 50(L) >=60 mL/min/1. 73 m2 Comment: Interpretive Data Reference Interval Normal >/= 90 mL/min/1.73m2 Mildly decreased* 60 - 89 mL/min/1.73m2 Mildly to moderately decreased 45 - 59 mL/min/1.73m2 Moderately to severely decreased 30 - 44 mL/min/1.73m2 Severely decreased 15 - 29 mL/min/1.73m2 Kidney Failure < 15 mL/min/1.73m2 *Relative to young adult level Estimated glomerular filtration rate is determined by the 2020 CKD-EPI equation recommended by the National [employer] (A Unifying Approach to GFR Estimation: Recommendations of the NKF-ASK Task Force on Reassessing the Inclusion of Race in Diagnosing Kidney Disease, JASN 2020). The CKD-EPI equation should not be used for patients with unstable renal function and has not been validated in children and those over 70. Current interpretive data was last reviewed 2021. Blood 11/16/2024 11:0 2 PM CDT 11/16/2024 11:25 PM CDT us Kandis Spencer MD LAB BLOOD ORDERABLES Final Resu lt Performing Organization Address City/[facility]/ZIP Co de Phone Number [facility] [place] [address] * Critical Result Callback Chemistry (11/16/2024 11:02 PM CDT) Date Notified [id number] Time Notified [facility] TestName Anion Gap [facility] Called/Read Back Cleo [facility] Credentials RN [facility] Called By beka [facility] Blood 11/16/2024 11:0 2 PM CDT 11/16/2024 11:25 PM CDT us Kandis Spencer MD LAB BLOOD ORDERABLES Final Resu lt [facility] [place] [address] * Differential, auto (11/16/2024 11:02 PM CDT) Neutrophil abs 2.84 1.50 - 6.50 K/cumm Imm gran abs 0.03 0.00 - 0.10 K/cumm [facility] Lymphocyte abs 0.87 0.80 - 3.30 K/cumm [facility] Monocyte abs 0.31 0.20 - 0.80 K/cumm [facility] Eosinophil abs 0.12 0.00 - 0.50 K/cumm [facility] Basophil abs 0.03 0.00 - 0.10 K/cumm [facility] Neutrophil pct 67.6 % [facility] Comment: Interpretive Data Percent cell count reference ranges are not reported, since discordance with absolute values may lead to misinterpretation of CBC data. Current Interpretive Data was last revised on 2017. Imm gran pct 0.7 % [facility] Comment: Interpretive Data Percent cell count reference ranges are not reported, since discordance with absolute values may lead to misinterpretation of CBC data. Current Interpretive Data was last revised on 2017. Lymphocyte pct 20.7 % [facility] Comment: Interpretive Data Percent cell count reference ranges are not reported, since discordance with absolute values may lead to misinterpretation of CBC data. Current Interpretive Data was last revised on 2017. Monocyte pct 7.4 % [facility] Comment: Interpretive Data Percent cell count reference ranges are not reported, since discordance with absolute values may lead to misinterpretation of CBC data. Current Interpretive Data was last revised on 2017. Eosinophil pct 2.9 % [facility] Comment: Interpretive Data Percent cell count reference ranges are not reported, since discordance with absolute values may lead to misinterpretation of CBC data. Current Interpretive Data was last revised on 2017. Basophil pct 0.7 % [facility] Comment: Interpretive Data Percent cell count reference ranges are not reported, since discordance with absolute values may lead to misinterpretation of CBC data. Current Interpretive Data was last revised on 2017. Blood 11/16/2024 11:0 2 PM CDT 11/16/2024 11:25 PM CDT us Kandis Spencer MD LAB BLOOD ORDERABLES Final Resu lt [facility] Department [place] [address] * (ABNORMAL) aPTT (11/16/2024 11:02 PM CDT) Pathologist [facility] aPTT 62(H) 28 - 38 sec Comment: Interpretive Data Heparin therapeutic range: 66.0 - 100.0 seconds. Range based on correlation with therapeutic heparin activity range of 0.3 - 0.7 Units/mL. Current interpretive data was last revised on 2023. Blood 11/16/2024 11:0 2 PM CDT 11/16/2024 11:27 PM CDT Narrative [facility] - 11/16/2024 11:37 PM CDT STAT PTT timing: - Draw 6 hours after heparin infusion initiation - Draw 6 hours after every dose change until 2 consecutive PTTs are therapeutic - Once 2 consecutive PTTs are therapeutic, obtain with daily labs until infusion is discontinued - - Restart every 6 hour lab draws and follow instructions accordingly if PTT is outside of therapeutic range Do not draw lab from IV line that is actively infusing heparin. Use the opposite arm. If arm with actively infusing heparin must be used, pause the infusion for at least 2 minutes, and draw specimen below the IV site. For patients with a central venous catheter (CVC), lab must be drawn peripherally (not from CVC). us Ranulfo Gentile MD LAB BLOOD ORDERABLES Final R esult [facility] Department [place] [address] * (ABNORMAL) Basic metabolic panel (11/16/2024 11:02 PM CDT) [facility] Sodium 137 135 - 145 mmol/L Potassium, pl 3.3 3.3 - 4.9 mmol/L [facility] Chloride 88(L) 97 - 110 mmol/L [facility] Comment:Repeated and Verifie d CO2 22 22 - 32 mmol/L [facility] Anion gap 27(C) 2 - 15 mmol/L [facility] Comment:Repeated and Verifie d BUN 14 6 - 25 mg/dL [facility] Creatinine 1.20(H) 0.60 - 1.10 mg/dL [facility] Glucose 69(L) 70 - 199 mg/dL [facility] Comment: Interpretive Data Fasting glucose >/= 126 mg/dl is diagnostic for diabetes. Fasting is defined as no caloric intake for at least 8 hours. Fasting glucose between 100 mg/dl to 125 mg/dl is diagnostic of prediabetes. In a patient with classic symptoms of hyperglycemia or hyperglycemic crisis, a random glucose >/= 200 mg/dl is diagnostic for diabetes. In the absence of unequivocal hyperglycemia, results should be confirmed by repeat testing. The classification and Diagnosis of Diabetes Diabetes Care 202; 46: S19-S40. Current interpretive data was last revised 2022. Calcium 7.7(L) 8.5 - 10.3 mg/dL [facility] Blood 11/16/2024 11:0 2 PM CDT 11/16/2024 11:25 PM CDT Knadis Spencer MD LAB BLOOD ORDERABLES Final Resu lt [facility] Department [place] [address] * (ABNORMAL) Protime-INR (11/16/2024 11:02 PM CDT) PT 18.7(H) 9.7 - 13.0 sec INR 1.71(H) 0.90 - 1.20 [facility] Comment: Interpretive data Oral anticoagulant therapeutic ranges: Venous thromboembolism prophylaxis or treatment: 2.0-3.0 CARDIOLOGY Standard range: 2.0-3.0 High-intensity range: 2.5-3.5 Refer to indication-specific guidelines for appropriate target ranges for prosthetic heart valve replacement. Current interpretive data was last revised on 2019. Blood 11/16/2024 11:0 2 PM CDT 11/16/2024 11:26 PM CDT Kandis Spencer MD LAB BLOOD ORDERABLES Final Resu lt Performing Organization Address [facility] Co de Phone Number [facility] [place] [address] * (ABNORMAL) CBC with auto differential (11/16/2024 11:02 PM CDT) WBC 4.20 3.80 - 9.90 K/cumm Hgb 7.1(L) 11.9 - 15.5 g/dL [facility] Hct 22.8(L) 35.6 - 45.5 % [facility] Plt 160 150 - 400 K/cumm [facility] MPV 11.1 9.1 - 12.3 fL [facility] RBC 2.67(L) 3.90 - 5.20 M/cumm [facility] MCV 85.4 81.3 - 96.4 fL [facility] MCH 26.6(L) 27.1 - 33.3 pg [facility] MCHC 31.1(L) 32.3 - 35.7 g/dL [facility] RDW CV 14.6 11.1 - 14.9 % [facility] RDW SD 45.5 35.7 - 48.1 fL [facility] NRBC abs 0.00 0.00 - 0.01 K/cumm [facility] Blood 11/16/2024 11:0 2 PM CDT 11/16/2024 11:25 PM CDT us Kandis Spencer MD LAB BLOOD ORDERABLES Final Resu lt Performing Organization Address [facility] Co de Phone Number [facility] [place] [address] * Magnesium (11/16/2024 11:02 PM CDT) Pathologist [facility] Magnesium 1.8 1.4 - 2.5 mg/dL Blood 11/16/2024 11:0 2 PM CDT 11/16/2024 11:25 PM CDT us Ranulfo Gentile MD LAB BLOOD ORDERABLES Final R esult [facility] Department [place] [address] * Blood culture Blood (11/16/2024 11:31 AM CDT) Report Final Report: No growth Blood 11/16/2024 11:3 1 AM CDT 11/16/2024 11:46 AM CDT Narrative [facility] - 11/20/2024 12:00 PM CDT Collection->Peripheral 1. Blood cultures are incubated for 4 days on a continuously monitored blood culture system. The first report of a negative culture is issued within 24 hours of receipt of the specimen in the laboratory. 2. Positive culture results are reported as soon as they are detected. 3. The most important factor for detection of microbes in the setting of bloodstream infection is the volume of blood submitted for culture. Failure to collect an optimal blood volume can result in false negative blood cultures. 4. For pediatric patients, the recommended blood volume to collect follows a weight based strategy. See the electronic test catalog for collection instructions. 5. For positive blood cultures, a rapid molecular test may be performed for organism identification using the jm ePlex blood culture identification panel for gram positive (BCID-GP) and gram negative (BCID-GN) organisms. This nucleic acid amplification test detects microbial DNA in positive blood culture broth. This assay has been cleared by the [place] Food and Drug Administration and its performance characteristics have been verified by the [facility]. For questions about this culture, contact the Microbiology Laboratory at [phone]. Interpretive data was last revised on 24. us Kandis Spencer MD LAB MICROBIOLOGY - GENERAL [facility] Final Result Performing Organization Address City/[facility]/ZIP Co de Phone Number [facility] [place] [address] * Blood culture Blood (11/16/2024 11:31 AM CDT) Report Final Report: No growth Blood 11/16/2024 11:3 1 AM CDT 11/16/2024 11:46 AM CDT Narrative [facility] - 11/20/2024 12:00 PM CDT Collection->Peripheral 1. Blood cultures are incubated for 4 days on a continuously monitored blood culture system. The first report of a negative culture is issued within 24 hours of receipt of the specimen in the laboratory. 2. Positive culture results are reported as soon as they are detected. 3. The most important factor for detection of microbes in the setting of bloodstream infection is the volume of blood submitted for culture. Failure to collect an optimal blood volume can result in false negative blood cultures. 4. For pediatric patients, the recommended blood volume to collect follows a weight based strategy. See the electronic test catalog for collection instructions. 5. For positive blood cultures, a rapid molecular test may be performed for organism identification using the jm ePlex blood culture identification panel for gram positive (BCID-GP) and gram negative (BCID-GN) organisms. This nucleic acid amplification test detects microbial DNA in positive blood culture broth. This assay has been cleared by the [place] Food and Drug Administration and its performance characteristics have been verified by the [facility]. For questions about this culture, contact the Microbiology Laboratory at [phone]. Interpretive data was last revised on 24. Kandis Spencer MD LAB MICROBIOLOGY - [facility] Final Result [facility] Department [place] [address] * Differential, auto (11/15/2024 11:46 PM CDT) [facility] Neutrophil abs 2.81 1.50 - 6.50 K/cumm Imm gran abs 0.02 0.00 - 0.10 K/cumm [facility] Lymphocyte abs 1.22 0.80 - 3.30 K/cumm [facility] Monocyte abs 0.31 0.20 - 0.80 K/cumm [facility] Eosinophil abs 0.09 0.00 - 0.50 K/cumm [facility] Basophil abs 0.02 0.00 - 0.10 K/cumm [facility] Neutrophil pct 63.0 % [facility] Comment: Interpretive Data Percent cell count reference ranges are not reported, since discordance with absolute values may lead to misinterpretation of CBC data. Current Interpretive Data was last revised on 2017. Imm gran pct 0.4 % [facility] Comment: Interpretive Data Percent cell count reference ranges are not reported, since discordance with absolute values may lead to misinterpretation of CBC data. Current Interpretive Data was last revised on 2017. Lymphocyte pct 27.3 % [facility] Comment: Interpretive Data Percent cell count reference ranges are not reported, since discordance with absolute values may lead to misinterpretation of CBC data. Current Interpretive Data was last revised on 2017. Monocyte pct 6.9 % [facility] Comment: Interpretive Data Percent cell count reference ranges are not reported, since discordance with absolute values may lead to misinterpretation of CBC data. Current Interpretive Data was last revised on 2017. Eosinophil pct 2.0 % [facility] Comment: Interpretive Data Percent cell count reference ranges are not reported, since discordance with absolute values may lead to misinterpretation of CBC data. Current Interpretive Data was last revised on 2017. Basophil pct 0.4 % [facility] Comment: Interpretive Data Percent cell count reference ranges are not reported, since discordance with absolute values may lead to misinterpretation of CBC data. Current Interpretive Data was last revised on 2017. Blood 11/15/2024 11:4 6 PM CDT 11/16/2024 12:46 AM CDT us Kandis Spencer MD LAB BLOOD ORDERABLES Final Resu lt [facility] Department of Laboratories [place], [place] [id number] * (ABNORMAL) Protime-INR (11/15/2024 11:46 PM CDT) PT 16.2(H) 9.7 - 13.0 sec INR 1.49(H) 0.90 - 1.20 [facility] Comment: Interpretive data Oral anticoagulant therapeutic ranges: Venous thromboembolism prophylaxis or treatment: 2.0-3.0 CARDIOLOGY Standard range: 2.0-3.0 High-intensity range: 2.5-3.5 Refer to indication-specific guidelines for appropriate target ranges for prosthetic heart valve replacement. Current interpretive data was last revised on 2019. Blood 11/15/2024 11:4 6 PM CDT 11/15/2024 11:54 PM CDT us Kandis Spencer MD LAB BLOOD ORDERABLES Final Resu lt [facility] [place] [address] * (ABNORMAL) aPTT (11/15/2024 11:46 PM CDT) aPTT 77(H) 28 - 38 sec Comment: Interpretive Data Heparin therapeutic range: 66.0 - 100.0 seconds. Range based on correlation with therapeutic heparin activity range of 0.3 - 0.7 Units/mL. Current interpretive data was last revised on 2023. Blood 11/15/2024 11:4 6 PM CDT 11/15/2024 11:54 PM CDT [facility]ative [facility] - 11/16/2024 12:34 AM CDT STAT PTT timing: - Draw 6 hours after heparin infusion initiation - Draw 6 hours after every dose change until 2 consecutive PTTs are therapeutic - Once 2 consecutive PTTs are therapeutic, obtain with daily labs until infusion is discontinued - - Restart every 6 hour lab draws and follow instructions accordingly if PTT is outside of therapeutic range Do not draw lab from IV line that is actively infusing heparin. Use the opposite arm. If arm with actively infusing heparin must be used, pause the infusion for at least 2 minutes, and draw specimen below the IV site. For patients with a central venous catheter (CVC), lab must be drawn peripherally (not from CVC). us Ranulfo Gentile MD LAB BLOOD ORDERABLES Final R esult Performing Organization Address [facility] Co de Phone Number [facility] [place] [address] * (ABNORMAL) CBC with auto differential (11/15/2024 11:46 PM CDT) WBC 4.47 3.80 - 9.90 K/cumm Hgb 8.6(L) 11.9 - 15.5 g/dL [facility] Hct 27.5(L) 35.6 - 45.5 % [facility] Plt 172 150 - 400 K/cumm [facility] MPV 11.8 9.1 - 12.3 fL [facility] RBC 3.21(L) 3.90 - 5.20 M/cumm [facility] MCV 85.7 81.3 - 96.4 fL [facility] MCH 26.8(L) 27.1 - 33.3 pg [facility] MCHC 31.3(L) 32.3 - 35.7 g/dL [facility] RDW CV 14.6 11.1 - 14.9 % [facility] RDW SD 45.6 35.7 - 48.1 fL [facility] NRBC abs 0.00 0.00 - 0.01 K/cumm [facility] Blood 11/15/2024 11:4 6 PM CDT 11/16/2024 12:46 AM CDT us Kandis Spencer MD LAB BLOOD ORDERABLES Final Resu lt Performing Organization Address [facility] Co de Phone Number [facility] Department [place] [address] * Magnesium (11/15/2024 11:46 PM CDT) Pathologist [facility] Magnesium 2.4 1.4 - 2.5 mg/dL Blood 11/15/2024 11:4 6 PM CDT 11/16/2024 12:08 AM CDT us Ranulfo Gentile MD LAB BLOOD ORDERABLES Final R esult Performing Organization Address City/[facility]/ZIP Co de Phone Number [facility] Department [place] [address] * Blood culture Blood Arm, right (11/15/2024 1:14 PM CDT) Report Final Report: No growth Blood (Arm, right) 11/15/2024 1:14 PM CDT 11/15/2024 1:24 PM CDT Narrative [facility] - 11/19/2024 4:00 PM CDT Collection->Peripheral 1. Blood cultures are incubated for 4 days on a continuously monitored blood culture system. The first report of a negative culture is issued within 24 hours of receipt of the specimen in the laboratory. 2. Positive culture results are reported as soon as they are detected. 3. The most important factor for detection of microbes in the setting of bloodstream infection is the volume of blood submitted for culture. Failure to collect an optimal blood volume can result in false negative blood cultures. 4. For pediatric patients, the recommended blood volume to collect follows a weight based strategy. See the electronic test catalog for collection instructions. 5. For positive blood cultures, a rapid molecular test may be performed for organism identification using the jm ePlex blood culture identification panel for gram positive (BCID-GP) and gram negative (BCID-GN) organisms. This nucleic acid amplification test detects microbial DNA in positive blood culture broth. This assay has been cleared by the [place] Food and Drug Administration and its performance characteristics have been verified by the [facility]. For questions about this culture, contact the Microbiology Laboratory at [phone]. Interpretive data was last revised on 24. us Kandis Spencer MD LAB MICROBIOLOGY - GENERAL ANDRE FORDE Final Result Performing Organization Address City/[facility]/ZIP Co de Phone Number [facility] Department [place] [address] * (ABNORMAL) eGFR (11/15/2024 1:08 PM CDT) eGFR 42(L) >=60 mL/min/1. 73 m2 Comment: Interpretive Data Reference Interval Normal >/= 90 mL/min/1.73m2 Mildly decreased* 60 - 89 mL/min/1.73m2 Mildly to moderately decreased 45 - 59 mL/min/1.73m2 Moderately to severely decreased 30 - 44 mL/min/1.73m2 Severely decreased 15 - 29 mL/min/1.73m2 Kidney Failure < 15 mL/min/1.73m2 *Relative to young adult level Estimated glomerular filtration rate is determined by the 2020 CKD-EPI equation recommended by the National Kidney Foundation (A Unifying Approach to GFR Estimation: Recommendations of the NKF-ASK Task Force on Reassessing the Inclusion of Race in Diagnosing Kidney Disease, JASN 2020). The CKD-EPI equation should not be used for patients with unstable renal function and has not been validated in children and those over 70. Current interpretive data was last reviewed 2021. Blood 11/15/2024 1:08 PM CDT 11/15/2024 1:29 PM CDT us Lia Ye MD LAB BLOOD ORDERABL ES Final Result [facility] Department [place] [address] * (ABNORMAL) Basic metabolic panel (11/15/2024 1:08 PM CDT) Pathologist [facility] Sodium 140 135 - 145 mmol/L Potassium, pl 4.2 3.3 - 4.9 mmol/L [facility] Chloride 106 97 - 110 mmol/L [facility] CO2 26 22 - 32 mmol/L [facility] Anion gap 8 2 - 15 mmol/L [facility] BUN 16 6 - 25 mg/dL [facility] Creatinine 1.38(H) 0.60 - 1.10 mg/dL [facility] Glucose 117 70 - 199 mg/dL [facility] Comment: Interpretive Data Fasting glucose >/= 126 mg/dl is diagnostic for diabetes. Fasting is defined as no caloric intake for at least 8 hours. Fasting glucose between 100 mg/dl to 125 mg/dl is diagnostic of prediabetes. In a patient with classic symptoms of hyperglycemia or hyperglycemic crisis, a random glucose >/= 200 mg/dl is diagnostic for diabetes. In the absence of unequivocal hyperglycemia, results should be confirmed by repeat testing. The classification and Diagnosis of Diabetes Diabetes Care 2021; 46: S19-S40. Current interpretive data was last revised 2022. Calcium 9.2 8.5 - 10.3 mg/dL [facility] Blood 11/15/2024 1:08 PM CDT 11/15/2024 1:29 PM CDT us Lia Ye MD LAB BLOOD ORDERABL ES Final Result [facility] Department [place] [address] * Blood culture Blood Arm, left (11/15/2024 1:08 PM CDT) Report Final Report: No growth Blood (Arm, left) 11/15/2024 1:08 PM CDT 11/15/2024 1:24 PM CDT Narrative [facility] - 11/19/2024 4:00 PM CDT Collection->Peripheral 1. Blood cultures are incubated for 4 days on a continuously monitored blood culture system. The first report of a negative culture is issued within 24 hours of receipt of the specimen in the laboratory. 2. Positive culture results are reported as soon as they are detected. 3. The most important factor for detection of microbes in the setting of bloodstream infection is the volume of blood submitted for culture. Failure to collect an optimal blood volume can result in false negative blood cultures. 4. For pediatric patients, the recommended blood volume to collect follows a weight based strategy. See the electronic test catalog for collection instructions. 5. For positive blood cultures, a rapid molecular test may be performed for organism identification using the jm ePlex blood culture identification panel for gram positive (BCID-GP) and gram negative (BCID-GN) organisms. This nucleic acid amplification test detects microbial DNA in positive blood culture broth. This assay has been cleared by the [place] Food and Drug Administration and its performance characteristics have been verified by the [facility]. For questions about this culture, contact the Microbiology Laboratory at [phone]. Interpretive data was last revised on 24. Lia Ye MD LAB MICROBIOLOGY - GENERAL ORDERABLES Final Result Performing Organization Address [facility] Co de Phone Number [facility] Department [place] [address] * (ABNORMAL) Protime-INR (11/15/2024 10:11 AM CDT) PT 18.3(H) 9.7 - 13.0 sec INR 1.68(H) 0.90 - 1.20 [facility] Comment: Interpretive data Oral anticoagulant therapeutic ranges: Venous thromboembolism prophylaxis or treatment: 2.0-3.0 CARDIOLOGY Standard range: 2.0-3.0 High-intensity range: 2.5-3.5 Refer to indication-specific guidelines for appropriate target ranges for prosthetic heart valve replacement. Current interpretive data was last revised on 2019. Blood 11/15/2024 10:1 1 AM CDT 11/15/2024 10:25 AM CDT us Kandis Spencer MD LAB BLOOD ORDERABLES Final Resu lt Performing Organization Address [facility] Co de Phone Number [facility] Department [place] [address] * (ABNORMAL) eGFR (11/14/2024 10:03 PM CDT) eGFR 35(L) >=60 mL/min/1. 73 m2 Comment: Interpretive Data Reference Interval Normal >/= 90 mL/min/1.73m2 Mildly decreased* 60 - 89 mL/min/1.73m2 Mildly to moderately decreased 45 - 59 mL/min/1.73m2 Moderately to severely decreased 30 - 44 mL/min/1.73m2 Severely decreased 15 - 29 mL/min/1.73m2 Kidney Failure < 15 mL/min/1.73m2 *Relative to young adult level Estimated glomerular filtration rate is determined by the 2020 CKD-EPI equation recommended by the National Kidney Foundation (A Unifying Approach to GFR Estimation: Recommendations of the NKF-ASK Task Force on Reassessing the Inclusion of Race in Diagnosing Kidney Disease, JASN 2020). The CKD-EPI equation should not be used for patients with unstable renal function and has not been validated in children and those over 70. Current interpretive data was last reviewed 2021. Blood 11/14/2024 10:0 3 PM CDT 11/14/2024 10:40 PM CDT us Ranulfo Gentile MD LAB BLOOD ORDERABLES Final R esult Performing Organization Address [facility] Co de Phone Number [facility] Department [place] [address] * Phosphorus (11/14/2024 10:03 PM CDT) Phosphorus, pl 3.8 2.3 - 4.5 mg/dL Blood 11/14/2024 10:0 3 PM CDT 11/14/2024 10:40 PM CDT us Kandis Spencer MD LAB BLOOD ORDERABLES Final Resu lt Performing Organization Address [facility] Co de Phone Number [facility] [place] [address] * Magnesium (11/14/2024 10:03 PM CDT) Magnesium 2.3 1.4 - 2.5 mg/dL Blood 11/14/2024 10:0 3 PM CDT 11/14/2024 10:40 PM CDT us Ranulfo Gentile MD LAB BLOOD ORDERABLES Final R esult Performing Organization Address [facility] Co de Phone Number [facility] Department [place] [address] * (ABNORMAL) CBC without differential (11/14/2024 10:03 PM CDT) [facility] WBC 4.52 3.80 - 9.90 K/cumm Hgb 7.9(L) 11.9 - 15.5 g/dL [facility] Hct 24.8(L) 35.6 - 45.5 % [facility] Plt 153 150 - 400 K/cumm [facility] MPV 11.7 9.1 - 12.3 fL [facility] RBC 2.88(L) 3.90 - 5.20 M/cumm [facility] MCV 86.1 81.3 - 96.4 fL [facility] MCH 27.4 27.1 - 33.3 pg [facility] MCHC 31.9(L) 32.3 - 35.7 g/dL [facility] RDW CV 14.6 11.1 - 14.9 % [facility] RDW SD 45.8 35.7 - 48.1 fL [facility] NRBC abs 0.00 0.00 - 0.01 K/cumm [facility] Blood 11/14/2024 10:0 3 PM CDT 11/14/2024 10:43 PM CDT us Ranulfo Gentile MD LAB BLOOD ORDERABLES Final R esult [facility] Department [place] [address] * (ABNORMAL) Basic metabolic panel (11/14/2024 10:03 PM CDT) [facility] Sodium 141 135 - 145 mmol/L Potassium, pl 4.0 3.3 - 4.9 mmol/L [facility] Chloride 105 97 - 110 mmol/L [facility] CO2 26 22 - 32 mmol/L [facility] Anion gap 10 2 - 15 mmol/L [facility] BUN 18 6 - 25 mg/dL [facility] Creatinine 1.60(H) 0.60 - 1.10 mg/dL [facility] Glucose 108 70 - 199 mg/dL [facility] Comment: Interpretive Data Fasting glucose >/= 126 mg/dl is diagnostic for diabetes. Fasting is defined as no caloric intake for at least 8 hours. Fasting glucose between 100 mg/dl to 125 mg/dl is diagnostic of prediabetes. In a patient with classic symptoms of hyperglycemia or hyperglycemic crisis, a random glucose >/= 200 mg/dl is diagnostic for diabetes. In the absence of unequivocal hyperglycemia, results should be confirmed by repeat testing. The classification and Diagnosis of Diabetes Diabetes Care 2021; 46: S19-S40. Current interpretive data was last revised 2022. Calcium 9.2 8.5 - 10.3 mg/dL [facility] Blood 11/14/2024 10:0 3 PM CDT 11/14/2024 10:40 PM CDT us Ranulfo Gentile MD LAB BLOOD ORDERABLES Final R esult Performing Organization Address [facility] Co de Phone Number [facility] Department [place] [address] * (ABNORMAL) aPTT (11/14/2024 6:53 PM CDT) aPTT 98(H) 28 - 38 sec Comment: Interpretive Data Heparin therapeutic range: 66.0 - 100.0 seconds. Range based on correlation with therapeutic heparin activity range of 0.3 - 0.7 Units/mL. Current interpretive data was last revised on 2023. Blood 11/14/2024 6:53 PM CDT 11/14/2024 7:48 PM CDT us Kandis Spencer MD LAB BLOOD ORDERABLES Final Resu lt Performing Organization Address City/[facility]/ZIP Co de Phone Number [facility] [place] [address] * (ABNORMAL) aPTT (11/14/2024 12:12 PM CDT) [facility] aPTT 77(H) 28 - 38 sec Comment: Interpretive Data Heparin therapeutic range: 66.0 - 100.0 seconds. Range based on correlation with therapeutic heparin activity range of 0.3 - 0.7 Units/mL. Current interpretive data was last revised on 2023. Blood 11/14/2024 12:1 2 PM CDT 11/14/2024 12:26 PM CDT [facility] - 11/14/2024 12:53 PM CDT STAT PTT timing: - Draw 6 hours after heparin infusion initiation - Draw 6 hours after every dose change until 2 consecutive PTTs are therapeutic - Once 2 consecutive PTTs are therapeutic, obtain with daily labs until infusion is discontinued - - Restart every 6 hour lab draws and follow instructions accordingly if PTT is outside of therapeutic range Do not draw lab from IV line that is actively infusing heparin. Use the opposite arm. If arm with actively infusing heparin must be used, pause the infusion for at least 2 minutes, and draw specimen below the IV site. For patients with a central venous catheter (CVC), lab must be drawn peripherally (not from CVC). us Ranulfo Gentile MD LAB BLOOD ORDERABLES Final R esult [facility] Department [place] [address] * ECG 12 lead (11/14/2024 10:29 AM CDT) [facility] Ventricular Rate EKG/Min 78 BPM [facility] Atrial Rate 78 BPM [facility] QRS-Interval (MSEC) 144 ms [facility] QT-Interval (MSEC) 468 ms [facility] QTc 533 ms [facility] P Lutz 53 degrees [facility] R Lutz 261 degrees [facility] T Lutz 45 degrees [facility] 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 AV dual-paced complexes Abnormal ECG No previous ECGs available Confirmed by MARVIN POMPA M.D ([id number]) on 11/15/2024 3:25:47 PM [facility] 11/14/2024 10:2 9 AM CDT 11/15/2024 3:25 PM CDT us Kandis Spencer MD ECG ORDERABLES Final Result [facility] * TRANSTHORACIC ECHO (TTE) COMPLETE W DOPPLER/CF W CONTRAST (11/14/2024 8:41 AM CDT) EF Mod BP 67 % CONS SCIMAGE Anatomical Region Laterality Modality Ultrasound 11/14/2024 7:20 AM CDT Narrative 11/14/2024 1:03 PM CDT [facility] Cardiac [place] [address] Transthoracic Echocardiographic Report Patient Name: KENDAL CISNEROS J : 1955 (69y 10m) Gender: F Study Date: 11/14/2024 07:20:46 Ht(Inch): 62 Wt(Lb): 138.89 BSA: 1.66 Veneer Drier: Michelle Kaminski RDCS Location: [id number] Order Provider: RANULFO GENTILE Heart Rate: 74 BMI: 25.4 BP: 102 / 62 Ref Provider: RANULFO GENTILE PROCEDURES: Echocardiographic Report: Transthoracic complete echo with strain imaging and contrast, 2D, spectral and tissue Doppler, color flow Doppler, M-mode. Contrast: Contrast Enhancement was Employed: After initial imaging due to sub- optimal quality related to co-morbidity defined by patient's body habitus and due to suboptimal image quality with inadequate visualization of at least 2 of 16 LV wall segments in any view after initial imaging. Perflutren contrast was administered using the volume necessary to obtain adequate images. 1.1 ml Optison Administered, (1.9 ml wasted). INDICATIONS: Source eval given c/f thoracic discitis. CONCLUSIONS: 1. Concentric LV remodeling. Normal left ventricular systolic function. The Ejection Fraction (Garsia's) is measured at 67 %. Left ventricular diastolic function is indeterminate due to mitral valve repair or replacement. The average global longitudinal strain is abnormal. The LV global strain is: -14.9 %. No left ventricular thrombus visualized. 2. There are no regional wall motion abnormalities. 3. Right ventricular dilatation. Mild right ventricular hypokinesis. Wire noted in the right heart. 4. Status post mitral valve repair with annuloplasty ring. Mild residual mitral insufficiency. 5. 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 No paravalvular aortic regurgitation. The aortic prosthesis demonstrates normal transvalvular gradient for valve type and size. 6. Mild tricuspid regurgitation with normal estimated pulmonary artery systolic pressure. 7. Normal aortic root and ascending aorta size when indexed to body surface area. 8. No pericardial effusion. ATTESTATION: I have personally reviewed and interpreted this study without fellow or resident. - DISCLAIMER: The study images and the final report will be retained in the patient chart by the Echo Laboratory for the legally required time period. This chart constitutes the legal record of any testing performed. FINDINGS: Left Ventricle: Concentric LV remodeling. Normal left ventricular systolic function. The Ejection Fraction (Garsia's) is measured at 67 %. Left ventricular diastolic function is indeterminate due to mitral valve repair or replacement. The average global longitudinal strain is abnormal. The LV global strain is: -14.9 %. No left ventricular thrombus visualized. Regional Wall Motion: There are no regional wall motion abnormalities. Right Ventricle: Right ventricular dilatation. Mild right ventricular hypokinesis. Wire noted in the right heart. The average right ventricular strain is abnormal at - 16.5% (normal is more negative than -17%). Left Atrium: The left atrium is normal in size. Right Atrium: Right atrial dilatation. Mitral Valve: Mild mitral valve regurgitation. The mean transmitral gradient is: 3 mmHg. Specific MV Structure Abnormalities: Status post mitral valve repair with annuloplasty ring. Aortic Valve: The mean transaortic gradient is 7 mmHg. The aortic valve area by the continuity equation (using VTI) is 2.53 cm2. Aortic valve dimensionless index is 0.81. 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 The aortic valve prosthesis appears well seated. The aortic prosthesis demonstrates normal leaflet motion. No paravalvular aortic regurgitation. The aortic prosthesis demonstrates normal transvalvular gradient for valve type and size. Tricuspid Valve: Normal tricuspid valve structure. Mild tricuspid regurgitation. No tricuspid valve stenosis. Pulmonic Valve: Normal pulmonic valve structure. No pulmonic regurgitation. No pulmonic valve stenosis present. Pericardium: Normal pericardium without pericardial effusion. Aorta: Normal aortic root size at sinuses of Valsalva. Normal aortic root size when indexed. The ascending aorta is normal in size when indexed. IVC: IVC is normal in size. PASP: Normal estimated pulmonary artery systolic pressure. MEASUREMENTS: 2D/MM Value Range Doppler Value Range LVIDd 2D 3.86 cm [ 3.80 - 5.20 ] AV Peak Jenaro 1.9 m/s [ 1.0 - 1.7 ] LVIDs 2D 2.46 cm [ 2.20 - 3.50 ] AV Peak PG 14.44 mmHg IVSd 2D 0.95 cm [ 0.60 - 0.90 ] AV Mean PG 7 mmHg LVPWd 2D 0.88 cm [ 0.60 - 0.90 ] AV VTI 35.5 cm LV Thickness Ratio 1.1 LVOT Peak Jenaro 1.6 m/s [ 0.7 - 1.1 ] LV FS 2D 36.11 % [ 27.00 - 45.00 ] LVOT Peak PG 10.24 mmHg LV Mass 2D 107.86 g LVOT Mean PG 4 mmHg LV Mass Index 2D 64.98 g/m2 LVOT VTI 28.9 cm RWT 0.46 LVOT Diam 1.99 cm EDV Mod BP 117.47 ml [ 46.00 - 106.00 ] ONEL VTI 2.53 cm2 LV EDV Index 70.77 ml/m2 LVOT/AV VTI 0.81 - Dimensionless index (DVI) ESV Mod BP 39.06 ml [ 14.00 - 42.00 ] MV E Peak Jenaro 1.3 m/s [ 0.6 - 1.3 ] EF Mod BP 67 % [ 54 - 74 ] MV A Peak Jenaro 1.3 m/s [ 1.0 - 1.2 ] LV GLS -14.9 % [ -25.0 - -18.0 ] MV E/A 1.0 ratio [ 0.8 - 1.5 ] LA Length 4C 5.64 cm MV Peak Jenaro 1.4 m/s LA Length 2C 5.09 cm MV Peak PG 7.84 mmHg LA Volume BP 53.86 ml MV Mean PG 3 mmHg LA Volume Index 32.45 ml/m2 [ 16.00 - 34.00 ] MV VTI 46.1 cm RV Base Dimen 2D 4.9 cm [ 2.5 - 4.2 ] MV Decel Time 205.78 msec [ 104.00 - 258.00 ] TAPSE 1.49 cm [ 1.71 - 5.00 ] Med E` Jenaro 4.8 cm/sec [ 8.0 - 25.0 ] RA Volume 80.29 ml Lat E` Jenaro 5.7 cm/sec [ 10.0 - 25.0 ] RA Volume Index 48.37 ml/m2 Average E/E` 24.76 AoR Diam 2D 2.80 cm [ 2.70 - 3.70 ] RV S` 8.51 cm/sec Ao Root Index 1.69 cm/m2 [ 1.00 - 2.00 ] TR Peak Jenaro 2.2 m/s [ 1.0 - 2.8 ] Asc Ao Diam 2D 3.13 cm TR Peak PG 19.4 mmHg Asc Ao Index 1.89 cm/m2 PV Peak Jenaro 1.0 m/s [ 0.4 - 0.8 ] PV Peak PG 4.00 mmHg Electronically Signed By: Ryan Stephenson MD 11/14/2024 13:02:47 CDT Procedure Note Ryan Stephenson MD - 11/14/2024 [facility] [place] [address] Transthoracic Echocardiographic Report Patient Name: KENDAL CISNEROS J : 1955 (69y 10m) Gender: F Study Date: 11/14/2024 07:20:46 Ht(Inch): 62 Wt(Lb): 138.89 BSA: 1.66 Veneer Drier: Michelle Kaminski RDCS Location: [id number] Order Provider:YARELIRANULFO Heart Rate: 74 BMI: 25.4 BP: 102 / 62 Ref Provider: RANULFO GENTILE PROCEDURES: Echocardiographic Report: Transthoracic complete echo with strain imagingand contrast, 2D, spectral and tissue Doppler, color flow Doppler, M-mode. Contrast: Contrast Enhancement was Employed: After initial imaging due tosub- optimal quality related to co-morbidity defined by patient's body habitus and dueto suboptimal image quality with inadequate visualization of at least 2 of 16 LV wallsegments in any view after initial imaging. Perflutren contrast was administered using thevolume necessary to obtain adequate images. 1.1 ml Optison Administered, (1.9 mlwasted). INDICATIONS: Source eval given c/f thoracic discitis. CONCLUSIONS: 1. Concentric LV remodeling. Normal left ventricular systolic function.The Ejection Fraction (Garsia's) is measured at 67 %. Left ventricular diastolicfunction is indeterminate due to mitral valve repair or replacement. The averageglobal longitudinal strain is abnormal. The LV global strain is: -14.9 %. No left ventricularthrombus visualized. 2. There are no regional wall motion abnormalities. 3. Right ventricular dilatation. Mild right ventricular hypokinesis. Wirenoted in the right heart. 4. Status post mitral valve repair with annuloplasty ring. Mild residualmitral insufficiency. 5. A bileaflet tilting disk mechanical prosthetic valve is present in theaortic position. No paravalvular aortic regurgitation. The aortic prosthesisdemonstrates normal transvalvular gradient for valve type and size. 6. Mild tricuspid regurgitation with normal estimated pulmonary arterysystolic pressure. 7. Normal aortic root and ascending aorta size when indexed to bodysurface area. 8. No pericardial effusion. ATTESTATION: I have personally reviewed and interpreted this study without fellow orresident. - DISCLAIMER: The study images and the final report will be retained in the patientchart by the Echo Laboratory for the legally required time period. This chart constitutesthe legal record of any testing performed. FINDINGS: Left Ventricle: Concentric LV remodeling. Normal left ventricular systolicfunction. The Ejection Fraction (Garsia's) is measured at 67 %. Left ventriculardiastolic function is indeterminate due to mitral valve repair or replacement. The averageglobal longitudinal strain is abnormal. The LV global strain is: -14.9 %. No left ventricularthrombus visualized. Regional Wall Motion: There are no regional wall motion abnormalities. Right Ventricle: Right ventricular dilatation. Mild right ventricularhypokinesis. Wire noted in the right heart. The average right ventricular strain is abnormalat - 16.5% (normal is more negative than -17%). Left Atrium: The left atrium is normal in size. Right Atrium: Right atrial dilatation. Mitral Valve: Mild mitral valve regurgitation. The mean transmitralgradient is: 3 mmHg. Specific MV Structure Abnormalities: Status post mitral valve repair withannuloplasty ring. Aortic Valve: The mean transaortic gradient is 7 mmHg. The aortic valvearea by the continuity equation (using VTI) is 2.53 cm2. Aortic valve dimensionlessindex is 0.81. A bileaflet tilting disk mechanical prosthetic valve is present in theaortic position. The aortic valve prosthesis appears well seated. The aortic prosthesisdemonstrates normal leaflet motion. No paravalvular aortic regurgitation. The aorticprosthesis demonstrates normal transvalvular gradient for valve type and size. Tricuspid Valve: Normal tricuspid valve structure. Mild tricuspidregurgitation. No tricuspid valve stenosis. Pulmonic Valve: Normal pulmonic valve structure. No pulmonicregurgitation. No pulmonic valve stenosis present. Pericardium: Normal pericardium without pericardial effusion. Aorta: Normal aortic root size at sinuses of Valsalva. Normal aortic rootsize when indexed. The ascending aorta is normal in size when indexed. IVC: IVC is normal in size. PASP: Normal estimated pulmonary artery systolic pressure. MEASUREMENTS: 2D/MM Value Range DopplerValue Range LVIDd 2D 3.86 cm [ 3.80 - 5.20 ] AV Peak Vel1.9 m/s [ 1.0 - 1.7 ] LVIDs 2D 2.46 cm [ 2.20 - 3.50 ] AV Peak PG14.44 mmHg IVSd 2D 0.95 cm [ 0.60 - 0.90 ] AV Mean PG7 mmHg LVPWd 2D 0.88 cm [ 0.60 - 0.90 ] AV VTI35.5 cm LV Thickness Ratio 1.1 LVOT Peak Vel1.6 m/s [ 0.7 - 1.1 ] LV FS 2D 36.11 % [ 27.00 - 45.00 ] LVOT Peak PG10.24 mmHg LV Mass 2D 107.86 g LVOT Mean PG4 mmHg LV Mass Index 2D 64.98 g/m2 LVOT VTI28.9 cm RWT 0.46 LVOT Diam1.99 cm EDV Mod BP 117.47 ml [ 46.00 - 106.00 ] ONEL VTI2.53 cm2 LV EDV Index 70.77 ml/m2 LVOT/AV VTI0.81 - Dimensionless index (DVI) ESV Mod BP 39.06 ml [ 14.00 - 42.00 ] MV E Peak Vel1.3 m/s [ 0.6 - 1.3 ] EF Mod BP 67 % [ 54 - 74 ] MV A Peak Vel1.3 m/s [ 1.0 - 1.2 ] LV GLS -14.9 % [ -25.0 - -18.0 ] MV E/A1.0 ratio [ 0.8 - 1.5 ] LA Length 4C 5.64 cm MV Peak Vel1.4 m/s LA Length 2C 5.09 cm MV Peak PG7.84 mmHg LA Volume BP 53.86 ml MV Mean PG3 mmHg LA Volume Index 32.45 ml/m2 [ 16.00 - 34.00 ] MV VTI46.1 cm RV Base Dimen 2D 4.9 cm [ 2.5 - 4.2 ] MV Decel Dume671.78 msec [ 104.00 - 258.00 ] TAPSE 1.49 cm [ 1.71 - 5.00 ] Med E` Vel4.8 cm/sec [ 8.0 - 25.0 ] RA Volume 80.29 ml Lat E` Vel5.7 cm/sec [ 10.0 - 25.0 ] RA Volume Index 48.37 ml/m2 Average E/E`24.76 AoR Diam 2D 2.80 cm [ 2.70 - 3.70 ] RV S`8.51 cm/sec Ao Root Index 1.69 cm/m2 [ 1.00 - 2.00 ] TR Peak Vel2.2 m/s [ 1.0 - 2.8 ] Asc Ao Diam 2D 3.13 cm TR Peak PG19.4 mmHg Asc Ao Index 1.89 cm/m2 PV Peak Vel1.0 m/s [ 0.4 - 0.8 ] PV Peak PG 4.00 mmHg Electronically Signed By: Ryan Stephenson MD 11/14/2024 13:02:47 CDT us Ranulfo Gentile MD CV ECHO PROCEDURES Final Res ult * (ABNORMAL) aPTT (11/14/2024 4:31 AM CDT) aPTT 58(H) 28 - 38 sec Comment: Interpretive Data Heparin therapeutic range: 66.0 - 100.0 seconds. Range based on correlation with therapeutic heparin activity range of 0.3 - 0.7 Units/mL. Current interpretive data was last revised on 2023. Blood 11/14/2024 4:31 AM CDT 11/14/2024 4:42 AM CDT us Ranulfo Gentile MD LAB BLOOD ORDERABLES Final R esult [facility] Department [place] [address] * (ABNORMAL) Erythrocyte sedimentation rate (11/13/2024 10:35 PM CDT) Erythrocyte sedimentation rate 82(H) 1 - 30 mm/hr Blood 11/13/2024 10:3 5 PM CDT 11/13/2024 10:43 PM CDT us Ranulfo Gentile MD LAB BLOOD ORDERABLES Final R esult [facility] [place] [address] * (ABNORMAL) CRP (acute phase) (11/13/2024 10:35 PM CDT) CRP 17.0(H) <=10.0 mg/L Blood 11/13/2024 10:3 5 PM CDT 11/13/2024 10:43 PM CDT us Ranulfo Gentile MD LAB BLOOD ORDERABLES Final R esult Performing Organization Address City/[facility] Co de Phone Number [facility] [place] [address] * (ABNORMAL) eGFR (11/13/2024 10:35 PM CDT) eGFR 41(L) >=60 mL/min/1. 73 m2 Comment: Interpretive Data Reference Interval Normal >/= 90 mL/min/1.73m2 Mildly decreased* 60 - 89 mL/min/1.73m2 Mildly to moderately decreased 45 - 59 mL/min/1.73m2 Moderately to severely decreased 30 - 44 mL/min/1.73m2 Severely decreased 15 - 29 mL/min/1.73m2 Kidney Failure < 15 mL/min/1.73m2 *Relative to young adult level Estimated glomerular filtration rate is determined by the 2020 CKD-EPI equation recommended by the National Kidney Foundation (A Unifying Approach to GFR Estimation: Recommendations of the NKF-ASK Task Force on Reassessing the Inclusion of Race in Diagnosing Kidney Disease, JASN 2020). The CKD-EPI equation should not be used for patients with unstable renal function and has not been validated in children and those over 70. Current interpretive data was last reviewed 2021. Blood 11/13/2024 10:3 5 PM CDT 11/13/2024 10:54 PM CDT Ranulfo Gentile MD LAB BLOOD ORDERABLES Final R esult Performing Organization Address City/[facility]/ZIP Co de Phone Number [facility] [place] [address] * Magnesium (11/13/2024 10:35 PM CDT) [facility] Magnesium 2.3 1.4 - 2.5 mg/dL Blood 11/13/2024 10:3 5 PM CDT 11/13/2024 10:43 PM CDT us Ranulfo Gentile MD LAB BLOOD ORDERABLES Final R esult Performing Organization Address [facility] Co de Phone Number [facility] Department [place] [address] * (ABNORMAL) CBC without differential (11/13/2024 10:35 PM CDT) [facility] WBC 5.87 3.80 - 9.90 K/cumm Hgb 8.1(L) 11.9 - 15.5 g/dL [facility] Hct 26.3(L) 35.6 - 45.5 % [facility] Plt 192 150 - 400 K/cumm [facility] MPV 11.1 9.1 - 12.3 fL [facility] RBC 3.07(L) 3.90 - 5.20 M/cumm [facility] MCV 85.7 81.3 - 96.4 fL [facility] MCH 26.4(L) 27.1 - 33.3 pg [facility] MCHC 30.8(L) 32.3 - 35.7 g/dL [facility] RDW CV 14.4 11.1 - 14.9 % [facility] RDW SD 45.2 35.7 - 48.1 fL [facility] NRBC abs 0.00 0.00 - 0.01 K/cumm [facility] Blood 11/13/2024 10:3 5 PM CDT 11/13/2024 10:43 PM CDT Ranulfo Gentile MD LAB BLOOD ORDERABLES Final R esult Performing Organization Address City/[facility] Co de Phone Number [facility] Department [place] [address] * (ABNORMAL) Basic metabolic panel (11/13/2024 10:35 PM CDT) [facility] Sodium 139 135 - 145 mmol/L Potassium, pl 3.9 3.3 - 4.9 mmol/L [facility] Chloride 105 97 - 110 mmol/L [facility] CO2 29 22 - 32 mmol/L [facility] Anion gap 5 2 - 15 mmol/L [facility] BUN 14 6 - 25 mg/dL [facility] Creatinine 1.40(H) 0.60 - 1.10 mg/dL [facility] Glucose 98 70 - 199 mg/dL [facility] Comment: Interpretive Data Fasting glucose >/= 126 mg/dl is diagnostic for diabetes. Fasting is defined as no caloric intake for at least 8 hours. Fasting glucose between 100 mg/dl to 125 mg/dl is diagnostic of prediabetes. In a patient with classic symptoms of hyperglycemia or hyperglycemic crisis, a random glucose >/= 200 mg/dl is diagnostic for diabetes. In the absence of unequivocal hyperglycemia, results should be confirmed by repeat testing. The classification and Diagnosis of Diabetes Diabetes Care 2021; 46: S19-S40. Current interpretive data was last revised 2022. Calcium 9.6 8.5 - 10.3 mg/dL [facility] Blood 11/13/2024 10:3 5 PM CDT 11/13/2024 10:43 PM CDT Ranulfo Gentile MD LAB BLOOD ORDERABLES Final R esult Performing Organization Address [facility]/ZIP Co de Phone Number [facility] [place] [address] * aPTT (11/13/2024 5:26 PM CDT) [facility] aPTT 31 28 - 38 sec Comment: Interpretive Data Heparin therapeutic range: 66.0 - 100.0 seconds. Range based on correlation with therapeutic heparin activity range of 0.3 - 0.7 Units/mL. Current interpretive data was last revised on 2023. Blood 11/13/2024 5:26 PM CDT 11/13/2024 5:51 PM CDT Narrative [facility] - 11/13/2024 6:00 PM CDT Baseline prior to heparin initiation us Eliane Feng [employer] LAB BLOOD ORDERABLES Final Res ult [facility] Department [place] [address] * (ABNORMAL) CBC without differential (11/13/2024 5:26 PM CDT) [facility] WBC 6.04 3.80 - 9.90 K/cumm Hgb 8.5(L) 11.9 - 15.5 g/dL [facility] Hct 26.6(L) 35.6 - 45.5 % [facility] Plt 184 150 - 400 K/cumm [facility] MPV 11.3 9.1 - 12.3 fL [facility] RBC 3.16(L) 3.90 - 5.20 M/cumm [facility] MCV 84.2 81.3 - 96.4 fL [facility] MCH 26.9(L) 27.1 - 33.3 pg [facility] MCHC 32.0(L) 32.3 - 35.7 g/dL [facility] RDW CV 14.4 11.1 - 14.9 % [facility] RDW SD 44.5 35.7 - 48.1 fL [facility] NRBC abs 0.00 0.00 - 0.01 K/cumm [facility] Blood 11/13/2024 5:26 PM CDT 11/13/2024 5:50 PM CDT Narrative [facility] - 11/13/2024 6:05 PM CDT Baseline prior to heparin initiation us Eliane Feng [employer] LAB BLOOD ORDERABLES Final Res ult Performing Organization Address [facility] [place] [address] * (ABNORMAL) Protime-INR (11/13/2024 5:26 PM CDT) PT 25.3(H) 9.7 - 13.0 sec INR 2.30(H) 0.90 - 1.20 [facility] Comment: Interpretive data Oral anticoagulant therapeutic ranges: Venous thromboembolism prophylaxis or treatment: 2.0-3.0 CARDIOLOGY Standard range: 2.0-3.0 High-intensity range: 2.5-3.5 Refer to indication-specific guidelines for appropriate target ranges for prosthetic heart valve replacement. Current interpretive data was last revised on 2019. Blood 11/13/2024 5:26 PM CDT 11/13/2024 5:51 PM CDT Narrative [facility] - 11/13/2024 6:00 PM CDT Baseline prior to heparin initiation us Eliane Feng [employer] LAB BLOOD ORDERABLES Final Res ult Performing Organization Address [facility] de Phone Number [facility] [address] * (ABNORMAL) eGFR (11/13/2024 2:19 PM CDT) eGFR 41(L) >=60 mL/min/1. 73 m2 Comment: Interpretive Data Reference Interval Normal >/= 90 mL/min/1.73m2 Mildly decreased* 60 - 89 mL/min/1.73m2 Mildly to moderately decreased 45 - 59 mL/min/1.73m2 Moderately to severely decreased 30 - 44 mL/min/1.73m2 Severely decreased 15 - 29 mL/min/1.73m2 Kidney Failure < 15 mL/min/1.73m2 *Relative to young adult level Estimated glomerular filtration rate is determined by the 2020 CKD-EPI equation recommended by the National Kidney Foundation (A Unifying Approach to GFR Estimation: Recommendations of the NKF-ASK Task Force on Reassessing the Inclusion of Race in Diagnosing Kidney Disease, JASN 2020). The CKD-EPI equation should not be used for patients with unstable renal function and has not been validated in children and those over 70. Current interpretive data was last reviewed 2021. Blood 11/13/2024 2:19 PM CDT 11/13/2024 2:21 PM CDT us Tiffanie Grey MD LAB BLOOD ORDERABLES Final Result [facility] Department [place] [address] * Differential, auto (11/13/2024 2:19 PM CDT) Neutrophil abs 5.24 1.50 - 6.50 K/cumm Imm gran abs 0.03 0.00 - 0.10 K/cumm [facility] Lymphocyte abs 0.98 0.80 - 3.30 K/cumm [facility] Monocyte abs 0.49 0.20 - 0.80 K/cumm [facility] Eosinophil abs 0.10 0.00 - 0.50 K/cumm [facility] Basophil abs 0.04 0.00 - 0.10 K/cumm [facility] Neutrophil pct 76.2 % [facility] Comment: Interpretive Data Percent cell count reference ranges are not reported, since discordance with absolute values may lead to misinterpretation of CBC data. Current Interpretive Data was last revised on 2017. Imm gran pct 0.4 % [facility] Comment: Interpretive Data Percent cell count reference ranges are not reported, since discordance with absolute values may lead to misinterpretation of CBC data. Current Interpretive Data was last revised on 2017. Lymphocyte pct 14.2 % [facility] Comment: Interpretive Data Percent cell count reference ranges are not reported, since discordance with absolute values may lead to misinterpretation of CBC data. Current Interpretive Data was last revised on 2017. Monocyte pct 7.1 % [facility] Comment: Interpretive Data Percent cell count reference ranges are not reported, since discordance with absolute values may lead to misinterpretation of CBC data. Current Interpretive Data was last revised on 2017. Eosinophil pct 1.5 % [facility] Comment: Interpretive Data Percent cell count reference ranges are not reported, since discordance with absolute values may lead to misinterpretation of CBC data. Current Interpretive Data was last revised on 2017. Basophil pct 0.6 % [facility] Comment: Interpretive Data Percent cell count reference ranges are not reported, since discordance with absolute values may lead to misinterpretation of CBC data. Current Interpretive Data was last revised on 2017. Blood 11/13/2024 2:19 PM CDT 11/13/2024 2:31 PM CDT Tiffanie Grey MD LAB BLOOD ORDERABLES Final Result [facility] Department [place] [address] * (ABNORMAL) Blood culture Blood Peripheral (11/13/2024 2:19 PM CDT) [facility] Direct Specimen Exam Molecular Analysis: Enterococcus faecalis detected by jm ePlex BCID-G panel. Enterococcus faecalis is routinely susceptible to ampicillin. Genes conferring Vancomycin resistance were not detected. This test does not exclude the possibility of a mixed bacterial infection. Notification of: Enterococcus faicalis called to and read back by: Colin Blair MD [phone] on 11/14/2024 08:50:27 by: Blake Garcia MLT Direct Specimen Exam Stain: Gram Positive Cocci in pairs and chains Time to culture positivity (aerobic media): 16.0 hours Time to culture positivity (anaerobic media): 16.0 hours Notification of: Gram Positive Cocci in pairs and chains called to and read back by: Colin Blair MD [phone] on 11/14/2024 06:51:41 by: AFRICA Michaels [facility] Report Final Report: Enterococcus faecalis For serious infections with Enterococcus species (such as endocarditis or endovascular graft infections), combination antimicrobial therapy is often required. In these cases, an Infectious Disease Consult is strongly recommended. (.) [facility] R[facility]ERA Organism ENTEROCOCCUS FAECALIS [facility] Blood (Peripheral) 11/13/2024 2:19 PM CDT 11/13/2024 2:21 PM CDT Narrative [facility] - 11/17/[facility] 11:51 AM CDT From a different site than #1. Draw Blood cultures before administration of Antibiotics Collection->Peripheral 1. Blood cultures are incubated for 4 days on a continuously monitored blood culture system. The first report of a negative culture is issued within 24 hours of receipt of the specimen in the laboratory. 2. Positive culture results are reported as soon as they are detected. 3. The most important factor for detection of microbes in the setting of bloodstream infection is the volume of blood submitted for culture. Failure to collect an optimal blood volume can result in false negative blood cultures. 4. For pediatric patients, the recommended blood volume to collect follows a weight based strategy. See the electronic test catalog for collection instructions. 5. For positive blood cultures, a rapid molecular test may be performed for organism identification using the jm ePlex blood culture identification panel for gram positive (BCID-GP) and gram negative (BCID-GN) organisms. This nucleic acid amplification test detects microbial DNA in positive blood culture broth. This assay has been cleared by the [place] Food and Drug Administration and its performance characteristics have been verified by the [facility]. For questions about this culture, contact the Microbiology Laboratory at [phone]. Interpretive data was last revised on 24. Organism Antibiotic Method Susceptibility Enterococcus faecalis Ampicillin (ELISABETH) INTERPRETATIO N Susceptible Enterococcus faecalis Vancomycin (ELISABETH) INTERPRETATIO N Susceptible Enterococcus faecalis High-Level Gentamicin (ELISABETH) INTE RPRETATION Susceptible Enterococcus faecalis Linezolid (ELISABETH) INTERPRETATIO N Susceptible Enterococcus faecalis Doxycycline (ELISABETH) INTERPRETATIO N Resistant Tiffanie Grey MD LAB MICROBIOLOGY - G ENERAL ORDERABLES Final Result [facility] Department [place] [address] * (ABNORMAL) Blood culture Blood Peripheral (11/13/2024 2:19 PM CDT) Direct Specimen Exam Stain: Gram Positive Cocci in pairs and chains Time to culture positivity (aerobic media): 18.2 hours Time to culture positivity (anaerobic media): 18.2 hours Report Final Report: Enterococcus faecalis For susceptibility results, refer to accession number [id number] on the blood culture from 11/13/2024 (.) [facility] Organism ENTEROCOCCUS FAECALIS [facility] Blood (Peripheral) 11/13/2024 2:19 PM CDT 11/13/2024 2:21 PM CDT Narrative [facility] - 11/17/2024 11:51 AM CDT Draw Blood cultures before administration of Antibiotics Collection->Peripheral 1. Blood cultures are incubated for 4 days on a continuously monitored blood culture system. The first report of a negative culture is issued within 24 hours of receipt of the specimen in the laboratory. 2. Positive culture results are reported as soon as they are detected. 3. The most important factor for detection of microbes in the setting of bloodstream infection is the volume of blood submitted for culture. Failure to collect an optimal blood volume can result in false negative blood cultures. 4. For pediatric patients, the recommended blood volume to collect follows a weight based strategy. See the electronic test catalog for collection instructions. 5. For positive blood cultures, a rapid molecular test may be performed for organism identification using the jm ePlex blood culture identification panel for gram positive (BCID-GP) and gram negative (BCID-GN) organisms. This nucleic acid amplification test detects microbial DNA in positive blood culture broth. This assay has been cleared by the [place] Food and Drug Administration and its performance characteristics have been verified by the [facility]. For questions about this culture, contact the Microbiology Laboratory at [phone]. Interpretive data was last revised on 24. Tiffanie Grey MD LAB MICROBIOLOGY - G ENERAL ORDERABLES Final Result [facility] Department [place] [address] * (ABNORMAL) Comprehensive metabolic panel (11/13/2024 2:19 PM CDT) Sodium 139 135 - 145 mmol/L Potassium, pl 3.9 3.3 - 4.9 mmol/L [facility] Chloride 102 97 - 110 mmol/L [facility] CO2 27 22 - 32 mmol/L [facility] Anion gap 10 2 - 15 mmol/L [facility] BUN 13 6 - 25 mg/dL [facility] Creatinine 1.42(H) 0.60 - 1.10 mg/dL [facility] Glucose 93 70 - 199 mg/dL [facility] Comment: Interpretive Data Fasting glucose >/= 126 mg/dl is diagnostic for diabetes. Fasting is defined as no caloric intake for at least 8 hours. Fasting glucose between 100 mg/dl to 125 mg/dl is diagnostic of prediabetes. In a patient with classic symptoms of hyperglycemia or hyperglycemic crisis, a random glucose >/= 200 mg/dl is diagnostic for diabetes. In the absence of unequivocal hyperglycemia, results should be confirmed by repeat testing. The classification and Diagnosis of Diabetes Diabetes Care 2021; 46: S19-S40. Current interpretive data was last revised 2022. Calcium 9.5 8.5 - 10.3 mg/dL [facility] Bilirubin, total 0.2 0.1 - 1.2 mg/dL [facility] Protein, pl 8.3 6.5 - 8.5 g/dL [facility] Albumin 4.0 3.5 - 5.0 g/dL [facility] Alk phos 104 40 - 130 Units/L [facility] ALT 10 7 - 45 Units/L [facility] AST 18 10 - 45 Units/L [facility] Blood 11/13/2024 2:19 PM CDT 11/13/2024 2:21 PM CDT us Tiffanie Grey MD LAB BLOOD ORDERABLES Final Result [facility] Department [place] [address] * (ABNORMAL) CBC with auto differential (11/13/2024 2:19 PM CDT) WBC 6.88 3.80 - 9.90 K/cumm Hgb 8.8(L) 11.9 - 15.5 g/dL [facility] Hct 27.9(L) 35.6 - 45.5 % [facility] Plt 204 150 - 400 K/cumm [facility] MPV 11.0 9.1 - 12.3 fL [facility] RBC 3.28(L) 3.90 - 5.20 M/cumm [facility] MCV 85.1 81.3 - 96.4 fL [facility] MCH 26.8(L) 27.1 - 33.3 pg [facility] MCHC 31.5(L) 32.3 - 35.7 g/dL [facility] RDW CV 14.5 11.1 - 14.9 % [facility] RDW SD 44.4 35.7 - 48.1 fL [facility] NRBC abs 0.00 0.00 - 0.01 K/cumm [facility] Blood 11/13/2024 2:19 PM CDT 11/13/2024 2:31 PM CDT us Tiffanie Grey MD LAB BLOOD ORDERABLES Final Result [facility] Department [place] [address] * XR Chest PA Lateral 2 Views (11/13/2024 1:55 PM CDT) Anatomical Region Laterality Modality Body, Chest N/A Computed Radiogr aphy 11/13/2024 1:59 PM CDT Impressions 11/13/2024 1:59 PM CDT Comparison 11/13/2023. Unchanged median sternotomy wires, mitral valve repair, aortic valve, and left pectoral pacemaker device with lead tips terminating over right atrium, coronary vein, and right ventricular apex. Right upper quadrant surgical clips and upper lumbar spine vertebral augmentation also noted. There is persistent moderate elevation of the left hemidiaphragm with associated subsegmental atelectasis. Infiltration of the right hemidiaphragm is also present. No pneumothorax, pleural effusion, or focal pneumonic consolidation. Cardiomediastinal contours are unchanged. Compression deformity of the lower thoracic spine is better evaluated on recent outside CT examination, but new from CT 10/17/2022. Electronically signed by: Gilmer Loyd M.D. Narrative 11/13/2024 1:59 PM CDT EXAMINATION: 2 view chest radiograph Procedure Note Gilmer Loyd MD - 11/13/2024 EXAMINATION: 2 view chest radiograph IMPRESSION: Comparison 11/13/2023. Unchanged median sternotomy wires, mitral valve repair, aortic valve, and left pectoral pacemaker device with lead tips terminating over right atrium, coronary vein, and right ventricular apex. Right upper quadrant surgical clips and upper lumbar spine vertebral augmentation also noted. There is persistent moderate elevation of the left hemidiaphragm with associated subsegmental atelectasis. Infiltration of the right hemidiaphragm is also present. No pneumothorax, pleural effusion, or focal pneumonic consolidation. Cardiomediastinal contours are unchanged. Compression deformity of the lower thoracic spine is better evaluated on recent outside CT examination, but new from CT 10/17/2022. Electronically signed by: Gilmer Loyd M.D. Tiffanie Grey MD IMG XR PROCEDURES Fi nal Result * Neuro CT Outside Consult (11/13/2024 12:17 PM CDT) Anatomical Region Laterality Modality N/A Computed Tomogra phy 11/13/2024 12:3 4 PM CDT Impressions 11/13/2024 12:34 PM CDT New osteolysis, cortical irregularities, subcortical sclerosis and distention of the intervertebral disc at T10-T11 with mild prominent prevertebral soft tissues, concerning of discitis osteophyte complex. MRI evaluation is recommended as clinically indicated. The findings, conclusions and recommendations within this report do not replace the initial findings, conclusions and recommendations made at the facility where the study was performed based upon the imaging and clinical condition at that time. Comparison with the prior report and clinical history is necessary. The provided images may or may not represent the [employer] source data set and thus may contain changes that may lower the accuracy of this second-opinion interpretation. Electronically signed by: Valdemar Mcdowell MD Narrative 11/13/2024 12:34 PM CDT EXAMINATION: RADIOLOGY CONSULTATION ON OUTSIDE IMAGING STUDY STUDY INITIALLY PERFORMED: 11/10/2024 at [facility]. TYPE OF STUDY: Multiple CT images of the thoracic spine without IV contrast are provided at the time of this interpretation. CONTRAST ROUTE: No contrast was administered. The protocol was adequate to address the clinical question. The outside final report was not available at the time of this second opinion interpretation. TYPE OF CONSULTATION: Consult on outside imaging study with images submitted through Outside Image Sharing Service DATE OF CONSULTATION: 11/13/2024 12:25 PM HISTORY: 69-year-old female with back pain COMPARISON: CT abdomen 08/22/2024, CT cervical spine 12/27/[address] lumbar spine 07/07/2021. FINDINGS: There is interval development of osseous erosion with large osteophytosis of T11 superior endplate, cortical irregularity and subcortical sclerosis of T10-T11 opposing vertebral endplates. Mild prominent of the prevertebral soft tissues is noted without definite organized collections. Changes of L1 augmentation vertebroplasty with stable 30% vertebral body height loss. 2 mm retropulsion of the posterior superior endplate is seen. Focal cervical kyphosis at T12-L1. Diffuse osteopenia. Multilevel degenerative changes of the thoracic spine are seen. No high-grade spinal canal or neuroforaminal stenosis. Mildly prominent right paratracheal lymph nodes are seen. Biapical scarring and subsegmental atelectasis are seen. Left lower lobe atelectasis is also seen. Procedure Note Valdemar Mcdowell MD PhD - 11/13/2024 EXAMINATION: RADIOLOGY CONSULTATION ON OUTSIDE IMAGING STUDY STUDY INITIALLY PERFORMED: 11/10/2024 at [facility]. TYPE OF STUDY: Multiple CT images of the thoracic spine without IV contrast are provided at the time of this interpretation. CONTRAST ROUTE: No contrast was administered. The protocol was adequate to address the clinical question. The outside final report was not available at the time of this second opinion interpretation. TYPE OF CONSULTATION: Consult on outside imaging study with images submitted through Outside Image Sharing Service DATE OF CONSULTATION: 11/13/2024 12:25 PM HISTORY: 69-year-old female with back pain COMPARISON: CT abdomen 08/22/2024, CT cervical spine 12/27/[address] lumbar spine 07/07/2021. FINDINGS: There is interval development of osseous erosion with large osteophytosis of T11 superior endplate, cortical irregularity and subcortical sclerosis of T10-T11 opposing vertebral endplates. Mild prominent of the prevertebral soft tissues is noted without definite organized collections. Changes of L1 augmentation vertebroplasty with stable 30% vertebral body height loss. 2 mm retropulsion of the posterior superior endplate is seen. Focal cervical kyphosis at T12-L1. Diffuse osteopenia. Multilevel degenerative changes of the thoracic spine are seen. No high-grade spinal canal or neuroforaminal stenosis. Mildly prominent right paratracheal lymph nodes are seen. Biapical scarring and subsegmental atelectasis are seen. Left lower lobe atelectasis is also seen. IMPRESSION: New osteolysis, cortical irregularities, subcortical sclerosis and distention of the intervertebral disc at T10-T11 with mild prominent prevertebral soft tissues, concerning of discitis osteophyte complex. MRI evaluation is recommended as clinically indicated. The findings, conclusions and recommendations within this report do not replace the initial findings, conclusions and recommendations made at the facility where the study was performed based upon the imaging and clinical condition at that time. Comparison with the prior report and clinical history is necessary. The provided images may or may not represent the [employer] source data set and thus may contain changes that may lower the accuracy of this second-opinion interpretation. Electronically signed by: Valdemar Mcdowell MD Romeo Flower MD IM CT PROCEDURES Final Resul t * Neuro CT Outside Reference (11/13/2024 12:13 PM CDT) Impressions [facility] - 11/13/2024 12:13 PM CDT These images are for Reference purposes only and have not been reviewed by [facility]. There will be no report generated by a [facility] Radiologist. 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 Infection and inflammatory reaction due to cardiac device, implant, and graft HIT suspected - tested NEGATIVE Fall Unspecified fall documented in this encounter Admitting Diagnoses Diagnosis Chronic midline thoracic back pain Pacemaker infection Infection and inflammatory reaction due to cardiac device, implant, and graft documented in this encounter Administered Medications Inactive Administered Medications - up to 3 most recent administrations Medication Order MAR Action Action Date Dose Rate Site acetaminophen (TYLENOL) tablet 1,000 mg 1,000 mg, oral, Every 6 hours scheduled, First dose (after last modification) on Sun11/14/24 at 1200, Indications: Fever, PainIndications:Fever,Pain Given 12/02/2024 5:01 AM CDT 1,000 mg Given 12/01/2024 5:02 PM CDT 1,000 mg Given 12/01/2024 12:11 PM CDT 1,000 mg acetaminophen (TYLENOL) tablet 1,000 mg 1,000 mg, oral, Once, On Sun11/25/24 at 2130, For 1 dose, Phase I, When able to tolerate PO., Indications: PainIndications:Pain Given 11/25/2024 9:24 PM CDT 1,000 mg albuterol HFA (PROVENTIL HFA,VENTOLIN HFA,PROAIR HFA) 90 mcg/actuation inhaler 2 puff 2 puff, inhalation, Every 4 hours PRN (respiratory medicine physician), wheezing, shortness of breath, Starting on Sun11/13/24 at 1638 Given 12/02/2024 4:59 AM CDT 2 puffs Given 12/01/2024 9:34 PM CDT 2 puffs ampicillin 2,000 mg/60 mL in sterile water IVPB (premix) 2,000 mg 2,000 mg, intravenous, at 120 mL/hr, Administer over 30 Minutes, Every 6 hours scheduled, First dose on Sun11/14/24 at 0915, Indications: ostemyelitis - positive blood culture to e. faecalisIndications:ostemyelitis - positive blood culture to e. faecalis New Bag 12/02/2024 4:34 AM CDT 2,000 mg 120 mL/hr New 12/01/2024 9:35 PM CDT 2,000 mg 120 mL/hr New Bag 12/01/2024 3:15 PM CDT 2,000 mg 120 mL/hr ampicillin 2,000 mg/60 mL in sterile water IVPB (premix) 2,000 mg 2,000 mg, intravenous, at 120 mL/hr, Administer over 30 Minutes, Every 6 hours scheduled, First dose (after last modification) on Sun12/02/24 at 1000, For 35 days, Indications: ostemyelitis - positive blood culture to e. faecalisIndications:ostemyelitis - positive blood culture to e. faecalis New 12/02/2024 10:05 AM CDT 2,000 mg 120 mL/hr bivalirudin in 0.9% sodium chloride (ANGIOMAX) 100 mg/100 mL infusion (premix) 0-3 mg/kg/hr 63.1 kg (0-189.3 mL/hr), intravenous, Titrated, Starting on Sun11/26/24 at 0045, Starting dose 0.06 mg/kg/hr. PTT less than 50 seconds, increase infusion dose by 0.01 mg/kg/hr PTT range; 50-80 seconds: no change PTT 81 - 95 seconds: decrease infusion dose by 0.01 mg/kg/hr PTT greater than 95 seconds: hold infusion for 1 hour, then decrease dose by 0.02 mg/kg/hr. Draw STAT PTT 2 hours after initiation of bivalirudin infusion, draw STAT PTT 2 hours after each dose change, and every 2 hours until 2 consecutive PTTs are within therapeutic range. Once two consecutive PTTs are therapeutic (50-80 seconds), then draw PTT every AM until bivalirudin is discontinued., Indications: Heparin-Induced ThrombocytopeniaIndications:Hepa rin-Induced Thrombocytopenia New 11/29/2024 4:02 AM CDT 0.09 mg/kg/hr 5.7 mL/hr New Bag 11/28/2024 10:38 AM CDT 0.09 mg/kg/hr 5.68 mL/h r Rate/Dose Change 11/28/2024 5:58 AM CDT 0.09 mg/kg/hr 5.68 mL/hr BUPivacaine (MARCAINE) 0.25 % (2.5 mg/mL) preservative free injection As needed, Starting on Sun11/17/24 at 1657, Intra-Procedure (IR) Given 11/17/2024 4:57 PM CDT 5 mL carvediloL (COREG) tablet 12.5 mg 12.5 mg, oral, 2 times daily with meals (bkfst, dinner), First dose on Sun11/13/24 at 1800, On hold since Sun11/14/2024 at 0918 until manually unheld Given 11/13/2024 5:11 PM CDT 12.5 mg carvediloL (COREG) tablet 12.5 mg 12.5 mg, oral, 2 times daily with meals (bkfst, dinner), First dose (after last modification) on Sun12/01/24 at 1445 Given 12/02/2024 8:19 AM CDT 12.5 mg Given 12/01/2024 3:04 PM CDT 12.5 mg cefTRIAXone (ROCEPHIN) 2,000 mg/20 mL in sterile water (premix) 2,000 mg 2,000 mg, intravenous, at 240 mL/hr, Administer over 5 Minutes, Every 24 hours scheduled, First dose on Sun11/14/24 at 1000, Indications: Bone/Joint InfectionIndications:Bone/Joint Infection Given 11/14/2024 12:13 PM CDT 2,000 mg 240 mL/hr cefTRIAXone (ROCEPHIN) 2,000 mg/20 mL in sterile water (premix) 2,000 mg 2,000 mg, intravenous, at 240 mL/hr, Administer over 5 Minutes, Every 12 hours scheduled, First dose (after last modification) on Sun11/14/24 at 2100, Indications: Bone/Joint InfectionIndications:Bone/Joint Infection Given 12/01/2024 9:21 PM CDT 2,000 mg 240 mL/hr Given 12/01/2024 8:10 AM CDT 2,000 mg 240 mL/hr Given 11/30/2024 9:13 PM CDT 2,000 mg 240 mL/hr cefTRIAXone (ROCEPHIN) 2,000 mg/20 mL in sterile water (premix) 2,000 mg 2,000 mg, intravenous, at 240 mL/hr, Administer over 5 Minutes, Every 12 hours scheduled, First dose (after last modification) on Sun12/02/24 at 0900, For 35 days, Indications: Bone/Joint InfectionIndications:Bone/J oint Infection Given 12/02/2024 8:20 AM CDT 2,000 mg 240 mL/hr chlorhexidine (PERIDEX) 0.12 % oral rinse 15 mL 15 mL, swish & spit, Once, On Sun11/25/24 at 1500, For 1 dose, Pre-Op, Indications: CTS DecontaminationIndications: CTS Decontamination Given 11/25/2024 3:03 PM CDT 15 mL enoxaparin (LOVENOX) syringe 60 mg 60 mg (rounded from 63.1 mg = 1 mg/kg 63.1 kg), subcutaneous, Daily, First dose on Sun11/29/24 at 1000, Indications: Mechanical Valve Thromboembolism ProphylaxisIndications[facility]rom[facility] Prophylaxis Given 12/01/2024 8:10 AM CDT 60 mg Left Lower Abdomen Given 11/30/2024 8:24 AM CDT 60 mg Le ft Lower Abdomen Given 11/29/2024 2:04 PM CDT 60 mg Le ft Lower Abdomen famotidine (PEPCID) tablet 40 mg 40 mg, oral, Daily, First dose on Sun11/13/24 at 1634 Given 12/02/2024 8:19 AM CDT 40 mg Given 12/01/2024 8:10 AM CDT 40 mg Given 11/30/2024 8:24 AM CDT 40 mg fentaNYL (SUBLIMAZE) preservative free injection intravenous, As needed, Starting on Sun11/17/24 at 1646, Intra-Op Given 11/17/2024 4:46 PM CDT 100 mcg fentaNYL (SUBLIMAZE) preservative free injection intravenous, As needed, Starting on Sun11/17/24 at 1658, Intra-Op Given 11/17/2024 4:58 PM CDT 50 mcg fluticasone propionate (FLONASE) 50 mcg/actuation nasal spray 2 spray 2 spray, each nostril, Daily, First dose on Sun11/13/24 at 1634 Given 11/29/2024 8:31 AM CDT 2 sprays Given 11/28/2024 9:19 AM CDT 2 sprays Given 11/27/2024 8:16 AM CDT 2 sprays fgvrnakguwz-cxfzpgbdw-zthvbzmr (TRELEGY ELLIPTA) 200-62.5-25 mcg inhaler 1 puff 1 puff, inhalation, Daily, First dose (after last modification) on 11/14/24 at 0900, Rinse mouth with water after use. Do not swallow. RN to give Given 11/21/2024 8:27 AM CDT 1 puff Given 11/19/2024 8:13 AM CDT 1 puff Given 11/18/2024 8:18 AM CDT 1 puff gabapentin (NEURONTIN) capsule 300 mg 300 mg, oral, 3 times daily, First dose on 11/22/24 at 1030 Given 12/02/2024 8:19 AM CDT 300 mg Given 12/01/2024 9:06 PM CDT 300 mg Given 12/01/2024 3:04 PM CDT 300 mg gadoterate meglumine injection 12 mL 12 mL, intravenous, Once in imaging, contrast, Starting on 11/17/24 at 1331, For 1 dose Contrast Given 11/17/2024 1:31 PM CDT 12 mL heparin in 0.45% sodium chloride 25,000 units/250 mL (100 units/mL) infusion (premix) 0-33 Units/kg/hr 63.1 kg (0-20.823 mL/hr, rounded to 0-20.82 mL/hr), intravenous, Titrated, Starting on [place] 11/13/24 at 2200, WEIGHT-BASED HEPARIN INFUSION Begin infusion at dose of: 14 units/kg/hr Titration Instructions- Adjust dose based on PTT Results STAT PTT timing: - Draw 6 hours after heparin infusion initiation - Draw 6 hours after every dose change until 2 consecutive PTTs are therapeutic - Once 2 consecutive PTTs are therapeutic, draw with daily labs until infusion is discontinued - - Restart every 6 hour lab draws and follow instructions accordingly if PTT is outside of therapeutic range PTT results: PTT less than 46 seconds: Bolus if ordered (see PRN bolus order) , then INCREASE infusion dose by 3 (THREE) units/kg/hour PTT 46 - 55 seconds: Bolus if ordered (see PRN bolus order), then INCREASE infusion dose by 2 (TWO) units/kg/hour PTT 56 - 65 seconds: No bolus, INCREASE infusion dose by 1 (ONE) unit/kg/hour PTT 66 - 100 seconds (therapeutic): No change PTT 101 - 110 seconds: No bolus, DECREASE infusion dose by 1 (ONE) unit/kg/hour PTT 111 - 120 seconds: Hold infusion for 30 minutes, then DECREASE infusion dose by 2 (TWO) units/kg/hour PTT greater than 120 seconds: Hold infusion for 1 hour, then DECREASE infusion dose by 3 (THREE) units/kg/hour, Indications: atrial fibrillation, On hold since Sun11/25/2024 at 0931 until manually unheldIndications:atrial fibrillation Rate/Dose Verify 11/25/2024 8:57 AM CDT 18 Units/kg/hr 11.36 mL/hr Rate/Dose Change 11/25/2024 2:08 AM CDT 18 Units/kg/hr 11. 36 mL/hr New Bag 11/24/2024 4:54 PM CDT 17 Units/kg/hr 10.73 mL/ hr HYDROmorphone (DILAUDID) injection 0.2 mg 0.2 mg, intravenous, Administer over 2 Minutes, Every 10 min PRN, 1st line for pain, Starting on Sun11/25/24 at 2058, Phase I, Switch to 2nd line analgesic order if pain is uncontrolled or increasing after 2 doses. Notify Anesthesiologist if total PACU dose reaches 2 mg and pain score 5/10 or more., Indications: PainIndications:Pain Given 11/25/2024 10:02 PM CDT 0. 2 mg Given 11/25/2024 9:35 PM CDT 0.2 mg Given 11/25/2024 9:25 PM CDT 0.2 mg HYDROmorphone (DILAUDID) injection 0.4 mg 0.4 mg, intravenous, Administer over 2 Minutes, Every 10 min PRN, 2nd line for pain, Starting on Sun11/25/24 at 2058, Phase I, May administer 10 mintes after 2nd dose of 1st line analgesic agent for uncontrolled or increasing pain. Revert to 1st line dose if POSS of 3. Notify Anesthesiologist if total PACU dose reaches 2 mg and pain score 5/10 or more., Indications: PainIndications:Pain Given 11/25/2024 10:15 PM CDT 0.4 mg hydrOXYzine (ATARAX) tablet 10 mg 10 mg, oral, Every 4 hours PRN, anxiety, 1st line for anxiety, Starting on Sun11/24/24 at 1225 Given 11/26/2024 4:03 PM CDT 10 mg Given 11/25/2024 10:30 AM CDT 10 mg Given 11/24/2024 1:33 PM CDT 10 mg Lactated Ringer's (LR) bolus 500 mL 500 mL, intravenous, at 250 mL/hr, Administer over 2 Hours, Once, On [place] 11/27/24 at 0715, For 1 dose New Bag 11/27/2024 8:15 AM CDT 500 mL 250 mL/hr Lactated Ringer's (LR) bolus 500 mL 500 mL, intravenous, at 250 mL/hr, Administer over 2 Hours, Once, On 11/29/24 at 1300, For 1 dose New Bag 11/29/2024 1:27 PM CDT 500 mL 250 mL/hr lidocaine (LIDODERM) 5 % patch 1 patch 1 patch, transdermal, Administer over 12 Hours, Every 24 hours, First dose on Sun11/19/24 at 1930, Do not cover the holes on the top side of the patch., Apply to affected area: other Medication Applied 11/19/2024 7:51 PM CDT 1 patch Back lidocaine (LIDODERM) 5 % patch 1 patch 1 patch, transdermal, Administer over 12 Hours, Every 24 hours, First dose on Sun11/21/24 at 2300, Do not cover the holes on the top side of the patch., Apply to affected area: back Medication Applied 11/28/2024 11:10 PM CDT 1 patch Back Medication Applied 11/26/2024 9:17 PM CDT 1 patch Back Medication Applied 11/24/2024 10:10 PM CDT 1 patch Back lidocaine (PF) (XYLOCAINE) 10 mg/mL (1 %) preservative free injection As needed, Starting on Sun11/17/24 at 1657, Intra-Procedure (IR), Indications: Administration of Local AnesthesiaIndications:Administration of Local Anesthesia Given 11/17/2024 4:57 PM CDT 5 mL LORazepam (ATIVAN) 1 mg in sterile water (further dilution required) injection 1 mg, intravenous, Once, On Sun11/17/24 at 1115, For 1 dose, Withdraw ordered dose amount then dilute with equal volume of sterile water for injection. Administer total volume to patient. Do not exceed a rate of 2 mg/minute. Given 11/17/2024 10:42 AM CDT 1 mg LORazepam (ATIVAN) tablet 0.25 mg 0.25 mg, oral, Every 6 hours PRN, anxiety, 2nd line for anxiety, Starting on Sun11/24/24 at 1225 LORazepam (ATIVAN) tablet 0.5 mg 0.5 mg, oral, Once, On [place] 11/13/24 at 1502, For 1 dose Given 11/13/2024 3:09 PM CDT 0.5 mg methocarbamoL (ROBAXIN) tablet 500 mg 500 mg, oral, 3 times daily, First dose on Sun11/14/24 at 0945 Given 11/19/2024 8:04 PM CDT 500 mg Given 11/19/2024 6:36 PM CDT 500 mg Given 11/18/2024 8:15 PM CDT 500 mg methocarbamoL (ROBAXIN) tablet 750 mg 750 mg, oral, 3 times daily, First dose (after last modification) on Sun11/20/24 at 0900 Given 12/02/2024 8:25 AM CDT 750 mg Given 12/01/2024 9:06 PM CDT 750 mg Given 12/01/2024 3:04 PM CDT 750 mg midazolam (VERSED) 1 mg/mL injection Administer over 2 Minutes, As needed, Starting on Sun11/17/24 at 1646, Intra-Op Given 11/17/2024 4:46 PM CDT 2 mg midazolam (VERSED) 1 mg/mL injection Administer over 2 Minutes, As needed, Starting on Sun11/17/24 at 1658, Intra-Op Given 11/17/2024 4:58 PM CDT 1 mg morphine injection 2 mg 2 mg, intravenous, Administer over 4 Minutes, Once, On [facility] 11/13/24 at 1502, For 1 dose Given 11/13/2024 3:08 PM CDT 2 mg ondansetron (ZOFRAN) injection 4 mg 4 mg, intravenous, Administer over 2 Minutes, Every 6 hours PRN, nausea, vomiting, if not tolerating PO, Starting on [place] 11/13/24 at 1633, Indications: Nausea and VomitingIndications:Nausea and Vomiting Given 11/15/2024 8:42 AM CDT 4 mg ondansetron (ZOFRAN) injection 4 mg 4 mg, intravenous, Administer over 2 Minutes, Every 6 hours PRN, nausea, vomiting, if not tolerating PO, Starting on 11/15/24 at 1157, Indications: Nausea and VomitingIndications:Nausea and Vomiting Given 12/02/2024 8:07 AM CDT 4 mg Given 11/20/2024 11:22 AM CDT 4 mg ondansetron ODT (ZOFRAN-ODT) disintegrating tablet 4 mg 4 mg, oral, Every 6 hours PRN, nausea, vomiting, 1st line, Starting on 11/15/24 at 1157, If administering by mouth, place tablet on tongue and allow to dissolve., Indications: Nausea and VomitingIndications:Nausea and Vomiting Given 11/17/2024 6:07 AM CDT 4 mg Given 11/16/2024 5:06 PM CDT 4 mg oxyCODONE (ROXICODONE) tablet 5 mg 5 mg, oral, Once, On [place] 11/13/24 at 1945, For 1 dose, Indications: PainIndications:Pain Given 11/13/2024 7:30 PM CDT 5 mg oxyCODONE (ROXICODONE) tablet 5 mg 5 mg, oral, Every 4 hours PRN, 2nd line for pain, Starting on Sun11/14/24 at 0915, Indications: PainIndications:Pain Given 11/14/2024 1:25 PM CDT 5 mg Given 11/14/2024 9:34 AM CDT 5 mg oxyCODONE (ROXICODONE) tablet 5 mg 5 mg, oral, Every 4 hours PRN, 1st line for pain, Starting on Sun11/14/24 at 1350, Indications: PainIndications:Pain Given 11/22/2024 12:09 AM CDT 5 mg Given 11/21/2024 8:06 PM CDT 5 mg Given 11/21/2024 3:03 PM CDT 5 mg oxyCODONE (ROXICODONE) tablet 7.5 mg 7.5 mg, oral, Every 4 hours PRN, 1st line for pain, Starting on 11/22/24 at 0949, Indications: PainIndications:Pain Given 11/30/2024 8:59 PM CDT 7.5 mg Given 11/29/2024 10:47 PM CDT 7.5 mg Given 11/29/2024 1:36 PM CDT 7.5 mg perflutren lipid (DEFINITY) 1.5 mL in sodium chloride 0.9% 10 mL syringe 1-10 mL, intravenous, Once in imaging, contrast, Starting on Sun11/14/24 at 0711, For 1 dose, Intra-Procedure (CV) perflutren protein-a (OPTISON) 3 mL in sodium chloride 0.9% 8 mL syringe 1-8 mL, intravenous, Once in imaging, contrast, Starting on Sun11/14/24 at 0832, For 1 dose, Intra-Procedure (CV) Contrast Given 11/14/2024 8:32 AM CDT 3 mL prochlorperazine (COMPAZINE) injection 5 mg 5 mg, intravenous, Administer over 2 Minutes, Every 6 hours PRN, nausea, vomiting, Starting on 11/15/24 at 1137 Given 11/15/2024 11:47 AM CDT 5 mg prochlorperazine (COMPAZINE) injection 5 mg 5 mg, intravenous, Administer over 2 Minutes, Every 6 hours PRN, nausea, vomiting, 2nd line, Starting on 11/15/24 at 1158 Given 12/02/2024 10:10 AM CDT 5 mg rosuvastatin (CRESTOR) tablet 40 mg 40 mg, oral, Daily, First dose on [place] 11/13/24 at 1634 Given 12/02/2024 8:20 AM CDT 40 mg Given 12/01/2024 8:11 AM CDT 40 mg Given 11/30/2024 8:24 AM CDT 40 mg sertraline (ZOLOFT) tablet 100 mg 100 mg, oral, Daily, First dose on Sun11/13/24 at 1634 Given 12/02/2024 8:19 AM CDT 100 mg Given 12/01/2024 8:11 AM CDT 100 mg Given 11/30/2024 8:24 AM CDT 100 mg sodium chloride 0.9% flush 0.5-20 mL 0.5-20 mL, intra-catheter, Every 8 hours scheduled, First dose on [place] 11/13/24 at 1634, Flush volume based on line type and size. , Indications: FlushingIndications:Flushing Given 12/02/2024 5:01 AM CDT 10 mL Given 12/01/2024 9:41 PM CDT 10 mL Given 12/01/2024 6:16 AM CDT 10 mL sodium chloride 0.9% flush 0.5-20 mL 0.5-20 mL, intra-catheter, As needed, line care, Starting on Sun11/25/24 at 1428, Pre-Op, Flush volume based on line type and size. Flush before and after each use. Given 11/25/2024 2:51 PM CDT 10 mL Given 11/25/2024 2:50 PM CDT 10 mL sodium chloride 0.9% flush 10-20 mL 10-20 mL, intra-catheter, As needed, line care, Starting on Sun11/26/24 at 0819, To saline lock: Flush with 10mL per lumen. Flush with 20mL after obtaining a blood sample in lumen utilized. Saline flush syringes are single lumen use, do not use same syringe on multiple lumens. Use postive pressure disconnect: pulsitile flush--> clamp--> then disconnect syringe. sodium chloride 0.9% flush 10-40 mL 10-40 mL, intra-catheter, Every 12 hours scheduled, First dose on Sun11/26/24 at 0900, To saline lock: Flush with 10mL per lumen. Flush with 20mL after obtaining a blood sample in lumen utilized. Saline flush syringes are single lumen use, do not use same syringe on multiple lumens. Use postive pressure disconnect: pulsitile flush--> clamp--> then disconnect syringe. Given 12/02/2024 8:33 AM CDT 10 mL Given 12/01/2024 9:41 PM CDT 10 mL Given 11/30/2024 9:17 PM CDT 10 mL sodium chloride 0.9% infusion 30 mL/hr, intravenous, Continuous, Starting on Sun11/19/24 at 1300, Pre-Procedure (CV) New Bag 11/30/2024 12:50 AM CDT 30 mL/hr 30 mL/hr New Bag 11/25/2024 2:59 PM CDT 30 mL/hr 30 mL/hr New Bag 11/19/2024 12:16 PM CDT 30 mL/hr 30 mL/hr sodium chloride 0.9% infusion 30 mL/hr, intravenous, Continuous, Starting on Sun11/25/24 at 1500, Pre-Op Restarted 11/29/2024 9:59 PM CDT 30 mL/hr 30 mL/h r sodium chloride 0.9% IVPB 0-250 mL 0-250 mL, intravenous, Once, On Sun11/25/24 at 0745, For 1 dose, Prime blood tubing and administer amount needed to clear line (usually 50-100 mL) after transfusion complete. New Bag 11/25/2024 10:00 AM CDT 50 mL traZODone (DESYREL) tablet 100 mg 100 mg, oral, Nightly, First dose on Sun11/13/24 at 2100 Given 12/01/2024 9:06 PM CDT 100 mg Given 11/30/2024 8:59 PM CDT 100 mg Given 11/29/2024 9:47 PM CDT 100 mg warfarin (COUMADIN) split tablet 1.5 mg 1.5 mg, oral, 3 times weekly (Once per day on Sunday), First dose on Sun11/26/24 at 2000, Target INR: 2.5 - 3.5, Indications: Mechanical Valve Thromboembolism ProphylaxisIndications:Mechanical Valve Thromboembolism Prophylaxis Given 11/28/2024 9:18 AM CDT 1.5 mg Given 11/26/2024 9:17 PM CDT 1.5 mg warfarin (COUMADIN) split tablet 1.5 mg 1.5 mg, oral, Once, On Sun11/28/24 at 1445, For 1 dose, Target INR: 2 - 3, Indications: Mechanical Valve Thromboembolism ProphylaxisIndications:Mechanical Valve Thromboembolism Prophylaxis Given 11/28/2024 2:17 PM CDT 1.5 mg warfarin (COUMADIN) tablet 3 mg 3 mg, oral, 4 times weekly (Once per day on Sunday), First dose on Sun11/27/24 at 0900, Target INR: 2.5 - 3.5, Indications: Mechanical Valve Thromboembolism ProphylaxisIndications:Mechanical Valve Thromboembolism Prophylaxis Given 11/27/2024 8:39 AM CDT 3 mg warfarin (COUMADIN) tablet 3 mg 3 mg, oral, Daily (for warfarin), First dose (after last modification) on 11/29/24 at 1800, Target INR: 2 - 3, Indications: Mechanical Valve Thromboembolism ProphylaxisIndications:Mechanical Valve Thromboembolism Prophylaxis Given 11/29/2024 6:12 PM CDT 3 mg warfarin (COUMADIN) tablet 4 mg 4 mg, oral, Daily (for warfarin), First dose (after last modification) on 11/30/24 at 1800, Target INR: 2 - 3, Indications: Mechanical Valve Thromboembolism ProphylaxisIndications:Mechanical Valve Thromboembolism Prophylaxis Given 12/01/2024 5:02 PM CDT 4 mg Given 11/30/2024 5:00 PM CDT 4 mg documented in this encounter Discontinued Medications Medication Sig Discontinue Reason Start Date End Da te aspirin 81 mg enteric coated tabletIndications:S/P CABG x 1 Take 1 tablet (81 mg total) by mouth daily Therapy completed 06/13/2024 11/13/2024 tamsulosin (FLOMAX) 0.4 mg extended release capsuleIndications:Le ft flank pain TAKE 1 CAPSULE BY MOUTH EVERY DAY Therapy completed 09/13/2024 11/13/2024 diphenhydrAMINE 25 mg capsule Take 2 tablet/capsule (50 mg total) by mouth nightly as needed for sleep Therapy completed 11/13/2024 furosemide (LASIX) 20 mg tabletIndications:Chr onic heart failure with preserved ejection fraction (HCC) Take 1 tablet (20 mg total) by mouth daily Stop Taking at Discharge 06/13/2024 12/02/2024 spironolactone (ALDACTONE) 25 mg tablet TAKE 1 TABLET (25 MG TOTAL) BY MOUTH DAILY. Stop Taking at Discharge 07/17/2024 12/02/2024 cyclobenzaprine (FLEXERIL) 5 mg tablet Take 1 tablet (5 mg total) by mouth 3 (three) times a day as needed for muscle spasms Stop Taking at Discharge 09/23/2024 12/02/2024 warfarin (COUMADIN) 3 mg tablet TAKE 1 TAB BY MOUTH 4 DAYS A WEEK AND TAKE 0.5 TABLET 3 DAYS A WEEK OR DIRECTED BY PHYSICIAN Stop Taking at Discharge 11/11/2024 12/02/2024 documented as of this encounter Active and Recently Administered Medications Times are shown in CDT. Scheduled Medication Order 11/30/2024 12/01/2024 12/02/2024 acetaminophen (TYLENOL) tablet 1,000 mg 1,000 mg, oral, Every 6 hours scheduled, First dose (after last modification) on Sun11/14/24 at 1200, Indications: Fever, Pain 0513 (Not Given - Provider: Bettina Mcintosh RN - Reason: Patient/family refused)1204 (Given - Provider: Jeferson Langley RN)1700 (Given - Provider: Jeferson Langley RN)2356 (Given - Provider: Tara Briones RN) 0614 (Given - Provider: Tara Briones RN)1211 (Given - Provider: Jeferson Langley RN)1702 (Given - Provider: Jeferson Langley RN) 0005 (Not Given - Provider: Tara Briones RN - Reason: Patient/family refused - Comment: pt denies pain)0501 (Given - Provider: Tara Briones RN)1150 (Not Given - Provider: Colin Noel RN - Reason: Patient/family refused) ampicillin 2,000 mg/60 mL in sterile water IVPB (premix) 2,000 mg (CANCELED) 2,000 mg, intravenous, at 120 mL/hr, Administer over 30 Minutes, Every 6 hours scheduled, First dose on Sun11/14/24 at 0915, Indications: ostemyelitis - positive blood culture to e. faecalis 0419 (New Bag - Provider: Bettina Mcintosh RN)1016 (New Bag - Provider: Jeferson Langley RN)1609 (New Bag - Provider: Jeferson Langley RN)2208 (New Bag - Provider: Tara Briones RN) 0415 (New Bag - Provider: Tara Briones RN)1019 (New Bag - Provider: Jeferson Langley RN)1515 (New Bag - Provider: Jeferson Langley, MARIA DE JESUS)2135 (New Bag - Provider: Tara Briones RN) 0434 (New Bag - Provider: Taar Briones RN) ampicillin 2,000 mg/60 mL in sterile water IVPB (premix) 2,000 mg 2,000 mg, intravenous, at 120 mL/hr, Administer over 30 Minutes, Every 6 hours scheduled, First dose (after last modification) on Sun12/02/24 at 1000, For 35 days, Indications: ostemyelitis - positive blood culture to e. faecalis 1005 (New Bag - Provider: Colin Noel RN) carvediloL (COREG) tablet 12.5 mg 12.5 mg, oral, 2 times daily with meals (bkfst, dinner), First dose (after last modification) on Sun12/01/24 at 1445 1504 (Given - Provider: Jeferson Langley RN) 0819 (Given - Provider: Colin Noel RN) cefTRIAXone (ROCEPHIN) 2,000 mg/20 mL in sterile water (premix) 2,000 mg (CANCELED) 2,000 mg, intravenous, at 240 mL/hr, Administer over 5 Minutes, Every 12 hours scheduled, First dose (after last modification) on Sun11/14/24 at 2100, Indications: Bone/Joint Infection 0824 (Given - Provider: Jeferson Langley RN)2112 (Given - Provider: Tara Briones RN) 809 (Given - Provider: Jeferson Langley RN)2120 (Given - Provider: Tara Briones RN) cefTRIAXone (ROCEPHIN) 2,000 mg/20 mL in sterile water (premix) 2,000 mg 2,000 mg, intravenous, at 240 mL/hr, Administer over 5 Minutes, Every 12 hours scheduled, First dose (after last modification) on Sun12/02/24 at 0900, For 35 days, Indications: Bone/Joint Infection 0820 (Given - Provider: Colin Noel RN) enoxaparin (LOVENOX) syringe 60 mg (CANCELED) 60 mg (rounded from 63.1 mg = 1 mg/kg 63.1 kg), subcutaneous, Daily, First dose on Sun11/29/24 at 1000, Indications: Mechanical Valve Thromboembolism Prophylaxis 0824 (Given - Provider: Jeferson Langley RN) 0810 (Given - Provider: Jeferson Langley RN) famotidine (PEPCID) tablet 40 mg 40 mg, oral, Daily, First dose on Leslie 11/13/24 at 1634 0824 (Given - Provider: Jeferson Langley RN) 0810 (Given - Provider: Jeferson Langley RN) 0819 (Given - Provider: Colin Noel RN) fluticasone propionate (FLONASE) 50 mcg/actuation nasal spray 2 spray 2 spray, each nostril, Daily, First dose on Leslie 11/13/24 at 1634 1127 (Not Given - Provider: Jeferson Langley RN - Reason: Patient/family refused) 0907 (Not Given - Provider: Jeferson Langley RN - Reason: Patient/family refused) 0833 (Not Given - Provider: Colin Noel RN - Reason: Patient/family refused) hjhpakjofst-bnryxsbuf-juo anter (TRELEGY ELLIPTA) 200-62.5-25 mcg inhaler 1 puff 1 puff, inhalation, Daily, First dose (after last modification) on Sun11/14/24 at 0900, Rinse mouth with water after use. Do not swallow. RN to give 1127 (Not Given - Provider: Jeferson Langley RN - Reason: Patient/family refused) 0907 (Not Given - Provider: Jeferson Langley RN - Reason: Patient/family refused) 0833 (Not Given - Provider: Colin Noel RN - Reason: Patient/family refused) gabapentin (NEURONTIN) capsule 300 mg 300 mg, oral, 3 times daily, First dose on Sun11/22/24 at 1030 0824 (Given - Provider: Jeferson Langley RN)1609 (Given - Provider: Jeferson Langley RN)2059 (Given - Provider: Tara Briones RN) 0810 (Given - Provider: Jeferson Langley RN)1504 (Given - Provider: Jeferson Langley RN)2106 (Given - Provider: Tara Briones RN) 0819 (Given - Provider: Colin Noel RN) lidocaine (LIDODERM) 5 % patch 1 patch 1 patch, transdermal, Administer over 12 Hours, Every 24 hours, First dose on Sun11/21/24 at 2300, Do not cover the holes on the top side of the patch., Apply to affected area: back 2315 (Not Given - Provider: Tara Briones RN - Reason: Patient/family refused) 0000 (Not Given - Provider: Tara Briones RN - Reason: Patient/family refused) methocarbamoL (ROBAXIN) tablet 750 mg 750 mg, oral, 3 times daily, First dose (after last modification) on Leslie 11/20/24 at 0900 0824 (Given - Provider: Jeferson Langley RN)1609 (Given - Provider: Jeferson Langley RN)2059 (Given - Provider: Tara Briones RN) 0810 (Given - Provider: Jeferson Langley RN)1504 (Given - Provider: Jeferson Langley RN)2106 (Given - Provider: Tara Briones RN) 0825 (Given - Provider: Colin Noel RN) rosuvastatin (CRESTOR) tablet 40 mg 40 mg, oral, Daily, First dose on Leslie 11/13/24 at 1634 0824 (Given - Provider: Jeferson Langley RN) 0811 (Given - Provider: Jeferson Langley RN) 0820 (Given - Provider: Colin Noel, MARIA DE JESUS) sertraline (ZOLOFT) tablet 100 mg 100 mg, oral, Daily, First dose on Leslie 11/13/24 at 1634 0824 (Given - Provider: Jeferson Langley RN) 0811 (Given - Provider: Jeferson Langley RN) 0819 (Given - Provider: Cloin Noel RN) sodium chloride 0.9% flush 0.5-20 mL 0.5-20 mL, intra-catheter, Every 8 hours scheduled, First dose on Leslie 11/13/24 at 1634, Flush volume based on line type and size. , Indications: Flushing 0514 (Given - Provider: Bettina Mcintosh RN)1438 (Return to Cabinet - Provider: Jeferson Langley RN)2117 (Given - Provider: Tara Briones RN) 0616 (Given - Provider: Tara Briones RN)1446 (Return to Cabinet - Provider: Jeferson Langley RN)214 (Given - Provider: Tara Briones RN) 0501 (Given - Provider: Tara Briones RN)1400 [facility]: Colin Noel RN) sodium chloride 0.9% flush 10-40 mL 10-40 mL, intra-catheter, Every 12 hours scheduled, First dose on Sun11/26/24 at 0900, To saline lock: Flush with 10mL per lumen. Flush with 20mL after obtaining a blood sample in lumen utilized. Saline flush syringes are single lumen use, do not use same syringe on multiple lumens. Use postive pressure disconnect: pulsitile flush--> clamp--> then disconnect syringe. 1131 [facility]: Jeferson Langley RN)211 (Given - Provider: Tara Briones RN) 0908 (Return to [facility] - Provider: Jeferson Langley RN)214 (Given - Provider: Tara Briones RN) 0833 (Given - Provider: Colin Noel RN) spironolactone (ALDACTONE) tablet 25 mg 25 mg, oral, Daily, First dose on Leslie 11/13/24 at 1634, On hold since Sun11/14/2024 at 0918 until manually unheld 0900 (Dose Auto Held) 0900 (Dose Auto Held) 0900 (Hold - Provider: Colin Nole RN - Reason: See Provider Order)1806 (Unheld by Provider - Provider: Automatic Discharge Provider) traZODone (DESYREL) tablet 100 mg 100 mg, oral, Nightly, First dose on Leslie 11/13/24 at 2100 205 (Given - Provider: Tara Briones RN) 210 (Given - Provider: Tara Briones RN) warfarin (COUMADIN) tablet 4 mg 4 mg, oral, Daily (for warfarin), First dose (after last modification) on Sun11/30/24 at 1800, Target INR: 2 - 3, Indications: Mechanical Valve Thromboembolism Prophylaxis 1700 (Given - Provider: Jeferson Langley RN) 170 (Given - Provider: Jeferson Langley RN) Continuous Medication Order 11/30/2024 12/01/2024 12/02/2024 sodium chloride 0.9% infusion (CANCELED) 30 mL/hr, intravenous, Continuous, Starting on Sun11/19/24 at 1300, Pre-Procedure (CV) 0050 (New Bag - Provider: Bettina Mcintosh RN - Comment: duplicate order)0300 (Stopped - Provider: Bettina Mcintosh RN - Comment: duplicate order) PRN Medication Order 11/30/2024 12/01/2024 12/02/2024 albuterol HFA (PROVENTIL HFA,VENTOLIN HFA,PROAIR HFA) 90 mcg/actuation inhaler 2 puff 2 puff, inhalation, Every 4 hours PRN (respiratory medicine physician), wheezing, shortness of breath, Starting on Leslie 11/13/24 at 1638 2134 (Given - Provider: Tara Briones RN) 0459 (Given - Provider: Tara Briones RN) Carrier Fluids for Secondary Infusion - 0.9% Sodium Chloride 30 mL, intravenous, As needed, For priming tubing and/or flushing, Starting on Leslie 11/13/24 at 1633, 0-250 ml/hr to flush line after IV infusions when no maintenance IV ordered. Infuse 30mL at the same rate as the secondary infusion. Run as primary IV, not intended for KVO. hydrOXYzine (ATARAX) tablet 10 mg 10 mg, oral, Every 4 hours PRN, anxiety, 1st line for anxiety, Starting on 11/24/24 at 1225 LORazepam (ATIVAN) tablet 0.25 mg 0.25 mg, oral, Every 6 hours PRN, anxiety, 2nd line for anxiety, Starting on 11/24/24 at 1225 ondansetron (ZOFRAN) injection 4 mg(Linked Group 1) 4 mg, intravenous, Administer over 2 Minutes, Every 6 hours PRN, nausea, vomiting, if not tolerating PO, Starting on 11/15/24 at 1157, Indications: Nausea and Vomiting 0807 (Given - Provider: Colin Noel RN) ondansetron ODT (ZOFRAN-ODT) disintegrating tablet 4 mg(Linked Group 1) 4 mg, oral, Every 6 hours PRN, nausea, vomiting, 1st line, Starting on 11/15/24 at 1157, If administering by mouth, place tablet on tongue and allow to dissolve., Indications: Nausea and Vomiting 0807 (See Alternativ e - Provider: Colin Noel RN) oxyCODONE (ROXICODONE) tablet 7.5 mg 7.5 mg, oral, Every 4 hours PRN, 1st line for pain, Starting on 11/22/24 at 0949, Indications: Pain 2058 (Given - Provider: Tara Briones RN) perflutren lipid (DEFINITY) 1.5 mL in sodium chloride 0.9% 10 mL syringe 1-10 mL, intravenous, Once in imaging, contrast, Starting on Sun11/14/24 at 0711, For 1 dose, Intra-Procedure (CV) polyethylene glycol (MIRALAX) packet 17 g 17 g, oral, Daily PRN, constipation, Starting on Leslie 11/13/24 at 1633, Indications: constipation prochlorperazine (COMPAZINE) injection 5 mg 5 mg, intravenous, Administer over 2 Minutes, Every 6 hours PRN, nausea, vomiting, 2nd line, Starting on 11/15/24 at 1158 1010 (Given - Provider: Colin Noel RN) sodium chloride 0.9% flush 0.5-20 mL 0.5-20 mL, intra-catheter, As needed, line care, Starting on Leslie 11/13/24 at 1633, Flush volume based on line type and size. Flush before and after each use. , Indications: Flushing sodium chloride 0.9% flush 10-20 mL 10-20 mL, intra-catheter, As needed, line care, Starting on 11/26/24 at 0819, To saline lock: Flush with 10mL per lumen. Flush with 20mL after obtaining a blood sample in lumen utilized. Saline flush syringes are single lumen use, do not use same syringe on multiple lumens. Use postive pressure disconnect: pulsitile flush--> clamp--> then disconnect syringe. Linked Groups Order Group 1: ondansetron ODT (ZOFRAN-ODT) disintegrating tablet 4 mgJump to med 4 mg, oral, Every 6 hours PRN, nausea, vomiting, 1st line, Starting on 11/15/24 at 1157, If administering by mouth, place tablet on tongue and allow to dissolve., Indications: Nausea and Vomiting Or ondansetron (ZOFRAN) injection 4 mgJump to med 4 mg, intravenous, Administer over 2 Minutes, Every 6 hours PRN, nausea, vomiting, if not tolerating PO, Starting on 11/15/24 at 1157, Indications: Nausea and Vomiting documented in this encounter Orders Medications Ordered That Ben ht Not Have Been Administered Count Last Ordered Date First Ordered Date carvediloL (COREG) tablet 12.5 mg 1 025 warfarin (COUMADIN) tablet 5 mg 1 warfarin (COUMADIN) split tablet 1.5 mg 2 0 11/28/2024 warfarin (COUMADIN) tablet 3 mg 1 Lactated Ringer's (LR) bolus 500 mL 1 11/27 hydrOXYzine (ATARAX) tablet 25 mg 1 025 lidocaine (PF) (XYLOCAINE) 1 0 mg/mL (1 %) preservative free injection 10-20 mg 1 11/26/2024 sodium chloride 0.9% flush 10-20 mL 1 11/26 Carrier Fluids for Secondary Infusion - 0.9% Sodium Chloride 2 11/25/2024 11/13/2024 ceFAZolin (ANCEF) 2,000 mg/2 0 mL in sterile water (premix) 2,000 mg 1 11/25/2024 haloperidol lactate (HALDOL) injection 1 mg 1 11/25/2024 hydrALAZINE (APRESOLINE) injection 5 mg 1 0 11/25/2024 ipratropium-albuteroL (DUO-N EB) 0.5-2.5 mg/3 mL nebulizer solution 3 mL 1 11/25/2024 labetaloL (NORMODYNE,TRANDAT E) injection 5 mg 1 11/25/2024 naloxone (NARCAN) 0.4 mg/mL injection 0.04-0.4 mg 1 11/25/2024 oxyCODONE (ROXICODONE) tablet 5 mg 2 202411/14/2024 prochlorperazine (COMPAZINE) injection 5 mg 1 11/25/2024 sodium chloride 0.9% irrigation 1 vancomycin 1,000 mg/200 mL i n dextrose 5% (premix) 1,000 mg 1 11/25/2024 LORazepam (ATIVAN) tablet 0.25 mg 1 025 nitrofurantoin monohydrate ( MACROBID) capsule 100 mg 1 11/19/2024 HYDROmorphone (DILAUDID) injection 0.2 mg 1 11/14/2024 perflutren lipid (DEFINITY) 1.5 mL in sodium chloride 0.9% 10 mL syringe 1 11/14/2024 acetaminophen (TYLENOL) tablet 1,000 mg 1 0 11/13/2024 acetaminophen (TYLENOL) tablet 650 mg 1 02/2025 bhzsmlqakpk-gcihhyocz-wqbcrs er (TRELEGY ELLIPTA) 100-62.5-25 mcg inhaler 1 puff 1 11/13/2024 nmkyjauohue-slesccuur-tgteol er (TRELEGY ELLIPTA) 200-62.5-25 mcg inhaler 1 puff 1 11/13/2024 heparin 1,000 unit/mL inject ion 2,000 Units 2 11/13/2024 heparin 1,000 unit/mL inject ion 3,000 Units 2 11/13/2024 heparin in 0.45% sodium chlo ride 25,000 units/250 mL (100 units/mL) infusion (premix) 1 11/13/2024 ondansetron ODT (ZOFRAN-ODT) disintegrating tablet 4 mg 1 11/13/2024 polyethylene glycol (MIRALAX) packet 17 g 1 11/13/2024 sodium chloride 0.9% flush 0.5-20 mL 1 02/2025 spironolactone (ALDACTONE) tablet 25 mg 1 0 11/13/2024 Lab Orders Without Results Count Last Ordered D ate First Ordered Date HEPATIC FUNCTION PANEL 3 12/02/202411/20 HEPARIN ANTI FACTOR XA ACTIVITY 1 APTT 2 11/24/2024 11/22/2024 PROTIME-INR 1 11/17/2024 Nursing Count Last Ordered Date First Orde red Date NURSING COMMUNICATION 4 11/25/20242024 ASSESS 1 11/17/2024 ACTIVITY 1 11/13/2024 MAINTAIN IV ACCESS 1 11/13/2024 NOTIFY PROVIDER (SPECIFY) 1 11/13/2024 WEIGH PATIENT 1 11/13/2024 Consult Count Last Ordered Date First Orde red Date IP CONSULT TO VASCULAR ACCESS TEAM 2 202411/14/2024 IP CONSULT TO ANESTHESIOLOGY 1 11/21/2024 CONSULT TO GENERAL INFECTIOUS DISEASE 1 03/2025 IP CONSULT TO ELECTROPHYSIOLOGY 1 IP CONSULT TO NEUROSURGERY 1 11/13/2024 Admission Count Last Ordered Date First Orde red Date ADMIT TO INPATIENT 1 11/13/2024 Discharge Count Last Ordered Date First Orde red Date DISCHARGE PATIENT 1 12/02/2024 CORE MEASURES Count Last Ordered Date First Ord ered Date REASON FOR NO VTE PROPHYLAXIS AT ADMISSION 1 11/13/2024 documented in this encounter Care Teams Apparel Sales Leader Relationship Specialty Start Date End Date Quirino Berger MD [address] [place] [address] PCP - General Family Medicine 08/01/21 Frantz Lewis, RN [address] [place] [address] [address] [place] [address] Early Childhood Assistant 08/24/23 Blake Dee MD [address] [facility] [address] [place] [id number] Consulting Physician Cardiology 05/28/24 documented as of this encounter
--- OUTSIDE RECORDS SUMMARY | 2024-12-04 00:02 | XMS_ITS | Referral Summary ---
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 Role Phone Quirino Berger MD Primary Care Provider Frantz Lewis RN Unavailable [phone] Blake Dee MD Unavailable Encounters Date Type Department Care Team Description 5 Documentation [facility] 1 [place] [phone] Abigail Rodriguez [facility] 5 12:47 PM CDT - 5 1:42 PM CDT Hospital Encounter [facility] 1 [place] [phone] Javier Bryant MD Martin, Nathan R., MD Lee, Lyndon K., MD Hoemann, MD Juan More, Brittney Peñaloza MD Chronic midline thoracic back pain (Primary Dx); Bacteremia due to Enterococcus Discharge Disposition: Discharge to SNF 5 Orders Only [facility] Cardiology [facility] Advanced Medicine 8th [place] [address] [place] [phone] Sameer La MD PhD 5 Orders Only [facility] Cardiology [facility] Medicine 8th [place] [address] [place] [phone] Sameer La MD PhD Chronic diastolic congestive heart failure, NYHA class 3 (HCC) (Primary Dx) 5 Telephone [facility] Cardiology [address] [place] [address] 8th [address] [place] [phone] Sameer La MD PhD 5 Documentation [facility] Infectious Diseases [address] [facility][Note 3] [address] [place] [phone] Cielo Soler, JULIETA OPAT Sign-Off 5 6:40 PM CDT Ancillary Procedure [facility] Operating Room 1 [place] [phone] 5 Telephone [facility] Primary Care at [address] [phone] Quirino Berger MD LINDA Questions 5 2:50 PM CDT - 5 6:00 PM CDT Surgery [facility] Operating Room 1 [place] [phone] Milad Rg MD REMOVAL PACEMAKER GENERATOR/LEADS 5 6:44 PM CDT Anesthesia Event [facility] Operating Room 1 [place] [phone] Shai Mercado MD PhD Ridenour, Rebekah Elizabeth, NP 5 12:43 PM CDT Anesthesia Event [facility] 1 [place] [phone] Ector Anderson MD Matlock, Robert Young, CRNA 5 Orders Only [facility] 1 [place] [address] Alissa Cho, MARIA DE JESUS 5 Orders Only [facility] 1 [place] [address] Jing Mireles, MARIA DE JESUS 5 Orders Only [facility] 1 [place] [address] George Figueroa, MARIA DE JESUS 5 Orders Only 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] (Primary Dx) [address] [place], [place] [phone] Kendrcik Bo 5 Results Follow-Up [facility] Nephrology at [address] [place] [address] Sukhwinder Brnuer MD CBC with auto differential, Iron profile w/ IBC, Ferritin, Differential, auto 5 Results Follow-Up [facility] Primary Care at [address] [phone] Quirino Berger MD Thyroid Function [place], Vitamin D 25 hydroxy, Lipid panel, Additional followed-up results: 4 5 Anticoagulation Visit [facility] Cardiology [address] [facility] [address] [place] [address] 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 (Primary Dx); Atrial fibrillation, unspecified type (HCC) 5 2:46 PM CDT - 5 11:59 PM CDT Hospital Encounter [facility] [address] [place] [phone] Status post mechanical aortic valve replacement; Paroxysmal atrial fibrillation (HCC); Chronic anticoagulation; Stage 3b chronic kidney disease (HCC); Anemia in stage 3b chronic kidney disease (HCC) Discharge Disposition: Discharge to home or self care 5 1:42 PM CDT - 5 11:59 PM CDT Hospital Encounter [address] [address] Status post mechanical aortic valve replacement; Paroxysmal atrial fibrillation (HCC); Chronic anticoagulation Discharge Disposition: Discharge to home or self care 5 1:38 PM CDT - 5 11:59 PM CDT Hospital Encounter [address] [address] Essential hypertension; Stage 3a chronic kidney disease (HCC); Vitamin D deficiency; Mixed hyperlipidemia; Gastroesophageal reflux disease without esophagitis Discharge Disposition: Discharge to home or self care 5 1:30 PM CDT Lab [facility] Outpatient Lab at [address] [phone] 5 Orders Only [facility] Primary Care at [address] [phone] Darling Fry NP 5 Results Follow-Up [facility] Nephrology at [address] [facility] [place] [phone] Sukhwinder Bruner MD Basic metabolic panel, Haptoglobin, Hemoglobin and hematocrit, Additional followed-up results: 3 5 Anticoagulation Visit [facility] Cardiology [address] [facility] [address] [place] [address] Denisse Hsu RN care home (current) use of anticoagulants (Primary Dx); Atrial fibrillation, unspecified type (HCC) 5 9:13 PM CDT - 5 11:59 PM CDT Hospital Encounter [address] [address] Status post mechanical aortic valve replacement; Paroxysmal atrial fibrillation (HCC); Chronic anticoagulation Discharge Disposition: Discharge to home or self care 5 3:21 PM CDT - 5 11:59 PM CDT Hospital Encounter [address] [address] Anemia in stage 3b chronic kidney disease (HCC); Secondary hyperparathyroidism Discharge Disposition: Discharge to home or self care 5 3:30 PM CDT Lab [facility] Outpatient Lab at [address] [phone] Chronic anticoagulation (Primary Dx) 5 11:00 AM CDT Ancillary Procedure [facility] Cardiology [address] [facility] [address] [place] [phone] Chronic diastolic congestive heart failure, NYHA class 3 (HCC) (Primary Dx); H/O cardiomyopathy; LBBB (left bundle branch block); Atrial fibrillation, unspecified type (HCC); Chronic heart failure with preserved ejection fraction (HCC); Status post biventricular pacemaker 5 Results Follow-Up [facility] Nephrology at [address] [place] [phone] Blake Piper MD CBC with auto differential, Vitamin D 25 hydroxy, Renal function panel, Additional followed-up results: 5 5 Anticoagulation Visit [facility] Cardiology [address] [facility] [address] [place] [phone] 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 (Primary Dx); Atrial fibrillation, unspecified type (HCC) 5 1:13 PM CDT - 5 11:59 PM CDT Hospital Encounter [address] [address] Stage 3b chronic kidney disease (HCC) Discharge Disposition: Discharge to home or self care 5 1:13 PM CDT - 5 11:59 PM CDT Hospital Encounter [address] [address] Status post mechanical aortic valve replacement; Paroxysmal atrial fibrillation (HCC); Chronic anticoagulation Discharge Disposition: Discharge to home or self care 5 Telephone [facility] Primary Care at [address] [phone] Quirino Berger MD 5 1:15 PM CDT Lab [facility] Outpatient Lab at [address] [phone] Atrial fibrillation (HCC) (Primary Dx) 5 10:30 AM CDT Office Visit [facility] Nephrology at [address] [place] [address] Sukhwinder Bruner MD Essential hypertension (Primary Dx); Stage 3b chronic kidney disease (HCC); Aortic valve replaced; Chronic heart failure with preserved ejection fraction (HCC); Secondary hyperparathyroidism; Anemia in stage 3b chronic kidney disease (HCC) 5 Telephone [facility] Primary Care at [address] [phone] Quirino Berger MD Pa for Cyclobenzaprine HCl 5MG tablets from Last 3 Months Allergies Active Allergy Reactions Criticality Noted Date Comments Atropine Hypotension High 10/26/2011 SEVERE hypotension Hydrocodone-Acetamino phen Itching Medium 09/12/2013 Sulfa (Sulfonamide Antibiotics) Nausea only Low 06/21/2022 Sulfites Nausea And Vomiting High 10/26/2011 Medications albuterol HFA (Proventil HFA) 90 mcg/actuation inhalerIndications :Centrilobular emphysema (HCC) Inhale 2 puffs every 4 (four) hours as needed for wheezing or shortness of breath 6.73 each 4 023 2024 Active Breztri Aerosphere 160-9-4.8 mcg/actuation inhaler Inhale 2 puffs 2 (two) times a day 024 Active fluticasone propionate (FLONASE) 50 mcg/actuation nasal spray Administer 2 sprays into each nostril daily 3 each 4 024 Active carvediloL (COREG) 12.5 mg tablet TAKE 1 TABLET BY MOUTH TWICE A DAY WITH FOOD 180 tablet 3 024 Active famotidine (PEPCID) 40 mg tabletIndications: Gastroesophageal reflux disease without esophagitis Take 1 tablet (40 mg total) by mouth daily 90 tablet 2 024 Active rosuvastatin (CRESTOR) 40 mg tabletIndications: Mixed hyperlipidemia Take 1 tablet (40 mg total) by mouth daily 90 tablet 3 024 2024 Active sertraline (ZOLOFT) 100 mg tablet TAKE 1 TABLET BY MOUTH EVERY DAY 90 tablet 1 025 Active ondansetron ODT (ZOFRAN-ODT) 4 mg disintegrating tablet Take 1 tablet (4 mg total) by mouth every 8 (eight) hours as needed for nausea or vomiting 20 tablet 025 Active cholecalciferol (VITAMIN D-3) 2000 unit tablet Take 1 tablet (2,000 Units total) by mouth daily Active ferrous sulfate 325 mg (65 mg of elemental iron) tabletIndications: Stage 3b chronic kidney disease (HCC),Anemia in stage 3b chronic kidney disease (HCC) Take 1 tablet (325 mg total) by mouth daily with breakfast 025 2025 Active traZODone (DESYREL) 50 mg tabletIndications: Insomnia due to medical condition TAKE 2 TABLETS BY MOUTH NIGHTLY 180 tablet 1 025 Active hydrocortisone (ANUSOL-HC) 1 % cream with perineal applicator APPLY TO AFFECTED AREA TWICE A DAY 28.4 g 1 Active gabapentin (NEURONTIN) 300 mg capsule Take 1 capsule (300 mg total) by mouth 3 (three) times a day 90 capsule 11 025 2025 Active hydrOXYzine (ATARAX) 10 mg tablet Take 1 tablet (10 mg total) by mouth every 4 (four) hours as needed for anxiety (1st line for anxiety) Active lidocaine (LIDODERM) 5 % Place 1 patch on the skin daily for 12 hours Remove & discard patch within 12 hours or as directed by . 025 2024 Active LORazepam (ATIVAN) 0.5 mg tablet Take 0.5 tablets (0.25 mg total) by mouth every 6 (six) hours as needed for anxiety (2nd line for anxiety) Active methocarbamoL (ROBAXIN) 750 mg tablet Take 1 tablet (750 mg total) by mouth 3 (three) times a day Active oxyCODONE (ROXICODONE) 15 mg immediate release tabletIndications: Pain Take 0.5 tablets (7.5 mg total) by mouth every 4 (four) hours as needed for pain for up to 5 days 10 tablet 2024 Active polyethylene glycol (MIRALAX) 17 gram/dose bulk powderIndications: constipation Take 17 g by mouth once for 1 dose Active warfarin (COUMADIN) 4 mg tabletIndications: Mechanical Valve Thromboembolism Prophylaxis Take 1 tablet (4 mg total) by mouth daily Active cefTRIAXone (ROCEPHIN) syringeIndications :Bone/Joint Infection Infuse 20 mL (2,000 mg total) IV every 12 (twelve) hours for 5 minutes for 69 doses at 240 mL/hr 2024 Active ampicillin (OMNIPEN) (100 mg/mL) injection Infuse 20 mL (2,000 mg total) IV every 6 (six) hours for 5 minutes at 240 mL/hr Active ondansetron (ZOFRAN) 4 mg/2 mL injectionIndicatio ns:Nausea and Vomiting Infuse 2 mL (4 mg total) IV every 6 (six) hours as needed for nausea or vomiting (if not tolerating PO) for 2 minutes Active diphenhydrAMINE 25 mg capsule Take 2 tablet/capsul e (50 mg total) by mouth nightly as needed for sleep 2024 Discontinued(T herapy completed) aspirin 81 mg enteric coated tabletIndications: S/P CABG x 1 Take 1 tablet (81 mg total) by mouth daily 90 tablet 3 024 2024 Discontinued(T herapy completed) furosemide (LASIX) 20 mg tabletIndications: Chronic heart failure with preserved ejection fraction (HCC) Take 1 tablet (20 mg total) by mouth daily 90 tablet 3 024 2024 Discontinued(S top Taking at Discharge) spironolactone (ALDACTONE) 25 mg tablet TAKE 1 TABLET (25 MG TOTAL) BY MOUTH DAILY. 90 tablet 1 025 2024 Discontinued(S top Taking at Discharge) tamsulosin (FLOMAX) 0.4 mg extended release capsuleIndications :Left flank pain TAKE 1 CAPSULE BY MOUTH EVERY DAY 30 capsule 025 2024 Discontinued(T herapy completed) cyclobenzaprine (FLEXERIL) 5 mg tablet Take 1 tablet (5 mg total) by mouth 3 (three) times a day as needed for muscle spasms 30 tablet 025 2024 Discontinued(S top Taking at Discharge) warfarin (COUMADIN) 3 mg tablet TAKE 1 TAB BY MOUTH 4 DAYS A WEEK AND TAKE 0.5 TABLET 3 DAYS A WEEK OR DIRECTED BY PHYSICIAN 22 tablet 025 2024 Discontinued pramoxine (PROCTOFOAM) 1 % foamIndications:He morrhoids Insert into the rectum 5 times daily as needed for hemorrhoids, irritation or itching Apply topically to anal area as needed up to 5 times daily. 15 g 1 025 2024 Discontinued warfarin (COUMADIN) 3 mg tablet TAKE 1 TAB BY MOUTH 4 DAYS A WEEK AND TAKE 0.5 TABLET 3 DAYS A WEEK OR DIRECTED BY PHYSICIAN 66 tablet 1 025 2024 Discontinued(S top Taking at Discharge) Active Problems Problem Noted Date Diagnosed Date Fall 12/01/2024 Assessment & Plan (12/02/2024 1:05 PM CDT): Patient had a fall on 12/01 while taking a shower at 9:20. On coumadin 4mg/daily and full dose of lovenox. Presence of hematoma em right forehead.No loss of consciousness, nausea or vomit after event. Patient reports she lost her balance - 12/01 CT head and total spine - no acute intracranial processes - Repeat CT at 12/01 night no acute intracranial processes Assessment & Plan (12/01/2024 10:24 AM CDT): Patient had a fall on 12/01 while taking a shower at 9:20. On coumadin 4mg/daily and full dose of lovenox. Presence of hematoma em right forehead.No loss of consciousness, nausea or vomit after event. Patient reports she lost her balance - STAT CT head and total spine - pending reading - Neurocheck q6 HIT suspected - tested NEGATIVE 11/25/2024 Assessment & Plan (12/02/2024 1:05 PM CDT): Matias found with decrease of > 30% in her baseline platelets (204 from admission to 140 last lab) and down trending HB with no apparent bleeding (8.8 from adcmission to 6.6 last lab). HI T Ab positive but MELODY negative, Ruled out HIT. - Heparin (11/11 - 11/25) -> Bival () -> Lovenox (11/29-12/02) - Started bridge to coumadin on 11/26, completed on 12/02. Assessment & Plan (12/01/2024 10:24 AM CDT): Matias found with decrease of > 30% in her baseline platelets (204 from admission to 140 last lab) and down trending HB with no apparent bleeding (8.8 from adcmission to 6.6 last lab). 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 - Heparin (11/11 - 11/25) -> Bival () -> Lovenox (11/29-) - Started bridge to coumadin on 11/26 Assessment & Plan (11/30/2024 9:21 AM CDT): Matias found with decrease of > 30% in her baseline platelets (204 from admission to 140 last lab) and down trending HB with no apparent bleeding (8.8 from adcmission to 6.6 last lab). 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 - Heparin (11/11 - 11/25) -> Bival () -> Lovenox (11/29-) - Started bridge to coumadin on 11/26 Assessment & Plan (11/29/2024 12:38 PM CDT): Matias found with decrease of > 30% in her baseline platelets (204 from admission to 140 last lab) and down trending HB with no apparent bleeding (8.8 from adcmission to 6.6 last lab). 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 - Heparin (11/11 - 11/25) -> Bival started on 11/25 - Started bridge to coumadin on 11/26 - Peding final results Assessment & Plan (11/27/2024 9:07 AM CDT): Valentinanet found with decrease of > 30% in her baseline platelets (204 from admission to 140 last lab) and down trending HB with no apparent bleeding (8.8 from adcmission to 6.6 last lab) - HIT antibodies on 11/15 came back positive - Heparin (11/11 - 11/25) -> Bival started on 11/25 - Started bridge to coumadin on 11/26 Assessment & Plan (11/26/2024 8:39 AM CDT): Valentinanet found with decrease of > 30% in her baseline platelets (204 from admission to 140 last lab) and down trending HB with no apparent bleeding (8.8 from adcmission to 6.6 last lab) - HIT antibodies on 11/15 came back positive - Heparin (11/11 - 11/25) -> Bival started on 11/25 - Discuss bridge to coumadin Assessment & Plan (11/25/2024 10:23 AM CDT): Valentinanet found with decrease of > 30% in her baseline platelets (204 from admission to 140 last lab) and down trending HB with no apparent bleeding (8.8 from adcmission to 6.6 last lab) - HIT antibodies on 11/15 came back positive - Contacted surgical team and heparin will be d/c now and after procedure we will start bival. Pacemaker infection 11/21/2024 Assessment & Plan (12/02/2024 1:05 PM CDT): See above - Removal of pacemaker on 11/25 - Continue antibiotic, followed by ID - Plan discharge considering antibiotic therapy for 6 weeks and suppression for a year - EKG repeated more Assessment & Plan (12/01/2024 10:24 AM CDT): See above - Removal of pacemaker on 11/25 - Continue antibiotic, followed by ID - Plan discharge considering antibiotic therapy for 6 weeks and suppression for a year Assessment & Plan (11/30/2024 9:21 AM CDT): See above - Removal of pacemaker on 11/25 - Continue antibiotic, followed by ID - Plan discharge considering antibiotic therapy for 6 weeks and suppression for a year Assessment & Plan (11/29/2024 12:38 PM CDT): See above - Removal of pacemaker on 11/25 - Continue antibiotic, followed by ID - Plan discharge considering antibiotic therapy for 6 weeks and suppression for a year Assessment & Plan (11/28/2024 10:18 AM CDT): See above - Removal of pacemaker on 11/25 - Continue antibiotic, followed by ID - Plan discharge considering antibiotic therapy for 6 weeks and suppression for a year - Pending SNF placement after coumadin bridge is finalized. Assessment & Plan (11/27/2024 9:07 AM CDT): See above - Removal of pacemaker on 11/25 - Continue antibiotic, followed by ID - Plan discharge considering antibiotic therapy for 6 weeks and suppression for a year Assessment & Plan (11/26/2024 8:39 AM CDT): See above - Planning pacemaker removal for next week by CTS - Continue antibiotic, followed by ID - Consult vascular team on 11/26 for PICC line - Plan home infusion for antibiotics Assessment & Plan (11/25/2024 10:23 AM CDT): See above - Planning pacemaker removal for next week by CTS - Continue antibiotic, followed by ID Assessment & Plan (11/24/2024 11:21 AM CDT): See above - Planning pacemaker removal for next week by CTS - Continue antibiotic, followed by ID Assessment & Plan (11/23/2024 8:00 AM CDT): See above - Planning pacemaker removal for next week by CTS - Continue antibiotic, followed by ID Assessment & Plan (11/22/2024 10:35 AM CDT): See above - Planning pacemaker removal for next week by CTS - Continue antibiotic, followed by ID Osteomyelitis of thoracic spine 11/18/2024 Assessment & Plan (12/02/2024 1:05 PM CDT): See above Assessment & Plan (12/01/2024 10:24 AM CDT): See above Assessment & Plan (11/30/2024 9:21 AM CDT): See above Assessment & Plan (11/29/2024 12:38 PM CDT): See above Assessment & Plan (11/28/2024 10:18 AM CDT): See above Assessment & Plan (11/27/2024 9:07 AM CDT): See above Assessment & Plan (11/26/2024 8:39 AM CDT): See above Assessment & Plan (11/26/2024 10:21 AM CDT): MRI obtained 11/17 reporting T10-T11 vertebral bodies [...] CRP 3 and 6 weeks into treatment Assessment & Plan (11/25/2024 10:23 AM CDT): See above Assessment & Plan (11/24/2024 12:33 PM CDT): MRI obtained 11/17 reporting T10-T11 vertebral bodies [...] faecalis. Continue with current antibiotics.She continues to endorse back pain at rest and with movement but states it is worse with movement. Explained that symptoms should continue to get better with time as inflammation improves. Discussed that it is a slow process. Recommendations: -Continue Ampicillin and Ceftriaxone -Planning on 6 weeks of antibiotics. Final plan pending other results -Please obtain an ESR and CRP 3 and 6 weeks into treatment Assessment & Plan (11/24/2024 11:21 AM CDT): See above Assessment & Plan (11/23/2024 8:00 AM CDT): See above Assessment & Plan (11/22/2024 10:35 AM CDT): See above Assessment & Plan (11/21/2024 8:37 AM CDT): See above Assessment & Plan (11/20/2024 2:07 PM CDT): MRI obtained 11/17 reporting T10-T11 vertebral bodies [...] CRP 3 and 6 weeks into treatment Assessment & Plan (11/20/2024 2:00 PM CDT): See above Assessment & Plan (11/19/2024 12:30 PM CDT): See above Assessment & Plan (11/18/2024 12:37 PM CDT): MRI obtained 11/17 reporting T10-T11 vertebral bodies [...] CRP 3 and 6 weeks into treatment Bacteremia due to Enterococcus 11/14/2024 Assessment & Plan (12/02/2024 1:05 PM CDT): #Vegetation on pacemaker leads 1/2 BCx + [...] resume coreg on 12/01, monitor for hypotension Assessment & Plan (12/01/2024 2:03 PM CDT): #Vegetation on pacemaker leads 1/2 BCx + [...] resume coreg on 12/01, monitor for hypotension Assessment & Plan (11/30/2024 9:21 AM CDT): #Vegetation on pacemaker leads 1/2 BCx + [...] and further suppressive therapy for a year Assessment & Plan (11/29/2024 12:38 PM CDT): #Vegetation on pacemaker leads 1/2 BCx + [...] and further suppressive therapy for a year Assessment & Plan (11/28/2024 10:18 AM CDT): #Vegetation on pacemaker leads 1/2 BCx + [...] SNF placement after coumadin bridge is finalized. Assessment & Plan (11/27/2024 9:07 AM CDT): #Vegetation on pacemaker leads 1/2 BCx + [...] and further suppressive therapy for a year Assessment & Plan (11/26/2024 8:39 AM CDT): #Vegetation on pacemaker leads 1/2 BCx + [...] - Pacemaker removed on 11/25, pending cultures Assessment & Plan (11/26/2024 10:21 AM CDT): Patient with E faecalis BSI and concern for metastatic site of infection with possible thoracic spine OM. No evidence of intraabdominal infection due to lack of symptoms and prior negative imaging. Given AVR and PPM there is concern for associated endocarditis and PPM infection that would need to be further evaluated. TTE without overt findings of endocarditis. Patient has vocalized she would not be open to heart surgery at this time if a valve is found to have endocarditis. She is less sure on her thoughts regarding pacer removal. Briefly discussed a [...] weeks of IV antibiotics from device removal. Assessment & Plan (11/25/2024 10:23 AM CDT): #Vegetation on pacemaker leads 1/2 BCx + [...] evaluation no additional testing, cleared for procedure Assessment & Plan (11/24/2024 12:33 PM CDT): Patient with E faecalis BSI and concern for metastatic site of infection with possible thoracic spine OM. No evidence of intraabdominal infection due to lack of symptoms and prior negative imaging. Given AVR and PPM there is concern for associated endocarditis and PPM infection that would need to be further evaluated. TTE without overt findings of endocarditis. Patient has vocalized she would not be open to heart surgery at this time if a valve is found to have endocarditis. She is less sure on her thoughts regarding pacer removal. Briefly discussed a [...] need PICC line and home health/home infusion Assessment & Plan (11/24/2024 11:21 AM CDT): #Vegetation on pacemaker leads 1/2 BCx + [...] evaluation no additional testing, cleared for procedure Assessment & Plan (11/23/2024 10:06 AM CDT): #Vegetation on pacemaker leads 1/2 BCx + [...] evaluation no additional testing, cleared for procedure Assessment & Plan (11/22/2024 10:35 AM CDT): #Vegetation on pacemaker leads 1/2 BCx + [...] evaluation no additional testing, cleared for procedure Assessment & Plan (11/21/2024 9:32 AM CDT): #Vegetation on pacemaker leads 1/2 BCx + [...] Consult IPAP on 11/21 for pre-op evaluation Assessment & Plan (11/20/2024 2:07 PM CDT): Patient with E faecalis BSI and concern for metastatic site of infection with possible thoracic spine OM. No evidence of intraabdominal infection due to lack of symptoms and prior negative imaging. Given AVR and PPM there is concern for associated endocarditis and PPM infection that would need to be further evaluated. TTE without overt findings of endocarditis. Patient has vocalized she would not be open to heart surgery at this time if a valve is found to have endocarditis. She is less sure on her thoughts regarding pacer removal. Briefly discussed a [...] course. Final plan pending plans for PPM Assessment & Plan (11/20/2024 2:00 PM CDT): 1/2 BCx + E. faecalis on 11/13. [...] was contacted as well (Dr. Adal Moore) Assessment & Plan (11/19/2024 12:30 PM CDT): 1/2 BCx + E. faecalis on 11/13. [...] daily blood cultures until negative for 48h. Assessment & Plan (11/18/2024 10:54 AM CDT): 1/2 BCx + E. faecalis on 11/13. [...] daily blood cultures until negative for 48h. Assessment & Plan (11/17/2024 1:11 PM CDT): 1/2 BCx + E. faecalis on 11/13. [...] daily blood cultures until negative for 48h Assessment & Plan (11/16/2024 10:06 AM CDT): 1/2 BCx + E. faecalis on 11/13. [...] daily blood cultures until negative for 48h Assessment & Plan (11/15/2024 10:08 AM CDT): 1/2 BCx + Efaecalis (16.0hr) on 11/13. Unclear source. 20lb weight loss over the last few months. - Daily BCx - Start Amp (11/14-) and Ceftriaxone (11/14 -) - TTE on 11/14 lVEF 67% no thrombus, mechanical mitral valve w/o dysfunction - Waiting for NEVAEH - ID consult appreciate recs Assessment & Plan (11/18/2024 12:37 PM CDT): Patient with E faecalis BSI and concern for metastatic site of infection with possible thoracic spine OM. No evidence of intraabdominal infection due to lack of symptoms and prior negative imaging. Given AVR and PPM there is concern for associated endocarditis and PPM infection that would need to be further evaluated. TTE without overt findings of endocarditis. Patient has vocalized she would not be open to heart surgery at this time if a valve is found to have endocarditis. She is less sure on her thoughts regarding pacer removal. Briefly discussed a prolonged course of IV antibiotics with the possibility of suppression pending results. Recommendations: - continue ampicillin 2g q6h and ceftriaxone 2g q12h -While on the IV antibiotics, please obtain at least a weekly cbc with diff and CMP for antibiotic toxicity monitoring -OK to stop daily blood cultures -Will follow up on NEVAEH results once obtained Assessment & Plan (11/14/2024 1:24 PM CDT): 1/2 BCx + Efaecalis (16.0hr) on 11/13. Unclear source. 20lb weight loss over the last few months. - Daily BCx - Start Amp (11/14-) and Ceftriaxone (11/14 -) - TTE on 11/14 lVEF 67% no thrombus, mechanical mitral valve w/o dysfuction - ID consult Chronic midline thoracic back pain 11/13/2024 Overview (11/17/2024): Chronic back pain since 08/2024. Has had multiple CT scans for workup. Most recent CT thoracic spine showed c/f discitis osteophyte complex at T10-11, saw [...] dilaudid 0.2 IV q2 to breakthrough pain Assessment & Plan (12/02/2024 1:05 PM CDT): # C/f thoracic discitis / osteomyelitis Chronic back pain since 08/2024. Has had multiple CT scans for workup. Most recent CT thoracic spine showed c/f discitis osteophyte complex at T10-11, saw [...] of HIT, d/c heparin and started bival (11/25-). Transitioned to Lovenox on 11/29 with NEGATIVE MELODY. Warfarin restarted on 11/26 with bridging ongoing. Lovenox d/c on 11/22, IRN at goal 2.09 (goal 2-3) - Pain management with GLORY: tylenol 1g q6, robaxin 750mg q8, gabapentin 300mg TID (added on 11/22), Lidocaine patch; PRN: oxy 7.5mg q4 and dilaudid 0.2 IV q2 to breakthrough pain. - Bone pathology (11/17): positive for possible osteomyelitis or degenerative disease, ID recommended 6 weeks of Cef and Amp and further PO suppressive therapy for a year - Pending SNF placement - anticipate 12/02, EMS at 13:30 - ESR/CRP 3 weeks (12/05) and 6 weeks(12/26) into treatment Assessment & Plan (12/01/2024 10:24 AM CDT): # C/f thoracic discitis / osteomyelitis Chronic back pain since 08/2024. Has had multiple CT scans for workup. Most recent CT thoracic spine showed c/f discitis osteophyte complex at T10-11, saw [...] of HIT, d/c heparin and started bival (11/25-). Transitioned to Lovenox on 11/29 with NEGATIVE MELODY. Warfarin restarted on 11/26 with bridging ongoing. - Pain management with GLORY: tylenol 1g q6, robaxin 750mg q8, gabapentin 300mg TID (added on 11/22), Lidocaine patch; PRN: oxy 7.5mg q4 and dilaudid 0.2 IV q2 to breakthrough pain. - Bone pathology (11/17): positive for possible osteomyelitis or degenerative disease, ID recommended 6 weeks of Cef and Amp and further PO suppressive therapy for a year - Pending SNF placement - anticipate 12/02 - ESR/CRP 3 weeks (12/05) and 6 weeks(12/26) into treatment Assessment & Plan (11/30/2024 9:21 AM CDT): # C/f thoracic discitis / osteomyelitis Chronic back pain since 08/2024. Has had multiple CT scans for workup. Most recent CT thoracic spine showed c/f discitis osteophyte complex at T10-11, saw [...] of HIT, d/c heparin and started bival (11/25-). Transitioned to Lovenox on 11/29 with NEGATIVE MLEODY. Warfarin restarted on 11/26 with bridging ongoing. - Pain management with GLORY: tylenol 1g q6, robaxin 750mg q8, gabapentin 300mg TID (added on 11/22), Lidocaine patch; PRN: oxy 7.5mg q4 and dilaudid 0.2 IV q2 to breakthrough pain. - Bone pathology (11/17): positive for possible osteomyelitis or degenerative disease, ID recommended 6 weeks of Cef and Amp and further PO suppressive therapy for a year - Pending SNF placement - anticipate 12/02 - ESR/CRP 3 weeks (12/05) and 6 weeks(12/26) into treatment Assessment & Plan (11/29/2024 12:38 PM CDT): # C/f thoracic discitis / osteomyelitis Chronic back pain since 08/2024. Has had multiple CT scans for workup. Most recent CT thoracic spine showed c/f discitis osteophyte complex at T10-11, saw [...] of HIT, d/c heparin and started bival (11/25-). Transitioned to Lovenox on 11/29 with NEGATIVE MELODY. Warfarin restarted on 11/26 with bridging ongoing. - Pain management with GLORY: tylenol 1g q6, robaxin 750mg q8, gabapentin 300mg TID (added on 11/22), Lidocaine patch; PRN: oxy 7.5mg q4 and dilaudid 0.2 IV q2 to breakthrough pain. - Bone pathology (11/17): positive for possible osteomyelitis or degenerative disease, ID recommended 6 weeks of Cef and Amp and further PO suppressive therapy for a year - Pending SNF placement - anticipate 12/02 - ESR/CRP 3 weeks (12/05) and 6 weeks(12/26) into treatment Assessment & Plan (11/28/2024 10:18 AM CDT): # C/f thoracic discitis / osteomyelitis Chronic back pain since 08/2024. Has had multiple CT scans for workup. Most recent CT thoracic spine showed c/f discitis osteophyte complex at T10-11, saw [...] 750mg q8, gabapentin 300mg TID (added on 11/22), Lidocaine patch; PRN: oxy 7.5mg q4 and dilaudid 0.2 IV q2 to breakthrough pain. - Bone pathology (11/17): positive for possible osteomyelitis or degenerative disease, ID recommended 6 weeks of Cef and Amp and further suppressive therapy for a year - Pending SNF placement after coumadin bridge is finalized. Assessment & Plan (11/27/2024 9:07 AM CDT): # C/f thoracic discitis / osteomyelitis Chronic back pain since 08/2024. Has had multiple CT scans for workup. 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 Discuss bridge to coumadin - Pain management with GLORY: tylenol 1g q6, robaxin 750mg q8, gabapentin 300mg TID (added on 11/22), Lidocaine patch; PRN: oxy 7.5mg q4 and dilaudid 0.2 IV q2 to breakthrough pain. - Bone pathology (11/17): positive for possible osteomyelitis or degenerative disease, ID recommended 6 weeks of Cef and Amp and further suppressive therapy for a year Assessment & Plan (11/26/2024 8:39 AM CDT): # C/f thoracic discitis / osteomyelitis Chronic back pain since 08/2024. Has had multiple CT scans for workup. Most recent CT thoracic spine showed c/f discitis osteophyte complex at T10-11, saw [...] 750mg q8, gabapentin 300mg TID (added on 11/22), Lidocaine patch; PRN: oxy 7.5mg q4 and dilaudid 0.2 IV q2 to breakthrough pain. Assessment & Plan (11/25/2024 10:23 AM CDT): # C/f thoracic discitis / osteomyelitis Chronic back pain since 08/2024. Has had multiple CT scans for workup. Most recent CT thoracic spine showed c/f discitis osteophyte complex at T10-11, saw [...] cor compression (MRI report) - Hold warfarin (5/6-) -> heparin gtt for 11/17 IR bx, resumed after - Pain management with GLORY: tylenol 1g q6, robaxin 750mg q8, gabapentin 300mg TID (added on 11/22), Lidocaine patch; PRN: oxy 7.5mg q4 and dilaudid 0.2 IV q2 to breakthrough pain. Assessment & Plan (11/24/2024 11:21 AM CDT): # C/f thoracic discitis / osteomyelitis Chronic back pain since 08/2024. Has had multiple CT scans for workup. Most recent CT thoracic spine showed c/f discitis osteophyte complex at T10-11, saw [...] cor compression (MRI report) - Hold warfarin (5/6-) -> heparin gtt for 11/17 IR bx, resumed after - Pain management with GLORY: tylenol 1g q6, robaxin 750mg q8, gabapentin 300mg TID (added on 11/22), Lidocaine patch; PRN: oxy 7.5mg q4 and dilaudid 0.2 IV q2 to breakthrough pain. Assessment & Plan (11/23/2024 8:00 AM CDT): # C/f thoracic discitis / osteomyelitis Chronic back pain since 08/2024. Has had multiple CT scans for workup. Most recent CT thoracic spine showed c/f discitis osteophyte complex at T10-11, saw [...] cor compression (MRI report) - Hold warfarin (5/6-) -> heparin gtt for 11/17 IR bx, resumed after - Pain management with GLORY: tylenol 1g q6, robaxin 750mg q8, gabapentin 300mg TID (added on 11/22), Lidocaine patch; PRN: oxy 7.5mg q4 and dilaudid 0.2 IV q2 to breakthrough pain. Assessment & Plan (11/22/2024 10:35 AM CDT): # C/f thoracic discitis / osteomyelitis Chronic back pain since 08/2024. Has had multiple CT scans for workup. Most recent CT thoracic spine showed c/f discitis osteophyte complex at T10-11, saw [...] cor compression (MRI report) - Hold warfarin (5/6-) -> heparin gtt for 11/17 IR bx, resumed after - Pain management with GLORY: tylenol 1g q6, robaxin 750mg q8, gabapentin 300mg TID (added on 11/22), Lidocaine patch; PRN: oxy 7.5mg q4 and dilaudid 0.2 IV q2 to breakthrough pain. Assessment & Plan (11/21/2024 9:32 AM CDT): # C/f thoracic discitis / osteomyelitis Chronic back pain since 08/2024. Has had multiple CT scans for workup. Most recent CT thoracic spine showed c/f discitis osteophyte complex at T10-11, saw [...] cor compression (MRI report) - Hold warfarin (5/6-) -> heparin gtt for 11/17 IR bx, resumed after - Pain management with GLORY: tylenol 1g q6, robaxin 750mg q8; PRN: oxy 5mg q4 and dilaudid 0.2 IV q2 to breakthrough pain. Assessment & Plan (11/20/2024 10:13 AM CDT): # C/f thoracic discitis / osteomyelitis Chronic back pain since 08/2024. Has had multiple CT scans for workup. Most recent CT thoracic spine showed c/f discitis osteophyte complex at T10-11, saw [...] cor compression (MRI report) - Hold warfarin (5/6-) -> heparin gtt for 11/17 IR bx, resumed after - Pain management with GLORY: tylenol 1g q6, robaxin 750mg q8; PRN: oxy 5mg q4 and dilaudid 0.2 IV q2 to breakthrough pain, lidocaine patch Assessment & Plan (11/19/2024 12:30 PM CDT): # C/f thoracic discitis / osteomyelitis Chronic back pain since 08/2024. Has had multiple CT scans for workup. Most recent CT thoracic spine showed c/f discitis osteophyte complex at T10-11, saw [...] cor compression (MRI report) - Hold warfarin (5/-) -> heparin gtt for 11/17 IR bx, resumed after - Pain management with GLORY: tylenol 1g q6, robaxin 50mg q8; PRN: oxy 5mg q4 and dilaudid 0.2 IV q2 to breakthrough pain Assessment & Plan (11/18/2024 10:54 AM CDT): # C/f thoracic discitis / osteomyelitis Chronic back pain since 08/2024. Has had multiple CT scans for workup. Most recent CT thoracic spine showed c/f discitis osteophyte complex at T10-11, saw [...] cor compression (MRI report) - Hold warfarin (5/6-) -> heparin gtt for 11/17 IR bx, resumed after - Pain management with GLORY: tylenol 1g q6, robaxin 50mg q8; PRN: oxy 5mg q4 and dilaudid 0.2 IV q2 to breakthrough pain Assessment & Plan (11/17/2024 1:11 PM CDT): # C/f thoracic discitis / osteomyelitis Chronic back pain since 08/2024. Has had multiple CT scans for workup. Most recent CT thoracic spine showed c/f discitis osteophyte complex at T10-11, saw [...] 11/17. - NSGY following - Hold warfarin (5-) -> heparin gtt for 11/17 IR bx - Pain management with GLORY: tylenol 1g q6, robaxin 50mg q8; PRN: oxy 5mg q4 and dilaudid 0.2 IV q2 to breakthrough pain Assessment & Plan (11/16/2024 10:06 AM CDT): # C/f thoracic discitis / osteomyelitis Chronic back pain since 08/2024. Has had multiple CT scans for workup. Most recent CT thoracic spine showed c/f discitis osteophyte complex at T10-11, saw [...] possible procedure on Sunday - Hold warfarin (5/-) -> heparin gtt until procedures are done - Repeated TTE to rule out valvular vegetation/ICD infection, ordered NEVAEH on 11/15 as TTE was unremarkable and patinet has mechanical valve and pacemaker - NEVAEH programed for 11/17 - Pain management with GLORY: tylenol 1g q6, robaxin 50mg q8; PRN: oxy 5mg q4 and dilaudid 0.2 IV q2 to breakthrough pain Assessment & Plan (11/15/2024 10:08 AM CDT): # C/f thoracic discitis / osteomyelitis Chronic back pain since 08/2024. Has had multiple CT scans for workup. Most recent CT thoracic spine showed c/f discitis osteophyte complex at T10-11, saw [...] possible procedure on Sunday - Hold warfarin (5/-) -> heparin gtt - Repeated TTE to rule out valvular vegetation/ICD infection, ordered NEVAEH on 11/15 as TTE was unremarkable and patinet has mechanical valve lpacemaker - Pain management with GLORY: tylenol 1g q6, robaxin 50mg q8; PRN: oxy 5mg q4 and dilaudid 0.2 IV q2 to breakthrough pain Assessment & Plan (11/14/2024 1:24 PM CDT): # C/f thoracic discitis / osteomyelitis Chronic back pain since 08/2024. Has had multiple CT scans for workup. Most recent CT thoracic spine showed c/f discitis osteophyte complex at T10-11, saw [...] 5 day before procedure - Hold warfarin (5/6-) -> heparin gtt - Repeat TTE to rule out valvular vegetation/ICD infection - Pain management with GLORY: tylenol 1g q6, robaxin 50mg q8; PRN: oxy 5mg q4 and dilaudid 0.2 IV q2 to breakthrough pain Acute on chronic heart failu re with preserved ejection fraction 05/28/2024 Chronic renal disease, stage IV 04/22/2024 Atrial fibrillation 10/23/2023 Abnormal PFTs (pulmonary function tests) 024 Depression, recurrent 05/21/2023 Encounter for Medicare annual wellness exam 05/09 Assessment & Plan (05/28/2024 1:10 PM TURF KEEPER): A(n) initial well visit to establish care has been performed today. Kendal Cisneros is not up to date on screening [...] year Assessment & Plan (05/21/2023 3:45 PM TURF KEEPER): A(n) yearly Medicare Annual Wellness Visit has been performed today. Kendal Cisneros is not up to date on screening [...] 11:45 AM CDT): Will decrease furosemide to [id number] dosing given the downward drift on the renal function Replacing pantoprazole with famotidine for the same reason Monitor BP, the amlodipine has bene stopped, carvedilol recently increase Continuing current regimen overall Discussed improving hydration Referral to kidney doctor ordered Nausea and vomiting 07/25/2022 Assessment & Plan (07/25/2022 1:31 PM TURF KEEPER): Try stop cannabis HS Also try benadryl HS Report back by phone At risk for amiodarone toxicity with longterm u se 07/21/2022 Insomnia due to medical condition 03/24/2022 Assessment & Plan (03/24/2022 5:17 PM CDT): Cross-taper to trazodone Week 1: remeron 1/2 tab qhs x 2 weeks plus trazodone 1/2 tab qhs x 2 weeks Week 3: trazodone 1 tab qhs and stop remeron Chronic heart failure with preserved ejection fr action 03/16/2022 S/P CABG x 1 03/16/2022 S/P mitral valve repair 03/03/2022 [employer]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 Complications and discharge plan have been noted, reviewed. Post-discharge testing has been ordered. Will increase remeron to 15 mg qhs Continuing current regimen otherwise, updated Will look into options for removal of G-button; likely Dr. Gomes or Katerine at [facility] May add meal supplement 1 daily between meals (Boost, Ensure, for example) Correction: doesn't appear defibrillator was placed, still bi-valve pacemaker Mobility impaired 02/22/2022 Assessment & Plan (02/22/2022 8:06 PM CDT): Kendal Cisneros has a mobility limitation that significantly impairs [...] breath 08/08/2021 Coronary artery disease invo lving [place] coronary artery of [place] heart without angina pectoris 08/08/2021 Chronic anticoagulation 08/08/2021 Ankle swelling 02/16/2021 Acute urinary tract infection 12/16/2020 Dehydration 12/15/2020 Incomplete emptying of bladder 12/15/2020 Smoker 08/03/2020 Smokers' cough 07/30/2020 Osteoarthritis of right knee 06/11/2019 Overview (08/01/2021): Dr. River at [facility] [place], ortho Dr. Parks ortho 2017 Arthritis of knee 06/10/2019 Anxiety 01/24/2019 Overview (08/01/2021): Buspar she didn't like. Paroxysmal atrial fibrillation 01/15/2019 Overview (06/21/2022): Last Assessment & Plan: On Eliquis Aortic valve replaced 11/14/2018 Overview (08/01/2021): 12/[address] surgeon at [facility]. Spondylosis of lumbar region without myelopathy or radiculopathy 11/30/2015 Overview (08/01/2021): X-ray 11/2015 Essential hypertension 10/20/2015 Status post biventricular pacemaker 10/20/2015 Overview (10/04/2023): [employer] BIV Pacemaker. Dx; CM, CHF, LBBB, PAF. DOI 09/26/2023- [facility]. Chronic leads 08/16/2015-[place]. [place] remote transfer requested. Device is NOT MRI compatible-confirmed 09/15/21. Dr. Villegas EP at [facility]. Aug 2015. Osteopenia 01/29/2015 Overview (08/01/2021): DEXA 01/2015 CHF (congestive heart failure), NYHA class III 0 12/25/2012 Overview (08/01/2021): ECHO 05/2014 EF about 40% EF about 65% 2016 [address] Dr. Wahl at [facility]. Last Assessment & Plan: Status: Stable Interim History: No weight gain or any other symptoms. Continue present treatment. Pulmonary HTN 11/18/2012 Overview (08/01/2021): [facility] documentation seen on ECHO. Pulmonary nodule, left 11/18/2012 Overview (08/01/2021): Left lower per [facility] documentation. S/P cholecystectomy 11/18/2012 S/P hysterectomy with oophorectomy 11/18/2012 Overview (08/01/2021): Per [facility]. Chronic pain 12/06/2011 GERD (gastroesophageal reflux disease) 2 Depression 10/26/2011 Overview (08/01/2021): Last Assessment & Plan: Status: Stable Interim History: Mood 5-12/16. Not suicidal or homicidal. Will adjust med's today. Discussed grieving counseling in detail. [facility]. Recheck in 2 weeks. 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 Support hemoglobin to 7 grams/deciliter. 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 Kendal Cisneros is not up to date on screening tests. She is in need of Breast cancer screening, Lung cancer screening, Colon cancer screening, Cholesterol screening and Cervical cancer screening- these have been ordered. She is not up to date on needed preventative vaccinations; She is in need of Influenza, Zoster and Covid-19 (booster). These have been ordered/arranged unless otherwise indicated. BP is controlled Crisis Mental Health Therapist appointment next week. Symptom-guerra, controlled Continuing current [...] up the coverage for you as well. Pacemaker 08/04/2020 11/27/2024 Assessment & Plan (11/27/2024 9:07 AM CDT): #AVR ([employer]ilia, 2019) #Pacemaker ([employer] 2015) [...] spironolactone (worsening of kidney function and hypotension) Assessment & Plan (11/26/2024 8:39 AM CDT): #AVR ([employer] res[employer], 2019) #Pacemaker ([employer] 2015) [...] spironolactone (worsening of kidney function and hypotension) Assessment & Plan (11/26/2024 10:21 AM CDT): TTE noted wire in right heart. NEVAEH commenting on tiny mobile linear echodensity attached to lead in right atrium. Given patient was bacteremic with an organism known to cause endocarditis, we favor this echodensity to be a vegetation and would advocate for removal. Patient underwent pacer generator and leads removal on 11/25. Assessment & Plan (11/25/2024 10:23 AM CDT): #AVR ([employer] res[employer], 2019) #Pacemaker ([employer] 2016) #pAF on Coumadin, now on heparin drip until pacemaker removal #LVEF 67% (11/14/24) Hx severe s/p AVR placement in 209 and replacement of mechanical AV in 2021. Previously on ECMO reuqiring Mitral valve repair. - Warfarin -> hep gtt in preparation for IR bx on 11/17 - GDMT: on hold coreg (hypotension) and spironolactone (worsening of kidney function and hypotension) Assessment & Plan (11/24/2024 12:33 PM CDT): TTE noted wire in right heart. NEVAEH commenting on tiny mobile linear echodensity attached to lead in right atrium. Given patient was bacteremic with an organism known to cause endocarditis, we favor this echodensity to be a vegetation and would advocate for removal. Recommendations: -Consult EP and/or CTS for removal of PPM Assessment & Plan (11/24/2024 11:21 AM CDT): #AVR ([employer], 2019) #Pacemaker ([employer] [...] spironolactone (worsening of kidney function and hypotension) Assessment & Plan (11/23/2024 8:00 AM CDT): #AVR (ins[employer]is resilia, 2019) #Pacemaker ([employer] 2015) #pAF on Coumadin, now on heparin drip until pacemaker removal #LVEF 67% (11/14/24) Hx severe s/p AVR placement in 209 and replacement of mechanical AV in 2021. Previously on ECMO reuqiring Mitral valve repair. - Warfarin -> hep gtt in preparation for IR bx on 11/17 - GDMT: on hold coreg (hypotension) and spironolactone (worsening of kidney function and hypotension) Assessment & Plan (11/22/2024 10:35 AM CDT): #AVR (ins[employer] resilia, 2019) #Pacemaker ([employer] 2015) #pAF on Coumadin, now on heparin drip until pacemaker removal #LVEF 67% (11/14/24) Hx severe s/p AVR placement in 209 and replacement of mechanical AV in 2021. Previously on ECMO reuqiring Mitral valve repair. - Warfarin -> hep gtt in preparation for IR bx on 11/17 GDMT: on hold coreg (hypotension) and spironolactone (worsening of kidney function and hypotension) Assessment & Plan (11/21/2024 8:37 AM CDT): #AVR (inspiris resilia, 2019) #Pacemaker ([employer] 2015) #pAF on Coumadin, now on heparin drip until pacemaker removal #LVEF 67% (11/14/24) Hx severe s/p AVR placement in and replacement of mechanical AV in 2021. Previously on ECMO reuqiring Mitral valve repair. - Warfarin -> hep gtt in preparation for IR bx on 11/17 GDMT: on hold coreg (hypotension) and spironolactone (worsening of kidney function and hypotension) Assessment & Plan (11/20/2024 2:07 PM CDT): TTE noted wire in right heart. NEVAEH commenting on tiny mobile linear echodensity attached to lead in right atrium. Given patient was bacteremic with an organism known to cause endocarditis, we favor this echodensity to be a vegetation and would advocate for removal. Recommendations: -Consult EP and/or CTS for removal of PPM Assessment & Plan (11/20/2024 2:00 PM CDT): #AVR (inspiris resilia, 2019) #Pacemaker ([employer] 2015) #pAF on Coumadin, now on heparin drip until pacemaker removal #LVEF 67% (11/14/24) Hx severe s/p AVR placement in 209 and replacement of mechanical AV in 2021. Previously on ECMO reuqiring Mitral valve repair. - Warfarin -> hep gtt in preparation for IR bx on 11/17 - GDMT: on hold coreg (hypotension) and spironolactone (worsening of kidney function and hypotension) Assessment & Plan (11/19/2024 12:30 PM CDT): #AVR (inspiris resilia, 2019) #Pacemaker ([employer] 2016) #pAF on Coumadin #LVEF 67% (11/14/24) Hx severe s/p AVR placement in and replacement of mechanical AV in 2021. Previously on ECMO reuqiring Mitral valve repair. - Warfarin -> hep gtt in preparation for IR bx on 11/17 - GDMT: on hold coreg (hypotension) and spironolactone (worsening of kidney function and hypotension) Assessment & Plan (11/18/2024 12:37 PM CDT): TTE noted wire in right heart. Will await NEVAEH results to assess for vegetation prior to making recommendations on removal. Assessment & Plan (11/18/2024 10:54 AM CDT): #AVR (inspiris resilia, 2019) #Pacemaker ([employer] 2015) #pAF on Coumadin #LVEF 67% (11/14/24) Hx severe s/p AVR placement in and replacement of mechanical AV in 2021. Previously on ECMO reuqiring Mitral valve repair. - Warfarin -> hep gtt in preparation for IR bx on 11/17 - GDMT: on hold coreg (hypotension) and spironolactone (worsening of kidney function and hypotension) Assessment & Plan (11/17/2024 1:11 PM CDT): #AVR (inspiris resilia, 2019) #Pacemaker ([employer] 2015) #pAF on Coumadin #LVEF 67% (11/14/24) Hx severe s/p AVR placement in and replacement of mechanical AV in 2021. Previously on ECMO reuqiring Mitral valve repair. - Warfarin -> hep gtt in preparation for IR bx on 11/17 - GDMT: on hold coreg (hypotension) and spironolactone (worsening of kidney function and hypotension) Assessment & Plan (11/16/2024 10:06 AM CDT): #AVR (inspiris resilia, 2019) #pAF on Coumadin #LVEF 67% (11/14/24) Hx severe s/p AVR placement in 209 and replacement of mechanical AV in 2021. Previously on ECMO reuqiring Mitral valve repair. - Warfarin -> hep gtt in preparation for IR bx on Sunday - GDMT: on hold coreg (hypotension) and spironolactone (worsening of kidney function and hypotension) Assessment & Plan (11/15/2024 10:08 AM CDT): #AVR (inspiris resilia, 2019) #pAF on Coumadin #LVEF 67% (11/14/24) Hx severe s/p AVR placement in and replacement of mechanical AV in 2021. Previously on ECMO reuqiring Mitral valve repair. - Warfarin -> hep gtt in preparation for IR bx on Sunday - GDMT: on hold coreg (hypotension) and spironolactone (worsening of kidney function and hypotension) Assessment & Plan (11/14/2024 1:24 PM CDT): #AVR (inspiris resilia, 2018) #pAF on Coumadin #LVEF 67% (11/14/24) Hx severe s/p AVR placement in and replacement of mechanical AV in 2021. Previously on ECMO reuqiring Mitral valve repair. 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 Message from Exavio sent at 11/15/2018 4:29 PM [facility] ----- Wi Dr. Farnsworth. Just FYI regarding my hospital visit, I have an appointment with Dr. Luke rodriguez at [facility] on This Sunday for my TAVR work up. Last Assessment & Plan: Status: Stable Interim History: Positive murmur but no symptoms at present. Continue with present treatment. Biventricular heart failure 11/18/2012 12/20/2021 Assessment & Plan (12/14/2021 8:07 [...] Not Answered Comments:now down to 5 cigs/day [employer] Utilities Answer Date Recorded In the past 12 months has [employer], gas, oil, or water company threatened to [...] often do you attend chur ch or denominational services? Never 11/27/2024 Do you belong to any clubs o r organizations such as temple groups, unions, fraternal or athletic groups, or [...] Date Recorded PHQ-2 Total Score 0 11/27/2024 [facility] - Occupational Stress Questionnaire Answer Date [...] any time in the past 12 m [facility], were you homeless or living in a prison (including now)? No 11/27/2024 Personal Safety Answer Date Recorded Have you ever been in or are you currently in a harmful physical or emotional relationship or is someone making you feel afraid or unsafe? 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 Not on file Not on [...] Mass Index 25.44 11/13/2024 6:45 PM CDT Plan of Treatment Not on file Medical Devices Implanted Type Area Stove Bottom Worker Device Identifier Shelf Expiration Date Model / Serial / Lot Photofix Bovine 6x8 Pericardium Pfp 6x8 - S000 - [id number] Implanted:Qty: 1 on 11/23/2021 by Adal Moore MD at [facility] Graft N/A: Heart Cryolife Inc 08/20/2023 PFP 6X8 / 000 / [id number] Castrejon Rv Lead [id number] 6 Implanted: 016 (Quantity not on file) Lead Heart Medtronic Cardiac Rhythm Mgmt 2087TC-5 2 / [id number] / Castrejon Lv Lead [id number]-86-08/16/2015 Implanted: 016 (Quantity not on file) Lead Heart Castrejon 2087tc-46- 6 Implanted: 016 (Quantity not on file) Lead Chest Wall Castrejon Diagnostics 2087TC-4 6 / [id number] / Getinge Crouse [employer] Sensation Plus 7.5fr 6in 2 Statlock Device Fiber Optic Insertion [id number] - S000 - [id number] Implanted:Qty: 1 on 11/22/2021 by Adal Moore MD at [facility] Other - see comments Left: Groin GETINGE CASTLE INC 03/12/2023 0684-00- [id number] / 000 / [id number] Description:IABP Castrejon Pm [id number] Implanted: 016 by Alfredo White (Quantity not on file) Pacemaker Chest [employer] [id number] / [id number] / Description:Did not get lead information - office did not schedule MRI exam, device is not conditional for MRI and provider is looking into other options JL 09/28/21 On-X Intrnl Gelweave Valsalva 22mm 19.4mm 30mm 11cm Mechanical Conduit Sew Onxaap-21 - [id number] - [id number] Implanted:Qty: 1 on 11/22/2021 by Adal Moore MD at [facility] Prosthetic Valve N/A: Aorta On-X Intrnl 04/08/2023 ONXAAP-2 [id number] / 000 Photofix Bovine 6x8 Pericardium Pfp 6x8 - S000 - [id number] Implanted:Qty: 1 on 11/22/2021 by Adal Moore MD at [facility] N/A: Heart [employer]ife Inc 08/06/2023 PFP 6X8 / 000 / [id number] Description:Given to sterile field for PRN use on surgical site Photofix Bovine 6x8 Pericardium Pfp 6x8 - [id number] Implanted:Qty: 1 on 11/28/2021 by Adal Moore MD at [facility] N/A: Heart [employer]ife Inc 08/06/2023 PFP 6X8 / / [id number] Medtronic Inc Simulus 24mm Semirigid Band Annuloplasty 800sc-24 - [id number] - [id number] Implanted:Qty: 1 on 11/28/2021 by Adal Moore MD at [facility] N/A: Heart Medtronic Inc 03/15/2023 800SC-24 / [id number] / Terumo Cardio Vascular Gelweave Od6 Mm L30 Cm Suture Retention Unique Hydrolyzable Abdomen Thorax Straight Graft Cardiovascular Gelatin Polyester Woven [id number] - [id number] - [id number] Implanted:Qty: 1 on 11/28/2021 by Adal Moore MD at [facility] N/A: Chest Terumo Cardio Vascular 08/08/2024 [id number] / [id number] / [id number] Procedures Procedure Name Priority Date/Time Associated Diagnosis Comments ECG 12-LEAD STAT 12/02/2024 7:15 AM CDT HEPATIC FUNCTION PANEL Routine 12/01/2024 9:24 PM CDT EGFR Routine 12/01/2024 9:24 PM CDT DIFFERENTIAL AUTO Routine 12/01/2024 9:24 PM CDT PROTIME-INR Timed 12/01/2024 9:24 PM CDT CBC WITH AUTO DIFFERENTIAL Routine 12/01/2024 9:24 PM CDT BASIC METABOLIC PANEL Routine 12/01/2024 9:[address] HEAD WO CONTRAST ED Urgent/IP Urgent 12/01/2024 7:[address] HEAD TOTAL SPINE WO CONTRAST Critical/Life -Threatening 12/01/2024 10:11 AM CDT EGFR Routine 11/30/2024 9:16 PM CDT BASIC METABOLIC PANEL Routine 11/30/2024 9:16 PM CDT PROTIME-INR Timed 11/30/2024 9:16 PM CDT TYPE AND SCREEN Timed 11/30/2024 9:16 PM CDT EGFR Routine 11/29/2024 10:18 PM CDT DIFFERENTIAL AUTO Timed 11/29/2024 10:18 PM CDT CBC WITH AUTO DIFFERENTIAL Timed 11/29/2024 10:18 PM CDT BASIC METABOLIC PANEL Routine 11/29/2024 10:18 PM CDT PROTIME-INR Timed 11/29/2024 10:18 PM CDT EGFR STAT 11/29/2024 9:25 AM CDT CREATININE STAT 11/29/2024 9:25 AM CDT APTT STAT 11/29/2024 9:25 AM CDT CBC WITHOUT DIFFERENTIAL STAT 11/29/2024 9:25 AM CDT PROTIME-INR STAT 11/29/2024 9:25 AM CDT HEPARIN ANTI FACTOR XA ACTIVITY Routine 11/29/2024 9:25 AM CDT EGFR Routine 11/28/2024 10:47 PM CDT BASIC METABOLIC PANEL Routine 11/28/2024 10:47 PM CDT PROTIME-INR Timed 11/28/2024 10:47 PM CDT APTT STAT 11/28/2024 2:32 PM CDT APTT STAT 11/28/2024 12:40 PM CDT APTT STAT 11/28/2024 10:37 AM CDT APTT STAT 11/28/2024 8:22 AM CDT APTT STAT 11/28/2024 4:19 AM CDT EGFR Routine 11/27/2024 8:31 PM CDT DIFFERENTIAL AUTO Routine 11/27/2024 8:31 PM CDT CBC WITH AUTO DIFFERENTIAL Routine 11/27/2024 8:31 PM CDT BASIC METABOLIC PANEL Routine 11/27/2024 8:31 PM CDT PROTIME-INR Timed 11/27/2024 8:31 PM CDT TYPE AND SCREEN Timed 11/27/2024 8:31 PM CDT APTT STAT 11/27/2024 5:13 AM CDT EGFR Routine 11/26/2024 7:52 PM CDT DIFFERENTIAL AUTO Routine 11/26/2024 7:52 PM CDT CBC WITH AUTO DIFFERENTIAL Routine 11/26/2024 7:52 PM CDT BASIC METABOLIC PANEL Routine 11/26/2024 7:52 PM CDT PROTIME-INR Timed 11/26/2024 7:52 PM CDT APTT STAT 11/26/2024 12:02 PM CDT APTT STAT 11/26/2024 9:28 AM CDT ECG 12-LEAD STAT 11/26/2024 8:42 AM CDT APTT STAT 11/26/2024 6:47 AM CDT APTT STAT 11/26/2024 4:03 AM CDT HEPATIC FUNCTION PANEL Routine 11/26/2024 12:42 AM CDT EGFR Routine 11/26/2024 12:42 AM CDT DIFFERENTIAL AUTO Routine 11/26/2024 12:42 AM CDT APTT STAT 11/26/2024 12:42 AM CDT PROTIME-INR STAT 11/26/2024 12:42 AM CDT CBC WITH AUTO DIFFERENTIAL Routine 11/26/2024 12:42 AM CDT BASIC METABOLIC PANEL Routine [...] GRAM STAIN Routine 11/25/2024 8:09 PM CDT NH AN PROCEDURE PLACEHOLDER Routine 11/25/2024 7:42 PM CDT PERIPHERAL LINE Routine 11/25/2024 7:36 PM CDT ANESTHESIA INTUBATION Routine 11/25/2024 7:35 PM CDT REMOVAL PACEMAKER GENERATOR/LEADS 11/25/2024 6:47 PM CDT Pacemaker infection, initial encounter NEVAEH ADD-ON FOR OR Routine 11/25/2024 6:37 PM CDT DIFFERENTIAL AUTO Timed 11/25/2024 12:46 PM CDT CBC WITH AUTO DIFFERENTIAL Timed 11/25/2024 12:46 PM CDT TRANSFUSE RED BLOOD CELLS Timed 11/25/2024 10:00 AM CDT SEROTONIN RELEASE ASSAY Timed 11/25/2024 8:09 AM CDT APTT STAT 11/25/2024 8:09 AM CDT HIT ANTIBODIES W/REFLEX TO SEROTONIN RELEASE ASSAY (MELODY) Timed 11/25/2024 8:09 AM CDT APTT Timed 11/24/2024 9:19 PM CDT EGFR Routine 11/24/2024 9:19 PM CDT DIFFERENTIAL AUTO Routine 11/24/2024 9:19 PM CDT MAGNESIUM Routine 11/24/2024 9:19 PM CDT CBC WITH AUTO DIFFERENTIAL Routine 11/24/2024 9:19 PM CDT BASIC METABOLIC PANEL Routine 11/24/2024 9:19 PM CDT PROTIME-INR Timed 11/24/2024 9:19 PM CDT B CHECK SAMPLE STAT 11/24/2024 12:21 PM CDT TYPE AND SCREEN Timed 11/24/2024 10:53 AM CDT PREPARE RBC Timed 11/24/2024 10:20 AM CDT EGFR Routine 11/23/2024 9:58 PM CDT PROTIME-INR Routine 11/23/2024 9:58 PM CDT APTT Routine 11/23/2024 9:58 PM CDT DIFFERENTIAL AUTO Routine 11/23/2024 9:58 PM CDT MAGNESIUM Routine 11/23/2024 9:58 PM CDT CBC WITH AUTO DIFFERENTIAL Routine 11/23/2024 9:58 PM CDT BASIC METABOLIC PANEL Routine 11/23/2024 9:58 PM CDT HEPARIN ANTI FACTOR XA ACTIVITY Routine 11/23/2024 9:58 PM CDT PROTIME-INR STAT 11/22/2024 11:04 PM CDT APTT STAT 11/22/2024 11:04 PM CDT APTT Timed 11/21/2024 10:51 PM CDT PROTIME-INR Timed 11/21/2024 10:51 PM CDT EGFR Routine 11/20/2024 8:45 PM CDT PROTIME-INR STAT 11/20/2024 8:45 PM CDT DIFFERENTIAL AUTO Routine 11/20/2024 8:45 PM CDT APTT STAT 11/20/2024 8:45 PM CDT BASIC METABOLIC PANEL Routine 11/20/2024 8:45 PM CDT CBC WITH AUTO DIFFERENTIAL Routine 11/20/2024 8:45 PM CDT MAGNESIUM Routine 11/20/2024 8:45 PM CDT HEPATIC FUNCTION PANEL Routine 11/19/2024 8:49 PM CDT EGFR Routine 11/19/2024 8:49 PM CDT DIFFERENTIAL AUTO Routine 11/19/2024 8:49 PM CDT APTT Routine 11/19/2024 8:49 PM CDT BASIC METABOLIC PANEL Routine 11/19/2024 8:49 PM CDT PROTIME-INR Timed 11/19/2024 8:49 PM CDT CBC WITH AUTO DIFFERENTIAL Routine 11/19/2024 8:49 PM CDT MAGNESIUM Routine 11/19/2024 8:49 PM CDT TRANSESOPHAGEAL ECHO (NEVAEH) W DOPPLER/CF WO CONTRAST Routine 11/19/2024 1:42 PM CDT EGFR Routine 11/18/2024 6:01 PM CDT PROTIME-INR STAT 11/18/2024 6:01 PM CDT DIFFERENTIAL AUTO Routine 11/18/2024 6:01 PM CDT APTT STAT 11/18/2024 6:01 PM CDT BASIC METABOLIC PANEL Routine 11/18/2024 6:01 PM CDT CBC WITH AUTO DIFFERENTIAL Routine 11/18/2024 6:01 PM CDT MAGNESIUM Routine 11/18/2024 6:01 PM CDT APTT STAT 11/18/2024 11:45 AM CDT EGFR Routine 11/18/2024 4:25 AM CDT APTT Timed 11/18/2024 4:25 AM CDT DIFFERENTIAL AUTO Routine 11/18/2024 4:25 AM CDT BASIC METABOLIC PANEL Routine 11/18/2024 4:25 AM CDT PROTIME-INR Timed 11/18/2024 4:25 AM CDT CBC WITH AUTO DIFFERENTIAL Routine 11/18/2024 4:25 AM CDT MAGNESIUM Routine 11/18/2024 4:25 AM CDT BIOPSY DEEP BONE ED 11/17/2024 5:15 PM CDT MYCOLOGY (FUNGAL) CULTURE Routine 11/17/2024 5:15 PM CDT TISSUE AEROBIC AND ANAEROBIC CULTURE AND GRAM STAIN Routine 11/17/2024 5:15 PM CDT AEROBIC AND ANAEROBIC CULTURE AND GRAM STAIN Routine 11/17/2024 5:15 PM CDT MYCOLOGY (FUNGAL) CULTURE AND STAIN Routine 11/17/2024 5:15 PM CDT MYCOBACTERIOLOGY AFB CULTURE Routine 11/17/2024 5:15 PM CDT MYCOBACTERIOLOGY AFB CULTURE Routine 11/17/2024 5:15 PM CDT SURGICAL PATHOLOGY Routine 11/17/2024 5:10 PM CDT Chronic midline thoracic back pain Bacteremia due to Enterococcus APTT Timed 11/17/2024 2:05 PM CDT PROTIME-INR Timed 11/17/2024 2:05 PM CDT MRI SPINE TOTAL COMPLETE W WO CONTRAST IP Routine 11/17/2024 1:04 PM CDT PROTIME-INR STAT 11/17/2024 5:40 AM CDT APTT STAT 11/17/2024 5:40 AM CDT EGFR Timed 11/17/2024 1:33 AM CDT DIFFERENTIAL AUTO Timed 11/17/2024 1:33 AM CDT CBC WITH AUTO DIFFERENTIAL Timed 11/17/2024 1:33 AM CDT BASIC METABOLIC PANEL Timed 11/17/2024 1:33 AM CDT POCT GLUCOSE DEVICE Routine 11/17/2024 1:32 AM CDT EGFR Routine 11/16/2024 11:02 PM CDT CRITICAL RESULT CALLBACK CHEMISTRY Routine 11/16/2024 11:02 PM CDT DIFFERENTIAL AUTO Routine 11/16/2024 11:02 PM CDT APTT STAT 11/16/2024 11:02 PM CDT BASIC METABOLIC PANEL Routine 11/16/2024 11:02 PM CDT PROTIME-INR Timed 11/16/2024 11:02 PM CDT CBC WITH AUTO DIFFERENTIAL Routine 11/16/2024 11:02 PM CDT MAGNESIUM Routine 11/16/2024 11:02 PM CDT BLOOD CULTURE STAT 11/16/2024 11:31 AM CDT BLOOD CULTURE STAT 11/16/2024 11:31 AM CDT DIFFERENTIAL AUTO Routine 11/15/2024 11:46 PM CDT PROTIME-INR STAT 11/15/2024 11:46 PM CDT APTT STAT 11/15/2024 11:46 PM CDT CBC WITH AUTO DIFFERENTIAL Routine 11/15/2024 11:46 PM CDT MAGNESIUM Routine 11/15/2024 11:46 PM CDT BLOOD CULTURE STAT 11/15/2024 1:14 PM CDT EGFR STAT 11/15/2024 1:08 PM CDT BASIC METABOLIC PANEL STAT 11/15/2024 1:08 PM CDT BLOOD CULTURE STAT 11/15/2024 1:08 PM CDT PROTIME-INR Timed 11/15/2024 10:11 AM CDT EGFR Routine 11/14/2024 10:03 PM CDT PHOSPHORUS Routine 11/14/2024 10:03 PM CDT MAGNESIUM Routine 11/14/2024 10:03 PM CDT CBC WITHOUT DIFFERENTIAL Routine 11/14/2024 10:03 PM CDT BASIC METABOLIC PANEL Routine 11/14/2024 10:03 PM CDT APTT Timed 11/14/2024 6:53 PM CDT APTT STAT 11/14/2024 12:12 PM CDT ECG 12-LEAD STAT 11/14/2024 10:29 AM CDT TRANSTHORACIC ECHO (TTE) COMPLETE W DOPPLER/CF W CONTRAST Routine 11/14/2024 8:41 AM CDT APTT Timed 11/14/2024 4:31 AM CDT ERYTHROCYTE SEDIMENTATION RATE Routine 11/13/2024 10:35 PM CDT CRP (ACUTE PHASE) Routine 11/13/2024 10:35 PM CDT EGFR Routine 11/13/2024 10:35 PM CDT MAGNESIUM Routine 11/13/2024 10:35 PM CDT CBC WITHOUT DIFFERENTIAL Routine 11/13/2024 10:35 PM CDT BASIC METABOLIC PANEL Routine 11/13/2024 10:35 PM CDT APTT STAT 11/13/2024 5:26 PM CDT CBC WITHOUT DIFFERENTIAL STAT 11/13/2024 5:26 PM CDT PROTIME-INR STAT 11/13/2024 5:26 PM CDT EGFR STAT 11/13/2024 2:19 PM CDT DIFFERENTIAL AUTO STAT 11/13/2024 2:19 PM CDT COMPREHENSIVE METABOLIC PANEL STAT 11/13/2024 2:19 PM CDT CBC WITH AUTO DIFFERENTIAL STAT 11/13/2024 2:19 PM CDT BLOOD CULTURE STAT 11/13/2024 2:19 PM CDT BLOOD CULTURE STAT 11/13/2024 2:19 PM CDT XR CHEST PA LATERAL 2 VIEWS ED 11/13/2024 1:[address] OUTSIDE CONSULT Routine 11/13/2024 12:[address] OUTSIDE REFERENCE Routine 11/13/2024 12:13 PM CDT DIFFERENTIAL AUTO Routine 11/10/2024 2:46 PM CDT Stage 3b chronic kidney disease (HCC) Anemia in stage 3b chronic kidney disease (HCC) FERRITIN Routine 11/10/2024 2:46 PM CDT Stage 3b chronic kidney disease (HCC) Anemia in stage 3b chronic kidney disease (HCC) IRON PROFILE W/ IBC Routine 11/10/2024 2:46 PM CDT Stage 3b chronic kidney disease (HCC) Anemia in stage 3b chronic kidney disease (HCC) CBC WITH AUTO DIFFERENTIAL Routine 11/10/2024 2:46 PM CDT Stage 3b chronic kidney disease (HCC) Anemia in stage 3b chronic kidney disease (HCC) PROTIME-INR Routine 11/10/2024 2:46 PM CDT Status post mechanical aortic valve replacement Paroxysmal atrial fibrillation (HCC) Chronic anticoagulation PROTIME-INR Routine 11/10/2024 1:42 PM CDT Status post mechanical aortic valve replacement Paroxysmal atrial fibrillation (HCC) Chronic anticoagulation EGFR Routine 11/10/2024 1:38 PM CDT Essential hypertension DIFFERENTIAL AUTO Routine 11/10/2024 1:38 PM CDT Essential hypertension Gastroesophageal reflux disease without esophagitis CBC WITH AUTO DIFFERENTIAL Routine 11/10/2024 1:38 PM CDT Essential hypertension Gastroesophageal reflux disease without esophagitis COMPREHENSIVE METABOLIC PANEL Routine 11/10/2024 1:38 PM CDT Essential hypertension LIPID PANEL Routine 11/10/2024 1:38 PM CDT Mixed hyperlipidemia VITAMIN D 25 HYDROXY Routine 11/10/2024 1:38 PM CDT Stage 3a chronic kidney disease (HCC) Vitamin D deficiency THYROID FUNCTION CASCADE Routine 11/10/2024 1:38 PM CDT Essential hypertension CT THORACIC SPINE WO CONTRAST Schedule Routine, Read Routine (OP Routine) 11/10/2024 7:56 AM CDT EGFR Routine 10/21/2024 12:00 PM CDT Anemia in stage 3b chronic kidney disease (HCC) Secondary hyperparathyroidism PROTIME-INR Routine 10/21/2024 12:00 PM CDT Status post mechanical aortic valve replacement Paroxysmal atrial fibrillation (HCC) Chronic anticoagulation LACTATE DEHYDROGENASE Routine 10/21/2024 12:00 PM CDT Anemia in stage 3b chronic kidney disease (HCC) Secondary hyperparathyroidism IRON PROFILE W/ IBC Routine 10/21/2024 12:00 PM CDT Anemia in stage 3b chronic kidney disease (HCC) Secondary hyperparathyroidism HEMOGLOBIN AND HEMATOCRIT Routine 10/21/2024 12:00 PM CDT Anemia in stage 3b chronic kidney disease (HCC) Secondary hyperparathyroidism HAPTOGLOBIN Routine 10/21/2024 12:00 PM CDT Anemia in stage 3b chronic kidney disease (HCC) Secondary hyperparathyroidism BASIC METABOLIC PANEL Routine 10/21/2024 12:00 PM CDT Anemia in stage 3b chronic kidney disease (HCC) Secondary hyperparathyroidism DEVICE CHECK - IN OFFICE Routine 10/14/2024 10:44 AM CDT H/O cardiomyopathy LBBB (left bundle branch block) Atrial fibrillation, unspecified type (HCC) Chronic heart failure with preserved ejection fraction (HCC) Status post biventricular pacemaker EGFR Routine 09/23/2024 1:13 PM CDT Stage 3b chronic kidney disease (HCC) DIFFERENTIAL AUTO Routine 09/23/2024 1:13 PM CDT Stage 3b chronic kidney disease (HCC) PROTEIN / CREATININE RATIO, URINE, RANDOM Routine 09/23/2024 1:13 PM CDT Stage 3b chronic kidney disease (HCC) PTH Routine 09/23/2024 1:13 PM CDT Stage 3b chronic kidney disease (HCC) RENAL FUNCTION PANEL Routine 09/23/2024 1:13 PM CDT Stage 3b chronic kidney disease (HCC) VITAMIN D 25 HYDROXY Routine 09/23/2024 1:13 PM CDT Stage 3b chronic kidney disease (HCC) CBC WITH AUTO DIFFERENTIAL Routine 09/23/2024 1:13 PM CDT Stage 3b chronic kidney disease (HCC) PROTIME-INR Routine 09/23/2024 1:13 PM CDT Status post mechanical aortic valve replacement Paroxysmal atrial fibrillation (HCC) Chronic anticoagulation URINALYSIS AND REFLEX TO MICROSCOPIC AND CULTURE Routine 09/23/2024 1:13 PM CDT Stage 3b chronic kidney disease (HCC) SCREENING MAMMOGRAM BILATERAL W JAMEL Schedule Routine, Read Routine (OP Routine) 07/17/2023 12:59 PM TURF KEEPER Encounter for screening mammogram for malignant neoplasm of breast DEXA AXIAL SKELETON BONE DENSITY 1 OR MORE SITES Schedule Routine, Read Routine (OP Routine) 08/30/2021 10:30 AM TURF KEEPER Osteopenia of spine HEPATITIS C ANTIBODY Routine 08/17/2021 3:29 PM TURF KEEPER Encounter for hepatitis C screening test for low risk patient from Last 3 Months or Most Recently Relevant to Health Maintenance Results * ECG 12 lead (12/02/2024 7:15 AM CDT) [facility] Ventricular Rate EKG/Min 78 BPM [facility] Atrial Rate 78 BPM [facility] NH-Interval (MSEC) 152 ms [facility] QRS-Interval (MSEC) 130 ms [facility] QT-Interval (MSEC) 466 ms [facility] QTc 531 ms [facility] P [place] 105 degrees [facility] R [place] -29 degrees [facility] T [place] 127 degrees [facility] Diagnosis Sinus rhythm with Premature ventricular [...] longer Present Confirmed by RONNIE MENDEZ M.D ([id number]) on 12/02/2024 10:39:18 AM [facility] 12/02/2024 7:15 AM CDT 12/02/2024 10:39 AM CDT us Brittney Martinez MD ECG ORDERABLES Final Res ult [facility] * (ABNORMAL) eGFR (12/01/2024 9:24 PM CDT) Pathologist [facility] eGFR 33(L) >=60 mL/min/1. 73 m2 Comment: [...] PM CDT 12/01/2024 9:44 PM CDT us Baltzaar Manzano MD LAB BLOOD ORDERABLES F inal Result [facility] [address] [facility] [place] [address] * (ABNORMAL) Differential, auto (12/01/2024 9:24 PM CDT) Neutrophil abs 3.75 1.50 - 6.50 K/cumm Imm gran abs 0.01 0.00 - 0.10 K/cumm [facility] Lymphocyte abs 0.52(L) 0.80 - 3.30 K/cumm [facility] Monocyte abs 0.36 0.20 - 0.80 K/cumm [facility] Eosinophil abs 0.37 0.00 - 0.50 K/cumm [facility] Basophil abs 0.08 0.00 - 0.10 K/cumm [facility] Neutrophil pct 73.6 % [facility] Comment: Interpretive Data Percent cell count reference ranges are not reported, since discordance with absolute values may lead to misinterpretation of CBC data. Current Interpretive Data was last revised on 2017. Imm gran pct 0.2 % [facility] Comment: Interpretive Data Percent cell count reference ranges are not reported, since discordance with absolute values may lead to misinterpretation of CBC data. Current Interpretive Data was last revised on 2017. Lymphocyte pct 10.2 % [facility] Comment: Interpretive Data Percent cell count reference ranges are not reported, since discordance with absolute values may lead to misinterpretation of CBC data. Current Interpretive Data was last revised on 2017. Monocyte pct 7.1 % [facility] Comment: Interpretive Data Percent cell count reference ranges are not reported, since discordance with absolute values may lead to misinterpretation of CBC data. Current Interpretive Data was last revised on 2017. Eosinophil pct 7.3 % [facility] Comment: Interpretive Data Percent cell count reference ranges are not reported, since discordance with absolute values may lead to misinterpretation of CBC data. Current Interpretive Data was last revised on 2017. Basophil pct 1.6 % [facility] Comment: Interpretive Data Percent cell count reference ranges are not reported, since discordance with absolute values may lead to misinterpretation of CBC data. Current Interpretive Data was last revised on 2017. Blood 12/01/2024 9:24 PM CDT 12/01/2024 9:44 PM CDT us Baltazar Manzano MD LAB BLOOD ORDERABLES F inal Result [facility] [place] [address] * (ABNORMAL) CBC with auto differential (12/01/2024 9:24 PM CDT) WBC 5.09 3.80 - 9.90 K/cumm Hgb 7.8(L) 11.9 - 15.5 g/dL [facility] Hct 26.0(L) 35.6 - 45.5 % [facility] Plt 176 150 - 400 K/cumm [facility] MPV 11.5 9.1 - 12.3 fL [facility] RBC 2.90(L) 3.90 - 5.20 M/cumm [facility] MCV 89.7 81.3 - 96.4 fL [facility] MCH 26.9(L) 27.1 - 33.3 pg [facility] MCHC 30.0(L) 32.3 - 35.7 g/dL [facility] RDW CV 17.2(H) 11.1 - 14.9 % [facility] RDW SD 55.6(H) 35.7 - 48.1 fL [facility] NRBC abs 0.00 0.00 - 0.01 K/cumm [facility] Blood 12/01/2024 9:24 PM CDT 12/01/2024 9:44 PM CDT Baltazar Manzano MD LAB BLOOD ORDERABLES F inal Result Performing Organization Address [facility] de Phone Number [facility] [email or web address] [place] [address] * (ABNORMAL) Protime-INR (12/01/2024 9:24 PM CDT) PT 22.9(H) 9.7 - 13.0 sec INR 2.09(H) 0.90 - 1.20 [facility] Comment: Interpretive data Oral anticoagulant [...] ORDERABLES F inal Result Performing Organization Address [facility] Co de Phone Number [facility] [employer] ([employer]) [place] [address] * (ABNORMAL) Hepatic function panel (12/01/2024 9:24 PM CDT) [facility] Bilirubin, total <0.2 0.1 - 1.2 mg/dL Bilirubin, direct <0.2 0.1 - 0.3 mg/dL [facility] Protein, pl 7.0 6.5 - 8.5 g/dL [facility] Albumin 3.4(L) 3.5 - 5.0 g/dL [facility] Alk phos 105 40 - 130 Units/L [facility] ALT 40 7 - 45 Units/L [facility] AST 53(H) 10 - 45 Units/L [facility] Blood 12/01/2024 9:24 PM CDT 12/01/2024 9:44 PM CDT us Brittney Martinez MD LAB BLOOD ORDERABLES Mirtha l Result [facility] [place] [address] * (ABNORMAL) Basic metabolic panel (12/01/2024 9:24 PM CDT) [facility] Sodium 142 135 - 145 mmol/L Potassium, pl 4.6 3.3 - 4.9 mmol/L [facility] Chloride 108 97 - 110 mmol/L [facility] CO2 24 22 - 32 mmol/L [facility] Anion gap 10 2 - 15 mmol/L [facility] BUN 10 6 - 25 mg/dL [facility] Creatinine 1.70(H) 0.60 - 1.10 mg/dL [facility] Glucose 98 70 - 199 mg/dL [facility] Comment: Interpretive Data Fasting glucose >/= 126 [...] 2022. Calcium 8.5 8.5 - 10.3 mg/dL [facility] Blood 12/01/2024 9:24 PM CDT 12/01/2024 9:44 PM CDT us Baltazar Manzano MD LAB BLOOD ORDERABLES F inal Result [facility] [place] [address] * CT Head WO Contrast (12/01/2024 7:33 [...] effect or midline shift is present. The tucker-white matter differentiation is normal. The visualized portions [...] effect or midline shift is present. The tucker-white matter differentiation is normal. The visualized portions [...] it. Electronically signed by: Shilo Miller M.D. Brittney Martinez MD IMG CT PROCEDURES Final [...] No mass effect or midline shift. Normal tucker-white matter differentiation. Imaged portions of the orbits [...] No mass effect or midline shift. Normal tucker-white matter differentiation. Imaged portions of the orbits [...] it. Electronically signed by: Aiden Macias MD us Brittney Martinez MD IMG CT PROCEDURES [...] 9:16 PM CDT 11/30/2024 9:40 PM CDT us Baltazar Manzano MD LAB BLOOD ORDERABLES F inal Result [facility] [place] [address] * (ABNORMAL) Protime-INR (11/30/2024 9:16 PM CDT) PT 16.8(H) 9.7 - 13.0 sec INR 1.54(H) 0.90 - 1.20 [facility] Comment: Interpretive [...] MD LAB BLOOD ORDERABLES Final Resu lt [facility] [place] [address] * Type and screen (11/30/2024 9:16 PM CDT) Pathologist [facility] Man, indirect Negative ABO Rh A Positive [facility] Blood 11/30/2024 9:16 PM CDT 11/30/2024 9:49 PM CDT Narrative [facility] - 11/30/2024 10:42 PM CDT Has the patient had Daratumumab or Isatuximab in the past 6 months?->Unknown Baltazar Manzano MD LAB BLOOD BANK TEST OR DERABLES Final Result Performing Organization Address City/[facility]/ZIP Co de Phone Number [facility] [place] [address] * (ABNORMAL) Basic metabolic panel (11/30/2024 9:16 PM CDT) Pathologist [facility] Sodium 140 135 - 145 mmol/L Potassium, pl 4.4 3.3 - 4.9 mmol/L [facility] Chloride 110 97 - 110 mmol/L [facility] CO2 25 22 - 32 mmol/L [facility] Anion gap 5 2 - 15 mmol/L [facility] BUN 10 6 - 25 mg/dL [facility] Creatinine 1.59(H) 0.60 - 1.10 mg/dL [facility] Glucose 123 70 - 199 mg/dL [facility] Comment: Interpretive Data Fasting glucose >/= 126 [...] 2022. Calcium 8.5 8.5 - 10.3 mg/dL [facility] Blood 11/30/2024 9:16 PM CDT 11/30/2024 9:40 PM CDT us Baltazar Manzano MD LAB BLOOD ORDERABLES F inal Result [facility] [place] [address] * (ABNORMAL) eGFR (11/29/2024 10:18 PM CDT) eGFR 34(L) >=60 mL/min/1. 73 m2 Comment: [...] MD LAB BLOOD ORDERABLES F inal Result [facility] [place] [address] * (ABNORMAL) Differential, auto (11/29/2024 10:18 PM CDT) Neutrophil abs 4.10 1.50 - 6.50 K/cumm Imm gran abs 0.03 0.00 - 0.10 K/cumm [facility] Lymphocyte abs 0.70(L) 0.80 - 3.30 K/cumm [facility] Monocyte abs 0.44 0.20 - 0.80 K/cumm [facility] Eosinophil abs 0.45 0.00 - 0.50 K/cumm [facility] Basophil abs 0.07 0.00 - 0.10 K/cumm [facility] Neutrophil pct 70.8 % [facility] Comment: Interpretive Data Percent cell count reference ranges are not reported, since discordance with absolute values may lead to misinterpretation of CBC data. Current Interpretive Data was last revised on 2017. Imm gran pct 0.5 % [facility] Comment: Interpretive Data Percent cell count reference ranges are not reported, since discordance with absolute values may lead to misinterpretation of CBC data. Current Interpretive Data was last revised on 2017. Lymphocyte pct 12.1 % [facility] Comment: Interpretive Data Percent cell count reference ranges are not reported, since discordance with absolute values may lead to misinterpretation of CBC data. Current Interpretive Data was last revised on 2017. Monocyte pct 7.6 % [facility] Comment: Interpretive Data Percent cell count reference ranges are not reported, since discordance with absolute values may lead to misinterpretation of CBC data. Current Interpretive Data was last revised on 2017. Eosinophil pct 7.8 % [facility] Comment: Interpretive Data Percent cell count reference ranges are not reported, since discordance with absolute values may lead to misinterpretation of CBC data. Current Interpretive Data was last revised on 2017. Basophil pct 1.2 % [facility] Comment: Interpretive Data Percent cell count reference ranges are not reported, since discordance with absolute values may lead to misinterpretation of CBC data. Current Interpretive Data was last revised on 2017. Blood 11/29/2024 10:1 8 PM CDT 11/29/2024 11:31 PM CDT Baltazar Manzano MD LAB BLOOD ORDERABLES F inal Result Performing Organization Address City/[facility]/ZIP Co de Phone Number [facility] [place] [address] * (ABNORMAL) CBC with auto differential (11/29/2024 10:18 PM CDT) WBC 5.79 3.80 - 9.90 K/cumm Hgb 7.3(L) 11.9 - 15.5 g/dL [facility] Hct 24.1(L) 35.6 - 45.5 % [facility] Plt 162 150 - 400 K/cumm [facility] MPV 11.8 9.1 - 12.3 fL [facility] RBC 2.69(L) 3.90 - 5.20 M/cumm [facility] MCV 89.6 81.3 - 96.4 fL [facility] MCH 27.1 27.1 - 33.3 pg [facility] MCHC 30.3(L) 32.3 - 35.7 g/dL [facility] RDW CV 17.1(H) 11.1 - 14.9 % [facility] RDW SD 55.2(H) 35.7 - 48.1 fL [facility] NRBC abs 0.00 0.00 - 0.01 K/cumm [facility] Blood 11/29/2024 10:1 8 PM CDT 11/29/2024 11:31 PM CDT Baltazar Manzano MD LAB BLOOD ORDERABLES F inal Result [facility] [place] [address] * (ABNORMAL) Protime-INR (11/29/2024 10:18 PM CDT) PT 15.1(H) 9.7 - 13.0 sec INR 1.39(H) 0.90 - 1.20 [facility] Comment: Interpretive data Oral anticoagulant [...] ORDERABLES Final Resu lt Performing Organization Address City/State/[facility] Co de Phone Number [facility] [place] [address] * (ABNORMAL) Basic metabolic panel (11/29/2024 10:18 PM CDT) Sodium 145 135 - 145 mmol/L Potassium, pl 4.2 3.3 - 4.9 mmol/L [facility] Chloride 111(H) 97 - 110 mmol/L [facility] CO2 24 22 - 32 mmol/L [facility] Anion gap 10 2 - 15 mmol/L [facility] BUN 12 6 - 25 mg/dL [facility] Creatinine 1.63(H) 0.60 - 1.10 mg/dL [facility] Glucose 99 70 - 199 mg/dL [facility] Comment: Interpretive Data Fasting glucose >/= 126 [...] 2022. Calcium 8.5 8.5 - 10.3 mg/dL [facility] Blood 11/29/2024 10:1 8 PM CDT 11/29/2024 11:31 PM CDT Baltazar Manzano MD LAB BLOOD ORDERABLES F inal Result Performing Organization Address City/[facility] Co de Phone Number [facility] [place] [address] * (ABNORMAL) eGFR (11/29/2024 9:25 AM CDT) [...] MD LAB BLOOD ORDERABLES [facility]al [facility] [place] [address] * Heparin anti factor Xa activity (11/29/2024 [...] LAB BLOOD ORDERABLES F inal Result [facility] [place] [address] * (ABNORMAL) aPTT (11/29/2024 9:25 AM CDT) aPTT 40(H) 28 - 38 sec Comment: Interpretive Data Heparin therapeutic range: 66.0 - 100.0 seconds. Range based on correlation with therapeutic heparin activity range of 0.3 - 0.7 Units/mL. Current interpretive data was last revised on 2023. Blood 11/29/2024 9:25 AM CDT 11/29/2024 9:37 AM CDT Narrative [facility] - 11/29/2024 10:00 AM CDT Baseline prior to enoxaparin initiation. Baltazar Manzano MD LAB BLOOD ORDERABLES F inal Result Performing Organization Address [facility]/[place] [address] * (ABNORMAL) Protime-INR (11/29/2024 9:25 AM CDT) PT 15.7(H) 9.7 - 13.0 sec INR 1.44(H) 0.90 - 1.20 [facility] Comment: Interpretive data Oral anticoagulant therapeutic ranges: Venous thromboembolism prophylaxis or treatment: 2.0-3.0 CARDIOLOGY Standard range: 2.0-3.0 High-intensity range: 2.5-3.5 Refer to indication-specific guidelines for appropriate target ranges for prosthetic heart valve replacement. Current interpretive data was last revised on 2019. Blood 11/29/2024 9:25 AM CDT 11/29/2024 9:37 AM CDT Narrative [facility] - 11/29/2024 10:00 AM CDT Baseline prior to enoxaparin initiation. Baltazar Manzano MD LAB BLOOD ORDERABLES F inal Result Performing Organization Address [facility] de Phone Number [facility] [employer] ([employer]) [place] [address] * (ABNORMAL) CBC without differential (11/29/2024 9:25 AM CDT) WBC 7.02 3.80 - 9.90 K/cumm Hgb 8.2(L) 11.9 - 15.5 g/dL [facility] Hct 27.4(L) 35.6 - 45.5 % [facility] Plt 187 150 - 400 K/cumm [facility] MPV 11.1 9.1 - 12.3 fL [facility] RBC 3.07(L) 3.90 - 5.20 M/cumm [facility] MCV 89.3 81.3 - 96.4 fL [facility] MCH 26.7(L) 27.1 - 33.3 pg [facility] MCHC 29.9(L) 32.3 - 35.7 g/dL [facility] RDW CV 17.1(H) 11.1 - 14.9 % [facility] RDW SD 54.7(H) 35.7 - 48.1 fL [facility] NRBC abs 0.00 0.00 - 0.01 K/cumm [facility] Blood 11/29/2024 9:25 AM CDT 11/29/2024 9:37 AM CDT [facility] - 11/29/2024 9:45 AM CDT Baseline prior to enoxaparin initiation. Baltazar Manzano MD LAB BLOOD ORDERABLES F inal Result Performing Organization Address City/[facility]/ZIP Co de Phone Number [facility] Department of [employer] ([employer]) [place] [address] * (ABNORMAL) Creatinine (11/29/2024 9:25 AM CDT) [facility] Creatinine 1.61(H) 0.60 - 1.10 mg/dL Blood 11/29/2024 9:25 AM CDT 11/29/2024 9:37 AM CDT [facility] - 11/29/2024 10:03 AM CDT Baseline prior to enoxaparin initiation. Baltazar Manzano MD LAB BLOOD ORDERABLES F inal Result Performing Organization Address City/[facility]/ZIP Co de Phone Number [facility] [email or web address] [place] [address] * (ABNORMAL) eGFR (11/28/2024 10:47 PM CDT) [...] MD LAB BLOOD ORDERABLES F inal Result [facility] [place] [address] * (ABNORMAL) Protime-INR (11/28/2024 10:47 PM CDT) PT 18.1(H) 9.7 - 13.0 sec INR 1.66(H) 0.90 - 1.20 [facility] Comment: Interpretive data Oral anticoagulant therapeutic ranges: Venous thromboembolism prophylaxis or treatment: 2.0-3.0 CARDIOLOGY Standard range: 2.0-3.0 High-intensity range: 2.5-3.5 Refer to indication-specific guidelines for appropriate target ranges for prosthetic heart valve replacement. Current interpretive data was last revised on 2019. Blood 11/28/2024 10:4 7 PM CDT 11/29/2024 12:14 AM CDT us Kandis Spencer MD LAB BLOOD ORDERABLES Final Resu lt [facility] Department of [employer] ([employer]) [place] [address] * (ABNORMAL) Basic metabolic panel (11/28/2024 10:47 PM CDT) Sodium 139 135 - 145 mmol/L Potassium, pl 3.7 3.3 - 4.9 mmol/L [facility] Chloride 104 97 - 110 mmol/L [facility] CO2 25 22 - 32 mmol/L [facility] Anion gap 10 2 - 15 mmol/L [facility] BUN 13 6 - 25 mg/dL [facility] Creatinine 1.52(H) 0.60 - 1.10 mg/dL [facility] Glucose 131 70 - 199 mg/dL [facility] Comment: Interpretive Data Fasting glucose >/= 126 [...] 2022. Calcium 8.1(L) 8.5 - 10.3 mg/dL [facility] Blood 11/28/2024 10:4 7 PM CDT 11/28/2024 11:38 PM CDT Baltazar Manzano MD LAB BLOOD ORDERABLES F inal Result Performing Organization Address City/[facility]/ZIP Co de Phone Number [facility] [place] [address] * (ABNORMAL) aPTT (11/28/2024 2:32 PM CDT) aPTT 50(H) 28 - 38 sec Comment: Interpretive Data Heparin therapeutic range: 66.0 - 100.0 seconds. Range based on correlation with therapeutic heparin activity range of 0.3 - 0.7 Units/mL. Current interpretive data was last revised on 2023. Blood 11/28/2024 2:32 PM CDT 11/28/2024 2:47 PM CDT Narrative [facility] - 11/28/2024 3:10 PM CDT STAT PTT [...] ORDERABLES Final R esult [facility] [place] [address] * (ABNORMAL) aPTT (11/28/2024 12:40 PM CDT) [facility] Signature aPTT 52(H) 28 - 38 sec Comment: [...] must be drawn peripherally (not from CVC). Ranulfo Gentile MD LAB BLOOD ORDERABLES Final R esult Performing Organization Address [facility]/ZIP Co de Phone Number [facility] [place] [address] * (ABNORMAL) aPTT (11/28/2024 10:37 AM CDT) [facility] aPTT 53(H) 28 - 38 sec Comment: Interpretive Data Heparin therapeutic range: 66.0 - 100.0 seconds. Range based on correlation with therapeutic heparin activity range of 0.3 - 0.7 Units/mL. Current interpretive data was last revised on 2023. Blood 11/28/2024 10:3 7 AM CDT 11/28/2024 10:48 AM CDT Patsy [facility] - 11/28/2024 11:15 AM CDT STAT PTT [...] must be drawn peripherally (not from CVC). Ranulfo Gentile MD LAB BLOOD ORDERABLES Final R [employer] Transportult Performing Organization Address [facility]/ZIP Co de Phone Number [facility] [place] [address] * (ABNORMAL) aPTT (11/28/2024 8:22 AM CDT) aPTT 50(H) 28 - 38 sec Comment: Interpretive Data Heparin therapeutic range: 66.0 - 100.0 seconds. Range based on correlation with therapeutic heparin activity range of 0.3 - 0.7 Units/mL. Current interpretive data was last revised on 2023. Blood 11/28/2024 8:22 AM CDT 11/28/2024 8:34 AM CDT Narrative [facility] - 11/28/2024 8:56 AM CDT STAT PTT [...] ORDERABLES Final R esult [facility] [place] [address] * (ABNORMAL) aPTT (11/28/2024 4:19 AM CDT) [...] ORDERABLES F inal Result Performing Organization Address City/[facility] Co de Phone Number [facility] [place] [address] * (ABNORMAL) eGFR (11/27/2024 8:31 PM CDT) [...] ORDERABLES F inal Result Performing Organization Address City/[facility]/ZIP Co de Phone Number [facility] [place] [address] * Differential, auto (11/27/2024 8:31 PM CDT) Neutrophil abs 4.46 1.50 - 6.50 K/cumm Imm gran abs 0.01 0.00 - 0.10 K/cumm [facility] Lymphocyte abs 0.80 0.80 - 3.30 K/cumm [facility] Monocyte abs 0.47 0.20 - 0.80 K/cumm [facility] Eosinophil abs 0.30 0.00 - 0.50 K/cumm [facility] Basophil abs 0.07 0.00 - 0.10 K/cumm [facility] Neutrophil pct 73.0 % [facility] Comment: Interpretive Data Percent cell count reference ranges are not reported, since discordance with absolute values may lead to misinterpretation of CBC data. Current Interpretive Data was last revised on 2017. Imm gran pct 0.2 % [facility] Comment: Interpretive Data Percent cell count reference ranges are not reported, since discordance with absolute values may lead to misinterpretation of CBC data. Current Interpretive Data was last revised on 2017. Lymphocyte pct 13.1 % [facility] Comment: Interpretive Data Percent cell count reference ranges are not reported, since discordance with absolute values may lead to misinterpretation of CBC data. Current Interpretive Data was last revised on 2017. Monocyte pct 7.7 % [facility] Comment: Interpretive Data Percent cell count reference ranges are not reported, since discordance with absolute values may lead to misinterpretation of CBC data. Current Interpretive Data was last revised on 2017. Eosinophil pct 4.9 % [facility] Comment: Interpretive Data Percent cell count reference ranges are not reported, since discordance with absolute values may lead to misinterpretation of CBC data. Current Interpretive Data was last revised on 2017. Basophil pct 1.1 % [facility] Comment: Interpretive Data Percent cell count reference ranges are not reported, since discordance with absolute values may lead to misinterpretation of CBC data. Current Interpretive Data was last revised on 2017. Blood 11/27/2024 8:31 PM CDT 11/27/2024 9:03 PM CDT us Baltazar Manzano MD LAB BLOOD ORDERABLES F inal Result [facility] [place] [address] * (ABNORMAL) CBC with auto differential (11/27/2024 8:31 PM CDT) Pathologist [facility] WBC 6.11 3.80 - 9.90 K/cumm Hgb 7.8(L) 11.9 - 15.5 g/dL [facility] Hct 25.6(L) 35.6 - 45.5 % [facility] Plt 168 150 - 400 K/cumm [facility] MPV 11.6 9.1 - 12.3 fL [facility] RBC 2.88(L) 3.90 - 5.20 M/cumm [facility] MCV 88.9 81.3 - 96.4 fL [facility] MCH 27.1 27.1 - 33.3 pg [facility] MCHC 30.5(L) 32.3 - 35.7 g/dL [facility] RDW CV 17.0(H) 11.1 - 14.9 % [facility] RDW SD 54.6(H) 35.7 - 48.1 fL [facility] NRBC abs 0.00 0.00 - 0.01 K/cumm [facility] Blood 11/27/2024 8:31 PM CDT 11/27/2024 9:03 PM CDT Baltazar Manzano MD LAB BLOOD ORDERABLES F inal Result [facility] [place] [address] * (ABNORMAL) Protime-INR (11/27/2024 8:31 PM CDT) Pathologist [facility] PT 16.6(H) 9.7 - 13.0 sec INR 1.52(H) 0.90 - 1.20 [facility] Comment: Interpretive data Oral anticoagulant [...] ORDERABLES Final Resu lt Performing Organization Address [facility] Co de Phone Number [facility] [place] [address] * Type and screen (11/27/2024 8:31 PM CDT) Pathologist [facility] ABO Rh A Positive Man, indirect Negative [facility] Blood 11/27/2024 8:31 PM CDT 11/27/2024 9:15 PM CDT Narrative [facility] - 11/27/2024 10:20 PM CDT Has the patient had Daratumumab or Isatuximab in the past 6 months?->Unknown Baltazar Manzano MD LAB BLOOD BANK TEST OR DERABLES Final Result Performing Organization Address [facility] Co de Phone Number [facility] [place] [address] * (ABNORMAL) Basic metabolic panel (11/27/2024 8:31 PM CDT) Pathologist [facility] Sodium 140 135 - 145 mmol/L Potassium, pl 4.3 3.3 - 4.9 mmol/L [facility] Chloride 108 97 - 110 mmol/L [facility] CO2 25 22 - 32 mmol/L [facility] Anion gap 7 2 - 15 mmol/L [facility] BUN 14 6 - 25 mg/dL [facility] Creatinine 1.70(H) 0.60 - 1.10 mg/dL [facility] Glucose 102 70 - 199 mg/dL [facility] Comment: Interpretive Data Fasting glucose >/= 126 [...] 2022. Calcium 8.5 8.5 - 10.3 mg/dL [facility] Blood 11/27/2024 8:31 PM CDT 11/27/2024 9:03 PM CDT Baltazar Manzano MD LAB BLOOD ORDERABLES F inal Result Performing Organization Address [facility]/[place] de Phone Number [facility] [employer] ([employer]) [place] [address] * (ABNORMAL) aPTT (11/27/2024 5:13 AM CDT) [...] ORDERABLES F inal Result Performing Organization Address [facility] de Phone Number [facility] of [employer] ([employer]) [place] [address] * (ABNORMAL) eGFR (11/26/2024 7:52 PM CDT) eGFR 32(L) >=60 mL/min/1. 73 m2 Comment: [...] MD LAB BLOOD ORDERABLES F inal Result [facility] [place] [address] * Differential, auto (11/26/2024 7:52 PM CDT) Pathologist [facility] Neutrophil abs 4.75 1.50 - 6.50 K/cumm Imm gran abs 0.03 0.00 - 0.10 K/cumm [facility] Lymphocyte abs 0.82 0.80 - 3.30 K/cumm [facility] Monocyte abs 0.50 0.20 - 0.80 K/cumm [facility] Eosinophil abs 0.24 0.00 - 0.50 K/cumm [facility] Basophil abs 0.06 0.00 - 0.10 K/cumm [facility] Neutrophil pct 74.2 % [facility] Comment: Interpretive Data Percent cell count reference ranges are not reported, since discordance with absolute values may lead to misinterpretation of CBC data. Current Interpretive Data was last revised on 2017. Imm gran pct 0.5 % [facility] Comment: Interpretive Data Percent cell count reference ranges are not reported, since discordance with absolute values may lead to misinterpretation of CBC data. Current Interpretive Data was last revised on 2017. Lymphocyte pct 12.8 % [facility] Comment: Interpretive Data Percent cell count reference ranges are not reported, since discordance with absolute values may lead to misinterpretation of CBC data. Current Interpretive Data was last revised on 2017. Monocyte pct 7.8 % [facility] Comment: Interpretive Data Percent cell count reference ranges are not reported, since discordance with absolute values may lead to misinterpretation of CBC data. Current Interpretive Data was last revised on 2017. Eosinophil pct 3.8 % [facility] Comment: Interpretive Data Percent cell count reference ranges are not reported, since discordance with absolute values may lead to misinterpretation of CBC data. Current Interpretive Data was last revised on 2017. Basophil pct 0.9 % [facility] Comment: Interpretive Data Percent cell count reference ranges are not reported, since discordance with absolute values may lead to misinterpretation of CBC data. Current Interpretive Data was last revised on 2017. Blood 11/26/2024 7:52 PM CDT 11/26/2024 8:01 PM CDT Baltazar Manzano MD LAB BLOOD ORDERABLES F inal Result [facility] [place] [address] * (ABNORMAL) CBC with auto differential (11/26/2024 7:52 PM CDT) WBC 6.40 3.80 - 9.90 K/cumm Hgb 7.7(L) 11.9 - 15.5 g/dL [facility] Hct 25.0(L) 35.6 - 45.5 % [facility] Plt 173 150 - 400 K/cumm [facility] MPV 11.0 9.1 - 12.3 fL [facility] RBC 2.84(L) 3.90 - 5.20 M/cumm [facility] MCV 88.0 81.3 - 96.4 fL [facility] MCH 27.1 27.1 - 33.3 pg [facility] MCHC 30.8(L) 32.3 - 35.7 g/dL [facility] RDW CV 17.0(H) 11.1 - 14.9 % [facility] RDW SD 53.6(H) 35.7 - 48.1 fL [facility] NRBC abs 0.00 0.00 - 0.01 K/cumm [facility] Blood 11/26/2024 7:52 PM CDT 11/26/2024 8:01 PM CDT Baltazar Manzano MD LAB BLOOD ORDERABLES F inal Result Performing Organization Address [facility] de Phone Number [facility] [place] [address] * (ABNORMAL) Protime-INR (11/26/2024 7:52 PM CDT) Pathologist [facility] PT 18.0(H) 9.7 - 13.0 sec INR 1.65(H) 0.90 - 1.20 [facility] Comment: Interpretive data Oral anticoagulant [...] ORDERABLES Final Resu lt Performing Organization Address [facility] Co de Phone Number [facility] [place] [address] * (ABNORMAL) Basic metabolic panel (11/26/2024 7:52 PM CDT) Pathologist [facility] Sodium 141 135 - 145 mmol/L Potassium, pl 4.3 3.3 - 4.9 mmol/L [facility] Chloride 107 97 - 110 mmol/L [facility] CO2 25 22 - 32 mmol/L [facility] Anion gap 9 2 - 15 mmol/L [facility] BUN 14 6 - 25 mg/dL [facility] Creatinine 1.75(H) 0.60 - 1.10 mg/dL [facility] Glucose 108 70 - 199 mg/dL [facility] Comment: Interpretive Data Fasting glucose >/= 126 [...] 2022. Calcium 8.4(L) 8.5 - 10.3 mg/dL [facility] Blood 11/26/2024 7:52 PM CDT 11/26/2024 8:02 PM CDT us Baltazar Manzano MD LAB BLOOD ORDERABLES F inal Result [facility] [place] [address] * (ABNORMAL) aPTT (11/26/2024 12:02 PM CDT) aPTT 53(H) 28 - 38 sec Comment: Interpretive Data Heparin therapeutic range: 66.0 - 100.0 seconds. Range based on correlation with therapeutic heparin activity range of 0.3 - 0.7 Units/mL. Current interpretive data was last revised on 2023. Blood 11/26/2024 12:0 2 PM CDT 11/26/2024 12:34 PM CDT Narrative [facility] - 11/26/2024 1:05 PM CDT [...] must be drawn peripherally (not from CVC). Ranulfo Gentile MD LAB BLOOD ORDERABLES Final R [employer]imarket Performing Organization Address [facility] Co de Phone Number [facility] of [employer] [place] [address] * (ABNORMAL) aPTT (11/26/2024 9:28 AM CDT) [facility] aPTT 50(H) 28 - 38 sec Comment: Interpretive Data Heparin therapeutic range: 66.0 - 100.0 seconds. Range based on correlation with therapeutic heparin activity range of 0.3 - 0.7 Units/mL. Current interpretive data was last revised on 2023. Blood 11/26/2024 9:28 AM CDT 11/26/2024 9:52 AM CDT Narrative [facility] - 11/26/2024 10:01 AM CDT STAT PTT [...] must be drawn peripherally (not from CVC). Ranulfo Gentile MD LAB BLOOD ORDERABLES Final R [employer]et Performing Organization Address [facility]/ZIP Co de Phone Number [facility] Department of [employer] [place] [address] * ECG 12 lead (11/26/2024 8:42 AM CDT) Pathologist [facility] Ventricular Rate EKG/Min 69 BPM [facility] Atrial Rate 234 BPM [facility] QRS-Interval (MSEC) 126 ms [facility] QT-Interval (MSEC) 476 ms [facility] QTc 510 ms [facility] R [place] -36 degrees [facility] T [place] 138 degrees [facility] Diagnosis Normal sinus rhythm Left axis deviation Non-specific intra-ventricul ar conduction block Inferior infarct , age undetermined Anterolateral infarct , age undetermined Abnormal ECG When compared with ECG of 25-NOV-2024 20:58, (unconfirmed) Non-specific intra-ventricul ar conduction delay has replaced Sinus rhythm Confirmed by MARVIN POMPA M.D ([id number]) on 11/27/2024 1:25:53 PM [facility] 11/26/2024 8:42 AM CDT 11/27/2024 1:25 PM CDT Baltazar Manzano MD ECG ORDERABLES Final Result [facility] * (ABNORMAL) aPTT (11/26/2024 6:47 AM CDT) Pathologist [facility] aPTT 43(H) 28 - 38 sec Comment: Interpretive Data Heparin therapeutic range: 66.0 - 100.0 seconds. Range based on correlation with therapeutic heparin activity range of 0.3 - 0.7 Units/mL. Current interpretive data was last revised on 2023. Blood 11/26/2024 6:47 AM CDT 11/26/2024 7:03 AM CDT Baltazar Manzano MD LAB BLOOD ORDERABLES F inal Result [facility] [place] [address] * (ABNORMAL) aPTT (11/26/2024 4:03 AM CDT) [...] ORDERABLES F inal Result Performing Organization Address City/[facility]/ZIP Co de Phone Number [facility] [place] [address] * (ABNORMAL) eGFR (11/26/2024 12:42 AM CDT) [...] ORDERABLES F inal Result Performing Organization Address City/[facility]/ZIP Co de Phone Number [facility] [place] [address] * (ABNORMAL) Differential, auto (11/26/2024 12:42 AM CDT) Neutrophil abs 6.36 1.50 - 6.50 K/cumm Imm gran abs 0.03 0.00 - 0.10 K/cumm [facility] Lymphocyte abs 0.72(L) 0.80 - 3.30 K/cumm [facility] Monocyte abs 0.45 0.20 - 0.80 K/cumm [facility] Eosinophil abs 0.14 0.00 - 0.50 K/cumm [facility] Basophil abs 0.06 0.00 - 0.10 K/cumm [facility] Neutrophil pct 81.9 % [facility] Comment: Interpretive Data Percent cell count reference ranges are not reported, since discordance with absolute values may lead to misinterpretation of CBC data. Current Interpretive Data was last revised on 2017. Imm gran pct 0.4 % [facility] Comment: Interpretive Data Percent cell count reference ranges are not reported, since discordance with absolute values may lead to misinterpretation of CBC data. Current Interpretive Data was last revised on 2017. Lymphocyte pct 9.3 % [facility] Comment: Interpretive Data Percent cell count reference ranges are not reported, since discordance with absolute values may lead to misinterpretation of CBC data. Current Interpretive Data was last revised on 2017. Monocyte pct 5.8 % [facility] Comment: Interpretive Data Percent cell count reference ranges are not reported, since discordance with absolute values may lead to misinterpretation of CBC data. Current Interpretive Data was last revised on 2017. Eosinophil pct 1.8 % [facility] Comment: Interpretive Data Percent cell count reference ranges are not reported, since discordance with absolute values may lead to misinterpretation of CBC data. Current Interpretive Data was last revised on 2017. Basophil pct 0.8 % [facility] Comment: Interpretive Data Percent cell count reference ranges are not reported, since discordance with absolute values may lead to misinterpretation of CBC data. Current Interpretive Data was last revised on 2017. Blood 11/26/2024 12:4 2 AM CDT 11/26/2024 12:58 AM CDT Baltazar Manzano MD LAB BLOOD ORDERABLES F inal Result Performing Organization Address [facility] Co de Phone Number [facility] [place] [address] * (ABNORMAL) CBC with auto differential (11/26/2024 12:42 AM CDT) Pathologist [facility] WBC 7.76 3.80 - 9.90 K/cumm Hgb 8.2(L) 11.9 - 15.5 g/dL [facility] Hct 26.7(L) 35.6 - 45.5 % [facility] Plt 162 150 - 400 K/cumm [facility] MPV 11.2 9.1 - 12.3 fL [facility] RBC 3.04(L) 3.90 - 5.20 M/cumm [facility] MCV 87.8 81.3 - 96.4 fL [facility] MCH 27.0(L) 27.1 - 33.3 pg [facility] MCHC 30.7(L) 32.3 - 35.7 g/dL [facility] RDW CV 16.7(H) 11.1 - 14.9 % [facility] RDW SD 53.0(H) 35.7 - 48.1 fL [facility] NRBC abs 0.00 0.00 - 0.01 K/cumm [facility] Blood 11/26/2024 12:4 2 AM CDT 11/26/2024 12:58 AM CDT Baltazar Manzano MD LAB BLOOD ORDERABLES F inal Result Performing Organization Address City/[facility]/ZIP Co de Phone Number [facility] [place] [address] * (ABNORMAL) aPTT (11/26/2024 12:42 AM CDT) aPTT 25(L) 28 - 38 sec Comment: Interpretive Data Heparin therapeutic range: 66.0 - 100.0 seconds. Range based on correlation with therapeutic heparin activity range of 0.3 - 0.7 Units/mL. Current interpretive data was last revised on 2023. Blood 11/26/2024 12:4 2 AM CDT 11/26/2024 1:09 AM CDT Narrative [facility] - 11/26/2024 1:19 AM CDT Baseline prior to bivalirudin initiation. Baltazar Manzano MD LAB BLOOD ORDERABLES F inal Result Performing Organization Address [facility]/[place] de Phone Number [facility] [place] [email or web address] [place] [address] * (ABNORMAL) Protime-INR (11/26/2024 12:42 AM CDT) Pathologist [facility] PT 13.1(H) 9.7 - 13.0 sec INR 1.21(H) 0.90 - 1.20 [facility] Comment: Interpretive data Oral anticoagulant therapeutic ranges: Venous thromboembolism prophylaxis or treatment: 2.0-3.0 CARDIOLOGY Standard range: 2.0-3.0 High-intensity range: 2.5-3.5 Refer to indication-specific guidelines for appropriate target ranges for prosthetic heart valve replacement. Current interpretive data was last revised on 2019. Blood 11/26/2024 12:4 2 AM CDT 11/26/2024 1:09 AM CDT Narrative [facility] - 11/26/2024 1:19 AM CDT Baseline prior to bivalirudin initiation. Baltazar Manzano MD LAB BLOOD ORDERABLES F inal Result Performing Organization Address [facility]/[place] de Phone Number [facility] of [employer] [place] [address] * (ABNORMAL) Hepatic function panel (11/26/2024 12:42 AM CDT) Pathologist [facility] Bilirubin, total <0.2 0.1 - 1.2 mg/dL Bilirubin, direct <0.2 0.1 - 0.3 mg/dL [facility] Protein, pl 6.7 6.5 - 8.5 g/dL [facility] Albumin 3.3(L) 3.5 - 5.0 g/dL [facility] Alk phos 91 40 - 130 Units/L [facility] ALT 16 7 - 45 Units/L [facility] AST 30 10 - 45 Units/L [facility] Blood 11/26/2024 12:4 2 AM CDT 11/26/2024 12:58 AM CDT Cielo Soler NP LAB BLOOD ORDERABLES F inal Result [facility] [place] [address] * (ABNORMAL) Basic metabolic panel (11/26/2024 12:42 AM CDT) [facility] Sodium 142 135 - 145 mmol/L Potassium, pl 4.3 3.3 - 4.9 mmol/L [facility] Chloride 110 97 - 110 mmol/L [facility] CO2 23 22 - 32 mmol/L [facility] Anion gap 9 2 - 15 mmol/L [facility] BUN 10 6 - 25 mg/dL [facility] Creatinine 1.43(H) 0.60 - 1.10 mg/dL [facility] Glucose 70 70 - 199 mg/dL [facility] Comment: Interpretive Data Fasting glucose >/= 126 [...] 2022. Calcium 8.6 8.5 - 10.3 mg/dL [facility] Blood 11/26/2024 12:4 2 AM CDT 11/26/2024 12:58 AM CDT us Baltazar Manzano MD LAB BLOOD ORDERABLES F inal Result Performing Organization Address [facility] Co de Phone Number [facility] [place] [address] * (ABNORMAL) eGFR (11/25/2024 9:52 PM CDT) [...] PM CDT 11/25/2024 10:09 PM CDT us Treva Andrade MD LAB BLOOD ORDERABL ES Final Result Performing Organization Address City/[facility]/ZIP Co de Phone Number [facility] [place] [address] * Phosphorus (11/25/2024 9:52 PM CDT) Phosphorus, pl 3.2 2.3 - 4.5 mg/dL Blood 11/25/2024 9:52 PM CDT 11/25/2024 10:09 PM CDT Treva Andrade MD LAB BLOOD ORDERABL ES Final Result Performing Organization Address City/[facility] Co de Phone Number [facility] [place] [address] * Magnesium (11/25/2024 9:52 PM CDT) Pathologist [facility] Magnesium 2.0 1.4 - 2.5 mg/dL Blood 11/25/2024 9:52 PM CDT 11/25/2024 10:09 PM CDT Treva Andrade MD LAB BLOOD ORDERABL ES Final Result Performing Organization Address [facility]/[place] de Phone Number [facility] [employer] [place] [address] * (ABNORMAL) Basic metabolic panel (11/25/2024 9:52 PM CDT) [facility] Sodium 145 135 - 145 mmol/L Potassium, pl 3.9 3.3 - 4.9 mmol/L [facility] Chloride 114(H) 97 - 110 mmol/L [facility] CO2 21(L) 22 - 32 mmol/L [facility] Anion gap 10 2 - 15 mmol/L [facility] BUN 9 6 - 25 mg/dL [facility] Creatinine 1.22(H) 0.60 - 1.10 mg/dL [facility] Glucose 74 70 - 199 mg/dL [facility] Comment: Interpretive Data Fasting glucose >/= 126 [...] 2022. Calcium 8.0(L) 8.5 - 10.3 mg/dL [facility] Blood 11/25/2024 9:52 PM CDT 11/25/2024 10:09 PM CDT us Treva Andrade MD LAB BLOOD ORDERABL ES Final Result [facility] [place] [address] * ECG 12 lead (11/25/2024 8:58 PM CDT) Pathologist [facility] Ventricular Rate EKG/Min 92 BPM [facility] Atrial Rate 92 BPM [facility] NH-Interval (MSEC) 176 ms [facility] QRS-Interval (MSEC) 130 ms [facility] QT-Interval (MSEC) 428 ms [facility] QTc 529 ms [facility] P [place] 35 degrees [facility] R [place] -37 degrees [facility] T [place] 136 degrees [facility] Diagnosis Sinus rhythm with occasional Premature [...] Anterolateral leads Confirmed by MARVIN POMPA M.D ([id number]) on 11/27/2024 1:24:41 PM [facility] 11/25/2024 8:58 PM CDT 11/27/2024 1:24 PM CDT us Treva Andrade MD ECG ORDERABLES Fi nal Result [facility] * [place] Fluoroscopy < 1 Hour (11/25/2024 8:47 PM CDT) Narrative [facility] - 11/25/2024 8:48 PM CDT The images from this study are not interpreted by Radiology. Please refer to the physician's procedure / OR operative note. Milad Rg MD IMG FLUOROSCOPY PROCEDURES Fi nal Result Performing Organization Address [facility] Co de Phone Number [email or web address] * Aerobic culture and gram stain Hardware Heart (11/25/2024 8:28 PM CDT) Direct Specimen Exam Stain: No polymorphonuclear leukocytes seen. No organisms seen. Report Final Report: No growth [facility] Hardware (Heart) 11/25/2024 8:28 PM CDT 11/25/2024 9:40 PM CDT Narrative [facility] - 12/01/2024 12:14 PM CDT LV lead Specimen collected in the operating room. Testing performed by [facility] ([phone]) Specimens submitted from normally sterile body sites will have all bacterial morphotypes identified. Specimens that contain grossly mixed jose and/or are from body sites that are not normally sterile will be examined for Staphylococcus aureus, Pseudomonas aeruginosa, beta-hemolytic strep, vancomycin-resistant Enterococcus and fungus. If any of these are isolated, the organism will be reported. Current interpretive data was last revised on 2016. us Baltazar Manzano MD LAB MICROBIOLOGY - GEN ERAL ORDERABLES Final Result Performing Organization Address [facility] Co de Phone Number [facility] [place] [address] * (ABNORMAL) POC Blood Gas and Chemistries, Arterial - (11/25/2024 8:27 PM CDT) pH, Art POC 7.33(L) 7.35 - 7.45 pCO2, Art POC 40 35 - 45 mmHg [facility] pO2, Art POC 168(H) 83 - 108 mmHg [facility] Na, POC 141 135 - 145 mmol/L [facility] K POC 4.0 3.3 - 4.9 mmol/L [facility] Comment: Interpretive Data Not all point of care methods assess for hemolysis. Confirm with instrument and retest K+ if not consistent with clinical signs and symptoms. Current Interpretive Data was last revised on 2023. Cl, POC 114(H) 97 - 110 mmol/L [facility] Ionized Ca, POC 4.78 4.50 - 5.10 mg/dL [facility] Glucose, POC 83 70 - 199 mg/dL [facility] Lactate POC 0.7 0.7 - 2.0 mmol/L [facility] SO2 (satya) arterial 100(H) 90 - 95 % [facility] Base excess, POC -4.5 mmol/L [facility] HCO3, Art POC 21 20 - 30 mmol/L [facility] Hct, POC 26.0(L) 36.3 - 45.3 % [facility] Total Hb, POC 8.5(L) 11.9 - 15.5 g/dL [facility] Blood 11/25/2024 8:27 PM CDT 11/25/2024 8:27 PM CDT Baltazar Manzano MD LAB POCT ORDERABLES - DEVICE Final Result [facility] [place] [address] * Aerobic culture and gram stain Hardware Heart (11/25/2024 8:17 PM CDT) Direct Specimen Exam Stain: Rare polymorphonuclear leukocytes seen. No organisms seen. Report Final Report: No growth [facility] Hardware (Heart) 11/25/2024 8:17 PM CDT 11/25/2024 9:50 PM CDT Narrative [facility] - 12/01/2024 12:13 PM CDT Ventricular lead right Specimen collected in the operating room. Testing performed by [facility] ([phone]) Specimens submitted from normally sterile body sites [...] OR DERABLES Final Result Performing Organization Address [facility] Co de Phone Number [facility] [employer] ([employer]) [place] [address] * Aerobic culture and gram stain Hardware Heart (11/25/2024 8:13 PM CDT) Direct Specimen Exam Stain: Rare polymorphonuclear leukocytes seen. No organisms seen. Report Final Report: No growth [facility] Hardware (Heart) 11/25/2024 8:13 PM CDT 11/25/2024 9:45 PM CDT Narrative [facility] - 12/01/2024 12:14 PM CDT Atrial lead Specimen collected in the operating room. Testing performed by [facility] ([phone]) Specimens submitted from normally sterile body sites [...] OR DERABLES Final Result Performing Organization Address [facility] Co de Phone Number [facility] [employer] ([employer]) [place] [address] * Aerobic culture and gram stain Hardware Heart (11/25/2024 8:09 PM CDT) Direct Specimen Exam Stain: No polymorphonuclear leukocytes seen. No organisms seen. Report Final Report: No growth [facility] Hardware (Heart) 11/25/2024 8:09 PM CDT 11/25/2024 9:48 PM CDT Narrative [facility] - 12/01/2024 12:13 PM CDT Generator device Specimen collected in the operating room. Testing performed by [facility] ([phone]) Specimens submitted from normally sterile body sites will have all bacterial morphotypes identified. Specimens that contain grossly mixed jose and/or are from body sites that are not normally sterile will be examined for Staphylococcus aureus, Pseudomonas aeruginosa, beta-hemolytic strep, vancomycin-resistant Enterococcus and fungus. If any of these are isolated, the organism will be reported. Current interpretive data was last revised on 2016. us Milad Rg MD LAB MICROBIOLOGY - GENERAL OR DERABLES Final Result [facility] [place] [address] * [place] AN PROCEDURE PLACEHOLDER (11/25/2024 7:42 PM CDT) Anatomical Region Laterality Modality Other Narrative 11/25/2024 7:42 PM CDT Shai Mercado MD PhD 11/26/2024 8:09 AM NEVAEH Date/time: 11/25/2024 7:42 PM Staff: Performed by: Anesthesiologist: Shai Mercado MD PhD Preprocedure checklist: patient identified, procedure contraindications assessed, procedure consent, risks, benefits and alternatives discussed, monitors and equipment checked, timeout performed and NEVAEH probe inserted into esophagus using lubricating jelly General procedure Information: Reason for procedure/indications: hemodynamic monitoring Performed: personally Procedure performed at surgeon's request: yes Results discussed with surgeon: yes Images submitted to archive: yes Patient location: OR Intubated: yes Bite blocked placed: yes Probe Insertion: easy Complications: no Probe type: adult Modalities: 2D imaging, continuous wave Doppler and color Doppler NEVAEH machine number: 4 Billing information: Physician requesting echo: Milad Rg MD CPT code: NEVAEH placement and diagnostic exam, non-congenital (39489) ICD code(s) for medical necessity: R93.1 - Abnormal findings on diagnostic imaging of heart and coronary circulation, I36.1 - Nonrheumatic tricuspid (valve) insufficiency Echocardiographic and doppler measurements: Ventricles: Left ventricle: Cavity size: normal Hypertrophy: No Thrombus: No Global function: normal LVEF%: normal Right ventricle: Cavity size: severely dilated Hypertrophy: no Thrombus: No Global function: normal Interventricular septum: normal Regional function: 1- Basal anteroseptal: normal 2- Basal anterior: normal 3- Basal anterolateral: normal 4- Basal inferolateral: normal 5- Basal inferior: normal 6- Basal inferoseptal: normal 7- Mid anteroseptal: normal 8- Mid anterior: normal 9- Mid anterolateral: normal 10- Mid inferolateral: normal 11- Mid inferior: normal 12- Mid inferoseptal: normal 13- Apical anterior: normal 14- Apical lateral: normal 15- Apical inferior: normal 16- Apical septal: normal 17- Shallowater: normal Valves: Aortic Valve: Annulus: normal Leaflet morphology: mechanical Leaflet motion: normal Stenosis: none Regurgitation: none Peak gradient: 13 mmHg Mean gradient: 7 mmHg Mitral valve: Annulus: normal Leaflet morphology anterior: bioprosthetic Leaflet morphology posterior: bioprosthetic Leaflet motion anterior: normal Leaflet motion posterior: normal Stenosis: none Regurgitation: mild Peak gradient: 6 mmHg Mean gradient: 3 mmHg Tricuspid valve: Annulus: normal Leaflet morphology: normal Leaflet motion: normal Stenosis: none Regurgitation: severe Pulmonic valve: Annulus: normal Stenosis: none Regurgitation: absent Aorta: Ascending aorta: Size: normal Dissection: no Plaque thickness(mm): 0-3 Plaque mobile: no Aortic arch: Size: normal Dissection: no Plaque thickness(mm): 0-3 Plaque mobile: no Descending aorta: Size: normal Dissection: no Plaque thickness(mm): 0-3 Plaque mobile: no Atria: Right atrium: Size: dilated Spontaneous echo contrast: No Thrombus: no Mass: No Left atrium: Size: dilated Spontaneous echo contrast: No Thrombus: no Mass: No Left atrial appendage: normal Interatrial septum: normal Diastolic function and other findings: Diastolic function: grade III dysfunction Pericardium: small effusion Left pleural effusion: small effusion Right pleural effusion: normal Pulmonary venous flow: normal Pre-procedure NEVAEH exam summary: 1. Pacemaker wires noted, one directed to the RA other to the RV, neither with masses attached. 2. Severe central TR. 3. Mitral valve with bioprosthetic ring. Mild MR and no stenosis. 4. 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 No stenosis or insufficiency noted. 5. Small pericardial effusion noted. 6. Small left pleural effusion. 7. Normal DARCI without thrombus. 8. Normal intraatrial septum without PFO. 9. No dissection in thoracic aorta. Postprocedure (follow-up) NEVAEH exam: LV: unchanged and normal systolic function RV: unchanged and normal systolic function Interventricular septum: unchanged Aortic valve: unchanged and mechanical Mitral valve: unchanged, mild MR and bioprosthetic Pulmonic valve: unchanged Tricuspid valve: unchanged and severe TR Atria: unchanged Aorta: unchanged Pericardium: unchanged and small effusion Left pleural: unchanged Right pleural: unchanged Postprocedure (follow-up) NEVAEH exam comments: S/p pacemaker lead extraction and generator removal. Minimal increase in small pericardial effusion. Torrential TR unchanged. Mild MR unchanged. Attestation Statement: By signing this report the attending anesthesiologist certifies that he or she has personally reviewed and interpreted the echocardiogram and has reviewed and or edited and agrees with the written comments contained within the report. us Shai Mercado MD PhD ANESTHESIA ORD ERABLES Edited Result - Final * Peripheral IV Catheter (11/25/2024 7:36 PM CDT) Shai Theodore MD - 11/25/2024 7:36 PM CDT Shai Spencer MD 11/25/2024 7:36 PM Peripheral IV Catheter Patient location: OR Staff: Placed by: Resident: Shai Spencer MD Preprocedure prep: Prep solution: chlorhexadine PPE: provider hat/mask and gloves PIV line: Laterality: right Site: hand Catheter size: 16 g Technique: direct visualization Procedure details: good blood return Number of attempts: 1 Assessment: Events: patient tolerated procedure well with no complications us Shai Mercado MD PhD ANESTHESIA ORD ERABLES Final Result * Airway (11/25/2024 7:35 PM CDT) Narrative Shai Spencer MD - 11/25/2024 7:35 PM CDT Shai Spencer MD 11/25/2024 7:36 PM Airway Patient location: OR Urgency: elective Indications for airway management: anesthesia Difficult airway: no Staff: Placed by: Resident: Shai Spencer MD Emergent airway documentation: Risks and benefits discussed: yes Consent obtained: yes Consent given by: patient Airway prep: Preoxygenated: yes Patient position: sniffing Mask difficulty assessment: 1 - vent by mask Spontaneous ventilation during airway: absent Sedation level during airway: GA Final airway details: Final airway type: endotracheal airway Tube type: ETT ETT size: 7.0 mm Cuffed: yes Technique used for successful ETT placement: video laryngoscopy Devices/Methods used in placement: stylet Insertion site: oral Blade type: Dominga Video blade type: Krause Blade size: 3 Cormack-Lehane (video): grade I - full view of glottis Cuff inflated with: air ETT to lips: 21 cm Placement verified by: auscultation and CO2 detection Airway secured with: silk tape Number of attempts: 1 us Shai Mercado MD PhD ANESTHESIA ORD ERABLES Final Result * NEVAEH Add-On For OR (11/25/2024 6:37 PM CDT) BSA 1.66 m2 [facility] Narrative [facility] - 11/25/2024 6:37 PM CDT Procedure Auto Finalized by Rule: BW CV NEVAEH DURING CASE OR Please see the Anesthesiologist's Procedure Note for the results. us Shai Spencer MD CV ECHO PROCEDURES Mirtha l Result [facility] * Differential, auto (11/25/2024 12:46 PM CDT) Neutrophil abs 2.66 1.50 - 6.50 K/cumm Imm gran abs 0.02 0.00 - 0.10 K/cumm [facility] Lymphocyte abs 0.87 0.80 - 3.30 K/cumm [facility] Monocyte abs 0.27 0.20 - 0.80 K/cumm [facility] Eosinophil abs 0.16 0.00 - 0.50 K/cumm [facility] Basophil abs 0.05 0.00 - 0.10 K/cumm [facility] Neutrophil pct 66.0 % [facility] Comment: Interpretive Data Percent cell count reference ranges are not reported, since discordance with absolute values may lead to misinterpretation of CBC data. Current Interpretive Data was last revised on 2017. Imm gran pct 0.5 % [facility] Comment: Interpretive Data Percent cell count reference ranges are not reported, since discordance with absolute values may lead to misinterpretation of CBC data. Current Interpretive Data was last revised on 2017. Lymphocyte pct 21.6 % [facility] Comment: Interpretive Data Percent cell count reference ranges are not reported, since discordance with absolute values may lead to misinterpretation of CBC data. Current Interpretive Data was last revised on 2017. Monocyte pct 6.7 % [facility] Comment: Interpretive Data Percent cell count reference ranges are not reported, since discordance with absolute values may lead to misinterpretation of CBC data. Current Interpretive Data was last revised on 2017. Eosinophil pct 4.0 % [facility] Comment: Interpretive Data Percent cell count reference ranges are not reported, since discordance with absolute values may lead to misinterpretation of CBC data. Current Interpretive Data was last revised on 2017. Basophil pct 1.2 % [facility] Comment: Interpretive Data Percent cell count reference ranges are not reported, since discordance with absolute values may lead to misinterpretation of CBC data. Current Interpretive Data was last revised on 2017. Blood 11/25/2024 12:4 6 PM CDT 11/25/2024 1:15 PM CDT us Baltazar Manzano MD LAB BLOOD ORDERABLES F inal Result [facility] [place] [address] * (ABNORMAL) CBC with auto differential (11/25/2024 12:46 PM CDT) [facility] WBC 4.03 3.80 - 9.90 K/cumm Hgb 8.3(L) 11.9 - 15.5 g/dL [facility] Hct 26.0(L) 35.6 - 45.5 % [facility] Plt 136(L) 150 - 400 K/cumm [facility] MPV 11.0 9.1 - 12.3 fL [facility] RBC 3.01(L) 3.90 - 5.20 M/cumm [facility] MCV 86.4 81.3 - 96.4 fL [facility] MCH 27.6 27.1 - 33.3 pg [facility] MCHC 31.9(L) 32.3 - 35.7 g/dL [facility] RDW CV 16.4(H) 11.1 - 14.9 % [facility] RDW SD 50.4(H) 35.7 - 48.1 fL [facility] NRBC abs 0.00 0.00 - 0.01 K/cumm [facility] Blood 11/25/2024 12:4 6 PM CDT 11/25/2024 1:15 PM CDT Baltazar Manzano MD LAB BLOOD ORDERABLES F inal Result Performing Organization Address City/[facility]/ZIP Co de Phone Number [facility] [employer] [place] [address] * Transfuse RBC (11/25/2024 12:15 PM CDT) Blood Baltazar Manzano MD BLOOD TRANSFUSION ORDE RABLES Final Result Performing Organization Address City/[facility]/ZIP Co de Phone Number [facility] [email or web address] [place] [address] * (ABNORMAL) HIT Antibodies with Reflex to Serotonin Release Assay (MELODY) (11/25/2024 8:09 AM CDT) [facility] HIT antibodies Positive HIT Ab EDNA Units 2.85(H) 0.00 - 0.99 units/mL [facility] Comment: A positive HIT Ab (heparin PF4 [...] 8:09 AM CDT 11/25/2024 8:22 AM CDT us Baltazar Manzano MD LAB BLOOD ORDERABLES F inal Result [facility] [place] [address] * Serotonin release assay (11/25/2024 8:09 AM CDT) MELODY low dose heparin 2 % MELODY high dose heparin 2 % [facility] MELODY Negative [facility] MELODY interpretation A positive result requires release [...] developed and its performance characteristics determined by [facility]. It has not been cleared or approved by the [place] Food and Drug Administration. This test is used for clinical purposes. It should not be regarded as investigational or for research. This laboratory is certified under the Clinical Laboratory Improvement Amendments (CLIA) as qualified to perform high complexity clinical laboratory testing. [facility] Comment:Performed by: [employer]. [address] [place] [id number] Blood 11/25/2024 8:09 AM CDT 11/25/2024 8:22 AM CDT Narrative [facility] - 11/28/2024 3:40 PM CDT HIT antibody screen positive. Confirmatory testing by Serotonin Release sent to [facility]. Baltazar Manzano MD LAB BLOOD ORDERABLES F inal Result Performing Organization Address [facility] Co de Phone Number [facility] [employer] [place] [address] * (ABNORMAL) aPTT (11/25/2024 8:09 AM CDT) [facility] aPTT 92(H) 28 - 38 sec Comment: Interpretive Data Heparin therapeutic range: 66.0 - 100.0 seconds. Range based on correlation with therapeutic heparin activity range of 0.3 - 0.7 Units/mL. Current interpretive data was last revised on 2023. Blood 11/25/2024 8:09 AM CDT 11/25/2024 8:23 AM CDT Narrative [facility] - 11/25/2024 8:52 AM CDT STAT PTT [...] ORDERABLES Final R esult Performing Organization Address [facility]/ZIP Co de Phone Number [facility] [place] [address] * (ABNORMAL) eGFR (11/24/2024 9:19 PM CDT) Pathologist [facility] eGFR 42(L) >=60 mL/min/1. 73 m2 Comment: [...] 9:19 PM CDT 11/24/2024 10:40 PM CDT us Baltazar Manzano MD LAB BLOOD ORDERABLES F inal Result [facility] [place] [address] * Differential, auto (11/24/2024 9:19 PM CDT) [facility] Neutrophil abs 2.81 1.50 - 6.50 K/cumm Imm gran abs 0.01 0.00 - 0.10 K/cumm [facility] Lymphocyte abs 1.04 0.80 - 3.30 K/cumm [facility] Monocyte abs 0.34 0.20 - 0.80 K/cumm [facility] Eosinophil abs 0.14 0.00 - 0.50 K/cumm [facility] Basophil abs 0.04 0.00 - 0.10 K/cumm [facility] Neutrophil pct 64.2 % [facility] Comment: Interpretive Data Percent cell count reference ranges are not reported, since discordance with absolute values may lead to misinterpretation of CBC data. Current Interpretive Data was last revised on 2017. Imm gran pct 0.2 % [facility] Comment: Interpretive Data Percent cell count reference ranges are not reported, since discordance with absolute values may lead to misinterpretation of CBC data. Current Interpretive Data was last revised on 2017. Lymphocyte pct 23.7 % [facility] Comment: Interpretive Data Percent cell count reference ranges are not reported, since discordance with absolute values may lead to misinterpretation of CBC data. Current Interpretive Data was last revised on 2017. Monocyte pct 7.8 % [facility] Comment: Interpretive Data Percent cell count reference ranges are not reported, since discordance with absolute values may lead to misinterpretation of CBC data. Current Interpretive Data was last revised on 2017. Eosinophil pct 3.2 % [facility] Comment: Interpretive Data Percent cell count reference ranges are not reported, since discordance with absolute values may lead to misinterpretation of CBC data. Current Interpretive Data was last revised on 2017. Basophil pct 0.9 % [facility] Comment: Interpretive Data Percent cell count reference ranges are not reported, since discordance with absolute values may lead to misinterpretation of CBC data. Current Interpretive Data was last revised on 2017. Blood 11/24/2024 9:19 PM CDT 11/24/2024 10:42 PM CDT us Baltazar Manzano MD LAB BLOOD ORDERABLES F inal Result [facility] Department of Laboratories [place], [place] [id number] * (ABNORMAL) CBC with auto differential (11/24/2024 9:19 PM CDT) WBC 4.38 3.80 - 9.90 K/cumm Hgb 6.6(L) 11.9 - 15.5 g/dL [facility] Hct 21.7(L) 35.6 - 45.5 % [facility] Plt 142(L) 150 - 400 K/cumm [facility] MPV 11.4 9.1 - 12.3 fL [facility] RBC 2.46(L) 3.90 - 5.20 M/cumm [facility] MCV 88.2 81.3 - 96.4 fL [facility] MCH 26.8(L) 27.1 - 33.3 pg [facility] MCHC 30.4(L) 32.3 - 35.7 g/dL [facility] RDW CV 16.4(H) 11.1 - 14.9 % [facility] RDW SD 52.0(H) 35.7 - 48.1 fL [facility] NRBC abs 0.00 0.00 - 0.01 K/cumm [facility] Blood 11/24/2024 9:19 PM CDT 11/24/2024 10:42 PM CDT Baltazar Manzano MD LAB BLOOD ORDERABLES F inal Result Performing Organization Address [facility] Co de Phone Number [facility] [employer] [place] [address] * (ABNORMAL) aPTT (11/24/2024 9:19 PM CDT) [facility] aPTT 63(H) 28 - 38 sec Comment: Interpretive Data Heparin therapeutic range: 66.0 - 100.0 seconds. Range based on correlation with therapeutic heparin activity range of 0.3 - 0.7 Units/mL. Current interpretive data was last revised on 2023. Blood 11/24/2024 9:19 PM CDT 11/24/2024 10:43 PM CDT Baltazar Manzano MD LAB BLOOD ORDERABLES F inal Result Performing Organization Address City/[facility]/ZIP Co de Phone Number [facility] [place] [employer] [place] [address] * (ABNORMAL) Protime-INR (11/24/2024 9:19 PM CDT) [facility] PT 13.5(H) 9.7 - 13.0 sec INR 1.24(H) 0.90 - 1.20 [facility] Comment: Interpretive data Oral anticoagulant [...] ORDERABLES Final Resu lt Performing Organization Address City/[facility]/ZIP Co de Phone Number [facility] [employer] [place] [address] * Magnesium (11/24/2024 9:19 PM CDT) [facility] Magnesium 2.1 1.4 - 2.5 mg/dL Blood 11/24/2024 9:19 PM CDT 11/24/2024 10:40 PM CDT Baltazar Manzano MD LAB BLOOD ORDERABLES F inal Result Performing Organization Address City/[facility]/ZIP Co de Phone Number [facility] [place] [address] * (ABNORMAL) Basic metabolic panel (11/24/2024 9:19 PM CDT) [facility] Sodium 141 135 - 145 mmol/L Potassium, pl 3.6 3.3 - 4.9 mmol/L [facility] Chloride 106 97 - 110 mmol/L [facility] CO2 26 22 - 32 mmol/L [facility] Anion gap 9 2 - 15 mmol/L [facility] BUN 13 6 - 25 mg/dL [facility] Creatinine 1.38(H) 0.60 - 1.10 mg/dL [facility] Glucose 112 70 - 199 mg/dL [facility] Comment: Interpretive Data Fasting glucose >/= 126 [...] 2022. Calcium 8.5 8.5 - 10.3 mg/dL [facility] Blood 11/24/2024 9:19 PM CDT 11/24/2024 10:40 PM CDT Baltazar Manzano MD LAB BLOOD ORDERABLES F inal Result Performing Organization Address City/[facility]/ZIP Co de Phone Number [facility] [place] [address] * Check Sample (11/24/2024 12:21 PM CDT) ABO Rh A Positive [facility] OTHER 11/24/2024 12:2 1 PM CDT 11/24/2024 12:58 PM CDT Baltazar Manzano MD LAB BLOOD ORDERABLES F inal Result Performing Organization Address City/[facility] Co de Phone Number [facility] [employer] [place] [address] [facility] * Type and screen (11/24/2024 10:53 AM CDT) ABO Rh A Positive Man, indirect Negative [facility] Blood 11/24/2024 10:5 3 AM CDT 11/24/2024 11:05 AM CDT Narrative [facility] - 11/24/2024 11:55 AM CDT Has the patient had Daratumumab or Isatuximab in the past 6 months?->Unknown Baltazar Manzano MD LAB BLOOD BANK TEST OR DERABLES Final Result Performing Organization Address [facility] [place] [address] * Prepare RBC: 1 Units (11/24/2024 10:20 AM CDT) Product code [id number] Unit Number [id number] Q [facility] Product Blood Type ANEG [facility] Dispense Status PRESUMED TRANSFUSED [facility] Blood 11/24/2024 10:2 0 AM CDT 11/24/2024 10:19 AM CDT Narrative [facility] - 11/26/2024 12:56 AM CDT Specify Procedure:->pacemaker removal and HB 7.2, patinet on heparin drip Are special requirements needed? (All products are leukoreduced and CMV- safe)- >No Date required:-[id number] LRRBC # of [id number] Reasons:-Hold for procedure (specify procedure)} Baltazar Manzano MD BLOOD BANK PRODUCT ORD ERABLES Final Result Performing Organization Address [facility]/[place]UST de Phone Number [facility] [place] [address] * (ABNORMAL) eGFR (11/23/2024 9:58 PM CDT) [...] 9:58 PM CDT 11/23/2024 10:26 PM CDT us Baltazar Manzano MD LAB BLOOD ORDERABLES F inal Result [facility] [place] [address] * Differential, auto (11/23/2024 9:58 PM CDT) Neutrophil abs 3.71 1.50 - 6.50 K/cumm Imm gran abs 0.01 0.00 - 0.10 K/cumm [facility] Lymphocyte abs 1.20 0.80 - 3.30 K/cumm [facility] Monocyte abs 0.35 0.20 - 0.80 K/cumm [facility] Eosinophil abs 0.19 0.00 - 0.50 K/cumm [facility] Basophil abs 0.04 0.00 - 0.10 K/cumm [facility] Neutrophil pct 67.4 % [facility] Comment: Interpretive Data Percent cell count reference ranges are not reported, since discordance with absolute values may lead to misinterpretation of CBC data. Current Interpretive Data was last revised on 2017. Imm gran pct 0.2 % [facility] Comment: Interpretive Data Percent cell count reference ranges are not reported, since discordance with absolute values may lead to misinterpretation of CBC data. Current Interpretive Data was last revised on 2017. Lymphocyte pct 21.8 % [facility] Comment: Interpretive Data Percent cell count reference ranges are not reported, since discordance with absolute values may lead to misinterpretation of CBC data. Current Interpretive Data was last revised on 2017. Monocyte pct 6.4 % [facility] Comment: Interpretive Data Percent cell count reference ranges are not reported, since discordance with absolute values may lead to misinterpretation of CBC data. Current Interpretive Data was last revised on 2017. Eosinophil pct 3.5 % [facility] Comment: Interpretive Data Percent cell count reference ranges are not reported, since discordance with absolute values may lead to misinterpretation of CBC data. Current Interpretive Data was last revised on 2017. Basophil pct 0.7 % [facility] Comment: Interpretive Data Percent cell count reference ranges are not reported, since discordance with absolute values may lead to misinterpretation of CBC data. Current Interpretive Data was last revised on 2017. Blood 11/23/2024 9:58 PM CDT 11/23/2024 10:25 PM CDT Baltazar Manzano MD LAB BLOOD ORDERABLES F inal Result [facility] [place] [address] * Heparin anti factor Xa activity (11/23/2024 9:58 PM CDT) [facility] Anti Factor Xa 0.50 IUnits/mL Comment: [...] 9:58 PM CDT 11/23/2024 10:20 PM CDT us Marilu Kirkland NP LAB BLOOD ORDERABL ES Final Result Performing Organization Address [facility]/ZIP Co de Phone Number [facility] [place] [address] * (ABNORMAL) CBC with auto differential (11/23/2024 9:58 PM CDT) Pathologist [facility] WBC 5.50 3.80 - 9.90 K/cumm Hgb 7.2(L) 11.9 - 15.5 g/dL [facility] Hct 23.5(L) 35.6 - 45.5 % [facility] Plt 170 150 - 400 K/cumm [facility] MPV 11.6 9.1 - 12.3 fL [facility] RBC 2.67(L) 3.90 - 5.20 M/cumm [facility] MCV 88.0 81.3 - 96.4 fL [facility] MCH 27.0(L) 27.1 - 33.3 pg [facility] MCHC 30.6(L) 32.3 - 35.7 g/dL [facility] RDW CV 16.1(H) 11.1 - 14.9 % [facility] RDW SD 50.2(H) 35.7 - 48.1 fL [facility] NRBC abs 0.00 0.00 - 0.01 K/cumm [facility] Blood 11/23/2024 9:58 PM CDT 11/23/2024 10:25 PM CDT us Baltazar Manzano MD LAB BLOOD ORDERABLES F inal Result Performing Organization Address City/[facility]/ZIP Co de Phone Number [facility] [place] [address] * (ABNORMAL) aPTT (11/23/2024 9:58 PM CDT) aPTT 73(H) 28 - 38 sec Comment: Interpretive Data Heparin therapeutic range: 66.0 - 100.0 seconds. Range based on correlation with therapeutic heparin activity range of 0.3 - 0.7 Units/mL. Current interpretive data was last revised on 2023. Blood 11/23/2024 9:58 PM CDT 11/23/2024 10:20 PM CDT Baltazar Manzano MD LAB BLOOD ORDERABLES F inal Result Performing Organization Address [facility]/[place] [address] * (ABNORMAL) Protime-INR (11/23/2024 9:58 PM CDT) PT 13.5(H) 9.7 - 13.0 sec INR 1.24(H) 0.90 - 1.20 [facility] Comment: Interpretive data Oral anticoagulant [...] ORDERABLES F inal Result Performing Organization Address [facility]/[place] de Phone Number [facility] [employer] [place] [address] * Magnesium (11/23/2024 9:58 PM CDT) Magnesium 2.2 1.4 - 2.5 mg/dL Blood 11/23/2024 9:58 PM CDT 11/23/2024 10:26 PM CDT Baltazar Manzano MD LAB BLOOD ORDERABLES F inal Result Performing Organization Address [facility]/ZIP Co de Phone Number [facility] [place] [address] * (ABNORMAL) Basic metabolic panel (11/23/2024 9:58 PM CDT) [facility] Sodium 141 135 - 145 mmol/L Potassium, pl 4.0 3.3 - 4.9 mmol/L [facility] Chloride 106 97 - 110 mmol/L [facility] CO2 25 22 - 32 mmol/L [facility] Anion gap 10 2 - 15 mmol/L [facility] BUN 13 6 - 25 mg/dL [facility] Creatinine 1.56(H) 0.60 - 1.10 mg/dL [facility] Glucose 98 70 - 199 mg/dL [facility] Comment: Interpretive Data Fasting glucose >/= 126 [...] 2022. Calcium 8.9 8.5 - 10.3 mg/dL [facility] Blood 11/23/2024 9:58 PM CDT 11/23/2024 10:26 PM CDT Baltazar Manzano MD LAB BLOOD ORDERABLES F inal Result Performing Organization Address [facility] Co de Phone Number [facility] [place] [address] * (ABNORMAL) aPTT (11/22/2024 11:04 PM CDT) aPTT 80(H) 28 - 38 sec Comment: Interpretive Data Heparin therapeutic range: 66.0 - 100.0 seconds. Range based on correlation with therapeutic heparin activity range of 0.3 - 0.7 Units/mL. Current interpretive data was last revised on 2023. Blood 11/22/2024 11:0 4 PM CDT 11/22/2024 11:14 PM CDT Narrative [facility] - 11/23/2024 12:02 AM CDT STAT PTT [...] MD LAB BLOOD ORDERABLES Final R esult [facility] [place] [address] * Protime-INR (11/22/2024 11:04 PM CDT) PT 12.9 9.7 - 13.0 sec INR 1.19 0.90 - 1.20 [facility] Comment: Interpretive data Oral anticoagulant [...] ORDERABLES F inal Result Performing Organization Address [facility] de Phone Number [facility] [place] [address] * (ABNORMAL) aPTT (11/21/2024 10:51 PM CDT) aPTT 78(H) 28 - 38 sec Comment: Interpretive Data Heparin therapeutic range: 66.0 - 100.0 seconds. Range based on correlation with therapeutic heparin activity range of 0.3 - 0.7 Units/mL. Current interpretive data was last revised on 2023. Blood 11/21/2024 10:5 1 PM CDT 11/21/2024 11:46 PM CDT Kandis Spencer MD LAB BLOOD ORDERABLES Final Resu lt Performing Organization Address [facility] de Phone Number [facility] [place] [address] * (ABNORMAL) Protime-INR (11/21/2024 10:51 PM CDT) PT 13.5(H) 9.7 - 13.0 sec INR 1.24(H) 0.90 - 1.20 [facility] Comment: Interpretive data Oral anticoagulant therapeutic ranges: Venous thromboembolism prophylaxis or treatment: 2.0-3.0 CARDIOLOGY Standard range: 2.0-3.0 High-intensity range: 2.5-3.5 Refer to indication-specific guidelines for appropriate target ranges for prosthetic heart valve replacement. Current interpretive data was last revised on 2019. Blood 11/21/2024 10:5 1 PM CDT 11/21/2024 11:29 PM CDT Kandis Spencer MD LAB BLOOD ORDERABLES Final Resu lt Performing Organization Address [facility]/ZIP Co de Phone Number [facility] [place] [address] * (ABNORMAL) eGFR (11/20/2024 8:45 PM CDT) [...] ORDERABLES Final Resu lt Performing Organization Address [facility]/ZIP Co de Phone Number [facility] [place] [address] * Differential, auto (11/20/2024 8:45 PM CDT) Neutrophil abs 2.97 1.50 - 6.50 K/cumm Imm gran abs 0.04 0.00 - 0.10 K/cumm [facility] Lymphocyte abs 1.02 0.80 - 3.30 K/cumm [facility] Monocyte abs 0.33 0.20 - 0.80 K/cumm [facility] Eosinophil abs 0.17 0.00 - 0.50 K/cumm [facility] Basophil abs 0.03 0.00 - 0.10 K/cumm [facility] Neutrophil pct 65.1 % [facility] Comment: Interpretive Data Percent cell count reference ranges are not reported, since discordance with absolute values may lead to misinterpretation of CBC data. Current Interpretive Data was last revised on 2017. Imm gran pct 0.9 % [facility] Comment: Interpretive Data Percent cell count reference ranges are not reported, since discordance with absolute values may lead to misinterpretation of CBC data. Current Interpretive Data was last revised on 2017. Lymphocyte pct 22.4 % [facility] Comment: Interpretive Data Percent cell count reference ranges are not reported, since discordance with absolute values may lead to misinterpretation of CBC data. Current Interpretive Data was last revised on 2017. Monocyte pct 7.2 % [facility] Comment: Interpretive Data Percent cell count reference ranges are not reported, since discordance with absolute values may lead to misinterpretation of CBC data. Current Interpretive Data was last revised on 2017. Eosinophil pct 3.7 % [facility] Comment: Interpretive Data Percent cell count reference ranges are not reported, since discordance with absolute values may lead to misinterpretation of CBC data. Current Interpretive Data was last revised on 2017. Basophil pct 0.7 % [facility] Comment: Interpretive Data Percent cell count reference ranges are not reported, since discordance with absolute values may lead to misinterpretation of CBC data. Current Interpretive Data was last revised on 2017. Blood 11/20/2024 8:45 PM CDT 11/20/2024 9:11 PM CDT us Kandis Spencer MD LAB BLOOD ORDERABLES Final Resu lt [facility] [place] [address] * (ABNORMAL) CBC with auto differential (11/20/2024 8:45 PM CDT) WBC 4.56 3.80 - 9.90 K/cumm Hgb 7.5(L) 11.9 - 15.5 g/dL [facility] Hct 24.4(L) 35.6 - 45.5 % [facility] Plt 151 150 - 400 K/cumm [facility] MPV 11.1 9.1 - 12.3 fL [facility] RBC 2.78(L) 3.90 - 5.20 M/cumm [facility] MCV 87.8 81.3 - 96.4 fL [facility] MCH 27.0(L) 27.1 - 33.3 pg [facility] MCHC 30.7(L) 32.3 - 35.7 g/dL [facility] RDW CV 15.5(H) 11.1 - 14.9 % [facility] RDW SD 48.6(H) 35.7 - 48.1 fL [facility] NRBC abs 0.00 0.00 - 0.01 K/cumm [facility] Blood 11/20/2024 8:45 PM CDT 11/20/2024 9:11 PM CDT us Kandis Spencer MD LAB BLOOD ORDERABLES Final Resu lt [facility] [place] [address] * (ABNORMAL) aPTT (11/20/2024 8:45 PM CDT) Pathologist [facility] aPTT 76(H) 28 - 38 sec Comment: Interpretive Data Heparin therapeutic range: 66.0 - 100.0 seconds. Range based on correlation with therapeutic heparin activity range of 0.3 - 0.7 Units/mL. Current interpretive data was last revised on 2023. Blood 11/20/2024 8:45 PM CDT 11/20/2024 9:08 PM CDT Narrative [facility] - 11/20/2024 9:25 PM CDT STAT PTT [...] must be drawn peripherally (not from CVC). Ranulfo Gentile MD LAB BLOOD ORDERABLES Final R esult Performing Organization Address City/[facility]/ZIP Co de Phone Number [facility] [email or web address] [place] [address] * (ABNORMAL) Protime-INR (11/20/2024 8:45 PM CDT) PT 14.0(H) 9.7 - 13.0 sec INR 1.29(H) 0.90 - 1.20 [facility] Comment: Interpretive data Oral anticoagulant therapeutic ranges: Venous thromboembolism prophylaxis or treatment: 2.0-3.0 CARDIOLOGY Standard range: 2.0-3.0 High-intensity range: 2.5-3.5 Refer to indication-specific guidelines for appropriate target ranges for prosthetic heart valve replacement. Current interpretive data was last revised on 2019. Blood 11/20/2024 8:45 PM CDT 11/20/2024 9:08 PM CDT Baltazar Manzano MD LAB BLOOD ORDERABLES F inal Result [facility] [email or web address] [address] * Magnesium (11/20/2024 8:45 PM CDT) Magnesium 2.1 1.4 - 2.5 mg/dL Blood 11/20/2024 8:45 PM CDT 11/20/2024 9:11 PM CDT us Ranulfo Gentile MD LAB BLOOD ORDERABLES Final R esult Performing Organization Address City/[facility]/ZIP Co de Phone Number [facility] [place] [address] * (ABNORMAL) Basic metabolic panel (11/20/2024 8:45 PM CDT) Pathologist [facility] Sodium 139 135 - 145 mmol/L Potassium, pl 3.8 3.3 - 4.9 mmol/L [facility] Chloride 106 97 - 110 mmol/L [facility] CO2 26 22 - 32 mmol/L [facility] Anion gap 7 2 - 15 mmol/L [facility] BUN 9 6 - 25 mg/dL [facility] Creatinine 1.31(H) 0.60 - 1.10 mg/dL [facility] Glucose 96 70 - 199 mg/dL [facility] Comment: Interpretive Data Fasting glucose >/= 126 [...] 2022. Calcium 8.8 8.5 - 10.3 mg/dL [facility] Blood 11/20/2024 8:45 PM CDT 11/20/2024 9:11 PM CDT us Kandis Spencer MD LAB BLOOD ORDERABLES Final Resu lt Performing Organization Address [facility]/ZIP Co de Phone Number [facility] [place] [address] * (ABNORMAL) eGFR (11/19/2024 8:49 PM CDT) Pathologist [facility] eGFR 46(L) >=60 mL/min/1. 73 m2 Comment: [...] MD LAB BLOOD ORDERABLES Final Resu lt [facility] [place] [address] * Differential, auto (11/19/2024 8:49 PM CDT) [facility] Neutrophil abs 4.17 1.50 - 6.50 K/cumm Imm gran abs 0.02 0.00 - 0.10 K/cumm [facility] Lymphocyte abs 1.03 0.80 - 3.30 K/cumm [facility] Monocyte abs 0.41 0.20 - 0.80 K/cumm [facility] Eosinophil abs 0.17 0.00 - 0.50 K/cumm [facility] Basophil abs 0.04 0.00 - 0.10 K/cumm [facility] Neutrophil pct 71.5 % [facility] Comment: Interpretive Data Percent cell count reference ranges are not reported, since discordance with absolute values may lead to misinterpretation of CBC data. Current Interpretive Data was last revised on 2017. Imm gran pct 0.3 % [facility] Comment: Interpretive Data Percent cell count reference ranges are not reported, since discordance with absolute values may lead to misinterpretation of CBC data. Current Interpretive Data was last revised on 2017. Lymphocyte pct 17.6 % [facility] Comment: Interpretive Data Percent cell count reference ranges are not reported, since discordance with absolute values may lead to misinterpretation of CBC data. Current Interpretive Data was last revised on 2017. Monocyte pct 7.0 % [facility] Comment: Interpretive Data Percent cell count reference ranges are not reported, since discordance with absolute values may lead to misinterpretation of CBC data. Current Interpretive Data was last revised on 2017. Eosinophil pct 2.9 % [facility] Comment: Interpretive Data Percent cell count reference ranges are not reported, since discordance with absolute values may lead to misinterpretation of CBC data. Current Interpretive Data was last revised on 2017. Basophil pct 0.7 % [facility] Comment: Interpretive Data Percent cell count reference ranges are not reported, since discordance with absolute values may lead to misinterpretation of CBC data. Current Interpretive Data was last revised on 2017. Blood 11/19/2024 8:49 PM CDT 11/19/2024 9:44 PM CDT us Kandis Spencer MD LAB BLOOD ORDERABLES Final Resu lt [facility] [place] [address] * (ABNORMAL) CBC with auto differential (11/19/2024 8:49 PM CDT) WBC 5.84 3.80 - 9.90 K/cumm Hgb 7.7(L) 11.9 - 15.5 g/dL [facility] Hct 24.9(L) 35.6 - 45.5 % [facility] Plt 170 150 - 400 K/cumm [facility] MPV 11.3 9.1 - 12.3 fL [facility] RBC 2.88(L) 3.90 - 5.20 M/cumm [facility] MCV 86.5 81.3 - 96.4 fL [facility] MCH 26.7(L) 27.1 - 33.3 pg [facility] MCHC 30.9(L) 32.3 - 35.7 g/dL [facility] RDW CV 15.1(H) 11.1 - 14.9 % [facility] RDW SD 47.3 35.7 - 48.1 fL [facility] NRBC abs 0.00 0.00 - 0.01 K/cumm [facility] Blood 11/19/2024 8:49 PM CDT 11/19/2024 9:44 PM CDT us Kandis Spencer MD LAB BLOOD ORDERABLES Final Resu lt Performing Organization Address [facility] de Phone Number [facility] Department [place] [employer] [place] [address] * (ABNORMAL) aPTT (11/19/2024 8:49 PM CDT) [...] ORDERABLES F inal Result Performing Organization Address [facility] Co de Phone Number [facility] Department [place] [employer] [place] [address] * (ABNORMAL) Protime-INR (11/19/2024 8:49 PM CDT) PT 14.1(H) 9.7 - 13.0 sec INR 1.30(H) 0.90 - 1.20 [facility] Comment: Interpretive data Oral anticoagulant therapeutic ranges: Venous thromboembolism prophylaxis or treatment: 2.0-3.0 CARDIOLOGY Standard range: 2.0-3.0 High-intensity range: 2.5-3.5 Refer to indication-specific guidelines for appropriate target ranges for prosthetic heart valve replacement. Current interpretive data was last revised on 2019. Blood 11/19/2024 8:49 PM CDT 11/19/2024 9:47 PM CDT Kandis Spencer MD LAB BLOOD ORDERABLES Final Resu lt Performing Organization Address City/[facility]/ZIP Co de Phone Number [facility] [place] [employer] [place] [address] * Magnesium (11/19/2024 8:49 PM CDT) Pathologist [facility] Magnesium 2.3 1.4 - 2.5 mg/dL Blood 11/19/2024 8:49 PM CDT 11/19/2024 9:44 PM CDT us Ranulfo Gentile MD LAB BLOOD ORDERABLES Final R esult Performing Organization Address [facility] Co de Phone Number [facility] [place] [employer] [place] [address] * (ABNORMAL) Hepatic function panel (11/19/2024 8:49 PM CDT) Bilirubin, total <0.2 0.1 - 1.2 mg/dL Comment:Reviewed Bilirubin, direct <0.2 0.1 - 0.3 mg/dL [facility] Protein, pl 7.3 6.5 - 8.5 g/dL [facility] Albumin 2.9(L) 3.5 - 5.0 g/dL [facility] Alk phos 88 40 - 130 Units/L [facility] ALT 23 7 - 45 Units/L [facility] AST 34 10 - 45 Units/L [facility] Blood 11/19/2024 8:49 PM CDT 11/19/2024 9:44 PM CDT us Baltazar Manzano MD LAB BLOOD ORDERABLES F inal Result Performing Organization Address [facility]/ZIP Co de Phone Number [facility] [place] [address] * (ABNORMAL) Basic metabolic panel (11/19/2024 8:49 PM CDT) [facility] Sodium 140 135 - 145 mmol/L Potassium, pl 3.8 3.3 - 4.9 mmol/L [facility] Chloride 105 97 - 110 mmol/L [facility] CO2 26 22 - 32 mmol/L [facility] Anion gap 9 2 - 15 mmol/L [facility] BUN 12 6 - 25 mg/dL [facility] Creatinine 1.27(H) 0.60 - 1.10 mg/dL [facility] Glucose 89 70 - 199 mg/dL [facility] Comment: Interpretive Data Fasting glucose >/= 126 [...] 2022. Calcium 9.1 8.5 - 10.3 mg/dL [facility] Blood 11/19/2024 8:49 PM CDT 11/19/2024 9:44 PM CDT us Kandis Spencer MD LAB BLOOD ORDERABLES Final Resu lt Performing Organization Address [facility]/ZIP Co de Phone Number [facility] [place] [employer] [place] [address] * TRANSESOPHAGEAL ECHO (NEVAEH) W DOPPLER/CF WO CONTRAST (11/19/2024 1:42 PM CDT) Anatomical Region Laterality Modality Echocardiography 11/19/2024 12:5 0 PM CDT Narrative 11/20/2024 9:56 AM CDT [facility] [place] [address] Transesophageal Echocardiographic Report Patient Name: KENDAL CISNEROS J : 1955 (69y 10m) Gender: F Study Date: 11/19/2024 12:50:50 PM Ht(Inch): Wt(LB): BSA: Client Program Manager: Location: [id number] Order Provider: KANDIS SPENCER BMI: Ref.Provider: KANDIS SPENCER Procedures: Transesophageal Echo Report: Echocardiography, transesophageal, real-time with image documentation (2D) including probe placement, image acquisition, interpretation, and report; Doppler echocardiography, limited pulsed wave and/or continuous wave with spectral display; Doppler echocardiography color flow velocity mapping. Performing Physician: Performed by Palmer Deluca & Calvin Benjamin NEVAEH probe placed by Calvin Benjamin [...] Procedure Note Palmer Deluca MD - 11/20/2024 [facility] [place] [address] Transesophageal Echocardiographic Report Patient Name: KENDAL CISNEROS J : 1955 (69y 10m) Gender: F Study Date: 11/19/2024 12:50:50 PM Ht(Inch): Wt(LB): BSA: Client Program Manager: Location: [id number] Order Provider: KANDIS SPENCER BMI: Ref.Provider: KANDIS [...] By: Palmer Deluca MD 2024-11-20 09:55:38 CDT us Kandis Spencer MD CV ECHO PROCEDURES Final [...] MD LAB BLOOD ORDERABLES Final Resu lt [facility] [place] [address] * Differential, auto (11/18/2024 6:01 PM CDT) [facility] Neutrophil abs 3.19 1.50 - 6.50 K/cumm Imm gran abs 0.02 0.00 - 0.10 K/cumm [facility] Lymphocyte abs 0.96 0.80 - 3.30 K/cumm [facility] Monocyte abs 0.33 0.20 - 0.80 K/cumm [facility] Eosinophil abs 0.17 0.00 - 0.50 K/cumm [facility] Basophil abs 0.04 0.00 - 0.10 K/cumm [facility] Neutrophil pct 67.8 % [facility] Comment: Interpretive Data Percent cell count reference ranges are not reported, since discordance with absolute values may lead to misinterpretation of CBC data. Current Interpretive Data was last revised on 2017. Imm gran pct 0.4 % [facility] Comment: Interpretive Data Percent cell count reference ranges are not reported, since discordance with absolute values may lead to misinterpretation of CBC data. Current Interpretive Data was last revised on 2017. Lymphocyte pct 20.4 % [facility] Comment: Interpretive Data Percent cell count reference ranges are not reported, since discordance with absolute values may lead to misinterpretation of CBC data. Current Interpretive Data was last revised on 2017. Monocyte pct 7.0 % [facility] Comment: Interpretive Data Percent cell count reference ranges are not reported, since discordance with absolute values may lead to misinterpretation of CBC data. Current Interpretive Data was last revised on 2017. Eosinophil pct 3.6 % [facility] Comment: Interpretive Data Percent cell count reference ranges are not reported, since discordance with absolute values may lead to misinterpretation of CBC data. Current Interpretive Data was last revised on 2017. Basophil pct 0.8 % [facility] Comment: Interpretive Data Percent cell count reference ranges are not reported, since discordance with absolute values may lead to misinterpretation of CBC data. Current Interpretive Data was last revised on 2017. Blood 11/18/2024 6:01 PM CDT 11/18/2024 6:24 PM CDT us Kandis Spencer MD LAB BLOOD ORDERABLES Final Resu lt [facility] [place] [address] * (ABNORMAL) CBC with auto differential (11/18/2024 6:01 PM CDT) WBC 4.71 3.80 - 9.90 K/cumm Hgb 7.8(L) 11.9 - 15.5 g/dL [facility] Hct 25.1(L) 35.6 - 45.5 % [facility] Plt 166 150 - 400 K/cumm [facility] MPV 11.1 9.1 - 12.3 fL [facility] RBC 2.90(L) 3.90 - 5.20 M/cumm [facility] MCV 86.6 81.3 - 96.4 fL [facility] MCH 26.9(L) 27.1 - 33.3 pg [facility] MCHC 31.1(L) 32.3 - 35.7 g/dL [facility] RDW CV 14.9 11.1 - 14.9 % [facility] RDW SD 47.3 35.7 - 48.1 fL [facility] NRBC abs 0.00 0.00 - 0.01 K/cumm [facility] Blood 11/18/2024 6:01 PM CDT 11/18/2024 6:24 PM CDT us Kandis Spencer MD LAB BLOOD ORDERABLES Final Resu lt [facility] [place] [address] * (ABNORMAL) aPTT (11/18/2024 6:01 PM CDT) aPTT 76(H) 28 - 38 sec Comment: Interpretive Data Heparin therapeutic range: 66.0 - 100.0 seconds. Range based on correlation with therapeutic heparin activity range of 0.3 - 0.7 Units/mL. Current interpretive data was last revised on 2023. Blood 11/18/2024 6:01 PM CDT 11/18/2024 6:18 PM CDT Narrative [facility] - 11/18/2024 6:43 PM CDT STAT PTT [...] must be drawn peripherally (not from CVC). Ranulfo Gentile MD LAB BLOOD ORDERABLES Final R esult Performing Organization Address [facility] Co de Phone Number [facility] [employer] [place] [address] * (ABNORMAL) Protime-INR (11/18/2024 6:01 PM CDT) PT 15.6(H) 9.7 - 13.0 sec INR 1.43(H) 0.90 - 1.20 [facility] Comment: Interpretive data Oral anticoagulant [...] ORDERABLES F inal Result Performing Organization Address [facility] Co de Phone Number [facility] [employer] ([employer]) [place] [address] * Magnesium (11/18/2024 6:01 PM CDT) Magnesium 2.2 1.4 - 2.5 mg/dL Blood 11/18/2024 6:01 PM CDT 11/18/2024 6:24 PM CDT Ranulfo Gentile MD LAB BLOOD ORDERABLES Final R esult Performing Organization Address [facility] [place] [address] * (ABNORMAL) Basic metabolic panel (11/18/2024 6:01 PM CDT) Pathologist [facility] Sodium 139 135 - 145 mmol/L Potassium, pl 3.8 3.3 - 4.9 mmol/L [facility] Chloride 106 97 - 110 mmol/L [facility] CO2 26 22 - 32 mmol/L [facility] Anion gap 7 2 - 15 mmol/L [facility] BUN 14 6 - 25 mg/dL [facility] Creatinine 1.40(H) 0.60 - 1.10 mg/dL [facility] Glucose 99 70 - 199 mg/dL [facility] Comment: Interpretive Data Fasting glucose >/= 126 [...] 2022. Calcium 9.4 8.5 - 10.3 mg/dL [facility] Blood 11/18/2024 6:01 PM CDT 11/18/2024 6:24 PM CDT us Kandis Spencer MD LAB BLOOD ORDERABLES Final Resu lt [facility] [place] [address] * (ABNORMAL) aPTT (11/18/2024 11:45 AM CDT) Pathologist [facility] aPTT 74(H) 28 - 38 sec Comment: Interpretive Data Heparin therapeutic range: 66.0 - 100.0 seconds. Range based on correlation with therapeutic heparin activity range of 0.3 - 0.7 Units/mL. Current interpretive data was last revised on 2023. Blood 11/18/2024 11:4 5 AM CDT 11/18/2024 12:02 PM CDT Narrative [facility] - 11/18/2024 12:33 PM CDT STAT PTT [...] ORDERABLES Final R esult [facility] [place] [address] * (ABNORMAL) eGFR (11/18/2024 4:25 AM CDT) [...] MD LAB BLOOD ORDERABLES Final Resu lt [facility] [place] [address] * Differential, auto (11/18/2024 4:25 AM CDT) Neutrophil abs 2.93 1.50 - 6.50 K/cumm Imm gran abs 0.02 0.00 - 0.10 K/cumm [facility] Lymphocyte abs 1.32 0.80 - 3.30 K/cumm [facility] Monocyte abs 0.36 0.20 - 0.80 K/cumm [facility] Eosinophil abs 0.17 0.00 - 0.50 K/cumm [facility] Basophil abs 0.04 0.00 - 0.10 K/cumm [facility] Neutrophil pct 60.6 % [facility] Comment: Interpretive Data Percent cell count reference ranges are not reported, since discordance with absolute values may lead to misinterpretation of CBC data. Current Interpretive Data was last revised on 2017. Imm gran pct 0.4 % [facility] Comment: Interpretive Data Percent cell count reference ranges are not reported, since discordance with absolute values may lead to misinterpretation of CBC data. Current Interpretive Data was last revised on 2017. Lymphocyte pct 27.3 % [facility] Comment: Interpretive Data Percent cell count reference ranges are not reported, since discordance with absolute values may lead to misinterpretation of CBC data. Current Interpretive Data was last revised on 2017. Monocyte pct 7.4 % [facility] Comment: Interpretive Data Percent cell count reference ranges are not reported, since discordance with absolute values may lead to misinterpretation of CBC data. Current Interpretive Data was last revised on 2017. Eosinophil pct 3.5 % [facility] Comment: Interpretive Data Percent cell count reference ranges are not reported, since discordance with absolute values may lead to misinterpretation of CBC data. Current Interpretive Data was last revised on 2017. Basophil pct 0.8 % [facility] Comment: Interpretive Data Percent cell count reference ranges are not reported, since discordance with absolute values may lead to misinterpretation of CBC data. Current Interpretive Data was last revised on 2017. Blood 11/18/2024 4:25 AM CDT 11/18/2024 4:47 AM CDT us Kandis Spencer MD LAB BLOOD ORDERABLES Final Resu lt [facility] [place] [address] * (ABNORMAL) CBC with auto differential (11/18/2024 4:25 AM CDT) WBC 4.84 3.80 - 9.90 K/cumm Hgb 8.7(L) 11.9 - 15.5 g/dL [facility] Hct 28.6(L) 35.6 - 45.5 % [facility] Plt 183 150 - 400 K/cumm [facility] MPV 11.3 9.1 - 12.3 fL [facility] RBC 3.25(L) 3.90 - 5.20 M/cumm [facility] MCV 88.0 81.3 - 96.4 fL [facility] MCH 26.8(L) 27.1 - 33.3 pg [facility] MCHC 30.4(L) 32.3 - 35.7 g/dL [facility] RDW CV 14.8 11.1 - 14.9 % [facility] RDW SD 47.4 35.7 - 48.1 fL [facility] NRBC abs 0.00 0.00 - 0.01 K/cumm [facility] Blood 11/18/2024 4:25 AM CDT 11/18/2024 4:47 AM CDT us Kandis Spencer MD LAB BLOOD ORDERABLES Final Resu lt [facility] [employer] [place] [address] * (ABNORMAL) aPTT (11/18/2024 4:25 AM CDT) [...] ORDERABLES F inal Result Performing Organization Address [facility]/[place] [address] * (ABNORMAL) Protime-INR (11/18/2024 4:25 AM CDT) PT 16.1(H) 9.7 - 13.0 sec INR 1.48(H) 0.90 - 1.20 [facility] Comment: Interpretive data Oral anticoagulant [...] ORDERABLES Final Resu lt Performing Organization Address [facility] Co de Phone Number [facility] [place] [address] * Magnesium (11/18/2024 4:25 AM CDT) Magnesium 2.4 1.4 - 2.5 mg/dL Blood 11/18/2024 4:25 AM CDT 11/18/2024 4:47 AM CDT us Ranulfo Gentile MD LAB BLOOD ORDERABLES Final R esult Performing Organization Address City/[facility]/ZIP Co de Phone Number [facility] [place] [address] * (ABNORMAL) Basic metabolic panel (11/18/2024 4:25 AM CDT) [facility] Sodium 141 135 - 145 mmol/L Potassium, pl 3.9 3.3 - 4.9 mmol/L [facility] Chloride 106 97 - 110 mmol/L [facility] CO2 26 22 - 32 mmol/L [facility] Anion gap 9 2 - 15 mmol/L [facility] BUN 13 6 - 25 mg/dL [facility] Creatinine 1.41(H) 0.60 - 1.10 mg/dL [facility] Glucose 98 70 - 199 mg/dL [facility] Comment: Interpretive Data Fasting glucose >/= 126 [...] 2022. Calcium 9.7 8.5 - 10.3 mg/dL [facility] Blood 11/18/2024 4:25 AM CDT 11/18/2024 4:47 AM CDT us Kandis Spencer MD LAB BLOOD ORDERABLES Final Resu lt Performing Organization Address [facility]/ZIP Co de Phone Number [facility] [place] [address] * Tissue aerobic and anaerobic culture and gram stain Bone Thoracic spine (11/17/2024 5:15 PM CDT) Direct Specimen Exam Stain: No polymorphonuclear leukocytes seen. No organisms seen. Report Final Report: No growth [facility] Bone (Thoracic spine) 11/17/2024 5:15 PM CDT 11/17/2024 8:56 PM CDT Narrative JULIANA MCCALL - 11/21/2024 10:18 AM CDT T10-T11 BONE/DISC BIOPSY Testing performed by [facility] Microbiology Laboratory ([phone]) Specimens submitted from normally sterile body sites [...] MICROBIOLOGY - GEN ERAL ORDERABLES Final Result [facility] [place] [address] * IR Biopsy Deep Bone (11/17/2024 5:15 PM CDT) Anatomical Region Laterality Modality Body N/A Radio Fluoroscop y 11/17/2024 5:27 PM CDT Impressions 11/17/2024 5:27 PM CDT 1. T10-T11 bone/disc biopsy under fluoroscopic guidance. The core specimens and aspirate were sent to surgical pathology and microbiology. Electronically signed by: Riley Joya MD Narrative 11/17/2024 5:27 PM CDT EXAMINATION: T10-T11 bone/disc [...] was obtained. Prior to beginning the procedure, Zearing Protocol was performed to confirm the patient's [...] position of the biopsy needle. Procedure Note Riley Joya MD - 11/17/2024 EXAMINATION: T10-T11 bone/disc [...] was obtained. Prior to beginning the procedure, Zearing Protocol was performed to confirm the patient's [...] NP IM IR PROCEDURES Final Result * Aerobic and anaerobic culture and gram stain Aspirate Thoracic spine (11/17/2024 5:15 PM CDT) Direct Specimen Exam Stain: No polymorphonuclear leukocytes seen. No organisms seen. Report Final Report: No growth JULIANA [facility] Aspirate (Thoracic spine) 11/17/2024 5:15 PM CDT 11/17/2024 9:02 PM CDT Patsy ANDREWS [facility] - 11/21/2024 10:18 AM CDT T10-T11 ASPIRATE Testing performed by [facility] Microbiology Laboratory ([phone]) Specimens submitted from normally sterile body sites [...] was last revised on 2019. Eliane Feng IT APPLICATIONS DEVELOPER LAB MICROBIOLOGY - GENERAL ORD ERABLES Final Result JULIANA [facility] [place] [address] * Surgical pathology (11/17/2024 5:10 PM CDT) Tissue (Bone - Biopsy / Curettings) 11/17/2024 5:10 PM CDT Comment:T10-T11 BONE/DISC BI OPSY Narrative PATHOLOGY [facility] - 11/26/2024 9:45 AM CDT EPIC results best viewed via link to PDF [facility] [place] [address] Note to Patients: This report may contain [...] Gender: F : 1955 (Age: 69) Address: [address] [place], [place] [id number] Hospital #: [id number] Taken:11/17/2024 Received:11/17/2024 Reported: 11/26/2024 Patient Type: [facility] Inpatient Service: Medical Location: [place] [address] Physician(s): Eliane Feng, MICHAEL Berger M.D. Diagnosis: Bone, T10-T11, biopsy - Bone with medullary fibrosis, hemosiderin deposition and woven bone formation (see comment) me11/25/2024 12:55 By this signature, I attest that [...] A1 with Acid 1 decalcification. Jar 0. [facility]11/18/2024 11:30 PA(s): Cinthya Crooks By this signature, I attest that the above diagnosis is based upon my personal examination of the slides(and/or other material). Addenda/Procedures The performance characteristics of some immunohistochemical stains, fluorescence in-situ hybridization tests and immunophenotyping by flow cytometry cited in this report (if any) were determined by the Surgical Pathology and Flow Cytometry Departments at [facility] as part of an ongoing quality lab technician program and in compliance with federally [...] Surgical Pathology and Flow Cytometry Departments of [facility]. It has not been cleared or approved by the U. S. Food and Drug Administration. IMAGES AND SCANNED DOCUMENTS, IF INCLUDED, ONLY VIEWABLE IN PDF VERSION OF REPORT Eliane Feng NP LAB PATHOLOGY ORDERABLES Final Result Performing Organization Address [facility] Co de Phone Number PATHOLOGY [facility] 3rd Floor [place], [place] [phone] * (ABNORMAL) aPTT (11/17/2024 2:05 PM CDT) [...] ORDERABLES F inal Result Performing Organization Address [facility]/[place] de Phone Number [facility] [place] [address] * (ABNORMAL) Protime-INR (11/17/2024 2:05 PM CDT) PT 15.2(H) 9.7 - 13.0 sec INR 1.40(H) 0.90 - 1.20 JULIANA [facility] Comment: Interpretive data Oral anticoagulant therapeutic ranges: Venous thromboembolism prophylaxis or treatment: 2.0-3.0 CARDIOLOGY Standard range: 2.0-3.0 High-intensity range: 2.5-3.5 Refer to indication-specific guidelines for appropriate target ranges for prosthetic heart valve replacement. Current interpretive data was last revised on 2019. Blood 11/17/2024 2:05 PM CDT 11/17/2024 2:14 PM CDT us Baltazar Manzano MD LAB BLOOD ORDERABLES F inal Result JULIANA [facility] [place] [address] * MRI Spine Total Complete W WO [...] no high-grade spinal canal stenosis. Procedure Note Jessica Pagan MD - 11/17/2024 EXAMINATION: 1. Magnetic resonance [...] signed by: Jessica Pagan M.D. Eliane Feng IT APPLICATIONS DEVELOPER IMG MRI PROCEDURES Final Resul t * (ABNORMAL) aPTT (11/17/2024 5:40 AM CDT) aPTT 72(H) 28 - 38 sec Comment: Interpretive Data Heparin therapeutic range: 66.0 - 100.0 seconds. Range based on correlation with therapeutic heparin activity range of 0.3 - 0.7 Units/mL. Current interpretive data was last revised on 2023. Blood 11/17/2024 5:40 AM CDT 11/17/2024 6:01 AM CDT [facility] 11/17/2024 6:11 AM CDT STAT PTT timing: [...] MD LAB BLOOD ORDERABLES Final [facility]ult [facility] [place] [address] * (ABNORMAL) Protime-INR (11/17/2024 5:40 AM CDT) PT 16.4(H) 9.7 - 13.0 sec INR 1.51(H) 0.90 - 1.20 [facility] Comment: Interpretive data Oral anticoagulant [...] ORDERABLES F inal Result Performing Organization Address [facility]/ZIP Co de Phone Number [facility] [place] [address] * (ABNORMAL) eGFR (11/17/2024 1:33 AM CDT) eGFR 41(L) >=60 mL/min/1. 73 [...] Nagy MD LAB BLOOD ORDERABLES Final Result [facility] [place] [address] * Differential, auto (11/17/2024 1:33 AM CDT) Neutrophil abs 3.50 1.50 - 6.50 K/cumm Imm gran abs 0.02 0.00 - 0.10 K/cumm [facility] Lymphocyte abs 1.11 0.80 - 3.30 K/cumm [facility] Monocyte abs 0.41 0.20 - 0.80 K/cumm [facility] Eosinophil abs 0.19 0.00 - 0.50 K/cumm [facility] Basophil abs 0.03 0.00 - 0.10 K/cumm [facility] Neutrophil pct 66.5 % [facility] Comment: Interpretive Data Percent cell count reference ranges are not reported, since discordance with absolute values may lead to misinterpretation of CBC data. Current Interpretive Data was last revised on 2017. Imm gran pct 0.4 % [facility] Comment: Interpretive Data Percent cell count reference ranges are not reported, since discordance with absolute values may lead to misinterpretation of CBC data. Current Interpretive Data was last revised on 2017. Lymphocyte pct 21.1 % [facility] Comment: Interpretive Data Percent cell count reference ranges are not reported, since discordance with absolute values may lead to misinterpretation of CBC data. Current Interpretive Data was last revised on 2017. Monocyte pct 7.8 % [facility] Comment: Interpretive Data Percent cell count reference ranges are not reported, since discordance with absolute values may lead to misinterpretation of CBC data. Current Interpretive Data was last revised on 2017. Eosinophil pct 3.6 % [facility] Comment: Interpretive Data Percent cell count reference ranges are not reported, since discordance with absolute values may lead to misinterpretation of CBC data. Current Interpretive Data was last revised on 2017. Basophil pct 0.6 % [facility] Comment: Interpretive Data Percent cell count reference ranges are not reported, since discordance with absolute values may lead to misinterpretation of CBC data. Current Interpretive Data was last revised on 2017. Blood 11/17/2024 1:33 AM CDT 11/17/2024 1:47 AM CDT us Mariela Nagy MD LAB BLOOD ORDERABLES Final Result [facility] [place] [address] * (ABNORMAL) CBC with auto differential (11/17/2024 1:33 AM CDT) WBC 5.26 3.80 - 9.90 K/cumm Hgb 7.4(L) 11.9 - 15.5 g/dL [facility] Hct 24.0(L) 35.6 - 45.5 % [facility] Plt 175 150 - 400 K/cumm [facility] MPV 11.1 9.1 - 12.3 fL [facility] RBC 2.80(L) 3.90 - 5.20 M/cumm [facility] MCV 85.7 81.3 - 96.4 fL [facility] MCH 26.4(L) 27.1 - 33.3 pg [facility] MCHC 30.8(L) 32.3 - 35.7 g/dL [facility] RDW CV 14.6 11.1 - 14.9 % [facility] RDW SD 46.0 35.7 - 48.1 fL [facility] NRBC abs 0.00 0.00 - 0.01 K/cumm [facility] Blood 11/17/2024 1:33 AM CDT 11/17/2024 1:47 AM CDT Mariela Nagy MD LAB BLOOD ORDERABLES Final Result [facility] [place] [address] * (ABNORMAL) Basic metabolic panel (11/17/2024 1:33 AM CDT) Sodium 142 135 - 145 mmol/L Potassium, pl 4.0 3.3 - 4.9 mmol/L [facility] Chloride 107 97 - 110 mmol/L [facility] Comment:Repeated and Verifie d CO2 26 22 - 32 mmol/L [facility] Anion gap 9 2 - 15 mmol/L [facility] Comment:Repeated and Verifie d BUN 16 6 - 25 mg/dL [facility] Creatinine 1.40(H) 0.60 - 1.10 mg/dL [facility] Glucose 120 70 - 199 mg/dL [facility] Comment: Interpretive Data Fasting glucose >/= 126 [...] 2022. Calcium 9.1 8.5 - 10.3 mg/dL [facility] Blood 11/17/2024 1:33 AM CDT 11/17/2024 1:46 AM CDT Mariela Nagy MD LAB BLOOD ORDERABLES Final Result [facility] [place] [address] * POCT glucose (11/17/2024 1:32 AM CDT) Glucose, POC 125 70 - 199 mg/dL Blood 11/17/2024 1:32 AM CDT 11/17/2024 1:32 AM CDT us Kandis Spencer MD LAB POCT ORDERABLES - DEVICE Fi nal Result Performing Organization Address [facility]/ZIP Co [place] [address] * (ABNORMAL) eGFR (11/16/2024 11:02 PM CDT) Pathologist [facility] eGFR 50(L) >=60 mL/min/1. 73 m2 Comment: [...] ORDERABLES Final Resu lt Performing Organization Address City/[facility]/ZIP Co de Phone Number JULIANA [facility] [place] [address] * Differential, auto (11/16/2024 11:02 PM CDT) Neutrophil abs 2.84 1.50 - 6.50 K/cumm Imm gran abs 0.03 0.00 - 0.10 K/cumm [facility] Lymphocyte abs 0.87 0.80 - 3.30 K/cumm [facility] Monocyte abs 0.31 0.20 - 0.80 K/cumm [facility] Eosinophil abs 0.12 0.00 - 0.50 K/cumm [facility] Basophil abs 0.03 0.00 - 0.10 K/cumm [facility] Neutrophil pct 67.6 % [facility] Comment: Interpretive Data Percent cell count reference ranges are not reported, since discordance with absolute values may lead to misinterpretation of CBC data. Current Interpretive Data was last revised on 2017. Imm gran pct 0.7 % [facility] Comment: Interpretive Data Percent cell count reference ranges are not reported, since discordance with absolute values may lead to misinterpretation of CBC data. Current Interpretive Data was last revised on 2017. Lymphocyte pct 20.7 % [facility] Comment: Interpretive Data Percent cell count reference ranges are not reported, since discordance with absolute values may lead to misinterpretation of CBC data. Current Interpretive Data was last revised on 2017. Monocyte pct 7.4 % [facility] Comment: Interpretive Data Percent cell count reference ranges are not reported, since discordance with absolute values may lead to misinterpretation of CBC data. Current Interpretive Data was last revised on 2017. Eosinophil pct 2.9 % [facility] Comment: Interpretive Data Percent cell count reference ranges are not reported, since discordance with absolute values may lead to misinterpretation of CBC data. Current Interpretive Data was last revised on 2017. Basophil pct 0.7 % [facility] Comment: Interpretive Data Percent cell count reference ranges are not reported, since discordance with absolute values may lead to misinterpretation of CBC data. Current Interpretive Data was last revised on 2017. Blood 11/16/2024 11:0 2 PM CDT 11/16/2024 11:25 PM CDT us Kandis Spencer MD LAB BLOOD ORDERABLES Final Resu lt Performing Organization Address City/[facility]/ZIP Co de Phone Number [facility] [place] [address] * Critical Result Callback Chemistry (11/16/2024 11:02 PM CDT) Pathologist [facility] Date Notified [id number] Time Notified 111 JULIANA [facility] TestName Anion Gap JULIANA [facility] Called/Read Back Cleo ANDREWS [facility] Credentials RN [facility] Called By beka ANDREWS [facility] Blood 11/16/2024 11:0 2 PM CDT 11/16/2024 11:25 PM CDT us Kandis Spencer MD LAB BLOOD ORDERABLES Final Resu lt Performing Organization Address [facility] Co de Phone Number [facility] [place] [address] * (ABNORMAL) CBC with auto differential (11/16/2024 11:02 PM CDT) [facility] WBC 4.20 3.80 - 9.90 K/cumm Hgb 7.1(L) 11.9 - 15.5 g/dL [facility] Hct 22.8(L) 35.6 - 45.5 % [facility] Plt 160 150 - 400 K/cumm [facility] MPV 11.1 9.1 - 12.3 fL [facility] RBC 2.67(L) 3.90 - 5.20 M/cumm [facility] MCV 85.4 81.3 - 96.4 fL [facility] MCH 26.6(L) 27.1 - 33.3 pg [facility] MCHC 31.1(L) 32.3 - 35.7 g/dL [facility] RDW CV 14.6 11.1 - 14.9 % [facility] RDW SD 45.5 35.7 - 48.1 fL [facility] NRBC abs 0.00 0.00 - 0.01 K/cumm [facility] Blood 11/16/2024 11:0 2 PM CDT 11/16/2024 11:25 PM CDT us Kandis Spencer MD LAB BLOOD ORDERABLES Final Resu lt Performing Organization Address [facility]/ZIP Co de Phone Number [facility] Department of [employer] [place] [address] * (ABNORMAL) aPTT (11/16/2024 11:02 PM CDT) [facility] aPTT 62(H) 28 - 38 sec Comment: Interpretive Data Heparin therapeutic range: 66.0 - 100.0 seconds. Range based on correlation with therapeutic heparin activity range of 0.3 - 0.7 Units/mL. Current interpretive data was last revised on 2023. Blood 11/16/2024 11:0 2 PM CDT 11/16/2024 11:27 PM CDT Narrative [facility] - 11/16/2024 11:37 PM CDT STAT PTT [...] ORDERABLES Final R esult Performing Organization Address [facility]/ZIP Co de Phone Number [facility] [place] [address] * (ABNORMAL) Protime-INR (11/16/2024 11:02 PM CDT) [facility] PT 18.7(H) 9.7 - 13.0 sec INR 1.71(H) 0.90 - 1.20 [facility] Comment: Interpretive data Oral anticoagulant therapeutic ranges: Venous thromboembolism prophylaxis or treatment: 2.0-3.0 CARDIOLOGY Standard range: 2.0-3.0 High-intensity range: 2.5-3.5 Refer to indication-specific guidelines for appropriate target ranges for prosthetic heart valve replacement. Current interpretive data was last revised on 2019. Blood 11/16/2024 11:0 2 PM CDT 11/16/2024 11:26 PM CDT us Kandis Spencer MD LAB BLOOD ORDERABLES Final Resu lt Performing Organization Address City/[facility]/ZIP Co de Phone Number [facility] [place] [address] * Magnesium (11/16/2024 11:02 PM CDT) [facility] Magnesium 1.8 1.4 - 2.5 mg/dL Blood 11/16/2024 11:0 2 PM CDT 11/16/2024 11:25 PM CDT us Ranulfo Gentile MD LAB BLOOD ORDERABLES Final R esult Performing Organization Address City/[facility]/ZIP Co de Phone Number [facility] [place] [address] * (ABNORMAL) Basic metabolic panel (11/16/2024 11:02 PM CDT) [facility] Sodium 137 135 - 145 mmol/L Potassium, pl 3.3 3.3 - 4.9 mmol/L [facility] Chloride 88(L) 97 - 110 mmol/L [facility] Comment:Repeated and Verifie d CO2 22 22 - 32 mmol/L [facility] Anion gap 27(C) 2 - 15 mmol/L [facility] Comment:Repeated and Verifie d BUN 14 6 - 25 mg/dL [facility] Creatinine 1.20(H) 0.60 - 1.10 mg/dL [facility] Glucose 69(L) 70 - 199 mg/dL [facility] Comment: Interpretive Data Fasting glucose >/= 126 [...] 2022. Calcium 7.7(L) 8.5 - 10.3 mg/dL [facility] Blood 11/16/2024 11:0 2 PM CDT 11/16/2024 11:25 PM CDT us Kandis Spencer MD LAB BLOOD ORDERABLES Final Resu lt [facility] [place] [address] * Blood culture Blood (11/16/2024 11:31 AM CDT) Report Final Report: No growth Blood 11/16/2024 11:3 1 AM CDT 11/16/2024 11:46 AM CDT Narrative [facility] - 11/20/2024 12:00 PM CDT Collection->Peripheral 1. [...] performance characteristics have been verified by the [facility] Microbiology Laboratory. For questions about this culture, contact the Microbiology Laboratory at [phone]. Interpretive data was last revised on 24. Kandis Spencer MD LAB MICROBIOLOGY - GENERAL [facility] Final Result JULIANA RIBERA [facility] [place] [address] * Blood culture Blood (11/16/2024 11:31 AM CDT) Report Final Report: No growth Blood 11/16/2024 11:3 1 AM CDT 11/16/2024 11:46 AM CDT [facility] - 11/20/2024 12:00 PM CDT Collection->Peripheral 1. [...] performance characteristics have been verified by the [facility] Microbiology Laboratory. For questions about this culture, contact the Microbiology Laboratory at [phone]. Interpretive data was last revised on 24. Kandis Spencer MD LAB MICROBIOLOGY - GENERAL ANDRE [facility] Final Result [facility] [place] [address] * Differential, auto (11/15/2024 11:46 PM CDT) Pathologist [facility] Neutrophil abs 2.81 1.50 - 6.50 K/cumm Imm gran abs 0.02 0.00 - 0.10 K/cumm [facility] Lymphocyte abs 1.22 0.80 - 3.30 K/cumm [facility] Monocyte abs 0.31 0.20 - 0.80 K/cumm [facility] Eosinophil abs 0.09 0.00 - 0.50 K/cumm [facility] Basophil abs 0.02 0.00 - 0.10 K/cumm [facility] Neutrophil pct 63.0 % [facility] Comment: Interpretive Data Percent cell count reference ranges are not reported, since discordance with absolute values may lead to misinterpretation of CBC data. Current Interpretive Data was last revised on 2017. Imm gran pct 0.4 % [facility] Comment: Interpretive Data Percent cell count reference ranges are not reported, since discordance with absolute values may lead to misinterpretation of CBC data. Current Interpretive Data was last revised on 2017. Lymphocyte pct 27.3 % [facility] Comment: Interpretive Data Percent cell count reference ranges are not reported, since discordance with absolute values may lead to misinterpretation of CBC data. Current Interpretive Data was last revised on 2017. Monocyte pct 6.9 % [facility] Comment: Interpretive Data Percent cell count reference ranges are not reported, since discordance with absolute values may lead to misinterpretation of CBC data. Current Interpretive Data was last revised on 2017. Eosinophil pct 2.0 % [facility] Comment: Interpretive Data Percent cell count reference ranges are not reported, since discordance with absolute values may lead to misinterpretation of CBC data. Current Interpretive Data was last revised on 2017. Basophil pct 0.4 % [facility] Comment: Interpretive Data Percent cell count reference ranges are not reported, since discordance with absolute values may lead to misinterpretation of CBC data. Current Interpretive Data was last revised on 2017. Blood 11/15/2024 11:4 6 PM CDT 11/16/2024 12:46 AM CDT us Kandis Spencer MD LAB BLOOD ORDERABLES Final Resu lt [facility] [place] [address] * (ABNORMAL) CBC with auto differential (11/15/2024 11:46 PM CDT) WBC 4.47 3.80 - 9.90 K/cumm Hgb 8.6(L) 11.9 - 15.5 g/dL [facility] Hct 27.5(L) 35.6 - 45.5 % [facility] Plt 172 150 - 400 K/cumm [facility] MPV 11.8 9.1 - 12.3 fL [facility] RBC 3.21(L) 3.90 - 5.20 M/cumm [facility] MCV 85.7 81.3 - 96.4 fL [facility] MCH 26.8(L) 27.1 - 33.3 pg [facility] MCHC 31.3(L) 32.3 - 35.7 g/dL [facility] RDW CV 14.6 11.1 - 14.9 % [facility] RDW SD 45.6 35.7 - 48.1 fL [facility] NRBC abs 0.00 0.00 - 0.01 K/cumm [facility] Blood 11/15/2024 11:4 6 PM CDT 11/16/2024 12:46 AM CDT us Kandis Spencer MD LAB BLOOD ORDERABLES Final Resu lt Performing Organization Address [facility]/ZIP Co de Phone Number JULIANA RIBERA [facility] [place] [address] * (ABNORMAL) aPTT (11/15/2024 11:46 PM CDT) aPTT 77(H) 28 - 38 sec Comment: Interpretive Data Heparin therapeutic range: 66.0 - 100.0 seconds. Range based on correlation with therapeutic heparin activity range of 0.3 - 0.7 Units/mL. Current interpretive data was last revised on 2023. Blood 11/15/2024 11:4 6 PM CDT 11/15/2024 11:54 PM CDT Narrative [facility] - 11/16/2024 12:34 AM CDT [...] ORDERABLES Final R esult Performing Organization Address City/[facility]/ZIP Co de Phone Number JULIANA RIBERA [facility] [place] [address] * (ABNORMAL) Protime-INR (11/15/2024 11:46 PM CDT) PT 16.2(H) 9.7 - 13.0 sec INR 1.49(H) 0.90 - 1.20 [facility] Comment: Interpretive data Oral anticoagulant [...] ORDERABLES Final Resu lt Performing Organization Address [facility] Co de Phone Number [facility] [place] [address] * Magnesium (11/15/2024 11:46 PM CDT) Magnesium 2.4 1.4 - 2.5 mg/dL Blood 11/15/2024 11:4 6 PM CDT 11/16/2024 12:08 AM CDT us Ranulfo Gentile MD LAB BLOOD ORDERABLES Final R esult Performing Organization Address [facility]/[place] de Phone Number [facility] Department of [employer] [place] [address] * Blood culture Blood Arm, right (11/15/2024 1:14 PM CDT) Report Final Report: No growth Blood (Arm, right) 11/15/2024 1:14 PM CDT 11/15/2024 1:24 PM CDT Narrative [facility] - 11/19/2024 4:00 PM CDT [...] performance characteristics have been verified by the [facility] Microbiology Laboratory. For questions about this culture, contact the Microbiology Laboratory at [phone]. Interpretive data was last revised on 24. us Kandis Spencer MD LAB MICROBIOLOGY - [facility] ANDRE FORDE Final Result JULIANA [facility] [place] [address] * (ABNORMAL) eGFR (11/15/2024 1:08 PM CDT) [...] 1:08 PM CDT 11/15/2024 1:29 PM CDT Lia Ye MD LAB BLOOD ORDERABL ES Final Result JUL[facility] [place] [address] * Blood culture Blood Arm, left (11/15/2024 1:08 PM CDT) Report Final Report: No growth Blood (Arm, left) 11/15/2024 1:08 PM CDT 11/15/2024 1:24 PM CDT Narrative [facility] - 11/19/2024 4:00 PM CDT Collection->Peripheral 1. [...] performance characteristics have been verified by the [facility] Microbiology Laboratory. For questions about this culture, contact the Microbiology Laboratory at [phone]. Interpretive data was last revised on 24. Lia Ye MD LAB MICROBIOLOGY - GENERAL ORDERABLES Final Result Performing Organization Address City/[facility]/ZIP Co de Phone Number [facility] [place] [address] * (ABNORMAL) Basic metabolic panel (11/15/2024 1:08 PM CDT) Sodium 140 135 - 145 mmol/L Potassium, pl 4.2 3.3 - 4.9 mmol/L [facility] Chloride 106 97 - 110 mmol/L [facility] CO2 26 22 - 32 mmol/L [facility] Anion gap 8 2 - 15 mmol/L [facility] BUN 16 6 - 25 mg/dL [facility] Creatinine 1.38(H) 0.60 - 1.10 mg/dL [facility] Glucose 117 70 - 199 mg/dL [facility] Comment: Interpretive Data Fasting glucose >/= 126 [...] 2022. Calcium 9.2 8.5 - 10.3 mg/dL [facility] Blood 11/15/2024 1:08 PM CDT 11/15/2024 1:29 PM CDT us Lia Ye MD LAB BLOOD ORDERABL ES Final Result [facility] [place] [address] * (ABNORMAL) Protime-INR (11/15/2024 10:11 AM CDT) Pathologist [facility] PT 18.3(H) 9.7 - 13.0 sec INR 1.68(H) 0.90 - 1.20 [facility] Comment: Interpretive data Oral anticoagulant [...] ORDERABLES Final Resu lt Performing Organization Address [facility] Co de Phone Number [facility] Department of [employer] [place] [address] * (ABNORMAL) eGFR (11/14/2024 10:03 PM CDT) [...] ORDERABLES Final R esult Performing Organization Address [facility]/ZIP Co de Phone Number [facility] [place] [address] * (ABNORMAL) CBC without differential (11/14/2024 10:03 PM CDT) Pathologist [facility] WBC 4.52 3.80 - 9.90 K/cumm Hgb 7.9(L) 11.9 - 15.5 g/dL [facility] Hct 24.8(L) 35.6 - 45.5 % [facility] Plt 153 150 - 400 K/cumm [facility] MPV 11.7 9.1 - 12.3 fL [facility] RBC 2.88(L) 3.90 - 5.20 M/cumm [facility] MCV 86.1 81.3 - 96.4 fL [facility] MCH 27.4 27.1 - 33.3 pg [facility] MCHC 31.9(L) 32.3 - 35.7 g/dL [facility] RDW CV 14.6 11.1 - 14.9 % [facility] RDW SD 45.8 35.7 - 48.1 fL [facility] NRBC abs 0.00 0.00 - 0.01 K/cumm [facility] Blood 11/14/2024 10:0 3 PM CDT 11/14/2024 10:43 PM CDT us Ranulfo Gentile MD LAB BLOOD ORDERABLES Final R esult Performing Organization Address City/[facility] Co de Phone Number [facility] [email or web address] [place] [address] * Phosphorus (11/14/2024 10:03 PM CDT) Pathologist [facility] Phosphorus, pl 3.8 2.3 - 4.5 mg/dL Blood 11/14/2024 10:0 3 PM CDT 11/14/2024 10:40 PM CDT us Kandis Spencer MD LAB BLOOD ORDERABLES Final Resu lt Performing Organization Address City/[facility]/ZIP Co de Phone Number [facility] [place] [employer] [place] [address] * Magnesium (11/14/2024 10:03 PM CDT) Pathologist [facility] Magnesium 2.3 1.4 - 2.5 mg/dL Blood 11/14/2024 10:0 3 PM CDT 11/14/2024 10:40 PM CDT us Ranulfo Gentile MD LAB BLOOD ORDERABLES Final R esult Performing Organization Address City/State/[facility] Co de Phone Number [facility] [place] [address] * (ABNORMAL) Basic metabolic panel (11/14/2024 10:03 PM CDT) [facility] Sodium 141 135 - 145 mmol/L Potassium, pl 4.0 3.3 - 4.9 mmol/L [facility] Chloride 105 97 - 110 mmol/L [facility] CO2 26 22 - 32 mmol/L [facility] Anion gap 10 2 - 15 mmol/L [facility] BUN 18 6 - 25 mg/dL [facility] Creatinine 1.60(H) 0.60 - 1.10 mg/dL [facility] Glucose 108 70 - 199 mg/dL [facility] Comment: Interpretive Data Fasting glucose >/= 126 [...] 2022. Calcium 9.2 8.5 - 10.3 mg/dL [facility] Blood 11/14/2024 10:0 3 PM CDT 11/14/2024 10:40 PM CDT Ranulfo Gentile MD LAB BLOOD ORDERABLES Final R esult Performing Organization Address City/State/[facility] Co de Phone Number [facility] [place] [employer] [place] [address] * (ABNORMAL) aPTT (11/14/2024 6:53 PM CDT) [...] ORDERABLES Final Resu lt Performing Organization Address [facility]/[place] de Phone Number [facility] [place] [employer] [place] [address] * (ABNORMAL) aPTT (11/14/2024 12:12 PM CDT) aPTT 77(H) 28 - 38 sec Comment: Interpretive Data Heparin therapeutic range: 66.0 - 100.0 seconds. Range based on correlation with therapeutic heparin activity range of 0.3 - 0.7 Units/mL. Current interpretive data was last revised on 2023. Blood 11/14/2024 12:1 2 PM CDT 11/14/2024 12:26 PM CDT Narrative JULIANA [facility] - 11/14/2024 12:53 PM CDT STAT PTT [...] ORDERABLES Final R esult Performing Organization Address City/[facility]/ZIP Co de Phone Number JULIANA [facility] [place] [address] * ECG 12 lead (11/14/2024 10:29 AM CDT) Pathologist [facility] Ventricular Rate EKG/Min 78 BPM [facility] Atrial Rate 78 BPM [facility] QRS-Interval (MSEC) 144 ms [facility] QT-Interval (MSEC) 468 ms [facility] QTc 533 ms [facility] P [place] 53 degrees [facility] R [place] 261 degrees [facility] T [place] 45 degrees [facility] 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 AV dual-paced complexes Abnormal ECG No previous ECGs available Confirmed by MARVIN POMPA M.D ([id number]) on 11/15/2024 3:25:47 PM [facility] 11/14/2024 10:2 9 AM CDT 11/15/2024 3:25 PM CDT us Kandis Spencer MD ECG ORDERABLES Final Result Performing Organization Address [facility] Co de Phone Number [facility] * TRANSTHORACIC ECHO (TTE) COMPLETE W DOPPLER/CF W CONTRAST (11/14/2024 8:41 AM CDT) [facility] EF Mod BP 67 % CONS SCIMAGE Anatomical Region Laterality Modality Ultrasound 11/14/2024 7:20 AM CDT Narrative 11/14/2024 1:03 PM CDT [facility] [place] [address] Transthoracic Echocardiographic Report Patient Name: KENDAL CISNEROS J : 1955 (69y 10m) Gender: F Study Date: 11/14/2024 07:20:46 Ht(Inch): 62 Wt(Lb): 138.89 BSA: 1.66 Client Program Manager: Michelle Kaminski RDCS Location: [id number] Order Provider: YARELIRANULFO Heart Rate: 74 BMI: 25.4 BP: 102 [...] Procedure Note Ryan Stephenson MD - 11/14/2024 [facility] [place] [address] Transthoracic Echocardiographic Report Patient Name: KENDAL CISNEROS J : 1955 (69y 10m) Gender: F Study Date: 11/14/2024 07:20:46 Ht(Inch): 62 Wt(Lb): 138.89 BSA: 1.66 Client Program Manager: Michelle Kaminski RDCS Location: [id number] Order Provider:RANULFO GENTILE Heart Rate: 74 BMI: 25.4 BP: [...] [ 2.5 - 4.2 ] MV Decel Calt217.78 msec [ 104.00 - 258.00 ] TAPSE [...] LAB BLOOD ORDERABLES Final R esult [facility] [place] [address] * (ABNORMAL) eGFR (11/13/2024 10:35 PM CDT) [...] 5 PM CDT 11/13/2024 10:54 PM CDT us Ranulfo Gentile MD LAB BLOOD ORDERABLES Final R esult Performing Organization Address City/[facility]/ZIP Co de Phone Number [facility] [place] [address] * (ABNORMAL) Erythrocyte sedimentation rate (11/13/2024 10:35 PM CDT) [facility] Erythrocyte sedimentation rate 82(H) 1 - 30 mm/hr Blood 11/13/2024 10:3 5 PM CDT 11/13/2024 10:43 PM CDT us Ranulfo Gentile MD LAB BLOOD ORDERABLES Final R esult Performing Organization Address [facility] Co de Phone Number [facility] [place] [address] * (ABNORMAL) CBC without differential (11/13/2024 10:35 PM CDT) [facility] WBC 5.87 3.80 - 9.90 K/cumm Hgb 8.1(L) 11.9 - 15.5 g/dL [facility] Hct 26.3(L) 35.6 - 45.5 % [facility] Plt 192 150 - 400 K/cumm [facility] MPV 11.1 9.1 - 12.3 fL [facility] RBC 3.07(L) 3.90 - 5.20 M/cumm [facility] MCV 85.7 81.3 - 96.4 fL [facility] MCH 26.4(L) 27.1 - 33.3 pg [facility] MCHC 30.8(L) 32.3 - 35.7 g/dL [facility] RDW CV 14.4 11.1 - 14.9 % [facility] RDW SD 45.2 35.7 - 48.1 fL [facility] NRBC abs 0.00 0.00 - 0.01 K/cumm [facility] Blood 11/13/2024 10:3 5 PM CDT 11/13/2024 10:43 PM CDT us Ranulfo Gentile MD LAB BLOOD ORDERABLES Final R esult Performing Organization Address City/[facility] Co de Phone Number [facility] [place] [address] * (ABNORMAL) CRP (acute phase) (11/13/2024 10:35 PM CDT) [facility] CRP 17.0(H) <=10.0 mg/L Blood 11/13/2024 10:3 5 PM CDT 11/13/2024 10:43 PM CDT Ranulfo Gentile MD LAB BLOOD ORDERABLES Final R esult Performing Organization Address [facility] Co de Phone Number [facility] [place] [address] * Magnesium (11/13/2024 10:35 PM CDT) [facility] Magnesium 2.3 1.4 - 2.5 mg/dL Blood 11/13/2024 10:3 5 PM CDT 11/13/2024 10:43 PM CDT Ranulfo Gentile MD LAB BLOOD ORDERABLES Final R esult Performing Organization Address City/[facility] Co de Phone Number [facility] [place] [address] * (ABNORMAL) Basic metabolic panel (11/13/2024 10:35 PM CDT) [facility] Sodium 139 135 - 145 mmol/L Potassium, pl 3.9 3.3 - 4.9 mmol/L [facility] Chloride 105 97 - 110 mmol/L [facility] CO2 29 22 - 32 mmol/L [facility] Anion gap 5 2 - 15 mmol/L [facility] BUN 14 6 - 25 mg/dL [facility] Creatinine 1.40(H) 0.60 - 1.10 mg/dL [facility] Glucose 98 70 - 199 mg/dL [facility] Comment: Interpretive Data Fasting glucose >/= 126 [...] 2022. Calcium 9.6 8.5 - 10.3 mg/dL [facility] Blood 11/13/2024 10:3 5 PM CDT 11/13/2024 10:43 PM CDT us Ranulfo Gentile MD LAB BLOOD ORDERABLES Final R esult Performing Organization Address [facility] Co de Phone Number [facility] [place] [address] * aPTT (11/13/2024 5:26 PM CDT) [facility] Signature aPTT 31 28 - 38 sec Comment: Interpretive Data Heparin therapeutic range: 66.0 - 100.0 seconds. Range based on correlation with therapeutic heparin activity range of 0.3 - 0.7 Units/mL. Current interpretive data was last revised on 2023. Blood 11/13/2024 5:26 PM CDT 11/13/2024 5:51 PM CDT Narrative [facility] - 11/13/2024 6:00 PM CDT Baseline prior to heparin initiation us Eliane Feng NP LAB BLOOD ORDERABLES Final Res ult Performing Organization Address [facility] Co de Phone Number [facility] [place] [address] * (ABNORMAL) Protime-INR (11/13/2024 5:26 PM CDT) Pathologist [facility] PT 25.3(H) 9.7 - 13.0 sec INR 2.30(H) 0.90 - 1.20 [facility] Comment: Interpretive data Oral anticoagulant therapeutic ranges: Venous thromboembolism prophylaxis or treatment: 2.0-3.0 CARDIOLOGY Standard range: 2.0-3.0 High-intensity range: 2.5-3.5 Refer to indication-specific guidelines for appropriate target ranges for prosthetic heart valve replacement. Current interpretive data was last revised on 2019. Blood 11/13/2024 5:26 PM CDT 11/13/2024 5:51 PM CDT Narrative [facility] - 11/13/2024 6:00 PM CDT Baseline prior to heparin initiation Eliane Feng NP LAB BLOOD ORDERABLES Final Res ult [facility] [place] [address] * (ABNORMAL) CBC without differential (11/13/2024 5:26 PM CDT) [facility] WBC 6.04 3.80 - 9.90 K/cumm Hgb 8.5(L) 11.9 - 15.5 g/dL [facility] Hct 26.6(L) 35.6 - 45.5 % [facility] Plt 184 150 - 400 K/cumm [facility] MPV 11.3 9.1 - 12.3 fL [facility] RBC 3.16(L) 3.90 - 5.20 M/cumm [facility] MCV 84.2 81.3 - 96.4 fL [facility] MCH 26.9(L) 27.1 - 33.3 pg [facility] MCHC 32.0(L) 32.3 - 35.7 g/dL [facility] RDW CV 14.4 11.1 - 14.9 % [facility] RDW SD 44.5 35.7 - 48.1 fL [facility] NRBC abs 0.00 0.00 - 0.01 K/cumm [facility] Blood 11/13/2024 5:26 PM CDT 11/13/2024 5:50 PM CDT Narrative [facility] - 11/13/2024 6:05 PM CDT Baseline prior to heparin initiation us Eliane Feng [employer] LAB BLOOD ORDERABLES Final Res ult [facility] [place] [address] * (ABNORMAL) eGFR (11/13/2024 2:19 PM CDT) [facility] eGFR 41(L) >=60 mL/min/1. 73 m2 Comment: [...] 2:19 PM CDT 11/13/2024 2:21 PM CDT Tiffanie Grey MD LAB BLOOD ORDERABLES Final Result [facility] [place] [address] * Differential, auto (11/13/2024 2:19 PM CDT) Pathologist [facility] Neutrophil abs 5.24 1.50 - 6.50 K/cumm Imm gran abs 0.03 0.00 - 0.10 K/cumm [facility] Lymphocyte abs 0.98 0.80 - 3.30 K/cumm [facility] Monocyte abs 0.49 0.20 - 0.80 K/cumm [facility] Eosinophil abs 0.10 0.00 - 0.50 K/cumm [facility] Basophil abs 0.04 0.00 - 0.10 K/cumm [facility] Neutrophil pct 76.2 % [facility] Comment: Interpretive Data Percent cell count reference ranges are not reported, since discordance with absolute values may lead to misinterpretation of CBC data. Current Interpretive Data was last revised on 2017. Imm gran pct 0.4 % [facility] Comment: Interpretive Data Percent cell count reference ranges are not reported, since discordance with absolute values may lead to misinterpretation of CBC data. Current Interpretive Data was last revised on 2017. Lymphocyte pct 14.2 % [facility] Comment: Interpretive Data Percent cell count reference ranges are not reported, since discordance with absolute values may lead to misinterpretation of CBC data. Current Interpretive Data was last revised on 2017. Monocyte pct 7.1 % [facility] Comment: Interpretive Data Percent cell count reference ranges are not reported, since discordance with absolute values may lead to misinterpretation of CBC data. Current Interpretive Data was last revised on 2017. Eosinophil pct 1.5 % [facility] Comment: Interpretive Data Percent cell count reference ranges are not reported, since discordance with absolute values may lead to misinterpretation of CBC data. Current Interpretive Data was last revised on 2017. Basophil pct 0.6 % [facility] Comment: Interpretive Data Percent cell count reference ranges are not reported, since discordance with absolute values may lead to misinterpretation of CBC data. Current Interpretive Data was last revised on 2017. Blood 11/13/2024 2:19 PM CDT 11/13/2024 2:31 PM CDT Tiffanie Grey MD LAB BLOOD ORDERABLES Final Result Performing Organization Address [facility]/[place] de Phone Number [facility] [place] [address] * (ABNORMAL) CBC with auto differential (11/13/2024 2:19 PM CDT) [facility] WBC 6.88 3.80 - 9.90 K/cumm Hgb 8.8(L) 11.9 - 15.5 g/dL [facility] Hct 27.9(L) 35.6 - 45.5 % [facility] Plt 204 150 - 400 K/cumm [facility] MPV 11.0 9.1 - 12.3 fL [facility] RBC 3.28(L) 3.90 - 5.20 M/cumm [facility] MCV 85.1 81.3 - 96.4 fL [facility] MCH 26.8(L) 27.1 - 33.3 pg [facility] MCHC 31.5(L) 32.3 - 35.7 g/dL [facility] RDW CV 14.5 11.1 - 14.9 % [facility] RDW SD 44.4 35.7 - 48.1 fL [facility] NRBC abs 0.00 0.00 - 0.01 K/cumm [facility] Blood 11/13/2024 2:19 PM CDT 11/13/2024 2:31 PM CDT Tiffanie Grey MD LAB BLOOD ORDERABLES Final Result Performing Organization Address [facility] Co de Phone Number J[facility] [place] [address] * (ABNORMAL) Blood culture Blood Peripheral (11/13/2024 2:19 PM CDT) [facility] Direct Specimen Exam Molecular Analysis: Enterococcus faecalis detected by jm ePlex BCID-G panel. Enterococcus faecalis is routinely susceptible to ampicillin. Genes conferring Vancomycin resistance were not detected. This test does not exclude the possibility of a mixed bacterial infection. Notification of: Enterococcus faicalis called to and read back by: Colin Blair MD [phone] on 11/14/2024 08:50:27 by: Blake Garcia MLT Direct Specimen Exam Stain: Gram Positive Cocci in pairs and chains Time to culture positivity (aerobic media): 16.0 hours Time to culture positivity (anaerobic media): 16.0 hours Notification of: Gram Positive Cocci in pairs and chains called to and read back by: Colin Blair MD [phone] on 11/14/2024 06:51:41 by: Olesya Barrera MT [facility] Report Final Report: Enterococcus faecalis For serious infections with Enterococcus species (such as endocarditis or endovascular graft infections), combination antimicrobial therapy is often required. In these cases, an Infectious Disease Consult is strongly recommended. (.) [facility] Organism ENTEROCOCCUS FAECALIS [facility] Blood (Peripheral) 11/13/2024 2:19 PM CDT 11/13/2024 2:21 PM CDT Narrative [facility] - 11/17/2024 11:51 AM CDT From a [...] performance characteristics have been verified by the [facility] Microbiology Laboratory. For questions about this culture, contact the Microbiology Laboratory at [phone]. Interpretive data was last revised on 24. Organism Antibiotic Method Susceptibility Enterococcus faecalis Ampicillin (ELISABETH) INTERPRETATIO N Susceptible Enterococcus faecalis Vancomycin (ELISABETH) INTERPRETATIO N Susceptible Enterococcus faecalis High-Level Gentamicin (ELISABETH) INTE RPRETATION Susceptible Enterococcus faecalis Linezolid (ELISABETH) INTERPRETATIO N Susceptible Enterococcus faecalis Doxycycline (ELISABETH) INTERPRETATIO N Resistant Tiffanie Leah Grey MD LAB MICROBIOLOGY - G ENERAL ORDERABLES Final Result [facility] [place] [address] * (ABNORMAL) Blood culture Blood Peripheral (11/13/2024 2:19 PM CDT) Direct Specimen Exam Stain: Gram Positive Cocci in pairs and chains Time to culture positivity (aerobic media): 18.2 hours Time to culture positivity (anaerobic media): 18.2 hours Report Final Report: Enterococcus faecalis For susceptibility results, refer to accession number [id number] on the blood culture from 11/13/2024 (.) [facility] Organism ENTEROCOCCUS FAECALIS [facility] Blood (Peripheral) 11/13/2024 2:19 PM CDT 11/13/2024 2:21 PM CDT Narrative [facility] - 11/17/2024 11:51 AM CDT Draw Blood [...] performance characteristics have been verified by the [facility] Microbiology Laboratory. For questions about this culture, contact the Microbiology Laboratory at [phone]. Interpretive data was last revised on 24. Tiffanie Grey MD LAB MICROBIOLOGY - G ENERAL ORDERABLES Final Result [facility] [place] [address] * (ABNORMAL) Comprehensive metabolic panel (11/13/2024 2:19 PM CDT) Sodium 139 135 - 145 mmol/L Potassium, pl 3.9 3.3 - 4.9 mmol/L [facility] [facility] Chloride 102 97 - 110 mmol/L [facility] CO2 27 22 - 32 mmol/L [facility] Anion gap 10 2 - 15 mmol/L [facility] BUN 13 6 - 25 mg/dL [facility] Creatinine 1.42(H) 0.60 - 1.10 mg/dL [facility] Glucose 93 70 - 199 mg/dL [facility] Comment: Interpretive Data Fasting glucose >/= 126 [...] 2022. Calcium 9.5 8.5 - 10.3 mg/dL [facility] Bilirubin, total 0.2 0.1 - 1.2 mg/dL [facility] Protein, pl 8.3 6.5 - 8.5 g/dL [facility] Albumin 4.0 3.5 - 5.0 g/dL [facility] Alk phos 104 40 - 130 Units/L [facility] ALT 10 7 - 45 Units/L [facility] AST 18 10 - 45 Units/L [facility] Blood 11/13/2024 2:19 PM CDT 11/13/2024 2:21 PM CDT us Tiffanie Grey MD LAB BLOOD ORDERABLES Final Result [facility] [place] [address] * XR Chest PA Lateral 2 Views [...] images may or may not represent the [place] source data set and thus may contain changes that may lower the accuracy of this second-opinion interpretation. Electronically signed by: MD Patsy Durbin 11/13/2024 12:34 PM CDT EXAMINATION: RADIOLOGY CONSULTATION ON OUTSIDE IMAGING STUDY STUDY INITIALLY PERFORMED: 11/10/2024 at [facility]. TYPE OF STUDY: Multiple CT images [...] IMAGING STUDY STUDY INITIALLY PERFORMED: 11/10/2024 at [facility]. TYPE OF STUDY: Multiple CT images [...] images may or may not represent the [place] source data set and thus may contain changes that may lower the accuracy of this second-opinion interpretation. Electronically signed by: Valdemar Mcdowell MD Romeo Flower MD IMG CT PROCEDURES Final Resul t * Neuro CT Outside Reference (11/13/2024 12:13 PM CDT) Impressions [facility] - 11/13/2024 12:13 PM CDT These images are for Reference purposes only and have not been reviewed by [facility] Radiology. There will be no report generated by a [facility] Radiologist. Narrative [facility] - 11/13/2024 12:13 PM CDT EXAMINATION: Images For Reference Purposes Only Romeo Flower MD IMG CT PROCEDURES Final Resul t [facility] * Differential, auto (11/10/2024 2:46 PM CDT) Neutrophil abs 4.19 1.50 - 6.50 K/cumm Imm gran abs 0.02 0.00 - 0.10 K/cumm [facility] Lymphocyte abs 1.12 0.80 - 3.30 K/cumm [facility] Monocyte abs 0.32 0.20 - 0.80 K/cumm [facility] Eosinophil abs 0.15 0.00 - 0.50 K/cumm [facility] Basophil abs 0.05 0.00 - 0.10 K/cumm [facility] Neutrophil pct 71.6 % [facility] Comment: Interpretive Data Percent cell count reference ranges are not reported, since discordance with absolute values may lead to misinterpretation of CBC data. Current Interpretive Data was last revised on 2017. Imm gran pct 0.3 % [facility] Comment: Interpretive Data Percent cell count reference ranges are not reported, since discordance with absolute values may lead to misinterpretation of CBC data. Current Interpretive Data was last revised on 2017. Lymphocyte pct 19.1 % [facility] Comment: Interpretive Data Percent cell count reference ranges are not reported, since discordance with absolute values may lead to misinterpretation of CBC data. Current Interpretive Data was last revised on 2017. Monocyte pct 5.5 % [facility] Comment: Interpretive Data Percent cell count reference ranges are not reported, since discordance with absolute values may lead to misinterpretation of CBC data. Current Interpretive Data was last revised on 2017. Eosinophil pct 2.6 % [facility] Comment: Interpretive Data Percent cell count reference ranges are not reported, since discordance with absolute values may lead to misinterpretation of CBC data. Current Interpretive Data was last revised on 2017. Basophil pct 0.9 % [facility] Comment: Interpretive Data Percent cell count reference ranges are not reported, since discordance with absolute values may lead to misinterpretation of CBC data. Current Interpretive Data was last revised on 2017. Blood 11/10/2024 2:46 PM CDT 11/10/2024 9:09 PM CDT Sukhwinder Bruner MD LAB BLOOD ORDERABLES Final Result JUL[facility]NA [id number] [place] [address] * (ABNORMAL) Iron profile w/ IBC (11/10/2024 2:46 PM CDT) Iron 28(L) 35 - 145 mcg/dl TIBC 300 250 - 400 mcg/dL [facility] Transferrin saturation 9(L) 20 - 50 % [facility] Blood 11/10/2024 2:46 PM CDT 11/10/2024 9:09 PM CDT us Sukhwinder Bruner MD LAB BLOOD ORDERABLES Final Result JULIANA RODRIGUEZ [address] [place] [address] * (ABNORMAL) CBC with auto differential (11/10/2024 2:46 PM CDT) WBC 5.85 3.80 - 9.90 K/cumm Hgb 9.1(L) 11.9 - 15.5 g/dL [facility] Hct 30.9(L) 35.6 - 45.5 % [facility] Plt 225 150 - 400 K/cumm [facility] MPV 10.9 9.1 - 12.3 fL [facility] RBC 3.41(L) 3.90 - 5.20 M/cumm [facility] MCV 90.6 81.3 - 96.4 fL [facility] MCH 26.7(L) 27.1 - 33.3 pg [facility] MCHC 29.4(L) 32.3 - 35.7 g/dL [facility] RDW CV 14.5 11.1 - 14.9 % [facility] RDW SD 47.8 35.7 - 48.1 fL [facility] NRBC abs 0.00 0.00 - 0.01 K/cumm [facility] Blood 11/10/2024 2:46 PM CDT 11/10/2024 9:09 PM CDT Sukhwinder Bruner MD LAB BLOOD ORDERABLES Final Result JULIANA RODRIGUEZ [address] [email or web address] [address] * (ABNORMAL) Protime-INR (11/10/2024 2:46 PM CDT) PT 24.4(H) 9.7 - 13.0 sec INR 2.22(H) 0.90 - 1.20 [facility] Comment: Interpretive data Oral anticoagulant therapeutic ranges: Venous thromboembolism prophylaxis or treatment: 2.0-3.0 CARDIOLOGY Standard range: 2.0-3.0 High-intensity range: 2.5-3.5 Refer to indication-specific guidelines for appropriate target ranges for prosthetic heart valve replacement. Current interpretive data was last revised on 2019. Blood 11/10/2024 2:46 PM CDT 11/10/2024 9:09 PM CDT Blake Dee MD LAB BLOOD ORDERABLES Mirtha l Result Performing Organization Address [facility] de Phone Number [facility] [address] [facility] [address] ([employer]) [place] [address] * Ferritin (11/10/2024 2:46 PM CDT) Ferritin 113 15 - 150 ng/mL Blood 11/10/2024 2:46 PM CDT 11/10/2024 9:09 PM CDT Sukhwinder Bruner MD LAB BLOOD ORDERABLES Final Result Performing Organization Address [facility] de Phone Number [facility] [address] [facility] [address] ([employer]) [place] [address] * (ABNORMAL) Protime-INR (11/10/2024 1:42 PM CDT) PT 24.7(H) 9.7 - 13.0 sec INR 2.25(H) 0.90 - 1.20 [facility] Comment: Interpretive data Oral anticoagulant therapeutic ranges: Venous thromboembolism prophylaxis or treatment: 2.0-3.0 CARDIOLOGY Standard range: 2.0-3.0 High-intensity range: 2.5-3.5 Refer to indication-specific guidelines for appropriate target ranges for prosthetic heart valve replacement. Current interpretive data was last revised on 2019. Blood 11/10/2024 1:42 PM CDT 11/10/2024 9:09 PM CDT Blake Dee MD LAB BLOOD ORDERABLES Mirtha l Result Performing Organization Address [facility]/ZIP Co de Phone Number JULIANA RODRIGUEZ [address] [place] [address] * (ABNORMAL) eGFR (11/10/2024 1:38 PM CDT) Pathologist [facility] eGFR 48(L) >=60 mL/min/1. 73 m2 Comment: Interpretive Data [...] interpretive data was last reviewed 2021. Blood 11/10/2024 1:38 PM CDT 11/10/2024 9:29 PM CDT us Quirino Berger MD LAB BLOOD ORDERABLES Final Result [facility]NA RODRIGUEZ [address] [place] [address] * Differential, auto (11/10/2024 1:38 PM CDT) Neutrophil abs 4.22 1.50 - 6.50 K/cumm Imm gran abs 0.01 0.00 - 0.10 K/cumm [facility] Lymphocyte abs 1.04 0.80 - 3.30 K/cumm [facility] Monocyte abs 0.31 0.20 - 0.80 K/cumm [facility] Eosinophil abs 0.13 0.00 - 0.50 K/cumm [facility] Basophil abs 0.03 0.00 - 0.10 K/cumm [facility] Neutrophil pct 73.5 % [facility] Comment: Interpretive Data Percent cell count reference ranges are not reported, since discordance with absolute values may lead to misinterpretation of CBC data. Current Interpretive Data was last revised on 2017. Imm gran pct 0.2 % [facility] Comment: Interpretive Data Percent cell count reference ranges are not reported, since discordance with absolute values may lead to misinterpretation of CBC data. Current Interpretive Data was last revised on 2017. Lymphocyte pct 18.1 % [facility] Comment: Interpretive Data Percent cell count reference ranges are not reported, since discordance with absolute values may lead to misinterpretation of CBC data. Current Interpretive Data was last revised on 2017. Monocyte pct 5.4 % [facility] Comment: Interpretive Data Percent cell count reference ranges are not reported, since discordance with absolute values may lead to misinterpretation of CBC data. Current Interpretive Data was last revised on 2017. Eosinophil pct 2.3 % [facility] Comment: Interpretive Data Percent cell count reference ranges are not reported, since discordance with absolute values may lead to misinterpretation of CBC data. Current Interpretive Data was last revised on 2017. Basophil pct 0.5 % [facility] Comment: Interpretive Data Percent cell count reference ranges are not reported, since discordance with absolute values may lead to misinterpretation of CBC data. Current Interpretive Data was last revised on 2017. Blood 11/10/2024 1:38 PM CDT 11/10/2024 9:09 PM CDT us Quirino Berger MD LAB BLOOD ORDERABLES Final Result [facility] [address] [place] [address] * Thyroid Function [place] (11/10/2024 1:38 PM CDT) TSH 3.39 0.30 - 4.20 mcIUnit/mL Blood 11/10/2024 1:38 PM CDT 11/10/2024 9:09 PM CDT Quirino Berger MD LAB BLOOD ORDERABLES Final Result JULIANA RODRIGUEZ [address] Department of [employer] [place] [address] * (ABNORMAL) CBC with auto differential (11/10/2024 1:38 PM CDT) WBC 5.74 3.80 - 9.90 K/cumm Hgb 9.0(L) 11.9 - 15.5 g/dL [facility] Hct 31.3(L) 35.6 - 45.5 % [facility] Plt 227 150 - 400 K/cumm [facility] MPV 11.4 9.1 - 12.3 fL [facility] RBC 3.47(L) 3.90 - 5.20 M/cumm [facility] MCV 90.2 81.3 - 96.4 fL [facility] MCH 25.9(L) 27.1 - 33.3 pg [facility] MCHC 28.8(L) 32.3 - 35.7 g/dL [facility] RDW CV 14.4 11.1 - 14.9 % [facility] RDW SD 47.2 35.7 - 48.1 fL [facility] NRBC abs 0.00 0.00 - 0.01 K/cumm [facility] Blood 11/10/2024 1:38 PM CDT 11/10/2024 9:09 PM CDT Quirino Berger MD LAB BLOOD ORDERABLES Final Result JULIANA RODRIGUEZ [address] Department of [address] [employer]) [place], [place] [id number] * Vitamin D 25 hydroxy (11/10/2024 1:38 PM CDT) Pathologist [facility] Vitamin D 25-OH 31 30 - 80 ng/mL Blood 11/10/2024 1:38 PM CDT 11/10/2024 9:09 PM CDT Quirino Berger MD LAB BLOOD ORDERABLES Final Result JUL[facility]NA [address] [facility] [place] [address] * Lipid panel (11/10/2024 1:38 PM CDT) Cholesterol 108 30 - 199 mg/dL Comment: Interpretive Data Ages < or = 19 years Acceptable: <170 mg/dL Borderline high: 170-199 mg/dL High: >or= 200 mg/dL Ages > or = 20 years Desirable: <200 mg/dL Borderline high: 200-239 mg/dL High: >or= 240 mg/dL Literature References: 1. Expert Panel on Integrated Guidelines for Cardiovascular Health and Risk Reduction in Children and Adolescents. Pediatrics 2011;128:S213 2. NCEP Expert Panel. Circulation 2004;110:227 Current Interpretive Data was last revised on 2018. Triglycerides 112 <=149 mg/dL [facility]ODRIG[facility] Comment: Interpretive Data Ages < or = 9 years Acceptable: <75 mg/dL Borderline high: 75-99 mg/dL High: >or= 100 mg/dL Ages 10 to 20 years Acceptable: <90 mg/dL Borderline high: 90-129 mg/dL High: >or= 130 mg/dL Ages > or = 20 years Desirable: <150 mg/dL Borderline high: 150-199 mg/dL High: 200-499 mg/dL Very high: >or= 499 mg/dL Literature References: 1. Expert Panel on Integrated Guidelines for Cardiovascular Health and Risk Reduction in Children and Adolescents. Pediatrics 2011;128:S213 2. NCEP Expert Panel. Circulation 2004;110:227 Current Interpretive Data was last revised on 2018. HDL 41 >=40 mg/dL [facility] Comment: Interpretive Data Ages < or = 19 years Acceptable: >45 mg/dL Borderline low: 40-45 mg/dL Low: <40 mg/dL Ages > or = 20 years Desirable: >or= 60 mg/dL Low: <40 mg/dL Literature References: 1. Expert Panel on Integrated Guidelines for Cardiovascular Health and Risk Reduction in Children and Adolescents. Pediatrics 2011;128:S213 2. NCEP Expert Panel. Circulation 2004;110:227 Current Interpretive Data was last revised on 2018. LDL, calculated 46 <=129 mg/dL [facility] RODR[facility] Comment: Interpretive Data Ages < or = 19 years Acceptable: <110 mg/dL Borderline high: 110-129 mg/dL High: >or= 130 mg/dL Ages > or = 20 years Optimal: <100 mg/dL Near optimal: 100-129 mg/dL Borderline high: 130-159 mg/dL High: >160 mg/dL Calculated using the Manan LDL-C estimating equation. This equation was implemented on 2024. Prior to this date LDL-C was estimated using the Friedewald equation. Literature References: 1. Expert Panel on Integrated Guidelines for Cardiovascular Health and Risk Reduction in Children and Adolescents. Pediatrics 2011;128:S213 2. NCEP Expert Panel. Circulation 2004;110:227 3. Manan Moon et al. BRIDGET Cardiol. 2019November 06;5(5):540-548. doi: 10.1001/[email or web address].2020.0013 Current Interpretive Data was last revised on 2024. Non-HDL Cholesterol 67 mg/dL [facility] Comment: Interpretive Data Ages < or = 19 years Acceptable: <120 mg/dL Borderline high: 120-144 mg/dL High: >145 mg/dL Ages > or = 20 years When triglycerides are >200 mg/dL, Non-HDL cholesterol is a secondary target of therapy with treatment goals that are 30 mg/dL greater than the LDL cholesterol target. Literature References: 1. Expert Panel on Integrated Guidelines for Cardiovascular Health and Risk Reduction in Children and Adolescents. Pediatrics 2011;128:S213 2. NCEP Expert Panel. Circulation 2004;110:227 Current Interpretive Data was last revised on 2018. Chol/HDL ratio 3 [facility] RODR[facility] Blood 11/10/2024 1:38 PM CDT 11/10/2024 9:09 PM CDT us Quirino Berger MD LAB BLOOD ORDERABLES Final Result [facility] [address] [place] [address] * (ABNORMAL) Comprehensive metabolic panel (11/10/2024 1:38 PM CDT) Sodium 138 135 - 145 mmol/L Potassium, pl 4.3 3.3 - 4.9 mmol/L [facility] Chloride 101 97 - 110 mmol/L [facility] CO2 27 22 - 32 mmol/L [facility] Anion gap 10 2 - 15 mmol/L [facility] BUN 13 6 - 25 mg/dL [facility] Creatinine 1.24(H) 0.60 - 1.10 mg/dL [facility] Glucose 84 70 - 199 mg/dL [facility] Comment: Interpretive Data Fasting glucose >/= 126 [...] 2022. Calcium 9.6 8.5 - 10.3 mg/dL [facility] Bilirubin, total 0.2 0.1 - 1.2 mg/dL [facility] Protein, pl 8.2 6.5 - 8.5 g/dL [facility] Albumin 4.1 3.5 - 5.0 g/dL [facility] Alk phos 97 40 - 130 Units/L [facility] ALT 7 7 - 45 Units/L [facility] AST 25 10 - 45 Units/L [facility] Blood 11/10/2024 1:38 PM CDT 11/10/2024 9:09 PM CDT us Quirino Berger MD LAB BLOOD ORDERABLES Final Result JULIANA RODRIGUEZ [address] [place] [address] * CT Thoracic Spine WO Contrast (11/10/2024 7:56 AM CDT) Anatomical Region Laterality Modality Spine N/A Computed Tomogra phy us Historical Provider MD [facility]GO CT PROCEDURES Final R esult * (ABNORMAL) eGFR (10/21/2024 12:00 PM CDT) eGFR 34(L) >=60 mL/min/1. 73 m2 Comment: [...] interpretive data was last reviewed 2021. Blood 10/21/2024 12:0 0 PM CDT 10/21/2024 9:20 PM CDT Result [facility] Sukhwinder Bruner MD LAB BLOOD ORDERABLES Final Result [facility] [address] [place] [address] * (ABNORMAL) Iron profile w/ IBC (10/21/2024 12:00 PM CDT) Iron 27(L) 35 - 145 mcg/dl TIBC 290 250 - 400 mcg/dL [facility] RODRIG[facility] Transferrin saturation 9(L) 20 - 50 % [facility] RODRIGUEZ Blood 10/21/2024 12:0 0 PM CDT 10/21/2024 9:11 PM CDT Result [facility] Sukhwinder Bruner MD LAB BLOOD ORDERABLES Final Result JULIANA RODRIGUEZ [address] [facility] [address] ([employer]) [place] [address] * (ABNORMAL) Hemoglobin and hematocrit (10/21/2024 12:00 PM CDT) Pathologist [facility] Hgb 9.6(L) 11.9 - 15.5 g/dL Hct 32.9(L) 35.6 - 45.5 % [facility] Blood 10/21/2024 12:0 0 PM CDT 10/21/2024 9:11 PM CDT Sukhwinder Bruner MD LAB BLOOD ORDERABLES Final Result Performing Organization Address [facility] de Phone Number JULIANA RODRIGUEZ [address] [facility] [address] ([employer]) [place] [address] * (ABNORMAL) Protime-INR (10/21/2024 12:00 PM CDT) Pathologist [facility] PT 53.0(H) 9.7 - 13.0 sec INR 4.75(H) 0.90 - 1.20 [facility] Comment: Interpretive data Oral anticoagulant therapeutic ranges: Venous thromboembolism prophylaxis or treatment: 2.0-3.0 CARDIOLOGY Standard range: 2.0-3.0 High-intensity range: 2.5-3.5 Refer to indication-specific guidelines for appropriate target ranges for prosthetic heart valve replacement. Current interpretive data was last revised on 2019. Blood 10/21/2024 12:0 0 PM CDT 10/21/2024 9:16 PM CDT Blake Dee MD LAB BLOOD ORDERABLES Mirtha l Result Performing Organization Address [facility] Co de Phone Number JULIANA RODRIGUEZ [address] [facility] [address] ([employer]) [place], [place] [id number] * (ABNORMAL) Lactate dehydrogenase (LD) (10/21/2024 12:00 PM CDT) Pathologist [facility] Lactate dehydrogenase (LDH) 261(H) 100 - 250 Units/L Blood 10/21/2024 12:0 0 PM CDT 10/21/2024 9:11 PM CDT us Sukhwinder Bruner MD LAB BLOOD ORDERABLES Final Result JULIANA RODRIGUEZ [address] [facility] [address] ([employer]) [place] [address] * Haptoglobin (10/21/2024 12:00 PM CDT) Haptoglobin 159 30 - 200 mg/dL Blood 10/21/2024 12:0 0 PM CDT 10/21/2024 9:11 PM CDT us Sukhwinder Bruner MD LAB BLOOD ORDERABLES Final Result Performing Organization Address [facility] de Phone Number JULIANA RODRIGUEZ [address] [facility] [address] ([employer]) [place] [address] * (ABNORMAL) Basic metabolic panel (10/21/2024 12:00 PM CDT) Sodium 139 135 - 145 mmol/L Potassium, pl 4.3 3.3 - 4.9 mmol/L [facility] Chloride 102 97 - 110 mmol/L [facility] CO2 26 22 - 32 mmol/L [facility] Anion gap 11 2 - 15 mmol/L [facility] BUN 17 6 - 25 mg/dL [facility] Creatinine 1.66(H) 0.60 - 1.10 mg/dL [facility] Glucose 91 70 - 199 mg/dL [facility] Comment: Interpretive Data Fasting [...] interpretive data was last revised 2022. Calcium 10.0 8.5 - 10.3 mg/dL [facility] Blood 10/21/2024 12:0 0 PM CDT 10/21/2024 9:11 PM CDT Sukhwinder Bruner MD LAB BLOOD ORDERABLES Final Result JULIANA [address] [place] [address] * DEVICE CHECK - IN OFFICE (10/14/2024 10:44 AM CDT) Anatomical Region Laterality Modality Other Narrative 10/14/2024 3:13 PM CDT [employer] BIV Pacemaker. Dx; CM, CHF, LBBB, PAF. DOI 09/26/2023-[facility]. Chronic leads 08/16/2015-[place]. [place] remote transfer requested. Device is NOT MRI compatible-confirmed 09/15/21. Dr. Nelly VELÁSQUEZ at [facility]. Aug 2015. Supervising MD: Staci Office DDDR Pacemaker evaluation demonstrated appropriate device function. Left pectoral incision well healed without signs of infection noted. Battery function: 2.98 V, 5.4-5.9 years remaining battery life to LETICIA. Appropriate lead measurements noted. Presenting rhythm- AP/BP Underlying rhythm- NSR AP- 91%,BIVP- > 99% 5 Atrial high rate episodes noted. AFib burden < 1% 0 Ventricular high rate episodes noted. Multiple alert however for consecutive PVCs. Most recent alert from 10/14/24 [facility] demonstrates 4 PVCs in a row. Medications; Coumadin, ASA 81 mg, carvedilol 12.5 mg No programming changes made to device settings. See scanned report. Office device f/u 11/18/25 [place] remote f/u 01/13/25 Vitaliy Hogue, RN Blake Dee MD [facility] Final Result * (ABNORMAL) eGFR (09/23/2024 1:13 PM CDT) eGFR 40(L) >=60 mL/min/1. 73 m2 [...] interpretive data was last reviewed 2021. Blood 09/23/2024 1:13 PM CDT 09/23/2024 9:40 PM CDT Sukhwinder Bruner MD LAB BLOOD ORDERABLES Final Result [facility] [address] [place] [address] * Differential, auto (09/23/2024 1:13 PM CDT) Pathologist [facility] Neutrophil abs 4.5 1.5 - 6.5 K/cumm Imm gran abs 0.0 0.0 - 0.1 K/cumm [facility] Lymphocyte abs 1.2 0.8 - 3.3 K/cumm [facility] Monocyte abs 0.4 0.2 - 0.8 K/cumm [facility] Eosinophil abs 0.2 0.0 - 0.5 K/cumm [facility] Basophil abs 0.1 0.0 - 0.1 K/cumm [facility] Neutrophil pct 71.2 % [facility] Comment: Interpretive Data Percent cell count reference ranges are not reported, since discordance with absolute values may lead to misinterpretation of CBC data. Current Interpretive Data was last revised on 2017. Imm gran pct 0.3 % [facility] Comment: Interpretive Data Percent cell count reference ranges are not reported, since discordance with absolute values may lead to misinterpretation of CBC data. Current Interpretive Data was last revised on 2017. Lymphocyte pct 18.9 % [facility] Comment: Interpretive Data Percent cell count reference ranges are not reported, since discordance with absolute values may lead to misinterpretation of CBC data. Current Interpretive Data was last revised on 2017. Monocyte pct 6.0 % [facility] Comment: Interpretive Data Percent cell count reference ranges are not reported, since discordance with absolute values may lead to misinterpretation of CBC data. Current Interpretive Data was last revised on 2017. Eosinophil pct 2.8 % [facility] Comment: Interpretive Data Percent cell count reference ranges are not reported, since discordance with absolute values may lead to misinterpretation of CBC data. Current Interpretive Data was last revised on 2017. Basophil pct 0.8 % [facility] Comment: Interpretive Data Percent cell count reference ranges are not reported, since discordance with absolute values may lead to misinterpretation of CBC data. Current Interpretive Data was last revised on 2017. Blood 09/23/2024 1:13 PM CDT 09/23/2024 9:32 PM CDT Sukhwinder Bruner MD LAB BLOOD ORDERABLES Final Result [facility] [address] [place] [address] * Urinalysis reflex to microscopic and culture Urine, clean voided (09/23/2024 1:13 PM CDT) Color, ur Yellow Yellow Clarity, ur Clear Clear [facility] Specific gravity, ur 1.026 1.003 - 1.030 [facility] pH, urine 5.5 [facility] Comment: Interpretive Data U rine pH is affected by diet, medications, systemic acid-base disturbances, and renal tubular function. pH may affect urinary stone formation. For example, urine pH below 6.0 may help reduce the tendency for calcium phosphate stones and pH greater than 6.0 may reduce the tendency for uric acid stone formation. Source: [facility] Current Interpretive Data was last revised on 2017 Protein, ur ql Trace Negative [facility] CH Glucose, ur ql Negative Negative [facility] CH Ketones, ur Negative Negative [facility] CH Bilirubin, ur Negative Negative [facility] CH Blood, ur Negative Negative [facility] CH Urobilinogen, ur <2.0 <2.0 mg/dL [facility] Nitrite, ur Negative Negative [facility] CH Leukocyte esterase, ur Negative Negative [facility] CH UA reflex comment Reflex conditions for microscopic UA and culture not met. [facility] Urine, clean voided 09/23/2024 1:13 PM CDT 09/23/2024 9:32 PM CDT Sukhwinder Bruner MD LAB MICROBIOLOGY - GENERAL ORDERABLES Final Result [facility] [address] [place] [address] * (ABNORMAL) CBC with auto differential (09/23/2024 1:13 PM CDT) WBC 6.4 3.8 - 9.9 K/cumm Hgb 9.4(L) 11.9 - 15.5 g/dL CERNER Hct 32.5(L) 35.6 - 45.5 % [facility] Plt 215 150 - 400 K/[facility]umm [facility] 12.2 9.1 - 12.3 fL [facility] RBC 3.40(L) 3.90 - 5.20 M/cumm [facility] MCV 95.6 81.3 - 96.4 fL [facility] MCH 27.6 27.1 - 33.3 pg CERNER MCHC 28.9(L) 32.3 - 35.7 g/dL [facility] RDW CV 15.0(H) 11.1 - 14.9 % [facility]ERNER CH RDW SD 52.5(H) 35.7 - 48.1 fL [facility] NRBC abs 0.00 0.00 - 0.01 K/cumm [facility] Blood 09/23/2024 1:13 PM CDT 09/23/2024 9:32 PM CDT Sukhwinder Bruner MD LAB BLOOD ORDERABLES Final Result Performing Organization Address [facility] Co de Phone Number [facility] [address] [facility] [address] ([employer]) [place] [address] * Protein / creatinine ratio, urine, random (09/23/2024 1:13 PM CDT) Pathologist [facility] Protein, ur, quant 24.0 mg/dL Comment: Interpretive Data No reference range established. Current interpretive data was last revised 2018. Creatinine Ur 187.9 mg/dL JULIANA Comment: Interpretive Data No reference range established. Current interpretive data was last revised 2018. Protein/creatinin e ratio 127.7 0.0 - 180.0 mg/g CR [facility] Urine 09/23/2024 1:13 PM CDT 09/23/2024 9:32 PM CDT Sukhwinder Bruner MD LAB URINE ORDERABLES Final Result Performing Organization Address [facility] de Phone Number MICHELLEMARIE [address] [place] [address] * (ABNORMAL) Vitamin D 25 hydroxy (09/23/2024 1:13 PM CDT) Pathologist [facility] Vitamin D 25-OH 24(L) 30 - 80 ng/mL Blood 09/23/2024 1:13 PM CDT 09/23/2024 9:32 PM CDT Sukhwinder Bruner MD LAB BLOOD ORDERABLES Final Result Performing Organization Address [facility] Co de Phone Number [facility] [address] [facility] [address] ([employer]) [place] [address] * (ABNORMAL) Protime-INR (09/23/2024 1:13 PM CDT) Pathologist [facility] PT 31.0(H) 9.7 - 13.0 sec INR 2.81(H) 0.90 - 1.20 [facility] Comment: Interpretive data Oral anticoagulant therapeutic ranges: Venous thromboembolism prophylaxis or treatment: 2.0-3.0 CARDIOLOGY Standard range: 2.0-3.0 High-intensity range: 2.5-3.5 Refer to indication-specific guidelines for appropriate target ranges for prosthetic heart valve replacement. Current interpretive data was last revised on 2019. Blood 09/23/2024 1:13 PM CDT 09/23/2024 9:31 PM CDT Blake Dee MD LAB BLOOD ORDERABLES Mirtha l Result Performing Organization Address City/[facility]/ZIP Co de Phone Number [facility] [address] Department [email or web address] [place], [place] [id number] * (ABNORMAL) PTH (09/23/2024 1:13 PM CDT) Pathologist [facility] PTH 91(H) 15 - 65 pg/mL Blood 09/23/2024 1:13 PM CDT 09/23/2024 9:32 PM CDT Sukhwinder Bruner MD LAB BLOOD ORDERABLES Final Result Performing Organization Address [facility] Co de Phone Number [facility] [address] Department [employer] [employer]) [place], [place] [id number] * (ABNORMAL) Renal function panel (09/23/2024 1:13 PM CDT) Pathologist [facility] Sodium 139 135 - 145 mmol/L Potassium, pl 4.8 3.3 - 4.9 mmol/L [facility] Chloride 103 97 - 110 mmol/L [facility] CO2 24 22 - 32 mmol/L [facility] Anion gap 12 2 - 15 mmol/L [facility] BUN 21 6 - 25 mg/dL [facility] Creatinine 1.43(H) 0.60 - 1.10 mg/dL [facility] Glucose 85 70 - 199 mg/dL [facility] Comment: Interpretive Data Fasting [...] 2022. Calcium 9.5 8.5 - 10.3 mg/dL [facility] Phosphorus, pl 3.6 2.3 - 4.5 mg/dL [facility] Albumin 4.0 3.5 - 5.0 g/dL [facility] Blood 09/23/2024 1:13 PM CDT 09/23/2024 9:32 PM CDT Sukhwinder Bruner MD LAB BLOOD ORDERABLES Final Result Performing Organization Address City/State/[facility] Co de Phone Number JULIANA [address] [place] [address] * SCREENING MAMMOGRAM BILATERAL W JAMEL (07/17/2023 12:59 PM TURF KEEPER) Anatomical Region Laterality Modality Breast Bilateral Mammography 07/17/2023 1:17 PM TURF KEEPER Impressions 07/17/2023 1:17 PM TURF KEEPER There is no mammographic evidence of malignancy. A 1 year screening mammogram is recommended. BI-RADS: 2 - Benign. The patient has been or will be contacted. The patient will be entered into a reminder system with a target due date of 1 year for her next mammogram. Electronically signed by: TREVA FIGUEROA Narrative 07/17/2023 1:17 PM TURF KEEPER EXAMINATION: SCREENING MAMMOGRAM BILATERAL W JAMEL ORDERING [...] suspicious finding in either breast on mammogram. Quirino Berger MD IMG MAMMO PROCEDURES Final Result * Dexa Axial Skeleton Bone Density 1 Or 2 Site (08/30/2021 10:30 AM TURF KEEPER) Anatomical Region Laterality Modality Body N/A Other 08/30/2021 10:5 2 AM TURF KEEPER Narrative 08/30/2021 10:53 AM TURF KEEPER EXAM DESCRIPTION: DEXA AXIAL SKELETON BONE DENSITY 1 OR MORE SITES REASON FOR STUDY: 66 y/o year old F with given history of screening. 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 TB: TB Report ID: [id number] Reading Location: [facility] Procedure Note Lisa Vann MD - 08/30/2021 EXAM DESCRIPTION: DEXA AXIAL SKELETON BONE DENSITY 1 OR MORE SITES REASON FOR STUDY: 66 y/o year old F with given history ofscreening. 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 TB: TB Report ID: [id number] Reading Location: [facility] Quirino Berger MD IMG DXA PROCEDURES Final Re sult * Hepatitis C antibody (08/17/2021 3:29 PM TURF KEEPER) Hep C Ab Nonreactive Nonreactive JULIANA RODRIGUEZ [...] revised on 2019. 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 Advance Directives and Livin g Will 11/26/2021 11:49 AM * Full Code (Latest Code Status on File) Date Activated Date Inactivated Comments 11/13/2024 4:33 PM 12/02/2024 6:06 PM * LIMITED - No CPR Date Activated Date Inactivated Comments 12/07/2021 5:09 PM 12/22/2021 1:47 PM * LIMITED - PEDIATRICS Date Activated Date Inactivated Comments 12/07/2021 3:31 PM 12/07/2021 5:09 PM Question Answer Comments Restrictions: No chest compression sNo cardioversion / defibrillation Discussed with the following attending physician: Jorge Luis * Full Code Date Activated Date Inactivated Comments 11/22/2021 11:00 PM 12/07/2021 3:31 PM 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
--- OUTSIDE RECORDS SUMMARY | 2024-12-04 00:03 | XMS_ITS | Clinical Summary ---
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 2024 Active LORazepam (ATIVAN) 0.5 mg tablet [...] 11/16 - Started Amp (11/14-) and Ceftriaxone (11/14) - MSK Bx with IR on 11/17, [...] cor compression (MRI report) - Hold warfarin (5-) -> heparin gtt (11/11 - 11/25) suspected [...] - Hold warfarin (5/6-) -> heparin gtt (11/11 - 11/25) suspected [...] 11/17. - NSGY following - Hold warfarin (5/-) -> heparin gtt for 11/17 IR bx [...] possible procedure on Sunday - Hold warfarin (5/6-) -> heparin gtt until procedures are done [...] 05/09 Assessment & Plan (05/28/2024 1:10 PM ATTENDANT HONOR BAR): A(n) initial well visit to establish care [...] year Assessment & Plan (05/21/2023 3:45 PM ATTENDANT HONOR BAR): A(n) yearly Medicare Annual Wellness Visit has [...] 11:45 AM CDT): Will decrease furosemide to [id number]-[id number]-[id number] dosing given the downward drift on the renal function Replacing pantoprazole with famotidine for the same reason Monitor BP, the amlodipine has bene stopped, carvedilol recently increase Continuing current regimen overall Discussed improving hydration Referral to kidney doctor ordered Nausea and vomiting 07/25/2022 Assessment & Plan (07/25/2022 1:31 PM ATTENDANT HONOR BAR): Try stop cannabis HS Also try benadryl HS Report back by phone At risk for amiodarone toxicity with long term acute care registered nurse u se 07/21/2022 Insomnia due to medical [...] 1 03/16/2022 S/P mitral valve repair 03/03/2022 meterman (current) use of anticoagulants 2021 Aftercare following [...] Dr. Gomes or Katerine at [facility] May add meal supplement 1 [...] breath 08/08/2021 Coronary artery disease invo lving [place] coronary artery of [place] heart without angina pectoris 08/08/2021 Chronic anticoagulation 08/08/2021 Ankle swelling 02/16/2021 Acute urinary tract infection 12/16/2020 Dehydration 12/15/2020 Incomplete emptying of bladder 12/15/2020 Smoker 08/03/2020 Smokers' cough 07/30/2020 Osteoarthritis of right knee 06/11/2019 Overview (08/01/2021): Dr. River at [facility], ortho Dr. Parks ortho 2017 Arthritis of knee 06/10/2019 Anxiety 01/24/2019 Overview (08/01/2021): Alejandrapar she didn't like. Paroxysmal atrial fibrillation 01/15/2019 Overview (06/21/2022): Last Assessment & Plan: On Eliquis Aortic valve replaced 11/14/2018 Overview (08/01/2021): 12/[address] surgeon at [facility]. Spondylosis of lumbar region without myelopathy or radiculopathy 11/30/2015 Overview (08/01/2021): X-ray 11/2015 Essential hypertension 10/20/2015 Status post biventricular pacemaker 10/20/2015 Overview (10/04/2023): Castrejon Quadra Allure BIV Pacemaker. Dx; CM, CHF, LBBB, PAF. DOI 09/26/2023- [facility]. Chronic leads 08/16/2015-[place]. [place] remote transfer requested. Device is NOT MRI compatible-confirmed 09/15/21. Dr. Villegas EP at [facility]. Aug 2015. Osteopenia 01/29/2015 Overview (08/01/2021): DEXA 01/2015 CHF (congestive heart failure), NYHA class III 0 12/25/2012 Overview (08/01/2021): ECHO 05/2014 EF about 40% EF about 65% 2016 [address] Dr. Wahl at [facility]. Last Assessment & Plan: Status: Stable Interim History: No weight gain or any other symptoms. Continue present treatment. Pulmonary HTN 11/18/2012 Overview (08/01/2021): Sandy documentation seen on ECHO. Pulmonary nodule, left 11/18/2012 Overview (08/01/2021): Left lower per Sandy documentation. S/P cholecystectomy 11/18/2012 S/P hysterectomy with oophorectomy 11/18/2012 Overview (08/01/2021): Per Sandy. Chronic pain 12/06/2011 GERD (gastroesophageal reflux disease) 2 Depression 10/26/2011 Overview (08/01/2021): Last Assessment & Plan: Status: Stable Interim History: Mood 5-12/16. Not suicidal or homicidal. Will adjust med's today. Discussed grieving counseling in detail. Patient will call [facility] and get it. Recheck in 2 weeks. 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 BP is controlled Purchaser appointment next week. 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 Nonrheumatic mitral valve regurgitation 11/18/2012 12/20/2021 Overview (08/01/2021): Emilie at [facility] handtools repairer. Message from [employer] sent at 11/15/2018 4:29 PM [facility] ----- Wa Dr. Farnsworth. Just FYPaulino regarding my hospital visit, I have an appointment with Dr. Luke rodriguez at [facility] on This Sunday for my TAVR work up. Last Assessment & Plan: Status: Stable Interim History: Positive murmur but no symptoms at present. Continue with present treatment. Biventricular heart failure 11/18/2012 12/20/2021 Assessment & Plan (12/14/2021 8:07 AM CDT): S/p CABG, MVR Encounters Date Type Department Care Team Description 5 Documentation [facility] [address] [place] [address] Abigail Rodriguez [facility] 5 Orders Only [facility] Cardiology [address] [place] [address] Advanced Medicine 8th [place] [address] [place] [address] Sameer La MD PhD 5 Orders Only [facility] Cardiology [address] [place] [address] Medicine 8th [place] [address] [place] [address] Sameer La MD PhD Chronic diastolic congestive heart failure, NYHA class 3 (HCC) (Primary Dx) 5 Telephone [facility] Cardiology [address] [place] [address] Advanced Medicine 8th [place] [address] [place] [address] Sameer La MD PhD 5 Documentation [facility] Infectious Diseases [address] [place] [address] [address] [place] [address] Cielo Soler, JULIETA OPAT Sign-Off 5 6:44 PM CDT Anesthesia Event [facility] Operating Room 1 [place] [phone] Shai Mercado MD PhD Marilu Kirkland NP 5 6:40 PM CDT Ancillary Procedure [facility] Operating Room 1 [place] [address] 5 2:50 PM CDT - 5 6:00 PM CDT Surgery [facility] Operating Room 1 [place] [phone] Milad Rg MD REMOVAL PACEMAKER GENERATOR/LEADS 5 Telephone [facility] Primary Care at [address] [phone] Quirino Berger MD LINDA Questions 5 12:43 PM CDT Anesthesia Event [facility] [address] [place] [phone] Ector Anderson MD [place], Robert Young, CRNA 5 Orders Only [facility] Neuro Interventional Radiology [address] [place] [phone] Alissa Cho, MARIA DE JESUS 5 Orders Only [facility] Neuro Interventional Radiology [address] [place] [address] Jing Mireles, MARIA DE JESUS 5 Orders Only [facility] Neuro Interventional Radiology [address] [place] [phone] George Figureoa, MARIA DE JESUS 5 12:47 PM CDT - 5 1:42 PM CDT Hospital Encounter [address] [phone] Javier Bryant MD Martin, Nathan R., MD Lee, MD Jose Juan Wilkerson, MD Juan More, Brittney Peñaloza MD Chronic midline thoracic back pain (Primary Dx); Bacteremia due to Enterococcus Discharge Disposition: Discharge to SNF 5 9:45 AM CDT Office Visit [facility] [address] [facility] [address] [place] [address] Romeo Flower MD Osteomyelitis of thoracic region (HCC) [M46.24] (Primary Dx) 5 Orders Only [facility] Neuro Interventional Radiology 1 [place] [address] Ange Ro, MARIA DE JESUS 5 Orders Only [facility] Radiology 1 [place] [address] Akshat Turner RN 5 Telephone [facility] [address] [facility] [address] [place] [address] Kendrick Bo 5 Results Follow-Up [facility] Nephrology at [address] [place] [address] Sukhwinder Bruner MD CBC with auto differential, Iron profile w/ IBC, Ferritin, Differential, auto 5 Results Follow-Up [facility] Primary Care at [address] [phone] Quirino Berger MD Thyroid Function Stanley, Vitamin D 25 hydroxy, Lipid panel, Additional followed-up results: 4 5 Anticoagulation Visit [facility] Group Cardiology [address] [place] [address] Shraddha Hebert RN senior living (current) use of anticoagulants (Primary Dx); Atrial fibrillation, unspecified type (HCC) 5 2:46 PM CDT - 5 11:59 PM CDT Hospital Encounter [address] [address] Status post mechanical aortic valve replacement; Paroxysmal atrial fibrillation (HCC); Chronic anticoagulation; Stage 3b chronic kidney disease (HCC); Anemia in stage 3b chronic kidney disease (HCC) Discharge Disposition: Discharge to home or self care 5 1:42 PM CDT - 5 11:59 PM CDT Hospital Encounter [address] [address] Status post mechanical aortic valve replacement; Paroxysmal atrial fibrillation (HCC); Chronic anticoagulation Discharge Disposition: Discharge to home or self care 5 1:38 PM CDT - 5 11:59 PM CDT Hospital Encounter [address] [id number] Essential hypertension; Stage 3a chronic kidney disease (HCC); Vitamin D deficiency; Mixed hyperlipidemia; Gastroesophageal reflux disease without esophagitis Discharge Disposition: Discharge to home or self care 5 1:30 PM CDT Lab [facility] Outpatient Lab at [address] [phone] 5 Orders Only [facility] Primary Care at [address] [phone] Darling Fry NP 5 Results Follow-Up [facility] Nephrology at [address] [facility] [place] [address] Sukhwinder Bruner MD Basic metabolic panel, Haptoglobin, Hemoglobin and hematocrit, Additional followed-up results: 3 5 Anticoagulation Visit [facility] Cardiology [address] [facility] [address] [place] [address] Denisse Hsu RN meterman (current) use of anticoagulants (Primary Dx); Atrial fibrillation, unspecified type (HCC) 5 9:13 PM CDT - 5 11:59 PM CDT Hospital Encounter [address] [phone] Status post mechanical aortic valve replacement; Paroxysmal atrial fibrillation (HCC); Chronic anticoagulation Discharge Disposition: Discharge to home or self care 5 3:30 PM CDT Lab [facility] Outpatient Lab at [address] [phone] Chronic anticoagulation (Primary Dx) 5 3:21 PM CDT - 5 11:59 PM CDT Hospital Encounter [address] [phone] Anemia in stage 3b chronic kidney disease (HCC); Secondary hyperparathyroidism Discharge Disposition: Discharge to home or self care 5 11:00 AM CDT Ancillary Procedure [facility] Cardiology [address] [email or web address] [address] [place] [address] Chronic diastolic congestive heart failure, NYHA class 3 (HCC) (Primary Dx); H/O cardiomyopathy; LBBB (left bundle branch block); Atrial fibrillation, unspecified type (HCC); Chronic heart failure with preserved ejection fraction (HCC); Status post biventricular pacemaker 5 Results Follow-Up [facility] Nephrology at [address] [facility] [place] [address] Blake Piper MD CBC with auto differential, Vitamin D 25 hydroxy, Renal function panel, Additional followed-up results: 5 5 Anticoagulation Visit [facility] Cardiology [address] [facility] [[email or web address] [address] [place] [phone] Shraddha Hebert RN meterman (current) use of anticoagulants (Primary Dx); Atrial fibrillation, unspecified type (HCC) 5 1:15 PM CDT Lab [facility] Outpatient Lab at [address] [phone] Atrial fibrillation (HCC) (Primary Dx) 5 1:13 PM CDT - 5 11:59 PM CDT Hospital Encounter [address] [address] Stage 3b chronic kidney disease (HCC) Discharge Disposition: Discharge to home or self care 5 1:13 PM CDT - 5 11:59 PM CDT Hospital Encounter [address] [address] Status post mechanical aortic valve replacement; Paroxysmal atrial fibrillation (HCC); Chronic anticoagulation Discharge Disposition: Discharge to home or self care 5 Telephone [facility] Primary Care at [address] [phone] Quirino Berger MD 5 10:30 AM CDT Office Visit [facility] Nephrology at [address] [place] [phone] Sukhwinder Bruner MD Essential hypertension (Primary Dx); Stage 3b chronic kidney disease (HCC); Aortic valve replaced; Chronic heart failure with preserved ejection fraction (HCC); Secondary hyperparathyroidism; Anemia in stage 3b chronic kidney disease (HCC) 5 Telephone [facility] Primary Care at [address] [phone] Quirino Berger MD Pa for Cyclobenzaprine HCl 5MG tablets from Last 3 Months Immunizations Immunization Administration [...] - 07/08/2019 21mm Inspiris CARDIAC VALVE REPLACEMENT 2019 BIOPSY DEEP BONE 11/17/2024 N/A CARDIAC PACEMAKER REMOVAL 11/25/2024 Medical History Medical History Date Comments Depression Hypertension Broken heart syndrome Hyperlipidemia 10/26/2011 Formatting of th is note might be different from the original. Sandy wants her on Lipitor 40mg qhs Last Assessment & Plan: Status: Stable Interim History: No myalgias. Patient on Lipitor 40 mg qd. Recheck in 3 months labs. LBBB (left bundle branch block) 11/18/[address] Villegas at [facility] handtools repairer. Paroxysmal atrial fibrillation ([facility]) 05/27/2019 Last Assessment & Plan: On Eliquis Severe mitral regurgitation 11/18/2012 Form atting of this note is different from the original. Emilie at [facility] handtools repairer. Message from [employer] sent at 11/15/2018 4:29 PM [facility] ----- Wa Dr. Farnsworth. Just GERALDO regarding my hospital visit, I have an appointment with Dr. Luke rodriguez at [facility] on This Sunday for my TAVR work up. Last Assessment & Plan: Formatting of this note might be different from the mars Systolic heart failure ([facility]) 11/18/2012 For matting of this note might be different from the original. Sandy stage III Coreg Lasix and Lisinopril started in hospital in November. Dr. Phan handtools repairer. Last Assessment & Plan: Status: Stable Interim History: No cp's, sob, PTE or calf pains. No weight gains. Continue with Cardiology. GERD (gastroesophageal reflux disease) 2 Osteopenia 01/29/2015 Formatting of th is note might be different from the original. DEXA 01/2015 Pulmonary HTN ([facility]) 11/18/2012 Formatting o f this note might be different from the original. Sandy documentation seen on ECHO. 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 Never 11/27/2024 Do you belong to any clubs o r organizations such as congregation groups, unions, fraternal or athletic groups, or [...] Date Recorded PHQ-2 Total Score 0 11/27/2024 [facility] [place] [facility] Occupat ional Health - Occupational Stress [...] any time in the past 12 m [facility], were you homeless or living in a assisted (including now)? No 11/27/2024 Personal Safety Answer Date Recorded Have you ever been in or are you currently in a harmful physical or emotional relationship or is someone making you feel afraid or unsafe? 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 Not on file Not on f ile [...] 11/13/2024 6:45 PM CDT Plan of Treatment Health Maintenance Due Date Last Done Comments Zoster Vaccine (1 of 2) 2007 Lung Cancer Screening 07/12/2023 07/12/2022 Osteoporosis Screening-Bone Density Scan 08/30/2023 08/30/2021, 01/29/2015, 01/29/2015, Additional history exists Covid-19 Vaccine (2023-2 5 season) 2024 10/19/2021, 10/19/2021 Breast Cancer Screening-Mammogram 07/17/2024 07/17/2023, 08/30/2021, 06/09/2019, Additional history exists DTaP/Tdap/Td Vaccine (2 - Td or Tdap) 12/16/2024 12/16/2014 Well Visit 65+ 05/28/2025 05/28/2024, 05/09, 08/01/2021 Depression Screening 11/13/2025 11/13/2024, 11/13/2024, 08/21/2024, Additional history exists Fall Risk Assessment 12/02/2025 12/02/2024, 05/28/2024, 04/22/2024, Additional history exists Hepatitis C Screening Completed 08/17/2021 Influenza Vaccine Completed 04/14/2024, , 05/12/2022, Additional history exists Hepatitis B Screening Completed 05/28/2024 Colon Cancer Screening-Colonoscopy Discontinued Pneumococcal vaccine 65+ Discontinued Medical Devices Implanted Type Area Artificial Teeth Inspector Device Identifier Shelf Expiration Date Model / Serial / Lot Photofix Bovine 6x8 Pericardium Pfp 6x8 - S000 - [id number] Implanted:Qty: 1 on 11/23/2021 by Adal Moore MD at [facility] Graft N/A: Heart Cryolife Inc 08/20/2023 PFP 6X8 / 000 / [id number] Castrejon Rv Lead [id number] 6 Implanted: 016 (Quantity not on file) Lead Heart Medtronic Cardiac Rhythm Mgmt 2087TC-5 2 / [id number] / Castrejon Lv Lead [id number]/16/2015 Implanted: 016 (Quantity not on file) Lead Heart Castrejon [id number]-46- 6 Implanted: 016 (Quantity not on file) Lead Chest Wall Castrejon Diagnostics 8TC-4 6 / [id number] / Getinge [employer]ill[employer] Sensation Plus 7.5fr 6in 2 Statlock Device Fiber Optic Insertion [id number] - S000 - [id number] Implanted:Qty: 1 on 11/22/2021 by Adal Moore MD at [facility] Other - see comments Left: Groin GETINGE CASTLE INC 03/12/2023 0684-00- [id number] / 000 / [id number] Description:IABP Castrejon Pm [id number] Implanted: 016 by Alfredo White (Quantity not on file) Pacemaker Chest [facility] [id number] / [id number] / Description:Did not get lead information - office did not schedule MRI exam, device is not conditional for MRI and provider is looking into other options JL 09/28/21 On-X Intrnl Gelweave Valsalva 22mm 19.4mm 30mm 11cm Mechanical Conduit Sew Onxaap-21 - [id number] - [id number] Implanted:Qty: 1 on 11/22/2021 by Adal Moore MD at [facility] Prosthetic Valve N/A: Aorta On-X Intrnl 04/08/2023 ONXAAP-2 / [id number] / [id number] Photofix Bovine 6x8 Pericardium Pfp 6x8 - S000 - [id number] Implanted:Qty: 1 on 11/22/2021 by Adal Moore MD at [facility] N/A: Heart [employer]ife Inc 08/06/2023 PFP 6X8 / 000 / [id number] Description:Given to sterile field for PRN use on surgical site Photofix Bovine 6x8 Pericardium Pfp 6x8 - [id number] Implanted:Qty: 1 on 11/28/2021 by Adal Moore MD at [facility] N/A: Heart [employer] Inc 08/06/2023 PFP 6X8 / / [id number] Medtronic Inc Simulus 24mm Semirigid Band Annuloplasty 800sc-24 - [id number] - [id number] Implanted:Qty: 1 on 11/28/2021 by Adal Moore MD at [facility] N/A: Heart Medtronic Inc 03/15/2023 800SC-24 / [id number] / Terumo Cardio Vascular Gelweave Od6 Mm L30 Cm Suture Retention Unique Hydrolyzable Abdomen Thorax Straight Graft Cardiovascular Gelatin Polyester Woven [id number] - [id number] - [id number] Implanted:Qty: 1 on 11/28/2021 by Adal Moore MD at [facility] N/A: Chest Terumo Cardio Vascular 08/08/2024 [id number] / [id number] / [id number] Procedures Procedure Name Priority Date/Time Associated [...] GRAM STAIN Routine 11/25/2024 8:09 PM CDT IA AN PROCEDURE PLACEHOLDER Routine 11/25/2024 7:42 PM [...] Read Routine (OP Routine) 07/17/2023 12:59 PM ATTENDANT HONOR BAR Encounter for screening mammogram for malignant neoplasm of breast DEXA AXIAL SKELETON BONE DENSITY 1 OR MORE SITES Schedule Routine, Read Routine (OP Routine) 08/30/2021 10:30 AM ATTENDANT HONOR BAR Osteopenia of spine HEPATITIS C ANTIBODY Routine 08/17/2021 3:29 PM ATTENDANT HONOR BAR Encounter for hepatitis C screening test for low risk patient from Last 3 Months or Most Recently Relevant to Health Maintenance Results * ECG 12 lead (12/02/2024 7:15 AM CDT) Ventricular Rate EKG/Min 78 BPM [facility] Atrial Rate 78 BPM [facility] IA-Interval (MSEC) 152 ms [facility] QRS-Interval (MSEC) 130 ms [facility] QT-Interval (MSEC) 466 ms [facility] QTc 531 ms [facility] P [place] 105 degrees [facility] R [place] -29 degrees [facility] T [place] 127 degrees [facility] Diagnosis Sinus rhythm with Premature ventricular [...] MENDEZ M.D ([id number]) on 12/02/2024 10:39:18 AM [facility] 12/02/2024 7:15 AM CDT 12/02/2024 10:39 AM CDT us Brittney Martinez MD ECG ORDERABLES Final Res ult [facility] * (ABNORMAL) eGFR (12/01/2024 9:24 PM CDT) [...] LAB BLOOD ORDERABLES F inal Result [facility] Department [place] [address] * (ABNORMAL) Differential, auto (12/01/2024 9:24 PM CDT) Neutrophil abs 3.75 1.50 - 6.50 K/cumm Imm gran abs 0.01 0.00 - 0.10 K/cumm [facility] Lymphocyte abs 0.52(L) 0.80 - 3.30 K/cumm [facility] Monocyte abs 0.36 0.20 - 0.80 K/cumm [facility] Eosinophil abs 0.37 0.00 - 0.50 K/cumm [facility] Basophil abs 0.08 0.00 - 0.10 K/cumm [facility] Neutrophil pct 73.6 % [facility] Comment: Interpretive Data Percent cell count reference ranges are not reported, since discordance with absolute values may lead to misinterpretation of CBC data. Current Interpretive Data was last revised on 2017. Imm gran pct 0.2 % [facility] Comment: Interpretive Data Percent cell count reference ranges are not reported, since discordance with absolute values may lead to misinterpretation of CBC data. Current Interpretive Data was last revised on 2017. Lymphocyte pct 10.2 % [facility] Comment: Interpretive Data Percent cell count reference ranges are not reported, since discordance with absolute values may lead to misinterpretation of CBC data. Current Interpretive Data was last revised on 2017. Monocyte pct 7.1 % [facility] Comment: Interpretive Data Percent cell count reference ranges are not reported, since discordance with absolute values may lead to misinterpretation of CBC data. Current Interpretive Data was last revised on 2017. Eosinophil pct 7.3 % [facility] Comment: Interpretive Data Percent cell count reference ranges are not reported, since discordance with absolute values may lead to misinterpretation of CBC data. Current Interpretive Data was last revised on 2017. Basophil pct 1.6 % [facility] Comment: Interpretive Data Percent cell count reference ranges are not reported, since discordance with absolute values may lead to misinterpretation of CBC data. Current Interpretive Data was last revised on 2017. Blood 12/01/2024 9:24 PM CDT 12/01/2024 9:44 PM CDT us Baltazar Manzano MD LAB BLOOD ORDERABLES F inal Result [facility] Department [place] [address] * (ABNORMAL) CBC with auto differential (12/01/2024 9:24 PM CDT) [facility] WBC 5.09 3.80 - 9.90 K/cumm Hgb 7.8(L) 11.9 - 15.5 g/dL [facility] Hct 26.0(L) 35.6 - 45.5 % [facility] Plt 176 150 - 400 K/cumm [facility] MPV 11.5 9.1 - 12.3 fL [facility] RBC 2.90(L) 3.90 - 5.20 M/cumm [facility] MCV 89.7 81.3 - 96.4 fL [facility] MCH 26.9(L) 27.1 - 33.3 pg [facility] MCHC 30.0(L) 32.3 - 35.7 g/dL [facility] RDW CV 17.2(H) 11.1 - 14.9 % [facility] RDW SD 55.6(H) 35.7 - 48.1 fL [facility] NRBC abs 0.00 0.00 - 0.01 K/cumm [facility] Blood 12/01/2024 9:24 PM CDT 12/01/2024 9:44 PM CDT Baltazar Manzano MD LAB BLOOD ORDERABLES F inal Result Performing Organization Address City/State/[facility] Co de Phone Number [facility] Department [place] [address] * (ABNORMAL) Protime-INR (12/01/2024 9:24 PM CDT) [facility] PT 22.9(H) 9.7 - 13.0 sec INR 2.09(H) 0.90 - 1.20 [facility] Comment: Interpretive data Oral anticoagulant therapeutic ranges: Venous thromboembolism prophylaxis or treatment: 2.0-3.0 CARDIOLOGY Standard range: 2.0-3.0 High-intensity range: 2.5-3.5 Refer to indication-specific guidelines for appropriate target ranges for prosthetic heart valve replacement. Current interpretive data was last revised on 2019. Blood 12/01/2024 9:24 PM CDT 12/01/2024 9:45 PM CDT us Baltazar Manzano MD LAB BLOOD ORDERABLES F inal Result Performing Organization Address [facility] Co de Phone Number [facility] of [employer] [place] [address] * (ABNORMAL) Hepatic function panel (12/01/2024 9:24 PM CDT) Pathologist [facility] Bilirubin, total <0.2 0.1 - 1.2 mg/dL Bilirubin, direct <0.2 0.1 - 0.3 mg/dL [facility] Protein, pl 7.0 6.5 - 8.5 g/dL [facility] Albumin 3.4(L) 3.5 - 5.0 g/dL [facility] Alk phos 105 40 - 130 Units/L [facility] ALT 40 7 - 45 Units/L [facility] AST 53(H) 10 - 45 Units/L [facility] Blood 12/01/2024 9:24 PM CDT 12/01/2024 9:44 PM CDT us Brittney Martinez MD LAB BLOOD ORDERABLES Mirtha l Result Performing Organization Address [facility] Co de Phone Number [facility] [employer] [place] [address] * (ABNORMAL) Basic metabolic panel (12/01/2024 9:24 PM CDT) Pathologist [facility] Sodium 142 135 - 145 mmol/L Potassium, pl 4.6 3.3 - 4.9 mmol/L [facility] Chloride 108 97 - 110 mmol/L [facility] CO2 24 22 - 32 mmol/L [facility] Anion gap 10 2 - 15 mmol/L [facility] BUN 10 6 - 25 mg/dL [facility] Creatinine 1.70(H) 0.60 - 1.10 mg/dL [facility] Glucose 98 70 - 199 mg/dL [facility] Comment: Interpretive Data Fasting glucose >/= [...] 2022. Calcium 8.5 8.5 - 10.3 mg/dL [facility] Blood 12/01/2024 9:24 PM CDT 12/01/2024 9:44 PM CDT Baltazar Manzano MD LAB BLOOD ORDERABLES F inal Result [facility] Department [place] [address] * CT Head WO Contrast (12/01/2024 7:33 [...] ORDERABLES F inal Result Performing Organization Address [facility] Co de Phone Number [facility] [employer] [place] [address] * (ABNORMAL) Protime-INR (11/30/2024 9:16 PM CDT) PT 16.8(H) 9.7 - 13.0 sec INR 1.54(H) 0.90 - 1.20 [facility] Comment: Interpretive data Oral anticoagulant therapeutic ranges: Venous thromboembolism prophylaxis or treatment: 2.0-3.0 CARDIOLOGY Standard range: 2.0-3.0 High-intensity range: 2.5-3.5 Refer to indication-specific guidelines for appropriate target ranges for prosthetic heart valve replacement. Current interpretive data was last revised on 2019. Blood 11/30/2024 9:16 PM CDT 11/30/2024 9:43 PM CDT Kandis Spencer MD LAB BLOOD ORDERABLES Final Resu lt Performing Organization Address [facility] [place] [address] * Type and screen (11/30/2024 9:16 PM CDT) Pathologist [facility] Man, indirect Negative ABO Rh A Positive [facility] Blood 11/30/2024 9:16 PM CDT 11/30/2024 9:49 PM CDT Narrative [facility] - 11/30/2024 10:42 PM CDT Has the patient had Daratumumab or Isatuximab in the past 6 months?->Unknown Baltazar Manzano MD LAB BLOOD BANK TEST OR DERABLES Final Result Performing Organization Address [facility] Co de Phone Number [facility] of [employer] [place] [address] * (ABNORMAL) Basic metabolic panel (11/30/2024 9:16 PM CDT) Pathologist [facility] Sodium 140 135 - 145 mmol/L Potassium, pl 4.4 3.3 - 4.9 mmol/L [facility] Chloride 110 97 - 110 mmol/L [facility] CO2 25 22 - 32 mmol/L [facility] Anion gap 5 2 - 15 mmol/L [facility] BUN 10 6 - 25 mg/dL [facility] Creatinine 1.59(H) 0.60 - 1.10 mg/dL [facility] Glucose 123 70 - 199 mg/dL [facility] Comment: Interpretive Data Fasting glucose >/= [...] 2022. Calcium 8.5 8.5 - 10.3 mg/dL [facility] Blood 11/30/2024 9:16 PM CDT 11/30/2024 9:40 PM CDT us Baltazar Manzano MD LAB BLOOD ORDERABLES F inal Result [facility] Department [place] [address] * (ABNORMAL) eGFR (11/29/2024 10:18 PM CDT) Pathologist [facility] eGFR 34(L) >=60 mL/min/1. 73 m2 Comment: [...] MD LAB BLOOD ORDERABLES F inal Result [facility] Department [place] [address] * (ABNORMAL) Differential, auto (11/29/2024 10:18 PM CDT) Neutrophil abs 4.10 1.50 - 6.50 K/cumm Imm gran abs 0.03 0.00 - 0.10 K/cumm [facility] Lymphocyte abs 0.70(L) 0.80 - 3.30 K/cumm [facility] Monocyte abs 0.44 0.20 - 0.80 K/cumm [facility] Eosinophil abs 0.45 0.00 - 0.50 K/cumm [facility] Basophil abs 0.07 0.00 - 0.10 K/cumm [facility] Neutrophil pct 70.8 % [facility] Comment: Interpretive Data Percent cell count reference ranges are not reported, since discordance with absolute values may lead to misinterpretation of CBC data. Current Interpretive Data was last revised on 2017. Imm gran pct 0.5 % [facility] Comment: Interpretive Data Percent cell count reference ranges are not reported, since discordance with absolute values may lead to misinterpretation of CBC data. Current Interpretive Data was last revised on 2017. Lymphocyte pct 12.1 % [facility] Comment: Interpretive Data Percent cell count reference ranges are not reported, since discordance with absolute values may lead to misinterpretation of CBC data. Current Interpretive Data was last revised on 2017. Monocyte pct 7.6 % [facility] Comment: Interpretive Data Percent cell count reference ranges are not reported, since discordance with absolute values may lead to misinterpretation of CBC data. Current Interpretive Data was last revised on 2017. Eosinophil pct 7.8 % [facility] Comment: Interpretive Data Percent cell count reference ranges are not reported, since discordance with absolute values may lead to misinterpretation of CBC data. Current Interpretive Data was last revised on 2017. Basophil pct 1.2 % [facility] Comment: Interpretive Data Percent cell count reference ranges are not reported, since discordance with absolute values may lead to misinterpretation of CBC data. Current Interpretive Data was last revised on 2017. Blood 11/29/2024 10:1 8 PM CDT 11/29/2024 11:31 PM CDT us Baltazar Manzano MD LAB BLOOD ORDERABLES F inal Result [facility] Department [place] [address] * (ABNORMAL) CBC with auto differential (11/29/2024 10:18 PM CDT) WBC 5.79 3.80 - 9.90 K/cumm Hgb 7.3(L) 11.9 - 15.5 g/dL [facility] Hct 24.1(L) 35.6 - 45.5 % [facility] Plt 162 150 - 400 K/cumm [facility] MPV 11.8 9.1 - 12.3 fL [facility] RBC 2.69(L) 3.90 - 5.20 M/cumm [facility] MCV 89.6 81.3 - 96.4 fL [facility] MCH 27.1 27.1 - 33.3 pg [facility] MCHC 30.3(L) 32.3 - 35.7 g/dL [facility] RDW CV 17.1(H) 11.1 - 14.9 % [facility] RDW SD 55.2(H) 35.7 - 48.1 fL [facility] NRBC abs 0.00 0.00 - 0.01 K/cumm [facility] Blood 11/29/2024 10:1 8 PM CDT 11/29/2024 11:31 PM CDT Baltazar Manzano MD LAB BLOOD ORDERABLES F inal Result Performing Organization Address [facility] Co de Phone Number [facility] Department [place] [address] * (ABNORMAL) Protime-INR (11/29/2024 10:18 PM CDT) PT 15.1(H) 9.7 - 13.0 sec INR 1.39(H) 0.90 - 1.20 [facility] Comment: Interpretive data Oral anticoagulant therapeutic ranges: Venous thromboembolism prophylaxis or treatment: 2.0-3.0 CARDIOLOGY Standard range: 2.0-3.0 High-intensity range: 2.5-3.5 Refer to indication-specific guidelines for appropriate target ranges for prosthetic heart valve replacement. Current interpretive data was last revised on 2019. Blood 11/29/2024 10:1 8 PM CDT 11/29/2024 11:26 PM CDT Kandis Spencer MD LAB BLOOD ORDERABLES Final Resu lt Performing Organization Address [facility]/ZIP Co de Phone Number [facility] Department [place] [address] * (ABNORMAL) Basic metabolic panel (11/29/2024 10:18 PM CDT) Sodium 145 135 - 145 mmol/L Potassium, pl 4.2 3.3 - 4.9 mmol/L [facility] Chloride 111(H) 97 - 110 mmol/L [facility] CO2 24 22 - 32 mmol/L [facility] Anion gap 10 2 - 15 mmol/L [facility] BUN 12 6 - 25 mg/dL [facility] Creatinine 1.63(H) 0.60 - 1.10 mg/dL [facility] Glucose 99 70 - 199 mg/dL [facility] Comment: Interpretive Data Fasting glucose >/= [...] 2022. Calcium 8.5 8.5 - 10.3 mg/dL [facility] Blood 11/29/2024 10:1 8 PM CDT 11/29/2024 11:31 PM CDT us Baltazar Manzano MD LAB BLOOD ORDERABLES F inal Result [facility] Department [place] [address] * (ABNORMAL) eGFR (11/29/2024 9:25 AM CDT) [...] Inclusion of Race in Diagnosing Kidney Disease, [employer] 2020). The CKD-EPI equation should not be used for patients with unstable renal function and has not been validated in children and those over 70. Current interpretive data was last reviewed 2021. Blood 11/29/2024 9:25 AM CDT 11/29/2024 9:37 AM CDT Baltazar Manzano MD LAB BLOOD ORDERABLES F inal Result Performing Organization Address [facility] de Phone Number JULIANA RIBERA [facility] Department [place] [address] * Heparin anti factor Xa activity (11/29/2024 [...] ORDERABLES F inal Result Performing Organization Address [facility] Co de Phone Number [facility] Department [place] [address] * (ABNORMAL) aPTT (11/29/2024 9:25 AM CDT) aPTT 40(H) 28 - 38 sec Comment: Interpretive Data Heparin therapeutic range: 66.0 - 100.0 seconds. Range based on correlation with therapeutic heparin activity range of 0.3 - 0.7 Units/mL. Current interpretive data was last revised on 2023. Blood 11/29/2024 9:25 AM CDT 11/29/2024 9:37 AM CDT Narrative [facility] - 11/29/2024 10:00 AM CDT Baseline prior to enoxaparin initiation. Baltazar Manzano MD LAB BLOOD ORDERABLES F inal Result Performing Organization Address [facility] Co de Phone Number [facility] Department [place] [address] * (ABNORMAL) Protime-INR (11/29/2024 9:25 AM CDT) PT 15.7(H) 9.7 - 13.0 sec INR 1.44(H) 0.90 - 1.20 [facility] Comment: Interpretive data Oral anticoagulant therapeutic ranges: Venous thromboembolism prophylaxis or treatment: 2.0-3.0 CARDIOLOGY Standard range: 2.0-3.0 High-intensity range: 2.5-3.5 Refer to indication-specific guidelines for appropriate target ranges for prosthetic heart valve replacement. Current interpretive data was last revised on 2019. Blood 11/29/2024 9:25 AM CDT 11/29/2024 9:37 AM CDT Narrative [facility] - 11/29/2024 10:00 AM CDT Baseline prior to enoxaparin initiation. Baltazar Manzano MD LAB BLOOD ORDERABLES F inal Result Performing Organization Address [facility]/ZIP Co de Phone Number [facility] Department [place] [address] * (ABNORMAL) CBC without differential (11/29/2024 9:25 AM CDT) WBC 7.02 3.80 - 9.90 K/cumm Hgb 8.2(L) 11.9 - 15.5 g/dL [facility] Hct 27.4(L) 35.6 - 45.5 % [facility] Plt 187 150 - 400 K/cumm [facility] MPV 11.1 9.1 - 12.3 fL [facility] RBC 3.07(L) 3.90 - 5.20 M/cumm [facility] MCV 89.3 81.3 - 96.4 fL [facility] MCH 26.7(L) 27.1 - 33.3 pg [facility] MCHC 29.9(L) 32.3 - 35.7 g/dL [facility] RDW CV 17.1(H) 11.1 - 14.9 % [facility] RDW SD 54.7(H) 35.7 - 48.1 fL [facility] NRBC abs 0.00 0.00 - 0.01 K/cumm [facility] Blood 11/29/2024 9:25 AM CDT 11/29/2024 9:37 AM CDT Narrative [facility] - 11/29/2024 9:45 AM CDT Baseline prior to enoxaparin initiation. Baltazar Manzano MD LAB BLOOD ORDERABLES F inal Result JULIANA [facility] Department [place] [address] * (ABNORMAL) Creatinine (11/29/2024 9:25 AM CDT) Creatinine 1.61(H) 0.60 - 1.10 mg/dL Blood 11/29/2024 9:25 AM CDT 11/29/2024 9:37 AM CDT Narrative [facility] - 11/29/2024 10:03 AM CDT Baseline prior to enoxaparin initiation. Baltazar Manzano MD LAB BLOOD ORDERABLES F inal Result Performing Organization Address [facility] Co de Phone Number [facility] [place] [address] * (ABNORMAL) eGFR (11/28/2024 10:47 PM CDT) [...] ORDERABLES F inal Result Performing Organization Address City/[facility]/ZIP Co de Phone Number [facility] Department [place] [address] * (ABNORMAL) Protime-INR (11/28/2024 10:47 PM CDT) PT 18.1(H) 9.7 - 13.0 sec INR 1.66(H) 0.90 - 1.20 [facility] Comment: Interpretive data Oral anticoagulant therapeutic ranges: Venous thromboembolism prophylaxis or treatment: 2.0-3.0 CARDIOLOGY Standard range: 2.0-3.0 High-intensity range: 2.5-3.5 Refer to indication-specific guidelines for appropriate target ranges for prosthetic heart valve replacement. Current interpretive data was last revised on 2019. Blood 11/28/2024 10:4 7 PM CDT 11/29/2024 12:14 AM CDT us Kandis Spencer MD LAB BLOOD ORDERABLES Final Resu lt [facility] Department [place] [address] * (ABNORMAL) Basic metabolic panel (11/28/2024 10:47 PM CDT) Sodium 139 135 - 145 mmol/L Potassium, pl 3.7 3.3 - 4.9 mmol/L [facility] Chloride 104 97 - 110 mmol/L [facility] CO2 25 22 - 32 mmol/L [facility] Anion gap 10 2 - 15 mmol/L [facility] BUN 13 6 - 25 mg/dL [facility] Creatinine 1.52(H) 0.60 - 1.10 mg/dL [facility] Glucose 131 70 - 199 mg/dL [facility] Comment: Interpretive Data Fasting glucose >/= [...] 2022. Calcium 8.1(L) 8.5 - 10.3 mg/dL [facility] Blood 11/28/2024 10:4 7 PM CDT 11/28/2024 11:38 PM CDT Baltazar Manzano MD LAB BLOOD ORDERABLES F inal Result Performing Organization Address [facility]/ZIP Co de Phone Number JULIANA RIBERA [facility] Department [place] [address] * (ABNORMAL) aPTT (11/28/2024 2:32 PM CDT) aPTT 50(H) 28 - 38 sec Comment: Interpretive Data Heparin therapeutic range: 66.0 - 100.0 seconds. Range based on correlation with therapeutic heparin activity range of 0.3 - 0.7 Units/mL. Current interpretive data was last revised on 2023. Blood 11/28/2024 2:32 PM CDT 11/28/2024 2:[address] [facility]/28/[facility] 3:10 PM CDT STAT PTT [...] ORDERABLES Final R esult Performing Organization Address City/[facility]/ZIP Co de Phone Number JULIANA RIBERA [facility] Department [place] [address] * (ABNORMAL) aPTT (11/28/2024 12:40 PM CDT) aPTT 52(H) 28 - 38 sec Comment: Interpretive Data Heparin therapeutic range: 66.0 - 100.0 seconds. Range based on correlation with therapeutic heparin activity range of 0.3 - 0.7 Units/mL. Current interpretive data was last revised on 2023. Blood 11/28/2024 12:4 0 PM CDT 11/28/2024 1:02 PM CDT Narrative [facility] - 11/28/2024 1:23 PM CDT [...] LAB BLOOD ORDERABLES Final R esult [facility] Department [place] [address] * (ABNORMAL) aPTT (11/28/2024 10:37 AM CDT) [facility] Signature aPTT 53(H) 28 - 38 sec Comment: Interpretive Data Heparin therapeutic range: 66.0 - 100.0 seconds. Range based on correlation with therapeutic heparin activity range of 0.3 - 0.7 Units/mL. Current interpretive data was last revised on 2023. Blood 11/28/2024 10:3 7 AM CDT 11/28/2024 10:48 AM CDT [facility] 11/28/2024 11:15 AM CDT STAT PTT timing: [...] Gentile MD LAB BLOOD ORDERABLES Final R Hand Talk Performing Organization Address [facility] Co de Phone Number [facility] Department of [employer] [place] [address] * (ABNORMAL) aPTT (11/28/2024 8:22 AM CDT) [facility] aPTT 50(H) 28 - 38 sec Comment: Interpretive Data Heparin therapeutic range: 66.0 - 100.0 seconds. Range based on correlation with therapeutic heparin activity range of 0.3 - 0.7 Units/mL. Current interpretive data was last revised on 2023. Blood 11/28/2024 8:22 AM CDT 11/28/2024 8:34 AM CDT Narrative [facility] - 11/28/2024 8:56 AM CDT STAT [...] Gentile MD LAB BLOOD ORDERABLES Final R Hand Talk Performing Organization Address [facility]/ZIP Co de Phone Number [facility] Department of [employer] [place] [address] * (ABNORMAL) aPTT (11/28/2024 4:19 AM CDT) [...] LAB BLOOD ORDERABLES F inal Result JULIANA RIBERA [facility] Department [place] [address] * (ABNORMAL) eGFR (11/27/2024 8:31 PM CDT) [...] MD LAB BLOOD ORDERABLES F inal Result [facility] Department [place] [address] * Differential, auto (11/27/2024 8:31 PM CDT) Neutrophil abs 4.46 1.50 - 6.50 K/cumm Imm gran abs 0.01 0.00 - 0.10 K/cumm [facility] Lymphocyte abs 0.80 0.80 - 3.30 K/cumm [facility] Monocyte abs 0.47 0.20 - 0.80 K/cumm [facility] Eosinophil abs 0.30 0.00 - 0.50 K/cumm [facility] Basophil abs 0.07 0.00 - 0.10 K/cumm [facility] Neutrophil pct 73.0 % [facility] Comment: Interpretive Data Percent cell count reference ranges are not reported, since discordance with absolute values may lead to misinterpretation of CBC data. Current Interpretive Data was last revised on 2017. Imm gran pct 0.2 % [facility] Comment: Interpretive Data Percent cell count reference ranges are not reported, since discordance with absolute values may lead to misinterpretation of CBC data. Current Interpretive Data was last revised on 2017. Lymphocyte pct 13.1 % [facility] Comment: Interpretive Data Percent cell count reference ranges are not reported, since discordance with absolute values may lead to misinterpretation of CBC data. Current Interpretive Data was last revised on 2017. Monocyte pct 7.7 % [facility] Comment: Interpretive Data Percent cell count reference ranges are not reported, since discordance with absolute values may lead to misinterpretation of CBC data. Current Interpretive Data was last revised on 2017. Eosinophil pct 4.9 % [facility] Comment: Interpretive Data Percent cell count reference ranges are not reported, since discordance with absolute values may lead to misinterpretation of CBC data. Current Interpretive Data was last revised on 2017. Basophil pct 1.1 % [facility] Comment: Interpretive Data Percent cell count reference ranges are not reported, since discordance with absolute values may lead to misinterpretation of CBC data. Current Interpretive Data was last revised on 2017. Blood 11/27/2024 8:31 PM CDT 11/27/2024 9:03 PM CDT Baltazar Manzano MD LAB BLOOD ORDERABLES F inal Result Performing Organization Address [facility]/ZIP Co de Phone Number [facility] Department of [employer] [place] [address] * (ABNORMAL) CBC with auto differential (11/27/2024 8:31 PM CDT) Pathologist [facility] WBC 6.11 3.80 - 9.90 K/cumm Hgb 7.8(L) 11.9 - 15.5 g/dL [facility] Hct 25.6(L) 35.6 - 45.5 % [facility] Plt 168 150 - 400 K/cumm [facility] MPV 11.6 9.1 - 12.3 fL [facility] RBC 2.88(L) 3.90 - 5.20 M/cumm [facility] MCV 88.9 81.3 - 96.4 fL [facility] MCH 27.1 27.1 - 33.3 pg [facility] MCHC 30.5(L) 32.3 - 35.7 g/dL [facility] RDW CV 17.0(H) 11.1 - 14.9 % [facility] RDW SD 54.6(H) 35.7 - 48.1 fL [facility] NRBC abs 0.00 0.00 - 0.01 K/cumm [facility] Blood 11/27/2024 8:31 PM CDT 11/27/2024 9:03 PM CDT Baltazar Manzano MD LAB BLOOD ORDERABLES F inal Result Performing Organization Address [facility]/ZIP Co de Phone Number [facility] of Laboratories [place] [address] * (ABNORMAL) Protime-INR (11/27/2024 8:31 PM CDT) Pathologist [facility] PT 16.6(H) 9.7 - 13.0 sec INR 1.52(H) 0.90 - 1.20 [facility] Comment: Interpretive data Oral anticoagulant therapeutic ranges: Venous thromboembolism prophylaxis or treatment: 2.0-3.0 CARDIOLOGY Standard range: 2.0-3.0 High-intensity range: 2.5-3.5 Refer to indication-specific guidelines for appropriate target ranges for prosthetic heart valve replacement. Current interpretive data was last revised on 2019. Blood 11/27/2024 8:31 PM CDT 11/27/2024 9:03 PM CDT Kandis Spencer MD LAB BLOOD ORDERABLES Final Resu lt Performing Organization Address [facility] Co de Phone Number [facility] Department of [employer] [place] [address] * Type and screen (11/27/2024 8:31 PM CDT) Pathologist [facility] ABO Rh A Positive Man, indirect Negative [facility] Blood 11/27/2024 8:31 PM CDT 11/27/2024 9:15 PM CDT Narrative [facility] - 11/27/2024 10:20 PM CDT Has the patient had Daratumumab or Isatuximab in the past 6 months?->Unknown Baltazar Manzano MD LAB BLOOD BANK TEST OR DERABLES Final Result Performing Organization Address City/[facility]/ZIP Co de Phone Number [facility] of [employer] [place] [address] * (ABNORMAL) Basic metabolic panel (11/27/2024 8:31 PM CDT) Pathologist [facility] Sodium 140 135 - 145 mmol/L Potassium, pl 4.3 3.3 - 4.9 mmol/L [facility] Chloride 108 97 - 110 mmol/L [facility] CO2 25 22 - 32 mmol/L [facility] Anion gap 7 2 - 15 mmol/L [facility] BUN 14 6 - 25 mg/dL [facility] Creatinine 1.70(H) 0.60 - 1.10 mg/dL [facility] Glucose 102 70 - 199 mg/dL [facility] Comment: Interpretive Data Fasting glucose >/= [...] 2022. Calcium 8.5 8.5 - 10.3 mg/dL [facility] Blood 11/27/2024 8:31 PM CDT 11/27/2024 9:03 PM CDT Baltazar Manzano MD LAB BLOOD ORDERABLES F inal Result Performing Organization Address City/[facility]/ZIP Co de Phone Number [facility] Department of [employer] [place] [address] * (ABNORMAL) aPTT (11/27/2024 5:13 AM CDT) [...] ORDERABLES F inal Result Performing Organization Address City/[facility]/ZIP Co de Phone Number [facility] Department [place] [address] * (ABNORMAL) eGFR (11/26/2024 7:52 PM CDT) Pathologist [facility] eGFR 32(L) >=60 mL/min/1. 73 m2 Comment: [...] MD LAB BLOOD ORDERABLES F inal Result [facility] Department [place] [address] * Differential, auto (11/26/2024 7:52 PM CDT) Pathologist [facility] Neutrophil abs 4.75 1.50 - 6.50 K/cumm Imm gran abs 0.03 0.00 - 0.10 K/cumm [facility] Lymphocyte abs 0.82 0.80 - 3.30 K/cumm [facility] Monocyte abs 0.50 0.20 - 0.80 K/cumm [facility] Eosinophil abs 0.24 0.00 - 0.50 K/cumm [facility] Basophil abs 0.06 0.00 - 0.10 K/cumm [facility] Neutrophil pct 74.2 % [facility] Comment: Interpretive Data Percent cell count reference ranges are not reported, since discordance with absolute values may lead to misinterpretation of CBC data. Current Interpretive Data was last revised on 2017. Imm gran pct 0.5 % [facility] Comment: Interpretive Data Percent cell count reference ranges are not reported, since discordance with absolute values may lead to misinterpretation of CBC data. Current Interpretive Data was last revised on 2017. Lymphocyte pct 12.8 % [facility] Comment: Interpretive Data Percent cell count reference ranges are not reported, since discordance with absolute values may lead to misinterpretation of CBC data. Current Interpretive Data was last revised on 2017. Monocyte pct 7.8 % [facility] Comment: Interpretive Data Percent cell count reference ranges are not reported, since discordance with absolute values may lead to misinterpretation of CBC data. Current Interpretive Data was last revised on 2017. Eosinophil pct 3.8 % [facility] Comment: Interpretive Data Percent cell count reference ranges are not reported, since discordance with absolute values may lead to misinterpretation of CBC data. Current Interpretive Data was last revised on 2017. Basophil pct 0.9 % [facility] Comment: Interpretive Data Percent cell count reference ranges are not reported, since discordance with absolute values may lead to misinterpretation of CBC data. Current Interpretive Data was last revised on 2017. Blood 11/26/2024 7:52 PM CDT 11/26/2024 8:01 PM CDT us Baltazar Manzano MD LAB BLOOD ORDERABLES F inal Result [facility] Department [place] [address] * (ABNORMAL) CBC with auto differential (11/26/2024 7:52 PM CDT) WBC 6.40 3.80 - 9.90 K/cumm Hgb 7.7(L) 11.9 - 15.5 g/dL [facility] Hct 25.0(L) 35.6 - 45.5 % [facility] Plt 173 150 - 400 K/cumm [facility] MPV 11.0 9.1 - 12.3 fL [facility] RBC 2.84(L) 3.90 - 5.20 M/cumm [facility] MCV 88.0 81.3 - 96.4 fL [facility] MCH 27.1 27.1 - 33.3 pg [facility] MCHC 30.8(L) 32.3 - 35.7 g/dL [facility] RDW CV 17.0(H) 11.1 - 14.9 % [facility] RDW SD 53.6(H) 35.7 - 48.1 fL [facility] NRBC abs 0.00 0.00 - 0.01 K/cumm [facility] Blood 11/26/2024 7:52 PM CDT 11/26/2024 8:01 PM CDT us Baltazar Manzano MD LAB BLOOD ORDERABLES F inal Result Performing Organization Address City/[facility] Co de Phone Number [facility] Department [place] [address] * (ABNORMAL) Protime-INR (11/26/2024 7:52 PM CDT) PT 18.0(H) 9.7 - 13.0 sec INR 1.65(H) 0.90 - 1.20 [facility] Comment: Interpretive data Oral anticoagulant therapeutic ranges: Venous thromboembolism prophylaxis or treatment: 2.0-3.0 CARDIOLOGY Standard range: 2.0-3.0 High-intensity range: 2.5-3.5 Refer to indication-specific guidelines for appropriate target ranges for prosthetic heart valve replacement. Current interpretive data was last revised on 2019. Blood 11/26/2024 7:52 PM CDT 11/26/2024 8:08 PM CDT Kandis Spencer MD LAB BLOOD ORDERABLES Final Resu lt Performing Organization Address City/[facility] Co de Phone Number [facility] [place] [address] * (ABNORMAL) Basic metabolic panel (11/26/2024 7:52 PM CDT) Sodium 141 135 - 145 mmol/L Potassium, pl 4.3 3.3 - 4.9 mmol/L [facility] Chloride 107 97 - 110 mmol/L [facility] CO2 25 22 - 32 mmol/L [facility] Anion gap 9 2 - 15 mmol/L [facility] BUN 14 6 - 25 mg/dL [facility] Creatinine 1.75(H) 0.60 - 1.10 mg/dL [facility] Glucose 108 70 - 199 mg/dL [facility] Comment: Interpretive Data Fasting glucose >/= [...] 2022. Calcium 8.4(L) 8.5 - 10.3 mg/dL [facility] Blood 11/26/2024 7:52 PM CDT 11/26/2024 8:02 PM CDT us Baltazar Manzano MD LAB BLOOD ORDERABLES F inal Result JULIANA [facility] Department [place] [address] * (ABNORMAL) aPTT (11/26/2024 12:02 PM CDT) aPTT 53(H) 28 - 38 sec Comment: Interpretive Data Heparin therapeutic range: 66.0 - 100.0 seconds. Range based on correlation with therapeutic heparin activity range of 0.3 - 0.7 Units/mL. Current interpretive data was last revised on 2023. Blood 11/26/2024 12:0 2 PM CDT 11/26/2024 12:34 PM CDT Narrative [facility] - 11/26/2024 1:05 PM CDT STAT PTT [...] ORDERABLES Final R esult JULIANA RIBERA [facility] Department [place] [address] * (ABNORMAL) aPTT (11/26/2024 9:28 AM CDT) [facility] aPTT 50(H) 28 - 38 sec Comment: Interpretive Data Heparin therapeutic range: 66.0 - 100.0 seconds. Range based on correlation with therapeutic heparin activity range of 0.3 - 0.7 Units/mL. Current interpretive data was last revised on 2023. Blood 11/26/2024 9:28 AM CDT 11/26/2024 9:52 AM CDT Patsy JULIANA RIBERA - 11/26/2024 10:01 AM CDT STAT PTT [...] ORDERABLES Final R esult Performing Organization Address City/[facility]/ZIP Co de Phone Number JULIANA [facility] Department [place] [address] * ECG 12 lead (11/26/2024 8:42 AM CDT) Pathologist [facility] Ventricular Rate EKG/Min 69 BPM [facility] Atrial Rate 234 BPM [facility] QRS-Interval (MSEC) 126 ms [facility] QT-Interval (MSEC) 476 ms [facility] QTc 510 ms [facility] R [place] -36 degrees [facility] T [place] 138 degrees [facility] Diagnosis Normal sinus rhythm Left axis deviation Non-specific intra-ventricul ar conduction block Inferior infarct , age undetermined Anterolateral infarct , age undetermined Abnormal ECG When compared with ECG of 25-NOV-2024 20:58, (unconfirmed) Non-specific intra-ventricul ar conduction delay has replaced Sinus rhythm Confirmed by MARVIN POMPA M.D ([id number]) on 11/27/2024 1:25:53 PM [facility] 11/26/2024 8:42 AM CDT 11/27/2024 1:25 PM CDT us Baltazar Manzano MD ECG ORDERABLES Final Result Performing Organization Address [facility]/ZIP Co de Phone Number [facility] * [...] ORDERABLES F inal Result Performing Organization Address [facility] Co de Phone Number JULIANA [facility] [place] [address] * (ABNORMAL) aPTT (11/26/2024 4:03 AM CDT) [...] ORDERABLES F inal Result Performing Organization Address [facility] de Phone Number JULIANA [facility] [place] [address] * (ABNORMAL) eGFR (11/26/2024 12:42 AM CDT) [...] MD LAB BLOOD ORDERABLES F inal Result [facility] Department [place] [address] * (ABNORMAL) Differential, auto (11/26/2024 12:42 AM CDT) Neutrophil abs 6.36 1.50 - 6.50 K/cumm Imm gran abs 0.03 0.00 - 0.10 K/cumm [facility] Lymphocyte abs 0.72(L) 0.80 - 3.30 K/cumm [facility] Monocyte abs 0.45 0.20 - 0.80 K/cumm [facility] Eosinophil abs 0.14 0.00 - 0.50 K/cumm [facility] Basophil abs 0.06 0.00 - 0.10 K/cumm [facility] Neutrophil pct 81.9 % [facility] Comment: Interpretive Data Percent cell count reference ranges are not reported, since discordance with absolute values may lead to misinterpretation of CBC data. Current Interpretive Data was last revised on 2017. Imm gran pct 0.4 % [facility] Comment: Interpretive Data Percent cell count reference ranges are not reported, since discordance with absolute values may lead to misinterpretation of CBC data. Current Interpretive Data was last revised on 2017. Lymphocyte pct 9.3 % [facility] Comment: Interpretive Data Percent cell count reference ranges are not reported, since discordance with absolute values may lead to misinterpretation of CBC data. Current Interpretive Data was last revised on 2017. Monocyte pct 5.8 % [facility] Comment: Interpretive Data Percent cell count reference ranges are not reported, since discordance with absolute values may lead to misinterpretation of CBC data. Current Interpretive Data was last revised on 2017. Eosinophil pct 1.8 % [facility] Comment: Interpretive Data Percent cell count reference ranges are not reported, since discordance with absolute values may lead to misinterpretation of CBC data. Current Interpretive Data was last revised on 2017. Basophil pct 0.8 % [facility] Comment: Interpretive Data Percent cell count reference ranges are not reported, since discordance with absolute values may lead to misinterpretation of CBC data. Current Interpretive Data was last revised on 2017. Blood 11/26/2024 12:4 2 AM CDT 11/26/2024 12:58 AM CDT Baltazar Manzano MD LAB BLOOD ORDERABLES F inal Result [facility] Department [place] [address] * (ABNORMAL) CBC with auto differential (11/26/2024 12:42 AM CDT) WBC 7.76 3.80 - 9.90 K/cumm Hgb 8.2(L) 11.9 - 15.5 g/dL [facility] Hct 26.7(L) 35.6 - 45.5 % [facility] Plt 162 150 - 400 K/cumm [facility] MPV 11.2 9.1 - 12.3 fL [facility] RBC 3.04(L) 3.90 - 5.20 M/cumm [facility] MCV 87.8 81.3 - 96.4 fL [facility] MCH 27.0(L) 27.1 - 33.3 pg [facility] MCHC 30.7(L) 32.3 - 35.7 g/dL [facility] RDW CV 16.7(H) 11.1 - 14.9 % [facility] RDW SD 53.0(H) 35.7 - 48.1 fL [facility] NRBC abs 0.00 0.00 - 0.01 K/cumm [facility] Blood 11/26/2024 12:4 2 AM CDT 11/26/2024 12:58 AM CDT Baltazar Manzano MD LAB BLOOD ORDERABLES F inal Result Performing Organization Address [facility] de Phone Number [facility] [place] [address] * (ABNORMAL) aPTT (11/26/2024 12:42 AM CDT) aPTT 25(L) 28 - 38 sec Comment: Interpretive Data Heparin therapeutic range: 66.0 - 100.0 seconds. Range based on correlation with therapeutic heparin activity range of 0.3 - 0.7 Units/mL. Current interpretive data was last revised on 2023. Blood 11/26/2024 12:4 2 AM CDT 11/26/2024 1:09 AM CDT Narrative [facility] - 11/26/2024 1:19 AM CDT Baseline prior to bivalirudin initiation. Baltazar Manzano MD LAB BLOOD ORDERABLES F inal Result Performing Organization Address [facility] [place] [address] * (ABNORMAL) Protime-INR (11/26/2024 12:42 AM CDT) PT 13.1(H) 9.7 - 13.0 sec INR 1.21(H) 0.90 - 1.20 [facility] Comment: Interpretive data Oral anticoagulant therapeutic ranges: Venous thromboembolism prophylaxis or treatment: 2.0-3.0 CARDIOLOGY Standard range: 2.0-3.0 High-intensity range: 2.5-3.5 Refer to indication-specific guidelines for appropriate target ranges for prosthetic heart valve replacement. Current interpretive data was last revised on 2019. Blood 11/26/2024 12:4 2 AM CDT 11/26/2024 1:09 AM CDT Narrative [facility] - 11/26/2024 1:19 AM CDT Baseline prior to bivalirudin initiation. Baltazar Manzano MD LAB BLOOD ORDERABLES F inal Result Performing Organization Address [facility] de Phone Number [facility] [place] [address] * (ABNORMAL) Hepatic function panel (11/26/2024 12:42 AM CDT) Bilirubin, total <0.2 0.1 - 1.2 mg/dL Bilirubin, direct <0.2 0.1 - 0.3 mg/dL [facility] Protein, pl 6.7 6.5 - 8.5 g/dL [facility] Albumin 3.3(L) 3.5 - 5.0 g/dL [facility] Alk phos 91 40 - 130 Units/L [facility] ALT 16 7 - 45 Units/L [facility] AST 30 10 - 45 Units/L [facility] Blood 11/26/2024 12:4 2 AM CDT 11/26/2024 12:58 AM CDT Cielo Soler NP LAB BLOOD ORDERABLES F inal Result Performing Organization Address [facility] de Phone Number [facility] Department [place] [address] * (ABNORMAL) Basic metabolic panel (11/26/2024 12:42 AM CDT) Sodium 142 135 - 145 mmol/L Potassium, pl 4.3 3.3 - 4.9 mmol/L [facility] Chloride 110 97 - 110 mmol/L [facility] CO2 23 22 - 32 mmol/L [facility] Anion gap 9 2 - 15 mmol/L [facility] BUN 10 6 - 25 mg/dL [facility] Creatinine 1.43(H) 0.60 - 1.10 mg/dL [facility] Glucose 70 70 - 199 mg/dL [facility] Comment: Interpretive Data Fasting glucose >/= [...] 2022. Calcium 8.6 8.5 - 10.3 mg/dL [facility] Blood 11/26/2024 12:4 2 AM CDT 11/26/2024 12:58 AM CDT us Baltazar Manzano MD LAB BLOOD ORDERABLES F inal Result [facility] Department [place] [address] * (ABNORMAL) eGFR (11/25/2024 9:52 PM CDT) [...] ORDERABL ES Final Result Performing Organization Address [facility] Co de Phone Number [facility] of [employer] [place] [address] * Phosphorus (11/25/2024 9:52 PM CDT) [facility] Phosphorus, pl 3.2 2.3 - 4.5 mg/dL Blood 11/25/2024 9:52 PM CDT 11/25/2024 10:09 PM CDT us Treva Andrade MD LAB BLOOD ORDERABL ES Final Result Performing Organization Address [facility] Co de Phone Number [facility] Department [place] [address] * Magnesium (11/25/2024 9:52 PM CDT) [facility] Magnesium 2.0 1.4 - 2.5 mg/dL Blood 11/25/2024 9:52 PM CDT 11/25/2024 10:09 PM CDT us Treva Andrade MD LAB BLOOD ORDERABL ES Final Result Performing Organization Address [facility] [place] [address] * (ABNORMAL) Basic metabolic panel (11/25/2024 9:52 PM CDT) [facility] Sodium 145 135 - 145 mmol/L Potassium, pl 3.9 3.3 - 4.9 mmol/L [facility] Chloride 114(H) 97 - 110 mmol/L [facility] CO2 21(L) 22 - 32 mmol/L [facility] Anion gap 10 2 - 15 mmol/L [facility] BUN 9 6 - 25 mg/dL [facility] Creatinine 1.22(H) 0.60 - 1.10 mg/dL [facility] Glucose 74 70 - 199 mg/dL [facility] Comment: Interpretive Data Fasting glucose >/= [...] 2022. Calcium 8.0(L) 8.5 - 10.3 mg/dL [facility] Blood 11/25/2024 9:52 PM CDT 11/25/2024 10:09 PM CDT us Treva Andrade MD LAB BLOOD ORDERABL ES Final Result [facility] Department [place] [address] * ECG 12 lead (11/25/2024 8:58 PM CDT) Ventricular Rate EKG/Min 92 BPM [facility] Atrial Rate 92 BPM [facility] IA-Interval (MSEC) 176 ms [facility] QRS-Interval (MSEC) 130 ms [facility] QT-Interval (MSEC) 428 ms [facility] QTc 529 ms [facility] P [place] 35 degrees [facility] R [place] -37 degrees [facility] T [place] 136 degrees [facility] Diagnosis Sinus rhythm with occasional Premature [...] Anterolateral leads Confirmed by MARVIN POMPA M.D ([id number]) on 11/27/2024 1:24:41 PM [facility] 11/25/2024 8:58 PM CDT 11/27/2024 1:24 PM CDT Treva Andrade MD ECG ORDERABLES Fi nal Result Performing Organization Address [facility] Co de Phone Number [facility] * [place] Fluoroscopy < 1 Hour (11/25/2024 8:47 PM CDT) Narrative [facility] - 11/25/2024 8:48 PM CDT The images from this study are not interpreted by Radiology. Please refer to the physician's procedure / OR operative note. Milad Rg MD IMG FLUOROSCOPY PROCEDURES Fi nal Result Performing Organization Address [facility] Co de Phone Number [facility] * Aerobic culture and gram stain Hardware Heart (11/25/2024 8:28 PM CDT) Direct Specimen Exam Stain: No polymorphonuclear leukocytes seen. No organisms seen. Report Final Report: No [facility] Hardware (Heart) 11/25/2024 8:28 PM CDT 11/25/2024 9:40 PM CDT Narrative [facility] - 12/01/2024 12:14 PM CDT LV lead Specimen collected in the operating room. Testing performed by [facility] ([phone]) Specimens submitted from normally sterile body sites [...] MICROBIOLOGY - GEN ERAL ORDERABLES Final Result JULIANA RIBERA [facility] Department [place] [address] * (ABNORMAL) POC Blood Gas and Chemistries, Arterial - (11/25/2024 8:27 PM CDT) pH, Art POC 7.33(L) 7.35 - 7.45 pCO2, Art POC 40 35 - 45 mmHg [facility] pO2, Art POC 168(H) 83 - 108 mmHg [facility] Na, POC 141 135 - 145 mmol/L [facility] K POC 4.0 3.3 - 4.9 mmol/L [facility] Comment: Interpretive Data Not all point of care methods assess for hemolysis. Confirm with instrument and retest K+ if not consistent with clinical signs and symptoms. Current Interpretive Data was last revised on 2023. Cl, POC 114(H) 97 - 110 mmol/L [facility] Ionized Ca, POC 4.78 4.50 - 5.10 mg/dL [facility] Glucose, POC 83 70 - 199 mg/dL [facility] Lactate POC 0.7 0.7 - 2.0 mmol/L [facility] SO2 (satya) arterial 100(H) 90 - 95 % [facility] Base excess, POC -4.5 mmol/L [facility] HCO3, Art POC 21 20 - 30 mmol/L [facility] Hct, POC 26.0(L) 36.3 - 45.3 % [facility] Total Hb, POC 8.5(L) 11.9 - 15.5 g/dL [facility] Blood 11/25/2024 8:27 PM CDT 11/25/2024 8:27 PM CDT Baltazar Manzano MD LAB POCT ORDERABLES - DEVICE Final Result JULIANA RIBERA [facility] Department [place] [address] * Aerobic culture and gram stain Hardware Heart (11/25/2024 8:17 PM CDT) Direct Specimen Exam Stain: Rare polymorphonuclear leukocytes seen. No organisms seen. Report Final Report: No growth [facility] Hardware (Heart) 11/25/2024 8:17 PM CDT 11/25/2024 9:50 PM CDT Narrative [facility] - 12/01/2024 12:13 PM CDT Ventricular lead right Specimen collected in the operating room. Testing performed by [facility] ([phone]) Specimens submitted from normally sterile body sites [...] - GENERAL OR DERABLES Final Result JULIANA [facility] Department [place] [address] * Aerobic culture and gram stain Hardware Heart (11/25/2024 8:13 PM CDT) Direct Specimen Exam Stain: Rare polymorphonuclear leukocytes seen. No organisms seen. Report Final Report: No growth [facility] Hardware (Heart) 11/25/2024 8:13 PM CDT 11/25/2024 9:45 PM CDT Narrative [facility] - 12/01/2024 12:14 PM CDT Atrial lead Specimen collected in the operating room. Testing performed by [facility] ([phone]) Specimens submitted from normally sterile body sites [...] OR DERABLES Final Result Performing Organization Address [facility] Co de Phone Number [facility] [place] [address] * Aerobic culture and gram stain Hardware Heart (11/25/2024 8:09 PM CDT) Direct Specimen Exam Stain: No polymorphonuclear leukocytes seen. No organisms seen. Report Final Report: No growth [facility] Hardware (Heart) 11/25/2024 8:09 PM CDT 11/25/2024 9:48 PM CDT Narrative [facility] - 12/01/2024 12:13 PM CDT Generator device Specimen collected in the operating room. Testing performed by [facility] ([phone]) Specimens submitted from normally sterile body sites [...] OR DERABLES Final Result Performing Organization Address [facility] de Phone Number [facility] Department [place] [address] * IA AN PROCEDURE PLACEHOLDER (11/25/2024 7:42 PM CDT) [...] code: NEVAEH placement and diagnostic exam, non-congenital (59344) ICD code(s) for medical necessity: R93.1 - [...] inferior: normal 16- Apical septal: normal 17- [place]: normal Valves: Aortic Valve: Annulus: normal Leaflet [...] the written comments contained within the report. Shai Mercado MD PhD ANESTHESIA ORD ERABLES Edited Result - Final * Peripheral IV Catheter (11/25/2024 7:36 PM CDT) Narrative Shai Spencer MD - 11/25/2024 7:36 PM CDT Shai [...] (11/25/2024 6:37 PM CDT) BSA 1.66 m2 [facility] PROSOLV_CARDIORE PORT_CONS SCIMAGE Narrative [facility] PROSOLV_CARDIOREPORT_CONS SCIMAGE - 11/25/2024 6:37 PM CDT Procedure Auto Finalized by Rule: BW CV NEVAEH DURING CASE OR Please see the Anesthesiologist's Procedure Note for the results. us Shai Spencer MD CV ECHO PROCEDURES Mirtha l Result [facility] PROSOLV_CARDIOREPORT_CONS SCIMAGE * Differential, auto (11/25/2024 12:46 PM CDT) Neutrophil abs 2.66 1.50 - 6.50 K/cumm Imm gran abs 0.02 0.00 - 0.10 K/cumm [facility] Lymphocyte abs 0.87 0.80 - 3.30 K/cumm [facility] Monocyte abs 0.27 0.20 - 0.80 K/cumm [facility] Eosinophil abs 0.16 0.00 - 0.50 K/cumm [facility] Basophil abs 0.05 0.00 - 0.10 K/cumm [facility] Neutrophil pct 66.0 % [facility] Comment: Interpretive Data Percent cell count reference ranges are not reported, since discordance with absolute values may lead to misinterpretation of CBC data. Current Interpretive Data was last revised on 2017. Imm gran pct 0.5 % [facility] Comment: Interpretive Data Percent cell count reference ranges are not reported, since discordance with absolute values may lead to misinterpretation of CBC data. Current Interpretive Data was last revised on 2017. Lymphocyte pct 21.6 % [facility] Comment: Interpretive Data Percent cell count reference ranges are not reported, since discordance with absolute values may lead to misinterpretation of CBC data. Current Interpretive Data was last revised on 2017. Monocyte pct 6.7 % [facility] Comment: Interpretive Data Percent cell count reference ranges are not reported, since discordance with absolute values may lead to misinterpretation of CBC data. Current Interpretive Data was last revised on 2017. Eosinophil pct 4.0 % [facility] Comment: Interpretive Data Percent cell count reference ranges are not reported, since discordance with absolute values may lead to misinterpretation of CBC data. Current Interpretive Data was last revised on 2017. Basophil pct 1.2 % [facility] Comment: Interpretive Data Percent cell count reference ranges are not reported, since discordance with absolute values may lead to misinterpretation of CBC data. Current Interpretive Data was last revised on 2017. Blood 11/25/2024 12:4 6 PM CDT 11/25/2024 1:15 PM CDT Baltazar Manzano MD LAB BLOOD ORDERABLES F inal Result Performing Organization Address [facility] Co de Phone Number [facility] Department [place] [address] * (ABNORMAL) CBC with auto differential (11/25/2024 12:46 PM CDT) [facility] WBC 4.03 3.80 - 9.90 K/cumm Hgb 8.3(L) 11.9 - 15.5 g/dL [facility] Hct 26.0(L) 35.6 - 45.5 % [facility] Plt 136(L) 150 - 400 K/cumm [facility] MPV 11.0 9.1 - 12.3 fL [facility] RBC 3.01(L) 3.90 - 5.20 M/cumm [facility] MCV 86.4 81.3 - 96.4 fL [facility] MCH 27.6 27.1 - 33.3 pg [facility] MCHC 31.9(L) 32.3 - 35.7 g/dL [facility] RDW CV 16.4(H) 11.1 - 14.9 % [facility] RDW SD 50.4(H) 35.7 - 48.1 fL [facility] NRBC abs 0.00 0.00 - 0.01 K/cumm [facility] Blood 11/25/2024 12:4 6 PM CDT 11/25/2024 1:15 PM CDT Baltazar Manzano MD LAB BLOOD ORDERABLES F inal Result Performing Organization Address City/[facility]/ZIP Co de Phone Number [facility] [place] [address] * Transfuse RBC (11/25/2024 12:15 PM CDT) Blood Baltazar Manzano MD BLOOD TRANSFUSION ORDE EULA Final Result Performing Organization Address [facility] Co de Phone Number [facility] of [employer] [place] [address] * (ABNORMAL) HIT Antibodies with Reflex to Serotonin Release Assay (MELODY) (11/25/2024 8:09 AM CDT) HIT antibodies Positive HIT Ab EDNA Units 2.85(H) 0.00 - 0.99 units/mL [facility] Comment: A positive HIT Ab (heparin [...] ORDERABLES F inal Result Performing Organization Address [facility] de Phone Number [facility] of [employer] [place] [address] * Serotonin release assay (11/25/2024 8:09 AM CDT) Pathologist [facility] MELODY low dose heparin 2 % MELODY high dose heparin 2 % [facility] MELODY Negative [facility] MELODY interpretation A positive result requires release [...] developed and its performance characteristics determined by [employer]. It has not been cleared or approved by the [place] Food and Drug Administration. This test is used for clinical purposes. It should not be regarded as investigational or for research. This laboratory is certified under the Clinical Laboratory Improvement Amendments (CLIA) as qualified to perform high complexity clinical laboratory testing. JLUIANA RIBERA Comment:Performed by: [facility]. [address] [place] [id number] Blood 11/25/2024 8:09 AM CDT 11/25/2024 8:22 AM CDT Narrative JULIANA RIBERA - 11/28/2024 3:40 PM CDT HIT antibody screen positive. Confirmatory testing by Serotonin Release sent to Blood Center [facility]. Baltazar Manzano MD LAB BLOOD ORDERABLES F inal Result [facility] Department [place] [address] * (ABNORMAL) aPTT (11/25/2024 8:09 AM CDT) aPTT 92(H) 28 - 38 sec Comment: Interpretive Data Heparin therapeutic range: 66.0 - 100.0 seconds. Range based on correlation with therapeutic heparin activity range of 0.3 - 0.7 Units/mL. Current interpretive data was last revised on 2023. Blood 11/25/2024 8:09 AM CDT 11/25/2024 8:23 AM CDT Narrative JULIANA RIBERA - 11/25/2024 8:52 AM CDT STAT PTT [...] ORDERABLES Final R esult Performing Organization Address [facility]/ZIP Co de Phone Number JULIANA [facility] Department [place] [address] * (ABNORMAL) eGFR (11/24/2024 9:19 PM CDT) eGFR 42(L) >=60 mL/min/1. 73 [...] ORDERABLES F inal Result Performing Organization Address City/[facility]/ZIP Co de Phone Number JULIANA [facility] Department [place] [address] * Differential, auto (11/24/2024 9:19 PM CDT) Pathologist [facility] Neutrophil abs 2.81 1.50 - 6.50 K/cumm Imm gran abs 0.01 0.00 - 0.10 K/cumm [facility] Lymphocyte abs 1.04 0.80 - 3.30 K/cumm [facility] Monocyte abs 0.34 0.20 - 0.80 K/cumm [facility] Eosinophil abs 0.14 0.00 - 0.50 K/cumm [facility] Basophil abs 0.04 0.00 - 0.10 K/cumm [facility] Neutrophil pct 64.2 % [facility] Comment: Interpretive Data Percent cell count reference ranges are not reported, since discordance with absolute values may lead to misinterpretation of CBC data. Current Interpretive Data was last revised on 2017. Imm gran pct 0.2 % [facility] Comment: Interpretive Data Percent cell count reference ranges are not reported, since discordance with absolute values may lead to misinterpretation of CBC data. Current Interpretive Data was last revised on 2017. Lymphocyte pct 23.7 % [facility] Comment: Interpretive Data Percent cell count reference ranges are not reported, since discordance with absolute values may lead to misinterpretation of CBC data. Current Interpretive Data was last revised on 2017. Monocyte pct 7.8 % [facility] Comment: Interpretive Data Percent cell count reference ranges are not reported, since discordance with absolute values may lead to misinterpretation of CBC data. Current Interpretive Data was last revised on 2017. Eosinophil pct 3.2 % [facility] Comment: Interpretive Data Percent cell count reference ranges are not reported, since discordance with absolute values may lead to misinterpretation of CBC data. Current Interpretive Data was last revised on 2017. Basophil pct 0.9 % [facility] Comment: Interpretive Data Percent cell count reference ranges are not reported, since discordance with absolute values may lead to misinterpretation of CBC data. Current Interpretive Data was last revised on 2017. Blood 11/24/2024 9:19 PM CDT 11/24/2024 10:42 PM CDT Baltazar Manzano MD LAB BLOOD ORDERABLES F inal Result Performing Organization Address [facility]/ZIP Co de Phone Number [facility] Department [place] [address] * (ABNORMAL) CBC with auto differential (11/24/2024 9:19 PM CDT) [facility] WBC 4.38 3.80 - 9.90 K/cumm Hgb 6.6(L) 11.9 - 15.5 g/dL [facility] Hct 21.7(L) 35.6 - 45.5 % [facility] Plt 142(L) 150 - 400 K/cumm [facility] MPV 11.4 9.1 - 12.3 fL [facility] RBC 2.46(L) 3.90 - 5.20 M/cumm [facility] MCV 88.2 81.3 - 96.4 fL [facility] MCH 26.8(L) 27.1 - 33.3 pg [facility] MCHC 30.4(L) 32.3 - 35.7 g/dL [facility] RDW CV 16.4(H) 11.1 - 14.9 % [facility] RDW SD 52.0(H) 35.7 - 48.1 fL [facility] NRBC abs 0.00 0.00 - 0.01 K/cumm [facility] Blood 11/24/2024 9:19 PM CDT 11/24/2024 10:42 PM CDT Baltazar Manzano MD LAB BLOOD ORDERABLES F inal Result [facility] Department [place] [address] * (ABNORMAL) aPTT (11/24/2024 9:19 PM CDT) Pathologist [facility] aPTT 63(H) 28 - 38 sec Comment: Interpretive Data Heparin therapeutic range: 66.0 - 100.0 seconds. Range based on correlation with therapeutic heparin activity range of 0.3 - 0.7 Units/mL. Current interpretive data was last revised on 2023. Blood 11/24/2024 9:19 PM CDT 11/24/2024 10:43 PM CDT Baltazar Manzano MD LAB BLOOD ORDERABLES F inal Result Performing Organization Address [facility] Co de Phone Number [facility] [employer] [place] [address] * (ABNORMAL) Protime-INR (11/24/2024 9:19 PM CDT) PT 13.5(H) 9.7 - 13.0 sec INR 1.24(H) 0.90 - 1.20 [facility] Comment: Interpretive data Oral anticoagulant therapeutic ranges: Venous thromboembolism prophylaxis or treatment: 2.0-3.0 CARDIOLOGY Standard range: 2.0-3.0 High-intensity range: 2.5-3.5 Refer to indication-specific guidelines for appropriate target ranges for prosthetic heart valve replacement. Current interpretive data was last revised on 2019. Blood 11/24/2024 9:19 PM CDT 11/24/2024 10:43 PM CDT Kandis Spencer MD LAB BLOOD ORDERABLES Final Resu lt Performing Organization Address [facility] Co de Phone Number [facility] [employer] [place] [address] * Magnesium (11/24/2024 9:19 PM CDT) Magnesium 2.1 1.4 - 2.5 mg/dL Blood 11/24/2024 9:19 PM CDT 11/24/2024 10:40 PM CDT Baltazar Manzano MD LAB BLOOD ORDERABLES F inal Result Performing Organization Address [facility] de Phone Number [facility] [place] [address] * (ABNORMAL) Basic metabolic panel (11/24/2024 9:19 PM CDT) Sodium 141 135 - 145 mmol/L Potassium, pl 3.6 3.3 - 4.9 mmol/L [facility] Chloride 106 97 - 110 mmol/L [facility] CO2 26 22 - 32 mmol/L [facility] Anion gap 9 2 - 15 mmol/L [facility] BUN 13 6 - 25 mg/dL [facility] Creatinine 1.38(H) 0.60 - 1.10 mg/dL [facility] Glucose 112 70 - 199 mg/dL [facility] Comment: Interpretive Data Fasting glucose >/= [...] 2022. Calcium 8.5 8.5 - 10.3 mg/dL [facility] Blood 11/24/2024 9:19 PM CDT 11/24/2024 10:40 PM CDT Baltazar Manzano MD LAB BLOOD ORDERABLES F inal Result [facility] Department [place] [address] * Check Sample (11/24/2024 12:21 PM CDT) ABO Rh A Positive [facility] OTHER 11/24/2024 12:2 1 PM CDT 11/24/2024 12:58 PM CDT Baltazar Manzano MD LAB BLOOD ORDERABLES F inal Result Performing Organization Address [facility]/ZIP Co de Phone Number [facility] [place] [address] [facility] * Type and screen (11/24/2024 10:53 AM CDT) ABO Rh A Positive Man, indirect Negative [facility] Blood 11/24/2024 10:5 3 AM CDT 11/24/2024 11:05 AM CDT Narrative [facility] - 11/24/2024 11:55 AM CDT Has the patient had Daratumumab or Isatuximab in the past 6 months?->Unknown Baltazar Manzano MD LAB BLOOD BANK TEST OR DERABLES Final Result Performing Organization Address [facility] Co de Phone Number [facility] [place] [address] * Prepare RBC: 1 Units (11/24/2024 10:20 AM CDT) Product code [id number] Unit Number [id number] [facility] Product Blood Type ANEG [facility] Dispense Status PRESUMED TRANSFUSED [facility] Blood 11/24/2024 10:2 0 AM CDT 11/24/2024 10:19 AM CDT Narrative [facility] - 11/26/2024 12:56 AM CDT Specify Procedure:->pacemaker removal and HB 7.2, patinet on heparin drip Are special requirements needed? (All products are leukoreduced and CMV- safe)- >No Date required:-[id number] LRRBC # of [id number] Reasons:-Hold for procedure (specify procedure)} Baltazar Manzano MD BLOOD BANK PRODUCT ORD ERABLES Final Result Performing Organization Address [facility]/ZIP Co de Phone Number [facility] Department [place] [address] * (ABNORMAL) eGFR (11/23/2024 9:58 PM CDT) Pathologist [facility] eGFR 36(L) >=60 mL/min/1. 73 m2 Comment: [...] PM CDT 11/23/2024 10:26 PM CDT Baltazar Maznano MD LAB BLOOD ORDERABLES F inal Result [facility] Department [place] [address] * Differential, auto (11/23/2024 9:58 PM CDT) [facility] Neutrophil abs 3.71 1.50 - 6.50 K/cumm Imm gran abs 0.01 0.00 - 0.10 K/cumm [facility] Lymphocyte abs 1.20 0.80 - 3.30 K/cumm [facility] Monocyte abs 0.35 0.20 - 0.80 K/cumm [facility] Eosinophil abs 0.19 0.00 - 0.50 K/cumm [facility] Basophil abs 0.04 0.00 - 0.10 K/cumm [facility] Neutrophil pct 67.4 % [facility] Comment: Interpretive Data Percent cell count reference ranges are not reported, since discordance with absolute values may lead to misinterpretation of CBC data. Current Interpretive Data was last revised on 2017. Imm gran pct 0.2 % [facility] Comment: Interpretive Data Percent cell count reference ranges are not reported, since discordance with absolute values may lead to misinterpretation of CBC data. Current Interpretive Data was last revised on 2017. Lymphocyte pct 21.8 % [facility] Comment: Interpretive Data Percent cell count reference ranges are not reported, since discordance with absolute values may lead to misinterpretation of CBC data. Current Interpretive Data was last revised on 2017. Monocyte pct 6.4 % [facility] Comment: Interpretive Data Percent cell count reference ranges are not reported, since discordance with absolute values may lead to misinterpretation of CBC data. Current Interpretive Data was last revised on 2017. Eosinophil pct 3.5 % JULIANA [facility] Comment: Interpretive Data Percent cell count reference ranges are not reported, since discordance with absolute values may lead to misinterpretation of CBC data. Current Interpretive Data was last revised on 2017. Basophil pct 0.7 % [facility] Comment: Interpretive Data Percent cell count reference ranges are not reported, since discordance with absolute values may lead to misinterpretation of CBC data. Current Interpretive Data was last revised on 2017. Blood 11/23/2024 9:58 PM CDT 11/23/2024 10:25 PM CDT Baltazar Manzano MD LAB BLOOD ORDERABLES F inal Result JULIANA [facility] Department [place] [address] * Heparin anti factor Xa activity (11/23/2024 9:58 PM CDT) Anti Factor Xa 0.50 IUnits/mL Comment: Interpretive [...] CDT 11/23/2024 10:20 PM CDT Marilu Kirkland FUND ACCOUNTING MANAGER LAB BLOOD ORDERABL ES Final Result [facility] Department [place] [address] * (ABNORMAL) CBC with auto differential (11/23/2024 9:58 PM CDT) [facility] WBC 5.50 3.80 - 9.90 K/cumm Hgb 7.2(L) 11.9 - 15.5 g/dL [facility] Hct 23.5(L) 35.6 - 45.5 % [facility] Plt 170 150 - 400 K/cumm [facility] MPV 11.6 9.1 - 12.3 fL [facility] RBC 2.67(L) 3.90 - 5.20 M/cumm [facility] MCV 88.0 81.3 - 96.4 fL [facility] MCH 27.0(L) 27.1 - 33.3 pg [facility] MCHC 30.6(L) 32.3 - 35.7 g/dL [facility] RDW CV 16.1(H) 11.1 - 14.9 % [facility] RDW SD 50.2(H) 35.7 - 48.1 fL [facility] NRBC abs 0.00 0.00 - 0.01 K/cumm [facility] Blood 11/23/2024 9:58 PM CDT 11/23/2024 10:25 PM CDT Baltazar Manzano MD LAB BLOOD ORDERABLES F inal Result Performing Organization Address [facility] de Phone Number [facility] Department [place] [address] * (ABNORMAL) aPTT (11/23/2024 9:58 PM CDT) [...] ORDERABLES F inal Result Performing Organization Address [facility] de Phone Number [facility] Department [place] [address] * (ABNORMAL) Protime-INR (11/23/2024 9:58 PM CDT) PT 13.5(H) 9.7 - 13.0 sec INR 1.24(H) 0.90 - 1.20 [facility] Comment: Interpretive data Oral anticoagulant therapeutic ranges: Venous thromboembolism prophylaxis or treatment: 2.0-3.0 CARDIOLOGY Standard range: 2.0-3.0 High-intensity range: 2.5-3.5 Refer to indication-specific guidelines for appropriate target ranges for prosthetic heart valve replacement. Current interpretive data was last revised on 2019. Blood 11/23/2024 9:58 PM CDT 11/23/2024 10:20 PM CDT Baltazar Manzano MD LAB BLOOD ORDERABLES F inal Result Performing Organization Address City/[facility] Co de Phone Number [facility] [place] [address] * Magnesium (11/23/2024 9:58 PM CDT) [facility] Magnesium 2.2 1.4 - 2.5 mg/dL Blood 11/23/2024 9:58 PM CDT 11/23/2024 10:26 PM CDT Baltazar Manzano MD LAB BLOOD ORDERABLES F inal Result Performing Organization Address [facility] de Phone Number [facility] [place] [address] * (ABNORMAL) Basic metabolic panel (11/23/2024 9:58 PM CDT) [facility] Sodium 141 135 - 145 mmol/L Potassium, pl 4.0 3.3 - 4.9 mmol/L [facility] Chloride 106 97 - 110 mmol/L [facility] CO2 25 22 - 32 mmol/L [facility] Anion gap 10 2 - 15 mmol/L [facility] BUN 13 6 - 25 mg/dL [facility] Creatinine 1.56(H) 0.60 - 1.10 mg/dL [facility] Glucose 98 70 - 199 mg/dL [facility] Comment: Interpretive Data Fasting glucose >/= [...] 2022. Calcium 8.9 8.5 - 10.3 mg/dL [facility] Blood 11/23/2024 9:58 PM CDT 11/23/2024 10:26 PM CDT Baltazar Manzano MD LAB BLOOD ORDERABLES F inal Result Performing Organization Address [facility] Co de Phone Number [facility] Department of [employer] [place] [address] * (ABNORMAL) aPTT (11/22/2024 11:04 PM CDT) [facility] Signature aPTT 80(H) 28 - 38 sec Comment: Interpretive Data Heparin therapeutic range: 66.0 - 100.0 seconds. Range based on correlation with therapeutic heparin activity range of 0.3 - 0.7 Units/mL. Current interpretive data was last revised on 2023. Blood 11/22/2024 11:0 4 PM CDT 11/22/2024 11:14 PM CDT Narrative [facility] - 11/23/2024 12:02 AM CDT STAT [...] ORDERABLES Final R esult Performing Organization Address [facility]/ZIP Co de Phone Number [facility] Department of [employer] [place] [address] * Protime-INR (11/22/2024 11:04 PM CDT) PT 12.9 9.7 - 13.0 sec INR 1.19 0.90 - 1.20 [facility] Comment: Interpretive data Oral anticoagulant therapeutic [...] ORDERABLES F inal Result Performing Organization Address [facility] Co de Phone Number [facility] [employer] [place] [address] * (ABNORMAL) aPTT (11/21/2024 10:51 PM CDT) [...] ORDERABLES Final Resu lt Performing Organization Address [facility]/ZIP Co de Phone Number [facility] [employer] [place] [address] * (ABNORMAL) Protime-INR (11/21/2024 10:51 PM CDT) PT 13.5(H) 9.7 - 13.0 sec INR 1.24(H) 0.90 - 1.20 [facility] Comment: Interpretive data Oral anticoagulant therapeutic ranges: Venous thromboembolism prophylaxis or treatment: 2.0-3.0 CARDIOLOGY Standard range: 2.0-3.0 High-intensity range: 2.5-3.5 Refer to indication-specific guidelines for appropriate target ranges for prosthetic heart valve replacement. Current interpretive data was last revised on 2019. Blood 11/21/2024 10:5 1 PM CDT 11/21/2024 11:29 PM CDT Kandis Spencer MD LAB BLOOD ORDERABLES Final Resu lt [facility] Department [place] [address] * (ABNORMAL) eGFR (11/20/2024 8:45 PM CDT) [...] ORDERABLES Final Resu lt JULIANA RIBERA [facility] Department [place] [address] * Differential, auto (11/20/2024 8:45 PM CDT) Neutrophil abs 2.97 1.50 - 6.50 K/cumm Imm gran abs 0.04 0.00 - 0.10 K/cumm [facility] Lymphocyte abs 1.02 0.80 - 3.30 K/cumm [facility] Monocyte abs 0.33 0.20 - 0.80 K/cumm [facility] Eosinophil abs 0.17 0.00 - 0.50 K/cumm [facility] Basophil abs 0.03 0.00 - 0.10 K/cumm [facility] Neutrophil pct 65.1 % [facility] Comment: Interpretive Data Percent cell count reference ranges are not reported, since discordance with absolute values may lead to misinterpretation of CBC data. Current Interpretive Data was last revised on 2017. Imm gran pct 0.9 % [facility] Comment: Interpretive Data Percent cell count reference ranges are not reported, since discordance with absolute values may lead to misinterpretation of CBC data. Current Interpretive Data was last revised on 2017. Lymphocyte pct 22.4 % [facility] Comment: Interpretive Data Percent cell count reference ranges are not reported, since discordance with absolute values may lead to misinterpretation of CBC data. Current Interpretive Data was last revised on 2017. Monocyte pct 7.2 % [facility] Comment: Interpretive Data Percent cell count reference ranges are not reported, since discordance with absolute values may lead to misinterpretation of CBC data. Current Interpretive Data was last revised on 2017. Eosinophil pct 3.7 % [facility] Comment: Interpretive Data Percent cell count reference ranges are not reported, since discordance with absolute values may lead to misinterpretation of CBC data. Current Interpretive Data was last revised on 2017. Basophil pct 0.7 % [facility] Comment: Interpretive Data Percent cell count reference ranges are not reported, since discordance with absolute values may lead to misinterpretation of CBC data. Current Interpretive Data was last revised on 2017. Blood 11/20/2024 8:45 PM CDT 11/20/2024 9:11 PM CDT us Kandis Spencer MD LAB BLOOD ORDERABLES Final Resu lt Performing Organization Address [facility] Co de Phone Number [facility] Department [place] [address] * (ABNORMAL) CBC with auto differential (11/20/2024 8:45 PM CDT) Pathologist [facility] WBC 4.56 3.80 - 9.90 K/cumm Hgb 7.5(L) 11.9 - 15.5 g/dL [facility] Hct 24.4(L) 35.6 - 45.5 % [facility] Plt 151 150 - 400 K/cumm [facility] MPV 11.1 9.1 - 12.3 fL [facility] RBC 2.78(L) 3.90 - 5.20 M/cumm [facility] MCV 87.8 81.3 - 96.4 fL [facility] MCH 27.0(L) 27.1 - 33.3 pg [facility] MCHC 30.7(L) 32.3 - 35.7 g/dL [facility] RDW CV 15.5(H) 11.1 - 14.9 % [facility] RDW SD 48.6(H) 35.7 - 48.1 fL [facility] NRBC abs 0.00 0.00 - 0.01 K/cumm [facility] Blood 11/20/2024 8:45 PM CDT 11/20/2024 9:11 PM CDT us Kandis Spencer MD LAB BLOOD ORDERABLES Final Resu lt Performing Organization Address City/[facility]/ZIP Co de Phone Number [facility] Department [place] [address] * (ABNORMAL) aPTT (11/20/2024 8:45 PM CDT) aPTT 76(H) 28 - 38 sec Comment: Interpretive Data Heparin therapeutic range: 66.0 - 100.0 seconds. Range based on correlation with therapeutic heparin activity range of 0.3 - 0.7 Units/mL. Current interpretive data was last revised on 2023. Blood 11/20/2024 8:45 PM CDT 11/20/2024 9:08 PM CDT Narrative JULIANA RIBERA - 11/20/2024 9:25 PM CDT STAT PTT [...] LAB BLOOD ORDERABLES Final R esult JULIANA [facility] Department [place] [address] * (ABNORMAL) Protime-INR (11/20/2024 8:45 PM CDT) PT 14.0(H) 9.7 - 13.0 sec INR 1.29(H) 0.90 - 1.20 [facility] Comment: Interpretive [...] ORDERABLES F inal Result Performing Organization Address City/[facility]/ZIP Co de Phone Number [facility] Department [place] [address] * Magnesium (11/20/2024 8:45 PM CDT) Pathologist [facility] Magnesium 2.1 1.4 - 2.5 mg/dL Blood 11/20/2024 8:45 PM CDT 11/20/2024 9:11 PM CDT Ranulfo Gentile MD LAB BLOOD ORDERABLES Final R esult Performing Organization Address [facility] Co de Phone Number [facility] Department [place] [address] * (ABNORMAL) Basic metabolic panel (11/20/2024 8:45 PM CDT) [facility] Sodium 139 135 - 145 mmol/L Potassium, pl 3.8 3.3 - 4.9 mmol/L [facility] Chloride 106 97 - 110 mmol/L [facility] CO2 26 22 - 32 mmol/L [facility] Anion gap 7 2 - 15 mmol/L [facility] BUN 9 6 - 25 mg/dL [facility] Creatinine 1.31(H) 0.60 - 1.10 mg/dL [facility] Glucose 96 70 - 199 mg/dL [facility] Comment: Interpretive Data Fasting glucose >/= [...] 2022. Calcium 8.8 8.5 - 10.3 mg/dL [facility] Blood 11/20/2024 8:45 PM CDT 11/20/2024 9:11 PM CDT us Kandis Spencer MD LAB BLOOD ORDERABLES Final Resu lt Performing Organization Address [facility] Co de Phone Number [facility] [place] [address] * (ABNORMAL) eGFR (11/19/2024 8:49 PM CDT) eGFR 46(L) >=60 mL/min/1. 73 m2 Comment: [...] PM CDT 11/19/2024 9:44 PM CDT us aKndis Spencer MD LAB BLOOD ORDERABLES Final Resu lt Performing Organization Address City/[facility]/ZIP Co de Phone Number [facility] Department [place] [address] * Differential, auto (11/19/2024 8:49 PM CDT) Neutrophil abs 4.17 1.50 - 6.50 K/cumm Imm gran abs 0.02 0.00 - 0.10 K/cumm [facility] Lymphocyte abs 1.03 0.80 - 3.30 K/cumm [facility] Monocyte abs 0.41 0.20 - 0.80 K/cumm [facility] Eosinophil abs 0.17 0.00 - 0.50 K/cumm [facility] Basophil abs 0.04 0.00 - 0.10 K/cumm [facility] Neutrophil pct 71.5 % [facility] Comment: Interpretive Data Percent cell count reference ranges are not reported, since discordance with absolute values may lead to misinterpretation of CBC data. Current Interpretive Data was last revised on 2017. Imm gran pct 0.3 % [facility] Comment: Interpretive Data Percent cell count reference ranges are not reported, since discordance with absolute values may lead to misinterpretation of CBC data. Current Interpretive Data was last revised on 2017. Lymphocyte pct 17.6 % [facility] Comment: Interpretive Data Percent cell count reference ranges are not reported, since discordance with absolute values may lead to misinterpretation of CBC data. Current Interpretive Data was last revised on 2017. Monocyte pct 7.0 % [facility] Comment: Interpretive Data Percent cell count reference ranges are not reported, since discordance with absolute values may lead to misinterpretation of CBC data. Current Interpretive Data was last revised on 2017. Eosinophil pct 2.9 % [facility] Comment: Interpretive Data Percent cell count reference ranges are not reported, since discordance with absolute values may lead to misinterpretation of CBC data. Current Interpretive Data was last revised on 2017. Basophil pct 0.7 % [facility] Comment: Interpretive Data Percent cell count reference ranges are not reported, since discordance with absolute values may lead to misinterpretation of CBC data. Current Interpretive Data was last revised on 2017. Blood 11/19/2024 8:49 PM CDT 11/19/2024 9:44 PM CDT us Kandis Spencer MD LAB BLOOD ORDERABLES [facility] [place] [address] * (ABNORMAL) CBC with auto differential (11/19/2024 8:49 PM CDT) [facility] WBC 5.84 3.80 - 9.90 K/cumm Hgb 7.7(L) 11.9 - 15.5 g/dL [facility] Hct 24.9(L) 35.6 - 45.5 % [facility] Plt 170 150 - 400 K/cumm [facility] MPV 11.3 9.1 - 12.3 fL [facility] RBC 2.88(L) 3.90 - 5.20 M/cumm [facility] MCV 86.5 81.3 - 96.4 fL [facility] MCH 26.7(L) 27.1 - 33.3 pg [facility] MCHC 30.9(L) 32.3 - 35.7 g/dL [facility] RDW CV 15.1(H) 11.1 - 14.9 % [facility] RDW SD 47.3 35.7 - 48.1 fL [facility] NRBC abs 0.00 0.00 - 0.01 K/cumm [facility] Blood 11/19/2024 8:49 PM CDT 11/19/2024 9:44 PM CDT us Kandis Spencer MD LAB BLOOD ORDERABLES Final Resu lt [facility] Department [place] [address] * (ABNORMAL) aPTT (11/19/2024 8:49 PM CDT) [facility] aPTT 72(H) 28 - 38 sec Comment: Interpretive Data Heparin therapeutic range: 66.0 - 100.0 seconds. Range based on correlation with therapeutic heparin activity range of 0.3 - 0.7 Units/mL. Current interpretive data was last revised on 2023. Blood 11/19/2024 8:49 PM CDT 11/19/2024 9:47 PM CDT us Baltazar Manzano MD LAB BLOOD ORDERABLES F inal Result Performing Organization Address City/[facility] Co de Phone Number [facility] Department [place] [address] * (ABNORMAL) Protime-INR (11/19/2024 8:49 PM CDT) PT 14.1(H) 9.7 - 13.0 sec INR 1.30(H) 0.90 - 1.20 [facility] Comment: Interpretive data Oral anticoagulant therapeutic [...] ORDERABLES Final Resu lt Performing Organization Address [facility] Co de Phone Number [facility] Department [place] [address] * Magnesium (11/19/2024 8:49 PM CDT) Pathologist [facility] Magnesium 2.3 1.4 - 2.5 mg/dL Blood 11/19/2024 8:49 PM CDT 11/19/2024 9:44 PM CDT us Ranulfo Gentile MD LAB BLOOD ORDERABLES Final R esult Performing Organization Address [facility] Co de Phone Number [facility] of [employer] [place] [address] * (ABNORMAL) Hepatic function panel (11/19/2024 8:49 PM CDT) [facility] Bilirubin, total <0.2 0.1 - 1.2 mg/dL Comment:Reviewed Bilirubin, direct <0.2 0.1 - 0.3 mg/dL [facility] Protein, pl 7.3 6.5 - 8.5 g/dL [facility] Albumin 2.9(L) 3.5 - 5.0 g/dL [facility] Alk phos 88 40 - 130 Units/L [facility] ALT 23 7 - 45 Units/L [facility] AST 34 10 - 45 Units/L [facility] Blood 11/19/2024 8:49 PM CDT 11/19/2024 9:44 PM CDT Baltazar Manzano MD LAB BLOOD ORDERABLES F inal Result [facility] Department [place] [address] * (ABNORMAL) Basic metabolic panel (11/19/2024 8:49 PM CDT) [facility] Sodium 140 135 - 145 mmol/L Potassium, pl 3.8 3.3 - 4.9 mmol/L [facility] Chloride 105 97 - 110 mmol/L [facility] CO2 26 22 - 32 mmol/L [facility] Anion gap 9 2 - 15 mmol/L [facility] BUN 12 6 - 25 mg/dL [facility] Creatinine 1.27(H) 0.60 - 1.10 mg/dL [facility] Glucose 89 70 - 199 mg/dL [facility] Comment: Interpretive Data Fasting glucose >/= [...] 2022. Calcium 9.1 8.5 - 10.3 mg/dL [facility]UL[facility]NA [facility] Blood 11/19/2024 8:49 PM CDT 11/19/2024 9:44 PM CDT us Kandis Spencer MD LAB BLOOD ORDERABLES Final Resu lt JULIANA [facility] Department [place] [address] * TRANSESOPHAGEAL ECHO (NEVAEH) W DOPPLER/CF WO CONTRAST (11/19/2024 1:42 PM CDT) Anatomical Region Laterality Modality Echocardiography 11/19/2024 12:5 0 PM CDT Narrative 11/20/2024 9:56 AM CDT [facility] [place] [address] Transesophageal Echocardiographic Report Patient Name: KENDAL CISNEROS J : 1955 (69y 10m) Gender: F Study Date: 11/19/2024 12:50:50 PM Ht(Inch): Wt(LB): BSA: Online [employer]er: Location: [id number] Order Provider: KANDIS SPENCER BMI: Ref.Provider: KANDIS [...] Procedure Note Palmer Deluca MD - 11/20/2024 [facility] [place] [address] Transesophageal Echocardiographic Report Patient Name: KENDAL CISNEROS J : 1955 (69y 10m) Gender: F Study Date: 11/19/2024 12:50:50 PM Ht(Inch): Wt(LB): BSA: [employer]er: Location: [id number] Order Provider: KANDIS SPENCER BMI: Ref.Provider: KANDIS SPENCER Procedures: Transesophageal Echo Report: Echocardiography, transesophageal, real-timewith image documentation (2D) including probe placement, image acquisition,interpretation, and report; Doppler echocardiography, limited pulsed wave and/or continuouswave with spectral display; Doppler echocardiography color flow velocity mapping. Performing Physician: Performed by Palmer Deluca & Calvin Benjamin TEEprobe placed by Calvin Cassidy Consent: Informed consent was obtained from the [...] ORDERABLES Final Resu lt JULIANA RIBERA [facility] Department [place] [address] * Differential, auto (11/18/2024 6:01 PM CDT) Neutrophil abs 3.19 1.50 - 6.50 K/cumm Imm gran abs 0.02 0.00 - 0.10 K/cumm [facility] Lymphocyte abs 0.96 0.80 - 3.30 K/cumm [facility] Monocyte abs 0.33 0.20 - 0.80 K/cumm [facility] Eosinophil abs 0.17 0.00 - 0.50 K/cumm [facility] Basophil abs 0.04 0.00 - 0.10 K/cumm [facility] Neutrophil pct 67.8 % [facility] Comment: Interpretive Data Percent cell count reference ranges are not reported, since discordance with absolute values may lead to misinterpretation of CBC data. Current Interpretive Data was last revised on 2017. Imm gran pct 0.4 % [facility] Comment: Interpretive Data Percent cell count reference ranges are not reported, since discordance with absolute values may lead to misinterpretation of CBC data. Current Interpretive Data was last revised on 2017. Lymphocyte pct 20.4 % [facility] Comment: Interpretive Data Percent cell count reference ranges are not reported, since discordance with absolute values may lead to misinterpretation of CBC data. Current Interpretive Data was last revised on 2017. Monocyte pct 7.0 % [facility] Comment: Interpretive Data Percent cell count reference ranges are not reported, since discordance with absolute values may lead to misinterpretation of CBC data. Current Interpretive Data was last revised on 2017. Eosinophil pct 3.6 % [facility] Comment: Interpretive Data Percent cell count reference ranges are not reported, since discordance with absolute values may lead to misinterpretation of CBC data. Current Interpretive Data was last revised on 2017. Basophil pct 0.8 % [facility] Comment: Interpretive Data Percent cell count reference ranges are not reported, since discordance with absolute values may lead to misinterpretation of CBC data. Current Interpretive Data was last revised on 2017. Blood 11/18/2024 6:01 PM CDT 11/18/2024 6:24 PM CDT us Kandis Spencer MD LAB BLOOD ORDERABLES Final Resu lt [facility] Department [place] [address] * (ABNORMAL) CBC with auto differential (11/18/2024 6:01 PM CDT) [facility] WBC 4.71 3.80 - 9.90 K/cumm Hgb 7.8(L) 11.9 - 15.5 g/dL [facility] Hct 25.1(L) 35.6 - 45.5 % [facility] Plt 166 150 - 400 K/cumm [facility] MPV 11.1 9.1 - 12.3 fL [facility] RBC 2.90(L) 3.90 - 5.20 M/cumm [facility] MCV 86.6 81.3 - 96.4 fL [facility] MCH 26.9(L) 27.1 - 33.3 pg [facility] MCHC 31.1(L) 32.3 - 35.7 g/dL [facility] RDW CV 14.9 11.1 - 14.9 % [facility] RDW SD 47.3 35.7 - 48.1 fL [facility] NRBC abs 0.00 0.00 - 0.01 K/cumm [facility] Blood 11/18/2024 6:01 PM CDT 11/18/2024 6:24 PM CDT us Kandis Spencer MD LAB BLOOD ORDERABLES Final Resu lt [facility] Department [place] [address] * (ABNORMAL) aPTT (11/18/2024 6:01 PM CDT) [facility] aPTT 76(H) 28 - 38 sec Comment: Interpretive Data Heparin therapeutic range: 66.0 - 100.0 seconds. Range based on correlation with therapeutic heparin activity range of 0.3 - 0.7 Units/mL. Current interpretive data was last revised on 2023. Blood 11/18/2024 6:01 PM CDT 11/18/2024 6:18 PM CDT Narrative [facility] - 11/18/2024 6:43 PM CDT STAT [...] ORDERABLES Final R esult Performing Organization Address [facility] Co de Phone Number [facility] [employer] [place] [address] * (ABNORMAL) Protime-INR (11/18/2024 6:01 PM CDT) PT 15.6(H) 9.7 - 13.0 sec INR 1.43(H) 0.90 - 1.20 [facility] Comment: Interpretive data Oral anticoagulant therapeutic ranges: Venous thromboembolism prophylaxis or treatment: 2.0-3.0 CARDIOLOGY Standard range: 2.0-3.0 High-intensity range: 2.5-3.5 Refer to indication-specific guidelines for appropriate target ranges for prosthetic heart valve replacement. Current interpretive data was last revised on 2019. Blood 11/18/2024 6:01 PM CDT 11/18/2024 6:18 PM CDT Baltazar Manzano MD LAB BLOOD ORDERABLES F inal Result Performing Organization Address [facility] Co de Phone Number [facility] [employer] [place] [address] * Magnesium (11/18/2024 6:01 PM CDT) Pathologist [facility] Magnesium 2.2 1.4 - 2.5 mg/dL Blood 11/18/2024 6:01 PM CDT 11/18/2024 6:24 PM CDT us Ranulfo Gentile MD LAB BLOOD ORDERABLES Final R esult [facility] Department [place] [address] * (ABNORMAL) Basic metabolic panel (11/18/2024 6:01 PM CDT) Pathologist [facility] Sodium 139 135 - 145 mmol/L Potassium, pl 3.8 3.3 - 4.9 mmol/L [facility] Chloride 106 97 - 110 mmol/L [facility] CO2 26 22 - 32 mmol/L [facility] Anion gap 7 2 - 15 mmol/L [facility] BUN 14 6 - 25 mg/dL [facility] Creatinine 1.40(H) 0.60 - 1.10 mg/dL [facility] Glucose 99 70 - 199 mg/dL [facility] Comment: Interpretive Data Fasting glucose >/= [...] 2022. Calcium 9.4 8.5 - 10.3 mg/dL [facility] Blood 11/18/2024 6:01 PM CDT 11/18/2024 6:24 PM CDT us Kandis Spencer MD LAB BLOOD ORDERABLES Final Resu lt Performing Organization Address City/[facility]/ZIP Co de Phone Number [facility] Department [place] [address] * (ABNORMAL) aPTT (11/18/2024 11:45 AM CDT) [facility] aPTT 74(H) 28 - 38 sec Comment: Interpretive Data Heparin therapeutic range: 66.0 - 100.0 seconds. Range based on correlation with therapeutic heparin activity range of 0.3 - 0.7 Units/mL. Current interpretive data was last revised on 2023. Blood 11/18/2024 11:4 5 AM CDT 11/18/2024 12:02 PM CDT Narrative JULIANA RIBERA - 11/18/2024 12:33 PM CDT STAT PTT [...] LAB BLOOD ORDERABLES Final R esult JULIANA [facility] Department [place] [address] * (ABNORMAL) eGFR (11/18/2024 4:25 AM CDT) [facility] eGFR 41(L) >=60 mL/min/1. 73 m2 Comment: [...] MD LAB BLOOD ORDERABLES Final Resu lt [facility] Department [place] [address] * Differential, auto (11/18/2024 4:25 AM CDT) Pathologist [facility] Neutrophil abs 2.93 1.50 - 6.50 K/cumm Imm gran abs 0.02 0.00 - 0.10 K/cumm [facility] Lymphocyte abs 1.32 0.80 - 3.30 K/cumm [facility] Monocyte abs 0.36 0.20 - 0.80 K/cumm [facility] Eosinophil abs 0.17 0.00 - 0.50 K/cumm [facility] Basophil abs 0.04 0.00 - 0.10 K/cumm [facility] Neutrophil pct 60.6 % [facility] Comment: Interpretive Data Percent cell count reference ranges are not reported, since discordance with absolute values may lead to misinterpretation of CBC data. Current Interpretive Data was last revised on 2017. Imm gran pct 0.4 % [facility] Comment: Interpretive Data Percent cell count reference ranges are not reported, since discordance with absolute values may lead to misinterpretation of CBC data. Current Interpretive Data was last revised on 2017. Lymphocyte pct 27.3 % [facility] Comment: Interpretive Data Percent cell count reference ranges are not reported, since discordance with absolute values may lead to misinterpretation of CBC data. Current Interpretive Data was last revised on 2017. Monocyte pct 7.4 % [facility] Comment: Interpretive Data Percent cell count reference ranges are not reported, since discordance with absolute values may lead to misinterpretation of CBC data. Current Interpretive Data was last revised on 2017. Eosinophil pct 3.5 % [facility] Comment: Interpretive Data Percent cell count reference ranges are not reported, since discordance with absolute values may lead to misinterpretation of CBC data. Current Interpretive Data was last revised on 2017. Basophil pct 0.8 % [facility] Comment: Interpretive Data Percent cell count reference ranges are not reported, since discordance with absolute values may lead to misinterpretation of CBC data. Current Interpretive Data was last revised on 2017. Blood 11/18/2024 4:25 AM CDT 11/18/2024 4:47 AM CDT us Kandis Spencer MD LAB BLOOD ORDERABLES Final Resu lt [facility] Department [place] [address] * (ABNORMAL) CBC with auto differential (11/18/2024 4:25 AM CDT) WBC 4.84 3.80 - 9.90 K/cumm Hgb 8.7(L) 11.9 - 15.5 g/dL [facility] Hct 28.6(L) 35.6 - 45.5 % [facility] Plt 183 150 - 400 K/cumm [facility] MPV 11.3 9.1 - 12.3 fL [facility] RBC 3.25(L) 3.90 - 5.20 M/cumm [facility] MCV 88.0 81.3 - 96.4 fL [facility] MCH 26.8(L) 27.1 - 33.3 pg [facility] MCHC 30.4(L) 32.3 - 35.7 g/dL [facility] RDW CV 14.8 11.1 - 14.9 % [facility] RDW SD 47.4 35.7 - 48.1 fL [facility] NRBC abs 0.00 0.00 - 0.01 K/cumm [facility] Blood 11/18/2024 4:25 AM CDT 11/18/2024 4:47 AM CDT Kandis Spencer MD LAB BLOOD ORDERABLES Final Resu lt Performing Organization Address [facility] de Phone Number [facility] Department of [employer] [place] [address] * (ABNORMAL) aPTT (11/18/2024 4:25 AM CDT) aPTT 60(H) 28 - 38 sec Comment: Interpretive Data Heparin therapeutic range: 66.0 - 100.0 seconds. Range based on correlation with therapeutic heparin activity range of 0.3 - 0.7 Units/mL. Current interpretive data was last revised on 2023. Blood 11/18/2024 4:25 AM CDT 11/18/2024 4:39 AM CDT Baltazar Manzano MD LAB BLOOD ORDERABLES F inal Result Performing Organization Address [facility] de Phone Number [facility] Department of [employer] [place] [address] * (ABNORMAL) Protime-INR (11/18/2024 4:25 AM CDT) PT 16.1(H) 9.7 - 13.0 sec INR 1.48(H) 0.90 - 1.20 [facility] Comment: Interpretive data Oral anticoagulant therapeutic [...] ORDERABLES Final Resu lt Performing Organization Address City/[facility] Co de Phone Number [facility] [place] [address] * Magnesium (11/18/2024 4:25 AM CDT) Magnesium 2.4 1.4 - 2.5 mg/dL Blood 11/18/2024 4:25 AM CDT 11/18/2024 4:47 AM CDT us Ranulfo Gentile MD LAB BLOOD ORDERABLES Final R esult Performing Organization Address [facility] de Phone Number [facility] Department [place] [address] * (ABNORMAL) Basic metabolic panel (11/18/2024 4:25 AM CDT) Sodium 141 135 - 145 mmol/L Potassium, pl 3.9 3.3 - 4.9 mmol/L [facility] Chloride 106 97 - 110 mmol/L [facility] CO2 26 22 - 32 mmol/L [facility] Anion gap 9 2 - 15 mmol/L [facility] BUN 13 6 - 25 mg/dL [facility] Creatinine 1.41(H) 0.60 - 1.10 mg/dL [facility] Glucose 98 70 - 199 mg/dL [facility] Comment: Interpretive Data Fasting glucose >/= [...] 2022. Calcium 9.7 8.5 - 10.3 mg/dL [facility] Blood 11/18/2024 4:25 AM CDT 11/18/2024 4:47 AM CDT Kandis Spencer MD LAB BLOOD ORDERABLES Final Resu lt Performing Organization Address City/[facility]/ZIP Co de Phone Number [facility] Department [place] [address] * Tissue aerobic and anaerobic culture and gram stain Bone Thoracic spine (11/17/2024 5:15 PM CDT) Direct Specimen Exam Stain: No polymorphonuclear leukocytes seen. No organisms seen. Report Final Report: No growth [facility] Bone (Thoracic spine) 11/17/2024 5:15 PM CDT 11/17/2024 8:56 PM CDT Narrative [facility] - 11/21/2024 10:18 AM CDT T10-T11 BONE/DISC BIOPSY Testing performed by [facility] Microbiology Laboratory ([phone]) Specimens submitted from normally sterile body sites [...] interpretive data was last revised on 2019. us Baltazar Manzano MD LAB MICROBIOLOGY - GEN ERAL ORDERABLES Final Result Performing Organization Address [facility] Co de Phone Number [facility] Department [place] [address] * IR Biopsy Deep Bone (11/17/2024 5:15 [...] was obtained. Prior to beginning the procedure, [place] Protocol was performed to confirm the patient's [...] was obtained. Prior to beginning the procedure, [place] Protocol was performed to confirm the patient's [...] by: Riley Joya MD Eliane Feng NP IMG IR PROCEDURES Final Result * Aerobic and anaerobic culture and gram stain Aspirate Thoracic spine (11/17/2024 5:15 PM CDT) Direct Specimen Exam Stain: No polymorphonuclear leukocytes seen. No organisms seen. Report Final Report: No growth [facility] Aspirate (Thoracic spine) 11/17/2024 5:15 PM CDT 11/17/2024 9:02 PM CDT Narrative [facility] - 11/21/2024 10:18 AM CDT T10-T11 ASPIRATE Testing performed by [facility]biology [facility] ([phone]) Specimens submitted from normally sterile body sites [...] MICROBIOLOGY - GENERAL ORD ERABLES Final Result [facility] Department [place] [address] * Surgical pathology (11/17/2024 5:10 PM CDT) Tissue (Bone - Biopsy / Curettings) 11/17/2024 5:10 PM CDT Comment:T10-T11 BONE/DISC BI OPSY Narrative PATHOLOGY [facility] - 11/26/2024 9:45 AM CDT EPIC results best viewed via link to PDF [facility] [place] [address] Note to Patients: This report may contain [...] Gender: F : 1955 (Age: 69) Address: [address] [place], [place] [id number] Hospital #: [id number] Taken:11/17/2024 Received:11/17/2024 Reported: 11/26/2024 Patient Type: [facility] Inpatient Service: Medical Location: [place] [address] Physician(s): Eliane Feng, MICHAEL Berger M.D. Diagnosis: Bone, T10-T11, biopsy - Bone with medullary fibrosis, hemosiderin deposition and woven bone formation (see comment) ia/11/25/2024 12:55 By this signature, I attest that [...] T10-T11 bone/disc biopsy and consists of one ed luna core(s) of bone (measuring 0.6 cm in length by 0.3 cm in diameter). Labeled A1 with Acid 1 decalcification. Jar 0. els/11/18/2024 11:30 PA(s): Cinthya Crooks By this signature, I attest that the above diagnosis is based upon my personal examination of the slides(and/or other material). Addenda/Procedures The performance characteristics of some immunohistochemical stains, fluorescence in-situ hybridization tests and immunophenotyping by flow cytometry cited in this report (if any) were determined by the Surgical Pathology and Flow Cytometry Departments at [facility] as part of an ongoing production quality analyst program and in compliance with federally mandated [...] Surgical Pathology and Flow Cytometry Departments of [facility]. It has not been cleared or approved by the U. S. Food and Drug Administration. IMAGES AND SCANNED DOCUMENTS, IF INCLUDED, ONLY VIEWABLE IN PDF VERSION OF REPORT Eliane Feng NP LAB PATHOLOGY ORDERABLES Final Result PATHOLOGY [facility] 3rd Floor [place], [place] [phone] * (ABNORMAL) aPTT (11/17/2024 2:05 PM CDT) aPTT 27(L) 28 - 38 sec Comment: Interpretive Data Heparin therapeutic range: 66.0 - 100.0 seconds. Range based on correlation with therapeutic heparin activity range of 0.3 - 0.7 Units/mL. Current interpretive data was last revised on 2023. Blood 11/17/2024 2:0 5 PM CDT 11/17/2024 2:14 PM CDT Baltazar Manzano MD LAB BLOOD ORDERABLES F inal Result [facility] Department [place] [address] * (ABNORMAL) Protime-INR (11/17/2024 2:05 PM CDT) PT 15.2(H) 9.7 - 13.0 sec INR 1.40(H) 0.90 - 1.20 [facility] Comment: Interpretive data Oral anticoagulant therapeutic ranges: Venous thromboembolism prophylaxis or treatment: 2.0-3.0 CARDIOLOGY Standard range: 2.0-3.0 High-intensity range: 2.5-3.5 Refer to indication-specific guidelines for appropriate target ranges for prosthetic heart valve replacement. Current interpretive data was last revised on 2019. Blood 11/17/2024 2:05 PM CDT 11/17/2024 2:14 PM CDT us Baltazar Manzano MD LAB BLOOD ORDERABLES F inal Result [facility] Department [place] [address] * MRI Spine Total Complete W WO [...] by: Jessica Pagan M.D. Eliane Feng NP IM MRI PROCEDURES Final Resul t * (ABNORMAL) aPTT (11/17/2024 5:40 AM CDT) aPTT 72(H) 28 - 38 sec Comment: Interpretive Data Heparin therapeutic range: 66.0 - 100.0 seconds. Range based on correlation with therapeutic heparin activity range of 0.3 - 0.7 Units/mL. Current interpretive data was last revised on 2023. Blood 11/17/2024 5:40 AM CDT 11/17/2024 6:01 AM CDT Narrative [facility] - 11/17/2024 6:11 AM CDT STAT [...] ORDERABLES Final R esult Performing Organization Address [facility] Co de Phone Number [facility] [employer] [place] [address] * (ABNORMAL) Protime-INR (11/17/2024 5:40 AM CDT) [facility] PT 16.4(H) 9.7 - 13.0 sec INR 1.51(H) 0.90 - 1.20 [facility] Comment: Interpretive data Oral anticoagulant therapeutic [...] ORDERABLES F inal Result Performing Organization Address [facility] Co de Phone Number [facility] [employer] [place] [address] * (ABNORMAL) eGFR (11/17/2024 1:33 AM CDT) [facility] eGFR 41(L) >=60 mL/min/1. 73 m2 Comment: [...] Nagy MD LAB BLOOD ORDERABLES Final Result [facility] Department [place] [address] * Differential, auto (11/17/2024 1:33 AM CDT) [facility] Neutrophil abs 3.50 1.50 - 6.50 K/cumm Imm gran abs 0.02 0.00 - 0.10 K/cumm [facility] Lymphocyte abs 1.11 0.80 - 3.30 K/cumm [facility] Monocyte abs 0.41 0.20 - 0.80 K/cumm [facility] Eosinophil abs 0.19 0.00 - 0.50 K/cumm [facility] Basophil abs 0.03 0.00 - 0.10 K/cumm [facility] Neutrophil pct 66.5 % [facility] Comment: Interpretive Data Percent cell count reference ranges are not reported, since discordance with absolute values may lead to misinterpretation of CBC data. Current Interpretive Data was last revised on 2017. Imm gran pct 0.4 % [facility] Comment: Interpretive Data Percent cell count reference ranges are not reported, since discordance with absolute values may lead to misinterpretation of CBC data. Current Interpretive Data was last revised on 2017. Lymphocyte pct 21.1 % [facility] Comment: Interpretive Data Percent cell count reference ranges are not reported, since discordance with absolute values may lead to misinterpretation of CBC data. Current Interpretive Data was last revised on 2017. Monocyte pct 7.8 % [facility] Comment: Interpretive Data Percent cell count reference ranges are not reported, since discordance with absolute values may lead to misinterpretation of CBC data. Current Interpretive Data was last revised on 2017. Eosinophil pct 3.6 % [facility] Comment: Interpretive Data Percent cell count reference ranges are not reported, since discordance with absolute values may lead to misinterpretation of CBC data. Current Interpretive Data was last revised on 2017. Basophil pct 0.6 % [facility] Comment: Interpretive Data Percent cell count reference ranges are not reported, since discordance with absolute values may lead to misinterpretation of CBC data. Current Interpretive Data was last revised on 2017. Blood 11/17/2024 1:33 AM CDT 11/17/2024 1:47 AM CDT us Mariela Nagy MD LAB BLOOD ORDERABLES Final Result [facility] Department [place] [address] * (ABNORMAL) CBC with auto differential (11/17/2024 1:33 AM CDT) WBC 5.26 3.80 - 9.90 K/cumm Hgb 7.4(L) 11.9 - 15.5 g/dL [facility] Hct 24.0(L) 35.6 - 45.5 % [facility] Plt 175 150 - 400 K/cumm [facility] MPV 11.1 9.1 - 12.3 fL [facility] RBC 2.80(L) 3.90 - 5.20 M/cumm [facility] MCV 85.7 81.3 - 96.4 fL [facility] MCH 26.4(L) 27.1 - 33.3 pg [facility] MCHC 30.8(L) 32.3 - 35.7 g/dL [facility] RDW CV 14.6 11.1 - 14.9 % [facility] RDW SD 46.0 35.7 - 48.1 fL [facility] NRBC abs 0.00 0.00 - 0.01 K/cumm [facility] Blood 11/17/2024 1:33 AM CDT 11/17/2024 1:47 AM CDT us Mariela Nagy MD LAB BLOOD ORDERABLES Final Result [facility] Department [place] [address] * (ABNORMAL) Basic metabolic panel (11/17/2024 1:33 AM CDT) Sodium 142 135 - 145 mmol/L Potassium, pl 4.0 3.3 - 4.9 mmol/L [facility] Chloride 107 97 - 110 mmol/L [facility] Comment:Repeated and Verifie d CO2 26 22 - 32 mmol/L [facility] Anion gap 9 2 - 15 mmol/L [facility] Comment:Repeated and Verifie d BUN 16 6 - 25 mg/dL [facility] Creatinine 1.40(H) 0.60 - 1.10 mg/dL [facility] Glucose 120 70 - 199 mg/dL [facility] Comment: Interpretive Data Fasting glucose >/= [...] 2022. Calcium 9.1 8.5 - 10.3 mg/dL [facility] Blood 11/17/2024 1:33 AM CDT 11/17/2024 1:46 AM CDT Mariela Nagy MD LAB BLOOD ORDERABLES Final Result Performing Organization Address City/[facility]/ZIP Co de Phone Number [facility] [employer] [place] [address] * POCT glucose (11/17/2024 1:32 AM CDT) Glucose, POC 125 70 - 199 mg/dL Blood 11/17/2024 1:32 AM CDT 11/17/2024 1:32 AM CDT Kandis Spencer MD LAB POCT ORDERABLES - DEVICE Fi nal Result Performing Organization Address [facility] Co de Phone Number [facility] [employer] [place] [address] * (ABNORMAL) eGFR (11/16/2024 11:02 PM CDT) eGFR 50(L) >=60 mL/min/1. 73 m2 Comment: [...] MD LAB BLOOD ORDERABLES Final Resu lt [facility] Department [place] [address] * Differential, auto (11/16/2024 11:02 PM CDT) Neutrophil abs 2.84 1.50 - 6.50 K/cumm Imm gran abs 0.03 0.00 - 0.10 K/cumm [facility] Lymphocyte abs 0.87 0.80 - 3.30 K/cumm [facility] Monocyte abs 0.31 0.20 - 0.80 K/cumm [facility] Eosinophil abs 0.12 0.00 - 0.50 K/cumm [facility] Basophil abs 0.03 0.00 - 0.10 K/cumm [facility] Neutrophil pct 67.6 % [facility] Comment: Interpretive Data Percent cell count reference ranges are not reported, since discordance with absolute values may lead to misinterpretation of CBC data. Current Interpretive Data was last revised on 2017. Imm gran pct 0.7 % [facility] Comment: Interpretive Data Percent cell count reference ranges are not reported, since discordance with absolute values may lead to misinterpretation of CBC data. Current Interpretive Data was last revised on 2017. Lymphocyte pct 20.7 % [facility] Comment: Interpretive Data Percent cell count reference ranges are not reported, since discordance with absolute values may lead to misinterpretation of CBC data. Current Interpretive Data was last revised on 2017. Monocyte pct 7.4 % [facility] Comment: Interpretive Data Percent cell count reference ranges are not reported, since discordance with absolute values may lead to misinterpretation of CBC data. Current Interpretive Data was last revised on 2017. Eosinophil pct 2.9 % [facility] Comment: Interpretive Data Percent cell count reference ranges are not reported, since discordance with absolute values may lead to misinterpretation of CBC data. Current Interpretive Data was last revised on 2017. Basophil pct 0.7 % [facility] Comment: Interpretive Data Percent cell count reference ranges are not reported, since discordance with absolute values may lead to misinterpretation of CBC data. Current Interpretive Data was last revised on 2017. Blood 11/16/2024 11:0 2 PM CDT 11/16/2024 11:25 PM CDT Kandis Spencer MD LAB BLOOD ORDERABLES Final Resu lt [facility] Department [place] [address] * Critical Result Callback Chemistry (11/16/2024 11:02 PM CDT) Date Notified [id number] Time Notified [address] [facility] TestName Anion Gap [facility] Called/Read Back Cleo [facility] Credentials RN [facility] Called By beka [facility] Blood 11/16/2024 11:0 2 PM CDT 11/16/2024 11:25 PM CDT us Kandis Spencer MD LAB BLOOD ORDERABLES Final Resu lt [facility] Department [place] [address] * (ABNORMAL) CBC with auto differential (11/16/2024 11:02 PM CDT) WBC 4.20 3.80 - 9.90 K/cumm Hgb 7.1(L) 11.9 - 15.5 g/dL [facility] Hct 22.8(L) 35.6 - 45.5 % [facility] Plt 160 150 - 400 K/cumm [facility] MPV 11.1 9.1 - 12.3 fL [facility] RBC 2.67(L) 3.90 - 5.20 M/cumm [facility] MCV 85.4 81.3 - 96.4 fL [facility] MCH 26.6(L) 27.1 - 33.3 pg [facility] MCHC 31.1(L) 32.3 - 35.7 g/dL [facility] RDW CV 14.6 11.1 - 14.9 % [facility] RDW SD 45.5 35.7 - 48.1 fL [facility] NRBC abs 0.00 0.00 - 0.01 K/cumm [facility] Blood 11/16/2024 11:0 2 PM CDT 11/16/2024 11:25 PM CDT us Kandis Spencer MD LAB BLOOD ORDERABLES Final Resu lt [facility] Department [place] [address] * (ABNORMAL) aPTT (11/16/2024 11:02 PM CDT) aPTT 62(H) 28 - 38 sec Comment: Interpretive Data Heparin therapeutic range: 66.0 - 100.0 seconds. Range based on correlation with therapeutic heparin activity range of 0.3 - 0.7 Units/mL. Current interpretive data was last revised on 2023. Blood 11/16/2024 11:0 2 PM CDT 11/16/2024 11:27 PM CDT Narrative [facility] - 11/16/2024 11:37 PM CDT STAT [...] ORDERABLES Final R esult Performing Organization Address [facility] Co de Phone Number [facility] Department [place] [address] * (ABNORMAL) Protime-INR (11/16/2024 11:02 PM CDT) PT 18.7(H) 9.7 - 13.0 sec INR 1.71(H) 0.90 - 1.20 [facility] Comment: Interpretive data Oral anticoagulant therapeutic [...] ORDERABLES Final Resu lt Performing Organization Address [facility] Co de Phone Number [facility] Department [place] [address] * Magnesium (11/16/2024 11:02 PM CDT) Magnesium 1.8 1.4 - 2.5 mg/dL Blood 11/16/2024 11:0 2 PM CDT 11/16/2024 11:25 PM CDT us Ranulfo Gentile MD LAB BLOOD ORDERABLES Final R esult Performing Organization Address [facility]/ZIP Co de Phone Number [facility] Department [place] [address] * (ABNORMAL) Basic metabolic panel (11/16/2024 11:02 PM CDT) Sodium 137 135 - 145 mmol/L Potassium, pl 3.3 3.3 - 4.9 mmol/L [facility] Chloride 88(L) 97 - 110 mmol/L [facility] Comment:Repeated and Verifie d CO2 22 22 - 32 mmol/L [facility] Anion gap 27(C) 2 - 15 mmol/L [facility] Comment:Repeated and Verifie d BUN 14 6 - 25 mg/dL [facility] Creatinine 1.20(H) 0.60 - 1.10 mg/dL [facility] Glucose 69(L) 70 - 199 mg/dL [facility] Comment: Interpretive Data Fasting glucose >/= [...] 2022. Calcium 7.7(L) 8.5 - 10.3 mg/dL [facility] Blood 11/16/2024 11:0 2 PM CDT 11/16/2024 11:25 PM CDT us Kandis Spencer MD LAB BLOOD ORDERABLES Final Resu lt [facility] Department [place] [address] * Blood culture Blood (11/16/2024 11:31 AM CDT) Pathologist [facility] Report Final Report: No growth Blood 11/16/2024 11:3 1 AM CDT 11/16/2024 11:46 AM CDT Narrative [facility] - 11/20/2024 12:00 PM CDT Collection->Peripheral 1. [...] performance characteristics have been verified by the [facility]biology [facility]. For questions about this culture, contact the Microbiology Laboratory at [phone]. Interpretive data was last revised on 24. Kandis Spencer MD LAB MICROBIOLOGY - [facility] Final Result [facility] Department [place] [address] * Blood culture Blood (11/16/2024 11:31 AM [...] performance characteristics have been verified by the [facility]. For questions about this culture, contact the Microbiology Laboratory at [phone]. Interpretive data was last revised on 24. Kandis Spencer MD LAB [facility]OLOG[facility] - [facility] Final Result [facility] Department [place] [address] * Differential, auto (11/15/2024 11:46 PM CDT) [facility] Neutrophil abs 2.81 1.50 - 6.50 K/cumm Imm gran abs 0.02 0.00 - 0.10 K/cumm [facility] Lymphocyte abs 1.22 0.80 - 3.30 K/cumm [facility] Monocyte abs 0.31 0.20 - 0.80 K/cumm [facility] Eosinophil abs 0.09 0.00 - 0.50 K/cumm [facility] Basophil abs 0.02 0.00 - 0.10 K/cumm [facility] Neutrophil pct 63.0 % [facility] Comment: Interpretive Data Percent cell count reference ranges are not reported, since discordance with absolute values may lead to misinterpretation of CBC data. Current Interpretive Data was last revised on 2017. Imm gran pct 0.4 % [facility] Comment: Interpretive Data Percent cell count reference ranges are not reported, since discordance with absolute values may lead to misinterpretation of CBC data. Current Interpretive Data was last revised on 2017. Lymphocyte pct 27.3 % [facility] Comment: Interpretive Data Percent cell count reference ranges are not reported, since discordance with absolute values may lead to misinterpretation of CBC data. Current Interpretive Data was last revised on 2017. Monocyte pct 6.9 % [facility] Comment: Interpretive Data Percent cell count reference ranges are not reported, since discordance with absolute values may lead to misinterpretation of CBC data. Current Interpretive Data was last revised on 2017. Eosinophil pct 2.0 % [facility] Comment: Interpretive Data Percent cell count reference ranges are not reported, since discordance with absolute values may lead to misinterpretation of CBC data. Current Interpretive Data was last revised on 2017. Basophil pct 0.4 % [facility] Comment: Interpretive Data Percent cell count reference ranges are not reported, since discordance with absolute values may lead to misinterpretation of CBC data. Current Interpretive Data was last revised on 2017. Blood 11/15/2024 11:4 6 PM CDT 11/16/2024 12:46 AM CDT us Kandis Spencer MD LAB BLOOD ORDERABLES Final Resu lt [facility] Department [place] [address] * (ABNORMAL) CBC with auto differential (11/15/2024 11:46 PM CDT) WBC 4.47 3.80 - 9.90 K/cumm Hgb 8.6(L) 11.9 - 15.5 g/dL [facility] Hct 27.5(L) 35.6 - 45.5 % [facility] Plt 172 150 - 400 K/cumm [facility] MPV 11.8 9.1 - 12.3 fL [facility] RBC 3.21(L) 3.90 - 5.20 M/cumm [facility] MCV 85.7 81.3 - 96.4 fL [facility] MCH 26.8(L) 27.1 - 33.3 pg [facility] MCHC 31.3(L) 32.3 - 35.7 g/dL [facility] RDW CV 14.6 11.1 - 14.9 % [facility] RDW SD 45.6 35.7 - 48.1 fL [facility] NRBC abs 0.00 0.00 - 0.01 K/cumm [facility] Blood 11/15/2024 11:4 6 PM CDT 11/16/2024 12:46 AM CDT us Kandis Spencer MD LAB BLOOD ORDERABLES Final Resu lt [facility] Department [place] [address] * (ABNORMAL) aPTT (11/15/2024 11:46 PM CDT) aPTT 77(H) 28 - 38 sec Comment: Interpretive Data Heparin therapeutic range: 66.0 - 100.0 seconds. Range based on correlation with therapeutic heparin activity range of 0.3 - 0.7 Units/mL. Current interpretive data was last revised on 2023. Blood 11/15/2024 11:4 6 PM CDT 11/15/2024 11:54 PM CDT Narrative [facility] - 11/16/2024 12:34 AM CDT STAT [...] ORDERABLES Final R esult Performing Organization Address [facility] [place] [address] * (ABNORMAL) Protime-INR (11/15/2024 11:46 PM CDT) PT 16.2(H) 9.7 - 13.0 sec INR 1.49(H) 0.90 - 1.20 [facility] Comment: Interpretive data Oral anticoagulant therapeutic [...] ORDERABLES Final Resu lt Performing Organization Address [facility] Co de Phone Number [facility] [employer] [place] [address] * Magnesium (11/15/2024 11:46 PM CDT) Magnesium 2.4 1.4 - 2.5 mg/dL Blood 11/15/2024 11:4 6 PM CDT 11/16/2024 12:08 AM CDT Ranulfo Gentile MD LAB BLOOD ORDERABLES Final R esult Performing Organization Address [facility] [place] [address] * Blood culture Blood Arm, right (11/15/2024 1:14 PM CDT) Report Final Report: No growth Blood (Arm, right) 11/15/2024 1:14 PM CDT 11/15/2024 1:24 PM CDT Narrative [facility] - 11/19/2024 4:00 PM CDT Collection->Peripheral 1. [...] performance characteristics have been verified by the [facility]biology [facility]. For questions about this culture, contact the Microbiology Laboratory at [phone]. Interpretive data was last revised on 24. Kandis Spencer MD LAB MICROBIOLOGY - [facility] Final Result [facility] Department [place] [address] * (ABNORMAL) eGFR (11/15/2024 1:08 PM CDT) Pathologist [facility] eGFR 42(L) >=60 mL/min/1. 73 m2 Comment: [...] LAB BLOOD ORDERABL ES Final Result [facility] Department [place] [address] * Blood culture Blood Arm, left (11/15/2024 1:08 PM CDT) Report Final Report: No growth Blood (Arm, left) 11/15/2024 1:08 PM CDT 11/15/2024 1:24 PM CDT Narrative [facility] - 11/19/2024 4:00 PM CDT Collection->Peripheral 1. [...] performance characteristics have been verified by the [facility]biology [facility]. For questions about this culture, contact the Microbiology Laboratory at [phone]. Interpretive data was last revised on 24. Lia Ye MD LAB MICROBIOLOGY - GENERAL ORDERABLES Final Result [facility] [place] [facility] [place] [place] [address] * (ABNORMAL) Basic metabolic panel (11/15/2024 1:08 PM CDT) Sodium 140 135 - 145 mmol/L Potassium, pl 4.2 3.3 - 4.9 mmol/L [facility] Chloride 106 97 - 110 mmol/L [facility] CO2 26 22 - 32 mmol/L [facility] Anion gap 8 2 - 15 mmol/L [facility] BUN 16 6 - 25 mg/dL [facility] Creatinine 1.38(H) 0.60 - 1.10 mg/dL [facility] Glucose 117 70 - 199 mg/dL [facility] Comment: Interpretive Data Fasting glucose >/= [...] 2022. Calcium 9.2 8.5 - 10.3 mg/dL [facility] Blood 11/15/2024 1:08 PM CDT 11/15/2024 1:29 PM CDT Lia Ye MD LAB BLOOD ORDERABL ES Final Result Performing Organization Address [facility]/ZIP Co de Phone Number CERNER [facility] Department [place] [address] * (ABNORMAL) Protime-INR (11/15/2024 10:11 AM CDT) PT 18.3(H) 9.7 - 13.0 sec INR 1.68(H) 0.90 - 1.20 [facility] Comment: Interpretive data Oral anticoagulant therapeutic ranges: Venous thromboembolism prophylaxis or treatment: 2.0-3.0 CARDIOLOGY Standard range: 2.0-3.0 High-intensity range: 2.5-3.5 Refer to indication-specific guidelines for appropriate target ranges for prosthetic heart valve replacement. Current interpretive data was last revised on 2019. Blood 11/15/2024 10:1 1 AM CDT 11/15/2024 10:25 AM CDT us Kandis Spencer MD LAB BLOOD ORDERABLES Final Resu lt JULIANA [facility] Department [place] [address] * (ABNORMAL) eGFR (11/14/2024 10:03 PM CDT) [...] LAB BLOOD ORDERABLES Final R esult [facility] of [employer] [place] [address] * (ABNORMAL) CBC without differential (11/14/2024 10:03 PM CDT) WBC 4.52 3.80 - 9.90 K/cumm Hgb 7.9(L) 11.9 - 15.5 g/dL [facility] Hct 24.8(L) 35.6 - 45.5 % [facility] Plt 153 150 - 400 K/cumm [facility] MPV 11.7 9.1 - 12.3 fL [facility] RBC 2.88(L) 3.90 - 5.20 M/cumm [facility] MCV 86.1 81.3 - 96.4 fL [facility] MCH 27.4 27.1 - 33.3 pg [facility] MCHC 31.9(L) 32.3 - 35.7 g/dL [facility] RDW CV 14.6 11.1 - 14.9 % [facility] RDW SD 45.8 35.7 - 48.1 fL [facility] NRBC abs 0.00 0.00 - 0.01 K/cumm [facility] Blood 11/14/2024 10:0 3 PM CDT 11/14/2024 10:43 PM CDT us Ranulfo Gentile MD LAB BLOOD ORDERABLES Final R esult [facility] [employer] [place] [address] * Phosphorus (11/14/2024 10:03 PM CDT) [facility] Phosphorus, pl 3.8 2.3 - 4.5 mg/dL Blood 11/14/2024 10:0 3 PM CDT 11/14/2024 10:40 PM CDT us Kandis Spencer MD LAB BLOOD ORDERABLES Final Resu lt Performing Organization Address [facility] Co de Phone Number [facility] Department [place] [address] * Magnesium (11/14/2024 10:03 PM CDT) [facility] Magnesium 2.3 1.4 - 2.5 mg/dL Blood 11/14/2024 10:0 3 PM CDT 11/14/2024 10:40 PM CDT us Ranulfo Gentile MD LAB BLOOD ORDERABLES Final R esult Performing Organization Address [facility] de Phone Number [facility] [place] [address] * (ABNORMAL) Basic metabolic panel (11/14/2024 10:03 PM CDT) [facility] Sodium 141 135 - 145 mmol/L Potassium, pl 4.0 3.3 - 4.9 mmol/L [facility] Chloride 105 97 - 110 mmol/L [facility] CO2 26 22 - 32 mmol/L [facility] Anion gap 10 2 - 15 mmol/L [facility] BUN 18 6 - 25 mg/dL [facility] Creatinine 1.60(H) 0.60 - 1.10 mg/dL [facility] Glucose 108 70 - 199 mg/dL [facility] Comment: Interpretive Data Fasting glucose >/= [...] 2022. Calcium 9.2 8.5 - 10.3 mg/dL [facility] Blood 11/14/2024 10:0 3 PM CDT 11/14/2024 10:40 PM CDT us Ranulfo Gentile MD LAB BLOOD ORDERABLES Final R esult Performing Organization Address [facility] Co de Phone Number [facility] of [employer] [place] [address] * (ABNORMAL) aPTT (11/14/2024 6:53 PM CDT) [...] ORDERABLES Final Resu lt Performing Organization Address [facility] Co de Phone Number [facility] Department of [employer] [place] [address] * (ABNORMAL) aPTT (11/14/2024 12:12 PM CDT) aPTT 77(H) 28 - 38 sec Comment: Interpretive Data Heparin therapeutic range: 66.0 - 100.0 seconds. Range based on correlation with therapeutic heparin activity range of 0.3 - 0.7 Units/mL. Current interpretive data was last revised on 2023. Blood 11/14/2024 12:1 2 PM CDT 11/14/2024 12:26 PM CDT Narrative JULIANA [facility] - 11/14/2024 12:53 PM CDT STAT [...] ORDERABLES Final R esult Performing Organization Address [facility] Co de Phone Number [facility] Department [place] [address] * ECG 12 lead (11/14/2024 10:29 AM CDT) [facility] Ventricular Rate EKG/Min 78 BPM [facility] Atrial Rate 78 BPM [facility] QRS-Interval (MSEC) 144 ms [facility] QT-Interval (MSEC) 468 ms [facility] QTc 533 ms [facility] P [place] 53 degrees [facility] R [place] 261 degrees [facility] T [place] 45 degrees [facility] 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 AV dual-paced complexes Abnormal ECG No previous ECGs available Confirmed by MARVIN POMPA M.D ([id number]) on 11/15/2024 3:25:47 PM [facility] 11/14/2024 10:2 9 AM CDT 11/15/2024 3:25 PM CDT us Kandis Spencer MD ECG ORDERABLES Final Result Performing Organization Address [facility] Co de Phone Number [facility] * TRANSTHORACIC ECHO (TTE) COMPLETE W DOPPLER/CF W CONTRAST (11/14/2024 8:41 AM CDT) EF Mod BP 67 % CONS SCIMAGE Anatomical Region Laterality Modality Ultrasound 11/14/2024 7:20 AM CDT Narrative 11/14/2024 1:03 PM CDT [facility] [place] [address] Transthoracic Echocardiographic Report Patient Name: KENDAL CISNEROS J : 1955 (69y 10m) Gender: F Study Date: 11/14/2024 07:20:46 Ht(Inch): 62 Wt(Lb): 138.89 BSA: 1.66 Online Media Buyer: Michelle Kaminski RDCS Location: [id number] Order Provider: RANULFO GENTILE Heart Rate: 74 [...] Procedure Note Ryan Stephenson MD - 11/14/2024 [facility] [place] [address] Transthoracic Echocardiographic Report Patient Name: KENDAL CISNEROS J : 1955 (69y 10m) Gender: F Study Date: 11/14/2024 07:20:46 Ht(Inch): 62 Wt(Lb): 138.89 BSA: 1.66 Online Media Buyer: Michelle Kaminski RDCS Location: [id number] Order Provider:RANULFO GENTILE Heart Rate: 74 BMI: [...] [ 2.5 - 4.2 ] MV Decel Xbti274.78 msec [ 104.00 - 258.00 ] TAPSE [...] * (ABNORMAL) aPTT (11/14/2024 4:31 AM CDT) Pathologist [facility] aPTT 58(H) 28 - 38 sec Comment: Interpretive Data Heparin therapeutic range: 66.0 - 100.0 seconds. Range based on correlation with therapeutic heparin activity range of 0.3 - 0.7 Units/mL. Current interpretive data was last revised on 2023. Blood 11/14/2024 4:31 AM CDT 11/14/2024 4:42 AM CDT us Ranulfo Gentile MD LAB BLOOD ORDERABLES Final R esult [facility] Department [place] [address] * (ABNORMAL) eGFR (11/13/2024 10:35 PM CDT) Pathologist [facility] eGFR 41(L) >=60 mL/min/1. 73 m2 Comment: [...] MD LAB BLOOD ORDERABLES Final R esult [facility] Department [place] [address] * (ABNORMAL) Erythrocyte sedimentation rate (11/13/2024 10:35 PM CDT) Pathologist [facility] Erythrocyte sedimentation rate 82(H) 1 - 30 mm/hr Blood 11/13/2024 10:3 5 PM CDT 11/13/2024 10:43 PM CDT us Ranulfo Gentile MD LAB BLOOD ORDERABLES Final R esult Performing Organization Address City/[facility]/ZIP Co de Phone Number [facility] Department [place] [address] * (ABNORMAL) CBC without differential (11/13/2024 10:35 PM CDT) [facility] WBC 5.87 3.80 - 9.90 K/cumm Hgb 8.1(L) 11.9 - 15.5 g/dL [facility] Hct 26.3(L) 35.6 - 45.5 % [facility] Plt 192 150 - 400 K/cumm [facility] MPV 11.1 9.1 - 12.3 fL [facility] RBC 3.07(L) 3.90 - 5.20 M/cumm [facility] MCV 85.7 81.3 - 96.4 fL [facility] MCH 26.4(L) 27.1 - 33.3 pg [facility] MCHC 30.8(L) 32.3 - 35.7 g/dL [facility] RDW CV 14.4 11.1 - 14.9 % [facility] RDW SD 45.2 35.7 - 48.1 fL [facility] NRBC abs 0.00 0.00 - 0.01 K/cumm [facility] Blood 11/13/2024 10:3 5 PM CDT 11/13/2024 10:43 PM CDT Ranulfo Gentile MD LAB BLOOD ORDERABLES Final R esult Performing Organization Address City/[facility] Co de Phone Number [facility] [employer] [place] [address] * (ABNORMAL) CRP (acute phase) (11/13/2024 10:35 PM CDT) CRP 17.0(H) <=10.0 mg/L Blood 11/13/2024 10:3 5 PM CDT 11/13/2024 10:43 PM CDT Ranulfo Gentile MD LAB BLOOD ORDERABLES Final R esult Performing Organization Address [facility] Co de Phone Number [facility] [employer] [place] [address] * Magnesium (11/13/2024 10:35 PM CDT) Magnesium 2.3 1.4 - 2.5 mg/dL Blood 11/13/2024 10:3 5 PM CDT 11/13/2024 10:43 PM CDT Ranulfo Gentile MD LAB BLOOD ORDERABLES Final R esult Performing Organization Address City/[facility] Co de Phone Number [facility] [employer] [place] [address] * (ABNORMAL) Basic metabolic panel (11/13/2024 10:35 PM CDT) Sodium 139 135 - 145 mmol/L Potassium, pl 3.9 3.3 - 4.9 mmol/L [facility] Chloride 105 97 - 110 mmol/L [facility] CO2 29 22 - 32 mmol/L [facility] Anion gap 5 2 - 15 mmol/L [facility] BUN 14 6 - 25 mg/dL [facility] Creatinine 1.40(H) 0.60 - 1.10 mg/dL [facility] Glucose 98 70 - 199 mg/dL [facility] Comment: Interpretive Data Fasting glucose >/= [...] 2022. Calcium 9.6 8.5 - 10.3 mg/dL [facility] Blood 11/13/2024 10:3 5 PM CDT 11/13/2024 10:43 PM CDT us Ranulfo Gentile MD LAB BLOOD ORDERABLES Final R esult [facility] Department [place] [address] * aPTT (11/13/2024 5:26 PM CDT) aPTT 31 28 - 38 sec Comment: Interpretive Data Heparin therapeutic range: 66.0 - 100.0 seconds. Range based on correlation with therapeutic heparin activity range of 0.3 - 0.7 Units/mL. Current interpretive data was last revised on 2023. Blood 11/13/2024 5:26 PM CDT 11/13/2024 5:51 PM CDT Narrative [facility] - 11/13/2024 6:00 PM CDT Baseline prior to heparin initiation Eliane Feng [employer]D ACCOUNTING MANAGER LAB BLOOD ORDERABLES Final Res ult Performing Organization Address [facility] [place] [address] * (ABNORMAL) Protime-INR (11/13/2024 5:26 PM CDT) PT 25.3(H) 9.7 - 13.0 sec INR 2.30(H) 0.90 - 1.20 [facility] Comment: Interpretive data Oral anticoagulant therapeutic ranges: Venous thromboembolism prophylaxis or treatment: 2.0-3.0 CARDIOLOGY Standard range: 2.0-3.0 High-intensity range: 2.5-3.5 Refer to indication-specific guidelines for appropriate target ranges for prosthetic heart valve replacement. Current interpretive data was last revised on 2019. Blood 11/13/2024 5:26 PM CDT 11/13/2024 5:51 PM CDT Narrative [facility] - 11/13/2024 6:00 PM CDT Baseline prior to heparin initiation Eliane Feng FUND ACCOUNTING MANAGER LAB BLOOD ORDERABLES Final Res ult Performing Organization Address [facility] [place] [address] * (ABNORMAL) CBC without differential (11/13/2024 5:26 PM CDT) WBC 6.04 3.80 - 9.90 K/cumm Hgb 8.5(L) 11.9 - 15.5 g/dL [facility] Hct 26.6(L) 35.6 - 45.5 % [facility] Plt 184 150 - 400 K/cumm [facility] MPV 11.3 9.1 - 12.3 fL [facility] RBC 3.16(L) 3.90 - 5.20 M/cumm [facility] MCV 84.2 81.3 - 96.4 fL [facility] MCH 26.9(L) 27.1 - 33.3 pg [facility] MCHC 32.0(L) 32.3 - 35.7 g/dL [facility] RDW CV 14.4 11.1 - 14.9 % [facility] RDW SD 44.5 35.7 - 48.1 fL [facility] NRBC abs 0.00 0.00 - 0.01 K/cumm [facility] Blood 11/13/2024 5:26 PM CDT 11/13/2024 5:50 PM CDT Narrative [facility] - 11/13/2024 6:05 PM CDT Baseline prior to heparin initiation Eliane Feng NP LAB BLOOD ORDERABLES Final Res ult [facility] Department [place] [address] * (ABNORMAL) eGFR (11/13/2024 2:19 PM CDT) [...] Grey MD LAB BLOOD ORDERABLES Final Result [facility] Department [place] [address] * Differential, auto (11/13/2024 2:19 PM CDT) Neutrophil abs 5.24 1.50 - 6.50 K/cumm Imm gran abs 0.03 0.00 - 0.10 K/cumm [facility] Lymphocyte abs 0.98 0.80 - 3.30 K/cumm [facility] Monocyte abs 0.49 0.20 - 0.80 K/cumm [facility] Eosinophil abs 0.10 0.00 - 0.50 K/cumm [facility] Basophil abs 0.04 0.00 - 0.10 K/cumm [facility] Neutrophil pct 76.2 % [facility] Comment: Interpretive Data Percent cell count reference ranges are not reported, since discordance with absolute values may lead to misinterpretation of CBC data. Current Interpretive Data was last revised on 2017. Imm gran pct 0.4 % [facility] Comment: Interpretive Data Percent cell count reference ranges are not reported, since discordance with absolute values may lead to misinterpretation of CBC data. Current Interpretive Data was last revised on 2017. Lymphocyte pct 14.2 % [facility] Comment: Interpretive Data Percent cell count reference ranges are not reported, since discordance with absolute values may lead to misinterpretation of CBC data. Current Interpretive Data was last revised on 2017. Monocyte pct 7.1 % [facility] Comment: Interpretive Data Percent cell count reference ranges are not reported, since discordance with absolute values may lead to misinterpretation of CBC data. Current Interpretive Data was last revised on 2017. Eosinophil pct 1.5 % [facility] Comment: Interpretive Data Percent cell count reference ranges are not reported, since discordance with absolute values may lead to misinterpretation of CBC data. Current Interpretive Data was last revised on 2017. Basophil pct 0.6 % [facility] Comment: Interpretive Data Percent cell count reference ranges are not reported, since discordance with absolute values may lead to misinterpretation of CBC data. Current Interpretive Data was last revised on 2017. Blood 11/13/2024 2:19 PM CDT 11/13/2024 2:31 PM CDT Tiffanie Grey MD LAB BLOOD ORDERABLES Final Result [facility] [address] [facility] Department [place] [address] * (ABNORMAL) CBC with auto differential (11/13/2024 2:19 PM CDT) WBC 6.88 3.80 - 9.90 K/cumm Hgb 8.8(L) 11.9 - 15.5 g/dL [facility] Hct 27.9(L) 35.6 - 45.5 % [facility] Plt 204 150 - 400 K/cumm [facility] MPV 11.0 9.1 - 12.3 fL [facility] RBC 3.28(L) 3.90 - 5.20 M/cumm [facility] MCV 85.1 81.3 - 96.4 fL [facility] MCH 26.8(L) 27.1 - 33.3 pg [facility] MCHC 31.5(L) 32.3 - 35.7 g/dL [facility] RDW CV 14.5 11.1 - 14.9 % [facility] RDW SD 44.4 35.7 - 48.1 fL [facility] NRBC abs 0.00 0.00 - 0.01 K/cumm [facility] Blood 11/13/2024 2:19 PM CDT 11/13/2024 2:31 PM CDT Tiffanie Grey MD LAB BLOOD ORDERABLES Final Result [facility] One [facility] Department [place] [address] * (ABNORMAL) Blood culture Blood Peripheral (11/13/2024 2:19 PM CDT) [facility] Direct Specimen Exam Molecular Analysis: Enterococcus faecalis detected by jm ePlex BCID-G panel. Enterococcus faecalis is routinely susceptible to ampicillin. Genes conferring Vancomycin resistance were not detected. This test does not exclude the possibility of a mixed bacterial infection. Notification of: Enterococcus faicalis called to and read back by: Colin Blair MD [phone] on 11/14/2024 08:50:27 by: Blake Garcia MLT Direct Specimen Exam Stain: Gram Positive Cocci in pairs and chains Time to culture positivity (aerobic media): 16.0 hours Time to culture positivity (anaerobic media): 16.0 hours Notification of: Gram Positive Cocci in pairs and chains called to and read back by: Colin Blair MD [phone] on 11/14/2024 06:51:41 by: Olesya Barrera [facility] Report Final Report: Enterococcus faecalis For serious infections with Enterococcus species (such as endocarditis or endovascular graft infections), combination antimicrobial therapy is often required. In these cases, an Infectious Disease Consult is strongly recommended. (.) [facility] Organism ENTEROCOCCUS FAECALIS [facility] Blood (Peripheral) 11/13/2024 2:19 PM CDT 11/13/2024 2:[address] [facility] - 11/17/2024 11:51 AM CDT From [...] performance characteristics have been verified by the [facility] Microbiology Laboratory. For questions about this culture, contact the Microbiology Laboratory at [phone]. Interpretive data was last revised on 24. Organism Antibiotic Method Susceptibility Enterococcus faecalis Ampicillin (ELISABETH) INTERPRETATIO N Susceptible Enterococcus faecalis Vancomycin (ELISABETH) INTERPRETATIO N Susceptible Enterococcus faecalis High-Level Gentamicin (ELISABETH) INTE RPRETATION Susceptible Enterococcus faecalis Linezolid (ELISABETH) INTERPRETATIO N Susceptible Enterococcus faecalis Doxycycline (ELISABETH) INTERPRETATIO N Resistant Tiffanie Grey MD LAB MICROBIOLOGY - ENERAL ORDERABLES Final Result [facility] [address] [facility] Department [place] [address] * (ABNORMAL) Blood culture Blood Peripheral (11/13/2024 2:19 PM CDT) Direct Specimen Exam Stain: Gram Positive Cocci in pairs and chains Time to culture positivity (aerobic media): 18.2 hours Time to culture positivity (anaerobic media): 18.2 hours Report Final Report: Enterococcus faecalis For susceptibility results, refer to accession number [id number] on the blood culture from 11/13/2024 (.) [facility] Organism ENTEROCOCCUS FAECALIS [facility] Blood (Peripheral) 11/13/2024 2:19 PM CDT 11/13/2024 2:[address] [facility] - 11/17/2024 11:51 AM CDT Draw Blood [...] performance characteristics have been verified by the [facility] Microbiology Laboratory. For questions about this culture, contact the Microbiology Laboratory at [phone]. Interpretive data was last revised on 24. Tiffanie Grey MD LAB MICROBIOLOGY - [facility] ORDERABLES Final Result [facility] [address] [facility] Department [place] [address] * (ABNORMAL) Comprehensive metabolic panel (11/13/2024 2:19 PM CDT) Sodium 139 135 - 145 mmol/L Potassium, pl 3.9 3.3 - 4.9 mmol/L [facility] Chloride 102 97 - 110 mmol/L [facility] CO2 27 22 - 32 mmol/L [facility] Anion gap 10 2 - 15 mmol/L [facility] BUN 13 6 - 25 mg/dL [facility] Creatinine 1.42(H) 0.60 - 1.10 mg/dL [facility] Glucose 93 70 - 199 mg/dL [facility] Comment: Interpretive Data Fasting glucose >/= [...] 2022. Calcium 9.5 8.5 - 10.3 mg/dL [facility] Bilirubin, total 0.2 0.1 - 1.2 mg/dL [facility] Protein, pl 8.3 6.5 - 8.5 g/dL [facility] Albumin 4.0 3.5 - 5.0 g/dL [facility] Alk phos 104 40 - 130 Units/L [facility] ALT 10 7 - 45 Units/L [facility] AST 18 10 - 45 Units/L [facility] Blood 11/13/2024 2:1 9 PM CDT 11/13/2024 2:21 PM CDT Tiffanie Grey MD LAB BLOOD ORDERABLES Final Result [facility] One [facility] Department [place] [address] * XR Chest PA Lateral 2 Views [...] images may or may not represent the [place] source data set and thus may contain changes that may lower the accuracy of this second-opinion interpretation. Electronically signed by: Valdemar Mcdowell MD Narrative 11/13/2024 12:34 PM CDT EXAMINATION: RADIOLOGY CONSULTATION ON OUTSIDE IMAGING STUDY STUDY INITIALLY PERFORMED: 11/10/2024 at [facility]. TYPE OF STUDY: Multiple CT images [...] IMAGING STUDY STUDY INITIALLY PERFORMED: 11/10/2024 at [facility]. TYPE OF STUDY: Multiple CT images [...] images may or may not represent the [place] source data set and thus may contain changes that may lower the accuracy of this second-opinion interpretation. Electronically signed by: Valdemar Mcdowell MD Romeo Flower MD IM CT PROCEDURES Final Resul t * Neuro CT Outside Reference (11/13/2024 12:13 PM CDT) Impressions [facility] - 11/13/2024 12:13 PM CDT These images are for Reference purposes only and have not been reviewed by [facility] Radiology. There will be no report generated by a [facility] Radiologist. Narrative [facility] - 11/13/2024 12:13 PM CDT EXAMINATION: Images For Reference Purposes Only Romeo Flower MD IM CT PROCEDURES Final Resul t [facility] * Differential, auto (11/10/2024 2:46 PM CDT) Neutrophil abs 4.19 1.50 - 6.50 K/cumm Imm gran abs 0.02 0.00 - 0.10 K/cumm [facility] Lymphocyte abs 1.12 0.80 - 3.30 K/cumm [facility] Monocyte abs 0.32 0.20 - 0.80 K/cumm [facility] Eosinophil abs 0.15 0.00 - 0.50 K/cumm [facility] Basophil abs 0.05 0.00 - 0.10 K/cumm [facility] Neutrophil pct 71.6 % [facility] Comment: Interpretive Data Percent cell count reference ranges are not reported, since discordance with absolute values may lead to misinterpretation of CBC data. Current Interpretive Data was last revised on 2017. Imm gran pct 0.3 % [facility] Comment: Interpretive Data Percent cell count reference ranges are not reported, since discordance with absolute values may lead to misinterpretation of CBC data. Current Interpretive Data was last revised on 2017. Lymphocyte pct 19.1 % [facility] Comment: Interpretive Data Percent cell count reference ranges are not reported, since discordance with absolute values may lead to misinterpretation of CBC data. Current Interpretive Data was last revised on 2017. Monocyte pct 5.5 % [facility] Comment: Interpretive Data Percent cell count reference ranges are not reported, since discordance with absolute values may lead to misinterpretation of CBC data. Current Interpretive Data was last revised on 2017. Eosinophil pct 2.6 % [facility] Comment: Interpretive Data Percent cell count reference ranges are not reported, since discordance with absolute values may lead to misinterpretation of CBC data. Current Interpretive Data was last revised on 2017. Basophil pct 0.9 % [facility] Comment: Interpretive Data Percent cell count reference ranges are not reported, since discordance with absolute values may lead to misinterpretation of CBC data. Current Interpretive Data was last revised on 2017. Blood 11/10/2024 2:46 PM CDT 11/10/2024 9:09 PM CDT Sukhwinder Bruner MD LAB BLOOD ORDERABLES Final Result JULIANA RODRIGUEZ [address] Department [place] [address] * (ABNORMAL) Iron profile w/ IBC (11/10/2024 2:46 PM CDT) Pathologist [facility] Iron 28(L) 35 - 145 mcg/dl TIBC 300 250 - 400 mcg/dL [facility] Transferrin saturation 9(L) 20 - 50 % [facility] Blood 11/10/2024 2:46 PM CDT 11/10/2024 9:09 PM CDT us Sukhwinder Bruner MD LAB BLOOD ORDERABLES Final Result JULIANA RODRIGUEZ [address] Department [place] [address] * (ABNORMAL) CBC with auto differential (11/10/2024 2:46 PM CDT) [facility] WBC 5.85 3.80 - 9.90 K/cumm Hgb 9.1(L) 11.9 - 15.5 g/dL [facility] Hct 30.9(L) 35.6 - 45.5 % [facility] Plt 225 150 - 400 K/cumm [facility] MPV 10.9 9.1 - 12.3 fL [facility] RBC 3.41(L) 3.90 - 5.20 M/cumm [facility] MCV 90.6 81.3 - 96.4 fL [facility] MCH 26.7(L) 27.1 - 33.3 pg [facility] MCHC 29.4(L) 32.3 - 35.7 g/dL [facility] CV 14.5 11.1 - 14.9 % [facility] RDW SD 47.8 35.7 - 48.1 fL [facility] NRBC abs 0.00 0.00 - 0.01 K/cumm [facility] Blood 11/10/2024 2:46 PM CDT 11/10/2024 9:09 PM CDT us Sukhwinder Bruner MD LAB BLOOD ORDERABLES Final Result Performing Organization Address City/[facility] Co de Phone Number JULIANA [address] [address] [facility] [employer] [place] [address] * (ABNORMAL) Protime-INR (11/10/2024 2:46 PM CDT) PT 24.4(H) 9.7 - 13.0 sec INR 2.22(H) 0.90 - 1.20 JULIANA Comment: Interpretive data [...] ORDERABLES Mirtha l Result Performing Organization Address [facility] Co de Phone Number JULIANA RODRIGUEZ [address] [address] Department [employer] [place] [address] * Ferritin (11/10/2024 2:46 PM CDT) Pathologist [facility] Ferritin 113 15 - 150 ng/mL Blood 11/10/2024 2:46 PM CDT 11/10/2024 9:09 PM CDT Sukhwinder Bruner MD LAB BLOOD ORDERABLES Final Result Performing Organization Address [facility] Co de Phone Number JULIANA [address] [address] [facility] [employer] [place] [address] * (ABNORMAL) Protime-INR (11/10/2024 1:42 PM CDT) PT 24.7(H) 9.7 - 13.0 sec INR 2.25(H) 0.90 - 1.20 JULIANA Comment: Interpretive data Oral anticoagulant therapeutic ranges: Venous thromboembolism prophylaxis or treatment: 2.0-3.0 CARDIOLOGY Standard range: 2.0-3.0 High-intensity range: 2.5-3.5 Refer to indication-specific guidelines for appropriate target ranges for prosthetic heart valve replacement. Current interpretive data was last revised on 2019. Blood 11/10/2024 1:42 PM CDT 11/10/2024 9:09 PM CDT us Blake Dee MD LAB BLOOD ORDERABLES Mirtha l Result JULIANA JENNIFER [address] [place] [address] * (ABNORMAL) eGFR (11/10/2024 1:38 PM CDT) eGFR 48(L) >=60 mL/min/1. 73 m2 Comment: [...] Berger MD LAB BLOOD ORDERABLES Final Result Performing Organization Address City/[facility]/[place] [address] [address] Department [employer] [place] [address] * Differential, auto (11/10/2024 1:38 PM CDT) Neutrophil abs 4.22 1.50 - 6.50 K/cumm Imm gran abs 0.01 0.00 - 0.10 K/cumm [facility] Lymphocyte abs 1.04 0.80 - 3.30 K/cumm [facility] Monocyte abs 0.31 0.20 - 0.80 K/cumm [facility] Eosinophil abs 0.13 0.00 - 0.50 K/cumm [facility] Basophil abs 0.03 0.00 - 0.10 K/cumm [facility] Neutrophil pct 73.5 % [facility] Comment: Interpretive Data Percent cell count reference ranges are not reported, since discordance with absolute values may lead to misinterpretation of CBC data. Current Interpretive Data was last revised on 2017. Imm gran pct 0.2 % [facility] Comment: Interpretive Data Percent cell count reference ranges are not reported, since discordance with absolute values may lead to misinterpretation of CBC data. Current Interpretive Data was last revised on 2017. Lymphocyte pct 18.1 % [facility] Comment: Interpretive Data Percent cell count reference ranges are not reported, since discordance with absolute values may lead to misinterpretation of CBC data. Current Interpretive Data was last revised on 2017. Monocyte pct 5.4 % [facility] Comment: Interpretive Data Percent cell count reference ranges are not reported, since discordance with absolute values may lead to misinterpretation of CBC data. Current Interpretive Data was last revised on 2017. Eosinophil pct 2.3 % [facility] Comment: Interpretive Data Percent cell count reference ranges are not reported, since discordance with absolute values may lead to misinterpretation of CBC data. Current Interpretive Data was last revised on 2017. Basophil pct 0.5 % [facility] Comment: Interpretive Data Percent cell count reference ranges are not reported, since discordance with absolute values may lead to misinterpretation of CBC data. Current Interpretive Data was last revised on 2017. Blood 11/10/2024 1:38 PM CDT 11/10/2024 9:09 PM CDT Quirino Berger MD LAB BLOOD ORDERABLES Final Result JULIANA RODRIGUEZ [address] [facility] [place] [address] * Thyroid Function Stanley (11/10/2024 1:38 PM CDT) Pathologist [facility] TSH 3.39 0.30 - 4.20 mcIUnit/mL Blood 11/10/2024 1:38 PM CDT 11/10/2024 9:09 PM CDT Quirino Berger MD LAB BLOOD ORDERABLES Final Result Performing Organization Address [facility] Co de Phone Number JULIANA RODRIGUEZ [address] [address] [facility] [place] [address] * (ABNORMAL) CBC with auto differential (11/10/2024 1:38 PM CDT) Pathologist [facility] WBC 5.74 3.80 - 9.90 K/cumm Hgb 9.0(L) 11.9 - 15.5 g/dL [facility] Hct 31.3(L) 35.6 - 45.5 % [facility] Plt 227 150 - 400 K/cumm [facility] MPV 11.4 9.1 - 12.3 fL [facility] RBC 3.47(L) 3.90 - 5.20 M/cumm [facility] MCV 90.2 81.3 - 96.4 fL [facility] MCH 25.9(L) 27.1 - 33.3 pg [facility] MCHC 28.8(L) 32.3 - 35.7 g/dL [facility] RDW CV 14.4 11.1 - 14.9 % [facility] RDW SD 47.2 35.7 - 48.1 fL [facility] NRBC abs 0.00 0.00 - 0.01 K/cumm [facility] Blood 11/10/2024 1:38 PM CDT 11/10/2024 9:09 PM CDT Quirino Berger MD LAB BLOOD ORDERABLES Final Result Performing Organization Address City/[facility] Co de Phone Number JULIANA RODRIGUEZ [address] [address] Department [employer] [place] [address] * Vitamin D 25 hydroxy (11/10/2024 1:38 PM CDT) Vitamin D 25-OH 31 30 - 80 ng/mL Blood 11/10/2024 1:38 PM CDT 11/10/2024 9:09 PM CDT Quirino Berger MD LAB BLOOD ORDERABLES Final Result Performing Organization Address [facility] Phone Number JULIANA RODRIGUEZ [address] [address] Department of [employer] [place] [address] * Lipid panel (11/10/2024 1:38 PM CDT) [...] NCEP Expert Panel. Circulation 2004;110:227 3. Manan Cardoso al. BRIDGET Cardiol. 2019November 06;5(5):540-548. doi: 10.1001/jamacardio.2020.0013 Current Interpretive Data was last revised on 2024. Non-HDL Cholesterol 67 mg/dL JULIANA Comment: Interpretive Data Ages < or = [...] last revised on 2018. Chol/HDL ratio 3 [facility] Blood 11/10/2024 1:38 PM CDT 11/10/2024 9:09 PM CDT us Quirino Berger MD LAB BLOOD ORDERABLES Final Result [facility] [address] Department [place] [address] * (ABNORMAL) Comprehensive metabolic panel (11/10/2024 1:38 [...] Berger MD LAB BLOOD ORDERABLES Final Result Performing Organization Address [facility] Co de Phone Number JULIANA RODRIGUEZ [address] Department [employer] [place] [address] * CT Thoracic Spine WO Contrast (11/10/2024 7:56 AM CDT) Anatomical Region Laterality Modality Spine N/A Computed Tomogra phy Historical Provider IMG CT PROCEDURES Final R esult * [...] 0 PM CDT 10/21/2024 9:20 PM CDT us Sukhwinder Bruner MD LAB BLOOD ORDERABLES Final Result Performing Organization Address City/[facility] Co de Phone Number JULIANA RODRIGUEZ [address] [address] Department of [employer] [place] [address] * (ABNORMAL) Iron profile w/ IBC (10/21/2024 12:00 PM CDT) Iron 27(L) 35 - 145 mcg/dl TIBC 290 250 - 400 mcg/dL [facility] Transferrin saturation 9(L) 20 - 50 % [facility] Blood 10/21/2024 12:0 0 PM CDT 10/21/2024 9:11 PM CDT us Sukhwinder Bruner MD LAB BLOOD ORDERABLES Final Result Performing Organization Address [facility] Co de Phone Number [facility] [address] [address] [facility] [employer] [place] [address] * (ABNORMAL) Hemoglobin and hematocrit (10/21/2024 12:00 PM CDT) Pathologist [facility] Hgb 9.6(L) 11.9 - 15.5 g/dL Hct 32.9(L) 35.6 - 45.5 % [facility] Blood 10/21/2024 12:0 0 PM CDT 10/21/2024 9:11 PM CDT Sukhwinder Bruner MD LAB BLOOD ORDERABLES Final Result Performing Organization Address [facility] de Phone Number [facility] [address] [address] [facility] [employer] [place], [place] [address] * (ABNORMAL) Protime-INR (10/21/2024 12:00 PM CDT) Pathologist [facility] PT 53.0(H) 9.7 - 13.0 sec INR 4.75(H) 0.90 - 1.20 [facility] Comment: Interpretive data Oral anticoagulant therapeutic [...] ORDERABLES Mirtha l Result Performing Organization Address [facility] Co de Phone Number JULIANA RODRIGUEZ [address] [address] [facility] [employer] [place] [address] * (ABNORMAL) Lactate dehydrogenase (LD) (10/21/2024 12:00 PM CDT) Lactate dehydrogenase (LDH) 261(H) 100 - 250 Units/L Blood 10/21/2024 12:0 0 PM CDT 10/21/2024 9:11 PM CDT Sukhwinder Bruner MD LAB BLOOD ORDERABLES Final Result Performing Organization Address [facility] de Phone Number MICHELLEMARIE RODRIGUEZ [address] [place] [address] * Haptoglobin (10/21/2024 12:00 PM CDT) Pathologist [facility] Haptoglobin 159 30 - 200 mg/dL Blood 10/21/2024 12:0 0 PM CDT 10/21/2024 9:11 PM CDT Sukhwinder Bruner MD LAB BLOOD ORDERABLES Final Result Performing Organization Address [facility] de Phone Number JULIANA RODRIGUEZ [address] [address] [facility] [employer] [place] [address] * (ABNORMAL) Basic metabolic panel (10/21/2024 12:00 PM CDT) Sodium 139 135 - 145 mmol/L Potassium, pl 4.3 3.3 - 4.9 mmol/L [facility] Chloride 102 97 - 110 mmol/L [facility] CO2 26 22 - 32 mmol/L [facility] Anion gap 11 2 - 15 mmol/L [facility] BUN 17 6 - 25 mg/dL [facility] Creatinine 1.66(H) 0.60 - 1.10 mg/dL [facility] Glucose 91 70 - 199 mg/dL [facility] Comment: Interpretive Data Fasting glucose >/= 126 [...] 2022. Calcium 10.0 8.5 - 10.3 mg/dL [facility] Blood 10/21/2024 12:0 0 PM CDT 10/21/2024 9:11 PM CDT Sukhwinder Bruner MD LAB BLOOD ORDERABLES Final Result Performing Organization Address City/State/[facility] Co ut Phone Number [facility] [address] Department [place] [address] * DEVICE CHECK - IN OFFICE (10/14/2024 10:44 AM CDT) Anatomical Region Laterality Modality Other Narrative 10/14/2024 3:13 PM CDT [employer] BIV Pacemaker. Dx; CM, CHF, LBBB, PAF. DOI 09/26/2023-[facility]. Chronic leads 08/16/2015-[place]. [place] remote transfer requested. Device is NOT MRI compatible-confirmed 09/15/21. Dr. Nelly VELÁSQUEZ at [facility]. Aug 2015. Supervising MD: Staci Office DDDR [...] consecutive PVCs. Most recent alert [place] 10/14/24 [facility] [place] 4 PVCs in a row. Medications; Coumadin, ASA 81 mg, carvedilol 12.5 mg No programming changes made to device settings. See scanned report. Office device f/u 11/18/25 [place] remote f/u 01/13/25 Vitaliy Hogue, RN Blake Dee MD CV CARDIAC SERVICES [facility] Final Result * (ABNORMAL) eGFR (09/23/2024 1:13 [...] MD LAB BLOOD ORDERABLES Final Result JULIANA [address] [address] Department [place] [address] * Differential, auto (09/23/2024 1:13 PM CDT) Neutrophil abs 4.5 1.5 - 6.5 K/cumm Imm gran abs 0.0 0.0 - 0.1 K/cumm [facility] Lymphocyte abs 1.2 0.8 - 3.3 K/cumm [facility] Monocyte abs 0.4 0.2 - 0.8 K/cumm [facility] Eosinophil abs 0.2 0.0 - 0.5 K/cumm [facility] Basophil abs 0.1 0.0 - 0.1 K/cumm [facility] Neutrophil pct 71.2 % [facility] Comment: Interpretive Data Percent cell count reference ranges are not reported, since discordance with absolute values may lead to misinterpretation of CBC data. Current Interpretive Data was last revised on 2017. Imm gran pct 0.3 % [facility] Comment: Interpretive Data Percent cell count reference ranges are not reported, since discordance with absolute values may lead to misinterpretation of CBC data. Current Interpretive Data was last revised on 2017. Lymphocyte pct 18.9 % [facility] Comment: Interpretive Data Percent cell count reference ranges are not reported, since discordance with absolute values may lead to misinterpretation of CBC data. Current Interpretive Data was last revised on 2017. Monocyte pct 6.0 % [facility] Comment: Interpretive Data Percent cell count reference ranges are not reported, since discordance with absolute values may lead to misinterpretation of CBC data. Current Interpretive Data was last revised on 2017. Eosinophil pct 2.8 % [facility] Comment: Interpretive Data Percent cell count reference ranges are not reported, since discordance with absolute values may lead to misinterpretation of CBC data. Current Interpretive Data was last revised on 2017. Basophil pct 0.8 % [facility] Comment: Interpretive Data Percent cell count reference ranges are not reported, since discordance with absolute values may lead to misinterpretation of CBC data. Current Interpretive Data was last revised on 2017. Blood 09/23/2024 1:13 PM CDT 09/23/2024 9:32 PM CDT Sukhwinder Bruner MD LAB BLOOD ORDERABLES Final Result JULIANA [address] Department [place] [address] * Urinalysis reflex to microscopic and culture Urine, clean voided (09/23/2024 1:13 PM CDT) Color, ur Yellow Yellow Clarity, ur Clear Clear [facility] Specific gravity, ur 1.026 1.003 - 1.030 [facility] pH, urine 5.5 [facility] Comment: Interpretive Data U rine pH is affected by diet, medications, systemic acid-base disturbances, and renal tubular function. pH may affect urinary stone formation. For example, urine pH below 6.0 may help reduce the tendency for calcium phosphate stones and pH greater than 6.0 may reduce the tendency for uric acid stone formation. Source: [facility] [employer] Current Interpretive Data was last revised on [...] for microscopic UA and culture not met. [facility] Urine, clean voided 09/23/2024 1:13 PM CDT 09/23/2024 9:32 PM CDT Sukhwinder Bruner MD LAB MICROBIOLOGY - GENERAL ORDERABLES Final Result [facility] [address] [address] Department [place] [address] * (ABNORMAL) CBC with auto differential (09/23/2024 1:13 PM CDT) WBC 6.4 3.8 - 9.9 K/cumm Hgb 9.4(L) 11.9 - 15.5 g/dL [facility] Hct 32.5(L) 35.6 - 45.5 % [facility] Plt 215 150 - 400 K/cumm [facility] MPV 12.2 9.1 - 12.3 fL [facility] RBC 3.40(L) 3.90 - 5.20 M/cumm [facility] MCV 95.6 81.3 - 96.4 fL [facility] MCH 27.6 27.1 - 33.3 pg [facility] MCHC 28.9(L) 32.3 - 35.7 g/dL [facility] RDW CV 15.0(H) 11.1 - 14.9 % [facility] RDW SD 52.5(H) 35.7 - 48.1 fL [facility] NRBC abs 0.00 0.00 - 0.01 K/cumm [facility] Blood 09/23/2024 1:13 PM CDT 09/23/2024 9:32 PM CDT Sukhwinder Bruner MD LAB BLOOD ORDERABLES Final Result Performing Organization Address [facility] de Phone Number JULIANA [address] [address] Department [employer] [place] [address] * Protein / creatinine ratio, urine, random (09/23/2024 1:13 PM CDT) Protein, ur, quant 24.0 mg/dL Comment: Interpretive Data No reference range established. Current interpretive data was last revised 2018. Creatinine Ur 187.9 mg/dL [facility] Comment: Interpretive Data No reference range established. Current interpretive data was last revised 2018. Protein/creatinin e ratio 127.7 0.0 - 180.0 mg/g CR [facility] Urine 09/23/2024 1:13 PM CDT 09/23/2024 9:32 PM CDT Sukhwinder Bruner MD LAB URINE ORDERABLES Final Result Performing Organization Address [facility] Co de Phone Number [facility] [address] [address] [facility] [employer] [place] [address] * (ABNORMAL) Vitamin D 25 hydroxy (09/23/2024 1:13 PM CDT) Pathologist [facility] Vitamin D 25-OH 24(L) 30 - 80 ng/mL Blood 09/23/2024 1:13 PM CDT 09/23/2024 9:32 PM CDT Sukhwinder Bruner MD LAB BLOOD ORDERABLES Final Result Performing Organization Address [facility] Co de Phone Number JULIANA [address] [address] [facility] [employer] [place], [place] [id number] * (ABNORMAL) Protime-INR (09/23/2024 1:13 PM CDT) PT 31.0(H) 9.7 - 13.0 sec INR 2.81(H) 0.90 - 1.20 JULIANA Comment: Interpretive data [...] ORDERABLES Mirtha l Result Performing Organization Address [facility] Co de Phone Number JULIANA [address] [address] [facility] [employer] [place] [address] * (ABNORMAL) PTH (09/23/2024 1:13 PM CDT) PTH 91(H) 15 - 65 pg/mL Blood 09/23/2024 1:13 PM CDT 09/23/2024 9:32 PM CDT Sukhwinder Bruner MD LAB BLOOD ORDERABLES Final Result Performing Organization Address [facility] Co de Phone Number JULIANA [address] [address] [facility] [employer] [place], [place] [id number] * (ABNORMAL) Renal function panel (09/23/2024 1:13 PM CDT) Sodium 139 135 - 145 mmol/L Potassium, pl 4.8 3.3 - 4.9 mmol/L [facility] Chloride 103 97 - 110 mmol/L [facility] CO2 24 22 - 32 mmol/L [facility] Anion gap 12 2 - 15 mmol/L [facility] BUN 21 6 - 25 mg/dL [facility] Creatinine 1.43(H) 0.60 - 1.10 mg/dL [facility] Glucose 85 70 - 199 mg/dL [facility] Comment: [...] 2022. Calcium 9.5 8.5 - 10.3 mg/dL [facility] Phosphorus, pl 3.6 2.3 - 4.5 mg/dL [facility] Albumin 4.0 3.5 - 5.0 g/dL [facility] Blood 09/23/2024 1:13 PM CDT 09/23/2024 9:32 PM CDT Result [facility] Sukhwinder Bruner MD LAB BLOOD ORDERABLES Final Result JULIANA [address] Department [place] [address] * SCREENING MAMMOGRAM BILATERAL W JAMEL (07/17/2023 12:59 PM [facility]) Anatomical Region Laterality Modality Breast Bilateral Mammography 07/17/2023 1:17 PM [facility] Impressions 07/17/2023 1:17 PM [facility] There is no mammographic evidence of malignancy. A 1 year screening mammogram is recommended. BI-RADS: 2 - Benign. The patient has been or will be contacted. The patient will be entered into a reminder system with a target due date of 1 year for her next mammogram. Electronically signed by: TREVA FIGUEROA Narrative 07/17/2023 1:17 PM [facility] EXAMINATION: SCREENING MAMMOGRAM BILATERAL W JAMEL ORDERING [...] 1 Or 2 Site (08/30/2021 10:30 AM [facility]) Anatomical Region Laterality Modality Body N/A Other 08/30/2021 10:5 2 AM [facility] Narrative 08/30/2021 10:53 AM [facility] EXAM DESCRIPTION: DEXA AXIAL SKELETON BONE DENSITY 1 OR MORE SITES REASON FOR STUDY: 66 y/o year old F with given history of screening. 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 TB: TB Report ID: [id number] [facility] Procedure Note Lisa Vann MD - 08/30/2021 EXAM DESCRIPTION: DEXA AXIAL SKELETON BONE DENSITY 1 OR MORE SITES REASON FOR STUDY: 66 y/o year old F with given history ofscreening. Artificial Teeth Inspector/Model: [employer] SL (S/N [id number]) CLINICAL INFORMATION: Current height: 62 inches Maximum [...] Lisa Vann M.D. TB: TB Report ID: [id number] Reading Location: [facility] Quirino Berger MD IMG DXA PROCEDURES Final Re sult * Hepatitis C antibody (08/17/2021 3:29 PM [facility]) Pathologist [facility] Hep C Ab Nonreactive Nonreactive [facility] Comment: Interpretive Data Nonreactive: Antibodies to HCV [...] revised on 2019. Blood 08/17/2021 3:29 PM [facility] 08/17/2021 3:29 PM [facility] us Quirino Berger MD LAB MICROBIOLOGY - GENERAL ORDERABLES Final Result Performing Organization Address City/State/[place] Number [place] [address] [address] Department [place] [address] from Last 3 Months or Most Recently Relevant to Health Maintenance Insurance [facility] MEDICARE MEDICARE [facility] MED[facility] Advance Directives For more information, please contact: [phone] Documents on File Type Date Recorded Patient Jde Developer Expl anation Advance Directives and Livin g [...] 11:00 PM 12/07/2021 3:31 PM Care Teams 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
--- OUTSIDE RECORDS SUMMARY | 2024-12-04 00:04 | XMS_ITS | Clinical Summary ---
Author Organization [facility] Address [address] [place] [address] Care Team Providers Care Data Control Assistant Name Role Phone Unknown, Provider Primary Care Provider Unavaila ble Source Comments [facility],non-owned Affiliates and Associated Physician Practices is amultiple site organization consisting of ambulatory clinics and hospital sitesin [place], [place], [place] and [place]. This disclosure is being madepursuant to the Care Everywhere program and may not contain all information available regarding this patient. Last updated 18.[facility] Allergies Active Allergy Reactions Criticality Noted Date [...] on file Legal Sex Female 10:20 AM [employer] Gender Identity Not on file Sexual Orientation Not on file Last Filed Vital Signs Vital Sign Reading Time Taken Comments Blood Pressure 120/80 05/28/2021 10:41 AM [employer] Pulse 78 05/28/2021 10:41 AM [employer] Temperature 37 C (98.6 F) 05/28/2021 10:41 AM [employer] Respiratory Rate 12 05/28/2021 10:41 AM [employer] Oxygen Saturation 99% 05/28/2021 10:41 AM [employer] Inhaled Oxygen Concentration - - Weight 70.3 kg (155 lb) 05/28/2021 10:41 AM [employer] Height 157.5 cm (5' 2) 05/28/2021 10:41 AM [employer] Body Mass Index 28.35 05/28/2021 10:41 AM ASS[employer] Plan of Treatment Health Maintenance Due Date [...] patient's age to complete [place] [address] [facility] Address: [facility] [id number] [place] [address] Care Teams Data Control Assistant Relationship Specialty Start Date End Date Unknown, Provider PCP - General 05/27/21
--- NOTE | 2024-12-04 00:17 | ED.SOB ---
HPI - SOB/Dyspnea General Chief Complaint: Shortness of Breath/Dyspnea Stated Complaint: Shortness of breath-85% RA, placed on 2l Time Seen by Provider: 12/03/24 23:49 History of Present Illness HPI Narrative: 69-year-old female with extensive past medical history including persistent AFib status post pacemaker, recent T10 to T11 vertebral osteomyelitis, bacterial endocarditis, infected pacemaker hardware status post removal 11/25/2024 at [facility], heparin-induced thrombocytopenia recently diagnosed, aortic valve replacement aortic grafting replacement in 2021, previous ECMO cannulation for 45 days in 2021 from mediastinitis and aortic/ventricular injury requiring repair. Patient currently diagnosed and treated for bloodstream infections with Enterococcus and currently on 6 weeks of antibiotics through right-sided PICC line to be completed in January of this year. Patient is currently on warfarin therapy for her valve replacements both aortic and mitral valve. Patient was discharged from [facility] yesterday and sent to one of our local rehab facilities. She was found to be hypoxic today at 85% on room air requiring supplemental oxygen. Patient occasion wears oxygen at night but was having difficulty breathing and a productive cough. She felt short of breath and had worsening cough status so they sent her to the hospital. She received DuoNeb in route by EMS with some mild improvement in symptoms. Patient presents with her son who provides the majority of the collateral formation access the patient's MyChart for records from outside hospital. Patient was at [facility] for 2 weeks with vertebral osteomyelitis that was biopsied and complicated by bloodstream infection and pacemaker infection/endocarditis requiring removal and continue antibiotics. Related Data Home Medications ?Medication ?Instructions ?Recorded ?Confirmed ?Last Taken ?Type trazodone 50 mg tablet 50 mg PO HS 05/26/22 11/04/24 09/24/23 History carvedilol 12.5 mg tablet 12.5 mg PO Q12H 06/13/23 11/04/24 09/26/23 History diphenhydramine HCl 50 mg capsule 50 mg PO QHS PRN Insomnia 06/13/23 11/04/24 09/24/23 History famotidine 40 mg tablet 40 mg PO DAILY 06/13/23 11/04/24 09/26/23 History furosemide 20 mg tablet 20 mg PO DAILY 06/13/23 11/04/24 09/24/23 History rosuvastatin 40 mg tablet 40 mg PO DAILY 06/13/23 11/04/24 09/25/23 History warfarin 3 mg tablet 3 mg PO DIRECTED 06/13/23 11/04/24 09/19/23 History Allergies Allergy/AdvReac Type Severity Reaction Status Date / Time atorvastatin Allergy Unknown Verified 11/04/24 12:58 hydrocodone (From Vicodin) Allergy Itching Verified 11/04/24 12:58 atropine AdvReac Dizziness Verified 11/04/24 12:58 Sulfa (Sulfonamide AdvReac Vomiting Verified 11/04/24 12:58 Antibiotics) Review of Systems Review of Systems: As reviewed above in HPI [facility] Past Medical History Medical History Chronic anticoagulation Pacemaker Biotronik BiV pacemaker, gen change 09/2023 HTN (hypertension) Hyperlipidemia Cardiomyopathy Atrial fibrillation Overweight (BMI 25.0-29.9) History of cardiac pacemaker Surgical History Surgical History H/O mechanical aortic valve replacement H/O mitral valve repair S/P AVR (aortic valve replacement) Family History Family History Father High cholesterol Heart disease Heart attack CABG Mother Heart disease Pacemaker Social History Social History Smoking packs per day: 1 Smoking cigarettes per day: 20.0 Years smoked: 40 Smoking pack-years: 40.00 Smoking status: Former smoker Tobacco type: cigarettes Smoking end date: 11/22/21 Alcohol intake: never Substance use: never Substance use type: does not use Living arrangements: with family Spiritual care concerns: No Exam Narrative: GENERAL: Ill-appearing, coughing frequently throughout the examination, answering questions appropriately and awake alert HEAD: [Normocephalic, atraumatic.] EYES: [PERRLA and EOMI.] ENT: Nares clear, no rhinorrhea or epistaxis. Mucous membranes moist. NECK: Supple. CHEST: Coarse bibasilar breath sounds left worse than right, no appreciable wheezing or respiratory distress HEART: [Regular rate and rhythm]. No murmur heard. [Normal peripheral pulses.] ABDOMEN: [Soft, nondistended], [nontender], [No rigidity or guarding] EXTREMITIES: Normal range of motion. [No edema.] SKIN: Diffuse ecchymoses over bilateral extremities and chest NEURO: [No focal deficits]. Alert and oriented [x3.] PSYCH: [Normal mood and affect.] Course Vital Signs Vital signs: Vital Signs Temperature 37.2 C 12/03/24 20:46 Pulse Rate 68 12/03/24 20:46 Respiratory Rate 18 12/03/24 20:46 Blood Pressure 131/45 L 12/03/24 20:46 Pulse Oximetry 100 12/03/24 20:46 Oxygen Delivery Nasal Cannula 12/03/24 20:46 Oxygen Flow Rate 2 12/03/24 20:46 Temperature 37.2 C 12/03/24 20:46 Pulse Rate 73 12/04/24 02:09 Respiratory Rate 13 12/04/24 02:09 Blood Pressure 119/62 12/04/24 02:09 Pulse Oximetry 98 12/04/24 02:09 Oxygen Delivery Nasal Cannula 12/03/24 23:52 Oxygen Flow Rate 2 12/03/24 23:52 MDM - SOB/Dyspnea MDM Narrative Medical decision making narrative: 69-year-old female with extensive past medical history including persistent AFib status post pacemaker, recent T10 to T11 vertebral osteomyelitis, bacterial endocarditis, infected pacemaker hardware status post removal 11/25/2024 at [facility], heparin-induced thrombocytopenia recently diagnosed, aortic valve replacement aortic grafting replacement in 2021, previous ECMO cannulation for 45 days in 2021 from mediastinitis and aortic/ventricular injury requiring repair. Patient currently diagnosed and treated for bloodstream infections with Enterococcus and currently on 6 weeks of antibiotics through right-sided PICC line to be completed in January of this year. Patient was discharged from [facility] after 2 week hospitalization yesterday. Patient presents hypoxic requiring oxygen supplementation. She is coughing frequently complaining of cough and difficulty breathing. Appears very ill and unwell. Examination reveals coarse bibasilar breath sounds left worse than right considerations presently for hospital-acquired pneumonia, empyema, fluid collection, pulmonary edema, sepsis from her recent bloodstream infection even though she is currently on antibiotics, pulmonary embolism given hospitalization and heparin-induced thrombocytopenia recently diagnosed. ACS, aortic injury/complications such as graft endoleak versus dissection/aneurysm possible given her extensive aortic and cardiac history. I discussed with the son at bedside extensively the need to transfer the patient back to her care facility where she was managed and discharged yesterday after our workup here and identification of any life or limb threatening process. CTA of the chest ordered to rule out PE and to further identify any pneumonia or effusions. Laboratory studies including CBC, CMP, troponin, BNP, lactic acid, PT, PTT ordered. She was given broad-spectrum antibiotics including vancomycin cefepime. Patient's workup reveals no significant leukocytosis. Hemoglobin of 7.6 which is decreased from her previous levels but no evidence of any acute hemorrhage. Unclear when her hemoglobin was at [facility]. Normal platelet count. Coagulation with a INR of 2.7 therapeutic. Electrolytes show no significant derangements. Creatinine around her baseline CKD. Normal glucose. LFTs are largely elevated compared to baseline, negative lactic acid. BNP is elevated and nearly 5000. Troponin is negative. Chest x-ray shows left basilar atelectasis versus pneumonia with an effusion and the CTA shows no filling defects consistent with pulmonary embolism but there is extensive left lower lobe atelectasis/effusion with persisting concern for pneumonia based on her oxygen requirements and recent systemic infections. I discussed the case with the [facility] transfer system and was connected with the hospitalist Dr. Lian morse at [facility] who accepted the patient as a direct transfer for a cardiac monitor technician hospital bed although there is currently a hospital bed waiting list. I discussed this with the family members at bedside and they were made aware of the findings on workup and need for transfer for continuity of care and treatment of her acute respiratory issues. Patient will remain in the emergency department for the time being pending transfer with repeat evals and possibility on admission here if prolonged transfer process. She remains hemodynamically stable this time but still on supplemental oxygen. Medical Records Attestation: I reviewed the patient's medical records. Lab Data Attestation: I reviewed the patient's lab results. 12/04/24 00:28 12/04/24 01:11 Labs: Lab Results 12/04/24 12/04/24 12/04/24 Range/Units 00:28 01:11 02:12 WBC 5.7 (4.5-10.0) K/mm3 RBC 2.87 L (4.2-5.4) M/mm3 Hgb 7.6 L (12.0-15.0) g/dL Hct 26.9 L (37.0-47.0) % MCV 93.7 (80-100) fl MCH 26.5 (26-34) pg MCHC 28.3 L (32-36) g/dl RDW 17.2 H (11.5-14.5) % Plt Count 172 (150-375) k/mm3 MPV 10.9 H (7.4-10.4) fl Immature Gran % (Auto) 4.8 H (0-0.5) % Neut % (Auto) 71.7 (45.5-73.1) % Lymph % (Auto) 10.8 L (18.3-44.2) % [place] % (Auto) 7.1 (2.6-8.5) % Eos % (Auto) 4.2 (0-4.4) % Baso % (Auto) 1.4 H (0.2-1.2) % Lymph # (Auto) 0.61 L (0.9-3.2) K/mm3 [place] # (Auto) 0.4 (0.1-0.6) K/mm3 Eos # (Auto) 0.2 (0-0.3) K/mm3 Baso # (Auto) 0.1 (0.0-0.1) K/mm3 Abs Immat Gran (auto) 0.27 H (0.00-0.031) K/mm3 Absolute Neuts (auto) 4.1 (1.3-6.7) K/mm3 Absolute Nucleated RBC 0.000 (0.0-0.012) K/mm3 Band Neutrophils % Not Reportable Nucleated RBC % 0.0 (0.0-0.2) % Platelet Estimate Adequate (Adequate) Hypochromasia 1+ Schistocytes None seen PT 28.9 H (11.1-14.7) Seconds INR 2.7 APTT 40.6 H (22.3-36.8) Seconds Sodium 140 (137-145) mmol/L Potassium 4.3 (3.4-5.0) mmol/L Chloride 111 H (98-107) mmol/L Carbon Dioxide 19 L (22-30) mmol/L Anion Gap 10 (4-12) mmol/L BUN 15 (7-17) mg/dL Creatinine 1.65 H 1.70 H (0.7-1.0) mg/dL Estim Creat Clear Calc 27 26 ml/min Estimated GFR 31 L 30 L (59 - ) Glucose 106 (65-110) mg/dL Lactic Acid 1.1 (0.7-2.0) mmol/L Calcium 8.6 (8.4-10.2) mg/dL Total Bilirubin 0.4 (0.2-1.3) mg/dL AST 239 H (14-36) U/L ALT 137 H (6-35) U/L Alkaline Phosphatase 130 H (38-126) U/L Troponin I 0.026 (0.000-0.034) ng/mL NT-Pro-B Natriuret Pep 4910 H (19.9-100) pg/mL Total Protein 7.0 (6.3-8.2) g/dL Albumin 3.4 L (3.5-5.1) g/dL Nasal MRSA (PCR) Not detected (NOT DETECTE) Imaging Data Attestation: I personally reviewed and interpreted this imaging study as follows: My impression: Impressions Chest X-Ray 12/03/24 22:05 IMPRESSION: Left basilar atelectasis versus pneumonia with possible Effusion ECG Data EKG #1: Attestation: I personally reviewed and interpreted this ECG as follows: ECG completion date: 12/04/24 ECG completion time: 21:14 Prior ECG tracings: not available for review Interpretation: Poor baseline quality of the EKG but appears sinus rhythm with terrible artifact obscuring details and P-waves. No large ST segment deviation or acute occlusive MT evident. Critical Care Time Critical Care Time Critical Care Time: Yes Total Critical Care Time: 75 Discharge Plan Discharge Clinical Impression: Acute and chronic respiratory failure with hypoxia, Hospital acquired PNA, Pleural effusion, Elevated LFTs, Elevated brain natriuretic peptide (BNP) level, Requires supplemental oxygen, History of endocarditis, Osteomyelitis of thoracic vertebra Patient Disposition: Acute Care Hospital Condition: Stable Patient Language: Paraguayan Prescriptions: No Action spironolactone [Aldactone] 25 mg Tablet 25 mg PO DAILY Qty: 30 0RF sertraline 100 mg Tablet 100 mg PO DAILY Qty: 30 0RF famotidine 40 mg tablet 40 mg PO DAILY furosemide 20 mg tablet 20 mg PO DAILY warfarin 3 mg tablet 3 mg PO DIRECTED Rx Instructions: 3mg Tu+Th; 4.5mg Mon,Wed,Fri,Sat,Sun rosuvastatin 40 mg tablet 40 mg PO DAILY carvedilol 12.5 mg tablet 12.5 mg PO Q12H Rx Instructions: must administer with a meal/food diphenhydramine HCl 50 mg capsule 50 mg PO QHS PRN (Reason: Insomnia) trazodone 50 mg Tablet 50 mg PO HS cyclobenzaprine 10 mg tablet 10 mg PO BID PRN (Reason: muscle spasm) Qty: 14 0RF tlhchsvmag-bthjzvok-fkxudngooz 160-9-4.8 mcg/actuation HFA aerosol inhaler 2 inh inhalation BID Qty: 10.7 6RF qrvzipgjhb-eekyhefc-brxggtfeyc 160-9-4.8 mcg/actuation HFA aerosol inhaler 2 inh inhalation BID Qty: 10.7 3RF hekyshnwta-ybauponp-qfboxpgysy 160-9-4.8 mcg/actuation HFA aerosol inhaler 2 inh inhalation BID Qty: 10.7 3RF albuterol sulfate 90 mcg/actuation HFA aerosol inhaler 1 puff inhalation Q4H PRN (Reason: Shortness Of Breath) Qty: 8.5 6RF Follow-up/Referrals: Ab,Quirino Chávez MD [Primary Care Provider] - Time of Disposition: 04:23
[2024-12-04 00:45] LABS: Lactic Acid Reflex 1.1 mmol/L (0.7-2.0)
[2024-12-04 00:48] LABS: INR 2.7; Partial Thromboplastin Time 40.6 Seconds (22.3-36.8); Prothrombin Time 28.9 Seconds (11.1-14.7)
[2024-12-04 00:53] LABS: Basophils Absolute Auto 0.1 K/mm3 (0.0-0.1); Basophils Percent Auto 1.4 % (0.2-1.2); Eosinophils Absolute Auto 0.2 K/mm3 (0-0.3); Eosinophils Percent Auto 4.2 % (0-4.4); Hematocrit 26.9 % (37.0-47.0); Hemoglobin 7.6 g/dL (12.0-15.0); Immature Granulocyte Absolute 0.27 K/mm3 (0.00-0.031); Immature Granulocyte Percent A 4.8 % (0-0.5); Lymphocytes Absolute Auto 0.61 K/mm3 (0.9-3.2); Lymphocytes Percent Auto 10.8 % (18.3-44.2); Mean Corpuscular HGB Conc 28.3 g/dl (32-36); Mean Corpuscular Hemoglobin 26.5 pg (26-34); Mean Corpuscular Volume 93.7 fl (80-100); Mean Platelet Volume 10.9 fl (7.4-10.4); Monocytes Absolute Auto 0.4 K/mm3 (0.1-0.6); Monocytes Percent Auto 7.1 % (2.6-8.5); Neutrophils Absolute Auto 4.1 K/mm3 (1.3-6.7); Neutrophils Percent Auto 71.7 % (45.5-73.1); Platelet Count Result 172 k/mm3 (150-375); Red Blood Count 2.87 M/mm3 (4.2-5.4); Red Cell Distribution Width 17.2 % (11.5-14.5); White Blood Count 5.7 K/mm3 (4.5-10.0)
[2024-12-04 00:55] LABS: NT Pro B Type Natriuretic Pept 4910 pg/mL (19.9-100)
[2024-12-04 00:58] LABS: Troponin I 0.026 ng/mL (0.000-0.034)
[2024-12-04 00:59] LABS: Hypochromasia 1+; Platelet Estimate Adequate (Adequate); Schistocytes None Seen
[2024-12-04 01:02] LABS: Alanine Aminotransferase 137 U/L (6-35); Albumin Level 3.4 g/dL (3.5-5.1); Alkaline Phosphatase 130 U/L (38-126); Anion Gap 10 mmol/L (4-12); Aspartate Amino Transferase 239 U/L (14-36); Bilirubin,Total 0.4 mg/dL (0.2-1.3); Blood Urea Nitrogen 15 mg/dL (7-17); Calcium 8.6 mg/dL (8.4-10.2); Carbon Dioxide 19 mmol/L (22-30); Chloride 111 mmol/L (98-107); Estimated CRCL calculation 27 ml/min; Estimated Glomerular Filt Rate 31; Glucose 106 mg/dL (65-110); Potassium 4.3 mmol/L (3.4-5.0); Sodium 140 mmol/L (137-145)
[2024-12-04 01:16] LABS: Estimated CRCL calculation 26 ml/min; Estimated Glomerular Filt Rate 30
[2024-12-04] MEDS: CEFEPIME 2 GM/NS 50 ML 2 GM/50 ML BAG IVPB (01:34)
[2024-12-04] MEDS: VANCOMYCIN 1,750 MG/NS 500 ML 1,750 MG/500 ML BAG 250 MG IVPB (02:11)
--- NOTE | 2024-12-04 02:58 | PC.NURSE ---
Spoke with Hillary from [facility] transfer center for triage questions. She stated there is a long wait list and patient will be here in the ER for a few days.
[2024-12-04 03:28] LABS: MRSA (PCR) NOT DETECTED (NOT DETECTE)
--- NOTE | 2024-12-04 09:19 | PC.NURSE ---
Tara from [facility] transfer center calling for update on pt status, requested VS and were given as requested. Pt continues to be on wait list and [facility] will call with updates on when a bed is available.
[2024-12-04] MEDS: CEFEPIME 1 GM/NS 50 ML 1 GM/50 ML BAG IVPB ×2 (11:01→21:15)
--- NOTE | 2024-12-04 12:31 | PC.NURSE ---
Lunch tray ordered.
[2024-12-04] MEDS: IPRATROPIUM BR 0.02% INH SOLN 0.5 MG/2.5 ML VIAL INHALATION (18:04)
[2024-12-04] MEDS: ALBUTEROL SULFATE NEB 2.5 MG/3 ML INH 1.25 MG INHALATION (18:04)
--- NOTE | 2024-12-04 20:24 | PC.NURSE ---
received report from [facility] JESUS Colmenares for cont. of care. Pt lying on stretcher on on 2L via NC with oxygen saturation at 97%. Pt reports feeling SOB and nausea.
[2024-12-04] MEDS: IPRATROPIUM 0.5 MG/ALBUTEROL SULFATE 2.5 MG AMPUL.NEB 3 ML INHALATION (21:25)
--- NOTE | 2024-12-04 21:38 | PC.NURSE ---
pt reports SOB when assisted to bathroom. MD Vergara made aware, refer to MAR for medication administration.
--- NOTE | 2024-12-04 23:16 | PC.NURSE ---
Spoke to [place] transfer center, provided updated on plan of care. Per transfer center will take a couple days to have a bed available.
[2024-12-05] VITALS (28 sets, daily range): BP systolic 109–155; BP diastolic 51–87; PULSE 66–102; RESP 19–28; TEMP 36.5–36.9; O2SAT 94–99; BMI 27.4
--- NOTE | 2024-12-05 04:35 | ADMGEN ---
This patient, Kendal Junior, was admitted to 3 Med Surg Room 322-01. Patient/family oriented to hospital policies and general routines including ID bracelet, bed and alarms, visiting hours, pain management, procedures, bathroom and other care routines, personal items, smoking policy, room service/diet, and visiting hours. Information on how to activate the Rapid Response Team has been discussed. Patient/Family are encouraged to report perceived risks to care and to ask questions if they do not understand what they are told or what they should do.
[2024-12-05] MEDS: IPRATROPIUM 0.5 MG/ALBUTEROL SULFATE 2.5 MG AMPUL.NEB 3 ML INHALATION ×6 (04:41→23:58)
--- NOTE | 2024-12-05 05:19 | P.HP_ITS ---
H&P: HPI History of Present Illness Date/Time: 12/05/24 05:19 Chief Complaint: Shortness of breath Narrative: Ms. Junior is a 69-year-old female with history of AFib status post pacemaker, CKD, recent T10/T11 vertebral osteomyelitis, bacterial endocarditis, infected pacemaker hardware status post removal on 11/25/2024 at [facility], heparin-induced thrombocytopenia, aortic valve replacement/aortic grafting replacement in 2021, previous ECMO in 2021 due to mediastinum night is and aortic/ventricular injury requiring repair. She was recently hospitalized at [facility] for bacteremia with Enterococcus and then discharged on 6 weeks of antibiotics by a right-sided PICC line which was scheduled to be completed in 01/2025. She is on warfarin for both aortic and mitral valve replacements. She was just discharged from [facility] on 12/03/24 and then presented to [facility] on 12/04/2024 with complaint of difficulty breathing and cough with copious yellow sputum. EMS was summoned. She received DuoNeb with some improvement in her symptoms. Extensive collaboration between ER physician and patient's son was conducted in the ER to obtain records from outside hospital. As mentioned above, she was hospitalized for 2 weeks at [facility] with vertebral osteomyelitis and bacteremia and pacemaker infection and endocarditis. She reports requiring 2 L nasal cannula q.h.s. chronically. Your evaluation revealed tachypnea, 88% SpO2 on room air, placed on 2 L nasal cannula. WBC 5.7, hemoglobin 7.6, platelet 172 home INR 2.7, serum creatinine 1.7 which is just around her baseline, BNP 4900, transaminitis, CT chest with contrast did not reveal PE, aortic dissection or aneurysm, bilateral pleural effusions, left lower lobe pneumonia, pulmonary edema. Received cefepime, vancomycin, DuoNeb. Accepted to [facility] for transfer, currently no bed available. Review of Systems Review of Systems: All systems reviewed & are unremarkable except as noted in HPI and below (HPI) [facility] Past Medical History Medical History Chronic anticoagulation Pacemaker Biotronik BiV pacemaker, gen change 09/2023 HTN (hypertension) Hyperlipidemia Cardiomyopathy Atrial fibrillation Overweight (BMI 25.0-29.9) History of cardiac pacemaker Surgical History Surgical History H/O mechanical aortic valve replacement H/O mitral valve repair S/P AVR (aortic valve replacement) Family History Family History Father High cholesterol Heart disease Heart attack CABG Mother Heart disease Pacemaker Social History Social History Smoking packs per day: 1 Smoking cigarettes per day: 20.0 Years smoked: 40 Smoking pack-years: 40.00 Smoking status: Former smoker Tobacco type: cigarettes Second hand tobacco smoke exposure: Yes Alcohol intake: never Substance use: never Substance use type: does not use Do You Feel Safe in your Home?: Yes Lack of Transportation: No Lack of Food: Never True Current Housing: I Have Housing Concerned About Future Housing: No Difficulty Paying Gas/Electric Bills: No Difficulty Paying for Meds: No Currently Unemployed: No Education: Associate Degree Difficulty w/ Childcare or Family Care: No Living arrangements: with family Spiritual care concerns: No Meds Home Medications and Allergies Home Medications ?Medication ?Instructions ?Recorded ?Confirmed ?Type sertraline 100 mg tablet 100 mg PO DAILY #30 tabs 02/09/22 11/04/24 Rx spironolactone 25 mg tablet 25 mg PO DAILY #30 tabs 02/09/22 11/04/24 Rx (Aldactone) trazodone 50 mg tablet 50 mg PO HS 05/26/22 11/04/24 History carvedilol 12.5 mg tablet 12.5 mg PO Q12H 06/13/23 11/04/24 History diphenhydramine HCl 50 mg capsule 50 mg PO QHS PRN Insomnia 06/13/23 11/04/24 History famotidine 40 mg tablet 40 mg PO DAILY 06/13/23 11/04/24 History furosemide 20 mg tablet 20 mg PO DAILY 06/13/23 11/04/24 History rosuvastatin 40 mg tablet 40 mg PO DAILY 06/13/23 11/04/24 History warfarin 3 mg tablet 3 mg PO DIRECTED 06/13/23 11/04/24 History budesonide 160 mcg-glycopyr 9 2 inh inhalation BID #10.7 grams 11/06/23 12/05/24 Rx mcg-formot 4.8 mcg/actuation HFA inhaler budesonide 160 mcg-glycopyr 9 2 inh inhalation BID #10.7 grams 03/05/24 12/05/24 Rx mcg-formot 4.8 mcg/actuation HFA inhaler budesonide 160 mcg-glycopyr 9 2 inh inhalation BID #10.7 grams 05/22/24 12/05/24 Rx mcg-formot 4.8 mcg/actuation HFA inhaler albuterol sulfate 90 mcg/actuation 1 puff inhalation Q4H PRN 07/21/24 12/05/24 Rx aerosol inhaler Shortness Of Breath #8.5 grams cyclobenzaprine 10 mg tablet 10 mg PO BID PRN muscle spasm #14 09/01/24 11/04/24 Rx tabs Allergies Allergy/AdvReac Type Severity Reaction Status Date / Time atorvastatin Allergy Unknown Verified 11/04/24 12:58 hydrocodone (From Vicodin) Allergy Itching Verified 11/04/24 12:58 atropine AdvReac Dizziness Verified 11/04/24 12:58 Sulfa (Sulfonamide AdvReac Vomiting Verified 11/04/24 12:58 Antibiotics) Vital Signs Vital Signs - 24 hr 12/04/24 05:31 12/04/24 06:41 12/04/24 07:23 Temperature Pulse Rate 72 61 61 Respiratory Rate 16 19 17 Blood Pressure 156/84 H 157/73 H 147/65 H Pulse Oximetry 98 100 Oxygen Delivery Oxygen Flow Rate 12/04/24 07:31 12/04/24 08:16 12/04/24 08:19 Temperature Pulse Rate 68 61 60 Respiratory Rate 16 17 30 H Blood Pressure 131/67 128/54 L 128/54 L Pulse Oximetry 100 98 98 Oxygen Delivery Oxygen Flow Rate 12/04/24 09:01 12/04/24 09:20 12/04/24 12:01 Temperature 97.8 F Pulse Rate 59 L 62 62 Respiratory Rate 19 17 18 Blood Pressure 116/55 L 116/55 L 120/61 Pulse Oximetry 98 97 98 Oxygen Delivery Oxygen Flow Rate 12/04/24 12:13 12/04/24 13:32 12/04/24 15:30 Temperature Pulse Rate 61 73 68 Respiratory Rate 18 22 H 25 H Blood Pressure 120/61 150/78 H Pulse Oximetry 98 93 Oxygen Delivery Oxygen Flow Rate 12/04/24 15:45 12/04/24 16:00 12/04/24 16:15 Temperature Pulse Rate 67 69 66 Respiratory Rate 23 H 17 23 H Blood Pressure Pulse Oximetry 95 97 95 Oxygen Delivery Oxygen Flow Rate 12/04/24 16:30 12/04/24 18:07 12/04/24 18:08 Temperature Pulse Rate 82 85 Respiratory Rate 23 H 20 Blood Pressure Pulse Oximetry 96 95 Oxygen Delivery Nasal Cannula Oxygen Flow Rate 2 12/04/24 18:16 12/04/24 18:35 12/04/24 18:36 Temperature Pulse Rate 90 68 Respiratory Rate 20 18 Blood Pressure 154/58 H Pulse Oximetry 97 97 Oxygen Delivery Nasal Cannula Oxygen Flow Rate 2 12/04/24 20:45 12/04/24 21:00 12/04/24 21:01 Temperature Pulse Rate 68 79 74 Respiratory Rate 21 H 15 16 Blood Pressure 150/71 H Pulse Oximetry 97 96 96 Oxygen Delivery Oxygen Flow Rate 12/04/24 21:21 12/04/24 21:28 12/04/24 21:38 Temperature Pulse Rate 78 76 83 Respiratory Rate 22 H 20 17 Blood Pressure 150/72 H Pulse Oximetry 99 Oxygen Delivery Oxygen Flow Rate 12/04/24 21:46 12/04/24 22:00 12/04/24 22:15 Temperature Pulse Rate 79 85 81 Respiratory Rate 22 H 22 H 20 Blood Pressure 146/64 H Pulse Oximetry 99 98 96 Oxygen Delivery Oxygen Flow Rate 12/04/24 22:30 12/04/24 22:31 12/04/24 22:45 Temperature Pulse Rate 83 82 80 Respiratory Rate 23 H 22 H 19 Blood Pressure 133/71 Pulse Oximetry 88 L 91 91 Oxygen Delivery Oxygen Flow Rate 12/04/24 23:00 12/04/24 23:15 12/04/24 23:16 Temperature Pulse Rate 79 77 73 Respiratory Rate 13 17 20 Blood Pressure 121/59 L Pulse Oximetry 86 L 88 L 88 L Oxygen Delivery Oxygen Flow Rate 12/04/24 23:45 12/05/24 00:00 12/05/24 00:01 Temperature Pulse Rate 81 70 70 Respiratory Rate 20 22 H 21 H Blood Pressure 109/65 Pulse Oximetry 100 99 98 Oxygen Delivery Oxygen Flow Rate 12/05/24 01:00 12/05/24 01:15 12/05/24 01:31 Temperature Pulse Rate 94 86 80 Respiratory Rate 21 H 25 H 24 H Blood Pressure 155/55 H 134/62 Pulse Oximetry 98 97 97 Oxygen Delivery Oxygen Flow Rate 12/05/24 02:00 12/05/24 02:30 12/05/24 02:41 Temperature Pulse Rate 88 83 84 Respiratory Rate 21 H 23 H 28 H Blood Pressure 143/81 H Pulse Oximetry 95 98 99 Oxygen Delivery Oxygen Flow Rate 12/05/24 03:01 12/05/24 04:45 12/05/24 04:55 Temperature Pulse Rate 83 101 H 101 H Respiratory Rate 23 H 24 H 22 H Blood Pressure 129/68 Pulse Oximetry 98 Oxygen Delivery Oxygen Flow Rate Exam Const: General: comfortable and no acute distress HENMT: Mouth: Yes moist mucous membranes Eyes: Pupils: Equal, round and reactive pupils present Neck: Neck: supple Resp: Effort & Inspection: normal respiratory effort Auscultation: rhonchi Cardio: Rate: regular rate Rhythm: regular rhythm GI: GI Palp: Yes Soft to palpation and No Tenderness to palpation present (GI) Extrem: General: no edema Assessment and Plan Assessment and plan (1) Hospital acquired PNA: Code(s): J18.9 - Pneumonia, unspecified organism; Y95 - Nosocomial condition Status: Acute (2) Acute and chronic respiratory failure with hypoxia: Code(s): J96.21 - Acute and chronic respiratory failure with hypoxia Status: Acute Plan Continue vancomycin and cefepime. Pending blood cultures, obtain sputum culture. Continue DuoNebs. Wean O2 as tolerated. Currently awaiting bed at [place]. Accepted by hospitalist Dr. Beal. After some time in the ER patient admitted to inpatient to continue management under the hospice team. Patient currently stable. Full code. SCDs. Pending med reconciliation. Will restart meds as appropriate and indicated. Hospitalist MIPS Advance Care Plan I have confirmed that the patient's Advanced Care Plan is present, code status is documented, or surrogate decision maker is listed in patient medical record.: Yes Medication Reconciliation I have utilized all available resources to obtain, update and review the patients current medications (includes all prescriptions, OTC, herbals, cannabis, and nutritional supplements).: Yes
[2024-12-05 06:18] LABS: Basophils Percent Auto 0.3 % (0.2-1.2); Eosinophils Absolute Auto 0.1 K/mm3 (0-0.3); Eosinophils Percent Auto 1.4 % (0-4.4); Hematocrit 26.1 % (37.0-47.0); Hemoglobin 7.3 g/dL (12.0-15.0); Immature Granulocyte Absolute 0.03 K/mm3 (0.00-0.031); Immature Granulocyte Percent A 0.5 % (0-0.5); Lymphocytes Absolute Auto 0.39 K/mm3 (0.9-3.2); Lymphocytes Percent Auto 6.7 % (18.3-44.2); Mean Corpuscular Hemoglobin 26.5 pg (26-34); Mean Corpuscular Volume 94.9 fl (80-100); Mean Platelet Volume 11.1 fl (7.4-10.4); Monocytes Absolute Auto 0.4 K/mm3 (0.1-0.6); Monocytes Percent Auto 6.7 % (2.6-8.5); Neutrophils Absolute Auto 4.9 K/mm3 (1.3-6.7); Neutrophils Percent Auto 84.4 % (45.5-73.1); Platelet Count Result 170 k/mm3 (150-375); Red Blood Count 2.75 M/mm3 (4.2-5.4); Red Cell Distribution Width 17.7 % (11.5-14.5); White Blood Count 5.8 K/mm3 (4.5-10.0)
[2024-12-05 06:27] LABS: Alanine Aminotransferase 144 U/L (6-35); Albumin Level 3.4 g/dL (3.5-5.1); Alkaline Phosphatase 120 U/L (38-126); Anion Gap 13 mmol/L (4-12); Aspartate Amino Transferase 183 U/L (14-36); Bilirubin,Total 0.3 mg/dL (0.2-1.3); Blood Urea Nitrogen 12 mg/dL (7-17); Calcium 8.6 mg/dL (8.4-10.2); Carbon Dioxide 18 mmol/L (22-30); Chloride 109 mmol/L (98-107); Estimated CRCL calculation 29 ml/min; Estimated Glomerular Filt Rate 34; Glucose 74 mg/dL (65-110); Potassium 3.7 mmol/L (3.4-5.0); Sodium 140 mmol/L (137-145)
[2024-12-05 06:46] LABS: Influenza A QL RT-PCR Negative (Negative); Influenza B QL RT-PCR Negative (Negative); RSV RNA, RT-PCR Negative (Negative); SARS-CoV-2 RNA PCR Negative (Negative)
[2024-12-05 06:48] LABS: Platelet Estimate Adequate (Adequate)
[2024-12-05 06:49] LABS: Anisocytosis 1+; Burr Cells 1+; Hypochromasia 1+; Ovalocytes 1+; Schistocytes None Seen; Target Cells 1+
[2024-12-05] MEDS: CEFEPIME 1 GM/NS 50 ML 1 GM/50 ML BAG IVPB ×2 (09:17→21:48)
[2024-12-05 10:21] LABS: Base Excess ABG -5.2 mEq/l (+/-2.0); Carboxyhemoglobin 0.1 % THb (0-2.0); Fractional Inspired Oxygen 28 %; HCO3 ABG 21.1 mEq/l (22.0-26.0); Methemoglobin ABG 1.4 %THb (0-1.5); PCO2 ABG 44.9 mmHg (35.0-45.0); Reduced Hemoglobin 75.5 %THb (0-5.0)
--- NOTE | 2024-12-05 11:52 | P.PNIM_ITS ---
Progress Note: A&P Assessment and Plan (1) Hospital acquired PNA: Code(s): J18.9 - Pneumonia, unspecified organism; Y95 - Nosocomial condition Status: Acute Assessment and Plan: CXR: Left basilar atelectasis versus pneumonia with possible Effusion - Risk Factors: none - Complicating Factors: none - started on HAP: Cefepime & Vanc (discontinued due to (-) MRSA) - Viral PCR: negative for Flu/COVID/RSV - Consider ordering legionella, mycoplasma and pneumococcal - Monitor vital signs, I&Os, neuro status and patient is a fall risk - Follow WBC, serum electrolytes, temperature curves and cultures - sputum cultures pending - Oxygen via NC; wean as tolerated. Keep SpO2 greater than 88% - Gentle IV fluid resuscitation (2) Acute and chronic respiratory failure with hypoxia: Code(s): J96.21 - Acute and chronic respiratory failure with hypoxia Status: Acute Assessment and Plan: * Symptoms: Shortness of breath * SpO2: 94% * Oxygen supplementation: 2 L NC * Suspected cause: HAP * ABG: PH 7.289 PO2 less than 27, HC03 2.11 oxy hemoglobin 23 * EKG: Atrial fibrillation * Chest XR: Left basilar atelectasis versus pneumonia with possible Effusion (3) Transaminitis: Code(s): R74.01 - Elevation of levels of liver transaminase levels Status: Acute Assessment and Plan: * Upon admission:AST 239, ALT 137 * Repeat: 183, 144 respectively * Physical exam benign, no abdominal pain * RUQ US Subjective Date/time seen: 12/05/24 11:52 Interval history: Ms. Junior is a 69-year-old female with history of AFib status post pacemaker, CKD, recent T10/T11 vertebral osteomyelitis, bacterial endocarditis, infected pacemaker hardware status post removal on 11/25/2024 at [place], heparin-induced thrombocytopenia, aortic valve replacement/aortic grafting repl acement in 2021, previous ECMO in 2021 due to mediastinum night is and aortic/ventricular injury requiring repair. She was recently hospitalized at [place] for bacteremia with Enterococcus and then discharged on 6 weeks of antibiotics by a right-sided PICC line which was scheduled to be completed in 01/2025. 12/05/2024 Patient sitting comfortably in bed at time of exam. Vital signs appear to be stable with a pulse rate of 97 and O2 saturation of 94% on 2 L NC, however patient states shortness of breath has improved when compared to yesterday. Pending transfer to [facility] at this time. Review of Systems Review of Systems: All systems reviewed & are unremarkable except as noted in HPI and below (HPI) Exam Const: General: comfortable and no acute distress HENMT: Mouth: Yes moist mucous membranes Eyes: Pupils: Equal, round and reactive pupils present Neck: Neck: supple Resp: Effort & Inspection: normal respiratory effort Auscultation: rhonchi Cardio: Rate: regular rate Rhythm: regular rhythm Neuro: Cranial nerves: Yes Equal, round and reactive pupils present Extrem: General: no edema Objective Data Vital Signs Vital Signs: Vital Signs - 24 hr 12/04/24 12:01 12/04/24 12:13 12/04/24 13:32 Temperature Pulse Rate 62 61 73 Respiratory Rate 18 18 22 H Blood Pressure 120/61 120/61 150/78 H Pulse Oximetry 98 98 Oxygen Delivery Oxygen Flow Rate 12/04/24 15:30 12/04/24 15:45 12/04/24 16:00 Temperature Pulse Rate 68 67 69 Respiratory Rate 25 H 23 H 17 Blood Pressure Pulse Oximetry 93 95 97 Oxygen Delivery Oxygen Flow Rate 12/04/24 16:15 12/04/24 16:30 12/04/24 18:07 Temperature Pulse Rate 66 82 85 Respiratory Rate 23 H 23 H 20 Blood Pressure Pulse Oximetry 95 96 Oxygen Delivery Oxygen Flow Rate 12/04/24 18:08 12/04/24 18:16 12/04/24 18:35 Temperature Pulse Rate 90 68 Respiratory Rate 20 18 Blood Pressure 154/58 H Pulse Oximetry 95 97 Oxygen Delivery Nasal Cannula Oxygen Flow Rate 2 12/04/24 18:36 12/04/24 20:45 12/04/24 21:00 Temperature Pulse Rate 68 79 Respiratory Rate 21 H 15 Blood Pressure Pulse Oximetry 97 97 96 Oxygen Delivery Nasal Cannula Oxygen Flow Rate 2 12/04/24 21:01 12/04/24 21:21 12/04/24 21:28 Temperature Pulse Rate 74 78 76 Respiratory Rate 16 22 H 20 Blood Pressure 150/71 H 150/72 H Pulse Oximetry 96 99 Oxygen Delivery Oxygen Flow Rate 12/04/24 21:38 12/04/24 21:46 12/04/24 22:00 Temperature Pulse Rate 83 79 85 Respiratory Rate 17 22 H 22 H Blood Pressure 146/64 H Pulse Oximetry 99 98 Oxygen Delivery Oxygen Flow Rate 12/04/24 22:15 12/04/24 22:30 12/04/24 22:31 Temperature Pulse Rate 81 83 82 Respiratory Rate 20 23 H 22 H Blood Pressure 133/71 Pulse Oximetry 96 88 L 91 Oxygen Delivery Oxygen Flow Rate 12/04/24 22:45 12/04/24 23:00 12/04/24 23:15 Temperature Pulse Rate 80 79 77 Respiratory Rate 19 13 17 Blood Pressure Pulse Oximetry 91 86 L 88 L Oxygen Delivery Oxygen Flow Rate 12/04/24 23:16 12/04/24 23:45 12/05/24 00:00 Temperature Pulse Rate 73 81 70 Respiratory Rate 20 20 22 H Blood Pressure 121/59 L Pulse Oximetry 88 L 100 99 Oxygen Delivery Oxygen Flow Rate 12/05/24 00:01 12/05/24 01:00 12/05/24 01:15 Temperature Pulse Rate 70 94 86 Respiratory Rate 21 H 21 H 25 H Blood Pressure 109/65 155/55 H Pulse Oximetry 98 98 97 Oxygen Delivery Oxygen Flow Rate 12/05/24 01:31 12/05/24 02:00 12/05/24 02:30 Temperature Pulse Rate 80 88 83 Respiratory Rate 24 H 21 H 23 H Blood Pressure 134/62 Pulse Oximetry 97 95 98 Oxygen Delivery Oxygen Flow Rate 12/05/24 02:41 12/05/24 03:01 12/05/24 04:00 Temperature 97.8 F Pulse Rate 84 83 98 Respiratory Rate 28 H 23 H 20 Blood Pressure 143/81 H 129/68 154/87 H Pulse Oximetry 99 98 96 Oxygen Delivery Oxygen Flow Rate 12/05/24 04:45 12/05/24 04:55 12/05/24 08:39 Temperature Pulse Rate 101 H 101 H Respiratory Rate 24 H 22 H Blood Pressure Pulse Oximetry 95 Oxygen Delivery Nasal Cannula Oxygen Flow Rate 2 12/05/24 09:23 12/05/24 09:44 Temperature Pulse Rate 102 H 98 Respiratory Rate 22 H 24 H Blood Pressure Pulse Oximetry Oxygen Delivery Oxygen Flow Rate Intake/Output Intake/Output: Intake & Output 12/02/24 12/03/24 12/04/24 12/05/24 23:59 23:59 23:59 23:59 Intake Total 650 100 Balance 650 100 Meds/Results Medications: Active Medications Generic Name Dose Route Start Last Admin Trade Name Freq PRN Reason Stop Dose Admin Acetaminophen 650 mg 12/05/24 01:09 Acetaminophen 325 Mg Tablet PO Q4H PRN Mild Pain (1-3) or Fever Albuterol/Ipratropium 3 ml 12/05/24 09:15 12/05/24 09:15 Ipratropium 0.5 Mg/Albuterol Sulfate 2.5 Mg Ampul.Neb 3 Ml INHALATION 3 ml Q4HRT GLORY Administration Cefepime HCl 1 gm in 50 mls @ 100 mls/hr 12/04/24 10:00 12/05/24 09:17 Maxipime 1 Gm/Ns 50 Ml IVPB 100 mls/hr Q12HR GLORY Administration Ondansetron HCl 4 mg 12/05/24 01:09 Ondansetron Inj 4 Mg/2 Ml Vial IV PUSH Q4H PRN Nausea Radiology Results: ITS Impressions Chest X-Ray 12/03/24 22:05 IMPRESSION: Left basilar atelectasis versus pneumonia with possible Effusion Chest CTA 12/04/24 05:22 Impression: No evidence of pulmonary embolus, aortic dissection, or aortic aneurysm. Small left pleural effusion and minimal right pleural effusion, with left lower lobe atelectasis and probable minimal pulmonary edema. Correlate clinically for left lower lobe pneumonia. 4.5 x 2.4 x 4.5 cm hematoma just superficial to the left pectoralis major muscle with small bubble of air within it. Correlate for recent trauma or procedure in this region. T10 compression fracture is new from prior exam. Large Schmorl's node at the superior plate of T11 and mild erosive change at the inferior endplate of T10 are also new. These are likely degenerative/related to fracture, however osteomyelitis/discitis is a potential alternative consideration. If this latter diagnosis is of clinical concern, then MRI with and without contrast recommended for further evaluation. Labs Labs: Laboratory Results - last 24 hr 12/05/24 12/05/24 05:57 06:03 WBC 5.8 RBC 2.75 L Hgb 7.3 L Hct 26.1 L MCV 94.9 MCH 26.5 MCHC 28.0 L RDW 17.7 H Plt Count 170 MPV 11.1 H Immature Gran % (Auto) 0.5 Neut % (Auto) 84.4 H Lymph % (Auto) 6.7 L [place] % (Auto) 6.7 Eos % (Auto) 1.4 Baso % (Auto) 0.3 Lymph # (Auto) 0.39 L [place] # (Auto) 0.4 Eos # (Auto) 0.1 Baso # (Auto) 0.0 Abs Immat Gran (auto) 0.03 Absolute Neuts (auto) 4.9 Absolute Nucleated RBC 0.000 Band Neutrophils % Not Reportable Nucleated RBC % 0.0 Platelet Estimate Adequate Hypochromasia 1+ Anisocytosis 1+ Target Cells 1+ Ovalocytes 1+ Barbra Cells 1+ Schistocytes None seen Sodium 140 Potassium 3.7 Chloride 109 H Carbon Dioxide 18 L Anion Gap 13 H BUN 12 Creatinine 1.51 H Estim Creat Clear Calc 29 Estimated GFR 34 L Glucose 74 Calcium 8.6 Magnesium 2.0 Total Bilirubin 0.3 AST 183 H ALT 144 H Alkaline Phosphatase 120 Total Protein 7.0 Albumin 3.4 L Influenza A (RT-PCR) Negative Influenza B (RT-PCR) Negative RSV (RT-PCR) Negative SARS-CoV-2 RNA (RT-PCR) Negative Quality VTE Prophylaxis VTE prophylaxis: mechanical ordered
[2024-12-05 11:59] LABS: PO2 ABG < 27.0 mmHg (80.0-100.0); Total Hemoglobin 7.7 g/dL (12.0-18.0); pH ABG 7.289 (7.350-7.450)
[2024-12-05 12:00] LABS: Device NASAL CANNULA; Modified Allen's Test Pass; Site Drawn LEFT BRACHIAL
--- NOTE | 2024-12-05 12:00 | PC.NURSE ---
ABG results received. pH ABG 7.289, PO2 <27.0, total hemoglobin 7.7, Oxyhemoglobin 23.0. Results reported at 1159 am on 12/05/2024. Hospitalist Flor Del Rio notified at 1210pm via phone. Sample is mixed per respiratory therapist. Hospitalist notified. No new orders received.
[2024-12-05] MEDS: hydrOXYzine HCL 12.5 MG TABLET PO (13:50)
[2024-12-05] MEDS: GABAPENTIN 300 MG CAPSULE PO (16:59)
[2024-12-05] MEDS: ACETAMINOPHEN 325 MG TABLET 650 MG PO (17:11)
[2024-12-05] MEDS: CENTRAL LINE FLUSH 10 ML IV PUSH (21:53)
[2024-12-06] VITALS (23 sets, daily range): BP systolic 116–147; BP diastolic 55–76; PULSE 75–107; RESP 20–24; TEMP 36.4–37; O2SAT 89–95
[2024-12-06] MEDS: ALBUTEROL SULFATE (*SP) AEROSOL 1 PUFF INHALATION (01:43)
[2024-12-06] MEDS: hydrOXYzine HCL 12.5 MG TABLET PO ×3 (01:43→22:04)
[2024-12-06] MEDS: IPRATROPIUM 0.5 MG/ALBUTEROL SULFATE 2.5 MG AMPUL.NEB 3 ML INHALATION ×3 (03:39→12:28)
[2024-12-06] MEDS: hydrOXYzine HCL 10 MG TABLET PO (05:58)
[2024-12-06] MEDS: CENTRAL LINE FLUSH 10 ML IV PUSH ×3 (05:59→22:13)
[2024-12-06] MEDS: FUROSEMIDE INJ 40 MG/4 ML VIAL 20 MG IV PUSH (08:15)
[2024-12-06] MEDS: FERROUS SULFATE 325 MG TABLET DR BY MOUTH (08:41)
[2024-12-06] MEDS: SERTRALINE HCL 50 MG TABLET 100 MG PO (08:41)
[2024-12-06] MEDS: GABAPENTIN 300 MG CAPSULE PO ×3 (08:41→16:36)
[2024-12-06] MEDS: FAMOTIDINE 20 MG TABLET 40 MG PO (08:42)
[2024-12-06] MEDS: CEFEPIME 1 GM/NS 50 ML 1 GM/50 ML BAG IVPB (08:43)
[2024-12-06 09:09] LABS: Estimated CRCL calculation 39 ml/min; Estimated Glomerular Filt Rate 48
[2024-12-06 09:48] LABS: Alveolar/Arterial O2 Gradient 154.2 mmHg; Base Excess ABG -1.7 mEq/l (+/-2.0); Fractional Inspired Oxygen 36 %; HCO3 ABG 22.1 mEq/l (22.0-26.0); Oxygen Content ABG 12.1 %vol (16.0-22.0); Oxygen Saturation ABG 93.2 % (95.0-100.0); Oxyhemoglobin 92.7 % THb (90.0-100.0); PCO2 ABG 33.6 mmHg (35.0-45.0); PO2 ABG 63.5 mmHg (80.0-100.0); PO2 FiO2 Ratio Arterial Blood 1.76 %; Total Hemoglobin 9.2 g/dL (12.0-18.0); pH ABG 7.436 (7.350-7.450)
[2024-12-06 09:49] LABS: Device NASAL CANNULA; Modified Allen's Test Pass; Site Drawn LEFT RADIAL
--- NOTE | 2024-12-06 14:33 | P.PNIM_ITS ---
Progress Note: A&P Assessment and Plan (1) Hospital acquired PNA: Code(s): J18.9 - Pneumonia, unspecified organism; Y95 - Nosocomial condition Status: Acute Assessment and Plan: CXR: Left basilar atelectasis versus pneumonia with possible Effusion - Risk Factors: none - Complicating Factors: none - started on HAP: Cefepime & Vanc (discontinued due to (-) MRSA) - Viral PCR: negative for Flu/COVID/RSV - Consider ordering legionella, mycoplasma and pneumococcal - Monitor vital signs, I&Os, neuro status and patient is a fall risk - Follow WBC, serum electrolytes, temperature curves and cultures - sputum cultures pending - Oxygen via NC; wean as tolerated. Keep SpO2 greater than 88% (2) Acute and chronic respiratory failure with hypoxia: Code(s): J96.21 - Acute and chronic respiratory failure with hypoxia Status: Acute Assessment and Plan: * Symptoms: Shortness of breath * SpO2: 94% * Oxygen supplementation: 2 L NC * Suspected cause: HAP * ABG: PH 7.289 PO2 less than 27, HC03 2.11 oxy hemoglobin 23 * EKG: Atrial fibrillation * Chest XR: Left basilar atelectasis versus pneumonia with possible Effusion * dc breathing treatments (3) Transaminitis: Code(s): R74.01 - Elevation of levels of liver transaminase levels Status: Acute Assessment and Plan: * Upon admission:AST 239, ALT 137 * Repeat: 183, 144 respectively * Physical exam benign, no abdominal pain * RUQ US (4) S/P AVR (aortic valve replacement): Code(s): Z95.2 - Presence of prosthetic heart valve Status: Acute (5) H/O mitral valve repair: Code(s): Z98.890 - Other specified postprocedural states Status: Acute (6) H/O mechanical aortic valve replacement: Code(s): Z95.2 - Presence of prosthetic heart valve Status: Acute (7) Cardiomyopathy: Code(s): I42.9 - Cardiomyopathy, unspecified Status: Acute Assessment and Plan: order lasix 40 mg po bid (8) HTN (hypertension): Code(s): I10 - Essential (primary) hypertension Status: Acute Assessment and Plan: watch blood pressures (9) Anemia: Code(s): D64.9 - Anemia, unspecified Status: Acute Assessment and Plan: order iv venofer today for hb of 7 Subjective Date/time seen: 12/06/24 14:33 Interval history: Ms. Junior is a 69-year-old female with history of AFib status post pacemaker, CKD, recent T10/T11 vertebral osteomyelitis, bacterial endocarditis, infected pacemaker hardware status post removal on 11/25/2024 at [place], heparin-induced thrombocytopenia, aortic valve replacement/aortic grafting repla cement in 2021, previous ECMO in 2021 due to mediastinum night is and aortic/ventricular injury requiring repair. She was recently hospitalized at [place] for bacteremia with Enterococcus and then discharged on 6 weeks of antibiotics by a right-sided PICC line which was scheduled to be completed in 01/2025. 12/05/2024 Patient sitting comfortably in bed at time of exam. Vital signs appear to be stable with a pulse rate of 97 and O2 saturation of 94% on 2 L NC, however patient states shortness of breath has improved when compared to yesterday. Pending transfer to [facility] at this time. 12/06/2024 Pt needing 3 liters of oxygen today cxr and abg ordered and reviewed Order iv lasix for pt for pulmonary edema Order venofer for low hb Pt awaiting transfer to [facility] recent pacemaker removal Pt had all her cardiac procedures in [place] Review of Systems Review of Systems: Ongoing SOB Exam Const: General: comfortable and no acute distress HENMT: Mouth: Yes moist mucous membranes Eyes: Pupils: Equal, round and reactive pupils present Neck: Neck: supple Resp: Effort & Inspection: normal respiratory effort Auscultation: rhonchi Cardio: Rate: regular rate Rhythm: regular rhythm Neuro: Cranial nerves: Yes Equal, round and reactive pupils present Extrem: General: no edema Objective Data Vital Signs Vital Signs: Vital Signs - 24 hr 12/05/24 16:00 12/05/24 16:06 12/05/24 16:16 Temperature Pulse Rate 95 96 95 Respiratory Rate 24 H 24 H Blood Pressure Pulse Oximetry Oxygen Delivery Oxygen Flow Rate 12/05/24 19:56 12/05/24 19:57 12/05/24 20:00 Temperature Pulse Rate 82 Respiratory Rate 20 Blood Pressure Pulse Oximetry 94 96 Oxygen Delivery Nasal Cannula Nasal Cannula Oxygen Flow Rate 2 2 12/05/24 20:00 12/05/24 20:06 12/05/24 22:00 Temperature 36.5 C Pulse Rate 93 90 74 Respiratory Rate 20 19 Blood Pressure 112/51 L Pulse Oximetry 94 Oxygen Delivery Oxygen Flow Rate 12/06/24 00:00 12/06/24 00:01 12/06/24 00:10 Temperature Pulse Rate 93 83 95 Respiratory Rate 20 20 Blood Pressure Pulse Oximetry Oxygen Delivery Oxygen Flow Rate 12/06/24 01:45 12/06/24 01:45 12/06/24 03:40 Temperature Pulse Rate 90 100 Respiratory Rate 21 H 20 Blood Pressure Pulse Oximetry 89 L Oxygen Delivery Nasal Cannula Oxygen Flow Rate 2 12/06/24 03:45 12/06/24 03:52 12/06/24 04:00 Temperature Pulse Rate 93 107 H Respiratory Rate 20 Blood Pressure Pulse Oximetry 91 Oxygen Delivery Nasal Cannula Oxygen Flow Rate 3 12/06/24 06:00 12/06/24 07:33 12/06/24 07:33 Temperature 36.4 C Pulse Rate 77 75 Respiratory Rate 20 24 H Blood Pressure 116/55 L Pulse Oximetry 93 94 Oxygen Delivery Oxygen Flow Rate 3 12/06/24 07:40 12/06/24 08:00 12/06/24 08:00 Temperature Pulse Rate 81 99 Respiratory Rate 24 H Blood Pressure Pulse Oximetry 93 Oxygen Delivery Nasal Cannula Oxygen Flow Rate 2 12/06/24 08:30 12/06/24 09:53 12/06/24 10:00 Temperature 36.4 C Pulse Rate 93 Respiratory Rate 20 Blood Pressure 147/58 H Pulse Oximetry 95 95 94 Oxygen Delivery Nasal Cannula Nasal Cannula Oxygen Flow Rate 4 3 12/06/24 12:28 12/06/24 12:36 Temperature Pulse Rate 87 90 Respiratory Rate 20 20 Blood Pressure Pulse Oximetry Oxygen Delivery Oxygen Flow Rate Intake/Output Intake/Output: Intake & Output 12/03/24 12/04/24 12/05/24 12/06/24 23:59 23:59 23:59 23:59 Intake Total 650 990 440 Output Total 2300 Balance 650 990 -1860 Meds/Results Medications: Active Medications Generic Name Dose Route Start Last Admin Trade Name Freq PRN Reason Stop Dose Admin Acetaminophen 650 mg 12/05/24 01:09 12/05/24 17:11 Acetaminophen 325 Mg Tablet PO 650 mg Q4H PRN Administration Mild Pain (1-3) or Fever Albuterol 1 puff 12/05/24 15:27 12/06/24 01:43 Albuterol Sulfate (*Sp) Aerosol 1 Puff INHALATION 1 puff Q4H PRN Administration Shortness Of Breath Famotidine 40 mg 12/06/24 09:00 12/06/24 08:42 Famotidine 20 Mg Tablet PO 40 mg DAILY GLORY Administration Ferrous Sulfate 325 mg 12/06/24 09:00 12/06/24 08:41 Ferrous Sulfate [address] BY MOUTH 325 mg DAILY GLORY Administration Fluticasone Propionate 2 spray 12/06/24 09:00 Fluticasone Propionate 0.05% Na Spr 16 Gm Btl (*Bkc) NASAL DAILY GLORY Gabapentin 300 mg 12/05/24 17:00 12/06/24 08:41 Gabapentin 300 Mg Capsule PO 300 mg TID GLORY Administration Hydroxyzine HCl 12.5 mg 12/05/24 12:27 12/06/24 08:42 Hydroxyzine Hcl 12.5 Mg Tablet PO 12.5 mg Q6H PRN Administration Agitation Hydroxyzine HCl 10 mg 12/05/24 14:42 12/06/24 05:58 Hydroxyzine Hcl 10 Mg Tablet PO 10 mg Q6H PRN Administration Anxiety Cefepime HCl 2 gm in 50 mls @ 100 mls/hr 12/06/24 21:00 Maxipime 2 Gm/Ns 50 Ml IVPB Q12HR [facility] Iron Sucrose 200 mg/ Iron 265 mls @ 176.667 mls/hr 12/06/24 14:32 Sucrose 100 mg/ Sodium IVPB 12/06/24 16:01 Chloride ONCE ONE Ondansetron HCl 4 mg 12/05/24 01:09 Ondansetron Inj 4 Mg/2 Ml Vial IV PUSH Q4H PRN Nausea Polyethylene Glycol 17 gm 12/06/24 09:00 12/06/24 10:31 Polyethylene Glycol 3350 17 Gm Powd.Pack PO Not Given DAILY GLORY Sertraline HCl 100 mg 12/06/24 09:00 12/06/24 08:41 Sertraline Hcl 50 Mg Tablet PO 100 mg DAILY GLORY Administration Sodium Chloride 10 ml 12/05/24 22:00 12/06/24 05:59 Central Line Flush IV PUSH 10 ml Q8HR GLORY Administration Sodium Chloride 10 ml 12/05/24 14:31 Central Line Flush IV PUSH PRN PRN with TPN bag changes Sodium Chloride 20 ml 12/05/24 14:31 Central Line Flush IV PUSH PRN PRN after blood draws Radiology Results: ITS Impressions Chest CTA 12/04/24 05:22 Impression: No evidence of pulmonary embolus, aortic dissection, or aortic aneurysm. Small left pleural effusion and minimal right pleural effusion, with left lower lobe atelectasis and probable minimal pulmonary edema. Correlate clinically for left lower lobe pneumonia. 4.5 x 2.4 x 4.5 cm hematoma just superficial to the left pectoralis major muscle with small bubble of air within it. Correlate for recent trauma or procedure in this region. T10 compression fracture is new from prior exam. Large Schmorl's node at the superior plate of T11 and mild erosive change at the inferior endplate of T10 are also new. These are likely degenerative/related to fracture, however osteomyelitis/discitis is a potential alternative consideration. If this latter diagnosis is of clinical concern, then MRI with and without contrast recommended for further evaluation. Abdomen Ultrasound 12/06/24 07:41 IMPRESSION: 1: Status post cholecystectomy with expected prominence of the common bile duct. If there is concern for obstructing stone or mass in the duct, consider MRCP study. Chest X-Ray 12/06/24 09:26 Impression: 1: Cardiomegaly with mild interstitial edema. 2: Possible superimposed pneumonia left mid and lower thorax. 3: Small left pleural effusion. Labs Labs: Laboratory Results - last 24 hr 12/06/24 12/06/24 08:32 09:15 Puncture Site Left radial ABG pH 7.436 ABG pCO2 33.6 L ABG pO2 63.5 L ABG PO2/FiO2 Ratio 1.76 ABG HCO3 22.1 ABG O2 Saturation 93.2 L ABG O2 Content 12.1 L ABG Base Excess -1.7 A-a Gradient 154.2 Oxyhemoglobin 92.7 Total Hemoglobin 9.2 L O2 Delivery Device Nasal cannula O2 Liters/Min 4.0 FiO2 36 Creatinine 1.14 H Estim Creat Clear Calc 39 Estimated GFR 48 L
[2024-12-06 16:19] LABS: Alanine Aminotransferase 131 U/L (6-35); Alkaline Phosphatase 125 U/L (38-126); Anion Gap 15 mmol/L (4-12); Aspartate Amino Transferase 124 U/L (14-36); Bilirubin,Total 0.5 mg/dL (0.2-1.3); Blood Urea Nitrogen 10 mg/dL (7-17); Carbon Dioxide 21 mmol/L (22-30); Chloride 104 mmol/L (98-107); Estimated CRCL calculation 37 ml/min; Estimated Glomerular Filt Rate 46; Glucose 92 mg/dL (65-110); Potassium 3.5 mmol/L (3.4-5.0); Sodium 140 mmol/L (137-145)
[2024-12-06] MEDS: FUROSEMIDE 40 MG TABLET PO (16:36)
[2024-12-06] MEDS: IRON SUCROSE COMPLEX 200 MG, IRON SUCROSE COMPLEX 100 MG in SODIUM CHLORIDE 0.9% IV 250 ML 176.67 MG IVPB (16:36)
--- NOTE | 2024-12-06 20:02 | PC.NURSE ---
On 12/06/24, the ASSEMBLY WORKER, Alissa Echols, provided care and completed [employer] documentation on this patient. I have reviewed the ASSEMBLY WORKER's documentation and agree with the findings.
[2024-12-06] MEDS: CEFEPIME 2 GM/NS 50 ML 2 GM/50 ML BAG IVPB (21:58)
[2024-12-07] VITALS (11 sets, daily range): BP systolic 122–129; BP diastolic 65–84; PULSE 79–98; RESP 16–18; TEMP 36.6–37; O2SAT 91–96
[2024-12-07] MEDS: CENTRAL LINE FLUSH 10 ML IV PUSH ×3 (05:44→21:13)
[2024-12-07 06:21] LABS: Estimated CRCL calculation 43 ml/min; Estimated Glomerular Filt Rate 54
[2024-12-07] MEDS: POTASSIUM CHLORIDE 20 MEQ PACKET (FOR LIQUID) 40 MEQ PO (09:17)
[2024-12-07] MEDS: SERTRALINE HCL 50 MG TABLET 100 MG PO (09:17)
[2024-12-07] MEDS: polyethylene glycoL 3350 17 GM POWD.PACK PO (09:17)
[2024-12-07] MEDS: CEFEPIME 2 GM/NS 50 ML 2 GM/50 ML BAG IVPB (09:18)
[2024-12-07] MEDS: FUROSEMIDE 40 MG TABLET PO (09:18)
[2024-12-07] MEDS: GABAPENTIN 300 MG CAPSULE PO ×3 (09:18→16:11)
[2024-12-07] MEDS: FERROUS SULFATE 325 MG TABLET DR BY MOUTH (09:18)
[2024-12-07] MEDS: FAMOTIDINE 20 MG TABLET 40 MG PO (09:18)
[2024-12-07] MEDS: FLUTICASONE PROPIONATE 0.05% NA SPR 16 GM BTL (*BKC) 2 SPRAY NASAL (09:35)
[2024-12-07] MEDS: hydrOXYzine HCL 10 MG TABLET PO ×2 (09:35→16:24)
[2024-12-07 11:10] LABS: Basophils Percent Auto 0.3 % (0.2-1.2); Eosinophils Absolute Auto 0.1 K/mm3 (0-0.3); Eosinophils Percent Auto 1.1 % (0-4.4); Hematocrit 29.5 % (37.0-47.0); Hemoglobin 8.7 g/dL (12.0-15.0); Immature Granulocyte Absolute 0.02 K/mm3 (0.00-0.031); Immature Granulocyte Percent A 0.3 % (0-0.5); Lymphocytes Absolute Auto 0.46 K/mm3 (0.9-3.2); Lymphocytes Percent Auto 7.3 % (18.3-44.2); Mean Corpuscular HGB Conc 29.5 g/dl (32-36); Mean Corpuscular Hemoglobin 26.5 pg (26-34); Mean Corpuscular Volume 89.9 fl (80-100); Mean Platelet Volume 10.8 fl (7.4-10.4); Monocytes Absolute Auto 0.3 K/mm3 (0.1-0.6); Monocytes Percent Auto 5.1 % (2.6-8.5); Neutrophils Absolute Auto 5.4 K/mm3 (1.3-6.7); Neutrophils Percent Auto 85.9 % (45.5-73.1); Platelet Count Result 201 k/mm3 (150-375); Red Blood Count 3.28 M/mm3 (4.2-5.4); Red Cell Distribution Width 17.9 % (11.5-14.5); White Blood Count 6.3 K/mm3 (4.5-10.0)
[2024-12-07 11:22] LABS: Anion Gap 12 mmol/L (4-12); Blood Urea Nitrogen 11 mg/dL (7-17); Calcium 8.5 mg/dL (8.4-10.2); Carbon Dioxide 29 mmol/L (22-30); Chloride 97 mmol/L (98-107); Estimated CRCL calculation 44 ml/min; Estimated Glomerular Filt Rate 55; Glucose 88 mg/dL (65-110); Potassium 2.5 mmol/L (3.4-5.0); Sodium 138 mmol/L (137-145)
[2024-12-07 11:27] LABS: Anisocytosis 1+; Hypochromasia 2+; Platelet Estimate Adequate (Adequate)
[2024-12-07 11:28] LABS: Schistocytes None Seen
[2024-12-07] MEDS: FUROSEMIDE INJ 40 MG/4 ML VIAL 20 MG IV PUSH (11:39)
--- NOTE | 2024-12-07 11:46 | P.CONPL_ITS ---
Assessment and Plan Assessment and plan (1) Requires supplemental oxygen: Code(s): Z99.81 - Dependence on supplemental oxygen Status: Acute Assessment and Plan: She is using between 2 and 3 L currently, has underlying COPD, has pleural effusions and left basilar atelectasis due to decompensated cardiac function. (2) Emphysema of lung: Code(s): J43.9 - Emphysema, unspecified Status: Acute Assessment and Plan: Known emphysema, has had slight increase in cough with white sputum over the last 6-7 days, no fever, no sore throat, no infectious symptoms, decompensation of her breathing is due to decompensated diastolic heart failure, now with pleural effusions and left basilar atelectasis. We will continue the Breztri 2 puffs b.i.d. and albuterol p.r.n. shortness of breath. (3) Former smoker: Code(s): Z87.891 - Personal history of nicotine dependence Status: Acute Assessment and Plan: Quit November 27, 2016 Plan plan: She does not have pneumonia. She has decompensated CHF which started getting worse at the end of her admission at [place], worse during the day at [facility], and worse here until she started getting all her diuretics again. She has re-started ampicillin 2 g Q8 - renal dose- and ceftriaxone 2 g IV Q 12 for enterococcal bacteremia with vegetations on pacing wire, explantation of her left pacemaker on November 25. We will increased diuretics for CHF, replete K+, continue ampicillin and ceftriaxone; stop Cefepime; obtain recent d/c summary from [place]. Wean O2 as tolerated. This note is created during computer 'downtime' with issues including slow response time, inability of computer to add diagnoses, slowness navigating the whole EMR system. The patient was seen, evaluated, and proper orders written with verbal communication with the pharmacist by telephone, and I spoke with Dr Jean. This patient received appropriate care despite the barriers from electronic end. History of Present Illness History of Present Illness Consult date: 12/07/24 Requesting physician: Da Giordano PA-C Chief complaint: Hospital-acquired pneumonia, hypoxia requiring Narrative: pt was seen December 07, 2024 at 11:50 am Room 322 NEW: Kendal Junior is a 69-yo female admitted December 04 with shortness of breath and room air saturation 85% within 1 day after arriving at [facility] after a stay at [place] with Enterococcus bacteremia due to infected pacemaker with removal November 25. She has a right upper arm PICC, was receiving ampicillin 2 g IV q.6 hours and Rocephin 2 g q.12 hours planned through February 13. She arrived at [facility] on December 02; this is from her documentation on her cellphone. On December 04- had decreased saturation and shortness of breath. She was admitted to [facility]; CTA on December 04 showed no pulmonary embolus, small left pleural effusion and minimal right pleural effusion, and left lower lobe atelectasis with pulmonary edema. Her admission white blood cell count on December 04 was 5.7. She had anemia H&H 7.6 he hematocrit 26.9%. Protime 28.9. PTT 40.6. She had a venous blood gas that was not remarkable. On December 06 she had an arterial blood gas on 4 L showing pH 7.43, pCO2 33.6, PO2 63.5, HC03 21.1 and saturation 94.2%. She is currently on cefepime for concerns for a hospital acquired pneumonia as she was recently in [place] for an extended stay for explantation of her pacemaker and she had Enterococcus bacteremia. She had a dose of vancomycin on arrival but her MRSA swab was negative so this was discontinued. Backstory: Several weeks ago, The patient developed severe thoracic back pain, I wanted to , was seen in [facility] ER, treated and sent out. She eventually saw pain management [facility], has been treated by Dr Cabrera in the past for back pain and had a kyphoplasty; this time, he treated her pain, referred her to neurosurgeon at [facility]. The neurosurgeon told her to immediately go to emergency department at [place] which she did November 17. 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 She started to feel more short of breath towards the end of her stay, was sent to rehab on December 02, worsened within 24 hours with increased swelling, inability to lie flat, gasping for breath, with decrease in her saturation 85% on room air. She came to [facility] 12/03; see the CTA below. She is having a scant cough with small amounts of white sputum which she says may have started at the end of her stay at [place]. She has not had fever, sore throat, sinus congestion, does not feel like pneumonia but does feel similar to previous episodes of heart failure. She is not on oxygen at baseline. She has an elevated Left hemidiaphragm which is long standing and COPD Gold 2 Group B, and pulmonary nodules, followed in our clinic, last ov was 11/04/[address] Santo Ho, managed with Breztri 2 puffs b.i.d.. and albuterol about once a week. PMH: Chronic atrial fibrillation, Biotronik biventricular pacemaker initial placement 2015, history of mitral valve repair, aortic valve replacement/ aortic valve grafting in 2021, previous ECMO in 2021 due to mediastinitis, aortic/ventricular injury requiring repair. She tells me that when he 13 years ago, she developed chest pain after the , went to the emergency department had broken heart syndrome, who had recovery from that with subsequent cardiac issues. Recent T10/T11 vertebral osteomyelitis, bacterial endocarditis, infected pacemaker hardware status post removal on 11/25/2024 at [place] with enterococcus bacteremia, sent to [facility] AmBisome 2 g q.6 hours and Rocephin to 2 g q.12 hours end date February 13, administered through a right upper arm PICC line. She had heparin-induced thrombocytopenia, DATA * 12/05/24 sputum Gram stain completed 12/07 = many white blood cells, few epithelial cells, few Gram-positive cocci in clusters. * 12/06/24, CXR Cardiomegaly with mild interstitial edema. 2: Possible superimposed pneumonia left mid and lower thorax. 3: Small left pleural effusion. * 12/04/24 CTA ; Impression: No evidence of pulmonary embolus, aortic dissection, or aortic aneurysm. Small left pleural effusion and minimal right pleural effusion, with left lower lobe atelectasis and probable minimal pulmonary edema. Correlate clinically for left lower lobe pneumonia. 4.5 x 2.4 x 4.5 cm hematoma just superficial to the left pectoralis major muscle with small bubble of air within it. Correlate for recent trauma or procedure in this region. T10 compression fracture is new from prior exam. Large Schmorl's node at the superior plate of T11 and mild erosive change at the inferior endplate of T10 are also new. These are likely degenerative/related to fracture, however osteomyelitis/discitis is a potential alternative consideration. If this latter diagnosis is of clinical concern, then MRI with and without contrast recommended for further evaluation. Review of Systems 2 Review of Systems: Before she became sick in early November she was ambulatory. She was on mostly bed rest at [place] and has not been up and walking yet. She was having trouble breathing from the time she went to [facility]. She recently started having increased leg swelling, shortness of breath and orthopnea. All systems reviewed & are unremarkable except as noted in HPI and below PMFSH Past Medical History Medical History Chronic anticoagulation Pacemaker Biotronik BiV pacemaker, gen change 09/2023 HTN (hypertension) Hyperlipidemia Cardiomyopathy Atrial fibrillation Overweight (BMI 25.0-29.9) History of cardiac pacemaker Surgical History Surgical History H/O mechanical aortic valve replacement H/O mitral valve repair S/P AVR (aortic valve replacement) Family History Family History Father High cholesterol Heart disease Heart attack CABG Mother Heart disease Pacemaker Social History Social History Smoking packs per day: 1 Smoking cigarettes per day: 20.0 Years smoked: 40 Smoking pack-years: 40.00 Smoking status: Former smoker Tobacco type: cigarettes Second hand tobacco smoke exposure: Yes Alcohol intake: never Substance use: never Substance use type: does not use Do You Feel Safe in your Home?: Yes Lack of Transportation: No Lack of Food: Never True Current Housing: I Have Housing Concerned About Future Housing: No Difficulty Paying Gas/Electric Bills: No Difficulty Paying for Meds: No Currently Unemployed: No Education: Associate Degree Difficulty w/ Childcare or Family Care: No Living arrangements: with family Spiritual care concerns: No Meds Home Medications and Allergies Home Medications ?Medication ?Instructions ?Recorded ?Confirmed ?Type sertraline 100 mg tablet 100 mg PO DAILY #30 tabs 02/09/22 12/05/24 Rx spironolactone 25 mg tablet 25 mg PO DAILY #30 tabs 02/09/22 12/05/24 Rx (Aldactone) trazodone 50 mg tablet 50 mg PO HS 05/26/22 12/05/24 History carvedilol 12.5 mg tablet 12.5 mg PO Q12H 06/13/23 12/05/24 History diphenhydramine HCl 50 mg capsule 50 mg PO QHS PRN Insomnia 06/13/23 12/05/24 History famotidine 40 mg tablet 40 mg PO DAILY 06/13/23 12/05/24 History furosemide 20 mg tablet 20 mg PO DAILY 06/13/23 12/05/24 History rosuvastatin 40 mg tablet 40 mg PO DAILY 06/13/23 12/05/24 History warfarin 3 mg tablet 3 mg PO DIRECTED 06/13/23 12/05/24 History budesonide 160 mcg-glycopyr 9 2 inh inhalation BID #10.7 grams 11/06/23 12/05/24 Rx mcg-formot 4.8 mcg/actuation HFA inhaler budesonide 160 mcg-glycopyr 9 2 inh inhalation BID #10.7 grams 03/05/24 12/05/24 Rx mcg-formot 4.8 mcg/actuation HFA inhaler budesonide 160 mcg-glycopyr 9 2 inh inhalation BID #10.7 grams 05/22/24 12/05/24 Rx mcg-formot 4.8 mcg/actuation HFA inhaler albuterol sulfate 90 mcg/actuation 1 puff inhalation Q4H PRN 07/21/24 12/05/24 Rx aerosol inhaler Shortness Of Breath #8.5 grams cyclobenzaprine 10 mg tablet 10 mg PO BID PRN muscle spasm #14 09/01/24 12/05/24 Rx tabs ampicillin sodium 2 gram 2 g IV Q6H Osteomyelitis 12/05/24 12/05/24 History intravenous solution ceftriaxone 2 gram intravenous 2 g IV BID Osteomyelitis 12/05/24 12/05/24 History solution ferrous sulfate 325 mg (65 mg 325 mg PO DAILY 12/05/24 12/05/24 History iron) tablet (Feosol) fluticasone propionate 50 2 spray intranasal DAILY 12/05/24 12/05/24 History mcg/actuation nasal spray,suspension gabapentin 300 mg capsule 300 mg PO TID 12/05/24 12/05/24 History hydrocortisone 1 % topical cream 1 applic RECTAL BID 12/05/24 12/05/24 History with perineal applicator hydroxyzine HCl 10 mg tablet 10 mg PO Q4H PRN anxiety 12/05/24 12/05/24 History lidocaine 5 % topical patch 1 patch topical BID 12/05/24 12/05/24 History lorazepam 0.5 mg tablet (Ativan) 0.25 mg PO Q6H PRN anxiety 12/05/24 12/05/24 History methocarbamol 750 mg tablet 750 mg PO TID 12/05/24 12/05/24 History ondansetron 4 mg disintegrating 4 mg PO Q8H PRN nausea and vomiting 12/05/24 12/05/24 History tablet oxycodone 15 mg tablet 7.5 mg PO Q4H PRN pain 12/05/24 12/05/24 History polyethylene glycol 3350 17 17 g PO DAILY 12/05/24 12/05/24 History gram/dose oral powder (ClearLax) warfarin 4 mg tablet 4 mg PO .Evening 12/05/24 12/05/24 History Allergies Allergy/AdvReac Type Severity Reaction Status Date / Time atorvastatin Allergy Unknown Verified 11/04/24 12:58 hydrocodone (From Vicodin) Allergy Itching Verified 11/04/24 12:58 atropine AdvReac Dizziness Verified 11/04/24 12:58 Sulfa (Sulfonamide AdvReac Vomiting Verified 11/04/24 12:58 Antibiotics) Vital Signs Vital Signs - 24 hr 12/06/24 12:00 12/06/24 12:28 12/06/24 12:36 Temperature Pulse Rate 82 87 90 Respiratory Rate 20 20 Blood Pressure Pulse Oximetry Oxygen Delivery Oxygen Flow Rate 12/06/24 14:00 12/06/24 16:00 12/06/24 20:00 Temperature 36.6 C Pulse Rate 88 89 Respiratory Rate 20 Blood Pressure 146/76 H Pulse Oximetry 94 93 Oxygen Delivery Nasal Cannula Oxygen Flow Rate 3 12/06/24 20:00 12/06/24 21:21 12/06/24 21:38 Temperature 37.0 C Pulse Rate 93 78 Respiratory Rate 20 Blood Pressure 135/75 Pulse Oximetry 93 93 Oxygen Delivery Nasal Cannula Oxygen Flow Rate 3 12/07/24 00:00 12/07/24 04:00 12/07/24 05:39 Temperature 36.9 C Pulse Rate 79 79 80 Respiratory Rate 18 Blood Pressure 129/65 Pulse Oximetry 91 Oxygen Delivery Oxygen Flow Rate 12/07/24 08:43 12/07/24 08:55 Temperature Pulse Rate Respiratory Rate Blood Pressure Pulse Oximetry 91 92 Oxygen Delivery Nasal Cannula Nasal Cannula Oxygen Flow Rate 3 3 Exam 2 Narrative: GEN: Alert, oriented, in bed, wearing O2 nasal cannula. Saturation 92% on 3 L/minute. She has a moderate moist wheezy cough. HEENT: pupils are equal, EOMI, symmetrical face; oral membranes moist, Mallampati III airway NECK: Trachea is midline CHEST: Equal air entry, symmetric excursion, scattered crackles, (+) accessory muscle use CV: Irregular S1S2 with crisp metal valve click ABD : (+) bowel sounds Extremities : no clubbing, cyanosis, or edema; Right upper arm PICC line. She has healing incision in left subclavian pocket from removal of ppm PSYCH: normal thought; stops to catch her breath midway through sentences. Results Laboratory Findings 12/07/24 06:00 12/07/24 06:08 ABG, PT/INR, D-dimer: ABG ABG pH 7.436 (7.350-7.450) 12/06/24 09:15 ABG pCO2 33.6 mmHg (35.0-45.0) L 12/06/24 09:15 ABG pO2 63.5 mmHg (80.0-100.0) L 12/06/24 09:15 ABG O2 Saturation 93.2 % (95.0-100.0) L 12/06/24 09:15 PT/INR, D-dimer PT 28.9 Seconds (11.1-14.7) H 12/04/24 00:28 INR 2.7 12/04/24 00:28 Abnormal lab findings: Abnormal Labs 12/04/24 12/04/24 12/05/24 00:28 01:11 06:03 RBC 2.87 L 2.75 L Hgb 7.6 L 7.3 L Hct 26.9 L 26.1 L MCHC 28.3 L 28.0 L RDW 17.2 H 17.7 H MPV 10.9 H 11.1 H Immature Gran % (Auto) 4.8 H Neut % (Auto) 84.4 H Lymph % (Auto) 10.8 L 6.7 L Baso % (Auto) 1.4 H Lymph # (Auto) 0.61 L 0.39 L Abs Immat Gran (auto) 0.27 H PT 28.9 H APTT 40.6 H ABG pH ABG pCO2 ABG pO2 ABG HCO3 ABG O2 Saturation ABG O2 Content Oxyhemoglobin Reduced Hemoglobin Total Hemoglobin Potassium Chloride 111 H 109 H Carbon Dioxide 19 L 18 L Anion Gap 13 H Creatinine 1.65 H 1.70 H 1.51 H Estimated GFR 31 L 30 L 34 L AST 239 H 183 H ALT 137 H 144 H Alkaline Phosphatase 130 H NT-Pro-B Natriuret Pep 4910 H Albumin 3.4 L 3.4 L 12/05/24 12/06/24 12/06/24 10:17 08:28 08:32 RBC Hgb Hct MCHC RDW MPV Immature Gran % (Auto) Neut % (Auto) Lymph % (Auto) Baso % (Auto) Lymph # (Auto) Abs Immat Gran (auto) PT APTT ABG pH 7.289 L* ABG pCO2 ABG pO2 < 27.0 L* ABG HCO3 21.1 L ABG O2 Saturation ABG O2 Content Oxyhemoglobin 23.0 L* Reduced Hemoglobin 75.5 H Total Hemoglobin 7.7 L* Potassium Chloride Carbon Dioxide 21 L Anion Gap 15 H Creatinine 1.18 H 1.14 H Estimated GFR 46 L 48 L AST 124 H ALT 131 H Alkaline Phosphatase NT-Pro-B Natriuret Pep Albumin 12/06/24 12/07/24 12/07/24 09:15 06:00 06:01 RBC 3.28 L Hgb 8.7 L Hct 29.5 L MCHC 29.5 L RDW 17.9 H MPV 10.8 H Immature Gran % (Auto) Neut % (Auto) 85.9 H Lymph % (Auto) 7.3 L Baso % (Auto) Lymph # (Auto) 0.46 L Abs Immat Gran (auto) PT APTT ABG pH ABG pCO2 33.6 L ABG pO2 63.5 L ABG HCO3 ABG O2 Saturation 93.2 L ABG O2 Content 12.1 L Oxyhemoglobin Reduced Hemoglobin Total Hemoglobin 9.2 L Potassium Chloride Carbon Dioxide Anion Gap Creatinine 1.02 H Estimated GFR 54 L AST ALT Alkaline Phosphatase NT-Pro-B Natriuret Pep Albumin 12/07/24 06:08 RBC Hgb Hct MCHC RDW MPV Immature Gran % (Auto) Neut % (Auto) Lymph % (Auto) Baso % (Auto) Lymph # (Auto) Abs Immat Gran (auto) PT APTT ABG pH ABG pCO2 ABG pO2 ABG HCO3 ABG O2 Saturation ABG O2 Content Oxyhemoglobin Reduced Hemoglobin Total Hemoglobin Potassium 2.5 L* Chloride 97 L Carbon Dioxide Anion Gap Creatinine Estimated GFR 55 L AST ALT Alkaline Phosphatase NT-Pro-B Natriuret Pep Albumin
[2024-12-07] MEDS: POTASSIUM CHLORIDE INJ 40 MEQ in SODIUM CHLORIDE 0.9% IV 500 ML 130 MEQ IVPB (13:07)
[2024-12-07] MEDS: AMPICILLIN 2 GM/NS 100 ML 2 GM/100 ML BAG IVPB ×2 (13:07→21:13)
[2024-12-07 13:21] LABS: INR 2.2
--- NOTE | 2024-12-07 13:40 | PM.IMPN ---
Progress Note: A&P Assessment and Plan (1) Hospital acquired PNA: Code(s): J18.9 - Pneumonia, unspecified organism; Y95 - Nosocomial condition Status: Acute Assessment and Plan: CXR: Left basilar atelectasis versus pneumonia with possible Effusion - Risk Factors: none - Complicating Factors: none - started on HAP: Cefepime & Vanc (discontinued due to (-) MRSA) - change to iv ampicilin and iv rocephin (2) Acute and chronic respiratory failure with hypoxia: Code(s): J96.21 - Acute and chronic respiratory failure with hypoxia Status: Acute Assessment and Plan: Symptoms: Shortness of breath Chest XR: Left basilar atelectasis versus pneumonia with possible Effusion dc breathing treatments (3) Transaminitis: Code(s): R74.01 - Elevation of levels of liver transaminase levels Status: Acute Assessment and Plan: Upon admission:AST 239, ALT 137 Repeat: 183, 144 respectively Physical exam benign, no abdominal pain RUQ US reveiwed with pt (4) S/P AVR (aortic valve replacement): Code(s): Z95.2 - Presence of prosthetic heart valve Status: Acute (5) H/O mitral valve repair: Code(s): Z98.890 - Other specified postprocedural states Status: Acute (6) H/O mechanical aortic valve replacement: Code(s): Z95.2 - Presence of prosthetic heart valve Status: Acute (7) Cardiomyopathy: Code(s): I42.9 - Cardiomyopathy, unspecified Status: Acute Assessment and Plan: pt switched to iv lasix (8) HTN (hypertension): Code(s): I10 - Essential (primary) hypertension Status: Acute Assessment and Plan: watch blood pressures (9) Anemia: Code(s): D64.9 - Anemia, unspecified Status: Acute Assessment and Plan: order iv venofer today for hb of 7 Subjective Date/time seen: 12/07/24 13:40 Interval history: Ms. Junior is a 69-year-old female with history of AFib status post pacemaker, CKD, recent T10/T11 vertebral osteomyelitis, bacterial endocarditis, infected pacemaker hardware status post removal on 11/25/2024 at [facility], heparin-induced thrombocytopenia, aortic valve replacement/aortic grafting replacement in 2021, previous ECMO in 2021 due to mediastinum night is and aortic/ventricular injury requiring repair. She was recently hospitalized at [facility] for bacteremia with Enterococcus and then discharged on 6 weeks of antibiotics by a right-sided PICC line which was scheduled to be completed in 01/2025. 12/05/2024 Patient sitting comfortably in bed at time of exam. Vital signs appear to be stable with a pulse rate of 97 and O2 saturation of 94% on 2 L NC, however patient states shortness of breath has improved when compared to yesterday. Pending transfer to [facility] at this time. 12/06/2024 Pt needing 3 liters of oxygen today cxr and abg ordered and reviewed Order iv lasix for pt for pulmonary edema Order venofer for low hb Pt awaiting transfer to [facility] recent pacemaker removal Pt had all her cardiac procedures in [place] 12/07/2024 pts coumadin restarted pt restarted on her amipicillin pt having low potassium krider ordered for pt pt still sob pt started on iv lasix d/w pt and son by the bedside awaiting transfer to [facility] d/e Dr Reyes Review of Systems Review of Systems: ongoing sob Exam Const: General: comfortable and no acute distress HENMT: Mouth: Yes moist mucous membranes Eyes: Pupils: Equal, round and reactive pupils present Neck: Neck: supple Resp: Effort & Inspection: normal respiratory effort Auscultation: rhonchi Cardio: Rate: regular rate Rhythm: regular rhythm Neuro: Cranial nerves: Yes Equal, round and reactive pupils present Extrem: General: no edema Objective Data Vital Signs Vital Signs: Vital Signs - 24 hr 12/06/24 14:00 12/06/24 16:00 12/06/24 20:00 Temperature 36.6 C Pulse Rate 88 89 Respiratory Rate 20 Blood Pressure 146/76 H Pulse Oximetry 94 93 Oxygen Delivery Nasal Cannula Oxygen Flow Rate 3 12/06/24 20:00 12/06/24 21:21 12/06/24 21:38 Temperature 37.0 C Pulse Rate 93 78 Respiratory Rate 20 Blood Pressure 135/75 Pulse Oximetry 93 93 Oxygen Delivery Nasal Cannula Oxygen Flow Rate 3 12/07/24 00:00 12/07/24 04:00 12/07/24 05:39 Temperature 36.9 C Pulse Rate 79 79 80 Respiratory Rate 18 Blood Pressure 129/65 Pulse Oximetry 91 Oxygen Delivery Oxygen Flow Rate 12/07/24 08:43 12/07/24 08:55 Temperature Pulse Rate Respiratory Rate Blood Pressure Pulse Oximetry 91 92 Oxygen Delivery Nasal Cannula Nasal Cannula Oxygen Flow Rate 3 3 Intake/Output Intake/Output: Intake & Output 12/04/24 12/05/24 12/06/24 12/07/24 23:59 23:59 23:59 23:59 Intake Total 320 538 5303 780 Output Total 5100 1000 Balance 650 990 -8370 -220 Meds/Results Medications: Active Medications Generic Name Dose Route Start Last Admin Trade Name Freq PRN Reason Stop Dose Admin Acetaminophen 650 mg 12/05/24 01:09 12/05/24 17:11 Acetaminophen 325 Mg Tablet PO 650 mg Q4H PRN Administration Mild Pain (1-3) or Fever Albuterol 1 puff 12/05/24 15:27 12/06/24 01:43 Albuterol Sulfate (*Sp) Aerosol 1 Puff INHALATION 1 puff Q4H PRN Administration Shortness Of Breath Famotidine 40 mg 12/06/24 09:00 12/07/24 09:18 Famotidine 20 Mg Tablet PO 40 mg DAILY GLORY Administration Ferrous Sulfate 325 mg 12/06/24 09:00 12/07/24 09:18 Ferrous Sulfate [address] BY MOUTH 325 mg DAILY GLORY Administration Fluticasone Propionate 2 spray 12/06/24 09:00 12/07/24 09:35 Fluticasone Propionate 0.05% Na Spr 16 Gm Btl (*Bkc) NASAL 2 spray DAILY GLORY Administration Furosemide 20 mg 12/07/24 17:00 Furosemide Inj 100 Mg/10 Ml Vial IV PUSH BID GLORY Gabapentin 300 mg 12/05/24 17:00 12/07/24 11:39 Gabapentin 300 Mg Capsule PO 300 mg TID GLORY Administration Hydroxyzine HCl 12.5 mg 12/05/24 12:27 12/06/24 22:04 Hydroxyzine Hcl 12.5 Mg Tablet PO 12.5 mg Q6H PRN Administration Agitation Hydroxyzine HCl 10 mg 12/05/24 14:42 12/07/24 09:35 Hydroxyzine Hcl 10 Mg Tablet PO 10 mg Q6H PRN Administration Anxiety Potassium Chloride 40 meq/ 520 mls @ 130 mls/hr 12/07/24 12:15 12/07/24 13:07 Sodium Chloride IVPB 12/07/24 16:14 130 mls/hr ONCE ONE Administration Ceftriaxone Sodium 2 gm in 100 mls @ 200 mls/hr 12/07/24 14:00 Rocephin 2 Gm/Ns 100 Ml IVPB Q12H GLORY Ampicillin Sodium 2 gm in 100 mls @ 200 mls/hr 12/07/24 21:00 Ampicillin 2 Gm/Ns 100 Ml IVPB Q8H [facility] Miscellaneous Information 1 each 12/07/24 13:22 Pharmacist Communication Order XX 12/07/24 13:23 ONCE ONE Ondansetron HCl 4 mg 12/05/24 01:09 Ondansetron Inj 4 Mg/2 Ml Vial IV PUSH Q4H PRN Nausea Polyethylene Glycol 17 gm 12/06/24 09:00 12/07/24 09:17 Polyethylene Glycol 3350 17 Gm Powd.Pack PO 17 gm DAILY [facility] Administration Potassium Chloride 40 meq 12/07/24 09:00 12/07/24 09:17 Potassium Chloride 20 Meq Packet (For Liquid) PO 40 meq DAILY GLORY Administration Sertraline HCl 100 mg 12/06/24 09:00 12/07/24 09:17 Sertraline Hcl 50 Mg Tablet PO 100 mg DAILY [facility] Administration Sodium Chloride 10 ml 12/05/24 22:00 12/07/24 13:08 Central Line Flush IV PUSH 10 ml Q8HR [facility] Administration Sodium Chloride 10 ml 12/05/24 14:31 Central Line Flush IV PUSH PRN PRN with TPN bag changes Sodium Chloride 20 ml 12/05/24 14:31 Central Line Flush IV PUSH PRN PRN after blood draws Warfarin Sodium 3 mg 12/07/24 17:00 Warfarin (*Pbkc) 3 Mg Tablet PO DAILY@1700 [facility] Radiology Results: ITS Impressions Chest CTA 12/04/24 05:22 Impression: No evidence of pulmonary embolus, aortic dissection, or aortic aneurysm. Small left pleural effusion and minimal right pleural effusion, with left lower lobe atelectasis and probable minimal pulmonary edema. Correlate clinically for left lower lobe pneumonia. 4.5 x 2.4 x 4.5 cm hematoma just superficial to the left pectoralis major muscle with small bubble of air within it. Correlate for recent trauma or procedure in this region. T10 compression fracture is new from prior exam. Large Schmorl's node at the superior plate of T11 and mild erosive change at the inferior endplate of T10 are also new. These are likely degenerative/related to fracture, however osteomyelitis/discitis is a potential alternative consideration. If this latter diagnosis is of clinical concern, then MRI with and without contrast recommended for further evaluation. Abdomen Ultrasound 12/06/24 07:41 IMPRESSION: 1: Status post cholecystectomy with expected prominence of the common bile duct. If there is concern for obstructing stone or mass in the duct, consider MRCP study. Chest X-Ray 12/06/24 09:26 Impression: 1: Cardiomegaly with mild interstitial edema. 2: Possible superimposed pneumonia left mid and lower thorax. 3: Small left pleural effusion. Labs Labs: Laboratory Results - last 24 hr 12/06/24 12/07/24 12/07/24 08:28 06:00 06:01 WBC 6.3 RBC 3.28 L Hgb 8.7 L Hct 29.5 L MCV 89.9 D MCH 26.5 MCHC 29.5 L RDW 17.9 H Plt Count 201 MPV 10.8 H Immature Gran % (Auto) 0.3 Neut % (Auto) 85.9 H Lymph % (Auto) 7.3 L Hooker % (Auto) 5.1 Eos % (Auto) 1.1 Baso % (Auto) 0.3 Lymph # (Auto) 0.46 L Hooker # (Auto) 0.3 Eos # (Auto) 0.1 Baso # (Auto) 0.0 Abs Immat Gran (auto) 0.02 Absolute Neuts (auto) 5.4 Absolute Nucleated RBC 0.000 Band Neutrophils % Not Reportable Nucleated RBC % 0.0 Platelet Estimate Adequate Hypochromasia 2+ Anisocytosis 1+ Schistocytes None seen PT INR Sodium 140 Potassium 3.5 Chloride 104 Carbon Dioxide 21 L Anion Gap 15 H BUN 10 Creatinine 1.18 H 1.02 H Estim Creat Clear Calc 37 43 Estimated GFR 46 L 54 L Glucose 92 Calcium 9.0 Total Bilirubin 0.5 AST 124 H ALT 131 H Alkaline Phosphatase 125 Total Protein 8.0 Albumin 4.0 12/07/24 12/07/24 06:08 13:04 WBC RBC Hgb Hct MCV MCH MCHC RDW Plt Count MPV Immature Gran % (Auto) Neut % (Auto) Lymph % (Auto) Hooker % (Auto) Eos % (Auto) Baso % (Auto) Lymph # (Auto) Hooker # (Auto) Eos # (Auto) Baso # (Auto) Abs Immat Gran (auto) Absolute Neuts (auto) Absolute Nucleated RBC Band Neutrophils % Nucleated RBC % Platelet Estimate Hypochromasia Anisocytosis Schistocytes PT 24.0 H INR 2.2 Sodium 138 Potassium 2.5 L* Chloride 97 L Carbon Dioxide 29 Anion Gap 12 BUN 11 Creatinine 1.00 Estim Creat Clear Calc 44 Estimated GFR 55 L Glucose 88 Calcium 8.5 Total Bilirubin AST ALT Alkaline Phosphatase Total Protein Albumin
[2024-12-07] MEDS: FUROSEMIDE INJ 100 MG/10 ML VIAL 20 MG IV PUSH (16:12)
[2024-12-07] MEDS: cefTRIAXone 2 GM/NS 100 ML 2 GM/100 ML BAG IVPB (16:12)
[2024-12-07] MEDS: WARFARIN (*PBKC) 3 MG TABLET PO (16:13)
[2024-12-08] VITALS (10 sets, daily range): BP systolic 93–121; BP diastolic 61–79; PULSE 94–121; RESP 18–22; TEMP 36.8–37.1; O2SAT 91–96
[2024-12-08] MEDS: cefTRIAXone 2 GM/NS 100 ML 2 GM/100 ML BAG IVPB ×2 (03:02→13:55)
[2024-12-08] MEDS: hydrOXYzine HCL 10 MG TABLET PO ×3 (03:02→21:14)
[2024-12-08] MEDS: AMPICILLIN 2 GM/NS 100 ML 2 GM/100 ML BAG IVPB ×3 (05:38→20:31)
[2024-12-08] MEDS: CENTRAL LINE FLUSH 10 ML IV PUSH ×3 (05:46→20:31)
[2024-12-08 06:16] LABS: Anion Gap 9 mmol/L (4-12); Blood Urea Nitrogen 13 mg/dL (7-17); Calcium 8.6 mg/dL (8.4-10.2); Carbon Dioxide 33 mmol/L (22-30); Chloride 99 mmol/L (98-107); Estimated CRCL calculation 45 ml/min; Estimated Glomerular Filt Rate 58; Glucose 96 mg/dL (65-110); Potassium 2.6 mmol/L (3.4-5.0); Sodium 141 mmol/L (137-145)
[2024-12-08 06:19] LABS: INR 1.9; Prothrombin Time 20.9 Seconds (11.1-14.7)
[2024-12-08] MEDS: POTASSIUM CHLORIDE INJ 40 MEQ in SODIUM CHLORIDE 0.9% IV 500 ML 130 MEQ IVPB ×2 (07:34→20:20)
[2024-12-08 08:08] LABS: NT Pro B Type Natriuretic Pept 5320 pg/mL (19.9-100)
[2024-12-08] MEDS: GABAPENTIN 300 MG CAPSULE PO ×3 (08:17→16:52)
[2024-12-08] MEDS: FUROSEMIDE INJ 100 MG/10 ML VIAL 20 MG IV PUSH (08:17)
[2024-12-08] MEDS: FAMOTIDINE 20 MG TABLET 40 MG PO (08:17)
[2024-12-08] MEDS: SERTRALINE HCL 50 MG TABLET 100 MG PO (08:17)
[2024-12-08] MEDS: FERROUS SULFATE 325 MG TABLET DR BY MOUTH (08:17)
[2024-12-08] MEDS: FLUTICASONE PROPIONATE 0.05% NA SPR 16 GM BTL (*BKC) 2 SPRAY NASAL (08:18)
--- NOTE | 2024-12-08 12:50 | P.PNPL_ITS ---
Progress Note: A&P Assessment and Plan (1) Requires supplemental oxygen: Code(s): Z99.81 - Dependence on supplemental oxygen Status: Acute Assessment and Plan: She is using between 2 and 3 L currently, has underlying COPD, has pleural effusions and left basilar atelectasis due to decompensated cardiac function. at home she was on no oxygen at rest, no oxygen with activity and 2 L when she sleeps. 12/08/2024: Patient's oxygenation is improving with diuresis. Agree with aggressive diuresis as tolerated by cardiac and renal systems per hospitalist team. Currently she is on 20 IV Lasix b.i.d. and would consider increasing to 40 mg IV b.i.d.. Follow-up at previously scheduled pulmonary appointment 05/04/2025. Discussed with Dr. Jean, will sign off, call with questions. (2) Emphysema of lung: Qualifiers: Emphysema type: unspecified Qualified Code(s): J43.9 - Emphysema, unspecified Code(s): J43.9 - Emphysema, unspecified Status: Acute Assessment and Plan: Known emphysema, has had slight increase in cough with white sputum over the last 6-7 days, no fever, no sore throat, no infectious symptoms, decompensation of her breathing is due to decompensated diastolic heart failure, now with pleural effusions and left basilar atelectasis. She could not afford Breztri 2 puffs b.i.d. and has been maintained on albuterol p.r.n. shortness of breath which she uses maybe 1 time every 1-2 months. 12/08/24: Prior to this hospitalization patient had minimal respiratory symptoms on p.r.n. albuterol. Plan: Continue p.r.n. albuterol. (3) Former smoker: Code(s): Z87.891 - Personal history of nicotine dependence Status: Acute Assessment and Plan: Quit November 27, 2016 (4) Osteomyelitis of thoracic vertebra: Code(s): M46.24 - Osteomyelitis of vertebra, thoracic region Status: Acute Assessment and Plan: 12/07/24 plan: She does not have pneumonia. She has decompensated CHF which started getting worse at the end of her admission at [place], worse during the day at [facility], and worse here until she started getting all her diuretics again. She has re-started ampicillin 2 g Q8 - renal dose- and ceftriaxone 2 g IV Q 12 for enterococcal bacteremia with vegetations on pacing wire, explantation of her left pacemaker on November 25. 12/08/2024: Patient tells me she needs to complete 6 weeks of antibiotics through the end of December. Patient awaiting transfer to [facility]. Subjective Date/time seen: 12/08/24 12:50 Interval history: Patient was seen December 07, 2024 at 11:50 am Room 322 NEW Consult: Kendal Junior is a 69-yo female admitted December 04 with shortness of breath and room air saturation 85% within 1 day after arriving at [facility] after a stay at [place] with Enterococcus bacteremia due to infected pacemaker with removal November 25. She has a right upper arm PICC, was receiving ampicillin 2 g IV q.6 hours and Rocephin 2 g q.12 hours planned through February 13. She arrived at [facility] on December 02; this is from her documentation on her cellphone. On December 04 had decreased saturation and shortness of breath. She was admitted to [place]; CTA on December 04 showed no pulmonary embolus, small left pleural effusion and minimal right pleural effusion, and left lower lobe atelectasis with pulmonary edema. Her admission white blood cell count on December 04 was 5.7. She had anemia H&H 7.6 he hematocrit 26.9%. Protime 28.9. PTT 40.6. She had a venous blood gas that was not remarkable. On December 06 she had an arterial blood gas on 4 L showing pH 7.43, pCO2 33.6, PO2 63.5, HC03 21.1 and saturation 94.2%. She is currently on cefepime for concerns for a hospital acquired pneumonia as she was recently in [place] for an extended stay for explantation of her pacemaker and she had Enterococcus bacteremia. She had a dose of vancomycin on arrival but her MRSA swab was negative so this was discontinued. Backstory: Several weeks ago, The patient developed severe thoracic back pain, I wanted to , was seen in [place] ER, treated and sent out. She eventually saw pain management [facility], has been treated by Dr Cabrera in the past for back pain and had a kyphoplasty; this time, he treated her pain, referred her to neurosurgeon at [facility]. The neurosurgeon told her to immediately go to emergency department at [place] which she did November 17. 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 She started to feel more short of breath towards the end of her stay, was sent to rehab on December 02, worsened within 24 hours with increased swelling, inability to lie flat, gasping for breath, with decrease in her saturation 85% on room air. She came to [place] 12/03; see the CTA below. She is having a scant cough with small amounts of white sputum which she says may have started at the end of her stay at [place]. She has not had fever, sore throat, sinus congestion, does not feel like pneumonia but does feel similar to previous episodes of heart failure. She is not on oxygen at baseline. She has an elevated Left hemidiaphragm which is long standing and COPD Gold 2 Group B, and pulmonary nodules, followed in our clinic, last ov was 11/04/[address] Santo Ho, managed with Breztri 2 puffs b.i.d.. and albuterol about once a week. PMH: Chronic atrial fibrillation, Biotronik biventricular pacemaker initial placement 2015, history of mitral valve repair, aortic valve replacement/ aortic valve grafting in 2021, previous ECMO in 2021 due to mediastinitis, aortic/ventricular injury requiring repair. She tells me that when he 13 years ago, she developed chest pain after the , went to the emergency department had broken heart syndrome, who had recovery from that with subsequent cardiac issues. Recent T10/T11 vertebral osteomyelitis, bacterial endocarditis, infected pacemaker hardware status post removal on 11/25/2024 at [place] with enterococcus bacteremia, sent to [facility] 2 g q.6 hours and Rocephin to 2 g q.12 hours end date February 13, administered through a right upper arm PICC line. She had heparin-induced thrombocytopenia, 12/08/24: Patient tells me she can has continued shortness of breath and dyspnea on exertion. This is improved since admission. Currently she is on 3 L nasal cannula with saturation 97%. I decreased her to 2 L nasal cannula her saturations were 93%. Her creatinine is 0.96. Her BNP is 5320. Yesterday she was positive 1.3 L in cumulative since admission she is -1.01 L. DATA * 12/05/24 sputum Gram stain completed 12/07 = many white blood cells, few epithelial cells, few Gram-positive cocci in clusters. * 12/06/24, CXR Cardiomegaly with mild interstitial edema. 2: Possible superimposed pneumonia left mid and lower thorax. 3: Small left pleural effusion. * 12/04/24 CTA ; Impression: No evidence of pulmonary embolus, aortic dissection, or aortic aneurysm. Small left pleural effusion and minimal right pleural effusion, with left lower lobe atelectasis and probable minimal pulmonary edema. Correlate clinically for left lower lobe pneumonia. 4.5 x 2.4 x 4.5 cm hematoma just superficial to the left pectoralis major muscle with small bubble of air within it. Correlate for recent trauma or procedure in this region. T10 compression fracture is new from prior exam. Large Schmorl's node at the superior plate of T11 and mild erosive change at the inferior endplate of T10 are also new. These are likely degenerative/related to fracture, however osteomyelitis/discitis is a potential alternative consideration. If this latter diagnosis is of clinical concern, then MRI with and without contrast recommended for further evaluation. Review of Systems Constitutional: Constitutional: Reports no additional constitutional complaints Eyes: Eyes: Reports no additional eye complaints ENT: Reports system reviewed and no additional complaints, except as documented Cardiovascular: Cardiovascular: Reports no additional cardiovascular complaints Respiratory: Respiratory: Reports no additional respiratory complaints Gastrointestinal: Gastrointestinal: Reports no additional gastrointestinal complaints Musculoskeletal: Musculoskeletal: Reports no additional musculoskeletal complaints Neurologic: Reports system reviewed and no additional complaints, except as documented Psychiatric: Psychiatric: Reports no additional psychiatric complaints Endocrine: Endocrine: Reports no additional endocrine complaints Hematologic/Lymphatic: Hematologic/Lymphatic: Reports no additional hematologic/lymphatic complaints Allergic/Immunologic: Allergic/Immunologic: Reports no additional allergic/immunologic complaints Exam Const: General: cooperative, healthy appearing and comfortable Orientation/consciousness: oriented to person, oriented to place and oriented to time HENMT: Head: normal to inspection Ears: hearing grossly normal bilaterally Eyes: General: appearance normal, both eyes and all related structures Neck: Neck: normal visual inspection Chest: Chest palpation & inspection: normal inspection of the chest Resp: Effort & Inspection: normal respiratory effort and able to speak in complete sentences Auscultation: crackles, no rales, no rhonchi, no wheezes and lung sounds not diminished Cardio: Jugular venous distension: no JVD GI: Inspection: normal to inspection GI Palp: No abdominal tenderness Skin: General skin exam: normal color Neuro: General: oriented to person, oriented to place and oriented to time Extrem: General: normal to inspection Other: improved edema Psych: Appearance: grossly normal Objective Data Vital Signs Vital Signs: Vital Signs - 24 hr 12/07/24 14:00 12/07/24 16:00 12/07/24 20:00 Temperature 36.6 C Pulse Rate 98 98 Respiratory Rate 16 Blood Pressure 122/79 Pulse Oximetry 94 96 Oxygen Delivery Nasal Cannula Oxygen Flow Rate 3 12/07/24 20:00 12/07/24 22:00 12/08/24 00:00 Temperature 37.0 C Pulse Rate 96 95 94 Respiratory Rate 18 Blood Pressure 123/84 Pulse Oximetry 94 Oxygen Delivery Oxygen Flow Rate 12/08/24 04:00 12/08/24 06:00 12/08/24 08:00 Temperature 37.1 C Pulse Rate 96 116 H Respiratory Rate 18 Blood Pressure 121/79 Pulse Oximetry 91 92 Oxygen Delivery Nasal Cannula Oxygen Flow Rate 3 Intake/Output Intake/Output: Intake & Output 12/05/24 12/06/24 12/07/24 12/08/24 23:59 23:59 23:59 23:59 Intake Total 990 1830 2320 580 Output Total 5100 1000 700 Balance 990 -3270 1320 -120 Meds/Results Medications: Active Medications Generic Name Dose Route Start Last Admin Trade Name Freq PRN Reason Stop Dose Admin Acetaminophen 650 mg 12/05/24 01:09 12/05/24 17:11 Acetaminophen 325 Mg Tablet PO 650 mg Q4H PRN Administration Mild Pain (1-3) or Fever Albuterol 1 puff 12/05/24 15:27 12/06/24 01:43 Albuterol Sulfate (*Sp) Aerosol 1 Puff INHALATION 1 puff Q4H PRN Administration Shortness Of Breath Famotidine 40 mg 12/06/24 09:00 12/08/24 08:17 Famotidine 20 Mg Tablet PO 40 mg DAILY GLORY Administration Ferrous Sulfate 325 mg 12/06/24 09:00 12/08/24 08:17 Ferrous Sulfate [address] BY MOUTH 325 mg DAILY GLORY Administration Fluticasone Propionate 2 spray 12/06/24 09:00 12/08/24 08:18 Fluticasone Propionate 0.05% Na Spr 16 Gm Btl (*Bkc) NASAL 2 spray DAILY GLORY Administration Furosemide 20 mg 12/07/24 17:00 12/08/24 08:17 Furosemide Inj 100 Mg/10 Ml Vial IV PUSH 20 mg BID GLORY Administration Gabapentin 300 mg 12/05/24 17:00 12/08/24 12:02 Gabapentin 300 Mg Capsule PO 300 mg TID GLORY Administration Hydroxyzine HCl 12.5 mg 12/05/24 12:27 12/06/24 22:04 Hydroxyzine Hcl 12.5 Mg Tablet PO 12.5 mg Q6H PRN Administration Agitation Hydroxyzine HCl 10 mg 12/05/24 14:42 12/08/24 08:24 Hydroxyzine Hcl 10 Mg Tablet PO 10 mg Q6H PRN Administration Anxiety Ceftriaxone Sodium 2 gm in 100 mls @ 200 mls/hr 12/07/24 14:00 12/08/24 03:02 Rocephin 2 Gm/Ns 100 Ml IVPB 200 mls/hr Q12H GLORY Administration Ampicillin Sodium 2 gm in 100 mls @ 200 mls/hr 12/07/24 21:00 12/08/24 12:02 Ampicillin 2 Gm/Ns 100 Ml IVPB 12/23/24 22:00 200 mls/hr Q8H GLORY Administration Ondansetron HCl 4 mg 12/05/24 01:09 Ondansetron Inj 4 Mg/2 Ml Vial IV PUSH Q4H PRN Nausea Polyethylene Glycol 17 gm 12/06/24 09:00 12/08/24 08:18 Polyethylene Glycol 3350 17 Gm Powd.Pack PO Not Given DAILY GLORY Potassium Chloride 40 meq 12/08/24 09:00 12/08/24 11:57 Potassium Chloride 20 Meq Packet (For Liquid) PO Not Given TID GLORY Sertraline HCl 100 mg 12/06/24 09:00 12/08/24 08:17 Sertraline Hcl 50 Mg Tablet PO 100 mg DAILY GLORY Administration Sodium Chloride 10 ml 12/05/24 22:00 12/08/24 05:46 Central Line Flush IV PUSH 10 ml Q8HR GLORY Administration Sodium Chloride 10 ml 12/05/24 14:31 Central Line Flush IV PUSH PRN PRN with TPN bag changes Sodium Chloride 20 ml 12/05/24 14:31 Central Line Flush IV PUSH PRN PRN after blood draws Warfarin Sodium 3 mg 12/07/24 17:00 12/07/24 16:13 Warfarin (*Pbkc) 3 Mg Tablet PO 3 mg DAILY@1700 GLORY Administration Radiology Results: ITS Impressions Chest CTA 12/04/24 05:22 Impression: No evidence of pulmonary embolus, aortic dissection, or aortic aneurysm. Small left pleural effusion and minimal right pleural effusion, with left lower lobe atelectasis and probable minimal pulmonary edema. Correlate clinically for left lower lobe pneumonia. 4.5 x 2.4 x 4.5 cm hematoma just superficial to the left pectoralis major muscle with small bubble of air within it. Correlate for recent trauma or procedure in this region. T10 compression fracture is new from prior exam. Large Schmorl's node at the superior plate of T11 and mild erosive change at the inferior endplate of T10 are also new. These are likely degenerative/related to fracture, however osteomyelitis/discitis is a potential alternative consideration. If this latter diagnosis is of clinical concern, then MRI with and without contrast recommended for further evaluation. Abdomen Ultrasound 12/06/24 07:41 IMPRESSION: 1: Status post cholecystectomy with expected prominence of the common bile duct. If there is concern for obstructing stone or mass in the duct, consider MRCP study. Chest X-Ray 12/06/24 09:26 Impression: 1: Cardiomegaly with mild interstitial edema. 2: Possible superimposed pneumonia left mid and lower thorax. 3: Small left pleural effusion. Labs Labs: Laboratory Results - last 24 hr 12/05/24 12/07/24 12/08/24 10:17 13:04 05:52 PT 24.0 H INR 2.2 ABG PO2/FiO2 Ratio Not Reportable ABG O2 Saturation Not Reportable ABG O2 Content Not Reportable A-a Gradient Not Reportable Sodium Potassium Chloride Carbon Dioxide Anion Gap BUN Creatinine Estim Creat Clear Calc Estimated GFR Glucose Calcium NT-Pro-B Natriuret Pep 5320 H 12/08/24 05:53 PT 20.9 H INR 1.9 ABG PO2/FiO2 Ratio ABG O2 Saturation ABG O2 Content A-a Gradient Sodium 141 Potassium 2.6 L* Chloride 99 Carbon Dioxide 33 H Anion Gap 9 BUN 13 Creatinine 0.96 Estim Creat Clear Calc 45 Estimated GFR 58 L Glucose 96 Calcium 8.6 NT-Pro-B Natriuret Pep
--- NOTE | 2024-12-08 15:00 | P.PNIM_ITS ---
Progress Note: A&P Assessment and Plan (1) Hospital acquired PNA: Code(s): J18.9 - Pneumonia, unspecified organism; Y95 - Nosocomial condition Status: Acute Assessment and Plan: CXR: Left basilar atelectasis versus pneumonia with possible Effusion - Risk Factors: none - Complicating Factors: none - started on HAP: Cefepime & Vanc (discontinued due to (-) MRSA) - change to iv ampicilin and iv rocephin (2) Acute and chronic respiratory failure with hypoxia: Code(s): J96.21 - Acute and chronic respiratory failure with hypoxia Status: Acute Assessment and Plan: * Symptoms: Shortness of breath * Chest XR: Left basilar atelectasis versus pneumonia with possible Effusion * dc breathing treatments (3) Transaminitis: Code(s): R74.01 - Elevation of levels of liver transaminase levels Status: Acute Assessment and Plan: * Upon admission:AST 239, ALT 137 * Repeat: 183, 144 respectively * Physical exam benign, no abdominal pain * RUQ US reveiwed with pt (4) S/P AVR (aortic valve replacement): Code(s): Z95.2 - Presence of prosthetic heart valve Status: Acute (5) H/O mitral valve repair: Code(s): Z98.890 - Other specified postprocedural states Status: Acute (6) H/O mechanical aortic valve replacement: Code(s): Z95.2 - Presence of prosthetic heart valve Status: Acute (7) Cardiomyopathy: Code(s): I42.9 - Cardiomyopathy, unspecified Status: Acute Assessment and Plan: pt switched to iv lasix increase dose more diuresis D/w pulmology MD (8) HTN (hypertension): Code(s): I10 - Essential (primary) hypertension Status: Acute Assessment and Plan: watch blood pressures chronic and stable (9) Anemia: Code(s): D64.9 - Anemia, unspecified Status: Acute Assessment and Plan: order iv venofer today for hb of 7 hb improved to 8.7 continue ferrous sulphate Plan severe hypokalaemia pt had potassium rider continue potassium supplements dvt prop pt is on coumadin monitor INRS Subjective Date/time seen: 12/08/24 15:00 Interval history: Ms. Junior is a 69-year-old female with history of AFib status post pacemaker, CKD, recent T10/T11 vertebral osteomyelitis, bacterial endocarditis, infected pacemaker hardware status post removal on 11/25/2024 at [place], heparin-induced thrombocytopenia, aortic valve replacement/aortic grafting replacement in 2021, previous ECMO in 2021 due to mediastinum night is and aortic/ventricular injury requiring repair. She was recently hospitalized at [place] for bacteremia with Enterococcus and then discharged on 6 weeks of antibiotics by a right-sided PICC line which was scheduled to be completed in 01/2025. 12/05/2024 Patient sitting comfortably in bed at time of exam. Vital signs appear to be stable with a pulse rate of 97 and O2 saturation of 94% on 2 L NC, however patient states shortness of breath has improved when compared to yesterday. Pending transfer to [facility] at this time. 12/06/2024 Pt needing 3 liters of oxygen today cxr and abg ordered and reviewed Order iv lasix for pt for pulmonary edema Order venofer for low hb Pt awaiting transfer to [facility] recent pacemaker removal Pt had all her cardiac procedures in [place] 12/07/2024 Pts coumadin restarted Pt restarted on her ampicillin Pt having low potassium krider ordered for pt Pt still sob pt started on iv lasix D/w pt and son by the bedside Awaiting transfer to [facility] D/w Dr Reyes 12/08/2024 D/w pulmology ok to continue present care with iv abx and iv lasix pt still sob increase diuresis today pt had potassium rider continue oral potassium meds pt awaiting [place] transfer bed INR subtherapeutic continue coumadin dosing Review of Systems Review of Systems: Ongoing SOB Exam Const: General: comfortable and no acute distress HENMT: Mouth: Yes moist mucous membranes Eyes: Pupils: Equal, round and reactive pupils present Neck: Neck: supple Resp: Effort & Inspection: normal respiratory effort Auscultation: rhonchi Cardio: Rate: regular rate Rhythm: regular rhythm Neuro: Cranial nerves: Yes Equal, round and reactive pupils present Extrem: General: no edema Objective Data Vital Signs Vital Signs: Vital Signs - 24 hr 12/07/24 16:00 12/07/24 20:00 12/07/24 20:00 Temperature Pulse Rate 98 96 Respiratory Rate Blood Pressure Pulse Oximetry 96 Oxygen Delivery Nasal Cannula Oxygen Flow Rate 3 12/07/24 22:00 12/08/24 00:00 12/08/24 04:00 Temperature 37.0 C Pulse Rate 95 94 96 Respiratory Rate 18 Blood Pressure 123/84 Pulse Oximetry 94 Oxygen Delivery Oxygen Flow Rate 12/08/24 06:00 12/08/24 08:00 12/08/24 13:54 Temperature 37.1 C 36.9 C Pulse Rate 116 H 119 H Respiratory Rate 18 22 H Blood Pressure 121/79 93/66 L Pulse Oximetry 91 92 96 Oxygen Delivery Nasal Cannula Oxygen Flow Rate 3 Intake/Output Intake/Output: Intake & Output 12/05/24 12/06/24 12/07/24 12/08/24 23:59 23:59 23:59 23:59 Intake Total 990 1830 2320 680 Output Total 5100 1000 700 Balance 990 -3270 1320 -20 Meds/Results Medications: Active Medications Generic Name Dose Route Start Last Admin Trade Name Freq PRN Reason Stop Dose Admin Acetaminophen 650 mg 12/05/24 01:09 12/05/24 17:11 Acetaminophen 325 Mg Tablet PO 650 mg Q4H PRN Administration Mild Pain (1-3) or Fever Albuterol 1 puff 12/05/24 15:27 12/06/24 01:43 Albuterol Sulfate (*Sp) Aerosol 1 Puff INHALATION 1 puff Q4H PRN Administration Shortness Of Breath Famotidine 40 mg 12/06/24 09:00 12/08/24 08:17 Famotidine 20 Mg Tablet PO 40 mg DAILY GLORY Administration Ferrous Sulfate 325 mg 12/06/24 09:00 12/08/24 08:17 Ferrous Sulfate [address] BY MOUTH 325 mg DAILY GLORY Administration Fluticasone Propionate 2 spray 12/06/24 09:00 12/08/24 08:18 Fluticasone Propionate 0.05% Na Spr 16 Gm Btl (*Bkc) NASAL 2 spray DAILY GLORY Administration Furosemide 40 mg 12/08/24 17:00 Furosemide Inj 100 Mg/10 Ml Vial IV PUSH BID GLORY Gabapentin 300 mg 12/05/24 17:00 12/08/24 12:02 Gabapentin 300 Mg Capsule PO 300 mg TID GLORY Administration Hydroxyzine HCl 12.5 mg 12/05/24 12:27 12/06/24 22:04 Hydroxyzine Hcl 12.5 Mg Tablet PO 12.5 mg Q6H PRN Administration Agitation Hydroxyzine HCl 10 mg 12/05/24 14:42 12/08/24 08:24 Hydroxyzine Hcl 10 Mg Tablet PO 10 mg Q6H PRN Administration Anxiety Ceftriaxone Sodium 2 gm in 100 mls @ 200 mls/hr 12/07/24 14:00 12/08/24 13:55 Rocephin 2 Gm/Ns 100 Ml IVPB 200 mls/hr Q12H GLORY Administration Ampicillin Sodium 2 gm in 100 mls @ 200 mls/hr 12/07/24 21:00 12/08/24 12:02 Ampicillin 2 Gm/Ns 100 Ml IVPB 12/23/24 22:00 200 mls/hr Q8H GLORY Administration Ondansetron HCl 4 mg 12/05/24 01:09 Ondansetron Inj 4 Mg/2 Ml Vial IV PUSH Q4H PRN Nausea Polyethylene Glycol 17 gm 12/06/24 09:00 12/08/24 08:18 Polyethylene Glycol 3350 17 Gm Powd.Pack PO Not Given DAILY GLORY Potassium Chloride 40 meq 12/08/24 17:00 Potassium Chloride 20 Meq Er Tablet PO TID GLORY Sertraline HCl 100 mg 12/06/24 09:00 12/08/24 08:17 Sertraline Hcl 50 Mg Tablet PO 100 mg DAILY GLORY Administration Sodium Chloride 10 ml 12/05/24 22:00 12/08/24 13:55 Central Line Flush IV PUSH 10 ml Q8HR GLORY Administration Sodium Chloride 10 ml 12/05/24 14:31 Central Line Flush IV PUSH PRN PRN with TPN bag changes Sodium Chloride 20 ml 12/05/24 14:31 Central Line Flush IV PUSH PRN PRN after blood draws Warfarin Sodium 3 mg 12/07/24 17:00 12/07/24 16:13 Warfarin (*Pbkc) 3 Mg Tablet PO 3 mg DAILY@1700 GLORY Administration Radiology Results: ITS Impressions Chest CTA 12/04/24 05:22 Impression: No evidence of pulmonary embolus, aortic dissection, or aortic aneurysm. Small left pleural effusion and minimal right pleural effusion, with left lower lobe atelectasis and probable minimal pulmonary edema. Correlate clinically for left lower lobe pneumonia. 4.5 x 2.4 x 4.5 cm hematoma just superficial to the left pectoralis major muscle with small bubble of air within it. Correlate for recent trauma or procedure in this region. T10 compression fracture is new from prior exam. Large Schmorl's node at the superior plate of T11 and mild erosive change at the inferior endplate of T10 are also new. These are likely degenerative/related to fracture, however osteomyelitis/discitis is a potential alternative consideration. If this latter diagnosis is of clinical concern, then MRI with and without contrast recommended for further evaluation. Abdomen Ultrasound 12/06/24 07:41 IMPRESSION: 1: Status post cholecystectomy with expected prominence of the common bile duct. If there is concern for obstructing stone or mass in the duct, consider MRCP study. Chest X-Ray 12/06/24 09:26 Impression: 1: Cardiomegaly with mild interstitial edema. 2: Possible superimposed pneumonia left mid and lower thorax. 3: Small left pleural effusion. Labs Labs: Laboratory Results - last 24 hr 12/05/24 12/08/24 12/08/24 10:17 05:52 05:53 PT 20.9 H INR 1.9 ABG PO2/FiO2 Ratio Not Reportable ABG O2 Saturation Not Reportable ABG O2 Content Not Reportable A-a Gradient Not Reportable Sodium 141 Potassium 2.6 L* Chloride 99 Carbon Dioxide 33 H Anion Gap 9 BUN 13 Creatinine 0.96 Estim Creat Clear Calc 45 Estimated GFR 58 L Glucose 96 Calcium 8.6 NT-Pro-B Natriuret Pep 5320 H
[2024-12-08] MEDS: POTASSIUM CHLORIDE 20 MEQ ER TABLET 40 MEQ PO (16:53)
[2024-12-08] MEDS: WARFARIN (*PBKC) 5 MG TABLET PO (16:57)
[2024-12-08] MEDS: FUROSEMIDE INJ 100 MG/10 ML VIAL 40 MG IV PUSH (16:58)
[2024-12-08 17:50] LABS: INR 1.7; Prothrombin Time 20.2 Seconds (11.1-14.7)
[2024-12-08 18:32] LABS: Anion Gap 9 mmol/L (4-12); Blood Urea Nitrogen 15 mg/dL (7-17); Calcium 8.6 mg/dL (8.4-10.2); Carbon Dioxide 30 mmol/L (22-30); Chloride 100 mmol/L (98-107); Estimated CRCL calculation 36 ml/min; Estimated Glomerular Filt Rate 52; Glucose 107 mg/dL (65-110); Potassium 2.8 mmol/L (3.4-5.0); Sodium 139 mmol/L (137-145)
[2024-12-09] VITALS (10 sets, daily range): BP systolic 105–118; BP diastolic 61–72; PULSE 88–102; RESP 18–22; TEMP 36.3–36.9; O2SAT 95–97
[2024-12-09] MEDS: cefTRIAXone 2 GM/NS 100 ML 2 GM/100 ML BAG IVPB ×2 (00:55→13:02)
[2024-12-09] MEDS: CENTRAL LINE FLUSH 10 ML IV PUSH ×3 (04:33→20:45)
[2024-12-09] MEDS: AMPICILLIN 2 GM/NS 100 ML 2 GM/100 ML BAG IVPB ×3 (04:33→20:45)
[2024-12-09 04:57] LABS: Basophils Absolute Auto 0.1 K/mm3 (0.0-0.1); Basophils Percent Auto 0.7 % (0.2-1.2); Eosinophils Absolute Auto 1.3 K/mm3 (0-0.3); Eosinophils Percent Auto 15.5 % (0-4.4); Hematocrit 31.4 % (37.0-47.0); Hemoglobin 9.1 g/dL (12.0-15.0); Immature Granulocyte Absolute 0.04 K/mm3 (0.00-0.031); Immature Granulocyte Percent A 0.5 % (0-0.5); Lymphocytes Absolute Auto 0.83 K/mm3 (0.9-3.2); Lymphocytes Percent Auto 10.2 % (18.3-44.2); Mean Corpuscular Hemoglobin 26.5 pg (26-34); Mean Corpuscular Volume 91.3 fl (80-100); Mean Platelet Volume 11.1 fl (7.4-10.4); Monocytes Absolute Auto 0.4 K/mm3 (0.1-0.6); Monocytes Percent Auto 4.6 % (2.6-8.5); Neutrophils Absolute Auto 5.6 K/mm3 (1.3-6.7); Neutrophils Percent Auto 68.5 % (45.5-73.1); Platelet Count Result 200 k/mm3 (150-375); Red Blood Count 3.44 M/mm3 (4.2-5.4); Red Cell Distribution Width 18.1 % (11.5-14.5); White Blood Count 8.1 K/mm3 (4.5-10.0)
[2024-12-09 05:11] LABS: Anion Gap 9 mmol/L (4-12); Blood Urea Nitrogen 14 mg/dL (7-17); Calcium 8.5 mg/dL (8.4-10.2); Carbon Dioxide 30 mmol/L (22-30); Chloride 104 mmol/L (98-107); Estimated CRCL calculation 35 ml/min; Estimated Glomerular Filt Rate 50; Glucose 94 mg/dL (65-110); Magnesium 1.8 mg/dL (1.6-2.3); Potassium 3.4 mmol/L (3.4-5.0); Sodium 143 mmol/L (137-145)
[2024-12-09 05:23] LABS: INR 1.7
[2024-12-09 05:28] LABS: Anisocytosis 1+; Hypochromasia 1+; Ovalocytes 1+; Platelet Estimate Adequate (Adequate); Schistocytes Rare
[2024-12-09] MEDS: POTASSIUM CHLORIDE 20 MEQ ER TABLET 40 MEQ PO ×3 (09:24→17:23)
[2024-12-09] MEDS: polyethylene glycoL 3350 17 GM POWD.PACK PO (09:24)
[2024-12-09] MEDS: FUROSEMIDE INJ 40 MG/4 ML VIAL IV PUSH ×2 (09:24→17:23)
[2024-12-09] MEDS: FERROUS SULFATE 325 MG TABLET DR BY MOUTH (09:25)
[2024-12-09] MEDS: GABAPENTIN 300 MG CAPSULE PO ×3 (09:25→17:23)
[2024-12-09] MEDS: FAMOTIDINE 20 MG TABLET 40 MG PO (09:25)
[2024-12-09] MEDS: SERTRALINE HCL 50 MG TABLET 100 MG PO (09:25)
[2024-12-09] MEDS: FLUTICASONE PROPIONATE 0.05% NA SPR 16 GM BTL (*BKC) 2 SPRAY NASAL (09:35)
--- NOTE | 2024-12-09 10:43 | P.CDI_ITS ---
CDI Query Clarification Request 1) Please clarify if pneumonia has been ruled in or ruled out. Pulmonology documentation: Plan plan: She does not have pneumonia. She has decompensated CHF which started getting worse at the end of her admission at [place], worse during the day at [facility], and worse here until she started getting all her diuretics again. She has re-started ampicillin 2 g Q8 - renal dose- and ceftriaxone 2 g IV Q 12 for enterococcal bacteremia with vegetations on pacing wire, explantation of her left pacemaker on November 25. We will increased diuretics for CHF, replete K+, continue ampicillin and ceftriaxone; stop Cefepime; obtain recent d/c summary from [place]. Wean O2 as tolerated. This note is created during computer 'downtime' with issues including slow response time, inability of computer to add diagnoses, slowness navigating the whole EMR system. The patient was seen, evaluated, and proper orders written with verbal communication with the pharmacist by telephone, and I spoke with Dr Jean. This patient received appropriate care despite the barriers from electronic end. hospitalist documented: Assessment and Plan (1) Hospital acquired PNA: Code(s): J18.9 - Pneumonia, unspecified organism; Y95 - Nosocomial condition Status: Acute Assessment and Plan: CXR: Left basilar atelectasis versus pneumonia with possible Effusion - Risk Factors: none - Complicating Factors: none - started on HAP: Cefepime & Vanc (discontinued due to (-) MRSA) - change to iv ampicilin and iv rocephin <Agnie Schmitt RN - Last Filed: 12/09/24 10:48> Clarified Diagnosis Clarified Diagnosis: patient with thoracic spine osteomyelitis had been in and out of the hospital upon arrival patient chest x-ray was concerning for left basilar airspace consolidation a represent atelectasis and/or superimposed pneumonia. patient was discharged from [facility] with IV abx for osteomyelitis and same antibiotics were continued for her pneumonia. <Kiara Smith MD - Last Filed: 12/23/24 12:09>
--- NOTE | 2024-12-09 16:38 | P.PNIM_ITS ---
Progress Note: A&P Assessment and Plan (1) Hospital acquired PNA: Code(s): J18.9 - Pneumonia, unspecified organism; Y95 - Nosocomial condition Status: Acute Assessment and Plan: CXR: Left basilar atelectasis versus pneumonia with possible Effusion - Risk Factors: none - Complicating Factors: none - started on HAP: Cefepime & Vanc (discontinued due to (-) MRSA) - change to iv ampicilin and iv rocephin (2) Acute and chronic respiratory failure with hypoxia: Code(s): J96.21 - Acute and chronic respiratory failure with hypoxia Status: Acute Assessment and Plan: * Symptoms: Shortness of breath * Chest XR: Left basilar atelectasis versus pneumonia with possible Effusion * dc breathing treatments (3) Transaminitis: Code(s): R74.01 - Elevation of levels of liver transaminase levels Status: Acute Assessment and Plan: * Upon admission:AST 239, ALT 137 * Repeat: 183, 144 respectively * Physical exam benign, no abdominal pain * RUQ US reveiwed with pt (4) S/P AVR (aortic valve replacement): Code(s): Z95.2 - Presence of prosthetic heart valve Status: Acute (5) H/O mitral valve repair: Code(s): Z98.890 - Other specified postprocedural states Status: Acute (6) H/O mechanical aortic valve replacement: Code(s): Z95.2 - Presence of prosthetic heart valve Status: Acute (7) Cardiomyopathy: Code(s): I42.9 - Cardiomyopathy, unspecified Status: Acute Assessment and Plan: pt switched to iv lasix increase dose more diuresis D/w pulmology MD (8) HTN (hypertension): Code(s): I10 - Essential (primary) hypertension Status: Acute Assessment and Plan: watch blood pressures chronic and stable (9) Anemia: Code(s): D64.9 - Anemia, unspecified Status: Acute Assessment and Plan: order iv venofer today for hb of 7 hb improved to 8.7 continue ferrous sulphate Plan patient with chronic medical conditions and in and out of hospsital had developed aquired PNA and with underling COPD, patient is being treated with ceftriaxon and Ampicillin, patient is seen by her program checker and clinical symptoms are improving, patient has mechanical valve replaced in 2021 taking warfarin and her INR today is 1.7, goal is 2-3 INR, stats they do not bridge her. severe hypokalaemia pt had potassium rider continue potassium supplements dvt prop pt is on coumadin monitor INRS Subjective Date/time seen: 12/09/24 16:38 Interval history: Ms. Junior is a 69-year-old female with history of AFib status post pacemaker, CKD, recent T10/T11 vertebral osteomyelitis, bacterial endocarditis, infected pacemaker hardware status post removal on 11/25/2024 at [place], heparin-induced thrombocytopenia, aortic valve replacement/aortic grafting replacement in 2021, previous ECMO in 2021 due to mediastinum night is and aortic/ventricular injury requiring repair. She was recently hospitalized at [place] for bacteremia with Enterococcus and then discharged on 6 weeks of antibiotics by a right-sided PICC line which was scheduled to be completed in 01/2025. 12/05/2024 Patient sitting comfortably in bed at time of exam. Vital signs appear to be stable with a pulse rate of 97 and O2 saturation of 94% on 2 L NC, however patient states shortness of breath has improved when compared to yesterday. Pending transfer to [facility] at this time. 12/06/2024 Pt needing 3 liters of oxygen today cxr and abg ordered and reviewed Order iv lasix for pt for pulmonary edema Order venofer for low hb Pt awaiting transfer to [facility] recent pacemaker removal Pt had all her cardiac procedures in [place] 12/07/2024 Pts coumadin restarted Pt restarted on her ampicillin Pt having low potassium krider ordered for pt Pt still sob pt started on iv lasix D/w pt and son by the bedside Awaiting transfer to [facility] D/w Dr Reyes 12/08/2024 D/w pulmology ok to continue present care with iv abx and iv lasix pt still sob increase diuresis today pt had potassium rider continue oral potassium meds pt awaiting [place] transfer bed INR subtherapeutic continue coumadin dosing patient with chronic medical conditions and in and out of hospsital had developed aquired PNA and with underling COPD, patient is being treated with ceftriaxon and Ampicillin, patient is seen by her program checker and clinical symptoms are improving, patient has mechanical valve replaced in 2021 taking warfarin and her INR today is 1.7, goal is 2-3 INR, stats they do not bridge her . Review of Systems Review of Systems: Ongoing SOB All systems reviewed & are unremarkable except as noted in HPI and below (HPI) Exam Narrative: Patient is comfortable, NAD HEENT: eyes are clear and none icteric LUNGS:CTA HEART: RR S1S2 ABD: BS+, Soft and nontender Lower extremities: no edema SKIN: nonjaundiced Neuro: grossly intact. Objective Data Vital Signs Vital Signs: Vital Signs - 24 hr 12/08/24 20:00 12/08/24 20:00 12/08/24 22:00 Temperature 36.8 C Pulse Rate 102 H 104 H Respiratory Rate 18 Blood Pressure 107/61 Pulse Oximetry 95 95 Oxygen Delivery Nasal Cannula Oxygen Flow Rate 2 12/08/24 23:28 12/09/24 00:00 12/09/24 04:00 Temperature Pulse Rate 97 97 Respiratory Rate Blood Pressure Pulse Oximetry 95 Oxygen Delivery Nasal Cannula Oxygen Flow Rate 2 12/09/24 06:00 12/09/24 14:00 Temperature 36.9 C 36.3 C L Pulse Rate 88 101 H Respiratory Rate 18 22 H Blood Pressure 108/72 118/61 Pulse Oximetry 97 97 Oxygen Delivery Oxygen Flow Rate Intake/Output Intake/Output: Intake & Output 12/06/24 12/07/24 12/08/24 12/09/24 23:59 23:59 23:59 23:59 Intake Total 1830 2320 980 860 Output Total 5100 1000 1600 1150 Balance -3270 1320 -620 -290 Meds/Results Medications: Active Medications Generic Name Dose Route Start Last Admin Trade Name Freq PRN Reason Stop Dose Admin Acetaminophen 650 mg 12/05/24 01:09 12/05/24 17:11 Acetaminophen 325 Mg Tablet PO 650 mg Q4H PRN Administration Mild Pain (1-3) or Fever Albuterol 1 puff 12/05/24 15:27 12/06/24 01:43 Albuterol Sulfate (*Sp) Aerosol 1 Puff INHALATION 1 puff Q4H PRN Administration Shortness Of Breath Famotidine 40 mg 12/06/24 09:00 12/09/24 09:25 Famotidine 20 Mg Tablet PO 40 mg DAILY GLORY Administration Ferrous Sulfate 325 mg 12/06/24 09:00 12/09/24 09:25 Ferrous Sulfate [address] BY MOUTH 325 mg DAILY GLORY Administration Fluticasone Propionate 2 spray 12/06/24 09:00 12/09/24 09:35 Fluticasone Propionate 0.05% Na Spr 16 Gm Btl (*Bkc) NASAL 2 spray DAILY GLORY Administration Furosemide 40 mg 12/09/24 09:00 12/09/24 09:24 Furosemide Inj 40 Mg/4 Ml Vial IV PUSH 40 mg BID GLORY Administration Gabapentin 300 mg 12/05/24 17:00 12/09/24 13:03 Gabapentin 300 Mg Capsule PO 300 mg TID GLORY Administration Hydroxyzine HCl 12.5 mg 12/05/24 12:27 12/06/24 22:04 Hydroxyzine Hcl 12.5 Mg Tablet PO 12.5 mg Q6H PRN Administration Agitation Hydroxyzine HCl 10 mg 12/05/24 14:42 12/08/24 21:14 Hydroxyzine Hcl 10 Mg Tablet PO 10 mg Q6H PRN Administration Anxiety Ceftriaxone Sodium 2 gm in 100 mls @ 200 mls/hr 12/07/24 14:00 12/09/24 13:02 Rocephin 2 Gm/Ns 100 Ml IVPB 200 mls/hr Q12H GOLRY Administration Ampicillin Sodium 2 gm in 100 mls @ 200 mls/hr 12/07/24 21:00 12/09/24 13:03 Ampicillin 2 Gm/Ns 100 Ml IVPB 12/23/24 22:00 200 mls/hr Q8H GLORY Administration Ondansetron HCl 4 mg 12/05/24 01:09 Ondansetron Inj 4 Mg/2 Ml Vial IV PUSH Q4H PRN Nausea Polyethylene Glycol 17 gm 12/06/24 09:00 12/09/24 09:24 Polyethylene Glycol 3350 17 Gm Powd.Pack PO 17 gm DAILY GLORY Administration Potassium Chloride 40 meq 12/08/24 17:00 12/09/24 13:03 Potassium Chloride 20 Meq Er Tablet PO 40 meq TID GLORY Administration Sertraline HCl 100 mg 12/06/24 09:00 12/09/24 09:25 Sertraline Hcl 50 Mg Tablet PO 100 mg DAILY GLORY Administration Sodium Chloride 10 ml 12/05/24 22:00 12/09/24 13:04 Central Line Flush IV PUSH 10 ml Q8HR GLORY Administration Sodium Chloride 10 ml 12/05/24 14:31 Central Line Flush IV PUSH PRN PRN with TPN bag changes Sodium Chloride 20 ml 12/05/24 14:31 Central Line Flush IV PUSH PRN PRN after blood draws Warfarin Sodium 5 mg 12/08/24 17:00 12/08/24 16:57 Warfarin (*Pbkc) 5 Mg Tablet PO 5 mg DAILY@1700 GLORY Administration Radiology Results: ITS Impressions Chest CTA 12/04/24 05:22 Impression: No evidence of pulmonary embolus, aortic dissection, or aortic aneurysm. Small left pleural effusion and minimal right pleural effusion, with left lower lobe atelectasis and probable minimal pulmonary edema. Correlate clinically for left lower lobe pneumonia. 4.5 x 2.4 x 4.5 cm hematoma just superficial to the left pectoralis major muscle with small bubble of air within it. Correlate for recent trauma or procedure in this region. T10 compression fracture is new from prior exam. Large Schmorl's node at the superior plate of T11 and mild erosive change at the inferior endplate of T10 are also new. These are likely degenerative/related to fracture, however osteomyelitis/discitis is a potential alternative consideration. If this latter diagnosis is of clinical concern, then MRI with and without contrast recommended for further evaluation. Abdomen Ultrasound 12/06/24 07:41 IMPRESSION: 1: Status post cholecystectomy with expected prominence of the common bile duct. If there is concern for obstructing stone or mass in the duct, consider MRCP study. Chest X-Ray 12/06/24 09:26 Impression: 1: Cardiomegaly with mild interstitial edema. 2: Possible superimposed pneumonia left mid and lower thorax. 3: Small left pleural effusion. Labs Labs: Laboratory Results - last 24 hr 12/08/24 12/09/24 17:22 04:26 WBC 8.1 RBC 3.44 L Hgb 9.1 L Hct 31.4 L MCV 91.3 MCH 26.5 MCHC 29.0 L RDW 18.1 H Plt Count 200 MPV 11.1 H Immature Gran % (Auto) 0.5 Neut % (Auto) 68.5 Lymph % (Auto) 10.2 L [place] % (Auto) 4.6 Eos % (Auto) 15.5 H Baso % (Auto) 0.7 Lymph # (Auto) 0.83 L [place] # (Auto) 0.4 Eos # (Auto) 1.3 H Baso # (Auto) 0.1 Abs Immat Gran (auto) 0.04 H Absolute Neuts (auto) 5.6 Absolute Nucleated RBC 0.000 Band Neutrophils % Not Reportable Nucleated RBC % 0.0 Platelet Estimate Adequate Hypochromasia 1+ Anisocytosis 1+ Ovalocytes 1+ Schistocytes Rare PT 20.2 H 20.0 H INR 1.7 1.7 Sodium 139 143 Potassium 2.8 L* 3.4 Chloride 100 104 Carbon Dioxide 30 30 Anion Gap 9 9 BUN 15 14 Creatinine 1.06 H 1.09 H Estim Creat Clear Calc 36 35 Estimated GFR 52 L 50 L Glucose 107 94 Calcium 8.6 8.5 Magnesium 1.8 Quality VTE Prophylaxis VTE prophylaxis: mechanical ordered
[2024-12-09] MEDS: WARFARIN (*PBKC) 5 MG TABLET PO (17:23)
[2024-12-09] MEDS: hydrOXYzine HCL 12.5 MG TABLET PO (17:23)
[2024-12-10] VITALS (11 sets, daily range): BP systolic 94–113; BP diastolic 56–68; PULSE 63–100; RESP 18–20; TEMP 36.2–36.7; O2SAT 96–100
[2024-12-10] MEDS: cefTRIAXone 2 GM/NS 100 ML 2 GM/100 ML BAG IVPB ×2 (01:15→13:41)
[2024-12-10] MEDS: AMPICILLIN 2 GM/NS 100 ML 2 GM/100 ML BAG IVPB ×4 (05:29→23:16)
[2024-12-10] MEDS: CENTRAL LINE FLUSH 10 ML IV PUSH ×3 (05:35→23:17)
[2024-12-10] MEDS: CENTRAL LINE FLUSH 20 ML IV PUSH (05:35)
[2024-12-10 05:45] LABS: Hematocrit 31.9 % (37.0-47.0); Hemoglobin 9.2 g/dL (12.0-15.0); Mean Corpuscular HGB Conc 28.8 g/dl (32-36); Mean Corpuscular Hemoglobin 26.6 pg (26-34); Mean Corpuscular Volume 92.2 fl (80-100); Mean Platelet Volume 10.8 fl (7.4-10.4); Platelet Count Result 192 k/mm3 (150-375); Red Blood Count 3.46 M/mm3 (4.2-5.4); Red Cell Distribution Width 18.3 % (11.5-14.5); White Blood Count 6.7 K/mm3 (4.5-10.0)
[2024-12-10 05:55] LABS: Prothrombin Time 22.3 Seconds (11.1-14.7)
[2024-12-10 06:02] LABS: Anion Gap 6 mmol/L (4-12); Blood Urea Nitrogen 16 mg/dL (7-17); Calcium 8.7 mg/dL (8.4-10.2); Carbon Dioxide 32 mmol/L (22-30); Chloride 105 mmol/L (98-107); Estimated CRCL calculation 39 ml/min; Estimated Glomerular Filt Rate 57; Glucose 93 mg/dL (65-110); Magnesium 1.9 mg/dL (1.6-2.3); Potassium 3.9 mmol/L (3.4-5.0); Sodium 143 mmol/L (137-145)
[2024-12-10] MEDS: polyethylene glycoL 3350 17 GM POWD.PACK PO (09:30)
[2024-12-10] MEDS: FERROUS SULFATE 325 MG TABLET DR BY MOUTH (09:30)
[2024-12-10] MEDS: FUROSEMIDE INJ 40 MG/4 ML VIAL IV PUSH ×2 (09:30→17:22)
[2024-12-10] MEDS: POTASSIUM CHLORIDE 20 MEQ ER TABLET 40 MEQ PO ×3 (09:30→17:24)
[2024-12-10] MEDS: FAMOTIDINE 20 MG TABLET 40 MG PO (09:31)
[2024-12-10] MEDS: SERTRALINE HCL 50 MG TABLET 100 MG PO (09:31)
[2024-12-10] MEDS: GABAPENTIN 300 MG CAPSULE PO ×3 (09:32→17:24)
[2024-12-10] MEDS: FLUTICASONE PROPIONATE 0.05% NA SPR 16 GM BTL (*BKC) 2 SPRAY NASAL (09:43)
[2024-12-10] MEDS: oxyCODONE HCL (*CRX) 2.5 MG TAB IR 7.5 MG PO (11:28)
[2024-12-10] MEDS: carvediloL 12.5 MG TABLET PO ×2 (11:28→20:42)
--- NOTE | 2024-12-10 12:15 | P.CONCA_ITS ---
Assessment and Plan Assessment and plan (1) Acute on chronic heart failure with preserved ejection fraction: Code(s): I50.33 - Acute on chronic diastolic (congestive) heart failure Status: Acute Plan Acute on chronic heart failure with preserved LVEF Acute hypoxic respiratory failure Possible pneumonia Coronary artery disease s/p 1V CABG with SVG to RCA in 2021 Mechanical aortic valve (Twice, 2019) Mitral valve repair 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 Please monitor strict I/Os. Will give a one time dose of Metolazone today. -Continue Coreg 12.5mg BID. -Plan to restart her on Spironolactone 25mg once daily if renal function remains stable. Will hold off for now to avoid hypotension with IV diuresis given blood pressures are currently soft. -Continue Warfarin for mechanical aortic valve, PAF. Goal INR of 2-3. -Continue Atorvastatin. -Antibiotic management as per Hospitalist. History of Present Illness History of Present Illness Consult date/time: 12/10/24 12:15 Requesting physician: Kiara Smith MD Consult reason: congestive heart failure Reason For Visit: Hospital-acquired pneumonia, hypoxia requiring Narrative: Kendal is a 69 year old female patient of Dr. Dee's with the following history: 1. Coronary artery disease s/p 1V CABG with SVG to RCA in 2021 2. Mechanical aortic valve (Twice, 2019) 3. Mitral valve repair 4. 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 Paroxysmal atrial fibrillation 6. LBBB 7. Pulmonary hypertension 8. Chronic diastolic heart failure 9. Chronic kidney disease 10. Hypertension OSH records from [facility] was personally reviewed and noted below: Patient was recently discharged from [facility] on 12/02/2024 after being admitted there on 11/13. She was admitted with Enterococci baceteremia. Underwent removal of her pacemaker on 11/25 as NEVAEH showed tiny mobile linear echodensities on device lead in the right atrium concerning for vegetation. Did not need a replacement pacemaker. Treated for osteomyelitis. Discharged on home Coreg, but Spironolactone was held upon discharge due to elevated SCr levels with plan to resume Spironolactone 25mg once daily when renal function improves. NEVAEH during that hospitalization showed normal LVEF. Patient presented to [place] due to shortness of breath, coughing with yellow sputum. She was admitted on 12/05 for acute hypoxic respiratory failure, possible pneumonia, CHF. Initially transfer to [facility] was pending given her recent hospitalization there for continuity of care, but that transfer appears to have been canceled. She continues to report ongoing shortness of breath. Remains on supplemental oxygen. Review of Systems 2 Review of Systems: All systems reviewed & are unremarkable except as noted in HPI and below (HPI) [facility] Past Medical History Medical History Chronic anticoagulation Pacemaker Biotronik BiV pacemaker, gen change 09/2023 HTN (hypertension) Hyperlipidemia Cardiomyopathy Atrial fibrillation Overweight (BMI 25.0-29.9) History of cardiac pacemaker Surgical History Surgical History H/O mechanical aortic valve replacement H/O mitral valve repair S/P AVR (aortic valve replacement) Family History Family History Father High cholesterol Heart disease Heart attack CABG Mother Heart disease Pacemaker Social History Social History Smoking packs per day: 1 Smoking cigarettes per day: 20.0 Years smoked: 40 Smoking pack-years: 40.00 Smoking status: Former smoker Tobacco type: cigarettes Second hand tobacco smoke exposure: Yes Alcohol intake: never Substance use: never Substance use type: does not use Do You Feel Safe in your Home?: Yes Lack of Transportation: No Lack of Food: Never True Current Housing: I Have Housing Concerned About Future Housing: No Difficulty Paying Gas/Electric Bills: No Difficulty Paying for Meds: No Currently Unemployed: No Education: Associate Degree Difficulty w/ Childcare or Family Care: No Living arrangements: with family Spiritual care concerns: No Meds Home Medications and Allergies Home Medications ?Medication ?Instructions ?Recorded ?Confirmed ?Type sertraline 100 mg tablet 100 mg PO DAILY #30 tabs 02/09/22 12/05/24 Rx spironolactone 25 mg tablet 25 mg PO DAILY #30 tabs 02/09/22 12/05/24 Rx (Aldactone) trazodone 50 mg tablet 50 mg PO HS 05/26/22 12/05/24 History carvedilol 12.5 mg tablet 12.5 mg PO Q12H 06/13/23 12/05/24 History diphenhydramine HCl 50 mg capsule 50 mg PO QHS PRN Insomnia 06/13/23 12/05/24 History famotidine 40 mg tablet 40 mg PO DAILY 06/13/23 12/05/24 History furosemide 20 mg tablet 20 mg PO DAILY 06/13/23 12/05/24 History rosuvastatin 40 mg tablet 40 mg PO DAILY 06/13/23 12/05/24 History warfarin 3 mg tablet 3 mg PO DIRECTED 06/13/23 12/05/24 History budesonide 160 mcg-glycopyr 9 2 inh inhalation BID #10.7 grams 11/06/23 12/05/24 Rx mcg-formot 4.8 mcg/actuation HFA inhaler budesonide 160 mcg-glycopyr 9 2 inh inhalation BID #10.7 grams 03/05/24 12/05/24 Rx mcg-formot 4.8 mcg/actuation HFA inhaler budesonide 160 mcg-glycopyr 9 2 inh inhalation BID #10.7 grams 05/22/24 12/05/24 Rx mcg-formot 4.8 mcg/actuation HFA inhaler albuterol sulfate 90 mcg/actuation 1 puff inhalation Q4H PRN 07/21/24 12/05/24 Rx aerosol inhaler Shortness Of Breath #8.5 grams cyclobenzaprine 10 mg tablet 10 mg PO BID PRN muscle spasm #14 09/01/24 12/05/24 Rx tabs ampicillin sodium 2 gram 2 g IV Q6H Osteomyelitis 12/05/24 12/05/24 History intravenous solution ceftriaxone 2 gram intravenous 2 g IV BID Osteomyelitis 12/05/24 12/05/24 History solution ferrous sulfate 325 mg (65 mg 325 mg PO DAILY 12/05/24 12/05/24 History iron) tablet (Feosol) fluticasone propionate 50 2 spray intranasal DAILY 12/05/24 12/05/24 History mcg/actuation nasal spray,suspension gabapentin 300 mg capsule 300 mg PO TID 12/05/24 12/05/24 History hydrocortisone 1 % topical cream 1 applic RECTAL BID 12/05/24 12/05/24 History with perineal applicator hydroxyzine HCl 10 mg tablet 10 mg PO Q4H PRN anxiety 12/05/24 12/05/24 History lidocaine 5 % topical patch 1 patch topical BID 12/05/24 12/05/24 History lorazepam 0.5 mg tablet (Ativan) 0.25 mg PO Q6H PRN anxiety 12/05/24 12/05/24 History methocarbamol 750 mg tablet 750 mg PO TID 12/05/24 12/05/24 History ondansetron 4 mg disintegrating 4 mg PO Q8H PRN nausea and vomiting 12/05/24 12/05/24 History tablet oxycodone 15 mg tablet 7.5 mg PO Q4H PRN pain 12/05/24 12/05/24 History polyethylene glycol 3350 17 17 g PO DAILY 12/05/24 12/05/24 History gram/dose oral powder (ClearLax) warfarin 4 mg tablet 4 mg PO .Evening 12/05/24 12/05/24 History Allergies Allergy/AdvReac Type Severity Reaction Status Date / Time atorvastatin Allergy Unknown Verified 11/04/24 12:58 hydrocodone (From Vicodin) Allergy Itching Verified 11/04/24 12:58 atropine AdvReac Dizziness Verified 11/04/24 12:58 Sulfa (Sulfonamide AdvReac Vomiting Verified 11/04/24 12:58 Antibiotics) Vital Signs Vital Signs - 24 hr 12/09/24 14:00 12/09/24 16:04 12/09/24 19:59 Temperature 36.3 C L Pulse Rate 101 H 98 92 Respiratory Rate 22 H Blood Pressure 118/61 Pulse Oximetry 97 Oxygen Delivery Oxygen Flow Rate 12/09/24 20:00 12/09/24 20:00 12/09/24 22:00 Temperature 36.4 C Pulse Rate 102 H 100 Respiratory Rate 18 Blood Pressure 105/68 Pulse Oximetry 95 95 Oxygen Delivery Nasal Cannula Oxygen Flow Rate 3 12/10/24 00:00 12/10/24 04:00 12/10/24 06:00 Temperature 36.6 C Pulse Rate 89 81 99 Respiratory Rate 18 Blood Pressure 111/67 Pulse Oximetry 96 Oxygen Delivery Oxygen Flow Rate 12/10/24 11:28 Temperature Pulse Rate 100 Respiratory Rate Blood Pressure Pulse Oximetry Oxygen Delivery Oxygen Flow Rate Exam 2 Const: General: no acute distress Other: Chronically ill appearing female HENMT: Mouth: Yes moist mucous membranes Resp: Effort & Inspection: normal respiratory effort Auscultation: d iminished lung sounds Other: On supplemental oxygen Cardio: Rhythm: abnormal rhythm irregularly irregular Other: + Mechanical click. No lower extremity e mali Skin: General skin exam: normal color Neuro: Speech: normal speech Psych: Mental Status: mental status grossly normal Affect: normal affect Results Labs and Meds 12/10/24 05:22 12/10/24 05:22 Lab results: Coagulation 12/10/24 Range/Units 05:22 PT 22.3 H (11.1-14.7) Seconds CBC 12/10/24 Range/Units 05:22 WBC 6.7 (4.5-10.0) K/mm3 RBC 3.46 L (4.2-5.4) M/mm3 Hgb 9.2 L (12.0-15.0) g/dL Hct 31.9 L (37.0-47.0) % Plt Count 192 (150-375) k/mm3 Comprehensive Metabolic Panel 12/10/24 Range/Units 05:22 Sodium 143 (137-145) mmol/L Potassium 3.9 (3.4-5.0) mmol/L Chloride 105 (98-107) mmol/L Carbon Dioxide 32 H (22-30) mmol/L BUN 16 (7-17) mg/dL Creatinine 0.98 (0.7-1.0) mg/dL Glucose 93 (65-110) mg/dL Calcium 8.7 (8.4-10.2) mg/dL Intake and Output 12/09/24 12/10/24 12/10/24 23:59 07:59 15:59 Intake Total 370 500 240 Output Total 300 Balance 370 200 240 Intake: IV 100 200 Ampicillin 2 gm/Ns 100 ml 2 gm 100 100 In 100 ml @ 200 mls/hr IVPB Q8H GL[facility] Rx#:[id number] cefTRIAXone 2 GM/NS 100 ML 2 gm 100 In 100 ml @ 200 mls/hr IVPB Q12H GL[facility] Rx#:[id number] Oral 270 300 240 Output: Catheter Urine 300 External/Condom 300 Other: # Unmeasured Voids 1 # Incontinent Voids 1 Number of Bowel Movements Today 1 Patient Weight 12/10/24 23:59 Weight 59.5 kg
[2024-12-10] MEDS: methocarbamoL 750 MG TABLET PO ×2 (13:41→17:25)
[2024-12-10] MEDS: metOLazone 5 MG TABLET PO (13:46)
--- NOTE | 2024-12-10 14:32 | P.PNIM_ITS ---
Progress Note: A&P Assessment and Plan (1) Hospital acquired PNA: Code(s): J18.9 - Pneumonia, unspecified organism; Y95 - Nosocomial condition Status: Acute Assessment and Plan: CXR: Left basilar atelectasis versus pneumonia with possible Effusion - Risk Factors: none - Complicating Factors: none - started on HAP: Cefepime & Vanc (discontinued due to (-) MRSA) - change to iv ampicilin and iv rocephin (2) Acute and chronic respiratory failure with hypoxia: Code(s): J96.21 - Acute and chronic respiratory failure with hypoxia Status: Acute Assessment and Plan: * Symptoms: Shortness of breath * Chest XR: Left basilar atelectasis versus pneumonia with possible Effusion * dc breathing treatments (3) Transaminitis: Code(s): R74.01 - Elevation of levels of liver transaminase levels Status: Acute Assessment and Plan: * Upon admission:AST 239, ALT 137 * Repeat: 183, 144 respectively * Physical exam benign, no abdominal pain * RUQ US reveiwed with pt (4) S/P AVR (aortic valve replacement): Code(s): Z95.2 - Presence of prosthetic heart valve Status: Acute (5) H/O mitral valve repair: Code(s): Z98.890 - Other specified postprocedural states Status: Acute (6) H/O mechanical aortic valve replacement: Code(s): Z95.2 - Presence of prosthetic heart valve Status: Acute (7) Cardiomyopathy: Code(s): I42.9 - Cardiomyopathy, unspecified Status: Acute Assessment and Plan: pt switched to iv lasix increase dose more diuresis D/w pulmology MD (8) HTN (hypertension): Code(s): I10 - Essential (primary) hypertension Status: Acute Assessment and Plan: watch blood pressures chronic and stable (9) Anemia: Code(s): D64.9 - Anemia, unspecified Status: Acute Assessment and Plan: order iv venofer today for hb of 7 hb improved to 8.7 continue ferrous sulphate Plan patient with chronic medical conditions and in and out of hospsital had developed hospital aquired PNA and with underling COPD, patient is being treated with ceftriaxon and Ampicillin, patient is seen by her mixer operator vacuum pan salt and clinical symptoms are improving, repeat chest x-ray shows persisting pneumonia, patient has mechanical valve replaced in 2021 taking warfarin and her INR today is 2.0, goal is 2-3 INR. severe hypokalaemia pt had potassium rider continue potassium supplements dvt prop pt is on coumadin monitor INRS Subjective Date/time seen: 12/10/24 14:32 Interval history: Ms. Junior is a 69-year-old female with history of AFib status post pacemaker, CKD, recent T10/T11 vertebral osteomyelitis, bacterial endocarditis, infected pacemaker hardware status post removal on 11/25/2024 at [place], heparin-induced thrombocytopenia, aortic valve replacement/aortic grafting replacement in 2021, previous ECMO in 2021 due to mediastinum night is and aortic/ventricular injury requiring repair. She was recently hospitalized at [place] for bacteremia with Enterococcus and then discharged on 6 weeks of antibiotics by a right-sided PICC line which was scheduled to be completed in 01/2025. 12/05/2024 Patient sitting comfortably in bed at time of exam. Vital signs appear to be stable with a pulse rate of 97 and O2 saturation of 94% on 2 L NC, however patient states shortness of breath has improved when compared to yesterday. Pending transfer to [facility] at this time. 12/06/2024 Pt needing 3 liters of oxygen today cxr and abg ordered and reviewed Order iv lasix for pt for pulmonary edema Order venofer for low hb Pt awaiting transfer to [facility] recent pacemaker removal Pt had all her cardiac procedures in [place] 12/07/2024 Pts coumadin restarted Pt restarted on her ampicillin Pt having low potassium krider ordered for pt Pt still sob pt started on iv lasix D/w pt and son by the bedside Awaiting transfer to [facility] D/w Dr Reyes 12/08/2024 D/w pulmology ok to continue present care with iv abx and iv lasix pt still sob increase diuresis today pt had potassium rider continue oral potassium meds pt awaiting [place] transfer bed INR subtherapeutic continue coumadin dosing patient with chronic medical conditions and in and out of hospsital had developed hospital aquired PNA and with underling COPD, patient is being treated with ceftriaxon and Ampicillin, patient is seen by her mixer operator vacuum pan salt and clinical symptoms are improving, repeat chest x-ray shows persisting pneumonia, patient has mechanical valve replaced in 2022 taking warfarin and her INR today is 2.0, goal is 2-3 INR. Review of Systems Review of Systems: Ongoing SOB All systems reviewed & are unremarkable except as noted in HPI and below (HPI) Exam Narrative: Patient is comfortable, NAD HEENT: eyes are clear and none icteric LUNGS:CTA HEART: RR S1S2 ABD: BS+, Soft and nontender Lower extremities: no edema SKIN: nonjaundiced Neuro: grossly intact. Objective Data Vital Signs Vital Signs: Vital Signs - 24 hr 12/09/24 16:04 12/09/24 19:59 12/09/24 20:00 Temperature Pulse Rate 98 92 Respiratory Rate Blood Pressure Pulse Oximetry 95 Oxygen Delivery Nasal Cannula Oxygen Flow Rate 3 12/09/24 20:00 12/09/24 22:00 12/10/24 00:00 Temperature 36.4 C Pulse Rate 102 H 100 89 Respiratory Rate 18 Blood Pressure 105/68 Pulse Oximetry 95 Oxygen Delivery Oxygen Flow Rate 12/10/24 04:00 12/10/24 06:00 12/10/24 11:28 Temperature 36.6 C Pulse Rate 81 99 100 Respiratory Rate 18 Blood Pressure 111/67 Pulse Oximetry 96 Oxygen Delivery Oxygen Flow Rate Intake/Output Intake/Output: Intake & Output 12/07/24 12/08/24 12/09/24 12/10/24 23:59 23:59 23:59 23:59 Intake Total 2320 980 1430 740 Output Total 1000 1600 1150 300 Balance 1320 -620 280 440 Meds/Results Medications: Active Medications Generic Name Dose Route Start Last Admin Trade Name Freq PRN Reason Stop Dose Admin Acetaminophen 650 mg 12/05/24 01:09 12/05/24 17:11 Acetaminophen 325 Mg Tablet PO 650 mg Q4H PRN Administration Mild Pain (1-3) or Fever Albuterol 1 puff 12/05/24 15:27 12/06/24 01:43 Albuterol Sulfate (*Sp) Aerosol 1 Puff INHALATION 1 puff Q4H PRN Administration Shortness Of Breath Carvedilol 12.5 mg 12/10/24 11:00 12/10/24 11:28 Carvedilol 12.5 Mg Tablet PO 12.5 mg Q12HR GLORY Administration Cyclobenzaprine HCl 10 mg 12/10/24 10:15 Cyclobenzaprine Hcl 10 Mg Tablet PO BID PRN muscle spasm Famotidine 40 mg 12/06/24 09:00 12/10/24 09:31 Famotidine 20 Mg Tablet PO 40 mg DAILY GLORY Administration Ferrous Sulfate 325 mg 12/06/24 09:00 12/10/24 09:30 Ferrous Sulfate [address] BY MOUTH 325 mg DAILY GLORY Administration Fluticasone Propionate 2 spray 12/06/24 09:00 12/10/24 09:43 Fluticasone Propionate 0.05% Na Spr 16 Gm Btl (*Bkc) NASAL 2 spray DAILY GLORY Administration Fluticasone/Umeclidinium/Vilanterol 1 puff 12/11/24 08:00 Fluticasone/Umeclidin/Vilanter 100-62.5-25 Mcg Ellipta INHALATION DAILY[facility] Furosemide 40 mg 12/09/24 09:00 12/10/24 09:30 Furosemide Inj 40 Mg/4 Ml Vial IV PUSH 40 mg BID GLORY Administration Gabapentin 300 mg 12/05/24 17:00 12/10/24 13:41 Gabapentin 300 Mg Capsule PO 300 mg TID GLORY Administration Hydrocortisone 1 applic 12/10/24 17:00 Hydrocortisone 1% 30 Gm Cream TOPICAL BID [facility]ORY Hydroxyzine HCl 12.5 mg 12/05/24 12:27 12/09/24 17:23 Hydroxyzine Hcl 12.5 Mg Tablet PO 12.5 mg Q6H PRN Administration Agitation Hydroxyzine HCl 10 mg 12/10/24 10:15 Hydroxyzine Hcl 10 Mg Tablet PO Q4H PRN anxiety Ceftriaxone Sodium 2 gm in 100 mls @ 200 mls/hr 12/07/24 14:00 12/10/24 13:41 Rocephin 2 Gm/Ns 100 Ml IVPB 200 mls/hr Q12H GLORY Administration Ampicillin Sodium 2 gm in 100 mls @ 200 mls/hr 12/07/24 21:00 12/10/24 13:46 Ampicillin 2 Gm/Ns 100 Ml IVPB 12/23/24 22:00 200 mls/hr Q8H GLORY Administration Lidocaine 1 patch 12/10/24 17:00 Lidocaine 5% Patch TOPICAL BID GLORY Methocarbamol 750 mg 12/10/24 13:00 12/10/24 13:41 Methocarbamol 750 Mg Tablet PO 750 mg TID GLORY Administration Ondansetron HCl 4 mg 12/05/24 01:09 Ondansetron Inj 4 Mg/2 Ml Vial IV PUSH Q4H PRN Nausea Ondansetron HCl 4 mg 12/10/24 10:15 Ondansetron Hcl Odt 4 Mg Tablet PO Q8H PRN nausea and vomiting Oxycodone HCl 7.5 mg 12/10/24 10:15 12/10/24 11:28 Oxycodone Hcl (*Crx) 2.5 Mg Tab Ir PO 7.5 mg Q4H PRN Administration PAIN 7-10 Oxycodone HCl 5 mg 12/10/24 11:31 Oxycodone Hcl (*Crx) 5 Mg Tab Ir PO Q4H PRN Pain Rated 4-6 Polyethylene Glycol 17 gm 12/06/24 09:00 12/10/24 09:30 Polyethylene Glycol 3350 17 Gm Powd.Pack PO 17 gm DAILY GLORY Administration Potassium Chloride 40 meq 12/08/24 17:00 12/10/24 13:41 Potassium Chloride 20 Meq Er Tablet PO 40 meq TID GLORY Administration Rosuvastatin Calcium 40 mg 12/11/24 09:00 Rosuvastatin 20 Mg Tablet PO DAILY [facility] Sertraline HCl 100 mg 12/06/24 09:00 12/10/24 09:31 Sertraline Hcl 50 Mg Tablet PO 100 mg DAILY GLORY Administration Sodium Chloride 10 ml 12/05/24 22:00 12/10/24 05:35 Central Line Flush IV PUSH 10 ml Q8HR GLORY Administration Sodium Chloride 10 ml 12/05/24 14:31 Central Line Flush IV PUSH PRN PRN with TPN bag changes Sodium Chloride 20 ml 12/05/24 14:31 12/10/24 05:35 Central Line Flush IV PUSH 20 ml PRN PRN Administration after blood draws Trazodone HCl 50 mg 12/10/24 21:00 Trazodone Hcl 50 Mg Tablet PO HS GLORY Warfarin Sodium 5 mg 12/08/24 17:00 12/09/24 17:23 Warfarin (*Pbkc) 5 Mg Tablet PO 5 mg DAILY@1700 GLORY Administration Radiology Results: ITS Impressions Chest CTA 12/04/24 05:22 Impression: No evidence of pulmonary embolus, aortic dissection, or aortic aneurysm. Small left pleural effusion and minimal right pleural effusion, with left lower lobe atelectasis and probable minimal pulmonary edema. Correlate clinically for left lower lobe pneumonia. 4.5 x 2.4 x 4.5 cm hematoma just superficial to the left pectoralis major muscle with small bubble of air within it. Correlate for recent trauma or procedure in this region. T10 compression fracture is new from prior exam. Large Schmorl's node at the superior plate of T11 and mild erosive change at the inferior endplate of T10 are also new. These are likely degenerative/related to fracture, however osteomyelitis/discitis is a potential alternative consideration. If this latter diagnosis is of clinical concern, then MRI with and without contrast recommended for further evaluation. Abdomen Ultrasound 12/06/24 07:41 IMPRESSION: 1: Status post cholecystectomy with expected prominence of the common bile duct. If there is concern for obstructing stone or mass in the duct, consider MRCP study. Chest X-Ray 12/10/24 11:40 Impression: 1: Cardiomegaly with mild interstitial edema. 2: Left basilar airspace consolidation a represent atelectasis and/or superimposed pneumonia. Labs Labs: Laboratory Results - last 24 hr 12/10/24 05:22 WBC 6.7 RBC 3.46 L Hgb 9.2 L Hct 31.9 L MCV 92.2 MCH 26.6 MCHC 28.8 L RDW 18.3 H Plt Count 192 MPV 10.8 H PT 22.3 H INR 2.0 Sodium 143 Potassium 3.9 Chloride 105 Carbon Dioxide 32 H Anion Gap 6 BUN 16 Creatinine 0.98 Estim Creat Clear Calc 39 Estimated GFR 57 L Glucose 93 Calcium 8.7 Magnesium 1.9 Quality VTE Prophylaxis VTE prophylaxis: mechanical ordered
[2024-12-10] MEDS: WARFARIN (*PBKC) 5 MG TABLET PO (17:24)
--- NOTE | 2024-12-10 18:55 | PC.NURSE ---
Pt and son expressed concern over medical care given by MD over weekend. Notified MD and requested home meds to be restarted, cardiology consult, pain medications, and would like to avoid transfer to [facility] if possible. Called hospitalist, and received orders. Pt pain much better, obtained consent to fax lab results to [facility]. Pt and family much more comfortable and thankful for care.
[2024-12-10] MEDS: oxyCODONE HCL (*CRX) 5 MG TAB IR PO (20:44)
[2024-12-11] VITALS (11 sets, daily range): BP systolic 103–108; BP diastolic 59–96; PULSE 58–85; RESP 16–18; TEMP 36.1–36.2; O2SAT 90–99
[2024-12-11] MEDS: cefTRIAXone 2 GM/NS 100 ML 2 GM/100 ML BAG IVPB ×2 (01:10→13:02)
[2024-12-11] MEDS: AMPICILLIN 2 GM/NS 100 ML 2 GM/100 ML BAG IVPB ×3 (05:04→18:04)
[2024-12-11] MEDS: CENTRAL LINE FLUSH 10 ML IV PUSH ×3 (05:08→21:15)
[2024-12-11] MEDS: CENTRAL LINE FLUSH 20 ML IV PUSH (05:08)
[2024-12-11 05:53] LABS: Hematocrit 32.9 % (37.0-47.0); Hemoglobin 9.4 g/dL (12.0-15.0); Mean Corpuscular HGB Conc 28.6 g/dl (32-36); Mean Corpuscular Hemoglobin 26.9 pg (26-34); Mean Platelet Volume 10.7 fl (7.4-10.4); Platelet Count Result 203 k/mm3 (150-375); Red Cell Distribution Width 18.6 % (11.5-14.5); White Blood Count 7.1 K/mm3 (4.5-10.0)
[2024-12-11 06:08] LABS: INR 3.2; Prothrombin Time 31.7 Seconds (11.1-14.7)
[2024-12-11 06:16] LABS: Anion Gap 8 mmol/L (4-12); Blood Urea Nitrogen 21 mg/dL (7-17); Calcium 9.3 mg/dL (8.4-10.2); Carbon Dioxide 35 mmol/L (22-30); Chloride 99 mmol/L (98-107); Estimated CRCL calculation 30 ml/min; Estimated Glomerular Filt Rate 40; Glucose 101 mg/dL (65-110); Potassium 4.4 mmol/L (3.4-5.0); Sodium 142 mmol/L (137-145)
[2024-12-11] MEDS: FLUTICASONE/UMECLIDIN/VILANTER 100-62.5-25 MCG ELLIPTA 1 PUFF INHALATION (09:00)
--- NOTE | 2024-12-11 09:03 | PM.PNCARD ---
Progress Note: A&P Assessment and Plan (1) Acute on chronic heart failure with preserved ejection fraction: Code(s): I50.33 - Acute on chronic diastolic (congestive) heart failure Status: Acute Plan Acute on chronic heart failure with preserved LVEF Acute hypoxic respiratory failure Possible pneumonia Coronary artery disease s/p 1V CABG with SVG to RCA in 2021 Mechanical aortic valve (Inspclaudia mattson, 2019) Mitral valve repair 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 Please monitor strict I/Os. -Continue Coreg 12.5mg BID. -Plan to restart her on Spironolactone 25mg once daily if renal function remains stable. (BUN/SCr 21/1.31 from 16/0.98 yesterday) Will hold off for now to avoid hypotension with IV diuresis given blood pressures are currently soft. -Continue Warfarin for mechanical aortic valve, PAF. Goal INR of 2-3. INR 3.0 today. Warfarin had been placed on hold, will resume as INR is at goal. -Continue Atorvastatin. -Antibiotic management as per Hospitalist. Subjective Date/time seen: 12/11/24 09:03 Interval history: Cardiology follow up visit States she is feeling better than yesterday but still has shortness of breath. No chest pain, palpitations, swelling. Review of Systems Review of Systems: All systems reviewed & are unremarkable except as noted in HPI and below (HPI) Exam Const: General: no acute distress Other: Chronically ill appearing female HENMT: Mouth: Yes moist mucous membranes Resp: Effort & Inspection: normal respiratory effort Auscultation: crackles and diminished lung sounds Other: On supplemental oxygen Cardio: Rhythm: abnormal rhythm irregularly irregular Other: + Mechanical click. No lower extremity edema Urinary Catheter: Urinary Catheter: patent and draining Skin: General skin exam: normal color Neuro: Speech: normal speech Psych: Mental Status: mental status grossly normal Affect: normal affect Objective Data Vital Signs Vital Signs: Vital Signs - 24 hr 12/10/24 11:28 12/10/24 12:00 12/10/24 14:00 Temperature 36.2 C L Pulse Rate 100 95 64 Respiratory Rate 20 Blood Pressure 94/56 L Pulse Oximetry 99 12/10/24 16:00 12/10/24 20:00 12/10/24 20:27 Temperature 36.7 C Pulse Rate 63 69 70 Respiratory Rate 18 Blood Pressure 113/68 Pulse Oximetry 100 12/10/24 20:42 12/11/24 00:00 12/11/24 04:00 Temperature Pulse Rate 70 62 65 Respiratory Rate Blood Pressure Pulse Oximetry 12/11/24 05:09 Temperature 36.2 C L Pulse Rate 68 Respiratory Rate 16 Blood Pressure 108/66 Pulse Oximetry 99 Intake/Output Intake/Output: Intake & Output 12/08/24 12/09/24 12/10/24 12/11/24 23:59 23:59 23:59 23:59 Intake Total 980 1430 1380 550 Output Total 1600 1150 1000 350 Balance -620 280 380 200 Meds/Results Medications: Active Medications Generic Name Dose Route Start Last Admin Trade Name Freq PRN Reason Stop Dose Admin Acetaminophen 650 mg 12/05/24 01:09 12/05/24 17:11 Acetaminophen 325 Mg Tablet PO 650 mg Q4H PRN Administration Mild Pain (1-3) or Fever Albuterol 1 puff 12/05/24 15:27 12/06/24 01:43 Albuterol Sulfate (*Sp) Aerosol 1 Puff INHALATION 1 puff Q4H PRN Administration Shortness Of Breath Carvedilol 12.5 mg 12/10/24 11:00 12/10/24 20:42 Carvedilol 12.5 Mg Tablet PO 12.5 mg Q12HR GLORY Administration Cyclobenzaprine HCl 10 mg 12/10/24 10:15 Cyclobenzaprine Hcl 10 Mg Tablet PO BID PRN muscle spasm Famotidine 40 mg 12/06/24 09:00 12/10/24 09:31 Famotidine 20 Mg Tablet PO 40 mg DAILY GLORY Administration Ferrous Sulfate 325 mg 12/06/24 09:00 12/10/24 09:30 Ferrous Sulfate [address] BY MOUTH 325 mg DAILY GLORY Administration Fluticasone Propionate 2 spray 12/06/24 09:00 12/10/24 09:43 Fluticasone Propionate 0.05% Na Spr 16 Gm Btl (*Bkc) NASAL 2 spray DAILY GLORY Administration Fluticasone/Umeclidinium/Vilanterol 1 puff 12/11/24 08:00 Fluticasone/Umeclidin/Vilanter 100-62.5-25 Mcg Ellipta INHALATION DAILYRT [facility] Furosemide 40 mg 12/09/24 09:00 12/10/24 17:22 Furosemide Inj 40 Mg/4 Ml Vial IV PUSH 40 mg BID GLORY Administration Gabapentin 300 mg 12/05/24 17:00 12/10/24 17:24 Gabapentin 300 Mg Capsule PO 300 mg TID GLORY Administration Hydrocortisone 1 applic 12/10/24 17:00 12/10/24 17:25 Hydrocortisone 1% 30 Gm Cream TOPICAL Not Given BID GLORY Hydroxyzine HCl 12.5 mg 12/05/24 12:27 12/09/24 17:23 Hydroxyzine Hcl 12.5 Mg Tablet PO 12.5 mg Q6H PRN Administration Agitation Hydroxyzine HCl 10 mg 12/10/24 10:15 Hydroxyzine Hcl 10 Mg Tablet PO Q4H PRN anxiety Ceftriaxone Sodium 2 gm in 100 mls @ 200 mls/hr 12/07/24 14:00 12/11/24 01:10 Rocephin 2 Gm/Ns 100 Ml IVPB 12/23/24 23:59 200 mls/hr Q12H GLORY Administration Ampicillin Sodium 2 gm in 100 mls @ 200 mls/hr 12/10/24 18:00 12/11/24 05:04 Ampicillin 2 Gm/Ns 100 Ml IVPB 12/23/24 22:00 200 mls/hr Q6HR GLORY Administration Lidocaine 1 patch 12/11/24 09:00 Lidocaine 5% Patch TOPICAL DAILY [facility] Methocarbamol 750 mg 12/11/24 07:30 Methocarbamol 750 Mg Tablet PO Q8HR [facility] Ondansetron HCl 4 mg 12/05/24 01:09 Ondansetron Inj 4 Mg/2 Ml Vial IV PUSH Q4H PRN Nausea Ondansetron HCl 4 mg 12/10/24 10:15 Ondansetron Hcl Odt 4 Mg Tablet PO Q8H PRN nausea and vomiting Oxycodone HCl 7.5 mg 12/10/24 10:15 12/10/24 11:28 Oxycodone Hcl (*Crx) 2.5 Mg Tab Ir PO 7.5 mg Q4H PRN Administration PAIN 7-10 Oxycodone HCl 5 mg 12/10/24 11:31 12/10/24 20:44 Oxycodone Hcl (*Crx) 5 Mg Tab Ir PO 5 mg Q4H PRN Administration Pain Rated 4-6 Polyethylene Glycol 17 gm 12/06/24 09:00 12/10/24 09:30 Polyethylene Glycol 3350 17 Gm Powd.Pack PO 17 gm DAILY GLORY Administration Potassium Chloride 40 meq 12/08/24 17:00 12/10/24 17:24 Potassium Chloride 20 Meq Er Tablet PO 40 meq TID GLORY Administration Rosuvastatin Calcium 40 mg 12/11/24 09:00 Rosuvastatin 20 Mg Tablet PO DAILY GLORY Sertraline HCl 100 mg 12/06/24 09:00 12/10/24 09:31 Sertraline Hcl 50 Mg Tablet PO 100 mg DAILY GLORY Administration Sodium Chloride 10 ml 12/05/24 22:00 12/11/24 05:08 Central Line Flush IV PUSH 10 ml Q8HR GLORY Administration Sodium Chloride 10 ml 12/05/24 14:31 Central Line Flush IV PUSH PRN PRN with TPN bag changes Sodium Chloride 20 ml 12/05/24 14:31 12/11/24 05:08 Central Line Flush IV PUSH 20 ml PRN PRN Administration after blood draws Trazodone HCl 50 mg 12/10/24 21:00 12/10/24 20:47 Trazodone Hcl 50 Mg Tablet PO Not Given HS GLORY Warfarin Sodium 5 mg 12/08/24 17:00 12/10/24 17:24 Warfarin (*Pbkc) 5 Mg Tablet PO 5 mg DAILY@1700 GLORY Administration Radiology Results: ITS Impressions Chest CTA 12/04/24 05:22 Impression: No evidence of pulmonary embolus, aortic dissection, or aortic aneurysm. Small left pleural effusion and minimal right pleural effusion, with left lower lobe atelectasis and probable minimal pulmonary edema. Correlate clinically for left lower lobe pneumonia. 4.5 x 2.4 x 4.5 cm hematoma just superficial to the left pectoralis major muscle with small bubble of air within it. Correlate for recent trauma or procedure in this region. T10 compression fracture is new from prior exam. Large Schmorl's node at the superior plate of T11 and mild erosive change at the inferior endplate of T10 are also new. These are likely degenerative/related to fracture, however osteomyelitis/discitis is a potential alternative consideration. If this latter diagnosis is of clinical concern, then MRI with and without contrast recommended for further evaluation. Abdomen Ultrasound 12/06/24 07:41 IMPRESSION: 1: Status post cholecystectomy with expected prominence of the common bile duct. If there is concern for obstructing stone or mass in the duct, consider MRCP study. Chest X-Ray 12/10/24 11:40 Impression: 1: Cardiomegaly with mild interstitial edema. 2: Left basilar airspace consolidation a represent atelectasis and/or superimposed pneumonia. Labs Labs: Laboratory Results - last 24 hr 12/11/24 05:21 WBC 7.1 RBC 3.50 L Hgb 9.4 L Hct 32.9 L MCV 94.0 MCH 26.9 MCHC 28.6 L RDW 18.6 H Plt Count 203 MPV 10.7 H PT 31.7 H D INR 3.2 Sodium 142 Potassium 4.4 Chloride 99 Carbon Dioxide 35 H Anion Gap 8 BUN 21 H Creatinine 1.31 H Estim Creat Clear Calc 30 Estimated GFR 40 L Glucose 101 Calcium 9.3 Magnesium 2.0 Quality VTE Prophylaxis VTE prophylaxis: mechanical ordered
[2024-12-11] MEDS: LIDOCAINE 5% PATCH 1 PATCH TOPICAL (09:16)
[2024-12-11] MEDS: ROSUVASTATIN 20 MG TABLET 40 MG PO (09:17)
[2024-12-11] MEDS: FUROSEMIDE INJ 40 MG/4 ML VIAL IV PUSH ×2 (09:19→17:52)
[2024-12-11] MEDS: POTASSIUM CHLORIDE 20 MEQ ER TABLET 40 MEQ PO ×3 (09:19→17:52)
[2024-12-11] MEDS: FAMOTIDINE 20 MG TABLET 40 MG PO (09:20)
[2024-12-11] MEDS: SERTRALINE HCL 50 MG TABLET 100 MG PO (09:21)
[2024-12-11] MEDS: FLUTICASONE PROPIONATE 0.05% NA SPR 16 GM BTL (*BKC) 2 SPRAY NASAL (09:22)
[2024-12-11] MEDS: GABAPENTIN 300 MG CAPSULE PO ×3 (09:22→17:52)
[2024-12-11] MEDS: FERROUS SULFATE 325 MG TABLET DR BY MOUTH (09:22)
[2024-12-11] MEDS: oxyCODONE HCL (*CRX) 5 MG TAB IR PO ×2 (09:29→17:51)
[2024-12-11] MEDS: methocarbamoL 750 MG TABLET PO ×2 (13:04→21:17)
--- NOTE | 2024-12-11 15:09 | P.PNIM_ITS ---
Progress Note: A&P Assessment and Plan (1) Hospital acquired PNA: Code(s): J18.9 - Pneumonia, unspecified organism; Y95 - Nosocomial condition Status: Acute Assessment and Plan: CXR: Left basilar atelectasis versus pneumonia with possible Effusion - Risk Factors: none - Complicating Factors: none - started on HAP: Cefepime & Vanc (discontinued due to (-) MRSA) - change to iv ampicilin and iv rocephin (2) Acute and chronic respiratory failure with hypoxia: Code(s): J96.21 - Acute and chronic respiratory failure with hypoxia Status: Acute Assessment and Plan: * Symptoms: Shortness of breath * Chest XR: Left basilar atelectasis versus pneumonia with possible Effusion * dc breathing treatments (3) Transaminitis: Code(s): R74.01 - Elevation of levels of liver transaminase levels Status: Acute Assessment and Plan: * Upon admission:AST 239, ALT 137 * Repeat: 183, 144 respectively * Physical exam benign, no abdominal pain * RUQ US reveiwed with pt (4) S/P AVR (aortic valve replacement): Code(s): Z95.2 - Presence of prosthetic heart valve Status: Acute (5) H/O mitral valve repair: Code(s): Z98.890 - Other specified postprocedural states Status: Acute (6) H/O mechanical aortic valve replacement: Code(s): Z95.2 - Presence of prosthetic heart valve Status: Acute (7) Cardiomyopathy: Code(s): I42.9 - Cardiomyopathy, unspecified Status: Acute Assessment and Plan: pt switched to iv lasix increase dose more diuresis D/w pulmology MD (8) HTN (hypertension): Code(s): I10 - Essential (primary) hypertension Status: Acute Assessment and Plan: watch blood pressures chronic and stable (9) Anemia: Code(s): D64.9 - Anemia, unspecified Status: Acute Assessment and Plan: order iv venofer today for hb of 7 hb improved to 8.7 continue ferrous sulphate Plan patient with chronic medical conditions and in and out of hospsital had developed hospital aquired PNA and with underling COPD, patient is being treated with ceftriaxon and Ampicillin, patient is seen by her vp organizational development and clinical symptoms are improving, repeat chest x-ray shows persisting pneumonia, patient has mechanical valve replaced in 2021 taking warfarin and her INR today is 3.2 will hold warfarin today goal is 2-3 INR. resume tomorrow, patient with significant cardiac history acute on chronic heart failure seen by her heavy truck mechanic and recommended to continue diuresed the patient with IV Lasix 40mg BID, will monitor. severe hypokalaemia pt had potassium rider continue potassium supplements dvt prop pt is on coumadin monitor INRS Subjective Date/time seen: 12/11/24 15:09 Interval history: Ms. 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 She was recently hospitalized at [place] for bacteremia with Enterococcus and then discharged on 6 weeks of antibiotics by a right-sided PICC line which was scheduled to be completed in 01/2025. 12/05/2024 Patient sitting comfortably in bed at time of exam. Vital signs appear to be stable with a pulse rate of 97 and O2 saturation of 94% on 2 L NC, however patient states shortness of breath has improved when compared to yesterday. Pending transfer to [facility] at this time. 12/06/2024 Pt needing 3 liters of oxygen today cxr and abg ordered and reviewed Order iv lasix for pt for pulmonary edema Order venofer for low hb Pt awaiting transfer to [facility] recent pacemaker removal Pt had all her cardiac procedures in [place] 12/07/2024 Pts coumadin restarted Pt restarted on her ampicillin Pt having low potassium krider ordered for pt Pt still sob pt started on iv lasix D/w pt and son by the bedside Awaiting transfer to [facility] D/w Dr Reyes 12/08/2024 D/w pulmology ok to continue present care with iv abx and iv lasix pt still sob increase diuresis today pt had potassium rider continue oral potassium meds pt awaiting [place] transfer bed INR subtherapeutic continue coumadin dosing patient with chronic medical conditions and in and out of hospsital had developed hospital aquired PNA and with underling COPD, patient is being treated with ceftriaxon and Ampicillin, patient is seen by her vp organizational development and clinical symptoms are improving, repeat chest x-ray shows persisting pneumonia, patient has mechanical valve replaced in 2021 taking warfarin and her INR today is 3.2 will hold warfarin today goal is 2-3 INR. resume tomorrow, patient with significant cardiac history acute on chronic heart failure seen by her heavy truck mechanic and recommended to continue diuresed the patient with IV Lasix 40mg BID, will monitor. Review of Systems Review of Systems: Ongoing SOB All systems reviewed & are unremarkable except as noted in HPI and below (HPI) Exam Narrative: Patient is comfortable, NAD HEENT: eyes are clear and none icteric LUNGS:CTA HEART: RR S1S2 ABD: BS+, Soft and nontender Lower extremities: no edema SKIN: nonjaundiced Neuro: grossly intact. Objective Data Vital Signs Vital Signs: Vital Signs - 24 hr 12/10/24 16:00 12/10/24 20:00 12/10/24 20:27 Temperature 36.7 C Pulse Rate 63 69 70 Respiratory Rate 18 Blood Pressure 113/68 Pulse Oximetry 100 Oxygen Delivery Oxygen Flow Rate 12/10/24 20:42 12/11/24 00:00 12/11/24 04:00 Temperature Pulse Rate 70 62 65 Respiratory Rate Blood Pressure Pulse Oximetry Oxygen Delivery Oxygen Flow Rate 12/11/24 05:09 12/11/24 09:30 12/11/24 11:22 Temperature 36.2 C L Pulse Rate 68 66 Respiratory Rate 16 Blood Pressure 108/66 Pulse Oximetry 99 Oxygen Delivery Nasal Cannula Oxygen Flow Rate 2 12/11/24 13:00 12/11/24 14:00 Temperature 36.1 C L Pulse Rate 69 Respiratory Rate 18 Blood Pressure 108/96 H Pulse Oximetry 94 Oxygen Delivery Nasal Cannula Oxygen Flow Rate 2 Intake/Output Intake/Output: Intake & Output 12/08/24 12/09/24 12/10/24 12/11/24 23:59 23:59 23:59 23:59 Intake Total 980 1430 1380 1150 Output Total 1600 1150 1000 350 Balance -620 280 380 800 Meds/Results Medications: Active Medications Generic Name Dose Route Start Last Admin Trade Name Freq PRN Reason Stop Dose Admin Acetaminophen 650 mg 12/05/24 01:09 12/05/24 17:11 Acetaminophen 325 Mg Tablet PO 650 mg Q4H PRN Administration Mild Pain (1-3) or Fever Albuterol 1 puff 12/05/24 15:27 12/06/24 01:43 Albuterol Sulfate (*Sp) Aerosol 1 Puff INHALATION 1 puff Q4H PRN Administration Shortness Of Breath Carvedilol 12.5 mg 12/10/24 11:00 12/10/24 20:42 Carvedilol 12.5 Mg Tablet PO 12.5 mg Q12HR GLORY Administration Cyclobenzaprine HCl 10 mg 12/10/24 10:15 Cyclobenzaprine Hcl 10 Mg Tablet PO BID PRN muscle spasm Famotidine 40 mg 12/06/24 09:00 12/11/24 09:20 Famotidine 20 Mg Tablet PO 40 mg DAILY GLORY Administration Ferrous Sulfate 325 mg 12/06/24 09:00 12/11/24 09:22 Ferrous Sulfate [address] BY MOUTH 325 mg DAILY GLORY Administration Fluticasone Propionate 2 spray 12/06/24 09:00 12/11/24 09:22 Fluticasone Propionate 0.05% Na Spr 16 Gm Btl (*Bkc) NASAL 2 spray DAILY GLORY Administration Fluticasone/Umeclidinium/Vilanterol 1 puff 12/11/24 08:00 12/11/24 09:00 Fluticasone/Umeclidin/Vilanter 100-62.5-25 Mcg Ellipta INHALATION 1 puff DAILYRT GLORY Administration Furosemide 40 mg 12/09/24 09:00 12/11/24 09:19 Furosemide Inj 40 Mg/4 Ml Vial IV PUSH 40 mg BID GLORY Administration Gabapentin 300 mg 12/05/24 17:00 12/11/24 13:04 Gabapentin 300 Mg Capsule PO 300 mg TID GLORY Administration Hydrocortisone 1 applic 12/10/24 17:00 12/11/24 09:17 Hydrocortisone 1% 30 Gm Cream TOPICAL Not Given BID GLORY Hydroxyzine HCl 12.5 mg 12/05/24 12:27 12/09/24 17:23 Hydroxyzine Hcl 12.5 Mg Tablet PO 12.5 mg Q6H PRN Administration Agitation Hydroxyzine HCl 10 mg 12/10/24 10:15 Hydroxyzine Hcl 10 Mg Tablet PO Q4H PRN anxiety Ceftriaxone Sodium 2 gm in 100 mls @ 200 mls/hr 12/07/24 14:00 12/11/24 13:02 Rocephin 2 Gm/Ns 100 Ml IVPB 12/23/24 23:59 200 mls/hr Q12H GLORY Administration Ampicillin Sodium 2 gm in 100 mls @ 200 mls/hr 12/10/24 18:00 12/11/24 13:02 Ampicillin 2 Gm/Ns 100 Ml IVPB 12/23/24 22:00 200 mls/hr Q6HR GLORY Administration Lidocaine 1 patch 12/11/24 09:00 12/11/24 09:16 Lidocaine 5% Patch TOPICAL 1 patch DAILY GLORY Administration Methocarbamol 750 mg 12/11/24 07:30 12/11/24 13:04 Methocarbamol 750 Mg Tablet PO 750 mg Q8HR GLORY Administration Ondansetron HCl 4 mg 12/05/24 01:09 Ondansetron Inj 4 Mg/2 Ml Vial IV PUSH Q4H PRN Nausea Ondansetron HCl 4 mg 12/10/24 10:15 Ondansetron Hcl Odt 4 Mg Tablet PO Q8H PRN nausea and vomiting Oxycodone HCl 7.5 mg 12/10/24 10:15 12/10/24 11:28 Oxycodone Hcl (*Crx) 2.5 Mg Tab Ir PO 7.5 mg Q4H PRN Administration PAIN 7-10 Oxycodone HCl 5 mg 12/10/24 11:31 12/11/24 09:29 Oxycodone Hcl (*Crx) 5 Mg Tab Ir PO 5 mg Q4H PRN Administration Pain Rated 4-6 Polyethylene Glycol 17 gm 12/06/24 09:00 12/11/24 09:22 Polyethylene Glycol 3350 17 Gm Powd.Pack PO Not Given DAILY GLORY Potassium Chloride 40 meq 12/08/24 17:00 12/11/24 13:03 Potassium Chloride 20 Meq Er Tablet PO 40 meq TID GLORY Administration Rosuvastatin Calcium 40 mg 12/11/24 09:00 12/11/24 09:17 Rosuvastatin 20 Mg Tablet PO 40 mg DAILY GLORY Administration Sertraline HCl 100 mg 12/06/24 09:00 12/11/24 09:21 Sertraline Hcl 50 Mg Tablet PO 100 mg DAILY GLORY Administration Sodium Chloride 10 ml 12/05/24 22:00 12/11/24 05:08 Central Line Flush IV PUSH 10 ml Q8HR GLORY Administration Sodium Chloride 10 ml 12/05/24 14:31 Central Line Flush IV PUSH PRN PRN with TPN bag changes Sodium Chloride 20 ml 12/05/24 14:31 12/11/24 05:08 Central Line Flush IV PUSH 20 ml PRN PRN Administration after blood draws Trazodone HCl 50 mg 12/10/24 21:00 12/10/24 20:47 Trazodone Hcl 50 Mg Tablet PO Not Given HS GLORY Warfarin Sodium 5 mg 12/08/24 17:00 12/10/24 17:24 Warfarin (*Pbkc) 5 Mg Tablet PO 5 mg DAILY@1700 GLORY Administration Radiology Results: ITS Impressions Chest CTA 12/04/24 05:22 Impression: No evidence of pulmonary embolus, aortic dissection, or aortic aneurysm. Small left pleural effusion and minimal right pleural effusion, with left lower lobe atelectasis and probable minimal pulmonary edema. Correlate clinically for left lower lobe pneumonia. 4.5 x 2.4 x 4.5 cm hematoma just superficial to the left pectoralis major muscle with small bubble of air within it. Correlate for recent trauma or procedure in this region. T10 compression fracture is new from prior exam. Large Schmorl's node at the superior plate of T11 and mild erosive change at the inferior endplate of T10 are also new. These are likely degenerative/related to fracture, however osteomyelitis/discitis is a potential alternative consideration. If this latter diagnosis is of clinical concern, then MRI with and without contrast recommended for further evaluation. Abdomen Ultrasound 12/06/24 07:41 IMPRESSION: 1: Status post cholecystectomy with expected prominence of the common bile duct. If there is concern for obstructing stone or mass in the duct, consider MRCP study. Chest X-Ray 12/10/24 11:40 Impression: 1: Cardiomegaly with mild interstitial edema. 2: Left basilar airspace consolidation a represent atelectasis and/or superimposed pneumonia. Labs Labs: Laboratory Results - last 24 hr 12/11/24 05:21 WBC 7.1 RBC 3.50 L Hgb 9.4 L Hct 32.9 L MCV 94.0 MCH 26.9 MCHC 28.6 L RDW 18.6 H Plt Count 203 MPV 10.7 H PT 31.7 H D INR 3.2 Sodium 142 Potassium 4.4 Chloride 99 Carbon Dioxide 35 H Anion Gap 8 BUN 21 H Creatinine 1.31 H Estim Creat Clear Calc 30 Estimated GFR 40 L Glucose 101 Calcium 9.3 Magnesium 2.0 Quality VTE Prophylaxis VTE prophylaxis: mechanical ordered
[2024-12-11] MEDS: SACCHAROMYCES BOULARDII 250 MG CAPSULE PO (17:52)
[2024-12-11] MEDS: WARFARIN (*PBKC) 5 MG TABLET PO (17:52)
[2024-12-11] MEDS: traZODone HCL 50 MG TABLET PO (21:16)
[2024-12-12] VITALS (13 sets, daily range): BP systolic 88–108; BP diastolic 46–60; PULSE 65–85; RESP 16–20; TEMP 36.2; O2SAT 93–100
[2024-12-12] MEDS: AMPICILLIN 2 GM/NS 100 ML 2 GM/100 ML BAG IVPB ×4 (01:07→22:00)
--- NOTE | 2024-12-12 01:36 | PC.NURSE ---
TOLD LIONEL RICCI ON 12/08/24 OF 2.6 POTASSIUM. WILL REACH OUT FOR HER TO PUT IN CRITICAL LAB
[2024-12-12] MEDS: cefTRIAXone 2 GM/NS 100 ML 2 GM/100 ML BAG IVPB ×2 (01:56→15:02)
[2024-12-12] MEDS: methocarbamoL 750 MG TABLET PO ×3 (05:47→20:15)
[2024-12-12] MEDS: CENTRAL LINE FLUSH 10 ML IV PUSH ×3 (05:50→22:00)
[2024-12-12 07:04] LABS: Hematocrit 33.5 % (37.0-47.0); Hemoglobin 9.7 g/dL (12.0-15.0); Mean Corpuscular Hemoglobin 26.6 pg (26-34); Mean Corpuscular Volume 91.8 fl (80-100); Mean Platelet Volume 11.4 fl (7.4-10.4); Platelet Count Result 231 k/mm3 (150-375); Red Blood Count 3.65 M/mm3 (4.2-5.4); Red Cell Distribution Width 17.9 % (11.5-14.5); White Blood Count 7.6 K/mm3 (4.5-10.0)
[2024-12-12 07:18] LABS: INR 3.4; Prothrombin Time 33.4 Seconds (11.1-14.7)
--- NOTE | 2024-12-12 07:51 | PM.PNCARD ---
Progress Note: A&P Assessment and Plan (1) Acute on chronic heart failure with preserved ejection fraction: Code(s): I50.33 - Acute on chronic diastolic (congestive) heart failure Status: Acute Plan Acute on chronic heart failure with preserved LVEF Acute hypoxic respiratory failure Possible pneumonia Coronary artery disease s/p 1V CABG with SVG to RCA in 2021 Mechanical aortic valve (Lance mattson, 2019) Mitral valve repair [facility] 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 Please monitor strict I/Os. -Continue Coreg 12.5mg BID. -Plan to restart her on Spironolactone 25mg once daily if renal function remains stable. (BUN/SCr 29/07.31 yesterday, BMP today pending. Will hold off for now to avoid hypotension with IV diuresis given blood pressures are currently soft. -Continue Warfarin for mechanical aortic valve, PAF. Goal INR of 2-3. INR 3.4 today. Warfarin had been placed on hold, would recommend decreasing warfarin dose vs. holding -Continue Atorvastatin. -Antibiotic management as per Hospitalist. Subjective Date/time seen: 12/12/24 07:51 Interval history: Cardiology follow up visit States she is feeling better than yesterday but still has shortness of breath. No chest pain, palpitations, swelling. 12/12/2024: Feeling about the same today as she did yesterday but does not have any specific complaints. Review of Systems Review of Systems: All systems reviewed & are unremarkable except as noted in HPI and below (HPI) Exam Const: General: no acute distress Other: Chronically ill appearing female HENMT: Mouth: Yes moist mucous membranes Resp: Effort & Inspection: normal respiratory effort Auscultation: crackles, wheezes and diminished lung sounds Other: On supplemental oxygen Cardio: Rhythm: abnormal rhythm irregularly irregular Other: + Mechanical click. No lower extremity edema Urinary Catheter: Urinary Catheter: patent and draining Skin: General skin exam: normal color Neuro: Speech: normal speech Psych: Mental Status: mental status grossly normal Affect: normal affect Objective Data Vital Signs Vital Signs: Vital Signs - 24 hr 12/11/24 09:30 12/11/24 11:22 12/11/24 12:00 Temperature Pulse Rate 66 75 Respiratory Rate Blood Pressure Pulse Oximetry Oxygen Delivery Nasal Cannula Oxygen Flow Rate 2 12/11/24 13:00 12/11/24 14:00 12/11/24 16:00 Temperature 36.1 C L Pulse Rate 69 76 Respiratory Rate 18 Blood Pressure 108/96 H Pulse Oximetry 94 Oxygen Delivery Nasal Cannula Oxygen Flow Rate 2 12/11/24 20:00 12/11/24 20:30 12/11/24 21:15 Temperature Pulse Rate 85 58 L Respiratory Rate Blood Pressure Pulse Oximetry 94 Oxygen Delivery Nasal Cannula Oxygen Flow Rate 2 12/11/24 22:00 12/12/24 00:00 12/12/24 04:00 Temperature 36.2 C L Pulse Rate 60 76 80 Respiratory Rate 18 Blood Pressure 103/59 L Pulse Oximetry 90 Oxygen Delivery Oxygen Flow Rate 12/12/24 06:00 Temperature 36.2 C L Pulse Rate 69 Respiratory Rate 18 Blood Pressure 108/60 Pulse Oximetry 100 Oxygen Delivery Oxygen Flow Rate Intake/Output Intake/Output: Intake & Output 12/09/24 12/10/24 12/11/24 12/12/24 23:59 23:59 23:59 23:59 Intake Total 1430 1380 1650 100 Output Total 1150 1000 1150 900 Balance 280 380 500 -800 Meds/Results Medications: Active Medications Generic Name Dose Route Start Last Admin Trade Name Freq PRN Reason Stop Dose Admin Acetaminophen 650 mg 12/05/24 01:09 12/05/24 17:11 Acetaminophen 325 Mg Tablet PO 650 mg Q4H PRN Administration Mild Pain (1-3) or Fever Albuterol 1 puff 12/05/24 15:27 12/06/24 01:43 Albuterol Sulfate (*Sp) Aerosol 1 Puff INHALATION 1 puff Q4H PRN Administration Shortness Of Breath Carvedilol 12.5 mg 12/10/24 11:00 12/11/24 21:15 Carvedilol 12.5 Mg Tablet PO Not Given Q12HR GLORY Cyclobenzaprine HCl 10 mg 12/10/24 10:15 Cyclobenzaprine Hcl 10 Mg Tablet PO BID PRN muscle spasm Famotidine 40 mg 12/06/24 09:00 12/11/24 09:20 Famotidine 20 Mg Tablet PO 40 mg DAILY GLORY Administration Ferrous Sulfate 325 mg 12/06/24 09:00 12/11/24 09:22 Ferrous Sulfate [address] BY MOUTH 325 mg DAILY GLORY Administration Fluticasone Propionate 2 spray 12/06/24 09:00 12/11/24 09:22 Fluticasone Propionate 0.05% Na Spr 16 Gm Btl (*Bkc) NASAL 2 spray DAILY GLORY Administration Fluticasone/Umeclidinium/Vilanterol 1 puff 12/11/24 08:00 12/11/24 09:00 Fluticasone/Umeclidin/Vilanter 100-62.5-25 Mcg Ellipta INHALATION 1 puff DAILYRT GLORY Administration Furosemide 40 mg 12/09/24 09:00 12/11/24 17:52 Furosemide Inj 40 Mg/4 Ml Vial IV PUSH 40 mg BID GLORY Administration Gabapentin 300 mg 12/05/24 17:00 12/11/24 17:52 Gabapentin 300 Mg Capsule PO 300 mg TID GLORY Administration Hydroxyzine HCl 12.5 mg 12/05/24 12:27 12/09/24 17:23 Hydroxyzine Hcl 12.5 Mg Tablet PO 12.5 mg Q6H PRN Administration Agitation Hydroxyzine HCl 10 mg 12/10/24 10:15 Hydroxyzine Hcl 10 Mg Tablet PO Q4H PRN anxiety Ceftriaxone Sodium 2 gm in 100 mls @ 200 mls/hr 12/07/24 14:00 12/12/24 01:56 Rocephin 2 Gm/Ns 100 Ml IVPB 12/23/24 23:59 200 mls/hr Q12H GLORY Administration Ampicillin Sodium 2 gm in 100 mls @ 200 mls/hr 12/10/24 18:00 12/12/24 05:45 Ampicillin 2 Gm/Ns 100 Ml IVPB 12/23/24 22:00 200 mls/hr Q6HR GLORY Administration Lidocaine 1 patch 12/11/24 09:00 12/11/24 09:16 Lidocaine 5% Patch TOPICAL 1 patch DAILY GLORY Administration Methocarbamol 750 mg 12/11/24 07:30 12/12/24 05:47 Methocarbamol 750 Mg Tablet PO 750 mg Q8HR GLORY Administration Ondansetron HCl 4 mg 12/05/24 01:09 Ondansetron Inj 4 Mg/2 Ml Vial IV PUSH Q4H PRN Nausea Ondansetron HCl 4 mg 12/10/24 10:15 Ondansetron Hcl Odt 4 Mg Tablet PO Q8H PRN nausea and vomiting Oxycodone HCl 7.5 mg 12/10/24 10:15 12/10/24 11:28 Oxycodone Hcl (*Crx) 2.5 Mg Tab Ir PO 7.5 mg Q4H PRN Administration PAIN 7-10 Oxycodone HCl 5 mg 12/10/24 11:31 12/11/24 17:51 Oxycodone Hcl (*Crx) 5 Mg Tab Ir PO 5 mg Q4H PRN Administration Pain Rated 4-6 Polyethylene Glycol 17 gm 12/06/24 09:00 12/11/24 09:22 Polyethylene Glycol 3350 17 Gm Powd.Pack PO Not Given DAILY [facility] Potassium Chloride 40 meq 12/08/24 17:00 12/11/24 17:52 Potassium Chloride 20 Meq Er Tablet PO 40 meq TID GLORY Administration Rosuvastatin Calcium 40 mg 12/11/24 09:00 12/11/24 09:17 Rosuvastatin 20 Mg Tablet PO 40 mg DAILY GLORY Administration Saccharomyces Boulardii 250 mg 12/11/24 17:00 12/11/24 17:52 Saccharomyces Boulardii 250 Mg Capsule PO 250 mg TID GLORY Administration Sertraline HCl 100 mg 12/06/24 09:00 12/11/24 09:21 Sertraline Hcl 50 Mg Tablet PO 100 mg DAILY GLORY Administration Sodium Chloride 10 ml 12/05/24 22:00 12/12/24 05:50 Central Line Flush IV PUSH 10 ml Q8HR GLORY Administration Sodium Chloride 10 ml 12/05/24 14:31 Central Line Flush IV PUSH PRN PRN with TPN bag changes Sodium Chloride 20 ml 12/05/24 14:31 12/11/24 05:08 Central Line Flush IV PUSH 20 ml PRN PRN Administration after blood draws Trazodone HCl 50 mg 12/10/24 21:00 12/11/24 21:16 Trazodone Hcl 50 Mg Tablet PO 50 mg HS GLORY Administration Warfarin Sodium 5 mg 12/08/24 17:00 12/11/24 17:52 Warfarin (*Pbkc) 5 Mg Tablet PO 5 mg DAILY@1700 GLORY Administration Radiology Results: ITS Impressions Chest CTA 12/04/24 05:22 Impression: No evidence of pulmonary embolus, aortic dissection, or aortic aneurysm. Small left pleural effusion and minimal right pleural effusion, with left lower lobe atelectasis and probable minimal pulmonary edema. Correlate clinically for left lower lobe pneumonia. 4.5 x 2.4 x 4.5 cm hematoma just superficial to the left pectoralis major muscle with small bubble of air within it. Correlate for recent trauma or procedure in this region. T10 compression fracture is new from prior exam. Large Schmorl's node at the superior plate of T11 and mild erosive change at the inferior endplate of T10 are also new. These are likely degenerative/related to fracture, however osteomyelitis/discitis is a potential alternative consideration. If this latter diagnosis is of clinical concern, then MRI with and without contrast recommended for further evaluation. Abdomen Ultrasound 12/06/24 07:41 IMPRESSION: 1: Status post cholecystectomy with expected prominence of the common bile duct. If there is concern for obstructing stone or mass in the duct, consider MRCP study. Chest X-Ray 12/10/24 11:40 Impression: 1: Cardiomegaly with mild interstitial edema. 2: Left basilar airspace consolidation a represent atelectasis and/or superimposed pneumonia. Labs Labs: Laboratory Results - last 24 hr 12/12/24 06:35 WBC 7.6 RBC 3.65 L Hgb 9.7 L Hct 33.5 L MCV 91.8 MCH 26.6 MCHC 29.0 L RDW 17.9 H Plt Count 231 MPV 11.4 H PT 33.4 H INR 3.4 Quality VTE Prophylaxis VTE prophylaxis: mechanical ordered
[2024-12-12] MEDS: ROSUVASTATIN 20 MG TABLET 40 MG PO (08:28)
[2024-12-12] MEDS: SERTRALINE HCL 50 MG TABLET 100 MG PO (08:29)
[2024-12-12] MEDS: POTASSIUM CHLORIDE 20 MEQ ER TABLET 40 MEQ PO ×2 (08:29→12:08)
[2024-12-12] MEDS: SACCHAROMYCES BOULARDII 250 MG CAPSULE PO ×3 (08:30→17:28)
[2024-12-12] MEDS: carvediloL 12.5 MG TABLET PO ×2 (08:30→20:15)
[2024-12-12] MEDS: FUROSEMIDE INJ 40 MG/4 ML VIAL IV PUSH (08:30)
[2024-12-12] MEDS: GABAPENTIN 300 MG CAPSULE PO ×3 (08:31→17:28)
[2024-12-12] MEDS: FAMOTIDINE 20 MG TABLET 40 MG PO (08:31)
[2024-12-12] MEDS: FERROUS SULFATE 325 MG TABLET DR BY MOUTH (08:31)
[2024-12-12] MEDS: FLUTICASONE PROPIONATE 0.05% NA SPR 16 GM BTL (*BKC) 2 SPRAY NASAL (08:34)
[2024-12-12 09:16] LABS: Anion Gap 11 mmol/L (4-12); Blood Urea Nitrogen 24 mg/dL (7-17); Calcium 9.3 mg/dL (8.4-10.2); Carbon Dioxide 34 mmol/L (22-30); Chloride 92 mmol/L (98-107); Estimated CRCL calculation 25 ml/min; Estimated Glomerular Filt Rate 34; Glucose 101 mg/dL (65-110); Magnesium 1.9 mg/dL (1.6-2.3); Potassium 3.6 mmol/L (3.4-5.0); Sodium 137 mmol/L (137-145)
[2024-12-12] MEDS: FLUTICASONE/UMECLIDIN/VILANTER 100-62.5-25 MCG ELLIPTA 1 PUFF INHALATION (09:22)
--- NOTE | 2024-12-12 10:14 | PCNWS ---
Weekly nutritional screen. Patient is tolerating current Heart healthy diet with adequate intake, 40-100%. No weight loss reported. No nutritional needs at this time.
[2024-12-12] MEDS: oxyCODONE HCL (*CRX) 5 MG TAB IR PO (12:09)
--- NOTE | 2024-12-12 15:19 | PM.IMPN ---
Progress Note: A&P Assessment and Plan (1) Hospital acquired PNA: Code(s): J18.9 - Pneumonia, unspecified organism; Y95 - Nosocomial condition Status: Acute Assessment and Plan: CXR: Left basilar atelectasis versus pneumonia with possible Effusion - Risk Factors: none - Complicating Factors: none - started on HAP: Cefepime & Vanc (discontinued due to (-) MRSA) - change to iv ampicilin and iv rocephin (2) Acute and chronic respiratory failure with hypoxia: Code(s): J96.21 - Acute and chronic respiratory failure with hypoxia Status: Acute Assessment and Plan: Symptoms: Shortness of breath Chest XR: Left basilar atelectasis versus pneumonia with possible Effusion dc breathing treatments (3) Transaminitis: Code(s): R74.01 - Elevation of levels of liver transaminase levels Status: Acute Assessment and Plan: Upon admission:AST 239, ALT 137 Repeat: 183, 144 respectively Physical exam benign, no abdominal pain RUQ US reveiwed with pt (4) S/P AVR (aortic valve replacement): Code(s): Z95.2 - Presence of prosthetic heart valve Status: Acute (5) H/O mitral valve repair: Code(s): Z98.890 - Other specified postprocedural states Status: Acute (6) H/O mechanical aortic valve replacement: Code(s): Z95.2 - Presence of prosthetic heart valve Status: Acute (7) Cardiomyopathy: Code(s): I42.9 - Cardiomyopathy, unspecified Status: Acute Assessment and Plan: pt switched to iv lasix increase dose more diuresis D/w pulmology MD (8) HTN (hypertension): Code(s): I10 - Essential (primary) hypertension Status: Acute Assessment and Plan: watch blood pressures chronic and stable (9) Anemia: Code(s): D64.9 - Anemia, unspecified Status: Acute Assessment and Plan: order iv venofer today for hb of 7 hb improved to 8.7 continue ferrous sulphate Plan patient with chronic medical conditions and in and out of hospital had developed hospital aquired PNA as well 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 today INR is 3.4 will reduce Warfarin to 4mg from 5mg, patient with significant cardiac history acute on chronic heart failure seen by her casing trimmer and recommended to continue diuresed the patient with IV Lasix 40mg BID, will monitor. severe hypokalaemia pt had potassium rider continue potassium supplements dvt prop pt is on coumadin monitor INRS Subjective Date/time seen: 12/12/24 15:19 Interval history: Ms. Junior is a 69-year-old female with history of AFib status post pacemaker, CKD, recent T10/T11 vertebral osteomyelitis, bacterial endocarditis, infected pacemaker hardware status post removal on 11/25/2024 at [place], heparin-induced thrombocytopenia, aortic valve replacement/aortic grafting replacement in 2021, previous ECMO in 2021 due to mediastinum night is and aortic/ventricular injury requiring repair. She was recently hospitalized at [place] for bacteremia with Enterococcus and then discharged on 6 weeks of antibiotics by a right-sided PICC line which was scheduled to be completed in 01/2025. 12/05/2024 Patient sitting comfortably in bed at time of exam. Vital signs appear to be stable with a pulse rate of 97 and O2 saturation of 94% on 2 L NC, however patient states shortness of breath has improved when compared to yesterday. Pending transfer to [facility] at this time. 12/06/2024 Pt needing 3 liters of oxygen today cxr and abg ordered and reviewed Order iv lasix for pt for pulmonary edema Order venofer for low hb Pt awaiting transfer to [facility] recent pacemaker removal Pt had all her cardiac procedures in [place] 12/07/2024 Pts coumadin restarted Pt restarted on her ampicillin Pt having low potassium krider ordered for pt Pt still sob pt started on iv lasix D/w pt and son by the bedside Awaiting transfer to [facility] D/w Dr Reyes 12/08/2024 D/w pulmology ok to continue present care with iv abx and iv lasix pt still sob increase diuresis today pt had potassium rider continue oral potassium meds pt awaiting [place] transfer bed INR subtherapeutic continue coumadin dosing patient with chronic medical conditions and in and out of hospital had developed hospital aquired PNA as well 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 today INR is 3.4 will reduce Warfarin to 4mg from 5mg, patient with significant cardiac history acute on chronic heart failure seen by her casing trimmer and recommended to continue diuresed the patient with IV Lasix 40mg BID, will monitor. Review of Systems Review of Systems: All systems reviewed & are unremarkable except as noted in HPI and below (HPI) Exam Narrative: Patient is comfortable, NAD HEENT: eyes are clear and none icteric LUNGS:CTA HEART: RR S1S2 ABD: BS+, Soft and nontender Lower extremities: no edema SKIN: nonjaundiced Neuro: grossly intact. Objective Data Vital Signs Vital Signs: Vital Signs - 24 hr 12/11/24 16:00 12/11/24 20:00 12/11/24 20:30 Temperature Pulse Rate 76 85 Respiratory Rate Blood Pressure Pulse Oximetry 94 Oxygen Delivery Nasal Cannula Oxygen Flow Rate 2 12/11/24 21:15 12/11/24 22:00 12/12/24 00:00 Temperature 36.2 C L Pulse Rate 58 L 60 76 Respiratory Rate 18 Blood Pressure 103/59 L Pulse Oximetry 90 Oxygen Delivery Oxygen Flow Rate 12/12/24 04:00 12/12/24 06:00 12/12/24 08:00 Temperature 36.2 C L Pulse Rate 80 69 66 Respiratory Rate 18 Blood Pressure 108/60 Pulse Oximetry 100 Oxygen Delivery Oxygen Flow Rate 12/12/24 08:30 12/12/24 09:26 12/12/24 09:26 Temperature Pulse Rate 68 82 Respiratory Rate 20 Blood Pressure Pulse Oximetry 93 Oxygen Delivery Nasal Cannula Oxygen Flow Rate 2 12/12/24 12:00 12/12/24 14:00 Temperature 36.2 C L Pulse Rate 85 65 Respiratory Rate 18 Blood Pressure 96/51 L Pulse Oximetry 95 Oxygen Delivery Oxygen Flow Rate Intake/Output Intake/Output: Intake & Output 12/09/24 12/10/24 12/11/24 12/12/24 23:59 23:59 23:59 23:59 Intake Total 1430 1380 1650 442 Output Total 1150 1000 1150 1300 Balance 280 466 801 -285 Meds/Results Medications: Active Medications Generic Name Dose Route Start Last Admin Trade Name Freq PRN Reason Stop Dose Admin Acetaminophen 650 mg 12/05/24 01:09 12/05/24 17:11 Acetaminophen 325 Mg Tablet PO 650 mg Q4H PRN Administration Mild Pain (1-3) or Fever Albuterol 1 puff 12/05/24 15:27 12/06/24 01:43 Albuterol Sulfate (*Sp) Aerosol 1 Puff INHALATION 1 puff Q4H PRN Administration Shortness Of Breath Carvedilol 12.5 mg 12/10/24 11:00 12/12/24 08:30 Carvedilol 12.5 Mg Tablet PO 12.5 mg Q12HR GLORY Administration Cyclobenzaprine HCl 10 mg 12/10/24 10:15 Cyclobenzaprine Hcl 10 Mg Tablet PO BID PRN muscle spasm Famotidine 40 mg 12/06/24 09:00 12/12/24 08:31 Famotidine 20 Mg Tablet PO 40 mg DAILY GLORY Administration Ferrous Sulfate 325 mg 12/06/24 09:00 12/12/24 08:31 Ferrous Sulfate [address] BY MOUTH 325 mg DAILY GLORY Administration Fluticasone Propionate 2 spray 12/06/24 09:00 12/12/24 08:34 Fluticasone Propionate 0.05% Na Spr 16 Gm Btl (*Bkc) NASAL 2 spray DAILY GLORY Administration Fluticasone/Umeclidinium/Vilanterol 1 puff 12/11/24 08:00 12/12/24 09:22 Fluticasone/Umeclidin/Vilanter 100-62.5-25 Mcg Ellipta INHALATION 1 puff DAILYRT GLORY Administration Furosemide 40 mg 12/12/24 09:00 12/12/24 08:30 Furosemide Inj 40 Mg/4 Ml Vial IV PUSH 40 mg DAILY GLORY Administration Gabapentin 300 mg 12/05/24 17:00 12/12/24 12:08 Gabapentin 300 Mg Capsule PO 300 mg TID GLORY Administration Hydroxyzine HCl 12.5 mg 12/05/24 12:27 12/09/24 17:23 Hydroxyzine Hcl 12.5 Mg Tablet PO 12.5 mg Q6H PRN Administration Agitation Hydroxyzine HCl 10 mg 12/10/24 10:15 Hydroxyzine Hcl 10 Mg Tablet PO Q4H PRN anxiety Ceftriaxone Sodium 2 gm in 100 mls @ 200 mls/hr 12/07/24 14:00 12/12/24 01:56 Rocephin 2 Gm/Ns 100 Ml IVPB 12/23/24 23:59 200 mls/hr Q12H GLORY Administration Ampicillin Sodium 2 gm in 100 mls @ 200 mls/hr 12/12/24 14:00 Ampicillin 2 Gm/Ns 100 Ml IVPB 12/23/24 22:00 Q8HR GLORY Lidocaine 1 patch 12/11/24 09:00 12/12/24 12:07 Lidocaine 5% Patch TOPICAL Not Given DAILY [facility] Methocarbamol 750 mg 12/11/24 07:30 12/12/24 12:08 Methocarbamol 750 Mg Tablet PO 750 mg Q8HR GLORY Administration Ondansetron HCl 4 mg 12/05/24 01:09 Ondansetron Inj 4 Mg/2 Ml Vial IV PUSH Q4H PRN Nausea Ondansetron HCl 4 mg 12/10/24 10:15 Ondansetron Hcl Odt 4 Mg Tablet PO Q8H PRN nausea and vomiting Oxycodone HCl 7.5 mg 12/10/24 10:15 12/10/24 11:28 Oxycodone Hcl (*Crx) 2.5 Mg Tab Ir PO 7.5 mg Q4H PRN Administration PAIN 7-10 Oxycodone HCl 5 mg 12/10/24 11:31 12/12/24 12:09 Oxycodone Hcl (*Crx) 5 Mg Tab Ir PO 5 mg Q4H PRN Administration Pain Rated 4-6 Polyethylene Glycol 17 gm 12/06/24 09:00 12/12/24 12:07 Polyethylene Glycol 3350 17 Gm Powd.Pack PO Not Given DAILY [facility] Potassium Chloride 40 meq 12/08/24 17:00 12/12/24 12:08 Potassium Chloride 20 Meq Er Tablet PO 40 meq TID GLORY Administration Rosuvastatin Calcium 10 mg 12/13/24 09:00 Rosuvastatin 10 Mg Tablet PO QAM [facility] Saccharomyces Boulardii 250 mg 12/11/24 17:00 12/12/24 12:08 Saccharomyces Boulardii 250 Mg Capsule PO 250 mg TID GLORY Administration Sertraline HCl 100 mg 12/06/24 09:00 12/12/24 08:29 Sertraline Hcl 50 Mg Tablet PO 100 mg DAILY GLORY Administration Sodium Chloride 10 ml 12/05/24 22:00 12/12/24 05:50 Central Line Flush IV PUSH 10 ml Q8HR GLORY Administration Sodium Chloride 10 ml 12/05/24 14:31 Central Line Flush IV PUSH PRN PRN with TPN bag changes Sodium Chloride 20 ml 12/05/24 14:31 12/11/24 05:08 Central Line Flush IV PUSH 20 ml PRN PRN Administration after blood draws Trazodone HCl 50 mg 12/10/24 21:00 12/11/24 21:16 Trazodone Hcl 50 Mg Tablet PO 50 mg HS GLORY Administration Warfarin Sodium 4 mg 12/12/24 17:00 Warfarin (*Pbkc) 4 Mg Tablet PO DAILY@1700 [facility] Radiology Results: ITS Impressions Chest CTA 12/04/24 05:22 Impression: No evidence of pulmonary embolus, aortic dissection, or aortic aneurysm. Small left pleural effusion and minimal right pleural effusion, with left lower lobe atelectasis and probable minimal pulmonary edema. Correlate clinically for left lower lobe pneumonia. 4.5 x 2.4 x 4.5 cm hematoma just superficial to the left pectoralis major muscle with small bubble of air within it. Correlate for recent trauma or procedure in this region. T10 compression fracture is new from prior exam. Large Schmorl's node at the superior plate of T11 and mild erosive change at the inferior endplate of T10 are also new. These are likely degenerative/related to fracture, however osteomyelitis/discitis is a potential alternative consideration. If this latter diagnosis is of clinical concern, then MRI with and without contrast recommended for further evaluation. Abdomen Ultrasound 12/06/24 07:41 IMPRESSION: 1: Status post cholecystectomy with expected prominence of the common bile duct. If there is concern for obstructing stone or mass in the duct, consider MRCP study. Chest X-Ray 12/10/24 11:40 Impression: 1: Cardiomegaly with mild interstitial edema. 2: Left basilar airspace consolidation a represent atelectasis and/or superimposed pneumonia. Labs Labs: Laboratory Results - last 24 hr 12/12/24 06:35 WBC 7.6 RBC 3.65 L Hgb 9.7 L Hct 33.5 L MCV 91.8 MCH 26.6 MCHC 29.0 L RDW 17.9 H Plt Count 231 MPV 11.4 H PT 33.4 H INR 3.4 Sodium 137 Potassium 3.6 Chloride 92 L Carbon Dioxide 34 H Anion Gap 11 BUN 24 H Creatinine 1.54 H Estim Creat Clear Calc 25 Estimated GFR 34 L Glucose 101 Calcium 9.3 Magnesium 1.9 Quality VTE Prophylaxis VTE prophylaxis: mechanical ordered
[2024-12-12] MEDS: WARFARIN (*PBKC) 4 MG TABLET PO (17:28)
[2024-12-12] MEDS: traZODone HCL 50 MG TABLET PO (20:15)
[2024-12-12] MEDS: oxyCODONE HCL (*CRX) 2.5 MG TAB IR 7.5 MG PO (20:15)
[2024-12-13] VITALS (13 sets, daily range): BP systolic 91–106; BP diastolic 47–73; PULSE 52–75; RESP 16–18; TEMP 36–36.4; O2SAT 96–98
--- NOTE | 2024-12-13 | ECHO_ITS ---
Patient Info Name: Kendal Junior Age: 69 years : 1955 Gender: Female Ht: 62 in Wt: 134 lbs BSA: 1.64 m2 HR: 58 bpm BP: 97 / 52 mmHg Technical Quality: Good Exam Date: 12/13/2024 1:06 PM Patient Status: I Admit Date: 12/05/2024 Exam Type: CA echo doppler color flow Complete two-dimensional, color flow and Doppler transthoracic echocardiogram is performed. Staff Referring Physician: Nicki Johnson MD Door Framer: Maday Hayes Attending Provider: Courtney Loredo Summary 1. Complete two-dimensional, color flow and Doppler transthoracic echocardiogram is performed. 2. Left ventricular systolic function is normal, estimated at 60-65. 3. There is mildly increased left ventricular wall thickness. 4. The left ventricular diastolic function is grade II diastolic dysfunction. 5. E/e' 22.6 is elevated. 6. Right ventricular chamber dimension is mildly enlarged. 7. Right ventricular systolic function is reduced. 8. Left atrial chamber dimension is mildly enlarged. 9. Right atrial chamber dimension is mildly enlarged. 10. Mechanical aortic valve. Mean gradient 9mmHG and valve area 1.3cm2. There is mild aortic valve regurgitation. 11. There is mild to moderate mitral valve regurgitation. 12. There is mild mitral valve calcification. 13. There is moderate to severe tricuspid valve regurgitation. 14. No pulmonary hypertension, estimated pulmonary arterial systolic pressure is 32 mmHg. Left Ventricle Left ventricular chamber dimension is normal. Left ventricular systolic function is normal, estimated at 60-65. There is mildly increased left ventricular wall thickness. Left ventricular septal wall motion is normal. The left ventricular diastolic function is grade II diastolic dysfunction. E/e' 22.6 is elevated. Right Ventricle Right ventricular chamber dimension is mildly enlarged. Right ventricular systolic function is reduced. Left Atria Left atrial chamber dimension is mildly enlarged. Right Atria Right atrial chamber dimension is mildly enlarged. Aortic Valve The aortic valve is trileaflet. There is no aortic valve sclerosis. There is no aortic valve stenosis. Mechanical aortic valve. Mean gradient 9mmHG and valve area 1.3cm2. There is mild aortic valve regurgitation. Pulmonic Valve The pulmonic valve is normal. There is no pulmonic valve stenosis. There is no pulmonic regurgitation. Mitral Valve The mitral valve has normal leaflets. There is no mitral valve stenosis. There is mild to moderate mitral valve regurgitation. There is mild mitral valve calcification. Tricuspid Valve The tricuspid valve leaflets are normal. There is no significant tricuspid valve stenosis. There is moderate to severe tricuspid valve regurgitation. No pulmonary hypertension, estimated pulmonary arterial systolic pressure is 32 mmHg. Pericardium/Pleural The pericardium appears normal. There is no pericardial effusion. Inferior Vena Cava Normal inferior vena cava with >50% collapse upon inspiration consistent with normal right atrial pressure, 10 mmHg. Aorta The aortic root size at the sinus of Valsalva is normal. The prox ascending aorta size is normal. Left Ventricular Outflow Tract Name Value Normal LVOT 2D LVOT Diameter 1.9 cm LVOT Doppler LVOT Peak Velocity 93 cm/s LVOT Peak Gradient 3 mmHg LVOT Mean Gradient 2 mmHg LVOT VTI 20 cm LVOT VTI/AV VTI Ratio 0.6 LVOT Stroke Volume 54 ml LVOT CO 11.2 l/min LVOT CI 6.8 l/min/m2 Pulmonic Valve Name Value Normal PV Doppler PV Peak Velocity 101 cm/s PV Peak Gradient 4 mmHg Mitral Valve Name Value Normal MV Doppler MV Peak Gradient 9 mmHg MV Mean Gradient 3 mmHg MV Area (Cont Eq VTI) 1.2 cm2 MV Diastolic Function MV E Peak Velocity 131 cm/s MV A Peak Velocity 124 cm/s MV E/A 1.1 MV Decel Time (PW) 281 ms MV Annular TDI MV E/e' (Septal) 21.5 MV E/e' (Lateral) 23.6 MV E/e' (Average) 22.6 Tricuspid Valve Name Value Normal TV Regurgitation Doppler TR Peak Velocity 236 cm/s TR Peak Gradient 21 mmHg Estimated PAP/RSVP RA Pressure 10 mmHg <=5 PA Systolic Pressure 32 mmHg <36 RV Systolic Pressure 32 mmHg <36 TV Annular TDI TV Lateral Marisa s' Velocity 6.8 cm/s >=9.5 Aortic Valve Name Value Normal AV Doppler AV Peak Velocity 198 cm/s AV Peak Gradient 16 mmHg AV Mean Gradient 9 mmHg AV VTI 35 cm AV Area (Cont Eq VTI) 1.5 cm2 >=3.0 AV Area (Cont Eq Jenaro) 1.3 cm2 AV DI (Jenaro) 0.47 AV Regurgitation 2D LVOT Area 2.7 cm2 Ventricles Name Value Normal LV Dimensions 2D/MM IVS Diastolic Thickness (2D) 0.9 cm 0.6-1.0 LVID Diastole (2D) 3.4 cm 3.8-5.2 LVIW Diastolic Thickness (2D) 0.9 cm 0.6-0.9 LVID Systole (2D) 2.5 cm 2.2-3.5 LVOT Diameter 1.9 cm LV Mass (2D Cubed) 86.05 g 67.00-162.00 LV Mass Index (2D Cubed) 52 g/m2 43-95 Relative Wall Thickness (2D) 0.53 <=0.42 LV Fractional Shortening/Ejection Fraction 2D/MM LV Fractional Shortening (2D) 26 % 27-45 LV EF (2D Teichholz) 53 % LV Diastolic Volume (4C MOD) 77 ml LV EF (4C MOD) 54 % LV Diastolic Volume (2C MOD) 96 ml LV EF (2C MOD) 68 % LV Diastolic Volume (BP MOD) 89 ml 46-106 LV Diastolic Volume Index (BP MOD) 54 ml/m2 29-61 LV Systolic Volume (BP MOD) 33 ml 14-42 LV Systolic Volume Index (BP MOD) 20 ml/m2 8-24 LV EF (BP MOD) 63 % 54-74 LV Diastolic Length (4C) 8.1 cm LV Systolic Length (4C) 7.2 cm LV Stroke Volume (4C MOD) 42 ml RV Dimensions 2D/MM RVID Diastole (2D) 4.6 cm 2.1-3.5 Atria Name Value Normal LA Dimensions LA Volume (4C A-L) 68 ml LA Volume (BP A-L) 71 ml RA Dimensions RA Systolic Major Mcbh [place] Length (4C) 6.2 cm 2.2-2.8 RA Area (4C) 26.2 cm2 <=18.0 Report Signatures
[2024-12-13] MEDS: cefTRIAXone 2 GM/NS 100 ML 2 GM/100 ML BAG IVPB ×2 (01:51→13:06)
[2024-12-13] MEDS: CENTRAL LINE FLUSH 10 ML IV PUSH ×3 (06:03→21:48)
[2024-12-13] MEDS: AMPICILLIN 2 GM/NS 100 ML 2 GM/100 ML BAG IVPB ×3 (06:03→21:47)
[2024-12-13] MEDS: methocarbamoL 750 MG TABLET PO ×3 (06:03→21:41)
[2024-12-13 06:21] LABS: Hematocrit 31.4 % (37.0-47.0); Hemoglobin 9.2 g/dL (12.0-15.0); Mean Corpuscular HGB Conc 29.3 g/dl (32-36); Mean Corpuscular Hemoglobin 26.9 pg (26-34); Mean Corpuscular Volume 91.8 fl (80-100); Mean Platelet Volume 10.8 fl (7.4-10.4); Platelet Count Result 213 k/mm3 (150-375); Red Blood Count 3.42 M/mm3 (4.2-5.4); Red Cell Distribution Width 17.6 % (11.5-14.5); White Blood Count 6.1 K/mm3 (4.5-10.0)
[2024-12-13 06:37] LABS: INR 4.5; Prothrombin Time 41.1 Seconds (11.1-14.7)
[2024-12-13 07:03] LABS: Anion Gap 7 mmol/L (4-12); Blood Urea Nitrogen 29 mg/dL (7-17); Calcium 9.2 mg/dL (8.4-10.2); Carbon Dioxide 38 mmol/L (22-30); Chloride 90 mmol/L (98-107); Estimated CRCL calculation 24 ml/min; Estimated Glomerular Filt Rate 31; Glucose 94 mg/dL (65-110); Potassium 3.6 mmol/L (3.4-5.0); Sodium 135 mmol/L (137-145)
[2024-12-13] MEDS: FLUTICASONE/UMECLIDIN/VILANTER 100-62.5-25 MCG ELLIPTA 1 PUFF INHALATION (07:56)
[2024-12-13] MEDS: POTASSIUM CHLORIDE 20 MEQ ER TABLET 40 MEQ PO ×3 (08:17→17:54)
[2024-12-13] MEDS: FAMOTIDINE 20 MG TABLET 40 MG PO (08:17)
[2024-12-13] MEDS: polyethylene glycoL 3350 17 GM POWD.PACK PO (08:17)
[2024-12-13] MEDS: ROSUVASTATIN 10 MG TABLET PO (08:18)
[2024-12-13] MEDS: GABAPENTIN 300 MG CAPSULE PO ×3 (08:18→17:54)
[2024-12-13] MEDS: SACCHAROMYCES BOULARDII 250 MG CAPSULE PO ×3 (08:18→17:54)
[2024-12-13] MEDS: FUROSEMIDE INJ 40 MG/4 ML VIAL IV PUSH (08:18)
[2024-12-13] MEDS: FERROUS SULFATE 325 MG TABLET DR BY MOUTH (08:18)
[2024-12-13] MEDS: SERTRALINE HCL 50 MG TABLET 100 MG PO (08:18)
[2024-12-13] MEDS: FLUTICASONE PROPIONATE 0.05% NA SPR 16 GM BTL (*BKC) 2 SPRAY NASAL (08:19)
--- NOTE | 2024-12-13 12:03 | PM.PNCARD ---
Progress Note: A&P Assessment and Plan (1) Acute on chronic heart failure with preserved ejection fraction: Code(s): I50.33 - Acute on chronic diastolic (congestive) heart failure Status: Acute Plan Acute on chronic heart failure with preserved LVEF Acute hypoxic respiratory failure Possible pneumonia Coronary artery disease s/p 1V CABG with SVG to RCA in 2021 Mechanical aortic valve (Inspclaudia pettya, 2019) Mitral valve repair 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 I will order echocardiogram to assess cardiac structure and function. JVP still elevated. I will order a chest x-ray as well to assess if she still has congestion and pulmonary edema. Lung examination suggestive of decreased air entry bilaterally which could be related to COPD but we need to rule out pleural effusion. At home she takes spironolactone 25 mg daily but we did not resume due to low blood pressure and due to acute kidney injury. -in regards to history of hypertension reduce carvedilol from 12.5 mg b.i.d. to 6.25 mg b.i.d. with holding parameters given soft blood pressure. -in regards to acute kidney injury, secondary to probably diuretics and low blood pressure. Reduce carvedilol dosage. Hold Lasix for now. Order echocardiogram. -regards to mechanical aortic valve, INR today is 4. Continue to hold warfarin. -in regards to hyperlipidemia continue atorvastatin. -regards to left bundle branch block, heart rate upper 50s and low 60s. Will reduce the carvedilol dosage. Order echo to rule out worsening heart function. -regards to possible pneumonia, management of antibiotic per primary team. Subjective Date/time seen: 12/13/24 12:03 OSH records from [place] was personally reviewed and noted below: Patient was recently discharged from [place] on 12/02/2024 after being admitted there on 11/13. She was admitted with Enterococci baceteremia. Underwent removal of her pacemaker on 11/25 as NEVAEH showed tiny mobile linear echodensities on device lead in the right atrium concerning for vegetation. Did not need a replacement pacemaker. Treated for osteomyelitis. Discharged on home Coreg, but Spironolactone was held upon discharge due to elevated SCr levels with plan to resume Spironolactone 25mg once daily when renal function improves. NEVAEH during that hospitalization showed normal LVEF. Patient presented to [place] due to shortness of breath, coughing with yellow sputum. She was admitted on 12/05 for acute hypoxic respiratory failure, possible pneumonia, CHF. Initially transfer to [place] was pending given her recent hospitalization there for continuity of care, but that transfer appears to have been canceled. She continues to report ongoing shortness of breath. Remains on supplemental oxygen. Interval history: Cardiology follow up visit. Patient is being seen for CHF States she is feeling better than yesterday but still has shortness of breath. No chest pain, palpitations, swelling. 12/12/2024: Feeling about the same today as she did yesterday but does not have any specific complaints. Date of service 12/13/2024: Resting comfortably in bed. She still has shortness of breath. Requiring oxygen. Has cough intermittently. Review of Systems Review of Systems: All systems reviewed & are unremarkable except as noted in HPI and below (HPI) Exam Const: General: no acute distress Other: Chronically ill appearing female HENMT: Mouth: Yes moist mucous membranes Resp: Effort & Inspection: normal respiratory effort Auscultation: crackles, wheezes and diminished lung sounds Other: On supplemental oxygen Cardio: Rhythm: abnormal rhythm irregularly irregular Other: + Mechanical click. No lower extremity edema Urinary Catheter: Urinary Catheter: patent and draining Skin: General skin exam: normal color Neuro: Speech: normal speech Psych: Mental Status: mental status grossly normal Affect: normal affect Objective Data Vital Signs Vital Signs: Vital Signs - 24 hr 12/12/24 14:00 12/12/24 16:00 12/12/24 20:00 Temperature 36.2 C L Pulse Rate 65 66 Respiratory Rate 18 Blood Pressure 96/51 L Pulse Oximetry 95 94 Oxygen Delivery Nasal Cannula Oxygen Flow Rate 2 12/12/24 20:00 12/12/24 20:10 12/12/24 20:15 Temperature 36.2 C L Pulse Rate 83 74 80 Respiratory Rate 16 Blood Pressure 88/46 L Pulse Oximetry 97 Oxygen Delivery Oxygen Flow Rate 12/12/24 20:35 12/13/24 00:00 12/13/24 00:33 Temperature Pulse Rate 74 65 Respiratory Rate Blood Pressure 91/47 L Pulse Oximetry 94 Oxygen Delivery Nasal Cannula Oxygen Flow Rate 2 12/13/24 04:00 12/13/24 05:53 12/13/24 07:58 Temperature 36.1 C L Pulse Rate 55 L 57 L Respiratory Rate 16 Blood Pressure 97/52 L Pulse Oximetry 97 97 Oxygen Delivery Nasal Cannula Oxygen Flow Rate 2 12/13/24 08:30 Temperature Pulse Rate 52 L Respiratory Rate Blood Pressure Pulse Oximetry Oxygen Delivery Oxygen Flow Rate Intake/Output Intake/Output: Intake & Output 12/10/24 12/11/24 12/12/24 12/13/24 23:59 23:59 23:59 23:59 Intake Total 1380 1650 1364 120 Output Total 1000 1150 1500 Balance 380 500 -136 120 Meds/Results Medications: Active Medications Generic Name Dose Route Start Last Admin Trade Name Freq PRN Reason Stop Dose Admin Acetaminophen 650 mg 12/05/24 01:09 12/05/24 17:11 Acetaminophen 325 Mg Tablet PO 650 mg Q4H PRN Administration Mild Pain (1-3) or Fever Albuterol 1 puff 12/05/24 15:27 12/06/24 01:43 Albuterol Sulfate (*Sp) Aerosol 1 Puff INHALATION 1 puff Q4H PRN Administration Shortness Of Breath Carvedilol 12.5 mg 12/10/24 11:00 12/13/24 08:30 Carvedilol 12.5 Mg Tablet PO Not Given Q12HR GLORY Cyclobenzaprine HCl 10 mg 12/10/24 10:15 Cyclobenzaprine Hcl 10 Mg Tablet PO BID PRN muscle spasm Famotidine 40 mg 12/06/24 09:00 12/13/24 08:17 Famotidine 20 Mg Tablet PO 40 mg DAILY GLORY Administration Ferrous Sulfate 325 mg 12/06/24 09:00 12/13/24 08:18 Ferrous Sulfate [address] BY MOUTH 325 mg DAILY GLORY Administration Fluticasone Propionate 2 spray 12/06/24 09:00 12/13/24 08:19 Fluticasone Propionate 0.05% Na Spr 16 Gm Btl (*Bkc) NASAL 2 spray DAILY GLORY Administration Fluticasone/Umeclidinium/Vilanterol 1 puff 12/11/24 08:00 12/13/24 07:56 Fluticasone/Umeclidin/Vilanter 100-62.5-25 Mcg Ellipta INHALATION 1 puff DAILYRT GLORY Administration Furosemide 40 mg 12/12/24 09:00 12/13/24 08:18 Furosemide Inj 40 Mg/4 Ml Vial IV PUSH 40 mg DAILY GLORY Administration Gabapentin 300 mg 12/05/24 17:00 12/13/24 08:18 Gabapentin 300 Mg Capsule PO 300 mg TID GLORY Administration Hydroxyzine HCl 12.5 mg 12/05/24 12:27 12/09/24 17:23 Hydroxyzine Hcl 12.5 Mg Tablet PO 12.5 mg Q6H PRN Administration Agitation Hydroxyzine HCl 10 mg 12/10/24 10:15 Hydroxyzine Hcl 10 Mg Tablet PO Q4H PRN anxiety Ceftriaxone Sodium 2 gm in 100 mls @ 200 mls/hr 12/07/24 14:00 12/13/24 01:51 Rocephin 2 Gm/Ns 100 Ml IVPB 12/23/24 23:59 200 mls/hr Q12H GLORY Administration Ampicillin Sodium 2 gm in 100 mls @ 200 mls/hr 12/12/24 14:00 12/13/24 06:03 Ampicillin 2 Gm/Ns 100 Ml IVPB 12/23/24 22:00 200 mls/hr Q8HR GLORY Administration Lidocaine 1 patch 12/11/24 09:00 12/13/24 08:17 Lidocaine 5% Patch TOPICAL 1 patch DAILY GLORY Administration Methocarbamol 750 mg 12/11/24 07:30 12/13/24 06:03 Methocarbamol 750 Mg Tablet PO 750 mg Q8HR GLORY Administration Ondansetron HCl 4 mg 12/05/24 01:09 Ondansetron Inj 4 Mg/2 Ml Vial IV PUSH Q4H PRN Nausea Ondansetron HCl 4 mg 12/10/24 10:15 Ondansetron Hcl Odt 4 Mg Tablet PO Q8H PRN nausea and vomiting Oxycodone HCl 7.5 mg 12/10/24 10:15 12/12/24 20:15 Oxycodone Hcl (*Crx) 2.5 Mg Tab Ir PO 7.5 mg Q4H PRN Administration PAIN 7-10 Oxycodone HCl 5 mg 12/10/24 11:31 12/12/24 12:09 Oxycodone Hcl (*Crx) 5 Mg Tab Ir PO 5 mg Q4H PRN Administration Pain Rated 4-6 Polyethylene Glycol 17 gm 12/06/24 09:00 12/13/24 08:17 Polyethylene Glycol 3350 17 Gm Powd.Pack PO 17 gm DAILY GLORY Administration Potassium Chloride 40 meq 12/08/24 17:00 12/13/24 08:17 Potassium Chloride 20 Meq Er Tablet PO 40 meq TID GLORY Administration Rosuvastatin Calcium 10 mg 12/13/24 09:00 12/13/24 08:18 Rosuvastatin 10 Mg Tablet PO 10 mg QAM GLORY Administration Saccharomyces Boulardii 250 mg 12/11/24 17:00 12/13/24 08:18 Saccharomyces Boulardii 250 Mg Capsule PO 250 mg TID GLORY Administration Sertraline HCl 100 mg 12/06/24 09:00 12/13/24 08:18 Sertraline Hcl 50 Mg Tablet PO 100 mg DAILY GLORY Administration Sodium Chloride 10 ml 12/05/24 22:00 12/13/24 06:03 Central Line Flush IV PUSH 10 ml Q8HR GLORY Administration Sodium Chloride 10 ml 12/05/24 14:31 Central Line Flush IV PUSH PRN PRN with TPN bag changes Sodium Chloride 20 ml 12/05/24 14:31 12/11/24 05:08 Central Line Flush IV PUSH 20 ml PRN PRN Administration after blood draws Trazodone HCl 50 mg 12/10/24 21:00 12/12/24 20:15 Trazodone Hcl 50 Mg Tablet PO 50 mg HS GLORY Administration Warfarin Sodium 4 mg 12/12/24 17:00 12/12/24 17:28 Warfarin (*Pbkc) 4 Mg Tablet PO 4 mg DAILY@1700 GLORY Administration Radiology Results: ITS Impressions Chest CTA 12/04/24 05:22 Impression: No evidence of pulmonary embolus, aortic dissection, or aortic aneurysm. Small left pleural effusion and minimal right pleural effusion, with left lower lobe atelectasis and probable minimal pulmonary edema. Correlate clinically for left lower lobe pneumonia. 4.5 x 2.4 x 4.5 cm hematoma just superficial to the left pectoralis major muscle with small bubble of air within it. Correlate for recent trauma or procedure in this region. T10 compression fracture is new from prior exam. Large Schmorl's node at the superior plate of T11 and mild erosive change at the inferior endplate of T10 are also new. These are likely degenerative/related to fracture, however osteomyelitis/discitis is a potential alternative consideration. If this latter diagnosis is of clinical concern, then MRI with and without contrast recommended for further evaluation. Abdomen Ultrasound 12/06/24 07:41 IMPRESSION: 1: Status post cholecystectomy with expected prominence of the common bile duct. If there is concern for obstructing stone or mass in the duct, consider MRCP study. Chest X-Ray 12/10/24 11:40 Impression: 1: Cardiomegaly with mild interstitial edema. 2: Left basilar airspace consolidation a represent atelectasis and/or superimposed pneumonia. Labs Labs: Laboratory Results - last 24 hr 12/13/24 06:09 WBC 6.1 RBC 3.42 L Hgb 9.2 L Hct 31.4 L MCV 91.8 MCH 26.9 MCHC 29.3 L RDW 17.6 H Plt Count 213 MPV 10.8 H PT 41.1 H D INR 4.5 Sodium 135 L Potassium 3.6 Chloride 90 L Carbon Dioxide 38 H Anion Gap 7 BUN 29 H Creatinine 1.65 H Estim Creat Clear Calc 24 Estimated GFR 31 L Glucose 94 Calcium 9.2 Magnesium 2.0 Quality VTE Prophylaxis VTE prophylaxis: mechanical ordered
--- NOTE | 2024-12-13 14:02 | P.PNIM_ITS ---
Progress Note: A&P Assessment and Plan (1) Hospital acquired PNA: Code(s): J18.9 - Pneumonia, unspecified organism; Y95 - Nosocomial condition Status: Acute Assessment and Plan: CXR: Left basilar atelectasis versus pneumonia with possible Effusion - Risk Factors: none - Complicating Factors: none - started on HAP: Cefepime & Vanc (discontinued due to (-) MRSA) - change to iv ampicilin and iv rocephin (2) Acute and chronic respiratory failure with hypoxia: Code(s): J96.21 - Acute and chronic respiratory failure with hypoxia Status: Acute Assessment and Plan: * Symptoms: Shortness of breath * Chest XR: Left basilar atelectasis versus pneumonia with possible Effusion * dc breathing treatments (3) Transaminitis: Code(s): R74.01 - Elevation of levels of liver transaminase levels Status: Acute Assessment and Plan: * Upon admission:AST 239, ALT 137 * Repeat: 183, 144 respectively * Physical exam benign, no abdominal pain * RUQ US reveiwed with pt (4) S/P AVR (aortic valve replacement): Code(s): Z95.2 - Presence of prosthetic heart valve Status: Acute (5) H/O mitral valve repair: Code(s): Z98.890 - Other specified postprocedural states Status: Acute (6) H/O mechanical aortic valve replacement: Code(s): Z95.2 - Presence of prosthetic heart valve Status: Acute (7) Cardiomyopathy: Code(s): I42.9 - Cardiomyopathy, unspecified Status: Acute Assessment and Plan: pt switched to iv lasix increase dose more diuresis D/w pulmology MD (8) HTN (hypertension): Code(s): I10 - Essential (primary) hypertension Status: Acute Assessment and Plan: watch blood pressures chronic and stable (9) Anemia: Code(s): D64.9 - Anemia, unspecified Status: Acute Assessment and Plan: order iv venofer today for hb of 7 hb improved to 8.7 continue ferrous sulphate Plan patient with chronic medical conditions and in and out of hospital had developed hospital aquired PNA as well OM in her spine, and with underling COPD, patient is being treated with ceftriaxone and Ampicillin, until 12/23, patient is seen by her ged preparation teacher and clinical symptoms are improving, repeat chest x-ray shows persisting pneumonia, patient has mechanical valve replaced in 2021 taking warfarin and her INR on 12/11 was 3.2 held warfarin goal is 2-3 INR. patient warfarin was reduced to 4mg today INR is 4.5will hold warfarin today, patient with significant cardiac history acute on chronic heart failure seen by her laundry folder and recommended to continue diuresed the patient with IV Lasix 40mg BID, however her Scr is rising, will lasix for now, will monitor. severe hypokalaemia dvt prop pt is on coumadin monitor INRS Subjective Date/time seen: 12/13/24 14:02 Interval history: Ms. Junior is a 69-year-old female with history of AFib status post pacemaker, CKD, recent T10/T11 vertebral osteomyelitis, bacterial endocarditis, infected pacemaker hardware status post removal on 11/25/2024 at [place], heparin-induced thrombocytopenia, aortic valve replacement/aortic grafting replacement in 2021, previous ECMO in 2021 due to mediastinum night is and aortic/ventricular injury requiring repair. She was recently hospitalized at [facility] for bacteremia with Enterococcus and then discharged on 6 weeks of antibiotics by a right-sided PICC line which was scheduled to be completed in 01/2025. 12/05/2024 Patient sitting comfortably in bed at time of exam. Vital signs appear to be stable with a pulse rate of 97 and O2 saturation of 94% on 2 L NC, however patient states shortness of breath has improved when compared to yesterday. Pending transfer to [facility] at this time. 12/06/2024 Pt needing 3 liters of oxygen today cxr and abg ordered and reviewed Order iv lasix for pt for pulmonary edema Order venofer for low hb Pt awaiting transfer to [facility] recent pacemaker removal Pt had all her cardiac procedures in [place] 12/07/2024 Pts coumadin restarted Pt restarted on her ampicillin Pt having low potassium krider ordered for pt Pt still sob pt started on iv lasix D/w pt and son by the bedside Awaiting transfer to [facility] D/w Dr Reyes 12/08/2024 D/w pulmology ok to continue present care with iv abx and iv lasix pt still sob increase diuresis today pt had potassium rider continue oral potassium meds pt awaiting [facility] transfer bed INR subtherapeutic continue coumadin dosing patient with chronic medical conditions and in and out of hospital had developed hospital aquired PNA as well OM in her spine, and with underling COPD, patient is being treated with ceftriaxone and Ampicillin, until 12/23, patient is seen by her ged preparation teacher and clinical symptoms are improving, repeat chest x-ray shows persisting pneumonia, patient has mechanical valve replaced in 2021 taking warfarin and her INR on 12/11 was 3.2 held warfarin goal is 2-3 INR. patient warfarin was reduced to 4mg today INR is 4.5will hold warfarin today, patient with significant cardiac history acute on chronic heart failure seen by her laundry folder and recommended to continue diuresed the patient with IV Lasix 40mg BID, however her Scr is rising, will lasix for now, will monitor. Review of Systems Review of Systems: Ongoing SOB All systems reviewed & are unremarkable except as noted in HPI and below (HPI) Exam Narrative: Patient is comfortable, NAD HEENT: eyes are clear and none icteric LUNGS: Bilateral poor air entry with rhonchi HEART: RR S1S2 ABD: BS+, Soft and nontender Lower extremities: no edema SKIN: nonjaundiced Neuro: grossly intact. Objective Data Vital Signs Vital Signs: Vital Signs - 24 hr 12/12/24 16:00 12/12/24 20:00 12/12/24 20:00 Temperature Pulse Rate 66 83 Respiratory Rate Blood Pressure Pulse Oximetry 94 Oxygen Delivery Nasal Cannula Oxygen Flow Rate 2 12/12/24 20:10 12/12/24 20:15 12/12/24 20:35 Temperature 36.2 C L Pulse Rate 74 80 74 Respiratory Rate 16 Blood Pressure 88/46 L Pulse Oximetry 97 94 Oxygen Delivery Nasal Cannula Oxygen Flow Rate 2 12/13/24 00:00 12/13/24 00:33 12/13/24 04:00 Temperature Pulse Rate 65 55 L Respiratory Rate Blood Pressure 91/47 L Pulse Oximetry Oxygen Delivery Oxygen Flow Rate 12/13/24 05:53 12/13/24 07:58 12/13/24 08:00 Temperature 36.1 C L Pulse Rate 57 L Respiratory Rate 16 Blood Pressure 97/52 L Pulse Oximetry 97 97 97 Oxygen Delivery Nasal Cannula Nasal Cannula Oxygen Flow Rate 2 2 12/13/24 08:00 12/13/24 08:30 Temperature Pulse Rate 57 L 52 L Respiratory Rate Blood Pressure Pulse Oximetry Oxygen Delivery Oxygen Flow Rate Intake/Output Intake/Output: Intake & Output 12/10/24 12/11/24 12/12/24 12/13/24 23:59 23:59 23:59 23:59 Intake Total 1380 1650 1364 320 Output Total 1000 1150 1500 Balance 380 500 -136 320 Meds/Results Medications: Active Medications Generic Name Dose Route Start Last Admin Trade Name Freq PRN Reason Stop Dose Admin Acetaminophen 650 mg 12/05/24 01:09 12/05/24 17:11 Acetaminophen 325 Mg Tablet PO 650 mg Q4H PRN Administration Mild Pain (1-3) or Fever Albuterol 1 puff 12/05/24 15:27 12/06/24 01:43 Albuterol Sulfate (*Sp) Aerosol 1 Puff INHALATION 1 puff Q4H PRN Administration Shortness Of Breath Carvedilol 3.125 mg 12/13/24 21:00 Carvedilol 3.125 Mg Tablet PO Q12HR GLORY Cyclobenzaprine HCl 10 mg 12/10/24 10:15 Cyclobenzaprine Hcl 10 Mg Tablet PO BID PRN muscle spasm Famotidine 40 mg 12/06/24 09:00 12/13/24 08:17 Famotidine 20 Mg Tablet PO 40 mg DAILY GLORY Administration Ferrous Sulfate 325 mg 12/06/24 09:00 12/13/24 08:18 Ferrous Sulfate [address] BY MOUTH 325 mg DAILY GLORY Administration Fluticasone Propionate 2 spray 12/06/24 09:00 12/13/24 08:19 Fluticasone Propionate 0.05% Na Spr 16 Gm Btl (*Bkc) NASAL 2 spray DAILY GLORY Administration Fluticasone/Umeclidinium/Vilanterol 1 puff 12/11/24 08:00 12/13/24 07:56 Fluticasone/Umeclidin/Vilanter 100-62.5-25 Mcg Ellipta INHALATION 1 puff DAILYRT GLORY Administration Gabapentin 300 mg 12/05/24 17:00 12/13/24 13:28 Gabapentin 300 Mg Capsule PO 300 mg TID GLORY Administration Hydroxyzine HCl 12.5 mg 12/05/24 12:27 12/09/24 17:23 Hydroxyzine Hcl 12.5 Mg Tablet PO 12.5 mg Q6H PRN Administration Agitation Hydroxyzine HCl 10 mg 12/10/24 10:15 Hydroxyzine Hcl 10 Mg Tablet PO Q4H PRN anxiety Ceftriaxone Sodium 2 gm in 100 mls @ 200 mls/hr 12/07/24 14:00 12/13/24 13:06 Rocephin 2 Gm/Ns 100 Ml IVPB 12/23/24 23:59 200 mls/hr Q12H GLORY Administration Ampicillin Sodium 2 gm in 100 mls @ 200 mls/hr 12/12/24 14:00 12/13/24 13:46 Ampicillin 2 Gm/Ns 100 Ml IVPB 12/23/24 22:00 200 mls/hr Q8HR GLORY Administration Lidocaine 1 patch 12/11/24 09:00 12/13/24 08:17 Lidocaine 5% Patch TOPICAL 1 patch DAILY GLORY Administration Methocarbamol 750 mg 12/11/24 07:30 12/13/24 13:28 Methocarbamol 750 Mg Tablet PO 750 mg Q8HR GLORY Administration Ondansetron HCl 4 mg 12/05/24 01:09 Ondansetron Inj 4 Mg/2 Ml Vial IV PUSH Q4H PRN Nausea Ondansetron HCl 4 mg 12/10/24 10:15 Ondansetron Hcl Odt 4 Mg Tablet PO Q8H PRN nausea and vomiting Oxycodone HCl 7.5 mg 12/10/24 10:15 12/12/24 20:15 Oxycodone Hcl (*Crx) 2.5 Mg Tab Ir PO 7.5 mg Q4H PRN Administration PAIN 7-10 Oxycodone HCl 5 mg 12/10/24 11:31 12/12/24 12:09 Oxycodone Hcl (*Crx) 5 Mg Tab Ir PO 5 mg Q4H PRN Administration Pain Rated 4-6 Perflutren Lipid Microsphere 0 ml 12/13/24 12:47 Perflutren Lipid Microspheres 1.5 Ml Vial Diluted To 10 Ml Total Volume IV PUSH 12/16/24 12:47 ONCE PRN adequate visualization Protocol Polyethylene Glycol 17 gm 12/06/24 09:00 12/13/24 08:17 Polyethylene Glycol 3350 17 Gm Powd.Pack PO 17 gm DAILY GLORY Administration Potassium Chloride 40 meq 12/08/24 17:00 12/13/24 13:28 Potassium Chloride 20 Meq Er Tablet PO 40 meq TID GLORY Administration Rosuvastatin Calcium 10 mg 12/13/24 09:00 12/13/24 08:18 Rosuvastatin 10 Mg Tablet PO 10 mg QAM GLORY Administration Saccharomyces Boulardii 250 mg 12/11/24 17:00 12/13/24 13:28 Saccharomyces Boulardii 250 Mg Capsule PO 250 mg TID GLORY Administration Sertraline HCl 100 mg 12/06/24 09:00 12/13/24 08:18 Sertraline Hcl 50 Mg Tablet PO 100 mg DAILY GLORY Administration Sodium Chloride 10 ml 12/05/24 22:00 12/13/24 13:29 Central Line Flush IV PUSH 10 ml Q8HR GLORY Administration Sodium Chloride 10 ml 12/05/24 14:31 Central Line Flush IV PUSH PRN PRN with TPN bag changes Sodium Chloride 20 ml 12/05/24 14:31 12/11/24 05:08 Central Line Flush IV PUSH 20 ml PRN PRN Administration after blood draws Trazodone HCl 50 mg 12/10/24 21:00 12/12/24 20:15 Trazodone Hcl 50 Mg Tablet PO 50 mg HS GLORY Administration Warfarin Sodium 4 mg 12/12/24 17:00 12/12/24 17:28 Warfarin (*Pbkc) 4 Mg Tablet PO 4 mg DAILY@1700 GLORY Administration Radiology Results: ITS Impressions Chest CTA 12/04/24 05:22 Impression: No evidence of pulmonary embolus, aortic dissection, or aortic aneurysm. Small left pleural effusion and minimal right pleural effusion, with left lower lobe atelectasis and probable minimal pulmonary edema. Correlate clinically for left lower lobe pneumonia. 4.5 x 2.4 x 4.5 cm hematoma just superficial to the left pectoralis major muscle with small bubble of air within it. Correlate for recent trauma or procedure in this region. T10 compression fracture is new from prior exam. Large Schmorl's node at the superior plate of T11 and mild erosive change at the inferior endplate of T10 are also new. These are likely degenerative/related to fracture, however osteomyelitis/discitis is a potential alternative consideration. If this latter diagnosis is of clinical concern, then MRI with and without contrast recommended for further evaluation. Abdomen Ultrasound 12/06/24 07:41 IMPRESSION: 1: Status post cholecystectomy with expected prominence of the common bile duct. If there is concern for obstructing stone or mass in the duct, consider MRCP study. Chest X-Ray 12/13/24 13:14 IMPRESSION: 1. Unchanged elevation of left hemidiaphragm with opacity left mid to lower lung zone consistent with associated atelectasis and/or pneumonia. 2. Cardiomegaly. Labs Labs: Laboratory Results - last 24 hr 12/13/24 06:09 WBC 6.1 RBC 3.42 L Hgb 9.2 L Hct 31.4 L MCV 91.8 MCH 26.9 MCHC 29.3 L RDW 17.6 H Plt Count 213 MPV 10.8 H PT 41.1 H D INR 4.5 Sodium 135 L Potassium 3.6 Chloride 90 L Carbon Dioxide 38 H Anion Gap 7 BUN 29 H Creatinine 1.65 H Estim Creat Clear Calc 24 Estimated GFR 31 L Glucose 94 Calcium 9.2 Magnesium 2.0 Quality VTE Prophylaxis VTE prophylaxis: mechanical ordered
[2024-12-13] MEDS: traZODone HCL 50 MG TABLET PO (21:41)
[2024-12-14] VITALS (15 sets, daily range): BP systolic 86–100; BP diastolic 52–68; PULSE 51–64; RESP 14–20; TEMP 36.1–36.6; O2SAT 94–99
[2024-12-14] MEDS: cefTRIAXone 2 GM/NS 100 ML 2 GM/100 ML BAG IVPB ×2 (01:48→13:22)
[2024-12-14] MEDS: AMPICILLIN 2 GM/NS 100 ML 2 GM/100 ML BAG IVPB ×3 (06:37→21:24)
[2024-12-14] MEDS: methocarbamoL 750 MG TABLET PO ×3 (06:38→20:28)
[2024-12-14] MEDS: CENTRAL LINE FLUSH 10 ML IV PUSH ×3 (06:38→21:31)
[2024-12-14 07:29] LABS: Hematocrit 31.5 % (37.0-47.0); Mean Corpuscular HGB Conc 28.6 g/dl (32-36); Mean Corpuscular Hemoglobin 26.5 pg (26-34); Mean Corpuscular Volume 92.9 fl (80-100); Mean Platelet Volume 11.7 fl (7.4-10.4); Platelet Count Result 224 k/mm3 (150-375); Red Blood Count 3.39 M/mm3 (4.2-5.4); Red Cell Distribution Width 17.7 % (11.5-14.5); White Blood Count 5.1 K/mm3 (4.5-10.0)
[2024-12-14 08:07] LABS: Anion Gap 8 mmol/L (4-12); Blood Urea Nitrogen 25 mg/dL (7-17); Calcium 9.2 mg/dL (8.4-10.2); Carbon Dioxide 38 mmol/L (22-30); Chloride 92 mmol/L (98-107); Estimated CRCL calculation 29 ml/min; Estimated Glomerular Filt Rate 40; Glucose 89 mg/dL (65-110); Magnesium 2.1 mg/dL (1.6-2.3); Potassium 3.7 mmol/L (3.4-5.0); Sodium 138 mmol/L (137-145)
[2024-12-14] MEDS: FLUTICASONE/UMECLIDIN/VILANTER 100-62.5-25 MCG ELLIPTA 1 PUFF INHALATION (08:35)
[2024-12-14] MEDS: POTASSIUM CHLORIDE 20 MEQ ER TABLET 40 MEQ PO ×3 (09:06→17:53)
[2024-12-14] MEDS: ROSUVASTATIN 10 MG TABLET PO (09:08)
[2024-12-14] MEDS: FERROUS SULFATE 325 MG TABLET DR BY MOUTH (09:08)
[2024-12-14] MEDS: GABAPENTIN 300 MG CAPSULE PO ×3 (09:08→17:53)
[2024-12-14] MEDS: SERTRALINE HCL 50 MG TABLET 100 MG PO (09:08)
[2024-12-14] MEDS: SACCHAROMYCES BOULARDII 250 MG CAPSULE PO ×3 (09:08→17:53)
[2024-12-14] MEDS: FAMOTIDINE 20 MG TABLET 40 MG PO (09:08)
[2024-12-14] MEDS: FLUTICASONE PROPIONATE 0.05% NA SPR 16 GM BTL (*BKC) 2 SPRAY NASAL (09:09)
[2024-12-14] MEDS: polyethylene glycoL 3350 17 GM POWD.PACK PO (09:10)
[2024-12-14 09:12] LABS: INR 4.6; Prothrombin Time 42.1 Seconds (11.1-14.7)
--- NOTE | 2024-12-14 11:54 | P.PNCA_ITS ---
Progress Note: A&P Assessment and Plan (1) Acute on chronic heart failure with preserved ejection fraction: Code(s): I50.33 - Acute on chronic diastolic (congestive) heart failure Status: Acute Plan Acute on chronic heart failure with preserved LVEF Acute hypoxic respiratory failure Possible pneumonia Coronary artery disease s/p 1V CABG with SVG to RCA in 2021 Mechanical aortic valve (Lance mattson, 2019) Mitral valve repair 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 Yesterday December 13 I discontinued IV Lasix 40 mg daily. She appears to be euvolemic today as she is lying flat in bed. Creatinine improved. I will start Lasix 40 mg p.o. daily when monitoring creatinine and blood pressure.. Patient remains short of breath but I think this is related more to COPD. She does use home oxygen at night. I think shows progression of the underlying COPD and therefore I anticipate that she will require oxygen continuously. -in regards to history of hypertension continue carvedilol at 3.125 mg b.i.d.. Her blood pressures are soft and therefore carvedilol was reduced from 12.5 which she takes at home to 3.125 mg b.i.d.. -in regards to acute kidney injury, improved. Start p.o. diuretic today. Avoid hypotension. -regards to mechanical aortic valve, continue to hold warfarin as INR is supratherapeutic. -in regards to hyperlipidemia continue atorvastatin. -regards to left bundle branch block, heart rate upper 50s and low 60s. Will reduce the carvedilol dosage. Order echo to rule out worsening heart function. -regards to possible pneumonia, management of antibiotic per primary team. Also seems that she has underlying osteomyelitis? Subjective Date/time seen: 12/14/24 11:54 Chief complaint CHF Interval history: Cardiology follow up visit. Patient is being seen for CHF States she is feeling better than yesterday but still has shortness of breath. No chest pain, palpitations, swelling. 12/12/2024: Feeling about the same today as she did yesterday but does not have any specific complaints. Date of service 12/13/2024: Resting comfortably in bed. She still has shortness of breath. Requiring oxygen. Has cough intermittently. Date of service: 12/14/2024-resting comfortably in bed in semi flat position. Remains on oxygen. Chest some cough intermittently. Review of Systems Review of Systems: All systems reviewed & are unremarkable except as noted in HPI and below (HPI) Exam Const: General: no acute distress Other: Chronically ill appearing female HENMT: Mouth: Yes moist mucous membranes Resp: Effort & Inspection: normal respiratory effort Auscultation: crackles, wheezes and diminished lung sounds Other: On supplemental oxygen Cardio: Rhythm: abnormal rhythm irregularly irregular Other: + Mechanical click. No lower extremity e mali Urinary Catheter: Urinary Catheter: patent and draining Skin: General skin exam: normal color Neuro: Speech: normal speech Psych: Mental Status: mental status grossly normal Affect: normal affect Objective Data Vital Signs Vital Signs: Vital Signs - 24 hr 12/13/24 12:00 12/13/24 14:00 12/13/24 16:00 Temperature 36.4 C Pulse Rate 61 73 57 L Respiratory Rate 18 Blood Pressure 106/73 Pulse Oximetry 96 Oxygen Delivery Oxygen Flow Rate 12/13/24 20:00 12/13/24 20:34 12/13/24 21:41 Temperature 36.0 C L Pulse Rate 67 75 55 L Respiratory Rate 16 Blood Pressure 101/55 L Pulse Oximetry 98 Oxygen Delivery Oxygen Flow Rate 12/14/24 00:00 12/14/24 04:00 12/14/24 06:00 Temperature 36.1 C L Pulse Rate 54 L 51 L 60 Respiratory Rate 16 Blood Pressure 96/67 L Pulse Oximetry 98 Oxygen Delivery Oxygen Flow Rate 12/14/24 08:35 12/14/24 08:35 12/14/24 09:09 Temperature Pulse Rate 63 64 55 L Respiratory Rate 20 20 Blood Pressure Pulse Oximetry 94 Oxygen Delivery Nasal Cannula Oxygen Flow Rate 2 Intake/Output Intake/Output: Intake & Output 12/11/24 12/12/24 12/13/24 12/14/24 23:59 23:59 23:59 23:59 Intake Total 1650 1364 1600 120 Output Total 1150 1500 Balance 500 -136 1600 120 Meds/Results Medications: Active Medications Generic Name Dose Route Start Last Admin Trade Name Freq PRN Reason Stop Dose Admin Acetaminophen 650 mg 12/05/24 01:09 12/05/24 17:11 Acetaminophen 325 Mg Tablet PO 650 mg Q4H PRN Administration Mild Pain (1-3) or Fever Albuterol 1 puff 12/05/24 15:27 12/06/24 01:43 Albuterol Sulfate (*Sp) Aerosol 1 Puff INHALATION 1 puff Q4H PRN Administration Shortness Of Breath Alteplase, Recombinant 2 mg 12/14/24 09:35 Alteplase 2 Mg Vial (Cathflo) IV PUSH ONCE PRN Line Occlusion Carvedilol 3.125 mg 12/13/24 21:00 12/14/24 09:09 Carvedilol 3.125 Mg Tablet PO Not Given Q12HR GLORY Cyclobenzaprine HCl 10 mg 12/10/24 10:15 Cyclobenzaprine Hcl 10 Mg Tablet PO BID PRN muscle spasm Famotidine 40 mg 12/06/24 09:00 12/14/24 09:08 Famotidine 20 Mg Tablet PO 40 mg DAILY GLORY Administration Ferrous Sulfate 325 mg 12/06/24 09:00 12/14/24 09:08 Ferrous Sulfate [address] BY MOUTH 325 mg DAILY GLORY Administration Fluticasone Propionate 2 spray 12/06/24 09:00 12/14/24 09:09 Fluticasone Propionate 0.05% Na Spr 16 Gm Btl (*Bkc) NASAL 2 spray DAILY GLORY Administration Fluticasone/Umeclidinium/Vilanterol 1 puff 12/11/24 08:00 12/14/24 08:35 Fluticasone/Umeclidin/Vilanter 100-62.5-25 Mcg Ellipta INHALATION 1 puff DAILYRT GLORY Administration Furosemide 40 mg 12/14/24 11:55 Furosemide 40 Mg Tablet PO DAILY GLORY Gabapentin 300 mg 12/05/24 17:00 12/14/24 09:08 Gabapentin 300 Mg Capsule PO 300 mg TID GLORY Administration Hydroxyzine HCl 12.5 mg 12/05/24 12:27 12/09/24 17:23 Hydroxyzine Hcl 12.5 Mg Tablet PO 12.5 mg Q6H PRN Administration Agitation Hydroxyzine HCl 10 mg 12/10/24 10:15 Hydroxyzine Hcl 10 Mg Tablet PO Q4H PRN anxiety Ceftriaxone Sodium 2 gm in 100 mls @ 200 mls/hr 12/07/24 14:00 12/14/24 01:48 Rocephin 2 Gm/Ns 100 Ml IVPB 12/23/24 23:59 200 mls/hr Q12H GLORY Administration Ampicillin Sodium 2 gm in 100 mls @ 200 mls/hr 12/12/24 14:00 12/14/24 06:37 Ampicillin 2 Gm/Ns 100 Ml IVPB 12/23/24 22:00 200 mls/hr Q8HR GLORY Administration Lidocaine 1 patch 12/11/24 09:00 12/14/24 09:09 Lidocaine 5% Patch TOPICAL Not Given DAILY GLORY Methocarbamol 750 mg 12/11/24 07:30 12/14/24 06:38 Methocarbamol 750 Mg Tablet PO 750 mg Q8HR GLORY Administration Ondansetron HCl 4 mg 12/05/24 01:09 Ondansetron Inj 4 Mg/2 Ml Vial IV PUSH Q4H PRN Nausea Ondansetron HCl 4 mg 12/10/24 10:15 Ondansetron Hcl Odt 4 Mg Tablet PO Q8H PRN nausea and vomiting Oxycodone HCl 7.5 mg 12/10/24 10:15 12/12/24 20:15 Oxycodone Hcl (*Crx) 2.5 Mg Tab Ir PO 7.5 mg Q4H PRN Administration PAIN 7-10 Oxycodone HCl 5 mg 12/10/24 11:31 12/12/24 12:09 Oxycodone Hcl (*Crx) 5 Mg Tab Ir PO 5 mg Q4H PRN Administration Pain Rated 4-6 Perflutren Lipid Microsphere 0 ml 12/13/24 12:47 Perflutren Lipid Microspheres 1.5 Ml Vial Diluted To 10 Ml Total Volume IV PUSH 12/16/24 12:47 ONCE PRN adequate visualization Protocol Polyethylene Glycol 17 gm 12/06/24 09:00 12/14/24 09:10 Polyethylene Glycol 3350 17 Gm Powd.Pack PO 17 gm DAILY GLORY Administration Potassium Chloride 40 meq 12/08/24 17:00 12/14/24 09:06 Potassium Chloride 20 Meq Er Tablet PO 40 meq TID GLORY Administration Rosuvastatin Calcium 10 mg 12/13/24 09:00 12/14/24 09:08 Rosuvastatin 10 Mg Tablet PO 10 mg QAM GLORY Administration Saccharomyces Boulardii 250 mg 12/11/24 17:00 12/14/24 09:08 Saccharomyces Boulardii 250 Mg Capsule PO 250 mg TID GLORY Administration Sertraline HCl 100 mg 12/06/24 09:00 12/14/24 09:08 Sertraline Hcl 50 Mg Tablet PO 100 mg DAILY GLORY Administration Sodium Chloride 10 ml 12/05/24 22:00 12/14/24 06:38 Central Line Flush IV PUSH 10 ml Q8HR GLORY Administration Sodium Chloride 10 ml 12/05/24 14:31 Central Line Flush IV PUSH PRN PRN with TPN bag changes Sodium Chloride 20 ml 12/05/24 14:31 12/11/24 05:08 Central Line Flush IV PUSH 20 ml PRN PRN Administration after blood draws Trazodone HCl 50 mg 12/10/24 21:00 12/13/24 21:41 Trazodone Hcl 50 Mg Tablet PO 50 mg HS GLORY Administration Warfarin Sodium 4 mg 12/12/24 17:00 12/12/24 17:28 Warfarin (*Pbkc) 4 Mg Tablet PO 4 mg DAILY@1700 GLORY Administration Radiology Results: ITS Impressions Chest CTA 12/04/24 05:22 Impression: No evidence of pulmonary embolus, aortic dissection, or aortic aneurysm. Small left pleural effusion and minimal right pleural effusion, with left lower lobe atelectasis and probable minimal pulmonary edema. Correlate clinically for left lower lobe pneumonia. 4.5 x 2.4 x 4.5 cm hematoma just superficial to the left pectoralis major muscle with small bubble of air within it. Correlate for recent trauma or procedure in this region. T10 compression fracture is new from prior exam. Large Schmorl's node at the superior plate of T11 and mild erosive change at the inferior endplate of T10 are also new. These are likely degenerative/related to fracture, however osteomyelitis/discitis is a potential alternative consideration. If this latter diagnosis is of clinical concern, then MRI with and without contrast recommended for further evaluation. Abdomen Ultrasound 12/06/24 07:41 IMPRESSION: 1: Status post cholecystectomy with expected prominence of the common bile duct. If there is concern for obstructing stone or mass in the duct, consider MRCP study. Chest X-Ray 12/13/24 13:14 IMPRESSION: 1. Unchanged elevation of left hemidiaphragm with opacity left mid to lower lung zone consistent with associated atelectasis and/or pneumonia. 2. Cardiomegaly. Labs Labs: Laboratory Results - last 24 hr 12/14/24 12/14/24 06:43 06:44 WBC 5.1 RBC 3.39 L Hgb 9.0 L Hct 31.5 L MCV 92.9 MCH 26.5 MCHC 28.6 L RDW 17.7 H Plt Count 224 MPV 11.7 H PT 42.1 H INR 4.6 Sodium 138 Potassium 3.7 Chloride 92 L Carbon Dioxide 38 H Anion Gap 8 BUN 25 H Creatinine 1.33 H Estim Creat Clear Calc 29 Estimated GFR 40 L Glucose 89 Calcium 9.2 Magnesium 2.1 Quality VTE Prophylaxis VTE prophylaxis: mechanical ordered
[2024-12-14] MEDS: FUROSEMIDE 40 MG TABLET PO (12:12)
[2024-12-14] MEDS: SODIUM CHLORIDE 0.9% IV 250 ML IV CONT (14:46)
--- NOTE | 2024-12-14 15:18 | PM.IMPN ---
Progress Note: A&P Assessment and Plan (1) Hospital acquired PNA: Code(s): J18.9 - Pneumonia, unspecified organism; Y95 - Nosocomial condition Status: Acute Assessment and Plan: CXR: Left basilar atelectasis versus pneumonia with possible Effusion - Risk Factors: none - Complicating Factors: none - started on HAP: Cefepime & Vanc (discontinued due to (-) MRSA) - change to iv ampicilin and iv rocephin (2) Acute and chronic respiratory failure with hypoxia: Code(s): J96.21 - Acute and chronic respiratory failure with hypoxia Status: Acute Assessment and Plan: Symptoms: Shortness of breath Chest XR: Left basilar atelectasis versus pneumonia with possible Effusion dc breathing treatments (3) Transaminitis: Code(s): R74.01 - Elevation of levels of liver transaminase levels Status: Acute Assessment and Plan: Upon admission:AST 239, ALT 137 Repeat: 183, 144 respectively Physical exam benign, no abdominal pain RUQ US reveiwed with pt (4) S/P AVR (aortic valve replacement): Code(s): Z95.2 - Presence of prosthetic heart valve Status: Acute (5) H/O mitral valve repair: Code(s): Z98.890 - Other specified postprocedural states Status: Acute (6) H/O mechanical aortic valve replacement: Code(s): Z95.2 - Presence of prosthetic heart valve Status: Acute (7) Cardiomyopathy: Code(s): I42.9 - Cardiomyopathy, unspecified Status: Acute Assessment and Plan: pt switched to iv lasix increase dose more diuresis D/w pulmology MD (8) HTN (hypertension): Code(s): I10 - Essential (primary) hypertension Status: Acute Assessment and Plan: watch blood pressures chronic and stable (9) Anemia: Code(s): D64.9 - Anemia, unspecified Status: Acute Assessment and Plan: order iv venofer today for hb of 7 hb improved to 8.7 continue ferrous sulphate Plan patient with chronic medical conditions and in and out of hospital had developed hospital aquired PNA as well OM in her spine, and with underling COPD, patient is being treated with ceftriaxone and Ampicillin, until 12/23, patient is seen by her handicapper harness racing and clinical symptoms are improving, repeat chest x-ray shows persisting pneumonia, patient has mechanical valve replaced in 2021 taking warfarin and her INR on 12/11 was 3.2 held warfarin goal is 2-3 INR. patient warfarin was reduced to 4mg on 12/13 INR was 4.5 held warfarin, today her INR is 4.6 will hold warfarin, patient with significant cardiac history acute on chronic diastolic heart failure seen by her physical security specialist and recommended to continue diuresed the patient with IV Lasix 40mg BID, however her Scr is rising, and physical security specialist stopped IV lasix 40mg BID and started on Lasix 40mg PO qd, will monitor. dvt prop pt is on coumadin monitor INRS Subjective Date/time seen: 12/14/24 15:18 Interval history: Ms. Junior is a 69-year-old female with history of AFib status post pacemaker, CKD, recent T10/T11 vertebral osteomyelitis, bacterial endocarditis, infected pacemaker hardware status post removal on 11/25/2024 at [facility], heparin-induced thrombocytopenia, aortic valve replacement/aortic grafting replacement in 2021, previous ECMO in 2021 due to mediastinum night is and aortic/ventricular injury requiring repair. She was recently hospitalized at [facility] for bacteremia with Enterococcus and then discharged on 6 weeks of antibiotics by a right-sided PICC line which was scheduled to be completed in 01/2025. 12/05/2024 Patient sitting comfortably in bed at time of exam. Vital signs appear to be stable with a pulse rate of 97 and O2 saturation of 94% on 2 L NC, however patient states shortness of breath has improved when compared to yesterday. Pending transfer to [facility] at this time. 12/06/2024 Pt needing 3 liters of oxygen today cxr and abg ordered and reviewed Order iv lasix for pt for pulmonary edema Order venofer for low hb Pt awaiting transfer to [facility] recent pacemaker removal Pt had all her cardiac procedures in [facility] 12/07/2024 Pts coumadin restarted Pt restarted on her ampicillin Pt having low potassium krider ordered for pt Pt still sob pt started on iv lasix D/w pt and son by the bedside Awaiting transfer to [facility] D/w Dr Reyes 12/08/2024 D/w pulmology ok to continue present care with iv abx and iv lasix pt still sob increase diuresis today pt had potassium rider continue oral potassium meds pt awaiting [place] transfer bed INR subtherapeutic continue coumadin dosing patient with chronic medical conditions and in and out of hospital had developed hospital aquired PNA as well OM in her spine, and with underling COPD, patient is being treated with ceftriaxone and Ampicillin, until 12/23, patient is seen by her handicapper harness racing and clinical symptoms are improving, repeat chest x-ray shows persisting pneumonia, patient has mechanical valve replaced in 2021 taking warfarin and her INR on 12/11 was 3.2 held warfarin goal is 2-3 INR. patient warfarin was reduced to 4mg on 12/13 INR was 4.5 held warfarin, today her INR is 4.6 will hold warfarin, patient with significant cardiac history acute on chronic diastolic heart failure seen by her physical security specialist and recommended to continue diuresed the patient with IV Lasix 40mg BID, however her Scr is rising, and physical security specialist stopped IV lasix 40mg BID and started on Lasix 40mg PO qd, will monitor. Review of Systems Review of Systems: Ongoing SOB All systems reviewed & are unremarkable except as noted in HPI and below (HPI) Exam Narrative: Patient is comfortable, NAD HEENT: eyes are clear and none icteric LUNGS: Bilateral poor air entry with rhonchi HEART: RR S1S2 ABD: BS+, Soft and nontender Lower extremities: no edema SKIN: nonjaundiced Neuro: grossly intact. Objective Data Vital Signs Vital Signs: Vital Signs - 24 hr 12/13/24 16:00 12/13/24 20:00 12/13/24 20:34 Temperature 36.0 C L Pulse Rate 57 L 67 75 Respiratory Rate 16 Blood Pressure 101/55 L Pulse Oximetry 98 Oxygen Delivery Oxygen Flow Rate 12/13/24 21:41 12/14/24 00:00 12/14/24 04:00 Temperature Pulse Rate 55 L 54 L 51 L Respiratory Rate Blood Pressure Pulse Oximetry Oxygen Delivery Oxygen Flow Rate 12/14/24 06:00 12/14/24 08:35 12/14/24 08:35 Temperature 36.1 C L Pulse Rate 60 63 64 Respiratory Rate 16 20 20 Blood Pressure 96/67 L Pulse Oximetry 98 94 Oxygen Delivery Nasal Cannula Oxygen Flow Rate 2 12/14/24 09:09 Temperature Pulse Rate 55 L Respiratory Rate Blood Pressure Pulse Oximetry Oxygen Delivery Oxygen Flow Rate Intake/Output Intake/Output: Intake & Output 12/11/24 12/12/24 12/13/24 12/14/24 23:59 23:59 23:59 23:59 Intake Total 1650 1364 1600 440 Output Total 1150 1500 Balance 500 -136 1600 440 Meds/Results Medications: Active Medications Generic Name Dose Route Start Last Admin Trade Name Freq PRN Reason Stop Dose Admin Acetaminophen 650 mg 12/05/24 01:09 12/05/24 17:11 Acetaminophen 325 Mg Tablet PO 650 mg Q4H PRN Administration Mild Pain (1-3) or Fever Albuterol 1 puff 12/05/24 15:27 12/06/24 01:43 Albuterol Sulfate (*Sp) Aerosol 1 Puff INHALATION 1 puff Q4H PRN Administration Shortness Of Breath Alteplase, Recombinant 2 mg 12/14/24 09:35 Alteplase 2 Mg Vial (Cathflo) IV PUSH ONCE PRN Line Occlusion Carvedilol 3.125 mg 12/13/24 21:00 12/14/24 09:09 Carvedilol 3.125 Mg Tablet PO Not Given Q12HR GLORY Cyclobenzaprine HCl 10 mg 12/10/24 10:15 Cyclobenzaprine Hcl 10 Mg Tablet PO BID PRN muscle spasm Famotidine 40 mg 12/06/24 09:00 12/14/24 09:08 Famotidine 20 Mg Tablet PO 40 mg DAILY GLORY Administration Ferrous Sulfate 325 mg 12/06/24 09:00 12/14/24 09:08 Ferrous Sulfate [address] BY MOUTH 325 mg DAILY GLORY Administration Fluticasone Propionate 2 spray 12/06/24 09:00 12/14/24 09:09 Fluticasone Propionate 0.05% Na Spr 16 Gm Btl (*Bkc) NASAL 2 spray DAILY GLORY Administration Fluticasone/Umeclidinium/Vilanterol 1 puff 12/11/24 08:00 12/14/24 08:35 Fluticasone/Umeclidin/Vilanter 100-62.5-25 Mcg Ellipta INHALATION 1 puff DAILYRT GLORY Administration Furosemide 40 mg 12/14/24 11:55 12/14/24 12:12 Furosemide 40 Mg Tablet PO 40 mg DAILY GLORY Administration Gabapentin 300 mg 12/05/24 17:00 12/14/24 12:12 Gabapentin 300 Mg Capsule PO 300 mg TID GLORY Administration Hydroxyzine HCl 12.5 mg 12/05/24 12:27 12/09/24 17:23 Hydroxyzine Hcl 12.5 Mg Tablet PO 12.5 mg Q6H PRN Administration Agitation Hydroxyzine HCl 10 mg 12/10/24 10:15 Hydroxyzine Hcl 10 Mg Tablet PO Q4H PRN anxiety Ceftriaxone Sodium 2 gm in 100 mls @ 200 mls/hr 12/07/24 14:00 12/14/24 13:22 Rocephin 2 Gm/Ns 100 Ml IVPB 12/23/24 23:59 200 mls/hr Q12H GLORY Administration Ampicillin Sodium 2 gm in 100 mls @ 200 mls/hr 12/12/24 14:00 12/14/24 14:16 Ampicillin 2 Gm/Ns 100 Ml IVPB 12/23/24 22:00 200 mls/hr Q8HR GLORY Administration Sodium Chloride 250 mls @ 250 mls/hr 12/14/24 14:24 12/14/24 14:46 Normal Saline Iv IV CONT 12/14/24 15:23 250 mls/hr .Q1H ONE Administration Lidocaine 1 patch 12/11/24 09:00 12/14/24 09:09 Lidocaine 5% Patch TOPICAL Not Given DAILY GLORY Methocarbamol 750 mg 12/11/24 07:30 12/14/24 13:22 Methocarbamol 750 Mg Tablet PO 750 mg Q8HR GLORY Administration Ondansetron HCl 4 mg 12/05/24 01:09 Ondansetron Inj 4 Mg/2 Ml Vial IV PUSH Q4H PRN Nausea Ondansetron HCl 4 mg 12/10/24 10:15 Ondansetron Hcl Odt 4 Mg Tablet PO Q8H PRN nausea and vomiting Oxycodone HCl 7.5 mg 12/10/24 10:15 12/12/24 20:15 Oxycodone Hcl (*Crx) 2.5 Mg Tab Ir PO 7.5 mg Q4H PRN Administration PAIN 7-10 Oxycodone HCl 5 mg 12/10/24 11:31 12/12/24 12:09 Oxycodone Hcl (*Crx) 5 Mg Tab Ir PO 5 mg Q4H PRN Administration Pain Rated 4-6 Perflutren Lipid Microsphere 0 ml 12/13/24 12:47 Perflutren Lipid Microspheres 1.5 Ml Vial Diluted To 10 Ml Total Volume IV PUSH 12/16/24 12:47 ONCE PRN adequate visualization Protocol Polyethylene Glycol 17 gm 12/06/24 09:00 12/14/24 09:10 Polyethylene Glycol 3350 17 Gm Powd.Pack PO 17 gm DAILY GLORY Administration Potassium Chloride 40 meq 12/08/24 17:00 12/14/24 12:12 Potassium Chloride 20 Meq Er Tablet PO 40 meq TID GLORY Administration Rosuvastatin Calcium 10 mg 12/13/24 09:00 12/14/24 09:08 Rosuvastatin 10 Mg Tablet PO 10 mg QAM GLORY Administration Saccharomyces Boulardii 250 mg 12/11/24 17:00 12/14/24 12:13 Saccharomyces Boulardii 250 Mg Capsule PO 250 mg TID GLORY Administration Sertraline HCl 100 mg 12/06/24 09:00 12/14/24 09:08 Sertraline Hcl 50 Mg Tablet PO 100 mg DAILY GLORY Administration Sodium Chloride 10 ml 12/05/24 22:00 12/14/24 14:46 Central Line Flush IV PUSH 10 ml Q8HR GLORY Administration Sodium Chloride 10 ml 12/05/24 14:31 Central Line Flush IV PUSH PRN PRN with TPN bag changes Sodium Chloride 20 ml 12/05/24 14:31 12/11/24 05:08 Central Line Flush IV PUSH 20 ml PRN PRN Administration after blood draws Trazodone HCl 50 mg 12/10/24 21:00 12/13/24 21:41 Trazodone Hcl 50 Mg Tablet PO 50 mg HS GLORY Administration Warfarin Sodium 4 mg 12/12/24 17:00 12/14/24 12:10 Warfarin (*Pbkc) 4 Mg Tablet PO Not Given DAILY@1700 [facility] Radiology Results: ITS Impressions Chest CTA 12/04/24 05:22 Impression: No evidence of pulmonary embolus, aortic dissection, or aortic aneurysm. Small left pleural effusion and minimal right pleural effusion, with left lower lobe atelectasis and probable minimal pulmonary edema. Correlate clinically for left lower lobe pneumonia. 4.5 x 2.4 x 4.5 cm hematoma just superficial to the left pectoralis major muscle with small bubble of air within it. Correlate for recent trauma or procedure in this region. T10 compression fracture is new from prior exam. Large Schmorl's node at the superior plate of T11 and mild erosive change at the inferior endplate of T10 are also new. These are likely degenerative/related to fracture, however osteomyelitis/discitis is a potential alternative consideration. If this latter diagnosis is of clinical concern, then MRI with and without contrast recommended for further evaluation. Abdomen Ultrasound 12/06/24 07:41 IMPRESSION: 1: Status post cholecystectomy with expected prominence of the common bile duct. If there is concern for obstructing stone or mass in the duct, consider MRCP study. Chest X-Ray 12/13/24 13:14 IMPRESSION: 1. Unchanged elevation of left hemidiaphragm with opacity left mid to lower lung zone consistent with associated atelectasis and/or pneumonia. 2. Cardiomegaly. Labs Labs: Laboratory Results - last 24 hr 12/14/24 12/14/24 06:43 06:44 WBC 5.1 RBC 3.39 L Hgb 9.0 L Hct 31.5 L MCV 92.9 MCH 26.5 MCHC 28.6 L RDW 17.7 H Plt Count 224 MPV 11.7 H PT 42.1 H INR 4.6 Sodium 138 Potassium 3.7 Chloride 92 L Carbon Dioxide 38 H Anion Gap 8 BUN 25 H Creatinine 1.33 H Estim Creat Clear Calc 29 Estimated GFR 40 L Glucose 89 Calcium 9.2 Magnesium 2.1 Quality VTE Prophylaxis VTE prophylaxis: mechanical ordered
[2024-12-14] MEDS: SODIUM CHLORIDE 0.9% IV 250 ML 999 ML IV CONT (15:34)
[2024-12-14] MEDS: traZODone HCL 50 MG TABLET PO (20:27)
[2024-12-14] MEDS: carvediloL 3.125 MG TABLET PO (20:27)
[2024-12-15] VITALS (14 sets, daily range): BP systolic 103–108; BP diastolic 61–71; PULSE 52–81; RESP 14–20; TEMP 36.1–36.3; O2SAT 96–100
[2024-12-15] MEDS: cefTRIAXone 2 GM/NS 100 ML 2 GM/100 ML BAG IVPB ×2 (02:08→14:03)
[2024-12-15] MEDS: oxyCODONE HCL (*CRX) 5 MG TAB IR PO ×2 (04:26→20:40)
[2024-12-15 05:04] LABS: Hematocrit 30.3 % (37.0-47.0); Hemoglobin 8.6 g/dL (12.0-15.0); Mean Corpuscular HGB Conc 28.4 g/dl (32-36); Mean Corpuscular Hemoglobin 26.8 pg (26-34); Mean Corpuscular Volume 94.4 fl (80-100); Platelet Count Result 202 k/mm3 (150-375); Red Blood Count 3.21 M/mm3 (4.2-5.4); Red Cell Distribution Width 17.6 % (11.5-14.5); White Blood Count 4.9 K/mm3 (4.5-10.0)
[2024-12-15 05:19] LABS: INR 4.4; Prothrombin Time 40.2 Seconds (11.1-14.7)
[2024-12-15 05:26] LABS: Anion Gap 7 mmol/L (4-12); Blood Urea Nitrogen 19 mg/dL (7-17); Calcium 9.3 mg/dL (8.4-10.2); Carbon Dioxide 35 mmol/L (22-30); Chloride 97 mmol/L (98-107); Estimated CRCL calculation 29 ml/min; Estimated Glomerular Filt Rate 39; Glucose 94 mg/dL (65-110); Magnesium 2.1 mg/dL (1.6-2.3); Sodium 139 mmol/L (137-145)
[2024-12-15] MEDS: methocarbamoL 750 MG TABLET PO ×3 (05:51→20:40)
[2024-12-15] MEDS: CENTRAL LINE FLUSH 10 ML IV PUSH ×3 (05:51→20:47)
[2024-12-15] MEDS: AMPICILLIN 2 GM/NS 100 ML 2 GM/100 ML BAG IVPB ×3 (05:52→20:43)
[2024-12-15] MEDS: FLUTICASONE/UMECLIDIN/VILANTER 100-62.5-25 MCG ELLIPTA 1 PUFF INHALATION (07:10)
[2024-12-15] MEDS: FAMOTIDINE 20 MG TABLET 40 MG PO (08:50)
[2024-12-15] MEDS: POTASSIUM CHLORIDE 20 MEQ ER TABLET 40 MEQ PO ×3 (08:50→16:15)
[2024-12-15] MEDS: FERROUS SULFATE 325 MG TABLET DR BY MOUTH (08:50)
[2024-12-15] MEDS: carvediloL 3.125 MG TABLET PO ×2 (08:50→20:38)
[2024-12-15] MEDS: SACCHAROMYCES BOULARDII 250 MG CAPSULE PO ×3 (08:50→16:15)
[2024-12-15] MEDS: SERTRALINE HCL 50 MG TABLET 100 MG PO (08:50)
[2024-12-15] MEDS: FUROSEMIDE 40 MG TABLET PO (08:51)
[2024-12-15] MEDS: GABAPENTIN 300 MG CAPSULE PO ×3 (08:51→16:15)
[2024-12-15] MEDS: ROSUVASTATIN 10 MG TABLET PO (08:51)
[2024-12-15] MEDS: FLUTICASONE PROPIONATE 0.05% NA SPR 16 GM BTL (*BKC) 2 SPRAY NASAL (08:52)
[2024-12-15] MEDS: LIDOCAINE 5% PATCH 1 PATCH TOPICAL (08:56)
--- NOTE | 2024-12-15 15:46 | P.PNIM_ITS ---
Progress Note: A&P Assessment and Plan (1) Hospital acquired PNA: Code(s): J18.9 - Pneumonia, unspecified organism; Y95 - Nosocomial condition Status: Acute Assessment and Plan: CXR: Left basilar atelectasis versus pneumonia with possible Effusion - Risk Factors: none - Complicating Factors: none - started on HAP: Cefepime & Vanc (discontinued due to (-) MRSA) - change to iv ampicilin and iv rocephin (2) Acute and chronic respiratory failure with hypoxia: Code(s): J96.21 - Acute and chronic respiratory failure with hypoxia Status: Acute Assessment and Plan: * Symptoms: Shortness of breath * Chest XR: Left basilar atelectasis versus pneumonia with possible Effusion * dc breathing treatments (3) Transaminitis: Code(s): R74.01 - Elevation of levels of liver transaminase levels Status: Acute Assessment and Plan: * Upon admission:AST 239, ALT 137 * Repeat: 183, 144 respectively * Physical exam benign, no abdominal pain * RUQ US reveiwed with pt (4) S/P AVR (aortic valve replacement): Code(s): Z95.2 - Presence of prosthetic heart valve Status: Acute (5) H/O mitral valve repair: Code(s): Z98.890 - Other specified postprocedural states Status: Acute (6) H/O mechanical aortic valve replacement: Code(s): Z95.2 - Presence of prosthetic heart valve Status: Acute (7) Cardiomyopathy: Code(s): I42.9 - Cardiomyopathy, unspecified Status: Acute Assessment and Plan: pt switched to iv lasix increase dose more diuresis D/w pulmology MD (8) HTN (hypertension): Code(s): I10 - Essential (primary) hypertension Status: Acute Assessment and Plan: watch blood pressures chronic and stable (9) Anemia: Code(s): D64.9 - Anemia, unspecified Status: Acute Assessment and Plan: order iv venofer today for hb of 7 hb improved to 8.7 continue ferrous sulphate Plan patient with chronic medical conditions and in and out of hospital had developed hospital aquired PNA as well 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 patient warfarin was reduced to 4mg on 12/13 INR was 4.5 held warfarin, held again and her INR is 4.4 will hold warfarin, patient with significant cardiac history acute on chronic diastolic heart failure seen by her warning analyst and recommended to continue diuresed the patient with IV Lasix 40mg BID, however her Scr is rising, and warning analyst stopped IV lasix 40mg BID and started on Lasix 40mg PO qd, will monitor. Patient wish to be transferred back to the [place] where she was treated before arriving to the hospital, will discharge the patient tomorrow, patient son will let the [place] know that she needs to be treated until January 06. pt is on coumadin monitor INRS Subjective Date/time seen: 12/15/24 15:46 Interval history: Ms. Junior is a 69-year-old female with history of AFib status post pacemaker, CKD, recent T10/T11 vertebral osteomyelitis, bacterial endocarditis, infected pacemaker hardware status post removal on 11/25/2024 at [place], heparin-induced thrombocytopenia, aortic valve replacement/aortic grafting replacement in 2021, previous ECMO in 2021 due to mediastinum night is and aortic/ventricular injury requiring repair. She was recently hospitalized at [place] for bacteremia with Enterococcus and then discharged on 6 weeks of antibiotics by a right-sided PICC line which was scheduled to be completed in 01/2025. 12/05/2024 Patient sitting comfortably in bed at time of exam. Vital signs appear to be stable with a pulse rate of 97 and O2 saturation of 94% on 2 L NC, however patient states shortness of breath has improved when compared to yesterday. Pending transfer to [facility] at this time. 12/06/2024 Pt needing 3 liters of oxygen today cxr and abg ordered and reviewed Order iv lasix for pt for pulmonary edema Order venofer for low hb Pt awaiting transfer to [facility] recent pacemaker removal Pt had all her cardiac procedures in [place] 12/07/2024 Pts coumadin restarted Pt restarted on her ampicillin Pt having low potassium krider ordered for pt Pt still sob pt started on iv lasix D/w pt and son by the bedside Awaiting transfer to [facility] D/w Dr Reyes 12/08/2024 D/w pulmology ok to continue present care with iv abx and iv lasix pt still sob increase diuresis today pt had potassium rider continue oral potassium meds pt awaiting [place] transfer bed INR subtherapeutic continue coumadin dosing patient with chronic medical conditions and in and out of hospital had developed hospital aquired PNA as well 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 patient warfarin was reduced to 4mg on 12/13 INR was 4.5 held warfarin, held again and her INR is 4.4 will hold warfarin, patient with significant cardiac history acute on chronic diastolic heart failure seen by her warning analyst and recommended to continue diuresed the patient with IV Lasix 40mg BID, however her Scr is rising, and warning analyst stopped IV lasix 40mg BID and started on Lasix 40mg PO qd, will monitor. Patient wish to be transferred back to the [place] where she was treated before arriving to the hospital, will discharge the patient tomorrow, patient son will let the [place] know that she needs to be treated until January 06. Review of Systems Review of Systems: All systems reviewed & are unremarkable except as noted in HPI and below (HPI) Exam 2 Narrative: Patient is comfortable, NAD HEENT: eyes are clear and none icteric LUNGS: Bilateral poor air entry with rhonchi HEART: RR S1S2 ABD: BS+, Soft and nontender Lower extremities: no edema SKIN: nonjaundiced Neuro: grossly intact. Objective Data Vital Signs Vital Signs: Vital Signs - 24 hr 12/14/24 15:47 12/14/24 15:55 12/14/24 16:00 Temperature Pulse Rate 60 Respiratory Rate Blood Pressure 86/52 L 92/58 L Pulse Oximetry Oxygen Delivery Oxygen Flow Rate 12/14/24 20:00 12/14/24 20:00 12/14/24 20:27 Temperature Pulse Rate 60 59 L 60 Respiratory Rate 17 Blood Pressure Pulse Oximetry 98 Oxygen Delivery Nasal Cannula Oxygen Flow Rate 2 12/14/24 21:15 12/14/24 21:36 12/15/24 00:00 Temperature 36.2 C L Pulse Rate 60 59 L Respiratory Rate 17 Blood Pressure 100/68 Pulse Oximetry 96 98 Oxygen Delivery Nasal Cannula Oxygen Flow Rate 2 12/15/24 04:00 12/15/24 05:59 12/15/24 07:12 Temperature 36.1 C L Pulse Rate 52 L 64 Respiratory Rate 14 Blood Pressure 103/61 Pulse Oximetry 98 96 Oxygen Delivery Nasal Cannula Oxygen Flow Rate 2 12/15/24 08:03 12/15/24 08:50 12/15/24 08:56 Temperature Pulse Rate 61 64 Respiratory Rate 16 Blood Pressure Pulse Oximetry 96 Oxygen Delivery Nasal Cannula Oxygen Flow Rate 2 12/15/24 12:01 12/15/24 14:00 Temperature 36.3 C L Pulse Rate 57 L 81 Respiratory Rate 20 Blood Pressure 108/63 Pulse Oximetry 100 Oxygen Delivery Oxygen Flow Rate Intake/Output Intake/Output: Intake & Output 12/12/24 12/13/24 12/14/24 12/15/24 23:59 23:59 23:59 23:59 Intake Total 1364 5257 061 1665 Output Total 1500 Balance -136 2223 235 6401 Meds/Results Medications: Active Medications Generic Name Dose Route Start Last Admin Trade Name Freq PRN Reason Stop Dose Admin Acetaminophen 650 mg 12/05/24 01:09 12/05/24 17:11 Acetaminophen 325 Mg Tablet PO 650 mg Q4H PRN Administration Mild Pain (1-3) or Fever Albuterol 1 puff 12/05/24 15:27 12/06/24 01:43 Albuterol Sulfate (*Sp) Aerosol 1 Puff INHALATION 1 puff Q4H PRN Administration Shortness Of Breath Alteplase, Recombinant 2 mg 12/14/24 09:35 Alteplase 2 Mg Vial (Cathflo) IV PUSH ONCE PRN Line Occlusion Carvedilol 3.125 mg 12/13/24 21:00 12/15/24 08:50 Carvedilol 3.125 Mg Tablet PO 3.125 mg Q12HR GLORY Administration Cyclobenzaprine HCl 10 mg 12/10/24 10:15 Cyclobenzaprine Hcl 10 Mg Tablet PO BID PRN muscle spasm Famotidine 40 mg 12/06/24 09:00 12/15/24 08:50 Famotidine 20 Mg Tablet PO 40 mg DAILY GLORY Administration Ferrous Sulfate 325 mg 12/06/24 09:00 12/15/24 08:50 Ferrous Sulfate [address] BY MOUTH 325 mg DAILY GLORY Administration Fluticasone Propionate 2 spray 12/06/24 09:00 12/15/24 08:52 Fluticasone Propionate 0.05% Na Spr 16 Gm Btl (*Bkc) NASAL 2 spray DAILY GLORY Administration Fluticasone/Umeclidinium/Vilanterol 1 puff 12/11/24 08:00 12/15/24 07:10 Fluticasone/Umeclidin/Vilanter 100-62.5-25 Mcg Ellipta INHALATION 1 puff DAILYRT GLORY Administration Furosemide 40 mg 12/14/24 11:55 12/15/24 08:51 Furosemide 40 Mg Tablet PO 40 mg DAILY GLORY Administration Gabapentin 300 mg 12/05/24 17:00 12/15/24 12:17 Gabapentin 300 Mg Capsule PO 300 mg TID GLORY Administration Hydroxyzine HCl 12.5 mg 12/05/24 12:27 12/09/24 17:23 Hydroxyzine Hcl 12.5 Mg Tablet PO 12.5 mg Q6H PRN Administration Agitation Hydroxyzine HCl 10 mg 12/10/24 10:15 Hydroxyzine Hcl 10 Mg Tablet PO Q4H PRN anxiety Ceftriaxone Sodium 2 gm in 100 mls @ 200 mls/hr 12/07/24 14:00 12/15/24 14:33 Rocephin 2 Gm/Ns 100 Ml IVPB 01/06/25 23:59 Infused Q12H GLORY Infusion Ampicillin Sodium 2 gm in 100 mls @ 200 mls/hr 12/12/24 14:00 12/15/24 13:56 Ampicillin 2 Gm/Ns 100 Ml IVPB 01/06/25 22:00 Infused Q8HR GLORY Infusion Lidocaine 1 patch 12/11/24 09:00 12/15/24 08:56 Lidocaine 5% Patch TOPICAL 1 patch DAILY GLORY Administration Methocarbamol 750 mg 12/11/24 07:30 12/15/24 13:26 Methocarbamol 750 Mg Tablet PO 750 mg Q8HR GLORY Administration Ondansetron HCl 4 mg 12/05/24 01:09 Ondansetron Inj 4 Mg/2 Ml Vial IV PUSH Q4H PRN Nausea Ondansetron HCl 4 mg 12/10/24 10:15 Ondansetron Hcl Odt 4 Mg Tablet PO Q8H PRN nausea and vomiting Oxycodone HCl 7.5 mg 12/10/24 10:15 12/12/24 20:15 Oxycodone Hcl (*Crx) 2.5 Mg Tab Ir PO 7.5 mg Q4H PRN Administration PAIN 7-10 Oxycodone HCl 5 mg 12/10/24 11:31 12/15/24 04:26 Oxycodone Hcl (*Crx) 5 Mg Tab Ir PO 5 mg Q4H PRN Administration Pain Rated 4-6 Perflutren Lipid Microsphere 0 ml 12/13/24 12:47 Perflutren Lipid Microspheres 1.5 Ml Vial Diluted To 10 Ml Total Volume IV PUSH 12/16/24 12:47 ONCE PRN adequate visualization Protocol Polyethylene Glycol 17 gm 12/06/24 09:00 12/15/24 08:59 Polyethylene Glycol 3350 17 Gm Powd.Pack PO Not Given DAILY GLORY Potassium Chloride 40 meq 12/08/24 17:00 12/15/24 12:17 Potassium Chloride 20 Meq Er Tablet PO 40 meq TID GLORY Administration Rosuvastatin Calcium 10 mg 12/13/24 09:00 12/15/24 08:51 Rosuvastatin 10 Mg Tablet PO 10 mg QAM GLORY Administration Saccharomyces Boulardii 250 mg 12/11/24 17:00 12/15/24 12:17 Saccharomyces Boulardii 250 Mg Capsule PO 250 mg TID GLORY Administration Sertraline HCl 100 mg 12/06/24 09:00 12/15/24 08:50 Sertraline Hcl 50 Mg Tablet PO 100 mg DAILY GLORY Administration Sodium Chloride 10 ml 12/05/24 22:00 12/15/24 13:26 Central Line Flush IV PUSH 10 ml Q8HR GLORY Administration Sodium Chloride 10 ml 12/05/24 14:31 Central Line Flush IV PUSH PRN PRN with TPN bag changes Sodium Chloride 20 ml 12/05/24 14:31 12/11/24 05:08 Central Line Flush IV PUSH 20 ml PRN PRN Administration after blood draws Trazodone HCl 50 mg 12/10/24 21:00 12/14/24 20:27 Trazodone Hcl 50 Mg Tablet PO 50 mg HS [facility] Administration Warfarin Sodium 4 mg 12/12/24 17:00 12/14/24 12:10 Warfarin (*Pbkc) 4 Mg Tablet PO Not Given DAILY@1700 [facility] Radiology Results: ITS Impressions Chest CTA 12/04/24 05:22 Impression: No evidence of pulmonary embolus, aortic dissection, or aortic aneurysm. Small left pleural effusion and minimal right pleural effusion, with left lower lobe atelectasis and probable minimal pulmonary edema. Correlate clinically for left lower lobe pneumonia. 4.5 x 2.4 x 4.5 cm hematoma just superficial to the left pectoralis major muscle with small bubble of air within it. Correlate for recent trauma or procedure in this region. T10 compression fracture is new from prior exam. Large Schmorl's node at the superior plate of T11 and mild erosive change at the inferior endplate of T10 are also new. These are likely degenerative/related to fracture, however osteomyelitis/discitis is a potential alternative consideration. If this latter diagnosis is of clinical concern, then MRI with and without contrast recommended for further evaluation. Abdomen Ultrasound 12/06/24 07:41 IMPRESSION: 1: Status post cholecystectomy with expected prominence of the common bile duct. If there is concern for obstructing stone or mass in the duct, consider MRCP study. Chest X-Ray 12/13/24 13:14 IMPRESSION: 1. Unchanged elevation of left hemidiaphragm with opacity left mid to lower lung zone consistent with associated atelectasis and/or pneumonia. 2. Cardiomegaly. Labs Labs: Laboratory Results - last 24 hr 12/15/24 04:39 WBC 4.9 RBC 3.21 L Hgb 8.6 L Hct 30.3 L MCV 94.4 MCH 26.8 MCHC 28.4 L RDW 17.6 H Plt Count 202 MPV 12.0 H PT 40.2 H INR 4.4 Sodium 139 Potassium 4.0 Chloride 97 L Carbon Dioxide 35 H Anion Gap 7 BUN 19 H Creatinine 1.35 H Estim Creat Clear Calc 29 Estimated GFR 39 L Glucose 94 Calcium 9.3 Magnesium 2.1
[2024-12-15] MEDS: traZODone HCL 50 MG TABLET PO (20:39)
[2024-12-16] VITALS (8 sets, daily range): BP systolic 106–108; BP diastolic 58–77; PULSE 52–64; RESP 14–16; TEMP 36.1–36.5; O2SAT 94–99
[2024-12-16] MEDS: cefTRIAXone 2 GM/NS 100 ML 2 GM/100 ML BAG IVPB ×2 (01:27→11:58)
[2024-12-16] MEDS: methocarbamoL 750 MG TABLET PO ×2 (05:50→13:24)
[2024-12-16] MEDS: CENTRAL LINE FLUSH 10 ML IV PUSH ×2 (05:50→13:25)
[2024-12-16] MEDS: AMPICILLIN 2 GM/NS 100 ML 2 GM/100 ML BAG IVPB ×2 (05:50→13:23)
[2024-12-16] MEDS: oxyCODONE HCL (*CRX) 5 MG TAB IR PO (05:50)
[2024-12-16 06:09] LABS: Hematocrit 29.4 % (37.0-47.0); Hemoglobin 8.4 g/dL (12.0-15.0); Mean Corpuscular HGB Conc 28.6 g/dl (32-36); Mean Corpuscular Hemoglobin 27.4 pg (26-34); Mean Corpuscular Volume 95.8 fl (80-100); Mean Platelet Volume 11.5 fl (7.4-10.4); Platelet Count Result 190 k/mm3 (150-375); Red Blood Count 3.07 M/mm3 (4.2-5.4); White Blood Count 5.1 K/mm3 (4.5-10.0)
[2024-12-16 06:21] LABS: INR 2.7; Prothrombin Time 27.7 Seconds (11.1-14.7)
[2024-12-16 06:29] LABS: Anion Gap 4 mmol/L (4-12); Blood Urea Nitrogen 16 mg/dL (7-17); Calcium 9.2 mg/dL (8.4-10.2); Carbon Dioxide 33 mmol/L (22-30); Chloride 101 mmol/L (98-107); Estimated CRCL calculation 27 ml/min; Estimated Glomerular Filt Rate 36; Glucose 85 mg/dL (65-110); Magnesium 2.1 mg/dL (1.6-2.3); Sodium 138 mmol/L (137-145)
[2024-12-16] MEDS: FLUTICASONE/UMECLIDIN/VILANTER 100-62.5-25 MCG ELLIPTA 1 PUFF INHALATION (08:01)
[2024-12-16] MEDS: FERROUS SULFATE 325 MG TABLET DR BY MOUTH (09:13)
[2024-12-16] MEDS: SACCHAROMYCES BOULARDII 250 MG CAPSULE PO ×3 (09:14→16:48)
[2024-12-16] MEDS: FUROSEMIDE 40 MG TABLET PO (09:15)
[2024-12-16] MEDS: SERTRALINE HCL 50 MG TABLET 100 MG PO (09:15)
[2024-12-16] MEDS: GABAPENTIN 300 MG CAPSULE PO ×3 (09:15→16:49)
[2024-12-16] MEDS: FAMOTIDINE 20 MG TABLET 40 MG PO (09:15)
[2024-12-16] MEDS: carvediloL 3.125 MG TABLET PO (09:15)
[2024-12-16] MEDS: ROSUVASTATIN 10 MG TABLET PO (09:17)
[2024-12-16] MEDS: LIDOCAINE 5% PATCH 1 PATCH TOPICAL (09:18)
[2024-12-16] MEDS: FLUTICASONE PROPIONATE 0.05% NA SPR 16 GM BTL (*BKC) 2 SPRAY NASAL (09:20)
--- NOTE | 2024-12-16 11:06 | PM.DS ---
DS: Admitting Diagnosis Discharge Date 12/16/24 Admitting Diagnosis Shortness of breath DS: Discharge Diagnosis Discharge Diagnosis (1) Hospital acquired PNA: Code(s): J18.9 - Pneumonia, unspecified organism; Y95 - Nosocomial condition Status: Acute Assessment and Plan: CXR: Left basilar atelectasis versus pneumonia with possible Effusion - Risk Factors: none - Complicating Factors: none - started on HAP: Cefepime & Vanc (discontinued due to (-) MRSA) - change to iv ampicilin and iv rocephin (2) Acute and chronic respiratory failure with hypoxia: Code(s): J96.21 - Acute and chronic respiratory failure with hypoxia Status: Acute Assessment and Plan: Symptoms: Shortness of breath Chest XR: Left basilar atelectasis versus pneumonia with possible Effusion dc breathing treatments (3) Transaminitis: Code(s): R74.01 - Elevation of levels of liver transaminase levels Status: Acute Assessment and Plan: Upon admission:AST 239, ALT 137 Repeat: 183, 144 respectively Physical exam benign, no abdominal pain RUQ US reveiwed with pt (4) S/P AVR (aortic valve replacement): Code(s): Z95.2 - Presence of prosthetic heart valve Status: Acute (5) H/O mitral valve repair: Code(s): Z98.890 - Other specified postprocedural states Status: Acute (6) H/O mechanical aortic valve replacement: Code(s): Z95.2 - Presence of prosthetic heart valve Status: Acute (7) Cardiomyopathy: Code(s): I42.9 - Cardiomyopathy, unspecified Status: Acute Assessment and Plan: pt switched to iv lasix increase dose more diuresis D/w pulmology MD (8) HTN (hypertension): Code(s): I10 - Essential (primary) hypertension Status: Acute Assessment and Plan: watch blood pressures chronic and stable (9) Anemia: Code(s): D64.9 - Anemia, unspecified Status: Acute Assessment and Plan: order iv venofer today for hb of 7 hb improved to 8.7 continue ferrous sulphate Plan patient with chronic medical conditions and in and out of hospital had developed hospital aquired PNA as well 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 patient warfarin was reduced to 4mg on 12/13 INR was 4.5 held warfarin, held again and her INR is 4.4 will hold warfarin, patient with significant cardiac history acute on chronic diastolic heart failure seen by her sprinkling system installer and recommended to continue diuresed the patient with IV Lasix 40mg BID, however her Scr is rising, and sprinkling system installer stopped IV lasix 40mg BID and started on Lasix 40mg PO qd, will monitor. Patient wish to be transferred back to the [place] where she was treated before arriving to the hospital, will discharge the patient tomorrow, patient son will let the [place] know that she needs to be treated until January 06. pt is on coumadin monitor INRS DS: Summary Hospital Course Hospital Course: Please check with the [facility] for length of antibiotics treatment for the patient, according to the patient antibiotics treatment should continue until January 06. After the treatment patient should follow up with her spinal surgeon for further recommendation, patient to follow up with her sprinkling system installer and primary care provider as soon as possible. Patient is on chronic anticoagulation for mechanical valve, please monitor her INR per your protocols. 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 patient warfarin was reduced to 4mg on 12/13 INR was 4.5 held warfarin, held again and her INR is 4.4 will hold warfarin, patient with significant cardiac history acute on chronic diastolic heart failure seen by her sprinkling system installer and recommended to continue diuresed the patient with IV Lasix 40mg BID, however her Scr is rising, and sprinkling system installer stopped IV lasix 40mg BID and started on Lasix 40mg PO qd, will monitor. Patient wish to be transferred back to the [place] where she was treated before arriving to the hospital, will discharge the patient tomorrow, patient son will let the [facility] know that she needs to be treated until January 06. patient is clinically stable, will discharge patient today. Time Spent with Patient Time attestation: Total time spent providing and/or coordinating discharge services: Exam Narrative: Patient is comfortable, NAD HEENT: eyes are clear and none icteric LUNGS: Bilateral poor air entry with rhonchi HEART: RR S1S2 ABD: BS+, Soft and nontender Lower extremities: no edema SKIN: nonjaundiced Neuro: grossly intact. DS: Data Data Completed and Pending Labs on day of discharge: Labs from last 24 hours 12/16/24 05:56 WBC 5.1 RBC 3.07 L Hgb 8.4 L Hct 29.4 L MCV 95.8 MCH 27.4 MCHC 28.6 L RDW 18.0 H Plt Count 190 MPV 11.5 H PT 27.7 H D INR 2.7 Sodium 138 Potassium 5.0 Chloride 101 Carbon Dioxide 33 H Anion Gap 4 BUN 16 Creatinine 1.45 H Estim Creat Clear Calc 27 Estimated GFR 36 L Glucose 85 Calcium 9.2 Magnesium 2.1 Discharge Plan Discharge Attending physician on discharge: Courtney Loredo Consulting providers: Da Giordano; Tania Reyes; Suman Carmichael; Lyle Sanchez; Soraida Jean; Santo Ho; Nicki Johnson; Baltazar Lima; Filippo Scales; Ramos Hayes Discharging Clinician: Kiara Smith Patient Disposition: SNF Activity: as tolerated Diet: heart healthy Discharge Instructions: Please check with the [facility] for length of antibiotics treatment for the patient, according to the patient antibiotics treatment should continue until January 06. After the treatment patient should follow up with her spinal surgeon for further recommendation, patient to follow up with her sprinkling system installer and primary care provider as soon as possible. Patient is on chronic anticoagulation for mechanical valve, please monitor her INR per your protocols. Patient Language: Serbian Stand Alone Forms: General Discharge Information Follow-up/Referrals: Ab,Quirino Chávez MD [Primary Care Provider] - Tania Reyes MD [Physician] - Suman Carmichael MD [Physician] - Discharge Medications: New furosemide 40 mg Tablet 40 mg PO DAILY Qty: 30 0RF ceftriaxone 2 gram Recon Soln 2 g IV Q12H Qty: 44 0RF carvedilol [Coreg] 3.125 mg Tablet 3.125 mg PO Q12HR Qty: 60 0RF ampicillin sodium 2 gram Recon Soln 2 g IV Q8HR Qty: 66 0RF Saccharomyces boulardii [Florastor] 250 mg Capsule 250 mg PO TID Qty: 90 0RF Continued spironolactone [Aldactone] 25 mg Tablet 25 mg PO DAILY Qty: 30 0RF sertraline 100 mg Tablet 100 mg PO DAILY Qty: 30 0RF famotidine 40 mg tablet 40 mg PO DAILY rosuvastatin 40 mg tablet 40 mg PO DAILY carvedilol 12.5 mg tablet 12.5 mg PO Q12H Rx Instructions: must administer with a meal/food diphenhydramine HCl 50 mg capsule 50 mg PO QHS PRN (Reason: Insomnia) trazodone 50 mg Tablet 50 mg PO HS cyclobenzaprine 10 mg tablet 10 mg PO BID PRN (Reason: muscle spasm) Qty: 14 0RF ampicillin sodium 2 gram recon soln 2 g IV Q6H ceftriaxone 2 gram recon soln 2 g IV BID ferrous sulfate [Feosol] 325 mg (65 mg iron) tablet 325 mg PO DAILY fluticasone propionate 50 mcg/actuation spray,suspension 2 spray INTRANASAL DAILY gabapentin 300 mg capsule 300 mg PO TID warfarin 4 mg tablet 4 mg PO .Evening hydrocortisone 1 % cream with perineal applicator 1 applic RECTAL BID hydroxyzine HCl 10 mg tablet 10 mg PO Q4H PRN (Reason: anxiety) lidocaine 5 % adhesive patch,medicated 1 patch topical BID Rx Instructions: leave on most painful area for up to 12 hrs methocarbamol 750 mg tablet 750 mg PO TID polyethylene glycol 3350 [ClearLax] 17 gram/dose powder 17 g PO DAILY ondansetron 4 mg tablet,disintegrating 4 mg PO Q8H PRN (Reason: nausea and vomiting) oxycodone 15 mg tablet 7.5 mg PO Q4H PRN (Reason: pain) Qty: 15 0RF lorazepam [Ativan] 0.5 mg tablet 0.25 mg PO Q6H PRN (Reason: anxiety) Qty: 10 0RF rqvwqqnspr-xaktkbzd-cfbslkltwv 160-9-4.8 mcg/actuation HFA aerosol inhaler 2 inh inhalation BID Qty: 10.7 3RF mowewubeyf-kqjnxywt-lrnvhlkaor 160-9-4.8 mcg/actuation HFA aerosol inhaler 2 inh inhalation BID Qty: 10.7 3RF albuterol sulfate 90 mcg/actuation HFA aerosol inhaler 1 puff inhalation Q4H PRN (Reason: Shortness Of Breath) Qty: 8.5 6RF Held ibshtimfbw-hgyorofz-evgdmmwaeu 160-9-4.8 mcg/actuation HFA aerosol inhaler 2 inh inhalation BID Qty: 10.7 6RF Hold Instructions: hold until seen by primary care Discontinued furosemide 20 mg tablet 20 mg PO DAILY warfarin 3 mg tablet 3 mg PO DIRECTED Rx Instructions: 3mg +; 4.5mg Mon,Sun,Sun,Sat,Sun Date of admission: 12/05/24 01:09 Primary Care Provider: AbQuirino Admitting Provider: Courtney Loredo Attending physician on admission: Kiara Smith Condition: Stable
[2024-12-16] MEDS: WARFARIN (*PBKC) 4 MG TABLET PO (16:48)
== END 2024-12-16 17:05 | DRG 193 ==
LOC: ANHED 12-04 04:26 → ANH3MEDSUR 12-05 01:57
PROVIDERS: Emergency Medicine; Family Medicine; Internal Medicine Pulmonary Disease; Physician Assistant; Admitting Provider General Practice; Emergency Provider Student in an Organized Health Care Education/Training Program; PCP Family Medicine; Visit Provider Family Medicine
DX: J18.9 Pneumonia, unspecified organism (principal); I33.0 Acute and subacute infective endocarditis; J96.21 Acute and chronic respiratory failure with hypoxia; I50.33 Acute on chronic diastolic (congestive) heart failure; M46.24 Osteomyelitis of vertebra, thoracic region; I48.19 Other persistent atrial fibrillation; I13.0 Hypertensive heart and chronic kidney disease with heart failure and stage 1 through stage 4 chronic kidney disease, or unspecified chronic kidney disease; I43 Cardiomyopathy in diseases classified elsewhere; Y95 Nosocomial condition; T82.7XXD Infection and inflammatory reaction due to other cardiac and vascular devices, implants and grafts, subsequent encounter; T45.515D Adverse effect of anticoagulants, subsequent encounter; D69.59 Other secondary thrombocytopenia; B95.2 Enterococcus as the cause of diseases classified elsewhere; D63.1 Anemia in chronic kidney disease; E78.5 Hyperlipidemia, unspecified; E87.6 Hypokalemia; I44.7 Left bundle-branch block, unspecified; I25.10 Atherosclerotic heart disease of native coronary artery without angina pectoris; J43.9 Emphysema, unspecified; N18.9 Chronic kidney disease, unspecified; R74.01 Elevation of levels of liver transaminase levels; Z20.822 Contact with and (suspected) exposure to COVID-19; Z79.01 Long term (current) use of anticoagulants; Z87.891 Personal history of nicotine dependence; Z95.2 Presence of prosthetic heart valve; Z99.81 Dependence on supplemental oxygen; Z95.1 Presence of aortocoronary bypass graft; Z95.5 Presence of coronary angioplasty implant and graft
CPT/HCPCS: 36415; 36600; 71045; 71046; 71275; 76705; 80048; 80053; 82375; 82565; 82805; 83050; 83605; 83735; 83880; 84484; 85018; 85025; 85027; 85610; 85730; 87040; 87070; 87205; 87637; 87641; 93005; 93306; 94640; 94667; 94668; 96365; 96366; 96367; 96375; 97110; 97162; 97166; 97530; 97535; 99291; A9270; J0290; J0692; J0696; J1756; J1938; J3370; J3480; J7040; J7050; Q9967

== ENCOUNTER 2025-04-25 12:22 | Emergency (ER) | payer MEDICARE, OTHER, SELFPAY ==
--- OUTSIDE RECORDS SUMMARY | 2025-04-25 12:24 | XMS_ITS | Encounter Summary ---
Author Organization [facility] Health Address [address] [place] [address] Care Team Providers Care Quill Cleaning Machine Operator Name Role Phone Unavailable Primary Care Provider Unavailabl e Prior Encounters Date Type Department Care Team Description 07/28/2019 Converted 13x Documents [facility] [address] [place], [address] [place] [phone] <No scans attached> 07/28/2019 Converted CPS Chart Documents [facility] [address] [place] [phone] <No scans attached> Plan of Treatment Not [...] 2 ENDODONTIC THERAPY, MOLAR TOOTH (EXCLUDING FINAL ORIENTAL ORTHODOX) Routine 08/19/2019 1:00 AM MST 2 [...] MST 2 CROWN Routine 05/02/2018 12:00 AM [facility] [place] PERIODIC ORAL EVALUATION - ESTABLISHED PATIENT Routine 04/23/2018 12:00 AM MST UR PERIODONTAL SCALING AND ROOT PLANING - FOUR OR MORE TEETH PER QUADRANT Routine 04/23/2018 12:00 AM [facility] PERIODONTAL SCALING AND ROOT PLANING - FOUR OR MORE TEETH PER QUADRANT Routine 04/23/2018 12:00 AM [facility] PERIODONTAL SCALING AND ROOT PLANING - FOUR OR MORE TEETH PER QUADRANT Routine 04/23/2018 12:00 AM [facility] PERIODONTAL SCALING AND ROOT PLANING - [...] RECEMENT CROWN Routine 08/28/2017 1:0 0 AM MST 12 LIMITED ORAL EVALUATION - PROBLEM FOCUSED Routine 08/28/2017 1:00 AM MST NC X-RAY Routine 08/28/2017 1:00 AM MST ADDITIONAL X-RAY Routine 08/28/2017 1:00 AM MST SINGLE X-RAY Routine 08/28/2017 1:00 AM MST 12 CROWN Routine 08/28/2017 1:00 AM MST 20 TREATMENT OF ROOT CANAL OBSTRUCTION; NON-SURGICAL ACCESS Routine 04/12/2016 12:00 AM MST 19 TREATMENT OF ROOT CANAL OBSTRUCTION; NON-SURGICAL ACCESS Routine 04/12/2016 12:00 AM MST LIMITED ORAL EVALUATION - PROBLEM FOCUSED Routine 04/12/2016 12:00 AM MST 19 ENDODONTIC THERAPY, MOLAR TOOTH (EXCLUDING FINAL ORIENTAL ORTHODOX) Routine 04/12/2016 12:00 AM MST 20 ENDODONTIC THERAPY, PREMOLAR TOOTH (EXCLUDING FINAL ORIENTAL ORTHODOX) Routine 04/12/2016 12:00 AM MST 20 [...] 3 ENDODONTIC THERAPY, MOLAR TOOTH (EXCLUDING FINAL ORIENTAL ORTHODOX) Routine 12/04/2014 12:00 AM MST 31 ENDODONTIC THERAPY, PREMOLAR TOOTH (EXCLUDING FINAL ORIENTAL ORTHODOX) Routine 12/04/2014 12:00 AM MST 30 ENDODONTIC THERAPY, PREMOLAR TOOTH (EXCLUDING FINAL ORIENTAL ORTHODOX) Routine 12/04/2014 12:00 AM MST 29 ENDODONTIC THERAPY, PREMOLAR TOOTH (EXCLUDING FINAL ORIENTAL ORTHODOX) Routine 12/04/2014 12:00 AM MST 28 ENDODONTIC THERAPY, PREMOLAR TOOTH (EXCLUDING FINAL ORIENTAL ORTHODOX) Routine 12/04/2014 12:00 AM MST 9 [...] DO COMPOSITE FILLING Routine 5 12:00 AM MST Visit Diagnoses Not on file
--- OUTSIDE RECORDS SUMMARY | 2025-04-25 12:24 | XMS_ITS | Clinical Summary ---
Author Organization [facility] Facility Address [address] [address] Care Team Providers Care Aquaculture Farm Manager Name Role Phone Quirino Berger MD Primary Care Provider [phone] Medications ergocalciferol 1.25 MG (31465 UT) capsule Take 1 capsule (50,000 Units [...] Cancer Screening: Sigmoidoscopy 2006 Influenza Vaccine (#1) 2025 2, 08/01/2021, 04/26/2021, Additional history exists Hepatitis B Vaccine Aged Out No longe r eligible based on patient's age to complete this topic Insurance Medicare [facility] Advance Directives Documents on File Type Date Recorded Patient Non Destructive Evaluation Manager Expl anation Advance Care Planning 03/20/2023 1:50 PM Care Teams Aquaculture Farm Manager Relationship Specialty Start Date End Date Quirino Berger MD [address] [place] [address] PCP - General Family Medicine 12/29/22
--- OUTSIDE RECORDS SUMMARY | 2025-04-25 12:24 | XMS_ITS | Clinical Summary ---
Author Organization [facility] Address [address] [place] [address] Care Team Providers Care Kier Pleater Name Role Phone Unavailable Primary Care Provider [...] Pneumococcal Vaccine: 65+ Ye ars (1 of 2 - PCV) 2007 DTaP/Tdap/Td Vaccines (2 - [...]
--- OUTSIDE RECORDS SUMMARY | 2025-04-25 12:25 | XMS_ITS | Clinical Summary ---
Author Organization [facility] Information Gateway Address [address] [facility] [place] [address] Care Team Providers Care Braid Pattern Setter Name Role Phone Unknown, Provider Primary Care Provider Unavaila ble Source Comments [facility],non-owned Affiliates and Associated Physician Practices is amultiple site organization consisting of ambulatory clinics and hospital sitesin [place], [place], [place] and [place]. This disclosure is being madepursuant to the Care Everywhere program and may not contain all information available regarding this patient. Last updated 18.[facility] Allergies Active Allergy Reactions Criticality Noted Date [...] on file Legal Sex Female 10:20 AM SALES ASSOCIATE FISHING Gender Identity Not on file Sexual Orientation Not on file Last Filed Vital Signs Vital Sign Reading Time Taken Comments Blood Pressure 120/80 05/28/2021 10:41 AM SALES ASSOCIATE FISHING Pulse 78 05/28/2021 10:41 AM SALES ASSOCIATE FISHING Temperature 37 C (98.6 F) 05/28/2021 10:41 AM SALES ASSOCIATE FISHING Respiratory Rate 12 05/28/2021 10:41 AM SALES ASSOCIATE FISHING Oxygen Saturation 99% 05/28/2021 10:41 AM SALES ASSOCIATE FISHING Inhaled Oxygen Concentration - - Weight 70.3 kg (155 lb) 05/28/2021 10:41 AM SALES ASSOCIATE FISHING Height 157.5 cm (5' 2) 05/28/2021 10:41 AM SALES ASSOCIATE FISHING Body Mass Index 28.35 05/28/2021 10:41 AM SALES ASSOCIATE FISHING Plan of Treatment Health Maintenance Due Date [...] of 2) 2007 SCREENING FOR DIABETES 05/28/2021 DEPRESSION SCREENING 07/09/2024 COVID-19 VACCINE (1 - 2023-2 5 season) 2025 INFLUENZA VACCINE (#1) 2025 Respiratory Syncytial Virus (RSV) Vaccine Pt: [...] patient's age to complete [place] [address] [employer] Care Teams Braid Pattern Setter Relationship Specialty Start Date End Date Unknown, Provider PCP - General 05/27/21
[2025-04-25 12:32] VITALS: PULSE 96; RESP 18; TEMP 36.7; O2SAT 98
[2025-04-25 12:59] VITALS: BP 125/51; PULSE 75; RESP 16; O2SAT 96
[2025-04-25 13:02] VITALS: BP 100/51; PULSE 76; RESP 15; O2SAT 94
--- OUTSIDE RECORDS SUMMARY | 2025-04-25 13:36 | XMS_ITS | Encounter Summary ---
Author Organization [facility] Health Address [address] [place] [address] Care Team Providers Care Production Foreman Name Role Phone Unavailable Primary Care Provider Unavailabl e Prior Encounters Date Type Department Care Team Description 07/28/2019 Converted 13x Documents [facility] [address] [place] [address] [place] [phone] <No scans attached> 07/28/2019 Converted CPS Chart Documents [facility] [address] [place] [address] [place] [phone] <No scans attached> Plan of Treatment Not [...] 2 ENDODONTIC THERAPY, MOLAR TOOTH (EXCLUDING FINAL TAOISM) Routine 08/19/2019 1:00 AM MST 2 CORE [...] MST 2 CROWN Routine 05/02/2018 12:00 AM [facility] PERIODIC ORAL EVALUATION - ESTABLISHED [...] 19 ENDODONTIC THERAPY, MOLAR TOOTH (EXCLUDING FINAL TAOISM) Routine 04/12/2016 12:00 AM MST 20 ENDODONTIC THERAPY, PREMOLAR TOOTH (EXCLUDING FINAL TAOISM) Routine 04/12/2016 12:00 AM MST 20 CORE [...] 3 ENDODONTIC THERAPY, MOLAR TOOTH (EXCLUDING FINAL TAOISM) Routine 12/04/2014 12:00 AM MST 31 ENDODONTIC THERAPY, PREMOLAR TOOTH (EXCLUDING FINAL TAOISM) Routine 12/04/2014 12:00 AM MST 30 ENDODONTIC THERAPY, PREMOLAR TOOTH (EXCLUDING FINAL TAOISM) Routine 12/04/2014 12:00 AM MST 29 ENDODONTIC THERAPY, PREMOLAR TOOTH (EXCLUDING FINAL TAOISM) Routine 12/04/2014 12:00 AM MST 28 ENDODONTIC THERAPY, PREMOLAR TOOTH (EXCLUDING FINAL TAOISM) Routine 12/04/2014 12:00 AM MST 9 IMPLANT [...]
--- OUTSIDE RECORDS SUMMARY | 2025-04-25 13:36 | XMS_ITS | Clinical Summary ---
Author Organization [facility] Health Address [address] [place] [address] Care Team Providers Care Construction Skills Teacher Name Role Phone Unavailable Primary Care Provider Unavailabl e Social History Tobacco Use Types Packs/Day Years Used Date Smoking Tobacco: Never Assessed Comments Unknown Sex and Gender Information Value Date Recorded Sex Assigned at Not on file Legal Sex Female 8:43 PM PST Gender Identity Not on file Sexual Orientation Not on file Plan of Treatment Not on file
--- OUTSIDE RECORDS SUMMARY | 2025-04-25 13:36 | XMS_ITS | Clinical Summary ---
Author Organization [facility] Facility Address [address] [address] Care Team Providers Care Floor Tech Name Role Phone Quirino Berger MD Primary Care Provider [phone] Medications ergocalciferol 1.25 MG (18181 UT) capsule Take 1 capsule (50,000 Units [...] age to complete this topic Insurance Medicare [facility] Advance Directives Documents on File Type Date Recorded Patient Manager Utility Expl anation Advance Care Planning 03/20/2023 1:50 PM Care Teams Floor Tech Relationship Specialty Start Date End Date Quirino Berger MD [address] [place] [address] PCP - General Family Medicine 12/29/22
--- OUTSIDE RECORDS SUMMARY | 2025-04-25 13:36 | XMS_ITS | Encounter Summary ---
Author Organization [facility] Healthcare Address [address] [place] [address] Care Team Providers Care Security Guard Supervisor Name Role Phone Quirino Berger MD Primary Care Provider [phone] Vic Sal MD Unavailable Anupam Cabrera MD Unavailable [phone] Vic Sal MD Unavailable Frantz Lewis RN Unavailable [phone] Blake Dee MD Unavailable [phone] Reason for Visit * Reason Onset Date Comments Scheduling Appointments 08/29/2021 Reminder call for DEXA and Mammogram. Encounter Details Date Type Department Care Team (Late st Contact Info) Description 08/29/2021 Telephone [facility] [address] [place] [id number] [address] Scheduling Appointments (Reminder call for DEXA and Mammogram. 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 file Not on f ile Not on file documented as of this encounter Plan of Treatment Not on file documented as of this encounter Visit Diagnoses Not on filedocumented in this encounter Additional Health Concerns Infection Onset Date Last Indicated Resolved Time COVID: Suspected 11/13/2023 11/13/2023 11/13/2023 1:38 PM CDT documented as of this encounter Care Teams Security Guard Supervisor Relationship Specialty Start Date End Date Quirino Berger MD [address] [place] [address] PCP - General Family Medicine 08/01/21 Vic Sal MD [address] [place] [address] Consulting Physician Cardiology 08/01/21 05/27/24 Anupam Cabrera MD [address] [place] [address] Surgeon Anesthesiology 08/01/21 08/21/22 Vic Sal MD [address] [place] [address] Referring Physician Cardiology 11/08/21 05/27/24 Frantz Lewis, RN [address] [place] [address] [address] [place] [address] Steel Post Installer 08/24/23 Blake Dee MD [address] [facility] C [facility] [address] [facility] C, [facility] [address] [place] [address] Consulting Physician Cardiology 05/28/24 documented as of this encounter
--- OUTSIDE RECORDS SUMMARY | 2025-04-25 13:36 | XMS_ITS | Encounter Summary ---
Author Organization [facility] Healthcare Address [address] [place] [address] Care Team Providers Care New Car Inspector Name Role Phone Quirino Berger MD Primary Care Provider Frantz Lewis RN Unavailable [phone] Blake Dee MD Unavailable Encounter Details Date Type Department Care Team (Latest Contact Info) Description 04/08/2025 Results Follow-Up [facility] Medical Group Cardiology [address] [facility] [address] [place] [phone] Blake Dee MD [address] [facility] [address] C [address] [facility] C, [address] [place] [address] Transthoracic Echo (TTE) Complete W Doppler/CF Social History Tobacco Use Types Packs/Day Years Used Date Smoking Tobacco: Former Cigarettes 1 48.4 0 07/09/1973 - 11/22/2021 Passive Smoke Exposure: Past Smokeless Tobacco: Never Comments:now down to 5 cigs/ day [facility] Utilities Answer Date Recorded In the past 12 months has e electric, gas, oil, or water company threatened to shut off services in your home? No 11/27/2024 Social Connection and Isolation Panel Answer Date Recorded In a typical week, how many times do you talk on the phone with family, friends, or neighbors? More than three times a week 11/27/2024 How often do you get togethe r with friends or relatives? More than three times a week 11/27/2024 How often do you attend chur ch or taoism services? Never 11/27/2024 Do you belong to any clubs o r organizations such as synagogue groups, unions, fraternal or athletic groups, or [...] Date Recorded PHQ-2 Total Score 0 11/27/2024 [facility] - Occupational Stress [...] any time in the past 12 [facility], were you homeless or living in a fdc (including now)? No 11/27/2024 Personal Safety Answer Date Recorded Have you ever been in or are you currently in a harmful physical or emotional relationship or is someone making you feel afraid or unsafe? 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 Not on f ile Not on file documented as of this encounter Plan of Treatment Not on file documented as of this encounter Visit Diagnoses Not on filedocumented in this encounter Care Teams New Car Inspector Relationship Specialty Start Date End Date Quirino Berger MD [address] [place] [address] PCP - General Family Medicine 08/01/21 Frantz Lewis, MARIA DE JESUS [address] [place] [address] [address] [place] [address] Alumni Relations Manager 08/24/23 Blake Dee MD [address] [facility] C [address] [facility] C, [address] [place] [address] Consulting Physician Cardiology 05/28/24 documented as of this encounter
--- OUTSIDE RECORDS SUMMARY | 2025-04-25 13:37 | XMS_ITS | Clinical Summary ---
Author Organization [facility] Address [address] [facility] [place] [place] [address] Care Team Providers Care Student Affairs Dean Name Role Phone Unknown, Provider Primary Care Provider Unavaila ble Source Comments [facility],non-owned Affiliates and Associated Physician Practices is amultiple site organization consisting of ambulatory clinics and hospital sitesin [place], [place], [place] and [place]. This disclosure is being madepursuant to the Care Everywhere program and may not contain all information available regarding this patient. Last updated 18.[facility] Allergies Active Allergy Reactions Criticality Noted Date [...] on file Legal Sex Female 10:20 AM PICTURE PAINTER Gender Identity Not on file Sexual Orientation Not on file Last Filed Vital Signs Vital Sign Reading Time Taken Comments Blood Pressure 120/80 05/28/2021 10:41 AM PICTURE PAINTER Pulse 78 05/28/2021 10:41 AM PICTURE PAINTER Temperature 37 C (98.6 F) 05/28/2021 10:41 AM PICTURE PAINTER Respiratory Rate 12 05/28/2021 10:41 AM PICTURE PAINTER Oxygen Saturation 99% 05/28/2021 10:41 AM PICTURE PAINTER Inhaled Oxygen Concentration - - Weight 70.3 kg (155 lb) 05/28/2021 10:41 AM PICTURE PAINTER Height 157.5 cm (5' 2) 05/28/2021 10:41 AM PICTURE PAINTER Body Mass Index 28.35 05/28/2021 10:41 AM PICTURE PAINTER Plan of Treatment Health Maintenance Due Date [...] patient's age to complete [place] [address] [employer] Care Teams Student Affairs Dean Relationship Specialty Start Date End Date Unknown, Provider PCP - General 05/27/21
--- OUTSIDE RECORDS SUMMARY | 2025-04-25 13:37 | XMS_ITS | Clinical Summary ---
Author Organization [facility] Address [address] [place] [phone] Care Team Providers Care Marketing Database Analyst Name Role Phone Quirino Berger MD Primary Care Provider Frantz Lewis RN Unavailable [phone] Nadine Dee MD Unavailable Allergies Active Allergy Reactions Criticality Noted Date Comments Atropine Hypotension High 10/26/2011 SEVERE hypotension Hydrocodone-Acetamino phen Itching Medium 09/12/2013 Sulfa (Sulfonamide Antibiotics) Nausea only Low 06/21/2022 Sulfites Nausea And Vomiting High 10/26/2011 Medications albuterol HFA (Proventil HFA) 90 mcg/actuation inhalerIndications :Centrilobular emphysema Inhale 2 puffs every 4 (four) hours as needed for wheezing or shortness of breath 6.73 each 4 023 Active Breztri Aerosphere 160-9-4.8 mcg/actuation inhaler Inhale [...] EVERY DAY 90 tablet 1 025 Active cholecalciferol (VITAMIN D-3) 2000 unit [...] BY MOUTH NIGHTLY 180 tablet 1 Active gabapentin (NEURONTIN) 300 mg capsule [...] hours or as directed by . 025 2025 Active LORazepam (ATIVAN) 0.5 mg tablet Take 0.5 tablets (0.25 mg total) by mouth every 6 (six) hours as needed for anxiety (2nd line for anxiety) Active cyclobenzaprine (FLEXERIL) 10 mg tablet Take 1 tablet (10 mg total) by mouth 2 (two) times a day as needed for muscle spasms Active spironolactone (ALDACTONE) 25 mg tablet Take 1 tablet (25 mg total) by mouth daily Active potassium chloride ER 20 mEq CR tablet Take 1 tablet (20 mEq total) by mouth daily 30 tablet 3 025 Active naloxone (NARCAN) 4 mg/actuation spray,non-aerosolI ndications:risk mitigation for opioid overdose Administer 1 spray into affected nostril(s) as needed for opioid reversal or respiratory depression Call 911. Administer a single spray in one nostril. Repeat every 3 minutes as needed if no or minimal response. 2 each 2 025 Active oxyCODONE (ROXICODONE) 15 mg immediate release tabletIndications: Pain Take 0.5 tablets (7.5 mg total) by mouth every 8 (eight) hours as needed for pain 45 tablet 025 Active methocarbamoL (ROBAXIN) 750 mg tablet Take 1 tablet (750 mg total) by mouth 3 (three) times a day 60 tablet 2 025 Active oxyCODONE-acetamin ophen (PERCOCET) 7.5-325 mg per tabletIndications: Pain Take 1 tablet by mouth every 4 (four) hours as needed for pain 60 tablet 025 Active amoxicillin (AMOXIL) 500 mg tablet/capsuleIndi cations:Osteomyeli tis of thoracic spine (HCC),Bacteremia due to Enterococcus Take 1 tablet/capsule (500 mg total) by mouth 2 (two) times a day 60 tablet/cap david 025 Active furosemide (LASIX) 40 mg tablet Take 1 tablet (40 mg total) by mouth daily 30 tablet 3 025 Active warfarin (COUMADIN) 4 mg tablet TAKE 1 TABLET BY MOUTH DAILY TAKE 1 TABLET EVERY OTHER DAY ALTERNATING WITH WARFARIN 5MG 45 tablet 1 025 Active warfarin (COUMADIN) 5 mg tablet TAKE 1 TABLET BY MOUTH DIRECTED TAKE ONE TABLET EVERY OTHER DAY ALTERNATING WITH 4MG TABLETS 42 tablet 1 025 Active warfarin (COUMADIN) 4 mg tabletIndications: Mechanical Valve Thromboembolism Prophylaxis Take 1 tablet (4 mg total) by mouth daily 025 2024 Discontinued(R eorder) furosemide (LASIX) 40 mg tablet Take 1 tablet (40 mg total) by mouth daily 2024 Discontinued(R eorder) amoxicillin (AMOXIL) 500 mg tablet/capsuleIndi cations:Osteomyeli tis of thoracic spine (HCC),Bacteremia due to Enterococcus Take 1 tablet/capsule (500 mg total) by mouth 2 (two) times a day 60 tablet/cap david 025 2024 Discontinued(R eorder) warfarin (COUMADIN) 4 mg tabletIndications: Mechanical Valve Thromboembolism Prophylaxis Take 1 tablet (4 mg total) by mouth daily TAKE 1 TABLET EVERY OTHER DAY ALTERNATING WITH WARFARIN 5MG 15 tablet 025 2024 Discontinued warfarin (COUMADIN) 5 mg tablet Take 1 tablet (5 mg total) by mouth as directed TAKE ONE TABLET EVERY OTHER DAY ALTERNATING WITH 4MG TABLETS 14 tablet 025 2024 Discontinued Active Problems Problem Noted Date Diagnosed Date Nonrheumatic tricuspid valve regurgitation 01/26 Fall 12/01/2024 Assessment & Plan (12/02/2024 1:05 [...] Assessment & Plan (12/02/2024 1:05 PM CDT): Valentinanet found with decrease of > [...] Assessment & Plan (12/01/2024 10:24 AM CDT): Axel found with decrease of > 30% in [...] Assessment & Plan (11/30/2024 9:21 AM CDT): Axel found with decrease of > 30% in [...] Assessment & Plan (11/29/2024 12:38 PM CDT): Axel found with decrease of > 30% in [...] Assessment & Plan (11/28/2024 10:18 AM CDT): Axel found with decrease of > 30% in [...] Assessment & Plan (11/27/2024 9:07 AM CDT): Axel found with decrease of > 30% in [...] Assessment & Plan (11/26/2024 8:39 AM CDT): Axel found with decrease of > 30% in her baseline platelets (204 from admission to 140 last lab) and down trending HB with no apparent bleeding (8.8 from adcmission to 6.6 last lab) - 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 Labs without leukocytosis, ESR 82 and CRP 17. Bcx on 11/13/24 growing E faecalis. She was started on ampicillin and ceftriaxone. NSGY consulted and recommended MRI spine and IR biopsy. MRI obtained 11/17/24 reporting T10-T11 vertebral bodies and disc space with cortical erosion and paraspinal soft tissue edema, concerning for osteomyelitis discitis at this level. Patient went to IR with aspiration and bone bx obtained. Cultures finalized with NG. Pathology reporting histologic findings are not entirely specific. The differential diagnosis includes prior or ongoing osteomyelitis versus a reactive/degenerative process . TTE 11/13/24 showed MV repair with annuloplasty ring, mechanical AV, wire noted in R heart. Patient underwent pacer removal on 11/25/24. 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 Given patient has retained prosthetic heart valves and graft, she would benefit from discussion of suppression for a year. - 12/18/24 labs reviewed. - weekly CBC w Diff, CMP while on IV antibiotics. - continue total 6 week course IV CTX + Ampicillin for synergy in the s/o Enterococcus BSI, EOT 01/06/25, dc PICC at that time. - on 01/07/25, start Amoxicillin 500 mg BID for chronic PO suppression given retained PV and graft, minimum 6 mo to 1 yr. - I discussed with the patient my impression, the imaging findings, and treatment plan in detail with a focus on the etiology, natural history, and management of symptoms. - I discussed with the patient the rationale for treatment, culture results, risk of recurrent infection, signs/symptoms of recurrent infection, and to contact ID clinic with any questions or concerns. Assessment & Plan (12/02/2024 1:05 PM CDT): [...] with the possibility of suppression pending results. NEVAHE performed 11/19 with findings of echodensity on [...] Bcx NGTD since 11/15 - Start Amp () and Ceftriaxone (11/14 -) - TTE on [...] 11/17. - NSGY following - Hold warfarin (5/6-) -> heparin gtt for 11/17 IR bx [...] on 11/15 as TTE was unremarkable and axel has mechanical valve and pacemaker - NEVAEH [...] possible procedure on Sunday - Hold warfarin (5-) -> heparin gtt - Repeated TTE to rule out valvular vegetation/ICD infection, ordered NEVAEH on 05/10 as TTE was unremarkable and patinet has [...] 05/09 Assessment & Plan (05/28/2024 1:10 PM ALUM PLANT SUPERVISOR): A(n) initial well visit to establish care [...] year Assessment & Plan (05/21/2023 3:45 PM ALUM PLANT SUPERVISOR): A(n) yearly Medicare Annual Wellness Visit has [...] 11:45 AM CDT): Will decrease furosemide to [id number]-[id number] dosing given the downward drift on the renal function Replacing pantoprazole with famotidine for the same reason Monitor BP, the amlodipine has bene stopped, carvedilol recently increase Continuing current regimen overall Discussed improving hydration Referral to kidney doctor ordered Nausea and vomiting 07/25/2022 Assessment & Plan (07/25/2022 1:31 PM ALUM PLANT SUPERVISOR): Try stop cannabis HS Also try benadryl [...] 1 03/16/2022 S/P mitral valve 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 Gomes or Katerine at [facility] May add meal supplement 1 daily between [...] breath 08/08/2021 Coronary artery disease invo lving suquamish coronary artery of suquamish heart without angina pectoris 08/08/2021 Chronic anticoagulation 08/08/2021 Ankle swelling 02/16/2021 Acute urinary tract infection 12/16/2020 Dehydration 12/15/2020 Incomplete emptying of bladder 12/15/2020 Smoker 08/03/2020 Smokers' cough 07/30/2020 Osteoarthritis of right knee 06/11/2019 Overview (08/01/2021): [place] [facility] [place] Parks orth[place] 2017 Arthritis of knee 06/10/2019 Anxiety 01/24/2019 Overview (08/01/2021): Buspar she didn't like. Paroxysmal atrial fibrillation 01/15/2019 Overview (06/21/2022): Last Assessment & Plan: On Eliquis Aortic valve replaced 11/14/2018 Overview (08/01/2021): 12/[address] surgeon at [facility]. Spondylosis of lumbar region without myelopathy or radiculopathy 11/30/2015 Overview (08/01/2021): X-ray 11/2015 Essential hypertension 10/20/2015 Status post biventricular pacemaker 10/20/2015 Overview (01/15/2025): Castrejon Quadra Allure BIV Pacemaker. Dx; CM, CHF, LBBB, PAF. DOI 09/26/2023- [facility]. Chronic leads 08/16/2015-[place]. Velpen remote transfer requested. Device is NOT MRI compatible-confirmed 09/15/21. Dr. Nelly VELÁSQUEZ at [facility]. Aug 2015. Pacemaker system explanted o n 11/25/2024. Osteopenia 01/29/2015 Overview (08/01/2021): DEXA 01/2015 CHF (congestive heart failure), NYHA class III 0 12/25/2012 Overview (08/01/2021): ECHO 05/2014 EF about 40% EF about 65% 2016 [address] Dr. Wahl at [facility]. Last Assessment & Plan: Status: Stable Interim History: No weight gain or any other symptoms. Continue present treatment. Pulmonary HTN 11/18/2012 Overview (08/01/2021): [place] documentation seen on ECHO. Pulmonary nodule, left 11/18/2012 Overview (08/01/2021): Left lower per [place] documentation. S/P cholecystectomy 11/18/2012 S/P hysterectomy with oophorectomy 11/18/2012 Overview (08/01/2021): Per [place]. Chronic pain 12/06/2011 GERD (gastroesophageal reflux disease) 2 Depression 10/26/2011 Overview (08/01/2021): Last Assessment & Plan: Status: Stable Interim History: Mood 5-6/10. Not suicidal or homicidal. Will adjust med's today. Discussed grieving counseling in detail. Patient will call [facility] and get it. Recheck in 2 weeks. Mixed hyperlipidemia 10/26/2011 Overview (08/01/2021): [place] wants her on Lipitor 40mg qhs Last [...] angelina of renal medullary (papillary) necrosis 12/02/2021 Assessment & Plan (12/16/2021 8:07 AM CDT): [...] (11/10/2021): Added automatically from request for surgery [id number] Prosthetic aortic valve stenosis 09/05/2021 12/20/2021 Statin myopathy 08/08/2021 12/20/2021 Systolic murmur 08/08/2021 12/20/2021 Encounter for medical examin shakalena to establish care 08/01/2021 12/20/2021 Assessment & Plan (08/03/2021 10:25 AM ALUM PLANT SUPERVISOR): A initial well visit to establish care [...] ordered/arranged unless otherwise indicated. BP is controlled Spooler appointment next week. 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 Message from [employer] sent at 11/15/2018 4:29 PM [facility] ----- Ma Dr. Farnsworth. Just FY regarding my hospital visit, I have an appointment with Dr. Luke rodriguez at [facility] on This Sunday for my TAVR work up. Last Assessment & Plan: Status: Stable Interim History: Positive murmur but no symptoms at present. Continue with present treatment. Biventricular heart failure 11/18/2012 12/20/2021 Assessment & Plan (12/14/2021 8:07 AM CDT): S/p CABG, MVR Encounters Date Type Department Care Team Description 04/08/2025 Results Follow-Up [facility] Cardiology [address] [facility] [address] [place] [phone] Nadine Dee MD Transthoracic Echo (TTE) Complete W Doppler/CF 04/07/2025 8:15 AM CDT Ancillary Procedure [facility] at [address] [place] [address] Coronary artery disease involving suquamish coronary artery of suquamish heart without angina pectoris; Chronic heart failure with preserved ejection fraction; Nonrheumatic tricuspid valve regurgitation; Essential hypertension 03/30/2025 9:00 AM CDT Office Visit [facility] at [address] [place] [address] Nadine Dee MD Coronary artery disease involving suquamish coronary artery of suquamish heart without angina pectoris (Primary Dx); Chronic heart failure with preserved ejection fraction; Paroxysmal atrial fibrillation (HCC); Status post biventricular pacemaker; Nonrheumatic tricuspid valve regurgitation; Essential hypertension; Chronic anticoagulation 03/26/2025 Telephone [facility] at [address] [phone] Quirino Berger MD [facility] Episode Summary Report 03/20/2025 Anticoagulation Visit [facility] [address] [facility] [address] [place] [address] Melanie Callejas RN nursing home (current) use of anticoagulants (Primary Dx); Atrial fibrillation, unspecified type (HCC) 03/19/2025 Orders Only [facility] Information Management [address] [place] [id number] Scanning, Provider 03/11/2025 ACO Outreach [facility] Accountable Care Organization [address] [place] [address] Saskia Shelley MA 02/10/2025 Telephone [facility] at [address] [phone] Quirino Berger MD Additional Services Or Orders 02/06/2025 Telephone [facility] at [address] [phone] Quirino Berger MD Medication interaction order 02/03/2025 10:30 AM CDT Office Visit [facility] at [address] [phone] Quirino Berger MD Hospital discharge follow-up (Primary Dx); Anemia due to stage 3b chronic kidney disease (HCC); Osteomyelitis of thoracic spine (HCC); Bacteremia due to Enterococcus 02/03/2025 Telephone [facility] Infectious Diseases [address] [facility] [address] [place] [address] Flora Najera 02/03/2025 Telephone [facility] Medical [facility] Primary Care at [address] [phone] Quirino Berger MD Additional Services Or Orders 01/28/2025 Telephone [facility] at [address] [phone] Quirino Berger MD LINDA Questions 01/27/2025 Anticoagulation Visit [facility] [address] [facility] [address] [place] [phone] Melanie Callejas RN nursing home (current) use of anticoagulants (Primary Dx); Atrial fibrillation, unspecified type (HCC) 01/26/2025 11:15 AM CDT Office Visit [facility] at [address] [place] [phone] Nadine Dee MD Coronary artery disease involving suquamish coronary artery of suquamish heart without angina pectoris (Primary Dx); Chronic heart failure with preserved ejection fraction (HCC); Paroxysmal atrial fibrillation (HCC); Essential hypertension; Status post mechanical aortic valve replacement; S/P mitral valve repair; Nonrheumatic tricuspid valve regurgitation 01/26/2025 10:30 AM CDT Lab [facility] at [address] [phone] 01/26/2025 10:26 AM CDT - 01/26/2025 11:59 PM CDT Hospital Encounter [address] [address] Discharge Disposition: Discharge to home or self care from Last 3 Months Immunizations Immunization Administration [...] / REMOVE PACEMAKER 07/09/2015 - 07/08/2016 original 2012 AORTIC VALVE REPLACEMENT 07/09/2018 - 07/08/2019 21mm Inspiris CARDIAC VALVE REPLACEMENT 2019 BIOPSY DEEP BONE 11/17/2024 N/A CARDIAC PACEMAKER REMOVAL 11/25/2024 Medical History Medical History Date Comments Depression Hypertension Broken heart syndrome Hyperlipidemia 10/26/2011 Formatting of th is note might be different from the original. [place] wants her on Lipitor 40mg qhs Last Assessment & Plan: Status: Stable Interim History: No myalgias. Patient on Lipitor 40 mg qd. Recheck in 3 months labs. LBBB (left bundle branch block) 11/18/[address] Villegas at [facility] application designer. Paroxysmal atrial fibrillation (HCC) 05/27/2019 Last Assessment & Plan: On Eliquis Severe mitral regurgitation 11/18/2012 Form atting of this note is different from the original. 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 Message from [employer] sent at 11/15/2018 4:29 PM [facility] ----- Ma Dr. Farnsworth. Just FYI regarding my hospital visit, I have an appointment with Dr. Luke rodriguez at [facility] on This Sunday for my TAVR work up. Last Assessment & Plan: Formatting of this note might be different from the mars Systolic heart failure (HCC) 11/18/2012 For matting of this note might be different from the original. [place] stage III Coreg Lasix and Lisinopril started in hospital in November. Dr. Phan application designer. Last Assessment & Plan: Status: Stable Interim History: No cp's, sob, PTE or calf pains. No weight gains. Continue with Cardiology. GERD (gastroesophageal reflux disease) 2 Osteopenia 01/29/2015 Formatting of th is note might be different from the original. DEXA 01/2015 Pulmonary HTN ([facility]) 11/18/2012 Formatting o f this note might be different from the original. [place] documentation seen on ECHO. 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 Never 11/27/2024 Do you belong to any clubs o r organizations such as zoroastrian groups, unions, fraternal or athletic groups, or [...] Date Recorded PHQ-2 Total Score 0 11/27/2024 [facility] Occupational Stress Questionnaire Answer [...] any time in the past 12 m [facility], were you homeless or living in a jail (including now)? No 11/27/2024 Personal Safety Answer Date Recorded Have you ever been in or are you currently in a harmful physical or emotional relationship or is someone making you feel afraid or unsafe? 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 Not on file Not on f ile Not on file Obstetrics History Para Term AB IAB SAB Ectopic Multiple Livin g Live Births 3 2 2 Date Outcome GA Total Labor Labor/2nd/3rd Weight Sex Type Anes PTL Lisa A1 A5 Name Clin Term Term Last Filed Vital Signs Vital Sign Reading Time Taken Comments Blood Pressure 118/60 03/30/2025 9:02 AM CDT Pulse 78 03/30/2025 9:02 AM CDT Temperature 36.2 C (97.1 F) 02/03/2025 10:41 AM CDT Respiratory Rate 18 02/03/2025 10:41 AM CDT Oxygen Saturation 96% 03/30/2025 9:02 AM CDT Inhaled Oxygen Concentration - - Weight 60.1 kg (132 lb 8 oz) 03/30/2025 9:02 AM CDT Height 157.5 cm (5' 2) 03/30/2025 9:02 AM CDT Body Mass Index 24.23 03/30/2025 9:02 AM CDT Plan of Treatment Health Maintenance Due Date Last Done Comments Zoster Vaccine (1 of 2) 2007 Lung Cancer Screening 07/12/2023 07/12/2022 Osteoporosis Screening-Bone Density Scan 08/30/2023 08/30/2021, 01/29/2015, 01/29/2015, Additional history exists Breast Cancer Screening-Mammogram 07/17/2024 07/17/2023, 08/30/2021, 06/09/2019, Additional history exists DTaP/Tdap/Td Vaccine (2 - Td or Tdap) 12/16/2024 12/16/2014 Covid-19 Vaccine (2023- 5 season) 2025 04/30/2024, 10/19/2021, 10/19/2021, Additional history exists Influenza Vaccine (#1) 2025 , 05/21/2023, 05/12/2022, Additional history exists Well Visit 65+ 05/28/2025 05/28/2024, 05/09, 08/01/2021 Depression Screening 11/13/2025 11/13/2024, 11/13/2024, 08/21/2024, Additional history exists Fall Risk Assessment 12/02/2025 12/02/2024, 05/28/2024, 04/22/2024, Additional history exists Hepatitis C Screening Completed 08/17/2021 Hepatitis B Screening Completed 05/28/2024 Colon Cancer Screening-Colonoscopy Discontinued Pneumococcal vaccine 65+ Discontinued Medical Devices Implanted Type Area Tin Container Straightener Device Identifier Shelf Expiration Date Model / Serial / Lot Photofix Bovine 6x8 Pericardium Pfp 6x8 - S000 - [id number] Implanted:Qty: 1 on 11/23/2021 by Adal Moore MD at [facility] Graft N/A: Heart Cryolife Inc 08/20/2023 PFP 6X8 / 000 / [id number] Castrejon Rv Lead [id number] Implanted: 016 (Quantity not on file) Lead Heart Medtronic Cardiac Rhythm Mgmt 8TC-5 2 / [id number] / Castrejon Lv Lead [id number]/16/2015 Implanted: 016 (Quantity not on file) Lead Heart Castrejon [id number]- 6 Implanted: 016 (Quantity not on file) Lead Chest Wall Castrejon Diagnostics 8TC-4 6 / [id number] / Getinge [employer]ite [employer] Sensation Plus 7.5fr 6in 2 Statlock Device Fiber Optic Insertion [id number] - S000 - [id number] Implanted:Qty: 1 on 11/22/2021 by Adal Moore MD at [facility] Other - see comments Left: Groin GETINGE CASTLE INC 03/12/2023 [id number] / 000 / [id number] Description:IABP Castrejon Pm [id number] Implanted: 016 by Alfredo White (Quantity not on file) Pacemaker Chest [employer] [id number] / [id number] / Description:Did not get lead information - office did not schedule MRI exam, device is not conditional for MRI and provider is looking into other options JL 09/28/21 On-X Intrnl Gelweave Valsalva 22mm 19.4mm 30mm 11cm Mechanical Conduit Sew Onxaap-21 - [id number] - [id number] Implanted:Qty: 1 on 11/22/2021 by Adal Moore MD at [facility] Prosthetic Valve N/A: Aorta On-X Intrnl 04/08/2023 ONXAAP-2 [id number] / 000 Photofix Bovine 6x8 Pericardium Pfp 6x8 - S000 - [id number] Implanted:Qty: 1 on 11/22/2021 by Adal Moore MD at [facility] N/A: Heart [employer] 08/06/2023 PFP 6X8 / 000 / [id number] Description:Given to sterile field for PRN use on surgical site Photofix Bovine 6x8 Pericardium Pfp 6x8 - [id number] Implanted:Qty: 1 on 11/28/2021 by Adal Moore MD at [facility] N/A: Heart [employer] Inc 08/06/2023 PFP 6X8 / / [id number] Medtronic Inc Simulus 24mm Semirigid Band Annuloplasty [id number] - [id number] - [id number] Implanted:Qty: 1 on 11/28/2021 by Adal Moore MD at [facility] N/A: Heart [employer] 03/15/2023 [id number] / [id number] / [employer] Gelweave Od6 Mm L30 Cm Suture Retention Unique Hydrolyzable Abdomen Thorax Straight Graft Cardiovascular Gelatin Polyester Woven [id number] - [id number] - [id number] Implanted:Qty: 1 on 11/28/2021 by Adal Moore MD at [facility] N/A: Chest [employer] 08/08/2024 [id number] / [id number] / [id number] Procedures Procedure Name Priority Date/Time Associated Diagnosis Comments TRANSTHORACIC ECHO (TTE) COMPLETE W DOPPLER/CF WO CONTRAST Routine 04/07/2025 8:46 AM CDT Coronary artery disease involving [place] coronary artery of [place] heart without angina pectoris Chronic heart failure with preserved ejection fraction Nonrheumatic tricuspid valve regurgitation Essential hypertension SCAN - LABS 03/19/2025 PROTIME-INR Routine 03/19/2025 PROTIME-INR Routine 01/26/2025 10:26 AM CDT SCREENING MAMMOGRAM BILATERAL W JAMEL Schedule Routine, Read Routine (OP Routine) 07/17/2023 12:59 PM ALUM PLANT SUPERVISOR Encounter for screening mammogram for malignant neoplasm of breast DEXA AXIAL SKELETON BONE DENSITY 1 OR MORE SITES Schedule Routine, Read Routine (OP Routine) 08/30/2021 10:30 AM ALUM PLANT SUPERVISOR Osteopenia of spine HEPATITIS C ANTIBODY Routine 08/17/2021 3:29 PM ALUM PLANT SUPERVISOR Encounter for hepatitis C screening test for low risk patient from Last 3 Months or Most Recently Relevant to Health Maintenance Results * TRANSTHORACIC ECHO (TTE) COMPLETE W DOPPLER/CF WO CONTRAST (04/07/2025 8:46 AM CDT) Estimated EF 65 % CONS SCIMAGE EF Mod BP 56 % CONS SCIMAGE Anatomical Region Laterality Modality Ultrasound 04/07/2025 8:16 AM CDT Narrative 04/07/2025 3:53 PM CDT [facility] [address], [address], [place] [address] P:[phone] P:[phone] Echocardiographic Report Patient Name: KENDAL CISNEROS J : 1955 Study Date: 04/07/2025 8:16:53 AM Sex: F 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 With Strain Analysis. 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 MEASUREMENTS: 2D/MM Value Range Doppler Value Range EF Mod BP 56 % [ 54 - 74 ] ONEL Vmax 2.18 cm2 [ 2.00 - 4.00 ] EF Teich MM 45 % [ 54 - 74 ] AV Mean PG 8 mmHg Estimated EF 65 % AV Peak Jenaro 1.97 m/s [ 1.00 - 1.70 ] LV GLS -14.09 % AV Peak PG 16 mmHg LVIDd 2D 4.67 cm [ 3.80 - 5.20 ] AV VTI 37.77 cm LVIDd MM 4.22 cm [ 3.80 - 5.20 ] LVOT Diam 2.01 cm [ 1.70 - 2.10 ] LVIDs 2D 3.42 cm [ 2.20 - 3.50 ] LVOT Peak Jenaro 1.36 m/s [ 0.70 - 1.10 ] LVIDs MM 3.30 cm [ 2.20 - 3.50 ] LVOT VTI 24.07 cm LVPWd 2D 0.82 cm [ 0.60 - 0.90 ] MV E Peak Jenaro 1.34 m/s [ 0.60 - 1.30 ] LVPWd MM 0.76 cm [ 0.60 - 0.90 ] MV A Peak Jenaro 1.63 m/s [ 1.00 - 1.20 ] IVSd 2D 0.99 cm [ 0.60 - 0.90 ] MV Mean PG 5 mmHg [ 0 - 5 ] IVSd MM 1.19 cm [ 0.60 - 0.90 ] MV PHT 56 msec [ 20 - 100 ] LA Dimension MM 4.16 cm [ 2.70 - 3.80 ] MVA PHT 3.93 cm2 [ 2.00 - 4.00 ] AoR Diam MM 3.16 cm [ 2.70 - 3.70 ] MV Decel Time 169 msec [ 104 - 258 ] LA Volume 55.76 ml [ 22.00 - 52.00 ] PV Peak Jenaro 1.21 m/s [ 0.40 - 0.80 ] LA Volume Index 34 cc/m2 [ 16 - 28 ] TR Peak Jenaro 2.45 m/s [ 1.00 - 2.80 ] RA Volume 69.12 ml TR Peak PG 24 mmHg RVSP 32.00 mmHg [ 10.00 - 36.00 ] RV S` 0.08 m/s Lateral E` 0.06 m/s [ 0.10 - 0.15 ] Septal E` 0.04 m/s [ 0.08 - 0.15 ] E` 0.05 m/s E/E` 26 Tapse 1.80 cm [ 1.71 - 5.00 ] 2D/MM Value Range Doppler Value Range - FINDINGS: Interpretation Site: Exam was interpreted at [facility]. Left Ventricle: Normal left ventricular size. Normal global left ventricular systolic function. Paradoxical septal motion consistent with IVCD or bundle branch block. Impaired diastolic relaxation Grade I. Ejection fraction is measured at 56 %. Ejection Fraction is visually estimated to be 65 %. Global Longitudinal Strain is -14 %. Right Ventricle: Normal right ventricular size. Left Atrium: There is moderate enlargement of left atrium. Right Atrium: There is moderate enlargement of right atrium. Atrial Septum: Normal atrial septum. Mitral Valve: Normal appearance of the mitral valve. Mild mitral annular calcification. Annular region thickened with prior annuloplasty. Mild to moderate mitral valve regurgitation. Mean gradient of 5.25 mmHg. Valve area of 3.9 cm2. Aortic Valve: Aortic valve not well visualized. Peak Velocity of 1.97 m/s. Peak gradient of 15.0 mmHg. Mean gradient of 8.0 mmHg. Valve area of 2.2 cm2. No aortic regurgitation. Normal appearing aortic valve prosthesis. Tricuspid Valve: Normal appearance of the tricuspid valve. Estimated peak RVSP is 32 mmHg. Mild to moderate tricuspid regurgitation. Pulmonic Valve: Normal appearance of the pulmonic valve. Pericardium: Normal pericardium with no significant pericardial effusion. Aorta: Normal aortic root. IVC: The IVC is not well visualized. Pulmonary Artery: Normal pulmonary artery size. CONCLUSIONS: Normal left ventricular size. Normal global left ventricular systolic function. Paradoxical septal motion consistent with IVCD or bundle branch block. Impaired diastolic relaxation Grade I. Ejection fraction is measured at 56 %. Ejection Fraction is visually estimated to be 65 %. Global Longitudinal Strain is -14 %. Normal appearance of the mitral valve. Mild mitral annular calcification. Annular region thickened with prior annuloplasty. Mild to moderate mitral valve regurgitation. Mean gradient of 5.25 mmHg. Valve area of 3.9 cm2. Aortic valve not well visualized. Peak Velocity of 1.97 m/s. Peak gradient of 15.0 mmHg. Mean gradient of 8.0 mmHg. Valve area of 2.2 cm2. No aortic regurgitation. Normal appearing aortic valve prosthesis. Aortic valve is a mechanical prosthesis according to the records appears to be functioning normally. Previously implanted pacemaker device has been explanted. Electronically Signed By: Santo Small MD, [facility] 04/07/2025 3:53:08 PM CDT Procedure Note Santo Small MD - 04/07/2025 [facility] [address], [address], [place] [address] P:[phone] P:[phone] Echocardiographic Report Patient Name: KENDAL CISNEROS J : 1955 Study Date: 04/07/2025 8:16:53 AM Sex: F Video Game Animator: TAMIKO Location: [facility] Ref Provider: NADINE DEE Height(Cm): 157 BSA: 1.62 Weight(Kg): 59.9 Heart Rate: 82 BP: 118 / 60 Quality: Good Order Provider: NADINE DEE PROCEDURES: Echocardiographic Report: Transthoracic echocardiogram with complete 2D, M-Mode, and color Dopplerexamination. With Strain Analysis. INDICATIONS: Aortic Valve Replacement, MV Annuloplasty, I25.10 Atherosclerotic heartdisease of [place] coronary artery without angina pectoris, I50.32 Chronic diastolic(congestive) heart failure, I36.1 Nonrheumatic tricuspid (valve) insufficiency, and H14Plnvkyfmw (primary) hypertension. MEASUREMENTS: 2D/MM Value Range Doppler ValueRange EF Mod BP 56 % [ 54 - 74 ] ONEL Vmax 2.18cm2 [ 2.00 - 4.00 ] EF Teich MM 45 % [ 54 - 74 ] AV Mean PG 8mmHg Estimated EF 65 % AV Peak Jenaro 1.97m/s [ 1.00 - 1.70 ] LV GLS -14.09 % AV Peak PG 16mmHg LVIDd 2D 4.67 cm [ 3.80 - 5.20 ] AV VTI 37.77cm LVIDd MM 4.22 cm [ 3.80 - 5.20 ] LVOT Diam 2.01cm [ 1.70 - 2.10 ] LVIDs 2D 3.42 cm [ 2.20 - 3.50 ] LVOT Peak Jenaro 1.36m/s [ 0.70 - 1.10 ] LVIDs MM 3.30 cm [ 2.20 - 3.50 ] LVOT VTI 24.07cm LVPWd 2D 0.82 cm [ 0.60 - 0.90 ] MV E Peak Jenaro 1.34m/s [ 0.60 - 1.30 ] LVPWd MM 0.76 cm [ 0.60 - 0.90 ] MV A Peak Jenaro 1.63m/s [ 1.00 - 1.20 ] IVSd 2D 0.99 cm [ 0.60 - 0.90 ] MV Mean PG 5mmHg [ 0 - 5 ] IVSd MM 1.19 cm [ 0.60 - 0.90 ] MV PHT 56msec [ 20 - 100 ] LA Dimension MM 4.16 cm [ 2.70 - 3.80 ] MVA PHT 3.93cm2 [ 2.00 - 4.00 ] AoR Diam MM 3.16 cm [ 2.70 - 3.70 ] MV Decel Time 169msec [ 104 - 258 ] LA Volume 55.76 ml [ 22.00 - 52.00 ] PV Peak Jenaro 1.21m/s [ 0.40 - 0.80 ] LA Volume Index 34 cc/m2 [ 16 - 28 ] TR Peak Jenaro 2.45m/s [ 1.00 - 2.80 ] RA Volume 69.12 ml TR Peak PG 24mmHg RVSP 32.00 mmHg [ 10.00 - 36.00 ] RV S` 0.08 m/s Lateral E` 0.06 m/s [ 0.10 - 0.15 ] Septal E` 0.04 m/s [ 0.08 - 0.15 ] E` 0.05 m/s E/E` 26 Tapse 1.80 cm [ 1.71 - 5.00 ] 2D/MM Value Range Doppler ValueRange - FINDINGS: Interpretation Site: Exam was interpreted at [facility]. Left Ventricle: Normal left ventricular size. Normal global left ventricular systolicfunction. Paradoxical septal motion consistent with IVCD or bundle branch block.Impaired diastolic relaxation Grade I. Ejection fraction is measured at 56 %. EjectionFraction is visually estimated to be 65 %. Global Longitudinal Strain is -14 %. Right Ventricle: Normal right ventricular size. Left Atrium: There is moderate enlargement of left atrium. Right Atrium: There is moderate enlargement of right atrium. Atrial Septum: Normal atrial septum. Mitral Valve: Normal appearance of the mitral valve. Mild mitral annular calcification.Annular region thickened with prior annuloplasty. Mild to moderate mitral valveregurgitation. Mean gradient of 5.25 mmHg. Valve area of 3.9 cm2. Aortic Valve: Aortic valve not well visualized. Peak Velocity of 1.97 m/s. Peak gradientof 15.0 mmHg. Mean gradient of 8.0 mmHg. Valve area of 2.2 cm2. No aortic regurgitation.Normal appearing aortic valve prosthesis. Tricuspid Valve: Normal appearance of the tricuspid valve. Estimated peak RVSP is 32 mmHg.Mild to moderate tricuspid regurgitation. Pulmonic Valve: Normal appearance of the pulmonic valve. Pericardium: Normal pericardium with no significant pericardial effusion. Aorta: Normal aortic root. IVC: The IVC is not well visualized. Pulmonary Artery: Normal pulmonary artery size. CONCLUSIONS: Normal left ventricular size. Normal global left ventricular systolicfunction. Paradoxical septal motion consistent with IVCD or bundle branch block.Impaired diastolic relaxation Grade I. Ejection fraction is measured at 56 %. EjectionFraction is visually estimated to be 65 %. Global Longitudinal Strain is -14 %. Normal appearance of the mitral valve. Mild mitral annular calcification.Annular region thickened with prior annuloplasty. Mild to moderate mitral valveregurgitation. Mean gradient of 5.25 mmHg. Valve area of 3.9 cm2. Aortic valve not well visualized. Peak Velocity of 1.97 m/s. Peak gradientof 15.0 mmHg. Mean gradient of 8.0 mmHg. Valve area of 2.2 cm2. No aortic regurgitation.Normal appearing aortic valve prosthesis. Aortic valve is a mechanical prosthesis according to the records appearsto be functioning normally. Previously implanted pacemaker device has been explanted. Electronically Signed By: Santo Small MD, [facility] 04/07/2025 3:53:08 PM CDT us Nadine Dee MD CV ECHO PROCEDURES Final Result * SCAN - LABS (03/19/2025) Provider Scanning Final Result * (ABNORMAL) Protime-INR (03/19/2025) INR 2.50(A) 0.90 - 1.10 EXTERNAL LAB Blood Historical Provider LAB BLOOD ORDERABLES Mirtha l Result Performing Organization Address [facility] Co de Phone Number EXTERNAL LAB * (ABNORMAL) Protime-INR (01/26/2025 10:26 AM CDT) PT 22.1(H) 9.7 - 13.0 sec INR 2.02(H) 0.90 - 1.20 JUILANA RODRIGUEZ Comment: Interpretive data Oral anticoagulant therapeutic ranges: Venous thromboembolism prophylaxis or treatment: 2.0-3.0 CARDIOLOGY Standard range: 2.0-3.0 High-intensity range: 2.5-3.5 Refer to indication-specific guidelines for appropriate target ranges for prosthetic heart valve replacement. Current interpretive data was last revised on 2019. Blood 01/26/2025 10:2 6 AM CDT 01/26/2025 7:29 PM CDT Result [facility] Nadine Dee MD LAB BLOOD ORDERABLES Mirtha l Result Performing Organization Address [facility] Co de Phone Number [facility] [address] Department [place] [address] * SCREENING MAMMOGRAM BILATERAL W JAMEL (07/17/2023 12:59 PM ALUM PLANT SUPERVISOR) Anatomical Region Laterality Modality Breast Bilateral Mammography 07/17/2023 1:17 PM ALUM PLANT SUPERVISOR Impressions 07/17/2023 1:17 PM ALUM PLANT SUPERVISOR There is no mammographic evidence of malignancy. A 1 year screening mammogram is recommended. BI-RADS: 2 - Benign. The patient has been or will be contacted. The patient will be entered into a reminder system with a target due date of 1 year for her next mammogram. Electronically signed by: TREVA FIGUEROA Narrative 07/17/2023 1:17 PM ALUM PLANT SUPERVISOR EXAMINATION: SCREENING MAMMOGRAM BILATERAL W JAMEL ORDERING [...] finding in either breast on mammogram. us Quiirno Berger MD IMG MAMMO PROCEDURES Final Result * Dexa Axial Skeleton Bone Density 1 Or 2 Site (08/30/2021 10:30 AM ALUM PLANT SUPERVISOR) Anatomical Region Laterality Modality Body N/A Other 08/30/2021 10:5 2 AM ALUM PLANT SUPERVISOR Narrative 08/30/2021 10:53 AM ALUM PLANT SUPERVISOR EXAM DESCRIPTION: DEXA AXIAL SKELETON BONE DENSITY 1 OR MORE SITES REASON FOR STUDY: 66 y/o year old F with given history of screening. 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 TB: TB Report ID: [id number] Reading Location: [facility] Procedure Note Lisa Vann MD - 08/30/2021 EXAM DESCRIPTION: DEXA AXIAL SKELETON BONE DENSITY 1 OR MORE SITES REASON FOR STUDY: 66 y/o year old F with given history ofscreening. Tin Container Straightener/Model: ViVu Discovery SL (S/N [id number]) CLINICAL INFORMATION: Current height: 62 inches Maximum [...] Lisa Vann M.D. TB: TB Report ID: [id number] [facility] Quir[facility] Berger MD IMG DXA PROCEDURES Final Re sult * Hepatitis C antibody (08/17/2021 3:29 PM ALUM PLANT SUPERVISOR) Hep C Ab Nonreactive Nonreactive JULIANA RODRIGUEZ [...] revised on 2019. 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 Advance Directives and Gus moreno Will 11/26/2021 11:49 AM * Full Code [...] 11:00 PM 12/07/2021 3:31 PM Care Teams Marketing Database Analyst Relationship Specialty Start Date End Date Quirino Berger MD [address] [place] [address] PCP - General Family Medicine 08/01/21 Frantz Lewis, MARIA DE JESUS [address] [place] [address] [facility] [address] [place] [address] Grocery Worker 08/24/23 Nadine Dee MD [address] [facility] [address] [facility] [place] [place] [address] Consulting Physician Cardiology 05/28/24
--- NOTE | 2025-04-25 13:45 | ED.GENADULT ---
HPI - General Adult General Chief complaint: Epistaxis Stated complaint: nose bleed for 3 hours, on Coumadin Time Seen by Provider: 04/25/25 13:26 History of Present Illness HPI narrative: 62-year-old female on Coumadin present to the emergency department for evaluation for nose bleed that started approximately 9:00 a.m. this morning. Upon arrival emergency department patient did have a nasal clamp in place and bleeding had resolved. Related Data Home Medications ?Medication ?Instructions ?Recorded ?Confirmed ?Last Taken ?Type trazodone 50 mg tablet 50 mg PO HS 05/26/22 12/05/24 12/03/24 20:30 History carvedilol 12.5 mg tablet 12.5 mg PO Q12H 06/13/23 12/05/24 12/03/24 16:10 History diphenhydramine HCl 50 mg capsule 50 mg PO QHS PRN Insomnia 06/13/23 12/05/24 09/24/23 History famotidine 40 mg tablet 40 mg PO DAILY 06/13/23 12/05/24 12/03/24 07:10 History rosuvastatin 40 mg tablet 40 mg PO DAILY 06/13/23 12/05/24 12/03/24 07:10 History ampicillin sodium 2 gram 2 g IV Q6H Osteomyelitis 12/05/24 12/05/24 12/03/24 17:25 History intravenous solution ceftriaxone 2 gram intravenous 2 g IV BID Osteomyelitis 12/05/24 12/05/24 12/03/24 19:30 History solution ferrous sulfate 325 mg (65 mg 325 mg PO DAILY 12/05/24 12/05/24 12/03/24 07:10 History iron) tablet (Feosol) fluticasone propionate 50 2 spray intranasal DAILY 12/05/24 12/05/24 12/03/24 07:10 History mcg/actuation nasal spray,suspension gabapentin 300 mg capsule 300 mg PO TID 12/05/24 12/05/24 12/03/24 20:30 History hydrocortisone 1 % topical cream 1 applic RECTAL BID 12/05/24 12/05/24 12/03/24 14:10 History with perineal applicator hydroxyzine HCl 10 mg tablet 10 mg PO Q4H PRN anxiety 12/05/24 12/05/24 Unknown History lidocaine 5 % topical patch 1 patch topical BID 12/05/24 12/05/24 12/03/24 16:10 History methocarbamol 750 mg tablet 750 mg PO TID 12/05/24 12/05/24 12/03/24 20:30 History ondansetron 4 mg disintegrating 4 mg PO Q8H PRN nausea and vomiting 12/05/24 12/05/24 Unknown History tablet polyethylene glycol 3350 17 17 g PO DAILY 12/05/24 12/05/24 12/03/24 07:10 History gram/dose oral powder (ClearLax) warfarin 4 mg tablet 4 mg PO .Evening 12/05/24 12/05/24 12/03/24 16:10 History Allergies Allergy/AdvReac Type Severity Reaction Status Date / Time atorvastatin Allergy Unknown Verified 04/25/25 12:36 hydrocodone (From Vicodin) Allergy Itching Verified 04/25/25 12:36 atropine AdvReac Dizziness Verified 04/25/25 12:36 Sulfa (Sulfonamide AdvReac Vomiting Verified 04/25/25 12:36 Antibiotics) Review of Systems Review of Systems: All systems reviewed & are unremarkable except as noted in HPI and below PMFSH Past Medical History Medical History Chronic anticoagulation Pacemaker Biotronik BiV pacemaker, gen change 09/2023 HTN (hypertension) Hyperlipidemia Cardiomyopathy Atrial fibrillation Overweight (BMI 25.0-29.9) History of cardiac pacemaker Surgical History Surgical History H/O mechanical aortic valve replacement H/O mitral valve repair S/P AVR (aortic valve replacement) Family History Family History Father High cholesterol Heart disease Heart attack CABG Mother Heart disease Pacemaker Social History Social History Smoking packs per day: 1 Smoking cigarettes per day: 20.0 Years smoked: 40 Smoking pack-years: 40.00 Smoking status: Former smoker Tobacco type: cigarettes Second hand tobacco smoke exposure: Yes Alcohol intake: never Substance use: never Substance use type: does not use Do You Feel Safe in your Home?: Yes Lack of Transportation: No Lack of Food: Never True Current Housing: I Have Housing Concerned About Future Housing: No Difficulty Paying Gas/Electric Bills: No Difficulty Paying for Meds: No Currently Unemployed: No Education: Associate Degree Difficulty w/ Childcare or Family Care: No Living arrangements: with family Spiritual care concerns: No Exam Narrative: APPEARANCE: Well appearing, no pain, no distress, well-nourished. HEAD: normocephalic, atraumatic. EYES: PERRLA/EOMI, conjunctivae clear. NOSE: Normal no drainage EARS:TMS clear with good light reflex. THROAT: Pharynx clear, no exudate. NECK: Supple. No adenopathy, no masses. RESPIRATORY: Airway patent, respirations nonlabored. Clear to auscultation bilaterally, no rales, rhonchi, wheezing. CARDIOVASCULAR: Regular rate and rhythm without murmurs rubs or gallops. ABDOMINAL: Soft, nontender, nondistended, normal bowel sounds MUSCULOSKELETAL: Moves all extremities. Strength/ROM intact, No edema, No calf tenderness. NEURO: Alert. Cranial nerves II through XII intact. Good gait. Good coordination SKIN: Warm, dry. Normal Color Course Vital Signs Vital signs: Vital Signs Temperature 98.1 F 04/25/25 12:32 Pulse Rate 96 04/25/25 12:32 Respiratory Rate 18 04/25/25 12:32 Pulse Oximetry 98 04/25/25 12:32 Oxygen Delivery Room Air 04/25/25 12:32 Temperature 98.1 F 04/25/25 12:32 Pulse Rate 68 04/25/25 14:49 Respiratory Rate 16 04/25/25 14:49 Blood Pressure 112/74 04/25/25 14:49 Pulse Oximetry 98 04/25/25 14:49 Oxygen Delivery Room Air 04/25/25 12:59 Medical Decision Making [facility] Narrative Medical decision making narrative: 62-year-old female presents emergency department for evaluation for epistaxis. Patient does take Coumadin and patient was unsure of what her INR was. INR was checked today and it was 3.3. Patient had a nasal clamp and placed at time of initial evaluation and bleeding had resolved. Patient did have Afrin soaked gauze nasal packing for approximately 25 minutes in the right naris and had no additional rebleeding. Patient was observed for 15 minutes after removal the nasal packing and bleeding was still resolved. Family was provided additional nasal clamps and educated on the use of nasal clamp and reasons to return to the emergency department. All questions concerns were addressed. Differential Diagnosis Differential Diagnosis: Supratherapeutic INR, nasal epistaxis, anemia Vital Signs Vital Signs: Vital Signs Temperature 98.1 F 04/25/25 12:32 Pulse Rate 96 04/25/25 12:32 Respiratory Rate 18 04/25/25 12:32 Pulse Oximetry 98 04/25/25 12:32 Oxygen Delivery Room Air 04/25/25 12:32 Temperature 98.1 F 04/25/25 12:32 Pulse Rate 68 04/25/25 14:49 Respiratory Rate 16 04/25/25 14:49 Blood Pressure 112/74 04/25/25 14:49 Pulse Oximetry 98 04/25/25 14:49 Oxygen Delivery Room Air 04/25/25 12:59 Lab Data Lab results reviewed: Yes I reviewed the patient's lab results. 04/25/25 13:43 04/25/25 13:43 Labs: Lab Results 04/25/25 Range/Units 13:43 WBC 6.3 (4.5-10.0) K/mm3 RBC 3.47 L (4.2-5.4) M/mm3 Hgb 10.1 L (12.0-15.0) g/dL Hct 32.6 L (37.0-47.0) % MCV 93.9 (80-100) fl MCH 29.1 (26-34) pg MCHC 31.0 L (32-36) g/dl RDW 13.6 (11.5-14.5) % Plt Count 162 (150-375) k/mm3 MPV 10.9 H (7.4-10.4) fl Immature Gran % (Auto) 0.2 (0-0.5) % Neut % (Auto) 74.6 H (45.5-73.1) % Lymph % (Auto) 15.0 L (18.3-44.2) % [place] % (Auto) 6.6 (2.6-8.5) % Eos % (Auto) 2.8 (0-4.4) % Baso % (Auto) 0.8 (0.2-1.2) % Lymph # (Auto) 0.95 (0.9-3.2) K/mm3 [place] # (Auto) 0.4 (0.1-0.6) K/mm3 Eos # (Auto) 0.2 (0-0.3) K/mm3 Baso # (Auto) 0.1 (0.0-0.1) K/mm3 Abs Immat Gran (auto) 0.01 (0.00-0.031) K/mm3 Absolute Neuts (auto) 4.7 (1.3-6.7) K/mm3 Absolute Nucleated RBC 0.000 (0.0-0.012) K/mm3 Nucleated RBC % 0.0 (0.0-0.2) % PT 31.9 H (11.1-14.7) Seconds INR 3.3 APTT 35.1 (22.3-36.8) Seconds Sodium 138 (137-145) mmol/L Potassium 3.9 (3.4-5.0) mmol/L Chloride 101 (98-107) mmol/L Carbon Dioxide 30 (22-30) mmol/L Anion Gap 7 (4-12) mmol/L BUN 29 H D (7-17) mg/dL Creatinine 1.47 H (0.7-1.0) mg/dL Estim Creat Clear Calc 27 ml/min Estimated GFR 35 L (59 - ) Glucose 92 (65-110) mg/dL Calcium 9.6 (8.4-10.2) mg/dL Total Bilirubin 0.5 (0.2-1.3) mg/dL AST 23 (14-36) U/L ALT 15 (6-35) U/L Alkaline Phosphatase 82 (38-126) U/L Total Protein 8.1 (6.3-8.2) g/dL Albumin 4.4 (3.5-5.1) g/dL Discharge Plan Discharge Clinical Impression: Acute anterior epistaxis Patient Disposition: Home Condition: Stable Instructions: Antibiotic Form, Nosebleed (ED) Additional Instructions: Avoid blowing your nose and avoid bending over if possible for the next 24 hours. Your INR today was 3.3. Have close follow-up with your physician that doses your Coumadin/warfarin. If you have any worsening symptoms then please call or return to the emergency department. Patient Language: Kosovan Prescriptions: No Action spironolactone [Aldactone] 25 mg Tablet 25 mg PO DAILY Qty: 30 0RF sertraline 100 mg Tablet 100 mg PO DAILY Qty: 30 0RF famotidine 40 mg tablet 40 mg PO DAILY rosuvastatin 40 mg tablet 40 mg PO DAILY carvedilol 12.5 mg tablet 12.5 mg PO Q12H Rx Instructions: must administer with a meal/food diphenhydramine HCl 50 mg capsule 50 mg PO QHS PRN (Reason: Insomnia) trazodone 50 mg Tablet 50 mg PO HS cyclobenzaprine 10 mg tablet 10 mg PO BID PRN (Reason: muscle spasm) Qty: 14 0RF ampicillin sodium 2 gram recon soln 2 g IV Q6H ceftriaxone 2 gram recon soln 2 g IV BID ferrous sulfate [Feosol] 325 mg (65 mg iron) tablet 325 mg PO DAILY fluticasone propionate 50 mcg/actuation spray,suspension 2 spray INTRANASAL DAILY gabapentin 300 mg capsule 300 mg PO TID warfarin 4 mg tablet 4 mg PO .Evening hydrocortisone 1 % cream with perineal applicator 1 applic RECTAL BID hydroxyzine HCl 10 mg tablet 10 mg PO Q4H PRN (Reason: anxiety) lidocaine 5 % adhesive patch,medicated 1 patch topical BID Rx Instructions: leave on most painful area for up to 12 hrs methocarbamol 750 mg tablet 750 mg PO TID polyethylene glycol 3350 [ClearLax] 17 gram/dose powder 17 g PO DAILY ondansetron 4 mg tablet,disintegrating 4 mg PO Q8H PRN (Reason: nausea and vomiting) furosemide 40 mg Tablet 40 mg PO DAILY Qty: 30 0RF ceftriaxone 2 gram Recon Soln 2 g IV Q12H Qty: 44 0RF carvedilol [Coreg] 3.125 mg Tablet 3.125 mg PO Q12HR Qty: 60 0RF ampicillin sodium 2 gram Recon Soln 2 g IV Q8HR Qty: 66 0RF Saccharomyces boulardii [Florastor] 250 mg Capsule 250 mg PO TID Qty: 90 0RF oxycodone 15 mg tablet 7.5 mg PO Q4H PRN (Reason: pain) Qty: 15 0RF lorazepam [Ativan] 0.5 mg tablet 0.25 mg PO Q6H PRN (Reason: anxiety) Qty: 10 0RF faagnquttw-ewimwaam-bihttgxplc 160-9-4.8 mcg/actuation HFA aerosol inhaler 2 inh inhalation BID Qty: 10.7 6RF epnrsnvvph-mydxdvpf-yuascwvmjd 160-9-4.8 mcg/actuation HFA aerosol inhaler 2 inh inhalation BID Qty: 10.7 3RF aylswwvawk-jozxcieh-scbxrpariq 160-9-4.8 mcg/actuation HFA aerosol inhaler 2 inh inhalation BID Qty: 10.7 3RF albuterol sulfate 90 mcg/actuation HFA aerosol inhaler 1 puff inhalation Q4H PRN (Reason: Shortness Of Breath) Qty: 8.5 6RF Follow-up/Referrals: Ab,Quirino Chávez MD [Primary Care Provider, Unknown]
[2025-04-25 13:52] LABS: Hematocrit 32.6 % (37.0-47.0); Hemoglobin 10.1 g/dL (12.0-15.0); Immature Granulocyte Percent A 0.2 % (0-0.5); Lymphocytes Absolute Auto 0.95 K/mm3 (0.9-3.2); Mean Corpuscular HGB Conc 31.0 g/dl (32-36); Mean Corpuscular Hemoglobin 29.1 pg (26-34); Mean Corpuscular Volume 93.9 fl (80-100); Nucleated Red Blood Cells Absolute Auto 0.000 K/mm3 (0.0-0.012); Nucleated Red Blood Cells Perc 0.0 % (0.0-0.2); Platelet Count Result 162 k/mm3 (150-375); Red Blood Count 3.47 M/mm3 (4.2-5.4); White Blood Count 6.3 K/mm3 (4.5-10.0)
[2025-04-25 14:02] LABS: Alanine Aminotransferase 15 U/L (6-35); Albumin Level 4.4 g/dL (3.5-5.1); Alkaline Phosphatase 82 U/L (38-126); Anion Gap 7 mmol/L (4-12); Aspartate Amino Transferase 23 U/L (14-36); Bilirubin,Total 0.5 mg/dL (0.2-1.3); Blood Urea Nitrogen 29 mg/dL (7-17); Calcium 9.6 mg/dL (8.4-10.2); Carbon Dioxide 30 mmol/L (22-30); Chloride 101 mmol/L (98-107); Estimated CRCL calculation 27 ml/min; Estimated Glomerular Filt Rate 35; Glucose 92 mg/dL (65-110); Potassium 3.9 mmol/L (3.4-5.0); Sodium 138 mmol/L (137-145); Total Protein 8.1 g/dL (6.3-8.2)
[2025-04-25 14:03] LABS: INR 3.3; Prothrombin Time 31.9 Seconds (11.1-14.7)
[2025-04-25 14:04] LABS: Partial Thromboplastin Time 35.1 Seconds (22.3-36.8)
[2025-04-25 14:23] VITALS: BP 112/85; PULSE 80; RESP 16; O2SAT 95
[2025-04-25 14:49] VITALS: BP 112/74; PULSE 68; RESP 16; O2SAT 98
== END 2025-04-25 14:50 | disposition home or self-care (01) ==
PROVIDERS: Emergency Provider Emergency Medicine; PCP Family Medicine
DX: R04.0 Epistaxis (principal); I10 Essential (primary) hypertension; I48.91 Unspecified atrial fibrillation; I42.9 Cardiomyopathy, unspecified; E78.5 Hyperlipidemia, unspecified; Z87.891 Personal history of nicotine dependence; Z95.0 Presence of cardiac pacemaker; Z95.2 Presence of prosthetic heart valve; Z79.01 Long term (current) use of anticoagulants; Z79.899 Other long term (current) drug therapy
CPT/HCPCS: 30901; 36415; 80053; 85025; 85610; 85730; 99283; A9270